=== PATIENT | female | born 1970 | race Caucasian/White ===

== ENCOUNTER 2017-02-18 05:20 | Inpatient (IN) | payer OTHER ==
[~2017-02-18] VITALS: Ht 160 cm; Wt 182.4 kg
[~2017-02-18 05:20] MED LIST: ALPRAZOLAM0.5 MG PO; ANTIDEPRESSANT PO; ARMOUR THYROID60 MG PO; BENZONATATE100 MG PO; CARVEDILOL25 MG PO; CEFTIN250 MG PO; CEPHALEXIN500 MG PO; CIPRO500 MG PO; CLINDAMYCIN HC300 MG PO; CLONIDINE HCL0.1 MG PO; COLACE100 MG PO; CYCLOBENZAPRINE10 MG PO; DOXYCYCLINE HY100 MG PO; ERGOCALCIF50000 UNIT PO; ESTRACE2 MG PO; FLOVENT DISKU250 MCG IH; FLOVENT HFA12 G1 INH; HYDROCODON-ACE1 EA10 PO; HYDROMORPHONE HC2 MG PO; IPRAT-ALBUT 0.5-3 ML INH; KLONOPIN2 MG PO; KLOR-CON M2020 MEQ PO; LAMICTAL200 MG PO; LASIX40 MG PO; LASIX80 MG PO; LEVOTHYROXINE75 MCG PO; MINIPRESS1 MG PO; MIRAPEX0.75 MG PO; MIRAPEX1.5 MG PO; NORCO 10-325 T1 EACH PO; NORCO 5-325 TA1 EACH PO; PAROXETINE HCL30 MG PO; PREDNISONE20 MG PO; PRILOSEC OTC20 MG PO; PROVENTIL HFA6.7 GM INH; QVAR8.7 G1 INH; ROBITUSSIN DAC PO; ROBITUSSIN100 MG/5 M PO; VENTOLIN HFA18 GM INH; VIIBRYD40 MG PO; VITAMIN D PO; VITAMIN D250000 UNIT PO; XANAX0.5 MG PO; ZITHROMAX250 MG PO; ZOFRAN ODT4 MG SL; [UNRECOGNIZED DRUG - OTHER] PO
[2017-02-18] MEDS ORDERED: PIOGLITAZONE HC15 MG PO (05:38)
[2017-02-18] MEDS ORDERED: CYMBALTA60 MG PO (05:39)
[2017-02-18] MEDS ORDERED: GLUCOPHAGE500 MG PO (05:40)
[2017-02-18] MEDS ORDERED: LIPITOR10 MG PO (05:40)
--- NOTE | 2017-02-18 07:37 | NUR ---
46 YR OLD FEMALE ADMITTED TO ROOM 129 FROM ER VIA STRETCHER. PT UP IN ROOM AND AMBULATED TO BATHROOM WITH STANDBY ASSIST AND REMAINS ON 4L PER NC. PT VOIDED 250 MLS CLEAR YELLOW URINE, AMBULATED TO BED WITH STANDBY ASSIST AND HOB ELEVATED. MONITOR ON AND VITAL SIGNS COMPLETED. PT C/O OF HEADACHE PAIN "12/08".
--- NOTE | 2017-02-18 08:35 | NUR ---
PT WITH HOB ELEVATED EATING REG BREAKFAST WITHOUT PROBLEMS. STATES NOT SLEEPING WELL LAST NIGHT AND WANTS TO SLEEP.
--- NOTE | 2017-02-18 08:47 | NUR ---
DR. STARKEY IN TO ASSESS PT AND TALK WITH HER CONCERNING THE PLAN OF CARE.
--- NOTE | 2017-02-18 09:52 | NUR ---
RT HERE AND NEB TX GIVEN, PT WITH AUDIBLE WHEEZES. DILTIAZEM 5MG IV PUSH GIVEN PER DR. ORDER AND DILTIAZEM GTT STARTED AT 5MG/HR. CARDIZEM 45MG PO GIVEN WITH A.M. MEDS ORDERED, PT AC WELL WITH SIPS OF WATER. SCD'S ON BILAT LOWER EXTREMITIES. OXYMASK ON WHILE PT SLEEPING, SATS 93% AND HOB ELEVATED 35 DEGREES.
--- NOTE | 2017-02-18 10:01 | NUR ---
R.T. NOTIFIED OF CONTINUED AUDIBLE WHEEZING WHILE SLEEPING, REQUESTING CPAP AT THIS TIME. HR 113, DILTIAZEM GTT INCREASED TO 10MG/HR.
--- NOTE | 2017-02-18 10:48 | NUR ---
PT UP TO BSC WITH ASSIST - VOIDED 625 MLS CLEAR YELLOW URINE. RETURNED TO BED WITH HOB ELEVATED. PT TALKING ON PHONE AT THIS TIME. HR 97 - 105.
--- NOTE | 2017-02-18 12:55 | NUR ---
RT HERE AND NEB TX STARTED, ASSESSMENT COMPLETED - PT STATES HEADACHE PAIN DECREASED TO "3/10". PT PLACED ON 4L PER NC, SATS 93%. LUNGS REMAIN WITH EXP WHEEZES AND RHONCHI THROUGHOUT. PT HAS BEEN RESTING WELL ON CPAP AND AWAKENS EASILY.
--- NOTE | 2017-02-18 13:00 | NUR ---
WAS CALLED BY STAFF IN CCU STATING THAT THE PT FRIENDS HAD BROUGHT IN HER CPAP AND THAT SHE WOULD BE NEEDING A NEW ONE THIS ONE IS REALLY KENNETH, TAPED TOGETHER AND NO FILTERS HAD BEEN CHANGED. INFORMED THEM THAT I WOULD LOOK INTO GETTING HER A NEW ONE.
[2017-02-18] MEDS ORDERED: METFORMIN HCL500 M1 PO (13:25)
--- NOTE | 2017-02-18 13:26 | NUR ---
PT AWAKE AND UP TO BSC WITH ONE PERSON ASSIST. PT VOIDED 300 MLS CLEAR YELLOW URINE. TRANSFERRED SELF TO MANOLO CHAIR AND IS EATING LUNCH WITHOUT PROBLEMS. 02 ON AT 4L PER NC. SATS 92%
[2017-02-18] MEDS ORDERED: OMEPRAZOLE20 MG PO (13:28)
--- NOTE | 2017-02-18 14:23 | NUR ---
HR 79-83 DILTIZEM GTT DECREASED TO 5MG/HR.
--- NOTE | 2017-02-18 14:53 | NUR ---
CARDIZEM 45MG PO GIVEN, DILTIAZEM GTT OFF AT THIS TIME. HR AFIB 72 BPM. PT REMAINS UP IN MANOLO CHAIR TALKING WITH FRIEND.
[2017-02-18] MEDS ORDERED: VYVANSE60 MG PO (16:14)
--- NOTE | 2017-02-18 16:15 | NUR ---
MED REC COMPLETE
--- NOTE | 2017-02-18 17:53 | NUR ---
1600 ASSESSMENT COMPLETED. PT RESTING IN MANOLO CHAIR WITH 02 92% ON 4L PER NC. LUNGS WITH EXP WHEEZES BILAT, PT WITH LOOSE COUGH AT TIMES. HEART RATE REMAINS IN AFIB, 70'S - 80'S. PT EATING DINNER WITHOUT PROBLEMS. NEW ORDERS RECEIVED AND 2 GM MG STARTED IV.
--- NOTE | 2017-02-18 19:11 | NUR ---
PT AMBULATED TO BATHROOM WITH ONE PERSON ASSIST, VOIDED 325 MLS CLEAR YELLOW URINE AND HAD MED SOFT,FORMED,BROWN STOOL. AMBULATED BACK TO BED WITH MINIMAL ASSIST AND IS RESTING WITH HOB ELEVATED & SCD'S ON BILAT. SATS 97% ON 4L PER NC HR 76 AND REMAINS IN AFIB.
--- NOTE | 2017-02-18 19:30 | NUR ---
PT ASSISTED BACK TO BED BY DAY HSROLF RN. REPORT GIVEN BY DAY SHIFT RN. PT RESTING IN BED NOW AT THIS TIME. ALL QUESTIONS ANSWERED. PT REMAINS ON 4L NC. PER REPORT LUNG SOUNDS REMAINS WHEEZY AND COARSE. WILL CONTINUE TO CLOSELY MONITOR. CALL LIGHT IN REACH.
--- NOTE | 2017-02-18 20:00 | NUR ---
PT SLEEPING RESTING WITH EYES CLOSED. WOKE PT AND SPOKE WITH HER REGUARDING MEDICATIONS SHE WILL RECIVE TONIGHT. PT IS AWARE OF CURRENT PLAN AND ON BOARD WITH CURRENT PLAN. PT WANTS TO WAIT TO TAKE MEDS FOR 30 MORE MINUTES. WILL GIVE MEDICATIONS AND CALL RT BACK TO ADMINISTER NEB TREATMENT AND PLACE PT ON CPAP.
--- NOTE | 2017-02-18 20:12 | EKG ---
[facility] [address] [place], [place] [address] Signed Atrial fibrillation with rapid ventricular response Abnormal ECG No previous ECGs available Confirmed by CAMERON STARKEY MD ([id number]) on 02/18/2017 8:12:19 PM Electronically Signed By: CAMERON STARKEY MD 02/18/172011 PATIENT NAME: DEANN JOSÉ SURAJ Electrocardiogram DATE OF : 66 PHYSICIAN: CAMERON STARKEY MD REPORT #: [id number] REPORT IS CONFIDENTIAL AND NOT TO BE RELEASED WITHOUT AUTHORIZATION
--- NOTE | 2017-02-18 21:00 | NUR ---
GAVE NIGHT TIME MEDICATIONS. PT IS READY FOR BREATHING TREATMENT AND CPAP TURNED ON. RT IN TO SEE PATIENT AND COMPLETE THESE TASKS. NO OTHER ISSUES AT THIS TIME. WILL CONTINUE TO MONITOR.
--- NOTE | 2017-02-18 23:00 | NUR ---
PT CALLED TO GET UP TO BATHROOM. PT REMOVED FROM CPAP AND PLACED ON 4L NC. PT TOLERATED WELL. PT BACK IN BED WITH NASAL CANUAL IN PLACE. PT WANTS TO CALL DAUGHTER BACK. WILL PLACE CPAP BACK ON WHEN PT IS FINISHED AND READY.
--- NOTE | 2017-02-18 23:30 | NUR ---
PT BACK ON [facility]OSPITALS CPAP MACHINE. PT TOELRATING WELL. CALL LIGHT IN REACH. WILL CONTINUE TO CLOSELY MONITOR.
--- NOTE | 2017-02-19 00:22 | NUR ---
RT IN TO ASSESS PT. PT ASKING FOR NEB TREATMENT. NEB TREATMENT GIVEN. PT LUNG SOUNDS REMAIN WHEEZY AND COARSE. WILL CONTINUE TO MONITOR.
--- NOTE | 2017-02-19 01:30 | NUR ---
IN TO PT ROOM FOR SCHEDULED MEDICATIONS. PT ASKED FOR TYLENOL FOR HEADACHE. PT STATES HEADACHE IS IMPROVING WITH TYLENOL. PLACED BACK ON CPAP. NO OTHER ISSUES AT THIS TIME. CALL LIGHT IN REACH.
--- NOTE | 2017-02-19 03:00 | NUR ---
PT RESTING IN BED AT THIS TIME ON CPAP MACHINE. PT TOLERATING WELL. WILL CONTINUE TO CLOSELY MONTIOR. CALL LIGHT IN REACH.
--- NOTE | 2017-02-19 05:08 | NUR ---
PT ASKED TO USE RESTROOM. ASSISTED PT UP TO BATHROOM ON 4L NC. PT TOLERATED WELL WITH SPO2 96%. PT HR WITH ACTIVITY 80- 110. PT ABLE TO WALK SELF TO BATHROOM. ASSISTED BACK TO BED. PT DOES NOT WANT CPAP MACHINE BACK ON AT THIS TIME. PT CURRENTLY ON 4L NC AT 99%. TURNED OXYGEN DOWN TO 3L NC AT THIS TIME. WILL CONTINUE TO MONITOR AND TITRATE NEEDED. CALL LIGHT IN REACH.
--- NOTE | 2017-02-19 06:30 | NUR ---
PT RESTING IN BED USING CELLPHONE. PT SPO2 96% ON 3L NC. TURNED OXYGEN DOWN TO 2.5L VIA NC. WILL CONTINUE TO CLOSELY MONITOR. PT ASKED FOR JELLO AND THE MENU TO ORDER BREAKFAST. CALL LIGHT IN REACH.
--- NOTE | 2017-02-19 08:05 | NUR ---
PT AWAKE AND ALERT X4. PT DENIES PAIN, NAUSEA, AND SOB AT THIS TIME. PT CHEERFUL AND COOPERATIVE.
--- NOTE | 2017-02-19 08:30 | NUR ---
PT UP OUT OF BED AMBULATING TO BATHROOM INDEPENDENTLY.
--- NOTE | 2017-02-19 08:45 | NUR ---
PT WASHED FACE, REFUSED ORAL CARE AT THIS TIME, REQUIRED SOME ASSISTANCE WITH TORITO CARE. PT THEN AMBULATED TO CHAIR. LINENS ON BED CHANGED.
--- NOTE | 2017-02-19 08:54 | NUR ---
TURNED PT O2 DOWN TO 2L FROM 2.5L VIA NASAL CANULA
--- NOTE | 2017-02-19 09:15 | NUR ---
PT GIVEN FLU VACCINE IN LEFT UPPER ARM, CONSENT FORM IN THE CHART.
--- NOTE | 2017-02-19 09:26 | NUR ---
PT SITTING UP IN CHAIR EATING BREAKFAST. PT DENIES NAUSEA AND SOB AT THIS TIME. PT IS ALERT AND ORIENTED X4. PT C/O 6/10 PAIN IN BILAT KNEES, 500 MG PO TYLENOL GIVEN. PT ABLE TO AMBULATE INDEPENDENTLY TO BATHROOM, SOME ASSISTANCE REQUIRED WITH TORITO CARE.
--- NOTE | 2017-02-19 10:05 | NUR ---
PT ASSISTED BACK TO BED. SALES SUPPORT ADMINISTRATOR IN ROOM TO PREFORM ECHO. PT AC WELL.
--- NOTE | 2017-02-19 11:02 | NUR ---
CPAP PLACED ON PT PER PT REQUEST. PT STATES "I REALLY NEED A NAP". CALL LIGHT WITHIN REACH. PT DENIES PAIN AT THIS TIME.
--- NOTE | 2017-02-19 12:50 | NUR ---
IV SITE INTACT, NO REDNESS OR SWELLING NOTED, FLUSHES EASILY, PT DENIES PAIN WITH FLUSH. PT VITALS WNL, PT STILL IN RATE CONTROLED AFIB. PT DENIES NAUSEA AND SOB AT THIS TIME, PT STATES PAIN IS "FINE". PT TALKITIVE AND POLITE. WORE CPAP MASK UNTIL 1245. PT LOOKING AT LUNCH MENUE.
--- NOTE | 2017-02-19 15:49 | NUR ---
PT BACK TO ROOM FROM SHOWER. HAIR SHAMPOOED AND ASSISTED PT WITH SKIN CARE. PT SAT IN SHOWER CHAIR FOR SHOWER. ABLE TO STAND WITH ASSISTANCE, AMBULATES WITH STAND BY ASSIST. GOWN CHANGED, CLEAN SOCKS PLACED ON PT. PT AC ACTIVITY WELL.
--- NOTE | 2017-02-19 17:00 | NUR ---
FULL REPORT GIVEN TO MARVIN ALVAREZ.
--- NOTE | 2017-02-19 17:01 | NUR ---
FAXED CHART NOTES TO [facility] WHERE THE PT GETS HER DURABLE MED SUPPLIES FROM INCLUDING FACESHEET, H AND P, PROG NOTE, AND RX FOR A NEW MACHINE. RECIEVED A CALL FROM IN HOME THAT THEY FOUND SHE DID INDEED GET A NEW MACHINE IN 2013 AND ONE IN 2009. AND WAS THIS THE MACHINE FROM 2009 OR 2013. I WENT TO CCU TO TALK WITH PT AND SHE STATED THAT HER MACHINE WORKED JUST FINE AND SHE STILL USES IT ALL THE TIME BUT SHE JUST HADN'T GOTTEN ANY NEW TUBING, MASKS, OR FILTERS IN OVER A YEAR. TUBING AND MASK ARE TAPED TOGETHER WITH SEVERAL DIFFERENT TYPES OF TAPE AND THE FILTER IN THE MACHINE IS BROWN, THE MACHINE ITSELF IS COVERED IN DUST. INFORMED THE PT OF THE NEED TO KEEP THESE CLEAN AND UP TO DATE. ATTEMPTED EDUCATING PT AND ALL SHE WOULD SAY IS I KNOW THAT, I KNOW. I CALLED [facility] AND REEXPLAINED EXACTLY WHAT I NEED--TUBING, MASK, AND FILTER, AND WRITTEN DIRECTIONS FOR HER FOR CLEANING AND CARING FOR THIS MACHINE. PT STATED YEAH I HAD THAT BUT IT WAS A LONG TIME LIKE ALMOST 10 YEARS IT SEEMS LIKE.
--- NOTE | 2017-02-19 17:10 | NUR ---
PT TRANSFERED TO MED-SURG ROOM 125 WITH ASSISTANCE FROM KORY GLEASON.
--- NOTE | 2017-02-19 17:18 | NUR ---
PT RECEIVED FROM CCU. REPORT RECEIVED FROM CCU RN. PT RESTING IN BED. PT LUNG FEEL TIGHT, DENIES SOB, LUNG SOUNDS WITH EXPIRATORY WHEEZE THROUGHOUT DIMINISHED BASES. HR IRREGULAR. PT DENIES NEEDS AT THIS TIME. PT PLANNING TO ORDER DINNER.
--- NOTE | 2017-02-19 18:42 | NUR ---
PT RECEIVED CLAY CCU. PT ON 2L NC, LUNG SOUNDS WHEEZY THROUGHOUT. PT TOLERATING ADA DIET, BLOOD GLUCOSE 202 AT DIINER, GIVEN 3 UNITS SS INSULIN. PT UP ITH 1 PA TO AMBULATE. PT SALINE LOCKED. PT WITH MARGINAL URINE OUTPUT PER REPORT.
--- NOTE | 2017-02-19 19:15 | NUR ---
REPORT RECV'D FROM CHATO ALVAREZ. IN TO MEET PT, PT AWAKE WATCHING TV. CPAP IN ROOM FOR PT USE. PT ON 02 @ 2L. SL IN PLACE. PT IS STANDBY ASSIST TO BATHROOM. PT STATES SHE BELIEVES SHE WILL BE GOING HOME TOMORROW. NO FURTHER NEEDS AT THIS TIME. CALL LIGHT IN REACH.
--- NOTE | 2017-02-19 21:15 | NUR ---
IN TO SEE PT, PT AWAKE. ASSESSMENT DONE, PM MEDICATIONS GIVEN. PT STATES SHE WILL CALL WHEN SHE IS READY FOR CPAP PLACEMENT. NO FURTHER NEEDS AT THIS TIME. CALL LIGHT IN PLACE.
--- NOTE | 2017-02-20 00:34 | NUR ---
IN TO CHECK ON PT, PT APPEARS TO BE SLEEPING. CPAP IN PLACE. RR EVEN AT 16 AND UNLABORED. NO APPARENT DISTRESS NOTED. CALL LIGHT IN PLACE.
--- NOTE | 2017-02-20 01:15 | NUR ---
PT CALLED, IN TO CHECK ON PT. CPAP REMOVED, PT UP TO BATHROOM WITH STANDBY ASSIST. TOLERATED WELL. ASSISTED BACK TO BED. CPAP AND SCDS PLACED. NO FURTHER NEEDS AT THIS TIME. CALL LIGHT WITH IN REACH.
--- NOTE | 2017-02-20 05:14 | NUR ---
PT HAS HAD UNEVENTFUL SHIFT, SLEPT WELL. CPAP IN PLACE. PT ON O2 @ 2L PER NC WHILE AWAKE. LUNG SOUND UNCHANGED. PT ON ADA DIET. CBG 226. SL. VOIDING QS. PT 1 PERSON STANDBY ASSIST TO BATHROOM, TOLERATES WELL.
--- NOTE | 2017-02-20 07:27 | NUR ---
RECIEVED BEDSIDE REPORT FROM KIM TORRES AND KIM SEAY. PT AWAKE AND ALERT IN CHAIR. PT HAS O2 AT 2L VIA NASAL CANULA. NO COMPLAINTS AT THIS TIME.
[2017-02-20] MEDS ORDERED: IPRAT-ALBUT 0.5-3 ML INH (10:25)
[2017-02-20] MEDS ORDERED: PREDNISONE20 MG PO (10:25)
[2017-02-20] MEDS ORDERED: DILTIAZEM 24HR240 M3 PO (10:26)
[2017-02-20] MEDS ORDERED: WARFARIN SODIUM5 MG PO (10:29)
--- NOTE | 2017-02-20 11:31 | NUR ---
CONSULT RECEIVED TO PROVIDE DIET EDUCATION WHILE ON COUMADIN. PATIENT JUST STARTED ON COUMADIN. I EXPLAINED THE DARK GREEN VEGGIES THAT ARE HIGHEST IN VITAMIN K - SHE DOESN'T EAT ANY OF THEM. I POINTED OUT THE MODERATELY-HIGH VITAMIN K VEGGIES AND SHE DOESN'T EAT ANY OF THOSE EITHER. SHE DOES TAKE A MVI CURRENTLY. SHE DOES NOT TAKE ANY HERBAL SUPPLEMENTS. SINCE SHE DOES NOT NORMALLY EAT THE LEAFY GREEN/DARK GREEN VEGGIES LISTED, SHE WILL DO FINE. HANDOUT PROVIDED. MY OFFICE # PROVIDED WELL IN CASE FUTURE QUESTIONS ARISE.
--- NOTE | 2017-02-20 11:53 | NUR ---
PT OUT OF THE SHOWER, TOLERATED WELL. NYSTATIN POWDER APPLIED TO SKIN FOLDS. PT VERBALIZED UNDERSTANDING OF COUMADIN AND COUMADIN TEACHING BY DIETIAN. PT GETTING DRESSED AND READY TO BE D/C. SHE WILL EAT LUNCH HERE PRIOR TO D/C.
--- NOTE | 2017-02-20 12:23 | NUR ---
PATIENT TOOK A SHOWER BEFORE DISCHARGING.
[2017-06-06] MEDS ORDERED: QVAR8.7 G1 (17:00)
[2017-06-06] MEDS ORDERED: QVAR8.7 G1 INH (17:00)
== END 2017-02-20 13:02 | disposition home or self-care (01) | DRG 202 ==
LOC: ED 05:20 → CCU 07:02 → MS 02-19 17:10
PROVIDERS: ADMIT Internal Medicine
DX: J45.41 Moderate persistent asthma with (acute) exacerbation (principal); J96.01 Acute respiratory failure with hypoxia; E66.2 Morbid (severe) obesity with alveolar hypoventilation; Z68.45 Body mass index [BMI] 70 or greater, adult; I48.91 Unspecified atrial fibrillation; I10 Essential (primary) hypertension; E11.9 Type 2 diabetes mellitus without complications; Z79.4 Long term (current) use of insulin; K21.9 Gastro-esophageal reflux disease without esophagitis; G47.33 Obstructive sleep apnea (adult) (pediatric); F32.9 Major depressive disorder, single episode, unspecified; G89.4 Chronic pain syndrome; Z79.891 Long term (current) use of opiate analgesic; E03.9 Hypothyroidism, unspecified; E78.5 Hyperlipidemia, unspecified; G25.81 Restless legs syndrome; Z72.0 Tobacco use; Z99.81 Dependence on supplemental oxygen
CPT/HCPCS: 36600; 71010; 80053; 82803; 83735; 83880; 85025; 85610; 90674; 93005; 93010; 93306; 94640; 94645; 94660; 94668; 94762; 96374; 99285; G0008; J1650; J2930; J3475

== ENCOUNTER 2017-03-28 20:33 | Emergency (ER) | payer OTHER ==
[~2017-03-28] VITALS: Ht 160 cm; Wt 175.1 kg
[~2017-03-28 20:33] MED LIST changes: +CYMBALTA60 MG PO; +DILTIAZEM 24HR240 M3 PO; +GLUCOPHAGE500 MG PO; +LIPITOR10 MG PO; +METFORMIN HCL500 M1 PO; +OMEPRAZOLE20 MG PO; +PIOGLITAZONE HC15 MG PO; +VYVANSE60 MG PO; +WARFARIN SODIUM5 MG PO
[2017-03-28] MEDS ORDERED: CYCLOBENZAPRINE10 MG PO (21:49)
[2017-03-28] MEDS ORDERED: DICLOFENAC SODI75 MG PO (21:49)
[2017-06-06] MEDS ORDERED: QVAR8.7 G1 INH (17:00)
[2017-06-06] MEDS ORDERED: QVAR8.7 G1 (17:00)
== END 2017-03-28 22:05 | disposition home or self-care (01) ==
LOC: ED 20:33
DX: M54.5 Low back pain (principal); J45.909 Unspecified asthma, uncomplicated; E66.01 Morbid (severe) obesity due to excess calories; F41.9 Anxiety disorder, unspecified; F32.9 Major depressive disorder, single episode, unspecified; E03.9 Hypothyroidism, unspecified; F17.200 Nicotine dependence, unspecified, uncomplicated; Z98.84 Bariatric surgery status; Z90.710 Acquired absence of both cervix and uterus; Z88.0 Allergy status to penicillin; Z88.2 Allergy status to sulfonamides; Z88.5 Allergy status to narcotic agent; Z79.899 Other long term (current) drug therapy; Z79.84 Long term (current) use of oral hypoglycemic drugs
CPT/HCPCS: 81001; 99283

== ENCOUNTER 2017-06-06 15:10 | Observation (INO) | payer OTHER ==
[~2017-06-06] VITALS: Ht 160 cm; Wt 189.2 kg
--- OUTSIDE RECORDS SUMMARY | ~2017-06-06 | XMS | Clinical Summary ---
Demographics + + + | Address | [address] | | | [place] [address] | + + + | Home Phone | | + + + | Preferred Language | Unknown | + + + | Marital Status | Single | + + + | Taoist Affiliation | NON | + + + [...] | Unavailable | + + + Support +------+ +---------+ + | Name | Relationship | Address | Phone | +------+ +---------+ + ECON | Unknown | Unavailable | +------+ +---------+ + Care Team Providers + +------+-------+ | Care Dietary Assistant Name | Role | Phone | + +------+-------+ | Bassam Ross DO | PP | tel | + +------+-------+ Source Comments SHERIE is fully live on both [facility] and [facility].Formerly [facility] Allergies + + + + + + [...] | | | + + +---------+---------+------+------+-------+ | thyroid (ARMOUR | Take 60 mg by mouth | | | | | Activ | | THYROID) 60 mg oral | once daily. | | | | | e | | tablet tablet | | | | | | | + + +---------+---------+------+------+-------+ | cloNIDine | Take 0.3 mg by mouth | | | | | Activ | | (CATAPRES) 0.1 mg | two times daily. | | | | | e | | oral tablet | | | | | | | + + +---------+---------+------+------+-------+ | CARVEDILOL ORAL | Take 50 mg by mouth | | | | | Activ | | | two times daily. | | | | | e | + + +---------+---------+------+------+-------+ | Pramipexole | Take 0.75 mg by | | | | | Activ | | (MIRAPEX) 0.75 mg | mouth two times | | | | | e | | oral tablet | daily. | | | | | | + + +---------+---------+------+------+-------+ | ALPRAZolam 0.5 mg | Take by mouth. | | | | | Activ | | oral tablet | | | | | | e | + + +---------+---------+------+------+-------+ | cyclobenzaprine 10 | Take 10 mg by mouth | | | | | Activ | | mg oral tablet | three times daily as | | | | | e | | | needed. Do not use | | | | | | | | longer than 2-3 | | | | | | | | weeks. | | | | | | + + +---------+---------+------+------+-------+ | albuterol 90 | Inhale every four | | | | | Activ | | mcg/actuation | hours as needed. | | | | | e | | inhalation HFA | | | | | | | | aerosol inhaler | | | | | | | + + +---------+---------+------+------+-------+ | acetaminophen 325 | Take 2 tablets by | 100 | 0 | 08/2 | | Activ | | mg oral tablet | mouth every six | tablet | | 7/20 | | e | | | hours as needed for | | | 15 | | | | | pain. Cut tablet | | | | | | | | into small pieces. | | | | | | | | Do not crush. | | | | | | + + +---------+---------+------+------+-------+ | HYDROmorphone 4 mg | Take 0.5-1 tablets | 75 | 0 | 09/1 | | Activ | | oral tablet | by mouth every four | tablet | | 0/20 | | e | | | hours as needed for | | | 15 | | | | | severe pain. | | | | | | + + +---------+---------+------+------+-------+ | fluconazole | Take 1 tablet by | 1 | 0 | 09/1 | | Activ | | (DIFLUCAN) 200 mg | mouth once daily. | tablet | | 7/20 | | e | | oral tablet | | | | 15 | | | + + +---------+---------+------+------+-------+ | HYDROmorphone | Take 1 tablet by | 50 | 0 | 01/30 | | Activ | | (DILAUDID) 4 mg oral | mouth every four | tablet | | 12/18 | | e | | tablet | hours as needed for | | | 15 | | | | | severe pain. | | | | | | + + +---------+---------+------+------+-------+ | ergocalciferol | Take 1 capsule by | 52 | 0 | / | | Activ | | 50,000 unit oral | mouth every seven | capsule | | 12/18 | | e | | capsuleIndications: | days. Indications: | | | 16 | | | | Vitamin D Deficiency | VITAMIN D DEFICIENCY | | | | | | | (High Dose Therapy) | (HIGH DOSE THERAPY) | | | | | | + + +---------+---------+------+------+-------+ | cyanocobalamin, | Place 500 mcg under | 30 | 11 | 10/30 | | Activ | | vitamin B-12, 500 | tongue once daily. | tablet | | 5/20 | | e | | mcg sublingual | Indications: | | | 16 | | | | tablet, | Prevention of | | | | | | | sublingualIndication | Vitamin B12 | | | | | | | s: Prevention of | Deficiency | | | | | | | Vitamin B12 | | | | | | | | Deficiency | | | | | | | + + +---------+---------+------+------+-------+ | ped multivit | Chew and swallow 2 | 60 | 11 | 10/30 | | Activ | | #43-iron fumarate | tablets once daily. | tablet | | 10/18 | | e | | (FLINTSTONES | | | | 16 | | | | COMPLETE, IRON,) 18 | | | | | | | | mg iron oral | | | | | | | | tablet,chewable | | | | | | | + + +---------+---------+------+------+-------+ | calcium citrate | Take 2 tablets by | 180 | 11 | 10/30 | | Activ | | 200 mg elemental | mouth three times | tablet | | 20 | | e | | (950 mg total salt) | daily. | | | 16 | | | | oral tablet | | | | | | | + + +---------+---------+------+------+-------+ | ergocalciferol | Take 1 capsule by | 12 | 0 | 10/30 | | Activ | | 50,000 unit oral | mouth every seven | capsule | | 520 | | e | | capsule | days. | | | 16 | | | + + +---------+---------+------+------+-------+ | omeprazole 20 mg | Take 1 tablet by | 30 | 11 | 10/30 | | Activ | | oral tablet,delayed | mouth once daily. | tablet | | 10/18 | | e | | release | Indications: | | | 16 | | | | (/EC)Indications: | HEARTBURN | | | | | | | Heartburn | | | | | | | + + +---------+---------+------+------+-------+ Active Problems + + + | Problem | Noted Date | + + + | S/P laparoscopic sleeve gastrectomy | 02/25/2016 | + + + | Vitamin D deficiency disease | 02/25/2016 | + + + | Morbid obesity with BMI of 60.0-69.9, adult (HCC) | 02/25/2016 | + + + | B12 nutritional deficiency | 11/14/2015 | + + + | Abnormal intestinal absorption | 11/14/2015 | + + + | Vitamin D deficiency | 11/14/2015 | + + + | Gastroesophageal reflux disease | 11/14/2015 | + + + | S/P laparoscopic sleeve gastrectomy | 08/08/2015 | + + + | ANNABEL on CPAP | 08/08/2015 | + + + | Essential hypertension | 08/08/2015 | + + + | Type 2 diabetes mellitus without complication (HCC) | 08/08/2015 | + + + | Morbid obesity (HCC) | 08/08/2015 | + + + | Chronic pain | 08/08/2015 | + + + | Vitamin D deficiency disease | 08/08/2015 | + + + | Vitamin B 12 deficiency | 08/08/2015 | + + + | Physical deconditioning | 08/08/2015 | + + + | S/P laparoscopic sleeve gastrectomy | 06/26/2015 | + + + | Physical deconditioning | 06/26/2015 | + + + | ANNABEL (obstructive sleep apnea) | 06/26/2015 | + + + | Chronic pain | 06/26/2015 | + + + | Morbid obesity (HCC) | 06/26/2015 | + + + | Morbid obesity (HCC) | 02/15/2015 | + + + | Diabetes mellitus type 2, diet-controlled (HCC) | 02/15/2015 | + + + | S/P laparoscopic sleeve gastrectomy | 02/15/2015 | + + + | S/P laparoscopic sleeve gastrectomy | 02/15/2015 | + + + | Morbid obesity (HCC) | 02/15/2015 | + + + | ANNABEL on CPAP | 02/15/2015 | + + + | Benign essential HTN | 02/15/2015 | + + + | Type 2 diabetes mellitus without complication (HCC) | 02/15/2015 | + + + | Vaginal yeast infection | 02/15/2015 | + + + | S/P laparoscopic sleeve gastrectomy | 02/15/2015 | + + + | Morbid obesity (HCC) | 02/15/2015 | + + + | ANNABEL on CPAP | 02/15/2015 | + + + | Benign essential HTN | 02/15/2015 | + + + | Type 2 diabetes mellitus without complication (HCC) | 02/15/2015 | + + + | Vaginal yeast infection | 02/15/2015 | + + + | CPAP/BiPAP dependence | 02/07/2015 | + + + | Essential hypertension, benign | 02/07/2015 | + + + | ANNABEL (obstructive sleep apnea) | 02/07/2015 | + + + | Posttraumatic stress disorder | 10/11/2013 | + + + | Major depressive disorder, recurrent episode, moderate ([facility]) | 10/11/2013 | + + + | Morbid obesity with BMI of 70 and over, adult ([facility]) | 09/22/2013 | + + + | Sleep apnea | 09/22/2013 | + + + | Chronic pain | 09/22/2013 | + + + | Asthma | 09/22/2013 | + + + | Nephrotic syndrome | 09/22/2013 | + + + | Hx of laparoscopic gastric banding | 09/22/2013 | + + + Family History + + +------+ + | Medical History | Relation | Name | Comments | + + +------+ + | Diabetes | Father | | | + + +------+ + | Heart Disease | Father | | [place] 78 | + + +------+ + | [...] Pressure | 141/83 | 02/25/2016 3:17 PM PDT | + + + + | Pulse | 119 | 02/25/2016 3:17 PM PDT | + + + + | Temperature | 36.8 C (98.2 F) | 02/25/2016 3:17 PM PDT | + [...] (384 lb 6.4 | 02/25/2016 3:17 PM PDT | | | oz) | | + + + + | Height | 160 cm (5' 3") | 02/25/2016 3:17 PM PDT | + + + + | Body Mass Index | 68.09 | 02/25/2016 3:17 PM PDT | + + + + Plan of Treatment +--------+---------+ + + + | Date | Type | Specialty | Care Team | Description | +--------+---------+ + + + | 06/16/ | Office | | Mihaela Villa, | | | 2017 | Visit | | JAYJAY [address] | | | | | | [address] | | | | | | [place], [place] | | | | | | [address] | | +--------+---------+ + + + | 06/16/ | Office | | Hansa Hawkins, | | | 2017 | Visit | | SUBHA [address] | | | | | | [place], [place] | | | | | | [address] | | | | | | [phone] | | | | | | | | +--------+---------+ + + + + + + + + | Health Maintenance | Due Date | Last Done | Comments | + + + + + | INFLUENZA VACCINE | | 03/10/2016, 03/01/2015, | | | (FLU SHOT) | 7 | 02/21/2013 | | + + + + + [...] | Dianelys De Leon | | | 2017 | C60A / | | Dori Reed MD | | n | | | | | | | | | | | | /[id number] | | | | | | | | 329 | + +------+--------+ +--------+--------+--------+ | Dion Deraslanted: Qty: | | N/A: | | | 08/29/ | [id number] | | 2 on 02/07/2015 by Dianelys Reed | | | 2017 | C60A / | | Dori Ferris MD | | n | | | | | | | | | | | | /[id number] | | | | | | | | 327 | + +------+--------+ +--------+--------+--------+ Results Not on filefrom Last 3 Months
[~2017-06-06 15:10] MED LIST changes: +DICLOFENAC SODI75 MG PO
[2017-06-06] MEDS ORDERED: DESVENLAFAXINE50 M2 PO (16:47)
[2017-06-06] MEDS ORDERED: DILTIAZEM 24HR300 M1 PO (16:48)
[2017-06-06] MEDS ORDERED: MINIPRESS1 MG PO (16:58)
[2017-06-06] MEDS ORDERED: QVAR8.7 G1 INH ×2 (17:00)
--- NOTE | 2017-06-06 20:30 | NUR ---
PT SITTING UP IN RECLINER EATING POPCYCLE. IN GOOD SPIRITS, ENCOURAGED TO ELEVATE LEGS, WATCHING TV. CALL LIGHT IN EASY REACH.
--- NOTE | 2017-06-06 21:00 | NUR ---
PT UP IN ROOM INDEP, HS CARES DONE, SCHEDULED MEDS TAKEN, MAG INFUSING. EATING BAG OF POTATOE CHIPS.DISCUSSED ADA DIET, PT STATES SHE FOLLOWS IT AND HAS ASKED DOCTOR TO CHECK HER HGA1C IN THE MORNING. DENIES FURTHER NEEDS. HRIR 95-105.
--- NOTE | 2017-06-06 23:00 | NUR ---
PT IS RESTING QUIETLY ON BED WEARING BIPAP. HRIR 90'S. CALL LIGHT IN EASY REACH.
--- NOTE | 2017-06-07 01:38 | NUR ---
PT AWAKE, WALKING IN HALLWAY, UNABLE TO SLEEP DUE TO MUSCLE SPASMS IN LEGS, ASKING IF SHE CAN HAVE FLEXERIL. STATES SHE HAS TO TAKE IT AT HOME. CALL PLACED TO DR STARKEY AND HE GAVE ORDER FOR HER TO HAVE FLEXERIL 10MG PO Q8HRS PRN.
--- NOTE | 2017-06-07 04:31 | NUR ---
PATIENT RESTING COMFORTABLY IN BED, BREATHING IS EVEN AND UNLABORED ON CPAP. CALL LIGHT WITHIN REACH.
--- NOTE | 2017-06-07 05:30 | NUR ---
PT IS INDEP IN ROOM, SLEEP INTERMITANT DUE TO LEG SPASMS, RECIEVED ORDER FOR FLEXERIL AND PT SLEPT WELL AFTER. TELE #9 HRIR 70-80 ASLEEP, 90-105 AWAKE, SOME ANXIETY AND TEARFUL EARLY IN SHIFT, ENC TO KEEP LEGS ELEVATED WHEN SITTING IN CHAIR, 2+ EDEMA LES, RED SCALING SKIN, STATES SHE HAS CHRONIC LYPHEDEMA. DOXYCYCLINE FOR CELLULITIS ORDERED.NON COMPLIANT WITH DIET. COOPERTIVE AND PLEASANT.
--- NOTE | 2017-06-07 07:16 | NUR ---
RECIEVED BEDSIDE REPORT FROM RAUL Ferris RN. PT DENIED NEEDS AT THIS TIME.
--- NOTE | 2017-06-07 07:30 | NUR ---
PT WAS IN BED, SHE SAID SHE WOULD ORDER HER OWN BREAKFAST, AND THEN NEEDED TO USE THE RESTROOM.
--- NOTE | 2017-06-07 08:06 | NUR ---
PT SITTING UP IN RECLINER, LEGS ELEVATED, EATING BREAKFAST.
--- NOTE | 2017-06-07 08:53 | NUR ---
PATIENT UP TO AMBULATE IN HALLWAY. HR HIGH 140. CALL TO CCU TO PASS THIS ALONG TO DR. STARKEY. CALL BACK FROM CCU THAT DR. STARKEY WANTS HER MEDICATIONS GIVEN, WAIT 2 HOURS AND THEN WALK AGAIN.
--- NOTE | 2017-06-07 09:23 | NUR ---
PT WAS IN CHAIR, I DID VITALS, SHE NEEDD NO OTHER ASSISTANCE.
--- NOTE | 2017-06-07 10:38 | NUR ---
PT UP TO BATHROOM, NOTED HR UP TO 144, CHECKED ON PT, WHO WAS SITTING ON TOILET, PT DENIED CHEST PAIN OR PRESSURE. PT ASSISTED BACK TO BED WITH STANDBY ASSIST. PT C/O 6/10 PAIN TO KNEES, 7/10 PAIN TO BACK, GAVE PRN ACETAMINOPHEN 500 MG PO AND PRN FLEXARIL 10 MG PO. PT RESTING IN BED.
--- NOTE | 2017-06-07 10:42 | NUR ---
PT'S HR DOWN TO 90-94 PER TELEMETRY NOW THAT PT IS AT REST IN BED.
[2017-06-07] MEDS ORDERED: DOXYCYCLINE HY100 MG PO (11:44)
[2017-06-07] MEDS ORDERED: CARDIZEM LA360 MG PO (11:48)
[2017-06-07] MEDS ORDERED: METFORMIN HCL1000 MG PO (11:49)
[2017-06-07] MEDS ORDERED: WARFARIN SODIUM5 MG PO (11:51)
--- NOTE | 2017-06-07 12:15 | NUR ---
THIS RN AND KAI, PHARMACIST IN ROOM WITH PT. PT IS DISCHARGING TO HOME AFTER SHE TAKES CARDIZEM AT 1300. IV D/C'D WNL. KAI, PHARMACIST GIVING PT EDUCATION REGARDING MEDICATIONS THAT SHE WILL DISCHARGE ON.
--- NOTE | 2017-06-07 13:39 | NUR ---
PT WAS GETTING READY TO DC HOME, WILL DO DC VITALS WHEN HER RIDE GETS HERE.
--- NOTE | 2017-06-08 23:47 | EKG ---
[facility] [address] [facility] [place] [address] Signed Atrial fibrillation with rapid ventricular response Low voltage QRS Abnormal ECG When compared with ECG of 18-FEB-2017 06:03, No significant change was found Confirmed by CAMERON STARKEY MD ([id number]) on 06/08/2017 11:46:54 PM Electronically Signed By: CAMERON STARKEY MD 06/08/17 2347 PATIENT NAME: DEANN JOSÉ SURAJ Electrocardiogram DATE OF : 66 PHYSICIAN: CAMERON STARKEY MD REPORT #: [id number] REPORT IS CONFIDENTIAL AND NOT TO BE RELEASED WITHOUT AUTHORIZATION
[2017-08-16] MEDS ORDERED: EMVERM100 MG PO (22:24)
[2017-08-16] MEDS ORDERED: ONDANSETRON ODT4 MG SL (22:24)
[2017-09-01] MEDS ORDERED: COUMADIN5 MG PO (15:14)
== END 2017-06-07 14:05 | disposition home or self-care (01) ==
LOC: ED 15:10 → MS 15:12
PROVIDERS: ADMIT Internal Medicine
DX: I48.91 Unspecified atrial fibrillation (principal); L03.115 Cellulitis of right lower limb; E66.01 Morbid (severe) obesity due to excess calories; Z68.45 Body mass index [BMI] 70 or greater, adult; K21.9 Gastro-esophageal reflux disease without esophagitis; J45.40 Moderate persistent asthma, uncomplicated; G47.33 Obstructive sleep apnea (adult) (pediatric); E03.9 Hypothyroidism, unspecified; G25.81 Restless legs syndrome; F41.9 Anxiety disorder, unspecified; E11.9 Type 2 diabetes mellitus without complications; Z66 Do not resuscitate; Z88.5 Allergy status to narcotic agent; Z88.0 Allergy status to penicillin; Z88.2 Allergy status to sulfonamides; Z79.51 Long term (current) use of inhaled steroids; Z79.899 Other long term (current) drug therapy; Z79.84 Long term (current) use of oral hypoglycemic drugs; Z79.1 Long term (current) use of non-steroidal anti-inflammatories (NSAID)
CPT/HCPCS: 36415; 71046; 80053; 81001; 83036; 83735; 84484; 85025; 85610; 93005; 93010; 94640; 96365; 96366; 96372; 96374; 96375; 99285; G0378; J1650; J3475

== ENCOUNTER 2017-08-04 12:52 | Inpatient (IN) | payer OTHER ==
[~2017-08-04] VITALS: Ht 160 cm; Wt 204.1 kg
--- OUTSIDE RECORDS SUMMARY | ~2017-08-04 | XMS | Encounter Summary ---
Demographics + + + | Address | [address] | | | [place] [address] | + + + | Home Phone | | + + + | Preferred Language | Unknown | + + + | Marital Status | Single | + + + | Bahai Affiliation | NON | + + + | Race | White | + + + | Ethnic Group | Not or | + + + Author + + + | Author | [facility] | + + + | Organization | [facility] | + + + | Address | Unknown | + + + | Phone | Unavailable | + + + Support + + +---------+ + | Name | Relationship | Address | Phone | + + +---------+ + | Jordan Aguirre | ECON | Unknown | Unavailable | + + +---------+ + Care Team Providers + +------+ + | Care Microsoft Office Instructor Name | Role | Phone | + [...] | | | | | type | [address] | [address] | | | | | Gastroesopha | Phone: | Phone: | | | | | geal reflux | [phone] | [phone] | | | | | disease, | Fax: | Fax: | | | | | esophagitis | [phone] | [phone] | | | | | presence not [...] | | | | Sleep apnea, | [place], | Physicians | | | | | unspecified | [place] | Pavilion | | | | | type | [address] | Physicians | | | | | Gastroesopha | Phone: | Pavilion | | | | | geal reflux | [phone] | [place], [place] | | | | | disease, | Fax: | [address] | | | | | esophagitis | [phone] | Phone: | | | | | presence not | | [phone] | | | | | specified | | Fax: | | | | | Vitamin D | | [phone] | | | | | deficiency | [...] | | | | | | | [address] | | | | | | | for Health | | | | | | | and Healing, | | | | | | | 6th floor | | | | | | | [place], [place] | | | | | | | [address] | | | | | | | Phone: | | | | | | | [phone] | | | | | | | Fax: | | | | | | | [phone] | + +--------+ + + + + Encounter Details +--------+---------+ + + + | Date | Type | Department | Care Team | Description | +--------+---------+ + + + | 06/16/ | Office | Digestive Health | Hansa Hawkins, | S/P laparoscopic | | 2018 | Visit | Center at [facility] 6th | AGACNP [address] | sleeve gastrectomy | | | | Floor [address] | Ave [place], [place] | (Primary Dx); | | | | Ave Mailcode: CH4S | [phone] | Essential | | | | [facility] | | hypertension, | | | | and Healing, 6th | | benign; Sleep apnea, | | | | floor [place], [place] | | unspecified type; | | | | [address] | | Gastroesophageal | | | | [...] | | | | adult ([facility]); | | | | | | Diabetes mellitus | | | | | | type 2, | | | | | | diet-controlled | | | | | | ([facility]) | +--------+---------+ + + + Social [...] PM PST-start journaling food intake again, download FanBridge samuel. -make appt with Mihaela for nutritional [...] a "partial sleeve". Activity: Walking daily, with gnosticism friends. Fluids: getting 64 oz fluid daily. [...] echo and chest xray findings. Followed by community services manager in [place]. Shortness of breath Thyroid disease Past Surgical History Procedure Laterality Date C section 1998 Tonsillectomy 1996 Knee surgery 1996 Gastric banding 2004, 2007, 2011 Skin and subcutaneous tissue surgery 2006 Foot surgery 2009 - 2010 3x Hysterectomies, vaginal 2009 Appendectomy for ruptured appendix with abscess 2012 Gallbladder surgery 2008 Laparotomy 07/2014 Laparoscopic sleeve gastrectomy 02/07/2015 [facility] Brianna Social History Social History Marital [...] sinus rhythm. Normal ECG Records reviewed from [facility] (see media tab): Echocardiogram 11/18/2013: 1. Sinus [...] There is no pericardial effusion.21. No mass [id number]. Po or visualization. Definity was used to opacify the left ventricular chamber and improve deli neation of the endocardial border. Family History Problem Relation Diabetes Father Hypertension Mother Obesity Mother Hypertension Father Heart Disease Father [place] 78 Allergies Allergies Allergen Reactions Advair Diskus [...] is having daily. -I suggested making another valet manager appt for next month to discuss possible [...] to plan and will call and/or send Mobile [employer] message if any issues. Start time 314, end time 349. I spent a total of 35 minutes face to face with this patie nt. Over 50% of visit was in counseling. MILAD Rodriguez-RENETTA Bariatric Surgery Nurse Practitioner [facility] | [id number] [address] | [place] | [address] | in this encounter Plan of Treatment +--------+---------+ + + + | Date | Type | Specialty | Care Team | Description | +--------+---------+ + + + | 01/08/ | Office | Cardiology | Juan Antonio Mclaughlin, | | | 2017 | Visit | | MD Elvin Dee | | | | | | [address] | | | | | | [place], [place] | | | | | | [address] | | | | | | [phone] | | | | | | | [...] | + + + | Blood | [facility], SPECIAL IMM + COAG [address] [facility] | | | [place] [address] | + + + + + | Narrative | + + | Alternate forms of testing such as fructosamine should be considered for | | monitoring seam steamer glycemic control in patients with: Increased red [...] | + + + | Blood | [facility], CORE [address] [facility] | | | [place] [address] | + + + + + | [...] | + + + | Blood | [facility], CORE [address] [place] [address] | | | [place] [address] | + + + BASIC METABOLIC SET [...] | >60 | >60 mL/min | | LIBER[place] | | | + + + + | EGFR NON | >60 | >60 mL/min | | -LIBERIAN | | | + + + + [...] | + + + | Blood | [facility], CORE [address] | | | [place] [address] | + + + + + | [...] | | ------ CBC (HEMOGRAM) | | ONLY[[id number]] Abnormal Final | | result Please view [...] characteristics | | | | determined by FileString. See | | | | Compliance Statement B: | | | | Womply/CSPerformed by [facility] | | | | [address] [address] | | | | [phone].Womply, Iker Angelo, | | | | Katherin BECKHAM. Director | | + + + + + + + | Specimen | Performing Laboratory | + + + | Blood | [facility] UNIV PTH - INTFC [address] [facility] | | | [place] [address] | + + + VITAMIN D, 25-HYDROXY, SERUM (06/16/2017 4:22 PM) + +-------+ + | Component | Value | Ref Range | + +-------+ + | VITAMIN D 25 HYDROXY | 44.8 | 30 - 80 ng/mL | + +-------+ + + + + | Specimen | Performing Laboratory | + + + | Blood | [facility], CORE [address] [facility] | | | [place] [address] | + + + + + | [...] | + + + | Blood | [facility], CORE [address] [facility] | | | [place] [address] | + + + PTH, SERUM (06/16/2017 4:22 PM) + +-------+ + | Component | Value | Ref Range | + +-------+ + | PTH, SERUM | 52 | 18 - 88 pg/mL | + +-------+ + + + + | Specimen | Performing Laboratory | + + + | Blood | [facility], CORE [address] [facility] | | | [place] [address] | + + + + + | [...]
--- OUTSIDE RECORDS SUMMARY | ~2017-08-04 | XMS | Clinical Summary ---
Demographics + + + | Address | [address] | | | [place] [address] | + + + | Home Phone | | + + + | Preferred Language | Unknown | + + + | Marital Status | Single | + + + | Rastafari Affiliation | NON | + + + [...] Team Providers + +------+ + | Care Store Product Demonstrator Name | Role | Phone | + +------+ + | Bassam Ross DO | PP | | + +------+ + Source Comments SHERIE is fully live [facility] both [facility] and [facility] InPatient.[facility] Allergies + + + + + + [...] Morbid obesity with BMI of 60.0-69.9, adult ([facility]) | 02/25/2016 | + + + | [...] | | | | | | adult ([facility]); | | | | | | Diabetes mellitus | | | | | | type 2, | | | | | | diet-controlled | | | | | | ([facility]) | +--------+ + + + + | [...] | | | | | | adult ([facility]); | | | | | | Diabetes [...] | Heart Disease | Father | | [place] 78 | + + +------+ + | [...] | | 2018 | Visit | | [address] [facility] | | | | | | [address] | | | | | | [place], [place] | | | | | | [address] | | | | | | [phone] | | | | | | | [...] | | | | | | | /[address] | | | | | | | | [address] | + +------+--------+ +--------+--------+--------+ | Dion Velamplanted: Qty: | | N/A: | | | 08/29/ | BSGE | | 2 on 02/07/2015 by Dianelys Reed | | | 2018 | [id number] / | | Dori Ferris MD | | n | | | | | | | | | | | | /[address] | | | | | | | | 327 | + +------+--------+ +--------+--------+--------+ Procedures + +--------+ + + + | Procedure Name | Priori | Date/Time | Associated Diagnosis | Comments | | | ty | | | | + +--------+ + + + | [place] MNT RE-ASSESSMNT | Routin | 06/17/2017 | [...] | + + + | Blood | [facility], CORE [address] [place] [address] | | | [place] [address] | + + + VITAMIN B1, WHOLE [...] characteristics | | | | determined by eCircle. See | | | | Compliance Statement B: | | | | SampleBoard/CSPerformed by [employer] | | | | [facility],[address] [place] [address],[place] [address] | | | | [phone].SampleBoard, Iker Angelo, | | | | , Lab. Director | | + + + + + + + | Specimen | Performing Laboratory | + + + | Blood | [facility] - INTFC [address] [facility] | | | [place] [address] | + + + VITAMIN D, 25-HYDROXY, SERUM (06/16/2017 4:22 PM) + +-------+ + | Component | Value | Ref Range | + +-------+ + | VITAMIN D 25 HYDROXY | 44.8 | 30 - 80 ng/mL | + +-------+ + + + + | Specimen | Performing Laboratory | + + + | Blood | [facility], CORE [address] [place] [address] | | | [place] [address] | + + + + + | [...] | >60 | >60 mL/min | | [place] | | | + + + + | EGFR NON | >60 | >60 mL/min | | -[place] | | | + + + + [...] | + + + | Blood | [facility], CORE [address] | | | [place] [address] | + + + + + | [...] | | ------ CBC (HEMOGRAM) | | ONLY[[id number]] Abnormal Final | | result Please view [...] | + + + | Blood | [facility], CORE [address] [facility] | | | [place] [address] | + + + PTH, SERUM (06/16/2017 4:22 PM) + +-------+ + | Component | Value | Ref Range | + +-------+ + | PTH, SERUM | 52 | 18 - 88 pg/mL | + +-------+ + + + + | Specimen | Performing Laboratory | + + + | Blood | [facility], CORE [address] [facility] | | | [place] [address] | + + + + + | [...] | + + + | Blood | [facility], CORE [address] | | | [place] [address] | + + + + + | [...] | + + + | Blood | [facility], CORE [address] | | | [place] [address] | + + + HEMOGLOBIN A1C, BLOOD [...] | + + + | Blood | [facility], SPECIAL IMM + COAG [address] [facility] | | | [place] [address] | + + + + + | Narrative | + + | Alternate forms of testing such as fructosamine should be considered for | | monitoring terminal worker glycemic control in patients with: Increased red cell turnover, | | certain hemoglobinopathies (e.g., HbS, HbE, HbC and thalassemia syndromes), anemias, | | blood loss, chronic liver disease and hemochromatosis (artefactually low HbA1c); iron | | deficiency anemia (artefactually high HbA1c due to enhanced glycation of hemoglobin). | | | + + from Last 3 Months
--- OUTSIDE RECORDS SUMMARY | ~2017-08-04 | XMS | Encounter Summary ---
Demographics + + + | Address | [address] | | | [place] [address] | + + + | Home Phone | | + + + | Preferred Language | Unknown | + + + | Marital Status | Single | + + + | Uatsdin Affiliation | NON | + + + | Race | White | + + + | Ethnic Group | Not or | + + + Author + + + | Author | [facility] | + + + | Organization | [facility] | + + + | Address | Unknown | + + + | Phone | Unavailable | + + + Support + + +---------+ + | Name | Relationship | Address | Phone | + + +---------+ + | Jordan Aguirre | ECON | Unknown | Unavailable | + + +---------+ + Care Team Providers + +------+ + | Care Roll Contour Grinder Name | Role | Phone | + [...] | Non [facility] | Diagnoses | [facility], | Non-[facility] | | | | Department | S/P | Hansa Hawkins, | Epic Dept | | | | | laparoscopic | AGACNP [address] | | | | | | sleeve | [address] | | | | | | gastrectomy | [place], | | | | | | Iron | [place] | | | | | | deficiency | [address] | | | | | | Procedures | Phone: | | | | | | CONSULT TO | [phone] | | | | | | NON - [facility] | Fax: | | | | | | PROVIDER | [phone] | | + +--------+ + + + + Encounter Details +--------+ + + + + | Date | Type | Department | Care Team | Description | +--------+ + + + + | 06/25/ | MyChart | Digestive Health | Hansa Hawkins, | RE:Follow-up | | 2018 | Encounter | Center at [facility] 6th | [employer] [address] | | | | | [facility] [address] | [place], [place] | | | | | mil Mailcode: [facility] | [address] | | | | | [place] for [facility] | [phone] | | | | | and [facility], [facility] | | | | | | [place], [place] | | | | | | [address] | | | | | | [phone] | | | +--------+ + + + [...] Rd | | | | | | [place], [place] | | | | | | [address] | | | | | | [phone] | | | | | | | | +--------+---------+ + + + as of this encounter Visit Diagnoses + + | Diagnosis | + + | S/P laparoscopic sleeve gastrectomy - Primary | + + | Iron deficiency | + + | Other disorders of iron metabolism | + +"
--- OUTSIDE RECORDS SUMMARY | ~2017-08-04 | XMS | Clinical Summary ---
Demographics + + + | Address | [address] | | | [place] [address] | + + + | Home Phone | | + + + | Preferred Language | Unknown | + + + | Marital Status | Single | + + + | Scientologist Affiliation | None | + + + [...] Team Providers + +------+ + | Care Aircraft Sales Representative Name | Role | Phone | + [...] has advance directives. For more information, please contact:[employer] [place] [address]
--- OUTSIDE RECORDS SUMMARY | ~2017-08-04 | XMS | Encounter Summary ---
Demographics + + + | Address | [address] | | | [place] [address] | + + + | Home Phone | | + + + | Preferred Language | Unknown | + + + | Marital Status | Single | + + + | Gnosticism Affiliation | NON | + + + | Race | White | + + + | Ethnic Group | Not or | + + + Author + + + | Author | [facility] | + + + | Organization | [facility] | + + + | Address | Unknown | + + + | Phone | Unavailable | + + + Support + + +---------+ + | Name | Relationship | Address | Phone | + + +---------+ + | Jordan Aguirre | ECON | Unknown | Unavailable | + + +---------+ + Care Team Providers + +------+ + | Care Smt Technician Name | Role | Phone | [...] | | | | | type | [address] | [address] | | | | | Gastroesopha | Phone: | Phone: | | | | | geal reflux | [phone] | [phone] | | | | | disease, | Fax: | Fax: | | | | | esophagitis | [phone] | [phone] | | | | | presence not [...] | | | | Sleep apnea, | [place], | Physicians | | | | | unspecified | [place] | Pavilion | | | | | type | [address] | Physicians | | | | | Gastroesopha | Phone: | Pavilion | | | | | geal reflux | [phone] | [place], [place] | | | | | disease, | Fax: | [address] | | | | | esophagitis | [phone] | Phone: | | | | | presence not | | [phone] | | | | | specified | | Fax: | | | | | Vitamin D | | [phone] | | | | | deficiency | [...] | | | | | | [address] | | | | | | | for Health | | | | | | | and Healing, | | | | | | | 6th floor | | | | | | | [place], [place] | | | | | | | [address] | | | | | | | Phone: | | | | | | | [phone] | | | | | | | Fax: | | | | | | | [phone] | + +--------+ + + + + Encounter Details +--------+---------+ + + + | Date | Type | Department | Care Team | Description | +--------+---------+ + + + | 06/16/ | Office | Digestive Health | Hansa Hawkins, | S/P laparoscopic | | 2018 | Visit | Center at [facility] 6th | AGACNP [address] | sleeve gastrectomy | | | | Floor [address] | Ave [place], [place] | (Primary Dx); | | | | Ave Mailcode: CH4S | [id number] | Essential | | | | [facility] | | hypertension, | | | | and Healing, 6th | | benign; Sleep apnea, | | | | floor [place], [place] | | unspecified type; | | | | [address] | | Gastroesophageal | | | | [...] | | | adult ([facility]); | | | | | | Diabetes mellitus | | | | | | type 2, | | | | | | diet-controlled | | | | | | ([facility]) | +--------+---------+ + + + Social [...] PM PST-start journaling food intake again, download Dropmysite samuel. -make appt with Mihaela for nutritional [...] a "partial sleeve". Activity: Walking daily, with sabianism friends. Fluids: getting 64 oz fluid daily. [...] echo and chest xray findings. Followed by residency coordinator in [place]. Shortness of breath Thyroid disease Past Surgical History Procedure Laterality Date C section 1998 Tonsillectomy 1996 Knee surgery 1996 Gastric banding 2004, 2007, 2011 Skin and subcutaneous tissue surgery 2006 Foot surgery 2009 - 2010 3x Hysterectomies, vaginal 2009 Appendectomy for ruptured appendix with abscess 2012 Gallbladder surgery 2008 Laparotomy 07/2014 Laparoscopic sleeve gastrectomy 02/07/2015 [facility] Brianna Social History Social History [...] sinus rhythm. Normal ECG Records reviewed from [facility] (see media tab): Echocardiogram 11/18/2013: [...] There is no pericardial effusion.21. No mass [id number]. Po or visualization. Definity was used to opacify the left ventricular chamber and improve deli neation of the endocardial border. Family History Problem Relation Diabetes Father Hypertension Mother Obesity Mother Hypertension Father Heart Disease Father [place] 78 Allergies Allergies Allergen Reactions Advair Diskus [...] is having daily. -I suggested making another auditor medical claims appt for next month to discuss possible [...] to plan and will call and/or send [employer] message if any issues. Start time 314, end time 349. I spent a total of 35 minutes face to face with this patie nt. Over 50% of visit was in counseling. MILAD Rodriguez-RENETTA Bariatric Surgery Nurse Practitioner [facility] | [id number] [address] | [place], [place] | [address] | in this encounter Plan of Treatment +--------+---------+ + + + | Date | Type | Specialty | Care Team | Description | +--------+---------+ + + + | 01/08/ | Office | Cardiology | Juan Antonio Mclaughlin, | | | 2017 | Visit | | MD Elvin Dee | | | | | | [address] | | | | | | [place], [place] | | | | | | [address] | | | | | | [phone] | | | | | | | [...] | + + + | Blood | [facility], SPECIAL IMM + COAG [address] [facility] | | | [place] [address] | + + + + + | Narrative | + + | Alternate forms of testing such as fructosamine should be considered for | | monitoring terminal gauger supervisor glycemic control in patients with: Increased red [...] | + + + | Blood | [facility], CORE [address] [facility] | | | [place] [address] | + + + + + | [...] | + + + | Blood | [facility], CORE [address] [place] [address] | | | [place] [address] | + + + BASIC METABOLIC SET [...] | >60 | >60 mL/min | | SRI LANKAN | | | + + + + | EGFR NON | >60 | >60 mL/min | | -SRI LANKAN | | | + + + + [...] | Blood | [facility], CORE [address] | | | [place] [address] | + + + + + | [...] | | ------ CBC (HEMOGRAM) | | ONLY[[id number]] Abnormal Final | | result Please view [...] characteristics | | | | determined by DataSphere. See | | | | Compliance Statement B: | | | | Connectipity/CSPerformed by [facility] | | | | [address] [address] | | | | [phone].Connectipity, Iker Angelo, | | | | Katherin BECKHAM. Director | | + + + + + + + | Specimen | Performing Laboratory | + + + | Blood | [facility] REG UNIV PTH - INTFC [address] [facility] | | | [place] [address] | + + + VITAMIN D, 25-HYDROXY, SERUM (06/16/2017 4:22 PM) + +-------+ + | Component | Value | Ref Range | + +-------+ + | VITAMIN D 25 HYDROXY | 44.8 | 30 - 80 ng/mL | + +-------+ + + + + | Specimen | Performing Laboratory | + + + | Blood | [facility], CORE [address] [facility] | | | [place] [address] | + + + + + | [...] | + + + | Blood | [facility], CORE [address] [facility] | | | [place] [address] | + + + PTH, SERUM (06/16/2017 4:22 PM) + +-------+ + | Component | Value | Ref Range | + +-------+ + | PTH, SERUM | 52 | 18 - 88 pg/mL | + +-------+ + + + + | Specimen | Performing Laboratory | + + + | Blood | [facility], CORE [address] [facility] | | | [place] [address] | + + + + + | [...]
--- OUTSIDE RECORDS SUMMARY | ~2017-08-04 | XMS | Encounter Summary ---
Demographics + + + | Address | [address] | | | [place] [address] | + + + | Home Phone [...] Team Providers + +------+ + | Care Technical Support Representative Name | Role | Phone | [...] | | | | | type | [address] | [address] | | | | | Gastroesopha | Phone: | Phone: | | | | | geal reflux | [phone] | [phone] | | | | | disease, | Fax: | Fax: | | | | | esophagitis | [phone] | [phone] | | | | | presence not [...] | | | | Sleep apnea, | [place], | Physicians | | | | | unspecified | [place] | Pavilion | | | | | type | [address] | Physicians | | | | | Gastroesopha | Phone: | Pavilion | | | | | geal reflux | [phone] | [place], [place] | | | | | disease, | Fax: | [address] | | | | | esophagitis | [phone] | Phone: | | | | | presence not | | [phone] | | | | | specified | | Fax: | | | | | Vitamin D | | [phone] | | | | | deficiency | [...] | | | | | | | [address] | | | | | | | for Health | | | | | | | and Healing, | | | | | | | 6th floor | | | | | | | [place], [place] | | | | | | | [address] | | | | | | | Phone: | | | | | | | [phone] | | | | | | | Fax: | | | | | | | [phone] | + +--------+ + + + + Encounter Details +--------+---------+ + + + | Date | Type | Department | Care Team | Description | +--------+---------+ + + + | 06/16/ | Office | Digestive Health | Hansa Hawkins, | S/P laparoscopic | | 2018 | Visit | Center at [facility] 6th | AGACNP [address] | sleeve gastrectomy | | | | Floor [address] | Ave [place], [place] | (Primary Dx); | | | | Ave Mailcode: CH4S | [address] | Essential | | | | [facility] | | hypertension, | | | | and Healing, 6th | | benign; Sleep apnea, | | | | floor [place], [place] | | unspecified type; | | | | [address] | | Gastroesophageal | | | | [...] | | | | | | adult ([facility]); | | | | | | Diabetes mellitus | | | | | | type 2, | | | | | | diet-controlled | | | | | | ([facility]) | +--------+---------+ + + + Social [...] this encounter Instructions Patient Instructions - Hansa Hawknis AGACNP - 06/16/2017 3:05 PM PST-start journaling food intake again, download Ghostruck samuel. -make appt with Mihaela for nutritional [...] a "partial sleeve". Activity: Walking daily, with bahai friends. Fluids: getting 64 oz fluid daily. [...] echo and chest xray findings. 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 Shortness of breath Thyroid disease Past Surgical History Procedure Laterality Date C section 1998 Tonsillectomy 1996 Knee surgery 1996 Gastric banding 2004, 2007, 2011 Skin and subcutaneous tissue surgery 2006 Foot surgery 2009 - 2010 3x Hysterectomies, vaginal 2009 Appendectomy for ruptured appendix with abscess 2012 Gallbladder surgery 2008 Laparotomy 07/2014 Laparoscopic sleeve gastrectomy 02/07/2015 [facility] Brianna Social History Social History [...] sinus rhythm. Normal ECG Records reviewed from [facility] (see media tab): Echocardiogram 11/18/2013: 1. Sinus [...] There is no pericardial effusion.21. No mass [id number]. Po or visualization. Definity was used to opacify the left ventricular chamber and improve deli neation of the endocardial border. Family History Problem Relation Diabetes Father Hypertension Mother Obesity Mother Hypertension Father Heart Disease Father [place] 78 Allergies Allergies Allergen Reactions Advair Diskus [...] is having daily. 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 Start time 314, end time 349. I spent a total of 35 minutes face to face with this patie nt. Over 50% of visit was in counseling. MILAD Rodriguez-RENETTA Bariatric Surgery Nurse Practitioner [facility] | [id number] [address] | [place], [place] | [address] | in this encounter Plan of Treatment +--------+---------+ + + + | Date | Type | Specialty | Care Team | Description | +--------+---------+ + + + | 01/08/ | Office | Cardiology | Juan Antonio Mclaughlin, | | | 2017 | Visit | | MD Elvin Dee | | | | | | [address] | | | | | | [place], [place] | | | | | | [address] | | | | | | [phone] | | | | | | | [...] | + + + | Blood | [facility] LABORATORY SERVICES, SPECIAL IMM + COAG [address] [facility] | | | [place] [address] | + + + + + | Narrative | + + | Alternate forms of testing such as fructosamine should be considered for | | monitoring terminal makeup operator glycemic control in patients with: Increased red [...] | + + + | Blood | [facility] LABORATORY SERVICES, CORE [address] [facility] | | | [place] [address] | + + + + + | [...] | + + + | Blood | [facility] LABORATORY SERVICES, CORE [address] [place] [address] | | | [place] [address] | + + + BASIC METABOLIC SET [...] | >60 | >60 mL/min | | [place] | | | + + + + | EGFR NON | >60 | >60 mL/min | | -[place] | | | + + + + [...] | + + + | Blood | [facility], CORE [address] [facility] [address] | | | [place] [address] | + + + + + | [...] | | ------ CBC (HEMOGRAM) | | ONLY[[id number]] Abnormal Final | | result Please view [...] characteristics | | | | determined by [employer]. See | | | | Compliance Statement B: | | | | AngelPrime/CSPerformed by [facility] | | | | [address] [address] | | | | [phone].[employer], Iker Angelo, | | | | Katherin BECKHAM. Director | | + + + + + + + | Specimen | Performing Laboratory | + + + | Blood | [facility] UNIV PTH - INTFC [address] [facility] | | | [place] [address] | + + + VITAMIN D, 25-HYDROXY, SERUM (06/16/2017 4:22 PM) + +-------+ + | Component | Value | Ref Range | + +-------+ + | VITAMIN D 25 HYDROXY | 44.8 | 30 - 80 ng/mL | + +-------+ + + + + | Specimen | Performing Laboratory | + + + | Blood | [facility] LABORATORY [facility], CORE [address] [facility] | | | [place] [address] | + + + + + | [...] | + + + | Blood | [facility] LABORATORY SERVICES, CORE [address] [facility] | | | [place] [address] | + + + PTH, SERUM (06/16/2017 4:22 PM) + +-------+ + | Component | Value | Ref Range | + +-------+ + | PTH, SERUM | 52 | 18 - 88 pg/mL | + +-------+ + + + + | Specimen | Performing Laboratory | + + + | Blood | [facility] LABORATORY SERVICES, CORE [address] [facility] | | | [place] [address] | + + + + + | [...]
--- OUTSIDE RECORDS SUMMARY | ~2017-08-04 | XMS | Clinical Summary ---
Demographics + + + | Address | [address] | | | [place] [address] | + + + | Home Phone | | + + + | Preferred Language | Unknown | + + + | Marital Status | Single | + + + | Adventism Affiliation | None | + + + [...] Providers + +------+ + | Care Network Operations Manager Name | Role | Phone [...] has advance directives. For more information, please contact:[employer] [place] [address]
--- OUTSIDE RECORDS SUMMARY | ~2017-08-04 | XMS | Encounter Summary ---
Demographics + + + | Address | [address] | | | [place] [address] | + + + | Home Phone | | + + + | Preferred Language | Unknown | + + + | Marital Status | Single | + + + | Jain Affiliation | NON | + + + [...] + +------+ + | Care Human Resources Office Manager Name | Role | Phone | [...] | | | | | | | [facility] Center | | | | | | | for Health | | | | | | | and Healing | | | | | | | [place], [place] | | | | | | | [address] | | | | | | | Phone: | | | | | | | [phone] | | | | | | | Fax: | | | | | | | [phone] | + +--------+ + + + + Encounter Details +--------+---------+ + + + | Date | Type | Department | Care Team | Description | +--------+---------+ + + + | 06/16/ | Office | Digestive Health | Mihaela Villa, | S/P laparoscopic | | 2018 | Visit | Center at [facility] 6th | [address] | sleeve gastrectomy | | | | Floor [address] | [address] | (Primary Dx) | | | | Ave Mailcode: | [place], [place] | | | | | [facility] Center for | [address] | | | | | Health and Healing | | | | | | [place], [place] | | | | | | [address] | | | | | | [phone] | | | +--------+---------+ + + + [...] Ross DO [address] [place] [address] Documented time of visit: 2:33 to 3:03 (30 minutes [id number] with patient) Surgery: Sleeve Gastrectomy Date of Surgery: 02/07/15 Subjective: Continues to have an infection in leg. Lost her dad last ANTONIO. Went to the [employer] loss conference in [place] last year. Wanting some options in regards [...] Physical Activity: walking at the gym at [employer] with some friends 2x/wk 60 Changes in [...] echo and chest xray findings. Followed by emergency medicine medical director in [place]. Shortness of breath Thyroid disease [...] multivitamin & mineral (with iron) supplement, 2/day -7534-1442 mg calcium citrate with vitamin D/day (take in divided doses, not within 2 hour s of multivitamin or iron supplement) -500 mcg/day sublingual B12 supplement (or monthly injections) Continued to reinforce importance of mindful eating. Continue to increase physical activity. Follow up Mihaela cooper RD,[place] Pager# [phone] Phone: [phone] in this encounter Plan of Treatment +--------+---------+ + + + | Date | Type | Specialty | Care Team | Description | +--------+---------+ + + + | 01/08/ | Office | Cardiology | Juan Antonio Mclaughlin, | | | 2017 | Visit | | [address] | | | | | | [address] | | | | | | [place], [place] | | | | | | [address] | | | | | | [phone] | | | | | | | | +--------+---------+ + + + as of this encounter Procedures + +--------+ + + + | Procedure Name | Priori | Date/Time | Associated Diagnosis | Comments | | | ty | | | | + +--------+ + + + | HI MNT RE-ASSESSMNT | Routin | 06/17/2017 | [...]
--- OUTSIDE RECORDS SUMMARY | ~2017-08-04 | XMS | Encounter Summary ---
Demographics + + + | Address | [address] | | | [place] [address] | + + + | Home Phone | | + + + | Preferred Language | Unknown | + + + | Marital Status | Single | + + + | Alevism Affiliation | NON | + + + [...] Team Providers + +------+ + | Care Telegraph Equipment Maintainer Name | Role | Phone | + +------+ + | Bassam Ross DO | PCP | | + +------+ + Encounter Details +--------+------+ + + + | Date | Type | Department | Care Team | Description | +--------+------+ + + + | 06/16/ | Lab | Laboratory at [facility] | | Essential | | 2017 | | 3rd Floor [address] | | hypertension, | | | | [address] [place], | | benign; Sleep apnea, | | | | [place] [address] | | unspecified type; | | | | [phone] | | Gastroesophageal | | | | [...] Rd | | | | | | [place], [place] | | | | | | [address] | | | | | | [phone] | | | | | | | [...] | + + + | Blood | [facility] [address] [place] [address] | | | [place] [address] | + + + HEMOGLOBIN A1C, BLOOD [...] | + + + | Blood | [facility] SERVICES, SPECIAL IMM + [facility] [address] [facility] | | | [place] [address] | + + + + + | Narrative | + + | Alternate forms of testing such as fructosamine should be considered for | | monitoring group home glycemic control in patients with: Increased red [...] | + + + | Blood | [facility], CORE [address] | | | [place] [address] | + + + + + | [...] | + + + | Blood | [facility], CORE [address] [facility] | | | [place] [address] | + + + BASIC METABOLIC SET [...] | >60 | >60 mL/min | | [place] | | | + + + + | EGFR NON | >60 | >60 mL/min | | -[place]ISTAN[place] | | | + + + + [...] | + + + | Blood | [facility] SERVICES, CORE [address] | | | [place] [address] | + + + + + | [...] | | ------ CBC (HEMOGRAM) | | ONLY[[id number]] Abnormal Final | | result Please view [...] characteristics | | | | determined by [employer]. See | | | | Compliance Statement B: | | | | [email or web address] by [employer] | | | | [facility] Valle[facility]illo[facility]RIN[facility] H[facility]ALS [facility] CH[facility]EN,[place] [address] | | | | [phone].[email or web address], Iker Angelo, | | | | , Lab. Director | | + + + + + + + | Specimen | Performing Laboratory | + + + | Blood | [facility] UNIV PTH - INTFC [address] [facility] | | | [place] [address] | + + + VITAMIN D, 25-HYDROXY, SERUM (06/16/2017 4:22 PM) + +-------+ + | Component | Value | Ref Range | + +-------+ + | VITAMIN D 25 HYDROXY | 44.8 | 30 - 80 ng/mL | + +-------+ + + + + | Specimen | Performing Laboratory | + + + | Blood | [facility], CORE [address] | | | [place] [address] | + + + + + | [...] | + + + | Blood | [facility] SERVICES, CORE [address] [place] [address] | | | [place] [address] | + + + PTH, SERUM (06/16/2017 4:22 PM) + +-------+ + | Component | Value | Ref Range | + +-------+ + | PTH, SERUM | 52 | 18 - 88 pg/mL | + +-------+ + + + + | Specimen | Performing Laboratory | + + + | Blood | [facility], CORE [address] | | | [place] [address] | + + + + + | [...]
--- OUTSIDE RECORDS SUMMARY | ~2017-08-04 | XMS | Clinical Summary ---
Demographics + + + | Address | [address] | | | [place] [address] | + + + | Home Phone | | + + + | Preferred Language | Unknown | + + + | Marital Status | Single | + + + | Nondenominational Affiliation | NON | + + + [...] Team Providers + +------+ + | Care Glue Cook Name | Role | Phone | + +------+ + | Bassam Ross DO | PP | | + +------+ + Source Comments [facility] In[facility] Allergies + + + + + + [...] obesity with BMI of 60.0-69.9, adult ([facility]) | 02/25/2016 | + + + | [...] | | | | | adult ([facility]); | | | | | | Diabetes mellitus | | | | | | type 2, | | | | | | diet-controlled | | | | | | ([facility]) | +--------+ + + + + | [...] | | | | | adult ([facility]); | | | | | | Diabetes [...] | Heart Disease | Father | | [place] 78 | + + +------+ + | [...] | | 2018 | Visit | | [address] [facility] | | | | | | [address] | | | | | | [place], [place] | | | | | | [address] | | | | | | [phone] | | | | | | | [...] | | | | | | | /[address] | | | | | | | | [address] | + +------+--------+ +--------+--------+--------+ | Dion Velamplanted: Qty: | | N/A: | | | 08/29/ | BSGE | | 2 on 02/07/2015 by Dianelys Reed | | | 2018 | [id number] / | | Dori Ferris MD | | n | | | | | | | | | | | | /[address] | | | | | | | | 327 | + +------+--------+ +--------+--------+--------+ Procedures + +--------+ + + + | Procedure Name | Priori | Date/Time | Associated Diagnosis | Comments | | | ty | | | | + +--------+ + + + | [place] MNT RE-ASSESSMNT | Routin | 06/17/2017 | [...] | + + + | Blood | [facility] SERVICES, CORE [address] [place] [address] | | | [place] [address] | + + + VITAMIN B1, WHOLE [...] characteristics | | | | determined by [employer]. See | | | | Compliance Statement B: | | | | Paybook/CSPerformed by [employer] | | | | [facility],[address] [place] [address],[place] [address] | | | | [phone].[employer]book, Iker Angelo, | | | | , Lab. Director | | + + + + + + + | Specimen | Performing Laboratory | + + + | Blood | [facility] - INTFC [address] [facility] | | | [place] [address] | + + + VITAMIN D, 25-HYDROXY, SERUM (06/16/2017 4:22 PM) + +-------+ + | Component | Value | Ref Range | + +-------+ + | VITAMIN D 25 HYDROXY | 44.8 | 30 - 80 ng/mL | + +-------+ + + + + | Specimen | Performing Laboratory | + + + | Blood | [facility], CORE [address] [place] [address] | | | [place] [address] | + + + + + | [...] | >60 | >60 mL/min | | [place] | | | + + + + | EGFR NON | >60 | >60 mL/min | | -[place] | | | + + + + [...] | + + + | Blood | [facility], CORE [address] | | | [place] [address] | + + + + + | [...] | | ------ CBC (HEMOGRAM) | | ONLY[[id number]] Abnormal Final | | result Please view [...] | + + + | Blood | [facility], CORE [address] | | | [place] [address] | + + + PTH, SERUM (06/16/2017 4:22 PM) + +-------+ + | Component | Value | Ref Range | + +-------+ + | PTH, SERUM | 52 | 18 - 88 pg/mL | + +-------+ + + + + | Specimen | Performing Laboratory | + + + | Blood | [facility], CORE [address] [facility] | | | [place] [address] | + + + + + | [...] | + + + | Blood | [facility], CORE [address] | | | [place] [address] | + + + + + | [...] | + + + | Blood | [facility], CORE [address] | | | [place] [address] | + + + HEMOGLOBIN A1C, BLOOD [...] | + + + | Blood | [facility] SERVICES, SPECIAL IMM + COAG [address] [facility] | | | [place] [address] | + + + + + | Narrative | + + | Alternate forms of testing such as fructosamine should be considered for | | monitoring rn long term care glycemic control in patients with: Increased red cell turnover, | | certain hemoglobinopathies (e.g., HbS, HbE, HbC and thalassemia syndromes), anemias, | | blood loss, chronic liver disease and hemochromatosis (artefactually low HbA1c); iron | | deficiency anemia (artefactually high HbA1c due to enhanced glycation of hemoglobin). | | | + + from Last 3 Months
--- OUTSIDE RECORDS SUMMARY | ~2017-08-04 | XMS | Encounter Summary ---
Demographics + + + | Address | [address] | | | [place] [address] | + + + | Home Phone | | + + + | Preferred Language | Unknown | + + + | Marital Status | Single | + + + | Anabaptist Affiliation | NON | + + + [...] Team Providers + +------+ + | Care Associate Property Manager Name | Role | Phone | [...] | Non [facility] | Diagnoses | [facility], | Non-[facility] | | | | Department | S/P | Hansa Hawkins, | Epic Dept | | | | | laparoscopic | AGACNP [address] | | | | | | sleeve | [address] | | | | | | gastrectomy | [place], | | | | | | [place] | [place] | | | | | | deficiency | [address] | | | | | | Procedures | Phone: | | | | | | CONSULT TO | [phone] | | | | | | NON - [facility] | Fax: | | | | | | PROVIDER | [phone] | | + +--------+ + + + + Encounter Details +--------+ + + + + | Date | Type | Department | Care Team | Description | +--------+ + + + + | 06/25/ | MyChart | Digestive Health | Hansa Hawkins, | RE:Follow-up | | 2018 | Encounter | Center at [facility] 6th | [facility] [address] | | | | | [facility] [address] | [place], [place] | | | | | mil Mailcode: [facility] | [address] | | | | | [place] for [facility] | [phone] | | | | | and [facility] | | | | | | [place], [place] | | | | | | [address] | | | | | | [phone] | | | +--------+ + + + [...] Rd | | | | | | [place], [place] | | | | | | [address] | | | | | | [phone] | | | | | | | | +--------+---------+ + + + as of this encounter Visit Diagnoses + + | Diagnosis | + + | S/P laparoscopic sleeve gastrectomy - Primary | + + | Iron deficiency | + + | Other disorders of iron metabolism | + +"
--- OUTSIDE RECORDS SUMMARY | ~2017-08-04 | XMS | Clinical Summary ---
Demographics + + + | Address | [address] | | | [place] [address] | + + + | Home Phone | | + + + | Preferred Language | Unknown | + + + | Marital Status | Single | + + + | Presybeterian Affiliation | None | + + + [...] Team Providers + +------+ + | Care Automotive Mechanic Name | Role | Phone | [...] has advance directives. For more information, please contact:[employer] [place] [address]
--- OUTSIDE RECORDS SUMMARY | ~2017-08-04 | XMS | Clinical Summary ---
Demographics + + + | Address | [address] | | | [place] [address] | + + + | Home Phone [...] Providers + +------+ + | Care Manager Flight Operations Name | Role | Phone | + +------+ + | Bassam Ross DO | PP | | + +------+ + Source Comments SHERIE is fully live on both [facility] and [facility] InPatient.[facility]ly [facility] Allergies + + + + + + [...] 60.0-69.9, adult (FORMERLY [facility]) | 02/25/2016 | + + + | [...] | | | | | adult (FORMERLY [facility]); | | | | | | Diabetes mellitus | | | | | | type 2, | | | | | | diet-controlled | | | | | | (FORMERLY [facility]) | +--------+ + + + + | [...] | | | | | adult (FORMERLY [facility]); | | | | | | Diabetes [...] | | 2018 | Visit | | [address] [facility] | | | | | | [address] | | | | | | [place], [place] | | | | | | [address] | | | | | | [phone] | | | | | | | [...] | | | | | | | /[id number] | | | | | | | | 329 | + +------+--------+ +--------+--------+--------+ | Dion Velamplanted: Qty: | | N/A: | | | 08/29/ | BSGE | | 2 on 02/07/2015 by Dianelys Reed | | | 2018 | [id number] / | | Dori Ferris MD | | n | | | | | | | | | | | | /[id number] | | | | | | | | 327 | + +------+--------+ +--------+--------+--------+ Procedures + +--------+ + + + | Procedure Name | Priori | Date/Time | Associated Diagnosis | Comments | | | ty | | | | + +--------+ + + + | [place] MNT RE-ASSESSMNT | Routin | 06/17/2017 | [...] | + + + | Blood | [facility], CORE [address] [place] [address] | | | [place] [address] | + + + VITAMIN B1, WHOLE [...] characteristics | | | | determined by [employer]. See | | | | Compliance Statement B: | | | | Atlas Powered/CSPerformed by [employer] | | | | [facility],[address] [place] [address],[place] [address] | | | | [phone].[employer], Iker Angelo, | | | | , Lab. Director | | + + + + + + + | Specimen | Performing Laboratory | + + + | Blood | [facility] [address] [facility] | | | [place] [address] | + + + VITAMIN D, 25-HYDROXY, SERUM (06/16/2017 4:22 PM) + +-------+ + | Component | Value | Ref Range | + +-------+ + | VITAMIN D 25 HYDROXY | 44.8 | 30 - 80 ng/mL | + +-------+ + + + + | Specimen | Performing Laboratory | + + + | Blood | [facility], CORE [address] [place] [address] | | | [place] [address] | + + + + + | [...] | >60 | >60 mL/min | | MALAWIAN | | | + + + + | EGFR NON | >60 | >60 mL/min | | -MALAWIAN | | | + + + + [...] | + + + | Blood | [facility], CORE [address] | | | [place] [address] | + + + + + | [...] | | ------ CBC (HEMOGRAM) | | ONLY[[id number]] Abnormal Final | | result Please view [...] | + + + | Blood | [facility], CORE [address] | | | [place] [address] | + + + PTH, SERUM (06/16/2017 4:22 PM) + +-------+ + | Component | Value | Ref Range | + +-------+ + | PTH, SERUM | 52 | 18 - 88 pg/mL | + +-------+ + + + + | Specimen | Performing Laboratory | + + + | Blood | [facility], CORE [address] | | | [place] [address] | + + + + + | [...] | + + + | Blood | [facility], CORE [address] | | | [place] [address] | + + + + + | [...] | + + + | Blood | [facility], CORE [address] | | | [place] [address] | + + + HEMOGLOBIN A1C, BLOOD [...] | + + + | Blood | [facility], SPECIAL IMM + [facility] [address] [facility] | | | [place] [address] | + + + + + | Narrative | + + | Alternate forms of testing such as fructosamine should be considered for | | monitoring laborer marine terminal glycemic control in patients with: Increased red cell turnover, | | certain hemoglobinopathies (e.g., HbS, HbE, HbC and thalassemia syndromes), anemias, | | blood loss, chronic liver disease and hemochromatosis (artefactually low HbA1c); iron | | deficiency anemia (artefactually high HbA1c due to enhanced glycation of hemoglobin). | | | + + from Last 3 Months
--- OUTSIDE RECORDS SUMMARY | ~2017-08-04 | XMS | Encounter Summary ---
Demographics + + + | Address | [address] | | | [place] [address] | + + + | Home Phone [...] Team Providers + +------+ + | Care Painter Helper Sign Name | Role | Phone | + [...] | | | | | | | [facility] Center | | | | | | | for Health | | | | | | | and Healing | | | | | | | [place], [place] | | | | | | | [address] | | | | | | | Phone: | | | | | | | [phone] | | | | | | | Fax: | | | | | | | [phone] | + +--------+ + + + + Encounter Details +--------+---------+ + + + | Date | Type | Department | Care Team | Description | +--------+---------+ + + + | 06/16/ | Office | Digestive Health | Mihaela Villa, | S/P laparoscopic | | 2018 | Visit | Center at [facility] 6th | [address] | sleeve gastrectomy | | | | Floor [address] | [address] | (Primary Dx) | | | | Ave Mailcode: | [place], [place] | | | | | [facility] Center for | [address] | | | | | Health and Healing | | | | | | [place], [place] | | | | | | [address] | | | | | | [phone] | | | +--------+---------+ + + + [...] Ross DO [address] [place] [address] Documented time of visit: 2:33 to 3:03 (30 minutes mwvs-dt-aeag with patient) Surgery: Sleeve Gastrectomy Date of Surgery: 02/07/15 Subjective: Continues to have an infection in leg. Lost her dad last ANTONIO. Went to the big w eight loss conference in [place] last year. Wanting some options in regards [...] Physical Activity: walking at the gym at [employer] with some friends 2x/wk 60 Changes in [...] echo and chest xray findings. 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 Shortness of breath Thyroid disease Food logs: [...] multivitamin & mineral (with iron) supplement, 2/day -7923-1472 mg calcium citrate with vitamin D/day (take in divided doses, not within 2 hour s of multivitamin or iron supplement) -500 mcg/day sublingual B12 supplement (or monthly injections) Continued to reinforce importance of mindful eating. Continue to increase physical activity. Follow up Mihaela cooper RD,[place] Pager# [phone] Phone: [phone] in this encounter Plan of Treatment +--------+---------+ + + + | Date | Type | Specialty | Care Team | Description | +--------+---------+ + + + | 01/08/ | Office | Cardiology | Juan Antonio Mclaughlin, | | | 2017 | Visit | | [address] | | | | | | [address] | | | | | | [place], [place] | | | | | | [address] | | | | | | [phone] | | | | | | | | +--------+---------+ + + + as of this encounter Procedures + +--------+ + + + | Procedure Name | Priori | Date/Time | Associated Diagnosis | Comments | | | ty | | | | + +--------+ + + + | [place] MNT RE-ASSESSMNT | Routin | 06/17/2017 | [...]
--- OUTSIDE RECORDS SUMMARY | ~2017-08-04 | XMS | Encounter Summary ---
Demographics + + + | Address | [address] | | | [place] [address] | + + + | Home Phone [...] Team Providers + +------+ + | Care Shingle Weaver Name | Role | Phone | + +------+ + | Bassam Ross DO | PCP | | + +------+ + Encounter Details +--------+------+ + + + | Date | Type | Department | Care Team | Description | +--------+------+ + + + | 06/16/ | Lab | Laboratory at [facility] | | Essential | | 2017 | | 3rd Floor [address] | | hypertension, | | | | [address] [place], | | benign; Sleep apnea, | | | | [place] [address] | | unspecified type; | | | | [phone] | | Gastroesophageal | | | | [...] Rd | | | | | | [place], [place] | | | | | | [address] | | | | | | [phone] | | | | | | | [...] | + + + | Blood | [facility] [address] [place] [address] | | | [place] [address] | + + + HEMOGLOBIN A1C, BLOOD [...] | + + + | Blood | [facility], SPECIAL IMM + [facility] [address] | | | [place] [address] | + + + + + | Narrative | + + | Alternate forms of testing such as fructosamine should be considered for | | monitoring long-term glycemic control in patients with: Increased red [...] | + + + | Blood | [facility], CORE [address] | | | [place] [address] | + + + + + | [...] | + + + | Blood | [facility], CORE [address] | | | [place] [address] | + + + BASIC METABOLIC SET [...] | >60 | >60 mL/min | | ZAMBIAN | | | + + + + | EGFR NON | >60 | >60 mL/min | | -ZAMBIAN | | | + + + + [...] | + + + | Blood | [facility], CORE [address] | | | [place] [address] | + + + + + | [...] | | ------ CBC (HEMOGRAM) | | ONLY[[id number]] Abnormal Final | | result Please view [...] characteristics | | | | determined by [employer]. See | | | | Compliance Statement B: | | | | Zeppelin/CSPerformed by [employer] | | | | [facility] [place] [address] | | | | [phone].[employer], Iker Angelo, | | | | , Lab. Director | | + + + + + + + | Specimen | Performing Laboratory | + + + | Blood | [facility] [address] [facility] | | | [place] [address] | + + + VITAMIN D, 25-HYDROXY, SERUM (06/16/2017 4:22 PM) + +-------+ + | Component | Value | Ref Range | + +-------+ + | VITAMIN D 25 HYDROXY | 44.8 | 30 - 80 ng/mL | + +-------+ + + + + | Specimen | Performing Laboratory | + + + | Blood | [facility], CORE [address] | | | [place] [address] | + + + + + | [...] | + + + | Blood | [facility], CORE [address] [place] [address] | | | [place] [address] | + + + PTH, SERUM (06/16/2017 4:22 PM) + +-------+ + | Component | Value | Ref Range | + +-------+ + | PTH, SERUM | 52 | 18 - 88 pg/mL | + +-------+ + + + + | Specimen | Performing Laboratory | + + + | Blood | [facility], CORE [address] | | | [place] [address] | + + + + + | [...]
--- OUTSIDE RECORDS SUMMARY | ~2017-08-04 | XMS | Encounter Summary ---
Demographics + + + | Address | [address] | | | [place] [address] | + + + | Home Phone [...] Team Providers + +------+ + | Care Marbleizer Name | Role | Phone | + [...] | Non [facility] | Diagnoses | [facility], | Non-[facility] | | | | Department | S/P | Hansa Hawkins, | Epic Dept | | | | | laparoscopic | AGACNP [address] | | | | | | sleeve | [address] | | | | | | gastrectomy | [place], | | | | | | [place] | [place] | | | | | | deficiency | [address] | | | | | | Procedures | Phone: | | | | | | CONSULT TO | [phone] | | | | | | NON - [facility] | Fax: | | | | | | PROVIDER | [phone] | | + +--------+ + + + + Encounter Details +--------+ + + + + | Date | Type | Department | Care Team | Description | +--------+ + + + + | 06/25/ | MyChart | Digestive Health | Hansa Hawkins, | RE:Follow-up | | 2018 | Encounter | Center at [facility] 6th | [facility] [address] | | | | | [facility] [address] | [place], [place] | | | | | mil Mailcode: [facility] | [address] | | | | | [place] for [facility] | [phone] | | | | | and [facility] | | | | | | [place], [place] | | | | | | [address] | | | | | | [phone] | | | +--------+ + + + [...] Rd | | | | | | [place], [place] | | | | | | [address] | | | | | | [phone] | | | | | | | | +--------+---------+ + + + as of this encounter Visit Diagnoses + + | Diagnosis | + + | S/P laparoscopic sleeve gastrectomy - Primary | + + | Iron deficiency | + + | Other disorders of iron metabolism | + +"
--- OUTSIDE RECORDS SUMMARY | ~2017-08-04 | XMS | Encounter Summary ---
Demographics + + + | Address | [address] | | | [place] [address] | + + + | Home Phone [...] + + + | Author | [facility] | + + + | Organization | [facility] | + + + | Address | Unknown | + + + | Phone | Unavailable | + + + Support + + +---------+ + | Name | Relationship | Address | Phone | + + +---------+ + | Jordan Aguirre | ECON | Unknown | Unavailable | + + +---------+ + Care Team Providers + +------+ + | Care Accountant Manager Name | Role | Phone | [...] | | | | | | | [facility] Center | | | | | | | for Health | | | | | | | and Healing | | | | | | | [place], [place] | | | | | | | [address] | | | | | | | Phone: | | | | | | | [phone] | | | | | | | Fax: | | | | | | | [phone] | + +--------+ + + + + Encounter Details +--------+---------+ + + + | Date | Type | Department | Care Team | Description | +--------+---------+ + + + | 06/16/ | Office | Digestive Health | Mihaela Villa, | S/P laparoscopic | | 2018 | Visit | Center at [facility] 6th | [address] | sleeve gastrectomy | | | | Floor [address] | [address] | (Primary Dx) | | | | Ave Mailcode: | [place], [place] | | | | | [facility] Center for | [address] | | | | | Health and Healing | | | | | | [place], [place] | | | | | | [address] | | | | | | [phone] | | | +--------+---------+ + + + [...] Ross DO [address] [place] [address] Documented time of visit: 2:33 to 3:03 (30 minutes lopy-ja-mcgn with patient) Surgery: Sleeve Gastrectomy Date of Surgery: 02/07/15 Subjective: Continues to have an infection in leg. Lost her dad last ANTONIO. Went to the big w eight loss conference in [place] last year. Wanting some options in regards [...] Physical Activity: walking at the gym at [employer] with some friends 2x/wk 60 Changes in [...] echo and chest xray findings. 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 Shortness of breath Thyroid disease [...] multivitamin & mineral (with iron) supplement, 2/day -0196-9910 mg calcium citrate with vitamin D/day (take in divided doses, not within 2 hour s of multivitamin or iron supplement) -500 mcg/day sublingual B12 supplement (or monthly injections) Continued to reinforce importance of mindful eating. Continue to increase physical activity. Follow up Mihaela cooper RD,[place] Pager# [phone] Phone: [phone] in this encounter Plan of Treatment +--------+---------+ + + + | Date | Type | Specialty | Care Team | Description | +--------+---------+ + + + | 01/08/ | Office | Cardiology | Juan Antonio Mclaughlin, | | | 2017 | Visit | | [address] | | | | | | [address] | | | | | | [place], [place] | | | | | | [address] | | | | | | [phone] | | | | | | | | +--------+---------+ + + + as of this encounter Procedures + +--------+ + + + | Procedure Name | Priori | Date/Time | Associated Diagnosis | Comments | | | ty | | | | + +--------+ + + + | [place] MNT RE-ASSESSMNT | Routin | 06/17/2017 | [...]
--- OUTSIDE RECORDS SUMMARY | ~2017-08-04 | XMS | Encounter Summary ---
Demographics + + + | Address | [address] | | | [place] [address] | + + + | Home Phone | | + + + | Preferred Language | Unknown | + + + | Marital Status | Single | + + + | Lutheran Affiliation | NON | + + + [...] Team Providers + +------+ + | Care Paper Inspector Name | Role | Phone | + +------+ + | Bassam Ross DO | PCP | | + +------+ + Encounter Details +--------+------+ + + + | Date | Type | Department | Care Team | Description | +--------+------+ + + + | 06/16/ | Lab | Laboratory at [facility] | | Essential | | 2017 | | 3rd Floor [address] | | hypertension, | | | | [address] [place], | | benign; Sleep apnea, | | | | [place] [address] | | unspecified type; | | | | [phone] | | Gastroesophageal | | | | [...] Rd | | | | | | [place], [place] | | | | | | [address] | | | | | | [phone] | | | | | | | [...] + + | Blood | [facility] [place] [address] [place] [address] | | | [place] [address] | + + + HEMOGLOBIN A1C, BLOOD [...] + + | Blood | [facility], SPECIAL IMM + [facility] [address] [facility] | | | [place] [address] | + + + + + | Narrative | + + | Alternate forms of testing such as fructosamine should be considered for | | monitoring mcc glycemic control in patients with: Increased red [...] + + | Blood | [facility], CORE [address] | | | [place] [address] | + + + + + | [...] + + | Blood | [facility], CORE [address] [facility] | | | [place] [address] | + + + BASIC METABOLIC SET [...] | >60 | >60 mL/min | | ARGENTINE | | | + + + + | EGFR NON | >60 | >60 mL/min | | -ARGENTINE | | | + + + + [...] + + | Blood | [facility] [place], CORE [address] | | | [place] [address] | + + + + + | [...] | | ------ CBC (HEMOGRAM) | | ONLY[[id number]] Abnormal Final | | result Please view [...] characteristics | | | | determined by [employer]. See | | | | Compliance Statement B: | | | | National Institutes of Health (NIH)/CSPerformed by [employer] | | | | [facility],Rizwana VallecilloLIFEPOINT HOSPITALS,[place] [address] | | | | [phone].National Institutes of Health (NIH), Iker Angelo, | | | | , Lab. Director | | + + + + + + + | Specimen | Performing Laboratory | + + + | Blood | [facility] [address] [facility] | | | [place] [address] | + + + VITAMIN D, 25-HYDROXY, SERUM (06/16/2017 4:22 PM) + +-------+ + | Component | Value | Ref Range | + +-------+ + | VITAMIN D 25 HYDROXY | 44.8 | 30 - 80 ng/mL | + +-------+ + + + + | Specimen | Performing Laboratory | + + + | Blood | [facility], CORE [address] | | | [place] [address] | + + + + + | [...] | + + + | Blood | [facility], CORE [address] [place] [address] | | | [place] [address] | + + + PTH, SERUM (06/16/2017 4:22 PM) + +-------+ + | Component | Value | Ref Range | + +-------+ + | PTH, SERUM | 52 | 18 - 88 pg/mL | + +-------+ + + + + | Specimen | Performing Laboratory | + + + | Blood | [facility], CORE [address] | | | [place] [address] | + + + + + | [...]
[~2017-08-04 12:52] MED LIST changes: +CARDIZEM LA360 MG PO; +DESVENLAFAXINE50 M2 PO; +DILTIAZEM 24HR300 M1 PO; +METFORMIN HCL1000 MG PO
[2017-08-04] MEDS ORDERED: LORAZEPAM1 MG PO (15:45)
[2017-08-04] MEDS ORDERED: NORCO 5-325 TA1 EACH PO (15:46)
[2017-08-04] MEDS ORDERED: COUMADIN5 MG PO (15:57)
[2017-08-04] MEDS ORDERED: HYDROXYZINE PAM25 MG PO (15:59)
[2017-08-04] MEDS ORDERED: BUPROPION XL300 MG PO (16:04)
--- NOTE | 2017-08-04 17:45 | NUR ---
46 YR OLD FEMALE ADMITTED TO ROOM 128 FROM ER. PT ARRIVED VIA STRETCHER AND TRANSFERRED SELF TO BED. VITAL SIGNS TAKEN AND ABX GIVEN IV. RT CALLED AND NEB TX GIVEN, PT WITH EXP WHEEZES. LAB HERE AND BLOOD CULTURES DRAWN, ACCU CHECK 177 AND 3 UNITS NOVALOG INSULIN GIVEN. 22 GAUGE IV INSERTED IN LEFT THUMB AREA BY Katherin NAM RN. PT AC WELL. ASSESSMENT COMPLETED AND PT RESTING WITH HOB ELEVATED. OXYMASK ON AT 5L AND SATS 90%. PT STATES BEING HUNGRY AND ADA DIET ORDERED FOR DINNER.
--- NOTE | 2017-08-04 19:14 | NUR ---
PT COUGHING AND WAS INCONT OF SMALL AMT OF STOOL. PT UP TO BSC WITH ONE PERSON ASSIST AND HAD LG SEMI LIQ BROWN STOOL AND APPROX 300 MLS OF URINE. BED CHANGED AND PT RETURNED TO BED WITH HOB ELEVATED.
--- NOTE | 2017-08-04 20:30 | NUR ---
UPT TO BSC TO VOID AND THEN TO BARIATRIC CHAIR. PT AC TRANSFERS WELL. STATES BREATHING FEELS EASIER. WANTS TO SLEEP IN BARIATRIC CHAIR.
--- NOTE | 2017-08-04 23:02 | NUR ---
BACK TO BED, WAS UNABLE TO WEAR CPAP IN THE CHAIR. UP TO VOID ALSO. SCANT STOOL. AC AMB WELL.
--- NOTE | 2017-08-04 23:59 | NUR ---
ANNE MARIE STARKEY WAS CALLED FOR C/O BACK DISCOMFORT AND ORDER FOR FLEXERIL RECIEVED.
--- NOTE | 2017-08-05 00:01 | NUR ---
PT UNABLE TO AC CPAP IT IS LOUDER THAN ONE SHE USES AT HOME. ON 07 05 LNC. IS READY FOR SLEEP.
--- NOTE | 2017-08-05 01:39 | NUR ---
IS SLEEPING WITH [address] OCC DESATS TO 84% AND THEN RETURNS TO 90'S.
--- NOTE | 2017-08-05 02:56 | NUR ---
CONT TO SLEEP, HAS BEEN MAINTAINING SATS IN MID S.
--- NOTE | 2017-08-05 03:50 | NUR ---
AWAKE UP TO BSC TO VOID LARGE AMT URINE AND SMEAR STOOL. BACK TO BED AND IS SOB, BREATH TONES TIGHT. RT CALLED AND NEB GIVEN. FEELING BETTER. GIVEN JELLO PER REQUEST.
--- NOTE | 2017-08-05 06:32 | NUR ---
AWAKE, UP TO BSC TO VOID. IS MILDLY SOB WITH EXERTION. PT ASKING ABOUT FERRATIN LEVEL THAT WAS DRAWN IN [place]. TOLD HER TO ASK DR STARKEY ABOUT IT. CONT TO HAVE LOOSE COUGH.
--- NOTE | 2017-08-05 09:04 | NUR ---
PT AWAKE, DR. STARKEY IN TO ASSESS PT. VITAL SIGNS TAKEN AND ASSESSMENT COMPLETED. PT C/O OH HEADACHE "11/08" AND MEDICATED WITH TYLENOL 500 MG PO. PT UP TO MANOLO CHAIR AND EATING BREAKFAST WITHOUT PROBLEMS.
--- NOTE | 2017-08-05 12:44 | NUR ---
PT UP TO BSC, VOIDED 200 MLS YELLOW URINE, PT RETURNED TO MANOLO CHAIR AND ASSESS MENT COMPLETED. PT STATES HEADACHE PAIN BETTER "2/10". PT RESTING IN MANOLO CHAIR WATCHING TV.
--- NOTE | 2017-08-05 14:47 | NUR ---
BETH BAKER HERE AND INSERTED A MIDLINE IV FOR BETTER ACCESS FOR ABX THERAPY. PT AC WELL. PT RESTING IN BED WITHOUT C/O
--- NOTE | 2017-08-05 14:55 | NUR ---
MIDLINE INSERTION NOTE. ORDERS RECIEVED TO EVALUATE DEANN FOR POSSIBLE PICC PLACEMENT. WE EVALUATED HER ARMS WITH U/S AND DECIDED THAT WE WOULD ATTEMPT PERIPHERAL ACCESS FIRST. THREE ATTEMPTS WERE MADE AT PERIPHERAL ACCESS WHICH ALL RESULTED IN THE VEIN BEING ACCESSED AND ABLE TO FLUSH AND DRAW BLOOD. HOWEVER, THE CATHETER WOULD NOT ADVANCE UP HER VEIN IN ANY OF THESE SITES. TWO WERE TRIED BY ME AND ANOTHER BY JUAN A MARTIN (ANOTHER PICC RN). WE DECIDED THAT A MIDLINE WOULD INDEED BE BEST IN HER SITUATION. HER CCU RN AGREED. RISKS AND COMPLICATIONS OF MIDLINES WERE DISUSSED PRIOR TO THE START OF THE PROCEDURE AND THE PT GAVE VERBAL CONSENT AND STATED THAT SHE HAS HAD PICC LINES AND OTHER DEVICES BEFORE. THE RIGHT BASILIC VEIN WAS ACCESSED BUT THE GUIDWIRE WOULD NOT PASS UP THE VEIN. ATTENTION WAS TURNED TO THE CEPHALIC VEIN AND IT WAS ACCESSED ON THE FIRST ATTEMPT AND THE CATHETER PASSED EASILY UP THE VEIN. THERE WERE NO PROBLEMS ADVANCING THE GUIDEWIRE, INTRODUCER OR MIDLINE. THE LINE FLUSHED EASILY AND VIANEY BLOOD. REPORT WAS GIVEN TO THE PT'S CCU RN. EDUCATION GIVEN TO THE PT AND QUESTIONS ASNWERED. SHE TOLERATED THIS PROCEDURE WELL.
--- NOTE | 2017-08-05 15:59 | NUR ---
PT UP TO [facility] VOIDED APPROX 250 ML YELLOW URINE AND HAD MED BROWN SOFT NONFORMED BM. SPONGE BATH GIVEN AND HAIR WASHED WITH HEATED SHOWER CAP. PT TRANSFERRED TO MANOLO NIEVES AND CHELSIE FROM PHARMACY HERE TO TALK WITH PT ABOUT HER HOME MEDS.
--- NOTE | 2017-08-05 16:24 | NUR ---
Patient's medications reconciled by pharmacist using patient's pharmacy records and patient interview. Per patient, she no longer takes lorazepam although it was recently filled at her pharmacy
--- NOTE | 2017-08-05 18:20 | NUR ---
UP TO BSC, VOIDED 300 MLS YELLOW URINE. RETURNED TO MANOLO CHAIR, WATCHING TV. STATES HEAD ACHE PAIN DOWN TO "4/10".
--- NOTE | 2017-08-05 19:34 | NUR ---
REPORT RECEIVED FROM ISAC ALVAREZ. PT IS UP IN CHAIR EATING DINNER SLOWLY, WATCHING TV AND VISITING WITH FAMILY. DENIES NEEDS AT THIS TIME, ABX INFUSING THROUGH MIDLINE NO REDNESS SWELLING AT THIS SITE.
--- NOTE | 2017-08-05 19:50 | NUR ---
PT UP TO BSC FOR LOOSE STOOL, HR UP TO 127 WHILE UP THEN BACK TO CHAIR. ALERT AND ORIENTED, ASSESSMENT DONE. MINIMAL SOB WITH ACTIVITY. WILL TRY TO FINISH EATING HER DINNER, CALL LIGHT IN REACH.
--- NOTE | 2017-08-05 21:20 | NUR ---
RT IN TO DO NEB TX AND SET UP PTS HOME CPAP MACHINE.
--- NOTE | 2017-08-05 22:27 | NUR ---
IN TO DO HS MEDS, PT FINISHED EATING AN HOUR AGO BS 141 1 UNIT NOVOLOG GIVEN. PRN FLEXERIL GIVEN PER REQUEST. REMAINS UP IN CHAIR WITH CALL LIGHT IN HAND.
--- NOTE | 2017-08-05 23:00 | NUR ---
PT TO BSC TO VOID, SMALL AMOUNT OF LOOSE STOOL, TORITO AREA CLEANED, THEN PT TO BED TO TRY TO SLEEP WEARING HOME CPAP MACHINE WITH O2 BLEED IN.
--- NOTE | 2017-08-06 01:30 | NUR ---
PT HAS BEEN SLEEPING WEARING CPAP WITHOUT PROBLEMS. HR 80'S, RR 20 SPO2 94%.
--- NOTE | 2017-08-06 03:24 | NUR ---
ASSISTED PT TO BSC. PT ALSO RECEIVED 500MG OF PRN TYLENOL FOR PAIN. PT IS BACK IN BED RESTING. HR RATE WAS UP IN THE 150'S WHILE ON THE BSC, O2 SATS WERE IN THE 80'S WITH BI-PAP ON.
--- NOTE | 2017-08-06 05:10 | NUR ---
PT AWAKENS FOR ASSESSMENT AND LAB DRAW, DENIES NEEDS, CONTINUES TO WEAR CPAP, BACK TO SLEEP.
--- NOTE | 2017-08-06 07:40 | NUR ---
PT ASSISTED UP TO BEDSIDE COMMODE TO VOID, PT NEEDS ONE PERSON ASSIST TO GET BACK TO BED.
--- NOTE | 2017-08-06 08:50 | NUR ---
PT ABLE TO ORDER OWN BREAKFAST ON THE PHONE. PT ALERT AND ORIENTED X4, COOPERATIVE AND PLEASANT. PT AWARE THAT SHE WILL BE MOVING TO THE MED/SURG FLOOR TODAY.
--- NOTE | 2017-08-06 09:04 | NUR ---
PT RECEIVED 0900 MEDICATIONS. PT SITTING UP IN BED FOR BREAKFAST. NO C/O AT THIS TIME. ASSESSMENT DONE AND TOLERATED WELL.
--- NOTE | 2017-08-06 09:19 | NUR ---
PT MIDLINE FLUSHED WITH 10ML NS. SALINE LOCKED AND MIDLINE SITE ASSESSED AND INTACT. CALL LIGHT WITHIN REACH NO C/O AT THIS TIME.
--- NOTE | 2017-08-06 10:13 | NUR ---
PT UP TO BSC. PT SITTING UP IN CHAIR. CALL LIGHT WITHIN REACH NO C/O AT THIS TIME.
--- NOTE | 2017-08-06 10:45 | NUR ---
PT UP TO BSC, ABLE TO VOID AND HAVE A LARGE BM. PT AMBULATED TO BED, TORITO CARES DONE, NYSTOP POWDER APPLIED TO GROIN FOLDS. PT GOWN CHANGED, LINENS ON BED AND CHAIR CHANGED. PT AMBULATED BACK TO CHAIR.
--- NOTE | 2017-08-06 11:00 | NUR ---
PT TRANSFERED TO MED/SURG ROOM 125, ALL PERSONAL BELONGINGS TRANSFERED WITH PT. BARIATRIC BED AND CHAIR TRANSFERED TO ROOM 125 WITH PT. PT ALERT AND ORIENTED X4, DENIES PAIN AT THIS TIME.
--- NOTE | 2017-08-06 11:20 | NUR ---
PATIENT TO MED-SURG FLOOR FROM CCU VIA CHAIR. PATIENT DENIES PAIN AT THIS TIME. PATIENT IS ON 4L O2 VIA NC. PATIENT REPORTS PRODUCTIVE COUGH. PHYSICAL THERPIST WAS ROOM TO EVALUATE PATIENT. PATIENT IS IN THE SHOWER AT THIS TIME. STUDENT NURSE IS WITH PATIENT. WILL CONITNUE TO MONITOR.
--- NOTE | 2017-08-06 12:08 | NUR ---
PT MOVED TO NEW ROOM ON MEDSUR. ASSISTED WITH SHOWER. FOOT CARE DONE. INSULIN WAS NOT GIVEN DUE TO CBG PERAMITERS. FOCUSED ASSESSMENT ON RESPIRATORY FUNCTION.
--- NOTE | 2017-08-06 14:24 | NUR ---
PT VITAL SIGNS DONE AND TOLERATED. PT SITTING IN CHAIR. CALL LIGHT WITHIN REACH. NO DESIRES AT THIS TIME.
--- NOTE | 2017-08-06 15:39 | NUR ---
PATIENT RESTING IN THE CHAIR AT THIS TIME. REQUESTED NOTHING AT THIS TIME.
--- NOTE | 2017-08-06 16:28 | NUR ---
PT WAS ASSISTED TO RESTROOM. REMOVED TRAY AND DOCUMENTED.
--- NOTE | 2017-08-06 17:14 | NUR ---
MIDLINE FLUSHED WITH 1O ML NS. FOOT CARE DONE. PATIENT HAS NO COMPLAINTS AT THIS TIME.
--- NOTE | 2017-08-06 17:57 | NUR ---
PATIENT TRANSFER FROM CCU THIS AM. HAD BEEN SITTING IN THE CHAIR ALL DAY. HAD PT EVALUATION TODAY. MIDLINE ON THE RIGHT AC. IV ABX. PATIENT HAS PRODUCTIVE COUGH. NON-PITTING EDEMA AND REDNESS NOTED IN THE LOWER EXTREMITIES. SCHEDULE NEB TX. SBA. A&O. CALL APPROPRIATELY. ENCOURAGE I/S AND AMBULATION.
--- NOTE | 2017-08-06 18:15 | NUR ---
PT ASSISTED TO BATHROOM. SLIGHTLY OUT OF BREATH WHEN RETURNING TO CHAIR. PATIENT RESTING IN CHAIR. CALLLIGHT WITHIN REACH.
--- NOTE | 2017-08-06 19:10 | NUR ---
SHIFT REPORT RECIEVED AT BEDSIDE. PATIENT RESTING IN RECLINER. SHE REPORTS BEING TRIED FROM A LONG DAY BUT IS NOT READY TO GO TO BED YET. PATIENT ON 4L NC, O2 SAT 96%. NO NEEDS AT THIS TIME. CALL LIGHT IN REACH.
--- NOTE | 2017-08-06 20:05 | NUR ---
ROUNDED CHARGE. PATIENT IS RESTING IN RECLINER. PATIENT DENIES ANY COMMENTS, QUESTIONS, OR CONCERNS. NO NEEDS NOTED. CALL LIGHT IN REACH.
--- NOTE | 2017-08-06 21:25 | NUR ---
MEDS GIVEN PER ORDER. PATIENT UP TO THE BATHROOM, SBA. PATIENT APPEARS SLIGHTLY UNSTEADY ON HER FEET. PATIENT IS AAOX3. TOLERATING 4L NC, O2 SAT 98%. LUNG SOUNDS ARE DIMINISHED THROUGHOUT, EXP. WHEEZES IN BASES BILATERALLY. NYSTATIN APPLIED TO PANNIS, RED AREAS NOTED. IV ABX FINISHED, PATIENT HEPA-LOCKED. PATIENT REPORTS HAING AN EMOTIONAL DAY AFTER FINDING OUT SOMEONE SHE KNOWS IS ALSO A PATIENT HERE. ALLOWED PATIENT TO VERBILIZE THESE EMOTIONS AND DISCUSSED POSITIVE COPING. PATIENT IS NOW RESTING IN BED. DENIES ANY NEEDS. CALL LIGHT IN REACH. RT CONTACTED TO SET UP HOOME CPAP PER PATIENT REQUEST
--- NOTE | 2017-08-06 22:21 | NUR ---
PRN FLEXERIL PROVIDED PER PATIENT REQUEST FOR BACK PAIN. PATIENT UP TO THE BATHROOM. SBA. BACK IN BED. CPAP IN USE. OR SAT INTO 80S WITHOUT O2, UP TO 94% WITHIN 3MINS OF BEING BACK ON CPAP.
--- NOTE | 2017-08-07 00:50 | NUR ---
PATIENT'S PULSE OX WAS ALARMING FOR HR >200 BPM. REPOSITIONED THE PROBE AND TOOK MANUAL PULSE RATE. HR 98 BPM. PATIENT WAS SLEEPING BUT WOKE WHEN RN WAS IN ROOM. DENIES ANY PALPATIONS OR DISCOMFORT. NO NEEDS AT THIS TIME. PULSE OX NOW READIN HR 97 BPM.
--- NOTE | 2017-08-07 04:55 | NUR ---
PATIENT UP TO THE BATHROOM. SBA. IV VANCO STARTED PER ORDER. MIDLINE FLUSHES WELL BUT DOESN'T DRAW BACK BLOOD. PRN TYLENOL GIVEN FOR HEADACHE. PATIENT BACK IN BED. CPAP ON. O2 SAT 98%. PATIENT DENIES OTHER NEEDS. CALL LIGHT IN REACH.
--- NOTE | 2017-08-07 06:10 | NUR ---
PATIENT SLEPT WELL THROUGHOUT THE NIGHT. CPAP IN USE WITH 4L O2 BLEED IN. CONTINUOUS PULSE OX, O2 SAT 88-98% ENCOURAGED IS & DEEP BREATH & COUGH. PATIENT IS 1PA TO BATHROOM. TOLERATES WELL. PRN TYLENOL FOR HEADACHE. MIDLINE FLUSHES WELL, BUT DOES NOT PULL BACK BLOOD. HEPA-LOCKED BETWEEN IV ABX. NYSTATIN POWDER APPLIED UNDER PANIS.
--- NOTE | 2017-08-07 06:28 | NUR ---
VITALS AND I&OS DONE AND CHARTED. FRESH WATER GIVEN. BEDSIDE TABLE AND CALL LIGHT IN REACH.
--- NOTE | 2017-08-07 06:50 | NUR ---
morning med given per order. patient resting in bed with cpap on. patient request apple sauce which was provided to her. no other needs at this time.
--- NOTE | 2017-08-07 07:34 | NUR ---
REPORT RECEIVED AT BEDSIDE FROM CYN. PATIENT IN BED AWAKE. DENIES ANY PAIN AT THIS TIME. PATIENT WAS MEDICATED FOR HEADACHE BY TELEVISION PROGRAM DIRECTOR NURSE. IV ABX INFUSING. NO APPARENT DISTRESS. CALL LIGHT IN REACH.
--- NOTE | 2017-08-07 08:12 | NUR ---
ASSISTED PATIENT TO BATHROOM, THEN BACK TO BED. PATIENT DENIES PAIN AT THIS TIME. SHIFT ASSESSMENT DONE. EXPIRATORY WEEZE THROUGHOUT. PATIENT JUST HAD A NEB TREATMENT. 1+ EDEMA REDNESS NOTED IN THE LOWER EXTREMITIES. PATIENT DENIES PAIN IN THE LLE. ACTIVE BOWEL TONES. PATIENT STILL HAVE PRODUCTIVE COUGH WITH BROWN SPUTUM. PATIENT IS USING I/I AND ACAPPELA. RESTING IN THE CHAIR. BREAKFAST ORDER. MORNING MEDS ADMINISTERED. CALL LIGHT IN REACH.
--- NOTE | 2017-08-07 11:40 | NUR ---
PATIENT RESTING IN THE CHAIR. DENIES PAIN AT THIS TIME. RESPIRATORYH THERAPIST IN ROOM TO ADMINISTERED NEB TREATMENT.
--- NOTE | 2017-08-07 12:35 | NUR ---
PATIENT RESTING IN THE CHAIR. REPORTED 6/10 HEADACHE. PATIENT WAS MEDICATED. SBG CHECKED, NO INSULIN NEEDED. LUNCH ORDERED. FRESH WATER GIVEN. PATIENT STILL ON 4L OF 02 WITH HUMIDIFIER. NO OTHER REQUEST. WILL CONTNUE TO MONITOR PATIENT. CALL LIGHT IN REACH.
--- NOTE | 2017-08-07 12:44 | NUR ---
AT 1130 THIS MORNING GAVE PATIENT A SHOWER. ALSO WASHED HER HAIR. PATIENT ALSO BRUSHED HER TEETH. NOW SHE IS SITTING UP IN HER CHAIR.
--- NOTE | 2017-08-07 16:45 | NUR ---
PATIENT RESTING IN BED. DENIES PAIN AND SOB. STILL ON 4L OF 02. NO DISTRESS. PATIENT STATED THAT SHE WAS ABLE TO COUGH MORE AND HAVE MORE PHLEMG COMING UP. EVENING MED ADMINISTERED. IV SITE PATENT. CALL LIGHT IN REACH
--- NOTE | 2017-08-07 18:38 | NUR ---
PATIENT HAD AN UNEVENTFUL DAY. HAB BEEN UP TO BATHROOM MULTIPLE TIMES. STILL 4L OF 02. MILDLINE PATENT AND ABX INFUSING. PATIENT HAD SHOWERED TODAY. NYSTATIN POWDER APPLIED TO PANNUS. STILL HAVE PRODUCTIVE COUGH WITH MORE PHLEMGS. SCHEDULE NEB TX. CONT PULSE OXYMETER. CBG 130, NO INSULIN COVERAGE.
--- NOTE | 2017-08-07 19:20 | NUR ---
SHIFT REPORT RECIEVED. PATIENT APPEARS TO BE SLEEPING IN RECLINER. O2 SAT 97% ON 4L NC. CALL LIGHT IN REACH. IV ABX INFUSING PER ORDER.
--- NOTE | 2017-08-07 20:10 | NUR ---
IV ABX FINISHED. PATIENT SL. SHE IS ON THE PHONE AT THIS TIME. DENIES ANY NEEDS.
--- NOTE | 2017-08-07 21:00 | NUR ---
EVENING MEDS GIVEN PER ORDER. PATIENT IS UP IN RECLINER EATING ICE CREAM AND HER LEFT OVER SOUP. SHE REQUESTED HER PRN FLEXIRIL, WHICH WAS GIVEN TO HER. NO SS INSULIN COVERAGE REQUIRED. MIDLINE HEPA-LOCKED, DOES NOT RETURN BLOOD BUT FLUSHES WELL. LUNG SOUNDS HAVE IMPROVED. EXPIRTORY WHEEZES THROUGHOUT. ENCOURAGED COUGH AND DEEP BREATH AND IS. PATIENT HAS HAD MULTIPLE LIQUID STOOLS TODAY, STATES THAT IS NORMAL FOR HER. NO ABD DISCOMFORT. GOOD APPETITE. DENIES NEED FOR PRN NYSTATIN POWDER TONIGHT. STATES SHE WILL CALL WHEN SHE IS READY FOR BED. CALL LIGHT IN REACH.
--- NOTE | 2017-08-07 22:49 | NUR ---
HELPED PT TO THE BATHROOM AND BACK TO BED. PT HAD VERY LOOSE BM IN THE CHAIR AND ON THE TOILED. CLEANED UP CHAIR AND FLOOR WITH RED WIPES. CLEANED PT UP WITH BATH WIPES. A NEW GOWN WAS PUT ON. EMPTIED ALL GARBAGE AND WIPED DOWN TOILET AND BATHROOM FLOOR. INFORMED HER RN CYN. PER PT REQUEST SHE WANTED TO PUT ON HER C-PAP. I CALLED RT LATANYA TO HELP HER WITH THAT. PT NEEDED NOTHING MORE AT THIS TIME. BEDSIDE TABLE AND CALL LIGHT WITHIN REACH. ALSO FRESH ICE WATER GIVEN.
--- NOTE | 2017-08-07 23:15 | NUR ---
PATENT APPEARS TO BE SLEEPING. RR18. CPAP IN USE.
--- NOTE | 2017-08-08 01:55 | NUR ---
PATIENT SLEEPING SOUNDLY. CPAP IN USE. RR 18.
--- NOTE | 2017-08-08 04:45 | NUR ---
PATIENT UP TO THE BATHROOM. SBA. IV ABX STARTED. PRN TYLENOL FOR 5/10 HEADACHE. PATIENT PROVIDED FRESH ICE AND APPLE SAUCE PER REQUEST. STILL WEARING THE CPAP WITH 4L BLEED IN. O2 SAT 95%.
--- NOTE | 2017-08-08 06:06 | NUR ---
PATIENT RESTED WELL THROUGHOUT THE SHIFT. CPAP WITH 4L BLEED IN AT NIGHT. 4L NC WHEN AWAKE. SBA. CALLS APPROPRIATELY. LOOSE STOOLS X2. MIDLINE HEPA-LOCKED BETWEEN IV ABX, DOES NOT DRAW BACK BLOOD. PRN TYLENOL FOR HEADACHE.
--- NOTE | 2017-08-08 06:40 | NUR ---
morning meds given per order. patient in bed with cpap on. no needs at this time.
--- NOTE | 2017-08-08 10:43 | NUR ---
PROVIDED PATIENT WITH SHOWER, AND ASSISTED. PATIENT SKIN INTACT. NOTED FEW FADING BRUISES ON ARMS. SOME YEAST IRRITATION UNDER BREASTS, CLEANED, DRIED AND APPLIED NYSTATIN POWDER. PANNUS APPEARS CLEAR WITH NO IRRITATION TO SKIN. PATIENT HAD SMALL BOWEL MOVEMENT WHILE IN SHOWER. BACK TO RECLINER, CHANGED DRSG TO MIDLINE, STERILE PROCEDURE MAINTAINED. CUSTOMER ADVISOR SPECIALIST CHANGED BEDDING. CALL LIGHT WITHIN REACH. NO NOTED SOB WITH ACTIVITY, NC 4L 95%.
--- NOTE | 2017-08-08 13:49 | NUR ---
PATIENT UP AMBULATING IN [place] WITH 5L NC. INCREASED SOB, MANY STOPS, AMBULATED HAVE A LOOP. OXYGEN SATURATION 88% AND PULSE 110. NO COMPLAINTS OF DIZZINESS REPORTED HOWEVER PATIENT HAD TO HOLD ONTO HAND RAIL. DID NOT TOLERATE ACTIVITY WELL.
--- NOTE | 2017-08-08 15:04 | NUR ---
PATIENT SITTING UP IN RECLINER, FRIEND VISITING. NEW ORDER FOR FLONASE, NURSE INITIATED. PATIENT HAVING SOME DRYNESS AND BLOODY NOSES. PROVIDED PATIENT WITH FLONASE AND PATIENT DEMONSTRATED CORRECT USE OF SPRAY.
--- NOTE | 2017-08-08 16:02 | NUR ---
PATIENT AMBULATED IN HALLS TODAY, DID NOT TOLERATE ACTIVITY WELL. SHOWERED WITH STAFF ASSIST. CHANGED DRSG TO MIDLINE, FLUSHES WELL, NO BLOOD RETURN. PATIENT SITTING UP IN RECLINER MOST OF DAY. LOOSE STOOL SECONDARY TO ANTIBIOTICS. PATIENT USING IS, LUNG SOUNDS EXPIRATORY WHEEZING THROUGHOUT, 4L NC, CONTINUIOUS PULSE OX.
--- NOTE | 2017-08-08 17:37 | NUR ---
PATIENT WAS IN HER CHAIR, I DID VS, AND SHE REQUESTED A DIET COKE WITH A CUP OF ICE
--- NOTE | 2017-08-08 17:48 | NUR ---
NEW TELEPHONE ORDERS VIA DR. MOCK. DISCUSSED PATIENT'S BLODD SUGARS NEEDING NO COVERAGE OF INSULIN. ORDER TO DC CBG CHECKS AND SLIDING SCALE INSULIN. DISCUSSED PAIN CONTROL. ADMINISTERED TYLENOL Q4HRS PRN THROUGHOUT DAY, PATIENT REPORTED PAIN CONTROL NOT IMPROVED. NEW ORDER TO DC TYLENOL ORDER, AND START NORCO 5/325 1 TAB Q6 PRN. DISCUSSED POC WITH PATIENT, WHO APPEARED VERY PLEASED WITH NEW ORDERS.
--- NOTE | 2017-08-08 19:10 | NUR ---
SHIFT REPORT RECEIVED AT BEDSIDE. PATIENT MOVED FROM RECLINER TO BED. SHE STATES SHE IS MORE CONFIDENT IN GETTING A NEW IV NOW THAT SHE SPOKE TO MANPREET ALVAREZ. MANPREET WAS ON THE UNIT, DISCUSSED PLAN OF ACTION WITH HIM TO TRY FOR A DEEP 18G IV. HE SPOKE TO ABOUT THIS WELL.
--- NOTE | 2017-08-08 19:59 | NUR ---
iv successful. patient resting in bed now. receiving neb treatment. patient is happy with the iv placement, stated it was much better than last time and not painful. iv draws blood easily and flushes well.
--- NOTE | 2017-08-08 20:07 | NUR ---
CALLED TO ASSESS PT FOR POSSIBLE MIDLINE REPLACEMENT OR ALTERNATIVE VASCULAR ACCESS. AFTER REVIEWING THE CHART AND DISCUSSING CARE WITH THE PRIMARY RN AND DR LEHMAN, WE AGREED THAT A PERIPHERAL LINE SHOULD WORK FOR HER. THE PLAN AT THIS POINT IS THAT SHE WILL NEED TWO MORE DAYS OF IV ABX. U/S WAS USED TO ASSESS BOTH ARMS. THE LEFT ARM UNFORTUNATELY HAS NO GOOD SITES FOR A PERIPHERAL LINE. THE RIGHT ARM RECENTLY HAD A MIDLINE REMOVED FROM THE UPPER ARM. SHE HAS A SUITABLE VESSEL IN HER FOREARM (RADIALCEPHALIC VEIN) WHICH WAS ACCESSED ON THE FIRST ATTEMPT. SHE TOLERATED THIS VERY WELL TODAY. REPORT WAS GIVEN.
--- NOTE | 2017-08-08 20:18 | NUR ---
RT TITRATED PATIENT TO 2L NC. O2 SAT 92% AFTER 5 MINS. PATIENT VS WNL. LUNG SOUNDS ARE INSPIRTORY AND EXPIRTORY WHEEZE THROUGHOUT AFTER NEB TREATMENT. CONTINUES TO HAVE A CONGESTED COUGH. PAIN IS 1/10 GENERALIZED. NO NAUSEA. CONTINUES TO HAVE LOOSE STOOL. 1+ EDEMA IN LOWER EXTREMITIES BILATERALLY. 2+ IN FEET BILATERALLY. PATIENT APPETITE IS GOOD. EATING SNACKS AT THIS TIME. DENIES OTHER NEEDS. EVENING MEDS GIVEN PER ORDER.
--- NOTE | 2017-08-08 21:31 | NUR ---
PATIENT'S IV ABX FINISHED. FLUSHED IV SITE WELL WITH 10ML NS. PULLS BACK BLOOD AND FLUSHES WELL. NO PAIN AT SITE. COVERED WITH COBAN TO PROVECT SITE WHILE NOT IN USE. PATIENT DENIES ANY NEEDS AT THIS TIME.
--- NOTE | 2017-08-08 23:45 | NUR ---
PATIENT'S PULSE OX WAS NOT READING WELL AND ALARM WAS WAKING PATIENT UP. NEW SENSOR REQUIRED TO FIX THE PROBLEM. NO STANDING ORDER FOR CONTINUOUS PULSE OX WAS FOUND AND RT AGREED THE PATIENT DID NOT REQUIRE THIS. PULSE OX DC. PATIENT AGREEABLE TO THIS. SHE IS RESTING QUIETLY IN HER BED NOW. DENIES ANY NEEDS.
--- NOTE | 2017-08-09 01:57 | NUR ---
PATIENT APPEARS TO BE SLEEPING SOUNDLY. RR 20. CPAP IN USE.
--- NOTE | 2017-08-09 05:45 | NUR ---
ASSISTED PATIENT UP TO THE BATHROOM. IV ABX STARTED. IV FLUSHES AND DRAWS BLOOD EASILY. PATIENT REQUEST PRN NORCO FOR 7/10 GENERALIZED PAIN, WHICH WAS PROVIDED TO HER. FRESH ICE WATER AND APPLE SAUCE PROVIDED.
--- NOTE | 2017-08-09 06:26 | NUR ---
VITALS AND I&OS DONE AND CHARTED. BEDSIDE TABLE AND CALL LIGHT WITHIN REACH. PT NEEDS NOTHING MORE AT THIS TIME.
--- NOTE | 2017-08-09 06:45 | NUR ---
IV ABX STOPPED FOR 5MINS. FLUSHED WITH 10MLS. THEN 5MLS OF WASTED BLOOD. LABS DRAWN. IV FLUSHED AND ABX STARTED. MORNING MEDS GIVEN. PATIENT DENIES ANY NEEDS. RESTING IN BED WITH CPAP.
--- NOTE | 2017-08-09 07:40 | NUR ---
PT IN BED AWAKE. TOOK PT COFFEE AND FRESH ICE WATER.
--- NOTE | 2017-08-09 09:00 | NUR ---
UPDATED WB. PICKED UP GARBAGE IN ROOM.
--- NOTE | 2017-08-09 09:26 | NUR ---
PATIENT CONSUMED 100% OF BREAKFAST. ANTIBIOTICS INFUSED WELL, IV SITE INTACT. LUNG SOUNDS CLEAR WITH COUGH, DIMINISHED BASES. DISCUSSED POC FOR DAY, AND PAIN CONTROL. PLAN TO SHOWER LATER THIS MORNING.
--- NOTE | 2017-08-09 11:00 | NUR ---
SHOWERED PATIENT, STBY ASSISTANCE AND SOME ASSISTANCE WITH WASHING BODY. PATIENT HAD LARGE SOFT BM. AFTER SHOWER BACK TO RECLINER, TOLERATED ACTIVITY WELL. APPLIED NYSTATIN POWDER TO BREAST. VS STABLE.
--- NOTE | 2017-08-09 17:53 | NUR ---
PATIENT AMBULATED 1 LOOP IN HALLS, SOME EXPIRATORY WHEEZES AND INCREASED OXYGEN 5L TO MAINTAIN >THEN 90%. PATIENT STATED " I FEEL LIKE IT'S BETTER THEN YESTERDAY WALKING". PATIENT NOW SITTING UP IN RECLINER TALKING TO FAMILY ON PHONE. PROVIDED PATIENT WITH 1 TAB NORCO.
--- NOTE | 2017-08-09 18:07 | NUR ---
PATIET UP AMBUALTED IN HALLS, DID NOT TOLERATE ACTIVITY WELL, INCRASED SOB AND WHEEZING. SHOWERED. OXYGEN SATURATION 92% 2L AND TITRATED 5L NC WITH ACTIVITY. IV ANTIBIOTICS CONTINUE, IV SITE TO LFET WRIST FLUSHES WELL.
--- NOTE | 2017-08-09 19:38 | NUR ---
RECIEVED REPORT FROM DAY SHIFT NURSE. PATIENT SITTING UP IN CHAIR. VANCO INFUSING. NASAL CANNULA IN PLACE. PATIENT DENIES NEEDS AT THIS TIME. CALL LIGHT IN REACH.
--- NOTE | 2017-08-09 20:49 | NUR ---
PATIENT SITTING UP IN CHAIR. KEEPER HELPER IN TO ASSIST HER TO THE BATHROOM. DENIES NEEDS.
--- NOTE | 2017-08-09 21:14 | NUR ---
PATIENT C/O NECK AND LOWER BACK PAIN-PAIN MEDICATION ADMINISTERED PER JUL. PATIENT RESTING IN BED. RT IN TO ADMINISTER NEB TX. PATIENT DENIES FURTHER NEEDS. AT THIS TIME, CALL LIGHT IN REACH.
--- NOTE | 2017-08-09 23:22 | NUR ---
PATIENT RESTING IN BED. CPAP IN PLACE. STATES SHE JUST GOT UP TO THE BATHROOM WITH ASSISTANCE. DENIES NEEDS. CALL LIGHT IN REACH.
--- NOTE | 2017-08-10 01:58 | NUR ---
PATIENT RESTING IN BED. O2 AT 92% ON 3LPM VIA CPAP. DENIES NEEDS.
--- NOTE | 2017-08-10 03:18 | NUR ---
PATIENT SLEEPING. O2 AT 90% ON 3LPM VIA CPAP. CALL LIGHT IN REACH.
--- NOTE | 2017-08-10 04:02 | NUR ---
PATIENT SLEEPING. CPAP IN PLACE ON 3LPM. O2 AT 82%. INCREASED O2 TO 4LPM. O2 NOW 89-90%, WILL CONT. TO MONITOR.
--- NOTE | 2017-08-10 04:35 | NUR ---
ASSISTED PATIENT UP TO BATHROOM WITH NASAL CANNULA IN PLACE. VOIDED. ASSISTED PATIENT BACK TO BED. LUNGS ARE DIMINISHED. PATIENT HAS A DRY COUGH. +1 PITTING PEDAL EDEMA. PATIENT C/O PAIN 6/10 IN HER NECK AND BACK AND REQUESTED FOR PAIN MEDICATION. NORCO ADMINISTERED. CPAP NOW IN PLACE. TALKED WITH RT ABOUT HER DESATTING TENDENCIES, HE ASKED TO KEEP HER ON 3LPM FOR NOW. APPLESAUCE DELIVERED TO TAKE WITH NORCO. PATIENT DENIES FURTHER NEEDS. CALL LIGHT IN REACH.
--- NOTE | 2017-08-10 08:46 | NUR ---
PT AWAKE IN BED. HELPED PT TO BR. CHANGED LINENS. SET UP FOR BRK. SET UP CHAIR. PT IS NOW IN CHAIR WITH CALL LIGHT IN REACH.
--- NOTE | 2017-08-10 08:48 | NUR ---
RECIEVED BEDSIDE REPORT FROM KIM FRAGA. PT AWAKE AND ALERT IN BED WITH CPAP ON. PT REPORTS NO PAIN, ALL BELONGINGS IN REACH.
--- NOTE | 2017-08-10 11:08 | NUR ---
PT IS IN CHAIR, SLEEPING SOUNDLY. APPEARS COMFORTABLE. CALL LIGHT IN REACH.
--- NOTE | 2017-08-10 14:10 | NUR ---
PT SITTING IN CHAIR, ALERT AND ORIENTED. WELCOMED ME IN AND REQUESTED PRAYER. FOLLOWING PRAYER, PT STATED THAT SHE IS FEELING MUCH BETTER, WILL CONTINUE TO FOLLOW NEEDED
--- NOTE | 2017-08-10 15:02 | NUR ---
ASSISTED PT BACK TO BED. PT O2 DROPPED TO LOWER 70'S DURING TRANSFER W/O O2. ONCE IN BED AND CPAP PLACED, O2 INCREASED TO MID-80S. NO NEED FOR BATHROOM AT THIS TIME, DENIES NEED FOR PAIN MEDICATIONS AT THIS TIME, ALL PERSONAL BELONGINGS IN REACH, CALL LIGHT IN REACH.
--- NOTE | 2017-08-10 15:09 | NUR ---
PT IN CHAIR. TOOK TO THE BR. PICKED UP ROOM.
--- NOTE | 2017-08-10 15:41 | NUR ---
SPOKE WITH DR STARKEY RE: PROGRESS NOTE FROM DR LEHMAN STATING THIS PT NEEDS BLOOD SUGAR CHECKS AND SLIDING SCALE INSULIN. DR STARKEY ADVISED THAT HER BLOOD SUGARS HAVE BEEN GOOD AND SHE DOES NOT NEED SS INSULIN OR BLOOD SUGAR CHECKS.
--- NOTE | 2017-08-10 17:34 | NUR ---
RN STARTED VANCO INFUSION, PT IMMEDIATELY C/O OF SEVERE BURNING AND PAIN WHILE GRIMMACING AND MOANING. IV INFUSION STOPPED. PLACED CALL TO KIM VELAZCO TO ASSESS FOR PATENTCY AND POSSIBLE PLACEMENT OF AN ADDITIONAL LINE. KIM VELAZCO DETERMINED LINE WAS INFILTRATED. SHE WILL RETURN WITH SUPPLIES TO REPLACE LINE. DR STARKEY ADVISED OF PT REQUEST FOR ATIVAN. DR STARKEY ORDERED VISTERIL. WILL GIVE PRIOR TO IV PLACEMENT.
--- NOTE | 2017-08-10 18:47 | NUR ---
PT MAINTAINED O2 AT 3L, CHRONIC 2L AT HOME. DESATS WITH ACTIVITY. UP WITH PHYSICAL THERAPY. NEW IV ON RIGHT FOREARM, EXTENDENED LINE. FLUSHED X2 THIS SHIFT. UP TO CHAIR MULTIPLE TIMES. TOLERATING ADA DIET WELL. NORCO X1. CHRONIC CELLULITIS ON LOWER LEGS, NO CHANGES. FINISHED TAMIFLU.
--- NOTE | 2017-08-10 19:42 | NUR ---
RECIEVED REPORT FROM DAY SHIFT NURSE. PATIENT SITTING UP IN CHAIR. NASAL CANNULA IN PLACE AT 3LPM. O2 AT 93%. SHE ATE 100% OF DINNER. MEAL TRAY REMOVED. PATIENT DENIES NEEDS AT THIS TIME. CALL LIGHT IN REACH.
--- NOTE | 2017-08-10 21:30 | NUR ---
assisted patient up to bathroom. assisted with wiping. applied barrier cream to buttocks. reddness noted on buttock. patient did get sob with activity. lungs are diminished. dry cough noted. patient c/o neck and back pain. norco administered. patient denies further needs. call light in reach.
--- NOTE | 2017-08-10 22:19 | NUR ---
PATIENT ASKED 2 SHERBET, GIVEN.
--- NOTE | 2017-08-10 23:46 | NUR ---
PATIENT SLEEPING. CALL LIGHT IN REACH.
--- NOTE | 2017-08-11 00:24 | NUR ---
PATIENT SLEEPING. CPAP IN PLACE. O2 AT 3LPM. CONT PULSE OX IN PLACE, O2 AT 88%. CALL LIGHT IN REACH.
--- NOTE | 2017-08-11 00:48 | NUR ---
ASSISTED PATIENT TO BATHROOM. VOIDED AND HAD A BM. BACK TO BED. PATIENT DENIES FURTHER NEEDS. CALL LIGHT IN REACH.
--- NOTE | 2017-08-11 02:30 | NUR ---
PATIENT RESTING IN BED. O2 AT 90%. CALL LIGHT IN REACH. DENIES NEEDS.
--- NOTE | 2017-08-11 05:48 | NUR ---
ASSISTED PATIENT TO BATHROOM, VOIDED, BACK TO BED. LUNGS DIMINISHED, HACKING PRODUCTIVE COUGH NOTED. PATIENT ABLE TO COUGH UP THICK YELLOW SPUTUM THIS MORNING. C/O PAIN IN HER NECK AND BACK WHICH IS CHRONIC. PAIN MEDICATION ADMINISTERED PER PATIENT'S REQUEST. ABX STARTED. PATIENT DENIES FURTHER NEEDS. CALL LIGHT IN REACH.
--- NOTE | 2017-08-11 07:49 | NUR ---
RECEIVED REPORT FROM CARPET INSPECTOR FINISHED RN. PT APPEARS TO BE SLEEPING WITH BIPAP IN PLACE ON 5L. VANCO INFUSING. ON CONTINUAL PULSE OX @ NIGHT. CALL LIGHT WITHIN REACH.
--- NOTE | 2017-08-11 09:15 | NUR ---
PT UP TO BATHROOM ON 2L NC. PT DESATING TO 80%. INCREASES O2 TO 4L UNTILL SATS INCREASED TO MID 90'S. TITRATED BACK TO 2L WHEN SITTING DOWN. PT UP TO CHAIR. CALL LIGHT WITHIN REACH. PT REPORTED A HEADACHE 5/10. FLEXERIL GIVEN.
--- NOTE | 2017-08-11 10:05 | NUR ---
0942 RECEIVED A PHONE CALL FROM 'S SLEEP DR. CARTER IN [place] WHO RETURNED A CALL TO ME AFTER THE PATIENT PLACED ME ON THE PHONE WITH THE DOCTORS OFFICE I WAS EXITING THE ROOM. I SPOKE TO THE HOTEL LOBBY CONCIERGE, BERNADETTE, AT THE DOCTOR'S OFFICE IN [place] AND EXPLAINED WHAT THE PATIENT WAS INTENDING TO CALL FOR IN REGARDS TO HER POSSIBLY NEEDING MORE PRESSURE VIA BI-PAP RATHER THAN CPAP OF 18 WITH 5 LITER BLEED IN SHE IS STILL EXPERIENCING DESATURATIONS THROUGHOUT THE NIGHT. DR. CARTER CALLED ME BACK AND ASKED ME DIRECTLY "WELL, WHAT DO YOU WANT ME TO DO ABOUT IT? " I EXPLAINED THAT I INFORMED THE PATIENT SHE WOULD NEED TO MAKE AN APPOINTMENT TO SEE HIM FOR HIS RECOMMENDATIONS AND GET THE PRESSURE CHECKED TO ENSURE THERAPY WAS ADEQUATE. HE AGREED AND STATED HE WAS UNAWARE THE PATIENT WAS EVEN IN THE HOSPITAL, THAT THIS HOSPITAL NEEDS TO "SORT OUT WHY SHE WAS IN RESPIRATORY FAILURE," AND CONTINUED TO EXPRESS HIS FRUSTRATIONS IN A CONDESCENDING TONE TO ME. I ATTEMPTED TO EXPLAIN HER OXYGEN REQUIREMNETS HAVE INCREASED AND SHE WILL LIKELY NEED TO HAVE HER OXYGEN PRESCRIPTIOON INCREASED AND BE COMPLIANT WITH IT AT HOME AND THAT COULD BE ONE REASON SHE WAS FAILING UPON ADMISSION. ALSO THE FACT THAT THE PATIENT HAS BEEN TREATED FOR INFLUENZA B. THE PHYSICIAN REMAINED AGITATED THROUGHOUT OUR CONVERSATION AND DID NOT GIVE ME ANY DEFINITIVE ANSWER ABOUT WHAT TO DO TO HELP THE PATIENT BUT REMINDED ME "CPAP DOESN'T CAUSE RESPIRATORY FAILURE AND CPAP DOESN'T GO ANY HIGHER THAN A PRESSURE OF [id number]." I AGREED AND STATED YES, THAT WAS MY CONCERN AND I'M WONDERING IF SHE NEEDS TO BE EVALUATED FOR BIPAP TO HELP HER MAINTAIN HER OXYGEN AT NIGHT." THE DOCTOR RUSHED OFF THE PHONE HE HUNG UP WITHOUT RESOLUTION. PHONE CALL WAS A TOTAL OF 46 SECONDS. 1047 RECEIVED AN ADDITIONAL PHONE CALL FROM THE [facility] 'S OFFICE, THIS TIME WITH BERNADETTE, THE HOTEL LOBBY CONCIERGE WHO WAS PLEASANT AND SAID DR. CARTER WOULD LIKE TO SCHEDULE A ONE-HOUR FOLLOW UP APPOINTMENT WITH THE PATIENT WHICH IS SCHEDULED FOR 08/19/17 AT 1400. I INQUIRED ABOUT THE BIPAP SITUATION AND IF THIS APPOINTMENT WAS A TIME THAT THE BIPAP CAN BE ADDRESSED AT THAT TIME AND BERNADETTE SAID YES. I WILL CONVEY THE MESSAGE TO THE PATIENT THAT SHE NEEDS TO KEEP THIS APPOINTMENT AND WRITE DOWN THE QUESTIONS SHE HAS TODAY THAT SHE NEEDS TO ASK HER DRMahendra ON 08/19/17. UP
--- NOTE | 2017-08-11 10:57 | NUR ---
PATIENT RESTING IN BED WITH EYES CLOSED. LINENS CHANGED. CALL LIGHT WITHIN REACH. NO OTHER NEEDS AT THIS TIME.
--- NOTE | 2017-08-11 14:45 | NUR ---
TRIED SEVERAL TIMES TO VISIT PT-ALWAYS ON PHONE. WILL CONTINUE TO TRY AND CONNECT WITH PT
--- NOTE | 2017-08-11 14:45 | NUR ---
CARE CONFERENCE ATTENDEES: PATIENT STAFF: DR STARKEY, MYSELF CASE MANAGEMENT, [facility], [facility] DR STARKEY DISCUSSED PT CONDITION WITH HER, STATING THAT HER O2 NEEDS HAVE DECREASED, YET STILL NEEDING O2 2L AT REST AND MORE WITH ACTIVITY AND THAT SHE IS NEEDING MORE PT FROM DECONDITIONING FROM HER ILLNESS. WANTING TO MOVE PT TO TRANSITIONAL SWING BED CARE, NEEDS INSURANCE AUTH PRIOR TO THIS. PT IS OK WITH THIS SHE STATES SHE DOESN'T WANT TO GO HOME AND HAVE A REOCCURANCE AND END UP RETURNING TO THE HOSPITAL. PT DENIES FURTHER QUESTIONS, WILL CONT TO FOLLOW HER DURING HER STAY HERE.
--- NOTE | 2017-08-11 15:16 | NUR ---
PATIENT RESTING IN HER CHAIR. THIS DEVELOPMENT TECHNOLOGIST ASSISTED PATIENT TO THE RESTROOM AND BACK TO CHAIR. 1P STAND BY ASSIST. RT IN ROOM. CALL BUTTON WITHIN REACH. NO OTHER NEEDS AT THIS TIME.
--- NOTE | 2017-08-11 17:59 | NUR ---
ON 3L O2. INR 1.7. 2+ PITTING EDEMA IN LE. CPAP WITH 5L AT NIGHT. PLAN TO GET STRONG WITH PT FORDISCHARGE. POSS WING BED. UP TO CHAIR X3. NO ACCU CHECKS. PT DESATS WHEN WALKING. STAYS ABOVE 90% ON 5L WHEN WALKING. CONTINUAL PULSE OX. HACKING COUGH. SBA. LUNGS DIM WITH EXW. DROPLET PRECAUTIONS. IV IN RIGHT ARM
--- NOTE | 2017-08-11 19:28 | NUR ---
IN ROOM FOR REPORT. PT IS AWAKE IN BED AND DENIES NEEDS AT THIS TIME.
--- NOTE | 2017-08-11 22:06 | NUR ---
ADMINISTERED MEDS AND HELPED PT TO RESTROOM. PT DENIES FURTHER NEEDS AT THIS TIME AND CALL LIGHT IS WITHIN REACH.
--- NOTE | 2017-08-12 00:05 | NUR ---
PT IS RESTING WITH EYES CLOSED, RESPIRATIONS EVEN AND NONLABORED ON CPAP WITH 5L O2. CALL LIGHT IS WITHIN REACH.
--- NOTE | 2017-08-12 01:32 | NUR ---
PT IS RESTING WITH EYES CLOSED, RESPIRATIONS EVEN AND NONLABORED ON CPAP WITH 5L O2. CALL LIGHT IS WITHIN REACH.
--- NOTE | 2017-08-12 03:21 | NUR ---
PT IS RESTING WITH EYES CLOSED, RESPIRATIONS EVEN AND NONLABORED. CALL LIGHT IS WITHIN REACH AND CPAP/O2 ON.
--- NOTE | 2017-08-12 04:38 | NUR ---
PT WOKE AND REQUESTED PAIN MEDICINE. BROUGHT PT 1 NOCO. PT DENIES FURTHER NEEDS AT THIS TIME.
--- NOTE | 2017-08-12 05:24 | NUR ---
PT STATES SHE SLEPT WELL THROUGH THE NIGHT AND THAT SHE IS A HEAVY SLEEPER. SHE IS A STANDBY ASSIST. SHE WORE HER CPAP ALL NIGHT WITH 5L 02. PT IS ON 3 L NC DURING THE DAY AND UP TO 5 WHILE UP AND MOVING. PT WEARS CHRONIC O2 AT HOME 2-3 L. SHE IS ON CONTINUOUS PULSEOX. PRN NYSTATIN WAS APPLIED UNDER PANNUS AND UNDER BREASTS.
--- NOTE | 2017-08-12 07:35 | NUR ---
REPORT RECEIVED AT BEDSIDE FROM KOOSHAREM.ASSUMING PATIENT CARE AT THIS TIME. PATIENT AWAKE IN BED CPAP ON . HAD NO COMPLAINTS. WHITE BOARD UPDATE. CALL LIGHT IN REACH.
--- NOTE | 2017-08-12 09:40 | NUR ---
PATIENT WAS ASSISTED BY CNAs TO BATHROOM. PATIENT REPORTS 6/10 PAIN IN THE NECK AND BACK. PATIENT WAS MEDICATED FOR PAIN. SHIFT ASSESSMENT DONE. LUNGS DIM IN THE BASES. MODERATE EDEMA IN THE LOWER EXTREMITIES. REDNESS NOTED IN LLE THAT SHOWED IMPROVEMENT FROM LAST WEEK. NO ACUTE DISTRESS NOTED. PATIENT UP TO BATHROOM TO SHOWER, AND LINENS CHANGED BY LAW ENFORCEMENT INSTRUCTOR.
--- NOTE | 2017-08-12 10:02 | NUR ---
THIS CHEMICAL APPLICATOR ASSISTED PATIENT WITH A SHOWER. PATIENT HAD A NOSE BLEED AND RN WAS IN THE ROOM WHEN IT HAPPENED. PATIENTS NOSE IS NOT BLEEDING ANYMORE. LINEN CHANGED. PATIENT IS NOW IN CHAIR VISITING WITH A FRIEND. PATIENT IS NOW OFF ISOLATION PRECAUTIONS. CALL LIGHT WITHIN REACH. NO OTHER NEEDS AT THIS TIME.
--- NOTE | 2017-08-12 12:25 | NUR ---
ASSISTED PATIENT TO BATHROOM, THEN BACK TO THE CHAIR. PATIENT REQUESTED FLEXERIL. PATIENT WAS MEDICATED. PATIENT RESTING IN THE CHAIR AT THIS TIME EATING LUNCH. CALL LIGHT IN REACH
--- NOTE | 2017-08-12 14:21 | NUR ---
PATIENT RESTING IN THE CHAIR. REPORT NO NEEDS AT THIS TIME. REQUESTED TO GO FOR WALK LATER. CALL LIGHT IN REACH.
--- NOTE | 2017-08-12 14:46 | NUR ---
PATIENT UP AMBULATING WITH PHYSICAL THERAPIST.
[2017-08-16] MEDS ORDERED: ONDANSETRON ODT4 MG SL (22:24)
[2017-08-16] MEDS ORDERED: EMVERM100 MG PO (22:24)
[2017-09-01] MEDS ORDERED: COUMADIN5 MG PO (15:14)
== END 2017-08-12 16:00 | disposition swing bed (61) | DRG 193 ==
LOC: ED 12:52 → CCU 15:22 → MS 08-06 11:00
PROVIDERS: ADMIT Internal Medicine
PROC: 05H533Z Insertion of Infusion Device into Right Subclavian Vein, Percutaneous Approach (ICD-10-PCS; principal; 2017-08-05)
DX: J10.08 Influenza due to other identified influenza virus with other specified pneumonia (principal); J96.01 Acute respiratory failure with hypoxia; J96.02 Acute respiratory failure with hypercapnia; Z68.45 Body mass index [BMI] 70 or greater, adult; I48.91 Unspecified atrial fibrillation; J45.40 Moderate persistent asthma, uncomplicated; G47.33 Obstructive sleep apnea (adult) (pediatric); K21.9 Gastro-esophageal reflux disease without esophagitis; E11.9 Type 2 diabetes mellitus without complications; E78.5 Hyperlipidemia, unspecified; E03.9 Hypothyroidism, unspecified; F41.9 Anxiety disorder, unspecified; F32.9 Major depressive disorder, single episode, unspecified; G25.81 Restless legs syndrome; E66.01 Morbid (severe) obesity due to excess calories; Z87.891 Personal history of nicotine dependence; Z88.0 Allergy status to penicillin
CPT/HCPCS: 36415; 36569; 36600; 71045; 80053; 80069; 80202; 82803; 83880; 85025; 85610; 87040; 87070; 87205; 87502; 94640; 94660; 94667; 94668; 94762; 96374; 97110; 97116; 97161; 97162; 97165; 99285; J0456; J0696; J1650; J2930; J3370; J7040; J7060

== ENCOUNTER 2017-08-12 16:00 | Inpatient (IN) | payer OTHER ==
[~2017-08-12] VITALS: Ht 160 cm; Wt 193.0 kg
--- OUTSIDE RECORDS SUMMARY | ~2017-08-12 | XMS | Clinical Summary ---
Demographics + + + | Address | [address] | | | [place] [address] | + + + | Home Phone | | + + + | Preferred Language | Unknown | + + + | Marital Status | Single | + + + | Jewish Affiliation | NON | + + + [...] Team Providers + +------+ + | Care Field Account Manager Name | Role | Phone | + +------+ + | Bassam Ross DO | PP | | + +------+ + Source Comments SHERIE is fully live on both [facility] and [facility] InPatient.[facility] Allergies + + + + + + [...] Morbid obesity with BMI of 60.0-69.9, adult ([facility]) | 02/25/2016 | + + + | [...] | | | | adult ([facility]); | | | | | | Diabetes mellitus | | | | | | type 2, | | | | | | diet-controlled | | | | | | ([facility]) | +--------+ + + + + | [...] | | | | adult ([facility]); | | | | | | [...] | Heart Disease | Father | | CT 76 | + + +------+ + | [...] | | 2018 | Visit | | [address] [facility] | | | | | | [address] | | | | | | [place], [place] | | | | | | [address] | | | | | | [phone] | | | | | | | [...] | | | | | | | /[phone] | | | | | | | | 329 | + +------+--------+ +--------+--------+--------+ | Dion Velamplanted: Qty: | | N/A: | | | 08/29/ | BSGE | | 2 on 02/07/2015 by Dianelys Reed | | | 2018 | [id number] / | | Dori Ferris MD | | n | | | | | | | | | | | | /[address] | | | | | | | | 327 | + +------+--------+ +--------+--------+--------+ Procedures + +--------+ + + + | Procedure Name | Priori | Date/Time | Associated Diagnosis | Comments | | | ty | | | | + +--------+ + + + | CO MNT RE-ASSESSMNT | Routin | 06/17/2017 | [...] | + + + | Blood | [facility], CORE [address] [place] [address] | | | [place] [address] | + + + VITAMIN B1, WHOLE [...] characteristics | | | | determined by [employer]. See | | | | Compliance Statement B: | | | | [employer]/CSPerformed by [employer] | | | | [facility],[address] [place] [address],[place] [address] | | | | [phone].[employer], Iker Angelo, | | | | , Lab. Director | | + + + + + + + | Specimen | Performing Laboratory | + + + | Blood | [facility] [address] | | | [place] [address] | + + + VITAMIN D, 25-HYDROXY, SERUM (06/16/2017 4:22 PM) + +-------+ + | Component | Value | Ref Range | + +-------+ + | VITAMIN D 25 HYDROXY | 44.8 | 30 - 80 ng/mL | + +-------+ + + + + | Specimen | Performing Laboratory | + + + | Blood | [facility], CORE [address] [place] [address] | | | [place] [address] | + + + + + | [...] | >60 | >60 mL/min | | FINNISH | | | + + + + | EGFR NON | >60 | >60 mL/min | | -FINNISH | | | + + + + [...] | + + + | Blood | [facility], CORE [address] | | | [place] [address] | + + + + + | [...] | | ------ CBC (HEMOGRAM) | | ONLY[[id number]] Abnormal Final | | result Please view [...] | + + + | Blood | [facility], CORE [address] | | | [place] [address] | + + + PTH, SERUM (06/16/2017 4:22 PM) + +-------+ + | Component | Value | Ref Range | + +-------+ + | PTH, SERUM | 52 | 18 - 88 pg/mL | + +-------+ + + + + | Specimen | Performing Laboratory | + + + | Blood | [facility], CORE [address] [facility] | | | [place] [address] | + + + + + | [...] | + + + | Blood | [facility], CORE [address] | | | [place] [address] | + + + + + | [...] | + + + | Blood | [facility], CORE [address] | | | [place] [address] | + + + HEMOGLOBIN A1C, BLOOD [...] | + + + | Blood | [facility], SPECIAL IMM + COAG [address] [facility] | | | [place] [address] | + + + + + | Narrative | + + | Alternate forms of testing such as fructosamine should be considered for | | monitoring intermodal customer service glycemic control in patients with: Increased red cell turnover, | | certain hemoglobinopathies (e.g., HbS, HbE, HbC and thalassemia syndromes), anemias, | | blood loss, chronic liver disease and hemochromatosis (artefactually low HbA1c); iron | | deficiency anemia (artefactually high HbA1c due to enhanced glycation of hemoglobin). | | | + + from Last 3 Months
--- OUTSIDE RECORDS SUMMARY | ~2017-08-12 | XMS | Encounter Summary ---
Demographics + + + | Address | [address] | | | [place] [address] | + + + | Home Phone | | + + + | Preferred Language | Unknown | + + + | Marital Status | Single | + + + | Methodist Affiliation | NON | + + + [...] Team Providers + +------+ + | Care Lehr Stripper Name | Role | Phone | + [...] | Non [facility] | Diagnoses | [facility], | Non-[facility] | | | | Department | S/P | Hansa Hawkins, | Epic Dept | | | | | laparoscopic | AGACNP [address] | | | | | | sleeve | [address] | | | | | | gastrectomy | [place], | | | | | | Iron | [place] | | | | | | deficiency | [address] | | | | | | Procedures | Phone: | | | | | | CONSULT TO | [phone] | | | | | | NON - [facility] | Fax: | | | | | | PROVIDER | [phone] | | + +--------+ + + + + Encounter Details +--------+ + + + + | Date | Type | Department | Care Team | Description | +--------+ + + + + | 06/25/ | MyChart | Digestive Health | Hansa Hawkins, | RE:Follow-up | | 2018 | Encounter | Center at [facility] 6th | [facility] [address] | | | | | [facility] [address] | [place], [place] | | | | | mil Mailcode: [facility] | [address] | | | | | [place] for [facility] | [phone] | | | | | and [facility] | | | | | | [place], [place] | | | | | | [address] | | | | | | [phone] | | | +--------+ + + + [...] Rd | | | | | | [place], [place] | | | | | | [address] | | | | | | [phone] | | | | | | | | +--------+---------+ + + + as of this encounter Visit Diagnoses + + | Diagnosis | + + | S/P laparoscopic sleeve gastrectomy - Primary | + + | Iron deficiency | + + | Other disorders of iron metabolism | + +"
--- OUTSIDE RECORDS SUMMARY | ~2017-08-12 | XMS | Encounter Summary ---
Demographics + + + | Address | [address] | | | [place] [address] | + + + | Home Phone [...] Team Providers + +------+ + | Care Sea Shell Gatherer Name | Role | Phone | + +------+ + | Bassam Ross DO | PCP | | + +------+ + Encounter Details +--------+------+ + + + | Date | Type | Department | Care Team | Description | +--------+------+ + + + | 06/16/ | Lab | Laboratory at [facility] | | Essential | | 2017 | | 3rd Floor [address] | | hypertension, | | | | [address] [place], | | benign; Sleep apnea, | | | | [place] [address] | | unspecified type; | | | | [phone] | | Gastroesophageal | | | | [...] [address] | | | | | | [place], [place] | | | | | | [address] | | | | | | [phone] | | | | | | | [...] | + + + | Blood | [facility] [address] [place] [address] | | | [place] [address] | + + + HEMOGLOBIN A1C, BLOOD [...] | + + + | Blood | [facility] SPECIAL IMM + [facility] [address] [facility] | | | [place] [address] | + + + + + | [...] | + + + | Blood | [facility], CORE [address] | | | [place] [address] | + + + + + | [...] | + + + | Blood | [facility], CORE [address] [facility] | | | [place] [address] | + + + BASIC METABOLIC SET [...] | >60 | >60 mL/min | | PERUVIAN | | | + + + + | EGFR NON | >60 | >60 mL/min | | -PERUVIAN | | | + + + + [...] | + + + | Blood | [facility], CORE [address] | | | [place] [address] | + + + + + | [...] | | ------ CBC (HEMOGRAM) | | ONLY[[id number]] Abnormal Final | | result Please view [...] characteristics | | | | determined by [employer]. See | | | | Compliance Statement B: | | | | [facility]/CSPerformed by [employer] | | | | [facility] [place] [address] | | | | [phone], Iker Angelo, | | | | , Lab. Director | | + + + + + + + | Specimen | Performing Laboratory | + + + | Blood | [facility] [address] [facility] | | | [place] [address] | + + + VITAMIN D, 25-HYDROXY, SERUM (06/16/2017 4:22 PM) + +-------+ + | Component | Value | Ref Range | + +-------+ + | VITAMIN D 25 HYDROXY | 44.8 | 30 - 80 ng/mL | + +-------+ + + + + | Specimen | Performing Laboratory | + + + | Blood | [facility], CORE [address] | | | [place] [address] | + + + + + | [...] + + + | Blood | [facility], CORE [address] [place] [address] | | | [place] [address] | + + + PTH, SERUM (06/16/2017 4:22 PM) + +-------+ + | Component | Value | Ref Range | + +-------+ + | PTH, SERUM | 52 | 18 - 88 pg/mL | + +-------+ + + + + | Specimen | Performing Laboratory | + + + | Blood | [facility], CORE [address] | | | [place] [address] | + + + + + | [...]
--- OUTSIDE RECORDS SUMMARY | ~2017-08-12 | XMS | Encounter Summary ---
Demographics + + + | Address | [address] | | | [place] [address] | + + + | Home Phone | | + + + | Preferred Language | Unknown | + + + | Marital Status | Single | + + + | Cheondoism Affiliation | NON | + + + [...] Providers + +------+ + | Care Floor Worker Name | Role | Phone | [...] | | | | | | | [facility] Center | | | | | | | for Health | | | | | | | and Healing | | | | | | | [place], [place] | | | | | | | [address] | | | | | | | Phone: | | | | | | | [phone] | | | | | | | Fax: | | | | | | | [phone] | + +--------+ + + + + Encounter Details +--------+---------+ + + + | Date | Type | Department | Care Team | Description | +--------+---------+ + + + | 06/16/ | Office | Digestive Health | Mihaela Villa, | S/P laparoscopic | | 2018 | Visit | Center at [facility] 6th | [address] | sleeve gastrectomy | | | | Floor [address] | [address] | (Primary Dx) | | | | Ave Mailcode: | [place], [place] | | | | | [facility] Center for | [address] | | | | | Health and Healing | | | | | | [place], [place] | | | | | | [address] | | | | | | [phone] | | | +--------+---------+ + + + [...] Ross DO [address] [place] [address] Documented time of visit: 2:33 to 3:03 (30 minutes [id number] with patient) Surgery: Sleeve Gastrectomy Date of Surgery: 02/07/15 Subjective: Continues to have an infection in leg. Lost her dad last ANTONIO. Went to the [place] [employer] loss conference [place] last year. Wanting some options in regards [...] echo and chest xray findings. Followed by sterile processing technician in [place]. Shortness of breath Thyroid disease Food logs: [...] multivitamin & mineral (with iron) supplement, 2/day -3210-6136 mg calcium citrate with vitamin D/day (take in divided doses, not within 2 hour s of multivitamin or iron supplement) -500 mcg/day sublingual B12 supplement (or monthly injections) Continued to reinforce importance of mindful eating. Continue to increase physical activity. Follow up Mihaela cooper RD,[place] Pager# [phone] Phone: [phone] in this encounter Plan of Treatment +--------+---------+ + + + | Date | Type | Specialty | Care Team | Description | +--------+---------+ + + + | 01/08/ | Office | Cardiology | Juan Antonio Mclaughlin, | | | 2017 | Visit | | [address] | | | | | | [address] | | | | | | [place], [place] | | | | | | [address] | | | | | | [phone] | | | | | | | [...]
--- OUTSIDE RECORDS SUMMARY | ~2017-08-12 | XMS | Encounter Summary ---
Demographics + + + | Address | [address] | | | [place] [address] | + + + | Home Phone [...] + + + | Author | [facility] | + + + | Organization | [facility] | + + + | [...] + +------+ + | Care Front Desk Lead Name | Role | Phone | + [...] | | | | | type | [address] | [address] | | | | | Gastroesopha | Phone: | Phone: | | | | | geal reflux | [phone] | [phone] | | | | | disease, | Fax: | Fax: | | | | | esophagitis | [phone] | [phone] | | | | | presence not [...] | | | | Sleep apnea, | [place], | Physicians | | | | | unspecified | [place] | Pavilion | | | | | type | [address] | Physicians | | | | | Gastroesopha | Phone: | Pavilion | | | | | geal reflux | [phone] | [place], [place] | | | | | disease, | Fax: | [address] | | | | | esophagitis | [phone] | Phone: | | | | | presence not | | [phone] | | | | | specified | | Fax: | | | | | Vitamin D | | [phone] | | | | | deficiency | [...] | | | | | | | [address] | | | | | | | for Health | | | | | | | and Healing, | | | | | | | 6th floor | | | | | | | [place], [place] | | | | | | | [address] | | | | | | | Phone: | | | | | | | [phone] | | | | | | | Fax: | | | | | | | [phone] | + +--------+ + + + + Encounter Details +--------+---------+ + + + | Date | Type | Department | Care Team | Description | +--------+---------+ + + + | 06/16/ | Office | Digestive Health | Hansa Hawkins, | S/P laparoscopic | | 2018 | Visit | Center at [facility] 6th | AGACNP [address] | sleeve gastrectomy | | | | Floor [address] | [address] [place], [place] | (Primary Dx); | | | | Ave Mailcode: [facility] | [address] | Essential | | | | [facility] | | hypertension, | | | | and Healing, 6th | | benign; Sleep apnea, | | | | floor [place], [place] | | unspecified type; | | | | [address] | | Gastroesophageal | | | | [...] | | | | | | adult ([facility]); | | | | | | Diabetes mellitus | | | | | | type 2, | | | | | | diet-controlled | | | | | | ([facility]) | +--------+---------+ + + + [...] PM PST-start journaling food intake again, download [employer] [place] samuel. -make appt with Mihaela for nutritional [...] a "partial sleeve". Activity: Walking daily, with zoroastrianism friends. Fluids: getting 64 oz fluid daily. [...] echo and chest xray findings. Followed by head control clerk in [place]. Shortness of breath Thyroid disease Past Surgical History Procedure Laterality Date C section 1998 Tonsillectomy 1996 Knee surgery 1996 Gastric banding 2004, 2007, 2011 Skin and subcutaneous tissue surgery 2006 Foot surgery 2009 - 2010 3x Hysterectomies, vaginal 2009 Appendectomy for ruptured appendix with abscess 2012 Gallbladder surgery 2008 Laparotomy 07/2014 Laparoscopic sleeve gastrectomy 02/07/2015 [facility] Brianna Social History Social [...] sinus rhythm. Normal ECG Records reviewed from [facility] (see media tab): Echocardiogram 11/18/2013: 1. [...] There is no pericardial effusion.21. No mass [id number]. Po or visualization. Definity was used to opacify the left ventricular chamber and improve deli neation of the endocardial border. Family History Problem Relation Diabetes Father Hypertension Mother Obesity Mother Hypertension Father Heart Disease Father CA 78 Allergies Allergies Allergen Reactions Advair Diskus [...] is having daily. -I suggested making another mesh man appt for next month to discuss possible [...] to plan and will call and/or send [employer] message if any issues. Start time 314, end time 349. I spent a total of 35 minutes face to face with this patie nt. Over 50% of visit was in counseling. MILAD Rodriguez-RENETTA Bariatric Surgery Nurse Practitioner [facility] | [id number] | [place], [place] | [address] | in this encounter Plan of Treatment +--------+---------+ + + + | Date | Type | Specialty | Care Team | Description | +--------+---------+ + + + | 01/08/ | Office | Cardiology | Juan Antonio Mclaughlin, | | | 2017 | Visit | | MD [address] | | | | | | [address] | | | | | | [place], [place] | | | | | | [address] | | | | | | [phone] | | | | | | | [...] | + + + | Blood | [facility], SPECIAL IMM + [facility] [address] [facility] | | | [place] [address] | + + + + + | Narrative | + + | Alternate forms of testing such as fructosamine should be considered for | | monitoring long term care social worker glycemic control in patients with: Increased [...] | + + + | Blood | [facility], CORE [address] [facility] | | | [place] [address] | + + + + + | [...] | + + + | Blood | [facility], CORE [address] [place] [address] | | | [place] [address] | + + + BASIC METABOLIC SET [...] | >60 | >60 mL/min | | [place] | | | + + + + | EGFR NON | >60 | >60 mL/min | | -[place] | | | + + + + [...] + | Blood | [facility] CORE [address] | | | [place] [address] | + + + + + | [...] | | ------ CBC (HEMOGRAM) | | ONLY[[id number]] Abnormal Final | | result Please view [...] characteristics | | | | determined by [employer]. See | | | | Compliance Statement B: | | | | [email or web address]/CSPerformed by [facility] | | | | [address] [address] | | | | [phone], Iker Angelo, | | | | Katherin BECKHAM. Director | | + + + + + + + | Specimen | Performing Laboratory | + + + | Blood | [facility] [address] [facility] | | | [place] [address] | + + + VITAMIN D, 25-HYDROXY, SERUM (06/16/2017 4:22 PM) + +-------+ + | Component | Value | Ref Range | + +-------+ + | VITAMIN D 25 HYDROXY | 44.8 | 30 - 80 ng/mL | + +-------+ + + + + | Specimen | Performing Laboratory | + + + | Blood | [facility], CORE [address] [facility] | | | [place] [address] | + + + + + | [...] | + + + | Blood | [facility], CORE [address] [facility] [address] | | | [place] [address] | + + + PTH, SERUM (06/16/2017 4:22 PM) + +-------+ + | Component | Value | Ref Range | + +-------+ + | PTH, SERUM | 52 | 18 - 88 pg/mL | + +-------+ + + + + | Specimen | Performing Laboratory | + + + | Blood | [facility], CORE [address] [facility] | | | [place] [address] | + + + + + | [...]
--- OUTSIDE RECORDS SUMMARY | ~2017-08-12 | XMS | Clinical Summary ---
Demographics + + + | Address | [address] | | | [place] [address] | + + + | Home Phone | | + + + | Preferred Language | Unknown | + + + | Marital Status | Single | + + + | Hoahaoism Affiliation | None | + + + [...] Providers + +------+ + | Care Lead Network Engineer Name | Role | Phone [...] has advance directives. For more information, please contact:[id number] [place] [address]
[~2017-08-12 16:00] MED LIST changes: +BUPROPION XL300 MG PO; +COUMADIN5 MG PO; +HYDROXYZINE PAM25 MG PO; +LORAZEPAM1 MG PO
[2017-08-15] MEDS ORDERED: COUMADIN5 MG PO (12:07)
[2017-08-16] MEDS ORDERED: ONDANSETRON ODT4 MG SL (22:24)
[2017-08-16] MEDS ORDERED: EMVERM100 MG PO (22:24)
[2017-09-01] MEDS ORDERED: COUMADIN5 MG PO (15:14)
== END 2017-08-15 13:22 | disposition home or self-care (01) | DRG 193 ==
LOC: MS 16:00
PROVIDERS: ADMIT Internal Medicine
DX: J10.08 Influenza due to other identified influenza virus with other specified pneumonia (principal); J96.21 Acute and chronic respiratory failure with hypoxia; J96.22 Acute and chronic respiratory failure with hypercapnia; Z68.45 Body mass index [BMI] 70 or greater, adult; J15.9 Unspecified bacterial pneumonia; G25.81 Restless legs syndrome; I48.2 Chronic atrial fibrillation; G47.33 Obstructive sleep apnea (adult) (pediatric); E11.9 Type 2 diabetes mellitus without complications; E03.9 Hypothyroidism, unspecified; E78.5 Hyperlipidemia, unspecified; F32.9 Major depressive disorder, single episode, unspecified; F41.9 Anxiety disorder, unspecified; K21.9 Gastro-esophageal reflux disease without esophagitis; E66.01 Morbid (severe) obesity due to excess calories; Z66 Do not resuscitate; J45.40 Moderate persistent asthma, uncomplicated; Z79.84 Long term (current) use of oral hypoglycemic drugs; Z79.01 Long term (current) use of anticoagulants; Z88.0 Allergy status to penicillin
CPT/HCPCS: 36415; 85610; 94640; 94761; 94762; 97110; 97162; 97165

== ENCOUNTER → 2017-08-16 | Emergency (ER) | payer OTHER ==
[~2017-08-16] VITALS: Ht 160 cm; Wt 193.0 kg
[~2017-08-16] MED LIST changes: +EMVERM100 MG PO; +KEFLEX500 MG PO; +ONDANSETRON ODT4 MG SL; +POTASSIUM CHLO10 MEQ PO
--- OUTSIDE RECORDS SUMMARY | 2017-08-16 20:59 | XMS | Encounter Summary ---
Demographics + + + | Address | [address] | | | [place] [address] | + + + | Home Phone | | + + + | Preferred Language | Unknown | + + + | Marital Status | Single | + + + | Hindu Affiliation | NON | + + + | Race | White | + + + | Ethnic Group | Not or | + + + Author + + + | Author | [facility] | + + + | Organization | [facility] | + + + | Address | Unknown | + + + | Phone | Unavailable | + + + Support + + +---------+ + | Name | Relationship | Address | Phone | + + +---------+ + | Jordan Aguirre | ECON | Unknown | Unavailable | + + +---------+ + Care Team Providers + +------+ + | Care Video News Editor Name | Role | Phone | + +------+ + | Bassam Ross DO | PCP | | + +------+ + Reason for Referral Consultation (Routine) + +--------+ + + + + | Status | Reason | Specialty | Diagnoses / | Referred By | Referred To | | | | | Procedures | Contact | Contact | + +--------+ + + + + | Authorized | | Non [facility] | Diagnoses | [facility], | Non-[facility] | | | | Department | S/P | Hansa Hawkins, | Epic Dept | | | | | laparoscopic | [facility] [address] | | | | | | sleeve | [address] | | | | | | gastrectomy | [place], | | | | | | [place] | [place] | | | | | | deficiency | [phone] | | | | | | Procedures | Phone: | | | | | | CONSULT TO | [phone] | | | | | | NON - [facility] | Fax: | | | | | | PROVIDER | [phone] | | + +--------+ + + + + Encounter Details +--------+ + + + + | Date | Type | Department | Care Team | Description | +--------+ + + + + | 06/25/ | MyChart | Digestive [facility] | Hansa Hawkins, | RE:Follow-up | | 2018 | Encounter | Center at [facility] | [facility] [address] | | | | | [facility] [address] | [place], [place] | | | | | mil Mailcode: [facility] | [id number] | | | | | [place] [facility] | [phone] | | | | | and [facility], [facility] | | | | | | [place], [place] | | | | | | [address] | | | | | | [phone] | | | +--------+ + + + + Social History + + + +--------+ + | Tobacco Use | Types | Packs/Day | Years | Date | | | | | Used | | + + + +--------+ + | Former Smoker | Cigarettes | 0.25 | 16 | Quit: 01/03/1999 | + + + +--------+ + + +---+---+---+ | Smokeless Tobacco: | | | | | Never Used | | | | + +---+---+---+ + + | Comments: quit 12 years ago | + + + + +---------+ + | Alcohol Use | Drinks/We | oz/Week | Comments | | | ek | | | + + +---------+ + | Yes | | | social drinks (2-3 times per year) | + + +---------+ + + + + | Sex Assigned at | Date Recorded | | | | + + + | Not on file | | + + + as of this encounter Plan of Treatment +--------+---------+ + + + | Date | Type | Specialty | Care Team | Description | +--------+---------+ + + + | 01/08/ | Office | Cardiology | Juan Antonio Mclaughlin, | | | 2018 | Visit | | [address] | | | | | | [address] | | | | | | [place], [place] | | | | | | [address] | | | | | | [phone] | | | | | | | | +--------+---------+ + + + as of this encounter Visit Diagnoses + + | Diagnosis | + + | S/P laparoscopic sleeve gastrectomy - Primary | + + | Iron deficiency | + + | Other disorders of iron metabolism | + +"
--- OUTSIDE RECORDS SUMMARY | 2017-08-16 20:59 | XMS | Encounter Summary ---
Demographics + + + | Address | [address] | | | [place] [address] | + + + | Home Phone | | + + + | Preferred Language | Unknown | + + + | Marital Status | Single | + + + | Episcopal Affiliation | NON | + + + | Race | White | + + + | Ethnic Group | Not or | + + + Author + + + | Author | [facility] | + + + | Organization | [facility] | + + + | Address | Unknown | + + + | Phone | Unavailable | + + + Support + + +---------+ + | Name | Relationship | Address | Phone | + + +---------+ + | Jordan Aguirre | ECON | Unknown | Unavailable | + + +---------+ + Care Team Providers + +------+ + | Care Chop Saw Operator Name | Role | Phone | + [...] + +--------+ + + + + | New Request | | Cardiology | Diagnoses | Shruthi, | Lissette, | | | | | Essential | Hansa Hawkins, | MD Juan Antonio | | | | | hypertension | AGACNP [address] | [address] | | | | | , benign | [address] | [place] | | | | | Sleep apnea, | [place], | [place], | | | | | unspecified | [place] | [place] | | | | | type | [phone] | [address] | | | | | Gastroesopha | Phone: | Phone: | | | | | geal reflux | [phone] | [phone] | | | | | disease, | Fax: | Fax: | | | | | esophagitis | [phone] | [phone] | | | | | presence not | | | | | | | specified | | | | | | | Vitamin D | | | | | | | deficiency | | | | | | | disease S/P | | | | | | | | | | | | | | laparoscopic | | | | | | | sleeve | | | | | | | gastrectomy | | | | | | | Vitamin B | | | | | | | 12 | | | | | | | deficiency | | | | | | | Hx of | | | | | | | laparoscopic | | | | | | | gastric | | | | | | | banding | | | | | | | Morbid | | | | | | | obesity with | | | | | | | BMI of | | | | | | | 60.0-69.9, | | | | | | | adult (HCC) | | | | | | | Diabetes | | | | | | | mellitus | | | | | | | type 2, | | | | | | | diet-control | | | | | | | led (HCC) | | | | | | | Pt is a | | | | | | | bariatric | | | | | | | patient who | | | | | | | has had 3 | | | | | | | lap bands | | | | | | | and one | | | | | | | sleeve | | | | | | | gastrectomy | | | | | | | and still | | | | | | | has had | | | | | | | weight | | | | | | | regain. She | | | | | | | is not a | | | | | | | surgical | | | | | | | candidate | | | | | | | and needs | | | | | | | medical | | | | | | | management | | | | | | | for weight | | | | | | | loss. | | | | | | | Procedures | | | | | | | CONSULT TO | | | | | | | ENDOCRINOLOG | | | | | | | Y | | | + +--------+ + + + + Consultation (Routine) + +--------+ + + + + | Status | Reason | Specialty | Diagnoses / | Referred By | Referred To | | | | | Procedures | Contact | Contact | + +--------+ + + + + | Canceled | | Endocrinology | Diagnoses | Welshans, | End General | | | | , Diabetes & | Essential | Hansa W, | [address] | | | | Metabolism | hypertension | AGACNP [address] | [address] | | | | | , benign | [address] | [address] | | | | | Sleep apnea, | [place], | Physicians | | | | | unspecified | [place] | Pavilion | | | | | type | [phone] | Physicians | | | | | Gastroesopha | Phone: | Pavilion | | | | | geal reflux | [phone] | [place], [place] | | | | | disease, | Fax: | [phone] | | | | | esophagitis | [phone] | Phone: | | | | | presence not | | [phone] | | | | | specified | | Fax: | | | | | Vitamin D | | [phone] | | | | | deficiency | | | | | | | disease S/P | | | | | | | | | | | | | | laparoscopic | | | | | | | sleeve | | | | | | | gastrectomy | | | | | | | Vitamin B | | | | | | | 12 | | | | | | | deficiency | | | | | | | Hx of | | | | | | | laparoscopic | | | | | | | gastric | | | | | | | banding | | | | | | | Morbid | | | | | | | obesity with | | | | | | | BMI of | | | | | | | 60.0-69.9, | | | | | | | adult (HCC) | | | | | | | Diabetes | | | | | | | mellitus | | | | | | | type 2, | | | | | | | diet-control | | | | | | | led (HCC) | | | | | | | Procedures | | | | | | | CONSULT TO | | | | | | | ENDOCRINOLOG | | | | | | | Y | | | + +--------+ + + + + Reason for Visit + + + | Reason | Comments | + + + | Follow-up visit | | + + + Office Visit - E/M Services (Routine) + +--------+ + + + + | Status | Reason | Specialty | Diagnoses / | Referred By | Referred To | | | | | Procedures | Contact | Contact | + +--------+ + + + + | Authorized | | Surgery | | Non-[facility] | Bar | | | | | | Epic Dept | Bariatric | | | | | | | Surg Chh | | | | | | | [address] | | | | | | [address] | | | | | | | Mailcode: | | | | | | | [address] | | | | | | | for Health | | | | | | | and Healing, | | | | | | | 6th floor | | | | | | | [place], [place] | | | | | | | [address] | | | | | | | Phone: | | | | | | | [phone] | | | | | | | Fax: | | | | | | | [phone] | + +--------+ + + + + Encounter Details +--------+---------+ + + + | Date | Type | Department | Care Team | Description | +--------+---------+ + + + | 06/16/ | Office | Digestive Health | Hansa Hawkins, | S/P laparoscopic | | 2018 | Visit | Center at [facility] 6th | AGACNP [address] | sleeve gastrectomy | | | | Floor [address] | [address] [place], [place] | (Primary Dx); | | | | Ave Mailcode: CH4S | [phone] | Essential | | | | [facility] | | hypertension, | | | | and Healing, 6th | | benign; Sleep apnea, | | | | floor [place], [place] | | unspecified type; | | | | [address] | | Gastroesophageal | | | | | | reflux disease, | | | | | | esophagitis presence | | | | | | not specified; | | | | | | Vitamin D deficiency | | | | | | disease; Vitamin B | | | | | | 12 deficiency; | | | | | | Physical | | | | | | deconditioning; Hx | | | | | | of laparoscopic | | | | | | gastric banding; | | | | | | Morbid obesity with | | | | | | BMI of 60.0-69.9, | | | | | | adult ([facility]); | | | | | | Diabetes mellitus | | | | | | type 2, | | | | | | diet-controlled | | | | | | ([facility]) | +--------+---------+ + + + Social History + + [...] + + + as of this encounter Last Filed Vital Signs + + + + | Vital Sign | Reading | Time Taken | + + + + | Blood Pressure | 124/84 | 06/16/2017 3:22 PM PST | + + + + | Pulse | 84 | 06/16/2017 3:22 PM PST | + + + + | Temperature | 36.9 C (98.5 F) | 06/16/2017 3:22 PM PST | + + + + | Respiratory Rate | - | - | + + + + | Oxygen Saturation | - | - | + + + + | Inhaled Oxygen | - | - | | Concentration | | | + + + + | Weight | 184.5 kg (406 lb | 06/16/2017 3:22 PM PST | | | 12.8 oz) | | + + + + | Height | 160 cm (5' 3") | 06/16/2017 3:22 PM PST | + + + + | Body Mass Index | 72.06 | 06/16/2017 3:22 PM PST | + + + + in this encounter Instructions Patient Instructions - Hansa Hawkins AGACNP - 06/16/2017 3:05 PM PST-start journaling food intake again, download [employer] samuel. -make appt with Mihaela for nutritional support -make appt with Dr. Mclaughlin's office for medical management of weight loss. -I will send you a mychart in the next week, if you dont hear from me please send me a mess age. -return to clinic next month to meet with alysa Chairez.in this encounter Progress Notes Hansa Hawkins AGACNP - 06/16/2017 3:05 PM PSTFormatting of this note may be different from the original. BARIATRIC SURGERY FOLLOW-UP ID: Aspen Darden is a 46 y.o. patient who underwent a sleeve gastrectomy on 02/07/2015 with . The patient is now 2 years post operative. Subjective: Feels she has never felt restriction after surgery. She feels she can eat anyth ing with out restriction. She is curious is she can get a revisional surgery as she feels sh e only had a "partial sleeve". Activity: Walking daily, with adventism friends. Fluids: getting 64 oz fluid daily. Avoiding soda, drinking ice tea, water. Protein: getting adequate protein lean meats, cheese sticks, cottage cheese. tries avoids c arbohydrates. No recent episodes of GERD, controlled with PPI. She has become fully diabetic. On Metformin BID for past year. Recently diagnosed with A-fib. On coumadin and diltiazem Weight at time of surgery : 403--> 358--> 406 (Has regained all pre surgery weight) BP 124/84 | Pulse 84 | Temp 36.9 C (98.5 F) | Ht 1.6 m (5' 3") | Wt 184.5 kg (406 lb 12 .8 oz) | BMI 72.06 kg/(m^2) History: Past Medical History: Diagnosis Date Abnormal ThinPrep Pap test of vagina Anxiety Asthma Bipolar disorder (HCC) Cough CPAP/BiPAP dependence Depression Essential hypertension, benign Hx of laparoscopic gastric banding 09/22/2013 Leaking of urine Liver enlargement 01/2015 intraop Morbid obesity with BMI of 70 and over, adult (HCC) 09/22/2013 Murmur OCD (obsessive compulsive disorder) ANNABEL (obstructive sleep apnea) Poor intravenous access Pulmonary hypertension Mild. By echo and chest xray findings. Followed by department chairperson in [place]. Shortness of breath Thyroid disease Past Surgical History Procedure Laterality Date C section 1998 Tonsillectomy 1996 Knee surgery 1996 Gastric banding 2004, 2007, 2011 Skin and subcutaneous tissue surgery 2006 Foot surgery 2009 - 2010 3x Hysterectomies, vaginal 2009 Appendectomy for ruptured appendix with abscess 2012 Gallbladder surgery 2008 Laparotomy 07/2014 Laparoscopic sleeve gastrectomy 02/07/2015 [facility] Brianna Social History Social History Marital status: Single Spouse name: N/A Number of children: N/A Years of education: N/A Occupational History Not on file. Social History Main Topics Smoking status: Former Smoker Packs/day: 0.25 Years: 16.00 Types: Cigarettes Quit date: 01/03/1999 Smokeless tobacco: Never Used Comment: quit 12 years ago Alcohol use Yes Comment: social drinks (2-3 times per year) Drug use: No Sexual activity: Not on file Other Topics Concern Not on file Social History Narrative ECG 11/18/2013 - Sinus bradycardia, VR 59 bpm. Otherwise normal ECG Chest xray 2 view 01/03/2014 - IMPRESSION: Findings characteristic for pulmonary hypertensio n. Lungs are clear. Dobutamine Echocardiogram 08/07/2014 - Final Impressions: 1. At rest there is normal left ventricular systolic function. 2. EKG negative for ischemia. 3. Echo negative for ischemia. Low risk stress echo in a patient who achieved >85% MAPHR and no inducible ischemia ECG ([facility]) 01/12/2012 - Normal sinus rhythm. Normal ECG Records reviewed from [facility] (see media tab): Echocardiogram 11/18/2013: 1. Sinus rhythm.2. A 2-dimensional transthoracic echocardiogram with m-mode, spectral and color flow Doppler was perfomed.3. This was a technically difficult study with suboptimal vi ews.4. Overall left ventricular systolic function is normal with, an EF between 60 - 65 %.5. Left Ventricle ejection fraction by m-mode measures.6. No regional wall motion abnormalitie s.7. The diastolic filling pattern is normal for the age of the patient.8. The RV was not we ll visualized.9. The left atrial size is normal.10. , and the LA measures 3.9cm.11. The righ t atrium was not well visualized.12. The aortic valve is trileaflet and appears structurally normal.13. There is no evidence of aortic regurgitation.14. The mitral valve is normal.15. The tricuspid valve appears structurally normal.16. Mild tricuspid regurgitation present.17. There is mild pulmonary hypertension.18. The right ventricular systolic pressure (pulmonary artery systolic pressure), as measured by Doppler, is 37 + 10 = 47mmHg.19. The pulmonic kyrie ve was not well visualized.20. There is no pericardial effusion.21. No mass [id number]. Po or visualization. Definity was used to opacify the left ventricular chamber and improve deli neation of the endocardial border. Family History Problem Relation Diabetes Father Hypertension Mother Obesity Mother Hypertension Father Heart Disease Father SC 78 Allergies Allergies Allergen Reactions Advair Diskus [Fluticasone-Salmeterol] Airway Constriction Amoxicillin Hives Clarithromycin Gabapentin Unknown Hydrocodone-Acetaminophen Oxycodone Terephthalate Hives Sulfa (Sulfonamide Antibiotics) Rash Medications Current Outpatient Prescriptions: acetaminophen 325 mg oral tablet, Take 2 tablets by mouth every six hours as needed for pain. Cut tablet into small pieces. Do not crush., Disp: 100 tablet, Rfl: 0 albuterol 90 mcg/actuation inhalation HFA aerosol inhaler, Inhale every four hours as neede d., Disp: , Rfl: ALPRAZolam 0.5 mg oral tablet, Take by mouth., Disp: , Rfl: calcium citrate 200 mg elemental (950 mg total salt) oral tablet, Take 2 tablets by mouth t hree times daily., Disp: 180 tablet, Rfl: 11 CARVEDILOL ORAL, Take 50 mg by mouth two times daily., Disp: , Rfl: cloNIDine (CATAPRES) 0.1 mg oral tablet, Take 0.3 mg by mouth two times daily., Disp: , Rfl : cyanocobalamin, vitamin B-12, 500 mcg sublingual tablet, sublingual, Place 500 mcg under to ngue once daily. Indications: Prevention of Vitamin B12 Deficiency, Disp: 30 tablet, Rfl: 11 cyclobenzaprine 10 mg oral tablet, Take 10 mg by mouth three times daily as needed. Do not use longer than 2-3 weeks., Disp: , Rfl: ergocalciferol 50,000 unit oral capsule, Take 1 capsule by mouth every seven days., Disp: 1 2 capsule, Rfl: 0 ergocalciferol 50,000 unit oral capsule, Take 1 capsule by mouth every seven days. Indicati ons: VITAMIN D DEFICIENCY (HIGH DOSE THERAPY), Disp: 52 capsule, Rfl: 0 fluconazole (DIFLUCAN) 200 mg oral tablet, Take 1 tablet by mouth once daily., Disp: 1 tabl et, Rfl: 0 HYDROmorphone (DILAUDID) 4 mg oral tablet, Take 1 tablet by mouth every four hours as neede d for severe pain. (Patient not taking: Reported on 02/25/2016), Disp: 50 tablet, Rfl: 0 HYDROmorphone 4 mg oral tablet, Take 0.5-1 tablets by mouth every four hours as needed for severe pain. (Patient not taking: Reported on 02/25/2016), Disp: 75 tablet, Rfl: 0 omeprazole 20 mg oral tablet,delayed release (DR/EC), Take 1 tablet by mouth once daily. In dications: HEARTBURN, Disp: 30 tablet, Rfl: 11 ped multivit #43-iron fumarate (FLINTSTONES COMPLETE, IRON,) 18 mg iron oral tablet,chewabl e, Chew and swallow 2 tablets once daily., Disp: 60 tablet, Rfl: 11 Pramipexole (MIRAPEX) 0.75 mg oral tablet, Take 0.75 mg by mouth two times daily., Disp: , Rfl: thyroid (ARMOUR THYROID) 60 mg oral tablet tablet, Take 60 mg by mouth once daily., Disp: , Rfl: Bariatric Medications: MVI with iron twice daily: yes Calcium citrate 1500mg daily: yes Vitamin D 1000 mg daily : yes B12 500mcg SL daily or monthly shot: yes H2RB/PPI daily: yes Actigall/ ursodiol 300 BID: no Narcotics: no Symptoms: Nausea: None Dysphagia: None Vomiting: None Heartburn: None Abd Pain: None Constipation: None Diarrhea: None Physical Exam General- Alert and oriented x4, No acute distress, well appearing Well hydrated: moist mucous membranes Abd - Soft, non-tender, non-distended, incisions scars noted. Assessment/Plan: Aspen Darden is a 46 y.o. female who is 2 years S/P sleeve gastrectomy. 1. S/p sleeve gastrectomy recovering well. -Denies nausea, vomiting, diarrhea or constipation -continue with protein goal of 60-80g/day -continue with fluid intake goal of at least 64oz/day -Discussed diet choices, healthy foods, ways to increase protein and iron -Discussed daily exercise and types of exercises -the pt expressed frustration today that she has never felt restriction after surgery. She is curious if she can have a revision to bypass. We talked at length about the risks of timoteo tional surgery. The patient has had 3 lap bands, 1 sleeve, and a cholecysectomy. According t o op notes, she had a great level of adhesions that made surgery difficult. -I will speak to Dr. Venegas about this case but I wanted to give the patient realistic expe ctations about surgery and if she would be a candidate for this. -In the meantime, I recommended the patient start journaling her food intake, it seems she is not keeping track of how much intake she is having daily. -I suggested making another refrigerator repair technician appt for next month to discuss possible ways of impro vement. -I also suggested an appt with Dr. Bowers to revisit some problems with over eating. She decl ined. -Pt newly on diltiazem and coumadin for recent Atrial fibrillation diagnosis. We discussed weight loss medications, but Phentermine is contraindicated for pts with A-fib. -I also put in a consult to see Dr. Juan Antonio Mclaughlin to help with medical weight loss manag ement if there are no surgical options available for Mrs. Darden. 2. Intertriginous candidiasis -use corn starch to help reduce moisture -place a towel between skin folds to reduce friction and promote drying -contact us if you have further problems 3. Risk for B12 deficiency, calcium malabsorption, protein malabsorption, vitamin d deficie ncy and iron deficiencies -Labs today: CBC, CMP, B12, PTH, vit D, ferritin will notify of results and replace as nee ded -continue with vitamin supplements as directed 4.Gastric Ulcer Prevention -controls GERD symptoms. Continue taking 5. Progress of Chronic Medical Conditions -ANNABEL: on CPAP -GERD: on PPI -Hyperlipidemia: ongoing -HTN: improved -Diabetes: worsened with weight gain, on metformin. Return to bariatric clinic in 1 year or sooner if needed for continued follow up See your primary care provider for adjusting any other medications. Call if any abdominal pain, n/v/d or other issues. Pt agrees to plan and will call and/or send [employer] message if any issues. Start time 314, end time 349. I spent a total of 35 minutes face to face with this patie nt. Over 50% of visit was in counseling. MILAD Rodriguez-RENETTA Bariatric Surgery Nurse Practitioner [facility] | [id number] | [place], [place] | [address] | in this encounter Plan of Treatment +--------+---------+ + + + | Date | Type | Specialty | Care Team | Description | +--------+---------+ + + + | 01/08/ | Office | Cardiology | Juan Antonio Mclaughlin, | | | 2017 | Visit | | MD Elvin Dee | | | | | | [address] | | | | | | [place], [place] | | | | | | [address] | | | | | | [phone] | | | | | | | | +--------+---------+ + + + as of this encounter Results HEMOGLOBIN A1C, BLOOD (06/16/2017 4:22 PM) + + + + | Component | Value | Ref Range | + + + + | HEMOGLOBIN A1C | 6.6 (H)Comment: Hgb A1C Interpretive | <5.7 % | | | Information: <5.7% - Normal | | | | 5.7-6.4% - Consistent with | | | | pre-diabetes >6.4% - Consistent | | | | with diabetes | | | | 5.7-6.4% - Consistent with pre-diabetes | | | | >6.4% - Consistent with diabetes | | | | | | | | | | + + + + + + + | Specimen | Performing Laboratory | + + + | Blood | [facility], SPECIAL IMM + [address] [facility] [facility] | | | [place] [address] | + + + + + | Narrative | + + | Alternate forms of testing such as fructosamine should be considered for | | monitoring 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 | | | + + TSH (06/16/2017 4:22 PM) + +-------+ + | Component | Value | Ref Range | + +-------+ + | TSH | 3.04 | 0.44 - 4.75 mIU/L | + +-------+ + + + + | Specimen | Performing Laboratory | + + + | Blood | [facility], CORE [address] | | | [place] [address] | + + + + + | Narrative | + + | TSH reference ranges are influenced by a variety of environmental influences, age, | | gender and ethnicity. The supplied reference limits are based on published values | | utilizing a similar TSH assay, and should be interpreted with caution. | + + FERRITIN (06/16/2017 4:22 PM) + + + + | Component | Value | Ref Range | + + + + | FERRITIN | 18 (L)Comment: Male and Female >18 years: | 50 - 200 ng/mL | | | <20 ng/mL: Consistant with | | | | iron deficiency 21-50 ng/mL: | | | | Possible iron deficiency 51-99 | | | | ng/mL: Iron deficiency unlikely | | | | unless inflammation present | | | | or p | | | | atient >65 years of age 100-200 | | | | ng/mL: Normal, not consistent with | | | | iron deficiency >200 ng/mL: | | | | If transferrin saturation >45%, consider | | | | hemochromatosis | | + + + + + + + | Specimen | Performing Laboratory | + + + | Blood | [facility], CORE [address] [place] [address] | | | [place] [address] | + + + BASIC METABOLIC SET (NA, K, CL, TCO2, BUN, CR, GLU, CA) (06/16/2017 4:22 PM) + + + + | Component | Value | Ref Range | + + + + | GLUCOSE, PLASMA | 112 (H) | 70 - 99 mg/dL | | (LAB) | | | + + + + | BUN, PLASMA (LAB) | 12 | 6 - 20 mg/dL | + + + + | CREATININE PLASMA | 0.56 (L) | 0.60 - 1.10 mg/dL | | (LAB) | | | + + + + | EGFR - | >60 | >60 mL/min | | KITTITIAN | | | + + + + | EGFR NON | >60 | >60 mL/min | | -KITTITIAN | | | + + + + | SODIUM, PLASMA (LAB) | 135 (L) | 136 - 145 mmol/L | + + + + | POTASSIUM, PLASMA | 4.6 | 3.4 - 5.0 mmol/L | | (LAB) | | | + + + + | CHLORIDE, PLASMA | 99 | 97 - 108 mmol/L | | (LAB) | | | + + + + | TOTAL CO2, PLASMA | 30 | 21 - 32 mmol/L | | (LAB) | | | + + + + | CALCIUM, PLASMA | 10.1 | 8.6 - 10.2 mg/dL | | (LAB) | | | + + + + | ANION GAP | 6 | mmol/L | + + + + | POTASSIUM CMNT | No Hemo | | + + + + + + + | Specimen | Performing Laboratory | + + + | Blood | [facility], CORE [address] | | | [place] [address] | + + + + + | Narrative | + + | Adult glucose reference range change effective 7-12-17. GFR is estimated using the | | MDRD equation recommended by the National Kidney Disease Education Program. | | Estimated GFR Interpretive Information: <60 mL/min/1.73 sq | | m Chronic Kidney Disease <15 mL/min/1.73 sq | | m Kidney Failure Estimated GFR greater that 60 mL/min/1.73 | | sq m is of limited clinical value. The MDRD equation is not valid in the following | | situations: - Patients under 18 years of age - Severe malnutrition or obesity - | | Vegetarian diet - Rapidly changing kidney function | + + CBC ONLY (06/16/2017 4:22 PM) + + + | Specimen | Performing Laboratory | + + + | Blood | | + + + + + | Narrative | + + | The following orders were created for panel order CBC ONLY. | | Procedure | | Abnormality Status | | --------- | | ------ CBC (HEMOGRAM) | | ONLY[[id number]] Abnormal Final | | result Please view results for these tests on the | | individual orders. | + + VITAMIN B1, WHOLE BLOOD (06/16/2017 4:22 PM) + + + + | Component | Value | Ref Range | + + + + | VITAMIN B1, WHOLE | 134Comment: INTERPRETIVE INFORMATION: | 70 - 180 nmol/L | | BLOOD | Vitamin B1, Whole Blood This assay measures | | | | the concentration of thiamine diphosphate | | | | (TDP), the primary active form of vitamin | | | | B1. Approximately 90 percent of vitamin B1 | | | | present in whole blood is TDP. Thiamine and | | | | thiamine monophosphate, which comprise the | | | | remaining 10 percent, are not measured. | | | | Test developed and characteristics | | | | determined by [employer]. See | | | | Compliance Statement B: | | | | [employer] by [facility] | | | | [address] [address] | | | | [phone][employer], Iker Angelo, | | | | Katherin BECKHAM. Director | | + + + + + + + | Specimen | Performing Laboratory | + + + | Blood | [facility] [address] [facility] | | | [place] [address] | + + + VITAMIN D, 25-HYDROXY, SERUM (06/16/2017 4:22 PM) + +-------+ + | Component | Value | Ref Range | + +-------+ + | VITAMIN D 25 HYDROXY | 44.8 | 30 - 80 ng/mL | + +-------+ + + + + | Specimen | Performing Laboratory | + + + | Blood | [facility], CORE [address] [facility] [facility] [facility] | | | [place] [address] | + + + + + | Narrative | + + | Reference Interval: 0-18years: Deficiency: <20 ng/mL | | Optimum level: >or=20 | | ng/mL >18years: | | Deficiency: <20 ng/mL | | Insufficiency: 20-29 ng/mL Optimum Level: 30-80 ng/mL | | High: 81-150 ng/ml | | Toxic: >150 ng/mL | + + VITAMIN B-12 (06/16/2017 4:22 PM) + +-------+ + | Component | Value | Ref Range | + +-------+ + | VITAMIN B12 | 602 | 193 - 986 pg/mL | + +-------+ + | COMMENT (HEMO) | 1 | | + +-------+ + | COMMENT (ICTERUS) | 1 | | + +-------+ + | COMMENT (LIPEMIA) | 1 | | + +-------+ + + + + | Specimen | Performing Laboratory | + + + | Blood | [facility], CORE [address] | | | [place] [address] | + + + PTH, SERUM (06/16/2017 4:22 PM) + +-------+ + | Component | Value | Ref Range | + +-------+ + | PTH, SERUM | 52 | 18 - 88 pg/mL | + +-------+ + + + + | Specimen | Performing Laboratory | + + + | Blood | [facility], CORE [address] | | | [place] [address] | + + + + + | Narrative | + + | New Reference Range effective 12--17. | + + in this encounter Visit Diagnoses + + | Diagnosis | + + | S/P laparoscopic sleeve gastrectomy - Primary | + + | Essential hypertension, benign | + + | Sleep apnea, unspecified type | + + | Gastroesophageal reflux disease, esophagitis presence not specified | + + | Vitamin D deficiency disease | + + | Unspecified vitamin D deficiency | + + | Vitamin B 12 deficiency | + + | Other B-complex deficiencies | + + | Physical deconditioning | + + | Debility, unspecified | + + | Hx of laparoscopic gastric banding | + + | Bariatric surgery status | + + | Morbid obesity with BMI of 60.0-69.9, adult (HCC) | + + | Diabetes mellitus type 2, diet-controlled (HCC) | + + | Type II or unspecified type diabetes mellitus without mention of complication, not | | stated as uncontrolled | + +
--- OUTSIDE RECORDS SUMMARY | 2017-08-16 20:59 | XMS | Encounter Summary ---
Demographics + + + | Address | [address] | | | [place] [address] | + + + | Home Phone | | + + + | Preferred Language | Unknown | + + + | Marital Status | Single | + + + | Confucianism Affiliation | NON | + + + | Race | White | + + + | Ethnic Group | Not or | + + + Author + + + | Author | [facility] | + + + | Organization | [facility] | + + + | Address | Unknown | + + + | Phone | Unavailable | + + + Support + + +---------+ + | Name | Relationship | Address | Phone | + + +---------+ + | Jordan Aguirre | ECON | Unknown | Unavailable | + + +---------+ + Care Team Providers + +------+ + | Care Programming Specialist Name | Role | Phone | + +------+ + | Bassam Ross DO | PCP | | + +------+ + Reason for Visit + + + | Reason | Comments | + + + | Bariatric Nutrition | | + + + Office Visit - E/M Services (Routine) + +--------+ + + + + | Status | Reason | Specialty | Diagnoses / | Referred By | Referred To | | | | | Procedures | Contact | Contact | + +--------+ + + + + | Authorized | | Nutrition | | Non[facility] | Fn | | | | | | Epic Dept | [facility] | | | | | | | [facility] [address] | | | | | | [address] | | | | | | | Mailcode: | | | | | | | [facility] | | | | | | | for Health | | | | | | | and Healing | | | | | | | [place], [place] | | | | | | | [address] | | | | | | | Phone: | | | | | | | [phone] | | | | | | | Fax: | | | | | | | [phone] | + +--------+ + + + + Encounter Details +--------+---------+ + + + | Date | Type | Department | Care Team | Description | +--------+---------+ + + + | 06/16/ | Office | Digestive Health | Mihaela Villa, | S/P laparoscopic | | 2018 | Visit | Center at [facility] [address] | [address] | sleeve gastrectomy | | | | Floor [address] | [address] | (Primary Dx) | | | | Ave Mailcode: | [place], [place] | | | | | [facility] Center for | [address] | | | | | Health and Healing | | | | | | [place], [place] | | | | | | [address] | | | | | | [phone] | | | +--------+---------+ + + + Social History [...] + + + | Blood Pressure | - | - | + + + + | Pulse | - | - | + + + + | Temperature | - | - | + + + + | Respiratory Rate | - | - | + + + + | Oxygen Saturation | - | - | + + + + | Inhaled Oxygen | - | - | | Concentration | | | + + + + | Weight | 184.6 kg (406 lb | 06/16/2017 2:35 PM PST | | | 14.4 oz) | | + + + + | Height | - | - | + + + + | Body Mass Index | 72.08 | 06/16/2017 2:35 PM PST | + + + + in this encounter Progress Notes Mihaela Villa, RD - 06/16/2017 2:30 PM PSTFormatting of this note may be different from the original. Nutrition Counseling: Post-op Bariatric Surgery Follow-Up Patient referred by: Bassam Ross DO [address] [place] [address] Documented time of visit: 2:33 to 3:03 (30 minutes [id number] with patient) Surgery: Sleeve Gastrectomy Date of Surgery: 02/07/15 Subjective: Continues to have an infection in leg. Lost her dad last ANTONIO. Went to the [employer] loss conference in [place] last year. Wanting some options in regards to weight regai n. She is confused about the "partial sleeve" that she has been told she received. Doesn't f eel like she has ever had any restrictions. Diagnosed with diabetes in October. Has been using a walker lately (had some new meds added and changes and has been dizzy). No longer lives w ith her daughter since August so not a lot of junk food in the house. Feels like she is retai radha fluids, was started on diltiazem 2 weeks ago. Any reported changes: None Tolerating Bariatric Diet: Yes Current Physical Activity: walking at the gym at [employer] with some friends 2x/wk 60 Changes in Diabetes Medications since surgery: metformin added in October, 1,000 mg BID Testing blood glucose: FBG ~120-150 Objective: Ht Readings from Last 1 Encounters: 02/25/16 1.6 m (5' 3") Wt Readings from Last 2 Encounters: 06/16/17 184.6 kg (406 lb 14.4 oz) 02/25/16 174.4 kg (384 lb 6.4 oz) 11/14/15 166.289 kg (366 lb 9.6 oz) 08/08/15 162.433 kg (358 lb 1.6 oz) 06/26/15 163.885 kg (361 lb 4.8 oz) 03/08/15 174.091 kg (383 lb 12.8 oz) 01/22/15 188.696 kg (416 lb) Day of surgery ~414# Body mass index is 72.08 kg/m. Weight change since surgery: regained all of there weight lost. PMHx: Past Medical History: Diagnosis Date Abnormal ThinPrep Pap test of vagina Anxiety Asthma Bipolar disorder (HCC) Cough CPAP/BiPAP dependence Depression Essential hypertension, benign Hx of laparoscopic gastric banding 09/22/2013 Leaking of urine Liver enlargement 01/2015 intraop Morbid obesity with BMI of 70 and over, adult (HCC) 09/22/2013 Murmur OCD (obsessive compulsive disorder) ANNABEL (obstructive sleep apnea) Poor intravenous access Pulmonary hypertension (HCC) Mild. By echo and chest xray findings. Followed by [facility] in [place]. Shortness of breath Thyroid disease Food logs: No Food choices: x 3-4 month as below B: egg + string cheese + banana + decaf coffee L: 1 can soup (chicken noodle or potato or minestrone) D: hamburger mely + cauliflower + salad + pears + hot tea Denies intake of sweets (only seldomly). No diet or regular soda x 2 months. Fluid choices: water-32 ounces, decaf coffee + splenda Supplementation: Citracal Petites x 2 per day, B12 Assessment: Following Bariatric Diet Protocol: Yes Meeting protein goals: Yes Meeting fluid goals: Yes Fluids from meals: Yes Plan: Increase exercise Reviewed nutrition goals after bariatric surgery. Aim for 64 ounces of fluid and 60-80 grams of protein per day. Continue to follow post-surgery bariatric diet progression: Continue stage 4 according to b ariatric diet guidelines -Provided written & verbal education/review of stage 4 guidelines -Continue to eat protein foods first; stop eating as soon as you begin to feel full -Choose foods with < 14 g sugar & < 5 g fat per serving -Continue fluids from meals by 30 minutes before & after Continue vitamin & mineral supplementation per post-bariatric surgery guidelines -complete multivitamin & mineral (with iron) supplement, 2/day -8267-5330 mg calcium citrate with vitamin D/day (take in divided doses, not within 2 hour s of multivitamin or iron supplement) -500 mcg/day sublingual B12 supplement (or monthly injections) Continued to reinforce importance of mindful eating. Continue to increase physical activity. Follow up Mihaela cooper RD,LD Pager# [phone] Phone: [phone] in this encounter Plan of Treatment +--------+---------+ + + + | Date | Type | Specialty | Care Team | Description | +--------+---------+ + + + | 01/08/ | Office | Cardiology | Juan Antonio Mclaughlin, | | | 2017 | Visit | | [address] | | | | | | [address] | | | | | | [place], [place] | | | | | | [address] | | | | | | [phone] | | | | | | | | +--------+---------+ + + + as of this encounter Procedures + +--------+ + + + | Procedure Name | Priori | Date/Time | Associated Diagnosis | Comments | | | ty | | | | + +--------+ + + + | [facility] MNT RE-ASSESSMNT | Routin | 06/17/2017 | S/P laparoscopic | | | X15MIN | e | 8:57 AM | sleeve gastrectomy | | | | | PST | | | + +--------+ + + + in this encounter Visit Diagnoses + + | Diagnosis | + + | S/P laparoscopic sleeve gastrectomy - Primary | + +
--- OUTSIDE RECORDS SUMMARY | 2017-08-16 20:59 | XMS | Clinical Summary ---
Demographics + + + | Address | [address] | | | [place] [address] | + + + | Home Phone | | + + + | Preferred Language | Unknown | + + + | Marital Status | Single | + + + | Orthodoxy Affiliation | NON | + + + | Race | White | + + + | Ethnic Group | Not or | + + + Author + + + | Author | [facility] | + + + | Organization | [facility] | + + + | Address | Unknown | + + + | Phone | Unavailable | + + + Support + + +---------+ + | Name | Relationship | Address | Phone | + + +---------+ + | Jordan Aguirre | ECON | Unknown | Unavailable | + + +---------+ + Care Team Providers + +------+ + | Care Risk Control Consultant Name | Role | Phone | + +------+ + | Bassam Ross DO | PP | | + +------+ + Source Comments [facility] and [facility] In[facility] Allergies + + + + + + | Active Allergy | Reactions | Severity | Noted | Comments | | | | | Date | | + + + + + + | Fluticasone-Salmeter | Airway Constriction | High | 01/23/20 | | | ol | | | 15 | | + + + + + + | Amoxicillin | Hives | | 01/04/20 | | | | | | 14 | | + + + + + + | Clarithromycin | | | 08/15/18 | | | | | | 99 | | + + + + + + | Gabapentin | Unknown | | 07/27/19 | | | | | | 15 | | + + + + + + | Hydrocodone-Acetamin | | | 08/15/18 | | | ophen | | | 99 | | + + + + + + | Oxycodone | Hives | | 08/15/19 | | | Terephthalate | | | 15 | | + + + + + + | Sulfa (Sulfonamide | Rash | | 01/04/20 | | | Antibiotics) | | | 14 | | + + + + + + Current Medications + + +--------+---------+------+------+-------+ | Prescription | Sig. | Disp. | Refills | Star | End | Statu | | | | | | t | Date | s | | | | | | Date | | | + + +--------+---------+------+------+-------+ | Pramipexole | Take 1.5 mg by mouth | | | | | Activ | | (MIRAPEX) 0.75 mg | two times daily. | | | | | e | | oral tablet | | | | | | | + + +--------+---------+------+------+-------+ | albuterol 90 | Inhale every four | | | | | Activ | | mcg/actuation | hours as needed. | | | | | e | | inhalation HFA | | | | | | | | aerosol inhaler | | | | | | | + + +--------+---------+------+------+-------+ | calcium citrate | Take 2 tablets by | 180 | 11 | 06/ | | Activ | | 200 mg elemental | mouth three times | tablet | | 5/20 | | e | | (950 mg total salt) | daily. | | | 16 | | | | oral tablet | | | | | | | + + +--------+---------+------+------+-------+ | omeprazole 20 mg | Take 1 tablet by | 30 | 11 | 10/30 | | Activ | | oral tablet,delayed | mouth once daily. | tablet | | 5/20 | | e | | release | Indications: | | | 16 | | | | (/EC)Indications: | HEARTBURN | | | | | | | Heartburn | | | | | | | + + +--------+---------+------+------+-------+ | metFORMIN 1,000 mg | Take 1,000 mg by | | | | | Activ | | oral tablet | mouth two times | | | | | e | | | daily. | | | | | | + + +--------+---------+------+------+-------+ | ergocalciferol | Take by mouth every | | | | | Activ | | 50,000 unit oral | seven days. | | | | | e | | capsule | | | | | | | + + +--------+---------+------+------+-------+ | atorvastatin 10 mg | Take 10 mg by mouth | | | | | Activ | | oral tablet | once daily. | | | | | e | + + +--------+---------+------+------+-------+ | dilTIAZem 90 mg | Take 360 mg by mouth | | | | | Activ | | oral tablet | once daily at | | | | | e | | | bedtime. | | | | | | + + +--------+---------+------+------+-------+ | warfarin 5 mg oral | Take 5 mg by mouth | | | | | Activ | | tablet | once daily. | | | | | e | + + +--------+---------+------+------+-------+ Active Problems + + + | Problem | Noted Date | + + + | Morbid obesity with BMI of 60.0-69.9, adult ([facility]) | 02/25/2016 | + + + | Abnormal intestinal absorption | 11/14/2015 | + + + | Gastroesophageal reflux disease | 11/14/2015 | + + + | Vitamin D deficiency disease | 08/08/2015 | + + + | Vitamin B 12 deficiency | 08/08/2015 | + + + | Physical deconditioning | 08/08/2015 | + + + | Physical deconditioning | 06/26/2015 | + + + | Chronic pain | 06/26/2015 | + + + | Diabetes mellitus type 2, diet-controlled (HCC) | 02/15/2015 | + + + | S/P laparoscopic sleeve gastrectomy | 02/15/2015 | + + + | Vaginal yeast infection | 02/15/2015 | + + + | CPAP/BiPAP dependence | 02/07/2015 | + + + | Essential hypertension, benign | 02/07/2015 | + + + | Posttraumatic stress disorder | 10/11/2013 | + + + | Major depressive disorder, recurrent episode, moderate (HCC) | 10/11/2013 | + + + | Sleep apnea | 09/22/2013 | + + + | Chronic pain | 09/22/2013 | + + + | Asthma | 09/22/2013 | + + + | Nephrotic syndrome | 09/22/2013 | + + + | Hx of laparoscopic gastric banding | 09/22/2013 | + + + Encounters +--------+ + + + + | Date | Type | Specialty | Care Team | Description | +--------+ + + + + | 06/25/ | MyChart | | Hansa Hawkins, | RE:Follow-up | | 2017 | Encounter | | AGACNP | | +--------+ + + + + | 06/16/ | Lab | | | Essential | | 2017 | | | | hypertension, | | | | | | benign; Sleep apnea, | | | | | | unspecified type; | | | | | | Gastroesophageal | | | | | | reflux disease, | | | | | | esophagitis presence | | | | | | not specified; | | | | | | Vitamin D deficiency | | | | | | disease; S/P | | | | | | laparoscopic sleeve | | | | | | gastrectomy; Vitamin | | | | | | B 12 deficiency; Hx | | | | | | of laparoscopic | | | | | | gastric banding; | | | | | | Morbid obesity with | | | | | | BMI of 60.0-69.9, | | | | | | adult ([facility]); | | | | | | Diabetes mellitus | | | | | | type 2, | | | | | | diet-controlled | | | | | | ([facility]) | +--------+ + + + + | 06/16/ | Office | | Hansa Hawkins, | S/P laparoscopic | | 2017 | Visit | | AGACNP | sleeve gastrectomy | | | | | | (Primary Dx); | | | | | | Essential | | | | | | hypertension, | | | | | | benign; Sleep apnea, | | | | | | unspecified type; | | | | | | Gastroesophageal | | | | [...] | | | | | | adult ([facility]); | | | | | | Diabetes mellitus | | | | | | type 2, | | | | | | diet-controlled | | | | | | (HCC) | +--------+ + + + + | 06/16/ | Office | | Mihaela Villa, | S/P laparoscopic | | 2018 | Visit | | RD | sleeve gastrectomy | | | | | | (Primary Dx) | +--------+ + + + + from Last 3 Months Family History + + +------+ + | Medical History | Relation | Name | Comments | + + +------+ + | Diabetes | Father | | | + + +------+ + | Heart Disease | Father | | NC 78 | + + +------+ + | Hypertension | Father | | | + + +------+ + | Hypertension | Mother | | | + + +------+ + | Obesity | Mother | | | + + +------+ + + +------+ + + | Relation | Name | Status | Comments | + +------+ + + | Father | | Alive | | + +------+ + + | Mother | | | hernia rupture | + +------+ + + Social History + + + [...] on file | | + + + Last Filed Vital Signs + + + [...] + + + | Respiratory Rate | 20 | 02/25/2016 3:17 PM PDT | + + + + | Oxygen Saturation | 100% | 06/26/2015 10:30 AM PST | + + + + | Inhaled [...] PM PST | + + + + Plan of Treatment +--------+---------+ + + + | Date | Type | Specialty | Care Team | Description | +--------+---------+ + + + | 01/08/ | Office | | Juan Antonio Mclaughlin, | | | 2018 | Visit | | [address] [facility] | | | | | | [address] | | | | | | [place], [place] | | | | | | [address] | | | | | | [phone] | | | | | | | | +--------+---------+ + + + + + + + + | Health Maintenance | Due Date | Last Done | Comments | + + + + + | INFLUENZA VACCINE | Completed | 03/16/2017, 03/10/2016, | | | (FLU SHOT) | | 02/28/2016, Additional history | | | | | exists | | + + + + + Implants + +------+--------+ +--------+--------+--------+ | Implanted | Type | Area | Manufacture | Device | Expira | Model | | | | | r | | tion | / | | | | | | Identi | Date | Serial | | | | | | fier | | / Lot | + +------+--------+ +--------+--------+--------+ | Dion Gaticaard Implanted: | | N/A: | | | 09/28/ | BSGE | | Qty: 4 on 02/07/2015 by | | Abdome | | | 2017 | [id number] / | | Dori Reed MD | | n | | | | | | | | | | | | /[id number] | | | | | | | | 329 | + +------+--------+ +--------+--------+--------+ | Dion Velamplanted: Qty: | | N/A: | | | 08/29/ | BSGE | | 2 on 02/07/2015 by Dianelys Reed | | | 2018 | [id number] / | | Dori Ferris MD | | n | | | | | | | | | | | | /[id number] | | | | | | | | 327 | + +------+--------+ +--------+--------+--------+ Procedures + +--------+ + + + | Procedure Name | Priori | Date/Time | Associated Diagnosis | Comments | | | ty | | | | + +--------+ + + + | AR MNT RE-ASSESSMNT | Routin | 06/17/2017 | S/P laparoscopic | | | X15MIN | e | 8:57 AM | sleeve gastrectomy | | | | | PST | | | + +--------+ + + + from Last 3 Months Results CBC (HEMOGRAM) ONLY (06/16/2017 4:22 PM) + + + + | Component | Value | Ref Range | + + + + | WHITE CELL COUNT | 12.04 (H) | 3.50 - 10.80 K/cu mm | + + + + | RED CELL COUNT | 5.30 (H) | 4.00 - 5.20 M/cu mm | + + + + | HEMOGLOBIN | 15.2 | 12.0 - 16.0 g/dL | + + + + | HEMATOCRIT | 48.2 (H) | 36.0 - 46.0 % | + + + + | MCV | 90.9 | 80.0 - 96.0 fL | + + + + | MCHC | 31.5 | 33.0 - 35.5 g/dL | + + + + | RDW SD | 49.8 (H) | 35.1 - 46.3 fL | + + + + | PLATELET COUNT | 399 | 150 - 400 K/cu mm | + + + + | MPV | 10.3 | 9.7 - 12.3 fL | + + + + | NRBC% | 0.0 | 0.0 - 0.3 % | + + + + | NRBC# | 0.00 | 0.00 - 0.02 K/cu mm | + + + + + + + | Specimen | Performing Laboratory | + + + | Blood | [facility], CORE [address] [place] [address] | | | [place] [address] | + + + VITAMIN B1, WHOLE BLOOD (06/16/2017 [...] characteristics | | | | determined by [employer]. See | | | | Compliance Statement B: | | | | [employer] | | | | [facility],[address] [place] [address],[place] [address] | | | | [phone].[employer], Iker Angelo, | | | | , Lab. Director | | + + + + + + + | Specimen | Performing Laboratory | + + + | Blood | [facility] [address] | | | [place] [address] | + + + VITAMIN D, 25-HYDROXY, SERUM (06/16/2017 4:22 PM) + +-------+ + | Component | Value | Ref Range | + +-------+ + | VITAMIN D 25 HYDROXY | 44.8 | 30 - 80 ng/mL | + +-------+ + + + + | Specimen | Performing Laboratory | + + + | Blood | [facility], CORE [address] [place] [address] | | | [place] [address] | + + + + + | Narrative | + + | Reference Interval: 0-18years: Deficiency: <20 ng/mL | | Optimum level: >or=20 | | ng/mL >18years: | | Deficiency: <20 ng/mL | | Insufficiency: 20-29 ng/mL Optimum Level: 30-80 ng/mL | | High: 81-150 ng/ml | | Toxic: >150 ng/mL | + + BASIC METABOLIC SET (NA, K, [...] | >60 | >60 mL/min | | MAURITANIAN | | | + + + + | EGFR NON | >60 | >60 mL/min | | -MAURITANIAN | | | + + + + [...] | + + + | Blood | [facility], CORE [address] | | | [place] [address] | + + + + + | Narrative | + + | Adult glucose reference range change effective 712-17. GFR is estimated using the | | [...] | | ------ CBC (HEMOGRAM) | | ONLY[[id number]] Abnormal Final | | result Please view results for these tests on the | | individual orders. | + + FERRITIN (06/16/2017 4:22 PM) [...] | + + + | Blood | [facility], CORE [address] | | | [place] [address] | + + + PTH, SERUM (06/16/2017 4:22 PM) + +-------+ + | Component | Value | Ref Range | + +-------+ + | PTH, SERUM | 52 | 18 - 88 pg/mL | + +-------+ + + + + | Specimen | Performing Laboratory | + + + | Blood | [facility], CORE [address] [facility] | | | [place] [address] | + + + + + | Narrative | + + | New Reference Range effective 17. | + + TSH (06/16/2017 4:22 PM) + +-------+ + | Component | Value | Ref Range | + +-------+ + | TSH | 3.04 | 0.44 - 4.75 mIU/L | + +-------+ + + + + | Specimen | Performing Laboratory | + + + | Blood | [facility], CORE [address] | | | [place] [address] | + + + + + | Narrative | + + | TSH reference ranges are influenced by a variety of environmental influences, age, | | gender and ethnicity. The supplied reference limits are based on published values | | utilizing a similar TSH assay, and should be interpreted with caution. | + + VITAMIN B-12 (06/16/2017 4:22 [...] | + + + | Blood | [facility], CORE [address] | | | [place] [address] | + + + HEMOGLOBIN A1C, BLOOD (06/16/2017 4:22 PM) + [...] | + + + | Blood | [facility], SPECIAL IMM + COAG [address] | | | [place] [address] | + + + + + | Narrative | + + | Alternate forms of testing such as fructosamine should be considered for | | monitoring technician terminal and repeater glycemic control in patients with: Increased red cell turnover, | | certain hemoglobinopathies (e.g., HbS, HbE, HbC and thalassemia syndromes), anemias, | | blood loss, chronic liver disease and hemochromatosis (artefactually low HbA1c); iron | | deficiency anemia (artefactually high HbA1c due to enhanced glycation of hemoglobin). | | | + + from Last 3 Months
--- OUTSIDE RECORDS SUMMARY | 2017-08-16 20:59 | XMS | Encounter Summary ---
Demographics + + + | Address | [address] | | | [place] [address] | + + + | Home Phone | | + + + | Preferred Language | Unknown | + + + | Marital Status | Single | + + + | Latter Day Affiliation | NON | + + + | Race | White | + + + | Ethnic Group | Not or | + + + Author + + + | Author | [facility] | + + + | Organization | [facility] | + + + | Address | Unknown | + + + | Phone | Unavailable | + + + Support + + +---------+ + | Name | Relationship | Address | Phone | + + +---------+ + | Jordan Aguirre | ECON | Unknown | Unavailable | + + +---------+ + Care Team Providers + +------+ + | Care Special Agent Fbi Name | Role | Phone | + [...] | Non [facility] | Diagnoses | [facility], | Non[facility] | | | | Department | S/P | Hansa Hawkins, | Epic Dept | | | | | laparoscopic | AGACNP [address] | | | | | | sleeve | [address] | | | | | | gastrectomy | [place], | | | | | | [place] | [place] | | | | | | deficiency | [address] | | | | | | Procedures | Phone: | | | | | | CONSULT TO | [phone] | | | | | | NON - [facility] | Fax: | | | | | | PROVIDER | [phone] | | + +--------+ + + + + Encounter Details +--------+ + + + + | Date | Type | Department | Care Team | Description | +--------+ + + + + | 06/25/ | MyChart | Digestive Health | Hansa aHwkins, | RE:Follow-up | | 2018 | Encounter | Center at [facility] [address] | [facility] [address] | | | | | [facility] [address] | [place], [place] | | | | | mil Mailcode: [facility] | [address] | | | | | [place] for [facility] | [phone] | | | | | and [facility] | | | | | | [place], [place] | | | | | | [address] | | | | | | [phone] | | | +--------+ + + + [...] [address] | | | | | | [place], [place] | | | | | | [address] | | | | | | [phone] | | | | | | | | +--------+---------+ + + + as of this encounter Visit Diagnoses + + | Diagnosis | + + | S/P laparoscopic sleeve gastrectomy - Primary | + + | Iron deficiency | + + | Other disorders of iron metabolism | + +"
--- OUTSIDE RECORDS SUMMARY | 2017-08-16 20:59 | XMS | Encounter Summary ---
Demographics + + + | Address | [address] | | | [place] [address] | + + + | Home Phone | | + + + | Preferred Language | Unknown | + + + | Marital Status | Single | + + + | Restorationist Affiliation | NON | + + + | Race | White | + + + | Ethnic Group | Not or | + + + Author + + + | Author | [facility] | + + + | Organization | [facility] | + + + | Address | Unknown | + + + | Phone | Unavailable | + + + Support + + +---------+ + | Name | Relationship | Address | Phone | + + +---------+ + | Jordan Aguirre | ECON | Unknown | Unavailable | + + +---------+ + Care Team Providers + +------+ + | Care Lung Puller Name | Role | Phone | + +------+ + | Bassam Ross DO | PCP | | + +------+ + Encounter Details +--------+------+ + + + | Date | Type | Department | Care Team | Description | +--------+------+ + + + | 06/16/ | Lab | Laboratory at [facility] | | Essential | | 2017 | | 3rd Floor [address] | | hypertension, | | | | [address], | | benign; Sleep apnea, | | | | [place] [address] | | unspecified type; | | | | [phone] | | Gastroesophageal | | | | [...] | | | | | | adult (HCC); | | | | | | Diabetes mellitus | | | | | | type 2, | | | | | | diet-controlled | | | | | | (HCC) | +--------+------+ + + + Social History + + [...] | | 2017 | Visit | | [address] | | | | | | [address] | | | | | | [place], [place] | | | | | | [address] | | | | | | [phone] | | | | | | | | +--------+---------+ + + + as of this encounter Results CBC (HEMOGRAM) ONLY (06/16/2017 4:22 PM) [...] | + + + | Blood | [facility] [address] [place] [address] | | | [place] [address] | + + + HEMOGLOBIN A1C, BLOOD [...] | + + + | Blood | [facility] SERVICES, SPECIAL IMM + [facility] [place] [address] [facility] [address] | | | [place] [address] | + + + + + | Narrative | + + | Alternate forms of testing such as fructosamine should be considered for | | monitoring fpc glycemic control in patients with: Increased red [...] | + + + | Blood | [facility] SERVICES, CORE [address] | | | [place] [address] | + + + + + | [...] | + + + | Blood | [facility] SERVICES, CORE [address] [facility] [address] | | | [place] [address] | + + + BASIC METABOLIC SET [...] | >60 | >60 mL/min | | ECUADOREAN | | | + + + + | EGFR NON | >60 | >60 mL/min | | -ECUADOREAN | | | + + + + [...] | + + + | Blood | [facility] SERVICES, CORE [address] | | | [place] [address] | + + + + + | [...] | | ------ CBC (HEMOGRAM) | | ONLY[[id number]] Abnormal Final | | result Please view [...] characteristics | | | | determined by [employer]. See | | | | Compliance Statement B: | | | | Departing/CSPerformed by [email or web address] | | | | [facility] [address] | | | | [phone].Departing, Iker Angelo, | | | | , Lab. Director | | + + + + + + + | Specimen | Performing Laboratory | + + + | Blood | [facility] - [facility] [address] | | | [place] [address] | + + + VITAMIN D, 25-HYDROXY, SERUM (06/16/2017 4:22 PM) + +-------+ + | Component | Value | Ref Range | + +-------+ + | VITAMIN D 25 HYDROXY | 44.8 | 30 - 80 ng/mL | + +-------+ + + + + | Specimen | Performing Laboratory | + + + | Blood | [facility], CORE [address] | | | [place] [address] | + + + + + | [...] | + + + | Blood | [facility] SERVICES, CORE [address] [place] [address] | | | [place] [address] | + + + PTH, SERUM (06/16/2017 4:22 PM) + +-------+ + | Component | Value | Ref Range | + +-------+ + | PTH, SERUM | 52 | 18 - 88 pg/mL | + +-------+ + + + + | Specimen | Performing Laboratory | + + + | Blood | [facility], CORE [address] | | | [place] [address] | + + + + + | Narrative | + + | New Reference Range effective 12--17. | + + in this encounter Visit Diagnoses + + | Diagnosis | + + | Essential hypertension, benign | + + | Sleep apnea, unspecified type | + + | Gastroesophageal reflux disease, esophagitis presence not specified | + + | Vitamin D deficiency disease | + + | Unspecified vitamin D deficiency | + + | S/P laparoscopic sleeve gastrectomy | + + | Vitamin B 12 deficiency | + + | Other B-complex deficiencies | + + | Hx of laparoscopic gastric banding | + + | Bariatric surgery status | + + | Morbid obesity with BMI of 60.0-69.9, adult (HCC) | + + | Diabetes mellitus type 2, diet-controlled (HCC) | + + | Type II or unspecified type diabetes mellitus without mention of complication, not | | stated as uncontrolled | + +"
--- OUTSIDE RECORDS SUMMARY | 2017-08-16 20:59 | XMS | Clinical Summary ---
Demographics + + + | Address | [address] | | | [place] [address] | + + + | Home Phone | | + + + | Preferred Language | Unknown | + + + | Marital Status | Single | + + + | Yarsani Affiliation | None | + + + | Race | White | + + + | Ethnic Group | Not or | + + + Author + + + | Author | [facility] | + + + | Organization | [facility] | + + + | Address | Unknown | + + + | Phone | Unavailable | + + + Support + + + + + | Name | Relationship | Address | Phone | + + + + + | JANAY JOSÉ | ECON | [place] | | + + + + + Care Team Providers + +------+ + | Care Chrome Cleaner Name | Role | Phone | + +------+ + | Bassam Ross DO | PP | | + +------+ + Allergies + + + +--------+ + | Active Allergy | Reactions | Severity | Noted | Comments | | | | | Date | | + + + +--------+ + | Clarithromycin | Rash | Low | | | + + + +--------+ + | Hydrocodone-Acetamin | Rash | Low | | | | ophen | | | | | + + + +--------+ + | Sulfa (Sulfonamide | Rash | Low | | | | Antibiotics) | | | | | + + + +--------+ + Current Medications + + +--------+---------+------+------+-------+ | Prescription | Sig. | Disp. | Refills | Star | End | Statu | | | | | | t | Date | s | | | | | | Date | | | + + +--------+---------+------+------+-------+ | furosemide (LASIX) | Take 80 mg by mouth | | | | | Activ | | 80 mg tablet | 2 Times Daily. | | | | | e | + + +--------+---------+------+------+-------+ | sertraline | Take 100 mg by mouth | | | | | Activ | | (ZOLOFT) 100 mg | Daily. | | | | | e | | tablet | | | | | | | + + +--------+---------+------+------+-------+ | pramipexole | Take 0.75 mg by | | | | | Activ | | (MIRAPEX) 1.5 mg | mouth 2 Times Daily. | | | | | e | | tablet | | | | | | | + + +--------+---------+------+------+-------+ | carvedilol (COREG) | Take 25 mg by mouth | | | | | Activ | | 25 mg tablet | 2 Times Daily (with | | | | | e | | | Meals). | | | | | | + + +--------+---------+------+------+-------+ | buPROPion | Take 300 mg by mouth | | | | | Activ | | (WELLBUTRIN XL) 300 | Every Morning. | | | | | e | | mg XL tablet | | | | | | | + + +--------+---------+------+------+-------+ | estradiol | Take 2 mg by mouth | | | | | Activ | | (ESTRACE) 2 mg | Daily. | | | | | e | | tablet | | | | | | | + + +--------+---------+------+------+-------+ | clonazePAM | Take 2 mg by mouth | | | | | Activ | | (KLONOPIN) 2 mg | At Bedtime As | | | | | e | | tablet | Needed. | | | | | | + + +--------+---------+------+------+-------+ | Lamotrigine | Take 400 mg by mouth | | | | | Activ | | (LAMICTAL ODT) 200 | At Bedtime. | | | | | e | | mg TbDL | | | | | | | + + +--------+---------+------+------+-------+ | | Take 1 tablet by | | | | | Activ | | multivitamin 60 mg | mouth Daily. | | | | | e | | (iron)-1 mg tablet | | | | | | | + + +--------+---------+------+------+-------+ | potassium chloride | Take 20 mEq by mouth | | | | | Activ | | (KLOR-CON M) 20 mEq | 2 Times Daily. | | | | | e | | tablet ER | | | | | | | + + +--------+---------+------+------+-------+ | Cholecalciferol, | Take 50,000 mg by | | | | | Activ | | Vitamin D3, (VITAMIN | mouth Once a Week. | | | | | e | | D3) 50,000 unit | Thursday | | | | | | | capsule | | | | | | | + + +--------+---------+------+------+-------+ | albuterol | Inhale 1 puff into | | | | | Activ | | (PROVENTIL HFA, | the lung Every 6 | | | | | e | | VENTOLIN HFA) 90 | Hours As Needed. | | | | | | | mcg/actuation | | | | | | | | inhaler | | | | | | | + + +--------+---------+------+------+-------+ | oxyCODONE | Take 1-3 tablets by | 80 | 0 | 08/1 | | Activ | | (ROXICODONE) 5 mg | mouth Every 4 Hours | tablet | | 3/20 | | e | | immediate release | As Needed for Pain. | | | 12 | | | | tablet | 5 mg for mild pain, | | | | | | | | 10 mg for moderate | | | | | | | | pain, 15 mg for | | | | | | | | severe painMay take | | | | | | | | acetaminophen | | | | | | | | (Tylenol) with this | | | | | | | | medication | | | | | | + + +--------+---------+------+------+-------+ Active Problems No known active problems Social History + +-------+ +--------+ + | Tobacco Use | Types | Packs/Day | Years | Date | | | | | Used | | + +-------+ +--------+ + | Former Smoker | | | 5 | Quit: 12/30/1998 | + +-------+ +--------+ + + + +---------+ + | Alcohol Use | Drinks/We | oz/Week | Comments | | | ek | | | + + +---------+ + | No | | | | + + +---------+ + + + + | Sex Assigned at | Date Recorded | | | | + + + | Not on file | | + + + Last Filed Vital Signs + + + + | Vital Sign | Reading | Time Taken | + + + + | Blood Pressure | 111/61 | 01/12/2012 6:24 PM PDT | + + + + | Pulse | 72 | 01/12/2012 6:24 PM PDT | + + + + | Temperature | 36.4 C (97.5 F) | 01/12/2012 5:50 PM PDT | + + + + | Respiratory Rate | 16 | 01/12/2012 5:50 PM PDT | + + + + | Oxygen Saturation | 91% | 01/12/2012 6:24 PM PDT | + + + + | Inhaled Oxygen | - | - | | Concentration | | | + + + + | Weight | 172.1 kg (379 lb 6.4 | 01/12/2012 10:29 AM PDT | | | oz) | | + + + + | Height | 160 cm (5' 3") | 01/12/2012 10:29 AM PDT | + + + + | Body Mass Index | 67.21 | 01/12/2012 10:29 AM PDT | + + + + Plan of Treatment + + + + + | Health Maintenance | Due Date | Last Done | Comments | + + + + + | HIV Screening | | | | | | 4 | | | + + + + + | Tetanus | | | | | | 8 | | | + + + + + | Cervical Cancer | | | | | Screening | 0 | | | + + + + + | Breast Cancer | | | | | Screening | 9 | | | + + + + + | IMM Influenza (#1) | | | | | | 7 | | | + + + + + Results Not on filefrom Last 3 Months Advance Directives Patient has advance directives. For more information, please contact:[facility] [place] [address]
--- OUTSIDE RECORDS SUMMARY | 2017-08-16 20:59 | XMS | Clinical Summary ---
Demographics + + + | Address | [address] | | | [place] [address] | + + + | Home Phone | | + + + | Preferred Language | Unknown | + + + | Marital Status | Single | + + + | Hinduism Affiliation | NON | + + + [...] Team Providers + +------+ + | Care Meat Cutter Name | Role | Phone | + +------+ + | Bassam Ross DO | PP | | + +------+ + Source Comments SHERIE is fully live on both [facility] and [facility] InPatient.[facility] Allergies + + + + + + [...] Morbid obesity with BMI of 60.0-69.9, adult ([facility]) | 02/25/2016 | + + + | [...] | | | | | | adult ([facility]); | | | | | | Diabetes mellitus | | | | | | type 2, | | | | | | diet-controlled | | | | | | ([facility]) | +--------+ + + + + | [...] | | | | | | adult ([facility]); | | | | | | Diabetes [...] | Heart Disease | Father | | [place] 76 | + + +------+ + | [...] | | 2018 | Visit | | [address] | | | | | | [address] | | | | | | [place], [place] | | | | | | [address] | | | | | | [phone] | | | | | | | [...] | | | | | | | /[id number] | | | | | | | | [address] | + +------+--------+ +--------+--------+--------+ | Dion Velamplanted: Qty: | | N/A: | | | 08/29/ | BSGE | | 2 on 02/07/2015 by Dianelys Reed | | | 2018 | [id number] / | | Dori Ferris MD | | n | | | | | | | | | | | | /[id number] | | | | | | | | 327 | + +------+--------+ +--------+--------+--------+ Procedures + +--------+ + + + | Procedure Name | Priori | Date/Time | Associated Diagnosis | Comments | | | ty | | | | + +--------+ + + + | [place] MNT RE-ASSESSMNT | Routin | 06/17/2017 | [...] | + + + | Blood | [facility], CORE [address] [place] [address] | | | [place] [address] | + + + VITAMIN B1, WHOLE [...] characteristics | | | | determined by [employer]. See | | | | Compliance Statement B: | | | | [employer]/CSPerformed by Anke | | | | [facility],[address] [place] [address],[place] [address] | | | | [phone].[employer], Iker Angelo, | | | | , Lab. Director | | + + + + + + + | Specimen | Performing Laboratory | + + + | Blood | [facility] - [facility] [address] [facility] | | | [place] [address] | + + + VITAMIN D, 25-HYDROXY, SERUM (06/16/2017 4:22 PM) + +-------+ + | Component | Value | Ref Range | + +-------+ + | VITAMIN D 25 HYDROXY | 44.8 | 30 - 80 ng/mL | + +-------+ + + + + | Specimen | Performing Laboratory | + + + | Blood | [facility], CORE [address] [place] [address] | | | [place] [address] | + + + + + | [...] | >60 | >60 mL/min | | [place] | | | + + + + | EGFR NON | >60 | >60 mL/min | | -[place] | | | + + + + [...] | + + + | Blood | [facility], CORE [address] | | | [place] [address] | + + + + + | [...] | | ------ CBC (HEMOGRAM) | | ONLY[[id number]] Abnormal Final | | result Please view [...] | + + + | Blood | [facility], CORE [address] | | | [place] [address] | + + + PTH, SERUM (06/16/2017 4:22 PM) + +-------+ + | Component | Value | Ref Range | + +-------+ + | PTH, SERUM | 52 | 18 - 88 pg/mL | + +-------+ + + + + | Specimen | Performing Laboratory | + + + | Blood | [facility], CORE [address] [facility] | | | [place] [address] | + + + + + | [...] | + + + | Blood | [facility], CORE [address] | | | [place] [address] | + + + + + | [...] | + + + | Blood | [facility], CORE [address] | | | [place] [address] | + + + HEMOGLOBIN A1C, BLOOD [...] | + + + | Blood | [facility], SPECIAL IMM + [place] [address] [facility] [facility] | | | [place] [address] | + + + + + | Narrative | + + | Alternate forms of testing such as fructosamine should be considered for | | monitoring buttermaker glycemic control in patients with: Increased red cell turnover, | | certain hemoglobinopathies (e.g., HbS, HbE, HbC and thalassemia syndromes), anemias, | | blood loss, chronic liver disease and hemochromatosis (artefactually low HbA1c); iron | | deficiency anemia (artefactually high HbA1c due to enhanced glycation of hemoglobin). | | | + + from Last 3 Months
--- OUTSIDE RECORDS SUMMARY | 2017-08-16 21:00 | XMS | Encounter Summary ---
Demographics + + + | Address | [address] | | | [place] [address] | + + + | Home Phone | | + + + | Preferred Language | Unknown | + + + | Marital Status | Single | + + + | Oriental Orthodox Affiliation | NON | + + + | Race | White | + + + | Ethnic Group | Not or | + + + Author + + + | Author | [facility] | + + + | Organization | [facility] | + + + | Address | Unknown | + + + | Phone | Unavailable | + + + Support + + +---------+ + | Name | Relationship | Address | Phone | + + +---------+ + | Jordan Aguirre | ECON | Unknown | Unavailable | + + +---------+ + Care Team Providers + +------+ + | Care Power Tool Repair Technician Name | Role | Phone | + [...] | | | | | | | [facility] | | | | | | | for Health | | | | | | | and Healing | | | | | | | [place], [place] | | | | | | | [address] | | | | | | | Phone: | | | | | | | [phone] | | | | | | | Fax: | | | | | | | [phone] | + +--------+ + + + + Encounter Details +--------+---------+ + + + | Date | Type | Department | Care Team | Description | +--------+---------+ + + + | 06/16/ | Office | Digestive Health | Mihaela Villa, | S/P laparoscopic | | 2018 | Visit | Center at [facility] [address] | [address] | sleeve gastrectomy | | | | Floor [address] | (Primary Dx) | | | | Ave Mailcode: | [place], [place] | | | | | [facility] | [address] | | | | | Health and Healing | | | | | | [place], [place] | | | | | | [address] | | | | | | [phone] | | | +--------+---------+ + + + [...] Ross DO [address] [place] [address] Documented time of visit: 2:33 to 3:03 (30 minutes coey-cw-eady with patient) Surgery: Sleeve Gastrectomy Date of Surgery: 02/07/15 Subjective: Continues to have an infection in leg. Lost her dad last ANTONIO. Went to the [employer] loss conference in [place] last year. Wanting some options in regards [...] Physical Activity: walking at the gym at [employer] with some friends 2x/wk 60 Changes in [...] echo and chest xray findings. Followed by experience specialist in [place]. Shortness of breath Thyroid disease Food logs: [...] multivitamin & mineral (with iron) supplement, 2/day -7659-3282 mg calcium citrate with vitamin D/day (take in divided doses, not within 2 hour s of multivitamin or iron supplement) -500 mcg/day sublingual B12 supplement (or monthly injections) Continued to reinforce importance of mindful eating. Continue to increase physical activity. Follow up Mihaela cooper RD,[place] Pager# [phone] Phone: [phone] in this encounter Plan of Treatment +--------+---------+ + + + | Date | Type | Specialty | Care Team | Description | +--------+---------+ + + + | 01/08/ | Office | Cardiology | Juan Antonio Mclaughlin, | | | 2017 | Visit | | [address] | | | | | | [address] | | | | | | [place], [place] | | | | | | [address] | | | | | | [phone] | | | | | | | | +--------+---------+ + + + as of this encounter Procedures + +--------+ + + + | Procedure Name | Priori | Date/Time | Associated Diagnosis | Comments | | | ty | | | | + +--------+ + + + | [place] MNT RE-ASSESSMNT | Routin | 06/17/2017 | [...]
--- OUTSIDE RECORDS SUMMARY | 2017-08-16 21:00 | XMS | Encounter Summary ---
Demographics + + + | Address | [address] | | | [place] [address] | + + + | Home Phone [...] Author + + + | Author | [facility] | + + + | Organization | [facility] | + + + | Address | Unknown | + + + | Phone | Unavailable | + + + Support + + +---------+ + | Name | Relationship | Address | Phone | + + +---------+ + | Jordan Aguirre | ECON | Unknown | Unavailable | + + +---------+ + Care Team Providers + +------+ + | Care Chicken Cutter Name | Role | Phone | [...] | | | | | type | [address] | [address] | | | | | Gastroesopha | Phone: | Phone: | | | | | geal reflux | [phone] | [phone] | | | | | disease, | Fax: | Fax: | | | | | esophagitis | [phone] | [phone] | | | | | presence not [...] | | | | Sleep apnea, | [place], | Physicians | | | | | unspecified | [place] | Pavilion | | | | | type | [phone] | Physicians | | | | | Gastroesopha | Phone: | Pavilion | | | | | geal reflux | [phone] | [place], [place] | | | | | disease, | Fax: | [address] | | | | | esophagitis | [phone] | Phone: | | | | | presence not | | [phone] | | | | | specified | | Fax: | | | | | Vitamin D | | [phone] | | | | | deficiency | [...] | | | | | | | [address] | | | | | | | for Health | | | | | | | and Healing, | | | | | | | 6th floor | | | | | | | [place], [place] | | | | | | | [address] | | | | | | | Phone: | | | | | | | [phone] | | | | | | | Fax: | | | | | | | [phone] | + +--------+ + + + + Encounter Details +--------+---------+ + + + | Date | Type | Department | Care Team | Description | +--------+---------+ + + + | 06/16/ | Office | Digestive Health | Hansa Hawkins, | S/P laparoscopic | | 2018 | Visit | Center at [facility] 6th | AGACNP [address] | sleeve gastrectomy | | | | Floor [address] | Ave [place], [place] | (Primary Dx); | | | | Ave Mailcode: CH4S | [address] | Essential | | | | [facility] | | hypertension, | | | | and Healing, 6th | | benign; Sleep apnea, | | | | floor [place], [place] | | unspecified type; | | | | [address] | | Gastroesophageal | | | | [...] | | | | | | adult ([facility]); | | | | | | Diabetes mellitus | | | | | | type 2, | | | | | | diet-controlled | | | | | | ([facility]) | +--------+---------+ + + + Social [...] PM PST-start journaling food intake again, download [employer] samuel. -make appt with Mihaela for nutritional [...] a "partial sleeve". Activity: Walking daily, with presybeterian friends. Fluids: getting 64 oz fluid daily. [...] echo and chest xray findings. Followed by inspector and adjuster golf club head in [place]. Shortness of breath Thyroid disease Past Surgical History Procedure Laterality Date C section 1998 Tonsillectomy 1996 Knee surgery 1996 Gastric banding 2004, 2007, 2011 Skin and subcutaneous tissue surgery 2006 Foot surgery 2009 - 2010 3x Hysterectomies, vaginal 2009 Appendectomy for ruptured appendix with abscess 2012 Gallbladder surgery 2008 Laparotomy 07/2014 Laparoscopic sleeve gastrectomy 02/07/2015 [facility] Brianna Social History Social History Marital status: [...] sinus rhythm. Normal ECG Records reviewed from [facility] (see media tab): Echocardiogram 11/18/2013: [...] There is no pericardial effusion.21. No mass [id number]. Po or visualization. Definity was used to opacify the left ventricular chamber and improve deli neation of the endocardial border. Family History Problem Relation Diabetes Father Hypertension Mother Obesity Mother Hypertension Father Heart Disease Father [place] 76 Allergies Allergies Allergen Reactions Advair Diskus [...] is having daily. -I suggested making another medical supply technician appt for next month to discuss [...] to plan and will call and/or send RIWI message if any issues. Start time 314, end time 349. I spent a total of 35 minutes face to face with this patie nt. Over 50% of visit was in counseling. MILAD Rodriguez-RENETTA Bariatric Surgery Nurse Practitioner [facility] | [address] | [place] | [address] | in this encounter Plan of Treatment +--------+---------+ + + + | Date | Type | Specialty | Care Team | Description | +--------+---------+ + + + | 01/08/ | Office | Cardiology | Juan Antonio Mclaughlin, | | | 2017 | Visit | | MD Elvin Dee | | | | | | [address] | | | | | | [place], [place] | | | | | | [address] | | | | | | [phone] | | | | | | | [...] | + + + | Blood | [facility] LABOR[facility]ORY SERVICES, SPECIAL IMM + COAG [address] | | | [place] [address] | + + + + + | Narrative | + + | Alternate forms of testing such as fructosamine should be considered for | | monitoring termite inspector glycemic control in patients with: Increased red [...] | + + + | Blood | [facility], CORE [address] [facility] | | | [place] [address] | + + + + + | [...] | + + + | Blood | [facility] SERVICES, CORE [address] [place] [address] | | | [place] [address] | + + + BASIC METABOLIC SET [...] | >60 | >60 mL/min | | AZERBAIJANI | | | + + + + | EGFR NON | >60 | >60 mL/min | | -AZERBAIJANI | | | + + + + [...] | + + + | Blood | [facility], CORE [address] [facility] [address] [address] | | | [place] [address] | + + + + + | [...] | | ------ CBC (HEMOGRAM) | | ONLY[[id number]] Abnormal Final | | result Please view [...] characteristics | | | | determined by [employer]. See | | | | Compliance Statement B: | | | | TutorialTab/CSPerformed by [facility] | | | | [address] [address] | | | | [phone].Tutorial[employer], Iker Angelo, | | | | Katherin BECKHAM. Director | | + + + + + + + | Specimen | Performing Laboratory | + + + | Blood | [facility] UNIV PTH - INTFC [address] [facility] | | | [place] [address] | + + + VITAMIN D, 25-HYDROXY, SERUM (06/16/2017 4:22 PM) + +-------+ + | Component | Value | Ref Range | + +-------+ + | VITAMIN D 25 HYDROXY | 44.8 | 30 - 80 ng/mL | + +-------+ + + + + | Specimen | Performing Laboratory | + + + | Blood | [facility] LABOR[facility]ORY [facility], CORE [address] [facility] | | | [place] [address] | + + + + + | [...] | + + + | Blood | [facility] SERVICES, CORE [address] [facility] | | | [place] [address] | + + + PTH, SERUM (06/16/2017 4:22 PM) + +-------+ + | Component | Value | Ref Range | + +-------+ + | PTH, SERUM | 52 | 18 - 88 pg/mL | + +-------+ + + + + | Specimen | Performing Laboratory | + + + | Blood | [facility] SERVICES, CORE [address] [facility] | | | [place] [address] | + + + + + | [...]
--- OUTSIDE RECORDS SUMMARY | 2017-08-16 21:00 | XMS | Encounter Summary ---
Demographics + + + | Address | [address] | | | [place] [address] | + + + | Home Phone [...] Author + + + | Author | [facility] | + + + | Organization | [facility] | + + + | Address | Unknown | + + + | Phone | Unavailable | + + + Support + + +---------+ + | Name | Relationship | Address | Phone | + + +---------+ + | Jordan Aguirre | ECON | Unknown | Unavailable | + + +---------+ + Care Team Providers + +------+ + | Care Gas Pumping Station Helper Name | Role | Phone | + +------+ + | Bassam Ross DO | PCP | | + +------+ + Encounter Details +--------+------+ + + + | Date | Type | Department | Care Team | Description | +--------+------+ + + + | 06/16/ | Lab | Laboratory at [facility] | | Essential | | 2017 | | 3rd Floor [address] | | hypertension, | | | | [address] [place], | | benign; Sleep apnea, | | | | [place] [address] | | unspecified type; | | | | [phone] | | Gastroesophageal | | | | [...] Rd | | | | | | [place], [place] | | | | | | [address] | | | | | | [phone] | | | | | | | [...] + + + | Blood | [facility], [facility] [address] [place] [address] | | | [place] [address] | + + + HEMOGLOBIN A1C, BLOOD [...] + + + | Blood | [facility] SERVICES, SPECIAL IMM + [facility] [address] [facility] | | | [place] [address] | + + + + + | Narrative | + + | Alternate forms of testing such as fructosamine should be considered for | | monitoring detention glycemic control in patients with: Increased red [...] + + + | Blood | [facility] SERVICES, CORE [address] | | | [place] [address] | + + + + + | [...] + + + | Blood | [facility] SERVICES, CORE [address] [facility] | | | [place] [address] | + + + BASIC METABOLIC SET [...] | >60 | >60 mL/min | | UKRAINIAN | | | + + + + | EGFR NON | >60 | >60 mL/min | | -UKRAINIAN | | | + + + + [...] + + + | Blood | [facility] SERVICES, CORE [address] | | | [place] [address] | + + + + + | [...] | | ------ CBC (HEMOGRAM) | | ONLY[[id number]] Abnormal Final | | result Please view [...] characteristics | | | | determined by [employer]. See | | | | Compliance Statement B: | | | | [employer]/CSPerformed by [employer] (Closed) | | | | [facility]wana VallecilloUINTA[facility],[place] [address] | | | | [phone].[employer], Iker Angelo, | | | | , Lab. Director | | + + + + + + + | Specimen | Performing Laboratory | + + + | Blood | [facility] UNIV PTH - INTFC [address] [facility] | | | [place] [address] | + + + VITAMIN D, 25-HYDROXY, SERUM (06/16/2017 4:22 PM) + +-------+ + | Component | Value | Ref Range | + +-------+ + | VITAMIN D 25 HYDROXY | 44.8 | 30 - 80 ng/mL | + +-------+ + + + + | Specimen | Performing Laboratory | + + + | Blood | [facility], CORE [address] | | | [place] [address] | + + + + + | [...] | + + + | Blood | [facility] SERVICES, CORE [address] [place] [address] | | | [place] [address] | + + + PTH, SERUM (06/16/2017 4:22 PM) + +-------+ + | Component | Value | Ref Range | + +-------+ + | PTH, SERUM | 52 | 18 - 88 pg/mL | + +-------+ + + + + | Specimen | Performing Laboratory | + + + | Blood | [facility], CORE [address] | | | [place] [address] | + + + + + | [...]
--- OUTSIDE RECORDS SUMMARY | 2017-08-16 21:00 | XMS | Clinical Summary ---
Demographics + + + | Address | [address] | | | [place] [address] | + + + | Home Phone | | + + + | Preferred Language | Unknown | + + + | Marital Status | Single | + + + | Mu-Ism Affiliation | None | + + + [...] Team Providers + +------+ + | Care Control Panel Operator Crude Unit Name | Role | Phone | + [...] has advance directives. For more information, please contact:[employer] [place] [address]
== END ==
LOC: ED 19:56
DX: B82.0 Intestinal helminthiasis, unspecified (principal); E66.01 Morbid (severe) obesity due to excess calories; J45.909 Unspecified asthma, uncomplicated; E03.9 Hypothyroidism, unspecified; Z87.891 Personal history of nicotine dependence; Z88.0 Allergy status to penicillin; Z88.2 Allergy status to sulfonamides; Z79.01 Long term (current) use of anticoagulants; Z79.899 Other long term (current) drug therapy
CPT/HCPCS: 99282

== ENCOUNTER 2017-09-13 19:43 | Emergency (ER) | payer OTHER ==
[~2017-09-13] VITALS: Ht 160 cm; Wt 192.8 kg
--- OUTSIDE RECORDS SUMMARY | ~2017-09-13 | XMS | Encounter Summary ---
Demographics + + + | Address | [address] | | | [place] [address] | + + + | Home Phone | | + + + | Preferred Language | Unknown | + + + | Marital Status | Single | + + + | Voodoo Affiliation | NON | + + + | Race | White | + + + | Ethnic Group | Not or | + + + Author + + + | Author | [facility] | + + + | Organization | [facility] | + + + | Address | Unknown | + + + | Phone | Unavailable | + + + Support + + +---------+ + | Name | Relationship | Address | Phone | + + +---------+ + | Jordan Aguirre | ECON | Unknown | Unavailable | + + +---------+ + Care Team Providers + +------+ + | Care Laboratory Operations Coordinator Name | Role | Phone | + [...] | | | | | type | [address] | [address] | | | | | Gastroesopha | Phone: | Phone: | | | | | geal reflux | [phone] | [phone] | | | | | disease, | Fax: | Fax: | | | | | esophagitis | [phone] | [phone] | | | | | presence not [...] | | | | Sleep apnea, | [place], | Physicians | | | | | unspecified | [place] | Pavilion | | | | | type | [phone] | Physicians | | | | | Gastroesopha | Phone: | Pavilion | | | | | geal reflux | [phone] | [place], [place] | | | | | disease, | Fax: | [address] | | | | | esophagitis | [phone] | Phone: | | | | | presence not | | [phone] | | | | | specified | | Fax: | | | | | Vitamin D | | [phone] | | | | | deficiency | [...] | | | | | | | [address] | | | | | | | for Health | | | | | | | and Healing, | | | | | | | 6th floor | | | | | | | [place], [place] | | | | | | | [address] | | | | | | | Phone: | | | | | | | [phone] | | | | | | | Fax: | | | | | | | [phone] | + +--------+ + + + + Encounter Details +--------+---------+ + + + | Date | Type | Department | Care Team | Description | +--------+---------+ + + + | 06/16/ | Office | Digestive Health | Hansa Hawkins, | S/P laparoscopic | | 2018 | Visit | Center at [facility] 6th | AGACNP [address] | sleeve gastrectomy | | | | Floor [address] | Ave [place], [place] | (Primary Dx); | | | | Ave Mailcode: CH4S | [address] | Essential | | | | [facility] | | hypertension, | | | | and Healing, 6th | | benign; Sleep apnea, | | | | floor [place], [place] | | unspecified type; | | | | [address] | | Gastroesophageal | | | | [...] | | | | | | adult ([facility]); | | | | | | Diabetes mellitus | | | | | | type 2, | | | | | | diet-controlled | | | | | | ([facility]) | +--------+---------+ + + + Social History [...] PM PST-start journaling food intake again, download natue samuel. -make appt with Mihaela for nutritional [...] a "partial sleeve". Activity: Walking daily, with evangelical friends. Fluids: getting 64 oz fluid daily. [...] echo and chest xray findings. Followed by kitchen and counter worker in [place]. Shortness of breath Thyroid disease Past Surgical History Procedure Laterality Date C section 1998 Tonsillectomy 1996 Knee surgery 1996 Gastric banding 2004, 2007, 2011 Skin and subcutaneous tissue surgery 2006 Foot surgery 2009 - 2010 3x Hysterectomies, vaginal 2009 Appendectomy for ruptured appendix with abscess 2012 Gallbladder surgery 2008 Laparotomy 07/2014 Laparoscopic sleeve gastrectomy 02/07/2015 [facility] Brianna Social History Social History Marital [...] sinus rhythm. Normal ECG Records reviewed from [facility] (see media tab): Echocardiogram 11/18/2013: 1. Sinus [...] There is no pericardial effusion.21. No mass [id number]. Po or visualization. Definity was used to opacify the left ventricular chamber and improve deli neation of the endocardial border. Family History Problem Relation Diabetes Father Hypertension Mother Obesity Mother Hypertension Father Heart Disease Father [place] 78 Allergies Allergies Allergen Reactions Advair Diskus [...] is having daily. -I suggested making another residential sales rep appt for next month to discuss possible [...] to plan and will call and/or send Un[employer]inance message if any issues. Start time 314, end time 349. I spent a total of 35 minutes face to face with this patie nt. Over 50% of visit was in counseling. MILAD Rodriguez-RENETTA Bariatric Surgery Nurse Practitioner [facility] | [address]enn[address] | [place], [place] | [address] | in this encounter Plan of Treatment +--------+---------+ + + + | Date | Type | Specialty | Care Team | Description | +--------+---------+ + + + | 01/08/ | Office | Cardiology | Juan Antonio Mclaughlin, | | | 2017 | Visit | | MD Elvin Dee | | | | | | [address] | | | | | | [place], [place] | | | | | | [address] | | | | | | [phone] | | | | | | | [...] | + + + | Blood | [facility] LABOR[facility]ORY SERVICES, SPECIAL IMM + COAG [address] [facility] | | | [place] [address] | + + + + + | Narrative | + + | Alternate forms of testing such as fructosamine should be considered for | | monitoring intermediate school teacher glycemic control in patients with: Increased red [...] | + + + | Blood | [facility], CORE [address] [facility] | | | [place] [address] | + + + + + | [...] | + + + | Blood | [facility] SERVICES, CORE [address] [place] [address] | | | [place] [address] | + + + BASIC METABOLIC SET [...] | >60 | >60 mL/min | | DANISH | | | + + + + | EGFR NON | >60 | >60 mL/min | | -DANISH | | | + + + + [...] | Blood | [facility], CORE [address] [facility] [address] | | | [place] [address] | + + + + + | [...] | | ------ CBC (HEMOGRAM) | | ONLY[[id number]] Abnormal Final | | result Please view [...] characteristics | | | | determined by [employer]. See | | | | Compliance Statement B: | | | | [employer]/CSPerformed by [facility] | | | | [address] [address] | | | | [phone].[employer], Iker Angelo, | | | | Katherin BECKHAM. Director | | + + + + + + + | Specimen | Performing Laboratory | + + + | Blood | [facility] UNIV PTH - INTFC [address] [facility] | | | [place] [address] | + + + VITAMIN D, 25-HYDROXY, SERUM (06/16/2017 4:22 PM) + +-------+ + | Component | Value | Ref Range | + +-------+ + | VITAMIN D 25 HYDROXY | 44.8 | 30 - 80 ng/mL | + +-------+ + + + + | Specimen | Performing Laboratory | + + + | Blood | [facility], CORE [address] [facility] | | | [place] [address] | + + + + + | [...] | + + + | Blood | [facility], CORE [address] [facility] | | | [place] [address] | + + + PTH, SERUM (06/16/2017 4:22 PM) + +-------+ + | Component | Value | Ref Range | + +-------+ + | PTH, SERUM | 52 | 18 - 88 pg/mL | + +-------+ + + + + | Specimen | Performing Laboratory | + + + | Blood | [facility], CORE [address] [facility] | | | [place] [address] | + + + + + | [...]
--- OUTSIDE RECORDS SUMMARY | ~2017-09-13 | XMS | Encounter Summary ---
Demographics + + + | Address | [address] | | | [place] [address] | + + + | Home Phone | | + + + | Preferred Language | Unknown | + + + | Marital Status | Single | + + + | Yarsani Affiliation | NON | + + + | Race | White | + + + | Ethnic Group | Not or | + + + Author + + + | Author | [facility] | + + + | Organization | [facility] | + + + | Address | Unknown | + + + | Phone | Unavailable | + + + Support + + +---------+ + | Name | Relationship | Address | Phone | + + +---------+ + | Jordan Aguirre | ECON | Unknown | Unavailable | + + +---------+ + Care Team Providers + +------+ + | Care Plumber Pipe Fitting Name | Role | Phone | + [...] | | | | | | | [facility] Center | | | | | | | for Health | | | | | | | and Healing | | | | | | | [place], [place] | | | | | | | [address] | | | | | | | Phone: | | | | | | | [phone] | | | | | | | Fax: | | | | | | | [phone] | + +--------+ + + + + Encounter Details +--------+---------+ + + + | Date | Type | Department | Care Team | Description | +--------+---------+ + + + | 06/16/ | Office | Digestive Health | Mihaela Villa, | S/P laparoscopic | | 2018 | Visit | Center at [facility] 6th | [address] | sleeve gastrectomy | | | | Floor [address] | [address] | (Primary Dx) | | | | Ave Mailcode: | [place], [place] | | | | | [facility] Center for | [address] | | | | | Health and Healing | | | | | | [place], [place] | | | | | | [address] | | | | | | [phone] | | | +--------+---------+ + + + [...] Ross DO [address] [place] [address] Documented time of visit: 2:33 to 3:03 (30 minutes ykig-so-inik with patient) Surgery: Sleeve Gastrectomy Date of Surgery: 02/07/15 Subjective: Continues to have an infection in leg. Lost her dad last ANTONIO. Went to the big w eight loss conference in [place] last year. Wanting some options in regards [...] Physical Activity: walking at the gym at [place] with some friends 2x/wk 60 Changes in [...] echo and chest xray findings. 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 Shortness of breath Thyroid disease Food logs: [...] multivitamin & mineral (with iron) supplement, 2/day -6549-4358 mg calcium citrate with vitamin D/day (take in divided doses, not within 2 hour s of multivitamin or iron supplement) -500 mcg/day sublingual B12 supplement (or monthly injections) Continued to reinforce importance of mindful eating. Continue to increase physical activity. Follow up Mihaela cooper RD,[place] Pager# [phone] Phone: [phone] in this encounter Plan of Treatment +--------+---------+ + + + | Date | Type | Specialty | Care Team | Description | +--------+---------+ + + + | 01/08/ | Office | Cardiology | Juan Antonio Mclaughlin, | | | 2017 | Visit | | [address] | | | | | | [address] | | | | | | [place], [place] | | | | | | [address] | | | | | | [phone] | | | | | | | [...]
--- OUTSIDE RECORDS SUMMARY | ~2017-09-13 | XMS | Encounter Summary ---
Demographics + + + | Address | [address] | | | [place] [address] | + + + | Home Phone | | + + + | Preferred Language | Unknown | + + + | Marital Status | Single | + + + | Holiness Affiliation | NON | + + + [...] Team Providers + +------+ + | Care Certified Appliance Service Technician Name | Role | Phone | [...] | | | | | | | [facility] Center | | | | | | | for Health | | | | | | | and Healing | | | | | | | [place], [place] | | | | | | | [address] | | | | | | | Phone: | | | | | | | [phone] | | | | | | | Fax: | | | | | | | [phone] | + +--------+ + + + + Encounter Details +--------+---------+ + + + | Date | Type | Department | Care Team | Description | +--------+---------+ + + + | 06/16/ | Office | Digestive Health | Mihaela Villa, | S/P laparoscopic | | 2018 | Visit | Center at [facility] 6th | [address] | sleeve gastrectomy | | | | Floor [address] | [address] | (Primary Dx) | | | | Ave Mailcode: | [place], [place] | | | | | [facility] Center for | [address] | | | | | Health and Healing | | | | | | [place], [place] | | | | | | [address] | | | | | | [phone] | | | +--------+---------+ + + + [...] Ross DO [address] [place] [address] Documented time of visit: 2:33 to 3:03 (30 minutes zvgv-xy-zahs with patient) Surgery: Sleeve Gastrectomy Date of Surgery: 02/07/15 Subjective: Continues to have an infection in leg. Lost her dad last [place]. Went to the big w eight loss conference in [place] last year. Wanting some options in regards [...] Physical Activity: walking at the gym at [employer] with some friends 2x/wk 60 Changes in [...] echo and chest xray findings. Followed by associate [employer] in [place]. Shortness of breath Thyroid disease Food logs: [...] multivitamin & mineral (with iron) supplement, 2/day -9650-5633 mg calcium citrate with vitamin D/day (take in divided doses, not within 2 hour s of multivitamin or iron supplement) -500 mcg/day sublingual B12 supplement (or monthly injections) Continued to reinforce importance of mindful eating. Continue to increase physical activity. Follow up Mihaela cooper RD,[place] Pager# [phone] Phone: [phone] in this encounter Plan of Treatment +--------+---------+ + + + | Date | Type | Specialty | Care Team | Description | +--------+---------+ + + + | 01/08/ | Office | Cardiology | Juan Antonio Mclaughlin, | | | 2017 | Visit | | [address] | | | | | | [address] | | | | | | [place], [place] | | | | | | [address] | | | | | | [phone] | | | | | | | | +--------+---------+ + + + as of this encounter Procedures + +--------+ + + + | Procedure Name | Priori | Date/Time | Associated Diagnosis | Comments | | | ty | | | | + +--------+ + + + | [place] MNT RE-ASSESSMNT | Routin | 06/17/2017 | [...]
--- OUTSIDE RECORDS SUMMARY | ~2017-09-13 | XMS | Clinical Summary ---
Demographics + + + | Address | [address] | | | [place] [address] | + + + | Home Phone | | + + + | Preferred Language | Unknown | + + + | Marital Status | Single | + + + | Bahai Affiliation | Unknown | + + + | Race | Unknown | + + + | Ethnic Group | Unknown | + + + Author + + + | Author | [facility] | + + + | Organization | [facility] | + + + | Address | Unknown | + + + | Phone | Unavailable | + + + Support + + + + + | Name | Relationship | Address | Phone | + + + + + | Derrick José | ECON | [address] | | | | | [place] | | | | | [address] | | + + + + + Care Team Providers + +------+ + | Care Foundation Relations Manager Name | Role | Phone | + +------+ + | Bassam Ross DO | PP | | + +------+ + Allergies + + + + + + | Active Allergy | Reactions | Severity | Noted | Comments | | | | | Date | | + + + + + + | Amoxicillin | Hives | High | 11/18/19 | | | | | | 14 [...] + + + +---------+------+------+-------+ | | Take 1-2 tablets by | | | | | Activ | | HYDROcodone-acetamin | mouth every 4 (four) | | | | | e | | ophen (NORCO) 5-325 | hours as needed. | | | | | | | MG per tablet | | | | | | | + + + +---------+------+------+-------+ | carvedilol (COREG) | Take 50 mg by mouth | | | | | Activ | | 25 MG tablet | 2 (two) times daily | | | | | e | | | with meals. | | | | | | + + + +---------+------+------+-------+ | estradiol | Take 2 mg by mouth | | | | | Activ | | (ESTRACE) 2 MG | daily. | | | | | e | | tablet | | | | | | | + + + +---------+------+------+-------+ | thyroid (ARMOUR) | Take 60 mg by mouth | | | | | Activ | | 60 MG tablet | every morning before | | | | | e | | | breakfast. | | | | | | + + + +---------+------+------+-------+ | Pramipexole | Take 0.375 mg by | | | | | Activ | | Dihydrochloride | mouth 2 (two) times | | | | | e | | (MIRAPEX ER) 0.375 | daily. | | | | | | | MG TB24 | | | | | | | + + + +---------+------+------+-------+ | Ergocalciferol | Take 50,000 Units by | | | | | Activ | | (VITAMIN D2 PO) | mouth. Thursday and | | | | | e | | | | | | | | | + + + +---------+------+------+-------+ | vilazodone | Take 40 mg by mouth | | | | | Activ | | (VIIBRYD) 40 MG | nightly. | | | | | e | | tablet | | | | | | | + + + +---------+------+------+-------+ | fluticasone | Inhale 2 puffs into | | | | | Activ | | (FLOVENT HFA) 220 | the lungs 2 (two) | | | | | e | | MCG/ACT inhaler | times daily. Rinse | | | | | | | | mouth after use | | | | | | + + + +---------+------+------+-------+ | furosemide (LASIX) | Take 80 mg by mouth | | | | | Activ | | 80 MG tablet | as needed. | | | | | e | + + + +---------+------+------+-------+ | cloNIDine | Take 0.1 mg by mouth | | | | | Activ | | (CATAPRES) 0.1 MG | nightly. | | | | | e | | tablet | | | | | | | + + + +---------+------+------+-------+ | ALPRAZolam (XANAX) | Take 0.5 mg by mouth | | | | | Activ | | 0.5 MG tablet | 3 (three) times | | | | | e | | | daily as needed. | | | | | | + + + +---------+------+------+-------+ | clonazePAM | Take 2 mg by mouth | | | | | Activ | | (KLONOPIN) 2 MG | nightly. | | | | | e | | tablet | | | | | | | + + + +---------+------+------+-------+ | lamotrigine | Take 300 mg by mouth | | | | | Activ | | (LAMICTAL) 200 MG | nightly. | | | | | e | | tablet | | | | | | | + + + +---------+------+------+-------+ | | Take 1 tablet by | | | | | Activ | | [id number] | mouth daily. | | | | | e | | -b12 (CEREFOLIN) | Indications: | | | | | | | 6-1-50-5 MG | Deficiency Disease | | | | | | | TABSIndications: | | | | | | | | Mineral Deficiency | | | | | | | [...] | | | + + + +---------+------+------+-------+ Active Problems + + + | Problem | Noted Date | + + + | CO2 retention | 11/17/2013 | + + + | Essential hypertension, benign | 11/17/2013 | + + + | [...] Due | + + + + | Pneumococcal | 11/18/2013 | | | Polysaccharide | | | [...] | | | + +-------+ +--------+------+ + +---+---+---+ [...] + + + | Blood Pressure | 161/88 | 11/20/2013 11:01 AM PDT | + + + + | Pulse | 63 | 11/20/2013 11:24 AM PDT | + + + + | Temperature | 36.3 C (97.3 F) | 11/20/2013 7:32 AM PDT | + + + + | Respiratory Rate | 20 | 11/20/2013 11:24 AM PDT | + + + + | Oxygen Saturation | 90% | 11/20/2013 11:05 AM PDT | + + + + | Inhaled Oxygen | - | - | | Concentration | | | + + + + | Weight | 197 kg (434 lb 4.9 | 11/20/2013 3:23 AM PDT | | | oz) | | + + + + | Height | 160 cm (5' 2.99") | 11/17/2013 8:05 AM PDT | + + + + | Body Mass Index | 76.95 | 11/20/2013 3:23 AM PDT | + + + + Plan of Treatment Not on file Results Not on filefrom Last 3 Months Insurance + +--------+ +------+-------+ + | Payer | Benefi | Subscriber | Type | Phone | Address | | | t Plan | ID | | | | | | / | | | | | | | Group | | | | | + +--------+ +------+-------+ + | MEDICAID | [place] | xxxxxxxx | | | [address] | | | [place] | | | | [place] | | | [place] | | | | [phone] | | | COMMERCIAL REAL ESTATE [employer] | | | | | + +--------+ [...] Self [birth year] Home: | [address] | | | al/Fam | | 1971 | [phone] | [place] | | | kevin | | | [phone] | [phone] | + +--------+ +--------+ + +
--- OUTSIDE RECORDS SUMMARY | ~2017-09-13 | XMS | Encounter Summary ---
Demographics + + + | Address | [address] | | | [place] [address] | + + + | Home Phone | | + + + | Preferred Language | Unknown | + + + | Marital Status | Single | + + + | Faith Affiliation | [phone] | + + + | Race | Unknown | + + + | Ethnic Group | Unknown | + + + Author + + + | Author | [facility] | | | and [place] | + + + | Organization | [facility] | | | and [place] | + + + | Address | Unknown | + + + | Phone | Unavailable | + + + Support + + + + + | Name | Relationship | Address | Phone | + + + + + | An Carlin | ECON | Unknown | | + + + + + | Jordan Aguirre | ECON | [address] | | | | | [facility] [place] | | | | | [address] | | + + + + + Care Team Providers + +------+ + | Care Consultant Name | Role | Phone | + +------+ + | Bassam Ross DO | PCP | | + +------+ + Reason for Visit + + + | Reason | Comments | + + + | Asthma | 1 mo follow up | + + + | Atrial Fibrillation | | + + + Evaluate & Treat (Routine) + +--------+ + + + + | Status | Reason | Specialty | Diagnoses / | Referred By | Referred To | | | | | Procedures | Contact | Contact | + +--------+ + + + + | Authorized | | Pulmonary | Diagnoses | Cody, | Marbin, | | | | Disease / | Mild | Bassam Mattson DO | MD Adolfo | | | | Pulmonology | persistent | [address] | | | | | asthma, | [address] | [place], [place] | | | | | uncomplicate | Sharri | [place] | | | | | d | [place] [address] | [place] | | | | | Obstructive | Phone: | [phone] Phone: | | | | | sleep apnea | [phone] | [phone] | | | | | (adult) | Fax: | Fax: | | | | | (pediatric) | [phone] | [phone] | | | | | Procedures | | | | | | | F/U APPT | | | | | | | MARBIN | | | | | | | 06/23/17 | | | + +--------+ + + + + Encounter Details +--------+---------+ + + + | Date | Type | Department | Care Team | Description | +--------+---------+ + + + | 07/10/ | Office | [facility] | Adolfo Zazueta, | Restrictive lung | | 2018 | Visit | PULMONARY [address] | disease secondary to | | | | [place], | [place], [place] II | obesity (Primary | | | | [place] [address] | [place], [place] | Dx); Obstructive | | | | [phone] | [address] | sleep apnea; Mild | | | | | | persistent asthma | | | | | | without complication | +--------+---------+ + + + Social [...] + + + + | Pulse | 108 | 07/10/2017 1450 PST | + + + + | Temperature | - | - | + + + + | Respiratory Rate | - | - | + + + + | Oxygen Saturation | 95% | 07/10/20171449 PST | + + + + | Inhaled Oxygen | - | - | | Concentration | | | + + + + | Weight | 190.6 kg (420 lb 3.2 | 07/10/20171449 PST | | | oz) | | + + + + | Height | 157.5 cm (5' 2") | 07/10/20171449 PST | + + + + | Body Mass Index | 76.86 | 07/10/2017 1450 PST | + + + + in this encounter Instructions Patient Instructions - Adolfo Zazueta MD - 07/10/2017 1500 PST Asthma (Adult) Asthma is a disease where the medium and small air passages within the lung go into spasm and restrict the flow of air. Inflammation and swelling of the airways cause further restri ction. During an acute asthma attack, these factors cause difficulty breathing, wheezing, co ugh and chest tightness. An asthma attack can be triggered by many things. Common triggers include infections such a s the common cold, bronchitis, pneumonia. Irritants such as smoke or pollutants in the air, emotional upset, and exercise can also trigger an attack. Inmany adults with asthma, aller gies todust, mold, pollen and animal dander can [...] more than every 4 hours, contact your [facility] provider or seek immediate medical attention. If prescribed an antibiotic or predniso ne, take all of the medicine as prescribed, even if you are feeling better after a few days. Do not smoke. Avoid being exposed to the smoke [...] Also bring a complete list of med ications eventhose not taken for asthma. If you do not already have one, talk to your [facility] provider about developing a personalized "Asthma Action Plan." A pneumococcal (pneumonia)vaccine and [...] turning arizmendi or blue Date Last Reviewed: 05/02/201519997734-6375 [employer]. [address] [place] [address]. All righ ts reserved. This information is not intended as a substitute for professional medical care. Always follow your healthcare professional's instructions. in this encounter Progress Notes Adolfo Zazueta MD - 07/10/2017 1500 PSTFormatting of this note may be different from keily jaeger original. Pulmonary Follow Up 07/10/2017 BRISEIDA Louise Sunshine Darden is a 46 y.o. female patient of Bassam Ross DO here today for follow up of a [facility]. The patient's last visit was on 06/05/16. Since the last visit she feels like [...] asthma have occurred since the last appointment. Following the patient's last clinic appointment or palpitations apparently worsened necessi tating evaluation at [facility]. She was admitted on 06/06/17 and treated for atria l fibrillation with rapid ventricular response with intervenous diltiazem. The patient was discharged on the seventh diltiazem 360 mg a day. Her palpitations have improved. Their controller medication regimen currently consists of Qvar. They do feel like this med ication regimen is effective at controlling their symptoms. Currently Aspen is using their rescue albuterol, Ventolin, 3 times a week. They have albuterol/ipratropium for use in a ne bulizer and use it 0 times a day. Currently Aspen reports being able to walk 200 feet at their own pace on level ground befor e becoming symptomatic. They are not exercising regularly. She does not cough chronically, and does not produce mucous. Aspen does not report symptoms of heartburn or acid reflux. They have not had recent sympto ms of nasal congestion, runny nose or post nasal drip. New triggers since the last appointment include none. Aspen Darden is not smoking cigarettes. The patient have received this year's influenza vaccination. They are up to date with AdverseEvents Pneumovax. Past Medical History Past Medical History: Diagnosis Date Acid reflux disease Allergic rhinitis due to pollen Anemia patent denies Asthma adult diagnosis Central alveolar hypoventilation syndrome COPD (chronic obstructive pulmonary disease) (HCC) patent denies Cyst of ovary Depression with anxiety GROSSMAN (dyspnea on exertion) Endometriosis s/p GLENN BSO Fracture, humeral 2013 Hypertensive disorder Hypothyroidism Insomnia Lymphedema MRSA (methicillin resistant Staphylococcus aureus) septicemia (HCC) left foot source Nephrotic syndrome Previous. Resloved per pt. resport. Obesity ANNABEL (obstructive sleep apnea) ~2003 Wears CPAP, sees Dr. Fairchild Osteoarthritis Periodic limb movement disorder (PLMD) Vitamin D deficiency Allergies: Allergies Allergen Reactions Amoxicillin Hives Clarithromycin Hives Fluticasone-Salmeterol Hives Gabapentin Hives Phendimetrazine Tartrate Palpitations Sulfa Antibiotics Rash Hydrocodone Itching Oxycodone Itching Medications: Current Outpatient Prescriptions: albuterol-ipratropium (DUONEB) 2.5-0.5 mg/3 mL SOLN, Take 3 mLs by nebulization every 4 hours as needed., Disp: 360 mL, Rfl: 1 atorvaSTATin (LIPITOR) 10 mg tablet, Take 10 mg by mouth Daily., Disp: , Rfl: 1 buPROPion (WELLBUTRIN XL) 300 mg 24 hr tablet, take 1 tablet by mouth once daily, Disp : , Rfl: 0 desvenlafaxine (PRISTIQ) 50 mg ER tablet, Take one tablet daily, Disp: , Rfl: 0 dilTIAZem (TIAZAC) 360 MG 24 hr capsule, take 1 capsule by mouth at bedtime, Disp: , R fl: 0 ergocalciferol (VITAMIN D-2) 50,000 units capsule, Take 50,000 Units by mouth Three ti mes a week., Disp: , Rfl: furosemide (LASIX) 40 mg tablet, Take 40 mg by mouth Twice daily as needed for Edema. , Disp: , Rfl: HYDROcodone-acetaminophen (NORCO) 5-325 mg per tablet, take one - two tablets by mouth every six hours if needed for pain, Disp: , Rfl: hydrOXYzine pamoate (VISTARIL) 25 mg capsule, Take 25 mg by mouth 3 times daily as nee ded for Anxiety., Disp: , Rfl: 0 levothyroxine (SYNTHROID, LEVOTHROID) 75 MCG tablet, Take one tablet daily, Disp: , Rf l: 1 metFORMIN (GLUCOPHAGE) 1000 MG tablet, take 1 tablet by mouth twice a day, Disp: , Rfl : 0 omeprazole (PRILOSEC) 20 mg capsule, Take one capsule daily, Disp: , Rfl: 1 pramipexole (MIRAPEX) 1.5 MG tablet, Take 1.5 mg by mouth 2 times daily., Disp: , Rfl: QVAR 80 MCG/ACT inhaler, inhale 2 puffs by mouth twice a day, Disp: 1 Inhaler, Rfl: 3 Uncoded Medication, Lifelong-99;Obstuctie Sleep Apnea, Disp: 1 [...] , Rfl: warfarin (COUMADIN) 5 mg tablet, Take 7.5mg three days per week and 5mg four days per week or as directed, Disp: , Rfl: Immunizations: Immunization History Administered Date(s) Administered INFLUENZA PF 18 Y OR >,TRIVALENT RECOMBINANT 02/21/2013, 03/01/2015 INFLUENZA PF QUAD(PED/ADOL/ADULT),PSKT or VIAL 03/16/2017 INFLUENZA PF TRIVALENT(PED/ADOL/ADULT), PSKT 03/10/2016 PNEUMOCOCCAL POLYSACCHARIDE 23-VALENT (PPSV23) 11/18/2013 Objective Pulse 108 Comment: Atrial Fibrillation | Ht 1.575 m (5' 2") | Wt (!) 190.6 kg (420 lb 3.2 oz) | SpO2 95% Comment: 2 L/M | ? No | BMI 76.86 kg/m Appearance: Alert, cooperative, no distress, appears [...] normal, atraumatic, no cyanosis, clubbing. Trace edema to the mid calf bilaterally . Skin: Warm and dry. Lymph nodes: Cervical and supraclavicular nodes normal. Neurologic: Gait normal. Data: Discharge summary from [facility] dated 06/07/15 was reviewed. Assessment 1. Asthma mild persistent. Appears well controlled with daily Qvar. No evidence of wor sening of the patient's asthma/asthma exacerbation. 2. Obstructive sleep apnea currently treated with CPAP. Patient followed by Dr. Fairchild. 3. Restrictive lung disease secondary to morbid obesity stable symptoms. Weight loss en couraged. 4. Hypoxemia the patient is no longer wearing supplemental oxygen through CPAP. No appa rent assessment of her nocturnal oximetry has occurred with CPAP alone. Plan 1. Nocturnal oximetry via In-home medical on CPAP plus room air. 2. No change in the patient's asthma medication regimen. 3. The interval between pulmonary clinic follow-up appointments will be lengthened to 6 mo nths. CC: Dorian Benitez this encounter Plan of Treatment +--------+---------+ + + + | Date | Type | Specialty | Care Team | Description | +--------+---------+ + + + | 09/22/ | Office | Sleep Medicine | Jermaine Fairchild | | | 2017 | Visit | | MD Jac Sousa | | | | | | [place] | | | | | | [place] [address] | | | | | | [phone] | | | | | | | | +--------+---------+ + + + | 01/15/ | Office | Pulmonology | Adolfo Zazueta, | | | 2017 | Visit | | MD Jac Tong | | | | | | [place] | | | | | | SON [...] not elsewhere classified | + + | Obstructive sleep apnea | + + | Obstructive sleep apnea (adult) (pediatric) | + + | Mild persistent asthma without complication | + + | Unspecified asthma | + +
--- OUTSIDE RECORDS SUMMARY | ~2017-09-13 | XMS | Encounter Summary ---
Demographics + + + | Address | [address] | | | [place] [address] | + + + | Home Phone | | + + + | Preferred Language | Unknown | + + + | Marital Status | Single | + + + | Catholic Affiliation | NON | + + + [...] Team Providers + +------+ + | Care Band Saw Operator Cake Cutting Name | Role | Phone | + [...] Non [facility] | Diagnoses | [facility], | Non-[facility] | | | | Department | S/P | Hansa Hawkins, | Epic Dept | | | | | laparoscopic | AGACNP [address] | | | | | | sleeve | [address] | | | | | | gastrectomy | [place], | | | | | | [place] | [place] | | | | | | deficiency | [phone] | | | | | | Procedures | Phone: | | | | | | CONSULT TO | [phone] | | | | | | NON - [facility] | Fax: | | | | | | PROVIDER | [phone] | | + +--------+ + + + + Encounter Details +--------+ + + + + | Date | Type | Department | Care Team | Description | +--------+ + + + + | 06/25/ | MyChart | Digestive Health | Hansa Hawkins, | RE:Follow-up | | 2018 | Encounter | Center at [facility] [address] | [facility] [address] | | | | | [facility] [address] | [place], [place] | | | | | mil Mailcode: [facility] | [address] | | | | | [place] for [facility] | [phone] | | | | | and [facility] | | | | | | [place], [place] | | | | | | [address] | | | | | | [phone] | | | +--------+ + + + [...] Rd | | | | | | [place], [place] | | | | | | [address] | | | | | | [phone] | | | | | | | | +--------+---------+ + + + as of this encounter Visit Diagnoses + + | Diagnosis | + + | S/P laparoscopic sleeve gastrectomy - Primary | + + | Iron deficiency | + + | Other disorders of iron metabolism | + +"
--- OUTSIDE RECORDS SUMMARY | ~2017-09-13 | XMS | Clinical Summary ---
Demographics + + + | Address | [address] | | | [place] [address] | + + + | Home Phone | | + + + | Preferred Language | Unknown | + + + | Marital Status | Single | + + + | Confucianist Affiliation | 1013 | + + + | Race | Unknown | + + + | Ethnic Group | Unknown | + + + Author + + + | Author | [facility] [place] | | | and [place] | + + + | Organization | [facility] [place] | | | and [place] [...] [address] | | | | | [address] | | | | | [address] | | + + + + + Care Team Providers + +------+ + | Care Remote Encoding Operations Supervisor Name | Role | Phone | + +------+ + | Bassam Ross DO | PP | | + +------+ + Allergies + + + + + + | Active Allergy | Reactions | Severity | Noted | Comments | | | | | Date | | + + + + + + | Amoxicillin | Hives | High | 08/05/20 | | | | | | 14 | | + + + + + + | Clarithromycin | Hives | High | 04//20 | | | | | | 10 | | + + + + + + | Fluticasone-Salmeter | Hives | High | | | | ol | | | | | + + + + + + | Gabapentin | Hives | High | 07/15/20 | | | | | | 14 | | + + + + + + | Hydrocodone | Itching | Low | | | + + + + + + | Oxycodone | Itching | Low | 12/14/19 | | | | | | 14 | | + + + + + + | Phendimetrazine | Palpitations | High | 12/14/19 | | | Tartrate | | | 14 | | + [...] + + + +---------+------+------+-------+ | | take one - two | | | 09/1 | | Activ | | HYDROcodone-acetamin | tablets by mouth | | | 320 | | e | | ophen (NORCO) 5-325 | every six hours if | | | 12 | | | | mg per tablet | needed for pain | | | | | | + + + +---------+------+------+-------+ | UNCODED | Diagnosis: | 1 | 0 | 06/0 | | Activ | | MEDICATIONIndication | [...] 40 mg by mouth | | | 09/ | | Activ | | 40 mg tablet | Twice daily as | | | 320 | | e | | | needed for Edema. | | | 12 | | | + + + +---------+------+------+-------+ | UNCODED | Wear when sleeping. | 1 | 0 | 12/ | | Activ | | MEDICATIONIndication | | Device | | 07/21 | | e | | s: ANNABEL (obstructive | | | | 13 | | | | sleep apnea) | | | | | | | + + + +---------+------+------+-------+ | UNCODED MEDICATION | Convert CPAP to | 1 | 0 | 02/ | | Activ | | | purchase for ANNABEL | Device | | 01/18 | | e | | | (327.23) | | | 14 | | | + + + +---------+------+------+-------+ | Uncoded | Lifelong-99;Obstucti | 1 | 0 | 04/1 | | Activ | | MedicationIndication | e Sleep Apnea | Device | | 11/18 | | e | | s: Obstructive sleep | | | | 14 | | | | apnea (adult) | | | | | | | | (pediatric) | | | | | | | + + + +---------+------+------+-------+ | | Take 3 mLs by | 360 mL | 1 | 07/2 | | Activ | | albuterol-ipratropiu | nebulization every 4 | | | 9/20 | | e | | m (DUONEB) 2.5-0.5 | hours as needed. | | | 14 | | | | mg/3 mL | | | | | | | | SOLNIndications: | | | | | | | | Dyspnea | | | | | | | + + + +---------+------+------+-------+ | levothyroxine | Take one tablet | | 1 | 04/ | | Activ | | (SYNTHROID, | daily | | | 6 | | e | | LEVOTHROID) 75 MCG | | | | 16 | | | | tablet | | | | | | | + + + +---------+------+------+-------+ | omeprazole | Take one capsule | | 1 | 11/0 | | Activ | | (PRILOSEC) 20 mg | daily | | | 820 | | e | | capsule | | | | 16 | | | + + + +---------+------+------+-------+ | VENTOLIN HFA 108 | Inhale 2 puffs into | | | | | Activ | | (90 [...] 10 mg | Daily. | | | 9/20 | | e | | tablet | | | | 17 | | | + + + +---------+------+------+-------+ | desvenlafaxine | Take one tablet | | 0 | 01/0 | | Activ | | (PRISTIQ) 50 mg ER | daily | | | 2/20 | | e | | tablet | | | | 18 | | | + + + +---------+------+------+-------+ | hydrOXYzine | Take 25 mg by mouth | | 0 | 12/2 | | Activ | | pamoate (VISTARIL) | 3 times daily as | | | 6/20 | | e | | 25 mg capsule | needed for Anxiety. | | | 17 | | | [...] | mouth once daily | | | 7/20 | | e | | mg 24 hr tablet | | | | 18 | | | + + + +---------+------+------+-------+ | dilTIAZem (TIAZAC) | take 1 capsule by | | 0 | 02/0 | | Activ | | 360 MG 24 hr | mouth at bedtime | | | 11/18 | | e | | capsule | | | | 18 | | | + + + +---------+------+------+-------+ | metFORMIN | take 1 tablet by | | 0 | 02/0 | | Activ | | (GLUCOPHAGE) 1000 MG | mouth twice a day | | | 12/18 | | e | | tablet | | | | 18 | | | + + + +---------+------+------+-------+ | warfarin | 10 mg. Take 7.5mg | | | | | Activ | [...] | | | | Activ | | (VENTOLIN HFA) 90 | the lungs every 4 | | | | | e | | mcg/puff inhaler | hours as needed for | | | | | | | | Shortness of Breath. | | | | | | + + + +---------+------+------+-------+ | beclomethasone HFA | Inhale 2 puffs into | 1 | 3 | 07/30 | | Activ | | (FÉLIX SAGE) 80 | the lungs 2 times | Inhaler | | 10/18 | | e | | mcg/puff inhaler | daily. | | | 18 | | | + + + +---------+------+------+-------+ Active Problems + + + | Problem | Noted Date | + + + | Restrictive lung disease secondary to obesity | 06/23/2016 | + + + | Mild persistent asthma without complication | 10/11/2015 | + + + | MORBID OBESITY | 10/02/2011 | + + + | POSTTRAUMATIC STRESS DISORDER | 10/02/2011 | + + + | OBSTRUCTIVE SLEEP [...] | Atrial fibrillation with rapid ventricular response (HCC) | 06/05/19 | | | | 18 | 8 | + + + + | Restrictive lung disease secondary to obesity | 01/27/20 | | | | 14 | 6 | + + + + | Dyspnea | 12/28/19 | | | | 14 | 8 | + + + + | Hypoxemia | 12/28/19 | | | | 14 | 6 | + + + + | COPD (chronic obstructive pulmonary disease) (HCC) | 12/14/19 | | | | 14 | 6 | + + + + | ANNABEL (obstructive sleep apnea) | | | | | | 6 | + + + + Encounters +--------+ + + + + | Date | Type | Specialty | Care Team | Description | +--------+ + + + + | 08/19/ | Office | | Jermaine Fairchild | Obesity | | 2017 | Visit | | MD Lars | hypoventilation | | | | | | syndrome (HCC) | | | | | | (Primary Dx); ANNABEL | | | | | | (obstructive sleep | | | | | | apnea); Morbid | | | | | | obesity (HCC) | +--------+ + + + + | 08/13/ | Orders Only | | Adolfo Zazueta, | | | 2017 | | | MD | | +--------+ + + + + | 07/10/ | Office | | Adolfo Zazueta, | Restrictive lung | | 2018 | Visit | | | disease secondary to | | | | | | obesity (Primary | | | | | | Dx); Obstructive | | | | | | sleep apnea; Mild | | | | | | persistent asthma | | | | | | without complication | +--------+ + + + + | 06/25/ | Telephone | | Lexii Arora | Other | | 2018 | | | K, Medical | | | | | | Orchestra Director | | +--------+ + + + + from Last 3 Months Immunizations + + + + | Name | Dates Previously Given | Next Due | + + + + | INFLUENZA PF 18 Y OR | 03/01/2015, 02/21/2013 | | | >,TRIVALENT | | | | RECOMBINANT | | | + + + + | INFLUENZA PF | 03/16/2017 | | | QUAD(PED/ADOL/ADULT) | | | | ,PSKT or VIAL | | | + + + + | INFLUENZA PF | 03/10/2016 | | | TRIVALENT(PED/ADOL/A | | | | DULT), PSKT | | | + + + + | PNEUMOCOCCAL | 11/18/2013 | | | POLYSACCHARIDE | | | [...] + | Blood Pressure | 140/90 | 08/19/20179 PDT | + + + + | Pulse | 100 | 08/19/20179 PDT | + + + + | Temperature | 36.9 C (98.4 F) | 12/22/20143 PDT | + + + + | Respiratory Rate | 18 | 08/19/20171348 PDT | + + + + | Oxygen Saturation | 99% | 08/19/20171348 PDT | + + + + | Inhaled Oxygen | - | - | | Concentration | | | + + + + | Weight | 186.2 kg (410 lb 7.9 | 08/19/20171348 PDT | | | oz) | | + + + + | Height | 157.5 cm (5' 2") | 07/10/20171449 PST | + + + + | Body Mass Index | 75.08 | 08/19/20171348 PDT | + + + + Plan of Treatment +--------+---------+ + + + | Date | Type | Specialty | Care Team | Description | +--------+---------+ + + + | 09/22/ | Office | | Jermaine Fairchild | | | 2017 | Visit | | MD Jac Sousa | | | | | | [place] | | | | | | [place] [address] | | | | | | [phone] | | | | | | | | +--------+---------+ + + + | 01/15/ | Office | | Adolfo Zazueta, | | | 2017 | Visit | | MD Jac Tong | | | | | | [place], Level II | | | | | | [place] | | | | | | [address] | | | | | | | | +--------+---------+ + + + + + + + + | Health Maintenance | Due Date | Last Done | Comments | + + + + + | Vaccine: | | | | | Dtap/Tdap/Td (1 - | 8 | | | | Tdap) | | | | + + + + + | Vaccine: | Completed | 11/18/2013 | | | Pneumococcal 19-64 | | | | | (PPSV23 only) Medium | | | | | Risk | | | | + + + + + | Vaccine: Influenza | Completed | 03/16/2017, 03/10/2016, | | | | | 03/01/2015, Additional history | | | | | exists | | + + + + + Results Not on filefrom Last 3 Months Insurance + +--------+ +--------+ +---------+ | Payer | Benefi | Subscriber | Type | Phone | Address | | | t Plan | ID | | | | | | / | | | | | | | Group | | | | | + +--------+ +--------+ +---------+ | [employer] | MODA | [id number] | Medica | [phone]- | | | MEDICAID HMO | HEALTH | | id | [id number] | | | | [place] | | | | | | | [place] | | | | | + +--------+ +--------+ +---------+ + +--------+ +--------+ + + | Guarantor Name | Accoun | Relation to | Date | Phone | Billing Address | | | t Type | Patient | of | | | | | | | | | | + +--------+ +--------+ + + | DEANN JOSÉ | Person | Self [birth year] | Home: | [address] | | | al/Layo | | 1971 | [phone] | [place] [address] | | | kevin | | | [phone] | | + +--------+ +--------+ + +
--- OUTSIDE RECORDS SUMMARY | ~2017-09-13 | XMS | Encounter Summary ---
Demographics + + + | Address | [address] | | | [place] [address] | + + + | Home Phone | | + + + | Preferred Language | Unknown | + + + | Marital Status | Single | + + + | Mormonism Affiliation | 1013 | + + + | Race | Unknown | + + + | Ethnic Group | Unknown | + + + Author + + + | Author | [facility] [place] | | | and [place] | + + + | Organization | [facility] [place] | | | and [place] | [...] [place] | | | | | [address] | | + + + + + Care Team Providers + +------+ + | Care Recycling Sorter Name | Role | Phone | + [...] + + | 06/25/ | Telephone | [facility] [place] | Lexii Arora | Other | | 2018 | | PULMONARY [address] | K, Medical | | | | | [place], | [employer] | | | | | [place] [address] | | | | | | [phone] | | | +--------+ + + + [...] | | | | | [place] [address] | | | | | | [phone] | | | | | | | [...]
--- OUTSIDE RECORDS SUMMARY | ~2017-09-13 | XMS | Encounter Summary ---
Demographics + + + | Address | [address] | | | [place] [address] | + + + | Home Phone [...] Team Providers + +------+ + | Care Pickling Solution Maker Name | Role | Phone | + +------+ + | Bassam Ross DO | PCP | | + +------+ + Encounter Details +--------+------+ + + + | Date | Type | Department | Care Team | Description | +--------+------+ + + + | 06/16/ | Lab | Laboratory at [facility] | | Essential | | 2017 | | 3rd Floor [address] | | hypertension, | | | | [address], | | benign; Sleep apnea, | | | | [place] [address] | | unspecified type; | | | | [phone] | | Gastroesophageal | | | | [...] [address] | | | | | | [place], [place] | | | | | | [address] | | | | | | [phone] | | | | | | | [...] | + + + | Blood | [facility] [address] [place] [address] | | | [place] [address] | + + + HEMOGLOBIN A1C, BLOOD [...] | + + + | Blood | [facility] SPECIAL [facility] + [facility] [address] | | | [place] [address] | + + + + + | Narrative | + + | Alternate forms of testing such as fructosamine should be considered for | | monitoring penitentiary glycemic control in patients with: Increased red [...] | + + + | Blood | [facility] CORE [address] | | | [place] [address] | + + + + + | [...] | + + + | Blood | [facility] CORE [address] | | | [place] [address] | + + + BASIC METABOLIC SET [...] | >60 | >60 mL/min | | MAURITIAN | | | + + + + | EGFR NON | >60 | >60 mL/min | | -MAURITIAN | | | + + + + [...] | + + + | Blood | [facility] [address] | | | [place] [address] | + + + + + | [...] | | ------ CBC (HEMOGRAM) | | ONLY[[id number]] Abnormal Final | | result Please view [...] characteristics | | | | determined by [employer]. See | | | | Compliance Statement B: | | | | WorkMeIn/CSPerformed by [employer] | | | | [facility] [address] | | | | [phone].[employer], Iker Angelo, | | | | , Lab. Director | | + + + + + + + | Specimen | Performing Laboratory | + + + | Blood | [facility] [address] | | | [place] [address] | + + + VITAMIN D, 25-HYDROXY, SERUM (06/16/2017 4:22 PM) + +-------+ + | Component | Value | Ref Range | + +-------+ + | VITAMIN D 25 HYDROXY | 44.8 | 30 - 80 ng/mL | + +-------+ + + + + | Specimen | Performing Laboratory | + + + | Blood | [facility] CORE [address] | | | [place] [address] | + + + + + | [...] | + + + | Blood | [facility], CORE [address] [place] [address] | | | [place] [address] | + + + PTH, SERUM (06/16/2017 4:22 PM) + +-------+ + | Component | Value | Ref Range | + +-------+ + | PTH, SERUM | 52 | 18 - 88 pg/mL | + +-------+ + + + + | Specimen | Performing Laboratory | + + + | Blood | [facility], CORE [address] | | | [place] [address] | + + + + + | [...]
--- OUTSIDE RECORDS SUMMARY | ~2017-09-13 | XMS | Encounter Summary ---
Demographics + + + | Address | [address] | | | [place] [address] | + + + | Home Phone [...] Team Providers + +------+ + | Care Waterfront Director Name | Role | Phone | [...] | Non [facility] | Diagnoses | [facility], | Non-[facility] | | | | Department | S/P | Hansa Hawkins, | Epic Dept | | | | | laparoscopic | AGACNP [address] | | | | | | sleeve | [address] | | | | | | gastrectomy | [place], | | | | | | [place] | [place] | | | | | | deficiency | [address] | | | | | | Procedures | Phone: | | | | | | CONSULT TO | [phone] | | | | | | NON - [facility] | Fax: | | | | | | PROVIDER | [phone] | | + +--------+ + + + + Encounter Details +--------+ + + + + | Date | Type | Department | Care Team | Description | +--------+ + + + + | 06/25/ | MyChart | Digestive Health | Hansa Hawkins, | RE:Follow-up | | 2018 | Encounter | Center at [facility] | [facility] [address] | | | | | [facility] [address] | [place], [place] | | | | | mil Mailcode: [facility] | [address] | | | | | [facility] | [phone] | | | | | and [facility] | | | | | | [place], [place] | | | | | | [address] | | | | | | [phone] | | | +--------+ + + + [...] Rd | | | | | | [place], [place] | | | | | | [address] | | | | | | [phone] | | | | | | | | +--------+---------+ + + + as of this encounter Visit Diagnoses + + | Diagnosis | + + | S/P laparoscopic sleeve gastrectomy - Primary | + + | Iron deficiency | + + | Other disorders of iron metabolism | + +"
--- OUTSIDE RECORDS SUMMARY | ~2017-09-13 | XMS | Encounter Summary ---
Demographics + + + | Address | [address] | | | [place] [address] | + + + | Home Phone | | + + + | Preferred Language | Unknown | + + + | Marital Status | Single | + + + | Oriental Orthodox Affiliation | 1013 | + + + | Race | Unknown | + + + | Ethnic Group | Unknown | + + + Author + + + | Author | [facility] [place] | | | and [place] | + + + | Organization | [facility] [place] | | | and [place] [...] [place] | | | | | [address] | | + + + + + Care Team Providers + +------+ + | Care Mysql Database Administrator Name | Role | Phone | + +------+ + | Bassam Ross DO | PCP | | + +------+ + Encounter Details +--------+ + + + + | Date | Type | Department | Care Team | Description | +--------+ + + + + | 08/13/ | Orders Only | [facility] [place] | Adolfo Zazueta, | | | 2017 | | PULMONARY [address] | MD [address] | | | | | [place], | [place], [place] | | | | | [place] [address] | [place], [place] | | | | | [phone] | [address] | | | | | | | [...] | | | | | [place] [address] | | | | | | [phone] | | | | | | | [...]
--- OUTSIDE RECORDS SUMMARY | ~2017-09-13 | XMS | Encounter Summary ---
Demographics + + + | Address | [address] | | | [place] [address] | + + + | Home Phone | | + + + | Preferred Language | Unknown | + + + | Marital Status | Single | + + + | Baptist Affiliation | 1013 | + + + | Race | Unknown | + + + | Ethnic Group | Unknown | + + + Author + + + | Author | [facility] [place] | | | and [place] | + + + | Organization | [facility] [place] | | | and [place] [...] [place] | | | | | [address] | | + + + + + Care Team Providers + +------+ + | Care It Desktop Support Specialist Name | Role | Phone | [...] | | | | [place], | [place] | | | | | [place] [address] | | | | | | [phone] | | | +--------+ + + + [...] | | | | | [place] [address] | | | | | | [phone] | | | | | | | [...]
--- OUTSIDE RECORDS SUMMARY | ~2017-09-13 | XMS | Encounter Summary ---
Demographics + + + | Address | [address] | | | [place] [address] | + + + | Home Phone | | + + + | Preferred Language | Unknown | + + + | Marital Status | Single | + + + | Roman Catholic Affiliation | 1013 | + + + | Race | Unknown | + + + | Ethnic Group | Unknown | + + + Author + + + | Author | and [facility] [place] | | | and [place] | + + + | Organization | and [facility] [place] | | | and [place] [...] [address] | | | | | [address] | | | | | [address] | | + + + + + Care Team Providers + +------+ + | Care Advisory Intern Name | Role | Phone | + +------+ + | Bassam Ross DO | PCP | | + +------+ + Reason for Referral Evaluate & Treat (Routine) + + + + + + + | Status | Reason | Specialty | Diagnoses / | Referred By | Referred To | | | | | Procedures | Contact | Contact | + + + + + + + | Pending | Specialty | Sleep | Diagnoses | Gurinder, | [facility] | | Review | Services | Medicine | Obesity | Jermaine Rodriguez | [place] [address] | | | Required | | hypoventilat | MD Lars [address] | [place] | | | | | ion syndrome | [place] | [place], | | | | | (HCC) ANNABEL | [facility] | [place] [address] | | | | | (obstructive | [place], [place] | Phone: | | | | | sleep | [address] | [phone] | | | | | apnea) | Phone: | Fax: | | | | | Procedures | [phone] | [phone] | | | | | [place] POLYSOM | Fax: | | | | | | 6/>YRS SLEEP | [phone] | | | | | | W/CPAP 4/> | | | | | | | ADDL BECKY | | | | | | | ATTND PAP | | | | | | | (09/21 9pm) | | | | | | | f/u next day | | | | | | | per Gurinder | | | + + + + + + + Reason for Visit + + + | Reason | Comments | + + + | CPAP Follow Up | | + + + Encounter Details +--------+---------+ + + + | Date | Type | Department | Care Team | Description | +--------+---------+ + + + | 08/19/ | Office | [facility] | Jermaine Fairchild | Obesity | | 2018 | Visit | SLEEP DISORDER [address] | MD Lars [address] | hypoventilation | | | | [address] [place] [facility] | [place] [facility] | syndrome (HCC) | | | | [place] [address] | [place] [address] | (Primary Dx); ANNABEL | | | | [phone] | [phone] | (obstructive sleep | | | | [...] | Blood Pressure | 140/90 | 08/19/2017 1349 PDT | + + + + | Pulse | 100 | 08/19/2017 1349 PDT | + + + + | [...] 08/19/20171348 PDT | + + + + in this encounter Progress Notes Jermaine Fairchild Jr., MD - 08/19/2017 1400 PDTFormatting of this note may be different from the original. [facility] [place] [address] Ref: Bassam Ross DO CC: Chief Complaint Patient presents with CPAP Follow Up History of the Present Illness: I first saw this patient in consultation on March 16 because of possible obstructive apnea, restless leg [...] In 2010 which may have damaged th mil gastric banding. Polysomnography performed in September 20, [...] 371 pounds. She was recently seen at [facility] in June where she was told that no further bariatric surgery could be done. She recently has been hospitalized at [facility] for the last 1-2 weeks with [...] recently when she left her CPAP in [place] and she didn't wear it. 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 The score of 16 on the Insomnia Severity Scale suggests that the patient has severe dissatisfaction with the quality of sleep. The score of 20 on t he Ernandez Depression Inventory is consistent with moderate depression (no suicidal thoughts). The score of 11 on the Ernandez Anxiety Inventory suggests minimal to mild recognized anxiety. T he SF36v2 suggests moderately severe self assessed impairment [...] arterial blood gases on oxygen 2 L/min prim arily to see what her pCO2 levels are. [...] Parts of this note were dictated using NextPage voice recognition software. Occasional wrong - word or sound-alike substitutions may have occurred due to the inherent limitations of voi ce recognition software. Please read the chart carefully and recognize, using context, tessa e these substitutions have occurred. Jermaine Fairchild Jr., MD - 08/19/2017 1400 PDTFormatting of this note may be different from the original. 08/19/17 1300 Ernandez Depression Inventory-II Depression Score 20 - Moderate depression Insomnia Severity Index Insomnia Severity Index 16 [place] Sleepiness Scale Sitting and reading 3 Watching [...] 28.31 MH 40.4 PCS 32.62 MCS 32.51 in this encounter Plan of Treatment +--------+---------+ + + + | Date | Type | Specialty | Care Team | Description | +--------+---------+ + + + | 09/22/ | Office | Sleep Medicine | Jermaine Fairchild | | | 2017 | Visit | | MD Jac Sousa | | | | | | [place] | | | | | | [place] [address] | | | | | | [phone] | | | | | | | | +--------+---------+ + + + | 01/15/ | Office | Pulmonology | Adolfo Zazueta, | | | 2017 | Visit | | MD Jac Tong | | | | | | [place], Level II | | | | | | [place] | | | | | | [id number] | | | | | | | | +--------+---------+ + + + + +--------+ + + | Name | Priori | Associated Diagnoses | Order Schedule | | | ty | | | + +--------+ + + | * [facility] - AMB Referral | Routin | Obesity | Ordered: 08/19/2017 | | | e | hypoventilation | | | | | syndrome (HCC) ANNABEL | | | | | (obstructive sleep | | | | | apnea) | | + +--------+ + + as of this encounter Visit Diagnoses + + | Diagnosis | + + | Obesity hypoventilation syndrome (HCC) - Primary | + + | Obesity hypoventilation syndrome | + + | ANNABEL (obstructive sleep apnea) | + + | Obstructive sleep apnea (adult) (pediatric) | + + | Morbid obesity (HCC) | + + | Morbid obesity | + +"
--- OUTSIDE RECORDS SUMMARY | ~2017-09-13 | XMS | Encounter Summary ---
Demographics + + + | Address | [address] | | | [place] [address] | + + + | Home Phone [...] + + + | Author | [facility] [place] | | | and Ozzyana | + + + | Organization | [facility] [place] | | | and [...] [address] | | | | | [facility] | | | | | [address] | | + + + + + Care Team Providers + +------+ + | Care Diffusion Operator Name | Role | Phone | [...] Medicine | Obesity | Jermaine Rodriguez | Dameron [address] | | | Required | | hypoventilat | MD Lars [address] | [place] | | | | | ion syndrome | [place] | [place], | | | | | (HCC) ANNABEL | [facility] | [place] [address] | | | | | (obstructive | [place], [place] | Phone: | | | | | sleep | [address] | [phone] | | | | | apnea) | Phone: | Fax: | | | | | Procedures | [phone] | [phone] | | | | | NE POLYSOM | Fax: | | | | | | 6/>YRS SLEEP | [phone] | | | | | | W/CPAP [...] + + | 08/19/ | Office | [facility] | Jermaine Fairchild | Obesity | | 2018 | Visit | SLEEP DISORDER [address] | MD Lars [address] | hypoventilation | | | | [place] [facility] | [place] [facility] | syndrome (HCC) | | | | [place] [address] | [place] [address] | (Primary Dx); ANNABEL | | | | [phone] | [phone] | (obstructive sleep | | | | [...] may be different from the original. [facility] [place] [address] Ref: Bassam Ross DO CC: Chief Complaint [...] 371 pounds. She was recently seen at [facility] in June where she was told that no further bariatric surgery could be done. She recently has been hospitalized at [facility] for the last 1-2 weeks with pneumonia [...] recently when she left her CPAP in [place] and she didn't wear it. Recently she [...] Review: The score of 16 on the Wales Sleepiness scale suggests severe maryam gnized excessive [...] Parts of this note were dictated using [email or web address] voice recognition software. Occasional wrong - word [...] Insomnia Severity Index Insomnia Severity Index 16 Wales Sleepiness Scale Sitting and reading 3 Watching [...] | | | | | [place] [address] | | | | | | [phone] | | | | | | | | +--------+---------+ + + + | 01/15/ | Office | Pulmonology | Adolfo Zazueta, | | | 2017 | Visit | | MD Jac Tong | | | | | | [place], Level II | | | | | | [place] | | | | | | [id number] | | | | | | | | +--------+---------+ + + + + +--------+ + + | Name | Priori | Associated Diagnoses | Order Schedule | | | ty | | | + +--------+ + + | * [facility] - AMB Referral | Routin [...]
--- OUTSIDE RECORDS SUMMARY | ~2017-09-13 | XMS | Encounter Summary ---
Demographics + + + | Address | [address] | | | [place] [address] | + + + | Home Phone | | + + + | Preferred Language | Unknown | + + + | Marital Status | Single | + + + | Baptism Affiliation | 1013 | + + + | Race | Unknown | + + + | Ethnic Group | Unknown | + + + Author + + + | Author | [facility] [place] | | | and Ozzyana | + + + | Organization | [facility] [place] | | | and [place] | [...] [address] | | | | | [facility] | | | | | [address] | | + + + + + Care Team Providers + +------+ + | Care Director Voice Name | Role | Phone | + [...] | | asthma, | [address] | [place], Level | | | | | uncomplicate | Sharri | [place] | | | | | d | [place] [address] | [place] | | | | | Obstructive | Phone: | [address] Phone: | | | | | sleep apnea | [phone] | [phone] | | | | | (adult) | Fax: | Fax: | | | | | (pediatric) | [phone] | [phone] | | | | | Procedures | [...] + + | 07/10/ | Office | [facility] | Adolfo Zazueta, | Restrictive lung | | 2018 | Visit | PULMONARY [address] | [address] | disease secondary to | | | | [place], | [place], Level II | obesity ([place] | | | | [place] [address] | [place], [place] | Dx); Obstructive | | | | [phone] | [address] | sleep apnea; Mild | | | [...] more than every 4 hours, contact your [facility] provider or seek immediate medical attention. [...] not already have one, talk to your [facility] provider about developing a personalized "Asthma [...] turning arizmendi or blue Date Last Reviewed: 05/02/201519994160-2330 [employer] [place] [address]. All righ ts reserved. This information is [...] for follow up of a [facility]. The patient's last visit was [...] palpitations apparently worsened necessi tating evaluation at [facility]. She was admitted on 06/06/17 and [...] vaccination. They are up to date with Zadego Pneumovax. Past Medical History Past Medical History: [...] Neurologic: Gait normal. Data: Discharge summary from [facility] dated 06/07/15 was reviewed. Assessment 1. [...] | | | | | [place] [address] | | | | | | [phone] | | | | | | | [...]
--- OUTSIDE RECORDS SUMMARY | ~2017-09-13 | XMS | Encounter Summary ---
Demographics + + + | Address | [address] | | | [place] [address] | + + + | Home Phone [...] Author + + + | Author | [facility] | + + + | Organization | [facility] | + + + | Address | Unknown | + + + | Phone | Unavailable | + + + Support + + +---------+ + | Name | Relationship | Address | Phone | + + +---------+ + | Jordan Aguirre | ECON | Unknown | Unavailable | + + +---------+ + Care Team Providers + +------+ + | Care Manufacturing Clerk Name | Role | Phone | + +------+ + | Bassam Ross DO | PCP | | + +------+ + Encounter Details +--------+------+ + + + | Date | Type | Department | Care Team | Description | +--------+------+ + + + | 06/16/ | Lab | Laboratory at [facility] | | Essential | | 2017 | | 3rd Floor [address] | | hypertension, | | | | [address], | | benign; Sleep apnea, | | | | [place] [address] | | unspecified type; | | | | [phone] | | Gastroesophageal | | | | [...] [address] | | | | | | [place], [place] | | | | | | [address] | | | | | | [phone] | | | | | | | [...] | + + + | Blood | [facility] LABORATORY [facility] [address] [place] [address] | | | [place] [address] | + + + HEMOGLOBIN A1C, BLOOD [...] | + + + | Blood | [facility] LABORATORY SERVICES, SPECIAL IMM + [facility] [address] | | | [place] [address] | + + + + + | [...] | + + + | Blood | [facility] LABORATORY SERVICES, CORE [address] | | | [place] [address] | + + + + + | [...] | + + + | Blood | [facility] LABORATORY SERVICES, CORE [address] [facility] | | | [place] [address] | + + + BASIC METABOLIC SET [...] | >60 | >60 mL/min | | BOLIVIAN | | | + + + + | EGFR NON | >60 | >60 mL/min | | -BOLIVIAN | | | + + + + [...] | + + + | Blood | [facility] LABORATORY SERVICES, CORE [address] | | | [place] [address] | + + + + + | [...] | | ------ CBC (HEMOGRAM) | | ONLY[[id number]] Abnormal Final | | result Please view [...] characteristics | | | | determined by [employer]. See | | | | Compliance Statement B: | | | | IMT/CSPerformed by [employer] | | | | [facility],[place] [address] | | | | [phone].IMT, Iker Angelo, | | | | , Lab. Director | | + + + + + + + | Specimen | Performing Laboratory | + + + | Blood | [facility] UN[facility]TH - INTFC [address] | | | [place] [address] | + + + VITAMIN D, 25-HYDROXY, SERUM (06/16/2017 4:22 PM) + +-------+ + | Component | Value | Ref Range | + +-------+ + | VITAMIN D 25 HYDROXY | 44.8 | 30 - 80 ng/mL | + +-------+ + + + + | Specimen | Performing Laboratory | + + + | Blood | [facility], CORE [address] | | | [place] [address] | + + + + + | [...] | + + + | Blood | [facility] SERVICES, CORE [address] [place] [address] | | | [place] [address] | + + + PTH, SERUM (06/16/2017 4:22 PM) + +-------+ + | Component | Value | Ref Range | + +-------+ + | PTH, SERUM | 52 | 18 - 88 pg/mL | + +-------+ + + + + | Specimen | Performing Laboratory | + + + | Blood | [facility], CORE [address] | | | [place] [address] | + + + + + | [...]
--- OUTSIDE RECORDS SUMMARY | ~2017-09-13 | XMS | Clinical Summary ---
Demographics + + + | Address | [address] | | | [place] [address] | + + + | Home Phone | | + + + | Preferred Language | Unknown | + + + | Marital Status | Single | + + + | Adventism Affiliation | Unknown | + + + | Race | Unknown | + + + | Ethnic Group | Unknown | + + + Author + + + | Author | [facility] | + + + | Organization | [facility] | + + + | Address | Unknown | + + + | Phone | Unavailable | + + + Support + + + + + | Name | Relationship | Address | Phone | + + + + + | Derrick José | ECON | [address] | | | | | [place] | | | | | [address] | | + + + + + Care Team Providers + +------+ + | Care Hot End Operator Name | Role | Phone | [...] | | | | Activ | | [id number] | mouth daily. | | | | [...] | | [place] | | | | [address] | | | REIMBURSEMENT LIAISON | | | | | + +--------+ [...] Self | [birth year] | Home: | [address] | | | al/Fam | | 1971 | [phone] | [place] | | | kevin | | | [address] | [address] | + +--------+ +--------+ + +
--- OUTSIDE RECORDS SUMMARY | ~2017-09-13 | XMS | Clinical Summary ---
Demographics + + + | Address | [address] | | | [place] [address] | + + + | Home Phone [...] Team Providers + +------+ + | Care Rag Production Worker Name | Role | Phone | + +------+ + | Bassam Ross DO | PP | | + +------+ + Source Comments SHERIE is fully live on both [facility] Ambulatory and EpicCare InPatient.[facility] Allergies + + + + + + [...] 60.0-69.9, adult ([facility]) | 02/25/2016 | + + + | [...] | | | | | | adult ([facility]); | | | | | | Diabetes mellitus | | | | | | type 2, | | | | | | diet-controlled | | | | | | ([facility]) | +--------+ + + + + | 06/16/ | Office | | Hasna Hawkins, | S/P laparoscopic | | 2017 [...] | | | | | | adult ([facility]); | | | | | | Diabetes [...] | | 2018 | Visit | | [address] | | | | | | [place] | | | | | | [place], [place] | | | | | | [address] | | | | | | [phone] | | | | | | | | +--------+---------+ + + + + + + + + | Health Maintenance | Due Date | Last Done | Comments | + + + + + | INFLUENZA VACCINE | | 03/16/2017, 03/10/2016, | | | (FLU SHOT) | 8 | 02/28/2016, Additional history | [...] | | | | | | | /[address] | | | | | | | | 329 | + +------+--------+ +--------+--------+--------+ | Dion Velamplanted: Qty: | | N/A: | | | 08/29/ | 12BSGE | | 2 on 02/07/2015 by Brianna | | Abdome | | | 2017 | [id number] / | | Dori Ferris MD | | n | | | | | | | | | | | | /[address] | | | | | | | | 327 | + +------+--------+ +--------+--------+--------+ Procedures + +--------+ + + + | Procedure Name | Priori | Date/Time | Associated Diagnosis | Comments | | | ty | | | | + +--------+ + + + | NV MNT RE-ASSESSMNT | Routin | 06/17/2017 | [...] | + + + | Blood | [facility], CORE [address] [place] [address] | | | [place] [address] | + + + VITAMIN B1, WHOLE [...] characteristics | | | | determined by [employer]. See | | | | Compliance Statement B: | | | | [employer]/CSPerformed by [employer] | | | | [facility] [place] [address] | | | | [phone].[employer], Iker Angelo, | | | | , Lab. Director | | + + + + + + + | Specimen | Performing Laboratory | + + + | Blood | [facility] UN[facility] - INTFC [address] [facility] | | | [place] [address] | + + + VITAMIN D, 25-HYDROXY, SERUM (06/16/2017 4:22 PM) + +-------+ + | Component | Value | Ref Range | + +-------+ + | VITAMIN D 25 HYDROXY | 44.8 | 30 - 80 ng/mL | + +-------+ + + + + | Specimen | Performing Laboratory | + + + | Blood | [facility], CORE [address] [place] [address] | | | [place] [address] | + + + + + | [...] | >60 | >60 mL/min | | LAO | | | + + + + | EGFR NON | >60 | >60 mL/min | | -LAO | | | + + + + [...] | + + + | Blood | [facility], CORE [address] | | | [place] [address] | + + + + + | Narrative | + + | Adult glucose reference range change effective 7-17. GFR is estimated using the | | [...] | | ------ CBC (HEMOGRAM) | | ONLY[[id number]] Abnormal Final | | result Please view [...] | + + + | Blood | [facility], CORE [address] | | | [place] [address] | + + + PTH, SERUM (06/16/2017 4:22 PM) + +-------+ + | Component | Value | Ref Range | + +-------+ + | PTH, SERUM | 52 | 18 - 88 pg/mL | + +-------+ + + + + | Specimen | Performing Laboratory | + + + | Blood | [facility], CORE [address] [facility] | | | [place] [address] | + + + + + | [...] | + + + | Blood | [facility], CORE [address] | | | [place] [address] | + + + + + | [...] | + + + | Blood | [facility], CORE [address] [facility] | | | [place] [address] | + + + HEMOGLOBIN A1C, BLOOD [...] | + + + | Blood | [facility], SPECIAL IMM + [facility] [address] [facility] [address] [address] | | | [place] [address] | + + + + + | Narrative | + + | Alternate forms of testing such as fructosamine should be considered for | | monitoring moth exterminator glycemic control in patients with: Increased red cell turnover, | | certain hemoglobinopathies (e.g., HbS, HbE, HbC and thalassemia syndromes), anemias, | | blood loss, chronic liver disease and hemochromatosis (artefactually low HbA1c); iron | | deficiency anemia (artefactually high HbA1c due to enhanced glycation of hemoglobin). | | | + + from Last 3 Months
--- OUTSIDE RECORDS SUMMARY | ~2017-09-13 | XMS | Encounter Summary ---
Demographics + + + | Address | [address] | | | [place] [address] | + + + | Home Phone | | + + + | Preferred Language | Unknown | + + + | Marital Status | Single | + + + | Mormon Affiliation | 1013 | + + + | Race | Unknown | + + + | Ethnic Group | Unknown | + + + Author + + + | Author | [facility] [place] | | | and Ozzyana | + + + | Organization | [facility] [place] | | | and [...] [place] | | | | | [address] | | + + + + + Care Team Providers + +------+ + | Care Director Biomedical Engineering Name | Role | Phone | + [...] | PULMONARY [address] | MD [address] | | | | | [place], | [place], [place] | | | | | [place] [address] | [place], [place] | | | | | [phone] | [address] | | | | | | | [...] | | | | | [place] [address] | | | | | | [phone] | | | | | | | [...]
--- OUTSIDE RECORDS SUMMARY | ~2017-09-13 | XMS | Clinical Summary ---
Demographics + + + | Address | [address] | | | [place] [address] | + + + | Home Phone | | + + + | Preferred Language | Unknown | + + + | Marital Status | Single | + + + | Sikh Affiliation | 1013 | + + + | Race | Unknown | + + + | Ethnic Group | Unknown | + + + Author + + + | Author | [facility] [place] | | | and Ozzyana | + + + | Organization | [facility] [place] | | | and [place] [...] [address] | | | | | [facility] [place] | | | | | [address] | | + + + + + Care Team Providers + +------+ + | Care District Administrative Assistant Name | Role | Phone [...] Medical | | | | | | [employer] H[employer] Developer | | +--------+ + + + + [...] | | | | | [place] [address] | | | | | | [phone] | | | | | | | | +--------+---------+ + + + | 01/15/ | Office | | Adolfo Zazueta, | | | 2017 | Visit | | MD Jac Tong | | | | | | [place], Level II | | | | | | [place] | | | | | | [id number] | | | | | | | [...] Self | [birth year] | Home: | [address] | | | al/[place]o | | 1971 | [phone] | [place] [address] | | | kevin | | | [address] | | + +--------+ +--------+ + +
--- OUTSIDE RECORDS SUMMARY | ~2017-09-13 | XMS | Encounter Summary ---
Demographics + + + | Address | [address] | | | [place] [address] | + + + | Home Phone [...] Author + + + | Author | [facility] | + + + | Organization | [facility] | + + + | Address | Unknown | + + + | Phone | Unavailable | + + + Support + + +---------+ + | Name | Relationship | Address | Phone | + + +---------+ + | Jordan Aguirre | ECON | Unknown | Unavailable | + + +---------+ + Care Team Providers + +------+ + | Care Supervisor Television Chassis Repair Name | Role | Phone | + [...] | | | | | type | [address] | [address] | | | | | Gastroesopha | Phone: | Phone: | | | | | geal reflux | [phone] | [phone] | | | | | disease, | Fax: | Fax: | | | | | esophagitis | [phone] | [phone] | | | | | presence not [...] | | | | Sleep apnea, | [place], | Physicians | | | | | unspecified | [place] | Pavilion | | | | | type | [address] | Physicians | | | | | Gastroesopha | Phone: | Pavilion | | | | | geal reflux | [phone] | [place], [place] | | | | | disease, | Fax: | [address] | | | | | esophagitis | [phone] | Phone: | | | | | presence not | | [phone] | | | | | specified | | Fax: | | | | | Vitamin D | | [phone] | | | | | deficiency | [...] | | | | | | | [address] | | | | | | | for Health | | | | | | | and Healing, | | | | | | | 6th floor | | | | | | | [place], [place] | | | | | | | [address] | | | | | | | Phone: | | | | | | | [phone] | | | | | | | Fax: | | | | | | | [phone] | + +--------+ + + + + Encounter Details +--------+---------+ + + + | Date | Type | Department | Care Team | Description | +--------+---------+ + + + | 06/16/ | Office | Digestive Health | Hansa Hawkins, | S/P laparoscopic | | 2018 | Visit | Center at [facility] 6th | AGACNP [address] | sleeve gastrectomy | | | | Floor [address] | Ave [place], [place] | (Primary Dx); | | | | Ave Mailcode: [id number] | [id number] | Essential | | | | [facility] | | hypertension, | | | | and Healing, 6th | | benign; Sleep apnea, | | | | floor [place], [place] | | unspecified type; | | | | [address] | | Gastroesophageal | | | | [...] | | | | | | adult ([facility]); | | | | | | Diabetes mellitus | | | | | | type 2, | | | | | | diet-controlled | | | | | | ([facility]) | +--------+---------+ + + + [...] PM PST-start journaling food intake again, download [employer] samuel. -make appt with Mihaela for nutritional [...] echo and chest xray findings. Followed by legal aid in [place]. Shortness of breath Thyroid disease Past Surgical History Procedure Laterality Date C section 1998 Tonsillectomy 1996 Knee surgery 1996 Gastric banding 2004, 2007, 2011 Skin and subcutaneous tissue surgery 2006 Foot surgery 2009 - 2010 3x Hysterectomies, vaginal 2009 Appendectomy for ruptured appendix with abscess 2012 Gallbladder surgery 2008 Laparotomy 07/2014 Laparoscopic sleeve gastrectomy [facility] Social History Social History Marital [...] sinus rhythm. Normal ECG Records reviewed from [facility] (see media tab): Echocardiogram 11/18/2013: 1. [...] There is no pericardial effusion.21. No mass [id number]. Po or visualization. Definity was used to opacify the left ventricular chamber and improve deli neation of the endocardial border. Family History Problem Relation Diabetes Father Hypertension Mother Obesity Mother Hypertension Father Heart Disease Father [place] 78 Allergies Allergies Allergen Reactions Advair Diskus [...] is having daily. -I suggested making another gallery director appt for next month to discuss possible [...] to plan and will call and/or send Adduplex message if any issues. Start time 314, end time 349. I spent a total of 35 minutes face to face with this patie nt. Over 50% of visit was in counseling. MILAD Rodriguez-RENETTA Bariatric Surgery Nurse Practitioner [facility] | [id number] [address] | [place], [place] | [address] | in this encounter Plan of Treatment +--------+---------+ + + + | Date | Type | Specialty | Care Team | Description | +--------+---------+ + + + | 01/08/ | Office | Cardiology | Juan Antonio Mclaughlin, | | | 2017 | Visit | | MD Elvin Dee | | | | | [address] | | | | | | [place], [place] | | | | | | [address] | | | | | | [phone] | | | | | | | [...] + + + | Blood | [facility] SPECIAL IMM + CO[facility] [address] [facility] [address] | | | [place] [address] | + + + + + | Narrative | + + | Alternate forms of testing such as fructosamine should be considered for | | monitoring manager long term care glycemic control in patients [...] + + + | Blood | [facility], CORE [address] [facility] | | | [place] [address] | + + + + + | [...] + + + | Blood | [facility], CORE [address] [place] [address] | | | [place] [address] | + + + BASIC METABOLIC SET [...] | >60 | >60 mL/min | | FAROESE | | | + + + + | EGFR NON | >60 | >60 mL/min | | -FAROESE | | | + + + + [...] | + + + | Blood | [facility], CORE [address] | | | [place] [address] | + + + + + | [...] | | ------ CBC (HEMOGRAM) | | ONLY[[id number]] Abnormal Final | | result Please view [...] characteristics | | | | determined by [employer]AT. See | | | | Compliance Statement B: | | | | [employer]/CSPerformed by [facility] | | | | [address] [address] | | | | [phone].[employer], Iker Angelo, | | | | Katherin BECKHAM. Director | | + + + + + + + | Specimen | Performing Laboratory | + + + | Blood | [facility] UN[facility] - INTFC [address] [facility] | | | [place] [address] | + + + VITAMIN D, 25-HYDROXY, SERUM (06/16/2017 4:22 PM) + +-------+ + | Component | Value | Ref Range | + +-------+ + | VITAMIN D 25 HYDROXY | 44.8 | 30 - 80 ng/mL | + +-------+ + + + + | Specimen | Performing Laboratory | + + + | Blood | [facility], CORE [address] [facility] | | | [place] [address] | + + + + + | [...] + + + | Blood | [facility], CORE [address] [facility] | | | [place] [address] | + + + PTH, SERUM (06/16/2017 4:22 PM) + +-------+ + | Component | Value | Ref Range | + +-------+ + | PTH, SERUM | 52 | 18 - 88 pg/mL | + +-------+ + + + + | Specimen | Performing Laboratory | + + + | Blood | [facility], CORE [address] [facility] | | | [place] [address] | + + + + + | [...]
--- OUTSIDE RECORDS SUMMARY | ~2017-09-13 | XMS | Clinical Summary ---
Demographics + + + | Address | [address] | | | [place] [address] | + + + | Home Phone [...] Team Providers + +------+ + | Care Mathematical Sciences Professor Name | Role | Phone | + +------+ + | Bassam Ross DO | PP | | + +------+ + Source Comments SHERIE is fully live [facility] and [facility] InPatient.[facility] Allergies + + + + [...] with BMI of 60.0-69.9, adult ([facility]) | 02/25/2016 | + + [...] | | | | adult ([facility]); | | | | | | Diabetes mellitus | | | | | | type 2, | | | | | | diet-controlled | | | | | | ([facility]) | +--------+ + + + [...] | | | | adult ([facility]); | | | | | [...] | Heart Disease | Father | | DC 78 | + + +------+ + | [...] | | 2018 | Visit | | [address] [facility] | | | | | | [address] | | | | | | [place], [place] | | | | | | [address] | | | | | | [phone] | | | | | | | [...] | | | | | | | /[address] | | | | | | | | 329 | + +------+--------+ +--------+--------+--------+ | Dion Velamplanted: Qty: | | N/A: | | | 08/29/ | 12BSGE | | 2 on 02/07/2015 by Brianna | | Abdome | | | 2017 | C60A / | | Dori Ferris MD | | n | | | | | | | | | | | | /[id number] | | | | | | | | 327 | + +------+--------+ +--------+--------+--------+ Procedures + +--------+ + + + | Procedure Name | Priori | Date/Time | Associated Diagnosis | Comments | | | ty | | | | + +--------+ + + + | [place] MNT RE-ASSESSMNT | Routin | 06/17/2017 | [...] | + + + | Blood | [facility], CORE [address] [place] [address] | | | [place] [address] | + + + VITAMIN B1, WHOLE [...] characteristics | | | | determined by [employer]. See | | | | Compliance Statement B: | | | | [employer]/CSPerformed by [employer] | | | | [facility] [facility] [place] [address] | | | | [phone].[employer], Iker Angelo, | | | | , Lab. Director | | + + + + + + + | Specimen | Performing Laboratory | + + + | Blood | [facility] [address] [facility] | | | [place] [address] | + + + VITAMIN D, 25-HYDROXY, SERUM (06/16/2017 4:22 PM) + +-------+ + | Component | Value | Ref Range | + +-------+ + | VITAMIN D 25 HYDROXY | 44.8 | 30 - 80 ng/mL | + +-------+ + + + + | Specimen | Performing Laboratory | + + + | Blood | [facility], CORE [address] [place] [address] | | | [place] [address] | + + + + + | [...] | + + + | Blood | [facility], CORE [address] | | | [place] [address] | + + + + + | [...] | | ------ CBC (HEMOGRAM) | | ONLY[[id number]] Abnormal Final | | result Please view [...] | + + + | Blood | [facility], CORE [address] [facility] [address] | | | [place] [address] | + + + PTH, SERUM (06/16/2017 4:22 PM) + +-------+ + | Component | Value | Ref Range | + +-------+ + | PTH, SERUM | 52 | 18 - 88 pg/mL | + +-------+ + + + + | Specimen | Performing Laboratory | + + + | Blood | [facility], CORE [address] [facility] | | | [place] [address] | + + + + + | [...] | + + + | Blood | [facility], CORE [address] | | | [place] [address] | + + + + + | [...] | + + + | Blood | [facility], CORE [address] [facility] | | | [place] [address] | + + + HEMOGLOBIN A1C, BLOOD [...] | + + + | Blood | [facility], SPECIAL IMM + COA [address] [facility] | | | [place] [address] | + + + + + | Narrative | + + | Alternate forms of testing such as fructosamine should be considered for | | monitoring terminal gauger glycemic control in patients with: Increased red cell turnover, | | certain hemoglobinopathies (e.g., HbS, HbE, HbC and thalassemia syndromes), anemias, | | blood loss, chronic liver disease and hemochromatosis (artefactually low HbA1c); iron | | deficiency anemia (artefactually high HbA1c due to enhanced glycation of hemoglobin). | | | + + from Last 3 Months
[~2017-09-13 19:43] MED LIST changes: -KEFLEX500 MG PO; -POTASSIUM CHLO10 MEQ PO
[2017-09-13] MEDS ORDERED: KEFLEX500 MG PO (20:06)
[2017-09-13] MEDS ORDERED: POTASSIUM CHLO10 MEQ PO (21:57)
--- NOTE | 2017-09-15 17:12 | EKG ---
[facility] [address] [facility] [place] [address] Signed Atrial fibrillation with rapid ventricular response Low voltage QRS Abnormal ECG When compared with ECG of 06-JUN-2017 15:18, No significant change was found Confirmed by CAMERON STARKEY MD ([id number]) on 09/15/2017 5:12:48 PM Electronically Signed By: CAMERON STARKEY MD 09/15/17 1712 PATIENT NAME: ANDREE JOSÉLUPILLO RUELAS Electrocardiogram DATE OF : 66 PHYSICIAN: CAMERON STARKEY MD REPORT #: [id number] REPORT IS CONFIDENTIAL AND NOT TO BE RELEASED WITHOUT AUTHORIZATION
== END 2017-09-13 22:24 | disposition home or self-care (01) ==
LOC: ED 19:43
DX: J20.9 Acute bronchitis, unspecified (principal); I48.91 Unspecified atrial fibrillation; I11.0 Hypertensive heart disease with heart failure; I50.9 Heart failure, unspecified; F41.0 Panic disorder [episodic paroxysmal anxiety]; E66.9 Obesity, unspecified; E03.9 Hypothyroidism, unspecified; J45.901 Unspecified asthma with (acute) exacerbation; Z87.01 Personal history of pneumonia (recurrent); Z87.891 Personal history of nicotine dependence; Z88.0 Allergy status to penicillin; Z88.2 Allergy status to sulfonamides; Z79.01 Long term (current) use of anticoagulants; Z79.899 Other long term (current) drug therapy; Z79.84 Long term (current) use of oral hypoglycemic drugs
CPT/HCPCS: 71045; 80053; 83735; 83880; 84484; 85025; 85610; 85730; 93005; 93010; 94640; 96374; 96375; 99284; J2930

== ENCOUNTER 2018-01-24 16:35 | Emergency (ER) | payer OTHER ==
[~2018-01-24] VITALS: Ht 160 cm; Wt 180.8 kg
--- OUTSIDE RECORDS SUMMARY | ~2018-01-24 | XMS | Encounter Summary ---
Demographics + + + | Address | [address] | | | [place] [address] | + + + | Home Phone [...] Author + + + | Author | [facility] | + + + | Organization | [facility] | + + + | Address | Unknown | + + + | Phone | Unavailable | + + + Support + + +---------+ + | Name | Relationship | Address | Phone | + + +---------+ + | Jordan Aguirre | ECON | Unknown | Unavailable | + + +---------+ + Care Team Providers + +------+ + | Care Detail Supervisor Name | Role | Phone | + +------+ + | Bassam Ross DO | PCP | | + +------+ + Reason for Visit + + + | Reason | Comments | + + + | Prior Authorization | Jonatan | | Request | | + + + Encounter Details +--------+ + + + + | Date | Type | Department | Care Team | Description | +--------+ + + + + | 01/11/ | Telephone | Cardiology | Sheila Loya | Prior Authorization | | 2018 | | Preventive at [facility] | JULIETA Figuero[address] | Request (Jardiance) | | | | [address] | [place], | | | | | Mailcode: CH9A | [place] [address] | | | | | [facility] | [phone] | | | | | and [facility] | | | | | | [place], [place] | | | | | | [address] | | | | | | [phone] | | | +--------+ + + + [...] + + | 02/26/ | Office | Surgery | Yaritza Venegas, | | | 2017 | Visit | | MD Yvon [address] | | | | | | [place] | | | | | | [address] | | | | | | [phone] | | | | | | | | +--------+---------+ + + + | 07/09/ | Office | Cardiology | Juan Antonio Mclaughlin, | | | 2018 | Visit | | [address] | | | | | | [place], [place] | | | | | | [address] | | | | | | [phone] | | | | | | | | +--------+---------+ + + + as of this encounter Visit Diagnoses Not on filein this encounter"
--- OUTSIDE RECORDS SUMMARY | ~2018-01-24 | XMS | Encounter Summary ---
Demographics + + + | Address | [address] | | | [place] [address] | + + + | Home Phone [...] Author + + + | Author | [facility] [facility] | + + + | Organization | [facility] | + + + | Address | Unknown | + + + | Phone | Unavailable | + + + Support + + +---------+ + | Name | Relationship | Address | Phone | + + +---------+ + | An Carlin | ECON | , [place] | | + + +---------+ + Care Team Providers + +------+ + | Care Draughtsman Name | Role | Phone | + +------+ + | Iqra Peralta MD | PCP | | + +------+ + Encounter Details +--------+ + + + + | Date | Type | Department | Care Team | Description | +--------+ + + + + | 01/19/ | Hospital | [facility] | Yonatan Gonzalez | Arrived | | 2018 | Encounter | [facility] | [address] | | | | | Preadmission | [place], [place] | | | | | Services [address] | [phone] | | | | | [place], [place] | | | | | | [address] | | | +--------+ + + + + Social History + +-------+ +--------+------+ | Tobacco Use | Types | Packs/Day | Years | Date | | | | | Used | | + +-------+ +--------+------+ | Former Smoker | | 0.5 | 20 | | + +-------+ +--------+------+ + +---+---+---+ [...] + + + | Blood Pressure | 158/76 | 01/19/2018 5:48 PM PDT | + + + + | Pulse | 102 | 01/19/2018 5:48 PM PDT | + + + + | Temperature | - | - | + + + + | Respiratory Rate | - | - | + + + + | Oxygen Saturation | 95% | 01/19/2018 5:48 PM PDT | + + + + | Inhaled Oxygen | - | - | | Concentration | | | + + + + | Weight | 188 kg (414 lb 7.4 | 01/19/2018 5:48 PM PDT | | | oz) | | + + + + | Height | 157.5 cm (5' 2") | 01/19/2018 5:48 PM PDT | + + + + | Body Mass Index | 75.81 | 01/19/2018 5:48 PM PDT | + + + + in this encounter Discharge Instructions Deonte Mendez RN - 01/19/2018Formatting of this note may be different from the original. Outpatient Prescriptions Marked as Taking for the 01/19/18 encounter (Hospital Encounter) [facility] ROOM 4 Medication Sig INSTRUCTIONS albuterol (PROVENTIL HFA;VENTOLIN HFA) 108 (90 Base) MCG/ACT inhaler Inhale 2 puffs int o the lungs every 4 (four) hours as needed for Wheezing. TAKE day of procedure, if needed atorvastatin (LIPITOR) 10 MG tablet Take 10 mg by mouth every morning. DO NOT TAKE day of procedure beclomethasone (QVAR) 80 MCG/ACT inhaler Inhale 1 puff into the lungs 2 (two) times bruna ly. TAKE day of procedure buPROPion (WELLBUTRIN XL) 150 MG 24 hr tablet Take 150 mg by mouth every morning. TAKE day of procedure buPROPion (WELLBUTRIN XL) 300 MG 24 hr tablet Take 300 mg by mouth every morning. TAKE day of procedure Desvenlafaxine Succinate ER 25 MG TB24 Take 1 tablet by mouth every morning. TAKE day o f procedure diltiazem (CARDIZEM CD) 360 MG 24 hr capsule Take 360 mg by mouth nightly. TAKE day of procedure Ergocalciferol (VITAMIN D2 PO) Take 50,000 Units by mouth. Thursday, Thursday, Thursday HO LD prior to procedure. Take last dose 01/21/2018 ferrous sulfate, 65 FE, 325 (65 FE) MG EC tablet Take 65 mg of iron by mouth 2 (two) ti mes daily with meals. DO NOT TAKE day of procedure hydrOXYzine (VISTARIL) 25 MG capsule Take 25 mg by mouth 3 (three) times daily as neede d for Itching. TAKE day of procedure, if needed ipratropium-albuterol (DUO-NEB) 0.5-2.5 mg/3mL Take 3 mLs by nebulization every 6 (six) hours as needed. TAKE day of procedure, if needed levothyroxine (SYNTHROID) 75 MCG tablet Take 75 mcg by mouth every morning before break fast. TAKE day of procedure metFORMIN (GLUCOPHAGE) 1000 MG tablet Take 1,000 mg by mouth 2 (two) times daily with m eals. DO NOT TAKE day of procedure omeprazole (PRILOSEC) 20 MG capsule Take 20 mg by mouth every morning before breakfast. TAKE day of procedure pramipexole (MIRAPEX) 1.5 MG tablet Take 1.5 mg by mouth 2 (two) times daily. TAKE day of procedure traZODone (DESYREL) 50 MG tablet Take 50 mg by mouth nightly as needed for Sleep. ONE H KATHY TO FULL TABLET PER DOSE DO NOT TAKE day of procedure warfarin (COUMADIN) 5 MG tablet Take 10 mg by mouth daily. HOLD prior to procedure. Rodrigo e last dose 01/22/2018 PER YOUR SURGEON'S INSTRUCTIONS ALREADY GIVEN TO YOU. PLEASE NOTE THE FOLLOWING ADDITIONAL INFORMATION: TYLENOL/acetaminophen MAY BE TAKEN FOR PAIN UP TO THE SURGERY TIME. BLOOD THINNERS, such as 325mg Aspirin, Ibuprofen, Naproxen, SHOULD NOT BE TAKEN OF 01/22 UNTIL AFTER SURGERY. Then follow Doctor recommendation. DO NOT STOP AT LOBBY REGISTRATION. TAKE THE ELEVATOR BY THE THOMASI TO THE SECOND FLOOR to CH DIAMOND IN FOR SURGERY. Once elevator door opens you step out to check-in desk and are in the [facility] waiting room. in this encounter Medications at Time of Discharge + + + +---------+ + + | Medication | Sig. | Disp. | Refills | Start | End Date | | | | | | Date | | + + + +---------+ + + | albuterol | Inhale 2 puffs into | | | | | | (PROVENTIL | the lungs every 4 | | | | | | HFA;VENTOLIN HFA) | (four) hours as | | | | | | 108 (90 Base) | needed for Wheezing. | | | | | | MCG/ACT inhaler | | | | | | + + + +---------+ + + | atorvastatin | Take 10 mg by mouth | | | | | | (LIPITOR) 10 MG | every morning. | | | | | | tablet | | | | | | + + + +---------+ + + | beclomethasone | Inhale 1 puff into | | | | | | (QVAR) 80 MCG/ACT | the lungs 2 (two) | | | | | | inhaler | times daily. | | | | | + + + +---------+ + + | buPROPion | Take 150 mg by mouth | | | | | | (WELLBUTRIN XL) 150 | every morning. | | | | | | MG 24 hr tablet | | | | | | + + + +---------+ + + | buPROPion | Take 300 mg by mouth | | | | | | (WELLBUTRIN XL) 300 | every morning. | | | | | | MG 24 hr tablet | | | | | | + + + +---------+ + + | Desvenlafaxine | Take 1 tablet by | | | | | | Succinate ER 25 MG | mouth every morning. | | | | | | TB24 | | | | | | + + + +---------+ + + | diltiazem | Take 360 mg by mouth | | | | | | (CARDIZEM CD) 360 MG | nightly. | | | | | | 24 hr capsule | | | | | | + + + +---------+ + + | Ergocalciferol | Take 50,000 Units by | | | | | | (VITAMIN D2 PO) | mouth. Thursday, | | | | | | | Thursday, Thursday | | | | | + + + +---------+ + + | ferrous sulfate, | Take 65 mg of iron | | | | | | 65 FE, 325 (65 FE) | by mouth 2 (two) | | | | | | MG EC tablet | times daily with | | | | | | | meals. | | | | | + + + +---------+ + + | hydrOXYzine | Take 25 mg by mouth | | | | | | (VISTARIL) 25 MG | 3 (three) times | | | | | | capsule | daily as needed for | | | | | | | Itching. | | | | | + + + +---------+ + + | | Take 3 mLs by | 360 mL | 0 | //20 | | | ipratropium-albutero | nebulization every 6 | | | 14 | | | l (DUO-NEB) 0.5-2.5 | (six) hours as | | | | | | mg/3mL | needed. | | | | | + + + +---------+ + + | levothyroxine | Take 75 mcg by mouth | | | | | | (SYNTHROID) 75 MCG | every morning | | | | | | tablet | before breakfast. | | | | | + + + +---------+ + + | metFORMIN | Take 1,000 mg by | | | | | | (GLUCOPHAGE) 1000 MG | mouth 2 (two) times | | | | | | tablet | daily with meals. | | | | | + + + +---------+ + + | omeprazole | Take 20 mg by mouth | | | | | | (PRILOSEC) 20 MG | every morning before | | | | | | capsule | breakfast. | | | | | + + + +---------+ + + | Oxygen (outpatient | Inhale 2 L into the | | | | | | therapy) | lungs continuous. | | | | | + + + +---------+ + + | pramipexole | Take 1.5 mg by mouth | | | | | | (MIRAPEX) 1.5 MG | 2 (two) times | | | | | | tablet | daily. | | | | | + + + +---------+ + + | traZODone | Take 50 mg by mouth | | | | | | (DESYREL) 50 MG | nightly as needed | | | | | | tablet | for Sleep. ONE HALF | | | | | | | TO FULL TABLET PER | | | | | | | DOSE | | | | | + + + +---------+ + + | warfarin | Take 10 mg by mouth | | | | | | (COUMADIN) 5 MG | daily. | | | | | | tablet | | | | | | + + + +---------+ + + as of this encounter Plan of Treatment +--------+ + + + + | Date | Type | Specialty | Care Team | Description | +--------+ + + + + | 01/26/ | Surgery | General Surgery | Yonatan Gonzalez | DENTAL - EXTRACTIONS | | 2017 | | | [place], [place] [address] | - TEETH | | | | | [place], [place] | | | | | | [address] | | | | | | | | +--------+ + + + + | 01/26/ | Procedure | General Surgery | | | | 2017 | Pass | | | | +--------+ + + + + | 01/26/ | Hospital | General Surgery | Yonatan Gonzalez | | | 2018 | Encounter | | [place], [place] [address] | | | | | | [place] | | | | | | [address] | | | | | | | | +--------+ + + + + as of this encounter Procedures + +--------+ + + + | Procedure Name | Priori | Date/Time | Associated Diagnosis | Comments | | | ty | | | | + +--------+ + + + | EKG STANDARD 12 LEAD | Routin | 01/19/2018 | | Results for this | | | e | 5:59 PM | | procedure are in the | | | | PDT | | results section. | + +--------+ + + + | MRSA BY PCR | Timed | 01/19/2018 | | Results for this | | | | 5:50 PM | | procedure are in the | | | | PDT | | results section. | + +--------+ + + + in this encounter Results EKG STANDARD 12 LEAD (01/19/2018 5:59 PM) + + + + + | Component | Value | Ref Range | Performed At | + + + + + | Ventricular Rate | 103 | BPM | [facility] | + + + + + | Atrial Rate | 394 | BPM | [facility] | + + + + + | QRS Duration | 76 | ms | [facility] | + + + + + | Q-T Interval | 344 | ms | [facility] | + + + + + | QTC Calculation | 450 | ms | [facility] | | (Bezet) | | | | + + + + + | Calculated R [place] | -2 | degrees | [facility] | + + + + + | Calculated T [place] | 28 | degrees | [facility] | + + + + + | Diagnosis | Atrial fibrillation with | | [facility] | | | rapid ventricular | | | | | responseAbnormal ECGWhen | | | | | compared with ECG of | | | | | 18-NOV-2013 06:48,Atrial | | | | | fibrillation has | | | | | replaced Sinus | | | | | rhythmVent. rate has | | | | | increased BY 44 BPMQT | | | | | has lengthenedConfirmed | | | | | by Marika BECKHAM, | | | | | Prabhu ([id number]) on | | | | | 01/19/2018 9:32:06 PM | | | + + + + + + + + + + | Performing | Address | City/State/Zipcode | Phone Number | | Organization | | | | + + + + + | [facility] | [address] | [place] [address] | | + + + + + MRSA by PCR (01/19/2018 5:50 PM) + + + + + | Component | Value | Ref Range | Performed At | + + + + + | SOURCE | NARES(NOSE) | | [facility] | + + + + + | MRSA PCR | NEGATIVEComment: Testing | NEGATIVE | [facility] | | | performed at [facility] [place] | | | | | [address];[place], [place] | | | | | [address] | | | + + + + + + + | Specimen | + + | Nasopharyngeal - | | Nares(Nose) | + + + + + + + | Performing | Address | City/State/Zipcode | Phone Number | | Organization | | | | + + + + + | [facility] | [address] | [place] [address] | | + + + + + in this encounter Visit Diagnoses Not on filein this encounter
--- OUTSIDE RECORDS SUMMARY | ~2018-01-24 | XMS | Encounter Summary ---
Demographics + + + | Address | [address] | | | [place] [address] | + + + | Home Phone | | + + + | Preferred Language | Unknown | + + + | Marital Status | Single | + + + | Rastafari Affiliation | 1013 | + + + | Race | Unknown | + + + | Ethnic Group | Unknown | + + + Author + + + | Author | [facility] | | | and [place] | + + + | Organization | [facility] | | | and [place] | [...] [address] | | | | | [place] | | | | | [address] | | + + + + + Care Team Providers + +------+ + | Care Butadiene Converter Utility Operator Name | Role | Phone | + +------+ + | Iqra Peralta MD | PCP | Unavailable | + +------+ + Reason for Visit + + + | Reason | Comments | + + + | Nephrology | | | Appointment | | + + + Encounter Details +--------+ + + + + | Date | Type | Department | Care Team | Description | +--------+ + + + + | 01/04/ | Telephone | [facility] [place] | Anita Lu, | Nephrology | | 2018 | | NEPHROLOGY [address] | MD [address] | Appointment | | | | [address] | [address] [place] | | | | | [place], [place] | [place] [address] | | | | | [address] | [phone] | | | | | [phone] | | | +--------+ + + + [...] Description | +--------+---------+ + + + | 03/15/ | Office | Nephrology | Sangeetha, | | | 2017 | Visit | | KARIME Enriquez [address] | | | | | | [address] [facility] | | | | | | [address] [place] | | | | | | [phone] | | | | | | | | +--------+---------+ + + + | 05/12/ | Office | Pulmonology | Adolfo Zazueta, | | | 2017 | Visit | | MD Jac Tong | | | | | | [place] | | | | | | [place] | | | | | | [address] | | | | | | | | +--------+---------+ + + + | 07/27/ | Office | Sleep Medicine | Jermaine Fairchild | | | 2019 | Visit | | MD Lars [address] | | | | | | [place] | | | | | | [place] [address] | | | | | | [phone] | | | | | | | | +--------+---------+ + + + as of this encounter Visit Diagnoses Not on filein this encounter"
--- OUTSIDE RECORDS SUMMARY | ~2018-01-24 | XMS | Encounter Summary ---
Demographics + + + | Address | [address] | | | [place] [address] | + + + | Home Phone [...] Author + + + | Author | [facility] | + + + | Organization | [facility] | + + + | Address | Unknown | + + + | Phone | Unavailable | + + + Support + + +---------+ + | Name | Relationship | Address | Phone | + + +---------+ + | Jordan Aguirre | ECON | Unknown | Unavailable | + + +---------+ + Care Team Providers + +------+ + | Care Pit Furnace Operator Name | Role | Phone | + +------+ + | Bassam Ross DO | PCP | | + +------+ + Reason for Visit + + + | Reason | Comments | + + + | New patient | | | consultation | | + + + Consultation (Routine) + +--------+ + + + + | Status | Reason | Specialty | Diagnoses / | Referred By | Referred To | | | | | Procedures | Contact | Contact | + +--------+ + + + + | Pending | | Cardiology | Diagnoses | Shruthi, | Lissette, | | Review | | | Essential | Hansa Hawkins, | MD Juan Antonio | | | | | hypertension | AGACNP [address] | | | | | , benign | [address] | Ave | | | | | Sleep apnea, | [place], | [place], [place] | | | | | unspecified | [place] | [address] | | | | | type | [phone] | Phone: | | | | | Gastroesopha | Phone: | [phone] | | | | | geal reflux | [phone] | Fax: | | | | | disease, | Fax: | [phone] | | | | | esophagitis | [phone] | | | | | | presence not [...] | | | | | | Y CONSULT | | | | | | | TO | | | | | | | CARDIOLOGY | | | + +--------+ + + + + Encounter Details +--------+---------+ + + + | Date | Type | Department | Care Team | Description | +--------+---------+ + + + | 01/08/ | Office | Cardiology in | Juan Antonio Mclaughlin, | Nephrotic syndrome | | 2018 | Visit | [facility] | MD [address] | (Primary Dx); Morbid | | | | Center at [facility] [address] [place], [place] | obesity with BMI of | | | | [facility] | [address] | 60.0-69.9, adult | | | | for Health and | [phone] | ([facility]) | | | | [facility] Floor | | | | | | [place], [place] | | | | | | [address] | | | | | | [phone] | | | +--------+---------+ + + + [...] + + + | Blood Pressure | 129/81 | 01/08/2018 4:26 PM PDT | + + + + | Pulse | 104 | 01/08/2018 4:26 PM PDT | + + + + | Temperature | 37.4 C (99.4 F) | 01/08/2018 4:26 PM PDT | + + + + | Respiratory Rate | 18 | 01/08/2018 4:26 PM PDT | + + + + | Oxygen Saturation | - | - | + + + + | Inhaled Oxygen | - | - | | Concentration | | | + + + + | Weight | 181.5 kg (400 lb 3.2 | 01/08/2018 4:26 PM PDT | | | oz) | | + + + + | Height | 160 cm (5' 3") | 01/08/2018 4:26 PM PDT | + + + + | Body Mass Index | 70.89 | 01/08/2018 4:26 PM PDT | + + + + in this encounter Instructions Patient Instructions - Juan Antonio Mclaughlin MD - 01/08/2018 4:00 PM PDTFormatting of this no te may be different from the original. For more information about body weight regulation, visit YouTube for the video "Time to act on obesity" For more information about FDA-approved prescription weight loss medications, please see we bsites for: 1. Phentermine 2. Phentermine + topiramate (Qsymia) 3. Lorcaserin (Belviq) 4. Bupropion + naltrexone (Contrave) 5. Liraglutide 3.0 (Saxenda) Brand (generic) Ibrahim (30 day / 90 [...] once daily Savings car d available at www.[employer] no government funded patients, $95 off 1st month then $65 off per month thereafter. Belviq (Lorcaserin Immediate Release (IR) or extended release (XR) tablets) ~$270-280 / ~$8 00-830 Orally, twice daily* Savings card available at www.belviqOrabrush no government funde d patients (unless Medicare [...] twice daily* Savings card moriah frazier at www.contrave.Enerplant everyone but Medicaid eligible, takes up to $164 off per month or $492 off per 3 months. Saxenda (Liraglutide) ~$1200 / ~$3600 Subcutaneous injection, once daily Savings card avail able at [email or web address].[email or web address] max benefit of $200 off per prescription. in this encounter Plan of Treatment +--------+---------+ + + + | Date | Type | Specialty | Care Team | Description | +--------+---------+ + + + | 02/26/ | Office | Surgery | Yaritza Venegas, | | | 2017 | Visit | | MD [address] | | | | | | [place], [place] | | | | | | [address] | | | | | | [phone] | | | | | | | | +--------+---------+ + + + | 07/09/ | Office | Cardiology | Juan Antonio Mclaughlin, | | | 2018 | Visit | | MD [address] | | | | | | [place], [place] | | | | | | [address] | | | | | | [phone] | | | | | | | | +--------+---------+ + + + + +--------+ + + | Name | Priori | Associated Diagnoses | Order Schedule | | | ty | | | + +--------+ + + | HEMOGLOBIN A1C, BLOOD | Routin | Morbid obesity | Expected: 01/08/2018 | | | e | with BMI of | (Approximate), | | | | 60.0-69.9, adult | Expires: 02/08/2019 | | | | (HCC) Nephrotic | | | | | syndrome | | + +--------+ + + | LIPID LAB - LIPID PROFILE - | Routin | Morbid obesity | Expected: 01/08/2018 | | PLASMA LIPIDS, HDL AND LDL | e | with BMI of | (Approximate), | | | | 60.0-69.9, adult | Expires: 02/08/2019 | | | | (HCC) Nephrotic | | | | | syndrome | | + +--------+ + + | TSH | Routin | Morbid obesity | Expected: 01/08/2018 | | | e | with BMI of | (Approximate), | | | | 60.0-69.9, adult | Expires: 02/08/2019 | | | | (HCC) Nephrotic | | | | | syndrome | | + +--------+ + + | COMPLETE METABOLIC SET | Routin | Morbid obesity | Expected: 01/08/2018 | | (NA,K,CL,CO2,BUN,CREAT,GLUC,CA, | e | with BMI of | (Approximate), | | T,ALT,BILI TOTAL,ALK | | 60.0-69.9, adult | Expires: 02/08/2019 | | PHOS,ALB,PROT TOTAL) | | ([facility]) Nephrotic | | | | | syndrome | | + +--------+ + + as of this encounter Visit Diagnoses + + | Diagnosis | + + | Nephrotic syndrome - Primary | + + | Morbid obesity with BMI of 60.0-69.9, adult (HCC) | + +
--- OUTSIDE RECORDS SUMMARY | ~2018-01-24 | XMS | Encounter Summary ---
Demographics + + + | Address | [address] | | | [place] [address] | + + + | Home Phone | | + + + | Preferred Language | Unknown | + + + | Marital Status | Single | + + + | Zoroastrian Affiliation | Unknown | + + + | Race | Unknown | + + + | Ethnic Group | Unknown | + + + Author + + + | Author | [facility] | + + + | Organization | [facility] | + + + | Address | Unknown | + + + | Phone | Unavailable | + + + Support + + +---------+ + | Name | Relationship | Address | Phone | + + +---------+ + | An Carlin | ECON | , [place] | | + + +---------+ + Care Team Providers + +------+ + | Care Wide Area Network Engineer Name | Role | Phone | + +------+ + | Bassam Ross DO | PCP | | + +------+ + Encounter Details +--------+ + + + + | Date | Type | Department | Care Team | Description | +--------+ + + + + | 11/04/ | Ancillary | [facility] | Iqra Peralta MD | Edema, unspecified | | 2018 | Procedure | ECHO | [address] | type | | | | | [place] | | | | | | [address] | | | | | | | [...] EXTRACTIONS | | 2017 | | | ATUL Hawkins [address] | - TEETH | | | | | St [place], [place] | | | | | | [address] | | | | | | | | +--------+ + + + + | 01/26/ | Procedure | General Surgery | | | | 2017 | Pass | | | | +--------+ + + + + | 01/26/ | Hospital | General Surgery | Yonatan Gonzalez | | | 2017 | Encounter | | ATUL Hawkins [address] | | | | | | [place], [place] | | | | | | [address] | | | | | | | | +--------+ + + + + as of this encounter Procedures + +--------+ + + + | Procedure Name | Priori | Date/Time | Associated Diagnosis | Comments | | | ty | | | | + +--------+ + + + | ECHO OUTSIDE | Routin | 11/04/2017 | Edema, unspecified | Results for this | | INTERPRETATION | e | 1:17 PM | type | procedure are in the | | STANDARD | | PDT | | results section. | + +--------+ + + + in this encounter Results ECHO outside interpretation standard (11/04/2017 1:17 PM) + + + | Impressions | Performed At | + + + | 1. This was a technically difficult study with suboptimal views due | [facility] | | to patient's body habitus. 2. Grossly normal LV size and systolic | RADIOLOGY | | function. Unable to comment on regional wall motion. 3. There is no | | | pericardial effusion. | | + + + + + + | Narrative | Performed At | + + + | Patient Name: DEANN JOSÉ Date of : 1970 | [facility] | | Performing Physician: Bassam Hernandez | RADIOLOGY | | | | | INDICATIONS Edema CONCLUSIONS 1. This | | | was a technically difficult study with suboptimal views due to | | | patient's body habitus. 2. Grossly normal LV size and systolic | | | function. Unable to comment on regional wall motion. 3. There is no | | | pericardial effusion. FINDINGS -------- ECG rhythm: Atrial | | | fibrillation. Study: A 2-dimensional transthoracic echocardiogram | | | with m-mode, spectral and color flow Doppler was perfomed. Study: | | | This was a technically difficult study with suboptimal views. Left | | | Ventricle: Grossly normal LV size and systolic function. Unable to | | | comment on regional wall motion. Right Ventricle: The RV was not well | | | visualized. Left Atrium: The left atrium is mildly dilated. Right | | | Atrium: The right atrium is mildly enlarged. Aortic Valve: The aortic | | | valve was not well visualized. Aortic Valve: There is no evidence | | | of aortic regurgitation. Aortic Valve: There is no evidence of | | | aortic stenosis. Mitral Valve: The mitral valve was not well | | | visualized. Mitral Valve: There is trace mitral regurgitation. | | | Tricuspid Valve: The tricuspid valve was not well visualized. | | | Tricuspid Valve: Trace tricuspid regurgitation present. Tricuspid | | | Valve: There is no evidence of pulmonary hypertension. Pulmonic | | | Valve: The pulmonic valve was not well visualized. Pericardium: There | | | is no pericardial effusion. Pericardium: No pleural effusion seen. | | | IVC/Hepatic Veins: The IVC was not well visualized. Aorta: Aorta not | | | well seen. General comments: Please consider Definity for better | | | evaluation of left ventricular function. MEASUREMENTS | | | Ao asc: 3.33 cm Ao Diam: 3.27 cm LA Diam: | | | 3.85 cm LA Major: 5.21 cm EDV(Teich): 75.96 ml IVSd: | | | 1.39 cm LVIDd: 4.14 cm LVPWd: 1.18 cm LVOT Area: 3.16 | | | cm2 LVOT Diam: 2.00 cm %FS: 26.85 % EF(Teich): 52.85 % | | | ESV(Teich): 35.81 ml LVIDs: 3.02 cm SV(Teich): 40.14 ml | | | RA Major: 5.45 cm RV Major: 7.36 cm RVIDd: 2.99 cm | | | LVEF MOD A2C: 70.15 % SV MOD A2C: 72.22 ml LVEF MOD A4C: | | | 62.38 % SV MOD A4C: 61.69 ml EF Biplane: 66.75 % LVEDV MOD | | | BP: 105.61 ml LVESV MOD BP: 35.10 ml LVEDV MOD A2C: | | | 102.96 ml LVLd A2C: 7.04 cm LVEDV MOD A4C: 98.89 ml LVLd | | | A4C: 7.77 cm LVESV MOD A2C: 30.73 ml LVLs A2C: 5.53 cm | | | LVESV MOD A4C: 37.19 ml LVLs A4C: 5.99 cm LAESV(A-L): | | | 84.95 ml LAESV Index (A-L): 32.42 ml/m2 LAAs A2C: 21.37 cm2 | | | LAESV A-L A2C: 73.73 ml LALs A2C: 5.26 cm LAAs A4C: | | | 24.63 cm2 LAESV A-L A4C: 95.79 ml LALs A4C: 5.37 cm | | | RAAs: 21.57 cm2 RAESV A-L: 68.54 ml RAESV MOD: 63.21 ml | | | RALs: 5.76 cm TAPSE: 1.68 cm AV maxP.68 mmHg AV | | | meanP.98 mmHg AV Vmax: 1.19 m/s AV Vmean: 0.83 m/s | | | AV VTI: 23.45 cm MIKHAIL Vmax: 2.32 cm2 MIKHAIL (VTI): 2.48 cm2 | | | AVAI Vmax: 0.00 cm2/m2 AVAI (VTI): 0.00 cm2/m2 LVOT | | | maxP.06 mmHg LVOT meanP.76 mmHg LVSI Dopp: 22.26 | | | ml/m2 LVSV Dopp: 58.32 ml LVOT Vmax: 0.87 m/s LVOT | | | Vmean: 0.63 m/s LVOT VTI: 18.40 cm MV A Gregg: 0.03 m/s | | | MV DecT: 185.80 ms MV E Gregg: 1.40 m/s MV E/A Ratio: 37.8 | | | MV PHT: 53.88 ms MVA By PHT: 4.08 cm2 MV maxP.71 | | | mmHg MV meanP.22 mmHg MV Vmax: 1.78 m/s MV Vmean: | | | 1.02 m/s MV VTI: 26.10 cm MVA (VTI): 2.23 cm2 Septal | | | e': 0.08 m/s Septal E/e': 17.11 Lateral e': 0.08 m/s | | | Lateral E/e': 17.11 RAP: 5 mmHg RVSP: 22.03 mmHg TR | | | maxP.03 mmHg TR Vmax: 2.06 m/s Director Of Placement: | | | Authenticated by: Bassam Isabelwetmore Report Date/Time: 11-13-2017 | | | 16:25:37 | | + + + + ----+ | Procedure Note | + ----+ | Tommy Gloria Results In - 11/13/2017 4:30 PM PDT Patient Name: Jade JOSÉ of | | : 1970Accession: [id number] Physician: Bassam | | Alsamara INDICATIONS------ | | -----EdemaCONCLUSIONS 1. This was a technically difficult study with | | suboptimal views due to patient's body habitus.2. Grossly normal LV size and systolic | | function. Unable to comment on regional wall motion.3. There is no pericardial | | effusion.FINDINGS--------ECG rhythm: Atrial fibrillation.Study: A 2-dimensional | | transthoracic echocardiogram with m-mode, spectral and color flow Doppler was perfomed. | | Study: This was a technically difficult study with suboptimal views.Left Ventricle: | | Grossly normal LV size and systolic function. Unable to comment on regional wall | | motion.Right Ventricle: The RV was not well visualized.Left Atrium: The left atrium is | | mildly dilated.Right Atrium: The right atrium is mildly enlarged.Aortic Valve: The | | aortic valve was not well visualized. Aortic Valve: There is no evidence of aortic | | regurgitation. Aortic Valve: There is no evidence of aortic stenosis.Mitral Valve: The | | mitral valve was not well visualized. Mitral Valve: There is trace mitral | | regurgitation.Tricuspid Valve: The tricuspid valve was not well visualized. Tricuspid | | Valve: Trace tricuspid regurgitation present. Tricuspid Valve: There is no evidence of | | pulmonary hypertension.Pulmonic Valve: The pulmonic valve was not well | | visualized.Pericardium: There is no pericardial effusion. Pericardium: No pleural | | effusion seen.IVC/Hepatic Veins: The IVC was not well visualized.Aorta: Aorta not well | | seen.General comments: Please consider Definity for better evaluation of left | | ventricular function.MEASUREMENTS Ao asc: 3.33 cmAo Diam: 3.27 cmLA | | Diam: 3.85 cmLA Major: 5.21 cmEDV(Teich): 75.96 mlIVSd: 1.39 cmLVIDd: 4.14 | | cmLVPWd: 1.18 cmLVOT Area: 3.16 [id number] Diam: 2.00 cm%FS: 26.85 %EF(Teich): | | 52.85 %ESV(Teich): 35.81 mlLVIDs: 3.02 cmSV(Teich): 40.14 mlRA Major: 5.45 cmRV | | Major: 7.36 cmRVIDd: 2.99 cmLVEF MOD A2C: 70.15 %SV MOD A2C: 72.22 mlLVEF MOD | | A4C: 62.38 %SV MOD A4C: 61.69 mlEF Biplane: 66.75 %LVEDV MOD BP: 105.61 mlLVESV | | MOD BP: 35.10 mlLVEDV MOD A2C: 102.96 mlLVLd A2C: 7.04 cmLVEDV MOD A4C: 98.89 | | mlLVLd A4C: 7.77 cmLVESV MOD A2C: 30.73 mlLVLs A2C: 5.53 cmLVESV MOD A4C: 37.19 | | mlLVLs A4C: 5.99 cmLAESV(A-L): 84.95 mlLAESV Index (A-L): 32.42 ml/m2LAAs A2C: | | 21.37 [id number] A-L A2C: 73.73 mlLALs A2C: 5.26 cmLAAs A4C: 24.63 [id number] A-L A4C: | | 95.79 mlLALs A4C: 5.37 cmRAAs: 21.57 [id number] A-L: 68.54 mlRAESV MOD: 63.21 | | mlRALs: 5.76 cmTAPSE: 1.68 cmAV maxP.68 mmHgAV meanP.98 mmHgAV Vmax: | | 1.19 m/Edwin Vmean: 0.83 m/Edwin VTI: 23.45 cmAVA Vmax: 2.32 cm2AVA (VTI): 2.48 | | [id number] Vmax: 0.00 cm2/m2AVAI (VTI): 0.00 cm2/m2LVOT maxP.06 mmHgLVOT meanPG: | | 1.76 mmHgLVSI Dopp: 22.26 ml/m2LVSV Dopp: 58.32 mlLVOT Vmax: 0.87 m/sLVOT Vmean: | | 0.63 m/sLVOT VTI: 18.40 cmMV A Gregg: 0.03 m/sMV DecT: 185.80 msMV E Gregg: 1.40 | | m/sMV E/A Ratio: 37.8 MV PHT: 53.88 msMVA By PHT: 4.08 cm2MV maxP.71 mmHgMV | | meanP.22 mmHgMV Vmax: 1.78 m/sMV Vmean: 1.02 m/sMV VTI: 26.10 cmMVA (VTI): | | 2.23 [id number] e': 0.08 m/sSeptal E/e': 17.11 Lateral e': 0.08 m/sLateral E/e': | | 17.11 RAP: 5 mmHgRVSP: 22.03 mmHgTR maxP.03 mmHgTR Vmax: 2.06 | | m/sSonographer: Authenticated by: Bassam Dickson Date/Time: 11-13-2017 | | 16:25:37IMPRESSION:1. This was a technically difficult study with suboptimal views due | | to patient's body habitus.2. Grossly normal LV size and systolic function. Unable to | | comment on regional wall motion.3. There is no pericardial effusion. | |Ao Diam: 3.27 cm | |LA Diam: 3.85 cm | |LA Major: 5.21 cm | |EDV(Teich): 75.96 ml | |IVSd: 1.39 cm | |LVIDd: 4.14 cm | |LVPWd: 1.18 cm | |LVOT Area: 3.16 cm2 | |LVOT Diam: 2.00 cm | |%FS: 26.85 % | |EF(Teich): 52.85 % | |ESV(Teich): 35.81 ml | |LVIDs: 3.02 cm | |SV(Teich): 40.14 ml | |RA Major: 5.45 cm | |RV Major: 7.36 cm | |RVIDd: 2.99 cm | |LVEF MOD A2C: 70.15 % | |SV MOD A2C: 72.22 ml | |LVEF MOD A4C: 62.38 % | |SV MOD A4C: 61.69 ml | |EF Biplane: 66.75 % | |LVEDV MOD BP: 105.61 ml | |LVESV MOD BP: 35.10 ml | |LVEDV MOD A2C: 102.96 ml | |LVLd A2C: 7.04 cm | |LVEDV MOD A4C: 98.89 ml | |LVLd A4C: 7.77 cm | |LVESV MOD A2C: 30.73 ml | |LVLs A2C: 5.53 cm | |LVESV MOD A4C: 37.19 ml | |LVLs A4C: 5.99 cm | |LAESV(A-L): 84.95 ml | |LAESV Index (A-L): 32.42 ml/m2 | |LAAs A2C: 21.37 cm2 | |LAESV A-L A2C: 73.73 ml | |LALs A2C: 5.26 cm | |LAAs A4C: 24.63 cm2 | |LAESV A-L A4C: 95.79 ml | |LALs A4C: 5.37 cm | |RAAs: 21.57 cm2 | |RAESV A-L: 68.54 ml | |RAESV MOD: 63.21 ml | |RALs: 5.76 cm | |TAPSE: 1.68 cm | |AV maxP.68 mmHg | |AV meanP.98 mmHg | |AV Vmax: 1.19 m/s | |AV Vmean: 0.83 m/s | |AV VTI: 23.45 cm | |MIKHAIL Vmax: 2.32 cm2 | |MIKHAIL (VTI): 2.48 cm2 | |AVAI Vmax: 0.00 cm2/m2 | |AVAI (VTI): 0.00 cm2/m2 | |LVOT maxP.06 mmHg | |LVOT meanP.76 mmHg | |LVSI Dopp: 22.26 ml/m2 | |LVSV Dopp: 58.32 ml | |LVOT Vmax: 0.87 m/s | |LVOT Vmean: 0.63 m/s | |LVOT VTI: 18.40 cm | |MV A Gregg: 0.03 m/s | |MV DecT: 185.80 ms | |MV E Gregg: 1.40 m/s | |MV E/A Ratio: 37.8 | |MV PHT: 53.88 ms | |MVA By PHT: 4.08 cm2 | |MV maxP.71 mmHg | |MV meanP.22 mmHg | |MV Vmax: 1.78 m/s | |MV Vmean: 1.02 m/s | |MV VTI: 26.10 cm | |MVA (VTI): 2.23 cm2 | |Septal e': 0.08 m/s | |Septal E/e': 17.11 | |Lateral e': 0.08 m/s | |Lateral E/e': 17.11 | |RAP: 5 mmHg | |RVSP: 22.03 mmHg | |TR maxP.03 mmHg | |TR Vmax: 2.06 m/s | | | |Director Of Placement: | |Authenticated by: Bassam Hernandez | |Report Date/Time: 11-13-2017 16:25:37 | | | |IMPRESSION: | |1. This was a technically difficult study with suboptimal views due to patient's body habit us. | |2. Grossly normal LV size and systolic function. Unable to comment on regional wall motion. | |3. There is no pericardial effusion. | + ----+ + + + + + | Performing | Address | City/State/[facility] | Phone Number | | Organization | | | | + + + + + | [facility] | [address] | [place] [address] | | + + + + + in this encounter Visit Diagnoses + + | Diagnosis | + + | Edema, unspecified type | + +"
--- OUTSIDE RECORDS SUMMARY | ~2018-01-24 | XMS | Clinical Summary ---
Demographics + + + | Address | [address] | | | [place] [address] | + + + | Home Phone | | + + + | Preferred Language | Unknown | + + + | Marital Status | Single | + + + | Temple Affiliation | Unknown | + + + | Race | Unknown | + + + | Ethnic Group | Unknown | + + + Author + + + | Author | [facility] | + + + | Organization | [facility] | + + + | Address | Unknown | + + + | Phone | Unavailable | + + + Support + + +---------+ + | Name | Relationship | Address | Phone | + + +---------+ + | An Carlin | ECON | , [place] | | + + +---------+ + Care Team Providers + +------+ + | Care Enologist Name | Role | Phone | + [...] | | + + + +---------+------+------+-------+ | Desvenlafaxine | Take 1 tablet by | | | | | Activ | | Succinate ER 25 MG | mouth every morning. | | | | | e | | TB24 | | | | [...] | | + + + +---------+------+------+-------+ | traZODone | Take 50 mg by mouth | | | | | Activ | | (DESYREL) 50 MG | nightly as needed | | | | | e | | tablet | for Sleep. ONE HALF | | | | | | | | TO FULL TABLET PER | | | | | | | | DOSE | | | | | | + + + +---------+------+------+-------+ | levothyroxine | Take 75 mcg by mouth | | | | | Activ | | (SYNTHROID) 75 MCG | every [...] + + +---------+------+------+-------+ | atorvastatin | Take 10 mg by [...] e | + + + +---------+------+------+-------+ | | Take 1-2 tablets by | | | | 08/2 | Disco | | HYDROcodone-acetamin | mouth every 4 (four) | | | | 1/20 | ntinu | | ophen (NORCO) 5-325 | hours as needed. | | | | 18 | ed | | MG per tablet | | | | | | | + + + +---------+------+------+-------+ | carvedilol (COREG) | Take 50 mg by mouth | | | | 08/2 | Disco | | 25 MG tablet | 2 (two) times daily | | | | 1/20 | ntinu | | | with meals. | | | | 18 | ed | + + + +---------+------+------+-------+ | estradiol | Take 2 mg by mouth | | | | 08/2 | Disco | | (ESTRACE) 2 MG | daily. | | | | 1/20 | ntinu | | tablet | | | | | 18 | ed | + + + +---------+------+------+-------+ | thyroid (ARMOUR) | Take 60 mg by mouth | | | | 08/2 | Disco | | 60 MG tablet | every morning before | | | | 1/20 | ntinu | | | breakfast. | | | | 18 | ed | + + + +---------+------+------+-------+ | Pramipexole | Take 0.375 mg by | | | | 08/2 | Disco | | Dihydrochloride | mouth 2 (two) times | | | | 1/20 | ntinu | | (MIRAPEX ER) 0.375 | daily. | | | | 18 | ed | | MG TB24 | | | | | | | + + + +---------+------+------+-------+ | vilazodone | Take 40 mg by mouth | | | | 08/2 | Disco | | (VIIBRYD) 40 MG | nightly. | | | | 1/20 | ntinu | | tablet | | | | | 18 | ed | + + + +---------+------+------+-------+ | fluticasone | Inhale 2 puffs into | | | | 08/2 | Disco | | (FLOVENT HFA) 220 | the lungs 2 (two) | | | | 1/20 | ntinu | | MCG/ACT inhaler | times daily. Rinse | | | | 18 | ed | | | mouth after use | | | | | | + + + +---------+------+------+-------+ | furosemide (LASIX) | Take 80 mg by mouth | | | | 08/2 | Disco | | 80 MG tablet | as needed. | | | | 1/20 | ntinu | | | | | | | 18 | ed | + + + +---------+------+------+-------+ | cloNIDine | Take 0.1 mg by mouth | | | | 08/2 | Disco | | (CATAPRES) 0.1 MG | nightly. | | | | 1/20 | ntinu | | tablet | | | | | 18 | ed | + + + +---------+------+------+-------+ | ALPRAZolam (XANAX) | Take 0.5 mg by mouth | | | | 08/2 | Disco | | 0.5 MG tablet | 3 (three) times | | | | 1/20 | ntinu | | | daily as needed. | | | | 18 | ed | + + + +---------+------+------+-------+ | clonazePAM | Take 2 mg by mouth | | | | 08/2 | Disco | | (KLONOPIN) 2 MG | nightly. | | | | 1/20 | ntinu | | tablet | | | | | 18 | ed | + + + +---------+------+------+-------+ | lamotrigine | Take 300 mg by mouth | | | | 08/2 | Disco | | (LAMICTAL) 200 MG | nightly. | | | | 1/20 | ntinu | | tablet | | | | | 18 | ed | + + + +---------+------+------+-------+ | | Take 1 tablet by | | | | 08/2 | Disco | | a-mgslcvhwlugz-o3-b6 | mouth daily. 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 | Deficiency Disease [...] + + | 01/19/ | Hospital | | Yonatan Gonzalez | Arrived | | 2017 | Encounter | | [facility] [place] | | +--------+ + + + + | 11/04/ | Ancillary | | Iqra Peralta MD | Edema, unspecified | | 2017 | Procedure | | | type | +--------+ + + + + | 11/04/ | Ancillary | | Iqra Peralta MD | Edema, unspecified | | 2018 | Orders | | | type | +--------+ + + + + from [...] PM PDT | + + + + Plan of Treatment +--------+ + + + + | Date | Type | Specialty | Care Team | Description | +--------+ + + + + | 01/26/ | Surgery | | Yonatan Gonzalez | DENTAL - EXTRACTIONS | | 2018 | | | W, DDS [address] | - TEETH | | | | | [place] | | | | | | [address] | | | | | | | | +--------+ + + + + | 01/26/ | Procedure | | | | | 2017 | Pass | | | | +--------+ + + + + | 01/26/ | Hospital | | Yonatan Gonzalez | | | 2018 | Encounter | | W, DDS [address] | | | | | | [place] | | | | | | [address] | | | | | | | | +--------+ + + + + Procedures + +--------+ [...] + + from Last 3 Months Results EKG STANDARD 12 LEAD (01/19/2018 5:59 [...] QTC Calculation | 450 | ms | [facility] EKG | | (Bezet) | | | | + + + + + | Calculated R [place] | -2 | degrees | [facility] E[facility] | + + + + + | Calculated T [place] | 28 | degrees | [facility] EKG | + + + + + | Diagnosis | Atrial fibrillation with | | [facility] EKG | | | rapid ventricular | [...] | + + + + + | [facility] | [address] | [place] [address] | | + + + + + MRSA by PCR (01/19/2018 5:50 PM) + + + + + | Component | Value | Ref Range | Performed At | + + + + + | SOURCE | NARES(NOSE) | | [facility] | + + + + + | MRSA PCR | NEGATIVEComment: Testing | NEGATIVE | [facility] | | | performed at [facility];[address] | | | | | [address];[place] | | | | | [address] | | | + + + + + + + | Specimen | + + | Nasopharyngeal - | | Nares(Nose) | + + + + + + + | Performing | Address | City/State/Zipcode | Phone Number | | Organization | | | | + + + + + | [facility] | [address] | [place] [address] | | + + + + + ECHO outside interpretation standard (11/04/2017 1:17 PM) [...] DEANN JOSÉ Date of : 1970 | [facility] | | Performing Physician: Bassam Hernandez | [...] | maxP.03 mmHg TR Vmax: 2.06 m/s Feed In Worker: | | | Authenticated by: Bassam Hernandez Report Date/Time: 11-13-2017 | | | 16:25:37 | | + + + + ----+ | Procedure Note | + ----+ | Faizan, Rad Results In - 11/13/2017 4:30 PM PDT Patient Name: Jade JOSÉ of | | : 1970Accession: [id number] Physician: Bassam | | Mary INDICATIONS------ | | -----EdemaCONCLUSIONS 1. This was [...] | | cmLVPWd: 1.18 cmLVOT Area: 3.16 ms8FDQE Diam: 2.00 cm%FS: 26.85 %EF(Teich): | | [...] (A-L): 32.42 ml/m2LAAs A2C: | | 21.37 ax2UZWSL A-L A2C: 73.73 mlLALs A2C: 5.26 cmLAAs A4C: 24.63 px2WGSCN A-L A4C: | | 95.79 mlLALs A4C: 5.37 cmRAAs: 21.57 py5CSRPK A-L: 68.54 mlRAESV MOD: 63.21 | | mlRALs: 5.76 cmTAPSE: 1.68 cmAV maxP.68 mmHgAV meanP.98 mmHgAV Vmax: | | 1.19 m/Edwin Vmean: 0.83 m/Edwin VTI: 23.45 cmAVA Vmax: 2.32 cm2AVA (VTI): 2.48 | | kg3VPGK Vmax: 0.00 cm2/m2AVAI (VTI): 0.00 cm2/m2LVOT maxP.06 [...] VTI: 26.10 cmMVA (VTI): | | 2.23 bh1Ugsvaf e': 0.08 m/sSeptal E/e': 17.11 Lateral e': [...] |TR Vmax: 2.06 m/s | | | |Feed In Worker: | |Authenticated by: Bassam Maamemary | |Report Date/Time: 11-13-2017 16:25:37 | | [...] | + + + + + | [facility] | [address] | [place] [address] | | + + + + + from Last 3 Months Insurance + +--------+ +------+-------+ + | Payer | Benefi | Subscriber | Type | Phone | Address | | | t Plan | ID | | | | | | / | | | | | | | Group | | | | | + +--------+ +------+-------+ + | MEDICAID | [place] | [id number] | | | [address] | | | N | | | | [place] | | | [place] | | | | [address] | | | CELERY WRAPPER | | | | | + +--------+ +------+-------+ + + +--------+ +--------+ + + | Guarantor Name | Accoun | Relation to | Date | Phone | Billing Address | | | t Type | Patient | of | | | | | | | | | | + +--------+ +--------+ + + | DEANN JOSÉ | Person | Self | [birth year] Home: | [address] | | | al/Fam | | 1971 | [phone] [place] | | | kevin | | | [phone] | [phone] | + +--------+ +--------+ + +
--- OUTSIDE RECORDS SUMMARY | ~2018-01-24 | XMS | Encounter Summary ---
Demographics + + + | Address | [address] | | | [place] [address] | + + + | Home Phone | | + + + | Preferred Language | Unknown | + + + | Marital Status | Single | + + + | Mandaeism Affiliation | NON | + + + [...] Team Providers + +------+ + | Care Financial Planning Consultant Name | Role | Phone | + +------+ + | Bassam Ross DO | PCP | | + +------+ + Encounter Details +--------+ + + + + | Date | Type | Department | Care Team | Description | +--------+ + + + + | 01/18/ | Abstract | Digestive Health | Clinic, Surgery | | | 2018 | | Center at [facility] 6th | | | | | | Floor [address] | | | | | | Arleen Mailcode: CH4[facility] | | | | | | [facility] | | | | | | and Healing, 6th | | | | | | floor [place], [place] | | | | | | [address] | | | | | | [phone] | | | +--------+ + + + [...] | | 2017 | Visit | | [address] | | | | | | [place], [place] | | | | | | [address] | | | | | | [phone] | | | | | | | | +--------+---------+ + + + | 07/09/ | Office | Cardiology | Juan Antonio Mclaughlin, | | | 2019 | Visit | | [address] | | | | | | [place], [place] | | | | | | [address] | | | | | | [phone] | | | | | | | | +--------+---------+ + + + as of this encounter Visit Diagnoses Not on filein this encounter"
--- OUTSIDE RECORDS SUMMARY | ~2018-01-24 | XMS | Encounter Summary ---
Demographics + + + | Address | [address] | | | [place] [address] | + + + | Home Phone | | + + + | Preferred Language | Unknown | + + + | Marital Status | Single | + + + | Advent Affiliation | 1013 | + + + | Race | Unknown | + + + | Ethnic Group | Unknown | + + + Author + + + | Author | [facility] | | | and [place] | + + + | Organization | [facility] | | | and [place] | [...] [place] | | | | | [address] | | + + + + + Care Team Providers + +------+ + | Care Can Closing Machine Operator Name | Role | Phone | + +------+ + | Iqra Peralta MD | PCP | Unavailable | + +------+ + Encounter Details +--------+ + + + + | Date | Type | Department | Care Team | Description | +--------+ + + + + | 01/08/ | Orders Only | [facility] | Provider, | Proteinuria, | | 2018 | | NEPHROLOGY [address] | [address] | unspecified type | | | | [address] | [address] | (Primary Dx) | | | | [place], [place] | [place] [address] | | | | | [address] | | | | | | [phone] | | | +--------+ + + + [...] + as of this encounter Progress Notes Mackenzie Saldana RN - 01/08/2018 1423 PDTLabs for nephrology appt on 03/15/18 sent to David garvin. Renal Ultrasound to be ordered by Dr. Peralta. in this encounter Plan of Treatment +--------+---------+ + + + | Date | Type | Specialty | Care Team | Description | +--------+---------+ + + + | 03/15/ | Office | Nephrology | Sangeetha, | | | 2017 | Visit | | [address]IME [address] | | | | | | [address] | | | | | | [address] [place] | | | | | | [id number] | | | | | | | | +--------+---------+ + + + | 05/12/ | Office | Pulmonology | Adolfo Zazueta, | | | 2017 | Visit | | MD [address] | | | | | | [place] | | | | | | [place] | | | | | | [address] | | | | | | | | +--------+---------+ + + + | 07/27/ | Office | Sleep Medicine | Jermaine Fairchild | | | 2018 | Visit | | MD [address] | | | | | | [place] | | | | | | [place] [address] | | | | | | [phone] | | | | | | | | +--------+---------+ + + + + +--------+ + + | Name | Priori | Associated Diagnoses | Order Schedule | | | ty | | | + +--------+ + + | CBC with Differential | Routin | Proteinuria, | Expected: 03/08/2018 | | | e | unspecified type | (Approximate), | | | | | Expires: 01/09/2019 | + +--------+ + + | Renal Function Panel | Routin | Proteinuria, | Expected: 03/08/2018 | | | e | unspecified type | (Approximate), | | | | | Expires: 01/09/2019 | + +--------+ + + | Protein/Creatinine Ratio, Urine | Routin | Proteinuria, | Expected: 03/08/2018 | | | e | unspecified type | (Approximate), | | | | | Expires: 01/09/2019 | + +--------+ + + | Urinalysis With Microscopic | Routin | Proteinuria, | Expected: | | | e | unspecified type | 03/08/2018, Expires: | | | | | 01/08/2019 | + +--------+ + + | Vitamin D, Deficiency Screen | Routin | Proteinuria, | Expected: 03/08/2018 | | (25-Hydroxy) | e | unspecified type | (Approximate), | | | | | Expires: 01/09/2019 | + +--------+ + + as of this encounter Visit Diagnoses + + | Diagnosis | + + | Proteinuria, unspecified type - Primary | + +"
--- OUTSIDE RECORDS SUMMARY | ~2018-01-24 | XMS | Encounter Summary ---
Demographics + + + | Address | [address] | | | [place] [address] | + + + | Home Phone | | + + + | Preferred Language | Unknown | + + + | Marital Status | Single | + + + | Jain Affiliation | 1013 | + + + | Race | Unknown | + + + | Ethnic Group | Unknown | + + + Author + + + | Author | [facility] | | | and [place] | + + + | Organization | [facility] | | | and [place] | [...] [place] | | | | | [address] | | + + + + + Care Team Providers + +------+ + | Care J2Ee Software Engineer Name | Role | Phone | + +------+ + | Iqra Peralta MD | PCP | Unavailable | + +------+ + Encounter Details +--------+ + + + + | Date | Type | Department | Care Team | Description | +--------+ + + + + | 10/27/ | Imaging | [facility] | Herbie, | | | 2018 | Exam | [facility] | [address] | | | | | IMAGING | [address] | | | | | [phone] | [place] [address] | | +--------+ + + + + [...] | | | | | [address] [place] | | | | | | [address] [place] | | | | | | [address] | | | | | | | | +--------+---------+ + + + | 05/12/ | Office | Pulmonology | Adolfo Zazueta, | | | 2017 | Visit | | MD Jac Tong | | | | | | [place] | | | | | | [place] | | | | | | [address] | | | | | | | | +--------+---------+ + + + | 07/27/ | Office | Sleep Medicine | Jermaine Fairchild | | | 2018 | Visit | | MD Jac [address]ous[address] | | | | | | [place] | | | | | | [place] [address] | | | | | | [phone] | | | | | | | [...] | | 3 VW | e | 1350 PDT | | procedure are in the | | | | | | results section. | + +--------+ + + + in this encounter Results XR Lumbar Spine 2 or 3 Vw (10/27/2017 1350) + + + | Narrative | Performed [...] | | | + +---------+ + + in this encounter Visit Diagnoses Not on filein this encounter"
--- OUTSIDE RECORDS SUMMARY | ~2018-01-24 | XMS | Encounter Summary ---
Demographics + + + | Address | [address] | | | [place] [address] | + + + | Home Phone | | + + + | Preferred Language | Unknown | + + + | Marital Status | Single | + + + | Adventism Affiliation | Unknown | + + + | Race | Unknown | + + + | Ethnic Group | Unknown | + + + Author + + + | Author | [facility] | + + + | Organization | [facility] | + + + | Address | Unknown | + + + | Phone | Unavailable | + + + Support + + +---------+ + | Name | Relationship | Address | Phone | + + +---------+ + | An Carlin | ECON | , [place] | | + + +---------+ + Care Team Providers + +------+ + | Care Inspector Glass Or Mirror Name | Role | Phone | + +------+ + | Iqra Peralta MD | PCP | | + +------+ + Encounter Details +--------+ + + + + | Date | Type | Department | Care Team | Description | +--------+ + + + + | 11/04/ | Ancillary | [facility] | Iqra Peralta MD | Edema, unspecified | | 2018 | Orders | ECHO | [address] | type | | | | | [place] | | | | | | [address] | | | | | | | [...] 01/26/ | Surgery | General Surgery | Yonatna Gonzalez | DENTAL - EXTRACTIONS | | 2017 | | | ATUL [place] [address] | - TEETH | | | | | [place], [place] | | | | | | [address] | | | | | | | | +--------+ + + + + | 01/26/ | Procedure | General Surgery | | | | 2017 | Pass | | | | +--------+ + + + + | 01/26/ | Hospital | General Surgery | Yonatan Gonzalez | | | 2017 | Encounter | | Ross, ATUL [address] | | | | | | [place], [place] | | | | | | [address] | | | | | | | | +--------+ + + + + as of this encounter Results ECHO outside interpretation standard [...] DEANN JOSÉ Date of : 1970 | [facility] | | Performing Physician: Bassam Hernandez | [...] | maxP.03 mmHg TR Vmax: 2.06 m/s Technical Solution Architect: | | | Authenticated by: Bassam Hernandez Report Date/Time: 11-13-2017 | | | 16:25:37 | | + + + + ----+ | Procedure Note | + ----+ | Tommy Gloria Results In 11/13/2017 4:30 PM PDT Patient Name: Jade JOSÉ of | | : 1970Accession: [id number] Physician: Bassam | | Mary INDICATIONS------ | [...] | | cmLVPWd: 1.18 cmLVOT Area: 3.16 pm3VIMI Diam: 2.00 cm%FS: 26.85 %EF(Teich): | | [...] (A-L): 32.42 ml/m2LAAs A2C: | | 21.37 gn3XZPTD A-L A2C: 73.73 mlLALs A2C: 5.26 cmLAAs A4C: 24.63 gh3DCLVW A-L A4C: | | 95.79 mlLALs A4C: 5.37 cmRAAs: 21.57 sv5FKXER A-L: 68.54 mlRAESV MOD: 63.21 | | mlRALs: 5.76 cmTAPSE: 1.68 cmAV maxP.68 mmHgAV meanP.98 mmHgAV Vmax: | | 1.19 m/Edwin Vmean: 0.83 m/Edwin VTI: 23.45 cmAVA Vmax: 2.32 cm2AVA (VTI): 2.48 | | xv2TKBF Vmax: 0.00 cm2/m2AVAI (VTI): 0.00 cm2/m2LVOT maxP.06 [...] VTI: 26.10 cmMVA (VTI): | | 2.23 ke4Qeddxn e': 0.08 m/sSeptal E/e': 17.11 Lateral e': [...] |TR Vmax: 2.06 m/s | | | |Technical Solution Architect: | |Authenticated by: Bassam Hernandez | |Report [...] | + + + + + | [facility] | [address] | [place] [address] | | + + + + + in this encounter Visit Diagnoses + + | Diagnosis | + + | Edema, unspecified type | + +"
--- OUTSIDE RECORDS SUMMARY | ~2018-01-24 | XMS | Encounter Summary ---
Demographics + + + | Address | [address] | | | [place] [address] | + + + | Home Phone | | + + + | Preferred Language | Unknown | + + + | Marital Status | Single | + + + | Nondenominational Affiliation | 1013 | + + + | Race | Unknown | + + + | Ethnic Group | Unknown | + + + Author + + + | Author | [facility] | | | and [place] | + + + | Organization | [facility] | | | and [place] [...] [place] | | | | | [address] | | + + + + + Care Team Providers + +------+ + | Care Flavor Maker Name | Role | Phone | [...] [address] | | | | | [phone] | [place] [address] | | +--------+ + + + + [...] [place] | | | | | | [address] | | | | | | | | +--------+---------+ + + + | 05/12/ | Office | Pulmonology | Adolfo Zazueta, | | | 2017 | Visit | | MD Jac Tong | | | | | | [place], [address] | | | | | | [place] | | | | | | [address] | | | | | | | | +--------+---------+ + + + | 07/27/ | Office | Sleep Medicine | Jermaine Fairchild | | | 2018 | Visit | | MD Jac Sousa | | | | | | [place] | | | | | | [place] [address] | | | | | | [phone] | | | | | | | [...]
--- OUTSIDE RECORDS SUMMARY | ~2018-01-24 | XMS | Encounter Summary ---
Demographics + + + | Address | [address] | | | [place] [address] | + + + | Home Phone [...] Team Providers + +------+ + | Care Milk Condenser Name | Role | Phone | + +------+ + | Bassam Ross DO | PCP | | + +------+ + Reason for Visit + + + | Reason | Comments | + + + | Manage medication | Medication list | | treatment | | + + + Encounter Details +--------+ + + + + | Date | Type | Department | Care Team | Description | +--------+ + + + + | 01/08/ | Abstract | Cardiology in | Juan Antonio Mclaughlin, | Manage medication | | 2018 | | Digestive Health | [address] | treatment | | | | Center at [facility] [address] [place], [place] | (Medication list) | | | | [address] | [address] | | | | | for Health and | [phone] | | | | | Healing [facility] Floor | | | | | | [place], [place] | | | | | | [address] | | | | | | [phone] | | | +--------+ + + + [...] [address] | | | | | | [place] | | | | | | [address] | | | | | | [phone] | | | | | | | | +--------+---------+ + + + | 07/09/ | Office | Cardiology | Juan Antonio Mclaughlin, | | | 2018 | Visit | | [address] | | | | | | [place], [place] | | | | | | [address] | | | | | | [phone] | | | | | | | | +--------+---------+ + + + as of this encounter Visit Diagnoses Not on filein this encounter"
--- OUTSIDE RECORDS SUMMARY | ~2018-01-24 | XMS | Encounter Summary ---
Demographics + + + | Address | [address] | | | [place] [address] | + + + | Home Phone | | + + + | Preferred Language | Unknown | + + + | Marital Status | Single | + + + | Judaism Affiliation | NON | + + + | Race | White | + + + | Ethnic Group | Not or | + + + Author + + + | Author | [facility] | + + + | Organization | [facility] | + + + | Address | Unknown | + + + | Phone | Unavailable | + + + Support + + +---------+ + | Name | Relationship | Address | Phone | + + +---------+ + | Jordan Aguirre | ECON | Unknown | Unavailable | + + +---------+ + Care Team Providers + +------+ + | Care Human Resources Analyst Name | Role | Phone | [...] | 2018 | | Digestive Health | [address] | treatment | | | | Center at [facility] [address] [place], [place] | (Medication list) | | | | [address] | [address] | | | | | for Health and | [phone] | | | | | Healing [facility] Floor | | | | | | [place], [place] | | | | | | [address] | | | | | | [phone] | | | +--------+ + + + [...] [address] | | | | | | [place] | | | | | | [address] | | | | | | [phone] | | | | | | | | +--------+---------+ + + + | 07/09/ | Office | Cardiology | Juan Antonio Mclaughlin, | | | 2018 | Visit | | [address] | | | | | | [place], [place] | | | | | | [address] | | | | | | [phone] | | | | | | | | +--------+---------+ + + + as of this encounter Visit Diagnoses Not on filein this encounter"
--- OUTSIDE RECORDS SUMMARY | ~2018-01-24 | XMS | Encounter Summary ---
Demographics + + + | Address | [address] | | | [place] [address] | + + + | Home Phone | | + + + | Preferred Language | Unknown | + + + | Marital Status | Single | + + + | Religion Affiliation | 1013 | + + + | Race | Unknown | + + + | Ethnic Group | Unknown | + + + Author + + + | Author | [facility] | | | and [place] | + + + | Organization | [facility] | | | and [...] [place] | | | | | [address] | | + + + + + Care Team Providers + +------+ + | Care Excavator Operator Name | Role | Phone | + +------+ + | Iqra Peralta MD | PCP | Unavailable | + +------+ + Encounter Details +--------+ + + + + | Date | Type | Department | Care Team | Description | +--------+ + + + + | 01/04/ | Abstract | [facility] [place] | Anita Lu W, | | | 2017 | | NEPHROLOGY [address] | [address] | | | | | [address] | [address] [place] | | | | | [place], [place] | [place] [address] | | | | | [id number] | [phone] | | | | | [phone] | | | +--------+ + + + [...] [place] | | | | | | [address] | | | | | | | | +--------+---------+ + + + | 05/12/ | Office | Pulmonology | Adolfo Zazueta, | | | 2017 | Visit | | MD Jac Tong | | | | | | [place], [address] | | | | | | [place] | | | | | | [address] | | | | | | | | +--------+---------+ + + + | 07/27/ | Office | Sleep Medicine | Jermaine Fairchild | | | 2018 | Visit | | MD Jac Sousa | | | | | | [place] | | | | | | [place] [address] | | | | | | [phone] | | | | | | | [...] | | VITAMIN D, | e | 0000 PDT | | procedure are in the | | 25-HYDROXY | | | | results section. | + +--------+ + + + | EXTERNAL LAB: IRON | Routin | 10/21/2017 | | Results for this | | TOTAL | e | 0000 PDT | | procedure are in the | | | | | | results section. | + +--------+ + + + | EXTERNAL LAB: IRON | Routin | 10/21/2017 | | Results for this | | SATURATION | e | 0000 PDT | | procedure are in the | | | | | | results section. | + +--------+ + + + | EXTERNAL LAB: IRON | Routin | 10/21/2017 | | Results for this | | BINDING CAPACITY | e | 0000 PDT | | procedure are in the | | | | | | results section. | + +--------+ + + + | EXTERNAL LAB: | Routin | 10/21/2017 | | Results for this | | FERRITIN | e | 0000 PDT | | procedure are in the | | | | | | results section. | + +--------+ + + + | EXTERNAL LAB: CBC | Routin | 10/21/2017 | | Results for this | | | e | 0000 PDT | | procedure are in the | | | | | | results section. | + +--------+ + + + | EXTERNAL LAB: | Routin | 10/21/2017 | | Results for this | | TRIGLYCERIDES | e | 0000 PDT | | procedure are in the | | | | | | results section. | + +--------+ + + + | EXTERNAL LAB: | Routin | 10/21/2017 | | Results for this | | CHOLESTEROL, HDL | e | 0000 PDT | | procedure are in the | | | | | | results section. | + +--------+ + + + | EXTERNAL LAB: | Routin | 10/21/2017 | | Results for this | | CHOLESTEROL, TOTAL | e | 0000 PDT | | procedure are in the | | | | | | results section. | + +--------+ + + + | EXTERNAL LAB: | Routin | 10/21/2017 | | Results for this | | CHOLESTEROL, LDL | e | 0000 PDT | | procedure are in the | | | | | | results section. | + +--------+ + + + | EXTERNAL LAB: | Routin | 10/21/2017 | | Results for this | | MICROALBUMIN/CREATIN | e | 0000 PDT | | procedure are in the | | INE RATIO, URINE | | | | results section. | + +--------+ + + + | EXTERNAL LAB: BUN | Routin | 06/06/2017 | | Results for this | | | e | 0000 PST | | procedure are in the | | | | | | results section. | + +--------+ + + + | EXTERNAL LAB: | Routin | 06/06/2017 | | Results for this | | GLUCOSE | e | 0000 PST | | procedure are in the | | | | | | results section. | + +--------+ + + + | EXTERNAL LAB: ALT | Routin | 06/06/2017 | | Results for this | | | e | 0000 PST | | procedure are in the | | | | | | results section. | + +--------+ + + + | EXTERNAL LAB: AST | Routin | 06/06/2017 | | Results for this | | | e | 0000 PST | | procedure are in the | | | | | | results section. | + +--------+ + + + | EXTERNAL LAB: | Routin | 06/06/2017 | | Results for this | | ALKALINE PHOSPHATASE | e | 0000 PST | | procedure are in the | | | | | | results section. | + +--------+ + + + | EXTERNAL LAB: | Routin | 06/06/2017 | | Results for this | | BILIRUBIN, TOTAL | e | 0000 PST | | procedure are in the | | | | | | results section. | + +--------+ + + + | EXTERNAL LAB: | Routin | 06/06/2017 | | Results for this | | ALBUMIN | e | 0000 PST | | procedure are in the | | | | | | results section. | + +--------+ + + + | EXTERNAL LAB: | Routin | 06/06/2017 | | Results for this | | PROTEIN, TOTAL | e | 0000 PST | | procedure are in the | | | | | | results section. | + +--------+ + + + | EXTERNAL LAB: | Routin | 06/06/2017 | | Results for this | | CALCIUM | e | 0000 PST | | procedure are in the | | | | | | results section. | + +--------+ + + + | EXTERNAL LAB: CARBON | Routin | 06/06/2017 | | Results for this | | DIOXIDE | e | 0000 PST | | procedure are in the | | | | | | results section. | + +--------+ + + + | EXTERNAL LAB: | Routin | 06/06/2017 | | Results for this | | CHLORIDE | e | 0000 PST | | procedure are in the | | | | | | results section. | + +--------+ + + + | EXTERNAL LAB: | Routin | 06/06/2017 | | Results for this | | POTASSIUM | e | 0000 PST | | procedure are in the | | | | | | results section. | + +--------+ + + + | EXTERNAL LAB: SODIUM | Routin | 06/06/2017 | | Results for this | | | e | 0000 PST | | procedure are in the | | | | | | results section. | + +--------+ + + + | EXTERNAL LAB: CBC | Routin | 06/06/2017 | | Results for this | | | e | 0000 PST | | procedure are in the | | | | | | results section. | + +--------+ + + + | EXTERNAL LAB: EGFR | Routin | 06/06/2017 | | Results for this | | | e | 0000 PST | | procedure are in the | | | | | | results section. | + +--------+ + + + | EXTERNAL LAB: | Routin | 06/06/2017 | | Results for this | | CREATININE | e | 0000 PST | | procedure are in the | | | | | | results section. | + +--------+ + + + | EXTERNAL LAB: BUN | Routin | 10/01/2016 | | Results for this | | | e | 0000 PDT | | procedure are in the | | | | | | results section. | + +--------+ + + + | EXTERNAL LAB: | Routin | 10/01/2016 | | Results for this | | GLUCOSE | e | 0000 PDT | | procedure are in the | | | | | | results section. | + +--------+ + + + | EXTERNAL LAB: ALT | Routin | 10/01/2016 | | Results for this | | | e | 0000 PDT | | procedure are in the | | | | | | results section. | + +--------+ + + + | EXTERNAL LAB: AST | Routin | 10/01/2016 | | Results for this | | | e | 0000 PDT | | procedure are in the | | | | | | results section. | + +--------+ + + + | EXTERNAL LAB: | Routin | 10/01/2016 | | Results for this | | ALKALINE PHOSPHATASE | e | 0000 PDT | | procedure are in the | | | | | | results section. | + +--------+ + + + | EXTERNAL LAB: | Routin | 10/01/2016 | | Results for this | | BILIRUBIN, TOTAL | e | 0000 PDT | | procedure are in the | | | | | | results section. | + +--------+ + + + | EXTERNAL LAB: | Routin | 10/01/2016 | | Results for this | | ALBUMIN | e | 0000 PDT | | procedure are in the | | | | | | results section. | + +--------+ + + + | EXTERNAL LAB: | Routin | 10/01/2016 | | Results for this | | PROTEIN, TOTAL | e | 0000 PDT | | procedure are in the | | | | | | results section. | + +--------+ + + + | EXTERNAL LAB: | Routin | 10/01/2016 | | Results for this | | CALCIUM | e | 0000 PDT | | procedure are in the | | | | | | results section. | + +--------+ + + + | EXTERNAL LAB: CARBON | Routin | 10/01/2016 | | Results for this | | DIOXIDE | e | 0000 PDT | | procedure are in the | | | | | | results section. | + +--------+ + + + | EXTERNAL LAB: | Routin | 10/01/2016 | | Results for this | | CHLORIDE | e | 0000 PDT | | procedure are in the | | | | | | results section. | + +--------+ + + + | EXTERNAL LAB: | Routin | 10/01/2016 | | Results for this | | POTASSIUM | e | 0000 PDT | | procedure are in the | | | | | | results section. | + +--------+ + + + | EXTERNAL LAB: SODIUM | Routin | 10/01/2016 | | Results for this | | | e | 0000 PDT | | procedure are in the | | | | | | results section. | + +--------+ + + + | EXTERNAL LAB: EGFR | Routin | 10/01/2016 | | Results for this | | | e | 0000 PDT | | procedure are in the | | | | | | results section. | + +--------+ + + + | EXTERNAL LAB: | Routin | 10/01/2016 | | Results for this | | CREATININE | e | 0000 PDT | | procedure are in the | | | | | | results section. | + +--------+ + + + | HEMOGLOBIN A1C | Routin | 10/01/2016 | | Results for this | | | e | 0000 PDT | | procedure are in the | | | | | | results section. | + +--------+ + + + | EXTERNAL LAB: BUN | Routin | 08/07/2016 | | Results for this | | | e | 0000 PST | | procedure are in the | | | | | | results section. | + +--------+ + + + | EXTERNAL LAB: | Routin | 08/07/2016 | | Results for this | | GLUCOSE | e | 0000 PST | | procedure are in the | | | | | | results section. | + +--------+ + + + | EXTERNAL LAB: ALT | Routin | 08/07/2016 | | Results for this | | | e | 0000 PST | | procedure are in the | | | | | | results section. | + +--------+ + + + | EXTERNAL LAB: AST | Routin | 08/07/2016 | | Results for this | | | e | 0000 PST | | procedure are in the | | | | | | results section. | + +--------+ + + + | EXTERNAL LAB: | Routin | 08/07/2016 | | Results for this | | ALKALINE PHOSPHATASE | e | 0000 PST | | procedure are in the | | | | | | results section. | + +--------+ + + + | EXTERNAL LAB: | Routin | 08/07/2016 | | Results for this | | BILIRUBIN, TOTAL | e | 0000 PST | | procedure are in the | | | | | | results section. | + +--------+ + + + | EXTERNAL LAB: | Routin | 08/07/2016 | | Results for this | | ALBUMIN | e | 0000 PST | | procedure are in the | | | | | | results section. | + +--------+ + + + | EXTERNAL LAB: | Routin | 08/07/2016 | | Results for this | | PROTEIN, TOTAL | e | 0000 PST | | procedure are in the | | | | | | results section. | + +--------+ + + + | EXTERNAL LAB: | Routin | 08/07/2016 | | Results for this | | CALCIUM | e | 0000 PST | | procedure are in the | | | | | | results section. | + +--------+ + + + | EXTERNAL LAB: CARBON | Routin | 08/07/2016 | | Results for this | | DIOXIDE | e | 0000 PST | | procedure are in the | | | | | | results section. | + +--------+ + + + | EXTERNAL LAB: | Routin | 08/07/2016 | | Results for this | | CHLORIDE | e | 0000 PST | | procedure are in the | | | | | | results section. | + +--------+ + + + | EXTERNAL LAB: | Routin | 08/07/2016 | | Results for this | | POTASSIUM | e | 0000 PST | | procedure are in the | | | | | | results section. | + +--------+ + + + | EXTERNAL LAB: SODIUM | Routin | 08/07/2016 | | Results for this | | | e | 0000 PST | | procedure are in the | | | | | | results section. | + +--------+ + + + | EXTERNAL LAB: CBC | Routin | 08/07/2016 | | Results for this | | | e | 0000 PST | | procedure are in the | | | | | | results section. | + +--------+ + + + | EXTERNAL LAB: EGFR | Routin | 08/07/2016 | | Results for this | | | e | 0000 PST | | procedure are in the | | | | | | results section. | + +--------+ + + + | EXTERNAL LAB: | Routin | 08/07/2016 | | Results for this | | CREATININE | e | 0000 PST | | procedure are in the | | | | | | results section. | + +--------+ + + + | EXTERNAL LAB: BUN | Routin | 12/04/2015 | | Results for this | | | e | 0000 PDT | | procedure are in the | | | | | | results section. | + +--------+ + + + | EXTERNAL LAB: | Routin | 12/04/2015 | | Results for this | | GLUCOSE | e | 0000 PDT | | procedure are in the | | | | | | results section. | + +--------+ + + + | EXTERNAL LAB: | Routin | 12/04/2015 | | Results for this | | CALCIUM | e | 0000 PDT | | procedure are in the | | | | | | results section. | + +--------+ + + + | EXTERNAL LAB: CARBON | Routin | 12/04/2015 | | Results for this | | DIOXIDE | e | 0000 PDT | | procedure are in the | | | | | | results section. | + +--------+ + + + | EXTERNAL LAB: | Routin | 12/04/2015 | | Results for this | | CHLORIDE | e | 0000 PDT | | procedure are in the | | | | | | results section. | + +--------+ + + + | EXTERNAL LAB: | Routin | 12/04/2015 | | Results for this | | POTASSIUM | e | 0000 PDT | | procedure are in the | | | | | | results section. | + +--------+ + + + | EXTERNAL LAB: SODIUM | Routin | 12/04/2015 | | Results for this | | | e | 0000 PDT | | procedure are in the | | | | | | results section. | + +--------+ + + + | EXTERNAL LAB: CBC | Routin | 12/04/2015 | | Results for this | | | e | 0000 PDT | | procedure are in the | | | | | | results section. | + +--------+ + + + | EXTERNAL LAB: EGFR | Routin | 12/04/2015 | | Results for this | | | e | 0000 PDT | | procedure are in the | | | | | | results section. | + +--------+ + + + | EXTERNAL LAB: | Routin | 12/04/2015 | | Results for this | | CREATININE | e | 0000 PDT | | procedure are in the | | | | | | results section. | + +--------+ + + + in this encounter Results External Lab: Vitamin D, 25-Hydroxy (10/21/2017) + +-------+ + + | Component | Value | Ref Range | Performed At | + +-------+ + + | Vitamin D, | 37 | | | | 25-Hydroxy, External | | | | + +-------+ + + + + | Specimen | + + | Blood | + + External Lab: Iron Total (10/21/2017) + +-------+ + + | Component | Value | Ref Range | Performed At | + +-------+ + + | Iron, External | 36.52 | | | + +-------+ + + External Lab: Iron Saturation (10/21/2017) + +-------+ + + | Component | Value | Ref Range | Performed At | + +-------+ + + | Iron Saturation, | 8 | | | | External | | | | + +-------+ + + External Lab: Iron Binding Capacity (10/21/2017) + +-------+ + + | Component | Value | Ref Range | Performed At | + +-------+ + + | Iron Binding | 455 | | | | Capacity, External | | | | + +-------+ + + External Lab: Ferritin (10/21/2017) + +-------+ + + | Component | Value | Ref Range | Performed At | + +-------+ + + | Ferritin, External | 54.59 | | | + +-------+ + + External Lab: CBC (10/21/2017) + +-------+ + + | Component | Value | Ref Range | Performed At | + +-------+ + + | WBC, External | 9.6 | | | + +-------+ + + | HGB, External | 13.1 | | | + +-------+ + + | HCT, External | 39.1 | | | + +-------+ + + | PLT, External | 394 | | | + +-------+ + + | RBC, External | 4.33 | | | + +-------+ + + | MCV, External | 90 | | | + +-------+ + + | RDW, External | 15.8 | | | + +-------+ + + External Lab: Triglycerides (10/21/2017) + +-------+ + + | Component | Value | Ref Range | Performed At | + +-------+ + + | Triglycerides, | 127 | | | | External | | | | + +-------+ + + + + | Specimen | + + | Blood | + + External Lab: Cholesterol, HDL (10/21/2017) + +-------+ + + | Component | Value | Ref Range | Performed At | + +-------+ + + | HDL Cholesterol, | 55 | mg/dl | | | External | | | | + +-------+ + + + + | Specimen | + + | Blood | + + External Lab: Cholesterol, Total (10/21/2017) + +-------+ + + | Component | Value | Ref Range | Performed At | + +-------+ + + | Cholesterol, Total, | 157 | mg/dl | | | External | | | | + +-------+ + + + + | Specimen | + + | Blood | + + External Lab: Cholesterol, LDL (10/21/2017) + +-------+ + + | Component | Value | Ref Range | Performed At | + +-------+ + + | LDL Cholesterol, | 77 | | | | External | | | | + +-------+ + + + + | Specimen | + + | Blood | + + External Lab: Microalbumin/Creatinine Ratio, Urine (10/21/2017) + +-------+ + + | Component | Value | Ref Range | Performed At | + +-------+ + + | Microalbumin/Creatin | 1,696 | | | | ine Ratio, External | | | | + +-------+ + + + + | Specimen | + + | Blood | + + External Lab: BUN (06/06/2017) + +-------+ + + | Component | Value | Ref Range | Performed At | + +-------+ + + | BUN, External | 11 | | | + +-------+ + + External Lab: Glucose (06/06/2017) + +-------+ + + | Component | Value | Ref Range | Performed At | + +-------+ + + | Glucose, External | 143 | | | + +-------+ + + External Lab: ALT (06/06/2017) + +-------+ + + | Component | Value | Ref Range | Performed At | + +-------+ + + | ALT, External | 13 | | | + +-------+ + + External Lab: AST (06/06/2017) + +-------+ + + | Component | Value | Ref Range | Performed At | + +-------+ + + | AST, External | 14 | | | + +-------+ + + External Lab: Alkaline Phosphatase (06/06/2017) + +-------+ + + | Component | Value | Ref Range | Performed At | + +-------+ + + | ALP, External | 83 | | | + +-------+ + + External Lab: Bilirubin, Total (06/06/2017) + +-------+ + + | Component | Value | Ref Range | Performed At | + +-------+ + + | Bilirubin, Total, | 0.5 | | | | External | | | | + +-------+ + + External Lab: Albumin (06/06/2017) + +-------+ + + | Component | Value | Ref Range | Performed At | + +-------+ + + | Albumin, External | 3.6 | | | + +-------+ + + External Lab: Protein, Total (06/06/2017) + +-------+ + + | Component | Value | Ref Range | Performed At | + +-------+ + + | Protein, Total, | 6.7 | | | | External | | | | + +-------+ + + External Lab: Calcium (06/06/2017) + +-------+ + + | Component | Value | Ref Range | Performed At | + +-------+ + + | Calcium, External | 9.4 | | | + +-------+ + + External Lab: Carbon Dioxide (06/06/2017) + +-------+ + + | Component | Value | Ref Range | Performed At | + +-------+ + + | Carbon Dioxide, | 30 | | | | External | | | | + +-------+ + + External Lab: Chloride (06/06/2017) + +-------+ + + | Component | Value | Ref Range | Performed At | + +-------+ + + | Chloride, External | 97 | | | + +-------+ + + External Lab: Potassium (06/06/2017) + +-------+ + + | Component | Value | Ref Range | Performed At | + +-------+ + + | Potassium, External | 4.2 | | | + +-------+ + + External Lab: Sodium (06/06/2017) + +-------+ + + | Component | Value | Ref Range | Performed At | + +-------+ + + | Sodium, External | 136 | | | + +-------+ + + External Lab: CBC (06/06/2017) + +-------+ + + | Component | Value | Ref Range | Performed At | + +-------+ + + | WBC, External | 8.7 | | | + +-------+ + + | HGB, External | 14.3 | | | + +-------+ + + | HCT, External | 43 | | | + +-------+ + + | PLT, External | 362 | | | + +-------+ + + | RBC, External | 4.81 | | | + +-------+ + + | MCV, External | 89 | | | + +-------+ + + | RDW, External | 15 | | | + +-------+ + + External Lab: eGFR (06/06/2017) + +-------+ + + | Component | Value | Ref Range | Performed At | + +-------+ + + | eGFR, External | 105 | | | + +-------+ + + + + | Specimen | + + | Blood | + + External Lab: Creatinine (06/06/2017) + +-------+ + + | Component | Value | Ref Range | Performed At | + +-------+ + + | Creatinine, External | 0.61 | | | + +-------+ + + + + | Specimen | + + | Blood | + + Hemoglobin A1C (10/01/2016) + +-------+ + + | Component | Value | Ref Range | Performed At | + +-------+ + + | Hemoglobin A1c | 7.0 | % | | + +-------+ + + + + | Specimen | + + | Blood | + + External Lab: BUN (10/01/2016) + +-------+ + + | Component | Value | Ref Range | Performed At | + +-------+ + + | BUN, External | 13 | | | + +-------+ + + External Lab: Glucose (10/01/2016) + +-------+ + + | Component | Value | Ref Range | Performed At | + +-------+ + + | Glucose, External | 135 | | | + +-------+ + + External Lab: ALT (10/01/2016) + +-------+ + + | Component | Value | Ref Range | Performed At | + +-------+ + + | ALT, External | 17 | | | + +-------+ + + External Lab: AST (10/01/2016) + +-------+ + + | Component | Value | Ref Range | Performed At | + +-------+ + + | AST, External | 12 | | | + +-------+ + + External Lab: Alkaline Phosphatase (10/01/2016) + +-------+ + + | Component | Value | Ref Range | Performed At | + +-------+ + + | ALP, External | 86 | | | + +-------+ + + External Lab: Bilirubin, Total (10/01/2016) + +-------+ + + | Component | Value | Ref Range | Performed At | + +-------+ + + | Bilirubin, Total, | 0.5 | | | | External | | | | + +-------+ + + External Lab: Albumin (10/01/2016) + +-------+ + + | Component | Value | Ref Range | Performed At | + +-------+ + + | Albumin, External | 3.2 | | | + +-------+ + + External Lab: Protein, Total (10/01/2016) + +-------+ + + | Component | Value | Ref Range | Performed At | + +-------+ + + | Protein, Total, | 5.9 | | | | External | | | | + +-------+ + + External Lab: Calcium (10/01/2016) + +-------+ + + | Component | Value | Ref Range | Performed At | + +-------+ + + | Calcium, External | 9.1 | | | + +-------+ + + External Lab: Carbon Dioxide (10/01/2016) + +-------+ + + | Component | Value | Ref Range | Performed At | + +-------+ + + | Carbon Dioxide, | 30 | | | | External | | | | + +-------+ + + External Lab: Chloride (10/01/2016) + +-------+ + + | Component | Value | Ref Range | Performed At | + +-------+ + + | Chloride, External | 97 | | | + +-------+ + + External Lab: Potassium (10/01/2016) + +-------+ + + | Component | Value | Ref Range | Performed At | + +-------+ + + | Potassium, External | 4.4 | | | + +-------+ + + External Lab: Sodium (10/01/2016) + +-------+ + + | Component | Value | Ref Range | Performed At | + +-------+ + + | Sodium, External | 138 | | | + +-------+ + + External Lab: eGFR (10/01/2016) + +-------+ + + | Component | Value | Ref Range | Performed At | + +-------+ + + | eGFR, External | >120 | | | + +-------+ + + + + | Specimen | + + | Blood | + + External Lab: Creatinine (10/01/2016) + +-------+ + + | Component | Value | Ref Range | Performed At | + +-------+ + + | Creatinine, External | 0.47 | | | + +-------+ + + + + | Specimen | + + | Blood | + + External Lab: BUN (08/07/2016) + +-------+ + + | Component | Value | Ref Range | Performed At | + +-------+ + + | BUN, External | 13 | | | + +-------+ + + External Lab: Glucose (08/07/2016) + +-------+ + + | Component | Value | Ref Range | Performed At | + +-------+ + + | Glucose, External | 135 | | | + +-------+ + + External Lab: ALT (08/07/2016) + +-------+ + + | Component | Value | Ref Range | Performed At | + +-------+ + + | ALT, External | 17 | | | + +-------+ + + External Lab: AST (08/07/2016) + +-------+ + + | Component | Value | Ref Range | Performed At | + +-------+ + + | AST, External | 13 | | | + +-------+ + + External Lab: Alkaline Phosphatase (08/07/2016) + +-------+ + + | Component | Value | Ref Range | Performed At | + +-------+ + + | ALP, External | 94 | | | + +-------+ + + External Lab: Bilirubin, Total (08/07/2016) + +-------+ + + | Component | Value | Ref Range | Performed At | + +-------+ + + | Bilirubin, Total, | 0.3 | | | | External | | | | + +-------+ + + External Lab: Albumin (08/07/2016) + +-------+ + + | Component | Value | Ref Range | Performed At | + +-------+ + + | Albumin, External | 3.4 | | | + +-------+ + + External Lab: Protein, Total (08/07/2016) + +-------+ + + | Component | Value | Ref Range | Performed At | + +-------+ + + | Protein, Total, | 6.7 | | | | External | | | | + +-------+ + + External Lab: Calcium (08/07/2016) + +-------+ + + | Component | Value | Ref Range | Performed At | + +-------+ + + | Calcium, External | 9.1 | | | + +-------+ + + External Lab: Carbon Dioxide (08/07/2016) + +-------+ + + | Component | Value | Ref Range | Performed At | + +-------+ + + | Carbon Dioxide, | 35 | | | | External | | | | + +-------+ + + External Lab: Chloride (08/07/2016) + +-------+ + + | Component | Value | Ref Range | Performed At | + +-------+ + + | Chloride, External | 97 | | | + +-------+ + + External Lab: Potassium (08/07/2016) + +-------+ + + | Component | Value | Ref Range | Performed At | + +-------+ + + | Potassium, External | 4.2 | | | + +-------+ + + External Lab: Sodium (08/07/2016) + +-------+ + + | Component | Value | Ref Range | Performed At | + +-------+ + + | Sodium, External | 136 | | | + +-------+ + + External Lab: CBC (08/07/2016) + +-------+ + + | Component | Value | Ref Range | Performed At | + +-------+ + + | WBC, External | 10.9 | | | + +-------+ + + | HGB, External | 14.7 | | | + +-------+ + + | HCT, External | 45.6 | | | + +-------+ + + | PLT, External | 291 | | | + +-------+ + + | RBC, External | 4.9 | | | + +-------+ + + | MCV, External | 93 | | | + +-------+ + + | RDW, External | 15 | | | + +-------+ + + External Lab: eGFR (08/07/2016) + +-------+ + + | Component | Value | Ref Range | Performed At | + +-------+ + + | eGFR, External | 118 | | | + +-------+ + + + + | Specimen | + + | Blood | + + External Lab: Creatinine (08/07/2016) + +-------+ + + | Component | Value | Ref Range | Performed At | + +-------+ + + | Creatinine, External | 0.55 | | | + +-------+ + + + + | Specimen | + + | Blood | + + External Lab: BUN (12/04/2015) + +-------+ + + | Component | Value | Ref Range | Performed At | + +-------+ + + | BUN, External | 13 | | | + +-------+ + + External Lab: Glucose (12/04/2015) + +-------+ + + | Component | Value | Ref Range | Performed At | + +-------+ + + | Glucose, External | 143 | | | + +-------+ + + External Lab: Calcium (12/04/2015) + +-------+ + + | Component | Value | Ref Range | Performed At | + +-------+ + + | Calcium, External | 9.5 | | | + +-------+ + + External Lab: Carbon Dioxide (12/04/2015) + +-------+ + + | Component | Value | Ref Range | Performed At | + +-------+ + + | Carbon Dioxide, | 28 | | | | External | | | | + +-------+ + + External Lab: Chloride (12/04/2015) + +-------+ + + | Component | Value | Ref Range | Performed At | + +-------+ + + | Chloride, External | 101 | | | + +-------+ + + External Lab: Potassium (12/04/2015) + +-------+ + + | Component | Value | Ref Range | Performed At | + +-------+ + + | Potassium, External | 4.0 | | | + +-------+ + + External Lab: Sodium (12/04/2015) + +-------+ + + | Component | Value | Ref Range | Performed At | + +-------+ + + | Sodium, External | 136 | | | + +-------+ + + External Lab: CBC (12/04/2015) + +-------+ + + | Component | Value | Ref Range | Performed At | + +-------+ + + | WBC, External | 13.2 | | | + +-------+ + + | HGB, External | 15.5 | | | + +-------+ + + | HCT, External | 46.1 | | | + +-------+ + + | PLT, External | 378 | | | + +-------+ + + | RBC, External | 4.94 | | | + +-------+ + + | MCV, External | 93 | | | + +-------+ + + | RDW, External | 13.4 | | | + +-------+ + + External Lab: eGFR (12/04/2015) + +-------+ + + | Component | Value | Ref Range | Performed At | + +-------+ + + | eGFR, External | >120 | | | + +-------+ + + + + | Specimen | + + | Blood | + + External Lab: Creatinine (12/04/2015) + +-------+ + + | Component | Value | Ref Range | Performed At | + +-------+ + + | Creatinine, External | 0.54 | | | + +-------+ + + + + | Specimen | + + | Blood | + + in this encounter Visit Diagnoses Not on filein this encounter"
--- OUTSIDE RECORDS SUMMARY | ~2018-01-24 | XMS | Clinical Summary ---
Demographics + + + | Address | [address] | | | [place] [address] | + + + | Home Phone | | + + + | Preferred Language | Unknown | + + + | Marital Status | Single | + + + | Anglican Affiliation | Unknown | + + + | Race | Unknown | + + + | Ethnic Group | Unknown | + + + Author + + + | Author | [facility] | + + + | Organization | [facility] | + + + | Address | Unknown | + + + | Phone | Unavailable | + + + Support + + +---------+ + | Name | Relationship | Address | Phone | + + +---------+ + | An Carlin | [place] | , [place] | | + + +---------+ + Care Team Providers + +------+ + | Care Visual Developer Name | Role | Phone | [...] | | 08/2 | Disco | | [id number] | mouth daily. | | | | [...] [place] | | | | | | [address] | | | | | | | [...] [place] | | | | | | [address] | | | | | | | [...] + + + + | Calculated R [place] | -2 | degrees | [facility] | + + + + + | Calculated T [place] | 28 | degrees | [facility] [...] | + + + + + | [facility] | [address] | [place] [address] | | + + + + + MRSA by PCR (01/19/2018 5:50 PM) + + + + + | Component | Value | Ref Range | Performed At | + + + + + | SOURCE | NARES(NOSE) | | [facility] | + + + + + | MRSA PCR | NEGATIVEComment: Testing | NEGATIVE | [facility] | | | performed at [facility];[address] | | | | | [address];[place] | | | | | [address] | | | + + + + + + + | Specimen | + + | Nasopharyngeal - | | Nares(Nose) | + + + + + + + | Performing | Address | City/State/Zipcode | Phone Number | | Organization | | | | + + + + + | [facility] | [address] | [place] [address] | | + + + + + [...] DEANN JOSÉ Date of : 1970 | [facility] | | Performing Physician: Bassam [...] | MV DecT: 185.80 ms MV E Grgeg: 1.40 m/s MV E/A Ratio: 37.8 | [...] | maxP.03 mmHg TR Vmax: 2.06 m/s Wafer Mounter: | | | Authenticated by: Bassam Hernandez Report Date/Time: 11-13-2017 | | | 16:25:37 | | + + + + ----+ | Procedure Note | + ----+ | Faizan, Rad Results In - 11/13/2017 4:30 PM PDT Patient Name: Jade JOSÉ of | | : 1970Accession: [id number] Physician: Bassam | | Mary INDICATIONS------ | [...] | | cmLVPWd: 1.18 cmLVOT Area: 3.16 oj7RBHL Diam: 2.00 cm%FS: 26.85 %EF(Teich): | | [...] (A-L): 32.42 ml/m2LAAs A2C: | | 21.37 am2XWBDA A-L A2C: 73.73 mlLALs A2C: 5.26 cmLAAs A4C: 24.63 qu0OLZQW A-L A4C: | | 95.79 mlLALs A4C: 5.37 cmRAAs: 21.57 zd8UYNFR A-L: 68.54 mlRAESV MOD: 63.21 | | mlRALs: 5.76 cmTAPSE: 1.68 cmAV maxP.68 mmHgAV meanP.98 mmHgAV Vmax: | | 1.19 m/Edwin Vmean: 0.83 m/Edwin VTI: 23.45 cmAVA Vmax: 2.32 cm2AVA (VTI): 2.48 | | ga7ASCA Vmax: 0.00 cm2/m2AVAI (VTI): 0.00 cm2/m2LVOT maxP.06 [...] VTI: 26.10 cmMVA (VTI): | | 2.23 fz8Wgbetv e': 0.08 m/sSeptal E/e': 17.11 Lateral e': [...] |TR Vmax: 2.06 m/s | | | |Wafer Mounter: | |Authenticated by: Bassam Maamemary | |Report [...] | + + + + + | [facility] | [address] | [place] [address] | | + + + + + [...] +------+-------+ + | MEDICAID | [place] | [id number] | | | [address] | | | N | | | | [place] | | | [place] | | | | [address] | | | [employer] | | | | | + +--------+ [...] Self | [birth year] | Home: | [address] | | | al/Fam | | 1971 | [phone] | [place] | | | kevin | | | [phone] | [address] | + +--------+ +--------+ + +
--- OUTSIDE RECORDS SUMMARY | ~2018-01-24 | XMS | Encounter Summary ---
Demographics + + + | Address | [address] | | | [place] [address] | + + + | Home Phone [...] Team Providers + +------+ + | Care Devulcanizer Loader Name | Role | Phone | + [...] | | 2018 | | Preventive at [facility] | JULIETA Figueroa [address] | Request (Jardiance) | | | | [address] | [place], | | | | | Mailcode: CH9A | [place] [address] | | | | | [facility] | [phone] | | | | | and [facility] | | | | | | [place], [place] | | | | | | [address] | | | | | | [phone] | | | +--------+ + + + [...] [address] | | | | | | [place] | | | | | | [address] | | | | | | [phone] | | | | | | | | +--------+---------+ + + + | 07/09/ | Office | Cardiology | Juan Antonio Mclaughlin, | | | 2018 | Visit | | [address] | | | | | | [place], [place] | | | | | | [address] | | | | | | [phone] | | | | | | | | +--------+---------+ + + + as of this encounter Visit Diagnoses Not on filein this encounter"
--- OUTSIDE RECORDS SUMMARY | ~2018-01-24 | XMS | Encounter Summary ---
Demographics + + + | Address | [address] | | | [place] [address] | + + + | Home Phone | | + + + | Preferred Language | Unknown | + + + | Marital Status | Single | + + + | Religion Affiliation | NON | + + + [...] Team Providers + +------+ + | Care Pullman Conductor Name | Role | Phone | + +------+ + | Bassam Ross DO | PCP | | + +------+ + Encounter Details +--------+ + + + + | Date | Type | Department | Care Team | Description | +--------+ + + + + | 01/18/ | MyChart | Cardiology in | Juan Antonio Mclaughlin, | RE: Lab work | | 2018 | Encounter | Digestive Health | MD [address] | | | | | Center at [facility] [address] [facility] [place] | | | | | [address] [place] [facility] | [address] | | | | | for Health and | [phone] | | | | | Healing [address] [place] [address] | | | | | | [place], [place] | | | | | | [address] | | | | | | [phone] | | | +--------+ + + + [...] | 02/26/ | Office | Surgery | Rubi, Vigil A, | | | 2017 | Visit | | [address] | | | | | | [place], [place] | | | | | | [address] | | | | | | [phone] | | | | | | | | +--------+---------+ + + + | 07/09/ | Office | Cardiology | Juan Antonio Mclaughlin, | | | 2018 | Visit | | [address] | | | | | | [place] | | | | | | [address] | | | | | | [phone] | | | | | | | | +--------+---------+ + + + as of this encounter Visit Diagnoses Not on filein this encounter"
--- OUTSIDE RECORDS SUMMARY | ~2018-01-24 | XMS | Encounter Summary ---
Demographics + + + | Address | [address] | | | [place] [address] | + + + | Home Phone | | + + + | Preferred Language | Unknown | + + + | Marital Status | Single | + + + | Tenriism Affiliation | Unknown | + + + | Race | Unknown | + + + | Ethnic Group | Unknown | + + + Author + + + | Author | [facility] [facility] | + + + | Organization | [facility] | + + + | Address | Unknown | + + + | Phone | Unavailable | + + + Support + + +---------+ + | Name | Relationship | Address | Phone | + + +---------+ + | An Carlin | ECON | , [place] | | + + +---------+ + Care Team Providers + +------+ + | Care Assistant Program Manager Name | Role | Phone | [...] [place] | | | | | | [address] | | | | | | | [...] TEETH | | | | | [address] [place], [place] | | | | | | [address] | | | | | | | [...] [place] | | | | | | [place], [place] | | | | | | [address] | | | | | | | [...] DEANN JOSÉ Date of : 1970 | [facility] | | Performing Physician: Bassam [...] | maxP.03 mmHg TR Vmax: 2.06 m/s Band Booker: | | | Authenticated by: Bassam Isabeldaggett Report Date/Time: 11-13-2017 | | | 16:25:37 | | + + + + ----+ | Procedure Note | + ----+ | Tommy Gloria Results In - 11/13/2017 4:30 PM PDT Patient Name: Jade JOSÉ of | | : 1970Accession: [id number] Physician: Bassam | | Alsamara INDICATIONS------ | [...] | | cmLVPWd: 1.18 cmLVOT Area: 3.16 wx8AUKP Diam: 2.00 cm%FS: 26.85 %EF(Teich): | | [...] (A-L): 32.42 ml/m2LAAs A2C: | | 21.37 wv4KIWAN A-L A2C: 73.73 mlLALs A2C: 5.26 cmLAAs A4C: 24.63 sw5AYLKI A-L A4C: | | 95.79 mlLALs A4C: 5.37 cmRAAs: 21.57 wy2YJPDG A-L: 68.54 mlRAESV MOD: 63.21 | | mlRALs: 5.76 cmTAPSE: 1.68 cmAV maxP.68 mmHgAV meanP.98 mmHgAV Vmax: | | 1.19 m/Edwin Vmean: 0.83 m/Edwin VTI: 23.45 cmAVA Vmax: 2.32 cm2AVA (VTI): 2.48 | | qm0VERE Vmax: 0.00 cm2/m2AVAI (VTI): 0.00 cm2/m2LVOT maxP.06 [...] VTI: 26.10 cmMVA (VTI): | | 2.23 qc4Jyrxvc e': 0.08 m/sSeptal E/e': 17.11 Lateral e': [...] |TR Vmax: 2.06 m/s | | | |Band Booker: | |Authenticated by: Bassam Hernandez | |Report [...] + + | Performing | Address | City/State[facility] | Phone Number | | Organization | | | | + + + + + | [facility] | [address] | [place] [address] | | + + + + + in this encounter Visit Diagnoses + + | Diagnosis | + + | Edema, unspecified type | + +"
--- OUTSIDE RECORDS SUMMARY | ~2018-01-24 | XMS | Encounter Summary ---
Demographics + + + | Address | [address] | | | [place] [address] | + + + | Home Phone [...] Team Providers + +------+ + | Care Greaser Helper Name | Role | Phone | + +------+ + | Bassam Ross DO | PCP | | + +------+ + Encounter Details +--------+ + + + + | Date | Type | Department | Care Team | Description | +--------+ + + + + | 01/18/ | Abstract | Digestive Health | Clinic, Surgery | | | 2018 | | Center at [facility] 6th | | | | | | Floor [address] | | | | | | [place] Mailcode: CH4S | | | | | | [facility] | | | | | | and Healing, 6th | | | | | | floor [place], [place] | | | | | | [address] | | | | | | [phone] | | | +--------+ + + + [...] | | 2017 | Visit | | [address] | | | | | | [place], [place] | | | | | | [address] | | | | | | [phone] | | | | | | | | +--------+---------+ + + + | 07/09/ | Office | Cardiology | Juan Antonio Mclaughlin, | | | 2019 | Visit | | [address] | | | | | | [place], [place] | | | | | | [address] | | | | | | [phone] | | | | | | | | +--------+---------+ + + + as of this encounter Visit Diagnoses Not on filein this encounter"
--- OUTSIDE RECORDS SUMMARY | ~2018-01-24 | XMS | Encounter Summary ---
Demographics + + + | Address | [address] | | | [place] [address] | + + + | Home Phone [...] + + + | Author | [facility] | | | and Ozzyana | + + + | Organization | [facility] | | | and [place] [...] [place] | | | | | [address] | | + + + + + Care Team Providers + +------+ + | Care Voip Engineer Name | Role | Phone | [...] + + | 01/21/ | [facility] | [facility] | Jermaine Fairchild | ANNABEL (obstructive | | 2018 | Visit | SLEEP DISORDER [address] | MD [address] | sleep apnea) | | | | [address] | [address] | (Primary Dx); | | | | [place] [address] | [place] [address] | Obesity | | | | [phone] | [phone] | hypoventilation | | | | | [...] + | Pulse | 99 | 01/21/2018 1500 PDT | + + + + | Temperature | - | - | + + + + | Respiratory Rate | 18 | 01/21/2018 1500 PDT | + + + + | Oxygen Saturation | 98% | 01/21/2018 1500 PDT | + + + + | Inhaled Oxygen | - | - | | Concentration | | | + + + + | Weight | 181.4 kg (399 lb | 01/21/2018 1500 PDT | | | 14.6 oz) | | + + + + | Height | - | - | + + + + | Body Mass Index | 73.15 | 01/21/2018 1500 PDT | + + + + in this encounter Progress Notes Jermaine Fairchild Jr., MD - 01/21/2018 1500 PDT I first saw this patient in consultation on March 16, 2003 because of possible obstructive apnea, restless leg syndrome, probable Cent ral alveolar hypoventilation of obesity. At that time she weighed in excess of 500 pounds. Diagnostic nocturnal polysomnography performed in February 20, 2003 demonstrated a latency to sleep onset was prolonged at 33 minutes. The patient slept for 5.7 hours out of 7.3 dread rs of study time. The sleep efficiency was low at 71.3%. All stages of sleep were noted. The latency to rapid eye movement sleep was prolonged at 266.5 minutes. Sleep was very frag mented. The arousal index was 47.1. The heart rate was rapid between 92 and 113 (sinus tac hycardia). The Apnea Hypopnea Index was elevated at 22.8. Oxygen desaturation was noted wi th a stephanie saturation of 70.2%. The periodic limb movement arousal index was also elevated at 22. The patient was suspected of having obstructive sleep apnea, alveolar hypoventilatio n of obesity, and periodic limb movements of sleep. On March 21, 2003 bilevel positive ve ry pressure titration study was performed. The patient was titrated to bilevel positive air way pressure of 16/11 which resulted in an Apnea Hypopnea Index index of less than 5. Mild oxygen desaturation (80-90%) was noted. The periodic limb movement arousal index was normal at 1.3. The patient was treated with CPAP 16 cm and it was suggested that she consider bar iatric surgery for her morbid obesity. The patient was very adherent with CPAP therapy. Ga stric banding surgery was done which resulted in a weight loss in excess of 200 pounds. She felt that CPAP was too strong and discontinued it. I reevaluated her in 2007. Diagnostic nocturnal polysomnography performed in September 19, 2007 after 220 weight loss demonstrated a l atency to sleep onset was normal at 11 minutes. The sleep efficiency was normal at 92%. Al l stages of sleep were noted and the latency to rapid eye movement sleep was normal at 129 m inutes. Sleep was quite fragmented with an arousal index of 51.6. The Apnea Hypopnea Index was elevated at 29.1. Oxygen desaturation to 77% was noted and the patient spent 30.5 nat william with an oxygen saturation of less than 90%. Periodic limb movement arousal index was al so elevated at 17.9. On September 20, 2007 polysomnographically guided CPAP titration was perfo rmed. This indicated that CPAP in the 7-9 cm range would likely control obstructive breathi ng. Periodic limb movements of sleep were noted and they do fragmented sleep. CPAP was pre scribed at 8 cm. Pramipexole was also prescribed [...] 371 pounds. She was recently seen at [facility] [place] where she was told that no further bariatric surgery could be done. Repeat PSG guided PAP titration was performed on 09/21/2017. This revealed that she required iVAPS: Target Va 4.5, Tgt DC 20; EPAP 11; Max PS 16cm; Min PS 6cm; TiMin 0.8; Rise Time 40 0; Trigger M, Cycle M with oxygen 5 l/min is advised to control ANNABEL and Obesity Hypoventilat ion which was prescribed. It was also suggested that she re-explore the possibility of [facility] bariatric surgery. She states she now has a new primary care physician Dr. Peralta has arr anged for bariatric consultation to [facility] in [place]. She has worn her Resmed VPAPST-A(iVAPS) for 81 out of the last 82 days. This is set at EPA P of 11 cm, pressure support minimum 6 cm, pressure support maximum 16 cm, and alveolar vent ilation 4.5 L/minute. She is averaging 6 hours and 25 minutes of use per day. The calculat ed Apnea Hypopnea Index index is 0.8. She wore her other CPAP unit on the 11 days that she d idn't wear the iVAPS. She has been to see a surgeon in [place] recently who is referring her back to the weight loss surgeon [facility] and she has an appointment 01/26/2018 at [facility] to reconsider bariatric surge ry. BP 140/80 [...] spent neto magdaleno regarding sleep and PAP. in this encounter Plan of Treatment +--------+---------+ [...] [place] | | | | | | [address] | | | | | | | | +--------+---------+ + + + | 05/12/ | Office | Pulmonology | Adolfo Zazueta, | | | 2017 | Visit | | MD Jac Tong | | | | | | [place], [place] | | | | | | [place] | | | | | | [address] | | | | | | | | +--------+---------+ + + + | 07/27/ | Office | Sleep Medicine | Jermaine Fairchild | | | 2018 | Visit | | MD Jac Sousa | | | | | | [place] | | | | | | [place] [address] | | | | | | [phone] | | | | | | | | +--------+---------+ + + + as of this encounter Visit Diagnoses + + | Diagnosis | + + | ANNABEL (obstructive sleep apnea) - Primary | + + | Obstructive sleep apnea (adult) (pediatric) | + + | Obesity hypoventilation syndrome (HCC) | + + | Obesity hypoventilation syndrome | + +"
--- OUTSIDE RECORDS SUMMARY | ~2018-01-24 | XMS | Encounter Summary ---
Demographics + + + | Address | [address] | | | [place] [address] | + + + | Home Phone | | + + + | Preferred Language | Unknown | + + + | Marital Status | Single | + + + | Muslim Affiliation | 1013 | + + + | Race | Unknown | + + + | Ethnic Group | Unknown | + + + Author + + + | Author | [facility] | | | and Ozzy[place] | + + + | Organization | [facility] | | | and [place] [...] [place] | | | | | [address] | | + + + + + Care Team Providers + +------+ + | Care Braille Teacher Name | Role | Phone | + +------+ + | Iqra Peralta MD | PCP | Unavailable | + +------+ + Encounter Details +--------+ + + + + | Date | Type | Department | Care Team | Description | +--------+ + + + + | 01/08/ | Orders Only | [facility] | Provider, | Proteinuria, | | 2018 | | NEPHROLOGY [address] | [address] | unspecified type | | | | [address] | [address] [place] | (Primary Dx) | | | | [place], [place] | [place] [address] | | | | | [address] | | | | | | [phone] | | | +--------+ + + + [...] [place] | | | | | | [id number] | | | | | | | | +--------+---------+ + + + | 05/12/ | Office | Pulmonology | Adolfo Zazueta, | | | 2017 | Visit | | MD Jac Tong | | | | | | [place], [place] | | | | | | [place] | | | | | | [address] | | | | | | | | +--------+---------+ + + + | 07/27/ | Office | Sleep Medicine | Jermaine Fairchild | | | 2018 | Visit | | MD Jac Sousa | | | | | | [place] | | | | | | [place] [address] | | | | | | [phone] | | | | | | | [...]
--- OUTSIDE RECORDS SUMMARY | ~2018-01-24 | XMS | Encounter Summary ---
Demographics + + + | Address | [address] | | | [place] [address] | + + + | Home Phone | | + + + | Preferred Language | Unknown | + + + | Marital Status | Single | + + + | Taoism Affiliation | 1013 | + + + | Race | Unknown | + + + | Ethnic Group | Unknown | + + + Author + + + | Author | [facility] | | | and [place]zy[place] | + + + | Organization | [facility] | | | and [place] [...] [place] | | | | | [address] | | + + + + + [...] + + + + | 01/01/ | Ancillary | J[facility]AN AC[facility] | Provider, | | | 2018 | Orders | [facility] | MD [address] | | | | | IMAGING | [place] | | | | | [phone] | [place] [address] | | +--------+ + + + + [...] | | | | | | [address], [place] | | | | | | [address] [place] | | | | | | [address] | | | | | | | | +--------+---------+ + + + | 05/12/ | Office | Pulmonology | Adolfo Zazueta, | | | 2017 | Visit | | MD Jac Tong | | | | | | [place], [place] | | | | | | [place] | | | | | | [address] | | | | | | | | +--------+---------+ + + + | 07/27/ | Office | Sleep Medicine | Jermaine Fairchild | | | 2018 | Visit | | MD Jac Sousa | | | | | | [address] [place] | | | | | | [place] [address] | | | | | | [phone] | | | | | | | | +--------+---------+ + + + as of this encounter Results XR Lumbar Spine 2 [...]
--- OUTSIDE RECORDS SUMMARY | ~2018-01-24 | XMS | Clinical Summary ---
Demographics + + + | Address | [address] | | | [place] [address] | + + + | Home Phone [...] + + + | Author | [facility] [place] | | | and [place] | + + + | Organization | [facility] [place] | | | and [place] [...] [address] | | | | | [place] | | | | | [address] | | + + + + + Care Team Providers + +------+ + | Care Instructional Assistant Name | Role | Phone | + +------+ + | Iqra Peralta MD | PP | Unavailable | + +------+ + Allergies + + + + + + | Active Allergy | Reactions | Severity | Noted | Comments | | | | | Date | | + + + + + + | Amoxicillin | Hives | High | 08//20 | | | | | | 14 | | + + + + + + | Clarithromycin | Hives | High | /20 | | | | | | 10 | | + + + + + + | Fluticasone-Salmeter | Hives | High | | | | ol | | | | | + + + + + + | Gabapentin | Hives | High | //20 | | | | | | 14 | | + + + + + + | Hydrocodone | Itching | Low | | | + + + + + + | Oxycodone | Itching | Low | 07/15/20 | | | | | [...] 40 mg by mouth | | | 01/30 | | Activ | | 40 mg tablet | Twice daily as | | | 08/18 | | e | | | needed [...] CPAP to | 1 | 0 | 07/02 | | Activ | | | purchase for ANNABEL | Device | | 01/18 | | e | | | (327.23) | | | 14 | | | + + + +---------+------+------+-------+ | Uncoded | Lifelong-99;Obstucti | 1 | 0 | 08/30 | | Activ | | MedicationIndication | [...] mcg by mouth | | 1 | 04/1 | | Activ | | (SYNTHROID, | every morning | | | 11/18 | | e | | LEVOTHROID) 75 MCG | (before breakfast). | | | 16 | | | | tablet | Take [...] 10 mg | Daily. | | | /20 | | e | | tablet | [...] | tablet Take 2 | | | 120 | | e | | tabletIndications: | [...] | mouth once daily | | | 120 | | e | | mg 24 [...] | | + + + +---------+------+------+-------+ | naproxen | naproxen 500 mg | | | | | Activ | | (NAPROSYN) 500 mg | tablet take 1 tablet | | | | | e | | tabletIndications: | by mouth twice a | | | | | | | Proteinuria, | day BEFORE MEALS | | | | | | | unspecified type | | | | | | | + + + +---------+------+------+-------+ | | take one - two | | | 09/1 | 08/ | Disco | | HYDROcodone-acetamin | tablets by mouth | | | 20 | 0/20 | ntinu | | ophen (NORCO) 5-325 | every six hours if | | | 12 | 18 | ed | | mg per tablet | needed for pain | | | | | | + + + +---------+------+------+-------+ | | Take 3 mLs by | 360 mL | 1 | 07/2 | 08/ | Disco | | albuterol-ipratropiu | nebulization every 4 | | | 9/20 | 0/20 | ntinu | | m (DUONEB) 2.5-0.5 | hours as needed. | | | 14 | 18 | ed | | mg/3 mL | | | | | | | | SOLNIndications: | | | | | | | | Dyspnea | | | | | | | + + + +---------+------+------+-------+ | desvenlafaxine | Take one tablet | | 0 | 01/0 | 08/1 | Disco | | (PRISTIQ) 50 mg ER | daily | | | 2/20 | 0/20 | ntinu | | tablet | | | | 18 | 18 | ed | + + + +---------+------+------+-------+ | beclomethasone HFA | Inhale 2 puffs into | 1 | 3 | 03/1 | 08/1 | Disco | | (QVAR REDIHALER) 80 | the lungs 2 times | Inhaler | | 5/20 | 0/20 | ntinu | | mcg/puff inhaler | daily. | | | 18 | 18 | ed | + + + +---------+------+------+-------+ | albendazole | Albenza 200 mg | | | | 08/1 | Disco | | (ALBENZA) 200 mg | tablet | | | | 0/20 | ntinu | | tablet | | | | | 18 | ed | + + + +---------+------+------+-------+ | aspirin 81 mg | aspirin 81 mg | | | | 08/1 | Disco | | chewable tablet | chewable tablet chew | | | | 0/20 | ntinu | | | 2 tablets by mouth | | | | 18 | ed | | | once daily | | | | | | + + + +---------+------+------+-------+ | ferrous sulfate | | | 0 | 06/0 | 08/1 | Disco | | 325 mg tablet | | | | 7/20 | 0/20 | ntinu | | | | | | 18 | 18 | ed | + + + +---------+------+------+-------+ | omeprazole | omeprazole 20 mg | | | | 08/1 | Disco | | (PRILOSEC) 20 mg | capsule,delayed | | | | 0/20 | ntinu | | capsule | release | | | | 18 | ed | + + + +---------+------+------+-------+ Active Problems [...] | 02/07/2015 | + + + | Hx of [...] | +--------+ + + + + | 01/21/ | Office | | Jermaine Fairchild | ANNABEL (obstructive | | 2017 | Visit | | MD Lars | sleep apnea) | | | | | | (Primary Dx); | | | | | | Obesity | | | | | | hypoventilation | | | | | | syndrome (HCC) | +--------+ + + + + | 01/08/ | Orders Only | | Provider, | Proteinuria, | | 2018 | | | Historical, | unspecified type | | | | | | (Primary Dx) | +--------+ + + + + | 01/04/ | Telephone | | Anita Lu, | Nephrology | | 2017 | | | | Appointment | +--------+ + + + + | 01/04/ | Abstract | | Anita Lu, | | | 2017 | | | | | +--------+ + + + + | 01/01/ | Ancillary | | Provider, | | | 2017 | Orders | | Historical, | | +--------+ + + + + | 10/27/ | Imaging | | Provider, | | | 2018 | Exam | | Historical, MD | | +--------+ + + + + from Last 3 Months Immunizations + + + + | Name | Dates Previously Given | Next Due | + + + + | INFLUENZA PF 18 Y OR | 03/01/2015, 02/21/2013 | | | >,TRIVALENT | | | | RECOMBINANT | | | + + + + | INFLUENZA PF | 03/16/2017, 02/28/2016 | | | QUAD(PED/ADOL/ADULT) | | [...] + + + + | PNEUMOCOCCAL | 11/18/2013, 07/02/2013 | | | POLYSACCHARIDE | | | | 23-VALENT (PPSV23) | | | + + + + | TD W/PRESERVATIVE, | 11/25/1996 | | | (ADOL/ADULT) | [...] Height | 157.5 cm (5' 2") | 07/10/2017 1450 PST | + + + + | Body Mass Index | 73.15 | 01/21/2018 1500 PDT | + + + + Plan of Treatment +--------+---------+ + + + | Date | Type | Specialty | Care Team | Description | +--------+---------+ + + + | 03/15/ | Office | | Sangeetha, | | | 2017 | Visit | | KARIME Enriquez [address] | | | | | | [address], [place] | | | | | | [address] [place] | | | | | | [address] | | | | | | | | +--------+---------+ + + + | 05/12/ | Office | | Adolfo Zazueta, | | | 2017 | Visit | | MD Jac Tong | | | | | | [place] [place] | | | | | | [place] | | | | | | [address] | | | | | | | | +--------+---------+ + + + | 07/27/ | Office | | Jermaine Fairchild | | | 2018 | Visit | | MD Jac Sousa [place] | | | | | | [address] | | | | | | [place] [address] | | | | | | [phone] | | | | | | | | +--------+---------+ + + + + + + + + | Health Maintenance | Due Date | Last Done | Comments | + + + + + | Diabetic Eye Exam | | | | | (Bi-Annually) | 7 | | | + + [...] + | Vaccine: Influenza | | 03/16/2017, 03/10/2016, | | | (#1) | 8 | 02/28/2016, Additional history | | | | | exists | | + + + + + | Vaccine: | Completed | 11/18/2013, 07/02/2013, | | | Pneumococcal 19-64 | | 01/30/2013 | | | Highest Risk | | | | + + + + + Procedures + +--------+ + + + | Procedure Name | Priori | Date/Time | Associated Diagnosis | Comments | | | ty | | | | + +--------+ + + + | ECHO-EXTERNAL SCAN | | 01/01/2018 | | Results for this | | | | 0000 PDT | | procedure are in the | | | | | | results section. | + +--------+ + + + | IMAGING REPORT - | | 11/12/2017 | | Results for this | | EXTERNAL SCAN | | 0000 PDT | | procedure are [...] | + +--------+ + + + | IMAGING REPORT - | | 10/27/2017 | | Results for this | | EXTERNAL SCAN | | 0000 PDT | | procedure are in the | | | | | | results section. | + +--------+ + + + from Last 3 Months Results ECHO-EXTERNAL SCAN (01/01/2018) + + + | Narrative | Performed At | + + + | Ordered by an | | | unspecified provider. | | + + + IMAGING REPORT - EXTERNAL SCAN (11/12/2017)Only the most recent of 2 results within the period is included. + + + | Narrative | Performed At | + + + | Ordered by an | | | unspecified provider. | | + + + XR Lumbar Spine 2 or 3 Vw (10/27/2017 3010) + + + | Narrative | Performed [...] | | | + +---------+ + + from Last 3 Months Insurance + +--------+ +--------+ +---------+ | Payer | Benefi | Subscriber | Type | Phone | Address | | | t Plan | ID | | | | | | / | | | | | | | Group | | | | | + +--------+ +--------+ +---------+ | [employer] | MODA | [id number] | Medica | +- | | | MEDICAID HMO | HEALTH [...] Self | [birth year] | Home: | [address] | | | al/[place]o | | 1971 | [phone] | [place] [address] | | | kevin | | | [phone] | | + +--------+ +--------+ + +
--- OUTSIDE RECORDS SUMMARY | ~2018-01-24 | XMS | Clinical Summary ---
Demographics + + + | Address | [address] | | | [place] [address] | + + + | Home Phone [...] Team Providers + +------+ + | Care Sugar Cane Grower Name | Role | Phone | + +------+ + | Bassam Ross DO | PP | | + +------+ + Source Comments [facility] In[facility] Allergies + + + + + [...] mouth once daily. | tablet | | /20 | | e | | release | Indications: | | | 16 | | | | (DR/EC)Indications: | HEARTBURN [...] | e | + + +--------+---------+------+------+-------+ | warfarin 5 [...] | 1/20 | | e | | extended release [...] + + +--------+---------+------+------+-------+ | desvenlafaxine | Take 25 mg by mouth | | | | | Activ | | succinate 25 mg oral | once daily. | | | | | e | | tablet extended | | | | | | | | release 24 hr | | | | | | | + + +--------+---------+------+------+-------+ | hydrOXYzine | hydroxyzine pamoate | | | | | Activ | | pamoate 25 mg oral | 25 mg capsule | | | | | e | [...] | | | + + +--------+---------+------+------+-------+ | traZODone 50 mg | Take 25 mg by mouth | | | | | Activ | | oral tablet | once daily at | | | | | e | | | bedtime as needed. | | | | | | + + +--------+---------+------+------+-------+ | levothyroxine 75 | Take 75 mcg by mouth | | | | | Activ | | mcg oral tablet | once daily. | | | | | e | + + +--------+---------+------+------+-------+ | empagliflozin | Take 1 tablet by | 90 | 3 | 08/ | | Activ | | (JARDIANCE) 25 mg | mouth once daily. | tablet | | 0/20 | | e | | oral tablet | | | | 18 | | | + + +--------+---------+------+------+-------+ Active Problems + + + | Problem | Noted Date | + + + | Morbid obesity with BMI of 60.0-69.9, adult ([facility]) | 02/25/2016 | + + + + + | Overview: Lifetime max: 568 lbs in 2002 | | S/P LAGB (2005), post op stephanie 170 lbs | | [...] 8 | + + + + | S/P laparoscopic sleeve gastrectomy | 02/16/20 | | | | 15 [...] | +--------+ + + + + | 01/20/ | Abstract | | Juan Antonio Mclaughlin, | | | 2017 | | | MD | | +--------+ + + + + | 01/18/ | MyChart | | Juan Antonio Mclaughlin, | RE: Lab work | | 2017 | Encounter | | MD | | +--------+ + + + + | 01/18/ | Abstract | | Clinic, Surgery | | 2017 | | | | | +--------+ + + + + | 01/11/ | Telephone | | Sheila Loya | Prior Authorization | 2017 | | | JULIETA Figueroa | Request (Jonatan) | +--------+ + + + + | 01/11/ | Telephone | | Juan Antonio Mclaughlin, | Other | | 2017 | | | MD | | +--------+ + + + + | 01/08/ | Office | | Juan Antonio Mclaughlin, | Nephrotic syndrome | | 2017 | Visit | | MD | (Primary Dx); Morbid | | | | | | obesity with BMI of | | | | | | 60.0-69.9, adult | | | | | | (HCC) | +--------+ + + + + | 01/08/ | Abstract | | Juan Antonio Mclaughlin, | Manage medication | | 2017 | | | MD | treatment | | | | | | (Medication list) | +--------+ + + + + from [...] + + | 02/26/ | Office | | Yaritza Venegas, | | | 2017 | Visit | | [address] | | | | | | [place], [place] | | | | | | [address] | | | | | | [phone] | | | | | | | | +--------+---------+ + + + | 07/09/ | Office | | Juan Antonio Mclaughlin, | | | 2019 | Visit | | [address] | | | | | | [place], [place] | | | | | | [address] | | | | | | [phone] | | | | | | | [...] | + + + + + | URINE MICROALBUMIN | | | | | | 9 | | | + + + + + | HEMOGLOBIN A1C | | 06/16/2017, 06/26/2015, | | | | 8 | 01/22/2015, Additional history | | | | | exists | | + + + + + | INFLUENZA VACCINE | | 03/16/2017, 02/19/2017, | | | (FLU SHOT) | 8 | 03/10/2016, Additional history | | | | | exists | | + + + + + | CREATININE | | 06/16/2017, 11/14/2015, | | | | 9 | 06/26/2015, Additional history | | | | | exists | | + + + + + | DIABETES | | 06/17/2017, 02/25/2016, | | | SELF-MANAGEMENT | 9 | 11/14/2015, Additional history | | | EDUCATION | | exists | | + + + + + | CHOLESTEROL | | 11/03/2013 | | | SCREENING | 9 | | | + + + + + | Pneumococcal (Adult) | Completed | 11/18/2013, 07/02/2013, | | | | | 01/30/2013 | | + + + + + [...] Lot | + +------+--------+ +--------+--------+--------+ | Dion Piña Implanted: | | N/A: | | | 09/28/ | 12BSGE | | Qty: 4 on 02/07/2015 by | | Abdome | | | 2018 | [id number] / | | Dori Reed MD | | n | | | | | | | | | | | | /[id number] | | | | | | | | 329 | + +------+--------+ +--------+--------+--------+ | Dion Deraslanted: Qty: | | N/A: | | | 08/29/ | 12BSGE | | 2 on 02/07/2015 by Dianelys Reed | | | 2017 | [id number] / | | Dori Ferris MD | | n | | | | | | | | | | | | /[id number] | | | | | | | | 327 | + +------+--------+ +--------+--------+--------+ Results Not on filefrom Last 3 Months Insurance + +--------+ +--------+-------+---------+ | Payer | Benefi | Subscriber | Type | Phone | Address | | | t Plan | ID | | | | | | / | | | | | | | Group | | | | | + +--------+ +--------+-------+---------+ | SUPERVISOR LAUNDRY MEDICAID | SUPERVISOR LAUNDRY | xxxxxxxx | Medica | | | [...] | Self | [birth year] | Home: | | | | al/Fam | | 1970 | +- | [place] [address] | | | kevin | | | [address] | | + +--------+ +--------+ + + | DEANN JOSÉ | Behavi | Self | [birth year] | Home: | | | | oral | | 1970 | +- | [place] [address] | | | Health | | | [address] | | + +--------+ +--------+ + +
--- OUTSIDE RECORDS SUMMARY | ~2018-01-24 | XMS | Clinical Summary ---
Demographics + + + | Address | [address] | | | [place] [address] | + + + | Home Phone | | + + + | Preferred Language | Unknown | + + + | Marital Status | Single | + + + | Restorationism Affiliation | 1013 | + + + | Race | Unknown | + + + | Ethnic Group | Unknown | + + + Author + + + | Author | [facility] [place] | | | and [place] | + + + | Organization | [facility] [place] | | | and [...] [place] | | | | | [address] | | + + + + + Care Team Providers + +------+ + | Care Button Reclaimer Name | Role | Phone | + [...] [place] | | | | | | [address] | | | | | | | | +--------+---------+ + + + | 05/12/ | Office | | Adolfo Zazueta, | | | 2017 | Visit | | MD Jac Tong | | | | | | [place], [address] [place] | | | | | | [place] | | | | | | [address] | | | | | | | | +--------+---------+ + + + | 07/27/ | Office | | Jermaine Fairchild | | | 2018 | Visit | | MD Jac Sousa [place] | | | | | | [address] | | | | | | [place] [address] | | | | | | [phone] | | | | | | | [...] Lumbar Spine 2 or 3 Vw (10/27/2017 2240) + + + | Narrative | Performed [...] | [employer] | MODA | [id number] | Medica | +- | | | [...] Self | [birth year] | Home: | [address] | | | al/[place]o | | 1971 | [phone] | [place] [address] | | | kevin | | | [address] | | + +--------+ +--------+ + +
--- OUTSIDE RECORDS SUMMARY | ~2018-01-24 | XMS | Encounter Summary ---
Demographics + + + | Address | [address] | | | [place] [address] | + + + | Home Phone | | + + + | Preferred Language | Unknown | + + + | Marital Status | Single | + + + | Gnosticist Affiliation | NON | + + + [...] Team Providers + +------+ + | Care Crop Insurance Claims Adjuster Name | Role | Phone | + +------+ + | Bassam Ross DO | PCP | | + +------+ + Encounter Details +--------+ + + + + | Date | Type | Department | Care Team | Description | +--------+ + + + + | 01/20/ | Abstract | Cardiology | Juan Antonio Mclaughlin, | | | 2018 | | Preventive at [facility] | [address] | | | | | [address] | [place], [place] | | | | | Mailcode: CH9A | [address] | | | | | [facility] | [phone] | | | | | and Healing | | | | | | [place], [place] | | | | | | [address] | | | | | | [phone] | | | +--------+ + + + [...] [address] | | | | | | [facility] [place] | | | | | | [address] | | | | | | [phone] | | | | | | | | +--------+---------+ + + + | 07/09/ | Office | Cardiology | Juan Antonio Mclaughlin, | | | 2018 | Visit | | MD [address] | | | | | | [place] | | | | | | [address] | | | | | | [phone] | | | | | | | | +--------+---------+ + + + as of this encounter Visit Diagnoses Not on filein this encounter"
--- OUTSIDE RECORDS SUMMARY | ~2018-01-24 | XMS | Encounter Summary ---
Demographics + + + | Address | [address] | | | [place] [address] | + + + | Home Phone | | + + + | Preferred Language | Unknown | + + + | Marital Status | Single | + + + | Buddhist Affiliation | 1013 | + + + | Race | Unknown | + + + | Ethnic Group | Unknown | + + + Author + + + | Author | [facility] [place] | | | and [place] | + + + | Organization | [facility] [place] | | | and [place] [...] [place] | | | | | [address] | | + + + + + Care Team Providers + +------+ + | Care Manager Flight Name | Role | Phone | + [...] NEPHROLOGY [address] | MD [address] | Appointment | | | | [address] [place] [address] | [place] [address] [place] | | | | | [place], [place] | [place] [address] | | | | | [address] | [phone] | | | | | [phone] | | | +--------+ + + + [...] | | | | [address] [facility] | | | | | | [address] [place] | | | | | | [id number] | | | | | | | [...] | Visit | | MD Lars [address] | | | | | | [address] | | | | | | [place] [address] | | | | | | [phone] | | | | | | | | +--------+---------+ + + + as of this encounter Visit Diagnoses Not on filein this encounter"
--- OUTSIDE RECORDS SUMMARY | ~2018-01-24 | XMS | Encounter Summary ---
Demographics + + + | Address | [address] | | | [place] [address] | + + + | Home Phone [...] | Author | [facility] [place] | | | and [place] | + + + | Organization | [facility] [place] | | | and [place] | [...] [place] | | | | | [address] | | + + + + + Care Team Providers + +------+ + | Care Public Safety Dispatcher Name | Role | Phone | + [...] Eddie Condon | | | | | [phone] | [place] [address] | | +--------+ + + + + [...] | | | | | | [address], [place] | | | | | | [address] [place] | | | | | | [address] | | | | | | | | +--------+---------+ + + + | 05/12/ | Office | Pulmonology | Adolfo Zazueta, | | | 2017 | Visit | | MD Jac Tong | | | | | | [place], [place] | | | | | | [place] | | | | | | [address] | | | | | | | | +--------+---------+ + + + | 07/27/ | Office | Sleep Medicine | Jermaine Fairchild | | | 2018 | Visit | | MD Jac Sousa | | | | | | [address] [place] | | | | | | [place] [address] | | | | | | [phone] | | | | | | | [...]
--- OUTSIDE RECORDS SUMMARY | ~2018-01-24 | XMS | Clinical Summary ---
Demographics + + + | Address | [address] | | | [place] [address] | + + + | Home Phone [...] Team Providers + +------+ + | Care Ferryboat Operator Name | Role | Phone | + +------+ + | Bassam Ross DO | PP | | + +------+ + Source Comments [facility] and [facility] InPatient.[facility] Allergies + + + + + + [...] Morbid obesity with BMI of 60.0-69.9, adult ([facility]) | 02/25/2016 | + + [...] | Heart Disease | Father | | [place] 76 | + + +------+ + | [...] | | 2017 | Visit | | [address] | | | | | | [place], [place] | | | | | | [address] | | | | | | [phone] | | | | | | | | +--------+---------+ + + + | 07/09/ | Office | | Juan Antonio Mclaughlin, | | | 2019 | Visit | | [address] | | | | | | [place], [place] | | | | | | [address] | | | | | | [phone] | | | | | | | [...] | | | | | | | /[address] | | | | | | | | [address] | + +------+--------+ +--------+--------+--------+ | Dion Deraslanted: Qty: | | N/A: | | | 08/29/ | 12BSGE | | 2 on 02/07/2015 by Dianelys Reed | | | 2017 | C60A / | | Dori Ferris MD | | n | | | | | | | | | | | | /[address] | | | | | | | [...] | | | + +--------+ +--------+-------+---------+ | SCIENTIFIC RECRUITER MEDICAID | SCIENTIFIC RECRUITER | xxxxxxxx | Medica | | | [...] | 1970 | +- | [place] [address] | | | kevin | | | [address] | | + +--------+ +--------+ + + | DEANN JOSÉ | Behavi | Self | [birth year] | Home: | | | | oral | | 1970 | +- | [place] [address] | | | Health | | | [address] | | + +--------+ +--------+ + +
--- OUTSIDE RECORDS SUMMARY | ~2018-01-24 | XMS | Encounter Summary ---
Demographics + + + | Address | [address] | | | [place] [address] | + + + | Home Phone [...] Team Providers + +------+ + | Care Sausage Cooker Name | Role | Phone | + [...] | Other | | 2017 | | Digestive Health | MD [address] | | | | | Center at [facility] [address] [facility] [place] | | | | | [place] [facility] | [address] | | | | | for Health and | [phone] | | | | | Healing [address] [place] [address] | | | | | | [place], [place] | | | | | | [address] | | | | | | [phone] | | | +--------+ + + + [...] 02/26/ | Office | Surgery | Yaritza Venegas [place], | | | 2017 | Visit | | MD [address] | | | | | | [place], [place] | | | | | | [address] | | | | | | [phone] | | | | | | | | +--------+---------+ + + + | 07/09/ | Office | Cardiology | Juan Antonio Mclaughlin, | | | 2018 | Visit | | MD [address] | | | | | | [place], [place] | | | | | | [address] | | | | | | [phone] | | | | | | | | +--------+---------+ + + + + +--------+ + + | Name | Priori | Associated Diagnoses | Order Schedule | | | ty | | | + +--------+ + + | COMPLETE METABOLIC SET | Routin | Diabetes mellitus | Expected: 01/12/2018 | | (NA,K,CL,CO2,BUN,CREAT,GLUC,CA, | e | type 2, | (Approximate), | | T,ALT,BILI TOTAL,ALK | | diet-controlled | Expires: 02/12/2019 | | PHOS,ALB,PROT TOTAL) | | (HCC) Morbid | | | | | obesity with BMI of | | | | | 60.0-69.9, adult | | | | | (HCC) Nephrotic | | | | | syndrome | | + +--------+ + + | TSH | Routin | Diabetes mellitus | Expected: 01/12/2018 | | | e | type 2, | (Approximate), | | | | diet-controlled | Expires: 02/12/2019 | | | | (HCC) Morbid | | | | | obesity with BMI of | | | | | 60.0-69.9, adult | | | | | (HCC) Nephrotic | | | | | syndrome | | + +--------+ + + | LIPID SET (TRIG, T CHOL, HDL, | Routin | Diabetes mellitus | Expected: 01/12/2018 | | CALC LDL) | e | type 2, | (Approximate), | | | | diet-controlled | Expires: 02/12/2019 | | | | (HCC) Morbid | | | | | obesity with BMI of | | | | | 60.0-69.9, adult | | | | | (HCC) Nephrotic | | | | | syndrome | | + +--------+ + + | HEMOGLOBIN A1C, BLOOD | Routin | Diabetes mellitus | Expected: 01/12/2018 | | | e | type 2, | (Approximate), | | | | diet-controlled | Expires: 02/12/2019 | | | | (HCC) Morbid | | | | | obesity with BMI of | | | | | 60.0-69.9, adult | | | | | (HCC) Nephrotic | [...] + + | Nephrotic syndrome | + +"
--- OUTSIDE RECORDS SUMMARY | ~2018-01-24 | XMS | Encounter Summary ---
Demographics + + + | Address | [address] | | | [place] [address] | + + + | Home Phone [...] Team Providers + +------+ + | Care Cotton Ball Machine Tender Name | Role | Phone [...] | | | | | Center at [facility] [address] [facility] [place] | | | | | [place] [facility] | [address] | | | | | for Health and | [phone] | | | | | Healing [address] [place] [address] | | | | | | [place], [place] | | | | | | [address] | | | | | | [phone] | | | +--------+ + + + [...] [place] | | | | | | [place], [place] | | | | | | [address] | | | | | | [phone] | | | | | | | | +--------+---------+ + + + | 07/09/ | Office | Cardiology | Juan Antonio Mclaughlin, | | | 2018 | Visit | | [address] | | | | | | [place] | | | | | | [address] | | | | | | [phone] | | | | | | | | +--------+---------+ + + + as of this encounter Visit Diagnoses Not on filein this encounter"
--- OUTSIDE RECORDS SUMMARY | ~2018-01-24 | XMS | Encounter Summary ---
Demographics + + + | Address | [address] | | | [place] [address] | + + + | Home Phone [...] Team Providers + +------+ + | Care Competitive Shopper Name | Role | Phone | + [...] | | | | | Center at [facility] [address] [facility] [place] | | | | | [place] [facility] | [address] | | | | | for Health and | [phone] | | | | | Healing [address] [place] [address] | | | | | | [place], [place] | | | | | | [address] | | | | | | [phone] | | | +--------+ + + + [...] [address] | | | | | | [place], [place] | | | | | | [address] | | | | | | [phone] | | | | | | | | +--------+---------+ + + + | 07/09/ | Office | Cardiology | Juan Antonio Mclaughlin, | | | 2018 | Visit | | MD [address] | | | | | | [place], [place] | | | | | | [address] | | | | | | [phone] | | | | | | | [...]
--- OUTSIDE RECORDS SUMMARY | ~2018-01-24 | XMS | Encounter Summary ---
Demographics + + + | Address | [address] | | | [place] [address] | + + + | Home Phone | | + + + | Preferred Language | Unknown | + + + | Marital Status | Single | + + + | Hinduism Affiliation | Unknown | + + + | Race | Unknown | + + + | Ethnic Group | Unknown | + + + Author + + + | Author | [facility] [employer] [facility] | + + + | Organization | [facility] | + + + | Address | Unknown | + + + | Phone | Unavailable | + + + Support + + +---------+ + | Name | Relationship | Address | Phone | + + +---------+ + | An Carlin | ECON | , [place] | | + + +---------+ + Care Team Providers + +------+ + | Care Cutter Inspector Name | Role | Phone | + +------+ + | Iqra Peralta MD | PCP | | + +------+ + Encounter Details +--------+ + + + + | Date | Type | Department | Care Team | Description | +--------+ + + + + | 01/19/ | Hospital | [facility] | Yonatan Gonzalez | Arrived | | 2018 | Encounter | [facility] | ATUL Hawkins | | | | | Preadmission | [place], [place] | | | | | Services [address] | [phone] | | | | | [place], [place] | | | | | | [...] Taking for the 01/19/18 encounter (Hospital Encounter) [facility] ROOM 4 Medication Sig INSTRUCTIONS albuterol (PROVENTIL [...] to check-in desk and are in the [facility] waiting room. in this encounter Medications at [...] TEETH | | | | | St [place], [place] | | | | | | [address] | | | | | | | | +--------+ + + + + | 01/26/ | Procedure | General Surgery | | | | 2017 | Pass | | | | +--------+ + + + + | 01/26/ | Hospital | General Surgery | Yonatan Gonzalez | | | 2018 | Encounter | | [place], ATUL [address] | | | | | | [place] | | | | | | [address] | | | | | | | [...] + + + + | Calculated R Weldon | -2 | degrees | [facility] | + + + + + | Calculated T Weldon | 28 | degrees | [facility] E[facility] [...] | + + + + + | [facility] | [address] | [place] [address] | | + + + + + MRSA by PCR (01/19/2018 5:50 PM) + + + + + | Component | Value | Ref Range | Performed At | + + + + + | SOURCE | NARES(NOSE) | | [facility] | + + + + + | MRSA PCR | NEGATIVEComment: Testing | NEGATIVE | [facility] | | | performed at [facility];[address] | | | | | [address];[place], [place] | | | | | [address] | | | + + + + + + + | Specimen | + + | Nasopharyngeal - | | Nares(Nose) | + + + + + + + | Performing | Address | City/State/Zipcode | Phone Number | | Organization | | | | + + + + + | [facility] | [address] | [place] [address] | | + + + + + in this encounter Visit Diagnoses Not on filein this encounter
--- OUTSIDE RECORDS SUMMARY | ~2018-01-24 | XMS | Encounter Summary ---
Demographics + + + | Address | [address] | | | [place] [address] | + + + | Home Phone | | + + + | Preferred Language | Unknown | + + + | Marital Status | Single | + + + | Church Affiliation | NON | + + + [...] Providers + +------+ + | Care Service Porter Name | Role | Phone | + [...] | | | | Sleep apnea, | [place], | [place], [place] | | | | | unspecified | [place] | [address] | | | | | type | [address] | Phone: | | | | | Gastroesopha | Phone: | [phone] | | | | | geal reflux | [phone] | Fax: | | | | | disease, | Fax: | [phone] | | | | | esophagitis | [phone] | | | | | | presence [...] Morbid | | | | Center at [facility] [address] | [address] [place], [place] | obesity with BMI of | | | | [address] [place] [address] | [address] | 60.0-69.9, adult | | | | for Health and | [phone] | ([facility]) | | | | Healing [facility] | | | | | | [place], [place] | | | | | | [address] | | | | | | [phone] | | | +--------+---------+ + + + [...] once daily Savings car d available at www.[employer] no government funded patients, $95 off 1st month then $65 off per month thereafter. Belviq (Lorcaserin Immediate Release (IR) or extended release (XR) tablets) ~$270-280 / ~$8 00-830 Orally, twice daily* Savings card available at www.belviq[employer]Learning no government funde d patients (unless Medicare [...] twice daily* Savings card moriah frazier at www.contrave.ClickHome everyone but Medicaid eligible, takes up to $164 off per month or $492 off per 3 months. Saxenda (Liraglutide) ~$1200 / ~$3600 Subcutaneous injection, once daily Savings card avail able at www.saxeda.ClickHome max benefit of $200 off per prescription. in this encounter Plan of Treatment +--------+---------+ + + + | Date | Type | Specialty | Care Team | Description | +--------+---------+ + + + | 02/26/ | Office | Surgery | Yaritza Venegas, | | | 2017 | Visit | | MD [address] | | | | | | [place], [place] | | | | | | [address] | | | | | | [phone] | | | | | | | | +--------+---------+ + + + | 07/09/ | Office | Cardiology | Juan Antonio Mclaughlin, | | | 2018 | Visit | | MD [address] | | | | | | [place], [place] | | | | | | [address] | | | | | | [phone] | | | | | | | [...] 02/08/2019 | | PHOS,ALB,PROT TOTAL) | | ([facility]) Nephrotic | | | | | syndrome | | + +--------+ + + as of this encounter Visit Diagnoses + + | Diagnosis | + + | Nephrotic syndrome - Primary | + + | Morbid obesity with BMI of 60.0-69.9, adult (HCC) | + +
--- OUTSIDE RECORDS SUMMARY | ~2018-01-24 | XMS | Encounter Summary ---
Demographics + + + | Address | [address] | | | [place] [address] | + + + | Home Phone | | + + + | Preferred Language | Unknown | + + + | Marital Status | Single | + + + | Buddhist Affiliation | 1013 | + + + | Race | Unknown | + + + | Ethnic Group | Unknown | + + + Author + + + | Author | [facility] | | | and Ozzyana | + + + | Organization | [facility] | | | and [...] [place] | | | | | [address] | | + + + + + Care Team Providers + +------+ + | Care Pumper Hand Name | Role | Phone | + +------+ + | Iqra Peralta MD | PCP | Unavailable | + +------+ + Encounter Details +--------+ + + + + | Date | Type | Department | Care Team | Description | +--------+ + + + + | 01/04/ | Abstract | [facility] [place] | Anita uL W, | | | 2017 | | NEPHROLOGY [address] | | | | | [address] | [address] [place] | | | | | [place], [place] | [place] [address] | | | | | [address] | [phone] | | | | | [phone] | | | +--------+ + + + [...] [place] | | | | | | [address] | | | | | | | | +--------+---------+ + + + | 05/12/ | Office | Pulmonology | Adolfo Zazueta, | | | 2017 | Visit | | MD Jac Tong | | | | | | [place], [place] [address] | | | | | | [place] | | | | | | [address] | | | | | | | | +--------+---------+ + + + | 07/27/ | Office | Sleep Medicine | Jermaine Fairchild | | | 2018 | Visit | | MD Jac Sousa | | | | | | [place] | | | | | | [place] [address] | | | | | | [phone] | | | | | | | [...]
--- OUTSIDE RECORDS SUMMARY | ~2018-01-24 | XMS | Encounter Summary ---
Demographics + + + | Address | [address] | | | [place] [address] | + + + | Home Phone | | + + + | Preferred Language | Unknown | + + + | Marital Status | Single | + + + | Pentecostal Affiliation | 1013 | + + + | Race | Unknown | + + + | Ethnic Group | Unknown | + + + Author + + + | Author | [facility] | | | and Ozzyana | + + + | Organization | [facility] | | | [...] [place] | | | | | [address] | | + + + + + Care Team Providers + +------+ + | Care Group Marketing Vp Name | Role | Phone | + [...] + + | 01/21/ | [facility] | [facility] | Jermaine Fairchild | ANNABEL (obstructive | | 2018 | Visit | SLEEP DISORDER [address] | MD [address] | sleep apnea) | | | | [address] [place] | [address] [place] | (Primary Dx); | | | | [place] [address] | [place] [address] | Obesity | | | | [phone] | [phone] | hypoventilation | | | | | [...] 371 pounds. She was recently seen at [facility] [place] where she was told that no further bariatric surgery could be done. Repeat PSG guided PAP titration was performed on 09/21/2017. This revealed that she required iVAPS: Target Va 4.5, Tgt SD 20; EPAP 11; Max PS 16cm; Min PS 6cm; TiMin 0.8; Rise Time 40 0; Trigger M, Cycle M with oxygen 5 l/min is advised to control ANNABEL and Obesity Hypoventilat ion which was prescribed. It was also suggested that she re-explore the possibility of [facility] bariatric surgery. She states she now has a new primary care physician Dr. Peralta has arr anged for bariatric consultation to [facility] in [place]. She has worn her Resmed VPAPST-A(iVAPS) for [...] has been to see a surgeon in [place] recently who is referring her back to the weight loss surgeon [facility] and she has an appointment 01/26/2018 at [facility] to reconsider bariatric surge ry. BP 140/80 [...] [place] | | | | | | [address] | | | | | | | | +--------+---------+ + + + | 05/12/ | Office | Pulmonology | Adolfo Zazueta, | | | 2017 | Visit | | MD Jac Tong | | | | | | [place], [place] | | | | | | [place] | | | | | | [address] | | | | | | | | +--------+---------+ + + + | 07/27/ | Office | Sleep Medicine | Jermaine Fairchild | | | 2018 | Visit | | MD Jac Sousa | | | | | | [place] | | | | | | [place] [address] | | | | | | [phone] | | | | | | | [...]
--- OUTSIDE RECORDS SUMMARY | ~2018-01-24 | XMS | Encounter Summary ---
Demographics + + + | Address | [address] | | | [place] [address] | + + + | Home Phone [...] Team Providers + +------+ + | Care Grader Marker Name | Role | Phone | + +------+ + | Bassam Ross DO | PCP | | + +------+ + Encounter Details +--------+ + + + + | Date | Type | Department | Care Team | Description | +--------+ + + + + | 01/20/ | Abstract | Cardiology | Juan Antonio Mclaughlin, | | | 2018 | | Preventive at [facility] | [address] | | | | | [address] | [place], [place] | | | | | Mailcode: CH9A | [address] | | | | | [facility] | [phone] | | | | | and Healing | | | | | | [place], [place] | | | | | | [address] | | | | | | [phone] | | | +--------+ + + + [...] [address] | | | | | | [facility] [place] | | | | | | [address] | | | | | | [phone] | | | | | | | | +--------+---------+ + + + | 07/09/ | Office | Cardiology | Juan Antonio Mclaughlin, | | | 2018 | Visit | | MD [address] | | | | | | [place] | | | | | | [address] | | | | | | [phone] | | | | | | | | +--------+---------+ + + + as of this encounter Visit Diagnoses Not on filein this encounter"
--- OUTSIDE RECORDS SUMMARY | ~2018-01-24 | XMS | Encounter Summary ---
Demographics + + + | Address | [address] | | | [place] [address] | + + + | Home Phone | | + + + | Preferred Language | Unknown | + + + | Marital Status | Single | + + + | Orthodox Affiliation | Unknown | + + + | Race | Unknown | + + + | Ethnic Group | Unknown | + + + Author + + + | Author | [facility] | + + + | Organization | [facility] | + + + | Address | Unknown | + + + | Phone | Unavailable | + + + Support + + +---------+ + | Name | Relationship | Address | Phone | + + +---------+ + | An Carlin | E[place] | , [place] | | + + +---------+ + Care Team Providers + +------+ + | Care Metal Off Bearer Name | Role | Phone | + [...] [place] | | | | | | [address] | | | | | | | [...] TEETH | | | | | St [place], [place] | | | | | | [address] | | | | | | | [...] [address] | | | | | | [place], [place] | | | | | | [address] | | | | | | | [...] DEANN JOSÉ Date of : 1970 | [facility] | | Performing Physician: Bassam [...] | maxP.03 mmHg TR Vmax: 2.06 m/s Timber Estimator: | | | Authenticated by: Bassam Hernandez Report Date/Time: 11-13-2017 | | | 16:25:37 | | + + + + ----+ | Procedure Note | + ----+ | Tommy Gloria Results In 11/13/2017 4:30 PM PDT Patient Name: Jade JOSÉ of | | : 1970Accession: [id number] Physician: Bassam | | Mary INDICATIONS------ | [...] | | cmLVPWd: 1.18 cmLVOT Area: 3.16 [id number] Diam: 2.00 cm%FS: 26.85 %EF(Teich): | | [...] (A-L): 32.42 ml/m2LAAs A2C: | | 21.37 bp4BNCRJ A-L A2C: 73.73 mlLALs A2C: 5.26 cmLAAs A4C: 24.63 ph8WFFBT A-L A4C: | | 95.79 mlLALs A4C: 5.37 cmRAAs: 21.57 ds2UOHND A-L: 68.54 mlRAESV MOD: 63.21 | | mlRALs: 5.76 cmTAPSE: 1.68 cmAV maxP.68 mmHgAV meanP.98 mmHgAV Vmax: | | 1.19 m/Edwin Vmean: 0.83 m/Edwin VTI: 23.45 cmAVA Vmax: 2.32 cm2AVA (VTI): 2.48 | | [id number] Vmax: 0.00 cm2/m2AVAI (VTI): 0.00 cm2/m2LVOT maxP.06 [...] VTI: 26.10 cmMVA (VTI): | | 2.23 [id number] e': 0.08 m/sSeptal E/e': 17.11 Lateral e': [...] |TR Vmax: 2.06 m/s | | | |Timber Estimator: | |Authenticated by: Bassam Hernandez | |Report [...] | [address] | [place] [address] | | + + + + + in this encounter Visit Diagnoses + + | Diagnosis | + + | Edema, unspecified type | + +"
[~2018-01-24 16:35] MED LIST changes: +KEFLEX500 MG PO; +POTASSIUM CHLO10 MEQ PO
== END 2018-01-24 16:57 | disposition home or self-care (01) ==
LOC: ED 16:35
DX: R21 Rash and other nonspecific skin eruption (principal)

== ENCOUNTER 2018-08-12 11:57 | Observation (INO) | payer OTHER ==
[~2018-08-12] VITALS: Ht 160 cm; Wt 180.8 kg
--- OUTSIDE RECORDS SUMMARY | ~2018-08-12 | XMS | Encounter Summary ---
Demographics + + + | Address | [address] | | | [place] [address] | + + + | Home Phone | | + + + | Preferred Language | Unknown | + + + | Marital Status | Single | + + + | Yazdanism Affiliation | Unknown | + + + | Race | Unknown | + + + | Ethnic Group | Unknown | + + + Author + + + | Author | [facility] | | | and [place] | + + + | Organization | [facility] | | | and [place] | + + + | Address | Unknown | + + + | Phone | Unavailable | + + + Support + + +---------+ + | Name | Relationship | Address | Phone | + + +---------+ + | An Carlin | E[place] | , [place] | | + + +---------+ + Care Team Providers + +------+ + | Care Merchandise Adjustment Clerk Name | Role | Phone | + +------+ + | Iqra Peralta MD | PCP | | + +------+ + Reason for Visit + + + | Reason | Comments | + + + | Pulmonary Disease | 10 mo follow up | | Appointment | | + + + Evaluate & Treat (Routine) +--------+--------+ + + + + | Status | Reason | Specialty | Diagnoses / | Referred By | Referred To | | | | | Procedures | Contact | Contact | +--------+--------+ + + + + | Closed | | Pulmonary | Diagnoses | Fabian, | [place], | | | | Disease / | Mild | Iqra Malcolm MD | MD Adolfo | | | | Pulmonology | persistent | [address] | [address] | | | | | asthma, | [address] | [place], Level | | | | | uncomplicate | [place], | [place] | | | | | d | [place] [address] | [place] | | | | | Congenital | Phone: | [phone] Phone: | | | | | central | [phone] | [phone] | | | | | alveolar | Fax: | Fax: | | | | | hypoventilat | [phone] | [phone] | | | | | ion syndrome | | | | | | | Procedures | | | | | | | F/U | | | +--------+--------+ + + + + Encounter Details +--------+---------+ + + + | Date | Type | Department | Care Team | Description | +--------+---------+ + + + | 05/31/ | Office | [facility] | Adolfo Zazueta, | Restrictive lung | | 2018 | Visit | PULMONARY [address] | disease secondary to | | | | [place], | [place], [place] | [place] ([place] | | | | [place] [address] | [place], [place] | Dx); Mild persistent | | | | [phone] | [address] | asthma without | | | | | | complication | +--------+---------+ + + + Social History + + + +--------+ + | Tobacco Use | Types | Packs/Day | Years | Date | | | | | Used | | + + + +--------+ + | Former Smoker | Cigarettes | 0.5 | 16 | 09/21/1984 - | | | | | | 06/01/1997 | + + + +--------+ + + +---+---+---+ | Smokeless Tobacco: | | | | | Never Used | | | | + +---+---+---+ + + +---------+ + | Alcohol Use | Drinks/We | oz/Week | Comments | | | ek | | | + + +---------+ + | No | 0 | 0.0 | | | | Standard | | | | | drinks or | | | | | | | | | | equivalen | | | | | t | | | + + +---------+ + [...] + + + + | Pulse | 94 | 05/31/20187 PST | + + + + | Temperature | - | - | + + + + | Respiratory Rate | - | - | + + + + | Oxygen Saturation | 97% | 05/31/20181326 PST | + + + + | Inhaled Oxygen | - | - | | Concentration | | | + + + + | Weight | 181.8 kg (400 lb | 05/31/2018 1327 PST | | | 12.7 oz) | | + + + + | Height | 160 cm (5' 3") | 05/31/2018 1327 PST | + + + + | Body Mass Index | 71 | 05/31/2018 1327 PST | + + + + in this encounter Instructions Patient Instructions - Adolfo Zazueta MD - 05/31/2018 1330 PST Asthma (Adult) Asthma is a disease where the medium and small air passages within the lung go into spasm and restrict the flow of air. Inflammation and swelling of the airways cause further blocka ge. During an acute asthma attack, these factors cause trouble breathing, wheezing, cough an d chest tightness. An asthma attack can be triggered by many things. Common triggers include infections such a s the common cold, bronchitis, and pneumonia. Irritants such as smoke or pollutants in the a ir, very cold air, emotional upset, and exercise can also trigger an attack. Inmany adults with asthma, allergies todust, mold, pollen and animal dander can cause an asthma attack. Skipping doses of daily asthma medicine can also bring on an asthma attack. Asthma can be controlled using theproper medicines prescribed by your healthcare provider and avoiding exposure to known triggers including allergens and irritants. Home care Take prescribed medicine exactly at the times advised. If you need medicine such as from a hand held inhaler or aerosol breathing machine more than every 4 hours, contact your [facility] provider or seek immediate medical attention. If prescribed an antibiotic or predniso ne, take all of the medicine as prescribed, even if you are feeling better after a few days. Don't smoke. Avoid being exposed to the smoke of others. Some people with asthma have worsening of their symptoms when they take aspirin and non- steroidal or fever-reducing medicines like ibuprofen and naproxen. Talk to your healthcare p cristopher if you think this may apply to you. Follow-up care Follow up with your healthcare provider, or as advised. Always bring all of your current me dicines to any appointments with your healthcare provider. Also bring a complete list of med icines eventhose not taken for asthma. If you don't already have one, talk to your health are provider about developing your own "Asthma Action Plan." A pneumococcal (pneumonia)vaccine and yearly flu shot (every fall) are recommended. Ask y our doctor about this. When to seek medical advice Call your healthcare provider right away if any of these occur: Increased wheezing or shortness of breath Need to use your inhalers more often than usual without relief Fever of 100.4F (38C) or higher, or as directed by your healthcare provider Coughing up lots of dark-colored or bloody sputum (mucus) Chest pain with each breath If you use a peak flow meter as part of an Asthma Action Plan, and you are still in the yellow zone (50% to 80%) 15 minutes after using inhaler medicine. Call 911 Call 911 if any of the following occur Trouble walking or talking because of shortness of breath If you use a peak flow meter as part of an Asthma Action Plan andyou are still in the red zone (less than 50%) 15 minutes after using inhaler medicine Lips or fingernails turning arizmendi or blue Date Last Reviewed: 09/29/201619992684-2752 [employer]. [address] [place] [address], [place] [address]. All righ ts reserved. This information is not intended as a substitute for professional medical care. Always follow your healthcare professional's instructions. in this encounter Progress Notes Adolfo Zazueta MD - 05/31/2018 9560 PSTFormatting of this note may be different from keily jaeger original. Pulmonary Follow Up 05/31/2018 HPI Aspen Darden is a 47 y.o. female patient of Iqra Peralta MD here today for follow up of asthma and an restrictive lung disease secondary to morbid obesity. The patient's last visit was on 07/10/17. Since the last visit she feels like their asthma h as been stable. They have not had any acute illnesses resulting in worsening asthma symptom s. They have not required a burst of prednisone since our last appointment. Specifically 0 tapers of prednisone have occurred over the interval. Lastly Aspen notes 0 ED visits and 0 hospitalizations for asthma have occurred since the last appointment. Their controller medication regimen currently consists of Qvar. They do feel like this med ication regimen is effective at controlling their symptoms. Currently Aspen is using their rescue albuterol, Ventolin, 1 times a week. Triggers of their asthma include upper respiratory tract infections and pollen. She does n ot have nocturnal symptoms of wheezing, chest tightness or cough. She does not measure thei r peak flow. Currently Aspen reports being able to walk 100 feet at their own pace on level ground befor e becoming symptomatic. They are not exercising regularly. Current exercise consists of mi nimal walking. She does not cough chronically, and does not produce mucous. Aspen does not report symptoms of heartburn or acid reflux. They have not had recent symptoms of nasal congestion, runny n ose or post nasal drip. New triggers since the last appointment include none. Aspen Darden is not smoking cigarettes. The patient have received this year's influenza vaccination. They are up to date with thei r Pneumovax and Prevnar 13. The patient's weight is down 19 pounds and 6 ounces since our last clinic appointment. Past Medical History Past Medical History: Diagnosis Date Acid reflux disease Allergic rhinitis due to pollen Anemia patent denies Asthma adult diagnosis Central alveolar hypoventilation syndrome COPD (chronic obstructive pulmonary disease) ([facility]) patent denies Cyst of ovary Depression with anxiety Diabetes mellitus type 2, diet-controlled ([facility]) 02/15/2015 GROSSMAN (dyspnea on exertion) Endometriosis s/p GLENN BSO Fracture, humeral 2012 Hypertensive disorder Hypothyroidism Insomnia Lymphedema MRSA (methicillin resistant Staphylococcus aureus) septicemia ([facility]) left foot source Nephrotic syndrome Previous. Resloved per pt. resport. Obesity ANNABEL (obstructive sleep apnea) ~2003 Wears CPAP, sees Dr. Fairchild Osteoarthritis Periodic limb movement disorder (PLMD) Vitamin D deficiency Allergies: Allergies Allergen Reactions Amoxicillin Hives Clarithromycin Hives Fluticasone-Salmeterol Hives Gabapentin Hives Phendimetrazine Tartrate Palpitations Sulfa Antibiotics Rash Phendimetrazine Other (See Comments) Hydrocodone Itching Oxycodone Itching Medications: Current Outpatient Prescriptions: albuterol (VENTOLIN HFA) 90 mcg/puff inhaler, Inhale 2 puffs into the lungs every 4 ho urs as needed for Shortness of Breath., Disp: , Rfl: amitriptyline (ELAVIL) 25 mg tablet, amitriptyline 25 mg tablet Take 2 tablets every day by oral route at bedtime., Disp: , Rfl: atorvaSTATin (LIPITOR) 10 mg tablet, Take 10 mg by mouth Daily., Disp: , Rfl: 1 buPROPion (WELLBUTRIN XL) 150 mg 24 hr tablet, take 1 tablet by mouth once daily WITH 300 MG TABLET, Disp: , Rfl: 0 buPROPion (WELLBUTRIN XL) 300 mg 24 hr tablet, take 1 tablet by mouth once daily, Disp : , Rfl: 0 cefadroxil (DURICEF) 500 mg capsule, Take 500 mg by mouth Daily., Disp: , Rfl: diclofenac (VOLTAREN) 1% GEL, apply 2 to 4 grams to affected area OF KNEE FOR PAIN fou r times a day if needed, Disp: , Rfl: 0 dilTIAZem (TIAZAC) 360 MG 24 hr capsule, take 1 capsule by mouth at bedtime, Disp: , R fl: 0 empagliflozin (JARDIANCE) 25 mg tablet, Take 25 mg by mouth Daily., Disp: , Rfl: ergocalciferol (VITAMIN D-2) 50,000 units capsule, Take 50,000 Units by mouth Three ti mes a week., Disp: , Rfl: FEROSUL 325 (65 Fe) MG tablet, Take 325 mg by mouth Twice Daily., Disp: , Rfl: furosemide (LASIX) 40 mg tablet, Take 40 mg by mouth Twice daily as needed for Edema. , Disp: , Rfl: gabapentin (NEURONTIN) 100 mg capsule, Take 100 mg by mouth 3 times daily., Disp: , Rf l: HYDROcodone-acetaminophen (NORCO) 5-325 mg per tablet, Take 1 tablet by mouth Twice Da kevin., Disp: , Rfl: 0 levothyroxine (SYNTHROID) 88 mcg tablet, Take 88 mcg by mouth Daily., Disp: , Rfl: LORazepam (ATIVAN) 0.5 mg tablet, Take 0.5 mg by mouth Daily as needed., Disp: , Rfl: losartan (COZAAR) 25 mg tablet, Take 25 mg by mouth Daily., Disp: , Rfl: 1 metFORMIN (GLUCOPHAGE) 1000 MG tablet, take 1 tablet by mouth twice a day, Disp: , Rfl : 0 omeprazole (PRILOSEC) 20 mg capsule, Take 20 mg by mouth every morning (before ). Take one capsule daily , Disp: , Rfl: 1 pramipexole (MIRAPEX) 1.5 MG tablet, Take 1.5 mg by mouth 2 times daily., Disp: , Rfl: Uncoded Medication, Lifelong-99;Obstuctie Sleep Apnea, Disp: 1 Device, Rfl: 0 UNCODED MEDICATION, Convert CPAP to purchase for ANNABEL (327.23), Disp: 1 Device, Rfl: 0 UNCODED MEDICATION, Wear when sleeping., Disp: 1 Device, Rfl: 0 UNCODED MEDICATION, Diagnosis: Obstructive Sleep Apnea ICD-9: 327.23 Length of Need: 9 9 Months, Disp: 1 Device, Rfl: 0 valACYclovir (VALTREX) 1 g tablet, Take 1 g by mouth Daily., Disp: , Rfl: VENTOLIN HFA 108 (90 BASE) MCG/ACT inhaler, Inhale 2 puffs into the lungs every 4 hour s as needed for Wheezing., Disp: , Rfl: warfarin (COUMADIN) 5 mg tablet, 10 mg. Take 7.5mg three days per week and 5mg four da ys per week or as directed, Disp: , Rfl: Immunizations: Immunization History Administered Date(s) Administered INFLUENZA PF 18 Y OR >,TRIVALENT RECOMBINANT 02/21/2013, 03/01/2015 INFLUENZA PF QUAD(PED/ADOL/ADULT),PSKT or VIAL 02/28/2016, 02/19/2017, 03/16/2017 INFLUENZA PF TRIVALENT(PED/ADOL/ADULT), PSKT 03/10/2016, 02/16/2018 INFLUENZA QUADR W/PRES (PED/ADOL/ADULT) MULTIDOSE 02/28/2016 INFLUENZA, UNSPECIFIED FORMULATION 03/20/2008, 02/19/2009, 02/20/2011, 02/21/2013, 03/01, 03/06/2015 Influenza, Whole 03/08/2001, 03/30/2002 MMR, 2 DOSE (PED/ADULT) 11/25/1996 PNEUMOCOCCAL CONJUGATE 13-VALENT (PCV13) 01/30/2013 PNEUMOCOCCAL POLYSACCHARIDE 23-VALENT (PPSV23) 07/02/2013, 11/18/2013, 02/16/2018 TD PF (2 LF TETANUS) (ADOL/ADULT) 11/25/1996 Objective Pulse 94 | Ht 1.6 m (5' 3") | Wt (!) 181.8 kg (400 lb 12.7 oz) | SpO2 97% Comment: RA | BMI 71.00 kg/m Appearance: Alert, cooperative, no distress, appears stated age. Head: Normocephalic, without obvious abnormality, atraumatic. Eyes: PERRL, conjunctiva/corneas clear. Nose: Nares normal, septum midline, mucosa normal, no drainage or sinus tenderness. Throat: Lips, mucosa, and tongue normal. Teeth/dentures normal. No thrush. Neck: Supple, symmetrical, no JVD. Lungs: No accessory muscle use, breath sounds are clear to auscultation bilaterally, no w heezes, crackles or rhonchi. No dullness to percussion. Chest Wall: No tenderness or deformity. Heart: Regular rate and rhythm, S1, S2 normal, no murmur, rub or gallop. Extremities: Extremities normal, atraumatic, no cyanosis, clubbing. 2+ edema to the knees b ilaterally. Edema left greater than right Skin: Warm and dry. Lymph nodes: Cervical and supraclavicular nodes normal. Neurologic: Gait normal. Data: None Assessment 1. Asthma mild persistent. Currently treated with Qvar 80 g per puff, 2 puffs inhale d twice a day. Over the last 11 months Ms. Darden has not experienced symptoms concerning for an exacerbation of her asthma. The patient is hoping to undergo bariatric surgery within the next 6 months. Her current a sthma control is adequate to likely tolerate such a surgery. 2. Restrictive lung disease secondary to morbid obesity. Ms. Darden's weight has decrease d nearly 20 pounds over the last 11 months. She continues to wear supplemental oxygen at [facility] through CPAP. No daytime hypoxemia. The patient is up-to-date with respect to her Prevnar, seasonal influenza vaccination and P neumovax. Plan 1. Continue controller medications with Qvar and as needed Ventolin. 2. Seasonal influenza vaccination is recommended for March 2019. 3. Pulmonary clinic follow-up appointment in 12 months time. CC: Iqra Peralta MDin this encounter Plan of Treatment +--------+---------+ + + + | Date | Type | Specialty | Care Team | Description | +--------+---------+ + + + | 09/14/ | Office | Sleep Medicine | Jermaine Fairchild | | | 2018 | Visit | | MD Lars [address] [place] [address] | | | | | | [facility] | | | | | | [place] [address] | | | | | | [phone] | | | | | | | | +--------+---------+ + + + as of this encounter Visit Diagnoses + + | Diagnosis | + + | Restrictive lung disease secondary to obesity - Primary | + + | Other diseases of lung, not elsewhere classified | + + | Mild persistent asthma without complication | + + | Unspecified asthma | + +
--- OUTSIDE RECORDS SUMMARY | ~2018-08-12 | XMS | Encounter Summary ---
Demographics + + + | Address | [address] | | | [place] [address] | + + + | Home Phone | | + + + | Preferred Language | Unknown | + + + | Marital Status | Single | + + + | Judaism Affiliation | Unknown | + + + | Race | Unknown | + + + | Ethnic Group | Unknown | + + + Author + + + | Author | [facility] | | | and [place] | + + + | Organization | [facility] | | | and [...] Team Providers + +------+ + | Care Amusement Ride Inspector Name | Role | Phone | + [...] | | asthma, | [address] | [place], Level | | | | | uncomplicate | [place], | [place] | | | | | d | [place] [address] | [place] | | | | | Congenital | Phone: | [phone] Phone: | | | | | central | [phone] | [phone] | | | | | alveolar | Fax: | Fax: | | | | | hypoventilat | [phone] | [phone] | | | | | ion syndrome | | | | | | | Procedures | | | | | | | F/U | | | +--------+--------+ + + + + Encounter Details +--------+---------+ + + + | Date | Type | Department | Care Team | Description | +--------+---------+ + + + | 05/31/ | Office | [facility] | Adolfo Zazueta, | Restrictive lung | | 2018 | Visit | PULMONARY [address] | disease secondary to | | | | [place], | [place], Level II | obesity ([place] | | | | [place] [address] | [place], [place] | Dx); Mild persistent | | | | [phone] | [address] | asthma without | | | | [...] more than every 4 hours, contact your [facility] provider or seek immediate medical attention. If [...] turning arizmendi or blue Date Last Reviewed: 09/29/201619994756-8975 [employer]10E[employer]. [address] [place] [address], [place] [address]. All righ ts reserved. This information is not intended as a substitute for professional medical care. Always follow your healthcare professional's instructions. in this encounter Progress Notes Adolfo Zazueta MD - 05/31/2018 4160 PSTFormatting of this note may be different [...] hypoventilation syndrome COPD (chronic obstructive pulmonary disease) ([facility]) patent denies Cyst of ovary Depression with anxiety Diabetes mellitus type 2, diet-controlled ([facility]) 02/15/2015 GROSSMAN (dyspnea on exertion) Endometriosis s/p GLENN BSO Fracture, humeral 2012 Hypertensive disorder Hypothyroidism Insomnia Lymphedema MRSA (methicillin resistant Staphylococcus aureus) septicemia ([facility]) left foot source Nephrotic syndrome [...] She continues to wear supplemental oxygen at [facility] through CPAP. No daytime hypoxemia. The patient [...] 2018 | Visit | | MD Lars [address] [place] [address] | | | | | | [facility] | | | | | | [place] [address] | | | | | | [phone] | | | | | | | [...]
--- OUTSIDE RECORDS SUMMARY | ~2018-08-12 | XMS | Encounter Summary ---
Demographics + + + | Address | [address] | | | [place] [address] | + + + | Home Phone | | + + + | Preferred Language | Unknown | + + + | Marital Status | Single | + + + | Tenriism Affiliation | NON | + + + | Race | White | + + + | Ethnic Group | Not or | + + + Author + + + | Author | [facility] | + + + | Organization | [facility] | + + + | Address | Unknown | + + + | Phone | Unavailable | + + + Support + + +---------+ + | Name | Relationship | Address | Phone | + + +---------+ + | Jordan Aguirre | ECON | Unknown | Unavailable | + + +---------+ + Care Team Providers + +------+ + | Care Slip Caster Name | Role | Phone | + +------+ + | Iqra Peralta MD | PCP | | + +------+ + Encounter Details +--------+------+ + + + | Date | Type | Department | Care Team | Description | +--------+------+ + + + | 07/09/ | Lab | Laboratory at [facility] | | Impaired intestinal | | 2019 | | 3rd Floor [address] | | absorption; H/O | | | | [address] [place], | | bariatric surgery; | | | | [place] [address] | | Diabetes mellitus | | | | [phone] | | type 2, | | | [...] Description | +--------+---------+ + + + | 09/06/ | Office | Pain Management | Ramona Sunshine | | | 2019 | Visit | | Ross PhD [address] | | | | | | [place], [place] | | | | | | [address] | | | | | | [phone] | | | | | | | | +--------+---------+ + + + as of this encounter Procedures + +--------+ + + + | Procedure Name | Priori | Date/Time | Associated Diagnosis | Comments | | | ty | | | | + +--------+ + + + | CBC (HEMOGRAM) ONLY | Routin | 07/09/2018 | Impaired | Results for this | | | e | 4:20 PM | intestinal | procedure are in the | | | | PST | absorption H/O | results section. | | | | | bariatric surgery | | + +--------+ + + + | VITAMIN B1, WHOLE | Routin | 07/09/2018 | Impaired | Results for this | | BLOOD | e | 4:20 PM | intestinal | procedure are in the | | | | PST | absorption H/O | results section. | | | | | bariatric surgery | | + +--------+ + + + | VITAMIN D, | Routin | 07/09/2018 | Impaired | Results for this | | 25-HYDROXY, SERUM | e | 4:20 PM | intestinal | procedure are in the | | | | PST | absorption H/O | results section. | | | | | bariatric surgery | | + +--------+ + + + | HOMOCYSTEINE TOTAL, | Routin | 07/09/2018 | Impaired | Results for this | | PLASMA | e | 4:20 PM | intestinal | procedure are in the | | | | PST | absorption H/O | results section. | | | | | bariatric surgery | | + +--------+ + + + | COMPLETE METABOLIC | Routin | 07/09/2018 | Impaired | Results for this | | SET | e | 4:20 PM | intestinal | procedure are in the | | (NA,K,CL,CO2,BUN,CRE | | PST | absorption H/O | results section. | | AT,GLUC,CA,AST,ALT,B | | | bariatric surgery | | | JAYCEE TOTAL,ALK | | | | | | PHOS,ALB,PROT TOTAL) | | | | | + +--------+ + + + | METHYLMALONIC ACID, | Routin | 07/09/2018 | Impaired | Results for this | | SERUM | e | 4:20 PM | intestinal | procedure are in the | | | | PST | absorption H/O | results section. | | | | | bariatric surgery | | + +--------+ + + + | CBC ONLY | Routin | 07/09/2018 | Impaired | Results for this | | | e | 4:20 PM | intestinal | procedure are in the | | | | PST | absorption H/O | results section. | | | | | bariatric surgery | | + +--------+ + + + | FERRITIN | Routin | 07/09/2018 | Impaired | Results for this | | | e | 4:20 PM | intestinal | procedure are in the | | | | PST | absorption H/O | results section. | | | | | bariatric surgery | | + +--------+ + + + | PTH, SERUM | Routin | 07/09/2018 | Impaired | Results for this | | | e | 4:20 PM | intestinal | procedure are in the | | | | PST | absorption H/O | results section. | | | | | bariatric surgery | | + +--------+ + + + | VITAMIN B-12 | Routin | 07/09/2018 | Impaired | Results for this | | | e | 4:20 PM | intestinal | procedure are in the | | | | PST | absorption H/O | results section. | | | | | bariatric surgery | | + +--------+ + + + | HEMOGLOBIN A1C, | Routin | 07/09/2018 | Diabetes mellitus | Results for this | | BLOOD | e | 4:20 PM | type 2, | procedure are in the | | | | PST | diet-controlled | results section. | | | | | (HCC) | | + +--------+ + + + | IRON AND TIBC, SERUM | Routin | 07/09/2018 | Impaired | Results for this | | | e | 4:20 PM | intestinal | procedure are in the | | | | PST | absorption H/O | results section. | | | | | bariatric surgery | | + +--------+ + + + in this encounter Results CBC (HEMOGRAM) ONLY (07/09/2018 4:20 PM) + + + + + | Component | Value | Ref Range | Performed At | + + + + + | WHITE CELL COUNT | 10.53 | 3.50 - 10.80 K/cu mm | [facility] | | | | | SERVICES, CORE | + + + + + | RED CELL COUNT | 4.85 | 4.00 - 5.20 M/cu mm | [facility] | | | | | SERVICES, CORE | + + + + + | HEMOGLOBIN | 15.1 | 12.0 - 16.0 g/dL | [facility] | | | | | SERVICES, CORE | + + + + + | HEMATOCRIT | 47.8 (H) | 36.0 - 46.0 % | [facility] | | | | | SERVICES, CORE | + + + + + | MCV | 98.6 | 80.0 - 100.0 fL | [facility] | | | | | SERVICES, CORE | + + + + + | MCHC | 31.6 (L) | 32.0 - 36.0 g/dL | [facility] | | | | | SERVICES, CORE | + + + + + | RDW SD | 53.1 (H) | 35.1 - 46.3 fL | [facility] | | | | | SERVICES, CORE | + + + + + | PLATELET COUNT | 407 (H) | 150 - 400 K/cu mm | [facility] | | | | | SERVICES, CORE | + + + + + | MPV | 10.2 | 9.7 - 12.3 fL | [facility] | | | | | SERVICES, CORE | + + + + + | NRBC% | 0.0 | 0.0 - 0.3 % | [facility] | | | | | SERVICES, CORE | + + + + + | NRBC# | 0.00 | 0.00 - 0.02 K/cu mm | [facility] | | | | | SERVICES, CORE | + + + + + + + | Specimen | + + | Blood - Blood | + + + + + + + | Performing | Address | City/State/Zipcode | Phone Number | | Organization | | | | + + + + + | [facility] | [address] | [place] [address] | | | SERVICES, CORE | [address] | | | + + + + + HEMOGLOBIN A1C, BLOOD (07/09/2018 4:20 PM) + + + + + | Component | Value | Ref Range | Performed At | + + + + + | HEMOGLOBIN A1C | 6.2 (H)Comment: Hgb A1C | <5.7 % | [facility] | | | Interpretive | | SERVICES, | | | Information: | | SPECIAL IMM + | | | <5.7% - | | [facility] | | | Normal 5.7-6.4% - | | | | | Consistent with | | | | | pre-diabetes | | | | | >6.4% - Consistent with | | | | | diabetes | | | + + + + + + + | Specimen | + + | Blood - Blood | + + + + + | Narrative | Performed At | + + + | Alternate forms of testing such as fructosamine should be | [facility] | | considered for monitoring truck terminal 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 | | + + + + + + + + | Performing | Address | City/State/Zipcode | Phone Number | | Organization | | | | + + + + + | [facility] | [address] | [place] [address] | | | SERVICES, SPECIAL | [address] | | | | IMM + [place] | | | | + + + + + VITAMIN D, 25-HYDROXY, SERUM (07/09/2018 4:20 PM) + +-------+ + + | Component | Value | Ref Range | Performed At | + +-------+ + + | VITAMIN D 25 HYDROXY | 71.4 | 30 - 80 ng/mL | [facility] | | | | | SERVICES, CORE | + +-------+ + + + + | Specimen | + + | Blood - Blood | + + + + + | Narrative | Performed At | + + + | Reference Interval: 0-18years: Deficiency: <20 ng/mL | [facility] | | Optimum level: >or=20 | LABORATORY | | ng/mL | SERVICES, CORE | | >18years: Deficiency: <20 ng/mL | | | Insufficiency: 20-29 ng/mL | | | Optimum Level: 30-80 ng/mL | | | High: 81-150 ng/ml | | | Toxic: >150 ng/mL | | + + + + + + + + | Performing | Address | City/State/Zipcode | Phone Number | | Organization | | | | + + + + + | [facility] | [address] | [place] [address] | | | SERVICES, CORE | [address] | | | + + + + + VITAMIN B-12 (07/09/2018 4:20 PM) + +-------+ + + | Component | Value | Ref Range | Performed At | + +-------+ + + | VITAMIN B12 | 583 | 193 - 986 pg/mL | [facility] | | | | | SERVICES, CORE | + +-------+ + + + + | Specimen | + + | Blood - Blood | + + + + + + + | Performing | Address | City/State/Zipcode | Phone Number | | Organization | | | | + + + + + | [facility] | [address] | [place] [address] | | | SERVICES, CORE | [address] | | | + + + + + VITAMIN B1, WHOLE BLOOD (07/09/2018 4:20 PM) + + + + + | Component | Value | Ref Range | Performed At | + + + + + | VITAMIN B1, WHOLE | 142Comment: INTERPRETIVE | 70 - 180 nmol/L | [facility] | | BLOOD | INFORMATION: Vitamin | | [facility] - | | | B1, Whole Blood This | | [facility] | | | assay measures the | | | | | concentration of | | | | | thiamine diphosphate | | | | | (TDP), the primary | | | | | active form of vitamin | | | | | B1. Approximately 90 | | | | | percent of vitamin B1 | | | | | present in whole blood | | | | | is TDP. Thiamine and | | | | | thiamine monophosphate, | | | | | which comprise the | | | | | remaining 10 percent, | | | | | are not measured. Test | | | | | developed and | | | | | characteristics | | | | | determined by [facility] | | | | | Laboratories. See | | | | | Compliance Statement B: | | | | | [employer]/CSPerformed | | | | | by [address] | | | | | [address] [facility] [place] | | | | | [id number] | | | | | [phone].[employer]vi[employer]. | | | | | Iker mcclain MD, | | | | | Lab. Director | | | + + + + + + + | Specimen | + + | Blood - Blood | + + + + + + + | Performing | Address | City/State/Zipcode | Phone Number | | Organization | | | | + + + + + | [facility] | [address] | [place], [place] | | | [facility] | | [address] | | + + + + + PTH, SERUM (07/09/2018 4:20 PM) + +-------+ + + | Component | Value | Ref Range | Performed At | + +-------+ + + | PTH, SERUM | 74 | 18 - 88 pg/mL | [facility] | | | | | SERVICES, CORE | + +-------+ + + + + | Specimen | + + | Blood - Blood | + + + + + + + | Performing | Address | City/State/Zipcode | Phone Number | | Organization | | | | + + + + + | [facility] | [address] | [place] [address] | | | SERVICES, CORE | [address] | | | + + + + + METHYLMALONIC ACID, SERUM (07/09/2018 4:20 PM) + + + + + | Component | Value | Ref Range | Performed At | + + + + + | METHYLMALONIC ACID | 0.18Comment: | 0.00 - 0.40 umol/L | [facility] | | | INTERPRETIVE | | [facility] - | | | INFORMATION: MMA | | [facility] | | | Serum/Plasma, | | | | | | | | | | | | | | | Vitamin B12 Status | | | | | Test developed and | | | | | characteristics | | | | | determined by [facility] | | | | | Laboratories. See | | | | | Compliance Statement B: | | | | | [employer]/CSPerformed | | | | | by [address] | | | | | [address] [facility] [place] | | | | | [id number] | | | | | [phone].Aviary. | | | | | comIker MD, | | | | | Lab. Director | | | + + + + + + + | Specimen | + + | Blood - Blood | + + + + + + + | Performing | Address | City/State/Zipcode | Phone Number | | Organization | | | | + + + + + | [facility] | [address] | [place], [place] | | | [facility] | | [address] | | + + + + + IRON AND TIBC (07/09/2018 4:20 PM) + +--------+ + + | Component | Value | Ref Range | Performed At | + +--------+ + + | IRON | 49 | 30 - 160 ug/dL | [facility] | | | | | SERVICES, CORE | + +--------+ + + | IRON BIND CAP | 413 | 240 - 450 ug/dL | [facility] | | | | | SERVICES, CORE | + +--------+ + + | % SATURATION | 12 (L) | 20 - 50 % | [facility] | | TRANSFERRIN, | | | SERVICES, CORE | + +--------+ + + + + | Specimen | + + | Blood - Blood | + + + + + + + | Performing | Address | City/State/Zipcode | Phone Number | | Organization | | | | + + + + + | [facility] | [address] | [place] [address] | | | SERVICES, CORE | [address] | | | + + + + + HOMOCYSTEINE TOTAL, PLASMA (07/09/2018 4:20 PM) + + + + + | Component | Value | Ref Range | Performed At | + + + + + | HOMOCYSTEINE,PLASMA, | 16.5 (H) | 3.5 - 10.4 umol/L | [facility] | | TOTAL | | | SERVICES, | | | | | SPECIAL IMM + | | | | | COAG | + + + + + + + | Specimen | + + | Blood - Blood | + + + + + + + | Performing | Address | City/State/Zipcode | Phone Number | | Organization | | | | + + + + + | [facility] | [address] | [place] [address] | | | SERVICES, SPECIAL | [address] | | | | IMM + COAG | | | | + + + + + FERRITIN (07/09/2018 4:20 PM) + + + + + | Component | Value | Ref Range | Performed At | + + + + + | FERRITIN | 53Comment: Male and | 50 - 200 ng/mL | [facility] | | | Female >18 years: | | SERVICES, CORE | | | <20 | | | | | ng/mL: | | | | | Consistant with iron | | | | | deficiency 21-50 | | | | | ng/mL: Possible | | | | | iron deficiency | | | | | 51-99 ng/mL: | | | | | Iron deficiency unlikely | | | | | unless inflammation | | | | | present | | | | | or | | | | | patien | | | | | t >65 years of age | | | | | 100-200 ng/mL: | | | | | Normal, not consistent | | | | | with iron | | | | | deficiency >200 | | | | | ng/mL: If | | | | | transferrin saturation | | | | | >45%, consider | | | | | hemochromatosis | | | + + + + + + + | Specimen | + + | Blood - Blood | + + + + + + + | Performing | Address | City/State/Zipcode | Phone Number | | Organization | | | | + + + + + | [facility] | [address] | [place] [address] | | | SERVICES, CORE | [address] | | | + + + + + COMPLETE METABOLIC SET (NA,K,CL,CO2,BUN,CREAT,GLUC,CA,AST,ALT,BILI TOTAL,ALK PHOS,ALB,PROT TOTAL) (07/09/2018 4:20 PM) + +---------+ + + | Component | Value | Ref Range | Performed At | + +---------+ + + | GLUCOSE, PLASMA | 121 (H) | 70 - 99 mg/dL | [facility] | | (LAB) | | | SERVICES, CORE | + +---------+ + + | BUN, PLASMA (LAB) | 12 | 6 - 20 mg/dL | [facility] | | | | | SERVICES, CORE | + +---------+ + + | CREATININE PLASMA | 0.64 | 0.60 - 1.10 mg/dL | [facility] | | (LAB) | | | SERVICES, CORE | + +---------+ + + | EGFR - | >60 | >60 mL/min | [facility] | | SUDANESE | | | SERVICES, CORE | + +---------+ + + | EGFR NON | >60 | >60 mL/min | [facility] | | -SUDANESE | | | SERVICES, CORE | + +---------+ + + | SODIUM, PLASMA (LAB) | 138 | 136 - 145 mmol/L | [facility] | | | | | SERVICES, CORE | + +---------+ + + | POTASSIUM, PLASMA | 3.9 | 3.4 - 5.0 mmol/L | [facility] | | (LAB) | | | SERVICES, CORE | + +---------+ + + | CHLORIDE, PLASMA | 102 | 97 - 108 mmol/L | [facility] | | (LAB) | | | [place], [facility] [place] | + +---------+ + + | TOTAL CO2, PLASMA | 27 | 21 - 32 mmol/L | [facility] | | (LAB) | | | [facility] [place] | + +---------+ + + | CALCIUM, PLASMA | 9.6 | 8.6 - 10.2 mg/dL | [facility] | | (LAB) | | | [facility] [place] | + +---------+ + + | CALCIUM(ALB | 9.9 | 8.6 - 10.2 mg/dL | [facility] | | CORRECTED) | | | [facility] [place] | + +---------+ + + | BILIRUBIN TOTAL | 0.4 | 0.3 - 1.2 mg/dL | [facility] | | | | | SERVICES, CORE | + +---------+ + + | TOTAL PROTEIN, | 7.7 | 6.4 - 8.2 g/dL | [facility] | | PLASMA (LAB) | | | SERVICES, CORE | + +---------+ + + | ALBUMIN, PLASMA | 3.6 | 3.5 - 4.7 g/dL | [facility] | | (LAB) | | | SERVICES, CORE | + +---------+ + + | ALK PHOS | 110 (H) | 42 - 98 U/L | [facility] | | | | | SERVICES, CORE | + +---------+ + + | AST(SGOT) | 14 | <=41 U/L | [facility] | | | | | SERVICES, CORE | + +---------+ + + | ALT (SGPT) | 20 | <=60 U/L | [facility] | | | | | SERVICES, CORE | + +---------+ + + | ANION GAP | 9 | 4 - 11 mmol/L | [facility] | | | | | SERVICES, CORE | + +---------+ + + | ANION GAP(ALB | 10 | 4 - 11 mmol/L | [facility] | | CORRECTED) | | | SERVICES, CORE | + +---------+ + + | POTASSIUM CMNT | No Hemo | | [facility] | | | | | SERVICES, CORE | + +---------+ + + | BILI T CMNT | No Hemo | | [facility] | | | | | SERVICES, CORE | + +---------+ + + | AST CMNT | No Hemo | | [facility] | | | | | SERVICES, CORE | + +---------+ + + + + | Specimen | + + | Blood - Blood | + + + + + | Narrative | Performed At | + + + | GFR is estimated using the MDRD equation recommended by the | [facility] | | National Kidney Disease Education Program. Estimated GFR | LABORATORY | | Interpretive Information: <60 mL/min/1.73 sq | SERVICES, CORE | | m Chronic Kidney Disease <15 mL/min/1.73 | | | sq m Kidney Failure Estimated GFR greater | | | than 60 mL/min/1.73 sq m is of limited clinical value. The MDRD | | | equation is not valid in the following situations: - Patients under | | | 18 years of age - Severe malnutrition or obesity - Vegetarian diet | | | - Rapidly changing kidney function - Amputees, paraplegics, or other | | | muscle-wasting diseses | | + + + + + + + + | Performing | Address | City/State/Zipcode | Phone Number | | Organization | | | | + + + + + | [facility] | [address] | [place] [address] | | | SERVICES, CORE | [address] | | | + + + + + in this encounter Visit Diagnoses + + | Diagnosis | + + | Impaired intestinal absorption | + + | Unspecified intestinal malabsorption | + + | H/O bariatric surgery | + + | Bariatric surgery status | + + | Diabetes mellitus type 2, diet-controlled (HCC) | + + | Type II or unspecified type diabetes mellitus without mention of complication, not | | stated as uncontrolled | + +"
--- OUTSIDE RECORDS SUMMARY | ~2018-08-12 | XMS | Encounter Summary ---
Demographics + + + | Address | [address] | | | [place] [address] | + + + | Home Phone | | + + + | Preferred Language | Unknown | + + + | Marital Status | Single | + + + | Episcopalian Affiliation | NON | + + + | Race | White | + + + | Ethnic Group | Not or | + + + Author + + + | Author | [facility] | + + + | Organization | [facility] | + + + | Address | Unknown | + + + | Phone | Unavailable | + + + Support + + +---------+ + | Name | Relationship | Address | Phone | + + +---------+ + | Jordan Aguirre | ECON | Unknown | Unavailable | + + +---------+ + Care Team Providers + +------+ + | Care Oracle Developer Name | Role | Phone | + +------+ + | Iqra Peralta MD | PCP | | + +------+ + Encounter Details +--------+ + + + + | Date | Type | Department | Care Team | Description | +--------+ + + + + | 07/22/ | Abstract | Cardiology | Juan Antonio Mclaughlin, | | | 2019 | | Preventive at [facility] | [address] | | | | | [address] | [place] [facility] [place] | | | | | Mailcode: [id number] | [id number] | | | | | [facility] | [phone] | | | | | and Healing | | | | | | [place], [place] | | | | | | [address] | | | | | | [phone] | | | +--------+ + + + [...] Description | +--------+---------+ + + + | 04/08/ | Office | Pain Management | Ramona Sunshine | | | 2019 | Visit | | Ross, PhD [address] | | | | | | [place] | | | | | | [address] | | | | | | [phone] | | | | | | | | +--------+---------+ + + + as of this encounter Visit Diagnoses Not on filein this encounter"
--- OUTSIDE RECORDS SUMMARY | ~2018-08-12 | XMS | Encounter Summary ---
Demographics + + + | Address | [address] | | | [place] [address] | + + + | Home Phone | | + + + | Preferred Language | Unknown | + + + | Marital Status | Single | + + + | Orthodox Affiliation | Unknown | + + + | Race | Unknown | + + + | Ethnic Group | Unknown | + + + Author + + + | Author | [facility] | + + + | Organization | [facility] | + + + | Address | Unknown | + + + | Phone | Unavailable | + + + Support + + +---------+ + | Name | Relationship | Address | Phone | + + +---------+ + | An Carlin | ECON | , [place] | | + + +---------+ + Care Team Providers + +------+ + | Care Circle Edger Name | Role | Phone | + +------+ + | Iqra Peralta MD | PCP | | + +------+ + Encounter Details +--------+ + + + + | Date | Type | Department | Care Team | Description | +--------+ + + + + | 07/23/ | Orders Only | [facility] | Héctor | Phuc | | 2019 | | [address] | proteinuria; | | | | [address] | | Essential (primary) | | | | [place] [address] | | hypertension; | | | | [phone] | | Urinary incontinence | | | | | | with continuous | | | | | | leakage | +--------+ + + + + Social History + +-------+ +--------+------+ | Tobacco Use | Types | Packs/Day | Years | Date | | | | | Used | | + +-------+ +--------+------+ | Former Smoker | | 0.5 | 25 | | + +-------+ +--------+------+ + +---+---+---+ | Smokeless Tobacco: | | | | | Never Used | | | | + +---+---+---+ + + | Comments: 2016 | + + + + +---------+ + [...] Description | +--------+---------+ + + + | 11/08/ | Office | Nephrology | Ricardo Mijares MD | | | 2019 | Visit | | [address] | | | | | | [address] [place] | | | | | | [address] | | | | | | | | +--------+---------+ + + + as of this encounter Visit Diagnoses + + | Diagnosis | + + | Persistent proteinuria | + + | Proteinuria | + + | Essential (primary) hypertension | + + | Unspecified essential hypertension | + + | Urinary incontinence with continuous leakage | + + | Continuous leakage | + +"
--- OUTSIDE RECORDS SUMMARY | ~2018-08-12 | XMS | Encounter Summary ---
Demographics + + + | Address | [address] | | | [place] [address] | + + + | Home Phone | | + + + | Preferred Language | Unknown | + + + | Marital Status | Single | + + + | Moravian Affiliation | NON | + + + | Race | White | + + + | Ethnic Group | Not or | + + + Author + + + | Author | [facility] | + + + | Organization | [facility] | + + + | Address | Unknown | + + + | Phone | Unavailable | + + + Support + + +---------+ + | Name | Relationship | Address | Phone | + + +---------+ + | Jordan Aguirre | ECON | Unknown | Unavailable | + + +---------+ + Care Team Providers + +------+ + | Care Dovetail Machine Operator Name | Role | Phone | + +------+ + | Iqra Peralta MD | PCP | | + +------+ + Encounter Details +--------+ + + + + | Date | Type | Department | Care Team | Description | +--------+ + + + + | 07/09/ | Telephone | Digestive Health | Yaritza Venegas, | | | 2019 | | Center at [facility] 6th | MD Yvon Bacon | | | | | Floor [address] | [place], [place] | | | | | Arleen Mailcode: CH4 | [address] | | | | | [facility] | [phone] | | | | | and Leandro, 6th | | | | | | floor [place], [place] | | | | | | [address] | | | | | | | [...] Management | Ramona Sunshine | | | 2018 | Visit | | Ross, PhD [address] | | | | | | [place], [place] | | | | | | [address] | | | | | | [phone] | | | | | | | | +--------+---------+ + + + as of this encounter Results VITAMIN D, 25-HYDROXY, SERUM (07/09/2018 4:20 PM) + +-------+ + + | Component | Value | Ref Range | Performed At | + +-------+ + + | VITAMIN D 25 HYDROXY | 71.4 | 30 - 80 ng/mL | [facility] | | | | | SERVICES, [...] LABORATORY | [address] | [place] [address] | | | SERVICES, CORE | [address] | | | + + + + + VITAMIN B-12 (07/09/2018 4:20 PM) + +-------+ + + | Component | Value | Ref Range | Performed At | + +-------+ + + | VITAMIN B12 | 583 | 193 - 986 pg/mL | [facility] | | | | | TAVARES, CORE | + +-------+ + + + + | Specimen | + + | Blood - Blood | + + + + + + + | Performing | Address | City/State/Zipcode | Phone Number | | Organization | | | | + + + + + | [facility] | [address] | [place] [address] | | | SERVICES, MIR | [address] | | | + + + + + VITAMIN B1, WHOLE BLOOD (07/09/2018 4:20 PM) + + + + + | Component | Value | Ref Range | Performed At | + + + + + | VITAMIN B1, WHOLE | 142Comment: INTERPRETIVE | 70 - 180 nmol/L | [facility] | | BLOOD | INFORMATION: Vitamin [...] | | | | | determined by [employer] | | | | | CHARMS PPEC. See | | | | | Compliance Statement B: | | | | | Isis [employer]mer/CSPerformed | | | | | by Pllop.it,500 | | | | | [facility] | | | | | [address] | | | | | [phone]. | | | | | com, Iker Angelo MD, | | | | | Lab. [...] [facility] | [address] | [place], [place] | | | UNIV PTH - INTFC | | [address] | | + + + + + PTH, SERUM (07/09/2018 4:20 PM) + +-------+ + + | Component | Value | Ref Range | Performed At | + +-------+ + + | PTH, SERUM | 74 | 18 - 88 pg/mL | [facility] | | | | | SERVICES, CORE | + +-------+ + + + + | Specimen | + + | Blood - Blood | + + + + + + + | Performing | Address | City/State/Zipcode | Phone Number | | Organization | | | | + + + + + | [facility] | [address] | [place] [address] | | | SERVICES, CORE | [address] | | | + + + + + METHYLMALONIC ACID, SERUM (07/09/2018 4:20 PM) + + + + + | Component | Value | Ref Range | Performed At | + + + + + | METHYLMALONIC ACID | 0.18Comment: | 0.00 - 0.40 umol/L | [facility] | | | INTERPRETIVE | | UNIV PTH - | | | INFORMATION: MMA | | INTFC | | | Serum/Plasma, | | | | | | | | | | | | | | | Vitamin B12 Status | | | | | Test developed and | | | | | characteristics | | | | | determined by [facility] | | | | | Laboratories. See | | | | | Compliance Statement B: | | | | | [email or web address].com/CSPerformed | | | | | by [employer] CHARMS PPEC,500 | | | | | Trey Vallecillo [facility] [place] | | | | | [address] | | | | | [phone]. | | | | | com, Iker Angelo MD, | | | | | Lab. [...] [facility] | [address] | [place], [place] | | | UNIV PTH - INTFC | | [address] | | + + + + + [...] | + + + + + | [facility] | [address] | [place] [address] | | | SERVICES, CORE | [address] | | | + + + + + HOMOCYSTEINE TOTAL, PLASMA (07/09/2018 4:20 PM) + + + + + | Component | Value | Ref Range | Performed At | + + + + + | HOMOCYSTEINE,PLASMA, | 16.5 (H) | 3.5 - 10.4 umol/L | [facility] | | TOTAL | | | [...] LABORATORY | [address] | [place] [address] | | | SERVICES, SPECIAL | [address] | | | | IMM + COAG | | | | + + + + + FERRITIN (07/09/2018 4:20 PM) + + + + + | Component | Value | Ref Range | Performed At | + + + + + | FERRITIN | 53Comment: Male and | 50 - 200 ng/mL | [facility] | | | Female >18 years: [...] | + + + + + | [facility] | [address] | [place] [address] | | | SERVICES, CORE | [address] [...] >60 mL/min | [facility] | | FIJIAN | | | SERVICES, CORE | + +---------+ + + | EGFR NON | >60 | >60 mL/min | [facility] | | -FIJIAN | | | SERVICES, CORE | + [...] 27 | 21 - 32 mmol/L | [facility] | | (LAB) | | | SERVICES, CORE | + +---------+ + + | CALCIUM, PLASMA | 9.6 | 8.6 - 10.2 mg/dL | [facility] | | (LAB) | | | SERVICES, CORE | + +---------+ + + | CALCIUM(ALB | 9.9 | 8.6 - 10.2 mg/dL | [facility] | | CORRECTED) | | | SERVICES, CORE | + +---------+ + + | BILIRUBIN TOTAL | 0.4 | 0.3 - 1.2 mg/dL | [facility] | | | | | SERVICES, CORE | + +---------+ + + | TOTAL PROTEIN, | 7.7 | 6.4 - 8.2 g/dL | [facility] | | PLASMA (LAB) | | | [facility], CORE | + +---------+ + + | [...] the MDRD equation recommended by the | [facility] | | National Kidney Disease Education Program. [...] | + + + + + | [facility] | [address] | [place] [address] | | | SERVICES, CORE | [address] | | | + + + + + in this encounter Visit Diagnoses + + | Diagnosis | + + | Impaired intestinal absorption - Primary | + + | Unspecified intestinal malabsorption | + + | H/O bariatric surgery | + + | Bariatric surgery status | + +"
--- OUTSIDE RECORDS SUMMARY | ~2018-08-12 | XMS | Encounter Summary ---
Demographics + + + | Address | [address] | | | [place] [address] | + + + | Home Phone | | + + + | Preferred Language | Unknown | + + + | Marital Status | Single | + + + | Islam Affiliation | NON | + + + | Race | White | + + + | Ethnic Group | Not or | + + + Author + + + | Author | [facility] | + + + | Organization | [facility] | + + + | Address | Unknown | + + + | Phone | Unavailable | + + + Support + + +---------+ + | Name | Relationship | Address | Phone | + + +---------+ + | Jordan Aguirre | ECON | Unknown | Unavailable | + + +---------+ + Care Team Providers + +------+ + | Care Armor Reconnaissance Specialist Name | Role | Phone | + +------+ + | Iqra Peralta MD | PCP | | + +------+ + Encounter Details +--------+------+ + + + | Date | Type | Department | Care Team | Description | +--------+------+ + + + | 07/09/ | Lab | Laboratory at [facility] | | Impaired intestinal | | 2019 | | 3rd Floor [address] | | absorption; H/O | | | | [address] [place], | | bariatric surgery; | | | | [place] [address] | | Diabetes mellitus | | | | [phone] | | type 2, | | | [...] 2019 | Visit | | Ross PhD [address] | | | | | | [place], [place] | | | | | | [address] | | | | | | [phone] | | | | | | | [...] | 3.50 - 10.80 K/cu mm | [facility] | | | | | SERVICES, CORE | + + + + + | RED CELL COUNT | 4.85 | 4.00 - 5.20 M/cu mm | [facility] | | | | | SERVICES, CORE | + + + + + | HEMOGLOBIN | 15.1 | 12.0 - 16.0 g/dL | [facility] | | | | | SERVICES, CORE | + + + + + | HEMATOCRIT | 47.8 (H) | 36.0 - 46.0 % | [facility] | | | | | SERVICES, CORE | + + + + + | MCV | 98.6 | 80.0 - 100.0 fL | [facility] | | | | | [...] + | [facility] | [address] | [place] [address] | | | SERVICES, CORE | [address] [...] | [facility] | | considered for monitoring terminal operations supervisor glycemic control in patients with: | LABORATORY [...] HOSPITAL | [address] | [place] [address] | | | SERVICES, SPECIAL | [address] [...] | + + + + + | [facility] | [address] | [place] [address] | | | SERVICES, CORE | [address] | | | + + + + + VITAMIN B-12 (07/09/2018 4:20 PM) + +-------+ + + | Component | Value | Ref Range | Performed At | + +-------+ + + | VITAMIN B12 | 583 | 193 - 986 pg/mL | [facility] | | | | | SERVICES, CORE | + +-------+ + + + + | Specimen | + + | Blood - Blood | + + + + + + + | Performing | Address | City/State/Zipcode | Phone Number | | Organization | | | | + + + + + | [facility] | [address] | [place] [address] | | | SERVICES, CORE | [address] | | | + + + + + VITAMIN B1, WHOLE BLOOD (07/09/2018 4:20 PM) + + + + + | Component | Value | Ref Range | Performed At | + + + + + | VITAMIN B1, WHOLE | 142Comment: INTERPRETIVE | 70 - 180 nmol/L | [facility] | | BLOOD | INFORMATION: Vitamin [...] | | | | determined by [facility] | | | | | Laboratories. See | | | | | Compliance Statement B: | | | | | Head Held High/CSPerformed | | | | | by [employer],500 | | | | | Trey Vallecillo [facility] [place] | | | | | [address] | | | | | [phone].[employer]. | | | | | Iker mcclain [...] [facility] | [address] | [place], [place] | | | UNIV PTH - INTFC | | [address] | | + + + + + [...] LABORATORY | [address] | [place] [address] | | | SERVICES, CORE | [address] | | | + + + + + METHYLMALONIC ACID, SERUM (07/09/2018 4:20 PM) + + + + + | Component | Value | Ref Range | Performed At | + + + + + | METHYLMALONIC ACID | 0.18Comment: | 0.00 - 0.40 umol/L | [facility] | | | INTERPRETIVE | | UNIV PTH - | | | INFORMATION: MMA | | INTFC | | | Serum/Plasma, | | | | | | | | | | | | | | | Vitamin B12 Status | | | | | Test developed and | | | | | characteristics | | | | | determined by [facility] | | | | | Laboratories. See | | | | | Compliance Statement B: | | | | | [employer] Software.FusionStorm/CSPerformed | | | | | by [employer],500 | | | | | Trey Vallecillo [facility] [place] | | | | | [address] | | | | | [phone].[employer]. | | | | | comIker MD, [...] [facility] | [address] | [place], [place] | | | UNIV PTH - INTFC | | [address] | | + + + + + [...] | + + + + + | [facility] | [address] | [place] [address] | | | SERVICES, CORE | [address] | | | + + + + + HOMOCYSTEINE TOTAL, PLASMA (07/09/2018 4:20 PM) + + + + + | Component | Value | Ref Range | Performed At | + + + + + | HOMOCYSTEINE,PLASMA, | 16.5 (H) | 3.5 - 10.4 umol/L | [facility] | | TOTAL | | | [...] + | [facility] | [address] | [place] [address] | | | SERVICES, SPECIAL | [address] | | | | IMM + COAG | | | | + + + + + FERRITIN (07/09/2018 4:20 PM) + + + + + | Component | Value | Ref Range | Performed At | + + + + + | FERRITIN | 53Comment: Male and | 50 - 200 ng/mL | [facility] | | | Female >18 years: [...] LABORATORY | [address] | [place] [address] | | | SERVICES, CORE | [address] [...] >60 mL/min | [facility] | | [place]ICAN | | | SERVICES, CORE | + +---------+ + + | EGFR NON | >60 | >60 mL/min | [facility] | | -[place]ICAN | | | SERVICES, CORE | + [...] | | (LAB) | | | SERVICES, [facility] | + +---------+ + + | TOTAL CO2, PLASMA | 27 | 21 - 32 mmol/L | [facility] | | (LAB) | | | [facility] | + +---------+ + + | CALCIUM, PLASMA | 9.6 | 8.6 - 10.2 mg/dL | [facility] | | (LAB) | | | [facility] | + +---------+ + + | CALCIUM(ALB | 9.9 | 8.6 - 10.2 mg/dL | [facility] | | CORRECTED) | | | [facility] | + +---------+ + + | BILIRUBIN [...] AST CMNT | No Hemo | | [facility] | | | | | SERVICES, CORE | + +---------+ + + + + | Specimen | + + | Blood - Blood | + + + + + | Narrative | Performed At | + + + | GFR is estimated using the MDRD equation recommended by the | [facility] | | National Kidney Disease Education Program. [...] LAWS | [address] | [place] [address] | | | SERVICES, CORE | [address] [...]
--- OUTSIDE RECORDS SUMMARY | ~2018-08-12 | XMS | Encounter Summary ---
Demographics + + + | Address | [address] | | | [place] [address] | + + + | Home Phone | | + + + | Preferred Language | Unknown | + + + | Marital Status | Single | + + + | Adventist Affiliation | NON | + + + | Race | White | + + + | Ethnic Group | Not or | + + + Author + + + | Author | [facility] | + + + | Organization | [facility] | + + + | Address | Unknown | + + + | Phone | Unavailable | + + + Support + + +---------+ + | Name | Relationship | Address | Phone | + + +---------+ + | Jordan Aguirre | ECON | Unknown | Unavailable | + + +---------+ + Care Team Providers + +------+ + | Care C Iron Worker Name | Role | Phone | + +------+ + | Iqra Peralta MD | PCP | | + +------+ + Encounter Details +--------+ + + + + | Date | Type | Department | Care Team | Description | +--------+ + + + + | 07/09/ | Pharmacy | Outpatient Retail | | | | 2019 | Visit | [facility] | | | | | | [address] | | | | | | [facility] | | | | | | [place], [place] | | | | | | [address] | | | +--------+ + + + [...] | | | | | | [place], [place] | | | | | | [address] | | | | | | [phone] | | | | | | | | +--------+---------+ + + + as of this encounter Visit Diagnoses Not on filein this encounter"
--- OUTSIDE RECORDS SUMMARY | ~2018-08-12 | XMS | Encounter Summary ---
Demographics + + + | Address | [address] | | | [place] [address] | + + + | Home Phone | | + + + | Preferred Language | Unknown | + + + | Marital Status | Single | + + + | Zoroastrian Affiliation | Unknown | + + + | Race | Unknown | + + + | Ethnic Group | Unknown | + + + Author + + + | Author | [facility] | | | and [place] | + + + | Organization | [facility] | | | and [...] Team Providers + +------+ + | Care Gang Ripsaw Operator Name | Role | Phone | [...] | | asthma, | [address] | [place], Level | | | | | uncomplicate | [place], | [place] | | | | | d | [place] [address] | [place] | | | | | Congenital | Phone: | [phone] Phone: | | | | | central | [phone] | [phone] | | | | | alveolar | Fax: | Fax: | | | | | hypoventilat | [phone] | [phone] | | | | | ion syndrome | | | | | | | Procedures | | | | | | | F/U | | | +--------+--------+ + + + + Encounter Details +--------+---------+ + + + | Date | Type | Department | Care Team | Description | +--------+---------+ + + + | 05/31/ | Office | [facility] | Adolfo Zazueta, | Restrictive lung | | 2018 | Visit | PULMONARY [address] | disease secondary to | | | | [place], | [place], Level II | obesity ([place] | | | | [place] [address] | [place], [place] | Dx); Mild persistent | | | | [phone] | [address] | asthma without | | | | [...] in this encounter Instructions Patient Instructions - Adolof Zazueta MD - 05/31/2018 1330 PST Asthma [...] more than every 4 hours, contact your [facility] provider or seek immediate medical attention. If [...] turning arizmendi or blue Date Last Reviewed: 09/29/201619991417-9428 [employer]. [address] [place] [address], [place] [address]. All righ ts reserved. This information is not intended as a substitute for professional medical care. Always follow your healthcare professional's instructions. in this encounter Progress Notes Adolfo Zazueta MD - 05/31/2018 4543 PSTFormatting of this note may be different [...] hypoventilation syndrome COPD (chronic obstructive pulmonary disease) ([facility]) patent denies Cyst of ovary Depression with anxiety Diabetes mellitus type 2, diet-controlled ([facility]) 02/15/2015 GROSSMAN (dyspnea on exertion) Endometriosis s/p GLENN BSO Fracture, humeral 2012 Hypertensive disorder Hypothyroidism Insomnia Lymphedema MRSA (methicillin resistant Staphylococcus aureus) septicemia ([facility]) left foot source Nephrotic syndrome [...] She continues to wear supplemental oxygen at [facility] through CPAP. No daytime hypoxemia. [...] 2018 | Visit | | MD Lars [address] [place] [address] | | | | | | Dagoberto [facility] | | | | | | [place] [address] | | | | | | [phone] | | | | | | | [...]
--- OUTSIDE RECORDS SUMMARY | ~2018-08-12 | XMS | Encounter Summary ---
Demographics + + + | Address | [address] | | | [place] [address] | + + + | Home Phone | | + + + | Preferred Language | Unknown | + + + | Marital Status | Single | + + + | Mormonism Affiliation | Unknown | + + + | Race | Unknown | + + + | Ethnic Group | Unknown | + + + Author + + + | Author | [facility] | + + + | Organization | [facility] | + + + | Address | Unknown | + + + | Phone | Unavailable | + + + Support + + +---------+ + | Name | Relationship | Address | Phone | + + +---------+ + | An Carlin | ECON | , [place] | | + + +---------+ + Care Team Providers + +------+ + | Care Mail Processing Clerk Name | Role | Phone | [...] (primary) | | | | [place] [address] | | hypertension; | | | | [phone] | | Urinary incontinence | | | [...] | | | | | | [address] | | | | | | [address] | | | | | | | [...]
--- OUTSIDE RECORDS SUMMARY | ~2018-08-12 | XMS | Encounter Summary ---
Demographics + + + | Address | [address] | | | [place] [address] | + + + | Home Phone | | + + + | Preferred Language | Unknown | + + + | Marital Status | Single | + + + | Zoroastrianism Affiliation | NON | + + + [...] Team Providers + +------+ + | Care Tray Packer Name | Role | Phone | + +------+ + | Iqra Peralta MD | PCP | | + +------+ + Encounter Details +--------+ + + + + | Date | Type | Department | Care Team | Description | +--------+ + + + + | 08/05/ | MyChart | [facility] at [facility] | Mily Love, | RE: Appt aproval | | 2019 | Encounter | 15th Floor [address] | Kofi Moya, PhD [address] | | | | | Aryan [address] Mail | [address] | | | | | Code: [facility] | [place], [place] | | | | | for Health and | [address] | | | | | Healing, 15th Floor | [phone] | | | | | [place], [place] | | | | | | [address] | | | | | | [phone] | | | +--------+ + + + [...] | | | | | | [place] | | | | | | [address] | | | | | | [phone] | | | | | | | | +--------+---------+ + + + as of this encounter Visit Diagnoses Not on filein this encounter"
--- OUTSIDE RECORDS SUMMARY | ~2018-08-12 | XMS | Encounter Summary ---
Demographics + + + | Address | [address] | | | [place] [address] | + + + | Home Phone [...] Author + + + | Author | [facility] | + + + | Organization | [facility] | + + + | Address | Unknown | + + + | Phone | Unavailable | + + + Support + + +---------+ + | Name | Relationship | Address | Phone | + + +---------+ + | Jordan Aguirre | ECON | Unknown | Unavailable | + + +---------+ + Care Team Providers + +------+ + | Care Dispatcher Chief Coal Slurry Name | Role | Phone | + +------+ + | Iqra Peralta MD | PCP | | + +------+ + Encounter Details +--------+ + + + + | Date | Type | Department | Care Team | Description | +--------+ + + + + | 07/09/ | Telephone | Digestive Health | Yaritza Venegas, | | | 2019 | | Center at [facility] 6th | MD Yvon Bacon | | | | | Floor [address] | [place], [place] | | | | | Arleen Mailcode: CH4 | [address] | | | | | [facility] | [phone] | | | | | and Leandro, 6th | | | | | | floor [place], [place] | | | | | | [address] | | | | | | | [...] | | | | | | [place], [place] | | | | | | [address] | | | | | | [phone] | | | | | | | | +--------+---------+ + + + as of this encounter Results VITAMIN D, 25-HYDROXY, SERUM (07/09/2018 4:20 PM) + +-------+ + + | Component | Value | Ref Range | Performed At | + +-------+ + + | VITAMIN D 25 HYDROXY | 71.4 | 30 - 80 ng/mL | [facility] | | | [...] LABORATORY | [address] | [place] [address] | | | SERVICES, CORE | [address]ARK [...] | + + + + + | [facility] | [address] | [place] [address] | | | SERVICES, MIR | [address]ANCY [...] | | | | | determined by [employer] | | | | | [facility]. See | | | | | Compliance Statement B: | | | | | [employer]/CSPerformed | | | | | by [employer],500 | | | | | [facility] | | | | | [address] | | | | | [phone].Cam[employer]. | | | | | com, Iker [...] [facility] | [address] | [place], [place] | | | UNIV PTH - INTFC | | [address] | | + + + + + PTH, SERUM (07/09/2018 4:20 PM) + +-------+ + + | Component | Value | Ref Range | Performed At | + +-------+ + + | PTH, SERUM | 74 | 18 - 88 pg/mL | [facility] | | | | | SERVICES, CORE | + +-------+ + + + + | Specimen | + + | Blood - Blood | + + + + + + + | Performing | Address | City/State/Zipcode | Phone Number | | Organization | | | | + + + + + | [facility] | [address] | [place] [address] | | | SERVICES, CORE | NANCY [...] | | | | | determined by [facility] | | | | | Laboratories. See | | | | | Compliance Statement B: | | | | | SolarEdgelab.com/CSPerformed | | | | | by [employer] [facility],500 | | | | | Trey Vallecillo [facility] [place] [facility] [place] | | | | | [address] | | | | | [phone].[email or web address]. | | | | | com, Iker [...] [facility] | [address] | [place], [place] | | | UNIV PTH - INTFC | | [address] | | + + + + + [...] | + + + + + | [facility] | [address] | [place] [address] | | | SERVICES, CORE | NANCY [...] LABORATORY | [address] | [place] [address] | | | SERVICES, SPECIAL | [address] | | | | IMM + COAG | | | | + + + + + FERRITIN (07/09/2018 4:20 PM) + + + + + | Component | Value | Ref Range | Performed At | + + + + + | FERRITIN | 53Comment: Male and | 50 - 200 ng/mL | [facility] | | | [...] | + + + + + | [facility] | [address] | [place] [address] | | | SERVICES, CORE | NANCY [...] >60 mL/min | [facility] | | [place]ESE | | | SERVICES, CORE | + +---------+ + + | EGFR NON | >60 | >60 mL/min | [facility] | | -[place]ESE | | | SERVICES, CORE | + [...] | | PLASMA (LAB) | | | [facility], CORE | + +---------+ + + [...] the MDRD equation recommended by the | DESU | | National Kidney Disease Education Program. [...] | + + + + + | [facility] | [address] | [place] [address] | | | SERVICES, CORE | [address] [...]
--- OUTSIDE RECORDS SUMMARY | ~2018-08-12 | XMS | Encounter Summary ---
Demographics + + + | Address | [address] | | | [place] [address] | + + + | Home Phone | | + + + | Preferred Language | Unknown | + + + | Marital Status | Single | + + + | Taoism Affiliation | Unknown | + + + | Race | Unknown | + + + | Ethnic Group | Unknown | + + + Author + + + | Author | [facility] | + + + | Organization | [facility] | + + + | Address | Unknown | + + + | Phone | Unavailable | + + + Support + + +---------+ + | Name | Relationship | Address | Phone | + + +---------+ + | An Carlin | ECON | , [place] | | + + +---------+ + Care Team Providers + +------+ + | Care Resident Care Associate Name | Role | Phone | + +------+ + | Iqra Peralta MD | PCP | | + +------+ + Encounter Details +--------+ + + + + | Date | Type | Department | Care Team | Description | +--------+ + + + + | 07/20/ | Telephone | [facility] | [place], | | | 2018 | | [place] [address] | [address] | | | | | [address] | | | | | | [place] [address] | | | | | | [phone] | | | +--------+ + + + [...] | | | | | | [address] | | | | | | [id number] | | | | | | | | +--------+---------+ + + + as of this encounter Visit Diagnoses Not on filein this encounter"
--- OUTSIDE RECORDS SUMMARY | ~2018-08-12 | XMS | Encounter Summary ---
Demographics + + + | Address | [address] | | | [place] [address] | + + + | Home Phone | | + + + | Preferred Language | Unknown | + + + | Marital Status | Single | + + + | Anabaptism Affiliation | NON | + + + | Race | White | + + + | Ethnic Group | Not or | + + + Author + + + | Author | [facility] | + + + | Organization | [facility] | + + + | Address | Unknown | + + + | Phone | Unavailable | + + + Support + + +---------+ + | Name | Relationship | Address | Phone | + + +---------+ + | Jordan Aguirre | ECON | Unknown | Unavailable | + + +---------+ + Care Team Providers + +------+ + | Care Retail Office Associate Name | Role | Phone | + +------+ + | Iqra Peralta MD | PCP | | + +------+ + Reason for Visit + + + | Reason | Comments | + + + | Follow-up encounter | | + + + Encounter Details +--------+ + + + + | Date | Type | Department | Care Team | Description | +--------+ + + + + | 07/20/ | Telephone | Cardiology in | Kath Boyle | Follow-up encounter | | 2019 | | [facility] | [facility] [address] | | | | | [place] at | [address] [place], | | | | | [place] [address] | [place] [address] | | | | | [address] | [phone] | | | | | [place], [place] | | | | | | [address] | | | | | | [phone] | | | +--------+ + + + [...] | | | | | | [place], [place] | | | | | | [address] | | | | | | [phone] | | | | | | | | +--------+---------+ + + + as of this encounter Visit Diagnoses Not on filein this encounter"
--- OUTSIDE RECORDS SUMMARY | ~2018-08-12 | XMS | Encounter Summary ---
Demographics + + + | Address | [address] | | | [place] [address] | + + + | Home Phone | | + + + | Preferred Language | Unknown | + + + | Marital Status | Single | + + + | Yazidi Affiliation | Unknown | + + + | Race | Unknown | + + + | Ethnic Group | Unknown | + + + Author + + + | Author | [facility] | + + + | Organization | [facility] | + + + | Address | Unknown | + + + | Phone | Unavailable | + + + Support + + +---------+ + | Name | Relationship | Address | Phone | + + +---------+ + | An Carlin | ECON | , [place] | | + + +---------+ + Care Team Providers + +------+ + | Care Regulatory Process Manager Name | Role | Phone | + +------+ + | Iqra Peralta MD | PCP | | + +------+ + Reason for Visit +--------+ + | Reason | Comments | +--------+ + | Other | US Retroperitoneal 04/27/2018 | +--------+ + Encounter Details +--------+ + + + + | Date | Type | Department | Care Team | Description | +--------+ + + + + | 07/20/ | Documentati | [facility] | [place] | Mallory (US | | 2019 | on Only | [place] [address] | [address] | Retroperitoneal | | | | [address] | | 04/27/2018) | | | | [place] [address] | | | | | | [phone] | | | +--------+ + + + [...] | | | | | | [address] | | | | | | [address] | | | | | | | | +--------+---------+ + + + as of this encounter Visit Diagnoses Not on filein this encounter"
--- OUTSIDE RECORDS SUMMARY | ~2018-08-12 | XMS | Encounter Summary ---
Demographics + + + | Address | [address] | | | [place] [address] | + + + | Home Phone [...] Team Providers + +------+ + | Care Maternal Child Nurse Name | Role | Phone | + +------+ + | Iqra Peralta MD | PCP | | + +------+ + Encounter Details +--------+------+ + + + | Date | Type | Department | Care Team | Description | +--------+------+ + + + | 07/09/ | Lab | Laboratory at [facility] | | Impaired intestinal | | 2019 | | 3rd Floor [address] | | absorption; H/O | | | | [address] [place], | | bariatric surgery; | | | | [place] [address] | | Diabetes mellitus | | | | [phone] | | type 2, | | | [...] 2019 | Visit | | Ross PhD [address] | | | | | | [place], [place] | | | | | | [address] | | | | | | [phone] | | | | | | | [...] | 3.50 - 10.80 K/cu mm | [facility] | | | | | SERVICES, CORE | + + + + + | RED CELL COUNT | 4.85 | 4.00 - 5.20 M/cu mm | [facility] | | | | | SERVICES, CORE | + + + + + | HEMOGLOBIN | 15.1 | 12.0 - 16.0 g/dL | [facility] | | | | | SERVICES, CORE | + + + + + | HEMATOCRIT | 47.8 (H) | 36.0 - 46.0 % | [facility] | | | | | SERVICES, CORE | + + + + + | MCV | 98.6 | 80.0 - 100.0 fL | [facility] | | | [...] | + + + + + | [facility] | [address] | [place] [address] | | | SERVICES, CORE | [address] [...] | [facility] | | considered for monitoring rodent exterminator glycemic control in patients with: | LABORATORY [...] | + + + + + | [facility] | [address] | [place] [address] | | | SERVICES, SPECIAL | [address]ANCY [...] | + + + + + | [facility] | [address] | [place] [address] | | | SERVICES, CORE | [address] | | | + + + + + VITAMIN B-12 (07/09/2018 4:20 PM) + +-------+ + + | Component | Value | Ref Range | Performed At | + +-------+ + + | VITAMIN B12 | 583 | 193 - 986 pg/mL | [facility] | | | | | SERVICES, CORE | + +-------+ + + + + | Specimen | + + | Blood - Blood | + + + + + + + | Performing | Address | City/State/Zipcode | Phone Number | | Organization | | | | + + + + + | [facility] | [address] | [place] [address] | | | SERVICES, CORE | [address] | | | + + + + + VITAMIN B1, WHOLE BLOOD (07/09/2018 4:20 PM) + + + + + | Component | Value | Ref Range | Performed At | + + + + + | VITAMIN B1, WHOLE | 142Comment: INTERPRETIVE | 70 - 180 nmol/L | [facility] | | BLOOD | INFORMATION: Vitamin [...] | | | | | determined by [facility] | | | | | Laboratories. See | | | | | Compliance Statement B: | | | | | [employer]/CSPerformed | | | | | by Next Caller,500 | | | | | Trey Vallecillo [facility],[place] | | | | | [address] | | | | | [phone].[employer]. | | | | | Iker mcclain [...] [facility] | [address] | [place], [place] | | | [facility] | | [address] | | + + + + + [...] LABORATORY | [address] | [place] [address] | | | SERVICES, CORE | [address] | | | + + + + + METHYLMALONIC ACID, SERUM (07/09/2018 4:20 PM) + + + + + | Component | Value | Ref Range | Performed At | + + + + + | METHYLMALONIC ACID | 0.18Comment: | 0.00 - 0.40 umol/L | [facility] | | | INTERPRETIVE | | UNIV PTH - | | | INFORMATION: MMA | | [facility] | | | Serum/Plasma, | | | | | | | | | | | | | | | Vitamin B12 Status | | | | | Test developed and | | | | | characteristics | | | | | determined by [facility] | | | | | Laboratories. See | | | | | Compliance Statement B: | | | | | [employer]/CSPerformed | | | | | by Next Caller,500 | | | | | Trey Vallecillo [facility],[place] | | | | | [address] | | | | | [phone].[employer]. | | | | | comIker MD, [...] [facility] | [address] | [place], [place] | | | [facility] | | [address] | | + + + + + [...] | + + + + + | [facility] | [address] | [place] [address] | | | SERVICES, CORE | [address] | | | + + + + + HOMOCYSTEINE TOTAL, PLASMA (07/09/2018 4:20 PM) + + + + + | Component | Value | Ref Range | Performed At | + + + + + | HOMOCYSTEINE,PLASMA, | 16.5 (H) | 3.5 - 10.4 umol/L | [facility] | | TOTAL | | [...] | + + + + + | [facility] | [address] | [place] [address] | | | SERVICES, SPECIAL | [address] | | | | IMM + COAG | | | | + + + + + FERRITIN (07/09/2018 4:20 PM) + + + + + | Component | Value | Ref Range | Performed At | + + + + + | FERRITIN | 53Comment: Male and | 50 - 200 ng/mL | [facility] | | | Female >18 years: [...] LABORATORY | [address] | [place] [address] | | | SERVICES, CORE | [address] [...] >60 mL/min | [facility] | | ICELANDIC | | | SERVICES, CORE | + +---------+ + + | EGFR NON | >60 | >60 mL/min | [facility] | | -ICELANDIC | | | SERVICES, CORE | + [...] | | (LAB) | | | SERVICES, [facility] | + +---------+ + + | TOTAL CO2, PLASMA | 27 | 21 - 32 mmol/L | [facility] | | (LAB) | | | [facility] | + +---------+ + + | CALCIUM, PLASMA | 9.6 | 8.6 - 10.2 mg/dL | [facility] | | (LAB) | | | [facility] | + +---------+ + + | CALCIUM(ALB | 9.9 | 8.6 - 10.2 mg/dL | [facility] | | CORRECTED) | | | [facility] | + +---------+ + + | BILIRUBIN [...] AST CMNT | No Hemo | | [facility] | | | | | SERVICES, CORE | + +---------+ + + + + | Specimen | + + | Blood - Blood | + + + + + | Narrative | Performed At | + + + | GFR is estimated using the MDRD equation recommended by the | [facility] | | National Kidney Disease Education [...] [facility] | [address] | [place] [address] | | | SERVICES, CORE | [address] [...]
--- OUTSIDE RECORDS SUMMARY | ~2018-08-12 | XMS | Encounter Summary ---
Demographics + + + | Address | [address] | | | [place] [address] | + + + | Home Phone [...] Author + + + | Author | [facility] | + + + | Organization | [facility] | + + + | Address | Unknown | + + + | Phone | Unavailable | + + + Support + + +---------+ + | Name | Relationship | Address | Phone | + + +---------+ + | Jordan Aguirre | ECON | Unknown | Unavailable | + + +---------+ + Care Team Providers + +------+ + | Care Floor Director Name | Role | Phone | + +------+ + | Iqra Peralta MD | PCP | | + +------+ + Encounter Details +--------+ + + + + | Date | Type | Department | Care Team | Description | +--------+ + + + + | 07/20/ | Shovel Log Loader Operator | Cardiology in | Kath Boyle | | | 2019 | | [facility] | [address] | | | | | [place] at | [address] [place], | | | | | [place] [address] | [place] [address] | | | | | [address] | [phone] | | | | | [place], [place] | | | | | | [address] | | | | | | [phone] | | | +--------+ + + + [...] 09/06/ | Office | Pain Management | [facility] | | | 2019 | Visit | | Ross, PhD [address] | | | | | | [place] | | | | | | [address] | | | | | | [phone] | | | | | | | | +--------+---------+ + + + as of this encounter Visit Diagnoses Not on filein this encounter"
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
--- OUTSIDE RECORDS SUMMARY | ~2018-08-12 | XMS | Encounter Summary ---
Demographics + + + | Address | [address] | | | [place] [address] | + + + | Home Phone | | + + + | Preferred Language | Unknown | + + + | Marital Status | Single | + + + | Buddhist Affiliation | NON | + + + [...] Team Providers + +------+ + | Care Tube Drawer Name | Role | Phone | + +------+ + | Iqra Peralta MD | PCP | | + +------+ + Reason for Visit + + + | Reason | Comments | + + + | Prior Authorization | Ajith | | Request | | + + + Encounter Details +--------+ + + + + | Date | Type | Department | Care Team | Description | +--------+ + + + + | 07/12/ | Telephone | Cardiology | Juan Antonio Mclaughlin, | Prior Authorization | | 2019 | | Preventive at [facility] | MD [address] | Request (Chriswendyadrián ) | | | | [address] | [place], [place] | | | | | Mailcode: [facility] | [address] | | | | | [facility] | [phone] | | | | | and Healing | | | | | | [place], [place] | | | | | | [address] | | | | | | [phone] | | | +--------+ + + + [...] 2019 | Visit | | Ross PhD [address] | | | | | | [place], [place] | | | | | | [address] | | | | | | [phone] | | | | | | | | +--------+---------+ + + + as of this encounter Visit Diagnoses Not on filein this encounter"
--- OUTSIDE RECORDS SUMMARY | ~2018-08-12 | XMS | Encounter Summary ---
Demographics + + + | Address | [address] | | | [place] [address] | + + + | Home Phone | | + + + | Preferred Language | Unknown | + + + | Marital Status | Single | + + + | Restorationism Affiliation | NON | + + + | Race | White | + + + | Ethnic Group | Not or | + + + Author + + + | Author | [facility] | + + + | Organization | [facility] | + + + | Address | Unknown | + + + | Phone | Unavailable | + + + Support + + +---------+ + | Name | Relationship | Address | Phone | + + +---------+ + | Jordan Aguirre | ECON | Unknown | Unavailable | + + +---------+ + Care Team Providers + +------+ + | Care Upstream Biomanufacturing Technician Name | Role | Phone | + +------+ + | Iqra Peralta MD | PCP | | + +------+ + Encounter Details +--------+ + + + + | Date | Type | Department | Care Team | Description | +--------+ + + + + | 07/20/ | 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
--- OUTSIDE RECORDS SUMMARY | ~2018-08-12 | XMS | Encounter Summary ---
Demographics + + + | Address | [address] | | | [place] [address] | + + + | Home Phone | | + + + | Preferred Language | Unknown | + + + | Marital Status | Single | + + + | Advent Affiliation | Unknown | + + + | Race | Unknown | + + + | Ethnic Group | Unknown | + + + Author + + + | Author | [facility] | + + + | Organization | [facility] | + + + | Address | Unknown | + + + | Phone | Unavailable | + + + Support + + +---------+ + | Name | Relationship | Address | Phone | + + +---------+ + | An Carlin | ECON | , [place] | | + + +---------+ + Care Team Providers + +------+ + | Care Data Scientist Name | Role | Phone | + +------+ + | Iqra Peralta MD | PCP | | + +------+ + Encounter Details +--------+ + + + + | Date | Type | Department | Care Team | Description | +--------+ + + + + | 07/16/ | Telephone | [facility] | [place], | | | 2018 | | [place] [address] | [address] | | | | | [address] | | | | | | [place] [address] | | | | | | [phone] | | | +--------+ + + + [...] [place] | | | | | | [address] | | | | | | | | +--------+---------+ + + + as of this encounter Visit Diagnoses Not on filein this encounter"
--- OUTSIDE RECORDS SUMMARY | ~2018-08-12 | XMS | Encounter Summary ---
Demographics + + + | Address | [address] | | | [place] [address] | + + + | Home Phone | | + + + | Preferred Language | Unknown | + + + | Marital Status | Single | + + + | Lutheran Affiliation | Unknown | + + + | Race | Unknown | + + + | Ethnic Group | Unknown | + + + Author + + + | Author | [facility] | + + + | Organization | [facility] | + + + | Address | Unknown | + + + | Phone | Unavailable | + + + Support + + +---------+ + | Name | Relationship | Address | Phone | + + +---------+ + | An Carlin | ECON | , [place] | | + + +---------+ + Care Team Providers + +------+ + | Care Cushion Assembler Name | Role | Phone | + +------+ + | Iqra Peralta MD | PCP | | + +------+ + Reason for Visit + + + | Reason | Comments | + + + | Labs Only | 07/22/18 | + + + Encounter Details +--------+ + + + + | Date | Type | Department | Care Team | Description | +--------+ + + + + | 07/23/ | Documentati | [facility] | [place] | Tong Only (07/22/18) | | 2019 | on Only | [place] [address] | [address] | | | | | [address] | | | | | | [place] [address] | | | | | | [phone] | | | +--------+ + + + [...] [place] | | | | | | [id number] | | | | | | | [...] + + + in this encounter Results Uric acid (07/22/2018 10:09 AM) + +-------+ + + | Component | Value | Ref Range | Performed At | + +-------+ + + | URIC ACID | 4.8 | 2.3 - 6.6 | | + +-------+ + + + + | Specimen | + + | Blood | + + Protein / creatinine ratio, urine (07/22/2018 10:09 [...] | | Unspecified Source | + + Basic metabolic panel (07/22/2018 [...] + + | Blood | + + CBC W/Auto Diff (Reflex [...] + + | Blood | + + Urine microscopic only (07/22/2018 10:09 AM) + + + + + | Component | Value | Ref Range | Performed At | + + + + + | COLOR UA | Yellow | | | + + + + + | CLARITY | Slightly Cloudy | | | + + + + + | Specific [place], UA | 1.035 (A) | 1.005 - [...] + + | Urine | + + in this encounter Visit Diagnoses Not on filein this encounter"
--- OUTSIDE RECORDS SUMMARY | ~2018-08-12 | XMS | Encounter Summary ---
Demographics + + + | Address | [address] | | | [place] [address] | + + + | Home Phone | | + + + | Preferred Language | Unknown | + + + | Marital Status | Single | + + + | Scientologist Affiliation | Unknown | + + + | Race | Unknown | + + + | Ethnic Group | Unknown | + + + Author + + + | Author | [email or web address] | + + + | Organization | [email or web address] | + + + | Address | Unknown | + + + | Phone | Unavailable | + + + Support + + +---------+ + | Name | Relationship | Address | Phone | + + +---------+ + | An Carlin | ECON | , [place] | | + + +---------+ + Care Team Providers + +------+ + | Care Institutional Custodian Name | Role | Phone | + [...] | | | | | [place] [address] | | | | | | [phone] | | | +--------+ + + + [...] [place] | | | | | | [address] | | | | | | | | +--------+---------+ + + + as of this encounter Visit Diagnoses Not on filein this encounter"
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
--- OUTSIDE RECORDS SUMMARY | ~2018-08-12 | XMS | Clinical Summary ---
Demographics + + + | Address | [address] | | | [place] [address] | + + + | Home Phone | | + + + | Preferred Language | Unknown | + + + | Marital Status | Single | + + + | Restoration Affiliation | Unknown | + + + | Race | Unknown | + + + | Ethnic Group | Unknown | + + + Author + + + | Author | [facility] | | | and [place] | + + + | Organization | [facility] | | [...] Team Providers + +------+ + | Care Thermometer Maker Name | Role | Phone | + [...] + + + Current Medications + + +---------+---------+------+------+-------+ | Prescription | Sig. | Disp. | Refills | Star | End | Statu | | | | | | t | Date | s | | | | | | Date | | | + + +---------+---------+------+------+-------+ | UNCODED | Diagnosis: | 1 | [...] | | | | | + + +---------+---------+------+------+-------+ | ergocalciferol | Take 50,000 Units by | | | | | Activ | | (VITAMIN D-2) 50,000 | mouth Three times a | | | | | e | | units capsule | week. | | | | | | + + +---------+---------+------+------+-------+ | furosemide (LASIX) | Take 40 mg by mouth | | | 09 | | Activ | | 40 mg tablet | Twice daily as | | | 320 | | e | | | needed for Edema. | | | 12 | | | + + +---------+---------+------+------+-------+ | UNCODED | Wear when sleeping. | 1 | 0 | 12/1 | | Activ | | MEDICATIONIndication | | Device | | 2/20 | | e | | s: ANNABEL (obstructive | | | | 13 | | | | sleep apnea) | | | | | | | + + +---------+---------+------+------+-------+ | UNCODED MEDICATION | Convert CPAP to | 1 | 0 | 02/1 | | Activ | | | purchase for ANNABEL | Device | | 8/20 | | e | | | (327.23) | | | 14 | | | + + +---------+---------+------+------+-------+ | Uncoded | Lifelong-99;Obstucti | 1 | 0 | 04/1 | | Activ | | MedicationIndication | e Sleep Apnea | Device | | 6/20 | | e | | s: Obstructive sleep | | | | 14 | | | | apnea (adult) | | | | | | | | (pediatric) | | | | | | | + + +---------+---------+------+------+-------+ | omeprazole | Take 20 mg by [...] | | | | | + + +---------+---------+------+------+-------+ | VENTOLIN HFA 108 | Inhale 2 puffs into | | | | | Activ | | (90 BASE) MCG/ACT | the lungs every 4 | | | | | e | | inhaler | hours as needed for | | | | | | | | Wheezing. | | | | | | + + +---------+---------+------+------+-------+ | atorvaSTATin | Take 10 mg by mouth | | 1 | 12/0 | | Activ | | (LIPITOR) 10 mg | Daily. | | | 9/20 | | e | | tablet | | | | 17 | | | + + +---------+---------+------+------+-------+ | pramipexole | Take 1.5 mg by mouth | | | | | Activ | | (MIRAPEX) 1.5 MG | 2 times daily. | | | | | e | | tablet | | | | | | | + + +---------+---------+------+------+-------+ | buPROPion | take 1 tablet by | | 0 | 02/0 | | Activ | | (WELLBUTRIN XL) 300 | mouth once daily | | | 7/20 | | e | | mg 24 hr tablet | | | | 18 | | | + + +---------+---------+------+------+-------+ | dilTIAZem (TIAZAC) | take 1 capsule by | | 0 | 02/0 | | Activ | | 360 MG 24 hr | mouth at bedtime | | | 620 | | e | | capsule | | | | 18 | | | + + +---------+---------+------+------+-------+ | metFORMIN | take 1 tablet by | | 0 | 02/0 | | Activ | | (GLUCOPHAGE) 1000 MG | mouth twice a day | | | 7/20 | | e | | tablet | | | | 18 | | | + + +---------+---------+------+------+-------+ | warfarin | 10 mg. Take 7.5mg [...] | | | | | + + +---------+---------+------+------+-------+ | albuterol | Inhale 2 puffs into | | | | | Activ | | (VENTOLIN HFA) 90 | the lungs every 4 | | | | | e | | mcg/puff inhaler | hours as needed for | | | | | | | | Shortness of Breath. | | | | | | + + +---------+---------+------+------+-------+ | amitriptyline | amitriptyline 25 mg | | | 12/2 | | Activ | | (ELAVIL) 25 mg | tablet Take 2 | | | 1/20 | | e | | tabletIndications: | tablets every day by | | | 11 | | | | Proteinuria, | oral route at | | | | | | | unspecified type | bedtime. | | | | | | + + +---------+---------+------+------+-------+ | buPROPion | take 1 tablet by [...] | | | | | + + +---------+---------+------+------+-------+ | diclofenac | apply 2 to 4 [...] | | | | | + + +---------+---------+------+------+-------+ | cefadroxil | Take 500 mg by mouth | | | | | Activ | | (DURICEF) 500 mg | Daily. | | | | | e | | capsule | | | | | | | + + +---------+---------+------+------+-------+ | empagliflozin | Take 25 mg by mouth | | | | | Activ | | (JARDIANCE) 25 mg | Daily. | | | | | e | | tablet | | | | | | | + + +---------+---------+------+------+-------+ | FEROSUL 325 (65 | Take 325 mg by mouth | | | 12/1 | | Activ | | Fe) MG tablet | Twice Daily. | | | 12/18 | | e | | | | | | 18 | | | + + +---------+---------+------+------+-------+ | gabapentin | Take 100 mg by mouth | | | 12/1 | | Activ | | (NEURONTIN) 100 mg | 3 times daily. | | | 12/18 | | e | | capsule | | | | 18 | | | + + +---------+---------+------+------+-------+ | | Take 1 tablet by | | 0 | 12/0 | | Activ | | HYDROcodone-acetamin | mouth Twice Daily. | | | 01/18 | | e | | ophen (NORCO) 5-325 | | | | 18 | | | | mg per tablet | | | | | | | + + +---------+---------+------+------+-------+ | levothyroxine | Take 88 mcg by mouth | | | 12/1 | | Activ | | (SYNTHROID) 88 mcg | Daily. | | | 12/18 | | e | | tablet | | | | 18 | | | + + +---------+---------+------+------+-------+ | LORazepam (ATIVAN) | Take 0.5 mg by mouth | | | | | Activ | | 0.5 mg tablet | Daily as needed. | | | | | e | + + +---------+---------+------+------+-------+ | losartan (COZAAR) | Take 25 mg by mouth | | 1 | 12/0 | | Activ | | 25 mg tablet | Daily. | | | 20 | | e | | | | | | 18 | | | + + +---------+---------+------+------+-------+ | valACYclovir | Take 1 g by mouth | | | | | Activ | | (VALTREX) 1 g tablet | Daily. | | | | | e | + + +---------+---------+------+------+-------+ | beclomethasone HFA | Inhale 2 puffs into | 1 | 11 | 12/ | | Activ | | (QVAR REDIHALER) 80 | the lungs 2 times | Inhaler | | 06/20 | | e | | mcg/puff | daily. | | | 18 | | | | inhalerIndications: | | | | | | | | Mild persistent | | | | | | | | asthma without | | | | | | | | complication | | | | | | | + + +---------+---------+------+------+-------+ Active Problems + + + | Problem [...] 12/23/2011 | + + + | Hyperparathyroidism (HCC) | 11/05/2011 | + + + | Hypertensive disorder | 10/13/2011 | + + + | MORBID OBESITY | 10/02/2011 | + + + | Posttraumatic stress disorder | 10/02/2011 | + + + | Narcolepsy | 11/20/2010 | + + + | Panic disorder | 01/11/2009 | + + + | Recurrent major depressive episodes, moderate (HCC) | 01/11/2009 | + + + | [...] 6 | + + + + Encounters +--------+---------+ + + + | Date | Type | Specialty | Care Team | Description | +--------+---------+ + + + | 05/31/ | Office | | Adolfo Zazueta, | Restrictive lung | | 2018 | Visit | | MD | disease secondary to | | | | | | obesity (Primary | | | | | | Dx); Mild persistent | | | | | | asthma without | | | | | | complication | +--------+---------+ + + + from Last 3 Months [...] Weight | 181.8 kg (400 lb | 05/31/20187 PST | | | 12.7 oz) | | + + + + | Height | 160 cm (5' 3") | 05/31/20187 PST | + + + + | Body Mass Index | 71 | 05/31/20181326 PST | + + + + Plan of Treatment +--------+---------+ + + + | Date | Type | Specialty | Care Team | Description | +--------+---------+ + + + | 09/14/ | Office | | Jermaine Fairchild | | | 2019 | Visit | | MD Lars [address] | | | | | | [place] | | | | | | [place] [address] | | | | | | [phone] | | | | | | | [...] + + + + | Hemoglobin A1c Q3 | | 10/01/2016 | | | Months | 7 | | | + + [...] | [employer] | MODA | [id number] | Medica | [phone] | | | MEDICAID HMO | HEALTH [...] Self | [birth year] | Home: | [address] | | | al/Fam | | 1971 | [phone] | [place] | | | kevin | | | [phone] | [address] | + +--------+ +--------+ + +
--- OUTSIDE RECORDS SUMMARY | ~2018-08-12 | XMS | Encounter Summary ---
Demographics + + + | Address | [address] | | | [place] [address] | + + + | Home Phone | | + + + | Preferred Language | Unknown | + + + | Marital Status | Single | + + + | Quaker Affiliation | Unknown | + + + | Race | Unknown | + + + | Ethnic Group | Unknown | + + + Author + + + | Author | [facility] | + + + | Organization | [facility] | + + + | Address | Unknown | + + + | Phone | Unavailable | + + + Support + + +---------+ + | Name | Relationship | Address | Phone | + + +---------+ + | An Carlin | ECON | , [place] | | + + +---------+ + Care Team Providers + +------+ + | Care Saddle Maker Name | Role | Phone | [...] | | | | | [place] [address] | | | | | | [phone] | | | +--------+ + + + [...] [place] | | | | | | [address] | | | | | | | | +--------+---------+ + + + as of this encounter Visit Diagnoses Not on filein this encounter"
--- OUTSIDE RECORDS SUMMARY | ~2018-08-12 | XMS | Encounter Summary ---
Demographics + + + | Address | [address] | | | [place] [address] | + + + | Home Phone | | + + + | Preferred Language | Unknown | + + + | Marital Status | Single | + + + | Temple Affiliation | Unknown | + + + | Race | Unknown | + + + | Ethnic Group | Unknown | + + + Author + + + | Author | [facility] | + + + | Organization | [facility] | + + + | Address | Unknown | + + + | Phone | Unavailable | + + + Support + + +---------+ + | Name | Relationship | Address | Phone | + + +---------+ + | An Carlin | ECON | , [place] | | + + +---------+ + Care Team Providers + +------+ + | Care Bottom Cager Name | Role | Phone | + +------+ + | Iqra Peralta MD | PCP | | + +------+ + Encounter Details +--------+ + + + + | Date | Type | Department | Care Team | Description | +--------+ + + + + | 08/02/ | Telephone | [facility] | Héctor, | | | 2018 | | [place] [address] | [place] [address] | | | | | [address] | | | | | | [place] [address] | | | | | | [phone] | | | +--------+ + + + [...] [place] | | | | | | [address] | | | | | | | | +--------+---------+ + + + + +--------+ + + | Name | Priori | Associated Diagnoses | Order Schedule | | | ty | | | + +--------+ + + | Basic metabolic panel | Routin | Essential | Expected: | | | e | (primary) | 11/02/2018, Expires: | | | | hypertension | 08/03/2019 | | | | Persistent | | | | | proteinuria | | | | | Nephrotic range | | | | | proteinuria | | + +--------+ + + | CBC W/Auto Diff (Reflex to | Routin | Essential | Expected: | | Manual) | e | (primary) | 11/02/2018, Expires: | | | | hypertension | 08/03/2019 | | | | Persistent | | | | | proteinuria | | | | | Nephrotic range | | | | | proteinuria | | + +--------+ + + | Urinalysis (reflex to micro) | Routin | Essential | Expected: | | | e | (primary) | 11/02/2018, Expires: | | | | hypertension | 08/03/2019 | | | | Persistent | | | | | proteinuria | | | | | Nephrotic range | | | | | proteinuria | | + +--------+ + + | Protein / creatinine ratio, urine | Routin | Essential | Expected: | | | e | (primary) | 11/02/2018, Expires: | | | | hypertension | 08/03/2019 | | | | Persistent | | | | | proteinuria | | | | | Nephrotic range | | | | | proteinuria | | + +--------+ + + | Basic metabolic panel | Routin | Essential | Expected: | | | e | (primary) | 08/09/2018, Expires: | | | | hypertension | 08/03/2019 | | | | Persistent | | | | | proteinuria | | | | | Nephrotic range | | | | | proteinuria | | + +--------+ + + as of this encounter Visit Diagnoses + + | Diagnosis | + + | Essential (primary) hypertension - Primary | + + | Unspecified essential hypertension | + + | Persistent proteinuria | + + | Proteinuria | + + | Nephrotic range proteinuria | + + | Proteinuria | + +"
--- OUTSIDE RECORDS SUMMARY | ~2018-08-12 | XMS | Encounter Summary ---
Demographics + + + | Address | [address] | | | [place] [address] | + + + | Home Phone | | + + + | Preferred Language | Unknown | + + + | Marital Status | Single | + + + | Shinto Affiliation | NON | + + + [...] Team Providers + +------+ + | Care Outpatient Clerk Name | Role | Phone | [...] | | | | | | | [address] | | | | | | [address] | | | | | | | Mailcode: | | | | | | | [facility] | | | | | | | for Health | | | | | | | and Healing | | | | | | | [place], [place] | | | | | | | [address] | | | | | | | Phone: | | | | | | | [phone] | | | | | | | Fax: | | | | | | | [phone] | + +--------+ + + + + Encounter Details +--------+---------+ + + + | Date | Type | Department | Care Team | Description | +--------+---------+ + + + | 07/09/ | Office | Digestive Health | [address] | Morbid obesity with | | 2019 | Visit | Center at [facility] | [address] | BMI of 60.0-69.9, | | | | Floor [address] | [place], | adult (HCC) (Primary | | | | Ave Mailcode: | [place] [address] | Dx); S/P | | | | [id number] | | laparoscopic sleeve | | | | [facility] and Healing | | gastrectomy; | | | | [place], [place] | | Diabetes mellitus | | | | [address] | | type 2, | | | | [phone] | | diet-controlled | | | | [...] referred by: DO Jamie Tay S Jessy [facility] [address] Documented time of visit: 1:04 to 1:29 (25 minutes [id number] with patient) Surgery: Sleeve Gastrectomy Date of [...] echo and chest xray findings. 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 Shortness of breath Thyroid disease Food logs: no Food choices: B: Belizean yogurt ([employer]) and a cup of coffee with Splenda L: Goes to [employer] ([employer]) & has lunch at the [employer] - "whatever they have to off er" [...] - will need to follow up via [facility] with dates and instructions Continue to increase physical activity. Follow up as needed. Margot Contreras RD, [facility], LD [facility] [phone] in this encounter Plan of Treatment +--------+---------+ + + + | Date | Type | Specialty | Care Team | Description | +--------+---------+ + + + | 09/06/ | Office | Pain Management | Ramona Sunshine | | | 2019 | Visit | | Ross, PhD [address] | | | | | | [place], [place] | | | | | | [address] | | | | | | [phone] | | | | | | | | +--------+---------+ + + + as of this encounter Procedures + +--------+ + + + | Procedure Name | Priori | Date/Time | Associated Diagnosis | Comments | | | ty | | | | + +--------+ + + + | NE MNT RE-ASSESSMNT | Routin | 07/09/2018 | Morbid obesity | | | X15MIN | e | 3:26 PM | with BMI of | | | | | PST | 60.0-69.9, adult | | | | | | ([facility]) S/P | | | | | | laparoscopic sleeve | | | | | | gastrectomy | | | | | | Diabetes mellitus | | | | | | type 2, | | | | | | diet-controlled | | | | | | ([facility]) | | + +--------+ + + + in this encounter Visit Diagnoses + + | Diagnosis | + + | Morbid obesity with BMI of 60.0-69.9, adult (HCC) - Primary | + + | S/P laparoscopic sleeve gastrectomy | + + | Diabetes mellitus type 2, diet-controlled ([facility]) | + + | Type II or unspecified type diabetes mellitus without mention of complication, not | | stated as uncontrolled | + +
--- OUTSIDE RECORDS SUMMARY | ~2018-08-12 | XMS | Encounter Summary ---
Demographics + + + | Address | [address] | | | [place] [address] | + + + | Home Phone | | + + + | Preferred Language | Unknown | + + + | Marital Status | Single | + + + | Presybeterian Affiliation | Unknown | + + + | Race | Unknown | + + + | Ethnic Group | Unknown | + + + Author + + + | Author | [facility] | + + + | Organization | [facility] | + + + | Address | Unknown | + + + | Phone | Unavailable | + + + Support + + +---------+ + | Name | Relationship | Address | Phone | + + +---------+ + | An Carlin | ECON | , [place] | | + + +---------+ + Care Team Providers + +------+ + | Care Legal Billing Analyst Name | Role | Phone | [...] | | 2019 | on Only | [place] [address] | Retroperitoneal | | | | [address] | | 04/27/2018) | | | | [place] [address] | | | | | | [phone] | | | +--------+ + + + [...] | | | | | | [address] | | | | | | [address] | | | | | | | | +--------+---------+ + + + as of this encounter Visit Diagnoses Not on filein this encounter"
--- OUTSIDE RECORDS SUMMARY | ~2018-08-12 | XMS | Encounter Summary ---
Demographics + + + | Address | [address] | | | [place] [address] | + + + | Home Phone | | + + + | Preferred Language | Unknown | + + + | Marital Status | Single | + + + | Rastafari Affiliation | Unknown | + + + | Race | Unknown | + + + | Ethnic Group | Unknown | + + + Author + + + | Author | [facility] | + + + | Organization | [facility] | + + + | Address | Unknown | + + + | Phone | Unavailable | + + + Support + + +---------+ + | Name | Relationship | Address | Phone | + + +---------+ + | An Carlin | ECON | , [place] | | + + +---------+ + Care Team Providers + +------+ + | Care Immigration Services Officer Name | Role | Phone | [...] | | | | | [place] [address] | | | | | | [phone] | | | +--------+ + + + [...] [place] | | | | | | [address] | | | | | | | | +--------+---------+ + + + as of this encounter Visit Diagnoses Not on filein this encounter"
--- OUTSIDE RECORDS SUMMARY | ~2018-08-12 | XMS | Encounter Summary ---
Demographics + + + | Address | [address] | | | [place] [address] | + + + | Home Phone | | + + + | Preferred Language | Unknown | + + + | Marital Status | Single | + + + | Anabaptism Affiliation | Unknown | + + + | Race | Unknown | + + + | Ethnic Group | Unknown | + + + Author + + + | Author | [facility] | + + + | Organization | [facility] | + + + | Address | Unknown | + + + | Phone | Unavailable | + + + Support + + +---------+ + | Name | Relationship | Address | Phone | + + +---------+ + | An Carlin | ECON | , [place] | | + + +---------+ + Care Team Providers + +------+ + | Care Die Tripper Name | Role | Phone | + +------+ + | Irqa Peralta MD | PCP | | + +------+ + Encounter Details +--------+---------+ + + + | Date | Type | Department | Care Team | Description | +--------+---------+ + + + | 08/02/ | Office | [facility] | Ricardo Mijares MD | Essential (primary) | | 2019 | Visit | [place] [address] | [address] | hypertension | | | | [address] | [address] [place], [place] | (Primary Dx); | | | | [place] [address] | [phone] | Nephrotic range | | | | [phone] | | proteinuria; Morbid | | | [...] have a BMP, CBC, urinalysis, Urine total ktrgjlv-sy-pnufwqpdst ratio before she comes back in 3 [...] 80 (A) 10/21/2017 LABPROT 3,723.4 (A) 07/22/2018 [id number] 45 01/20/2018 Assessment: Ms. Darden is a [...] have a BMP, CBC, urinalysis, Urine total lrbsztd-fh-kinntvfivc ratio before she comes back in 3 months. 15 minutes of this 25-minute visit was spent in education and counseling. Thank you Dr Peralta for the opportunity to see this patient in F/U today. Please do not hesi renee to call me at any time with questions or concerns. Truly yours, Ricardo Mijares MD [facility] in this encounter Plan of Treatment +--------+---------+ + + + | Date | Type | Specialty | Care Team | Description | +--------+---------+ + + + | 11/08/ | Office | Nephrology | Ricardo Mijares MD | | | 2019 | Visit | | [address] | | | | | | [address] [facility] | | | | | | [address] | | | | | | | [...]
--- OUTSIDE RECORDS SUMMARY | ~2018-08-12 | XMS | Clinical Summary ---
Demographics + + + | Address | [address] | | | [place] [address] | + + + | Home Phone [...] Team Providers + +------+ + | Care Controls Designer Name | Role | Phone | + +------+ + | Iqra Peralta MD | PP | | + +------+ + Source Comments SHERIE is fully live on both [facility] Ambulatory and [facility] InPatient.[facility] Allergies + + + + [...] Morbid obesity with BMI of 60.0-69.9, adult ([facility]) | 02/25/2016 | + + + + [...] aproval | | 2019 | Encounter | | Kofi Moya PhD | | +--------+ + + + + | 07/22/ | Abstract | | Juan Antonio Mclaughlin, | | | 2018 | | | MD | | +--------+ + + + + | 07/20/ | Admissions Manager Rn | | Kath Boyle | | | 2018 | | | JULIETA Jiménez | | +--------+ + + + + | 07/20/ | Telephone | | Kath Boyle | Follow-up encounter | | 2018 | | | JW Jiménez-Sabine | | +--------+ + + + + | 07/16/ | Abstract | | Kath Boyle | | | 2018 | | | JW Jiménez-Sabine | | +--------+ + + + + | 07/16/ | MyChart | | Ben, Margot, RD | RE:Multivitamin | | 2019 | Encounter | | | | +--------+ + + + + | 07/12/ | Telephone | | Juan Antonio Mclaughlin, | Prior Authorization | | 2018 | | | MD | Request ([facility] ) | +--------+ + + + + | 07/09/ | Lab | | | 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; H/O | | | | | | bariatric surgery; | | | | | | Diabetes mellitus | | | | | | type 2, | | | | | | diet-controlled | | | | | | ([facility]) | +--------+ + + + + | 07/09/ | Office | | Juan Antonio Mclaughlin, | S/P laparoscopic | | 2018 | Visit | | MD | sleeve gastrectomy | | | | | | (Primary Dx); Morbid | | | | | | obesity with BMI of | | | | | | 60.0-69.9, adult | | | | | | ([facility]); Diabetes | | | | | | mellitus type 2, | | | | | | diet-controlled | | | | | | ([facility]) | +--------+ + + + + | 07/09/ | Office | | AlexandraKath bailey | Chest pain at rest | | 2018 | Visit | | E, PA-C | (Primary Dx); | | | | | | Persistent atrial | | | | | | fibrillation (HCC); | | | | | | Essential | | | | | | hypertension; | | | | | | Diabetes mellitus | | | | | | type 2 in obese | | | | | | (HCC); Pre-operative | | | | | | [...] | 07/09/ | Telephone | | Yaritza Venegas, | | | 2018 | | | MD | | +--------+ + + + + from Last 3 Months Family History + + +------+ + | Medical History | Relation | Name | Comments | + + +------+ + | Diabetes | Father | | | + + +------+ + | Heart Disease | Father | | [place] 78 | + + +------+ + | [...] + + | 09/06/ | Office | | Ramona Sunshine | | | 2019 | Visit | | Ross PhD [address] | | | | | | [place], [place] | | | | | | [address] | | | | | | [phone] | | | | | | | [...] Lot | + +------+--------+ +--------+--------+--------+ | Dion Seamguard Implanted: | | N/A: | | | 09/28/ | [id number] | | Qty: 4 on 02/07/2015 by | Dianelys De Leon | | | 2018 | [id number] / | | Dori Reed MD | | n | | | | | | | | | | | | /[id number] | | | | | | | | 329 | + +------+--------+ +--------+--------+--------+ | Dion GaticaardImplanted: Qty: | | N/A: | | | 08/29/ | 12BSGE | | 2 on 02/07/2015 by Dianelys Reed | | | 2017 | [id number] / | | Dori Ferris MD | | n | | | | | | | | | | | | /[id number] | | | | | | | [...] | + +--------+ + + + | TN MNT RE-ASSESSMNT | Routin | 07/09/2018 | Morbid obesity | | | X15MIN | e | 3:26 PM | with BMI of | | | | | PST | 60.0-69.9, adult | | | | | | ([facility]) S/P | | | | | | laparoscopic sleeve | | | | | | gastrectomy | | | | | | Diabetes mellitus | | | | | | type 2, | | | | | | diet-controlled | | | | | | ([facility]) | | + +--------+ + + + [...] | 3.50 - 10.80 K/cu mm | [facility] | | | | | SERVICES, CORE | + + + + + | RED CELL COUNT | 4.85 | 4.00 - 5.20 M/cu mm | [facility] | | | | | SERVICES, CORE | + + + + + | HEMOGLOBIN | 15.1 | 12.0 - 16.0 g/dL | [facility] | | | | | SERVICES, CORE | + + + + + | HEMATOCRIT | 47.8 (H) | 36.0 - 46.0 % | [facility] | | | | | SERVICES, CORE | + + + + + | MCV | 98.6 | 80.0 - 100.0 fL | [facility] | | | | | SERVICES, CORE | + + + + + | MCHC | 31.6 (L) | 32.0 - 36.0 g/dL | [facility] | | | | | SERVICES, CORE | + + + + + | RDW SD | 53.1 (H) | 35.1 - 46.3 fL | [facility] | | | | | SERVICES, CORE | + + + + + | PLATELET COUNT | 407 (H) | 150 - 400 K/cu mm | [facility] | | | | | SERVICES, CORE | + + + + + | MPV | 10.2 | 9.7 - 12.3 fL | [facility] | | | | | SERVICES, CORE | + + + + + | NRBC% | 0.0 | 0.0 - 0.3 % | [facility] | | | | | SERVICES, CORE | + + + + + | NRBC# | 0.00 | 0.00 - 0.02 K/cu mm | [facility] | | | | | [place] | + + + + + + + | Specimen | + + | Blood - Blood | + + + + + + + | Performing | Address | City/State/Zipcode | Phone Number | | Organization | | | | + + + + + | [facility] | [address] | [place] [address] | | | [place] | [address] | | | + + + + + VITAMIN B1, WHOLE BLOOD (07/09/2018 4:20 PM) + + + + + | Component | Value | Ref Range | Performed At | + + + + + | VITAMIN B1, WHOLE | 142Comment: INTERPRETIVE | 70 - 180 nmol/L | [facility] | | BLOOD | INFORMATION: Vitamin [...] | | | | | determined by [facility] | | | | | Laboratories. See | | | | | Compliance Statement B: | | | | | UCampus/CSPerformed | | | | | by [employer],[address] | | | | | [address], [facility],[place] | | | | | [address] | | | | | [phone]. | | | | | Anapsis, Iker Angelo MD, | | | | [...] [facility] | [address] | [place], [place] | | | UNIV P[facility] - INT[facility] | | [address] | | + + + + + [...] | + + + + + | [facility] | [address] | [place] [address] | | | SERVICES, CORE | [address] [...] LABORATORY | [address] | [place] [address] | | | SERVICES, SPECIAL | PARK [...] LABORATORY | | (LAB) | | | TAVARES CORE | + [...] >60 mL/min | [facility] | | GU[place]AN | | | SERVICES, CORE | + +---------+ + + | EGFR NON | >60 | >60 mL/min | [facility] | | -[place]AN | | | SERVICES, CORE | + [...] LABORATORY | | CORRECTED) | | | TAVARES, CORE | + [...] POTASSIUM CMNT | No Hemo | | [facility] | | | | | SERVICES, CORE | + +---------+ + + | ABDI Shannon CMNT | No Hemo | | [facility] | | | | | SERVICES, CORE | + +---------+ + + | AST CMNT | No Hemo | | [facility] | | | | | SERVICES, [...] | + + + + + | [facility] | [address] | [place] [address] | | | SERVICES, CORE | PARK [...] Statement B: | | | | | [email or web address]/CSPerformed | | | | | by [employer],[address] | | | | | [address], [facility],[place] | | | | | [address] | | | | | [phone]. | | | | | Anapsis, Iker Angelo MD, | | | | [...] [facility] | [address] | [place], [place] | | | UN[facility] P[facility] - INTFC | | [address] | | + + + + + FERRITIN (07/09/2018 4:20 PM) + + + + + | Component | Value | Ref Range | Performed At | + + + + + | FERRITIN | 53Comment: Male and | 50 - 200 ng/mL | [facility] | | | Female [...] | + + + + + | [facility] | [address] | [place] [address] | | | SERVICES, CORE | [address] | | | + + + + + PTH, SERUM (07/09/2018 4:20 PM) + +-------+ + + | Component | Value | Ref Range | Performed At | + +-------+ + + | PTH, SERUM | 74 | 18 - 88 pg/mL | [facility] | | | | | [address] | + +-------+ + + + + | Specimen | + + | Blood - Blood | + + + + + + + | Performing | Address | City/State/Zipcode | Phone Number | | Organization | | | | + + + + + | [facility] | [address] | [place] [address] | | | TAVARES, MIR | [address] [...] LABORATORY | [address] | [place] [address] | | | SERVICES, [facility] | [address] | | | + + + + + HEMOGLOBIN A1C, BLOOD (07/09/2018 4:20 PM) + + + + + | Component | Value | Ref Range | Performed At | + + + + + | HEMOGLOBIN A1C | 6.2 (H)Comment: Hgb A1C | <5.7 % | [facility] | | | Interpretive [...] | [facility] | | considered for monitoring intermodal truck driver glycemic control in patients with: | LABORATORY [...] + | [facility] | [address] | [place] [address] | | | SERVICES, SPECIAL | [address]ANCY [...] LABORATORY | [address] | [place] [address] | | | SERVICES, MIR | [address] | | | + [...] OF | [address] | [place], [place] | | | CARDIOLOGY | [address] | [address] | | + + + + + from Last 3 Months Insurance + +--------+ +--------+-------+---------+ | Payer | Benefi | Subscriber | Type | Phone | Address | | | t Plan | ID | | | | | | / | | | | | | | Group | | | | | + +--------+ +--------+-------+---------+ | DIGITAL PHOTOGRAPHER MEDICAID | DIGITAL PHOTOGRAPHER | xxxxxxxx | Medica | | | [...] 8th | | | al/Fam | | 1970 | +- | [place] [address] | | | kevin | | | 5364 | | + +--------+ +--------+ + + | DEANN JOSÉ SURAJ | Behavi | Self | 09/16/ | Home: | 8th | | | oral | | 1970 | +- | [place] [address] | | | Health | | | 5364 | | + +--------+ +--------+ + +
--- OUTSIDE RECORDS SUMMARY | ~2018-08-12 | XMS | Encounter Summary ---
Demographics + + + | Address | [address] | | | [place] [address] | + + + | Home Phone | | + + + | Preferred Language | Unknown | + + + | Marital Status | Single | + + + | Judaism Affiliation | Unknown | + + + | Race | Unknown | + + + | Ethnic Group | Unknown | + + + Author + + + | Author | [email or web address] | + + + | Organization | [facility] | + + + | Address | Unknown | + + + | Phone | Unavailable | + + + Support + + +---------+ + | Name | Relationship | Address | Phone | + + +---------+ + | An Carlin | ECON | , [place] | | + + +---------+ + Care Team Providers + +------+ + | Care Junior Designer Name | Role | Phone | + +------+ + | Iqra Peralta MD | PCP | | + +------+ + Encounter Details +--------+---------+ + + + | Date | Type | Department | Care Team | Description | +--------+---------+ + + + | 08/02/ | Office | [facility] | Ricardo Mijares MD | Essential (primary) | | 2019 | Visit | [place] [address] | [address] | hypertension | | | | [address] | [address] [place], [place] | (Primary Dx); | | | | [place] [address] | [phone] | Nephrotic range | | | | [phone] | | proteinuria; Morbid | | | [...] have a BMP, CBC, urinalysis, Urine total dnlxkjv-cw-dyhyahyamb ratio before she comes back in 3 [...] 80 (A) 10/21/2017 LABPROT 3,723.4 (A) 07/22/2018 [id number] 45 01/20/2018 Assessment: Ms. Darden is a [...] have a BMP, CBC, urinalysis, Urine total bswirzq-pt-lcyqtquzdc ratio before she comes back in 3 months. 15 minutes of this 25-minute visit was spent in education and counseling. Thank you Dr Peralta for the opportunity to see this patient in F/U today. Please do not hesi renee to call me at any time with questions or concerns. Truly yours, Ricardo Mijares MD [facility] in this encounter Plan of Treatment +--------+---------+ + + + | Date | Type | Specialty | Care Team | Description | +--------+---------+ + + + | 11/08/ | Office | Nephrology | Ricardo Mijares MD | | | 2019 | Visit | | [address] | | | | | | [facility] | | | | | | [address] | | | | | | | [...]
--- OUTSIDE RECORDS SUMMARY | ~2018-08-12 | XMS | Encounter Summary ---
Demographics + + + | Address | [address] | | | [place] [address] | + + + | Home Phone [...] Team Providers + +------+ + | Care Engineer Rf Deployment Name | Role | Phone | + [...] [address] | | | | | | [facility] | | | | | | [place], [place] | | | | | | [address] | | | +--------+ + + + [...] | | | | | | [place], [place] | | | | | | [address] | | | | | | [phone] | | | | | | | | +--------+---------+ + + + as of this encounter Visit Diagnoses Not on filein this encounter"
--- OUTSIDE RECORDS SUMMARY | ~2018-08-12 | XMS | Encounter Summary ---
Demographics + + + | Address | [address] | | | [place] [address] | + + + | Home Phone [...] Author + + + | Author | [facility] | + + + | Organization | [facility] | + + + | Address | Unknown | + + + | Phone | Unavailable | + + + Support + + +---------+ + | Name | Relationship | Address | Phone | + + +---------+ + | Jordan Aguirre | ECON | Unknown | Unavailable | + + +---------+ + Care Team Providers + +------+ + | Care Client Service Manager Name | Role | Phone | [...] | 2019 | Encounter | Center at [facility] | [address] | | | | | Floor [address] | [place], | | | | | [place] Mailcode: | [place] [address] | | | | | [facility] | | | | | | Health and Healing | | | | | | [place], [place] | | | | | | [address] | | | | | | [phone] | | | +--------+ + + + [...] [place] | | | | | | [address] | | | | | | [phone] | | | | | | | | +--------+---------+ + + + as of this encounter Visit Diagnoses Not on filein this encounter"
--- OUTSIDE RECORDS SUMMARY | ~2018-08-12 | XMS | Encounter Summary ---
Demographics + + + | Address | [address] | | | [place] [address] | + + + | Home Phone | | + + + | Preferred Language | Unknown | + + + | Marital Status | Single | + + + | Temple Affiliation | NON | + + + | Race | White | + + + | Ethnic Group | Not or | + + + Author + + + | Author | [facility] | + + + | Organization | [facility] | + + + | Address | Unknown | + + + | Phone | Unavailable | + + + Support + + +---------+ + | Name | Relationship | Address | Phone | + + +---------+ + | Jordan Aguirre | ECON | Unknown | Unavailable | + + +---------+ + Care Team Providers + +------+ + | Care Professor Of Graphic Design Name | Role | Phone | + [...] 2019 | | [facility] | [facility] [address] | | | | | [place] at | [address] [place], | | | | | [place] [address] | [place] [address] | | | | | [address] | [phone] | | | | | [place], [place] | | | | | | [address] | | | | | | [phone] | | | +--------+ + + + [...] | | | | | | [place], [place] | | | | | | [address] | | | | | | [phone] | | | | | | | | +--------+---------+ + + + as of this encounter Visit Diagnoses Not on filein this encounter"
--- OUTSIDE RECORDS SUMMARY | ~2018-08-12 | XMS | Encounter Summary ---
Demographics + + + | Address | [address] | | | [place] [address] | + + + | Home Phone | | + + + | Preferred Language | Unknown | + + + | Marital Status | Single | + + + | Hinduism Affiliation | Unknown | + + + | Race | Unknown | + + + | Ethnic Group | Unknown | + + + Author + + + | Author | [facility] | + + + | Organization | [facility] | + + + | Address | Unknown | + + + | Phone | Unavailable | + + + Support + + +---------+ + | Name | Relationship | Address | Phone | + + +---------+ + | An Carlin | ECON | , [place] | | + + +---------+ + Care Team Providers + +------+ + | Care Volunteer Specialist Name | Role | Phone | [...] | | | | | [place] [address] | | | | | | [phone] | | | +--------+ + + + [...] [place] | | | | | | [id number] | | | | | | | [...] + + + + + | Specific [place], UA | 1.035 (A) | 1.005 - [...]
--- OUTSIDE RECORDS SUMMARY | ~2018-08-12 | XMS | Encounter Summary ---
Demographics + + + | Address | [address] | | | [place] [address] | + + + | Home Phone [...] Team Providers + +------+ + | Care Scientific Process Operator Name | Role | Phone | [...] | | | | | Atrial | [place] | | | | | fibrillation | [address] | [address] | | | | | , | Phone: | Phone: | | | | | unspecified | [phone] | [phone] | | | | | type (HCC) | Fax: | Fax: | | | | | Abnormal ECG | [phone] | [phone] | | | | | | | [...] | | | | | | | ([facility]) | | | | | | | [...] | | 2019 | Visit | at [facility] [address] | [address], [address] | (Primary Dx); | | | | [address] Mailcode: | [address] [place], | Persistent atrial | | | | [facility] | [place] [address] | fibrillation ([facility]); | | | | Health and Healing, | [phone] | Essential | | | | 9th Floor [place], | | hypertension; | | | | [place] [address] | | Diabetes mellitus | | | | [phone] | | type 2 in obese | | | | | | ([facility]); Pre-operative | | | | | | [...] 11%. KATH MALIK PA-C CARDIOLOGY GENERAL AT [address] [place] Mailcode: [address] [id number] Kath Malik PA-C - 07/09/2018 1:40 PM [...] DVT/PE Aspen reports a cardiac evaluation at [facility] in [place] for dental extrac tions. She had a [...] echo and chest xray findings. Followed by chain mender in [place]. Shortness of breath Thyroid disease Current Outpatient [...] Diabetes Father Hypertension Father Heart Disease Father [place] 78 Hypertension Mother Obesity Mother Social History [...] and no inducible ischemia Records reviewed from [facility] (see media tab and CareEverywhere): Echo 11/04/17: [...] There is no pericardial effusion.21. No mass glxdztrmoi18. Poo r visualization. Definity was used to [...] calculator (one point for each "yes" answer) [email or web address]/[email or web address]-[email or web address]/ A. Elevated risk surgery?: yes B. Ischemic [...] provider/surgeon Yaritza Venegas MD CARDIOLOGY - PREVENTIVE [address] Mailcode: [id number] [place] [address] in this encounter Plan of Treatment +--------+---------+ + + + | Date | Type | Specialty | Care Team | Description | +--------+---------+ + + + | 09/06/ Office | Pain Management | Ramona Sunshine | | | 2018 | Visit | | W, PhD [address] | | | | | | [place], [place] | | | | | | [address] | | | | | | [phone] | | | | | | | [...] + + | [facility] | [address] | [place], [place] | | | CARDIOLOGY | [address] | [address] | | + + + + + [...]
--- OUTSIDE RECORDS SUMMARY | ~2018-08-12 | XMS | Encounter Summary ---
Demographics + + + | Address | [address] | | | [place] [address] | + + + | Home Phone [...] Team Providers + +------+ + | Care Butter Grader Name | Role | Phone | + [...] | | 2019 | | Preventive at [facility] | MD [address] | Request (Chriswendyadrián ) | | | | [address] | [place], [place] | | | | | Mailcode: [facility] | [address] | | | | | [facility] | [phone] | | | | | and Healing | | | | | | [place], [place] | | | | | | [address] | | | | | | [phone] | | | +--------+ + + + [...] | | | | | | [place], [place] | | | | | | [address] | | | | | | [phone] | | | | | | | | +--------+---------+ + + + as of this encounter Visit Diagnoses Not on filein this encounter"
--- OUTSIDE RECORDS SUMMARY | ~2018-08-12 | XMS | Encounter Summary ---
Demographics + + + | Address | [address] | | | [place] [address] | + + + | Home Phone | | + + + | Preferred Language | Unknown | + + + | Marital Status | Single | + + + | Mu-Ism Affiliation | NON | + + + | Race | White | + + + | Ethnic Group | Not or | + + + Author + + + | Author | [facility] | + + + | Organization | [facility] | + + + | Address | Unknown | + + + | Phone | Unavailable | + + + Support + + +---------+ + | Name | Relationship | Address | Phone | + + +---------+ + | Jordan Aguirre | ECON | Unknown | Unavailable | + + +---------+ + Care Team Providers + +------+ + | Care Metal Model Builder Name | Role | Phone | [...] | | 2019 | | Preventive at [facility] | MD [address] | Request (Chriswendyadrián ) | | | | [address] | [place], [place] | | | | | Mailcode: [facility] | [address] | | | | | [facility] | [phone] | | | | | and Healing | | | | | | [place], [place] | | | | | | [address] | | | | | | [phone] | | | +--------+ + + + [...] | | | | | | [place], [place] | | | | | | [address] | | | | | | [phone] | | | | | | | | +--------+---------+ + + + as of this encounter Visit Diagnoses Not on filein this encounter"
--- OUTSIDE RECORDS SUMMARY | ~2018-08-12 | XMS | Encounter Summary ---
Demographics + + + | Address | [address] | | | [place] [address] | + + + | Home Phone [...] Team Providers + +------+ + | Care Automat Car Attendant Name | Role | Phone | + [...] | | | | | Atrial | [place], [place] | [place] | | | | | fibrillation | [address] | [address] | | | | | , | Phone: | Phone: | | | | | unspecified | [phone] | [phone] | | | | | type (HCC) | Fax: | Fax: | | | | | Abnormal ECG | [phone] | [phone] | | | | | | | [...] | | | | | | | ([facility]) | | | | | | [...] | | 2019 | Visit | at [facility] [address] | [address], [address] | (Primary Dx); | | | | [address] Mailcode: | [address] [place], | Persistent atrial | | | | [facility] | [place] [address] | fibrillation ([facility]); | | | | Health and Healing, | [phone] | Essential | | | | 9th Floor [place], | | hypertension; | | | | [place] [address] | | Diabetes mellitus | | | | [phone] | | type 2 in obese | | | | | | ([facility]); Pre-operative | | | | | [...] 11%. KATH MALIK PA-C CARDIOLOGY GENERAL AT [address] Mailcode: [address] [phone] Kath Malik PA-C - 07/09/2018 1:40 PM [...] DVT/PE [place] reports a cardiac evaluation at [facility] in [place] for dental extrac tions. She had a [...] echo and chest xray findings. 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 Shortness of breath Thyroid disease Current Outpatient [...] Diabetes Father Hypertension Father Heart Disease Father [place] 78 Hypertension Mother Obesity Mother Social History [...] and no inducible ischemia Records reviewed from [facility] (see media tab and CareEverywhere): Echo 11/04/17: [...] There is no pericardial effusion.21. No mass wpifwvvgoa91. Poo r visualization. Definity was used to [...] calculator (one point for each "yes" answer) http://www.mdcalc.com/nvwltxu-tqjyxhy-wdbq-srkra-xoh-xbcapsiaw-risk/ A. Elevated risk surgery?: yes B. Ischemic [...] provider/surgeon Yaritza Venegas MD CARDIOLOGY - PREVENTIVE [address] Mailcode: [id number] [place] [address] in this encounter Plan of Treatment +--------+---------+ + + + | Date | Type | Specialty | Care Team | Description | +--------+---------+ + + + | 09/06/ Office | Pain Management | Ramona Sunshine | | | 2018 | Visit | | W, PhD [address] | | | | | | [place], [place] | | | | | | [address] | | | | | | [phone] | | | | | | | [...] OF | [address] | [place], [place] | | | CARDIOLOGY | [address] | [address] | | + + + + + [...]
--- OUTSIDE RECORDS SUMMARY | ~2018-08-12 | XMS | Clinical Summary ---
Demographics + + + | Address | [address] | | | [place] [address] | + + + | Home Phone | | + + + | Preferred Language | Unknown | + + + | Marital Status | Single | + + + | Restoration Affiliation | Unknown | + + + | Race | Unknown | + + + | Ethnic Group | Unknown | + + + Author + + + | Author | [facility] | | | and [place] | + + + | Organization | [facility] | | [...] Team Providers + +------+ + | Care Editorial Specialist Name | Role | Phone | [...] | Visit | | MD Lars [address] | | | | | | Dagoberto [place] | | | | | | [place] [address] | | | | | | [phone] | | | | | | | [...] | [employer] | MODA | [id number] | Medica | [phone] | | | MEDICAID HMO | HEALTH [...] Self | [birth year] | Home: | [address] | | | al/Fam | | 1971 | [phone] | [place] | | | kevin | | | [phone] | [address] | + +--------+ +--------+ + +
--- OUTSIDE RECORDS SUMMARY | ~2018-08-12 | XMS | Encounter Summary ---
Demographics + + + | Address | [address] | | | [place] [address] | + + + | Home Phone [...] Author + + + | Author | [facility] | + + + | Organization | [facility] | + + + | Address | Unknown | + + + | Phone | Unavailable | + + + Support + + +---------+ + | Name | Relationship | Address | Phone | + + +---------+ + | Jordan Aguirre | ECON | Unknown | Unavailable | + + +---------+ + Care Team Providers + +------+ + | Care Scaffold Builder Name | Role | Phone | + +------+ + | Iqra Peralta MD | PCP | | + +------+ + Encounter Details +--------+ + + + + | Date | Type | Department | Care Team | Description | +--------+ + + + + | 07/22/ | Abstract | Cardiology | Juan Antonio Mclaughlin, | | | 2019 | | Preventive at [facility] | [address] | | | | | [address] | [place] [facility] [place] | | | | | Mailcode: [id number] | [address] | | | | | [facility] | [phone] | | | | | and Healing | | | | | | [place], [place] | | | | | | [address] | | | | | | [phone] | | | +--------+ + + + [...] | | | | | | [place] | | | | | | [address] | | | | | | [phone] | | | | | | | | +--------+---------+ + + + as of this encounter Visit Diagnoses Not on filein this encounter"
--- OUTSIDE RECORDS SUMMARY | ~2018-08-12 | XMS | Encounter Summary ---
Demographics + + + | Address | [address] | | | [place] [address] | + + + | Home Phone | | + + + | Preferred Language | Unknown | + + + | Marital Status | Single | + + + | Gnosticism Affiliation | Unknown | + + + | Race | Unknown | + + + | Ethnic Group | Unknown | + + + Author + + + | Author | [facility] | + + + | Organization | [facility] | + + + | Address | Unknown | + + + | Phone | Unavailable | + + + Support + + +---------+ + | Name | Relationship | Address | Phone | + + +---------+ + | An Carlin | ECON | , [place] | | + + +---------+ + Care Team Providers + +------+ + | Care Boarder Steam Name | Role | Phone | + [...] | | | | | [place] [address] | | | | | | [phone] | | | +--------+ + + + [...] [place] | | | | | | [id number] | | | | | | | | +--------+---------+ + + + as of this encounter Visit Diagnoses Not on filein this encounter"
--- OUTSIDE RECORDS SUMMARY | ~2018-08-12 | XMS | Encounter Summary ---
Demographics + + + | Address | [address] | | | [place] [address] | + + + | Home Phone | | + + + | Preferred Language | Unknown | + + + | Marital Status | Single | + + + | Episcopal Affiliation | Unknown | + + + | Race | Unknown | + + + | Ethnic Group | Unknown | + + + Author + + + | Author | [facility] | + + + | Organization | [facility] | + + + | Address | Unknown | + + + | Phone | Unavailable | + + + Support + + +---------+ + | Name | Relationship | Address | Phone | + + +---------+ + | An Carlin | ECON | , [place] | | + + +---------+ + Care Team Providers + +------+ + | Care Twisting Frame Operator Name | Role | Phone | [...] | | | | | [place] [address] | | | | | | [phone] | | | +--------+ + + + [...] [place] | | | | | | [id number] | | | | | | | [...]
--- OUTSIDE RECORDS SUMMARY | ~2018-08-12 | XMS | Encounter Summary ---
Demographics + + + | Address | [address] | | | [place] [address] | + + + | Home Phone [...] + + + | Author | [facility] | + + + | Organization | [facility] | + + + | Address | Unknown | + + + | Phone | Unavailable | + + + Support + + +---------+ + | Name | Relationship | Address | Phone | + + +---------+ + | Jordan Aguirre | ECON | Unknown | Unavailable | + + +---------+ + Care Team Providers + +------+ + | Care Pneumatic Tube Operator Name | Role | Phone | + +------+ + | Iqra Peralta MD | PCP | | + +------+ + Encounter Details +--------+ + + + + | Date | Type | Department | Care Team | Description | +--------+ + + + + | 08/05/ | MyChart | Pain [facility] at [facility] | Mily Love, | RE: Appt aproval | | 2019 | Encounter | 15th Floor [address] | Kofi Moya, PhD [address] | | | | | [address] | [place] | | | | | Code: [facility] | [place], [place] | | | | | for Health and | [address] | | | | | Healing, 15th Floor | [phone] | | | | | [place], [place] | | | | | | [address] | | | | | | [phone] | | | +--------+ + + + [...] | | | | | | [place] [address] | | | | | | [address] | | | | | | [phone] | | | | | | | | +--------+---------+ + + + as of this encounter Visit Diagnoses Not on filein this encounter"
--- OUTSIDE RECORDS SUMMARY | ~2018-08-12 | XMS | Clinical Summary ---
Demographics + + + | Address | [address] | | | [place] [address] | + + + | Home Phone | | + + + | Preferred Language | Unknown | + + + | Marital Status | Single | + + + | Yazidism Affiliation | Unknown | + + + | Race | Unknown | + + + | Ethnic Group | Unknown | + + + Author + + + | Author | [facility] | + + + | Organization | [facility] | + + + | Address | Unknown | + + + | Phone | Unavailable | + + + Support + + +---------+ + | Name | Relationship | Address | Phone | + + +---------+ + | An Carlin | ECON | , [place] | | + + +---------+ + Care Team Providers + +------+ + | Care High School Physical Education Teacher Name | Role | Phone | [...] (COZAAR) | Take 1 tablet by | 30 | 11 | 11/1 | 03/0 | Disco | | 25 MG tablet | mouth daily. | tablet | | 2/20 | 4/20 | ntinu | | | | | | 18 | 19 | ed | + + + +---------+------+------+-------+ [...] + + | 08/02/ | Telephone | | Héctor, | | | 2019 | | | YULY Howard | | +--------+ + + + + | 07/23/ | Documentati | Dianelys Taveras Only (07/22/18) | | 2018 | on Only | | YULY Howard | | +--------+ + + + + | 07/23/ | Orders Only | | Dianelys Anaya | | 2018 | | | YULY Howard | proteinuria; | | | | | | Essential (primary) | | | | | | hypertension; | | | | | | Urinary incontinence | | | | | | with continuous | | | | | | leakage | +--------+ + + + + | 07/20/ | Documentati | | Héctor | Mallory (US | | 2018 | on Only | | YULY Howard | Retroperitoneal | | | | | | 04/27/2018) | +--------+ + + + + | 07/20/ | Telephone | | Héctor, | | | 2018 | | | YULY Howard | | +--------+ + + + + | 07/16/ | Telephone | | Héctor, | | | 2018 | | | [...] | | | | | | [address] [place], [place] | | | | | | [address] | | | | | | | [...] 03/16/2017, 02/19/2017, | | | (#1) | 8 | [...] + + + + + | Specific [place], UA | 1.035 (A) | 1.005 - [...] +------+-------+ + | MEDICAID | EASTER | [id number] | | | [address] | | | N | | | | [place] | | | [place] | | | | [address] | | | FEEDER LOADER | | | | | + +--------+ [...] | Self | [birth year] | Home: | [address] [place] [address] | | | al/Fam | | 1971 | [phone] | [place] | | | kevin | | | [phone] | [address] | + +--------+ +--------+ + +
--- OUTSIDE RECORDS SUMMARY | ~2018-08-12 | XMS | Encounter Summary ---
Demographics + + + | Address | [address] | | | [place] [address] | + + + | Home Phone [...] + + + | Author | [facility] | + + + | Organization | [facility] | + + + | Address | Unknown | + + + | Phone | Unavailable | + + + Support + + +---------+ + | Name | Relationship | Address | Phone | + + +---------+ + | Jordan Aguirre | ECON | Unknown | Unavailable | + + +---------+ + Care Team Providers + +------+ + | Care Radiological Defense Officer Name | Role | Phone | + +------+ + | Iqra Peralta MD | PCP | | + +------+ + Encounter Details +--------+ + + + + | Date | Type | Department | Care Team | Description | +--------+ + + + + | 07/09/ | Telephone | Digestive Health | Yaritza Venegas, | | | 2019 | | Center at [facility] 6th | MD [address] | | | | | Floor [address] | [place], [place] | | | | | [place] Mailcode: CH4 | [address] | | | | | [facility] | [phone] | | | | | and Leandro, 6th | | | | | | floor [place], [place] | | | | | | [address] | | | | | | | [...] | | | | | | [place], [place] | | | | | | [address] | | | | | | [phone] | | | | | | | | +--------+---------+ + + + as of this encounter Results VITAMIN D, 25-HYDROXY, SERUM (07/09/2018 4:20 PM) + +-------+ + + | Component | Value | Ref Range | Performed At | + +-------+ + + | VITAMIN D 25 HYDROXY | 71.4 | 30 - 80 ng/mL | [facility] | | | | | SERVICES, [...] LABORATORY | [address] | [place] [address] | | | SERVICES, CORE | [address]ARK [...] | + + + + + | [facility] | [address] | [place] [address] | | | SERVICES, MIR | NANCY [...] | | | | | determined by [employer] | | | | | Cashback Chintai. See | | | | | Compliance Statement B: | | | | | Gydget/CSPerformed | | | | | by Anytime DD,500 | | | | | [facility] | | | | | [address] | | | | | [phone].[facility]. | | | | | com, Iker [...] [facility] | [address] | [place], [place] | | | UNIV PTH - INTFC | | [address] | | + + + + + PTH, SERUM (07/09/2018 4:20 PM) + +-------+ + + | Component | Value | Ref Range | Performed At | + +-------+ + + | PTH, SERUM | 74 | 18 - 88 pg/mL | [facility] | | | | | SERVICES, CORE | + +-------+ + + + + | Specimen | + + | Blood - Blood | + + + + + + + | Performing | Address | City/State/Zipcode | Phone Number | | Organization | | | | + + + + + | [facility] | [address] | [place] [address] | | | SERVICES, CORE | NANCY [...] | | | | | determined by [facility] | | | | | Laboratories. See | | | | | Compliance Statement B: | | | | | Gudoglab.com/CSPerformed | | | | | by [employer] Cashback Chintai,500 | | | | | Trey Vallecillo [facility] [place] | | | | | [address] | | | | | [phone].[employer]. | | | | | com, Iker [...] [facility] | [address] | [place], [place] | | | UNIV PTH - INTFC | | [address] | | + + + + + [...] | + + + + + | [facility] | [address] | [place] [address] | | | SERVICES, CORE | NANCY [...] LABORATORY | [address] | [place] [address] | | | SERVICES, SPECIAL | [address] | | | | IMM + COAG | | | | + + + + + FERRITIN (07/09/2018 4:20 PM) + + + + + | Component | Value | Ref Range | Performed At | + + + + + | FERRITIN | 51Comment: Male and | 50 - 200 ng/mL | [facility] | | | Female >18 years: [...] | + + + + + | [facility] | [address] | [place] [address] | | | SERVICES, CORE | NANCY [...] >60 mL/min | [facility] | | LIBERIAN | | | SERVICES, CORE | + +---------+ + + | EGFR NON | >60 | >60 mL/min | [facility] | | -LIBERIAN | | | SERVICES, CORE | + [...] | | PLASMA (LAB) | | | [facility], CORE | + +---------+ + + [...] the MDRD equation recommended by the | RISU | | National Kidney Disease Education Program. [...] | + + + + + | [facility] | [address] | [place] [address] | | | SERVICES, CORE | [address] [...]
--- OUTSIDE RECORDS SUMMARY | ~2018-08-12 | XMS | Clinical Summary ---
Demographics + + + | Address | [address] | | | [place] [address] | + + + | Home Phone | | + + + | Preferred Language | Unknown | + + + | Marital Status | Single | + + + | Restorationist Affiliation | Unknown | + + + | Race | Unknown | + + + | Ethnic Group | Unknown | + + + Author + + + | Author | [email or web address] | + + + | Organization | [facility] | + + + | Address | Unknown | + + + | Phone | Unavailable | + + + Support + + +---------+ + | Name | Relationship | Address | Phone | + + +---------+ + | An Carlin | ECON | , [place] | | + + +---------+ + Care Team Providers + +------+ + | Care Parachute Line Tier Name | Role | Phone | [...] | | | | | | [address] [place], [place] | | | | | | [address] | | | | | | | [...] + + + + + | Specific [place], UA | 1.035 (A) | 1.005 - [...] +------+-------+ + | MEDICAID | EASTER | [id number] | | | [address] | | | N | | | | [place] | | | [place] | | | | [address] | | | PASTORAL WORKER | | | | | + +--------+ [...] | Self | [birth year] | Home: | [address] [place] [address] | | | al/Fam | | 1971 | [phone] | [place] | | | kevin | | | [phone] | [address] | + +--------+ +--------+ + +
--- OUTSIDE RECORDS SUMMARY | ~2018-08-12 | XMS | Encounter Summary ---
Demographics + + + | Address | [address] | | | [place] [address] | + + + | Home Phone [...] Author + + + | Author | [facility] | + + + | Organization | [facility] | + + + | Address | Unknown | + + + | Phone | Unavailable | + + + Support + + +---------+ + | Name | Relationship | Address | Phone | + + +---------+ + | Jordan Aguirre | ECON | Unknown | Unavailable | + + +---------+ + Care Team Providers + +------+ + | Care Nursing Assoc Name | Role | Phone | + [...] | 2019 | Encounter | Center at [facility] 6th | [address] | | | | | Floor [address] | [place], | | | | | [place] Mailcode: | [place] [address] | | | | | [facility] | | | | | | Health and Healing | | | | | | [place], [place] | | | | | | [address] | | | | | | [phone] | | | +--------+ + + + [...] [place] | | | | | | [address] | | | | | | [phone] | | | | | | | | +--------+---------+ + + + as of this encounter Visit Diagnoses Not on filein this encounter"
--- OUTSIDE RECORDS SUMMARY | ~2018-08-12 | XMS | Encounter Summary ---
Demographics + + + | Address | [address] | | | [place] [address] | + + + | Home Phone [...] Author + + + | Author | [facility] | + + + | Organization | [facility] | + + + | Address | Unknown | + + + | Phone | Unavailable | + + + Support + + +---------+ + | Name | Relationship | Address | Phone | + + +---------+ + | Jordan Aguirre | ECON | Unknown | Unavailable | + + +---------+ + Care Team Providers + +------+ + | Care Cork Insulation Installer Name | Role | Phone | + +------+ + | Iqra Peralta MD | PCP | | + +------+ + Encounter Details +--------+ + + + + | Date | Type | Department | Care Team | Description | +--------+ + + + + | 07/20/ | Sheet Metal Worker | Cardiology in | Kath Boyle | | | 2019 | | [facility] | JULIETA [address] | | | | | [place] at | [address] [place], | | | | | [place] [address] | [place] [address] | | | | | [address] | [phone] | | | | | [place], [place] | | | | | | [address] | | | | | | [phone] | | | +--------+ + + + [...] [place] | | | | | | [address] | | | | | | [phone] | | | | | | | | +--------+---------+ + + + as of this encounter Visit Diagnoses Not on filein this encounter"
--- OUTSIDE RECORDS SUMMARY | ~2018-08-12 | XMS | Encounter Summary ---
Demographics + + + | Address | [address] | | | [place] [address] | + + + | Home Phone | | + + + | Preferred Language | Unknown | + + + | Marital Status | Single | + + + | Protestant Affiliation | NON | + + + | Race | White | + + + | Ethnic Group | Not or | + + + Author + + + | Author | [facility] | + + + | Organization | [facility] | + + + | Address | Unknown | + + + | Phone | Unavailable | + + + Support + + +---------+ + | Name | Relationship | Address | Phone | + + +---------+ + | Jordan Aguirre | ECON | Unknown | Unavailable | + + +---------+ + Care Team Providers + +------+ + | Care Senior Media Buyer Name | Role | Phone | [...] | | | | | | | [facility] | | | | | | | for Health | | | | | | | and Healing | | | | | | | [place], [place] | | | | | | | [address] | | | | | | | Phone: | | | | | | | [phone] | | | | | | | Fax: | | | | | | | [phone] | + +--------+ + + + + Encounter Details +--------+---------+ + + + | Date | Type | Department | Care Team | Description | +--------+---------+ + + + | 07/09/ | Office | Digestive Health | [address] | Morbid obesity with | | 2019 | Visit | Center at [facility] 6th | [address] | BMI of 60.0-69.9, | | | | Floor [address] | [place], | adult (HCC) (Primary | | | | Ave Mailcode: | [place] [address] | Dx); S/P | | | | [facility] | | laparoscopic sleeve | | | | Health and Healing | | gastrectomy; | | | | [place], [place] | | Diabetes mellitus | | | | [address] | | type 2, | | | | [phone] | | diet-controlled | | | | [...] referred by: DO Jamie Tay S Jessy [place] [address] Documented time of visit: 1:04 to 1:29 (25 minutes [id number]-[id number] with patient) Surgery: Sleeve Gastrectomy Date of [...] echo and chest xray findings. Followed by dental chair assembler in [place]. Shortness of breath Thyroid disease Food logs: no Food choices: B: Bahraini yogurt (Oikos) and a cup of coffee with Splenda L: Goes to [employer] ([employer]) & has lunch at the [employer] - "whatever they have to off er" [...] - will need to follow up via Iper[facility]art with dates and instructions Continue to increase physical activity. Follow up as needed. Margot Contreras RD, [facility], LD [facility] Bariatrics [phone] in this encounter Plan of Treatment +--------+---------+ + + + | Date | Type | Specialty | Care Team | Description | +--------+---------+ + + + | 09/06/ | Office | Pain Management | Ramona Sunshine | | | 2019 | Visit | | Ross, PhD [address] | | | | | | [place], [place] | | | | | | [address] | | | | | | [phone] | | | | | | | | +--------+---------+ + + + as of this encounter Procedures + +--------+ + + + | Procedure Name | Priori | Date/Time | Associated Diagnosis | Comments | | | ty | | | | + +--------+ + + + | [place] MNT RE-ASSESSMNT | Routin | 07/09/2018 | Morbid obesity | | | X15MIN | e | 3:26 PM | with BMI of | | | | | PST | 60.0-69.9, adult | | | | | | ([facility]) S/P | | | | | | laparoscopic sleeve | | | | | | gastrectomy | | | | | | Diabetes mellitus | | | | | | type 2, | | | | | | diet-controlled | | | | | | ([facility]) | | + +--------+ + + + in this encounter Visit Diagnoses + + | Diagnosis | + + | Morbid obesity with BMI of 60.0-69.9, adult (HCC) - Primary | + + | S/P laparoscopic sleeve gastrectomy | + + | Diabetes mellitus type 2, diet-controlled ([facility]) | + + | Type II or unspecified type diabetes mellitus without mention of complication, not | | stated as uncontrolled | + +
--- OUTSIDE RECORDS SUMMARY | ~2018-08-12 | XMS | Clinical Summary ---
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 | | Kath Boyle | | [...] diet-controlled | | | | | | ([facility]) | +--------+ + + + [...] adult | | | | | | ([facility]); Diabetes | | | | | | mellitus type 2, | | | | | | diet-controlled | | | | | | ([facility]) | +--------+ + + + [...] | Heart Disease | Father | | [place] 76 | + + +------+ + | [...] | | | | | | [place], [place] | | | | | | [address] | | | | | | [phone] | | | | | | | [...] | | | | | | | /[id number] | | | | | | | | 329 | + +------+--------+ +--------+--------+--------+ | Dion GaticaardImplanted: Qty: | | N/A: | | | 08/29/ | [id number] | | 2 on 02/07/2015 by Dianelys Reed | | | 2017 | [id number] / | | Dori Ferris MD | | n | | | | | | | | | | | | /[id number] | | | | | | | [...] adult | | | | | | ([facility]) S/P | | | | | | laparoscopic sleeve | | | | | | gastrectomy | | | | | | Diabetes mellitus | | | | | | type 2, | | | | | | diet-controlled | | | | | | ([facility]) | | + +--------+ + [...] | 3.50 - 10.80 K/cu mm | [facility] | | | | | SERVICES, CORE | + + + + + | RED CELL COUNT | 4.85 | 4.00 - 5.20 M/cu mm | [facility] | | | | | SERVICES, CORE | + + + + + | HEMOGLOBIN | 15.1 | 12.0 - 16.0 g/dL | [facility] | | | | | SERVICES, CORE | + + + + + | HEMATOCRIT | 47.8 (H) | 36.0 - 46.0 % | [facility] | | | | | SERVICES, CORE | + + + + + | MCV | 98.6 | 80.0 - 100.0 fL | [facility] | | | | | SERVICES, CORE | + + + + + | MCHC | 31.6 (L) | 32.0 - 36.0 g/dL | [facility] | | | | | SERVICES, CORE | + + + + + | RDW SD | 53.1 (H) | 35.1 - 46.3 fL | [facility] | | | | | SERVICES, CORE | + + + + + | PLATELET COUNT | 407 (H) | 150 - 400 K/cu mm | [facility] | | | | | SERVICES, CORE | + + + + + | MPV | 10.2 | 9.7 - 12.3 fL | [facility] | | | | | SERVICES, CORE | + + + + + | NRBC% | 0.0 | 0.0 - 0.3 % | [facility] | | | | | SERVICES, CORE | + + + + + | NRBC# | 0.00 | 0.00 - 0.02 K/cu mm | [facility] | | | | | MIR [place]APIN | + + + + + + + | Specimen | + + | Blood - Blood | + + + + + + + | Performing | Address | City/State/Zipcode | Phone Number | | Organization | | | | + + + + + | [facility] | [address] | [place] [address] | | | M[place] | [address] | | | + + + + + VITAMIN B1, WHOLE BLOOD (07/09/2018 4:20 PM) + + + + + | Component | Value | Ref Range | Performed At | + + + + + | VITAMIN B1, WHOLE | 142Comment: INTERPRETIVE | 70 - 180 nmol/L | [facility] | | BLOOD | INFORMATION: Vitamin [...] | | | | | determined by [facility] | | | | | Laboratories. See | | | | | Compliance Statement B: | | | | | Quality Practice/CSPerformed | | | | | by Hublished,[address] | | | | | Trey Vallecillo, [facility] [place] | | | | | [address] | | | | | [phone].Waddle. | | | | | CasaRoma, Iker Angelo MD, | | | | [...] [facility] | [address] | [place], [place] | | | UN[place] [facility] [place] | | [address] | | + + + + + [...] | + + + + + | [facility] | [address] | [place] [address] | | | SERVICES, CORE | [address]Y [...] LABORATORY | [address] | [place] [address] | | | SERVICES, SPECIAL | PARK [...] >60 mL/min | [facility] | | [place]AN | | | SERVICES, CORE | + +---------+ + + | EGFR NON | >60 | >60 mL/min | [facility] | | -[place] | | | SERVICES, CORE | + [...] POTASSIUM CMNT | No Hemo | | [facility] | | | | | SERVICES, CORE | + +---------+ + + | ABDI Shannon CMNT | No Hemo | | [facility] | | | | | SERVICES, CORE | + +---------+ + + | AST CMNT | No Hemo | | [facility] | | | | | SERVICES, [...] | + + + + + | [facility] | [address] | [place] [address] | | | SERVICES, CORE | PARK [...] Statement B: | | | | | Waddle.CasaRoma/CSPerformed | | | | | by [address]ublished,[address] | | | | | Trey Vallecillo, [facility] [place] | | | | | [address] | | | | | [phone].Waddle. | | | | | CasaRoma, Iker Angelo MD, | | | | [...] [facility] | [address] | [place], [place] | | | [place] [facility] [place] | | [address] | | + + + + + FERRITIN (07/09/2018 4:20 PM) + + + + + | Component | Value | Ref Range | Performed At | + + + + + | FERRITIN | 53Comment: Male and | 50 - 200 ng/mL | [facility] | | | Female >18 [...] | + + + + + | [facility] | [address] | [place] [address] | | | SERVICES, CORE | NANCY [...] LABORATORY | [address] | [place] [address] | | | TAVARES, MIR | [address]ANCY [...] LABORATORY | [address] | [place] [address] | | | SERVICES, [facility] | [address] | | | + + + + + HEMOGLOBIN A1C, BLOOD (07/09/2018 4:20 PM) + + + + + | Component | Value | Ref Range | Performed At | + + + + + | HEMOGLOBIN A1C | 6.2 (H)Comment: Hgb A1C | <5.7 % | [facility] | | | Interpretive | [...] | [facility] | | considered for monitoring long line teamster glycemic control in patients with: | LABORATORY [...] | [address] | [place] [address] | | | SERVICES, SPECIAL | NANCY [...] LABORATORY | [address] | [place] [address] | | | SERVICES, MIR | PARK [...] OF | [address] | [place], [place] | | | CARDIOLOGY | [address] | [address] | | + + + + + from Last 3 Months Insurance + +--------+ +--------+-------+---------+ | Payer | Benefi | Subscriber | Type | Phone | Address | | | t Plan | ID | | | | | | / | | | | | | | Group | | | | | + +--------+ +--------+-------+---------+ | PARTS ROOM ASSISTANT MEDICAID | PARTS ROOM ASSISTANT | xxxxxxxx | Medica | | | [...] | 1970 | +- | [place] [address] | | | kevin | | | [address] | | + +--------+ +--------+ + + | DEANN JOSÉ SURAJ | Behavi | Self | [birth year] | Home: | 8th | | | oral | | 1970 | +- | [place] [address] | | | Health | | | 5364 | | + +--------+ +--------+ + +
--- OUTSIDE RECORDS SUMMARY | ~2018-08-12 | XMS | Encounter Summary ---
Demographics + + + | Address | [address] | | | [place] [address] | + + + | Home Phone [...] + + + | Author | [facility] | + + + | Organization | [facility] | + + + | Address | Unknown | + + + | Phone | Unavailable | + + + Support + + +---------+ + | Name | Relationship | Address | Phone | + + +---------+ + | Jordan Aguirre | ECON | Unknown | Unavailable | + + +---------+ + Care Team Providers + +------+ + | Care Sales Support Rep Name | Role | Phone | + [...] | | [facility] | JULIETA Jimé[address] | | | | | [place] at | Aryan Bacon [place], | | | | | [place] [address] | [place] [address] | | | | | [address] | [phone] | | | | | [place], [place] | | | | | | [address] | | | | | | [phone] | | | +--------+ + + + [...] [place] | | | | | | [address] | | | | | | [phone] | | | | | | | | +--------+---------+ + + + as of this encounter Visit Diagnoses Not on filein this encounter"
--- OUTSIDE RECORDS SUMMARY | ~2018-08-12 | XMS | Encounter Summary ---
Demographics + + + | Address | [address] | | | [place] [address] | + + + | Home Phone | | + + + | Preferred Language | Unknown | + + + | Marital Status | Single | + + + | Adventist Affiliation | Unknown | + + + | Race | Unknown | + + + | Ethnic Group | Unknown | + + + Author + + + | Author | [facility] | + + + | Organization | [facility] | + + + | Address | Unknown | + + + | Phone | Unavailable | + + + Support + + +---------+ + | Name | Relationship | Address | Phone | + + +---------+ + | An Carlin | ECON | , [place] | | + + +---------+ + Care Team Providers + +------+ + | Care Fiberglass Fabricator Name | Role | Phone | + [...] | | | | | [place] [address] | | | | | | [phone] | | | +--------+ + + + [...] [place] | | | | | | [id number] | | | | | | | [...]
--- OUTSIDE RECORDS SUMMARY | ~2018-08-12 | XMS | Encounter Summary ---
Demographics + + + | Address | [address] | | | [place] [address] | + + + | Home Phone | | + + + | Preferred Language | Unknown | + + + | Marital Status | Single | + + + | Evangelical Affiliation | Unknown | + + + | Race | Unknown | + + + | Ethnic Group | Unknown | + + + Author + + + | Author | [facility] | + + + | Organization | [facility] | + + + | Address | Unknown | + + + | Phone | Unavailable | + + + Support + + +---------+ + | Name | Relationship | Address | Phone | + + +---------+ + | An Carlin | ECON | , [place] | | + + +---------+ + Care Team Providers + +------+ + | Care Spray I Painter Name | Role | Phone | + [...] | | | | | [place] [address] | | | | | | [phone] | | | +--------+ + + + [...] [place] | | | | | | [id number] | | | | | | | [...] + + + + + | Specific [place], UA | 1.035 (A) | 1.005 - [...]
--- OUTSIDE RECORDS SUMMARY | ~2018-08-12 | XMS | Encounter Summary ---
Demographics + + + | Address | [address] | | | [place] [address] | + + + | Home Phone | | + + + | Preferred Language | Unknown | + + + | Marital Status | Single | + + + | Pentecostal Affiliation | NON | + + + [...] Providers + +------+ + | Care It Corporate Recruiter Name | Role | Phone | + [...] Leon | | | | | | [facility] | | | | | | [place], [place] | | | | | | [address] | | | +--------+ + + + [...] | | | | | | [place], [place] | | | | | | [address] | | | | | | [phone] | | | | | | | | +--------+---------+ + + + as of this encounter Visit Diagnoses Not on filein this encounter"
--- OUTSIDE RECORDS SUMMARY | ~2018-08-12 | XMS | Encounter Summary ---
Demographics + + + | Address | [address] | | | [place] [address] | + + + | Home Phone | | + + + | Preferred Language | Unknown | + + + | Marital Status | Single | + + + | Gnosticism Affiliation | Unknown | + + + | Race | Unknown | + + + | Ethnic Group | Unknown | + + + Author + + + | Author | [facility] | + + + | Organization | [facility] | + + + | Address | Unknown | + + + | Phone | Unavailable | + + + Support + + +---------+ + | Name | Relationship | Address | Phone | + + +---------+ + | An Carlin | ECON | , [place] | | + + +---------+ + Care Team Providers + +------+ + | Care Reach Truck Operator Name | Role | Phone | + +------+ + | Iqra Peralta MD | PCP | | + +------+ + Encounter Details +--------+---------+ + + + | Date | Type | Department | Care Team | Description | +--------+---------+ + + + | 08/02/ | Office | [facility] | Ricardo Mijares MD | Essential (primary) | | 2019 | Visit | [place] [address] | [address] | hypertension | | | | [address] | [address] [place], [place] | (Primary Dx); | | | | [place] [address] | [id number] | Nephrotic range | | | | [phone] | | proteinuria; Morbid | | | [...] have a BMP, CBC, urinalysis, Urine total hokfpjg-ds-xngfvlntmf ratio before she comes back in 3 [...] 80 (A) 10/21/2017 LABPROT 3,723.4 (A) 07/22/2018 [id number] 01/20/2018 Assessment: Ms. Darden is a [...] have a BMP, CBC, urinalysis, Urine total wunbchv-da-ozqaiwdoit ratio before she comes back in 3 months. 15 minutes of this 25-minute visit was spent in education and counseling. Thank you Dr Peralta for the opportunity to see this patient in F/U today. Please do not hesi renee to call me at any time with questions or concerns. Truly yours, Ricardo Mijares MD [facility] in this encounter Plan of Treatment +--------+---------+ + + + | Date | Type | Specialty | Care Team | Description | +--------+---------+ + + + | 11/08/ | Office | Nephrology | Ricardo Mijares MD | | | 2019 | Visit | | [address] | | | | | | [address] [facility] [address] | | | | | | [address] | | | | | | | [...]
--- OUTSIDE RECORDS SUMMARY | ~2018-08-12 | XMS | Encounter Summary ---
Demographics + + + | Address | [address] | | | [place] [address] | + + + | Home Phone | | + + + | Preferred Language | Unknown | + + + | Marital Status | Single | + + + | Yazidi Affiliation | Unknown | + + + | Race | Unknown | + + + | Ethnic Group | Unknown | + + + Author + + + | Author | [facility] | + + + | Organization | [facility] | + + + | Address | Unknown | + + + | Phone | Unavailable | + + + Support + + +---------+ + | Name | Relationship | Address | Phone | + + +---------+ + | An Carlin | ECON | , [place] | | + + +---------+ + Care Team Providers + +------+ + | Care Mold Setter Name | Role | Phone | + [...] | | 2019 | on Only | [place] [address] | [address] | Retroperitoneal | | | | [address] | | 04/27/2018) | | | | [place] [address] | | | | | | [phone] | | | +--------+ + + + [...] | | | | | | [address] | | | | | | [address] | | | | | | | | +--------+---------+ + + + as of this encounter Visit Diagnoses Not on filein this encounter"
--- OUTSIDE RECORDS SUMMARY | ~2018-08-12 | XMS | Clinical Summary ---
Demographics + + + | Address | [address] | | | [place] [address] | + + + | Home Phone [...] Team Providers + +------+ + | Care Oven Tender Name | Role | Phone | [...] | Visit | | MD Lars [address] | | | | | | [place] | | | | | | [place] [address] | | | | | | [phone] | | | | | | | [...] | [employer] | MODA | [id number] | Medica | [phone] | | | MEDICAID HMO | HEALTH [...] Self | [birth year] | Home: | [address] | | | al/Fam | | 1971 | [phone] | [place] | | | kevin | | | [phone] | [address] | + +--------+ +--------+ + +
--- OUTSIDE RECORDS SUMMARY | ~2018-08-12 | XMS | Encounter Summary ---
Demographics + + + | Address | [address] | | | [place] [address] | + + + | Home Phone | | + + + | Preferred Language | Unknown | + + + | Marital Status | Single | + + + | Confucianist Affiliation | NON | + + + | Race | White | + + + | Ethnic Group | Not or | + + + Author + + + | Author | [facility] | + + + | Organization | [facility] | + + + | Address | Unknown | + + + | Phone | Unavailable | + + + Support + + +---------+ + | Name | Relationship | Address | Phone | + + +---------+ + | Jordan Aguirre | ECON | Unknown | Unavailable | + + +---------+ + Care Team Providers + +------+ + | Care Clinical Rehab Specialist Name | Role | Phone | + +------+ + | Iqra Peralta MD | PCP | | + +------+ + Encounter Details +--------+ + + + + | Date | Type | Department | Care Team | Description | +--------+ + + + + | 08/05/ | MyChart | [facility] | Mily Love, | RE: Appt aproval | | 2019 | Encounter | 15[address] | Kofi Moya, PhD [address] | | | | | [address] | [address] | | | | | Code: [facility] | [place], [place] | | | | | for Health and | [address] | | | | | Healing, 15th Floor | [phone] | | | | | [place], [place] | | | | | | [address] | | | | | | [phone] | | | +--------+ + + + [...] | | | | | | [place] | | | | | | [address] | | | | | | [phone] | | | | | | | | +--------+---------+ + + + as of this encounter Visit Diagnoses Not on filein this encounter"
--- OUTSIDE RECORDS SUMMARY | ~2018-08-12 | XMS | Encounter Summary ---
Demographics + + + | Address | [address] | | | [place] [address] | + + + | Home Phone | | + + + | Preferred Language | Unknown | + + + | Marital Status | Single | + + + | Yazidi Affiliation | NON | + + + | Race | White | + + + | Ethnic Group | Not or | + + + Author + + + | Author | [facility] | + + + | Organization | [facility] | + + + | Address | Unknown | + + + | Phone | Unavailable | + + + Support + + +---------+ + | Name | Relationship | Address | Phone | + + +---------+ + | Jordan Aguirre | ECON | Unknown | Unavailable | + + +---------+ + Care Team Providers + +------+ + | Care Music Cataloguer Name | Role | Phone | + [...] | | | | | | | [facility] | | | | | | | for Health | | | | | | | and Healing | | | | | | | [place], [place] | | | | | | | [address] | | | | | | | Phone: | | | | | | | [phone] | | | | | | | Fax: | | | | | | | [phone] | + +--------+ + + + + Encounter Details +--------+---------+ + + + | Date | Type | Department | Care Team | Description | +--------+---------+ + + + | 07/09/ | Office | Digestive Health | [address] | Morbid obesity with | | 2019 | Visit | Center at [facility] 6th | [address] | BMI of 60.0-69.9, | | | | Floor [address] | Jana LEA, | adult (HCC) (Primary | | | | Ave Mailcode: | [place] [address] | Dx); S/P | | | | [id number] | | laparoscopic sleeve | | | | Health and Healing | | gastrectomy; | | | | [place], [place] | | Diabetes mellitus | | | | [address] | | type 2, | | | | [phone] | | diet-controlled | | | | [...] by: DO Jamie Tay S Jessy [place] [address] Documented time of visit: 1:04 to 1:29 (25 minutes cpwv-xy-hmsh with patient) Surgery: Sleeve Gastrectomy Date of [...] echo and chest xray findings. Followed by home care rn in [place]. Shortness of breath Thyroid disease Food logs: no Food choices: B: Paraguayan yogurt (Oikos) and a cup of coffee with Splenda L: Goes to [employer] ([employer]) & has lunch at the [facility] - "whatever they have to off er" [...] - will need to follow up via [email or web address] with dates and instructions Continue to increase physical activity. Follow up as needed. Margot Cont[address] RD, [facility], [facility] Bariatrics [phone] in this encounter Plan of Treatment +--------+---------+ + + + | Date | Type | Specialty | Care Team | Description | +--------+---------+ + + + | 09/06/ | Office | Pain Management | Ramona Sunshine | | | 2019 | Visit | | Ross, PhD [address] | | | | | | [place], [place] | | | | | | [address] | | | | | | [phone] | | | | | | | [...] | | ([facility]) S/P | | | | | | laparoscopic sleeve | | | | | | gastrectomy | | | | | | Diabetes mellitus | | | | | | type 2, | | | | | | diet-controlled | | | | | | ([facility]) | | + +--------+ + + + in this encounter Visit Diagnoses + + | Diagnosis | + + | Morbid obesity with BMI of 60.0-69.9, adult (HCC) - Primary | + + | S/P laparoscopic sleeve gastrectomy | + + | Diabetes mellitus type 2, diet-controlled ([facility]) | + + | Type II or unspecified type diabetes mellitus without mention of complication, not | | stated as uncontrolled | + +
--- OUTSIDE RECORDS SUMMARY | ~2018-08-12 | XMS | Encounter Summary ---
Demographics + + + | Address | [address] | | | [place] [address] | + + + | Home Phone | | + + + | Preferred Language | Unknown | + + + | Marital Status | Single | + + + | Yazidism Affiliation | NON | + + + [...] Providers + +------+ + | Care Parking Manager Name | Role | Phone | [...] 2019 | | [facility] | [facility] [address] | | | | | [place] at | [address] [place], | | | | | [place] [address] | [place] [address] | | | | | [address] | [phone] | | | | | [place], [place] | | | | | | [address] | | | | | | [phone] | | | +--------+ + + + [...] | | | | | | [place], [place] | | | | | | [address] | | | | | | [phone] | | | | | | | | +--------+---------+ + + + as of this encounter Visit Diagnoses Not on filein this encounter"
--- OUTSIDE RECORDS SUMMARY | ~2018-08-12 | XMS | Clinical Summary ---
Demographics + + + | Address | [address] | | | [place] [address] | + + + | Home Phone [...] Team Providers + +------+ + | Care Moving Picture Producer Name | Role | Phone | + +------+ + | Iqra Peralta MD | PP | | + +------+ + Source Comments SHERIE is fully live on both [facility] and [facility] Allergies + + + + [...] obesity with BMI of 60.0-69.9, adult ([facility]) | 02/25/2016 | + + + + [...] + + + + | 07/20/ | [employer] | | Kath Boyle | | | [...] | | | | | | ([facility]) | +--------+ + + + + [...] | | | | | | ([facility]); Diabetes | | | | | | mellitus type 2, | | | | | | diet-controlled | | | | | | ([facility]) | +--------+ + + + + [...] | | | | | | [place], [place] | | | | | | [address] | | | | | | [phone] | | | | | | | [...] | | | | | | | /[address] | | | | | | | | 329 | + +------+--------+ +--------+--------+--------+ | Dion GaticaardImplanted: Qty: | | N/A: | | | 08/29/ | [id number] | | 2 on 02/07/2015 by Dianelys Reed | | | 2017 | [id number] / | | Dori Ferris MD | | n | | | | | | | | | | | | /[id number] | | | | | | | [...] | + +--------+ + + + | [place] MNT RE-ASSESSMNT | Routin | 07/09/2018 | Morbid obesity | | | X15MIN | e | 3:26 PM | with BMI of | | | | | PST | 60.0-69.9, adult | | | | | | ([facility]) S/P | | | | | | laparoscopic sleeve | | | | | | gastrectomy | | | | | | Diabetes mellitus | | | | | | type 2, | | | | | | diet-controlled | | | | | | ([facility]) | | + +--------+ + + [...] | 3.50 - 10.80 K/cu mm | [facility] | | | | | SERVICES, CORE | + + + + + | RED CELL COUNT | 4.85 | 4.00 - 5.20 M/cu mm | [facility] | | | | | SERVICES, CORE | + + + + + | HEMOGLOBIN | 15.1 | 12.0 - 16.0 g/dL | [facility] | | | | | SERVICES, CORE | + + + + + | HEMATOCRIT | 47.8 (H) | 36.0 - 46.0 % | [facility] | | | | | SERVICES, CORE | + + + + + | MCV | 98.6 | 80.0 - 100.0 fL | [facility] | | | | | SERVICES, CORE | + + + + + | MCHC | 31.6 (L) | 32.0 - 36.0 g/dL | [facility] | | | | | SERVICES, CORE | + + + + + | RDW SD | 53.1 (H) | 35.1 - 46.3 fL | [facility] | | | | | SERVICES, CORE | + + + + + | PLATELET COUNT | 407 (H) | 150 - 400 K/cu mm | [facility] | | | | | SERVICES, CORE | + + + + + | MPV | 10.2 | 9.7 - 12.3 fL | [facility] | | | | | SERVICES, CORE | + + + + + | NRBC% | 0.0 | 0.0 - 0.3 % | [facility] | | | | | SERVICES, CORE | + + + + + | NRBC# | 0.00 | 0.00 - 0.02 K/cu mm | [facility] | | | | | MIR [place]APIN | + + + + + + + | Specimen | + + | Blood - Blood | + + + + + + + | Performing | Address | City/State/Zipcode | Phone Number | | Organization | | | | + + + + + | [facility] | [address] | [place] [address] | | | M[place]AP[place] | [address] | | | + + + + + VITAMIN B1, WHOLE BLOOD (07/09/2018 4:20 PM) + + + + + | Component | Value | Ref Range | Performed At | + + + + + | VITAMIN B1, WHOLE | 142Comment: INTERPRETIVE | 70 - 180 nmol/L | [facility] | | BLOOD | INFORMATION: [...] | | | | | determined by [facility] | | | | | Laboratories. See | | | | | Compliance Statement B: | | | | | RUSBASE/CSPerformed | | | | | by PollVault[employer],[address] | | | | | Trey Vallecillo, [facility],[place] | | | | | [address] | | | | | [phone].[employer]. | | | | | Kuldat, Iker Angelo MD, | | | | [...] [facility] | [address] | [place], [place] | | | UN[facility] | | [address] | | + + + + + [...] HOSPITAL | [address] | [place] [address] | | | SERVICES, CORE | NANCY [...] LABORATORY | [address] | [place] [address] | | | SERVICES, SPECIAL | PARK [...] >60 mL/min | [facility] | | ANGUILLAN | | | SERVICES, CORE | + +---------+ + + | EGFR NON | >60 | >60 mL/min | [facility] | | -ANGUILLAN | | | SERVICES, CORE | + [...] POTASSIUM CMNT | No Hemo | | [facility] | | | | | SERVICES, CORE | + +---------+ + + | ABDI Shannon CMNT | No Hemo | | [facility] | | | | | SERVICES, CORE | + +---------+ + + | AST CMNT | No Hemo | | [facility] | | | | | SERVICES, [...] HOSPITAL | [address] | [place] [address] | | | SERVICES, CORE | PARK [...] Statement B: | | | | | Clever Sense.Kuldat/CSPerformed | | | | | by PollVaultr,[address] | | | | | Trey Vallecillo, [facility],[place] | | | | | [address] | | | | | [phone].[employer]. | | | | | Kuldat, Iker Angelo MD, | | | | [...] [facility] | [address] | [place], [place] | | | UN[facility] | | [address] | | + + + + + FERRITIN (07/09/2018 4:20 PM) + + + + + | Component | Value | Ref Range | Performed At | + + + + + | FERRITIN | 53Comment: Male and | 50 - 200 ng/mL | [facility] | | | [...] HOSPITAL | [address] | [place] [address] | | | SERVICES, CORE | NANCY [...] LABORATORY | [address] | [place] [address] | | | TAVARES, MIR | NANCY [...] LABORATORY | [address] | [place] [address] | | | SERVICES, [facility] | [address] | | | + + + + + HEMOGLOBIN A1C, BLOOD (07/09/2018 4:20 PM) + + + + + | Component | Value | Ref Range | Performed At | + + + + + | HEMOGLOBIN A1C | 6.2 (H)Comment: Hgb A1C | <5.7 % | [facility] | | | [...] [facility] | | considered for monitoring termite exterminator glycemic control in patients with: | [...] | [address] | [place] [address] | | | SERVICES, SPECIAL | NANCY [...] LABORATORY | [address] | [place] [address] | | | SERVICES, MIR | PARK [...] OF | [address] | [place], [place] | | | CARDIOLOGY | [address] | [address] | | + + + + + from Last 3 Months Insurance + +--------+ +--------+-------+---------+ | Payer | Benefi | Subscriber | Type | Phone | Address | | | t Plan | ID | | | | | | / | | | | | | | Group | | | | | + +--------+ +--------+-------+---------+ | ELECTRICAL TECHNOLOGY INSTRUCTOR MEDICAID | ELECTRICAL TECHNOLOGY INSTRUCTOR | xxxxxxxx | Medica | | | [...] | 1970 | +- | [place] [address] | | | kevin | | | [address]64 | | + +--------+ +--------+ + + | DEANN JOSÉ SURAJ | Behavi | Self | [birth year] | Home: | 8th | | | oral | | 1970 | +- | [place] [address] | | | Health | | | 5364 | | + +--------+ +--------+ + +
--- OUTSIDE RECORDS SUMMARY | ~2018-08-12 | XMS | Encounter Summary ---
Demographics + + + | Address | [address] | | | [place] [address] | + + + | Home Phone | | + + + | Preferred Language | Unknown | + + + | Marital Status | Single | + + + | Hinduism Affiliation | Unknown | + + + | Race | Unknown | + + + | Ethnic Group | Unknown | + + + Author + + + | Author | [email or web address] | + + + | Organization | [facility] | + + + | Address | Unknown | + + + | Phone | Unavailable | + + + Support + + +---------+ + | Name | Relationship | Address | Phone | + + +---------+ + | An Carlin | ECON | , [place] | | + + +---------+ + Care Team Providers + +------+ + | Care Patient Care Representative Name | Role | Phone | [...] (primary) | | | | [place] [address] | | hypertension; | | | | [phone] | | Urinary incontinence | | | [...] | | | | | | [address] | | | | | | [address] | | | | | | | [...]
--- OUTSIDE RECORDS SUMMARY | ~2018-08-12 | XMS | Clinical Summary ---
Demographics + + + | Address | [address] | | | [place] [address] | + + + | Home Phone | | + + + | Preferred Language | Unknown | + + + | Marital Status | Single | + + + | Adventist Affiliation | Unknown | + + + | Race | Unknown | + + + | Ethnic Group | Unknown | + + + Author + + + | Author | [email or web address] | + + + | Organization | [facility] | + + + | Address | Unknown | + + + | Phone | Unavailable | + + + Support + + +---------+ + | Name | Relationship | Address | Phone | + + +---------+ + | An Carlin | ECON | , [place] | | + + +---------+ + Care Team Providers + +------+ + | Care Secondary English Teacher Name | Role | Phone | [...] | | | | | | [address] [place], [place] | | | | | | [address] | | | | | | | [...] + + + + + | Specific [place], [place] | 1.035 (A) | 1.005 - [...] +------+-------+ + | MEDICAID | EASTER | [id number] | | | [address] | | | N | | | | [place] | | | [place] | | | | [address] | | | [place] | | | | | + +--------+ [...] | Self | [birth year] | Home: | [address] [place] [address] | | | al/Fam | | [phone] | [phone] | [place] | | | kevin | | | [phone] | [address] | + +--------+ +--------+ + +
--- OUTSIDE RECORDS SUMMARY | ~2018-08-12 | XMS | Encounter Summary ---
Demographics + + + | Address | [address] | | | [place] [address] | + + + | Home Phone [...] Team Providers + +------+ + | Care Collateral Analyst Name | Role | Phone | [...] | | | | | Atrial | [place], [place] | [place] | | | | | fibrillation | [address] | [address] | | | | | , | Phone: | Phone: | | | | | unspecified | [phone] | [phone] | | | | | type (HCC) | Fax: | Fax: | | | | | Abnormal ECG | [phone] | [phone] | | | | | | | [...] | | | | | | | ([facility]) | | | | | | [...] | | 2019 | Visit | at [facility] [address] | [address], [address] | (Primary Dx); | | | | [address] Mailcode: | [address] [place], | Persistent atrial | | | | [facility] | [place] [address] | fibrillation ([facility]); | | | | Health and Healing, | [phone] | Essential | | | | 9th Floor [place], | | hypertension; | | | | [place] [address] | | Diabetes mellitus | | | | [phone] | | type 2 in obese | | | | | | ([facility]); Pre-operative | | | | | [...] 11%. KATH MALIK PA-C CARDIOLOGY GENERAL AT [address] [place] Mailcode: [address] [phone] Kath Malik PA-C - 07/09/2018 1:40 PM [...] Aspen reports a cardiac evaluation at [facility] in [place] for dental extrac tions. She had a [...] echo and chest xray findings. 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 Shortness of breath Thyroid disease Current Outpatient [...] Diabetes Father Hypertension Father Heart Disease Father [place] 78 Hypertension Mother Obesity Mother Social History [...] and no inducible ischemia Records reviewed from [facility] (see media tab and CareEverywhere): Echo [...] There is no pericardial effusion.21. No mass [id number]. Poo r visualization. Definity was used to [...] calculator (one point for each "yes" answer) http://www.mdcalc.com/tjmuuvo-mczqbqc-[email or web address]-qbq-lvsubaqeu-[email or web address]/ A. Elevated risk surgery?: yes B. Ischemic [...] provider/surgeon Yaritza Venegas MD CARDIOLOGY - PREVENTIVE [address] Mailcode: [facility] [place] [place] [address] in this encounter Plan of Treatment +--------+---------+ + + + | Date | Type | Specialty | Care Team | Description | +--------+---------+ + + + | 09/06/ Office | Pain Management | Ramona Sunshine | | | 2018 | Visit | | W, PhD [address] | | | | | | [place], [place] | | | | | | [address] | | | | | | [phone] | | | | | | | [...] OF | [address] | [place], [place] | | | CARDIOLOGY | [address] | [address] | | + + + + + [...]
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
--- OUTSIDE RECORDS SUMMARY | ~2018-08-12 | XMS | Encounter Summary ---
Demographics + + + | Address | [address] | | | [place] [address] | + + + | Home Phone [...] Team Providers + +------+ + | Care Pan Shover Name | Role | Phone | + [...] | 2019 | Encounter | Center at [facility] 6th | [address] | | | | | Floor [address] | [place], | | | | | [place] Mailcode: | [place] [address] | | | | | [facility] | | | | | | Health and Healing | | | | | | [place], [place] | | | | | | [address] | | | | | | [phone] | | | +--------+ + + + [...] [place] | | | | | | [address] | | | | | | [phone] | | | | | | | | +--------+---------+ + + + as of this encounter Visit Diagnoses Not on filein this encounter"
--- OUTSIDE RECORDS SUMMARY | ~2018-08-12 | XMS | Encounter Summary ---
Demographics + + + | Address | [address] | | | [place] [address] | + + + | Home Phone [...] Providers + +------+ + | Care Supervisor Hardboard Name | Role | Phone | + [...] | | [facility] | JULIETA Jim[address] | | | | | [place] at | [address] [place], | | | | | [place] [address] | [place] [address] | | | | | [address] | [phone] | | | | | [place], [place] | | | | | | [address] | | | | | | [phone] | | | +--------+ + + + [...] [place] | | | | | | [address] | | | | | | [phone] | | | | | | | | +--------+---------+ + + + as of this encounter Visit Diagnoses Not on filein this encounter"
--- OUTSIDE RECORDS SUMMARY | ~2018-08-12 | XMS | Encounter Summary ---
Demographics + + + | Address | [address] | | | [place] [address] | + + + | Home Phone [...] Team Providers + +------+ + | Care Rifle Case Repairer Name | Role | Phone | + +------+ + | Iqra Peralta MD | PCP | | + +------+ + Encounter Details +--------+ + + + + | Date | Type | Department | Care Team | Description | +--------+ + + + + | 07/22/ | Abstract | Cardiology | Juan Antonio Mclaughlin, | | | 2019 | | Preventive at [facility] | [address] | | | | | [address] | [place] [facility] [place] | | | | | Mailcode: [id number] | [address] | | | | | [facility] | [phone] | | | | | and Healing | | | | | | [place], [place] | | | | | | [address] | | | | | | [phone] | | | +--------+ + + + [...] | | | | | | [place] | | | | | | [address] | | | | | | [phone] | | | | | | | | +--------+---------+ + + + as of this encounter Visit Diagnoses Not on filein this encounter"
--- OUTSIDE RECORDS SUMMARY | ~2018-08-12 | XMS | Encounter Summary ---
Demographics + + + | Address | [address] | | | [place] [address] | + + + | Home Phone [...] Team Providers + +------+ + | Care Procurement Internship Name | Role | Phone | [...] | | [facility] | JULIETA Jiménez [address] | | | | | [place] at | [address] [place], | | | | | [place] [address] | [place] [address] | | | | | [address] | [phone] | | | | | [place], [place] | | | | | | [address] | | | | | | [phone] | | | +--------+ + + + [...] [place] | | | | | | [address] | | | | | | [phone] | | | | | | | | +--------+---------+ + + + as of this encounter Visit Diagnoses Not on filein this encounter"
[~2018-08-12 11:57] MED LIST changes: +JARDIANCE25 MG PO; -LEVOTHYROXINE75 MCG PO; +LEVOTHYROXINE88 MCG PO; -LIPITOR10 MG PO; +LIPITOR40 MG PO; +LOSARTAN POTASS25 MG PO; +NEURONTIN100 MG PO
--- OUTSIDE RECORDS SUMMARY | 2018-08-12 12:00 | XMS ---
PreManage Notification: DEANN JOSÉ Security Pipe Jeeper Events No recent Security Events currently on file CRITERIA MET - Group Notification - [facility] Guidelines - [facility] CARE PROVIDERS Suad Woods Director Of Elementary Education/Cloth Seconds Sorter 01/30/2018-Current PHONE: [phone] CAMERON STARKEY Internal Medicine 01/25/2018-Current BARBARA PHONE: [phone] Suad Woods Primary Care 01/30/2018-Current PHONE: [phone] DR NATALIA DOMINGUEZ Primary Care 07/30/2016-Current PHONE: [phone] Shamir has no Care Guidelines for this patient. Care History Medical/Surgical 04/16/2018 [facility] - Patient is currently established with [facility]. If patient is seen in the ED during business hours. Please contact CHWs at [facility]. Care Recommendation: This patient has had 5 or more Emergency Department visits in the last 12 months.\T\nbsp; Patient requires education on the scope and purpose of the ED as an acute care provider not a Primary Care Provider and should not be utilized for chronic conditions.\T\nbsp; These are guidelines and the provider should exercise clinical judgment when providing care. E.D. VISIT COUNT (12 MO.) 5 [facility]. TOTAL 5 NOTE: Visits indicate total known visits. ED/UCC VISIT TRACKING (12 MO.) 08/12/2018 11:57 [place] [place] TYPE: Emergency COMPLAINT: - L LEG PAIN 04/15/2018 21:03 [place] [place] TYPE: Emergency COMPLAINT: - L/R LEG SWELLING DIAGNOSES: - Other oil heaterman (current) drug therapy - Other specified disorders of veins - Allergy status to penicillin - Obesity, unspecified - Cellulitis of right lower limb - Cellulitis of left lower limb - Allergy status to sulfonamides status - termite treater (current) use of anticoagulants 01/24/2018 16:36 [place] [place] TYPE: Emergency COMPLAINT: - SKIN PROBLEM DIAGNOSES: - Rash and other nonspecific skin eruption 09/13/2017 19:43 [place] [place] TYPE: Emergency COMPLAINT: - LEG PAIN DIAGNOSES: - Heart failure, unspecified - termite treater (current) use of anticoagulants - Personal history of pneumonia (recurrent) - Personal history of nicotine dependence - Unspecified asthma with (acute) exacerbation - USP (CURRENT) USE OF ORAL HYPOGLYCEMIC DRUGS - Hypothyroidism, unspecified - Shortness of breath - Hypertensive heart disease with heart failure - Unspecified atrial fibrillation - termite treater (current) use of oral hypoglycemic drugs - Other long-term (current) drug therapy - Allergy status to sulfonamides status - Allergy status to penicillin - Panic disorder [episodic paroxysmal anxiety] - Acute bronchitis, unspecified - Obesity, unspecified 08/16/2017 19:56 [place] [place] TYPE: Emergency COMPLAINT: - POSS WORMS DIAGNOSES: - Allergy status to penicillin - Hypothyroidism, unspecified - Unspecified asthma, uncomplicated - Morbid (severe) obesity due to excess calories - Intestinal helminthiasis, unspecified - Allergy status to sulfonamides status - shelter (current) use of anticoagulants - Nausea with vomiting, unspecified - Other long-term (current) drug therapy - Personal history of nicotine dependence INPATIENT VISIT TRACKING (12 MO.) 08/12/2017 16:00 [facility] Teresa [place]ashaad[place]hendra [place] TYPE: Medical Surgical COMPLAINT: - SWINGBED DIAGNOSES: - Morbid (severe) obesity due to excess calories - Hypothyroidism, unspecified - Influenza due to other identified influenza virus with other specified pneumonia - Major depressive disorder, single episode, unspecified - Type 2 diabetes mellitus without complications - Hyperlipidemia, unspecified - Unspecified bacterial pneumonia - Do not resuscitate - Acute and chronic respiratory failure with hypoxia - Allergy status to penicillin - Chronic atrial fibrillation - Gastro-esophageal reflux disease without esophagitis - termite treater (current) use of oral hypoglycemic drugs - Obstructive sleep apnea (adult) (pediatric) - Anxiety disorder, unspecified - Body mass index (BMI) 70 or greater, adult - Restless legs syndrome - Moderate persistent asthma, uncomplicated - termite treater (current) use of anticoagulants - Acute and chronic respiratory failure with hypercapnia [email or web address]
[2018-08-12] MEDS ORDERED: DOXYCYCLINE MO100 M1 PO (12:12)
--- NOTE | 2018-08-12 19:02 | NUR ---
PT RECEIVED FROM ER. KIERRA S/S OF ACUTE DISTRESS. PT ASSISTED TO ORDER DINNER. VSS. IV NS AT 75 STARTED PER ORDER. HISTORY COMPLETED. PT AMBULATING IN ROOM, STEADY GAIT.
--- NOTE | 2018-08-12 19:30 | NUR ---
REPORT RECEIVED, PT RESTING IN BEDSIDE CHAIR EATING DINNER, ON RA, IV FLUIDS INFUSING PER EMAR WNL, NO REQUESTS AT THIS TIME, CALL LIGHT WITHIN REACH. FAMILY AT BEDSIDE. FALL PRECAUTIONS IN PLACE.
--- NOTE | 2018-08-12 20:30 | NUR ---
PT RESTING IN BEDSIDE CHAIR, ASSISTED FROM BSC TO BATHROOM, 1 PERSON SBA, NO DIFFICULTY WITH AMBULATION. PT BACK TO BED, ASSESSMENT COMPLETE, CELLULITIS/ REDNESS NOTED ON PT'S LEFT LEG FROM FOOT TO LEFT LATERAL HIP, PRIMARY AREA IS LOCATED ON PT'S LEFT CASTILLO, SOME WARMTH NOTED BUT NOT OVERLY HOT, PT C/O /10 PAIN ASSOCIATED TO HER LEGS, VSS, LS CLEAR, NO REQUESTS AT THIS TIME, CALL LIGHT WITHIN REACH. FALL PRECAUTIONS IN PLACE.
--- NOTE | 2018-08-12 21:29 | NUR ---
CHARGE NURSE ROUNDING NOTE: UP TO BRP W/O HELP, TOLERATED WELL. NO DISTRESS. HOME CPAP IN ROOM. FLUIDS AND CALL LIHGT AT BEDSIDE
--- NOTE | 2018-08-12 21:30 | NUR ---
SCHEDULED MEDS ADMINISTERED PER EMAR, PT RESTING IN BED VISITING WITH FAMILY, NO FURTHER NEEDS AT THIS TIME, CALL LIGHT WITHIN REACH, IV FLUIDS INFUSING PER EMAR WNL.
--- NOTE | 2018-08-12 22:30 | NUR ---
PT RESTING IN BED VISITING WITH FAMILY AT BEDSIDE, NO NEEDS AT THIS TIME, ON RA, IV FLUIDS INFUSING PER EMAR WNL, CALL LIGHT WITHIN REACH. FALL PRECAUTIONS IN PLACE.
--- NOTE | 2018-08-12 22:47 | NUR ---
HELPED PT TO THE BATHROOM AND BACK TO BED. BEDSIDE TABLE AND CALL LIGHT IN REACH.
--- NOTE | 2018-08-13 00:29 | NUR ---
PT RESTING IN BED, EYES CLOSED, HOME CPAP ON, IV FLUIDS INFUSING PER EMAR WNL, NO REQUESTS AT THIS TIME, CALL LIGHT WITHIN REACH, FALL PRECAUTIONS IN PLACE.
--- NOTE | 2018-08-13 01:35 | NUR ---
PT ASSISTED FROM BED TO BATHROOM, PT TOLERATED WELL, VOIDED 600 MLS, BACK TO BED NOW, IV FLUIDS INFUSING PER EMAR WNL, VSS, NO REQUESTS AT THIS TIME, CALL LIGHT WITHIN REACH. FALL PRECAUTIONS IN PLACE.
--- NOTE | 2018-08-13 02:38 | NUR ---
PT RESTING IN BED, EYES CLOSED, BREATHS EVEN, UNLABORED, NO REQUESTS AT THIS TIME, HOME CPAP ON, CALL LIGHT WITHIN REACH, IV FLUIDS INFUSING PER EMAR WNL. FALL PRECAUTIONS IN PLACE.
--- NOTE | 2018-08-13 04:42 | NUR ---
PT AOX4 THIS SHIFT, APPROPRIATE, PT GIVEN SCHEDULED PAIN MEDS, NO FURTHER C/O PAIN THIS SHIFT, REDNESS IN LEFT LEG HAS NOT INCREASED FROM OUTLINE OR IN WARMTH, PT STATES SHE BELIEVES IT HAS IMPROVED, SOME REDNESS NOTED UNDER PT'S LEFT PANNUS WEL, CHUX IN BED FOR OCCASIONAL INCONTINENCE, IV FLUIDS INFUSING PER EMAR WNL, ON HOME CPAP AT NIGHT, PT'S VSS, URINE OUTPUT QS.
--- NOTE | 2018-08-13 06:34 | NUR ---
PT RESTING IN BED, CPAP ON, NO NEEDS AT THIS TIME, IV FLUIDS INFUSING PER EMAR WNL, CALL LIGHT WITHIN REACH.
--- NOTE | 2018-08-13 07:35 | NUR ---
RECIEVED BEDSIDE REPORT FROM KIM [place]ELAEZ. PT AWAKE AND ALERT. REQUESTED ASSISTANCE TO BATHROOM. VOIDED 700ML. PT SLEEPING WITH CPAP IN PLACE.
--- NOTE | 2018-08-13 09:50 | NUR ---
PT IS UP TO CHAIR. BREAKFAST WAS LATE, BUT SHE IS EATING. VOIDING WELL.
--- NOTE | 2018-08-13 09:56 | NUR ---
PATIENT SITTING UP IN CHAIR TAKING SOME FOOD. VITAL SIGNS AND I&O DONE. ICE WATER AND SUGAR GIVEN. CALL LIGHT WITHIN REACH. NO OTHER NEEDS AT THIS TIME
--- NOTE | 2018-08-13 10:00 | NUR ---
SPOKE WITH PATIENT IN ROOM. PATIENT UP IN CHAIR. PATIENT STATES SHE LIVES ALONE STILL BUT NOW HAS CAREGIVER 36HOURS BIWEEKLY. SHE STATES SHE FEELS SAFE TO RETURN HOME AT DISCHARGE AND THIS IS HER PREFERENCE. SHE STATES UNDERSTANDING THAT THE PLAN IS IV ACCESS AND OUTPATIENT ANTIBIOTICS. WE DISCUSSED THIS IN DETAIL. 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 SHE STATES SHE DRIVES AND CAN BRING HERSELF. WE DISCUSSED UNDERSTANDING DIAGNOSIS, TESTS, MEDICATIONS (AND SIDE EFFECTS), FOLLOW UP PLAN BY DISCHARGE. SHE STATES UNDERSTANDING. 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 ENCOURAGED THE IMPORTANCE OF THIS. SHE STATES SHE STILL IS IN CONTACT WITH SERGO FITZPATRICK FROM HOSPITAL AND SHE WILL CONTINUE TO WORK WITH HER, ALSO. QUESTIONS ANSWERED, NO FURTHER CONCERNS AT THIS TIME.
--- NOTE | 2018-08-13 11:32 | NUR ---
PT SITTING IN CHAIR, LEGS ELEVATED. SHE IS ALERT, ORIENTED AND REMEMBERS ME FROM PREVIOUS STAY. PT ADMITTED THAT SHE IS NOT DOING ALL THAT SHE COULD BE TO HELP PREVENT HER INFECTIONS.HAD PLEASANT VISIT,VISITORS CAME WHILE I WAS PRESENT. EXTENDED A BLESSING, WILL CONTINUE TO FOLLOW NEEDED
--- NOTE | 2018-08-13 11:55 | NUR ---
PT IS UP TO SHOWER WITH ADMINISTRATIVE SUPPORT ASSISTANT. IV S/L.
--- NOTE | 2018-08-13 12:52 | NUR ---
PATIENT SITTING UP IN CHAIR. IV COVERED. PATIENT IS GOING TO TAKE A SHOWER BY HERSELF. NO OTHER NEEDS AT THIS TIME
--- NOTE | 2018-08-13 14:31 | NUR ---
PATIENT RESTING IN BED. VITAL SIGNS AND I&O DONE. ICE WATER GIVEN. CALL LIGHT WITHIN REACH. NO OTHER NEEDS AT THIS TIME
--- NOTE | 2018-08-13 14:58 | NUR ---
PT RESTING IN BED WITH PHONE. PT ASKED ABOUT HER INR, WHICH CAME DOWN A TENTH, VALUE MUST BE 1.5 FOR PICC LINE. MD AWARE OF VALUE.
[2018-08-13] MEDS ORDERED: NORCO 5-325 TA1 EACH PO (15:44)
[2018-08-13] MEDS ORDERED: WELLBUTRIN XL150 MG PO (17:29)
[2018-08-13] MEDS ORDERED: VICTOZA 2-0.6 MG/0.1 SUB-Q (17:33)
[2018-08-13] MEDS ORDERED: TOPROL XL25 MG PO (17:33)
[2018-08-13] MEDS ORDERED: MIRAPEX1.5 MG PO (17:34)
[2018-08-13] MEDS ORDERED: IRON325 M1 PO (17:34)
--- NOTE | 2018-08-13 17:55 | NUR ---
MED REC COMPLETE
--- NOTE | 2018-08-13 18:13 | NUR ---
PATIENT SITTING UP IN CHAIR. FAMILY IN ROOM. VITAL SIGNS AND I&O DONE. CALL LIGHT WITHIN REACH. ICE WATER GIVEN. CALL LIGHT WITHIN REACH. NO OTHER NEEDS AT THIS TIME
--- NOTE | 2018-08-13 19:42 | NUR ---
REPORT RECEIVED, PT RESTING IN BEDSIDE CHAIR, PT UP TO WALK IN THE HALLS INDPENDENTLY, DENIES ANY DIFFICULTY, NO LIGHT HEADEDNESS OR DIZZINESS, PT DENIES ANY NEEDS AT THIS TIME, IV FLUIDS INFUSING PER EMAR WNL. CALL LIGHT WITHIN REACH. FALL PRECAUTIONS IN PLACE.
--- NOTE | 2018-08-13 20:00 | NUR ---
PT ASSISTED TO GET INTO BED. LOTION AND SOCKS APPLIED TO FEET BILATERALLY PER PT REQUEST. PT REQUESTS HOT WATER, PROVIDED. DENIES FURTHER NEEDS. TALKING TO FAMILY ON CELL PHONE. CALL LIGHT IN REACH.
--- NOTE | 2018-08-13 21:30 | NUR ---
IN ROOM TO ADMIN EVENING MEDS, PT AOX4, APPROPRIATE, PT'S CBG 139, NO SS INSULIN COVERAGE INDICATED, PT C/O 12/08 PAIN RELATED TO BILATERAL LEGS, SCHEDULED PAIN MEDICATION GIVEN PER EMAR, PT TOLERATED WELL, PT UP TO BATHROOM WITH 1 PERSON ASSIST, VOIDING WELL, TOLERATING AMBULATION WELL. ASSESSMENT COMPLETE, PT STATES SHE FEELS HER LEGS HAVE IMPROVED, PT'S LEFT LEG REMAINS TO HAVE REDNESS WELL WARMTH BUT HAS REDUCED IN REDNESS, HAS ALSO RECEEDED FROM OUTLINE A SMALL AMOUNT. PT'S RIGH LEG APPEARS SLIGHTLY RED BUT PT STATES IS WNL. PULSES REMAIN PALPABLE, CAP REFILL WNL, NO FURTHER REQUESTS AT THIS TIME, CALL LIGHT WITHIN REACH. FALL PRECAUTIONS IN PLACE. IV FLUIDS INFUSING PER EMAR WNL.
--- NOTE | 2018-08-13 23:30 | NUR ---
PT RESTING IN BED, EYES CLOSED, BREATHS EVEN, HOME CPAP ON, NO REQUESTS AT THIS TIME, CALL LIGHT WITHIN REACH. IV FLUIDS INFUSING PER EMAR WNL.
--- NOTE | 2018-08-14 01:03 | NUR ---
PT RESTING IN BED, HOME CPAP ON, EYES CLOSED, BREATHS EVEN, UNLABORED, NO REQUESTS AT THIS TIME, CALL LIGHT WITHIN REACH, IV FLUIDS INFUSING PER EMAR WNL.
--- NOTE | 2018-08-14 02:41 | NUR ---
PT RESTING IN BED, ON HOME CPAP, EYES CLOSED, BREATHS EVEN, UNLABORED, NO REQUESTS AT THIS TIME, CALL LIGHT WITHIN REACH, FALL PRECAUTIONS IN PLACE. IV FLUIDS INFUSING PER EMAR WNL.
--- NOTE | 2018-08-14 04:09 | NUR ---
pt assisted from bed to bathroom, no further requests, iv fluids infusing per emar wnl, call light within reach. fall precautions in place.
--- NOTE | 2018-08-14 06:24 | NUR ---
PT AOX4 THIS SHIFT APPROPRIATE, IV FLUIDS/ABX INFUSED PER EMAR WNL THIS SHIFT, PT'S VSS, URINE OUTPUT QS, NO C/O NAUSEA, LEGS REMAIN RED, REDNESS HAS RECEEDED WELL WARMTH HAS DECREASED, PT'S VSS, AFEBRILE, PT WALKED IN HALLS INDEPENDENTLY THIS SHIFT, TOLERATED WELL. CALLS APPROPRIATELY.
--- NOTE | 2018-08-14 07:31 | NUR ---
RECIEVED BEDSIDE REPORT FROM LATANYA ALVAREZ. PT IS SLEEPING WITH HOME CPAP IN PLACE. PT SLEPT MOST OF NIGHT AFTER HOME DOSE OF MIRAPEX WAS ORDERED. PT WAS UP WALKING IN BYRNE. IV IS STILL RUNNING.
--- NOTE | 2018-08-14 10:03 | NUR ---
PT S/F FOR SHOWER.
--- NOTE | 2018-08-14 17:44 | NUR ---
PT IV CONTINUES TO BE PATENT, NO REDNESS, WARMTH, SWELLING, OR INDURATION. PT TOLERATING IV ABX WELL. REDNESS CONTINUES TO RECEED FROM OUTLINE, BUT LOWER LEG APEARS DEEPER RED. PT C/O PAIN IN LOWER LEFT LEG, THINKS IT MAY BE A BLOOD CLOT. ELEVATED LEG ON MD CORI AWARE. PICC LINE WILL BE PLACED 08/15.
--- NOTE | 2018-08-14 19:05 | NUR ---
SHIFT REPORT RECEIVED. PATIENT RESTING IN BED. IV SITE ASSESSED, WNL. PATIENT DENIES NEEDS AT THIS TIME. CALL LIGHT IN REACH.
--- NOTE | 2018-08-14 20:45 | NUR ---
EVENING MEDS PROVIDED. BLOOD GLUCOSE DOES NOT REQUIRE INSULIN COVERAGE. PATIENT DENIES ANY CONCERNS AT THIS TIME. IV SITE WNL, FLUSHED EASILY. INDEXER IN ROOM FOR VS.
--- NOTE | 2018-08-14 21:14 | NUR ---
DIGITAL PUBLISHING SPECIALIST ROUNDING NOTE. EDI PROGRAMMER ANALYST AND PRIMARY RN IN ROOM. PT DENIES NEEDS AT THIS TIME. CALL LIGHT IN REACH.
--- NOTE | 2018-08-14 22:00 | NUR ---
SCHEDULED ABX AND NORCO PROVIDED. PATIENT UP TO THE BATHROOM. 1PA, STEADY ON HER FEET. PATIENT'S LUNGS ARE CLEAR, DIM IN THE BASES. ENCOURAGE COUGH AND DEEP BREATH. ABD IS SOFT AND NONTENDER. OTTO LOWER EXTREMITIES SHOW SIGNS OF POOR CIRCULATION BUT CMS INTACT. LEFT LOWER EXTREMITIY IS WARM TO THE TOUCH, MORE SO ON THE CALF. NO WEEPING NOTED. 3+ EDEMA. PATIENT'S CPAP FILLED WITH STERILE WATER PER REQUEST AND TURNED ON. NO FURTHER NEEDS AT THIS TIME. CALL LIGHT IN REACH.
--- NOTE | 2018-08-14 23:59 | NUR ---
PATIENT CALLED TO USE THE BATHROOM. 1PA SBA. PATIENT IS BACK IN BED. CALL LIGHT AND SIDE TABLE WITHIN REACH.
--- NOTE | 2018-08-15 01:15 | NUR ---
PATIENT UP WALKING MULTIPLE LAPS IN HALLWAY. APPEARS STEADY ON HER FEET. WHEN SHE RETURNED TO BED, ASSISTED TO POSITION COMFORTABLY. IV INFUSING PER ORDER. CPAP IN PLACE. LEGS ELEVATED. ICE PACK ON LEFT CALF.
--- NOTE | 2018-08-15 04:45 | NUR ---
PATIENT UP TO BATHROOM. 1PA, STEADY ON HER FEET. PATIENT REPORTS PAIN IN LEFT LEG IS CONSTANT BUT REDUCED SLIGHTLY 4/10. PATIENT DENIES ANY INTERVENTIONS. RETURNED TO BED. ELEVATED LEGS. CPAP IN USE. CALL LIGHT IN REACH.
--- NOTE | 2018-08-15 06:35 | NUR ---
PATIENT SLEPT ON AND OFF THROUGHOUT SHIFT. PAIN IN LEFT LEG CONTROLLED WITH SCHEDULED NORCO. LEFT LOWER LEG REDNESS HAS IMPROVED. PATIENT CONTINUES TO HAVE PAIN FOCUSED ON HER CALF ON THE LEFT LEG. ICE APPLIED PRN. CPAP WHILE SLEEPING. PRN NEBS. SBA FOR AMBULATION. IV FLUIDS WITH IV ABX. PICC LINE CONSULT ORDERED FOR TODAY. ADA DIET WITH SSI, NO COVERAGE REQUIRED THIS SHIFT.
--- NOTE | 2018-08-15 07:22 | NUR ---
RECIEVED BEDSIDE REPORT FROM KIM ADDISON. PT SLEEPING WITH HOME CPAP IN PLACE. WOKE TO VOICE. IVF RUNNING PER EMAR. PT REQUESTED VISTERIL PRIOR TO PICC PLACEMENT.
--- NOTE | 2018-08-15 07:57 | NUR ---
PT UP TO BATHROOM AND RETURNED TO BED. RN TRIED TO GET PT TO GO TO CHAIR FOR BREAKFAST, BUT PT REFUSED STATING "I WANT TO SLEEP SOME MORE". PT PUT CPAP BACK IN PLACE. WILL REAPPROCH WHEN BREAKFAST TRAYS ROUND.
--- NOTE | 2018-08-15 09:48 | NUR ---
PT BP WAS UNDER PARAMETERS FOR MEDICATIONS. DISCUSSED FINDINGS WITH DR WESTBROOK WHO LOOKED AT HISTORY AND ADVISED TO HOLD LOSARTAN BUT GIVE METOPORLOL AND DILTALIZAM. GIVEN ORDERED.
--- NOTE | 2018-08-15 14:02 | NUR ---
HAMILTON Soria RN IS IN ROOM TO PLACE PICC LINE. PT IS ANXIOUS, PRN ANXIETY MEDS GIVEN EARLIER THIS AM. RNS MIQUEL AND HAMILTON WERE ABLE TO RELIEVE PT'S ANXIETY RE: PROCEDURE BY SHOWING PT THE ULTRASOUND RESULTS, DIFFERENCES IN VIENS AND ARTERIES ON ULTRASOUND.
--- NOTE | 2018-08-15 15:38 | NUR ---
FLOOR COVERING LAYER CALLED ME AT HOME TO COME IN AND PLACE A PICC LINE FOR THIS PATIENT. EMR IS REVIEWED, PATIENT IS INTERVIEWED AND INFORMED CONSENT IS OBTAINED. PATIENT ASKS FOR LINE TO BE PLACED IN RIGHT ARM. PATIENT CURRENTLY HAS A PIV IN LEFT UPPER ARM. RIGHT ARM VENOUS ANATOMY IS VISUALIZED USING SITE RITE ULTRASOUND. BASILIC VEIN IS IDENTIFIED AND IS NOTED TO BE LARGER THAN 8 GAMBIAN. 4 GAMBIAN PICC LINE INSERTED USING STERILE TECHNIQUE PER PROTOCOL. PATIENT IS MONITORED W/3 LEAD CARDIAC MONITORING THROUGH THE ENTIRE PROCEDURE. PATIENT IS NOTED TO BE IN ATRIAL FIBRILLATION. VENOUS ACCESS IS GAINED ON THE 1ST ATTEMPT AND PICC LINE IS INSERTED WITHOUT DIFFICULTY. AFTER 1ST CXR, PICC IS NOTED TO BE IN THE INTERNAL JUGULAR VEIN. PATIENT REPORTS "I CAN FEEL IT IN MY EAR". LINE IS PULLED BACK, PATIENT IS INSTRUCTED TO PUT HER HEAD TO HER RIGHT SHOULDER AND LINE IS RE-INSERTED. 2ND CXR IS TAKEN AND PICC IS NOTED TO BE DEEP IN THE CARDIAC SILHOUETTE, LINE IS PULLED BACK 8 CM AND A 3RD CXR IS TAKEN AND APPEARS TO BE IN GOOD POSITION. RADIOLOGY REPORT IS REVIEWED AND LINE IS NOTED TO BE IN THE UPPER SVC. VERBAL REPORT IS GIVEN TO KIM LAFLEUR AND HER QUESTIONS ARE ANSWERED. PATIENT TOLERATES THE PICC LINE INSERTION IN ITS ENTIRETY.
--- NOTE | 2018-08-15 15:48 | NUR ---
PT TOLERATED THE PICC PLACEMENT WELL. PLACEMENT VERIFIED BY X-RAY. VANCYO DOSE IS LATE DUE TO PICC PLACEMENT, BUT IS NOW INFUSING.
[2018-08-15] MEDS ORDERED: KEFLEX500 MG PO (16:00)
[2018-08-15] MEDS ORDERED: VANCOMYCIN2 GM/5001 IV (16:13)
== END 2018-08-15 17:00 | disposition home or self-care (01) ==
LOC: ED 11:57 → MS 11:58
PROVIDERS: ADMIT Internal Medicine
PROC: 02HV33Z Insertion of Infusion Device into Superior Vena Cava, Percutaneous Approach (ICD-10-PCS; principal; 2018-08-15 14:45)
DX: L03.116 Cellulitis of left lower limb (principal); I48.2 Chronic atrial fibrillation; I10 Essential (primary) hypertension; N39.0 Urinary tract infection, site not specified; B96.20 Unspecified Escherichia coli [E. coli] as the cause of diseases classified elsewhere; E11.9 Type 2 diabetes mellitus without complications; I87.2 Venous insufficiency (chronic) (peripheral); G47.30 Sleep apnea, unspecified; M17.0 Bilateral primary osteoarthritis of knee; J45.909 Unspecified asthma, uncomplicated; F32.9 Major depressive disorder, single episode, unspecified; F41.0 Panic disorder [episodic paroxysmal anxiety]; E66.01 Morbid (severe) obesity due to excess calories; E03.9 Hypothyroidism, unspecified; R79.1 Abnormal coagulation profile; T45.515A Adverse effect of anticoagulants, initial encounter; Z68.45 Body mass index [BMI] 70 or greater, adult; Z87.01 Personal history of pneumonia (recurrent); Z98.84 Bariatric surgery status; Z88.0 Allergy status to penicillin; Z88.2 Allergy status to sulfonamides; Z79.01 Long term (current) use of anticoagulants; Z79.84 Long term (current) use of oral hypoglycemic drugs; Z79.51 Long term (current) use of inhaled steroids; Z79.899 Other long term (current) drug therapy
CPT/HCPCS: 36415; 36569; 71045; 80048; 80053; 80202; 85025; 85610; 85651; 94640; 96361; 96365; 96366; 99284-25; C1751; G0378; J1815; J3370; J7030; J7060; Q0177

== ENCOUNTER 2018-09-14 12:43 | Emergency (ER) | payer OTHER ==
[~2018-09-14] VITALS: Ht 160 cm; Wt 180.5 kg
--- OUTSIDE RECORDS SUMMARY | ~2018-09-14 | XMS | Clinical Summary ---
Demographics + + + | Address | [address] | | | [place] [address] | + + + | Home Phone | | + + + | Preferred Language | Unknown | + + + | Marital Status | Single | + + + | Roman Catholic Affiliation | Unknown | + + + | Race | Unknown | + + + | Ethnic Group | Unknown | + + + Author + + + | Author | [facility] | + + + | Organization | [facility] | + + + | Address | Unknown | + + + | Phone | Unavailable | + + + Support + + +---------+ + | Name | Relationship | Address | Phone | + + +---------+ + | An Carlin | ECON | , [place] | | + + +---------+ + Care Team Providers + +------+ + | Care Wanigan Clerk Name | Role | Phone | + +------+ + | Iqra Peralta MD | PP | | + +------+ + Allergies + + + + + + | Active Allergy | Reactions | Severity | Noted | Comments | | | | | Date | | + + + + + + | Phendimetrazine | Palpitations | Medium | | | | Tartrate | | | | | + + + + + + | Clarithromycin | Hives | High | 09/12/19 | | | | | | 10 | | + + + + + + | Sulfamethoxazole-Tri | Hives | High | 11/18/19 | | | methoprim | | | 14 | | + + + + + + Current Medications + + + +---------+------+------+-------+ | Prescription | Sig. | Disp. | Refills | Star | End | Statu | | | | | | t | Date | s | | | | | | Date | | | + + + +---------+------+------+-------+ | Ergocalciferol | Take 50,000 Units by | | | | | Activ | | (VITAMIN D2 PO) | mouth. Thursday, | | | | | e | | | Thursday, Thursday | | | | | | + + + +---------+------+------+-------+ | | Take 3 mLs by | 360 mL | 0 | 10/31 | | Activ | | ipratropium-albutero | nebulization every 6 | | | 2/20 | | e | | l (DUO-NEB) 0.5-2.5 | (six) hours as | | | 14 | | | | mg/3mL | needed. | | | | | | + + + +---------+------+------+-------+ | buPROPion | Take 300 mg by mouth | | | | | Activ | | (WELLBUTRIN XL) 300 | every morning. | | | | | e | | MG 24 hr tablet | | | | | | | + + + +---------+------+------+-------+ | buPROPion | Take 150 mg by mouth | | | | | Activ | | (WELLBUTRIN XL) 150 | every morning. | | | | | e | | MG 24 hr tablet | | | | | | | + + + +---------+------+------+-------+ | omeprazole | Take 20 mg by mouth | | | | | Activ | | (PRILOSEC) 20 MG | every morning before | | | | | e | | capsule | breakfast. | | | | | | + + + +---------+------+------+-------+ | pramipexole | Take 1.5 mg by mouth | | | | | Activ | | (MIRAPEX) 1.5 MG | 2 (two) times | | | | | e | | tablet | daily. | | | | | | + + + +---------+------+------+-------+ | ferrous sulfate, | Take 65 mg of iron | | | | | Activ | | 65 FE, 325 (65 FE) | by mouth 2 (two) | | | | | e | | MG EC tablet | times daily with | | | | | | | | meals. | | | | | | + + + +---------+------+------+-------+ | hydrOXYzine | Take 25 mg by mouth | | | | | Activ | | (VISTARIL) 25 MG | 3 (three) times | | | | | e | | capsule | daily as needed for | | | | | | | | Itching. | | | | | | + + + +---------+------+------+-------+ | diltiazem | Take 360 mg by mouth | | | | | Activ | | (CARDIZEM CD) 360 MG | nightly. | | | | | e | | 24 hr capsule | | | | | | | + + + +---------+------+------+-------+ | metFORMIN | Take 1,000 mg by | | | | | Activ | | (GLUCOPHAGE) 1000 MG | mouth 2 (two) times | | | | | e | | tablet | daily with meals. | | | | | | + + + +---------+------+------+-------+ | warfarin | Take 10 mg by mouth | | | | | Activ | | (COUMADIN) 5 MG | daily. | | | | | e | | tablet | | | | | | | + + + +---------+------+------+-------+ | atorvastatin | Take 40 mg by mouth | | | | | Activ | | (LIPITOR) 10 MG | every morning. | | | | | e | | tablet | | | | | | | + + + +---------+------+------+-------+ | beclomethasone | Inhale 1 puff into | | | | | Activ | | (QVAR) 80 MCG/ACT | the lungs 2 (two) | | | | | e | | inhaler | times daily. | | | | | | + + + +---------+------+------+-------+ | albuterol | Inhale 2 puffs into | | | | | Activ | | (PROVENTIL | the lungs every 4 | | | | | e | | HFA;VENTOLIN HFA) | (four) hours as | | | | | | | 108 (90 Base) | needed for Wheezing. | | | | | | | MCG/ACT inhaler | | | | | | | + + + +---------+------+------+-------+ | Oxygen (outpatient | Inhale 2 L into the | | | | | Activ | | therapy) | lungs continuous. | | | | | e | + + + +---------+------+------+-------+ | gabapentin | Take 100 mg by mouth | | | | | Activ | | (NEURONTIN) 100 MG | 3 (three) times | | | | | e | | capsule | daily. | | | | | | + + + +---------+------+------+-------+ | LORazepam (ATIVAN) | Take 0.5 mg by mouth | | | | | Activ | | 0.5 MG tablet | every 6 (six) hours | | | | | e | | | as needed for | | | | | | | | Anxiety. | | | | | | + + + +---------+------+------+-------+ | levothyroxine | Take 88 mcg by mouth | | | | | Activ | | (SYNTHROID) 88 MCG | every morning | | | | | e | | tablet | before breakfast. | | | | | | + + + +---------+------+------+-------+ | Empagliflozin | Take 25 mg by mouth | | | | | Activ | | (JARDIANCE) 25 MG | daily. | | | | | e | | TABS | | | | | | | + + + +---------+------+------+-------+ | metoprolol | Take 25 mg by mouth | | | | | Activ | | (TOPROL-XL) 25 MG 24 | daily. | | | | | e | | hr tablet | | | | | | | + + + +---------+------+------+-------+ | losartan (COZAAR) | Take 1 tablet by | 180 | 3 | 03/0 | 03/0 | Activ | | 25 MG tablet | mouth 2 (two) times | tablet | | 4/20 | 3/20 | e | | | daily. | | | 19 | 20 | | + + + +---------+------+------+-------+ Active Problems + + + | Problem | Noted Date | + + + | Nephrotic range proteinuria | 08/02/2018 | + + + | Bilateral leg edema | 08/02/2018 | + + + | Persistent proteinuria | 04/12/2018 | + + + | Type 2 diabetes mellitus with diabetic nephropathy, without | 04/12/2018 | | long-term current use of insulin (HCC) | | + + + | Urinary incontinence with continuous leakage | 04/12/2018 | + + + | Teeth decayed | 03/10/2018 | + + + | CO2 retention | 11/17/2013 | + + + | Essential (primary) hypertension | 11/17/2013 | + + + | Morbid obesity (HCC) | 11/17/2013 | + + + | ANNABEL on CPAP | 11/17/2013 | + + + Resolved Problems + + + + | Problem | Noted | Resolved | | | Date | Date | + + + + | Leukocytosis, unspecified | 11/20/19 | | | | 14 | 4 | + + + + | Acute exacerbation of COPD with asthma | 11/18/19 | | | | 14 | 4 | + + + + | Bacterial pneumonia | 11/18/19 | | | | 14 | 4 | + + + + | Hypoxia | 11/18/19 | | | | 14 | 4 | + + + + Encounters +--------+ + + + + | Date | Type | Specialty | Care Team | Description | +--------+ + + + + | 08/02/ | Office | | Ricardo Mijares MD | Essential (primary) | | 2019 | Visit | | | hypertension | | | | | | (Primary Dx); | | | | | | Nephrotic range | | | | | | proteinuria; Morbid | | | | | | obesity (HCC); Type | | | | | | 2 diabetes mellitus | | | | | | with diabetic | | | | | | nephropathy, without | | | | | | long-term current | | | | | | use of insulin | | | | | | ([facility]); Bilateral leg | | | | | | edema | +--------+ + + + + | 08/02/ | Telephone | Dianelys Anaya | | | 2019 | | | YULY Howard | | +--------+ + + + + | 07/23/ | Documentati | | Héctor | Tong Only (07/22/18) | | 2019 | on Only | | YULY Howard | | +--------+ + + + + | 07/23/ | Orders Only | | Héctor, | Persistent | | 2018 | | | YULY Howard | proteinuria; | | | | | | Essential (primary) | | | | | | hypertension; | | | | | | Urinary incontinence | | | | | | with continuous | | | | | | leakage | +--------+ + + + + | 07/20/ | Documentati | | Héctor, | Other ( | | 2019 | on Only | | YULY Howard | Retroperitoneal | | | | | | 04/27/2018) | +--------+ + + + + | 07/20/ | Telephone | Dianelys Anaya, | | | 2018 | | | YULY Howard | | +--------+ + + + + | 07/16/ | Telephone | Dianelys Anaya, | | | 2018 | | | YULY Howard | | +--------+ + + + + from Last 3 Months Immunizations + + + + | Name | Dates Previously Given | Next Due | + + + + | INFLUENZA PF, | 03/16/2017, 02/28/2016 | | | QUADRIVALENT | | | | (PED/ADOL/ADULT) | | | + + + + | INFLUENZA W/PRESERV | 02/28/2016 | | | QUADRIVALENT | | | | (MULTIDOSE) | | | + + + + | Influenza, PF | 03/01/2015, 02/21/2013 | | | Recombinant, | | | | Trivalent (Flublok) | | | + + + + | Influenza, Trivalent | 03/06/2015, 03/16/2014, 02/21/2013, | | | W/Preservative | 02/20/2011, 02/19/2009, 03/20/2008 | | + + + + | MMR | 11/25/1996 | | + + + + | Pneumococcal | 01/30/2013 | | | Conjugate 13-valent | | | + + + + | Pneumococcal | 11/18/2013, 07/02/2013 | | | Polysaccharide | | | | 23-valent | | | + + + + | Td W/o Preservative | 11/25/1996 | | | (Adol/adult) | | | + + + + Family History + + +------+ + | Medical History | Relation | Name | Comments | + + +------+ + | Diabetes | Father | | | + + +------+ + | Hypertension | Father | | | + + +------+ + | Kidney disease | Father | | | + + +------+ + | Hypertension | Mother | | | + + +------+ + | Malig hypertherm | Neg Hx | | | + + +------+ + + +------+ + + | Relation | Name | Status | Comments | + +------+ + + | Father | | Alive | | + +------+ + + | Mother | | | | + +------+ + + Social History + +-------+ +--------+------+ [...] + + + | Blood Pressure | 110/72 | 08/02/2018 11:49 AM PST | + + + + | Pulse | 68 | 08/02/2018 11:49 AM PST | + + + + | Temperature | 36.3 C (97.4 F) | 03/10/2018 5:23 PM PDT | + + + + | Respiratory Rate | 24 | 03/10/2018 6:00 PM PDT | + + + + | Oxygen Saturation | 97% | 04/12/2018 2:45 PM PST | + + + + | Inhaled Oxygen | - | - | | Concentration | | | + + + + | Weight | 177.6 kg (391 lb 9.6 | 08/02/2018 11:49 AM PST | | | oz) | | + + + + | Height | 160 cm (5' 3") | 08/02/2018 11:49 AM PST | + + + + | Body Mass Index | 69.37 | 08/02/2018 11:49 AM PST | + + + + Plan of Treatment +--------+---------+ + + + | Date | Type | Specialty | Care Team | Description | +--------+---------+ + + + | 11/08/ | Office | | Ricardo Mijares MD | | | 2019 | Visit | | [address] | | | | | | [address] [facility] | | | | | | [id number] | | | | | | | | +--------+---------+ + + + + + + + + | Health Maintenance | Due Date | Last Done | Comments | + + + + + | Diabetic Eye Exam | | | | | | 9 | | | + + + + + | Diabetic Foot Exam | | | | | | 9 | | | + + + + + | Vaccine: | | 11/25/1996 | | | Dtap/Tdap/Td (1 - | 7 | | | | Tdap) | | | | + + + + + | Cervical Cancer | | | | | Screening (Pap) | 9 | | | + + + + + | Hemoglobin A1c | | 11/17/2013, 01/12/2010 | | | | 4 | | | + + + + + | Vaccine: Influenza | | 03/16/2017, 02/19/2017, | | | (Season Ended) | 9 | 02/28/2016, Additional history | | | | | exists | | + + + + + | Vaccine: | Completed | 02/16/2018, 11/18/2013, | | | Pneumococcal 19-64 | | 07/02/2013 | | | (PPSV23 only) Medium | | | | | Risk | | | | + + + + + Procedures + +--------+ + + + | Procedure Name | Priori | Date/Time | Associated Diagnosis | Comments | | | ty | | | | + +--------+ + + + | URIC ACID | Routin | 07/22/2018 | | Results for this | | | e | 10:09 AM | | procedure are in the | | | | PST | | results section. | + +--------+ + + + | PROTEIN / CREATININE | Routin | 07/22/2018 | | Results for this | | RATIO, URINE | e | 10:09 AM | | procedure are in the | | | | PST | | results section. | + +--------+ + + + | BASIC METABOLIC | Routin | 07/22/2018 | | Results for this | | PANEL | e | 10:09 AM | | procedure are in the | | | | PST | | results section. | + +--------+ + + + | CBC W/AUTO DIFF | Routin | 07/22/2018 | | Results for this | | (REFLEX TO MANUAL) | e | 10:09 AM | | procedure are in the | | | | PST | | results section. | + +--------+ + + + | URINE MICROSCOPIC | Routin | 07/22/2018 | | Results for this | | ONLY | e | 10:09 AM | | procedure are in the | | | | PST | | results section. | + +--------+ + + + from Last 3 Months Results Protein / creatinine ratio, urine (07/22/2018 10:09 AM) + + + + + | Component | Value | Ref Range | Performed At | + + + + + | UR | 3,723.4 (A) | 0 - 150 | | | PROTEIN/CREATININE | | | | + + + + + + + | Specimen | + + | Urine - Urine, | | Unspecified Source | + + Urine microscopic only (07/22/2018 10:09 AM) + + + + + | Component | Value | Ref Range | Performed At | + + + + + | COLOR UA | Yellow | | | + + + + + | CLARITY | Slightly Cloudy | | | + + + + + | Specific Felicity, UA | 1.035 (A) | 1.005 - 1.030 | | + + + + + | LEUKOCYTE ESTERASE | Trace | | | + + + + + | NITRITE | Negative | | | + + + + + | UROBILINOGEN | Normal | | | + + + + + | PROTEIN | TraceComment: 300 | | | + + + + + | PH,URINE | 5 | 5 - 9 | | + + + + + | BLOOD | Negative | | | + + + + + | KETONES | Negative | | | + + + + + | BILIRUBIN | Negative | | | + + + + + | GLUCOSE | Trace | | | + + + + + + + | Specimen | + + | Urine | + + CBC W/Auto Diff (Reflex to Manual) (07/22/2018 10:09 AM) + + + + + | Component | Value | Ref Range | Performed At | + + + + + | WBC | 9.0 | 4.5 - 11.0 10^3/mL | | + + + + + | RBC | 4.70 | 3.8 - 5.1 10^6/ L | | + + + + + | HGB | 14.8 | 12.0 - 16.0 g/dL | | + + + + + | HCT | 45.7 (A) | 35 - 45 % | | + + + + + | MCV | 97.2 | 81 - 99 fL | | + + + + + | MCH | 31 | 27 - 33 pg | | + + + + + | MCHC | 32 | 30 - 36 g/dL | | + + + + + | PLT | 313 | 140 - 440 K/ L | | + + + + + | RDW SD | 16.6 (A) | 10.5 - 15.0 % | | + + + + + | MPV | | fL | | + + + + + | DIFF TYPE | | | | + + + + + | NEUTROPHILS | 71.3 | 39 - 80 % | | + + + + + | LYMPHOCYTES | 16.4 (A) | 24 - 44 % | | + + + + + | MONOCYTES | 7.5 | 0 - 12 % | | + + + + + | EOSINOPHILS | 4.2 | 0 - 6 % | | + + + + + | BASOPHILS | 0.6 | 0 - 2 % | | + + + + + | NEUTROPHILS ABS | | / L | | + + + + + | LYMPHOCYTES ABS | | / L | | + + + + + | MONOCYTES ABS | | / L | | + + + + + | EOSINOPHILS ABS | | / L | | + + + + + | BASOPHILS ABS | | / L | | + + + + + + + | Specimen | + + | Blood | + + Uric acid (07/22/2018 10:09 AM) + +-------+ + + | Component | Value | Ref Range | Performed At | + +-------+ + + | URIC ACID | 4.8 | 2.3 - 6.6 | | + +-------+ + + + + | Specimen | + + | Blood | + + Basic metabolic panel (07/22/2018 10:09 AM) + +---------+ + + | Component | Value | Ref Range | Performed At | + +---------+ + + | GLUCOSE | 172 (A) | 70 - 100 mg/dL | | + +---------+ + + | BUN | 14 | 6 - 23 mg/dL | | + +---------+ + + | CREATININE | 0.68 | 0.60 - 1.35 mg/dL | | + +---------+ + + | BUN/CREAT | 20.6 | 6.0 - 28.6 | | + +---------+ + + | CALCIUM | 10.1 | 8.5 - 10.3 mg/dL | | + +---------+ + + | SODIUM | 142 | 132 - 143 mmol/L | | + +---------+ + + | POTASSIUM | 4.0 | 3.6 - 5.1 mmol/L | | + +---------+ + + | CHLORIDE | 97 | 95 - 112 mmol/L | | + +---------+ + + | CO2 | 28 | 19 - 31 mmol/L | | + +---------+ + + | ANION GAP AGAP | 21.0 | 7 - 21 mmol/L | | + +---------+ + + | EGFR | 92 | 60 - 140 mg/dL | | + +---------+ + + + + | Specimen | + + | Blood | + + from Last 3 Months Insurance + +--------+ +------+-------+ + | Payer | Benefi | Subscriber | Type | Phone | Address | | | t Plan | ID | | | | | | / | | | | | | | Group | | | | | + +--------+ +------+-------+ + | MEDICAID | [employer] | [id number] | | | [address] | | | [place] | | | | [place] | | | [place] | | | | [phone] | | | [employer] | | | | | + +--------+ +------+-------+ + + +--------+ +--------+ + + | Guarantor Name | Accoun | Relation to | Date | Phone | Billing Address | | | t Type | Patient | of | | | | | | | | | | + +--------+ +--------+ + + | ASPEN JOSÉ | Person | Self [birth year] | Home: | [address] | | | al/Fam | | [phone] | [phone] [place] | | | [place] | | | [phone] | + +--------+ +--------+ + +
--- OUTSIDE RECORDS SUMMARY | ~2018-09-14 | XMS | Encounter Summary ---
Demographics + + + | Address | [address] | | | [place] [address] | + + + | Home Phone | | + + + | Preferred Language | Unknown | + + + | Marital Status | Single | + + + | Faith Affiliation | NON | + + + | Race | White | + + + | Ethnic Group | Not or | + + + Author + + + | Author | [facility] | + + + | Organization | [facility] | + + + | Address | Unknown | + + + | Phone | Unavailable | + + + Support + + +---------+ + | Name | Relationship | Address | Phone | + + +---------+ + | Jordan Aguirre | ECON | Unknown | Unavailable | + + +---------+ + Care Team Providers + +------+ + | Care Air Pollution Engineer Name | Role | Phone | + +------+ + | Iqra Peralta MD | PCP | | + +------+ + Reason for Visit Consultation (Routine) + +--------+ + + + + | Status | Reason | Specialty | Diagnoses / | Referred By | Referred To | | | | | Procedures | Contact | Contact | + +--------+ + + + + | Pending | | Cardiology | Diagnoses | [place], | [place], | | Review | | | Morbid | Yaritza Soria MD | Kath Jiménez, | | | | | obesity | [address] | PA-C [address] | | | | | (HCC) | [address] | [address] | | | | | Atrial | [place], [place] | [place] | | | | | fibrillation | [address] | [phone] | | | | | , | Phone: | Phone: | | | | | unspecified | [phone] | [phone] | | | | | type (HCC) | Fax: | Fax: | | | | | Abnormal ECG | [phone] | [phone] | | | | | | | | | | | | Hypertension | | | | | | | , | | | | | | | unspecified | | | | | | | type Type 2 | | | | | | | diabetes | | | | | | | mellitus | | | | | | | with | | | | | | | complication | | | | | | | , | | | | | | | unspecified | | | | | | | whether long | | | | | | | term | | | | | | | insulin use | | | | | | | ([facility]) | | | | | | | Procedures | | | | | | | CONSULT TO | | | | | | | CARDIOLOGY | | | + +--------+ + + + + Encounter Details +--------+---------+ + + + | Date | Type | Department | Care Team | Description | +--------+---------+ + + + | 07/09/ | Office | Cardiology General | Kath Malik | Chest pain at rest | | 2019 | Visit | at [facility] [address] | E, J[address] | (Primary Dx); | | | | [address] Mailcode: | [address] [place], | Persistent atrial | | | | [facility] | [place] [address] | fibrillation ([facility]); | | | | [facility], | [phone] | Essential | | | | [address] Floor [place], | | hypertension; | | | | [place] [address] | | Diabetes mellitus | | | | [phone] | | type 2 in obese | | | | | | ([facility]); Pre-operative | | | | | | cardiovascular | | | | | | examination | +--------+---------+ + + + Social History [...] + + + | Blood Pressure | 135/77 | 07/09/2018 1:47 PM PST | + + + + | Pulse | 91 | 07/09/2018 1:47 PM PST | + + + + | Temperature | 36.6 C (97.9 F) | 07/09/2018 1:47 PM PST | + + + + | Respiratory Rate | - | - | + + + + | Oxygen Saturation | 91% | 07/09/2018 1:47 PM PST | + + + + | Inhaled Oxygen | - | - | | Concentration | | | + + + + | Weight | 180 kg (396 lb 14.4 | 07/09/2018 1:47 PM PST | | | oz) | | + + + + | Height | 160 cm (5' 3") | 07/09/2018 1:47 PM PST | + + + + | Body Mass Index | 70.31 | 07/09/2018 1:47 PM PST | + + + + in this encounter Instructions Patient Instructions - Kath Malik PA-C - 07/09/2018 1:40 PM PST1. Your Cardiova scular risk is low. You are at risk for heart failure and your heart rate is under good cont rol with diltiazemin this encounter Progress Notes Kath Malik PA-C - 07/09/2018 1:40 PM PSTADDENDUM 07/20/18: Ms. Darden had a myoca rdial perfusion test at an outside facility that was read as low risk. I reviewed the images with Dr. Grande who also reads nuclear perfusion test and he felt that is was not low risk but suggested a antrolateral reversible defect though the data quality was low. Discussed this with Aspen and advised that we maximize her medication therapy by increasing atorvastat in to 40 mg and starting metoprolol succinate 25 mg daily. She is agrees to this plan. Fur ther intervention is not indicated since she is not symptomatic. Per Revised Cardiac Risk I ndex, her predicated risk of pre-operative cardiac mortality/morbidity is 11%. KATH MALIK PA-C CARDIOLOGY GENERAL AT [address] [place] Mailcode: [address] [phone] Kath Malik PA-C - 07/09/2018 1:40 PM PSTFormatting of this note may be differen t from the original. CARDIOLOGY ENCOUNTER NOTE Reason for Visit: This is a scheduled visit for cardiac evaluation and risk assessment. She is here with her friend. History: Per chart review: Aspen Darden is a 47 y.o. White woman with history of new onset of atri al fibrillation, HTN, DIABETES MELLITUS, ANNABEL using CPAP, morbid obesity who is referred by Jonah Venegas MD for cardiac evaluation and risk assessment for bariatric surgery. Per refer ral notes "Has hx of morbid obesity, bariatric surgery, new afib, diabetes, htn, morbid obes ity" Today, Aspen denies history of coronary artery disease; denies history of myocardial infarc tion. she denies history of congestive heart failure; she denies history of DVT/PE Aspen reports a cardiac evaluation at [facility] in [place] for dental extrac tions. She had a two day myocardial perfusion test was fine. She denies palpitations, tachy cardia, irregular heart beat, chest pain, exertional chest pain or pressure, paroxysmal noct urnal dyspnea. Her myocardial perfusion test report and images have been requested. History of Endocarditis or need for Endocarditis Prophylaxis? no History of Phen-Fen exposure? no Exercise History: She walks slowly with walker MET ASSESSMENT: < 4 METS Past Medical, Family & Social Histories: Medical, Family & Social histories were reviewed and updated in EMR based on conversation w teddy Louise, and noteable for the following: (Please see that section of the EMR for full deta ils) - all reviewed with Aspen today. Past Medical History: Diagnosis Date Abnormal ThinPrep [...] echo and chest xray findings. Followed by [facility] in [place]. Shortness of breath Thyroid disease Current Outpatient Prescriptions Medication Sig albuterol 90 mcg/actuation inhalation HFA aerosol inhaler Inhale every four hours as ne eded. atorvastatin 10 mg oral tablet Take 20 mg by mouth once daily. buPROPion XL 150 mg oral tablet extended release 24 hr take 1 tablet by mouth once frandy y WITH 300 MG TABLET buPROPion XL 300 mg oral tablet extended release 24 hr Take 300 mg by mouth once daily. Taken w/ 150mg tablet calcium citrate 200 mg elemental (950 mg total salt) oral tablet Take 2 tablets by mout h three times daily. desvenlafaxine succinate 25 mg oral tablet extended release 24 hr Take 50 mg by mouth o nce daily. dilTIAZem SR 24 hour release 360 mg oral capsule,extended release 24 hr Take 1 capsule by mouth once daily at bedtime. empagliflozin (JARDIANCE) 25 mg oral tablet Take 1 tablet by mouth once daily. ergocalciferol 50,000 unit oral capsule Take 50,000 Units by mouth three times weekly. ferrous sulfate 325 mg (65 mg iron) oral tablet Take 1 tablet by mouth two times daily. levothyroxine 75 mcg oral tablet Take 88 mcg by mouth once daily. metFORMIN 1,000 mg oral tablet Take 1,000 mg by mouth two times daily. omeprazole 20 mg oral tablet,delayed release (DR/EC) Take 1 tablet by mouth once daily. Indications: HEARTBURN pramipexole 1.5 mg oral tablet Take 1.5 mg by mouth two times daily. warfarin 5 mg oral tablet Take 5 mg by mouth once daily. No current facility-administered medications for this visit. Family History Problem Relation Diabetes Father Hypertension Father Heart Disease Father [place] 78 Hypertension Mother Obesity Mother Social History Substance Use Topics Smoking status: Former Smoker Packs/day: 0.25 Years: 16.00 Types: Cigarettes Quit date: 01/03/1999 Smokeless tobacco: Never Used Comment: quit 12 years ago Alcohol use Yes Comment: social drinks (2-3 times per year) Review of Systems: Pertinent items are noted in HPI. Physical Exam: Vitals reviewed and noted as: BP 135/77 | Pulse 91 | Temp (Src) 36.6 C (97.9 F) (Oral) | Ht 1.6 m (5' 3") | Wt 180 kg (396 lb 14.4 oz) | SpO2 91% | BMI 70.31 kg/(m^2) Body mass index is 70.31 kg/m. Vital signs reviewed. Examined in chair, unable to get on exam table General: comfortable, alert, cooperative and obese HEENT: normal conjunctivae and anicteric sclerae Neck: no jugular venous distention , trachea midline sitting upright. Heart and Lung: chest is clear without rales or wheezing and respiratory effort is unlabore d, S1, S2 normal, no S3 or S4, regular rate and rhythm , irregularly irregular rhythm and 1 + pedal edema present with brawny changes to LE bilateral warm to touch Abdomen/rectal: abdomen is soft; unable to appreciate masses, organomegaly or bruits due to body habitus Extremities: utilizing walker Neuro: no tremor Psych: bright affect, not apparently anxious or depressed, judgment and insight appropriat e in context of visit and apparently normal recent and remote memory Laboratory/Diagnostics: Per chart review, reviewed today and summarized below: Lab Results Component Value Date CHOL 209 01/20/2018 LDL 102 01/20/2018 HDL 89.2 01/20/2018 TRI 87 01/20/2018 Lab Results Component Value Date A1C 6.0 01/20/2018 Lab Results Component Value Date NA 141 01/20/2018 K 4.4 01/20/2018 CL 99 01/20/2018 BICARB 28 01/20/2018 BUN 15 01/20/2018 CR 0.65 01/20/2018 GLU 122 01/20/2018 CA 9.5 01/20/2018 ANIONGAP 18.4 01/20/2018 ANIONALBCOR 7 11/14/2015 Lab Results Component Value Date TSH 3.04 06/16/2017 Lab Results Component Value Date HB 15.2 06/16/2017 HCT 48.2 06/16/2017 PLT 399 06/16/2017 ECG 07/09/2018 (My preliminary read based on review of tracing in clinic) - Atrial fibrillati on with ventricular rate of 99 bpm Dobutamine Stress echo 08/07/14: Final Impressions: 1. At rest there is normal left ventricular systolic function. 2. EKG negative for ischemia. 3. Echo negative for ischemia. Low risk stress echo in a patient who achieved >85% MAPHR and no inducible ischemia Records reviewed from [facility] (see media tab and CareEverywhere): Echo 11/04/17: 1. This was a technically difficult study with suboptimal views due to patient's body habit us. 2. Grossly normal LV size and systolic function. Unable to comment on regional wall motion. 3. There is no pericardial effusion. Echocardiogram 11/18/2013: 1. Sinus rhythm.2. A 2-dimensional transthoracic echocardiogram with m-mode, spectral and c olor flow Doppler was perfomed.3. This was a technically difficult study with suboptimal vie ws.4. Overall left ventricular systolic function is normal with, an EF between 60 - 65 %.5. Left Ventricle ejection fraction by m-mode measures.6. No regional wall motion abnormalities .7. The diastolic filling pattern is normal for the age of the patient.8. The RV was not wel l visualized.9. The left atrial size is normal.10. , and the LA measures 3.9cm.11. The right atrium was not well visualized.12. The aortic valve is trileaflet and appears structurally normal.13. There is no evidence of aortic regurgitation.14. The mitral valve is normal.15. T he tricuspid valve appears structurally normal.16. Mild tricuspid regurgitation present.17. There is mild pulmonary hypertension.18. The right ventricular systolic pressure (pulmonary artery systolic pressure), as measured by Doppler, is 37 + 10 = 47mmHg.19. The pulmonic valv e was not well visualized.20. There is no pericardial effusion.21. No mass [id number]. Poo r visualization. Definity was used to opacify the left ventricular chamber and improve delin eation of the endocardial border. Cardiac Risk Stratification (based on 2014 ACC/AHA Guideline on Perioperative Cardiovascula r Evaluation and Management of Patients Undergoing Noncardiac Surgery): MEDICAL DECISION MAKING: Are active cardiac conditions present? No Calculate the combined surgical and patient-specific risk: RCRI risk calculator (one point for each "yes" answer) http://www.mdcalc.com/raigjsb-xpwmioi-lgku-dfbwx-ico-hxcruxdlr-risk/ A. Elevated risk surgery?: yes B. Ischemic heart disease: no C. Compensated / prior heart failure: ? Likely diastolic dysfunction D. Diabetes mellitus (treated with insulin): no E. Renal insufficiency (Cr>2): no F. Cerebrovascular disease: no Risk of MACE 0 risk factors - 0.4% 1 risk factor - 0.9% 2 risk factors - 6.6% 3 risk factors - 11% The risk of major adverse cardiac event (MACE) is: 6-7% (greater than 1%). Determine functional capacity: Functional capacity is <4 METs. However, further CAD risk s tratification would not change the decision to proceed with surgery because recent myocardia l perfusion test. Surgery Specific Risk RCRI - (intraperitoneal; intrathoracic; suprainguinal vascular) <4 MET level of Activities Assessment/Plan:: Preoperative Evaluation: Aspen Darden is a 47 y.o. White woman with history of new onset of atrial fibrillation, HTN, DIABETES MELLITUS, ANNABEL using CPAP, morbid obesity who is referred by Yaritza Venegas MD for cardiac evaluation and risk assessment for bariatric surgery. She is undergoing intermed iate risk surgery, with an exercise tolerance of <4 METs with no symptoms of chest pain or s hortness of breath which may be suggestive of ischemia. LVSF is normal. Nonspecific ST-T wav e abnormalities shown on ECG are considered minor predictors, and that while recognized as m arkers for cardiovascular disease, they have not been proven to increase perioperative risk independently. Per AHA Science Advisory on Cardiovascular Evaluation and Management of Sever john Obese Patients Undergoing Surgery (Circulation. 2009;120:86-95): Obesity cardiomyopathy, diabetic cardiomyopathy, or chronic long-standing significant myocardial ischemia (hibernat ing myocardium) may lead to heart failure in severely obese patients and should be identifie d before surgery. Physical examination often underestimates cardiac dysfunction in severely obese patients. Most patients with obesity cardiomyopathy have diastolic dysfunction, but so me patients exhibit both left ventricular diastolic and systolic dysfunction. There are nume nida respiratory abnormalities associated with obesity. The obtainment of a 12-lead ECG and a chest radiograph is reasonable in all severely obese patients under consideration for surg stevie. Per ACC/AHA guidelines, further risk stratification is not indicated prior to surgery, as results would not change perioperative management.Per Revised Cardiac Risk Index, predict ed risk of perioperative cardiac morbidity/mortality is approximately 6-7% (considered moder ate risk). Further cardiac intervention would not reduce her risk. That said, the weight los s resulting from bariatric surgery will likely give her the most benefit in reduction of fut ure risk. She has persistent atrial fibrillation with adequate rate control and is appropriately anti coagulated. She can hold warfarin for surgery and would be at a slighter higher risk for thr omboembolic events during this time. She is at risk for heart failure and her volume statu s should be closely monitored during her ambrocio-operative and post-operative time period. - Recommend she continue all blood pressure medications perioperatively, as preventing sig nificant increases in double product or cardiac workload is rutledge in preventing perioperative cardiac complications. Continue statin medication perioperatively. I discussed the implications of the preoperative evaluation with Aspen including risk strat ification. Aspen verbalized understanding of plan of care and instructions as outlined. A report of this preoperative evaluation will be sent to PCP Iqra Peralta MD and referri dana provider/surgeon Yaritza Venegas MD CARDIOLOGY - PREVENTIVE [address] Mailcode: [id number] [place] [address] in this encounter Plan of Treatment Not on fileas of this encounter Procedures + +--------+ + + + | Procedure Name | Priori | Date/Time | Associated Diagnosis | Comments | | | ty | | | | + +--------+ + + + | 12 LEAD ECG | Routin | 07/09/2018 | Chest pain at rest | Results for this | | | e | 1:57 PM | | procedure are in the | | | | PST | | results section. | + +--------+ + + + in this encounter Results 12 LEAD ECG (07/09/2018 1:57 PM) + + + + + | Component | Value | Ref Range | Performed At | + + + + + | VENTRICULAR RATE | 99 | bpm | [facility] | | | | | [facility]OLOG[facility] | + + + + + | ATRIAL RATE | 224 | ms | [facility] | | | | | [facility] | + + + + + | P-R INTERVAL | | ms | [facility] | | | | | [facility]OLOG[facility] | + + + + + | P AXIS | | deg | [facility] | | | | | [facility]OLOG[facility] | + + + + + | QRS DURATION | 95 | ms | [facility] | | | | | [facility]OLOG[facility] | + + + + + | QT | 362 | ms | [facility] | | | | | [facility]ARDIOLOG[facility] | + + + + + | QTCB | 465 | ms | [facility] | | | | | [facility]ARDIOLOG[facility] | + + + + + | R AXIS | -54 | deg | [facility] | | | | | [facility]ARDIOLOG[facility] | + + + + + | T AXIS | 50 | deg | [facility] | | | | | CARDIOLOGY | + + + + + | ECG IMPRESSION | Atrial fibrillation | | [facility] | | | | | CARDIOLOGY | + + + + + | ECG IMPRESSION | Paired ventricular | | [facility] | | | premature complexes- | | CARDIOLOGY | | | ABNORMAL ECG - | | | + + + + + | ECG IMPRESSION | Electronically signed | | [facility] | | | by: VANESSA RODRIGUEZ | | CARDIOLOGY | | | 07-09-2018 17:15:47 | | | + + + + + + + + | Narrative | Performed At | + + + | | | + + + + + + + + | Performing | Address | City/State/Zipcode | Phone Number | | Organization | | | | + + + + + | [facility] | [address] | [place], [place] | | | CARDIOLOGY | [address] | [phone] | | + + + + + in this encounter Visit Diagnoses + + | Diagnosis | + + | Chest pain at rest - Primary | + + | Chest pain, unspecified | + + | Persistent atrial fibrillation (HCC) | + + | Atrial fibrillation | + + | Essential hypertension | + + | Diabetes mellitus type 2 in obese (HCC) | + + | Type II or unspecified type diabetes mellitus without mention of complication, not | | stated as uncontrolled | + + | Pre-operative cardiovascular examination | + +
--- OUTSIDE RECORDS SUMMARY | ~2018-09-14 | XMS | Encounter Summary ---
Demographics + + + | Address | [address] | | | [place] [address] | + + + | Home Phone [...] + + + | Author | [facility] | + + + | Organization | 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 | | [address] | | absorption; H/O | | | | [place], [place] | | bariatric surgery; | | | | [address] | | Diabetes mellitus | | | | [phone] | | type 2, | | | [...] | 3.50 - 10.80 K/cu mm | [facility] | | | | | SERVICES, CORE | + + + + + | RED CELL COUNT | 4.85 | 4.00 - 5.20 M/cu mm | [facility] | | | | | SERVICES, CORE | + + + + + | HEMOGLOBIN | 15.1 | 12.0 - 16.0 g/dL | [facility] | | | | | SERVICES, CORE | + + + + + | HEMATOCRIT | 47.8 (H) | 36.0 - 46.0 % | [facility] | | | | | SERVICES, CORE | + + + + + | MCV | 98.6 | 80.0 - 100.0 fL | [facility] | | | [...] | 0.00 - 0.02 K/cu mm | [facility] | | | | | SERVICES, MIR | + + + + + + + | Specimen | + + | Blood - Blood | + + + + + + + | Performing | Address | City/State/Zipcode | Phone Number | | Organization | | | | + + + + + | [facility] | [address] | [place] [address] | | | SERVICES, MIR | [address] | | | + + + + + HEMOGLOBIN A1C, BLOOD (07/09/2018 4:20 PM) + + + + + | Component | Value | Ref Range | Performed At | + + + + + | HEMOGLOBIN A1C | 6.2 (H)Comment: Hgb A1C | <5.7 % | [facility] | | | Interpretive | | [...] | [facility] | | considered for monitoring pneumatic tube repairer glycemic control in patients with: | LABORATORY [...] LABORATORY | [address] | [place] [address] | | | SERVICES, SPECIAL | [address] [...] | + + + + + | [facility] | [address] | [place] [address] | | | SERVICES, CORE | [address] | | | + + + + + VITAMIN B-12 (07/09/2018 4:20 PM) + +-------+ + + | Component | Value | Ref Range | Performed At | + +-------+ + + | VITAMIN B12 | 583 | 193 - 986 pg/mL | [facility] | | | | | SERVICES, CORE | + +-------+ + + + + | Specimen | + + | Blood - Blood | + + + + + + + | Performing | Address | City/State/Zipcode | Phone Number | | Organization | | | | + + + + + | [facility] [employer] | [address] | [place] [address] | | | SERVICES, CORE | [address] [...] | | | | | determined by [employer] | | | | | Laboratories. See | | | | | Compliance Statement B: | | | | | ividence.American Board of Addiction Medicine (ABAM)/CSPerformed | | | | | by [employer],[address] | | | | | [address] [facility] | | | | | [address] | | | | | [phone].ividence. | | | | | [facility] MD, | | | | | Lab. Director | | | + + + + + + + | Specimen | + + | Blood - Blood | + + + + + + + | Performing | Address | City/State/Unm Psychiatric Centercode | Phone Number | | Organization | | | | + + + + + | [facility] | [address] | [place], [place] | | | UNIV PTH - INTFC | | [address] | | + + + + + PTH, SERUM (07/09/2018 4:20 PM) + +-------+ + + | Component | Value | Ref Range | Performed At | + +-------+ + + | PTH, SERUM | 74 | 18 - 88 pg/mL | [facility] | | | | | SERVICES, CORE | + +-------+ + + + + | Specimen | + + | Blood - Blood | + + + + + + + | Performing | Address | City/State/Zipcode | Phone Number | | Organization | | | | + + + + + | [facility] | [address] | [place] [address] | | | SERVICES, CORE | [address] [...] | | | | | determined by [place] | | | | | Laboratories. See | | | | | Compliance Statement B: | | | | | ividence.American Board of Addiction Medicine (ABAM)/CSPerformed | | | | | by [facility],[address] | | | | | [address] [facility],[place] | | | | | [address] | | | | | [email or web address]. | | | | | [facility] hospital[facility]ker MD, | | | | | Lab. Director | | | + + + + + + + | Specimen | + + | Blood - Blood | + + + + + + + | Performing | Address | City/State/Unm Psychiatric Centercode | Phone Number | | Organization | | | | + + + + + | [facility] | [address] | [place], [place] | | | UNIV PTH - INTFC | | [address] | | + + + + + [...] | + + + + + | [facility] | [address] | [place] [address] | | | SERVICES, CORE | NANCY [...] LABORATORY | [address] | [place] [address] | | | SERVICES, SPECIAL | [address] | | | | IMM + COAG | | | | + + + + + FERRITIN (07/09/2018 4:20 PM) + + + + + | Component | Value | Ref Range | Performed At | + + + + + | FERRITIN | 53Comment: Male and | 50 - 200 ng/mL | [facility] | | | Female >18 years: [...] | + + + + + | [facility] | [address] | [place] [address] | | | SERVICES, CORE | [address] [...] LABORATORY | | (LAB) | | | TAVARES, CORE | + +---------+ + + | EGFR - | >60 | >60 mL/min | [facility] | | LIBYAN | | | TAVARES, CORE | + +---------+ + + | EGFR NON | >60 | >60 mL/min | [facility] | | -LIBYAN | | | [facility], CORE | + +---------+ + + | [...] LABORATORY | | CORRECTED) | | | [facility] | + +---------+ + + | BILIRUBIN TOTAL | 0.4 | 0.3 - 1.2 mg/dL | [facility] | | | | | SERVICES, [facility] | + +---------+ + + | TOTAL PROTEIN, | 7.7 | 6.4 - 8.2 g/dL | [facility] | | PLASMA (LAB) | | | [facility] | + +---------+ + + | ALBUMIN, PLASMA | 3.6 | 3.5 - 4.7 g/dL | [facility] | | (LAB) | | | [facility] | + +---------+ + + | ALK [...] LABORATORY | | CORRECTED) | | | [facility], CORE | + +---------+ + + | [...] [facility] | [address] | [place] [address] | | | MIR CHAPIN | [address] [...]
--- OUTSIDE RECORDS SUMMARY | ~2018-09-14 | XMS | Encounter Summary ---
Demographics + + + | Address | [address] | | | [place] [address] | + + + | Home Phone | | + + + | Preferred Language | Unknown | + + + | Marital Status | Single | + + + | Baptist Affiliation | NON | + + + [...] Team Providers + +------+ + | Care Security Associate Name | Role | Phone | + +------+ + | Iqra Peralta MD | PCP | | + +------+ + Encounter Details +--------+ + + + + | Date | Type | Department | Care Team | Description | +--------+ + + + + | 09/03/ | MyClolat | [facility] Comprehensive | Ramona Sunshine | RE:Recommendations | | 2019 | Encounter | Pain Center at | W, PhD [address] | | | | | [facility] | Ave [place], [place] | | | | | [address] | [address] | | | | | Mail Code: CH15P | [phone] | | | | | [facility] | | | | | | and , | | | | | | Floor [place], [place] | | | | | | [address] | | | | | | [phone] | | | +--------+ + + + [...] Treatment Not on fileas of this encounter Visit Diagnoses Not on filein this encounter"
--- OUTSIDE RECORDS SUMMARY | ~2018-09-14 | XMS | Encounter Summary ---
Demographics + + + | Address | [address] | | | [place] [address] | + + + | Home Phone [...] Author + + + | Author | [facility] | + + + | Organization | [facility] | + + + | Address | Unknown | + + + | Phone | Unavailable | + + + Support + + +---------+ + | Name | Relationship | Address | Phone | + + +---------+ + | Jordan Aguirre | ECON | Unknown | Unavailable | + + +---------+ + Care Team Providers + +------+ + | Care Trouble Clerk Name | Role | Phone | [...] [address] | | | | | | [facility] | | | | | | [place], [place] | | | | | | [address] | | | +--------+ + + + [...]
--- OUTSIDE RECORDS SUMMARY | ~2018-09-14 | XMS | Encounter Summary ---
Demographics + + + | Address | [address] | | | [place] [address] | + + + | Home Phone [...] Author + + + | Author | [facility] | + + + | Organization | [facility] | + + + | Address | Unknown | + + + | Phone | Unavailable | + + + Support + + +---------+ + | Name | Relationship | Address | Phone | + + +---------+ + | Jordan Aguirre | ECON | Unknown | Unavailable | + + +---------+ + Care Team Providers + +------+ + | Care Wood Panel Inspector Name | Role | Phone | + +------+ + | Iqra Peralta MD | PCP | | + +------+ + Encounter Details +--------+ + + + + | Date | Type | Department | Care Team | Description | +--------+ + + + + | 09/02/ | MyChart | [facility] Comprehensive | Ramona Sunshine | RE:Question | | 2019 | Encounter | Pain Center at | W, PhD [address] | | | | | [facility] | Ave [place], [place] | | | | | [address] | [address] | | | | | Mail Code: CH15 | [phone] | | | | | [facility] | | | | | | and Healing, | | | | | | [place], [place] | | | | | | [address] | | | | | | [phone] | | | +--------+ + + + [...]
--- OUTSIDE RECORDS SUMMARY | ~2018-09-14 | XMS | Encounter Summary ---
Demographics + + + | Address | [address] | | | [place] [address] | + + + | Home Phone | | + + + | Preferred Language | Unknown | + + + | Marital Status | Single | + + + | Amish Affiliation | NON | + + + | Race | White | + + + | Ethnic Group | Not or | + + + Author + + + | Author | [facility] | + + + | Organization | [facility] | + + + | Address | Unknown | + + + | Phone | Unavailable | + + + Support + + +---------+ + | Name | Relationship | Address | Phone | + + +---------+ + | Jordan Aguirre | ECON | Unknown | Unavailable | + + +---------+ + Care Team Providers + +------+ + | Care Loss Prevention Associate Name | Role | Phone | + +------+ + | Iqra Peralta MD | PCP | | + +------+ + Encounter Details +--------+ + + + + | Date | Type | Department | Care Team | Description | +--------+ + + + + | 07/22/ | Abstract | Cardiology | Juan Antonio Mclaughlin, | | | 2019 | | Preventive at [facility] | [address] | | | | | [address] | [facility] [place] | | | | | Mailcode: [id number] | [address] | | | | | [facility] | [phone] | | | | | and Healing | | | | | | [place], [place] | | | | | | [address] | | | | | | [phone] | | | +--------+ + + + [...]
--- OUTSIDE RECORDS SUMMARY | ~2018-09-14 | XMS | Encounter Summary ---
Demographics + + + | Address | [address] | | | [place] [address] | + + + | Home Phone [...] + + + | Author | [facility] | + + + | Organization | [facility] | + + + | Address | Unknown | + + + | Phone | Unavailable | + + + Support + + +---------+ + | Name | Relationship | Address | Phone | + + +---------+ + | Jordan Aguirre | ECON | Unknown | Unavailable | + + +---------+ + Care Team Providers + +------+ + | Care Distributor Of Directories Name | Role | Phone | + [...] [address] | | | | | | [facility] | | | | | | [place], [place] | | | | | | [address] | | | +--------+ + + + [...]
--- OUTSIDE RECORDS SUMMARY | ~2018-09-14 | XMS | Encounter Summary ---
Demographics + + + | Address | [address] | | | [place] [address] | + + + | Home Phone [...] Author + + + | Author | [facility] | + + + | Organization | [facility] | + + + | Address | Unknown | + + + | Phone | Unavailable | + + + Support + + +---------+ + | Name | Relationship | Address | Phone | + + +---------+ + | Jordan Aguirre | ECON | Unknown | Unavailable | + + +---------+ + Care Team Providers + +------+ + | Care Computer Networker Name | Role | Phone | + [...] | | | | | | | [facility] Center | | | | | | | for Health | | | | | | | and Healing | | | | | | | [place], [place] | | | | | | | [address] | | | | | | | Phone: | | | | | | | [phone] | | | | | | | Fax: | | | | | | | [phone] | +--------+--------+ + + + + Encounter Details +--------+---------+ + + + | Date | Type | Department | Care Team | Description | +--------+---------+ + + + | 07/09/ | Office | Digestive Health | [address] | Morbid obesity with | | 2019 | Visit | Center at [facility] | [address] | BMI of 60.0-69.9, | | | | Floor [address] | [place], | adult (HCC) (Primary | | | | Ave Mailcode: | [place] [address] | Dx); S/P | | | | [facility] Center for | | laparoscopic sleeve | | | | Health and Healing | | gastrectomy; | | | | [facility] [place] | | Diabetes mellitus | | | | [address] | | type 2, | | | | [phone] | | diet-controlled | | | | | | (HCC) | +--------+---------+ + + [...] + + + + | Weight | 179.4 kg (395 lb 8 | 07/09/2018 1:05 PM PST | | | oz) | | + + + + | Height | - | - | + + + + | Body Mass Index | 70.06 | 07/09/2018 1:05 PM PST | + + + + in this encounter Progress Notes Margot Contreras, JAYJAY - 07/09/2018 1:00 PM PSTFormatting of this note may be different from [place]. Nutrition Counseling: Post-op Bariatric Surgery Follow-Up [place]: [place] [address] Documented time of visit: 1:04 to 1:29 (25 minutes ehkq-kh-aayk with patient) Surgery: Sleeve Gastrectomy Date of Surgery: 02/07/15 Subjective: Following up from visit with Dr. Venegas - possible revision from Sleeve to Bypa ss. Needs to lose weight (hepatomegaly resulted in previous surgery being aborted followed b y an incomplete procedure) Any reported changes: no n/v/c/d Tolerating Bariatric Diet: Yes Current Physical Activity: walking Changes in Diabetes Medications since surgery: Metformin Testing blood glucose: Once in a while Objective: Ht Readings from Last 1 Encounters: 02/26/18 1.6 m (5' 3") Wt Readings from Last 2 Encounters: 07/09/18 179.4 kg (395 lb 8 oz) 02/26/18 178.9 kg (394 lb 4.8 oz) Ht Readings from Last 1 Encounters: 02/25/16 [...] of surgery ~414# Body mass index is 70.06 kg/m. Weight change since surgery: lost ~20lbs PMHx: Past Medical History: Diagnosis Date Abnormal [...] echo and chest xray findings. Followed by rubber calender helper in [place]. Shortness of breath Thyroid disease Food logs: no Food choices: B: Swedish yogurt ([employer]ik[employer]) and a cup of coffee with Splenda L: Goes to [employer] ([employer]) & has lunch at the [employer] - "whatever they have to off er" or a can of soup D: Chicken or fish or beef + green beans and potato Snacks - crackers at center she spends time at Fluid choices: tea Supplementation: MVI - Women's one a Day, Citracal Petites, Iron 2x/day, Vit D 3x/week. Lab s today Assessment: Receptive to suggestions made today. Following Bariatric Diet Protocol: Yes Meeting protein goals: Appears to be Meeting fluid goals: Yes Fluids from meals: Yes Plan: Reviewed nutrition goals after bariatric surgery. Aim for 64 ounces of fluid and 60-80 grams of protein per day. 1. Liver Shrinking Diet (Alternative Plate Method) 2. Will plan on partial meal replacement diet if plan if for revision - [facility] and instructions Continue to increase physical activity. Follow up as needed. Margot Contreras RD, [facility], LD [facility] Bariatrics [phone] in this encounter Plan of Treatment Not on fileas of this encounter Procedures + +--------+ + + + | Procedure Name | Priori | Date/Time | Associated Diagnosis | Comments | | | ty | | | | + +--------+ + + + | [place] MNT RE-ASSESSMNT | Routin | 07/09/2018 | Morbid obesity | | | X15MIN | e | 3:26 PM | with BMI of | | | | | PST | 60.0-69.9, adult | | | | | | ([facility]) S/P | | | | | | laparoscopic sleeve | | | | | | gastrectomy | | | | | | Diabetes mellitus | | | | | | type 2, | | | | | | diet-controlled | | | | | | ([facility]) | | + +--------+ + + + in this encounter Visit Diagnoses + + | Diagnosis | + + | Morbid obesity with BMI of 60.0-69.9, adult (HCC) - Primary | + + | S/P laparoscopic sleeve gastrectomy | + + | Diabetes mellitus type 2, diet-controlled (HCC) | + + | Type II or unspecified type diabetes mellitus without mention of complication, not | | stated as uncontrolled | + +
--- OUTSIDE RECORDS SUMMARY | ~2018-09-14 | XMS | Encounter Summary ---
Demographics + + + | Address | [address] | | | [place] [address] | + + + | Home Phone | | + + + | Preferred Language | Unknown | + + + | Marital Status | Single | + + + | Anglican Affiliation | NON | + + + | Race | White | + + + | Ethnic Group | Not or | + + + Author + + + | Author | [facility] | + + + | Organization | [facility] | + + + | Address | Unknown | + + + | Phone | Unavailable | + + + Support + + +---------+ + | Name | Relationship | Address | Phone | + + +---------+ + | Jordan Aguirre | ECON | Unknown | Unavailable | + + +---------+ + Care Team Providers + +------+ + | Care Structural Rigger Name | Role | Phone | + [...] | | | | | | | [facility] Center | | | | | | | for Health | | | | | | | and Healing | | | | | | | [place], [place] | | | | | | | [address] | | | | | | | Phone: | | | | | | | [phone] | | | | | | | Fax: | | | | | | | [phone] | +--------+--------+ + + + + Encounter Details +--------+---------+ + + + | Date | Type | Department | Care Team | Description | +--------+---------+ + + + | 07/09/ | Office | Digestive Health | [address] | Morbid obesity with | | 2019 | Visit | Center at [facility] 6th | [address] | BMI of 60.0-69.9, | | | | Floor [address] | [place], | adult (HCC) (Primary | | | | Ave Mailcode: | [place] [address] | Dx); S/P | | | | [facility] Center for | | laparoscopic sleeve | | | | Health and Healing | | gastrectomy; | | | | [facility] [place] | | Diabetes mellitus | | | | [address] | | type 2, | | | | [phone] | | diet-controlled | | | | [...] Patient referred by: [place] [id number] Documented time of visit: 1:04 to 1:29 (25 minutes tyiv-nj-foaf with patient) Surgery: Sleeve Gastrectomy Date of [...] echo and chest xray findings. 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 Shortness of breath Thyroid disease Food logs: no Food choices: B: Romanian yogurt (Oikos) and a cup of coffee with Splenda L: Goes to [facility] ([employer]) & has lunch at the [employer] - "whatever they have to off er" [...] - will need to follow up via [facility] with dates and instructions Continue to increase physical activity. Follow up as needed. Margot Contreras RD, [facility], [facility] Bariatrics [phone] in this encounter Plan of Treatment Not on fileas of this encounter Procedures + +--------+ + + + | Procedure Name | Priori | Date/Time | Associated Diagnosis | Comments | | | ty | | | | + +--------+ + + + | [place] MNT RE-ASSESSMNT | Routin | 07/09/2018 | Morbid obesity | | | X15MIN | e | 3:26 PM | with BMI of | | | | | PST | 60.0-69.9, adult | | | | | | ([facility]) S/P | | | | | | laparoscopic sleeve | | | | | | gastrectomy | | | | | | Diabetes mellitus | | | | | | type 2, | | | | | | diet-controlled | | | | | | ([facility]) | | + +--------+ + + [...]
--- OUTSIDE RECORDS SUMMARY | ~2018-09-14 | XMS | Encounter Summary ---
Demographics + + + | Address | [address] | | | [place] [address] | + + + | Home Phone | | + + + | Preferred Language | Unknown | + + + | Marital Status | Single | + + + | Rastafarian Affiliation | Unknown | + + + | Race | Unknown | + + + | Ethnic Group | Unknown | + + + Author + + + | Author | [facility] | + + + | Organization | [facility] | + + + | Address | Unknown | + + + | Phone | Unavailable | + + + Support + + +---------+ + | Name | Relationship | Address | Phone | + + +---------+ + | An Carlin | ECON | , [place] | | + + +---------+ + Care Team Providers + +------+ + | Care Plastic Cablemaking Machine Operator Name | Role | Phone [...] (primary) | | | | [place] [address] | | hypertension; | | | | [phone] | | Urinary incontinence | | | [...] | | | | | | [address] | | | | | | [address] | | | | | | | [...]
--- OUTSIDE RECORDS SUMMARY | ~2018-09-14 | XMS | Encounter Summary ---
Demographics + + + | Address | [address] | | | [place] [address] | + + + | Home Phone | | + + + | Preferred Language | Unknown | + + + | Marital Status | Single | + + + | Confucianist Affiliation | Unknown | + + + | Race | Unknown | + + + | Ethnic Group | Unknown | + + + Author + + + | Author | [facility] | + + + | Organization | [facility] | + + + | Address | Unknown | + + + | Phone | Unavailable | + + + Support + + +---------+ + | Name | Relationship | Address | Phone | + + +---------+ + | An Carlin | ECON | , [place] | | + + +---------+ + Care Team Providers + +------+ + | Care Photo Lab Specialist Name | Role | Phone | [...] (primary) | | | | [place] [address] | | hypertension; | | | | [phone] | | Urinary incontinence | | | [...] | | | | | | [address] | | | | | | [address] | | | | | | | [...]
--- OUTSIDE RECORDS SUMMARY | ~2018-09-14 | XMS | Clinical Summary ---
Demographics + + + | Address | [address] | | | [place] [address] | + + + | Home Phone | | + + + | Preferred Language | Unknown | + + + | Marital Status | Single | + + + | Evangelical Affiliation | Unknown | + + + | Race | Unknown | + + + | Ethnic Group | Unknown | + + + Author + + + | Author | [facility] | | | and [place] | + + + | Organization | [facility] | | | [...] Providers + +------+ + | Care Certified Medical Asst Name | Role | Phone | + [...] | Obstructive Sleep | Device | | 20 | | [...] mg by mouth | | 0 | 09/1 | | Activ | | 40 mg [...] e Sleep Apnea | Device | | 6/20 | | e | | s: Obstructive [...] | mouth at bedtime | | | 620 | | e | | capsule | [...] tablet | Twice Daily. | | | 7/20 | | e | | | | | | 18 | | | + + + +---------+------+------+-------+ | gabapentin | Take 100 mg by mouth | | 0 | 12/1 | | Activ | | (NEURONTIN) 100 mg | 3 times daily. | | | 7/20 | | e | | capsule | | | | 18 | | | + + + +---------+------+------+-------+ | | Take 1 tablet by | | 0 | 12/0 | | Activ | | HYDROcodone-acetamin | mouth Twice Daily. | | | 01/18 | | e | | ophen (NORCO) 5-325 | | | | 18 | | | | mg per tablet | | | | | | | + + + +---------+------+------+-------+ | levothyroxine | Take 88 mcg by mouth | | 0 | 12 | | Activ | | (SYNTHROID) 88 [...] mg tablet | Daily. | | | 01/18 | | e | | | | [...] Noted Date | + + + | Gastroesophageal reflux [...] | | TRIVALENT(PED/ADOL/A | | | | DULShiva), PSKT | | | + + + [...] | Blood Pressure | 140/80 | 01/21/2018 1500 PDT | + + + + | Pulse | 94 | 05/31/2018 1327 PST | + + + + | Temperature | 36.9 C (98.4 F) | 12/22/2014 2353 PDT | + + + + | Respiratory Rate | 18 | 01/21/2018 1500 PDT | + + + + | Oxygen Saturation | 97% | 05/31/2018 1327 PST | + + + + | Inhaled Oxygen | - | - | | Concentration | | | + + + + | Weight | 181.8 kg (400 lb | 05/31/20181326 PST | | | 12.7 oz) | | + + + + | Height | 160 cm (5' 3") | 05/31/20181326 PST | + + + + | Body Mass Index | 71 | 05/31/20181326 PST | + + + + Plan of Treatment +--------+---------+ + + + | Date | Type | Specialty | Care Team | Description | +--------+---------+ + + + | 10/19/ | Office | | Jermaine Fairchild | | | 2018 | Visit | | MD [facility] | | | | | | [address] | | | | | | [place] [address] | | | | | | [phone] | | | | | | | [...] + + | Hemoglobin A1c | | 10/01/2016 | | | Screening | 7 | | | + + + + + | Vaccine: Influenza | Completed | 02/16/2018, 03/16/2017, | | | | | 02/19/2017, Additional history | | | | | exists | | + + + + + | Vaccine: | Completed | 02/16/2018, 11/18/2013, | | | Pneumococcal 19-64 | | 07/02/2013, Additional history | | | Highest Risk | | exists | | + + [...] | [employer] | MODA | [id number] | 11/30/19 | [phone] | | Medica | | MEDICAID HMO [...] + +--------+ +--------+ + + | Aspen Darden | Person | Self | [birth year] | [address] | | | al/Fam | | 1971 | [phone] | [place] | | | kevin | | | 4 (Home) | [address] | + +--------+ +--------+ + + Advance Directives Patient has advance care planning documents on file. For more information, please contact:[facility] [place] [address]
--- OUTSIDE RECORDS SUMMARY | ~2018-09-14 | XMS | Encounter Summary ---
Demographics + + + | Address | [address] | | | [place] [address] | + + + | Home Phone | | + + + | Preferred Language | Unknown | + + + | Marital Status | Single | + + + | Mosque Affiliation | NON | + + + | Race | White | + + + | Ethnic Group | Not or | + + + Author + + + | Author | [facility] | + + + | Organization | [facility] | + + + | Address | Unknown | + + + | Phone | Unavailable | + + + Support + + +---------+ + | Name | Relationship | Address | Phone | + + +---------+ + | Jordan Aguirre | ECON | Unknown | Unavailable | + + +---------+ + Care Team Providers + +------+ + | Care Billet Heater Name | Role | Phone | + [...] 2019 | | [facility] | [facility] [address] | | | | | [place] at | [facility], | | | | | [place] [address] | [place] [address] | | | | | [address] | [phone] | | | | | [place], [place] | | | | | | [address] | | | | | | [phone] | | | +--------+ + + + [...]
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
--- OUTSIDE RECORDS SUMMARY | ~2018-09-14 | XMS | Encounter Summary ---
Demographics + + + | Address | [address] | | | [place] [address] | + + + | Home Phone | | + + + | Preferred Language | Unknown | + + + | Marital Status | Single | + + + | Mandaen Affiliation | Unknown | + + + | Race | Unknown | + + + | Ethnic Group | Unknown | + + + Author + + + | Author | [email or web address] | + + + | Organization | [email or web address] | + + + | Address | Unknown | + + + | Phone | Unavailable | + + + Support + + +---------+ + | Name | Relationship | Address | Phone | + + +---------+ + | An Carlin | ECON | , [place] | | + + +---------+ + Care Team Providers + +------+ + | Care Wire Coating Machine Operator Name | Role | Phone [...] | | 2019 | on Only | [place] [address] | [address] | Retroperitoneal | | | | [address] | | 04/27/2018) | | | | [place] [address] | | | | | | [phone] | | | +--------+ + + + [...] | | | | | | [address] | | | | | | [address] | | | | | | | | +--------+---------+ + + + as of this encounter Visit Diagnoses Not on filein this encounter"
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
--- OUTSIDE RECORDS SUMMARY | ~2018-09-14 | XMS | Encounter Summary ---
Demographics + + + | Address | [address] | | | [place] [address] | + + + | Home Phone [...] Author + + + | Author | [facility] | + + + | Organization | [facility] | + + + | Address | Unknown | + + + | Phone | Unavailable | + + + Support + + +---------+ + | Name | Relationship | Address | Phone | + + +---------+ + | Jordan Aguirre | ECON | Unknown | Unavailable | + + +---------+ + Care Team Providers + +------+ + | Care Network Cable Installer Name | Role | Phone | + +------+ + | Iqra Peralta MD | PCP | | + +------+ + Encounter Details +--------+ + + + + | Date | Type | Department | Care Team | Description | +--------+ + + + + | 07/20/ | Metal Dresser | Cardiology in | Kath Boyle | | | 2019 | | [facility] | JULIETA Jim[place]nez [address] | | | | | [place] at | [place], | | | | | [place] [address] | [place] [address] | | | | | [address] | [phone] | | | | | [place], [place] | | | | | | [address] | | | | | | [phone] | | | +--------+ + + + [...]
--- OUTSIDE RECORDS SUMMARY | ~2018-09-14 | XMS | Clinical Summary ---
Demographics + + + | Address | [address] | | | [place] [address] | + + + | Home Phone | | + + + | Preferred Language | Unknown | + + + | Marital Status | Single | + + + | Evangelical Affiliation | Unknown | + + + | Race | Unknown | + + + | Ethnic Group | Unknown | + + + Author + + + | Author | [facility] | + + + | Organization | [facility] | + + + | Address | Unknown | + + + | Phone | Unavailable | + + + Support + + +---------+ + | Name | Relationship | Address | Phone | + + +---------+ + | An Carlin | ECON | , [place] | | + + +---------+ + Care Team Providers + +------+ + | Care Slot Machine Floor Person Name | Role | Phone | + [...] | | (FORM[facility]LY [facility]); Bilateral leg | | | | | [...] | | | | | | [address] | | | | | | [address] | | | | | | | [...] + + + + + | Specific [place], UA | 1.035 (A) | 1.005 - [...] +------+-------+ + | MEDICAID | [place] | [id number] | | | [address] | | | N | | | | [place] | | | [place] | | | | [address] | | | WINDING INSPECTOR AND TESTER | | | | | + +--------+ [...] Self | [birth year] | Home: | [address] | | | al/Fam | | 1971 | [phone] | [place] | | | [place] | | | [address] | [phone] | + +--------+ +--------+ + +
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
--- OUTSIDE RECORDS SUMMARY | ~2018-09-14 | XMS | Encounter Summary ---
Demographics + + + | Address | [address] | | | [place] [address] | + + + | Home Phone [...] Author + + + | Author | [facility] | + + + | Organization | [facility] | + + + | Address | Unknown | + + + | Phone | Unavailable | + + + Support + + +---------+ + | Name | Relationship | Address | Phone | + + +---------+ + | Jordan Aguirre | ECON | Unknown | Unavailable | + + +---------+ + Care Team Providers + +------+ + | Care Construction Project Administrator Name | Role | Phone | + +------+ + | Iqra Peralta MD | PCP | | + +------+ + Encounter Details +--------+ + + + + | Date | Type | Department | Care Team | Description | +--------+ + + + + | 08/05/ | MyChart | [facility] | Mily Love, | RE: Appt aproval | | 2019 | Encounter | 15th Floor [address] | Kofi Moya, PhD [address] | | | | | [address] | [address] | | | | | Code: [facility] | [place], [place] | | | | | for Health and | [address] | | | | | Healing, 15th Floor | [phone] | | | | | [place], [place] | | | | | | [address] | | | | | | [phone] | | | +--------+ + + + [...]
--- OUTSIDE RECORDS SUMMARY | ~2018-09-14 | XMS | Encounter Summary ---
Demographics + + + | Address | [address] | | | [place] [address] | + + + | Home Phone | | + + + | Preferred Language | Unknown | + + + | Marital Status | Single | + + + | Latter-Day Affiliation | Unknown | + + + | Race | Unknown | + + + | Ethnic Group | Unknown | + + + Author + + + | Author | [facility] | + + + | Organization | [email or web address] | + + + | Address | Unknown | + + + | Phone | Unavailable | + + + Support + + +---------+ + | Name | Relationship | Address | Phone | + + +---------+ + | An Carlin | ECON | , [place] | | + + +---------+ + Care Team Providers + +------+ + | Care Education Administrative Assistant Name | Role | Phone | + +------+ + | Iqra Peralta MD | PCP | | + +------+ + Encounter Details +--------+---------+ + + + | Date | Type | Department | Care Team | Description | +--------+---------+ + + + | 08/02/ | Office | [facility] | Ricardo Mijares MD | Essential (primary) | | 2019 | Visit | [address] | [address] | hypertension | | | | [address] | [address] [place], [place] | (Primary Dx); | | | | [place] [address] | [phone] | Nephrotic range | | | | [phone] | | proteinuria; Morbid | | | | | | obesity (HCC); Type | | | | | | 2 diabetes mellitus | | | | | | with diabetic | | | | | | nephropathy, without | | | | | | long-term current | | | | | | use of insulin | | | | | | (HCC); Bilateral leg | | | | | | edema | +--------+---------+ + + + Social History [...] AM PST | + + + + in this encounter Instructions Patient Instructions - Ricardo Mijares MD - 08/02/2018 11:40 AM PSTDiscussions/Recommendatio ns: I discussed today with Ms. Darden the meaning of her severe proteinuria and the interactio n of that with her diabetes, hypertension & morbid obesity. I stressed the importance of keeping her BP & BG controlled and avoiding getting dehydra laurel if we are to have a chance at helping preserve her renal function. She showed good unde rstanding. I gave her instructions on how to chart her blood pressure in the appropriate manner at home. she is to call us if they fall outside of the optimal provided range. She will bring her sphygmomanometer for validation once a year. She will strictly abide by a low salt diet and will avoid all kinds of NSAIDs for analge luis. Also: I increased her Losartan to 25 mg twice a day for now. I sent her for a BMP in 1 week. she will bring me back her home BP charts in 1 week. At that time, I will decide whether any changes to her vasoactive regimen are warranted. I asked her to elevate her legs for 1 hour twice a day. She knows that she still needs t o be active and ambulatory carefully as possible. She will F/U with your office regularly. She will have a BMP, CBC, urinalysis, Urine total shkmfjv-fp-hdhiooewsd ratio before she comes back in 3 months.in this encounter Progress Notes Ricardo Mijares MD - 08/02/2018 11:40 AM PSTFormatting of this note may be different from th e original. Patient Active Problem List Diagnosis CO2 retention Essential (primary) hypertension Morbid obesity (HCC) ANNABEL on CPAP Teeth decayed Persistent proteinuria Type 2 diabetes mellitus with diabetic nephropathy, without long-term current use of in sulin (HCC) Urinary incontinence with continuous leakage Dear Dr Peralta: I saw your patient Ms. Darden in the office today. As you are familiar with her case, I will not state her past history in detail. Briefly, she is a 47 y.o. female patient with past h istory as delineated above; she is here to be evaluated for her severe proteinuria. She re calls she had proteinuria back in 1995. On 01/20/18, her proteinuria was at 3228 mg/g. She tells me she had her gastric lap band in 2003; she gained her wt back since 2011. In 2014 michael jaeger had a gastric sleeve. No wt loss after that. The patient has history of hypertension since 1995, Diabetes Mellitus since 2014; her BG a nd BP control has been reportedly adequate; she took Naproxen #3 tablets a day for 1 month i n early 2017; otherwise, she denies any history of prolonged exposure to NSAIDs or recent ex posure to known nephrotoxins; she denies any recurrent nephrolithiasis or pyelonephritis; mil tells me that she's had no history of urinary retention, gross hematuria or dysuria. she h as continuous incontinence symptoms. No symptoms of UTI; she has 2 nightly nocturia. No hi story of passing kidney stones. she has no foamy urine either. her baseline Creatinine is 0. 6. There is no family history of renal genetic diseases such as PKD. she says that she feels 'good ' today; she denies any blurred vision tinnitus, headache, f ever, chills, or cough. No nausea, vomiting, abdominal pain, diarrhea, melena, or hematoche becky. No chest pain, palpitation, dizziness, loss of consciousness, orthopnea, paroxysmal no cturnal dyspnea; she has had chronic GROSSMAN & leg edema. The following portions of the patient's history were reviewed and updated as appropriate: a llergies, current medications, past medical history, past social history, past surgical hist ory, family history and problem list. I also reviewed with her the report of her U/S from 04/2018, showing no evidence of any sig nificant renal anatomic abnormalities. As in History of Present Illness & in Assessment. All the pertinent systems were reviewed a nd were otherwise negative. Current Outpatient Prescriptions Medication Sig Dispense Refill albuterol (PROVENTIL HFA;VENTOLIN HFA) 108 (90 Base) MCG/ACT inhaler Inhale 2 puffs int o the lungs every 4 (four) hours as needed for Wheezing. atorvastatin (LIPITOR) 10 MG tablet Take 40 mg by mouth every morning. beclomethasone (QVAR) 80 MCG/ACT inhaler Inhale 1 puff into the lungs 2 (two) times bruna ly. buPROPion (WELLBUTRIN XL) 150 MG 24 hr tablet Take 150 mg by mouth every morning. buPROPion (WELLBUTRIN XL) 300 MG 24 hr tablet Take 300 mg by mouth every morning. diltiazem (CARDIZEM CD) 360 MG 24 hr capsule Take 360 mg by mouth nightly. Empagliflozin (JARDIANCE) 25 MG TABS Take 25 mg by mouth daily. Ergocalciferol (VITAMIN D2 PO) Take 50,000 Units by mouth. Thursday, Thursday, Thursday ferrous sulfate, 65 FE, 325 (65 FE) MG EC tablet Take 65 mg of iron by mouth 2 (two) ti mes daily with meals. hydrOXYzine (VISTARIL) 25 MG capsule Take 25 mg by mouth 3 (three) times daily as neede d for Itching. ipratropium-albuterol (DUO-NEB) 0.5-2.5 mg/3mL Take 3 mLs by nebulization every 6 (six) hours as needed. 360 mL 0 levothyroxine (SYNTHROID) 88 MCG tablet Take 88 mcg by mouth every morning before break fast. LORazepam (ATIVAN) 0.5 MG tablet Take 0.5 mg by mouth every 6 (six) hours as needed for Anxiety. losartan (COZAAR) 25 MG tablet Take 1 tablet by mouth daily. 30 tablet 11 metFORMIN (GLUCOPHAGE) 1000 MG tablet Take 1,000 mg by mouth 2 (two) times daily with m eals. metoprolol (TOPROL-XL) 25 MG 24 hr tablet Take 25 mg by mouth daily. omeprazole (PRILOSEC) 20 MG capsule Take 20 mg by mouth every morning before breakfast. pramipexole (MIRAPEX) 1.5 MG tablet Take 1.5 mg by mouth 2 (two) times daily. warfarin (COUMADIN) 5 MG tablet Take 10 mg by mouth daily. gabapentin (NEURONTIN) 100 MG capsule Take 100 mg by mouth 3 (three) times daily. Oxygen (outpatient therapy) Inhale 2 L into the lungs continuous. No current facility-administered medications for this visit. Physical Exam: BP 110/72 (BP Location: Right upper arm, Patient Position: Sitting) | Pulse 68 | Ht 1.6 m (5' 3") | Wt 177.6 kg (391 lb 9.6 oz) | BMI 69.37 kg/m General appearance: Pleasant, not in acute distress. Neck: Supple without tracheal deviation or jugular venous distension. Head and ENT: Head is atraumatic. The oropharynx is without erythema or thrush. Eyes: Anicteric. The extraocular muscle movements are normal. Lungs: Clear to auscultation bilaterally. There are no wheezes. Heart: Regular rate and rhythm without any rub, gallop. No murmur. Abdominal exam: Severely obese. Soft and nontender with normal bowel sounds. Musculoskeletal: No costovertebral angle tenderness bilaterally. Extremities: Warm to touch with 1+ leg edema. There is no cyanosis. Skin: There are no rashes, petechiae, or ecchymosis. Neurological: Awake, alert, and oriented to time, place, and person. Normal gross motor po wer. There is no asterixis. Psychiatric: The patient s behavior is normal. Judgment and thought content are normal. Lab Results Component Value Date BUN 14 07/22/2018 CREATININE 0.68 07/22/2018 EGFR 92 07/22/2018 NA 142 07/22/2018 K 4.0 07/22/2018 CL 97 07/22/2018 CO2 28 07/22/2018 CA 10.1 07/22/2018 PHOS 3.6 04/12/2018 MG 2.0 11/18/2013 ALB 3.6 04/12/2018 HGB 14.8 07/22/2018 URICACID 4.8 07/22/2018 WBC 9.0 07/22/2018 HCT 45.7 (A) 07/22/2018 FERRITIN 54.59 10/21/2017 LABIRON 80 (A) 10/21/2017 LABPROT 3,723.4 (A) 07/22/2018 [id number] 45 01/20/2018 Assessment: Ms. Darden is a 47 y.o. female patient with stage I CKD on a background of morbid obesity + a more recent diagnosis of diabetes; her hypertension could be playing a role too. RENAL FUNCTION: Normal GFR BLOOD PRESSURE: Reports it controlled BLOOD SUGAR: Reports it controlled ELECTROLYTES: normal ANEMIA: none VITAMIN D: Deficiency is treated PARATHYROID HORMONE: To be checked later when indicated URIC ACID: ok PROTEINURIA: Severe; nephrotic range URINALYSIS: No UTI or hematuria VOLUME STATUS: Euvolumic. Discussions/Recommendations: I discussed today with Ms. Darden the meaning of her severe proteinuria and the interactio n of that with her diabetes, hypertension & morbid obesity. I stressed the importance of keeping her BP & BG controlled and avoiding getting dehydra laurel if we are to have a chance at helping preserve her renal function. She showed good unde rstanding. I gave her instructions on how to chart her blood pressure in the appropriate manner at home. she is to call us if they fall outside of the optimal provided range. She will bring her sphygmomanometer for validation once a year. She will strictly abide by a low salt diet and will avoid all kinds of NSAIDs for analge luis. Also: I increased her Losartan to 25 mg twice a day for now. I sent her for a BMP in 1 week. she will bring me back her home BP charts in 1 week. At that time, I will decide whether any changes to her vasoactive regimen are warranted. I asked her to elevate her legs for 1 hour twice a day. She knows that she still needs t o be active and ambulatory carefully as possible. She will F/U with your office regularly. She will have a BMP, CBC, urinalysis, Urine total lppfznt-zj-dhqwmmqdrv ratio before she comes back in 3 months. 15 minutes of this 25-minute visit was spent in education and counseling. Thank you Dr Peralta for the opportunity to see this patient in F/U today. Please do not hesi renee to call me at any time with questions or concerns. Truly yours, Ricardo Mijares MD [facility] in this encounter Plan of Treatment +--------+---------+ + + + | Date | Type | Specialty | Care Team | Description | +--------+---------+ + + + | 11/08/ | Office | Nephrology | Ricardo Mijares MD | | | 2019 | Visit | | [address] | | | | | | [address] | | | | | | [address] | | | | | | | | +--------+---------+ + + + as of this encounter Visit Diagnoses + + | Diagnosis | + + | Essential (primary) hypertension - Primary | + + | Unspecified essential hypertension | + + | Nephrotic range proteinuria | + + | Proteinuria | + + | Morbid obesity (HCC) | + + | Morbid obesity | + + | Type 2 diabetes mellitus with diabetic nephropathy, without long-term current use of | | insulin (HCC) | + + | Bilateral leg edema | + + | Edema | + +
--- OUTSIDE RECORDS SUMMARY | ~2018-09-14 | XMS | Encounter Summary ---
Demographics + + + | Address | [address] | | | [place] [address] | + + + | Home Phone | | + + + | Preferred Language | Unknown | + + + | Marital Status | Single | + + + | Mandaen Affiliation | NON | + + + | Race | White | + + + | Ethnic Group | Not or | + + + Author + + + | Author | [facility] | + + + | Organization | [facility] | + + + | Address | Unknown | + + + | Phone | Unavailable | + + + Support + + +---------+ + | Name | Relationship | Address | Phone | + + +---------+ + | Jordan Aguirre | ECON | Unknown | Unavailable | + + +---------+ + Care Team Providers + +------+ + | Care Registered Nurse Practitioner Name | Role | Phone | [...] | | [facility] | [address] | | | | | [place] [facility] | [address] [place], | | | | | [place] [address] | [place] [address] | | | | | [address] | [phone] | | | | | [place], [place] | | | | | | [address] | | | | | | [phone] | | | +--------+ + + + [...]
--- OUTSIDE RECORDS SUMMARY | ~2018-09-14 | XMS | Encounter Summary ---
Demographics + + + | Address | [address] | | | [place] [address] | + + + | Home Phone | | + + + | Preferred Language | Unknown | + + + | Marital Status | Single | + + + | Faith Affiliation | Unknown | + + + | Race | Unknown | + + + | Ethnic Group | Unknown | + + + Author + + + | Author | [facility] | + + + | Organization | [facility] | + + + | Address | Unknown | + + + | Phone | Unavailable | + + + Support + + +---------+ + | Name | Relationship | Address | Phone | + + +---------+ + | An Carlin | ECON | , [place] | | + + +---------+ + Care Team Providers + +------+ + | Care Commercial Electrician Name | Role | Phone | + [...] | | | | | [place] [address] | | | | | | [phone] | | | +--------+ + + + [...] [place] | | | | | | [id number] | | | | | | | [...] + + + + + | Specific [place], UA | 1.035 (A) | 1.005 - [...]
--- OUTSIDE RECORDS SUMMARY | ~2018-09-14 | XMS | Encounter Summary ---
Demographics + + + | Address | [address] | | | [place] [address] | + + + | Home Phone [...] Author + + + | Author | [facility] | + + + | Organization | [facility] | + + + | Address | Unknown | + + + | Phone | Unavailable | + + + Support + + +---------+ + | Name | Relationship | Address | Phone | + + +---------+ + | Jordan Aguirre | ECON | Unknown | Unavailable | + + +---------+ + Care Team Providers + +------+ + | Care Family Medicine Physician Assistant Name | Role | Phone | + +------+ + | Iqra Peralta MD | PCP | | + +------+ + Encounter Details +--------+ + + + + | Date | Type | Department | Care Team | Description | +--------+ + + + + | 07/16/ | MyChart | Digestive Health | [address] | RE:Multivitamin | | 2019 | Encounter | Center at [facility] [address] | [address] | | | | | Floor [address] | [address], | | | | | [place] Mailcode: | [place] [address] | | | | | [facility] | | | | | | [facility] and Healing | | | | | | [place], [place] | | | | | | [address] | | | | | | [phone] | | | +--------+ + + + [...]
--- OUTSIDE RECORDS SUMMARY | ~2018-09-14 | XMS | Encounter Summary ---
Demographics + + + | Address | [address] | | | [place] [address] | + + + | Home Phone | | + + + | Preferred Language | Unknown | + + + | Marital Status | Single | + + + | Jew Affiliation | Unknown | + + + | Race | Unknown | + + + | Ethnic Group | Unknown | + + + Author + + + | Author | [facility] | + + + | Organization | [facility] | + + + | Address | Unknown | + + + | Phone | Unavailable | + + + Support + + +---------+ + | Name | Relationship | Address | Phone | + + +---------+ + | An Carlin | ECON | , [place] | | + + +---------+ + Care Team Providers + +------+ + | Care Front Desk Assistant Name | Role | Phone | + +------+ + | qIra Peralta MD | PCP | | + +------+ + Encounter Details +--------+ + + + + | Date | Type | Department | Care Team | Description | +--------+ + + + + | 08/02/ | Telephone | [facility] | [place], | | | 2018 | | [address] | [address] | | | | | [address] | | | | | | [place] [address] | | | | | | [phone] | | | +--------+ + + + [...] [place] | | | | | | [id number] | | | | | | | [...]
--- OUTSIDE RECORDS SUMMARY | ~2018-09-14 | XMS | Encounter Summary ---
Demographics + + + | Address | [address] | | | [place] [address] | + + + | Home Phone | | + + + | Preferred Language | Unknown | + + + | Marital Status | Single | + + + | Amish Affiliation | Unknown | + + + | Race | Unknown | + + + | Ethnic Group | Unknown | + + + Author + + + | Author | [facility] | + + + | Organization | [facility] | + + + | Address | Unknown | + + + | Phone | Unavailable | + + + Support + + +---------+ + | Name | Relationship | Address | Phone | + + +---------+ + | An Carlin | ECON | , [place] | | + + +---------+ + Care Team Providers + +------+ + | Care Radar Operator Name | Role | Phone | [...] | | | | | [place] [address] | | | | | | [phone] | | | +--------+ + + + [...] [place] | | | | | | [id number] | | | | | | | | +--------+---------+ + + + as of this encounter Visit Diagnoses Not on filein this encounter"
--- OUTSIDE RECORDS SUMMARY | ~2018-09-14 | XMS | Encounter Summary ---
Demographics + + + | Address | [address] | | | [place] [address] | + + + | Home Phone | | + + + | Preferred Language | Unknown | + + + | Marital Status | Single | + + + | Zoroastrian Affiliation | NON | + + + | Race | White | + + + | Ethnic Group | Not or | + + + Author + + + | Author | [facility] | + + + | Organization | [facility] | + + + | Address | Unknown | + + + | Phone | Unavailable | + + + Support + + +---------+ + | Name | Relationship | Address | Phone | + + +---------+ + | Jordan Aguirre | ECON | Unknown | Unavailable | + + +---------+ + Care Team Providers + +------+ + | Care Photofinishing Laboratory Worker Name | Role | Phone | + +------+ + | Iqra Peralta MD | PCP | | + +------+ + Encounter Details +--------+ + + + + | Date | Type | Department | Care Team | Description | +--------+ + + + + | 07/09/ | Telephone | [facility] | Yaritza Venegas, | | | 2019 | | Center at [facility] 6th | MD Yvon Bacon | | | | | Floor [address] | [place], [place] | | | | | Arleen Mailcode: CH4 | [address] | | | | | [facility] | [phone] | | | | | and Leandro, 6th | | | | | | floor [place], [place] | | | | | | [address] | | | | | | | [...] Not on fileas of this encounter Results VITAMIN D, 25-HYDROXY, [...] | + + + + + | [facility] | [address] | [place] [address] | | | SERVICES, CORE | [address] | | | + + + + + VITAMIN B-12 (07/09/2018 4:20 PM) + +-------+ + + | Component | Value | Ref Range | Performed At | + +-------+ + + | VITAMIN B12 | 583 | 193 - 986 pg/mL | [facility] | | | | | SERVICES, MIR | + +-------+ + + + + | Specimen | + + | Blood - Blood | + + + + + + + | Performing | Address | City/State/Zipcode | Phone Number | | Organization | | | | + + + + + | [facility] | [address] | [place] [address] | | | SERVICES, MIR | [address] | | | + + + + + VITAMIN B1, WHOLE BLOOD (07/09/2018 4:20 PM) + + + + + | Component | Value | Ref Range | Performed At | + + + + + | VITAMIN B1, WHOLE | 142Comment: INTERPRETIVE | 70 - 180 nmol/L | [facility] | | BLOOD | [...] | | | | | determined by [facility] | | | | | Laboratories. See | | | | | Compliance Statement B: | | | | | eBureau/CSPerformed | | | | | by ePropertyData,[address] | | | | | [place], [place] | | | | | [address] | | | | | [phone]. | | | | | PeopleAdmin, Iker Angelo MD, | | | | [...] [facility] | [address] | [place], [place] | | | UNIV PTH - INTFC | | [address] | | + + + + + [...] LABORATORY | [address] | [place] [address] | | | SERVICES, MIR | [address] | | | + + + + + METHYLMALONIC ACID, SERUM (07/09/2018 4:20 PM) + + + + + | Component | Value | Ref Range | Performed At | + + + + + | METHYLMALONIC ACID | 0.18Comment: | 0.00 - 0.40 umol/L | [facility] | | | INTERPRETIVE | | UNIV PTH - | | | INFORMATION: MMA | | INTFC | | | Serum/Plasma, | | | | | | | | | | | | | | | Vitamin B12 Status | | | | | Test developed and | | | | | characteristics | | | | | determined by [facility] | | | | | Laboratories. See | | | | | Compliance Statement B: | | | | | Atlante[employer]rek.PeopleAdmin/CSPerformed | | | | | by ePropertyData,[address] | | | | | [facility],[place] | | | | | [address] | | | | | [phone]. | | | | | [facility] hospital[facility] MD, | | | | | [...] [facility] | [address] | [place], [place] | | | UN[facility] PTH - INTFC | | [address] | | + + + + + IRON AND TIBC (07/09/2018 4:20 PM) + +--------+ + + | Component | Value | Ref Range | Performed At | + +--------+ + + | IRON | 49 | 30 - 160 ug/dL | [facility] | | | | | SERVICES, CORE | + +--------+ + + | IRON BIND CAP | 413 | 240 - 450 ug/dL | [facility] | | | | | SERVICES, CORE | + +--------+ + + | % SATURATION | 12 (L) | 20 - 50 % | [facility] | | TRANSFERRIN, | | | SERVICES, CORE | + +--------+ + + + + | Specimen | + + | Blood - Blood | + + + + + + + | Performing | Address | City/State/Zipcode | Phone Number | | Organization | | | | + + + + + | [facility] | [address] | [place] [address] | | | SERVICES, CORE | [address] | | | + + + + + HOMOCYSTEINE TOTAL, PLASMA (07/09/2018 4:20 PM) + + + + + | Component | Value | Ref Range | Performed At | + + + + + | HOMOCYSTEINE,PLASMA, | 16.5 (H) | 3.5 - 10.4 umol/L | [facility] | | TOTAL | [...] | + + + + + | [facility] | [address] | [place] [address] | | | SERVICES, SPECIAL | [address] | | | | IMM + COAG | | | | + + + + + FERRITIN (07/09/2018 4:20 PM) + + + + + | Component | Value | Ref Range | Performed At | + + + + + | FERRITIN | 53Comment: Male and | 50 - 200 ng/mL | [facility] | | | Female >18 years: [...] LAWS | [address] | [place] [address] | | | MIR CHAPIN | [address] | | | + + + + + COMPLETE METABOLIC SET (NA,K,CL,CO2,BUN,CREAT,GLUC,CA,AST,ALT,BILI TOTAL,ALK PHOS,ALB,PROT TOTAL) (07/09/2018 4:20 PM) + +---------+ + + | Component | Value | Ref Range | Performed At | + +---------+ + + | GLUCOSE, PLASMA | 121 (H) | 70 - 99 mg/dL | [facility] | | (LAB) | | | TAVARES CORE | + +---------+ + + | BUN, PLASMA (LAB) | 12 | 6 - 20 mg/dL | [facility] | | | | | SERVICES, CORE | + +---------+ + + | CREATININE PLASMA | 0.64 | 0.60 - 1.10 mg/dL | [facility] | | (LAB) | | | SERVICES, CORE | + +---------+ + + | EGFR - | >60 | >60 mL/min | [facility] | | KYRGYZ | | | SERVICES, CORE | + +---------+ + + | EGFR NON | >60 | >60 mL/min | [facility] | | -KYRGYZ | | | SERVICES, CORE | + [...] Shannon CMNT | No Hemo | | [facility] | | | | | SERVICES, [...] + + + | [facility] | [address] | [place] [address] | | | SERVICES, CORE | [address] [...]
--- OUTSIDE RECORDS SUMMARY | ~2018-09-14 | XMS | Encounter Summary ---
Demographics + + + | Address | [address] | | | [place] [address] | + + + | Home Phone | | + + + | Preferred Language | Unknown | + + + | Marital Status | Single | + + + | Pentecostalism Affiliation | NON | + + + [...] Team Providers + +------+ + | Care Change Consultant Name | Role | Phone | [...] Moya, PhD | | | | | ([facility]) | [address] | [address] | | | | | Procedures | [place], [place] | [address] | | | | | CONSULT TO | [address] | [place], [place] | | | | | PAIN | Phone: | [phone] | | | | | MANAGEMENT | | Phone: | | | | | | Fax: | [phone] | | | | | | [phone] | Fax: | | | | | | | [phone] | +--------+---------+ + + + + Encounter Details +--------+---------+ + + + | Date | Type | Department | Care Team | Description | +--------+---------+ + + + | 08/30/ | Office | [facility] | Ramona Landry | Morbid obesity with | | 2018 | Visit | 15th Floor [address] | Ross, PhD [address] | BMI of 60.0-69.9, | | | | [address] | Ave [place], [place] | adult ([facility]) (Primary | | | | Code: [facility] | [address] | Dx); S/P | | | | for Health and | [phone] | laparoscopic sleeve | | | | Healing, 15th Floor | | gastrectomy; | | | | [place], [place] | | Depression, | | | | [address] | | controlled; History | | | | [phone] | | of posttraumatic | | | [...] Date of : 1970 Consulting Psychologist: RAMONA LANDRY, PHD Referring Provider: Yaritza Venegas Chief Complaint: morbid obesity Date of service: 08/30/2018 BMI: . 67.4 kg/m (08/30/2018) (380.7 lbs), Ht: 5'3 Weighed today at [facility] clinic 70.06 kg/m 07/09/18 (395 lb 8 oz) Weighed at [facility] visit Proposed Surgery: possible revision from Sleeve to Bypass History of two prior surgeries, gastric banding- revised x1, removed 2011; and, sleeve marcus rectomy-02/07/2015 (See Dr. Venegas's note for more details 02/26/2018) Identifying Information: Aspen Darden is a 47 y.o. female who lives alone in [facility]. She was referred for psychological evaluation prior [...] a typical day involves going to the [employer], and she reports getting out of the house (even in snow) to go and this has improved her mood and well-being. 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 She [...] and adequate social supp ort. The Aide [employer] [place] appears to be very instrumental to her [...] after daniella fall. Education and Profession: receives [employer]. 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 She stopped working in this setting when her daughter was born very premature and she did not feel she could leave her. 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 3. She should continue to follow the geospatial extractor analysis's recommendations. 4. She is urged to establish a clear routine for physical activity that she can begin now and continue after surgery. 5. She is urged to participate in a Bariatric Surgery Support Group. 6. She needs to increase her water intake. 7. She needs to follow-up with me via [employer] in 4 weeks to update progress on the above re commendations. Total time I spent with the patient was approximately 60 minutes [id number]-rw-avfn with the uday ent, and approximately 15 minutes of administering testing and 1 hour and 40 minutes of non- qyay-sw-isez interpreting and synthesizing results. Ramona Landry, PhD [facility] [address]TH FLOOR [address] Mail Code: [address] [place] [address] in this encounter Plan of Treatment Not on fileas of this encounter Procedures + +--------+ + + + | Procedure Name | Priori | Date/Time | Associated Diagnosis | Comments | | | ty | | | | + +--------+ + + + | MD | Routin | 09/03/2018 | Morbid obesity [...] | + +--------+ + + + | MD PSYCHOLOGICAL | Routin | 09/03/2018 | Morbid [...] | + +--------+ + + + | MD PSYCHOLOGICAL | Routin | 09/03/2018 | Morbid [...]
--- OUTSIDE RECORDS SUMMARY | ~2018-09-14 | XMS | Encounter Summary ---
Demographics + + + | Address | [address] | | | [place] [address] | + + + | Home Phone [...] Author + + + | Author | [facility] | + + + | Organization | [facility] | + + + | Address | Unknown | + + + | Phone | Unavailable | + + + Support + + +---------+ + | Name | Relationship | Address | Phone | + + +---------+ + | Jordan Aguirre | ECON | Unknown | Unavailable | + + +---------+ + Care Team Providers + +------+ + | Care Screen Printing Supervisor Name | Role | Phone | + +------+ + | Iqra Peralta MD | PCP | | + +------+ + Encounter Details +--------+ + + + + | Date | Type | Department | Care Team | Description | +--------+ + + + + | 07/22/ | Abstract | Cardiology | Juan Antonio Mclaughlin, | | | 2019 | | Preventive at [facility] | [address] | | | | | [address] | [facility] [place] | | | | | Mailcode: [id number] | [address] | | | | | [facility] | [phone] | | | | | and Healing | | | | | | [place], [place] | | | | | | [address] | | | | | | [phone] | | | +--------+ + + + [...]
--- OUTSIDE RECORDS SUMMARY | ~2018-09-14 | XMS | Encounter Summary ---
Demographics + + + | Address | [address] | | | [place] [address] | + + + | Home Phone [...] Team Providers + +------+ + | Care Leave Coordinator Name | Role | Phone | [...] | absorption; H/O | | | | [place], [place] | | bariatric surgery; | | | | [address] | | Diabetes mellitus | | | | [phone] | | type 2, | | | [...] | 0.00 - 0.02 K/cu mm | [facility] | | | | | SERVICES, MIR | + + + + + + + | Specimen | + + | Blood - Blood | + + + + + + + | Performing | Address | City/State/Zipcode | Phone Number | | Organization | | | | + + + + + | [facility] | [address] | [place] [address] | | | SERVICES, MIR | [address] | | | + + + + + HEMOGLOBIN A1C, BLOOD (07/09/2018 4:20 PM) + + + + + | Component | Value | Ref Range | Performed At | + + + + + | HEMOGLOBIN A1C | 6.2 (H)Comment: Hgb A1C | <5.7 % | [facility] | | | Interpretive [...] | [facility] | | considered for monitoring equipment operator intermodal yard glycemic control in patients with: | LABORATORY [...] LABORATORY | [address] | [place] [address] | | | SERVICES, SPECIAL | [address] [...] | + + + + + | [facility] | [address] | [place] [address] | | | SERVICES, CORE | [address] | | | + + + + + VITAMIN B-12 (07/09/2018 4:20 PM) + +-------+ + + | Component | Value | Ref Range | Performed At | + +-------+ + + | VITAMIN B12 | 583 | 193 - 986 pg/mL | [facility] | | | | | SERVICES, CORE | + +-------+ + + + + | Specimen | + + | Blood - Blood | + + + + + + + | Performing | Address | City/State/Zipcode | Phone Number | | Organization | | | | + + + + + | [facility] [employer] | [address] | [place] [address] | | | SERVICES, CORE | [address] [...] | | | | | determined by [employer] | | | | | Laboratories. See | | | | | Compliance Statement B: | | | | | judo.Fixed - Parking Tickets/CSPerformed | | | | | by [employer],[address] | | | | | [facility],[place] | | | | | [address] | | | | | [phone]. | | | | | [facility] center[facility]ker MD, | | | | | Lab. Director | | | + + + + + + + | Specimen | + + | Blood - Blood | + + + + + + + | Performing | Address | City/State/[facility] Cent[facility]ode | Phone Number | | Organization | | | | + + + + + | [facility] | [address] | [place], [place] | | | UNIV PTH - INTFC | | [address] | | + + + + + PTH, SERUM (07/09/2018 4:20 PM) + +-------+ + + | Component | Value | Ref Range | Performed At | + +-------+ + + | PTH, SERUM | 74 | 18 - 88 pg/mL | [facility] | | | | | SERVICES, CORE | + +-------+ + + + + | Specimen | + + | Blood - Blood | + + + + + + + | Performing | Address | City/State/Zipcode | Phone Number | | Organization | | | | + + + + + | [facility] | [address] | [place] [address] | | | SERVICES, CORE | [address] [...] Statement B: | | | | | judo.Fixed - Parking Tickets/CSPerformed | | | | | by [facility],[address] | | | | | [facility],[place] | | | | | [address] | | | | | [phone]. | | | | | [facility] center[facility]ker MD, | | | | | Lab. Director | | | + + + + + + + | Specimen | + + | Blood - Blood | + + + + + + + | Performing | Address | City/State/[facility] Centercode | Phone Number | | Organization | | | | + + + + + | [facility] | [address] | [place], [place] | | | UN[facility] P[facility] - INTFC | | [address] | | + + + + + [...] | + + + + + | [facility] | [address] | [place] [address] | | | SERVICES, CORE | [address] [...] LABORATORY | [address] | [place] [address] | | | SERVICES, SPECIAL | [address] | | | | IMM + COAG | | | | + + + + + FERRITIN (07/09/2018 4:20 PM) + + + + + | Component | Value | Ref Range | Performed At | + + + + + | FERRITIN | 53Comment: Male and | 50 - 200 ng/mL | [facility] | | | Female [...] | + + + + + | [facility] | [address] | [place] [address] | | | SERVICES, CORE | [address] [...] >60 mL/min | [facility] | | [place] | | | TAV[place]ES, CORE | + +---------+ + + | EGFR NON | >60 | >60 mL/min | [facility] | | -[place] | | | [facility], CORE | + +---------+ + + [...] LABORATORY | | CORRECTED) | | | [facility] | + +---------+ + + | BILIRUBIN TOTAL | 0.4 | 0.3 - 1.2 mg/dL | [facility] | | | | | SERVICES, [facility] | + +---------+ + + | TOTAL PROTEIN, | 7.7 | 6.4 - 8.2 g/dL | [facility] | | PLASMA (LAB) | | | [facility] | + +---------+ + + | ALBUMIN, PLASMA | 3.6 | 3.5 - 4.7 g/dL | [facility] | | (LAB) | | | [facility] | + +---------+ + + | ALK [...] LABORATORY | | CORRECTED) | | | [facility], CORE | + +---------+ + + [...] | + + + + + | [facility] | [address] | [place] [address] | | | MIR [address] | [address] [...]
--- OUTSIDE RECORDS SUMMARY | ~2018-09-14 | XMS | Encounter Summary ---
Demographics + + + | Address | [address] | | | [place] [address] | + + + | Home Phone | | + + + | Preferred Language | Unknown | + + + | Marital Status | Single | + + + | Zoroastrianism Affiliation | Unknown | + + + | Race | Unknown | + + + | Ethnic Group | Unknown | + + + Author + + + | Author | [facility] | + + + | Organization | [facility] | + + + | Address | Unknown | + + + | Phone | Unavailable | + + + Support + + +---------+ + | Name | Relationship | Address | Phone | + + +---------+ + | An Carlin | ECON | , [place] | | + + +---------+ + Care Team Providers + +------+ + | Care Network Internship Name | Role | Phone | + [...] | | | | | [place] [address] | | | | | | [phone] | | | +--------+ + + + [...] [place] | | | | | | [id number] | | | | | | | | +--------+---------+ + + + as of this encounter Visit Diagnoses Not on filein this encounter"
--- OUTSIDE RECORDS SUMMARY | ~2018-09-14 | XMS | Encounter Summary ---
Demographics + + + | Address | [address] | | | [place] [address] | + + + | Home Phone | | + + + | Preferred Language | Unknown | + + + | Marital Status | Single | + + + | Jehovah'S Witness Affiliation | NON | + + + [...] Providers + +------+ + | Care Wellness Specialist Name | Role | Phone | [...] 2019 | | [facility] | [facility] [address] | | | | | [place] at | [address] [place], | | | | | [place] [address] | [place] [address] | | | | | [address] | [phone] | | | | | [place], [place] | | | | | | [address] | | | | | | [phone] | | | +--------+ + + + [...]
--- OUTSIDE RECORDS SUMMARY | ~2018-09-14 | XMS | Encounter Summary ---
Demographics + + + | Address | [address] | | | [place] [address] | + + + | Home Phone | | + + + | Preferred Language | Unknown | + + + | Marital Status | Single | + + + | Muslim Affiliation | Unknown | + + + | Race | Unknown | + + + | Ethnic Group | Unknown | + + + Author + + + | Author | [facility] | + + + | Organization | [facility] | + + + | Address | Unknown | + + + | Phone | Unavailable | + + + Support + + +---------+ + | Name | Relationship | Address | Phone | + + +---------+ + | An Carlin | ECON | , [place] | | + + +---------+ + Care Team Providers + +------+ + | Care Mingle Operator Name | Role | Phone | [...] | | | | | [place] [address] | | | | | | [phone] | | | +--------+ + + + [...] [place] | | | | | | [address] | | | | | | | [...] + + + + + | Specific [place], [place] | 1.035 (A) | 1.005 - [...]
--- OUTSIDE RECORDS SUMMARY | ~2018-09-14 | XMS | Clinical Summary ---
Demographics + + + | Address | [address] | | | [place] [address] | + + + | Home Phone [...] Providers + +------+ + | Care [employer] Senior Officer Name | Role | Phone | + +------+ + | Iqra Peralta MD | PP | | + +------+ + Source Comments SHERIE is fully live on both [facility] Ambulatory and [facility] InPatient.[facility] Allergies + + + + + + [...] BMI of 60.0-69.9, adult ([facility]) | 02/25/2016 | + + + + [...] | 2018 | Visit | | PhD Rsos | BMI of 60.0-69.9, | | | [...] + + + + | 07/20/ | Relay Record Clerk | | Kath Boyle | | | [...] | | ([facility]) | +--------+ + + + + | 07/09/ | Office | | Juan Antonio Mclaughlin, | S/P laparoscopic | 2018 | Visit | | MD | sleeve gastrectomy | | | | | | (Primary Dx); Morbid | | | | | | obesity with BMI of | | | | | | 60.0-69.9, adult | | | | | | ([facility]); Diabetes | | | | | | [...] | | | | | | fibrillation ([facility]); | | | | | | Essential [...] | | | adult ([facility]) (Primary | | | | | | [...] | Heart Disease | Father | | [place] 76 | + + +------+ + | [...] / Lot | + +------+--------+ +--------+--------+--------+ | Henryetta Seamguard Implanted: | | N/A: | | | 09/28/ | 12BSGE | | Qty: 4 on 02/07/2015 by | | Moises | | | 2017 | [id number] / | | Dori Reed MD | | n | | | | | | | | | | | | /[id number] | | | | | | | | 329 | + +------+--------+ +--------+--------+--------+ | Henryetta SeamguardImplanted: Qty: | | N/A: | | | 08/29/ | 12BSGE | | 2 on 02/07/2015 by Dianelys Reed Abdommil | | | 2017 | [id number] / | | Dori Ferris MD | | n | | | | | | | | | | | | /[id number] | | | | | | | | 327 | + +------+--------+ +--------+--------+--------+ Procedures + +--------+ + + + | Procedure Name | Priori | Date/Time | Associated Diagnosis | Comments | | | ty | | | | + +--------+ + + + | RI | Routin | 09/03/2018 | Morbid obesity | | | PSYCHOLOGICAL/NEUROP | e | 3:35 PM | with BMI of | | | SYCHOLOGICAL TEST | | PDT | 60.0-69.9, adult | | | QHP; FIRST 30 MIN | | | ([facility]) S/P | | | | | | laparoscopic sleeve | | | | | | gastrectomy | | | | | | Depression, | | | | | | controlled History | | | | | | of posttraumatic | | | | | | stress disorder | | | | | | (PTSD) | | + +--------+ + + + | RI PSYCHOLOGICAL | Routin | 09/03/2018 | Morbid obesity | | | TESTING EVAL QHP; EA | e | 3:35 PM | with BMI of | | | ADDL HOUR | | PDT | 60.0-69.9, adult | | | | | | ([facility]) S/P | | | | | | laparoscopic sleeve | | | | | | gastrectomy | | | | | | Depression, | | | | | | controlled History | | | | | | of posttraumatic | | | | | | stress disorder | | | | | | (PTSD) | | + +--------+ + + + | RI PSYCHOLOGICAL | Routin | 09/03/2018 | Morbid obesity | | | TESTING EVAL QHP; | e | 3:35 PM | with BMI of | | | FIRST HOUR | | PDT | 60.0-69.9, adult | | | | | | ([facility]) S/P | | | | | | [...] | + +--------+ + + + | RI MNT RE-ASSESSMNT | Routin | 07/09/2018 | Morbid obesity | | | X15MIN | e | 3:26 PM | with BMI of | | | | | PST | 60.0-69.9, adult | | | | | | ([facility]) S/P | | | | | | laparoscopic sleeve | | | | | | gastrectomy | | | | | | Diabetes mellitus | | | | | | type 2, | | | | | | diet-controlled | | | | | | ([facility]) | | + +--------+ + + + [...] | 3.50 - 10.80 K/cu mm | [facility] | | | | | SERVICES, CORE | + + + + + | RED CELL COUNT | 4.85 | 4.00 - 5.20 M/cu mm | [facility] | | | | | SERVICES, CORE | + + + + + | HEMOGLOBIN | 15.1 | 12.0 - 16.0 g/dL | [facility] | | | | | SERVICES, CORE | + + + + + | HEMATOCRIT | 47.8 (H) | 36.0 - 46.0 % | [facility] | | | | | SERVICES, CORE | + + + + + | MCV | 98.6 | 80.0 - 100.0 fL | [facility] | | | | | SERVICES, CORE | + + + + + | MCHC | 31.6 (L) | 32.0 - 36.0 g/dL | [facility] | | | | | SERVICES, [...] | + + + + + | [facility] | [address] | [place] [address] | | | TAVARES, MIR | [address] | | | + + + + + VITAMIN B1, WHOLE BLOOD (07/09/2018 4:20 PM) + + + + + | Component | Value | Ref Range | Performed At | + + + + + | VITAMIN B1, WHOLE | 142Comment: INTERPRETIVE | 70 - 180 nmol/L | [facility] | | BLOOD | [...] | | | | | determined by [facility] | | | | | Laboratories. See | | | | | Compliance Statement B: | | | | | Waygo.Everfi/CSPerformed | | | | | by Nextivity,[address] | | | | | El[address], [facility],[place] | | | | | [address] | | | | | [phone].[email or web address]. | | | | | [facility] centerIker MD, | | | | [...] [facility] | [address] | [place], [place] | | | UN[facility] P[facility] - INTFC | | [address] | | + + + + + [...] | + + + + + | [facility] | [address] | [place] [address] | | | SERVICES, CORE | PARK [...] | + + + + + | [facility] | [address] | [place] [address] | | | SERVICES, SPECIAL | NANCY [...] >60 mL/min | [facility] | | NIUEAN | | | TAVARES, CORE | + +---------+ + + | EGFR NON | >60 | >60 mL/min | [facility] | | -NIUEAN | | | SERVICES, CORE | + [...] | | PLASMA (LAB) | | | [facility], CORE | + +---------+ + + | ALBUMIN, PLASMA | 3.6 | 3.5 - 4.7 g/dL | [facility] | | (LAB) | | | [...] | + + + + + | [facility] | [address] | [place] [address] | | | SERVICES, CORE | NANCY [...] Statement B: | | | | | Qian Xiao'er/CSPerformed | | | | | by Nextivity,[address] | | | | | Eliel Colon, [facility],[place] | | | | | [address] | | | | | [phone].Waygo. | | | | | Iker mcclain [...] | + + + + + | [facility] | [address] | [place], [place] | | | UN[facility] [place] INTFC | | [address] | | + + + + + FERRITIN (07/09/2018 4:20 PM) + + + + + | Component | Value | Ref Range | Performed At | + + + + + | FERRITIN | 53Comment: Male and | 50 - 200 ng/mL | [facility] | | | [...] | + + + + + | [facility] | [address] | [place] [address] | | | SERVICES, CORE | NANCY [...] | + + + + + | [facility] | [address] | [place] [address] | | | SERVICES, CORE | [address] | | | + + + + + VITAMIN B-12 (07/09/2018 4:20 PM) + +-------+ + + | Component | Value | Ref Range | Performed At | + +-------+ + + | VITAMIN B12 | 583 | 193 - 986 pg/mL | [facility] | | | | | [address] | + +-------+ + + + + | Specimen | + + | Blood - Blood | + + + + + + + | Performing | Address | City/State/Zipcode | Phone Number | | Organization | | | | + + + + + | [facility] | [address] | [place] [address] | | | MIR CHAPIN | [address] | | | + + + + + HEMOGLOBIN A1C, BLOOD (07/09/2018 4:20 PM) + + + + + | Component | Value | Ref Range | Performed At | + + + + + | HEMOGLOBIN A1C | 6.2 (H)Comment: Hgb A1C | <5.7 % | [facility] | | | Interpretive | [...] [facility] | | considered for monitoring buttermaker continuous churn glycemic control in patients with: | LABORATORY [...] + + | [facility] | [address] | [place] [address] | | | SERVICES, SPECIAL | NANCY [...] | + + + + + | [facility] | [address] | [place] [address] | | | SERVICES, CORE | NANCY [...] OF | [address] | [place], [place] | | | CARDIOLOGY | [address] | [address] | | + + + + + from Last 3 Months Insurance + +--------+ +--------+-------+---------+ | Payer | Benefi | Subscriber | Type | Phone | Address | | | t Plan | ID | | | | | | / | | | | | | | Group | | | | | + +--------+ +--------+-------+---------+ | MANAGER R D MEDICAID | MANAGER R D | [id number] | Medica | | | [...] | 1971 | [phone] | [place] [address] | | | kevin | | | [phone] | | + +--------+ +--------+ + + | DEANN JOSÉ | Behavi | Self | [birth year] | Home: | [address] | | | oral | | 1971 | [phone] | [place] [address] | | | Health | | | [phone] | | + +--------+ +--------+ + +
--- OUTSIDE RECORDS SUMMARY | ~2018-09-14 | XMS | Encounter Summary ---
Demographics + + + | Address | [address] | | | [place] [address] | + + + | Home Phone | | + + + | Preferred Language | Unknown | + + + | Marital Status | Single | + + + | Druze Affiliation | NON | + + + | Race | White | + + + | Ethnic Group | Not or | + + + Author + + + | Author | [facility] | + + + | Organization | [facility] | + + + | Address | Unknown | + + + | Phone | Unavailable | + + + Support + + +---------+ + | Name | Relationship | Address | Phone | + + +---------+ + | Jordan Aguirre | ECON | Unknown | Unavailable | + + +---------+ + Care Team Providers + +------+ + | Care Plating Department Helper Name | Role | Phone | [...] | 2019 | Encounter | Center at [facility] | [address] | | | | | Floor [address] | [place], | | | | | [place]leen Mailcode: | [place] [address] | | | | | [facility] | | | | | | Health and Healing | | | | | | [place], [place] | | | | | | [address] | | | | | | [phone] | | | +--------+ + + + [...]
--- OUTSIDE RECORDS SUMMARY | ~2018-09-14 | XMS | Encounter Summary ---
Demographics + + + | Address | [address] | | | [place] [address] | + + + | Home Phone | | + + + | Preferred Language | Unknown | + + + | Marital Status | Single | + + + | Caodaism Affiliation | NON | + + + | Race | White | + + + | Ethnic Group | Not or | + + + Author + + + | Author | [facility] | + + + | Organization | [facility] | + + + | Address | Unknown | + + + | Phone | Unavailable | + + + Support + + +---------+ + | Name | Relationship | Address | Phone | + + +---------+ + | Jordan Aguirre | ECON | Unknown | Unavailable | + + +---------+ + Care Team Providers + +------+ + | Care Claims Account Manager Name | Role | Phone [...] Center at [facility] 6th | MD [address] | | | | | Floor [address] | [place], [place] | | | | | Arleen Mailcode: CH4 | [address] | | | | | [facility] | [phone] | | | | | and Leandro, 6th | | | | | | floor [place], [place] | | | | | | [address] | | | | | | | [...] + | [facility] | [address] [facility] | [place] [address] | | | SERVICES, CORE | NANCY [...] LABORATORY | [address] | [place] [address] | | | SERVICES, MIR | [address] | | | + + + + + VITAMIN B1, WHOLE BLOOD (07/09/2018 4:20 PM) + + + + + | Component | Value | Ref Range | Performed At | + + + + + | VITAMIN B1, WHOLE | 142Comment: INTERPRETIVE | 70 - 180 nmol/L | [facility] | | BLOOD | INFORMATION: [...] | | | | | determined by [facility] | | | | | Laboratories. See | | | | | Compliance Statement B: | | | | | [employer]/CSPerformed | | | | | by Neuroware.io,[address] | | | | | [place], [place] | | | | | [address] | | | | | [phone].[employer]. | | | | | OnetoOnetext, Iker Angelo MD, | | | | [...] [facility] | [address] | [place], [place] | | | UN[facility] P[facility] - INTFC | | [address] | | + + + + + [...] LABORATORY | [address] | [place] [address] | | | SERVICES, MIR | [address] | | | + + + + + METHYLMALONIC ACID, SERUM (07/09/2018 4:20 PM) + + + + + | Component | Value | Ref Range | Performed At | + + + + + | METHYLMALONIC ACID | 0.18Comment: | 0.00 - 0.40 umol/L | [facility] | | | INTERPRETIVE | | UNIV PTH - | | | INFORMATION: MMA | | INTFC | | | Serum/Plasma, | | | | | | | | | | | | | | | Vitamin B12 Status | | | | | Test developed and | | | | | characteristics | | | | | determined by [facility] | | | | | Laboratories. See | | | | | Compliance Statement B: | | | | | [employer]eto[employer]etext/CSPerformed | | | | | by Neuroware.io,[address] | | | | | [facility],[place] | | | | | [address] | | | | | [phone].[employer]. | | | | | [facility] hospitalIker MD, | | | | [...] [facility] | [address] | [place], [place] | | | UN[facility] PTH - INTFC | | [address] | | + + + + + IRON AND TIBC (07/09/2018 4:20 PM) + +--------+ + + | Component | Value | Ref Range | Performed At | + +--------+ + + | IRON | 49 | 30 - 160 ug/dL | [facility] | | | | | SERVICES, CORE | + +--------+ + + | IRON BIND CAP | 413 | 240 - 450 ug/dL | [facility] | | | | | SERVICES, CORE | + +--------+ + + | % SATURATION | 12 (L) | 20 - 50 % | [facility] | | TRANSFERRIN, | | | SERVICES, CORE | + +--------+ + + + + | Specimen | + + | Blood - Blood | + + + + + + + | Performing | Address | City/State/Zipcode | Phone Number | | Organization | | | | + + + + + | [facility] | [address] | [place] [address] | | | SERVICES, CORE | [address] | | | + + + + + HOMOCYSTEINE TOTAL, PLASMA (07/09/2018 4:20 PM) + + + + + | Component | Value | Ref Range | Performed At | + + + + + | HOMOCYSTEINE,PLASMA, | 16.5 (H) | 3.5 - 10.4 umol/L | [facility] | | TOTAL | | [...] | + + + + + | [facility] | [address] | [place] [address] | | | SERVICES, SPECIAL | [address] [...] LAWS | [address] | [place] [address] | | | MIR [address] | [address] | | | + + + + + COMPLETE METABOLIC SET (NA,K,CL,CO2,BUN,CREAT,GLUC,CA,AST,ALT,BILI TOTAL,ALK PHOS,ALB,PROT TOTAL) (07/09/2018 4:20 PM) + +---------+ + + | Component | Value | Ref Range | Performed At | + +---------+ + + | GLUCOSE, PLASMA | 121 (H) | 70 - 99 mg/dL | [facility] | | (LAB) | | | TAVARES CORE | + +---------+ + + | BUN, PLASMA (LAB) | 12 | 6 - 20 mg/dL | [facility] | | | | | SERVICES, CORE | + +---------+ + + | CREATININE PLASMA | 0.64 | 0.60 - 1.10 mg/dL | [facility] | | (LAB) | | | SERVICES, CORE | + +---------+ + + | EGFR - | >60 | >60 mL/min | [facility] | | CHILEAN | | | SERVICES, CORE | + +---------+ + + | EGFR NON | >60 | >60 mL/min | [facility] | | -CHILEAN | | | SERVICES, CORE | + [...] Shannon CMNT | No Hemo | | [facility] | | | | | SERVICES, [...] + + + | [facility] | [address] | [place] [address] | | | SERVICES, CORE | [address] [...]
--- OUTSIDE RECORDS SUMMARY | ~2018-09-14 | XMS | Encounter Summary ---
Demographics + + + | Address | [address] | | | [place] [address] | + + + | Home Phone | | + + + | Preferred Language | Unknown | + + + | Marital Status | Single | + + + | Worship Affiliation | NON | + + + | Race | White | + + + | Ethnic Group | Not or | + + + Author + + + | Author | [facility] | + + + | Organization | [facility] | + + + | Address | Unknown | + + + | Phone | Unavailable | + + + Support + + +---------+ + | Name | Relationship | Address | Phone | + + +---------+ + | Jordan Aguirre | ECON | Unknown | Unavailable | + + +---------+ + Care Team Providers + +------+ + | Care Apartment House Manager Name | Role | Phone | [...] | | | | | Atrial | [place], [place] | [place] | | | | | fibrillation | [address] | [address] | | | | | , | Phone: | Phone: | | | | | unspecified | [phone] | [phone] | | | | | type (HCC) | Fax: | Fax: | | | | | Abnormal ECG | [phone] | [phone] | | | | | | | [...] | | | | | | | ([facility]) | | | | | | | [...] | | 2019 | Visit | at [facility] [address] | E, [address] | (Primary Dx); | | | | [address] Mailcode: | [address] [place], | Persistent atrial | | | | [facility] | [place] [address] | fibrillation ([facility]); | | | | Health and Healing, | [phone] | Essential | | | | 9th Floor [place], | | hypertension; | | | | [place] [address] | | Diabetes mellitus | | | | [phone] | | type 2 in obese | | | | | | ([facility]); Pre-operative | | | | [...] 11%. KATH MALIK PA-C CARDIOLOGY GENERAL AT [address] [place] Mailcode: [address] [id number] Kath Malik PA-C - 07/09/2018 1:40 PM [...] DVT/PE Aspen reports a cardiac evaluation at [facility] in [place] for dental extrac tions. She had a [...] and chest xray findings. 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 Shortness of breath Thyroid disease Current Outpatient [...] Diabetes Father Hypertension Father Heart Disease Father [place] 78 Hypertension Mother Obesity Mother Social History [...] and no inducible ischemia Records reviewed from [facility] (see media tab and CareEverywhere): Echo [...] is no pericardial effusion.21. No mass . Poo r visualization. Definity was used to [...] calculator (one point for each "yes" answer) http://www.mdcalc.com/mquujzg-ywxvzug-mezd-ajosk-bgd-sxubfhhwk-risk/ A. Elevated risk surgery?: yes B. Ischemic [...] provider/surgeon Yaritza Venegas MD CARDIOLOGY - PREVENTIVE [address] Mailcode: [facility] [facility] [place] [address] in this encounter Plan [...] OF | [address] | [place], [place] | | | CARDIOLOGY | [address] | [address] | | + + + + + [...]
--- OUTSIDE RECORDS SUMMARY | ~2018-09-14 | XMS | Encounter Summary ---
Demographics + + + | Address | [address] | | | [place] [address] | + + + | Home Phone | | + + + | Preferred Language | Unknown | + + + | Marital Status | Single | + + + | Sabianism Affiliation | NON | + + + [...] Team Providers + +------+ + | Care Infrastructure Technician Name | Role | Phone | [...] | | 2019 | | Preventive at [facility] | MD [address] | Request (Chriswendyadrián ) | | | | [address] | [place], [place] | | | | | Mailcode: [facility] | [address] | | | | | [facility] | [phone] | | | | | and Healing | | | | | | [place], [place] | | | | | | [address] | | | | | | [phone] | | | +--------+ + + + [...]
--- OUTSIDE RECORDS SUMMARY | ~2018-09-14 | XMS | Encounter Summary ---
Demographics + + + | Address | [address] | | | [place] [address] | + + + | Home Phone [...] + + + | Author | [facility] | + + + | Organization | [facility] | + + + | Address | Unknown | + + + | Phone | Unavailable | + + + Support + + +---------+ + | Name | Relationship | Address | Phone | + + +---------+ + | Jordan Aguirre | ECON | Unknown | Unavailable | + + +---------+ + Care Team Providers + +------+ + | Care Backend Java Developer Name | Role | Phone | + +------+ + | Iqra Peralta MD | PCP | | + +------+ + Encounter Details +--------+ + + + + | Date | Type | Department | Care Team | Description | +--------+ + + + + | 07/20/ | Loss Mitigation Specialist | Cardiology in | Kath Boyle | | | 2019 | | [facility] | JUL[address]A [address] | | | | | [place] at | [address] [place], | | | | | [place] [address] | [place] [address] | | | | | [address] | [phone] | | | | | [place], [place] | | | | | | [address] | | | | | | [phone] | | | +--------+ + + + [...]
--- OUTSIDE RECORDS SUMMARY | ~2018-09-14 | XMS | Encounter Summary ---
Demographics + + + | Address | [address] | | | [place] [address] | + + + | Home Phone | | + + + | Preferred Language | Unknown | + + + | Marital Status | Single | + + + | Mormon Affiliation | NON | + + + | Race | White | + + + | Ethnic Group | Not or | + + + Author + + + | Author | [facility] | + + + | Organization | [facility] | + + + | Address | Unknown | + + + | Phone | Unavailable | + + + Support + + +---------+ + | Name | Relationship | Address | Phone | + + +---------+ + | Jordan Aguirre | ECON | Unknown | Unavailable | + + +---------+ + Care Team Providers + +------+ + | Care Crystallographer Name | Role | Phone | + [...] | Encounter | Center at [facility] 6th | [address] | | | | | Floor [address] | [place], [place] | | | | | Avmil Mailcode: [facility] | [address] | | | | | [facility] | [phone] | | | | | and [address]andro, 6th | | | | | | floor [place], [place] | | | | | | [address] | | | | | | | [...]
--- OUTSIDE RECORDS SUMMARY | ~2018-09-14 | XMS | Clinical Summary ---
Demographics + + + | Address | [address] | | | [place] [address] | + + + | Home Phone [...] Team Providers + +------+ + | Care Membership Secretary Name | Role | Phone | [...] 2018 | Visit | | MD Lars [address] | | | | | | [address] | | | | | | [place] [address] | | | | | | [phone] | | | | | | | [...] | [employer] | [employer] | [id number] | 11/30/19 | [phone] | | [employer] | | MEDICAID HMO [...] | Self | [birth year] | [address] | | | al/Fam | | 1971 | [phone] | [place] | | | kevin | | | 4 (Home) | [address] | + +--------+ +--------+ + + Advance Directives Patient has advance care planning documents on file. For more information, please contact:[facility] and [facility] [place] [address]
--- OUTSIDE RECORDS SUMMARY | ~2018-09-14 | XMS | Encounter Summary ---
Demographics + + + | Address | [address] | | | [place] [address] | + + + | Home Phone | | + + + | Preferred Language | Unknown | + + + | Marital Status | Single | + + + | Spiritism Affiliation | Unknown | + + + | Race | Unknown | + + + | Ethnic Group | Unknown | + + + Author + + + | Author | [facility] | + + + | Organization | [facility] | + + + | Address | Unknown | + + + | Phone | Unavailable | + + + Support + + +---------+ + | Name | Relationship | Address | Phone | + + +---------+ + | An Carlin | ECON | , [place] | | + + +---------+ + Care Team Providers + +------+ + | Care Archivist Political History Name | Role | Phone | + [...] | | | | | [place] [address] | | | | | | [phone] | | | +--------+ + + + [...] 2019 | Visit | | [address] | | | | | | [address] | | | | | | [address] | | | | | | | [...]
--- OUTSIDE RECORDS SUMMARY | ~2018-09-14 | XMS | Encounter Summary ---
Demographics + + + | Address | [address] | | | [place] [address] | + + + | Home Phone | | + + + | Preferred Language | Unknown | + + + | Marital Status | Single | + + + | Taoism Affiliation | NON | + + + | Race | White | + + + | Ethnic Group | Not or | + + + Author + + + | Author | [facility] | + + + | Organization | [facility] | + + + | Address | Unknown | + + + | Phone | Unavailable | + + + Support + + +---------+ + | Name | Relationship | Address | Phone | + + +---------+ + | Jordan Aguirre | ECON | Unknown | Unavailable | + + +---------+ + Care Team Providers + +------+ + | Care Director Skills Name | Role | Phone | + [...] | | 2019 | | [facility] | MD [address] | Request (Chriswendyadrián ) | | | | [address] | [place], [place] | | | | | Mailcode: [facility] | [address] | | | | | [facility] | [phone] | | | | | and Healing | | | | | | [place], [place] | | | | | | [address] | | | | | | [phone] | | | +--------+ + + + [...]
--- OUTSIDE RECORDS SUMMARY | ~2018-09-14 | XMS | Encounter Summary ---
Demographics + + + | Address | [address] | | | [place] [address] | + + + | Home Phone [...] Author + + + | Author | [facility] | + + + | Organization | [facility] | + + + | Address | Unknown | + + + | Phone | Unavailable | + + + Support + + +---------+ + | Name | Relationship | Address | Phone | + + +---------+ + | Jordan Aguirre | ECON | Unknown | Unavailable | + + +---------+ + Care Team Providers + +------+ + | Care Field Instructor Name | Role | Phone | [...] | 2019 | Encounter | Center at [facility]th | [address] | | | | | Floor [address] | [place], [place] | | | | | Avmil Mailcode: [facility] | [address] | | | | | [facility] | [phone] | | | | | and [place], [address]th | | | | | | floor [place], [place] | | | | | | [address] | | | | | | | [...]
--- OUTSIDE RECORDS SUMMARY | ~2018-09-14 | XMS | Encounter Summary ---
Demographics + + + | Address | [address] | | | [place] [address] | + + + | Home Phone | | + + + | Preferred Language | Unknown | + + + | Marital Status | Single | + + + | Samaritan Affiliation | Unknown | + + + | Race | Unknown | + + + | Ethnic Group | Unknown | + + + Author + + + | Author | [facility] | + + + | Organization | [facility] | + + + | Address | Unknown | + + + | Phone | Unavailable | + + + Support + + +---------+ + | Name | Relationship | Address | Phone | + + +---------+ + | An Carlin | ECON | , [place] | | + + +---------+ + Care Team Providers + +------+ + | Care Cannery Worker Name | Role | Phone | [...] | | | | | [place] [address] | | | | | | [phone] | | | +--------+ + + + [...] [place] | | | | | | [id number] | | | | | | | | +--------+---------+ + + + as of this encounter Visit Diagnoses Not on filein this encounter"
--- OUTSIDE RECORDS SUMMARY | ~2018-09-14 | XMS | Encounter Summary ---
Demographics + + + | Address | [address] | | | [place] [address] | + + + | Home Phone | | + + + | Preferred Language | Unknown | + + + | Marital Status | Single | + + + | Mormonism Affiliation | NON | + + + | Race | White | + + + | Ethnic Group | Not or | + + + Author + + + | Author | [facility] | + + + | Organization | [facility] | + + + | Address | Unknown | + + + | Phone | Unavailable | + + + Support + + +---------+ + | Name | Relationship | Address | Phone | + + +---------+ + | Jordan Aguirre | ECON | Unknown | Unavailable | + + +---------+ + Care Team Providers + +------+ + | Care Lead Embedded Software Engineer Name | Role | Phone | + +------+ + | Iqra Peralta MD | PCP | | + +------+ + Encounter Details +--------+ + + + + | Date | Type | Department | Care Team | Description | +--------+ + + + + | 09/02/ | MyChart | [facility] Comprehensive | Ramona Sunshine | RE:Question | | 2019 | Encounter | Pain Center at | W, PhD [address] | | | | | [facility] | Ave [place], [place] | | | | | [address] | [address] | | | | | Mail Code: CH15 | [phone] | | | | | [facility] | | | | | | and Healing, | | | | | | [place], [place] | | | | | | [address] | | | | | | [phone] | | | +--------+ + + + [...]
--- OUTSIDE RECORDS SUMMARY | ~2018-09-14 | XMS | Encounter Summary ---
Demographics + + + | Address | [address] | | | [place] [address] | + + + | Home Phone | | + + + | Preferred Language | Unknown | + + + | Marital Status | Single | + + + | Quaker Affiliation | Unknown | + + + | Race | Unknown | + + + | Ethnic Group | Unknown | + + + Author + + + | Author | [facility] [facility] | + + + | Organization | [facility] | + + + | Address | Unknown | + + + | Phone | Unavailable | + + + Support + + +---------+ + | Name | Relationship | Address | Phone | + + +---------+ + | An Carlin | ECON | , [place] | | + + +---------+ + Care Team Providers + +------+ + | Care Fundraising Officer Name | Role | Phone | [...] | | 2019 | on Only | [place] [address] | [address] | Retroperitoneal | | | | [address] | | 04/27/2018) | | | | [place] [address] | | | | | | [phone] | | | +--------+ + + + [...] | | | | | | [address] | | | | | | [address] | | | | | | | | +--------+---------+ + + + as of this encounter Visit Diagnoses Not on filein this encounter"
--- OUTSIDE RECORDS SUMMARY | ~2018-09-14 | XMS | Encounter Summary ---
Demographics + + + | Address | [address] | | | [place] [address] | + + + | Home Phone | | + + + | Preferred Language | Unknown | + + + | Marital Status | Single | + + + | Jainism Affiliation | NON | + + + [...] Providers + +------+ + | Care Electrical Hardware Engineer Name | Role | Phone | [...] | | [facility] | JULIETA Jiménez [address] | | | | | [place] at | [address] [place], | | | | | [place] [address] [address] | [place] [address] | | | | | [address] | [phone] | | | | | [place], [place] | | | | | | [address] | | | | | | [phone] | | | +--------+ + + + [...]
--- OUTSIDE RECORDS SUMMARY | ~2018-09-14 | XMS | Encounter Summary ---
Demographics + + + | Address | [address] | | | [place] [address] | + + + | Home Phone | | + + + | Preferred Language | Unknown | + + + | Marital Status | Single | + + + | Orthodox Affiliation | NON | + + [...] Providers + +------+ + | Care Proof Inspector Name | Role | Phone | + +------+ + | Iqra Peralta MD | PCP | | + +------+ + Encounter Details +--------+ + + + + | Date | Type | Department | Care Team | Description | +--------+ + + + + | 09/03/ | MyClolat | [facility] Comprehensive | Ramona Sunshine | RE:Recommendations | | 2019 | Encounter | Pain Center at | W, PhD [address] | | | | | [facility] | Ave [place], [place] | | | | | [address] | [address] | | | | | Mail Code: CH15P | [phone] | | | | | [facility] | | | | | | and , | | | | | | Floor [place], [place] | | | | | | [address] | | | | | | [phone] | | | +--------+ + + + [...]
--- OUTSIDE RECORDS SUMMARY | ~2018-09-14 | XMS | Encounter Summary ---
Demographics + + + | Address | [address] | | | [place] [address] | + + + | Home Phone | | + + + | Preferred Language | Unknown | + + + | Marital Status | Single | + + + | Restoration Affiliation | Unknown | + + + | Race | Unknown | + + + | Ethnic Group | Unknown | + + + Author + + + | Author | [facility] [employer] [facility] [employer] | + + + | Organization | [facility] | + + + | Address | Unknown | + + + | Phone | Unavailable | + + + Support + + +---------+ + | Name | Relationship | Address | Phone | + + +---------+ + | An Carlin | ECON | , [place] | | + + +---------+ + Care Team Providers + +------+ + | Care Bi Technical Lead Name | Role | Phone | + +------+ + | Iqra Peralta MD | PCP | | + +------+ + Encounter Details +--------+---------+ + + + | Date | Type | Department | Care Team | Description | +--------+---------+ + + + | 08/02/ | Office | [facility] | Ricardo Mijares MD | Essential (primary) | | 2019 | Visit | [place] [address] | [address] | hypertension | | | | [address] | [address] [place], [place] | (Primary Dx); | | | | [place] [address] | [phone] | 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 The following portions of [...] 80 (A) 10/21/2017 LABPROT 3,723.4 (A) 07/22/2018 [id number] 01/20/2018 Assessment: Ms. Darden is a [...] have a BMP, CBC, urinalysis, Urine total whipiet-dz-osayhsghxi ratio before she comes back in 3 months. 15 minutes of this 25-minute visit was spent in education and counseling. Thank you Dr Peralta for the opportunity to see this patient in F/U today. Please do not hesi renee to call me at any time with questions or concerns. Truly yours, Ricardo Mijares MD [facility] in this encounter Plan of Treatment +--------+---------+ + + + | Date | Type | Specialty | Care Team | Description | +--------+---------+ + + + | 11/08/ | Office | Nephrology | Ricardo Mijares MD | | | 2019 | Visit | | [address] | | | | | | [address] | | | | | | [address] | | | | | | | [...]
--- OUTSIDE RECORDS SUMMARY | ~2018-09-14 | XMS | Encounter Summary ---
Demographics + + + | Address | [address] | | | [place] [address] | + + + | Home Phone [...] Team Providers + +------+ + | Care Robotic Machine Tender Production Name | Role | Phone | + +------+ + | Iqra Peralta MD | PCP | | + +------+ + Encounter Details +--------+ + + + + | Date | Type | Department | Care Team | Description | +--------+ + + + + | 08/05/ | MyChart | [facility] at [facility] | Mily Love, | RE: Appt aproval | | 2019 | Encounter | 15th Floor [address] | Kofi Moya, PhD [address] | | | | | [address] | [address] | | | | | Code: [facility] | [place], [place] | | | | | for Health and | [address] | | | | | Healing, 15th Floor | [phone] | | | | | [place], [place] | | | | | | [address] | | | | | | [phone] | | | +--------+ + + + [...]
--- OUTSIDE RECORDS SUMMARY | ~2018-09-14 | XMS | Encounter Summary ---
Demographics + + + | Address | [address] | | | [place] [address] | + + + | Home Phone | | + + + | Preferred Language | Unknown | + + + | Marital Status | Single | + + + | Pentecostal Affiliation | Unknown | + + + | Race | Unknown | + + + | Ethnic Group | Unknown | + + + Author + + + | Author | [facility] [employer] | + + + | Organization | [facility] | + + + | Address | Unknown | + + + | Phone | Unavailable | + + + Support + + +---------+ + | Name | Relationship | Address | Phone | + + +---------+ + | An Carlin | ECON | , [place] | | + + +---------+ + Care Team Providers + +------+ + | Care Nutrition Professor Name | Role | Phone | [...] | | | | | [place] [address] | | | | | | [phone] | | | +--------+ + + + [...] [place] | | | | | | [address] | | | | | | | | +--------+---------+ + + + as of this encounter Visit Diagnoses Not on filein this encounter"
[~2018-09-14 12:43] MED LIST changes: +DOXYCYCLINE MO100 M1 PO; +IRON325 M1 PO; +TOPROL XL25 MG PO; +VANCOMYCIN2 GM/5001 IV; +VICTOZA 2-0.6 MG/0.1 SUB-Q; +WELLBUTRIN XL150 MG PO
--- OUTSIDE RECORDS SUMMARY | 2018-09-14 13:30 | XMS ---
PreManage Notification: DEANN JOSÉ Security Rail Setter Events No recent Security Events currently on file CRITERIA MET - Group Notification - [facility] - Has [facility] Guidelines - [facility] Suad Woods Avionics Repair Technician/Senior Medical Billing Specialist 01/30/2018-Current PHONE: [phone] Suad Woods Avionics Repair Technician/Senior Medical Billing Specialist 01/30/2018-Current PHONE: [phone] CAMERON STARKEY Internal Medicine 01/25/2018-Current BARBARA PHONE: [phone] Suad Woods Primary Care 01/30/2018-Current PHONE: [phone] DR NATALIA DOMIGNUEZ Primary Care 07/30/2016-Current PHONE: [phone] Shamir has no Care Guidelines for this patient. Care History Medical/Surgical 04/16/2018 [facility] - Patient is currently established with [facility]. If patient is seen in the ED during business hours. Please contact CHWs at [facility]. Care Recommendation: This patient has had [...] providing care. E.D. VISIT COUNT (12 MO.) 4 [facility] TOTAL 4 NOTE: Visits indicate total known visits. ED/UCC VISIT TRACKING (12 MO.) 09/14/2018 12:44 [facility] TYPE: Emergency COMPLAINT: - R LEG PAIN 08/12/2018 11:57 [facility] TYPE: Emergency COMPLAINT: - L LEG PAIN 04/15/2018 21:03 [facility] TYPE: Emergency COMPLAINT: - L/R LEG SWELLING DIAGNOSES: - Other cook dessert (current) drug therapy - Other specified disorders of veins - Allergy status to penicillin - Obesity, unspecified - Cellulitis of right lower limb - Cellulitis of left lower limb - Allergy status to sulfonamides status - [facility] (current) use of anticoagulants 01/24/2018 16:36 [facility] TYPE: Emergency COMPLAINT: - SKIN PROBLEM DIAGNOSES: - Rash and other nonspecific skin eruption INPATIENT VISIT TRACKING (12 MO.) 08/12/2018 11:58 [facility] TYPE: Observation COMPLAINT: - CELLULITIS DIAGNOSES: - Bilateral primary osteoarthritis of knee - Adverse effect of anticoagulants, initial encounter - Panic disorder [episodic paroxysmal anxiety] - Urinary tract infection, site not specified - Body mass index (BMI) 70 or greater, adult - commercial development manager (current) use of anticoagulants - commercial development manager (current) use of inhaled steroids - Unspecified asthma, uncomplicated - Cellulitis of left lower limb - commercial development manager (current) use of oral hypoglycemic drugs - Bariatric surgery status - Abnormal coagulation profile - Sleep apnea, unspecified - Chronic atrial fibrillation - Major depressive disorder, single episode, unspecified - Morbid (severe) obesity due to excess calories - Type 2 diabetes mellitus without complications - Venous insufficiency (chronic) (peripheral) - Personal history of pneumonia (recurrent) - Essential (primary) hypertension - Hypothyroidism, unspecified - Allergy status to penicillin - Unspecified Escherichia coli [E. coli] as the cause of diseases classified elsewhere - Other cook dessert (current) drug therapy - Allergy status to sulfonamides status [email or web address]
== END 2018-09-14 19:50 | disposition short-term general hospital (02) ==
LOC: ED 12:43
DX: S72.401A Unspecified fracture of lower end of right femur, initial encounter for closed fracture (principal); E66.01 Morbid (severe) obesity due to excess calories; W18.42XA Slipping, tripping and stumbling without falling due to stepping into hole or opening, initial encounter; J45.909 Unspecified asthma, uncomplicated; F41.9 Anxiety disorder, unspecified; E03.9 Hypothyroidism, unspecified; Z87.891 Personal history of nicotine dependence; Z88.0 Allergy status to penicillin; Z88.2 Allergy status to sulfonamides; Z79.01 Long term (current) use of anticoagulants; Z79.899 Other long term (current) drug therapy; Z79.891 Long term (current) use of opiate analgesic
CPT/HCPCS: 29505; 51702; 73560; 99284-25; J1170; J1885; J7030

== ENCOUNTER 2019-06-14 02:00 | Emergency (ER) | payer OTHER ==
[~2019-06-14] VITALS: Ht 160 cm; Wt 180.5 kg
--- OUTSIDE RECORDS SUMMARY | ~2019-06-14 | XMS | Encounter Summary ---
Demographics + + + | Address | [address] | | | [place] [address] | + + + | Home Phone | | + + + | Preferred Language | Unknown | + + + | Marital Status | Single | + + + | Episcopalian Affiliation | NRP | + + + | Race | White | + + + | Ethnic Group | Not or | + + + Author + + + | Author | [facility] | + + + | Organization | [facility] | + + + | Address | Unknown | + + + | Phone | Unavailable | + + + Support + + +---------+ + | Name | Relationship | Address | Phone | + + +---------+ + | An Carlin | ECON | Unknown | | + + +---------+ + | Miley Aguirre | ECON | Unknown | | + + +---------+ + | Lana Nisha | ECON | Unknown | | + + +---------+ + Care Team Providers + +------+ + | Care Unix Analyst Name | Role | Phone | + +------+ + | Bassam Ross DO | PCP | | + +------+ + Reason for Visit + + + | Reason | Comments | + + + | Pre-op evaluation | | + + + Encounter Details +--------+---------+ + + + | Date | Type | Department | Care Team | Description | +--------+---------+ + + + | 01/22/ | Office | Preoperative | Dulce Romero | Preoperative | | 2015 | Visit | Medicine Clinic at | J, ORGAN PIPE VOICER | examination, | | | | [facility] 4th Floor [address] | | unspecified (Primary | | | | [address] | | Dx); Morbid obesity | | | | Mailcode: CH4S | | with BMI of 70 and | | | | [facility] | | over, adult (HCC); | | | | and Healing, | | Sleep apnea; | | | | Building [address] Floor | | Posttraumatic stress | | | | [place], [place] | | disorder; Essential | | | | [address] | | hypertension; Preop | | | | [phone] | | examination; Other | | | | | | specified | | | | | | pre-operative | | | | | | examination | +--------+---------+ + + + Anesthesia Record + + + + + | Procedure Name | Responsible | Anesthesia Start | Anesthesia Stop Time | | | Anesthesiologist | Time | | + + + + + | preop evaluation | | | | + + + + + + + | No events on file. | + + +------+ | Meds | +------+ + + + No medications | on file. | + + + + + | No agents on file. | + + + + | No blood administrations on file. | + + + + | No LDAs on file. | + + documented in this encounter Social History + + + +--------+ + [...] + +---------+ + | Alcohol Use | Drinks/Week | oz/Week | Comments | + + +---------+ + | Yes | | | social drinks (2-3 | | | | | times per year) | + + +---------+ + + + + | Sex Assigned at | Date Recorded | | | | + + + | Not on file | | + + + + + + + | Job Start Date | Occupation | Industry | + + + + | Not on file | Not on file | Not on file | + + + + + + + + | Travel History | Travel Start | Travel End | + + + + + + | No recent travel history available. | + + documented as of this encounter Last Filed Vital Signs + + + + + | Vital Sign | Reading | Time Taken | Comments | + + + + + | Blood Pressure | 137/77 | 01/22/2015 3:06 PM | | | | | PDT | | + + + + + | Pulse | 100 | 01/22/2015 3:06 PM | | | | | PDT | | + + + + + | Temperature | 36.7 C (98 F) | 01/22/2015 3:06 PM | | | | | PDT | | + + + + + | Respiratory Rate | 16 | 01/22/2015 3:06 PM | | | | | PDT | | + + + + + | Oxygen Saturation | 96% | 01/22/2015 3:06 PM | | | | | PDT | | + + + + + | Inhaled Oxygen | - | - | | | Concentration | | | | + + + + + | Weight | 188.7 kg (416 lb) | 01/22/2015 3:06 PM | | | | | PDT | | + + + + + | Height | 162.6 cm (5' 4") | 01/22/2015 3:06 PM | neck 47cm | | | | PDT | | + + + + + | Body Mass Index | 71.41 | 01/22/2015 3:06 PM | | | | | PDT | | + + + + + documented in this encounter Patient Instructions Patient Instructions Dulce Romero, ORGAN PIPE VOICER - 01/22/2015 3:48 PM PDT PREOPERATIVE INSTRUCTIONS Empty stomach before surgery On the day BEFORE your surgery, drink plenty of fluids and stay well hydrated NOTHING to eat or drink after midnight the night before surgery. This includes water, coffee, candy, mints, gum. Medications Instructions On the evening before your surgery, take ALL your usual evening medications TAKE the following medications with a sip of water on the morning of surgery: Clonidine Carvedilol Armstrong thyroid mirapex Bring CPAP and albuterol inhaler to hospital. Unless otherwise directed by your surgeon, do not take any Aspirin, vitamin E or non-shayla roidal anti-inflammatory (NSAIDs i.e. Advil, Aleve, Ibuprofen) or herbal supplements 7-14 da ys prior to your surgery. These drugs may interfere with normal blood clotting and may cause excessive bleeding and bruising during or after the surgery. If you need a pain medication for general purposes, use Tylenol as directed. OK to take it even on the morning of surgery, if needed. If you are in doubt about any medications that you are taking, please contact our office . Skin preparation to help avoid surgical site infections MARY GUIDE TO GENERAL SKIN CLEANSING AT HOME BEFORE SURGERY Before you bathe or shower: ? Read the instructions given to you by your healthcare practitioner, and begin your genera l skin cleansing protocol as directed. ? Carefully read all directions on the product label. ? Hibiclens is not to be used on the head or face, keep out of the eyes, ears and mouth. ? Hibiclens is not to be used in the genital area. ? Hibiclens should not be used if you are allergic to chlorhexidine gluconate or any other ingredients in this preparation. *See Hibiclens label for full product information and precautions. When you bathe or shower the night before your surgery: ? If you plan to wash your hair, do so with your regular shampoo. Then rinse hair and body thoroughly to remove any shampoo residue. ? Wash your face with your regular soap or water only. ? Thoroughly rinse your body with warm water from neck down. ? Use Hibiclens as you would any other liquid soap. Please do not put the Hibiclens on a wa sh cloth, apply directly to the skin and wash gently. Apply the minimum amount of Hibiclens necessary to cover the skin. Leave the Hibiclens on your skin for 1 minute, then rinse off. ? Rinse thoroughly with warm water. ? Do not use your regular soap after applying and rinsing Hibiclens. When using Hibiclens for a second day in a row (morning of surgery, as soon as you wake up) : ? Shower/bathe again using Hibiclens in the same method as described above. ? Do not apply any lotions, deodorants, powders or perfumes to the body areas that have been cleaned with Hibiclens. Other Important Guidelines ? Do not shave the surgical area Do not smoke, drink alcohol or use recreational drugs for 24 hours before your surgery Watch for any change in your health condition. Let your surgeon know right away if you do not feel well. ? Do not wear makeup, perfume, lotions, deodorant, powder or hairspray. Do not wear any jewelry to the hospital. Wear loose, comfortable clothing. Leave all your valuables at home. Allow enough travel time so you re not late for your check in for surgery. ? Take a bath or shower and remember to shampoo your hair using your usual hair product bef ore your arrival at the hospital. Please remember to brush your teeth the night before and the morning of your procedure. Preventing post op complications while you are in the hospital Use an incentive spirometer or peep breathe to keep your lungs working properly an d to help prevent respiratory complications. It helps you take long, deep breaths. Use it at least once every hour while you are awake. Leg and feet exercises will maintain good circulation and help prevent blood clots in yo ur legs. Sometimes your doctor will order air compression stockings. Compressed air helps the circulation in your legs. Walking and moving will help stimulate normal circulation and deep breathing. After you r surgery, your nurse may ask you to sit, stand or walk. Surgery check-in location: Admitting - [facility], ninth floor lobby Surgery Check in Time: The Preoperative Medicine Clinic is not in the position to give you accurate information regarding surgical check in time. We refer you back to your surgical office regarding this important information. Going Home Your surgical team will decide when you are medically ready to go home. If you stayed in the hospital after surgery, please arrange for your ride to come for yo u around 9AM on the day your doctor says you can go home. If you have questions or concerns after you go home, call your doctor s office. If it is after office hours, call the [facility] buckle attaching machine operator at [phone] and ask them to page him or h er. Preparing For Your Surgery Video - 7 minutes of instructions! Access this [facility] video site : [email or web address] -->Healthcare --> Patient and Visitor Guide --> Preparing for your Visit or Surgery --> Click on the "Preparing for Your Surgery" video yoanna k documented in this encounter Progress Notes Jarod Emmanuel MA - 01/22/2015 3:37 PM PDT Venipuncture performed in clinic, blood sample obtained from Right antecubital site Hemoglo bin A1C POCT performed during clinic visit. Blood sample obtained from venipuncture performe d to obtain other lab tests. Dulce Newman FNP - 01/22/2015 2:57 PM PDT . PREOPERATIVE CONSULT NOTE Author: JULIET TARANGO Referring Physician: Dr Reed Primary Care Provider: Bassam Ross DO Reason for Consult: Preoperative evaluation and risk assessment Proposed Procedure/Date: LAPAROSCOPIC SLEEVE GASTRECTOMY, 02/07/15 HISTORY OF PRESENT ILLNESS: Aspen Darden is a 44 y.o. female here for preoperative evalua tion for above procedure. Pt has dx of morbid obesity with BMI 71. Bariatric surgery was at [facility] in July 2014, aborted due to enlarged fatty liver. She has since lost weight (>20#) and surgery has been rescheduled for early January Pertinent medical history: HTN on 3 agents; ANNABEL on CPAP; pulmonary HTN, mild per ECHO,(11/18 14), RVSP 47 mmHg; hypothyroidism on hormone replacement; asthma, mild intermittent; PTSD. Perioperative cardiac risks: None Functional Capacity: Low (1-4 mets) Prior complications of anesthesia: none ROS: Pulmonary: Within Defined Limits except as noted below no cough no shortness of breath no w heezing Pt. Has asthma (mild intermittent, albuterol prn, last use several months ago.) Clas sification:allergic asthma Frequency: ER Visits: none Hospital Visits: none Dx of sleep apnea (CPAP with 2 liters O2.) Uses BiPap/CPAP Cardiovascular: Walks with walker. 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 S/P lap band with 200 # wt loss, has regained. Within Defined Limits except as noted below Diabetes: type 2, diet Thyroid:+ hypothyroid Neurological: Within Defined limits except as noted below Treatments: Treated w/medications no seizures no HX CORTICOSTEROID psychiatric problem bipolar disorder and anxiety no julita ia Current Pain Level: Current pain level: 6 MS: Within Defined Limits except as noted below arthritis Type: osteoarthritis arthralgias Heme/Onc: Within Defined Limits except as noted below Pt. has: no active bleeding no Bleedi ng diathesis / thrombotic bleeding Previous Transfusions: no transfusion hx Hx: no other hem e, Malignancy: no cancer, Location: Metastasis: Skin: Within Defined Limits except as noted below No open wounds or sores Hx of MRSA/VRE/Ac tive skin infection (groin, 2011. resolved with out recurrence Current medications reviewed / updated Current Medication List Name Sig ACETAMINOPHEN 325 MG TABLET Take 2 tablets by mouth every six hours as needed for pain. Cu t tablet into small pieces. Do not crush. ALPRAZOLAM 0.5 MG TABLET Take by mouth. CARVEDILOL ORAL Take 50 mg by mouth two times daily. CHOLECALCIFEROL (VITAMIN D3) 50,000 UNIT CAPSULE Take by mouth three times weekly (on Thu, Thu, and Thu). CLONIDINE HCL 0.1 MG TABLET Take 0.3 mg by mouth two times daily. DOCUSATE SODIUM 100 MG CAPSULE Take 1 capsule by mouth two times daily. Take while using Di laudid or other narcotic medications. Hold for loose stools FUROSEMIDE 40 MG TABLET 80 mg as needed. GLYCERIN (ADULT) RECTAL SUPPOSITORY Insert 1 suppository rectally once daily as needed (for constipation). Remove bread wrapper, insert 1 suppository into rectum and retain for about 1 5 minutes. HYDROMORPHONE 2 MG TABLET Take 1 to 2 tablets by mouth every six hours as needed for severe pain. OMEPRAZOLE 20 MG CAPSULE,DELAYED RELEASE Take 1 capsule by mouth once daily in the morning for 90 days. Open the capsule and mix into sugar-free liquid or yogurt. ONDANSETRON 4 MG DISINTEGRATING TABLET Take 1 tablet by mouth every six hours. As needed fo r nausea/vomiting. Place 1 tablet on tongue and let it dissolve. POLYETHYLENE GLYCOL 3350 17 GRAM/DOSE ORAL POWDER Take 17 g by mouth once daily. Dissolve 1 7g (1 capful) into 4 ounces of liquid and drink as needed for constipation. PRAMIPEXOLE 0.75 MG TABLET Take 0.75 mg by mouth two times daily. SIMETHICONE 80 MG CHEWABLE TABLET Take 1 tablet by mouth four times daily as needed for blo ating (gas/bloating). THYROID (PORK) 60 MG TABLET Take 60 mg by mouth once daily. Allergies reviewed / updated Allergies Allergen Reactions Amoxicillin Hives Clarification Needed PRENIVIL Clarithromycin Gabapentin Unknown Hydrocodone-Acetaminophen Oxycodone Terephthalate Hives Sulfa (Sulfonamide Antibiotics) Rash Past medical history reviewed / updated Past Medical History Diagnosis Date Essential hypertension, benign Shortness of breath Asthma Cough ANNABEL (obstructive sleep apnea) CPAP/BiPAP dependence Murmur Leaking of urine Abnormal ThinPrep Pap test of vagina Anxiety Depression Bipolar disorder OCD (obsessive compulsive disorder) Thyroid disease Hx of laparoscopic gastric banding 09/22/2013 Morbid obesity with BMI of 70 and over, adult 09/22/2013 Pulmonary hypertension Mild. By echo and chest xray findings. Followed by steel rule die maker apprentice in [place]. Poor intravenous access Past surgery reviewed and updated Past Surgical History Procedure Date C section 1998 Tonsillectomy 1996 Knee surgery 1996 Gastric banding 2004, 2007, 2011 Skin and subcutaneous tissue surgery 2006 Foot surgery 2009 - 2010 3x Hysterectomies, vaginal 2009 Appendectomy for ruptured appendix with abscess 2012 Gallbladder surgery 2007 Family history reviewed / updated Family History Problem Relation Diabetes Father Hypertension Mother Obesity Mother Hypertension Father Heart Disease Father [place] 78 Social history reviewed / updated History Substance Use Topics Smoking status: Former Smoker Quit date: 01/03/1999 Smokeless tobacco: Never Used Comment: quit 12 years ago Alcohol Use: Yes Comment: social drinks (2-3 times per year) PHYSICAL EXAM: Last Vitals: BP 137/77 | Pulse 100 | Temp (Src) 36.7 C (98 F) (Oral) | RR 16 | Ht 1.626 m (5' 4") | Wt 188.696 kg (416 lb) | SpO2 96% | BMI 71.37 kg/(m^2) Body mass index is 71.37 kg/(m^2). General: Patients general appearance: Healthy, Alert, No distress, Cooperative and Age appr opriate Head & Neck/Airway: NC/AT; EOMI; nl appearing ears and nose. Neck ROM: full Neck Circumfere nce: 47 cm. TM Distance:Normal Dentition: dentition is normal Fermin: No Mouth Opening: > = 3 cm C-Spine : normal Neck Anatomy: Normal Jaw Protrusion: Normal, lower incisors can protrude past upper incisors Lung Exam: No respiratory distress. Normal breathing pattern. breath sounds normal Cardiac: No murmurs, gallops or rubs. 2+ pitting edema calves and feet. Rhythm: regular Rat e: normal Abdominal: General Findings: no abdominal tenderness and Nondistended obesity Bowel Sounds: bowel sounds are normal Musculoskeletal: Ambulates with walker Findings: tone normal and normal strength Neuro/Psych: No focal neuro deficits; Alert and appropriate; nl affect. alert Findings: Mot or 5/5 strength globally with normal tone, Soft & sharp sensation normal, No tremor, Alert, oriented to person, place, time and Normal affect Integument: No open rashes or lesions noted. - lesion, rash and open wounds Color: pink Texture: coarse Turgor: turgor normal LABS & DATA REVIEWED/ORDERED Lab Results Component Value Date WBC 8.97 01/22/2015 HB 14.4 01/22/2015 HCT 43.8 01/22/2015 PLT 272 01/22/2015 MCV 98.0 01/22/2015 RDW 47.9 01/22/2015 Lab Results Component Value Date NA 140 01/22/2015 K 3.6 01/22/2015 CL 102 01/22/2015 BICARB 24 01/22/2015 BUN 10 01/22/2015 CR 0.69 01/22/2015 GLU 190 01/22/2015 CA 9.0 01/22/2015 AST 71 01/22/2015 ALT 51 01/22/2015 AP 100 01/22/2015 TBILI 0.7 01/22/2015 TP 7.3 01/22/2015 ALB 3.0 01/22/2015 Lab Results Component Value Date ABO B 01/22/2015 RH Positive 01/22/2015 Lab Results Component Value Date A1C 7.5* 01/22/2015 EKG: Personally reviewed. NSR, normal EKG Stress ECHO, 08/07/14: Final Impressions: 1. At rest there is normal left ventricular systolic function. 2. EKG negative for ischemia. 3. Echo negative for ischemia. Low risk stress echo in a patient who achieved >85% MAPHR and no inducible ischemia MEDICAL DECISION MAKING: Preop cardiac risk assessment completed by Sheila Loya 07/27/14. Stress test negative for i schemia. No further cardiac workup indicated ASSESSMENT and RECOMMENDATIONS: Surgical/anesthesia risk assessment: Aspen Darden is a 44 y.o. female with diagnosis of morbid obesity, scheduled for LAPAROSCOPIC SLEEVE GASTRECTOMY, . According to ACC/AHA gu idelines, the patient does not meet criteria for additional testing. Medication management recommendations: The patient was advised to continue all usual med ications except as noted in Patient Instructions (After Visit Summary given to pt) Pre-procedure antibiotic consideration: allergy to amoxicillin, clarythromycin and sulfa HTN, well controlled ANNABEL on CPAP, bring to hospital Hypothyroidism, stabilized on hormone replacement. Take on am of surgery Asthma, mild intermittent, well controlled with prn albuterol. Clinically stable Type 2 diabetes, not well controlled with A1c 7.5 today. < 8.0, okay for surgery. Antici hsieh improvement with weight loss. PTSD, on prn alprazolam, does not take daily. LFT's, elevated, Essentially unchanged from July lab work. Results forwarded to [facility] on for review. The patient is stable / optimized for surgery. Additional testing/optimization is not nee ded. Thank you for the opportunity to contribute to this patient's care. JULIET TARANGO [facility] PREOPERATIVE MEDICINE CLINIC AT [facility] 4TH FLOOR [address] [facility] [place] [address] I advised the patient regarding NPO requirements, hydration before surgery, showering, ge neral body hygiene. All pre-procedure instructions given to the patient (after-visit summar y). All of patient's questions were addressed. The patient verbalized understanding of the instructions given. documented in th is encounter Plan of Treatment + + +--------+ + + | Name | Type | Priori | Associated Diagnoses | Order Schedule | | | | ty | | | + + +--------+ + + | COMMUNICATION TO [facility] | Procedures | Routin | Preoperative | Ordered: 01/22/2015 | | LAB DRAW | | e | examination, | | | | | | unspecified Morbid | | | | | | obesity with BMI of | | | | | | 70 and over, adult | | | | | | (HCC) | | + + +--------+ + + documented as of this encounter Procedures + +--------+ + + + | Procedure Name | Priori | Date/Time | Associated Diagnosis | Comments | | | ty | | | | + +--------+ + + + | ND COLLECTION VENOUS | Routin | 01/22/2015 | Other specified | | | BLOOD,VENIPUNCTURE | e | 3:37 PM | pre-operative | | | | | PDT | examination | | + +--------+ + + + | CBC (HEMOGRAM) ONLY | Routin | 01/22/2015 | Preoperative | Results for this | | | e | 3:26 PM | examination, | procedure are in the | | | | PDT | unspecified Morbid | results section. | | | | | obesity with BMI of | | | | | | 70 and over, adult | | | | | | (HCC) Essential | | | | | | hypertension | | + +--------+ + + + | COMPLETE METABOLIC | Routin | 01/22/2015 | Preoperative | Results for this | | SET | e | 3:26 PM | examination, | procedure are in the | | (NA,K,CL,CO2,BUN,CRE | | PDT | unspecified Morbid | results section. | | AT,GLUC,CA,AST,ALT,B | | | obesity with BMI of | | | JAYCEE TOTAL,ALK | | | 70 and over, adult | | | PHOS,ALB,PROT TOTAL) | | | (HCC) Essential | | | | | | hypertension | | + +--------+ + + + | CBC ONLY | Routin | 01/22/2015 | Preoperative | Results for this | | | e | 3:26 PM | examination, | procedure are in the | | | | PDT | unspecified Morbid | results section. | | | | | obesity with BMI of | | | | | | 70 and over, adult | | | | | | (HCC) Essential | | | | | | hypertension | | + +--------+ + + + | ANTIBODY SCREEN | Routin | 01/22/2015 | Preoperative | Results for this | | | e | 3:26 PM | examination, | procedure are in the | | | | PDT | unspecified Morbid | results section. | | | | | obesity with BMI of | | | | | | 70 and over, adult | | | | | | (HCC) | | + +--------+ + + + | TYPE AND SCREEN | Routin | 01/22/2015 | Preoperative | Results for this | | | e | 3:26 PM | examination, | procedure are in the | | | | PDT | unspecified Morbid | results section. | | | | | obesity with BMI of | | | | | | 70 and over, adult | | | | | | (HCC) | | + +--------+ + + + | ABO & RH TYPE | Routin | 01/22/2015 | Preoperative | Results for this | | | e | 3:26 PM | examination, | procedure are in the | | | | PDT | unspecified Morbid | results section. | | | | | obesity with BMI of | | | | | | 70 and over, adult | | | | | | (HCC) | | + +--------+ + + + | HEMOGLOBIN A1C, POC | Routin | 01/22/2015 | Preop examination | Results for this | | | e | 3:19 PM | | procedure are in the | | | | PDT | | results section. | + +--------+ + + + | 12 LEAD ECG | Routin | 01/22/2015 | Preop examination | Results for this | | | e | 2:16 PM | | procedure are in the | | | | PDT | | results section. | + +--------+ + + + documented in this encounter Results CBC (HEMOGRAM) ONLY (01/22/2015 3:26 PM PDT) + + + + + + | Component | Value | Ref Range | Performed | Pathologist | | | | | At | Signature | + + + + + + | WHITE CELL | 8.97 | 4.40 - 11.00 | [facility] | | | COUNT | | K/cu mm | LABORATORY | | | | | | SERVICES, | | | | | | CORE | | + + + + + + | RED CELL | 4.47 | 4.00 - 5.20 | [facility] | | | COUNT | | M/cu mm | LABORATORY | | | | | | SERVICES, | | | | | | CORE | | + + + + + + | HEMOGLOBIN | 14.4 | 12.0 - 16.0 | [facility] | | | | | g/dL | LABORATORY | | | | | | SERVICES, | | | | | | CORE | | + + + + + + | HEMATOCRIT | 43.8 | 36.0 - 46.0 % | [facility] | | | | | | LABORATORY | | | | | | SERVICES, | | | | | | CORE | | + + + + + + | MCV | 98.0 (H) | 80.0 - 96.0 fL | [facility] | | | | | | LABORATORY | | | | | | SERVICES, | | | | | | CORE | | + + + + + + | MCHC | 32.9 | 33.0 - 35.5 | [facility] | | | | | g/dL | LABORATORY | | | | | | SERVICES, | | | | | | CORE | | + + + + + + | RDW SD | 47.9 (H) | 35.1 - 46.3 fL | [facility] | | | | | | LABORATORY | | | | | | SERVICES, | | | | | | CORE | | + + + + + + | PLATELET | 272 | 150 - 400 K/cu | [facility] | | | COUNT | | mm | LABORATORY | | | | | | SERVICES, | | | | | | CORE | | + + + + + + | MPV | 11.1 | 9.7 - 12.3 fL | [facility] | | | | | | LABORATORY | | | | | | SERVICES, | | | | | | CORE | | + + + + + + | NRBC% | 0.0 | 0.0 - 0.3 % | [facility] | | | | | | LABORATORY | | | | | | SERVICES, | | | | | | CORE | | + + + + + + | NRBC# | 0.00 | 0.00 - 0.02 | [facility] | | | | | K/cu mm | LABORATORY | | | | | | SERVICES, | | | | | | CORE | | + + + + + + + + | Specimen | + + | Blood - Blood | + + + + + + + | Performing | Address | City/State/Zipcode | Phone Number | | Organization | | | | + + + + + | [facility] | [address] | [place] [address] | | | SERVICES, CORE | [address] | | | + + + + + ANTIBODY SCREEN (01/22/2015 3:26 PM PDT) + + + + + + | Component | Value | Ref Range | Performed | Pathologist | | | | | At | Signature | + + + + + + | Antibody | Negative | | [facility] | | | Screen | | | LABORATORY | | | | | | SERVICES, | | | | | | TRANSFUSION | | | | | | MEDICINE | | + + + + + + + + | Specimen | + + | Blood - Blood | + + + + + + + | Performing | Address | City/State/Zipcode | Phone Number | | Organization | | | | + + + + + | [facility] | [address] | [place] [address] | | | SERVICES, | [address] | | | | TRANSFUSION MEDICINE | | | | + + + + + ABO & RH TYPE (01/22/2015 3:26 PM PDT) + + + + + + | Component | Value | Ref Range | Performed | Pathologist | | | | | At | Signature | + + + + + + | ABO Group | B | | [facility] | | | | | | LABORATORY | | | | | | SERVICES, | | | | | | TRANSFUSION | | | | | | MEDICINE | | + + + + + + | Rh Type | Positive | | [facility] | | | | | | LABORATORY | | | | | | SERVICES, | | | | | | TRANSFUSION | | | | | | MEDICINE | | + + + + + + + + | Specimen | + + | Blood - Blood | + + + + + + + | Performing | Address | City/State/Zipcode | Phone Number | | Organization | | | | + + + + + | [facility] | [address] | [place] [address] | | | SERVICES, | [address] | | | | TRANSFUSION MEDICINE | | | | + + + + + COMPLETE METABOLIC SET (NA,K,CL,CO2,BUN,CREAT,GLUC,CA,AST,ALT,BILI TOTAL,ALK PHOS,ALB,PROT TOTAL) (01/22/2015 3:26 PM PDT) + +---------+ + + + | Component | Value | Ref Range | Performed | Pathologist | | | | | At | Signature | + +---------+ + + + | GLUCOSE, | 190 (H) | 60 - 99 mg/dL | [facility] | | | PLASMA | | | LABORATORY | | | (LAB) | | | SERVICES, | | | | | | CORE | | + +---------+ + + + | BUN, PLASMA | 10 | 6 - 20 mg/dL | [facility] | | | (LAB) | | | LABORATORY | | | | | | SERVICES, | | | | | | CORE | | + +---------+ + + + | CREATININE | 0.69 | 0.60 - 1.10 | [facility] | | | PLASMA | | mg/dL | LABORATORY | | | (LAB) | | | SERVICES, | | | | | | CORE | | + +---------+ + + + | EGFR | >60 | >60 mL/min | [facility] | | | - | | | LABORATORY | | | PRYDEINIG | | | SERVICES, | | | | | | CORE | | + +---------+ + + + | EGFR NON | >60 | >60 mL/min | [facility] | | | -ALIZA | | | LABORATORY | | | RICAN | | | SERVICES, | | | | | | CORE | | + +---------+ + + + | SODIUM, | 140 | 136 - 145 | [facility] | | | PLASMA | | mmol/L | LABORATORY | | | (LAB) | | | SERVICES, | | | | | | CORE | | + +---------+ + + + | POTASSIUM, | 3.6 | 3.4 - 5.0 | [facility] | | | PLASMA | | mmol/L | LABORATORY | | | (LAB) | | | SERVICES, | | | | | | CORE | | + +---------+ + + + | CHLORIDE, | 102 | 97 - 108 mmol/L | [facility] | | | PLASMA | | | LABORATORY | | | (LAB) | | | SERVICES, | | | | | | CORE | | + +---------+ + + + | TOTAL CO2, | 24 | 21 - 32 mmol/L | [facility] | | | PLASMA | | | LABORATORY | | | (LAB) | | | SERVICES, | | | | | | CORE | | + +---------+ + + + | CALCIUM, | 9.0 | 8.6 - 10.2 | [facility] | | | PLASMA | | mg/dL | LABORATORY | | | (LAB) | | | SERVICES, | | | | | | CORE | | + +---------+ + + + | BILIRUBIN | 0.7 | 0.3 - 1.2 mg/dL | [facility] | | | TOTAL | | | LABORATORY | | | | | | SERVICES, | | | | | | CORE | | + +---------+ + + + | TOTAL | 7.3 | 6.4 - 8.2 g/dL | [facility] | | | PROTEIN, | | | LABORATORY | | | PLASMA | | | SERVICES, | | | (LAB) | | | CORE | | + +---------+ + + + | ALBUMIN, | 3.0 (L) | 3.5 - 4.7 g/dL | [facility] | | | PLASMA | | | LABORATORY | | | (LAB) | | | SERVICES, | | | | | | CORE | | + +---------+ + + + | ALK PHOS | 100 (H) | 42 - 98 U/L | [facility] | | | | | | LABORATORY | | | | | | SERVICES, | | | | | | CORE | | + +---------+ + + + | AST(SGOT) | 71 (H) | <=41 U/L | [facility] | | | | | | LABORATORY | | | | | | SERVICES, | | | | | | CORE | | + +---------+ + + + | ALT (SGPT) | 51 | <=60 U/L | [facility] | | | | | | LABORATORY | | | | | | SERVICES, | | | | | | CORE | | + +---------+ + + + | ANION | 16 (H) | 4 - 11 mmol/L | [facility] | | | GAP(ALB | | | LABORATORY | | | CORRECTED) | | | SERVICES, | | | | | | CORE | | + +---------+ + + + | POTASSIUM | No Hemo | | [facility] | | | CMNT | | | LABORATORY | | | | | | SERVICES, | | | | | | CORE | | + +---------+ + + + | BILI T CMNT | No Hemo | | [facility] | | | | | | LABORATORY | | | | | | SERVICES, | | | | | | CORE | | + +---------+ + + + | AST CMNT | No Hemo | | [facility] | | | | | | LABORATORY | | | | | | SERVICES, | | | | | | CORE | | + +---------+ + + + | ANION GAP | 14 | mmol/L | [facility] | | | | | | LABORATORY | | | | | | SERVICES, | | | | | | CORE | | + +---------+ + + + + + | Specimen | + + | Blood - Blood | + + + + + | Narrative | Performed At | + + + | GFR is estimated using the MDRD equation recommended by the | [facility] | | National Kidney Disease Education Program. Estimated GFR | LABORATORY | | Interpretive Information: <60 mL/min/1.73 sq m | SERVICES, CORE | | Chronic Kidney Disease <15 mL/min/1.73 sq m | | | Kidney Failure Estimated GFR greater that 60 mL/min/1.73 sq m is of | | | limited clinical value. The MDRD equation is not valid in the | | | following situations: - Patients under 18 years of age - Severe | | | malnutrition or obesity - Vegetarian diet - Rapidly changing kidney | | | function | | + + + + + + + + | Performing | Address | City/State/Zipcode | Phone Number | | Organization | | | | + + + + + | [facility] | [address] | [place] [address] | | | MIR [place]IN | [address] | | | + + + + + HEMOGLOBIN A1C,POC (01/22/2015 3:19 PM PDT) + +---------+ + + + | Component | Value | Ref Range | Performed | Pathologist | | | | | At | Signature | + +---------+ + + + | HEMOGLOBIN | 7.5 (A) | 4.0 - 5.7 % | [facility], | | | A1C,POC | | | POINT OF | | | | | | CARE TESTS | | + +---------+ + + + + + | Specimen | + + | Blood | + + + + + + + | Performing | Address | City/State/Zipcode | Phone Number | | Organization | | | | + + + + + | [facility] | [address] | [place] [address] | | | OF CARE TESTS | | | | + + + + + 12 LEAD ECG (01/22/2015 2:16 PM PDT) + + + + + + | Component | Value | Ref Range | Performed | Pathologist | | | | | At | Signature | + + + + + + | VENTRICULAR | 90 | bpm | [facility] | | | RATE | | | OF | | | | | | CARDIOLOGY | | + + + + + + | ATRIAL RATE | 90 | bpm | [facility] | | | | | | OF | | | | | | CARDIOLOGY | | + + + + + + | P-R | 184 | ms | [facility] | | | INTERVAL | | | OF | | | | | | CARDIOLOGY | | + + + + + + | P AXIS | 65 | deg | [facility] | | | | | | OF | | | | | | CARDIOLOGY | | + + + + + + | QRS | 76 | ms | [facility] | | | DURATION | | | OF | | | | | | CARDIOLOGY | | + + + + + + | QT | 372 | ms | [facility] | | | | | | OF | | | | | | CARDIOLOGY | | + + + + + + | AJAY-AAMIR | 455 | ms | [facility] | | | | | | OF | | | | | | CARDIOLOGY | | + + + + + + | R AXIS | -49 | deg | [facility] | | | | | | OF | | | | | | CARDIOLOGY | | + + + + + + | T AXIS | 46 | deg | [facility] | | | | | | OF | | | | | | CARDIOLOGY | | + + + + + + | ECG | SINUS RHYTHM- NORMAL ECG | | [facility] | | | IMPRESSION | -Electronically signed | | OF | | | | by: JANAY CAPONE | | CARDIOLOGY | | | | 01-23-2015 07:32:35 | | | | + + + + + + + + | Specimen | + + | | + + + + + | Narrative | Performed At | + + + | | | + + + + + + + + | Performing | Address | City/State/Zipcode | Phone Number | | Organization | | | | + + + + + | [facility] | [address] | [place], [place] | | | CARDIOLOGY | [address] | [address] | | + + + + + documented in this encounter Visit Diagnoses + + | Diagnosis | + + | Preoperative examination, unspecified - Primary | + + | Morbid obesity with BMI of 70 and over, adult (HCC) | + + | Sleep apnea Unspecified sleep apnea | + + | Posttraumatic stress disorder | + + | Essential hypertension | + + | Preop examination Preoperative examination, unspecified | + + | Other specified pre-operative examination | + + documented in this encounter
--- OUTSIDE RECORDS SUMMARY | ~2019-06-14 | XMS | Encounter Summary ---
Demographics + + + | Address | [address] | | | [place] [address] | + + + | Home Phone | | + + + | Preferred Language | Unknown | + + + | Marital Status | Single | + + + | Episcopal Affiliation | NRP | + + + | Race | White | + + + | Ethnic Group | Not or | + + + Author + + + | Author | [facility] | + + + | Organization | [facility] | + + + | [...] | + + +---------+ + | Lana Dayton | ECON | Unknown | | + + +---------+ + Care Team Providers + +------+ + | Care Music Specialist Name | Role | Phone | + +------+ + | Bassam Ross DO | PCP | | + +------+ + Reason for Visit + + + | Reason | Comments | + + + | Committee Review | High Risk | | Decision | | + + + Encounter Details +--------+ + + + + | Date | Type | Department | Care Team | Description | +--------+ + + + + | 10/14/ | Telephone | Dig[facility]ive [facility] | Thania Cardenas, | Committee Review | | 2013 | | Center at [facility] [address] | [facility] [address] | Decision (High Risk) | | | | [address] | [place], [place] | | | | | Mailcode: [place] | [address] | | | | | [facility] and | [phone] | | | | | [place] [address] | | | | | | [place], [place] | | | | | | [address] | | | | | | [phone] | | | +--------+ + + + + Social History + +-------+ +--------+------+ | Tobacco Use | Types | Packs/Day | Years | Date | | | | | Used | | + +-------+ +--------+------+ | Former Smoker | | | | | + +-------+ +--------+------+ + + | Comments: quit 12 years ago | + + + + +---------+ + | Alcohol Use | Drinks/Week | oz/Week | Comments | + + +---------+ + | Yes | | | social drinks | + + +---------+ + + + [...] + + documented as of this encounter Plan of Treatment Not on filedocumented as of this encounter Results PTH, SERUM (11/03/2013 12:50 PM PDT) + +--------+ + + + | Component | Value | Ref Range | Performed | Pathologist | | | | | At | Signature | + +--------+ + + + | PTH, SERUM | 13 (L) | 15 - 75 pg/mL | [facility] | | | | | | [place] | | + +--------+ + + + + + | Specimen | + + | Blood - Blood | + + + + + + + | Performing | Address | City/State/Zipcode | Phone Number | | Organization | | | | + + + + + | [facility] | [address] | [place] [address] | | | [place] | | | | + + + + + VITAMIN D, 25-HYDROXY, SERUM (11/03/2013 12:50 PM PDT) + + + + + + | Component | Value | Ref Range | Performed | Pathologist | | | | | At | Signature | + + + + + + | VITAMIN D | 26.9 (L) | 30 - 80 ng/mL | [facility] | | | 25 HYDROXY | | | LABORATORY | | | | | | SERVICES, | | | | | | SPECIAL IMM | | | | | | + COAG | | + + + + + + + + | Specimen | + + | Blood - Blood | + + + + + | Narrative | Performed At | + + + | REFERENCE INTERVAL: Vitamin D, 25-Hydroxy 0-17years: | [facility] | | Deficiency: less than 20 ng/mL Optimum level: | LABORATORY | | greater than or equal to 20 ng/mL* | SERVICES, | | *(Gomez CL et al. Pediatrics 2008; 122:1128-38.) 18 | SPECIAL IMM + | | years and older: Deficiency: less than 20 | COAG | | ng/mL Insufficiency: 20-29 ng/mL | | | Optimum Level: 30-80 ng/mL High: | | | 81-150 ng/ml Toxic: Greater than | | | 150 ng/mL This assay accurately quantifies the sum of Vitamin D3 | | | 25-hydroxy and Vitamin D2, 25-hydroxy. Reference range | | | change effective 12/23/2012. | | + + + + + + + + | Performing | Address | City/State/Zipcode | Phone Number | | Organization | | | | + + + + + | [facility] | [address] [facility] | [place] [address] | | | SERVICES, SPECIAL | [address] | | | | IMM + COAG | | | | + + + + + LIPID SET (TRIG, T CHOL, HDL, CALC LDL) (11/03/2013 12:50 PM PDT) + +---------+ + + + | Component | Value | Ref Range | Performed | Pathologist | | | | | At | Signature | + +---------+ + + + | CHOLESTEROL | 217 (H) | <200 mg/dL | [facility] | | | (LAB) | | | LABORATORY | | | | | | SERVICES, | | | | | | CORE | | + +---------+ + + + | TRIGLYCERID | 152 (H) | <150 mg/dL | [facility] | | | ES | | | LABORATORY | | | | | | SERVICES, | | | | | | CORE | | + +---------+ + + + | HDL | 66 | >40 mg/dL | [facility] | | | CHOLESTEROL | | | LABORATORY | | | | | | SERVICES, | | | | | | CORE | | + +---------+ + + + | HDL CMNT | No Hemo | | [facility] | | | | | | LABORATORY | | | | | | SERVICES, | | | | | | CORE | | + +---------+ + + + | LDL | 121 (H) | <100 mg/dL | [facility] | | | CHOLESTEROL | | | LABORATORY | | | , | | | SERVICES, | | | CALCULATED | | | CORE | | + +---------+ + + + | VLDL | 30 | <31 mg/dL | [facility] | | | CHOLESTEROL | | | LABORATORY | | | , | | | SERVICES, | | | CALCULATED | | | CORE | | + +---------+ + + + | NON-HDL | 151 (H) | <130 mg/dL | [facility] | | | CHOLESTEROL | | | LABORATORY | | | | | | SERVICES, | | | | | | CORE | | + +---------+ + + + + + | Specimen | + + | Blood - Blood | + + + + + | Narrative | Performed At | + + + | Cholesterol Reference Range: Desirable: <200 | [facility] | | mg/dL Borderline High: 200 - 239 mg/dL | LABORATORY | | High: >=240 mg/dL LDL Cholesterol | SERVICES, CORE | | Reference Range: Optimal: <100 mg/dL | | | Near Optimal: 100-129 mg/dL Borderline High: 130-159 | | | mg/dL High: 160-189 mg/dL | | | Very High: >=190 mg/dL non-HDL Cholesterol Reference Range: | | | Optimal: <130 mg/dL Near Optimal: | | | 130-159 mg/dL Borderline High: 160-189 mg/dL | | | High: 190-209 mg/dL Very High: | | | >=210 mg/dL Triglyceride Reference Range: | | | Normal: <150 mg/dL Borderline High: 150-199 mg/dL | | | High: 200-499 mg/dL Very High: >=500 mg/dL | | | HDL Reference Range: High Risk: <40 mg/dL | | | Desirable: >=60 mg/dL | | + + + + + + + + | Performing | Address | City/State/Zipcode | Phone Number | | Organization | | | | + + + + + | [facility] | [address] | [place] [address] | | | SERVICES, CORE | [address] | | | + + + + + HEMOGLOBIN A1C, BLOOD (11/03/2013 12:50 PM PDT) + + + + + + | Component | Value | Ref Range | Performed | Pathologist | | | | | At | Signature | + + + + + + | HEMOGLOBIN | 5.2Comment: Hbg A1c | <5.7 % | [facility] | | | A1C | Interpretive | | LABORATORY | | | | Information: | | SERVICES, | | | | <5.7% - Normal | | SPECIAL IMM | | | | 5.7-6.4% - Consistent | | + COAG | | | | with pre-diabetes | | | | | | >6.4% - Consistent with | | | | | | diabetes | | | | + + + + + + + + | Specimen | + + | Blood - Blood | + + + + + + + | Performing | Address | City/State/Zipcode | Phone Number | | Organization | | | | + + + + + | [facility] | [address] | [place] [address] | | | SERVICES, SPECIAL | [address] | | | | IMM + COAG | | | | + + + + + TSH (11/03/2013 12:50 PM PDT) + +-------+ + + + | Component | Value | Ref Range | Performed | Pathologist | | | | | At | Signature | + +-------+ + + + | TSH | 4.38 | 0.44 - 4.75 | [facility] | | | | | mIU/L | LABORATORY | | | | | | SERVICES, | | | | | | CORE | | + +-------+ + + + + + | Specimen | + + | Blood - Blood | + + + + + | Narrative | Performed At | + + + | TSH reference ranges are influenced by a variety of environmental | [facility] | | influences, age, gender and ethnicity. The supplied reference limits | LABORATORY | | are based on published values utilizing a similar TSH assay, and | SERVICES, CORE | | should be interpreted with caution. | | + + + + + + + + | Performing | Address | City/State/Zipcode | Phone Number | | Organization | | | | + + + + + | [facility] | [address] [facility] [facility] | [place] [address] | | | SERVICES, CORE | [address] | | | + + + + + COMPLETE METABOLIC SET (NA,K,CL,CO2,BUN,CREAT,GLUC,CA,AST,ALT,BILI TOTAL,ALK PHOS,ALB,PROT TOTAL) (11/03/2013 12:50 PM PDT) + + + + + + | Component | Value | Ref Range | Performed | Pathologist | | | | | At | Signature | + + + + + + | GLUCOSE, | 103 (H) | 60 - 99 mg/dL | [facility] | | | PLASMA | | | LABORATORY | | | (LAB) | | | SERVICES, | | | | | | CORE | | + + + + + + | BUN, PLASMA | 15 | 6 - 20 mg/dL | [facility] | | | (LAB) | | | LABORATORY | | | | | | SERVICES, | | | | | | CORE | | + + + + + + | CREATININE | 0.59 (L) | 0.60 - 1.10 | [facility] | | | PLASMA | | mg/dL | LABORATORY | | | (LAB) | | | SERVICES, | | | | | | CORE | | + + + + + + | EGFR | >60 | >60 mL/min | [facility] | | | - | | | LABORATORY | | | ARGENTINE | | | SERVICES, | | | | | | CORE | | + + + + + + | EGFR NON | >60 | >60 mL/min | [facility] | | | -ALIZA | | | LABORATORY | | | RICAN | | | SERVICES, | | | | | | CORE | | + + + + + + | SODIUM, | 140 | 136 - 145 | [facility] | | | PLASMA | | mmol/L | LABORATORY | | | (LAB) | | | SERVICES, | | | | | | CORE | | + + + + + + | POTASSIUM, | 4.3 | 3.4 - 5.0 | [facility] | | | PLASMA | | mmol/L | LABORATORY | | | (LAB) | | | SERVICES, | | | | | | CORE | | + + + + + + | CHLORIDE, | 100 | 97 - 108 mmol/L | [facility] | | | PLASMA | | | LABORATORY | | | (LAB) | | | SERVICES, | | | | | | CORE | | + + + + + + | TOTAL CO2, | 31 | 21 - 32 mmol/L | [facility] | | | PLASMA | | | LABORATORY | | | (LAB) | | | SERVICES, | | | | | | CORE | | + + + + + + | CALCIUM, | 10.4 (H) | 8.6 - 10.2 | [facility] | | | PLASMA | | mg/dL | LABORATORY | | | (LAB) | | | SERVICES, | | | | | | CORE | | + + + + + + | BILIRUBIN | 0.5 | 0.3 - 1.2 mg/dL | [facility] | | | TOTAL | | | LABORATORY | | | | | | SERVICES, | | | | | | CORE | | + + + + + + | TOTAL | 7.4 | 6.4 - 8.2 g/dL | [facility] | | | PROTEIN, | | | LABORATORY | | | PLASMA | | | SERVICES, | | | (LAB) | | | CORE | | + + + + + + | ALBUMIN, | 3.6 | 3.5 - 4.7 g/dL | [facility] | | | PLASMA | | | LABORATORY | | | (LAB) | | | SERVICES, | | | | | | CORE | | + + + + + + | ALK PHOS | 89 | 42 - 98 U/L | [facility] | | | | | | LABORATORY | | | | | | SERVICES, | | | | | | CORE | | + + + + + + | AST(SGOT) | 20 | 15 - 41 U/L | [facility] | | | | | | LABORATORY | | | | | | SERVICES, | | | | | | CORE | | + + + + + + | ALT (SGPT) | 27 | 12 - 60 U/L | [facility] | | | | | | LABORATORY | | | | | | SERVICES, | | | | | | CORE | | + + + + + + | ANION | 10 | 4 - 11 mmol/L | [facility] | | | GAP(ALB | | | LABORATORY | | | CORRECTED) | | | SERVICES, | | | | | | CORE | | + + + + + + | POTASSIUM | No Hemo | | [facility] | | | CMNT | | | LABORATORY | | | | | | SERVICES, | | | | | | CORE | | + + + + + + | BILI T CMNT | No Hemo | | [facility] | | | | | | LABORATORY | | | | | | SERVICES, | | | | | | CORE | | + + + + + + | AST CMNT | No Hemo | | [facility] | | | | | | LABORATORY | | | | | | SERVICES, | | | | | | CORE | | + + + + + + | ANION GAP | 9 | mmol/L | [facility] | | | [...] the MDRD equation recommended by the | [facility] | | National Kidney Disease Education Program. [...] | + + + + + | [facility] | [address] | [place] [address] | | | [place], [place] | [address] | | | + + + + + documented in this encounter Visit Diagnoses + + | Diagnosis | + + | Morbid obesity with BMI of 70 and over, adult (HCC) - Primary | + + documented in this encounter"
--- OUTSIDE RECORDS SUMMARY | ~2019-06-14 | XMS | Encounter Summary ---
Demographics + + + | Address | [address] | | | [place] [address] | + + + | Home Phone | | + + + | Preferred Language | Unknown | + + + | Marital Status | Single | + + + | Evangelical Affiliation | NRP | + + + | Race | White | + + + | Ethnic Group | Not or | + + + Author + + + | Author | [facility] | + + + | Organization | [facility] | + + + | Address [...] | + + +---------+ + | Lana Cameron | ECON | Unknown | | + + +---------+ + Care Team Providers + +------+ + | Care Tufting Machine Operator Name | Role | Phone | + +------+ + | Bassam Ross DO | PCP | | + +------+ + Reason for Visit + + + | Reason | Comments | + + + | Postoperative visit | | + + + Office Visit - E/M Services (Routine) +--------+--------+ + + + + | Status | Reason | Specialty | Diagnoses / | Referred By | Referred To | | | | | Procedures | Contact | Contact | +--------+--------+ + + + + | Closed | | Surgery | | [facility] | Bar | | | | | | Epic Dept | [facility] | | | | | | | [facility] | | | | | | | [address] | | | | | | | Mailcode: | | | | | | | [place] [facility] | | | | | | | [facility] and | | | | | | | Healing, | | | | | | | [address] | | | | | | | [place], [place] | | | | | | | [address] | | | | | | | Phone: | | | | | | | [phone] | | | | | | | Fax: | | | | | | | [phone] | +--------+--------+ + + + + Encounter Details +--------+---------+ + + + | Date | Type | Department | Care Team | Description | +--------+---------+ + + + | 02/26/ | Office | Digestive Health | Bianca Venegas, | History of bariatric | | 2017 | Visit | Center at [facility] [address] | MD [address] | surgery (Primary | | | | [address] | [place], [place] | Dx); S/P | | | | Mailcode: Center | [address] | laparoscopic sleeve | | | | for Health and | [phone] | gastrectomy; Morbid | | | | Healing, [address] | | obesity with BMI of | | | | [place], [place] | | 60.0-69.9, adult | | | | [address] | | ([facility]) | | | | [phone] | | | +--------+---------+ + + + [...] + + + | Blood Pressure | 148/71 | 02/26/2018 1:01 PM | | | | | PDT | | + + + + + | Pulse | 89 | 02/26/2018 1:01 PM | | | | | PDT | | + + + + + | Temperature | 36.8 C (98.3 F) | 02/26/2018 1:01 PM | | | | | PDT | | + + + + + | Respiratory Rate | 20 | 02/26/2018 1:01 PM | | | | | PDT | | + + + + + | Oxygen Saturation | - | - | | + + + + + | Inhaled Oxygen | - | - | | | Concentration | | | | + + + + + | Weight | 178.9 kg (394 lb 4.8 | 02/26/2018 1:01 PM | | | | oz) | PDT | | + + + + + | Height | 160 cm (5' 3") | 02/26/2018 1:01 PM | | | | | PDT | | + + + + + | Body Mass Index | 69.85 | 02/26/2018 1:01 PM | | | | | PDT | | + + + + + documented in this encounter Patient Instructions Patient Instructions Bianca Venegas MD - 02/26/2018 11:40 AM PDTFormatting of this note m ight be different from the original. Weight loss pharmacotherapy cost chart Brand (generic) Ibrahim (30 day / 90 day) How Taken Comment Adipex-P (Phentermine tablet or capsule) Lomaira (Phentermine tablet) ~$10-15 / ~$12-24 ~$13-20 / ~$25-50 Orally, once daily. Orally, up to 3 times daily. Phentermine 37.5 mg tablet, 30 mg capsule. Lomaira = 8 mg tablet. Topamax (Topiramate IR tablet) Topamax (Topiramate ER tablet) ~$15 / ~$30 ~$300 / ~$900 Orally, twice daily.* Orally, once daily. Topiramate 200 mg per day. IR: immediate release. ER: extended releas e Qsymia (Phentermine+Topiramate tablet) ~$190-220 / ~$560-620 Orally, once daily Savings car d available at www.[employer] no government funded patients, $95 off 1st month then $65 off per month thereafter. Belviq (Lorcaserin Immediate Release (IR) or extended release (XR) tablets) ~$270-280 / ~$8 00-830 Orally, twice daily* Savings card available at www.[employer] no government funde d patients (unless Medicare part D or does not cover prescription), $165-195 off per month. Wellbutrin (Bupropion Sustained Release (SR) tablet or extended length (XL) tablet) ~$17-25 / ~$37-60 Orally, once or daily Bupropion 300 mg per day. SR tablets slightly less expensiv e but twice daily dosing. Revia (Naltrexone tablet) ~$17-34 / $40-90 Orally, once daily Naltrexone 25-50 mg daily. Contrave (Bupropion+Naltrexone tablet) ~$235 / ~$700 Orally, twice daily* Savings card moriah frazier at www.contrave.Treedom everyone but Medicaid eligible, takes up to $164 off per month or $492 off per 3 months. Saxenda (Liraglutide) ~$1200 / ~$3600 Subcutaneous injection, once daily Savings card avail able at www.[employer] max benefit of $200 off per prescription. *Bold = brand name only. *Take second dose at dinnertime. Of note, except where otherwise noted, all prices are from www.[employer] as of 08/06/2017, a re retail prices (no insurance coverage) and assume maximal therapeutic dosing It is safe to use NSAIDs (anti-inflammatory medications) after sleeve gastrectomy- this inc ludes motrin/ibuprofen/naproxen/naprosyn (advil/aleve). No activity restrictions IF you are still taking your omeprazole (or other antacid), you can try to wean off it: Ta ke it every other day for 2 wks, and then take it twice a week for one week. If you have no acid reflux/GERD/heartburn, stop taking your omeprazole. You DO NOT need to cut pills or open capsules. Only do this if it is difficult to swallow or hurts your stomach. Otherwise, take all medications normally. You can swim/soak your incisions. It is safe to use lotions/creams on incisions. If your vitamins or other meds upset your stomach, try taking them spaced out during your d ay or talk to our PCP as well, about if any medications can be adjusted. Please visit with our Spindle Sander (RD) for instructions about your Bariatric diet, assistance with calorie counts, tips and tricks for working with your diet restrictions, an d recipes after bariatric surgery. Daily yogurt; even just 1 tablespoon twice a day will provide enough probiotics to optimize digestion. Try to use a high-quality, probiotic-dense yogurt (eg Maria A's, [place], Lif eway Kefir, Manufacturing Operator [employer] [place] Yogurt). Remember to chew your food well, eat small bites, and work on eating slowly. Avoid drinkin g fluid within 20 min before or after meals. Try to exercise at least 30 min four times each week. Try to add some strength training a nd resistance work, in addition to cardio exercise. Water exercises can be very useful if y ou have joint pain/back pain or other limitations. Check with your local gyms and [employer] /community centers for classes. Our psychologist is available to see you after surgery, if you are feeling stressors or nee d emotional support. Please let us know if you'd like to see them. We have monthly support groups and an online facebook support group. We encourage particip ation in a support group as this does encourage healthy habits and reinforces all of the thi ngs your learned in your classes and during appointments with our RD. Control (FOR FEMALES OF REPRODUCTIVE AGE): Bariatric surgery can markedly improve in fertility, or make you more fertile. For the first 18 months after bariatric surgery, we re commend good control as rapid weight loss puts you at very high risk for miscarriage. We DO NOT recommend until you are at least 18month after surgery. Be proactive in your healthcare. Followup with your PCP. Get your regular screening exams such as mammograms, colonoscopies etc. Know your insurance and your insurance benefits, an d if they are ever unclear, call your insurance company for clarification (look on the back of your insurance card for the contact phone number). documented in this encounter Progress Notes Bianca Venegas MD - 02/26/2018 11:40 AM PDTI have reviewed her outside UGI images. She has a retained fundus with normal appearing sleeve beyond that point. This is consiste nt with the inability to expose the fundus during surgery due to hepatomegaly. Will need to place on very strict liver shrinking diet when time for revisional surgery in order to truly minimize the size of her gastric pouch. Bianca Venegas MD, FACS, [facility] Division of Bariatric Surgery [facility] | [address] | [place], [place] | [address] | Bianca Gonzalez MD - 02/26/2018 11:40 AM PDT BARIATRIC SURGERY [facility] FOLLOW UP REASON FOR VISIT: Long-term bariatric followup 02/07/2015 HISTORY: Aspen Darden is a(n) 47 y.o. female with history of Past Medical History: Diagnosis Date Abnormal ThinPrep Pap test of vagina Anxiety Asthma Bipolar disorder (HCC) Cough CPAP/BiPAP dependence Depression Essential hypertension, benign Hx of laparoscopic gastric banding 09/22/2013 Leaking of urine Liver enlargement 01/2015 Morbid obesity with BMI of 70 and over, adult (HCC) 09/22/2013 Murmur OCD (obsessive compulsive disorder) ANNABEL (obstructive sleep apnea) Poor intravenous access Pulmonary hypertension (HCC) Shortness of breath Thyroid disease Here for 3 yr appt INTERVAL HISTORY: Pt has lost 35lbs since preop visit. Lifetime max 568lbs 427lb prior to surgery on 08/14/2014 Had LAGB first. Was in place for 6yrs, had tubing break so removed. Lost about 268lbs. H ad a panniculectomy at that time Then underwent aborted sleeve due to hepatomegaly. Did a VLCD and then went back to [facility]. Per op note- unable to expose hiatus fully, so could not complete fundus resection. Has lost weight since surgery but does not feel any restriction. She is working with Dr. Mclaughlin and doing medical management. She tried phentermine but ga ve her more palpitations. She had a negative stress test (per patient report). Started jardience and noticed a few lbs weight loss. Positive HTN positive HLP yes DM2- on metformin Symptoms: Nausea: None Dysphagia: None Vomiting: None Heartburn: None Abd Pain: None Constipation: None Diarrhea: None SUPPLEMENTS: MVI: yes Calcium supplement: yes Vit D: yes B12: Yes FeSo4:yes VITAL SIGNS: BP 148/71 | Pulse 89 | Temp (Src) 36.8 C (98.3 F) (Oral) | RR 20 | Ht 1.6 m (5' 3") | W t 178.9 kg (394 lb 4.8 oz) | BMI 69.85 kg/(m^2) Exam WNWD, NAD, AAOx3, pleasant SURGICAL SITE: Well healed incisions IMPRESSION: A(n) 47 y.o. female s/p LSG (with residual fundus?), not having restriction PLAN: - UGI to assess sleeve size- will order for [place] - continue taking vitamins, nutrition labs up to date. Taking iron for low ferritin levels . - given chart of medications to see if she would like to try a medication for weight loss w shyla going back through the surgery pathway. She would likely do best with revision to marcus kenna bypass but if her hepatomegaly is not improved, she may not be able to have the procedur e in it's ideal fashion. Stressed the importance of continued weight loss and that if she g ains weight, surgery will be unlikely to be approved. - walk/exercise regularly. If unable to walk, consider PT referral and water exercises - Meet with RD to review diet stages and recommendations - consider attendance at support groups - see PCP for ongoing management of chronic medications and medical problems. I have rev'd medications and problem list as pertains to bariatric surgery today. I spent 20 minutes with the patient and >50% of this time was spent counseling the patient about the topics and plan mentioned above. I spent 31 minutes doing chart review in preparation for this patient's visit. Electronically signed on 02/26/2018 at 1:09 PM BIANCA VENEGAS MD. Division of Bariatric Surgery [facility] | [address] | [place], [place] | [address] | documented in this en counter Plan of Treatment Not on filedocumented as of this encounter Visit Diagnoses + + | Diagnosis | + + | History of bariatric surgery - Primary Bariatric surgery status | + + | S/P laparoscopic sleeve gastrectomy | + + | Morbid obesity with BMI of 60.0-69.9, adult (HCC) | + + documented in this encounter
--- OUTSIDE RECORDS SUMMARY | ~2019-06-14 | XMS | Encounter Summary ---
Demographics + + + | Address | [address] | | | [place] [address] | + + + | Home Phone | | + + + | Preferred Language | Unknown | + + + | Marital Status | Single | + + + | Taoism Affiliation | NRP | + + + | Race | White | + + + | Ethnic Group | Not or | + + + Author + + + | Author | [facility] | + + + | Organization | [facility] | + + + | Address | [...] Team Providers + +------+ + | Care Grocery Manager Name | Role | Phone | + +------+ + | Bassam Ross DO | PCP | | + +------+ + Reason for Visit + + + | Reason | Comments | + + + | Bariatric Nutrition | | + + + Benefits Check (Routine) +--------+--------+ + + + + | Status | Reason | Specialty | Diagnoses / | Referred By | Referred To | | | | | Procedures | Contact | Contact | +--------+--------+ + + + + | Closed | | Nutrition | | [facility] | Fn | | | | | | Epic Dept | [facility] | | | | | | | [facility] [address] | | | | | | [address] | | | | | | | Mailcode: | | | | | | | [place] for | | | | | | | Health and | | | | | | | Healing, | | | | | | | [address] | | | | | | | [place], [place] | | | | | | | [address] | | | | | | | Phone: | | | | | | | [phone] | | | | | | | Fax: | | | | | | | [phone] | +--------+--------+ + + + + Encounter Details +--------+---------+ + + + | Date | Type | Department | Care Team | Description | +--------+---------+ + + + | 11/13/ | Office | Digestive Health | Margot Contreras RD | S/P laparoscopic | | 2016 | Visit | Center at [address] | [address] | sleeve gastrectomy | | | | [address] | [address] [place], | (Primary Dx); Morbid | | | | Mailcode: [place] | [place] [address] | obesity, | | | | for Health and | | unspecified obesity | | | | Healing, [address] | | type ([facility]); Diabetes | | | | [place], [place] | | mellitus type 2, | | | | [address] | | diet-controlled | | | | [phone] | | (HCC) | +--------+---------+ + + + Social History [...] Blood Pressure | - | - | | + + + + + | Pulse | - | - | | + + + + + | Temperature | - | - | | + + + + + | Respiratory Rate | - | - | | + + + + + | Oxygen Saturation | - | - | | + + + + + | Inhaled Oxygen | - | - | | | Concentration | | | | + + + + + | Weight | 166.7 kg (367 lb 9.6 | 11/14/2015 12:47 PM | | | | oz) | PDT | | + + + + + | Height | - | - | | + + + + + | Body Mass Index | 65.12 | 08/08/2015 3:01 PM | | | | | PST | | + + + + + documented in this encounter Progress Notes Margot Contreras, JAYJAY - 11/14/2015 12:47 PM PDT Nutrition Counseling: Post-op Bariatric Surgery Follow-Up Patient referred by: [place] [address] Documented time of visit: 12:45 to 1:05 (20 minutes ldhl-cm-cjpr with patient) Surgery: Sleeve Gastrectomy Date of Surgery: 02/07/15 Subjective: Under stress related to her fathers health issues & her daughter is smoking molina maciel + she got arrested because her daughter put some make-up in her purse at [facility]. Off track x at least 3 weeks (stress eating). Has a supportive boyfriend but he likes to eat. Tolerating Bariatric Diet: Yes Current Physical Activity: walking, no gym because she cannot afford it. Wants a referral t o PT. Changes in Diabetes Medications since surgery: no Testing blood glucose: no Objective: Ht Readings from Last 1 Encounters: 08/08/15 1.6 m (5' 3") Wt Readings from Last 2 Encounters: 11/14/15 166.742 kg (367 lb 9.6 oz) 08/08/15 162.433 kg (358 lb 1.6 oz) 06/26/15 163.885 kg (361 lb 4.8 oz) 03/08/15 174.091 kg (383 lb 12.8 oz) 01/22/15 188.696 kg (416 lb) No weight in Epic on day of surgery pt reports weight ~414lbs Body mass index is 65.13 kg/(m^2). Weight change since surgery: lost ~56lbs, regained 9 PMHx: Past Medical History Diagnosis Date Essential hypertension, benign Shortness of breath Asthma Cough ANNABEL (obstructive sleep apnea) CPAP/BiPAP dependence Murmur Leaking of urine Abnormal ThinPrep Pap test of vagina Anxiety Depression Bipolar disorder (HCC) OCD (obsessive compulsive disorder) Thyroid disease Hx of laparoscopic gastric banding 09/22/2013 Morbid obesity with BMI of 70 and over, adult (HCC) 09/22/2013 Pulmonary hypertension (HCC) Mild. By echo and chest xray findings. Followed by petrography teacher in [place]. Poor intravenous access Liver enlargement 01/2015 intraop Food logs: Yes Food choices: Protein shakes in the morning (Premier, Isopure, New Whey), salads but eating more fried food while in the hospital. Planning on eating more fish, chicken, veggies Fluid choices: water, decaf iced tea, water. Supplementation: multivitamin, calcium with vitamin D and vitamin B12 Assessment: Wanting to get back on track - plans on taking her water pills, continuing with support group + working with her counselor. Following Bariatric Diet Protocol: Not consistently Meeting protein goals: appears to be with protein shake Meeting fluid goals: Yes Fluids from meals: Yes Plan: Reviewed nutrition goals after bariatric surgery. Aim [...] multivitamin & mineral (with iron) supplement, 2/day -500 mg calcium citrate with vitamin D TID (not within 2 hours of multivitamin or iron sup plement) -500 mcg/day sublingual B12 supplement (or monthly injections) Continued to reinforce importance of mindful eating. Continue to increase physical activity. Follow up in [address], [facility], LD [facility] Bariatrics [phone] documented in this enco unter Plan of Treatment Not on filedocumented as of this encounter Procedures + +--------+ + + + | Procedure Name | Priori | Date/Time | Associated Diagnosis | Comments | | | ty | | | | + +--------+ + + + | [place] MNT RE-ASSESSMNT | Routin | 11/14/2015 | S/P laparoscopic | | | X15MIN | e | 1:49 PM | sleeve gastrectomy | | | | | PDT | Morbid obesity, | | | | | | unspecified obesity | | | | | | type (HCC) Diabetes | | | | | | mellitus type 2, | | | | | | diet-controlled | | | | | | (HCC) | | + +--------+ + + + documented in this encounter Visit Diagnoses + + | Diagnosis | + + | S/P laparoscopic sleeve gastrectomy - Primary | + + | Morbid obesity, unspecified obesity type (HCC) | + + | Diabetes mellitus type 2, diet-controlled (HCC) Type II or unspecified type diabetes | | mellitus without mention of complication, not stated as uncontrolled | + + documented in this encounter
--- OUTSIDE RECORDS SUMMARY | ~2019-06-14 | XMS | Encounter Summary ---
Demographics + + + | Address | [address] | | | [place] [address] | + + + | Home Phone | | + + + | Preferred Language | Unknown | + + + | Marital Status | Single | + + + | Caodaism Affiliation | NRP | + + + [...] | + + +---------+ + | Lana Readfield | ECON | Unknown | | + + +---------+ + Care Team Providers + +------+ + | Care Customer Service Operator Name | Role | Phone | + +------+ + | Iqra Starkey MD | PCP | | + +------+ + Reason for Referral Occupational Therapy (Routine) + +--------+ + + + + | Status | Reason | Specialty | Diagnoses / | Referred By | Referred To | | | | | Procedures | Contact | Contact | + +--------+ + + + + | New Request | | Occupational | Diagnoses | Ja Isi, | | | | | Therapy | Closed | MD [address] | | | | | | fracture of | [address] | | | | | | distal end | [address] | | | | | | of right | [place], [place] | | | | | | femur, | [address] | | | | | | unspecified | Phone: | | | | | | fracture | [phone] | | | | | | morphology, | Fax: | | | | | | initial | [phone] | | | | | | encounter | | | | | | | ([facility]) | | | | | | | Procedures | | | | | | | OCCUPATIONAL | | | | | | | THERAPY | | | | | | | REFERRAL | | | + +--------+ + + + + Physical Therapy (Routine) + +--------+ + + + + | Status | Reason | Specialty | Diagnoses / | Referred By | Referred To | | | | | Procedures | Contact | Contact | + +--------+ + + + + | New Request | | Physical | Diagnoses | Isi Peres, | | | | | Therapy | Closed | MD [address] | | | | | | fracture of | [address] | | | | | | distal end | [address] | | | | | | of right | [place], [place] | | | | | | femur, | [address] | | | | | | unspecified | Phone: | | | | | | fracture | [phone] | | | | | | morphology, | Fax: | | | | | | initial | [phone] | | | | | | encounter | | | | | | | ([facility]) | | | | | | | Procedures | | | | | | | PHYSICAL | | | | | | | THERAPY | | | | | | | REFERRAL | | | + +--------+ + + + + Reason for Visit AUTH/CERT +--------+--------+ + + + + | Status | Reason | Specialty | Diagnoses / | Referred By | Referred To | | | | | Procedures | Contact | Contact | +--------+--------+ + + + + | | | | | | | +--------+--------+ + + + + Encounter Details +--------+ + + + + | Date | Type | Department | Care Team | Description | +--------+ + + + + | 09/14/ | Hospital | [facility] [address] | Ang Betancourt, | | | 2019 - | Encounter | [address] | [address] | | | | | [place], | [address] | | | 09/21/ | | [place] [address] | [place], [place] | | | 2018 | | [phone] | [address] | | | | | | [phone] | | | | | | | | | | | | Ron Villela MD | | | | | | [address] | | | | | | [address] [place], | | | | | | [place] [address] | | | | | | [phone] | | | | | | | | | | | | Isi Peres MD [address] | | | | | [address] | | | | | | [address] [place], [place] | | | | | | [address] | | | | | | [phone] | | | | | | | | | | | | Robby Hyman MD | | | | | | [address] | | | | | | [address] [place], | | | | | | [place] [address] | | | | | | [phone] | | | | | | | | +--------+ + + + [...] Comments | + + +---------+ + | No | | | social drinks (2-3 | [...] + + + | Blood Pressure | 103/55 | 09/21/2018 8:24 AM | | | | | PDT | | + + + + + | Pulse | 88 | 09/21/2018 8:24 AM | | | | | PDT | | + + + + + | Temperature | 37.3 C (99.1 F) | 09/21/2018 8:24 AM | | | | | PDT | | + + + + + | Respiratory Rate | 20 | 09/21/2018 8:24 AM | | | | | PDT | | + + + + + | Oxygen Saturation | 86% | 09/21/2018 8:24 AM | | | | | PDT | | + + + + + | Inhaled Oxygen | - | - | | | Concentration | | | | + + + + + | Weight | 172.7 kg (380 lb | 09/17/2018 3:40 PM | | | | 11.2 oz) | PDT | | + + + + + | Height | 160 cm (5' 3") | 09/17/2018 4:44 PM | | | | | PDT | | + + + + + | Body Mass Index | 67.44 | 09/17/2018 3:40 PM | | | | | PDT | | + + + + + documented in this encounter Functional Status + + + + | Functional Status | Response | Date of Assessment | + + + + | Because of a physical, mental, or emotional | No | 09/15/2018 | | condition, do you have serious difficulty | | | | doing errands alone such as visiting the | | | | doctor? | | | + + + + + + + + | Cognitive Status | Response | Date of Assessment | + + + + | Because of a physical, mental, or emotional | No | 09/15/2018 | | condition, do you have serious difficulty | | | | concentrating, remembering, or making | | | | decisions? (5 years old or older) | | | + + + + documented as of this encounter Discharge Summaries Robby Hyman MD - 09/21/2018 7:58 AM PDT [facility] Discharge Summary Discharging Provider: ROBBY HYMAN MD Discharging Attending Physician: Robby Hyman MD PCP: Iqra Starkey MD Admission Date: 09/14/2018 Discharge Date: 09/21/2018 Hospital Stay: 7 day(s) Diagnosis: Principal Diagnosis: 1. R distal femur fracture Additional Diagnoses: 2. Opiate induced hypoventilation with acute respiratory acidosis 3. Transaminitis 4. UTI 5. Diabetes 6. Atrial fibrillation 7. Morbid obesity 8. Depression 9. Hypothyroidism Procedures: Retrograde Femoral Nail on 2018 Reason for Admission: R distal femur fracture Hospital Course by Problem (with follow-up plan/instructions): Ms. Aspen Darden is a 47 y/o lady with morbid obesity, obesity hypoventilation syndrome on CP AP, asthma, DM II, hypothyroidism, PTSD, and Afib on coumadin who was transferred from an [facility] with R distal femur fracture. R distal femur fracture: She was evaluated by Orthopedic Surgery and underwent Retrograde F emoral nail on 2018. She was given pain control with oxycodone and acetaminophen prn. She was seen by physical therapy with below recommendations: 1. Weight bearing: touch-down or toe touch weight bearing, right lower extremity 2. ROM: as tolerated, motion encouraged. - she has a follow-up appointment with Orthopedic Surgery on 10/01/18 at 10:15 am Opiate induced hypoventilation with acute respiratory acidosis: This recovered and mental s tatus is now at baseline. Obesity Hypoventilation syndrome: She was continued on CPAP and titrated O2 to 90-95 %. C XR was obtained and clear. Transaminitis: New since 07/20 and was asymptomatic. Differential includes hepatic steatos is vs. medication reaction vs. less likely autoimmune/viral hepatitis. Hepatitis serologie s were negative. Potential medications on her list include atorvastatin and bupropion. Michele rvastatin was held. Bupropion was continued given patient is on a high dose and did not want her to go through withdrawal. Neither of these medications are new for her. Repeat labs s how marked improvement in LFTs and liver ultrasound was deferred given marked improvement da kevin in her LFTs. - check CMP at PCP follow up on 10/01/18 UTI: She was noted to have very malodorous urine and U/A was sent suggesting infection. She was started on nitrofurantoin and probiotics for a 5 day course. Type 2 DM : She takes Metformin, Empaglifozin, Liraglutide at home and all oral anti-hyperg lycemics were held in house as she was on insulin in house. Her oral anti-hyperglycemics can be restarted upon discharge. A-fib: She was continued on her Diltiazem and Metoprolol. She was given Vitamin K 7.5 mg and 2 units of FFP on 09/15/18. Resumed warfarin on the evening of 09/18/18 as recommended by Orthopedic Surgery. She usually takes warfarin 10 mg daily // and 7.5 mg Sun/Tues/Th/S at at home but was placed on 10 mg daily until INR therapeutic. She will remain on on enoxap rin 60 mg BID until INR is therapeutic. Her [facility] is her PCP office. - check INR on 09/23/18 and adjust warfarin and discontinue enoxaparin as needed Morbid obesity s/p laparoscopic sleeve gastrectomy : She was being evaluated as an outpatie nt for bariatric surgery and saw Dr. Ramona Sunshine on 08/30/18. Depression: She was continued on her Bupropion 450mg daily. Hypothyroidism: She was continued on her home levothyroxine. Asthma: She was continued on her home inhalers. MRSA colonization:Received 2 doses Vancomycin perioperatively for prophylaxis. Discusse d with Dr. Berrios and no indication for further antibiotics. She was normotensive without losartan and this was discontinued, but can be restarted as ne eded. She was medically stable for discharge to [facility] on 09/21/18. Pertinent Findings: Labs: AST 20, ALT 42, INR 1.25 on day of discharge Imagin XR femur 2V Right Unchanged comminuted, impacted distal femoral diametaphyseal fracture. Severe degenerative joint disease of the knee. 09/15 CT RLE Markedly comminuted mild to moderately displaced distal femoral metadiaphyseal fracture wit h intra-articular extension. No additional acute fracture is identified. Severe tricompartme ntal osteoarthrosis at the knee. Other Studies: none Outstanding or Pending Labs/Studies: none Consultants (service/attending name): Orthopedic Surgery / Dr. Mortensen Discharge Medications: Medication List START taking these medications enoxaparin 60 mg/0.6 mL Syrg Commonly known as: LOVENOX Inject 0.6 mL under the skin (SUBC) every twelve hours. Indications: Deep Vein Thrombosis P revention lactobacillus rhamnosus (GG) 15 billion cell Cpsp Commonly known as: CULTURELLE Take 1 capsule by mouth once daily for 5 days. naloxone 4 mg/actuation [place] Instill 1 spray in nose as needed for suspected opioid overdose. Repeat with second device into other nostril after 2-3 minutes if no or minimal response. nitrofurantoin monohydrate/macrocrystal 100 mg Cap Commonly known as: MACROBID Take 1 capsule by mouth two times daily for 5 days. Indications: UTI nystatin 100,000 unit/gram Powd Commonly known as: MYCOSTATIN Apply to affected area two times daily. Apply to candidal lesions until lesions have healed . Indications: skin infection oxyCODONE (immediate release) 5 mg Tab Commonly known as: ROXICODONE Take 2-3 tablets by mouth every four hours as needed for severe pain (unresponsive to non-o pioid medication) for up to 7 days. polyethylene glycol 17 gram Pwpk Commonly known as: MIRALAX Mix 1 packet and take orally once daily. senna-docusate 8.6-50 mg Tab Commonly known as: SENOKOT S Take 1 tablet by mouth two times daily. CHANGE how you take these medications warfarin 5 mg Tab Commonly known as: COUMADIN Take 2 tablets by mouth once daily. Take 10 mg by mouth on Thursday, Thursday, and Thursday. T hayes 7.5 mg Thursday, Thursday, , Thursday. INR Goal 2-3. [facility]: PCP Office What changed: how much to take how to take this when to take this CONTINUE taking these medications albuterol 90 mcg/actuation Hfaa Commonly known as: PROVENTIL, VENTOLIN Inhale every four hours as needed. beclomethasone 80 mcg/actuation Hfab Commonly known as: QVAR Inhale 2 puffs by mouth two times daily. * buPROPion XL 300 mg Tb24 Commonly known as: WELLBUTRIN-XL Take 300 mg by mouth once daily. Take with 150 mg tablet to equal 450 mg daily * buPROPion XL 150 mg Tb24 Commonly known as: WELLBUTRIN-XL take 1 tablet by mouth once daily WITH 300 MG TABLET to equal 450 mg daily calcium citrate 200 mg elemental (950 mg total salt) Tab Commonly known as: CITRACAL Take 2 tablets by mouth three times daily. dilTIAZem SR 24 hour release 360 mg Cs24 Commonly known as: TIAZAC Take 1 capsule by mouth once daily at bedtime. empagliflozin 25 mg Tab Commonly known as: JARDIANCE Take 1 tablet by mouth once daily. ergocalciferol 50,000 unit Cap Commonly known as: VITAMIN D2, DRISDOL Take 50,000 Units by mouth three times weekly. ferrous sulfate 325 mg (65 mg iron) Tab Take 1 tablet by mouth two times daily. levothyroxine 88 mcg Tab Take 88 mcg by mouth before breakfast. liraglutide 0.6 mg/0.1 mL (18 mg/3 mL) Pnij Commonly known as: VICTOZA Inject 0.6 mg under the skin (SUBC) once daily. metFORMIN 1,000 mg Tab Commonly known as: GLUCOPHAGE Take 1,000 mg by mouth two times daily. metoprolol succinate 25 mg Tb24 Commonly known as: TOPROL-XL Take 1 tablet by mouth once daily at bedtime. Indications: hypertension, Ventricular Rate C ontrol in Atrial Fibrillation omeprazole 20 mg Tbec Take 1 tablet by mouth once daily. Indications: HEARTBURN pramipexole 1.5 mg Tab Commonly known as: MIRAPEX Take 1.5 mg by mouth two times daily. * This list has 2 medication(s) that are the same as other medications prescribed for you. Read the directions carefully, and ask your doctor or other care provider to review them wit h you. STOP taking these medications atorvastatin 40 mg Tab Commonly known as: LIPITOR HYDROcodone-acetaminophen 5-325 mg Tab Commonly known as: NORCO losartan 25 mg Tab Commonly known as: COZAAR Rationale for Medication Changes: Losartan held given has been normotensive without it. Statin was held as above. Allergies: Allergies Allergen Reactions Advair Diskus [Fluticasone Propion-Salmeterol] Airway Constriction Amoxicillin Hives Clarithromycin Gabapentin Unknown Hydrocodone-Acetaminophen Oxycodone Terephthalate Hives Sulfa (Sulfonamide Antibiotics) Rash Code Status: Full POLST completed: no Additional Instructions: Code Status for Facility Status: Full Code Condition on Discharge Good Discharge Follow Up - Facility MD to follow Facility MD to follow patient. Vital Signs Per policy PPD for Facility Administer PPD upon arrival Wound Care DRESSING CARELeave dressing in place until your follow up appointment, or at a minimum, 7-1 0 days after leaving the hospital. After that time, you may change your dressing daily and check the incision for any signs of infection, such as: redness, swelling, unusual pain, or increasing drainage. Your incision should be kept clean and dry. If you have sutures or st aples, do not get your wound wet for 5-7 days after your operation: either sponge bath or co ella the incision with a waterproof bandage. You may shower, but please do not scrub at the dressing/surgical site. Please do not soak the dressing in pool, tub, or jacuzzi. Keep you r incision covered with a dressing until there is no discharge on bandage. Capillary Blood Glucose With meals and at bedtime Diet Instructions Diet Diabetic (Consistent Carbohydrate) Diabetic diet (Consistent Carbohydrate)- You should be careful to control your daily int hayes of carbohydrates and ensure that you are consuming the same amount of carbohydrates each day. Your health care provider will work with you to determine the appropriate amount of c arbohydrates your body needs. - Activity Instructions Activity 1. Weight bearing: touch-down or toe touch weight bearing, right lower extremity 2. ROM: a s tolerated, motion encouraged. Additional Instructions Other Discharge Orders and Instructions Check INR in 2 days Check CMP in 1 week for LFTs and Calcium level. Other Orders & Follow-up Plan Code Status for Facility Discharge Follow Up - Facility MD to follow Other Discharge Orders and Instructions Durable Medical Equipment No service has been selected for the patient. Dialysis/Infusion No service has been selected for the patient. Discharge Destination - Selection Complete Service Request Status Selected Specialties Address Phone Number Fax Number [facility] Selected Detention Facility [address], [place] [address] Home Care Medical No service has been selected for the patient. Social Care Services No service has been selected for the patient. Follow Up: Future Appointments Provider Department Dept Phone Center 10/01/2018 10:15 AM Adrienne Johnson [facility] Orthopaedics & Rehabilitation [phone] Orthopedi mychal Contact information for other follow-up providers IQRA STARKEY MD. Specialty: Internal Medicine Contact information [facility] [address] [facility] [place] [address] JULIET Miller On 10/01/2018. Specialties: Nurse Practitioner Family, Orthopedic Surgery Why: 9:55AM. Contact information [address], [place] [address] [facility] [address] Contact information for after-discharge care Discharge Destination [facility] . Specialty: Detention Facility Contact information [address] [place] [address] Discharge Physical Exam: Last 24 hour min/max Temp: 37 C (98.6 F) Temp Min: 36.9 C (98.4 F) Max: 37.2 C (99 F) Pulse: 84 Pulse Min: 84 Max: 104 Resp: 18 Resp Min: 17 Max: 18 BP: 107/65 BP Min: 99/59 Max: 130/68 SpO2: 100 % SpO2 Min: 92 % Max: 100 % Body mass index is 67.44 kg/m. General: obese, comfortable in bed, NAD HEENT/Neck: supple Cardiovascular: irregularly irregular Pulmonary: CTA B anteriorly Abdominal: soft, non-tender Ext: no c/c/e ROBBY HYMAN MD Pager - [phone] administrative director Division of Hospital Medicine I spent more than 60 minutes [id number] with the patient of which greater than 50% was sp ent counseling the patient regarding femur fracture. documented in this enco unter Medications at Time of Discharge + + + +---------+ + + | Medication | Sig | Dispensed | Refills | Start | End Date | | | | | | Date | | + + + +---------+ + + | albuterol 90 | Inhale 1-2 puffs by | 18 g | 0 | 09/22/19 | | | mcg/actuation | mouth every four | | | 19 | | | inhalation HFA | hours as needed | | | | | | aerosol inhaler | (wheezing/SOB). | | | | | + + + +---------+ + + | beclomethasone 80 | Inhale 2 puffs by | | 0 | | | | mcg/actuation | mouth two times | | | | | | inhalation HFA | daily. | | | | | | aerosol breath | | | | | | | activated | | | | | | + + + +---------+ + + | buPROPion XL 150 | take 1 tablet by | | 0 | 10/20/19 | | | mg oral tablet | mouth once daily | | | 18 | | | extended release 24 | WITH 300 MG TABLET | | | | | | hr | to equal 450 mg | | | | | | | daily | | | | | + + + +---------+ + + | buPROPion XL 300 | Take 300 mg by mouth | | 0 | | | | mg oral tablet | once daily. Take | | | | | | extended release 24 | with 150 mg tablet | | | | | | hr | to equal 450 mg | | | | | | | daily | | | | | + + + +---------+ + + | dilTIAZem SR 24 | Take 1 capsule by | | 0 | | | | hour release 360 mg | mouth once daily at | | | | | | oral | bedtime. | | | | | | capsule,extended | | | | | | | release 24 hr | | | | | | + + + +---------+ + + | enoxaparin 60 | Inject 0.6 mL under | 30 | 1 | //20 | | | mg/0.6 mL | the skin (SUBC) | Syringe | | 19 | | | subcutaneous | every twelve hours. | | | | | | syringeIndications: | Indications: Deep | | | | | | Deep Vein Thrombosis | Vein Thrombosis | | | | | | Prevention | Prevention | | | | | + + + +---------+ + + | ergocalciferol | Take 50,000 Units by | | 0 | | | | 50,000 unit oral | mouth three times | | | | | | capsule | weekly. | | | | | + + + +---------+ + + | ferrous sulfate | Take 1 tablet by | | 0 | | | | 325 mg (65 mg iron) | mouth two times | | | | | | oral tablet | daily. | | | | | + + + +---------+ + + | levothyroxine 88 | Take 88 mcg by mouth | | 0 | | | | mcg oral tablet | before breakfast. | | | | | + + + +---------+ + + | liraglutide 0.6 | Inject 0.6 mg under | 9 mL | 3 | 07/09/19 | | | mg/0.1 mL (18 mg/3 | the skin (SUBC) once | | | 19 | | | mL) subcutaneous pen | daily. | | | | | | injector | | | | | | + + + +---------+ + + | metFORMIN 1,000 mg | Take 1,000 mg by | | 0 | | | | oral tablet | mouth two times | | | | | | | daily. | | | | | + + + +---------+ + + | metoprolol | Take 1 tablet by | 90 | 0 | 07/20/19 | | | succinate 25 mg oral | mouth once daily at | tablet | | 19 | | | tablet extended | bedtime. | | | | | | release 24 | Indications: | | | | | | hrIndications: | hypertension, | | | | | | hypertension, | Ventricular Rate | | | | | | ventricular rate | Control in Atrial | | | | | | control in atrial | Fibrillation | | | | | | fibrillation | | | | | | + + + +---------+ + + | naloxone 4 | Instill 1 spray in | 2 each | 0 | 09/21/19 | | | mg/actuation nasal | nose as needed for | | | 19 | | | spray,non-aerosolInd | suspected opioid | | | | | | ications: Closed | overdose. Repeat | | | | | | bicondylar fracture | with second device | | | | | | of right femur, | into other nostril | | | | | | initial encounter | after 2-3 minutes if | | | | | | ([facility]) | no or minimal | | | | | | | response. | | | | | + + + +---------+ + + | nystatin 100,000 | Apply to affected | 15 g | 0 | 09/21/19 | | | unit/gram topical | area two times | | | 19 | | | powderIndications: | daily. Apply to | | | | | | soft tissue | candidal lesions | | | | | | infection | until lesions have | | | | | | | healed. Indications: | | | | | | | skin infection | | | | | + + + +---------+ + + | omeprazole 20 mg | Take 1 tablet by | 30 | 11 | 11/14/19 | | | oral tablet,delayed | mouth once daily. | tablet | | 16 | | | release | Indications: | | | | | | (DR/EC)Indications: | HEARTBURN | | | | | | heartburn | | | | | | + + + +---------+ + + | polyethylene | Mix 1 packet and | 30 | 0 | 04/22/20 | | | glycol 17 gram oral | take orally once | packet | | 19 | | | powder in | daily. | | | | | | packetIndications: | | | | | | | Closed bicondylar | | | | | | | fracture of right | | | | | | | femur, initial | | | | | | | encounter ([facility]) | | | | | | + + + +---------+ + + | pramipexole 1.5 mg | Take 1.5 mg by mouth | | 0 | | | | oral tablet | two times daily. | | | | | + + + +---------+ + + | senna-docusate | Take 1 tablet by | 60 | 0 | 09/21/19 | | | 8.6-50 mg oral | mouth two times | tablet | | 19 | | | tabletIndications: | daily. | | | | | | Closed bicondylar | | | | | | | fracture of right | | | | | | | femur, initial | | | | | | | encounter ([facility]) | | | | | | + + + +---------+ + + | warfarin 5 mg oral | Take 10 mg by mouth | 30 | 1 | 09/22/19 | | | tablet | daily until INR | tablet | | 19 | | | | therapeutic. Then, | | | | | | | take 10 mg by mouth | | | | | | | on Thursday, | | | | | | | Thursday, and | | | | | | | Thursday; and take 7.5 | | | | | | | mg Thursday, Thursday, | | | | | | | , Thursday. | | | | | | | INR Goal 2-3. [facility] | | | | | | | Clinic: PCP Office | | | | | + + + +---------+ + + | calcium citrate | Take 2 tablets by | 180 | 0 | 09/21/19 | | | 200 mg elemental | mouth three times | tablet | | 19 | 9 | | (950 mg total salt) | daily. | | | | | | oral | | | | | | | tabletIndications: | | | | | | | Closed bicondylar | | | | | | | fracture of right | | | | | | | femur, initial | | | | | | | encounter ([facility]) | | | | | | + + + +---------+ + + | lactobacillus | Take 1 capsule by | 5 | 0 | 09/22/19 | | | rhamnosus (GG) 15 | mouth once daily for | capsule | | 19 | 9 | | billion cell oral | 5 days. | | | | | | capsule, sprinkle | | | | | | + + + +---------+ + + | nitrofurantoin | Take 1 capsule by | 10 | 0 | 09/22/19 | | | monohydrate/macrocry | mouth two times | capsule | | 19 | 9 | | stal 100 mg oral | daily for 5 days. | | | | | | capsuleIndications: | Indications: UTI | | | | | | urinary tract | | | | | | | infection | | | | | | + + + +---------+ + + | oxyCODONE | Take 2-3 tablets by | 126 | 0 | 09/22/19 | | | (immediate release) | mouth every four | tablet | | 19 | 9 | | 5 mg oral | hours as needed for | | | | | | tabletIndications: | severe pain | | | | | | Closed bicondylar | (unresponsive to | | | | | | fracture of right | non-opioid | | | | | | femur, initial | medication) for up | | | | | | encounter ([facility]) | to 7 days. | | | | | + + + +---------+ + + documented as of this encounter Progress Notes Isi Peres MD - 09/20/2018 1:33 PM PDT HOSPITALIST INPATIENT PROGRESS NOTE Author: Isi Peres MD PCP: Iqra Starkey MD Hospital Day:6 24h Events: - had 2 large bowel movements yesterday after magnesium citrate. - receiving oxycodone every 4 hours. Subj: Patient reports continued improvement in her pain. Vitals: Last Vitals: BP 113/63 (BP Location: Right lower arm, Patient Position: Lying on back) | P ulse 79 | Temp 36.5 C (97.7 F) | Resp 16 | Ht 1.6 m (5' 3") | Wt 172.7 kg (380 lb 11 .2 oz) | SpO2 100% | BMI 67.44 kg/m | BSA 2.77 m 24 Hour Vital Min/Max: Systolic (24hrs), Av , Min:112 , Max:132 Diastolic (24hrs), Av, Min:63, Max:79 Pulse Min: 79 Max: 106 Temp Min: 36.5 C (97.7 F) Max: 37.2 C (99 F) Resp Min: 16 Max: 16 SpO2 Min: 82 % Max: 100 % Intake/Output Summary (Last 24 hours) at 09/20/18 1333 Last data filed at 09/20/18 0819 Gross per 24 hour Intake 1145 ml Output 825 ml Net 320 ml Exam: General: NAD, obese Cardiovascular: irregularly irregular, no M/R/G Respiratory: CTAB, no W/R/R Abdomen: NABS, S/NT/ND, no R/G Ext: R leg immobilized. Skin: No rashes or lesions Neuro: Alert/oriented x3, CNII-XII grossly intact Basic Labs: Lab Results Component Value Date NA 136 09/20/2018 K 4.5 09/20/2018 CL 99 09/20/2018 BICARB 35 09/20/2018 BUN 17 09/20/2018 CR 0.61 09/20/2018 GLU 161 09/20/2018 CA 9.4 09/20/2018 ANIONGAP 2 09/20/2018 ANIONALBCOR 5 09/20/2018 Lab Results Component Value Date WBC 10.60 09/20/2018 HB 10.8 09/20/2018 HCT 34.2 09/20/2018 PLT 271 09/20/2018 MCV 98.3 09/20/2018 RDW 59.3 09/20/2018 Current Medications: acetaminophen (TYLENOL) tablet 650 mg, 650 mg, oral, Q6H PRN albuterol (PROVENTIL, VENTOLIN) 90 mcg/actuation inhaler 1 puff, 1 puff, inhalation, Q4H AZ N beclomethasone (QVAR) 80 mcg/actuation inhaler 2 puff, 2 puff, inhalation, BID bisacodyl (DULCOLAX) suppository 10 mg, 10 mg, rectal, DAILY buPROPion XL (WELLBUTRIN-XL) tablet 450 mg, 450 mg, oral, DAILY calcium citrate (CITRACAL) tablet 400 mg elemental, 400 mg elemental, oral, TID dextrose 50 % in water IV 25 mL, 25 mL, intravenous, PRN dilTIAZem CD 24 hour release (CARDIZEM CD) capsule 360 mg, 360 mg, oral, HS enoxaparin (LOVENOX) injection 60 mg, 60 mg, subcutaneous, Q12H (Scheduled) ergocalciferol (VITAMIN D2, DRISDOL) capsule 50,000 Units, 50,000 Units, oral, Once per day on Thu ferrous sulfate tablet 65 mg elemental, 325 mg total salt, oral, BID glucagon (GLUCAGEN) injection 1 mg, 1 mg, intramuscular, PRN glucose chewable tablet 16 g, 16 g, oral, PRN insulin lispro (HUMALOG) injection 1-16 Units, 1-16 Units, subcutaneous, QID levothyroxine tablet 88 mcg, 88 mcg, oral, DAILY menthol-zinc oxide (CALAZIME) topical paste 0.2%-16.5%, , topical, TID PRN metoprolol succinate (TOPROL-XL) tablet 25 mg, 25 mg, oral, HS naloxone (NARCAN) injection, , intravenous, PRN nystatin (MYCOSTATIN) powder, , topical, BID omeprazole (PRILOSEC) capsule 20 mg, 20 mg, oral, DAILY oxyCODONE (immediate release) (ROXICODONE) tablet 10-15 mg, 10-15 mg, oral, Q4H PRN polyethylene glycol (MIRALAX) packet 34 g, 34 g, oral, TID PRN senna-docusate (SENOKOT S) 8.6-50 mg 1 tablet, 1 tablet, oral, BID warfarin (COUMADIN) tablet 10 mg, 10 mg, oral, QPM Assessment and plan: Patient is a 47 y.o. F with PMHx of morbid obesity, obesity hypoventilation syndrome on CPA P, DM, PTSD, asthma, Afib on coumadin, who presents from OSH with R distal femur fracture. #R distal femur fracture S/p Retrograde Femoral nail on 2018. - change tylenol to 650mg PRN. - continue oxycodone 15mg q4hr PRN for now. Avoid IV narcotics given opiate induced hypove ntilation. - will remain on lovenox 60mg BID until coumadin is therapeutic. #Opiate induced hypoventilation with acute respiratory acidosis Has recovered and mental status is now at baseline. #Obesity Hypoventilation syndrome CPAP ordered. Titrate O2 90-95. Has been on too much oxygen given chronic hypercarbia. C XR clear. #Type 2 DM Takes Metformin, Empaglifozin, Liraglutide at home. - Holding all oral anti-hyperglycemics. #Morbid obesity s/p laparoscopic sleeve gastrectomy Was being evaluated outpatient for bariatric surgery. Saw Ramona Sunshine on 08/30/18. #Transaminitis New since 07/20. Asymptomatic. Differential includes hepatic steatosis vs. Medication reac tion vs. Less likely autoimmune/viral hepatitis. Repeat labs show marked improvement in LFT s. Potential medications on her list include atorvastatin and bupropion. Will hold atorvast atin for now, and resume bupropion given patient is on a high dose and would not want her to go through withdrawal. Neither of these medications are new for her. LFTs continue to levy ntrend this morning, and etiology is still unclear. I suppose LFTs could be improving due t o holding statin. Hepatitis serologies negative. - continue holding atorvastatin. - trend LFTs daily - will defer liver ultrasound given marked improvement daily in her LFTs. #MRSA colonization - Received 2 doses Vancomycin perioperatively for prophylaxis. Discusse d with Dr. Berrios. No indication for further antibiotics. #Depression - Continue bupropion 450mg daily. #A-fib - Continue Dilt, Metoprolol. Resumed warfarin on the evening of 09/18 as recommended by orthopedics. Diet: Diabetic diet Prophy: Lovenox 60 BID (given weight), will continue until coumadin therapeutic. FEN/GI: replete lytes Code status: FULL code Dispo: SNF likely Thursday. sIi Peres MD [employer] associate Clinical Hospitalist Division of Hospital Medicine [facility] Pager [phone] I spent 30 minutes in the care of this patient. Greater than 50% of the time was spent cou nseling and coordination of care with orthopedics. ihl, MD Tadeo - 09/21/19 8:16 AM PDT Orthopaedic Surgery Progress Note Patient: /Age: MRN: CSN: Date: Admission Date: Hospital Day: Orthopaedic Attending: Aspen Darden 1970 48 y.o. [id number] 09/20/2018 09/14/2018 6 Shyam Mortensen MD Diagnosis(es): 1. Right distal femur fracture Orthopaedic Procedure(s) & Date(s): 1. 09/16/18: Retrograde femoral intramedullary nail Assessment & Plan: Aspen Darden is a 48 y.o.F with the diagnoses/procedures listed above. Today's specific concerns include: Patient progressing appropriately from orthopaedic stand point. Will follow peripherally at this time. Secondary Survey: Done on 09/17/18 Care Protocol Items: 1. Immobility due to illness 1. Weight bearing: touch-down or toe touch weight bearing, ri ght lower extremity 2. ROM: as tolerated, motion encouraged 2. VTE prophylaxis: high risk, lovenox SC 40mg daily or by weight, sequential compression d evices, or per primary. May need BID dosing due to weight. 3. Antibiotics: Perioperative Ancef complete 4. Special Concerns: Case managment for discharge planning 5. Drains: none 6. Dressings: DRESSING CARE Leave dressing in place until your follow up appointment, or at a minimum, 7-10 days after leaving the hospital. After that time, you may change your dressing daily and check the inc ision for any signs of infection, such as: redness, swelling, unusual pain, or increasing d rainage. Your incision should be kept clean and dry. If you have sutures or kayleen, do not get your wound wet for 5-7 days after your operation: either sponge bath or cover the incis ion with a waterproof bandage. You may shower, but please do not scrub at the dressing/surg ical site. Please do not soak the dressing in pool, tub, or jacuzzi. Keep your incision co violeta with a dressing until there is no discharge on bandage. 7. Orthopaedic Follow-up: Please call the clinic to make a follow up appointment in [facility] [address] [address] Mortensen, Subjective: NAEON. AF, VSS. RLE pain improving. Working w/ PT, complaint with restrictions. No new RLE complaints. Objective: Last Vitals: Pulse: 79 BP: 113/63 Temp: 36.5 C (97.7 F) SpO2: 100 % Resp: 16 General: Well appearing, NAD CV/Resp: Breathing comfortably on RA Neurologic: A+O x3, face grossly symmetric MSK: - RLE: Dressings in place, lateral dressings removed and changed with incisions healing samuel ropriately, no surrounding e/e/f/d, fires HF/quads/AT/GSC/EHL/FHL, SILT in SP/DP/Tib/Eusebio/Sap h nerve distributions, toes WWP Tadeo Aguila MD Orthopaedic Surgery, PGY-1 Pager: [phone] signed by Tadeo Aguila MD at 09/20/2018 1:07 PM PDTWHannah crook MD - 09/19/2018 12:01 PM PDT Orthopaedic Surgery Progress Note Patient: /Age: MRN: CSN: Date: Admission Date: Hospital Day: Orthopaedic Attending: Aspen Darden 1970 48 y.o. [id number] 09/19/2018 09/14/2018 5 Shyam Mortensen MD Diagnosis(es): 1. Right distal femur fracture Orthopaedic Procedure(s) & Date(s): 1. 09/16/18: Retrograde femoral intramedullary nail Assessment & Plan: Aspen Darden is a 48 y.o.F with the diagnoses/procedures listed above. Today's specific concerns include: Patient is doing well. Ortho will remove the el wrap tomorrow then likely follow peripherally if pt still doing w ell. Secondary Survey: Done on 09/17/18 Care Protocol Items: 1. Immobility due to illness 1. Weight bearing: touch-down or toe touch weight bearing, ri ght lower extremity 2. ROM: as tolerated, motion encouraged 2. VTE prophylaxis: high risk, lovenox SC 40mg daily or by weight, sequential compression d evices, or per primary. May need BID dosing due to weight. 3. Antibiotics: ceFAZolin, for 24 hours perioperatively 4. Special Concerns: post-op imaging ordered, case managment for discharge planning, quintanilla out POD#1 5. Drains: none 6. Dressings: DRESSING CARE Leave dressing in place until your follow up appointment, or at a minimum, 7-10 days after leaving the hospital. After that time, you may change your dressing daily and check the inc ision for any signs of infection, such as: redness, swelling, unusual pain, or increasing d rainage. Your incision should be kept clean and dry. If you have sutures or kayleen, do not get your wound wet for 5-7 days after your operation: either sponge bath or cover the incis ion with a waterproof bandage. You may shower, but please do not scrub at the dressing/surg ical site. Please do not soak the dressing in pool, tub, or jacuzzi. Keep your incision co violeta with a dressing until there is no discharge on bandage. 5. Orthopaedic Follow-up: Please call the clinic to make a follow up appointment in [facility] [address] [address] Mortensen, Subjective: Overnight Events: None. Working with PT. Sat up in chair. Delighted. Objective: Last Vitals: Pulse: 79 BP: 169/62 Temp: 36.5 C (97.7 F) SpO2: 96 % Resp: 16 24 Hour Vital Min/Max: Pulse Av.8 Min: 79 Max: 109 BP Min: 93/77 Max: 169/62 Temp Av.8 C (98.3 F) Min: 36.5 C (97.7 F) Max: 37.1 C (98.8 F) SpO2 Av % Min: 93 % Max: 100 % Resp Av Min: 16 Max: 16 Recent Laboratory Data: Lab Results Component Value Date WBC 11.83 09/19/2018 HCT 35.9 09/19/2018 Exam: General: appropriate, oriented Respiratory: regular, appropriate effort, not auscultated, cpap on RUE - . 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 Sensation intact to li ght touch over axillary, median, ulnar, and radial nerve distributions, palpable radial puls e, fingers pink and warm LUE - . 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 Sensation intact to li ght touch over axillary, median, ulnar, and radial nerve distributions, palpable radial puls e, fingers pink and warm RLE - dressings in place. No new strikethrough. Motor intact to ankle dorsiflexion & planta rflexion, extensor hallucis longus, flexor hallucis longus. Sensation intact to light touch over deep peroneal, superficial peroneal, saphenous, sural, and tibial nerve distributions. Palpable DP/PT pulses, toes pink and warm. LLE - . Motor intact to ankle dorsiflexion & plantarflexion, extensor hallucis longus, flex or hallucis longus. Sensation intact to light touch over deep peroneal, superficial peroneal , saphenous, sural, and tibial nerve distributions. Palpable DP/PT pulses, toes pink and war m. Clif Bain MD [employer] [facility] [address] [place] [address] Mail Code: OP31 [facility] [id number] Vivi, MD Isi - 019 9:00 AM PDT HOSPITALIST INPATIENT PROGRESS NOTE Author: Isi Peres MD PCP: Iqra Starkey MD Hospital Day:5 24h Events: - patient refused miralax and dulcolax suppository yesterday. She took prune juice and has not had a bowel movement yet. - patient finally worked with PT yesterday and sat up at the side of the bed for 30 minutes . Subj: Patient reports that her pain is better today. Vitals: Last Vitals: BP 169/62 (BP Location: Right lower arm, Patient Position: Lying on back) | P ulse 79 | Temp 36.5 C (97.7 F) | Resp 16 | Ht 1.6 m (5' 3") | Wt 172.7 kg (380 lb 11 .2 oz) | SpO2 96% | BMI 67.44 kg/m | BSA 2.77 m 24 Hour Vital Min/Max: Systolic (24hrs), Av , Min:114 , Max:169 Diastolic (24hrs), Av, Min:54, Max:80 Pulse Min: 79 Max: 109 Temp Min: 36.5 C (97.7 F) Max: 37.2 C (99 F) Resp Min: 16 Max: 18 SpO2 Min: 93 % Max: 100 % Intake/Output Summary (Last 24 hours) at 09/19/18 0900 Last data filed at 09/19/18 0600 Gross per 24 hour Intake 1518 ml Output 3875 ml Net -2357 ml Exam: General: NAD, obese Cardiovascular: irregularly irregular, no M/R/G Respiratory: CTAB, no W/R/R Abdomen: NABS, S/NT/ND, no R/G Ext: R leg immobilized. Skin: No rashes or lesions Neuro: Alert/oriented x3, CNII-XII grossly intact Basic Labs: Lab Results Component Value Date NA 136 09/19/2018 K 4.3 09/19/2018 CL 99 09/19/2018 BICARB 33 09/19/2018 BUN 17 09/19/2018 CR 0.55 09/19/2018 GLU 150 09/19/2018 CA 9.4 09/19/2018 ANIONGAP 4 09/19/2018 ANIONALBCOR 7 09/19/2018 Lab Results Component Value Date WBC 11.83 09/19/2018 HB 11.5 09/19/2018 HCT 35.9 09/19/2018 PLT 275 09/19/2018 MCV 97.6 09/19/2018 RDW 58.4 09/19/2018 Current Medications: acetaminophen (TYLENOL) tablet 650 mg, 650 mg, oral, Q6H PRN albuterol (PROVENTIL, VENTOLIN) 90 mcg/actuation inhaler 1 puff, 1 puff, inhalation, Q4H AZ N beclomethasone (QVAR) 80 mcg/actuation inhaler 2 puff, 2 puff, inhalation, BID bisacodyl (DULCOLAX) suppository 10 mg, 10 mg, rectal, DAILY buPROPion XL (WELLBUTRIN-XL) tablet 450 mg, 450 mg, oral, DAILY calcium citrate (CITRACAL) tablet 400 mg elemental, 400 mg elemental, oral, TID dextrose 50 % in water IV 25 mL, 25 mL, intravenous, PRN dilTIAZem CD 24 hour release (CARDIZEM CD) capsule 360 mg, 360 mg, oral, HS enoxaparin (LOVENOX) injection 60 mg, 60 mg, subcutaneous, Q12H (Scheduled) ergocalciferol (VITAMIN D2, DRISDOL) capsule 50,000 Units, 50,000 Units, oral, Once per day on Thu ferrous sulfate tablet 65 mg elemental, 325 mg total salt, oral, BID glucagon (GLUCAGEN) injection 1 mg, 1 mg, intramuscular, PRN glucose chewable tablet 16 g, 16 g, oral, PRN insulin lispro (HUMALOG) injection 1-16 Units, 1-16 Units, subcutaneous, QID levothyroxine tablet 88 mcg, 88 mcg, oral, DAILY magnesium citrate liquid 296 mL, 296 mL, oral, ONCE metoprolol succinate (TOPROL-XL) tablet 25 mg, 25 mg, oral, HS naloxone (NARCAN) injection, , intravenous, PRN nystatin (MYCOSTATIN) powder, , topical, BID omeprazole (PRILOSEC) capsule 20 mg, 20 mg, oral, DAILY oxyCODONE (immediate release) (ROXICODONE) tablet 10-15 mg, 10-15 mg, oral, Q4H PRN polyethylene glycol (MIRALAX) packet 34 g, 34 g, oral, TID PRN senna-docusate (SENOKOT S) 8.6-50 mg 1 tablet, 1 tablet, oral, BID warfarin (COUMADIN) tablet 10 mg, 10 mg, oral, QPM Assessment and plan: Patient is a 47 y.o. F with PMHx of morbid obesity, obesity hypoventilation syndrome on CPA P, DM, PTSD, asthma, Afib on coumadin, who presents from OSH with R distal femur fracture. #R distal femur fracture S/p Retrograde Femoral nail on 2018. - Per Ortho, OK to start full anticoagulation tonight. Will order coumadin to start tonigh t with pharmacy to manage. - change tylenol to 650mg PRN. - continue oxycodone 15mg q4hr PRN for now. Avoid IV narcotics given opiate induced hypove ntilation. #Opiate induced hypoventilation with acute respiratory acidosis Has recovered and mental status is now at baseline. #Obesity Hypoventilation syndrome CPAP ordered. Titrate O2 90-95. Has been on too much oxygen given chronic hypercarbia. C XR clear. #Type 2 DM Takes Metformin, Empaglifozin, Liraglutide at home. - Holding all oral anti-hyperglycemics. #Morbid obesity s/p laparoscopic sleeve gastrectomy Was being evaluated outpatient for bariatric surgery. Saw Ramona Hovland on 08/30/18. #Transaminitis New since 07/20. Asymptomatic. Differential includes hepatic steatosis vs. Medication reac tion vs. Less likely autoimmune/viral hepatitis. Repeat labs show marked improvement in LFT s. Potential medications on her list include atorvastatin and bupropion. Will hold atorvast atin for now, and resume bupropion given patient is on a high dose and would not want her to go through withdrawal. Neither of these medications are new for her. LFTs continue to levy ntrend this morning, and etiology is still unclear. I suppose LFTs could be improving due t o holding statin. Hepatitis serologies negative. - continue holding atorvastatin. - trend LFTs daily - will defer liver ultrasound given marked improvement daily in her LFTs. #MRSA colonization - Received 2 doses Vancomycin perioperatively for prophylaxis. Discusse d with Dr. Berrios. No indication for further antibiotics. #Depression - Continue bupropion 450mg daily. #A-fib - Continue Dilt, Metoprolol. Resumed warfarin on the evening of 09/18 as recommended by orthopedics. Diet: Diabetic diet Prophy: Lovenox 60 BID (given weight), will continue until coumadin therapeutic. FEN/GI: replete lytes Code status: FULL code Dispo: SNF likely Thursday. Isi Peres MD [employer] associate Clinical Hospitalist Division of Hospital Medicine [facility] Pager [phone] I spent 30 minutes in the care of this patient. Greater than 50% of the time was spent cou nseling and coordination of care with orthopedics. Clif crook MD - 019 1:07 PM PDT Orthopaedic Surgery Progress Note Patient: /Age: MRN: CSN: Date: Admission Date: Hospital Day: Orthopaedic Attending: Aspen Darden 1970 48 y.o. [id number] 09/18/2018 09/14/2018 4 Shyam Mortensen MD Diagnosis(es): 1. Right distal femur fracture Orthopaedic Procedure(s) & Date(s): 1. 09/16/18: Retrograde femoral intramedullary nail Assessment & Plan: Aspen Darden is a 48 y.o.F with the diagnoses/procedures listed above. Today's specific concerns include: PT (ordered by ortho) Pain control Secondary Survey: Done on 09/17/18 Care Protocol Items: 1. Immobility due to illness 1. Weight bearing: touch-down or toe touch weight bearing, ri ght lower extremity 2. ROM: as tolerated, motion encouraged 2. VTE prophylaxis: high risk, lovenox SC 40mg daily or by weight, sequential compression d evices, or per primary. May need BID dosing due to weight. 3. Antibiotics: ceFAZolin, for 24 hours perioperatively 4. Special Concerns: post-op imaging ordered, case managment for discharge planning, quintanilla out POD#1 5. Drains: none 6. Dressings: DRESSING CARE Leave dressing in place until your follow up appointment, or at a minimum, 7-10 days after leaving the hospital. After that time, you may change your dressing daily and check the inc ision for any signs of infection, such as: redness, swelling, unusual pain, or increasing d rainage. Your incision should be kept clean and dry. If you have sutures or kayleen, do not get your wound wet for 5-7 days after your operation: either sponge bath or cover the incis ion with a waterproof bandage. You may shower, but please do not scrub at the dressing/surg ical site. Please do not soak the dressing in pool, tub, or jacuzzi. Keep your incision co violeta with a dressing until there is no discharge on bandage. 5. Orthopaedic Follow-up: Please call the clinic to make a follow up appointment in [facility] [address] [address] [address] Mortensen, Subjective: Overnight Events: None. Hasn't worked with PT yet. Objective: Last Vitals: Pulse: 83 BP: 114/54 Temp: 37.2 C (99 F) SpO2: 97 % Resp: 18 24 Hour Vital Min/Max: Pulse Av Min: 82 Max: 117 BP Min: 93/77 Max: 147/67 Temp Av.2 C (98.9 F) Min: 36.5 C (97.7 F) Max: 37.7 C (99.9 F) SpO2 Av.5 % Min: 94 % Max: 97 % Resp Av.7 Min: 16 Max: 18 Recent Laboratory Data: Lab Results Component Value Date WBC 13.05 09/18/2018 HCT 34.7 09/18/2018 Exam: General: appropriate, oriented Respiratory: regular, appropriate effort, not auscultated, cpap on RUE - . 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 Sensation intact to li ght touch over axillary, median, ulnar, and radial nerve distributions, palpable radial puls e, fingers pink and warm LUE - . 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 Sensation intact to li ght touch over axillary, median, ulnar, and radial nerve distributions, palpable radial puls e, fingers pink and warm RLE - dressings in place. Minimal strikethrough. Motor intact to ankle dorsiflexion & plant arflexion, extensor hallucis longus, flexor hallucis longus. Sensation intact to light touch over deep peroneal, superficial peroneal, saphenous, sural, and tibial nerve distributions. Palpable DP/PT pulses, toes pink and warm. LLE - . Motor intact to ankle dorsiflexion & plantarflexion, extensor hallucis longus, flex or hallucis longus. Sensation intact to light touch over deep peroneal, superficial peroneal , saphenous, sural, and tibial nerve distributions. Palpable DP/PT pulses, toes pink and war m. Clif Bain MD [employer] [facility] of Orthopaedics & [facility] [address] [place] [address] Mail Code: OP31 [facility] [id number] Vivi, MD Isi - 019 8:48 AM PDT HOSPITALIST INPATIENT PROGRESS NOTE Author: Isi Peres MD PCP: Iqra Starkey MD Hospital Day:4 24h Events: - s/p retrograde femoral nail POD2. - LAWRENCE o/n. - Has not yet worked with PT. - LFTs quickly normalizing - no bowel movement yet. Patient reports passing a lot of gas. Subj: No complaints other than continued pain. Says the pain medications work for her. Vitals: Last Vitals: BP 105/60 (BP Location: Right lower arm, Patient Position: Lying on back) | P ulse 82 | Temp 36.5 C (97.7 F) | Resp 18 | Ht 1.6 m (5' 3") | Wt 172.7 kg (380 lb 11 .2 oz) | SpO2 94% | BMI 67.44 kg/m | BSA 2.77 m 24 Hour Vital Min/Max: Systolic (24hrs), Av , Min:103 , Max:147 Diastolic (24hrs), Av, Min:49, Max:70 Pulse Min: 75 Max: 117 Temp Min: 36.5 C (97.7 F) Max: 37.7 C (99.9 F) Resp Min: 16 Max: 18 SpO2 Min: 92 % Max: 97 % Intake/Output Summary (Last 24 hours) at 09/18/18 0848 Last data filed at 09/18/18 0500 Gross per 24 hour Intake 1340 ml Output 3050 ml Net -1710 ml Exam: General: NAD, obese Cardiovascular: irregularly irregular, no M/R/G Respiratory: CTAB, no W/R/R Abdomen: NABS, S/NT/ND, no R/G Ext: R leg immobilized. Skin: No rashes or lesions Neuro: Alert/oriented x3, CNII-XII grossly intact Basic Labs: Lab Results Component Value Date NA 135 09/18/2018 K 4.3 09/18/2018 CL 99 09/18/2018 BICARB 34 09/18/2018 BUN 14 09/18/2018 CR 0.65 09/18/2018 GLU 154 09/18/2018 CA 8.9 09/18/2018 ANIONGAP 2 09/18/2018 ANIONALBCOR 5 09/18/2018 Lab Results Component Value Date WBC 13.05 09/18/2018 HB 11.1 09/18/2018 HCT 34.7 09/18/2018 PLT 240 09/18/2018 MCV 99.4 09/18/2018 RDW 58.2 09/18/2018 Current Medications: acetaminophen (TYLENOL) tablet 1,000 mg, 1,000 mg, oral, Q8H albuterol (PROVENTIL, VENTOLIN) 90 mcg/actuation inhaler 1 puff, 1 puff, inhalation, Q4H AZ N beclomethasone (QVAR) 80 mcg/actuation inhaler 2 puff, 2 puff, inhalation, BID bisacodyl (DULCOLAX) suppository 10 mg, 10 mg, rectal, DAILY buPROPion XL (WELLBUTRIN-XL) tablet 450 mg, 450 mg, oral, DAILY calcium citrate (CITRACAL) tablet 400 mg elemental, 400 mg elemental, oral, TID dextrose 50 % in water IV 25 mL, 25 mL, intravenous, PRN dilTIAZem CD 24 hour release (CARDIZEM CD) capsule 360 mg, 360 mg, oral, HS enoxaparin (LOVENOX) injection 60 mg, 60 mg, subcutaneous, Q12H (Scheduled) ergocalciferol (VITAMIN D2, DRISDOL) capsule 50,000 Units, 50,000 Units, oral, Once per day on Thu ferrous sulfate tablet 65 mg elemental, 325 mg total salt, oral, BID glucagon (GLUCAGEN) injection 1 mg, 1 mg, intramuscular, PRN glucose chewable tablet 16 g, 16 g, oral, PRN insulin lispro (HUMALOG) injection 1-16 Units, 1-16 Units, subcutaneous, QID levothyroxine tablet 88 mcg, 88 mcg, oral, DAILY metoprolol succinate (TOPROL-XL) tablet 25 mg, 25 mg, oral, HS naloxone (NARCAN) injection, , intravenous, PRN nystatin (MYCOSTATIN) powder, , topical, BID omeprazole (PRILOSEC) capsule 20 mg, 20 mg, oral, DAILY oxyCODONE (immediate release) (ROXICODONE) tablet 10-15 mg, 10-15 mg, oral, Q4H PRN polyethylene glycol (MIRALAX) packet 34 g, 34 g, oral, TID PRN senna-docusate (SENOKOT S) 8.6-50 mg 1 tablet, 1 tablet, oral, BID warfarin (COUMADIN) tablet 5 mg, 5 mg, oral, QPM Assessment and plan: Patient is a 47 y.o. F with PMHx of morbid obesity, obesity hypoventilation syndrome on CPA P, DM, PTSD, asthma, Afib on coumadin, who presents from OSH with R distal femur fracture. #R distal femur fracture S/p Retrograde Femoral nail on 2018. - Per Ortho, OK to start full anticoagulation tonight. Will order coumadin to start tonigh t with pharmacy to manage. - Starting tylenol 1g TID given improvement in LFTs. - continue oxycodone 15mg q4hr PRN for now. Avoid IV narcotics given opiate induced hypove ntilation. #Opiate induced hypoventilation with acute respiratory acidosis Has recovered and mental status is now at baseline. #Obesity Hypoventilation syndrome CPAP ordered. Titrate O2 90-95. Has been on too much oxygen given chronic hypercarbia. C XR clear. #Type 2 DM Takes Metformin, Empaglifozin, Liraglutide at home. - Holding all oral anti-hyperglycemics. #Morbid obesity s/p laparoscopic sleeve gastrectomy Was being evaluated outpatient for bariatric surgery. Saw Ramona Sunshine on 08/30/18. #Transaminitis New since 07/20. Asymptomatic. Differential includes hepatic steatosis vs. Medication reac tion vs. Less likely autoimmune/viral hepatitis. Repeat labs show marked improvement in LFT s. Potential medications on her list include atorvastatin and bupropion. Will hold atorvast atin for now, and resume bupropion given patient is on a high dose and would not want her to go through withdrawal. Neither of these medications are new for her. LFTs continue to levy ntrend this morning, and etiology is still unclear. I suppose LFTs could be improving due t o holding statin. Hepatitis serologies negative. - continue holding atorvastatin. - trend LFTs daily - will defer liver ultrasound given marked improvement daily in her LFTs. #MRSA colonization - Received 2 doses of Vancomycin perioperatively. Discussed with Dr. Lashaun wiggins. No further abx indicated. #Depression - Continue bupropion 450mg daily. #A-fib - Resume warfarin tonight per Ortho recs. Pharmacy to dose. Continue Dilt, Metopro lol. Diet: Diabetic diet Prophy: Lovenox 60 BID (given weight). Coumadin starting tonight. Will continue lovenox u ntil coumadin is therapeutic. FEN/GI: replete lytes Code status: FULL code Dispo: [facility] Isi Peres MD [employer] Pastermerchandising stock associate Clinical Hospitalist Division of Hospital Medicine [facility] Pager [phone] I spent 30 minutes in the care of this patient. Greater than 50% of the time was spent cou nseling and coordination of care with orthopedics. Clif Rizvi MD - 019 11:35 AM PDT Orthopaedic Surgery Progress Note Patient: /Age: MRN: CSN: Date: Admission Date: Hospital Day: Orthopaedic Attending: Aspen Darden 1970 48 y.o. [id number] 09/17/2018 09/14/2018 3 Shyam Mortensen MD Diagnosis(es): 1. Right distal femur fracture Orthopaedic Procedure(s) & Date(s): 1. 09/16/18: Retrograde femoral intramedullary nail Assessment & Plan: Aspen Darden is a 48 y.o.F with the diagnoses/procedures listed above. Today's specific concerns include: PT Pain control Secondary Survey: Done on 09/17/18 Care Protocol Items: 1. Immobility due to illness 1. Weight bearing: touch-down or toe touch weight bearing, ri ght lower extremity 2. ROM: as tolerated, motion encouraged 2. VTE prophylaxis: high risk, lovenox SC 40mg daily or by weight, sequential compression d evices, or per primary. May need BID dosing due to weight. 3. Antibiotics: ceFAZolin, for 24 hours perioperatively 4. Special Concerns: post-op imaging ordered, case managment for discharge planning, [place] out POD#1 5. Drains: none 6. Dressings: DRESSING CARE Leave dressing in place until your follow up appointment, or at a minimum, 7-10 days after leaving the hospital. After that time, you may change your dressing daily and check the inc ision for any signs of infection, such as: redness, swelling, unusual pain, or increasing d rainage. Your incision should be kept clean and dry. If you have sutures or kayleen, do not get your wound wet for 5-7 days after your operation: either sponge bath or cover the incis ion with a waterproof bandage. You may shower, but please do not scrub at the dressing/surg ical site. Please do not soak the dressing in pool, tub, or jacuzzi. Keep your incision co violeta with a dressing until there is no discharge on bandage. 5. Orthopaedic Follow-up: Please call the clinic to make a follow up appointment in [facility] [address] Mortensen, Subjective: Overnight Events: None Objective: Last Vitals: Pulse: 78 BP: 103/58 Temp: 37.1 C (98.8 F) SpO2: 92 % Resp: 16 24 Hour Vital Min/Max: Pulse Av.4 Min: 75 Max: 110 BP Min: 93/77 Max: 140/97 Temp Av.9 C (98.5 F) Min: 36.5 C (97.7 F) Max: 37.6 C (99.7 F) SpO2 Av.1 % Min: 92 % Max: 100 % Resp Av.3 Min: 10 Max: 25 Recent Laboratory Data: Lab Results Component Value Date WBC 11.66 09/17/2018 HCT 36.4 09/17/2018 Exam: General: appropriate, oriented Respiratory: regular, appropriate effort, not auscultated, cpap on RUE - . 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 Sensation intact to li ght touch over axillary, median, ulnar, and radial nerve distributions, palpable radial puls e, fingers pink and warm LUE - . 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 Sensation intact to li ght touch over axillary, median, ulnar, and radial nerve distributions, palpable radial puls e, fingers pink and warm RLE - dressings in place. Minimal strikethrough. Motor intact to ankle dorsiflexion & plant arflexion, extensor hallucis longus, flexor hallucis longus. Sensation intact to light touch over deep peroneal, superficial peroneal, saphenous, sural, and tibial nerve distributions. Palpable DP/PT pulses, toes pink and warm. LLE - . Motor intact to ankle dorsiflexion & plantarflexion, extensor hallucis longus, flex or hallucis longus. Sensation intact to light touch over deep peroneal, superficial peroneal , saphenous, sural, and tibial nerve distributions. Palpable DP/PT pulses, toes pink and war m. Clif Bain MD [facility]opa[facility] [address] [place] [address] Mail Code: OP31 [facility] [phone] Isi Trinidad MD - 019 8:31 AM PDT HOSPITALIST INPATIENT PROGRESS NOTE Author: Isi Peres MD PCP: Iqra Starkey MD Hospital Day:3 24h Events: - s/p retrograde femoral nail yesterday. - LAWRENCE o/n. - Received 45mg oxycodone overnight. Pain rated at 9/10. - LFTs quickly normalizing Subj: Says she had a pretty good night last night. Asking for oxycodone. Vitals: Last Vitals: BP 122/76 (BP Location: Left lower arm, Patient Position: Lying on back) | Pu lse 98 | Temp 36.5 C (97.7 F) | Resp 20 | SpO2 97% 24 Hour Vital Min/Max: Systolic (24hrs), Av , Min:93 , Max:140 Diastolic (24hrs), Av, Min:32, Max:97 Pulse Min: 86 Max: 110 Temp Min: 36.5 C (97.7 F) Max: 37.7 C (99.9 F) Resp Min: 10 Max: 25 SpO2 Min: 92 % Max: 100 % Intake/Output Summary (Last 24 hours) at 09/17/18 0831 Last data filed at 09/17/18 0828 Gross per 24 hour Intake 2410 ml Output 3575 ml Net -1165 ml Exam: General: NAD, obese Cardiovascular: irregularly irregular, no M/R/G Respiratory: CTAB, no W/R/R Abdomen: NABS, S/NT/ND, no R/G Ext: R leg immobilized. Skin: No rashes or lesions Neuro: Alert/oriented x3, CNII-XII grossly intact Basic Labs: Lab Results Component Value Date NA 136 09/17/2018 K 5.3 09/17/2018 CL 100 09/17/2018 BICARB 32 09/17/2018 BUN 11 09/17/2018 CR 0.55 09/17/2018 GLU 151 09/17/2018 CA 8.9 09/17/2018 ANIONGAP 4 09/17/2018 ANIONALBCOR 7 09/17/2018 Lab Results Component Value Date WBC 11.66 09/17/2018 HB 11.6 09/17/2018 HCT 36.4 09/17/2018 PLT 225 09/17/2018 MCV 98.1 09/17/2018 RDW 56.0 09/17/2018 Current Medications: acetaminophen (TYLENOL) tablet 1,000 mg, 1,000 mg, oral, Q8H albuterol (PROVENTIL, VENTOLIN) 90 mcg/actuation inhaler 1 puff, 1 puff, inhalation, Q4H AZ N beclomethasone (QVAR) 80 mcg/actuation inhaler 2 puff, 2 puff, inhalation, BID bisacodyl (DULCOLAX) suppository 10 mg, 10 mg, rectal, DAILY PRN buPROPion XL (WELLBUTRIN-XL) tablet 450 mg, 450 mg, oral, DAILY calcium citrate (CITRACAL) tablet 400 mg elemental, 400 mg elemental, oral, TID dextrose 50 % in water IV 25 mL, 25 mL, intravenous, PRN dilTIAZem CD 24 hour release (CARDIZEM CD) capsule 360 mg, 360 mg, oral, HS enoxaparin (LOVENOX) injection 40 mg, 40 mg, subcutaneous, QPM ergocalciferol (VITAMIN D2, DRISDOL) capsule 50,000 Units, 50,000 Units, oral, Once per day on Thu ferrous sulfate tablet 65 mg elemental, 325 mg total salt, oral, BID glucagon (GLUCAGEN) injection 1 mg, 1 mg, intramuscular, PRN glucose chewable tablet 16 g, 16 g, oral, PRN insulin lispro (HUMALOG) injection 1-16 Units, 1-16 Units, subcutaneous, QID levothyroxine tablet 88 mcg, 88 mcg, oral, DAILY metoprolol succinate (TOPROL-XL) tablet 25 mg, 25 mg, oral, HS naloxone (NARCAN) injection, , intravenous, PRN omeprazole (PRILOSEC) capsule 20 mg, 20 mg, oral, DAILY oxyCODONE (immediate release) (ROXICODONE) tablet 10-15 mg, 10-15 mg, oral, Q4H PRN polyethylene glycol (MIRALAX) packet 34 g, 34 g, oral, TID PRN senna-docusate (SENOKOT S) 8.6-50 mg 1 tablet, 1 tablet, oral, BID vancomycin (VANCOCIN) IV 1,000 mg, 1,000 mg, intravenous, Q12H Assessment and plan: Patient is a 47 y.o. F with PMHx of morbid obesity, obesity hypoventilation syndrome on CPA P, DM, PTSD, asthma, Afib on coumadin, who presents from OSH with R distal femur fracture. #R distal femur fracture S/p Retrograde Femoral nail on 2018. - will start lovenox ppx tonight. Will discuss with Ortho when safe to resume full anticoa gulation with Warfarin. - Starting tylenol 1g TID given improvement in LFTs. - continue oxycodone 15mg q4hr PRN for now. Avoid IV narcotics given opiate induced hypove ntilation. #Opiate induced hypoventilation with acute respiratory acidosis Has recovered and mental status is now at baseline. #Obesity Hypoventilation syndrome CPAP ordered. Titrate O2 90-95. Has been on too much oxygen given chronic hypercarbia. C XR clear. #Type 2 DM Takes Metformin, Empaglifozin, Liraglutide at home. - Holding all oral anti-hyperglycemics. #Morbid obesity s/p laparoscopic sleeve gastrectomy Was being evaluated outpatient for bariatric surgery. Saw Ramona Jong on 08/30/18. #Transaminitis New since 07/20. Asymptomatic. Differential includes hepatic steatosis vs. Medication reac tion vs. Less likely autoimmune/viral hepatitis. Repeat labs show marked improvement in LFT s. Potential medications on her list include atorvastatin and bupropion. Will hold atorvast atin for now, and resume bupropion given patient is on a high dose and would not want her to go through withdrawal. Neither of these medications are new for her. LFTs continue to levy ntrend this morning, and etiology is still unclear. I suppose LFTs could be improving due t o holding statin. Hepatitis serologies negative. - continue holding atorvastatin. - trend LFTs daily - will defer liver ultrasound given marked improvement daily in her LFTs. #MRSA colonization - consider Vanco for surgical prophylaxis. Discussed with Dr. Berrios. #Depression - Continue bupropion 450mg daily. #A-fib - Stop Warfarin. Continue Dilt, Metoprolol. Per Ortho, OK to resume full anticoagul ation with warfarin tomorrow evening. Diet: Diabetic diet after surgery. NPO for now. Prophy: Lovenox 40 BID (given weight). FEN/GI: replete lytes Code status: FULL code Dispo: [facility] Isi Peres MD Core Pastermerchandising stock associate Clinical Hospitalist Division of Hospital Medicine [facility] Pager [phone] I spent 30 minutes in the care of this patient. Greater than 50% of the time was spent cou nseling and coordination of care with orthopedics. Clif Rizvi MD - 019 7:05 PM PDTPOST-OP CHECK Author: Clif Bain MD Attending Physician: Isi Peres MD Hospital Day: 2 Date: 2018 Interval Hx: No new complaints. Denies nausea. Pain controlled. Vital Signs: Last Vitals: BP 125/51 (BP Location: Right upper arm, Patient Position: Lying on back) | P ulse 101 | Temp 36.7 C (98.1 F) | Resp 18 | SpO2 94% Physical Examination: General Appearance: no acute distress Breathing comfortably HEENT: Incision c/d/i Assessment and Plan: Aspen Darden is a 48 y.o. female, POD#0 s/p retrograde femoral nail. -doing well -pain controlled with current regimen -continue current care -TTWB RLE Clif Bain MD Isi Trinidad MD - 019 8:30 AM PDT HOSPITALIST INPATIENT PROGRESS NOTE Author: Isi Peres MD PCP: Iqra Starkey MD Hospital Day:2 24h Events: - Plan for OR today. - Received an additional 0.7mg IV dilaudid overnight for pain. Subj: Seen prior to being taken to OR. Reporting more pain in her leg this morning. Vitals: Last Vitals: BP 113/67 (BP Location: Left lower arm, Patient Position: Lying on back) | Pu lse 99 | Temp 37.1 C (98.8 F) | Resp 18 | SpO2 97% 24 Hour Vital Min/Max: Systolic (24hrs), Av , Min:98 , Max:135 Diastolic (24hrs), Av, Min:53, Max:98 Pulse Min: 91 Max: 110 Temp Min: 36.4 C (97.5 F) Max: 37.2 C (99 F) Resp Min: 14 Max: 20 SpO2 Min: 93 % Max: 99 % Intake/Output Summary (Last 24 hours) at 09/16/18 0830 Last data filed at 09/16/18 0644 Gross per 24 hour Intake 1158 ml Output 4900 ml Net -3742 ml Exam: General: NAD, obese Cardiovascular: irregularly irregular, no M/R/G Respiratory: CTAB, no W/R/R Abdomen: NABS, S/NT/ND, no R/G Ext: R leg immobilized. Skin: No rashes or lesions Neuro: Alert/oriented x3, CNII-XII grossly intact Basic Labs: Lab Results Component Value Date NA 139 2018 K 4.3 2018 CL 103 2018 BICARB 33 2018 BUN 8 2018 CR 0.57 2018 GLU 143 2018 CA 8.8 2018 ANIONGAP 3 2018 ANIONALBCOR 5 2018 Lab Results Component Value Date WBC 8.98 2018 HB 12.0 2018 HCT 38.0 2018 PLT 199 2018 MCV 98.4 2018 RDW 56.0 2018 Current Medications: acetaminophen (TYLENOL) tablet 650 mg, 650 mg, oral, Q4H PRN albuterol (PROVENTIL, VENTOLIN) 90 mcg/actuation inhaler 1 puff, 1 puff, inhalation, Q4H AZ N beclomethasone (QVAR) 80 mcg/actuation inhaler 2 puff, 2 puff, inhalation, BID bisacodyl (DULCOLAX) suppository 10 mg, 10 mg, rectal, DAILY PRN buPROPion XL (WELLBUTRIN-XL) tablet 450 mg, 450 mg, oral, DAILY calcium citrate (CITRACAL) tablet 400 mg elemental, 400 mg elemental, oral, TID dextrose 50 % in water IV 25 mL, 25 mL, intravenous, PRN dilTIAZem CD 24 hour release (CARDIZEM CD) capsule 360 mg, 360 mg, oral, HS [START ON 09/17/2018] ergocalciferol (VITAMIN D2, DRISDOL) capsule 50,000 Units, 50,000 Unit s, oral, Once per day on Thu ferrous sulfate tablet 65 mg elemental, 325 mg total salt, oral, BID glucagon (GLUCAGEN) injection 1 mg, 1 mg, intramuscular, PRN glucose chewable tablet 16 g, 16 g, oral, PRN insulin lispro (HUMALOG) injection 1-16 Units, 1-16 Units, subcutaneous, QID levothyroxine tablet 88 mcg, 88 mcg, oral, DAILY metoprolol succinate (TOPROL-XL) tablet 25 mg, 25 mg, oral, HS naloxone (NARCAN) injection, , intravenous, PRN omeprazole (PRILOSEC) capsule 20 mg, 20 mg, oral, DAILY oxyCODONE (immediate release) (ROXICODONE) tablet 10-15 mg, 10-15 mg, oral, Q4H PRN polyethylene glycol (MIRALAX) packet 34 g, 34 g, oral, TID PRN senna-docusate (SENOKOT S) 8.6-50 mg 1 tablet, 1 tablet, oral, BID Assessment and plan: Patient is a 47 y.o. F with PMHx of morbid obesity, obesity hypoventilation syndrome on CPA P, DM, PTSD, asthma, Afib on coumadin, who presents from OSH with R distal femur fracture. #R distal femur fracture Orthopedics planning for repair tomorrow due to scheduling. - INR 1.25 today. - Plan for OR, management per Ortho. #Opiate induced hypoventilation with acute respiratory acidosis Has recovered and mental status is now at baseline. #Obesity Hypoventilation syndrome CPAP ordered. Titrate O2 90-95. Has been on too much oxygen given chronic hypercarbia. C XR clear. #Type 2 DM Takes Metformin, Empaglifozin, Liraglutide at home. - Holding all oral anti-hyperglycemics. #Morbid obesity s/p laparoscopic sleeve gastrectomy Was being evaluated outpatient for bariatric surgery. Saw Ramona Sunshine on 08/30/18. #Transaminitis New since 07/20. Asymptomatic. Differential includes hepatic steatosis vs. Medication reac tion vs. Less likely autoimmune/viral hepatitis. Repeat labs show marked improvement in LFT s. Potential medications on her list include atorvastatin and bupropion. Will hold atorvast atin for now, and resume bupropion given patient is on a high dose and would not want her to go through withdrawal. Neither of these medications are new for her. LFTs continue to levy ntrend this morning, and etiology is still unclear. I suppose it could be due to holding st atin. Hepatitis serologies negative. - continue holding atorvastatin. - trend LFTs daily - will defer liver ultrasound given marked improvement daily in her LFTs. #MRSA colonization - consider Vanco for surgical prophylaxis. Discussed with Dr. Berrios. #Depression Would not want patient to go through withdrawal. Will resume bupropion 450mg daily. #A-fib - Stop Warfarin. Continue Dilt, Metoprolol. Diet: Diabetic diet after surgery. NPO for now. Prophy: holding for surgery. DVT ppx per ortho team, will also need to resume warfarin. FEN/GI: replete lytes Code status: FULL code Dispo: [facility] Isi Peres MD Core Pastermerchandising stock associate Clinical Hospitalist Division of Hospital Medicine [facility] Pager [phone] I spent 30 minutes in the care of this patient. Greater than 50% of the time was spent cou nseling and coordination of care with orthopedics. TERChoIsi MD - 09/15/2018 1:46 PM PDT HOSPITALIST INPATIENT PROGRESS NOTE Author: Isi Peres MD PCP: Iqra Starkey MD Hospital Day:1 24h Events: - Surgery canceled today for scheduling reasons and INR needs to be <1.5. Subj: No complaints this morning, just asking for more pain medications. Vitals: Last Vitals: BP 135/86 | Pulse 93 | Temp 36.9 C (98.4 F) | Resp 18 | SpO2 95% 24 Hour Vital Min/Max: Systolic (24hrs), Av , Min:98 , Max:135 Diastolic (24hrs), Av, Min:45, Max:90 Pulse Min: 82 Max: 103 Temp Min: 36.4 C (97.5 F) Max: 37.2 C (99 F) Resp Min: 16 Max: 18 SpO2 Min: 48 % Max: 99 % Intake/Output Summary (Last 24 hours) at 09/15/18 1356 Last data filed at 09/15/18 0951 Gross per 24 hour Intake 1363 ml Output 300 ml Net 1063 ml Exam: General: NAD, obese Cardiovascular: irregularly irregular, no M/R/G Respiratory: CTAB, no W/R/R Abdomen: NABS, S/NT/ND, no R/G Ext: W/WPx4, no MIKE b/l Skin: No rashes or lesions Neuro: Alert/oriented x3, CNII-XII grossly intact Basic Labs: Lab Results Component Value Date NA 139 09/15/2018 K 4.8 09/15/2018 CL 103 09/15/2018 BICARB 33 09/15/2018 BUN 14 09/15/2018 CR 0.54 09/15/2018 GLU 98 09/15/2018 CA 8.6 09/15/2018 ANIONGAP 3 09/15/2018 ANIONALBCOR 5 09/15/2018 Lab Results Component Value Date WBC 7.39 09/15/2018 HB 12.8 09/15/2018 HCT 40.3 09/15/2018 PLT 234 09/15/2018 MCV 98.1 09/15/2018 RDW 57.0 09/15/2018 Current Medications: acetaminophen (TYLENOL) tablet 650 mg, 650 mg, oral, Q4H PRN albuterol (PROVENTIL, VENTOLIN) 90 mcg/actuation inhaler 1 puff, 1 puff, inhalation, Q4H AZ N beclomethasone (QVAR) 80 mcg/actuation inhaler 2 puff, 2 puff, inhalation, BID bisacodyl (DULCOLAX) suppository 10 mg, 10 mg, rectal, DAILY PRN calcium citrate (CITRACAL) tablet 400 mg elemental, 400 mg elemental, oral, TID dilTIAZem CD 24 hour release (CARDIZEM CD) capsule 360 mg, 360 mg, oral, HS [START ON 09/17/2018] ergocalciferol (VITAMIN D2, DRISDOL) capsule 50,000 Units, 50,000 Unit s, oral, Once per day on Thu ferrous sulfate tablet 65 mg elemental, 325 mg total salt, oral, BID levothyroxine tablet 88 mcg, 88 mcg, oral, DAILY metoprolol succinate (TOPROL-XL) tablet 25 mg, 25 mg, oral, HS naloxone (NARCAN) injection, , intravenous, PRN omeprazole (PRILOSEC) capsule 20 mg, 20 mg, oral, DAILY oxyCODONE (immediate release) (ROXICODONE) tablet 5-10 mg, 5-10 mg, oral, Q4H PRN polyethylene glycol (MIRALAX) packet 34 g, 34 g, oral, TID PRN senna-docusate (SENOKOT S) 8.6-50 mg 1 tablet, 1 tablet, oral, BID #Preoperative Risk Stratification Revised Cardiac Risk Index (RCRI) (1 point for each risk) Known ischemic heart disease: 0 Congestive Heart Failure: 0 Cerebrovascular disease: 0 Renal insufficiency (creatinine level > 2): 0 DM (requiring insulin): 0 Surgery Specific Risk (intraperitoneal; intrathoracic; suprainguinal vascular): 0 Rate of cardiac , non fatal KS, non fatal cardiac arrest 0 risk factors - 0.4% (very low) 1 risk factors - 0.9% (low) 2 risk factors - 6.6%, (moderate) 3 or >risk factors - 11% (high) ACC/AHA Perioperative Guidelines: 1. Need for emergency noncardiac surgery? b. No -> Proceed to next step 2. Active Cardiac Conditions? These conditions mandate further investigation and manageme nt. A. Acute KS within 7 days: no B. Unstable angina/Recent KS (7- 30 days): no C. Decompensated CHF: no D. Significant arrhythmia: None E. Severe valvular disease: NONE 3. Low risk surgery? b. No -> proceed with next step Surgery Specific Risk 4. Good functional capacity? (>4 METS)b. No -> proceed with next step Functional METs 5. Assess Clinical Risk Factors? A. Ischemic heart disease: no B. Compensated / prior heart failure: no C. Diabetes mellitus (requiring Insulin): no D. Renal insufficiency (Cr > 2): no E. Cerebrovascular disease: no ACC/AHA Risk Factor Recommendations: 0 risk factors- proceed with planned surgery Surgery Risk: Intermediate Risk Factor Recommendations: 0 risk factors- proceed with planned surgery Surgery Risk: Intermediate Patient-related risk: Estimated ASA class -- 2 Assessment/Plan:: Preoperative Evaluation: Ms. Darden has 0 risk factor(s) undergoing Intermediate risk surgery, with an exercise laith ance of <4 METs (limited by knee pain) with no symptoms of angina or dyspnea which may be suggestive of ischemia. LVSF is normal. Per ACC/AHA guidelines, further risk stratification with non-invasive testing is not indicated prior to surgery, as results may not change ambrocio operative management. Per Revised Cardiac Risk Index, predicted risk of perioperative cardia c morbidity/mortality is approximately 0.4%. Patient is considered high risk of pulmonary c omplications but this is not modifiable. Cardiac Medications: Continue all cardiac medications perioperatively. Please pay meticulou s attention to maintaining appropriate heart rate, blood pressure, intravascular volume and hematocrit perioperatively, as preventing significant increases in double product or cardiac workload is rutledge in preventing perioperative cardiac complications. Keep rate pressure produ ct < 10,000-12,000, Pulse < 70, if needed, consider intraoperative IV beta stacey to achiev e blood pressure or heart rate control. Continue statin medication perioperatively. Anticoagulation: Hold Warfarin for now, restart when patient surgically stable. Patient hi l not need to bridge with heparin or low molecular weight heparin. CHADS2 Score = 1 Continue for now. Assessment and plan: Patient is a 47 y.o. F with PMHx of morbid obesity, obesity hypoventilation syndrome on CPA P, DM, PTSD, asthma, Afib on coumadin, who presents from OSH with R distal femur fracture. #R distal femur fracture Orthopedics planning for repair tomorrow due to scheduling. - Goal INR for surgery is <1.5. Will give an additional 2.5mg of PO vitamin K. - see above for preop risk stratification. #Opiate induced hypoventilation with acute respiratory acidosis Has recovered and mental status is now at baseline. Last pH still below 7.3, though. Follo w course closely. #Obesity Hypoventilation syndrome CPAP ordered. Titrate O2 90-95. Has been on too much oxygen given chronic hypercarbia. C XR clear. #Type 2 DM Takes Metformin, Empaglifozin, Liraglutide at home. - Holding all oral anti-hyperglycemics. #Morbid obesity s/p laparoscopic sleeve gastrectomy Was being evaluated outpatient for bariatric surgery. Saw Ramona Jong on 08/30/18. #Transaminitis New since 07/20. Asymptomatic. Differential includes hepatic steatosis vs. Medication reac tion vs. Less likely autoimmune/viral hepatitis. Repeat labs show marked improvement in LFT s. Potential medications on her list include atorvastatin and bupropion. Will hold atorvast atin for now, and resume bupropion given patient is on a high dose and would not want her to go through withdrawal. Neither of these medications are new for her. - trend LFTs daily. - check hepatitis serologies - consider liver US after surgery. #MRSA colonization - consider Vanco for surgical prophylaxis. Discussed with Dr. Berrios. #Depression Would not want patient to go through withdrawal. Will resume bupropion 450mg daily. #A-fib - Stop Warfarin. Continue Dilt, Metoprolol. Medication Reconciliation completed by Pharmacist Diet: Diabetic diet, NPO at midnight. Prophy: holding for surgery. FEN/GI: replete lytes Code status: FULL code Dispo: [facility] Isi Peres MD Core Pastermerchandising stock associate Clinical Hospitalist Division of Hospital Medicine [facility] Pager [phone] I spent 60 minutes in the care of this patient. Greater than 50% of the time was spent cou nseling and coordination of care with orthopedics, completing preoperative risk stratificati on. hanaeAnita villasenor, AGACNP - 09/15/2018 7:04 AM PDT Orthopaedic Surgery Progress Note Date: 09/15/2018 Hospital Day: 1 Orthopaedic Attending: Ang Betancourt MD Diagnosis(es): 1. Right distal femur fracture Orthopaedic Procedure(s) & Date(s): NTD Assessment & Plan: Aspen Darden is a 47 y.o.F with the orthopaedic diagnoses and procedur es listed above. Today's specific concerns include: Appreciate [facility] assistance in medical optimization and managment Currently INR >2.0, Tentatively planning OR Th09/16 w/INR goal<1.5 ideally NPO after midnoc for surgery tomorrow Care Protocol Items: 1. Activity: 1. Weight bearing: non-weight bearing, right lower extremity 2. ROM: as tolerated, motion encouraged 2. VTE prophylaxis: high risk, sequential compression devices, hold until perioperative ble eding risk decreased 3. Pain management: oral analgesia and IV analgesia, wean as possible 4. Antibiotics: ceFAZolin, for 24 hours perioperatively 5. Special Concerns: Case managment for discharge planning Social Work:Would like her best friend who is like a sister to her Yeny Carlin to be her primary nursing department chairperson Interested in obtaining paperwork to establish her as HCPOA 6. Dressings/Drains: Maintain acewraping until OR 7. Dispo/Discharge: Continue acute inpatient care 8. Follow-up: To be determined, based on clinical course Subjective: Pain 10:10 "worst pain ever". Was speaking on the phone when I walked in. She is understan ding about surgery moving to 09/16 which gives us the day to obtain further imaging and reverse her AC appropriate for surgery. Objective: 24 hour Vitals: Temp Av.5 C (97.7 F) Min: 36.4 C (97.5 F) Max: 36.6 C (97.9 F) Systolic (24hrs), Av , Min:99 , Max:133 Diastolic (24hrs), Av, Min:45, Max:90 Pulse Av.8 Min: 82 Max: 103 SpO2 Av.4 % Min: 48 % Max: 99 % Lab Results Component Value Date HCT 40.3 09/15/2018 HCT 47.8 07/09/2018 HCT 48.2 06/16/2017 Lab Results Component Value Date WBC 7.39 09/15/2018 HB 12.8 09/15/2018 HCT 40.3 09/15/2018 PLT 234 09/15/2018 MCV 98.1 09/15/2018 RDW 57.0 09/15/2018 Lab Results Component Value Date NA 139 09/15/2018 K 4.2 09/15/2018 CL 105 09/15/2018 BICARB 32 09/15/2018 BUN 15 09/15/2018 EGFRAFRICAN >60 09/15/2018 EGFRNONAFR >60 09/15/2018 CR 0.58 09/15/2018 GLU 130 09/15/2018 CA 8.6 09/15/2018 ANIONGAP 2 09/15/2018 ANIONALBCOR 4 09/15/2018 Intake/Output Summary (Last 24 hours) at 09/15/18 0705 Last data filed at 09/15/18 0500 Gross per 24 hour Intake 1030 ml Output 300 ml Net 730 ml Exam: General: appropriate, oriented RIGHT LOWER EXTREMITY: Inspection: Large swollen thigh with acewrap midthigh to ankle Palpation: TTP mid anteror thigh ROM: full A/ROM ankle, foot, toes (knee & hip deferred 2/2 pain) Motor: fires tibialis anterior, fires gastrocsoleus complex, fires EHL, fires FHL, Sensory: grossly intact to light touch, medial, lateral, dorsal, 1st dorsal web space, plantar Vascular: palpable dorsalis pedis, palpable posterior tibial, digits warm & well perfused, capillary refill < 2 seconds Anita Buck [facility] Orthopaedic Trauma Surgery Pager [phone] documented in t his encounter Plan of Treatment Not on filedocumented as of this encounter Procedures + +--------+ + + + | Procedure Name | Priori | Date/Time | Associated Diagnosis | Comments | | | ty | | | | + +--------+ + + + | CAPILLARY BLOOD | Routin | 09/21/2018 | Closed bicondylar | Results for this | | GLUCOSE (NO CHG), | e | 10:45 AM | fracture of right | procedure are in the | | POC | | PDT | femur, initial | results section. | | | | | encounter (HCC) | | + +--------+ + + + | CBC (HEMOGRAM) ONLY | Routin | 09/21/2018 | | Results for this | | | e | 6:54 AM | | procedure are in the | | | | PDT | | results section. | + +--------+ + + + | INR | Routin | 09/21/2018 | | Results for this | | | e | 6:54 AM | | procedure are in the | | | | PDT | | results section. | + +--------+ + + + | COMPLETE METABOLIC | Routin | 09/21/2018 | | Results for this | | SET | e | 6:54 AM | | procedure are in the | | (NA,K,CL,CO2,BUN,CRE | | PDT | | results section. | | AT,GLUC,CA,AST,ALT,B | | | | | | JAYCEE TOTAL,ALK | | | | | | PHOS,ALB,PROT TOTAL) | | | | | + +--------+ + + + | CBC ONLY | Routin | 09/21/2018 | | Results for this | | | e | 6:54 AM | | procedure are in the | | | | PDT | | results section. | + +--------+ + + + | CAPILLARY BLOOD | Routin | 09/21/2018 | Closed bicondylar | Results for this | | GLUCOSE (NO CHG), | e | 12:21 AM | fracture of right | procedure are in the | | POC | | PDT | femur, initial | results section. | | | | | encounter (HCC) | | + +--------+ + + + | CAPILLARY BLOOD | Routin | 09/20/2018 | Closed bicondylar | Results for this | | GLUCOSE (NO CHG), | e | 8:58 PM | fracture of right | procedure are in the | | POC | | PDT | femur, initial | results section. | | | | | encounter (HCC) | | + +--------+ + + + | URINE, MICROSCOPIC | Routin | 09/20/2018 | | Results for this | | EXAM | e | 4:39 PM | | procedure are in the | | | | PDT | | results section. | + +--------+ + + + | CAPILLARY BLOOD | Routin | 09/20/2018 | Closed bicondylar | Results for this | | GLUCOSE (NO CHG), | e | 2:27 PM | fracture of right | procedure are in the | | POC | | PDT | femur, initial | results section. | | | | | encounter (HCC) | | + +--------+ + + + | CAPILLARY BLOOD | Routin | 09/20/2018 | Closed bicondylar | Results for this | | GLUCOSE (NO CHG), | e | 10:13 AM | fracture of right | procedure are in the | | POC | | PDT | femur, initial | results section. | | | | | encounter (HCC) | | + +--------+ + + + | CBC (HEMOGRAM) ONLY | Routin | 09/20/2018 | | Results for this | | | e | 6:09 AM | | procedure are in the | | | | PDT | | results section. | + +--------+ + + + | INR | Routin | 09/20/2018 | | Results for this | | | e | 6:09 AM | | procedure are in the | | | | PDT | | results section. | + +--------+ + + + | COMPLETE METABOLIC | Routin | 09/20/2018 | | Results for this | | SET | e | 6:09 AM | | procedure are in the | | (NA,K,CL,CO2,BUN,CRE | | PDT | | results section. | | AT,GLUC,CA,AST,ALT,B | | | | | | JAYCEE TOTAL,ALK | | | | | | PHOS,ALB,PROT TOTAL) | | | | | + +--------+ + + + | CBC ONLY | Routin | 09/20/2018 | | Results for this | | | e | 6:09 AM | | procedure are in the | | | | PDT | | results section. | + +--------+ + + + | CAPILLARY BLOOD | Routin | 09/20/2018 | Closed bicondylar | Results for this | | GLUCOSE (NO CHG), | e | 12:02 AM | fracture of right | procedure are in the | | POC | | PDT | femur, initial | results section. | | | | | encounter (HCC) | | + +--------+ + + + | CAPILLARY BLOOD | Routin | 09/19/2018 | Closed bicondylar | Results for this | | GLUCOSE (NO CHG), | e | 8:37 PM | fracture of right | procedure are in the | | POC | | PDT | femur, initial | results section. | | | | | encounter (HCC) | | + +--------+ + + + | CAPILLARY BLOOD | Routin | 09/19/2018 | Closed bicondylar | Results for this | | GLUCOSE (NO CHG), | e | 2:41 PM | fracture of right | procedure are in the | | POC | | PDT | femur, initial | results section. | | | | | encounter (HCC) | | + +--------+ + + + | CAPILLARY BLOOD | Routin | 09/19/2018 | Closed bicondylar | Results for this | | GLUCOSE (NO CHG), | e | 10:08 AM | fracture of right | procedure are in the | | POC | | PDT | femur, initial | results section. | | | | | encounter (HCC) | | + +--------+ + + + | CBC (HEMOGRAM) ONLY | Routin | 09/19/2018 | | Results for this | | | e | 6:51 AM | | procedure are in the | | | | PDT | | results section. | + +--------+ + + + | INR | Routin | 09/19/2018 | | Results for this | | | e | 6:51 AM | | procedure are in the | | | | PDT | | results section. | + +--------+ + + + | COMPLETE METABOLIC | Routin | 09/19/2018 | | Results for this | | SET | e | 6:51 AM | | procedure are in the | | (NA,K,CL,CO2,BUN,CRE | | PDT | | results section. | | AT,GLUC,CA,AST,ALT,B | | | | | | JAYCEE TOTAL,ALK | | | | | | PHOS,ALB,PROT TOTAL) | | | | | + +--------+ + + + | CBC ONLY | Routin | 09/19/2018 | | Results for this | | | e | 6:51 AM | | procedure are in the | | | | PDT | | results section. | + +--------+ + + + | CAPILLARY BLOOD | Routin | 09/18/2018 | Closed bicondylar | Results for this | | GLUCOSE (NO CHG), | e | 11:09 PM | fracture of right | procedure are in the | | POC | | PDT | femur, initial | results section. | | | | | encounter (HCC) | | + +--------+ + + + | CAPILLARY BLOOD | Routin | 09/18/2018 | Closed bicondylar | Results for this | | GLUCOSE (NO CHG), | e | 7:56 PM | fracture of right | procedure are in the | | POC | | PDT | femur, initial | results section. | | | | | encounter (HCC) | | + +--------+ + + + | CAPILLARY BLOOD | Routin | 09/18/2018 | Closed bicondylar | Results for this | | GLUCOSE (NO CHG), | e | 2:51 PM | fracture of right | procedure are in the | | POC | | PDT | femur, initial | results section. | | | | | encounter (HCC) | | + +--------+ + + + | CAPILLARY BLOOD | Routin | 09/18/2018 | Closed bicondylar | Results for this | | GLUCOSE (NO CHG), | e | 9:59 AM | fracture of right | procedure are in the | | POC | | PDT | femur, initial | results section. | | | | | encounter (HCC) | | + +--------+ + + + | CBC (HEMOGRAM) ONLY | Routin | 09/18/2018 | | Results for this | | | e | 6:11 AM | | procedure are in the | | | | PDT | | results section. | + +--------+ + + + | INR | Routin | 09/18/2018 | | Results for this | | | e | 6:11 AM | | procedure are in the | | | | PDT | | results section. | + +--------+ + + + | COMPLETE METABOLIC | Routin | 09/18/2018 | | Results for this | | SET | e | 6:11 AM | | procedure are in the | | (NA,K,CL,CO2,BUN,CRE | | PDT | | results section. | | AT,GLUC,CA,AST,ALT,B | | | | | | JAYCEE TOTAL,ALK | | | | | | PHOS,ALB,PROT TOTAL) | | | | | + +--------+ + + + | CBC ONLY | Routin | 09/18/2018 | | Results for this | | | e | 6:11 AM | | procedure are in the | | | | PDT | | results section. | + +--------+ + + + | CAPILLARY BLOOD | Routin | 09/17/2018 | Closed bicondylar | Results for this | | GLUCOSE (NO CHG), | e | 10:32 PM | fracture of right | procedure are in the | | POC | | PDT | femur, initial | results section. | | | | | encounter (HCC) | | + +--------+ + + + | CAPILLARY BLOOD | Routin | 09/17/2018 | Closed bicondylar | Results for this | | GLUCOSE (NO CHG), | e | 8:18 PM | fracture of right | procedure are in the | | POC | | PDT | femur, initial | results section. | | | | | encounter (HCC) | | + +--------+ + + + | CAPILLARY BLOOD | Routin | 09/17/2018 | Closed bicondylar | Results for this | | GLUCOSE (NO CHG), | e | 3:32 PM | fracture of right | procedure are in the | | POC | | PDT | femur, initial | results section. | | | | | encounter (HCC) | | + +--------+ + + + | CAPILLARY BLOOD | Routin | 09/17/2018 | Closed bicondylar | Results for this | | GLUCOSE (NO CHG), | e | 9:56 AM | fracture of right | procedure are in the | | POC | | PDT | femur, initial | results section. | | | | | encounter (HCC) | | + +--------+ + + + | CBC (HEMOGRAM) ONLY | Routin | 09/17/2018 | | Results for this | | | e | 6:37 AM | | procedure are in the | | | | PDT | | results section. | + +--------+ + + + | INR | Routin | 09/17/2018 | | Results for this | | | e | 6:37 AM | | procedure are in the | | | | PDT | | results section. | + +--------+ + + + | COMPLETE METABOLIC | Routin | 09/17/2018 | | Results for this | | SET | e | 6:37 AM | | procedure are in the | | (NA,K,CL,CO2,BUN,CRE | | PDT | | results section. | | AT,GLUC,CA,AST,ALT,B | | | | | | JAYCEE TOTAL,ALK | | | | | | PHOS,ALB,PROT TOTAL) | | | | | + +--------+ + + + | CBC ONLY | Routin | 09/17/2018 | | Results for this | | | e | 6:37 AM | | procedure are in the | | | | PDT | | results section. | + +--------+ + + + | CAPILLARY BLOOD | Routin | 2018 | Closed bicondylar | Results for this | | GLUCOSE (NO CHG), | e | 10:18 PM | fracture of right | procedure are in the | | POC | | PDT | femur, initial | results section. | | | | | encounter (HCC) | | + +--------+ + + + | PROCEDURE NOTE | Routin | 2018 | | Results for this | | | e | 10:07 PM | | procedure are in the | | | | PDT | | results section. | + +--------+ + + + | CAPILLARY BLOOD | Routin | 2018 | Closed bicondylar | Results for this | | GLUCOSE (NO CHG), | e | 6:56 PM | fracture of right | procedure are in the | | POC | | PDT | femur, initial | results section. | | | | | encounter (HCC) | | + +--------+ + + + | CAPILLARY BLOOD | Routin | 2018 | Closed bicondylar | Results for this | | GLUCOSE (NO CHG), | e | 2:29 PM | fracture of right | procedure are in the | | POC | | PDT | femur, initial | results section. | | | | | encounter (HCC) | | + +--------+ + + + | PROCEDURE NOTE | Routin | 2018 | | Results for this | | | e | 1:15 PM | | procedure are in the | | | | PDT | | results section. | + +--------+ + + + | X-RAY FLUOROSCOPY IN | Urgent | 2018 | | Results for this | | OR > 1 HOUR | | 1:14 PM | | procedure are in the | | | | PDT | | results section. | + +--------+ + + + | X-RAY FEMUR 2 VIEWS | Urgent | 2018 | | Results for this | | RIGHT | | 1:13 PM | | procedure are in the | | | | PDT | | results section. | + +--------+ + + + | CAPILLARY BLOOD | Routin | 2018 | Closed bicondylar | Results for this | | GLUCOSE (NO CHG), | e | 12:22 PM | fracture of right | procedure are in the | | POC | | PDT | femur, initial | results section. | | | | | encounter (HCC) | | + +--------+ + + + | DISTAL FEMUR OPEN | Electi | 2018 | Right Distal Femur | | | REDUCTION INTERNAL | ve | 10:55 AM | Fracture | | | FIXATION | Surgic | PDT | | | | | al | | | | + +--------+ + + + | CAPILLARY BLOOD | Routin | 2018 | Closed bicondylar | Results for this | | GLUCOSE (NO CHG), | e | 8:08 AM | fracture of right | procedure are in the | | POC | | PDT | femur, initial | results section. | | | | | encounter (HCC) | | + +--------+ + + + | CBC (HEMOGRAM) ONLY | Routin | 2018 | | Results for this | | | e | 6:14 AM | | procedure are in the | | | | PDT | | results section. | + +--------+ + + + | INR | Routin | 2018 | | Results for this | | | e | 6:14 AM | | procedure are in the | | | | PDT | | results section. | + +--------+ + + + | COMPLETE METABOLIC | Routin | 2018 | | Results for this | | SET | e | 6:14 AM | | procedure are in the | | (NA,K,CL,CO2,BUN,CRE | | PDT | | results section. | | AT,GLUC,CA,AST,ALT,B | | | | | | JAYCEE TOTAL,ALK | | | | | | PHOS,ALB,PROT TOTAL) | | | | | + +--------+ + + + | CBC ONLY | Routin | 2018 | | Results for this | | | e | 6:14 AM | | procedure are in the | | | | PDT | | results section. | + +--------+ + + + | CARDIOLOGY | | 2018 | | Results for this | | | | 12:00 AM | | procedure are in the | | | | PDT | | results section. | + +--------+ + + + | CAPILLARY BLOOD | Routin | 09/15/2018 | Closed bicondylar | Results for this | | GLUCOSE (NO CHG), | e | 11:13 PM | fracture of right | procedure are in the | | POC | | PDT | femur, initial | results section. | | | | | encounter (HCC) | | + +--------+ + + + | CAPILLARY BLOOD | Routin | 09/15/2018 | Closed bicondylar | Results for this | | GLUCOSE (NO CHG), | e | 8:45 PM | fracture of right | procedure are in the | | POC | | PDT | femur, initial | results section. | | | | | encounter (HCC) | | + +--------+ + + + | HEPATITIS A AB, IGG | Routin | 09/15/2018 | Closed bicondylar | Results for this | | | e | 4:16 PM | fracture of right | procedure are in the | | | | PDT | femur, initial | results section. | | | | | encounter (HCC) | | + +--------+ + + + | HEPATITIS B SURFACE | Routin | 09/15/2018 | | Results for this | | AG W/REFLEX IF | e | 4:16 PM | | procedure are in the | | INDICATED | | PDT | | results section. | + +--------+ + + + | HEPATITIS A AB IGM, | Routin | 09/15/2018 | | Results for this | | SERUM | e | 4:16 PM | | procedure are in the | | | | PDT | | results section. | + +--------+ + + + | HEPATITIS B CORE AB, | Routin | 09/15/2018 | | Results for this | | SERUM | e | 4:16 PM | | procedure are in the | | | | PDT | | results section. | + +--------+ + + + | HEPATITIS C VIRUS | Routin | 09/15/2018 | | Results for this | | W/CONFIRMATION | e | 4:16 PM | | procedure are in the | | | | PDT | | results section. | + +--------+ + + + | CT LOWER EXTREMITY | Routin | 09/15/2018 | | Results for this | | RIGHT WO CONTRAST | e | 3:28 PM | | procedure are in the | | | | PDT | | results section. | + +--------+ + + + | CAPILLARY BLOOD | Routin | 09/15/2018 | Closed bicondylar | Results for this | | GLUCOSE (NO CHG), | e | 2:43 PM | fracture of right | procedure are in the | | POC | | PDT | femur, initial | results section. | | | | | encounter (HCC) | | + +--------+ + + + | TRANSFUSE FRESH | Routin | 09/15/2018 | | | | FROZEN PLASMA | e | 2:26 PM | | | | | | PDT | | | + +--------+ + + + | X-RAY FEMUR 2 VIEWS | Routin | 09/15/2018 | | Results for this | | RIGHT | e | 11:33 AM | | procedure are in the | | | | PDT | | results section. | + +--------+ + + + | X-RAY CHEST 1 VIEW | Routin | 09/15/2018 | | Results for this | | | e | 11:32 AM | | procedure are in the | | | | PDT | | results section. | + +--------+ + + + | TRANSFUSE FRESH | Routin | 09/15/2018 | | | | FROZEN PLASMA | e | 10:21 AM | | | | | | PDT | | | + +--------+ + + + | INR | Routin | 09/15/2018 | | Results for this | | | e | 9:49 AM | | procedure are in the | | | | PDT | | results section. | + +--------+ + + + | COMPLETE METABOLIC | Routin | 09/15/2018 | | Results for this | | SET | e | 9:49 AM | | procedure are in the | | (NA,K,CL,CO2,BUN,CRE | | PDT | | results section. | | AT,GLUC,CA,AST,ALT,B | | | | | | JAYCEE TOTAL,ALK | | | | | | PHOS,ALB,PROT TOTAL) | | | | | + +--------+ + + + | CAPILLARY BLOOD | Routin | 09/15/2018 | Closed bicondylar | Results for this | | GLUCOSE (NO CHG), | e | 6:26 AM | fracture of right | procedure are in the | | POC | | PDT | femur, initial | results section. | | | | | encounter (HCC) | | + +--------+ + + + | PRODUCT - FRESH | Routin | 09/15/2018 | | Results for this | | FROZEN PLASMA | e | 3:08 AM | | procedure are in the | | | | PDT | | results section. | + +--------+ + + + | PRODUCT - FRESH | Routin | 09/15/2018 | | Results for this | | FROZEN PLASMA | e | 3:08 AM | | procedure are in the | | | | PDT | | results section. | + +--------+ + + + | BLOOD GASES, | Routin | 09/15/2018 | | Results for this | | ARTERIAL - LAB | e | 2:22 AM | | procedure are in the | | | | PDT | | results section. | + +--------+ + + + | CBC (HEMOGRAM) ONLY | Routin | 09/15/2018 | | Results for this | | | e | 1:27 AM | | procedure are in the | | | | PDT | | results section. | + +--------+ + + + | COMPLETE METABOLIC | Routin | 09/15/2018 | | Results for this | | SET | e | 1:27 AM | | procedure are in the | | (NA,K,CL,CO2,BUN,CRE | | PDT | | results section. | | AT,GLUC,CA,AST,ALT,B | | | | | | JAYCEE TOTAL,ALK | | | | | | PHOS,ALB,PROT TOTAL) | | | | | + +--------+ + + + | CBC ONLY | Routin | 09/15/2018 | | Results for this | | | e | 1:27 AM | | procedure are in the | | | | PDT | | results section. | + +--------+ + + + | COAGULOPATHY PANEL | Routin | 09/15/2018 | | Results for this | | (INR,APTT,FIBRINOGEN | e | 1:27 AM | | procedure are in the | | ) | | PDT | | results section. | + +--------+ + + + | ANTIBODY SCREEN | Routin | 09/15/2018 | | Results for this | | | e | 1:27 AM | | procedure are in the | | | | PDT | | results section. | + +--------+ + + + | TYPE AND SCREEN | Routin | 09/15/2018 | | Results for this | | | e | 1:27 AM | | procedure are in the | | | | PDT | | results section. | + +--------+ + + + | ABO & RH TYPE | Routin | 09/15/2018 | | Results for this | | | e | 1:27 AM | | procedure are in the | | | | PDT | | results section. | + +--------+ + + + | BLOOD GASES, | Routin | 09/15/2018 | | Results for this | | ARTERIAL - LAB | e | 12:54 AM | | procedure are in the | | | | PDT | | results section. | + +--------+ + + + | CAPILLARY BLOOD | Routin | 09/14/2018 | | Results for this | | GLUCOSE (NO CHG), | e | 11:54 PM | | procedure are in the | | POC | | PDT | | results section. | + +--------+ + + + documented in this encounter Results CAPILLARY BLOOD GLUCOSE (NO CHG), POC (09/21/2018 10:45 AM PDT) + +---------+ + + + | Component | Value | Ref Range | Performed | Pathologist | | | | | At | Signature | + +---------+ + + + | BLOOD | 179 (H) | 60 - 99 mg/dL | [facility] | | | GLUCOSE, | | | [facility] | | | POC | | | [facility] | | | | | | OF CARE | | | | | | TESTS | | + +---------+ + + + + + | Specimen | + + | | + + + + + + + | Performing | Address | City/State/Zipcode | Phone Number | | Organization | | | | + + + + + | [facility] | [address] | [place], [place] | | | [facility] | [address] | [address] | | | TESTS | | | | + + + + + CBC (HEMOGRAM) ONLY (09/21/2018 6:54 AM PDT) + + + + + + | Component | Value | Ref Range | Performed | Pathologist | | | | | At | Signature | + + + + + + | WHITE CELL | 9.38 | 3.50 - 10.80 | [facility] | | | COUNT | | K/cu mm | LABORATORY | | | | | | SERVICES, | | | | | | CORE | | + + + + + + | RED CELL | 3.49 (L) | 4.00 - 5.20 | [facility] | | | COUNT | | M/cu mm | LABORATORY | | | | | | SERVICES, | | | | | | CORE | | + + + + + + | HEMOGLOBIN | 10.8 (L) | 12.0 - 16.0 | [facility] | | | | | g/dL | LABORATORY | | | | | | SERVICES, | | | | | | CORE | | + + + + + + | HEMATOCRIT | 34.4 (L) | 36.0 - 46.0 % | [facility] | | | | | | LABORATORY | | | | | | SERVICES, | | | | | | CORE | | + + + + + + | MCV | 98.6 | 80.0 - 100.0 fL | [facility] | | | | | | LABORATORY | | | | | | SERVICES, | | | | | | CORE | | + + + + + + | MCHC | 31.4 (L) | 32.0 - 36.0 | [facility] | | | | | g/dL | LABORATORY | | | | | | SERVICES, | | | | | | CORE | | + + + + + + | RDW SD | 59.0 (H) | 35.1 - 46.3 fL | [facility] | | | | | | LABORATORY | | | | | | SERVICES, | | | | | | CORE | | + + + + + + | PLATELET | 305 | 150 - 400 K/cu | [facility] [...] + + | Blood - Blood | | (substance) | + + + + + + + | Performing | Address | City/State/Zipcode | Phone Number | | Organization | | | | + + + + + | [facility] | [address] | [place] [address] | | | SERVICES, CORE | [address] | | | + + + + + INR (09/21/2018 6:54 AM PDT) + + + + + + | Component | Value | Ref Range | Performed | Pathologist | | | | | At | Signature | + + + + + + | INR | 1.25 (H) | 0.90 - 1.20 INR | [facility] | | | | | | [facility] | | | | | | SERVICES, | | | | | | CORE | | + + + + + + + + | Specimen | + + | Blood - Blood | | (substance) | + + + + + | Narrative | Performed At | + + + | INR Therapeutic ranges for full anticoagulation: INR for | [facility] | | Venous Thromboembolism (2.0 - 3.0) INR INR for | LABORATORY | | most patients with mech. valves (2.5 - 3.5) INR | [facility], [facility] | + + + + + + + + | Performing | Address | City/State/Zipcode | Phone Number | | Organization | | | | + + + + + | [facility] | [address] | [place] [address] | | | SERVICES, MIR | [address] | | | + + + + + COMPLETE METABOLIC SET (NA,K,CL,CO2,BUN,CREAT,GLUC,CA,AST,ALT,BILI TOTAL,ALK PHOS,ALB,PROT TOTAL) (09/21/2018 6:54 AM PDT) + + + + + + | Component | Value | Ref Range | Performed | Pathologist | | | | | At | Signature | + + + + + + | GLUCOSE, | 138 (H) | 70 - 99 mg/dL | [facility] | | | PLASMA | | | LABORATORY | | | (LAB) | | | SERVICES, | | | | | | CORE | | + + + + + + | BUN, PLASMA | 19 | 6 - 20 mg/dL | [facility] | | | (LAB) | | | LABORATORY | | | | | | SERVICES, | | | | | | CORE | | + + + + + + | CREATININE | 0.66 | 0.60 - 1.10 | [facility] | | | PLASMA | | mg/dL | LABORATORY | | | (LAB) | | | SERVICES, | | | | | | CORE | | + + + + + + | EGFR | >60 | >60 mL/min | [facility] | | | - | | | LABORATORY | | | MALTESE | | | SERVICES, | | | | | | CORE | | + + + + + + | EGFR NON | >60 | >60 mL/min | [facility] | | | -ALIZA | | | LABORATORY | | | RICAN | | | SERVICES, | | | | | | CORE | | + + + + + + | SODIUM, | 136 | 136 - 145 | [facility] | | | PLASMA | | mmol/L | LABORATORY | | | (LAB) | | | SERVICES, | | | | | | CORE | | + + + + + + | POTASSIUM, | 4.2 | 3.4 - 5.0 | [facility] | [...] + + + | TOTAL CO2, | 33 (H) | 21 - 32 mmol/L | [facility] | | | PLASMA | | | LABORATORY | | | (LAB) | | | SERVICES, | | | | | | CORE | | + + + + + + | CALCIUM, | 9.6 | 8.6 - 10.2 | [facility] | | | PLASMA | | mg/dL | LABORATORY | | | (LAB) | | | SERVICES, | | | | | | CORE | | + + + + + + | CALCIUM(ALB | 10.7 (H) | 8.6 - 10.2 | [facility] | | | CORRECTED) | | mg/dL | LABORATORY | | | | | | SERVICES, | | | | | | CORE | | + + + + + + | BILIRUBIN | 0.6 | 0.3 - 1.2 mg/dL | [facility] | | | TOTAL | | | LABORATORY | | | | | | SERVICES, | | | | | | CORE | | + + + + + + | TOTAL | 6.2 (L) | 6.4 - 8.2 g/dL | [facility] | | | PROTEIN, | | | LABORATORY | | | PLASMA | | | SERVICES, | | | (LAB) | | | CORE | | + + + + + + | ALBUMIN, | 2.6 (L) | 3.5 - 4.7 g/dL | [facility] | | | PLASMA | | | LABORATORY | | | (LAB) | | | SERVICES, | | | | | | CORE | | + + + + + + | ALK PHOS | 171 (H) | 42 - 98 U/L | [facility] | | | | | | LABORATORY | | | | | | SERVICES, | | | | | | CORE | | + + + + + + | AST(SGOT) | 20 | <=41 U/L | [facility] | | | | | | LABORATORY | | | | | | SERVICES, | | | | | | CORE | | + + + + + + | ALT (SGPT) | 42 | <=60 U/L | [facility] | | | | | | LABORATORY | | | | | | SERVICES, | | | | | | CORE | | + + + + + + | ANION GAP | 3 (L) | 4 - 11 mmol/L | [facility] | | | | | | LABORATORY | | | | | | SERVICES, | | | | | | CORE | | + + + + + + | ANION | 6 | 4 - 11 mmol/L | [facility] [...] + + | Blood - Blood | | (substance) | + + + + + | Narrative | Performed At | + + + | GFR is estimated using the MDRD equation recommended by the | [facility] | | National Kidney Disease Education Program. Estimated GFR | LABORATORY | | Interpretive Information: <60 mL/min/1.73 sq m | SERVICES, CORE | | Chronic Kidney Disease <15 mL/min/1.73 sq m | | | Kidney Failure Estimated GFR greater than 60 mL/min/1.73 sq m is of | | | limited clinical value. The MDRD equation is not valid in the | | | following situations: - Patients under 18 years of age - Severe | | | malnutrition or obesity - Vegetarian diet - Rapidly changing kidney | | | function - Amputees, paraplegics, or other muscle-wasting diseses | | + + + + + + + + | Performing | Address | City/State/Zipcode | Phone Number | | Organization | | | | + + + + + | [facility] | [address] | [place] [address] | | | MIR CHAPIN | [address] | | | + + + + + CAPILLARY BLOOD GLUCOSE (NO CHG), POC (09/21/2018 12:21 AM PDT) + +---------+ + + + | Component | Value | Ref Range | Performed | Pathologist | | | | | At | Signature | + +---------+ + + + | BLOOD | 129 (H) | 60 - 99 mg/dL | [facility] - | | | GLUCOSE, | | | [facility] | | | POC | | | [facility] | | | | | | OF CARE | | | | | | TESTS | | + +---------+ + + + + + | Specimen | + + | | + + + + + + + | Performing | Address | City/State/Zipcode | Phone Number | | Organization | | | | + + + + + | [facility] | [address] | [place], [place] | | | [facility] | [address] | [address] | | | TESTS | | | | + + + + + CAPILLARY BLOOD GLUCOSE (NO CHG), POC (09/20/2018 8:58 PM PDT) + +---------+ + + + | Component | Value | Ref Range | Performed | Pathologist | | | | | At | Signature | + +---------+ + + + | BLOOD | 119 (H) | 60 - 99 mg/dL | [facility] - | | | GLUCOSE, | | | [facility] | | | POC | | | [facility] | | | | | | OF CARE | | | | | | TESTS | | + +---------+ + + + + + | Specimen | + + | | + + + + + + + | Performing | Address | City/State/Zipcode | Phone Number | | Organization | | | | + + + + + | [facility] | [address] | [place], [place] | | | [facility] | [facility] | [address] | | | TESTS | | | | + + + + + URINE, MICROSCOPIC EXAM (09/20/2018 4:39 PM PDT) + + + + + + | Component | Value | Ref Range | Performed | Pathologist | | | | | At | Signature | + + + + + + | RED CELLS | 3 | 0 - 3 /hpf | [facility] | | | | | | LABORATORY | | | | | | SERVICES, | | | | | | CORE | | + + + + + + | WHITE CELLS | 116 (H) | 0 - 5 /hpf | [facility] | | | | | | LABORATORY | | | | | | SERVICES, | | | | | | CORE | | + + + + + + | WBC CLUMPS | Present | | [facility] | | | | | | LABORATORY | | | | | | SERVICES, | | | | | | CORE | | + + + + + + | BACTERIA | Moderate (A) | None /hpf | [facility] | | | | | | LABORATORY | | | | | | SERVICES, | | | | | | CORE | | + + + + + + | YEAST (LAB) | None | None /hpf | [facility] | | | | | | LABORATORY | | | | | | SERVICES, | | | | | | CORE | | + + + + + + | SQUAMOUS | Few | None, Few /hpf | [facility] | | | EPITHELIAL | | | LABORATORY | | | | | | SERVICES, | | | | | | CORE | | + + + + + + | MUCOUS | None | None, Few /hpf | [facility] | | | | | | LABORATORY | | | | | | SERVICES, | | | | | | CORE | | + + + + + + | NON-SQUAMOU | Few (A) | None /hpf | [facility] | | | S EPITH | | | LABORATORY | | | | | | SERVICES, | | | | | | CORE | | + + + + + + | HYALINE | 0 | 0 - 2 /lpf | [facility] | | | CASTS | | | LABORATORY | | | | | | SERVICES, | | | | | | CORE | | + + + + + + | GRANULAR | 0 | 0 - 2 /lpf | [facility] | | | CASTS | | | LABORATORY | | | | | | SERVICES, | | | | | | CORE | | + + + + + + | CELLULAR | 0 | <=0 /lpf | [facility] | | | CASTS | | | LABORATORY | | | | | | SERVICES, | | | | | | CORE | | + + + + + + | TRIPLE P04 | None | None, Few /hpf | [facility] | | | CRYSTALS | | | LABORATORY | | | | | | SERVICES, | | | | | | CORE | | + + + + + + | CALCIUM | None | None, Few /hpf | [facility] | | | OXALATE | | | LABORATORY | | | [place] | | | SERVICES, | | | | | | CORE | | + + + + + + | URIC ACID | None | None, Few /hpf | [facility] | | | CRYSTALS | | | LABORATORY | | | | | | SERVICES, | | | | | | CORE | | + + + + + + | AMORPHOUS | None | None, Few /hpf | [facility] | | | CRYSTALS | | | LABORATORY | | | | | | SERVICES, | | | | | | CORE | | + + + + + + + + | Specimen | + + | Urine - Urine | | (substance) | + + + + + + + | Performing | Address | City/State/Zipcode | Phone Number | | Organization | | | | + + + + + | [facility] | [address] | [place] [address] | | | SERVICES, CORE | [address] | | | + + + + + CAPILLARY BLOOD GLUCOSE (NO CHG), POC (09/20/2018 2:27 PM PDT) + +---------+ + + + | Component | Value | Ref Range | Performed | Pathologist | | | | | At | Signature | + +---------+ + + + | BLOOD | 177 (H) | 60 - 99 mg/dL | [facility] - | | | GLUCOSE, | | | [facility] | | | POC | | | [facility] | | | | | | OF CARE | | | | | | TESTS | | + +---------+ + + + + + | Specimen | + + | | + + + + + + + | Performing | Address | City/State/Zipcode | Phone Number | | Organization | | | | + + + + + | [facility] | [address] | [place], [place] | | | [facility] | [address] | [address] | | | TESTS | | | | + + + + + CAPILLARY BLOOD GLUCOSE (NO CHG), POC (09/20/2018 10:13 AM PDT) + +---------+ + + + | Component | Value | Ref Range | Performed | Pathologist | | | | | At | Signature | + +---------+ + + + | BLOOD | 161 (H) | 60 - 99 mg/dL | [facility] - | | | GLUCOSE, | | | [facility] | | | POC | | | [facility] | | | | | | OF CARE | | | | | | TESTS | | + +---------+ + + + + + | Specimen | + + | | + + + + + + + | Performing | Address | City/State/Zipcode | Phone Number | | Organization | | | | + + + + + | [facility] | [address] | [place], [place] | | | [facility] | [address] | [address] | | | TESTS | | | | + + + + + CBC (HEMOGRAM) ONLY (09/20/2018 6:09 AM PDT) + + + + + + | Component | Value | Ref Range | Performed | Pathologist | | | | | At | Signature | + + + + + + | WHITE CELL | 10.60 | 3.50 - 10.80 | [facility] | | | COUNT | | K/cu mm | LABORATORY | | | | | | SERVICES, | | | | | | CORE | | + + + + + + | RED CELL | 3.48 (L) | 4.00 - 5.20 | [facility] | | | COUNT | | M/cu mm | LABORATORY | | | | | | SERVICES, | | | | | | CORE | | + + + + + + | HEMOGLOBIN | 10.8 (L) | 12.0 - 16.0 | [facility] | | | | | g/dL | LABORATORY | | | | | | SERVICES, | | | | | | CORE | | + + + + + + | HEMATOCRIT | 34.2 (L) | 36.0 - 46.0 % | [facility] | | | | | | LABORATORY | | | | | | SERVICES, | | | | | | CORE | | + + + + + + | MCV | 98.3 | 80.0 - 100.0 fL | [facility] | | | | | | LABORATORY | | | | | | SERVICES, | | | | | | CORE | | + + + + + + | MCHC | 31.6 (L) | 32.0 - 36.0 | [facility] | | | | | g/dL | LABORATORY | | | | | | SERVICES, | | | | | | CORE | | + + + + + + | RDW SD | 59.3 (H) | 35.1 - 46.3 fL | [facility] | | | | | | LABORATORY | | | | | | SERVICES, | | | | | | CORE | | + + + + + + | PLATELET | 271 | 150 - 400 K/cu | [facility] | | | COUNT | | mm | LABORATORY | | | | | | SERVICES, | | | | | | CORE | | + + + + + + | MPV | 10.3 | 9.7 - 12.3 fL | [facility] | | | | | | LABORATORY | | | | | | SERVICES, | | | | | | CORE | | + + + + + + | NRBC% | 0.3 | 0.0 - 0.3 % | [facility] | | | | | | LABORATORY | | | | | | SERVICES, | | | | | | CORE | | + + + + + + | NRBC# | 0.03 (H) | 0.00 - 0.02 | [facility] | | | | | K/cu mm | LABORATORY | | | | | | SERVICES, | | | | | | CORE | | + + + + + + + + | Specimen | + + | Blood - Blood | | (substance) | + + + + + + + | Performing | Address | City/State/Zipcode | Phone Number | | Organization | | | | + + + + + | [facility] | [address] | [place] [address] | | | SERVICES, MIR | [address] | | | + + + + + INR (09/20/2018 6:09 AM PDT) + +-------+ + + + | Component | Value | Ref Range | Performed | Pathologist | | | | | At | Signature | + +-------+ + + + | INR | 1.16 | 0.90 - 1.20 INR | [facility] | | | | | | LABORATORY | | | | | | SERVICES, | | | | | | CORE | | + +-------+ + + + + + | Specimen | + + | Blood - Blood | | (substance) | + + + + + | Narrative | Performed At | + + + | INR Therapeutic ranges for full anticoagulation: INR for | [facility] | | Venous Thromboembolism (2.0 - 3.0) INR INR for | LABORATORY | | most patients with mech. valves (2.5 - 3.5) INR | SERVICES, CORE | + + + + + + + + | Performing | Address | City/State/Zipcode | Phone Number | | Organization | | | | + + + + + | [facility] | [address] | [place] [address] | | | SERVICES, CORE | [address] | | | + + + + + COMPLETE METABOLIC SET (NA,K,CL,CO2,BUN,CREAT,GLUC,CA,AST,ALT,BILI TOTAL,ALK PHOS,ALB,PROT TOTAL) (09/20/2018 6:09 AM PDT) + + + + + + | Component | Value | Ref Range | Performed | Pathologist | | | | | At | Signature | + + + + + + | GLUCOSE, | 141 (H) | 70 - 99 mg/dL | [facility] | | | PLASMA | | | LABORATORY | | | (LAB) | | | SERVICES, | | | | | | CORE | | + + + + + + | BUN, PLASMA | 17 | 6 - 20 mg/dL | [facility] | | | (LAB) | | | LABORATORY | | | | | | SERVICES, | | | | | | CORE | | + + + + + + | CREATININE | 0.61 | 0.60 - 1.10 | [facility] | | | PLASMA | | mg/dL | LABORATORY | | | (LAB) | | | SERVICES, | | | | | | CORE | | + + + + + + | EGFR | >60 | >60 mL/min | [facility] | | | - | | | LABORATORY | | | MALTESE | | | SERVICES, | | | | | | CORE | | + + + + + + | EGFR NON | >60 | >60 mL/min | [facility] | | | -ALIZA | | | LABORATORY | | | RICAN | | | SERVICES, | | | | | | CORE | | + + + + + + | SODIUM, | 136 | 136 - 145 | [facility] | | | PLASMA | | mmol/L | LABORATORY | | | (LAB) | | | SERVICES, | | | | | | CORE | | + + + + + + | POTASSIUM, | 4.5 | 3.4 - 5.0 | [facility] | | | PLASMA | | mmol/L | LABORATORY | | | (LAB) | | | SERVICES, | | | | | | CORE | | + + + + + + | CHLORIDE, | 99 | 97 - 108 mmol/L | [facility] | | | PLASMA | | | LABORATORY | | | (LAB) | | | SERVICES, | | | | | | CORE | | + + + + + + | TOTAL CO2, | 35 (H) | 21 - 32 mmol/L | [facility] | | | PLASMA | | | LABORATORY | | | (LAB) | | | SERVICES, | | | | | | CORE | | + + + + + + | CALCIUM, | 9.4 | 8.6 - 10.2 | [facility] | | | PLASMA | | mg/dL | LABORATORY | | | (LAB) | | | SERVICES, | | | | | | CORE | | + + + + + + | CALCIUM(ALB | 10.6 (H) | 8.6 - 10.2 | [facility] | | | CORRECTED) | | mg/dL | LABORATORY | | | | | | SERVICES, | | | | | | CORE | | + + + + + + | BILIRUBIN | 0.6 | 0.3 - 1.2 mg/dL | [facility] | | | TOTAL | | | LABORATORY | | | | | | SERVICES, | | | | | | CORE | | + + + + + + | TOTAL | 6.3 (L) | 6.4 - 8.2 g/dL | [facility] | | | PROTEIN, | | | LABORATORY | | | PLASMA | | | SERVICES, | | | (LAB) | | | CORE | | + + + + + + | ALBUMIN, | 2.5 (L) | 3.5 - 4.7 g/dL | [facility] | | | PLASMA | | | LABORATORY | | | (LAB) | | | SERVICES, | | | | | | CORE | | + + + + + + | ALK PHOS | 187 (H) | 42 - 98 U/L | [facility] | | | | | | LABORATORY | | | | | | SERVICES, | | | | | | CORE | | + + + + + + | AST(SGOT) | 29 | <=41 U/L | [facility] | | | | | | LABORATORY | | | | | | SERVICES, | | | | | | CORE | | + + + + + + | ALT (SGPT) | 53 | <=60 U/L | [facility] | | | | | | LABORATORY | | | | | | SERVICES, | | | | | | CORE | | + + + + + + | ANION GAP | 2 (L) | 4 - 11 mmol/L | [facility] | | | | | | LABORATORY | | | | | | SERVICES, | | | | | | CORE | | + + + + + + | ANION | 5 | 4 - 11 mmol/L | [facility] [...] + + | Blood - Blood | | (substance) | + + + + + | Narrative | Performed At | + + + | GFR is estimated using the MDRD equation recommended by the | [facility] | | National Kidney Disease Education Program. Estimated GFR | LABORATORY | | Interpretive Information: <60 mL/min/1.73 sq m | [facility] C[facility] | | Chronic Kidney Disease <15 mL/min/1.73 sq m | | | Kidney Failure Estimated GFR greater than 60 mL/min/1.73 sq m is of | | | limited clinical value. The MDRD equation is not valid in the | | | following situations: - Patients under 18 years of age - Severe | | | malnutrition or obesity - Vegetarian diet - Rapidly changing kidney | | | function - Amputees, paraplegics, or other muscle-wasting diseses | | + + + + + + + + | Performing | Address | City/State/Zipcode | Phone Number | | Organization | | | | + + + + + | [facility] | [address] [address] | [place] [address] | | | MIR CHAPIN | [address] | | | + + + + + CAPILLARY BLOOD GLUCOSE (NO CHG), POC (09/20/2018 12:02 AM PDT) + +---------+ + + + | Component | Value | Ref Range | Performed | Pathologist | | | | | At | Signature | + +---------+ + + + | BLOOD | 150 (H) | 60 - 99 mg/dL | [facility] - | | | GLUCOSE, | | | [facility] | | | POC | | | [facility] | | | | | | OF CARE | | | | | | TESTS | | + +---------+ + + + + + | Specimen | + + | | + + + + + + + | Performing | Address | City/State/Zipcode | Phone Number | | Organization | | | | + + + + + | [facility] | [address] | [place], [place] | | | [facility] | [address] | [address] | | | TESTS | | | | + + + + + CAPILLARY BLOOD GLUCOSE (NO CHG), POC (09/19/2018 8:37 PM PDT) + +---------+ + + + | Component | Value | Ref Range | Performed | Pathologist | | | | | At | Signature | + +---------+ + + + | BLOOD | 147 (H) | 60 - 99 mg/dL | [facility] - | | | GLUCOSE, | | | [facility] | | | POC | | | [facility] | | | | | | OF CARE | | | | | | TESTS | | + +---------+ + + + + + | Specimen | + + | | + + + + + + + | Performing | Address | City/State/Zipcode | Phone Number | | Organization | | | | + + + + + | [facility] | [address] | [place], [place] | | | [facility] | [address] | [address] | | | TESTS | | | | + + + + + CAPILLARY BLOOD GLUCOSE (NO CHG), POC (09/19/2018 2:41 PM PDT) + +---------+ + + + | Component | Value | Ref Range | Performed | Pathologist | | | | | At | Signature | + +---------+ + + + | BLOOD | 174 (H) | 60 - 99 mg/dL | [facility] - | | | GLUCOSE, | | | [facility] | | | POC | | | [facility] | | | | | | OF CARE | | | | | | TESTS | | + +---------+ + + + + + | Specimen | + + | | + + + + + + + | Performing | Address | City/State/Zipcode | Phone Number | | Organization | | | | + + + + + | [facility] | [address] | [place], [place] | | | [facility] | [address] | [address] | | | TESTS | | | | + + + + + CAPILLARY BLOOD GLUCOSE (NO CHG), POC (09/19/2018 10:08 AM PDT) + +---------+ + + + | Component | Value | Ref Range | Performed | Pathologist | | | | | At | Signature | + +---------+ + + + | BLOOD | 159 (H) | 60 - 99 mg/dL | [facility] - | | | GLUCOSE, | | | [facility] | | | POC | | | [facility] | | | | | | OF CARE | | | | | | TESTS | | + +---------+ + + + + + | Specimen | + + | | + + + + + + + | Performing | Address | City/State/Zipcode | Phone Number | | Organization | | | | + + + + + | [facility] | [address] | [place], [place] | | | [facility] | [address] | [address] | | | TESTS | | | | + + + + + CBC (HEMOGRAM) ONLY (09/19/2018 6:51 AM PDT) + + + + + + | Component | Value | Ref Range | Performed | Pathologist | | | | | At | Signature | + + + + + + | WHITE CELL | 11.83 (H) | 3.50 - 10.80 | [facility] | | | COUNT | | K/cu mm | LABORATORY | | | | | | SERVICES, | | | | | | CORE | | + + + + + + | RED CELL | 3.68 (L) | 4.00 - 5.20 | [facility] | | | COUNT | | M/cu mm | LABORATORY | | | | | | SERVICES, | | | | | | CORE | | + + + + + + | HEMOGLOBIN | 11.5 (L) | 12.0 - 16.0 | [facility] | | | | | g/dL | LABORATORY | | | | | | SERVICES, | | | | | | CORE | | + + + + + + | HEMATOCRIT | 35.9 (L) | 36.0 - 46.0 % | [facility] | | | | | | LABORATORY | | | | | | SERVICES, | | | | | | CORE | | + + + + + + | MCV | 97.6 | 80.0 - 100.0 fL | [facility] | | | | | | LABORATORY | | | | | | SERVICES, | | | | | | CORE | | + + + + + + | MCHC | 32.0 | 32.0 - 36.0 | [facility] | | | | | g/dL | LABORATORY | | | | | | SERVICES, | | | | | | CORE | | + + + + + + | RDW SD | 58.4 (H) | 35.1 - 46.3 fL | [facility] | | | | | | LABORATORY | | | | | | SERVICES, | | | | | | CORE | | + + + + + + | PLATELET | 275 | 150 - 400 K/cu | [facility] | | | COUNT | | mm | LABORATORY | | | | | | SERVICES, | | | | | | CORE | | + + + + + + | MPV | 10.5 | 9.7 - 12.3 fL | [facility] | | | | | | LABORATORY | | | | | | SERVICES, | | | | | | CORE | | + + + + + + | NRBC% | 0.2 | 0.0 - 0.3 % | [facility] | | | | | | LABORATORY | | | | | | SERVICES, | | | | | | CORE | | + + + + + + | NRBC# | 0.02 | 0.00 - 0.02 | [facility] | | | | | K/cu mm | LABORATORY | | | | | | SERVICES, | | | | | | CORE | | + + + + + + + + | Specimen | + + | Blood - Blood | | (substance) | + + + + + + + | Performing | Address | City/State/Zipcode | Phone Number | | Organization | | | | + + + + + | [facility] | [address] | [place] [address] | | | SERVICES, CORE | [address] | | | + + + + + INR (09/19/2018 6:51 AM PDT) + +-------+ + + + | Component | Value | Ref Range | Performed | Pathologist | | | | | At | Signature | + +-------+ + + + | INR | 1.08 | 0.90 - 1.20 INR | [facility] | | | | | | LABORATORY | | | | | | SERVICES, | | | | | | CORE | | + +-------+ + + + + + | Specimen | + + | Blood - Blood | | (substance) | + + + + + | Narrative | Performed At | + + + | INR Therapeutic ranges for full anticoagulation: INR for | [facility] | | Venous Thromboembolism (2.0 - 3.0) INR INR for | LABORATORY | | most patients with mech. valves (2.5 - 3.5) INR | [facility], MIR | + + + + + + + + | Performing | Address | City/State/Zipcode | Phone Number | | Organization | | | | + + + + + | [facility] | [address] | [place] [address] | | | MIR CHAPIN | [address] | | | + + + + + COMPLETE METABOLIC SET (NA,K,CL,CO2,BUN,CREAT,GLUC,CA,AST,ALT,BILI TOTAL,ALK PHOS,ALB,PROT TOTAL) (09/19/2018 6:51 AM PDT) + + + + + + | Component | Value | Ref Range | Performed | Pathologist | | | | | At | Signature | + + + + + + | GLUCOSE, | 150 (H) | 70 - 99 mg/dL | [facility] | | | PLASMA | | | LABORATORY | | | (LAB) | | | SERVICES, | | | | | | CORE | | + + + + + + | BUN, PLASMA | 17 | 6 - 20 mg/dL | [facility] | | | (LAB) | | | LABORATORY | | | | | | SERVICES, | | | | | | CORE | | + + + + + + | CREATININE | 0.55 (L) | 0.60 - 1.10 | [facility] | | | PLASMA | | mg/dL | LABORATORY | | | (LAB) | | | SERVICES, | | | | | | CORE | | + + + + + + | EGFR | >60 | >60 mL/min | [facility] | | | - | | | LABORATORY | | | MALTESE | | | SERVICES, | | | | | | CORE | | + + + + + + | EGFR NON | >60 | >60 mL/min | [facility] | | | -ALIZA | | | LABORATORY | | | RICAN | | | SERVICES, | | | | | | CORE | | + + + + + + | SODIUM, | 136 | 136 - 145 | [facility] | [...] + + + + | CHLORIDE, | 99 | 97 - 108 mmol/L | [facility] | | | PLASMA | | | LABORATORY | | | (LAB) | | | SERVICES, | | | | | | CORE | | + + + + + + | TOTAL CO2, | 33 (H) | 21 - 32 mmol/L | [facility] | | | PLASMA | | | LABORATORY | | | (LAB) | | | SERVICES, | | | | | | CORE | | + + + + + + | CALCIUM, | 9.4 | 8.6 - 10.2 | [facility] | | | PLASMA | | mg/dL | LABORATORY | | | (LAB) | | | SERVICES, | | | | | | CORE | | + + + + + + | CALCIUM(ALB | 10.4 (H) | 8.6 - 10.2 | [facility] | | | CORRECTED) | | mg/dL | LABORATORY | | | | | | SERVICES, | | | | | | CORE | | + + + + + + | BILIRUBIN | 0.7 | 0.3 - 1.2 mg/dL | [facility] | | | TOTAL | | | LABORATORY | | | | | | SERVICES, | | | | | | CORE | | + + + + + + | TOTAL | 6.7 | 6.4 - 8.2 g/dL | [facility] | | | PROTEIN, | | | LABORATORY | | | PLASMA | | | SERVICES, | | | (LAB) | | | CORE | | + + + + + + | ALBUMIN, | 2.7 (L) | 3.5 - 4.7 g/dL | [facility] | | | PLASMA | | | LABORATORY | | | (LAB) | | | SERVICES, | | | | | | CORE | | + + + + + + | ALK PHOS | 174 (H) | 42 - 98 U/L | [facility] | | | | | | LABORATORY | | | | | | SERVICES, | | | | | | CORE | | + + + + + + | AST(SGOT) | 21 | <=41 U/L | [facility] | | | | | | LABORATORY | | | | | | SERVICES, | | | | | | CORE | | + + + + + + | ALT (SGPT) | 64 (H) | <=60 U/L | [facility] | | | | | | LABORATORY | | | | | | SERVICES, | | | | | | CORE | | + + + + + + | ANION GAP | 4 | 4 - 11 mmol/L | [facility] | | | | | | LABORATORY | | | | | | SERVICES, | | | | | | CORE | | + + + + + + | ANION | 7 | 4 - 11 mmol/L | [facility] [...] + + | Blood - Blood | | (substance) | + + + + + | [...] | | Kidney Failure Estimated GFR greater than 60 mL/min/1.73 sq m is of | | | limited clinical value. The MDRD equation is not valid in the | | | following situations: - Patients under 18 years of age - Severe | | | malnutrition or obesity - Vegetarian diet - Rapidly changing kidney | | | function - Amputees, paraplegics, or other muscle-wasting diseses | | + + + + + + + + | Performing | Address | City/State/Zipcode | Phone Number | | Organization | | | | + + + + + | [facility] | [address] | [place] [address] | | | SERVICES, MIR | [address] | | | + + + + + CAPILLARY BLOOD GLUCOSE (NO CHG), POC (09/18/2018 11:09 PM PDT) + +---------+ + + + | Component | Value | Ref Range | Performed | Pathologist | | | | | At | Signature | + +---------+ + + + | BLOOD | 202 (H) | 60 - 99 mg/dL | [facility] - | | | GLUCOSE, | | | [place] | | | POC | | | [facility] | | | | | | OF CARE | | | | | | TESTS | | + +---------+ + + + + + | Specimen | + + | | + + + + + + + | Performing | Address | City/State/Zipcode | Phone Number | | Organization | | | | + + + + + | [facility] | [address] | [place], [place] | | | [facility] | [facility] | [id number] | | | TESTS | | | | + + + + + CAPILLARY BLOOD GLUCOSE (NO CHG), POC (09/18/2018 7:56 PM PDT) + +---------+ + + + | Component | Value | Ref Range | Performed | Pathologist | | | | | At | Signature | + +---------+ + + + | BLOOD | 157 (H) | 60 - 99 mg/dL | [facility] - | | | GLUCOSE, | | | [place] | | | POC | | | [place] | | | | | | OF CARE | | | | | | TESTS | | + +---------+ + + + + + | Specimen | + + | | + + + + + + + | Performing | Address | City/State/Zipcode | Phone Number | | Organization | | | | + + + + + | [facility] | [address] | [place], [place] | | | [facility] | [address] | [address] | | | TESTS | | | | + + + + + CAPILLARY BLOOD GLUCOSE (NO CHG), POC (09/18/2018 2:51 PM PDT) + +---------+ + + + | Component | Value | Ref Range | Performed | Pathologist | | | | | At | Signature | + +---------+ + + + | BLOOD | 159 (H) | 60 - 99 mg/dL | [facility] | | | GLUCOSE, | | | [facility] | | | POC | | | [facility] | | | | | | OF CARE | | | | | | TESTS | | + +---------+ + + + + + | Specimen | + + | | + + + + + + + | Performing | Address | City/State/Zipcode | Phone Number | | Organization | | | | + + + + + | [facility] | [address] | [place], [place] | | | [facility] | [facility] | [address] | | | TESTS | | | | + + + + + CAPILLARY BLOOD GLUCOSE (NO CHG), POC (09/18/2018 9:59 AM PDT) + +---------+ + + + | Component | Value | Ref Range | Performed | Pathologist | | | | | At | Signature | + +---------+ + + + | BLOOD | 128 (H) | 60 - 99 mg/dL | [facility] - | | | GLUCOSE, | | | [place] | | | POC | | | [facility] | | | | | | OF CARE | | | | | | TESTS | | + +---------+ + + + + + | Specimen | + + | | + + + + + + + | Performing | Address | City/State/Zipcode | Phone Number | | Organization | | | | + + + + + | [facility] | [address] | [place], [place] | | | [facility] | [facility] | [address] | | | TESTS | | | | + + + + + CBC (HEMOGRAM) ONLY (09/18/2018 6:11 AM PDT) + + + + + + | Component | Value | Ref Range | Performed | Pathologist | | | | | At | Signature | + + + + + + | WHITE CELL | 13.05 (H) | 3.50 - 10.80 | [facility] | | | COUNT | | K/cu mm | LABORATORY | | | | | | SERVICES, | | | | | | CORE | | + + + + + + | RED CELL | 3.49 (L) | 4.00 - 5.20 | [facility] | | | COUNT | | M/cu mm | LABORATORY | | | | | | SERVICES, | | | | | | CORE | | + + + + + + | HEMOGLOBIN | 11.1 (L) | 12.0 - 16.0 | [facility] | | | | | g/dL | LABORATORY | | | | | | SERVICES, | | | | | | CORE | | + + + + + + | HEMATOCRIT | 34.7 (L) | 36.0 - 46.0 % | [facility] | | | | | | LABORATORY | | | | | | SERVICES, | | | | | | CORE | | + + + + + + | MCV | 99.4 | 80.0 - 100.0 fL | [facility] | | | | | | LABORATORY | | | | | | SERVICES, | | | | | | CORE | | + + + + + + | MCHC | 32.0 | 32.0 - 36.0 | [facility] | | | | | g/dL | LABORATORY | | | | | | SERVICES, | | | | | | CORE | | + + + + + + | RDW SD | 58.2 (H) | 35.1 - 46.3 fL | [facility] | | | | | | LABORATORY | | | | | | SERVICES, | | | | | | CORE | | + + + + + + | PLATELET | 240 | 150 - 400 K/cu | [facility] | | | COUNT | | mm | LABORATORY | | | | | | SERVICES, | | | | | | CORE | | + + + + + + | MPV | 9.8 | 9.7 - 12.3 fL | [facility] | | | | | | LABORATORY | | | | | | SERVICES, | | | | | | CORE | | + + + + + + | NRBC% | 0.2 | 0.0 - 0.3 % | [facility] | | | | | | LABORATORY | | | | | | SERVICES, | | | | | | CORE | | + + + + + + | NRBC# | 0.02 | 0.00 - 0.02 | [facility] | | | | | K/cu mm | LABORATORY | | | | | | SERVICES, | | | | | | CORE | | + + + + + + + + | Specimen | + + | Blood - Blood | | (substance) | + + + + + + + | Performing | Address | City/State/Zipcode | Phone Number | | Organization | | | | + + + + + | [facility] | [address] | [place] [address] | | | SERVICES, CORE | [address] | | | + + + + + INR (09/18/2018 6:11 AM PDT) + +-------+ + + + | Component | Value | Ref Range | Performed | Pathologist | | | | | At | Signature | + +-------+ + + + | INR | 1.16 | 0.90 - 1.20 INR | [facility] | | | | | | LABORATORY | | | | | | SERVICES, | | | | | | CORE | | + +-------+ + + + + + | Specimen | + + | Blood - Blood | | (substance) | + + + + + | Narrative | Performed At | + + + | INR Therapeutic ranges for full anticoagulation: INR for | [facility] | | Venous Thromboembolism (2.0 - 3.0) INR INR for | LABORATORY | | most patients with mech. valves (2.5 - 3.5) INR | SERVICES, CORE | + + + + + + + + | Performing | Address | City/State/Zipcode | Phone Number | | Organization | | | | + + + + + | [facility] | [address] | [place] [address] | | | SERVICES, CORE | [address] | | | + + + + + COMPLETE METABOLIC SET (NA,K,CL,CO2,BUN,CREAT,GLUC,CA,AST,ALT,BILI TOTAL,ALK PHOS,ALB,PROT TOTAL) (09/18/2018 6:11 AM PDT) + +---------+ + + + | Component | Value | Ref Range | Performed | Pathologist | | | | | At | Signature | + +---------+ + + + | GLUCOSE, | 154 (H) | 70 - 99 mg/dL | [facility] | | | PLASMA | | | LABORATORY | | | (LAB) | | | SERVICES, | | | | | | CORE | | + +---------+ + + + | BUN, PLASMA | 14 | 6 - 20 mg/dL | [facility] | | | (LAB) | | | LABORATORY | | | | | | SERVICES, | | | | | | CORE | | + +---------+ + + + | CREATININE | 0.65 | 0.60 - 1.10 | [facility] | | | PLASMA | | mg/dL | LABORATORY | | | (LAB) | | | SERVICES, | | | | | | CORE | | + +---------+ + + + | EGFR | >60 | >60 mL/min | [facility] | | | - | | | LABORATORY | | | MALTESE | | | SERVICES, | | | | | | CORE | | + +---------+ + + + | EGFR NON | >60 | >60 mL/min | [facility] | | | -ALIZA | | | LABORATORY | | | RICAN | | | SERVICES, | | | | | | CORE | | + +---------+ + + + | SODIUM, | 135 (L) | 136 - 145 | [facility] | | | PLASMA | | mmol/L | LABORATORY | | | (LAB) | | | SERVICES, | | | | | | CORE | | + +---------+ + + + | POTASSIUM, | 4.3 | 3.4 - 5.0 | [facility] | | | PLASMA | | mmol/L | LABORATORY | | | (LAB) | | | SERVICES, | | | | | | CORE | | + +---------+ + + + | CHLORIDE, | 99 | 97 - 108 mmol/L | [facility] | | | PLASMA | | | LABORATORY | | | (LAB) | | | SERVICES, | | | | | | CORE | | + +---------+ + + + | TOTAL CO2, | 34 (H) | 21 - 32 mmol/L | [facility] | | | PLASMA | | | LABORATORY | | | (LAB) | | | SERVICES, | | | | | | CORE | | + +---------+ + + + | CALCIUM, | 8.9 | 8.6 - 10.2 | [facility] | | | PLASMA | | mg/dL | LABORATORY | | | (LAB) | | | SERVICES, | | | | | | CORE | | + +---------+ + + + | CALCIUM(ALB | 10.1 | 8.6 - 10.2 | [facility] | | | CORRECTED) | | mg/dL | LABORATORY | | | | | | SERVICES, | | | | | | CORE | | + +---------+ + + + | BILIRUBIN | 0.8 | 0.3 - 1.2 mg/dL | [facility] | | | TOTAL | | | LABORATORY | | | | | | SERVICES, | | | | | | CORE | | + +---------+ + + + | TOTAL | 6.3 (L) | 6.4 - 8.2 g/dL | [facility] | | | PROTEIN, | | | LABORATORY | | | PLASMA | | | SERVICES, | | | (LAB) | | | CORE | | + +---------+ + + + | ALBUMIN, | 2.5 (L) | 3.5 - 4.7 g/dL | [facility] | | | PLASMA | | | LABORATORY | | | (LAB) | | | SERVICES, | | | | | | CORE | | + +---------+ + + + | ALK PHOS | 206 (H) | 42 - 98 U/L | [facility] | | | | | | LABORATORY | | | | | | SERVICES, | | | | | | CORE | | + +---------+ + + + | AST(SGOT) | 27 | <=41 U/L | [facility] | | | | | | LABORATORY | | | | | | SERVICES, | | | | | | CORE | | + +---------+ + + + | ALT (SGPT) | 85 (H) | <=60 U/L | [facility] | | | | | | LABORATORY | | | | | | SERVICES, | | | | | | CORE | | + +---------+ + + + | ANION GAP | 2 (L) | 4 - 11 mmol/L | [facility] | | | | | | LABORATORY | | | | | | SERVICES, | | | | | | CORE | | + +---------+ + + + | ANION | 5 | 4 - 11 mmol/L | [facility] [...] + + | Blood - Blood | | (substance) | + + + + + | [...] | | Kidney Failure Estimated GFR greater than 60 mL/min/1.73 sq m is of | | | limited clinical value. The MDRD equation is not valid in the | | | following situations: - Patients under 18 years of age - Severe | | | malnutrition or obesity - Vegetarian diet - Rapidly changing kidney | | | function - Amputees, paraplegics, or other muscle-wasting diseses | | + + + + + + + + | Performing | Address | City/State/Zipcode | Phone Number | | Organization | | | | + + + + + | [facility] | [address] | [place] [address] | | | SERVICES, CORE | [address] | | | + + + + + CAPILLARY BLOOD GLUCOSE (NO CHG), POC (09/17/2018 10:32 PM PDT) + +---------+ + + + | Component | Value | Ref Range | Performed | Pathologist | | | | | At | Signature | + +---------+ + + + | BLOOD | 174 (H) | 60 - 99 mg/dL | [facility] - | | | GLUCOSE, | | | [facility] | | | POC | | | [facility] | | | | | | OF CARE | | | | | | TESTS | | + +---------+ + + + + + | Specimen | + + | | + + + + + + + | Performing | Address | City/State/Zipcode | Phone Number | | Organization | | | | + + + + + | [facility] | [address] | [place], [place] | | | [facility] | [address] | [address] | | | TESTS | | | | + + + + + CAPILLARY BLOOD GLUCOSE (NO CHG), POC (09/17/2018 8:18 PM PDT) + +---------+ + + + | Component | Value | Ref Range | Performed | Pathologist | | | | | At | Signature | + +---------+ + + + | BLOOD | 161 (H) | 60 - 99 mg/dL | [facility] | | | GLUCOSE, | | | [facility] | | | POC | | | [facility] | | | | | | OF CARE | | | | | | TESTS | | + +---------+ + + + + + | Specimen | + + | | + + + + + + + | Performing | Address | City/State/Zipcode | Phone Number | | Organization | | | | + + + + + | [facility] | [address] | [place], [place] | | | [facility] | [address] | [address] | | | TESTS | | | | + + + + + CAPILLARY BLOOD GLUCOSE (NO CHG), POC (09/17/2018 3:32 PM PDT) + +---------+ + + + | Component | Value | Ref Range | Performed | Pathologist | | | | | At | Signature | + +---------+ + + + | BLOOD | 153 (H) | 60 - 99 mg/dL | [facility] - | | | GLUCOSE, | | | [facility] | | | POC | | | [place] | | | | | | OF CARE | | | | | | TESTS | | + +---------+ + + + + + | Specimen | + + | | + + + + + + + | Performing | Address | City/State/Zipcode | Phone Number | | Organization | | | | + + + + + | [facility] | [address] | [place], [place] | | | [facility] | [address] | [phone] | | | TESTS | | | | + + + + + CAPILLARY BLOOD GLUCOSE (NO CHG), POC (09/17/2018 9:56 AM PDT) + +---------+ + + + | Component | Value | Ref Range | Performed | Pathologist | | | | | At | Signature | + +---------+ + + + | BLOOD | 154 (H) | 60 - 99 mg/dL | [facility] - | | | GLUCOSE, | | | [facility] | | | POC | | | [facility] | | | | | | OF CARE | | | | | | TESTS | | + +---------+ + + + + + | Specimen | + + | | + + + + + + + | Performing | Address | City/State/Zipcode | Phone Number | | Organization | | | | + + + + + | [facility] | [address] | [place], [place] | | | [facility] | [address] | [phone] | | | TESTS | | | | + + + + + CBC (HEMOGRAM) ONLY (09/17/2018 6:37 AM PDT) + + + + + + | Component | Value | Ref Range | Performed | Pathologist | | | | | At | Signature | + + + + + + | WHITE CELL | 11.66 (H) | 3.50 - 10.80 | [facility] | | | COUNT | | K/cu mm | LABORATORY | | | | | | SERVICES, | | | | | | CORE | | + + + + + + | RED CELL | 3.71 (L) | 4.00 - 5.20 | [facility] | | | COUNT | | M/cu mm | LABORATORY | | | | | | SERVICES, | | | | | | CORE | | + + + + + + | HEMOGLOBIN | 11.6 (L) | 12.0 - 16.0 | [facility] | | | | | g/dL | LABORATORY | | | | | | SERVICES, | | | | | | CORE | | + + + + + + | HEMATOCRIT | 36.4 | 36.0 - 46.0 % | [facility] | | | | | | LABORATORY | | | | | | SERVICES, | | | | | | CORE | | + + + + + + | MCV | 98.1 | 80.0 - 100.0 fL | [facility] | | | | | | LABORATORY | | | | | | SERVICES, | | | | | | CORE | | + + + + + + | MCHC | 31.9 (L) | 32.0 - 36.0 | [facility] | | | | | g/dL | LABORATORY | | | | | | SERVICES, | | | | | | CORE | | + + + + + + | RDW SD | 56.0 (H) | 35.1 - 46.3 fL | [facility] | | | | | | LABORATORY | | | | | | SERVICES, | | | | | | CORE | | + + + + + + | PLATELET | 225 | 150 - 400 K/cu | [facility] | | | COUNT | | mm | LABORATORY | | | | | | SERVICES, | | | | | | CORE | | + + + + + + | MPV | 10.3 | 9.7 - 12.3 fL | [facility] [...] + + | Blood - Blood | | (substance) | + + + + + + + | Performing | Address | City/State/Zipcode | Phone Number | | Organization | | | | + + + + + | [facility] | [address] | [place] [address] | | | SERVICES, CORE | [address] | | | + + + + + INR (09/17/2018 6:37 AM PDT) + +-------+ + + + | Component | Value | Ref Range | Performed | Pathologist | | | | | At | Signature | + +-------+ + + + | INR | 1.19 | 0.90 - 1.20 INR | [facility] | | | | | | LABORATORY | | | | | | SERVICES, | | | | | | CORE | | + +-------+ + + + + + | Specimen | + + | Blood - Blood | | (substance) | + + + + + | Narrative | Performed At | + + + | INR Therapeutic ranges for full anticoagulation: INR for | [facility] | | Venous Thromboembolism (2.0 - 3.0) INR INR for | LABORATORY | | most patients with mech. valves (2.5 - 3.5) INR | SERVICES, CORE | + + + + + + + + | Performing | Address | City/State/Zipcode | Phone Number | | Organization | | | | + + + + + | [facility] | [address] | [place] [address] | | | SERVICES, CORE | [address] | | | + + + + + COMPLETE METABOLIC SET (NA,K,CL,CO2,BUN,CREAT,GLUC,CA,AST,ALT,BILI TOTAL,ALK PHOS,ALB,PROT TOTAL) (09/17/2018 6:37 AM PDT) + + + + + + | Component | Value | Ref Range | Performed | Pathologist | | | | | At | Signature | + + + + + + | GLUCOSE, | 151 (H) | 70 - 99 mg/dL | [facility] | | | PLASMA | | | LABORATORY | | | (LAB) | | | SERVICES, | | | | | | CORE | | + + + + + + | BUN, PLASMA | 11 | 6 - 20 mg/dL | [facility] | | | (LAB) | | | LABORATORY | | | | | | SERVICES, | | | | | | CORE | | + + + + + + | CREATININE | 0.55 (L) | 0.60 - 1.10 | [facility] | | | PLASMA | | mg/dL | LABORATORY | | | (LAB) | | | SERVICES, | | | | | | CORE | | + + + + + + | EGFR | >60 | >60 mL/min | [facility] | | | - | | | LABORATORY | | | MALTESE | | | SERVICES, | | | | | | CORE | | + + + + + + | EGFR NON | >60 | >60 mL/min | [facility] | | | -ALIZA | | | LABORATORY | | | RICAN | | | SERVICES, | | | | | | CORE | | + + + + + + | SODIUM, | 136 | 136 - 145 | [facility] | | | PLASMA | | mmol/L | LABORATORY | | | (LAB) | | | SERVICES, | | | | | | CORE | | + + + + + + | POTASSIUM, | 5.3 (H) | 3.4 - 5.0 | [facility] | [...] + + + | TOTAL CO2, | 32 | 21 - 32 mmol/L | [facility] | | | PLASMA | | | LABORATORY | | | (LAB) | | | SERVICES, | | | | | | CORE | | + + + + + + | CALCIUM, | 8.9 | 8.6 - 10.2 | [facility] | | | PLASMA | | mg/dL | LABORATORY | | | (LAB) | | | SERVICES, | | | | | | CORE | | + + + + + + | CALCIUM(ALB | 10.0 | 8.6 - 10.2 | [facility] | | | CORRECTED) | | mg/dL | LABORATORY | | | | | | SERVICES, | | | | | | CORE | | + + + + + + | BILIRUBIN | 0.9 | 0.3 - 1.2 mg/dL | [facility] | | | TOTAL | | | LABORATORY | | | | | | SERVICES, | | | | | | CORE | | + + + + + + | TOTAL | 6.4 | 6.4 - 8.2 g/dL | [facility] | | | PROTEIN, | | | LABORATORY | | | PLASMA | | | SERVICES, | | | (LAB) | | | CORE | | + + + + + + | ALBUMIN, | 2.6 (L) | 3.5 - 4.7 g/dL | [facility] | | | PLASMA | | | LABORATORY | | | (LAB) | | | SERVICES, | | | | | | CORE | | + + + + + + | ALK PHOS | 218 (H) | 42 - 98 U/L | [facility] | | | | | | LABORATORY | | | | | | SERVICES, | | | | | | CORE | | + + + + + + | AST(SGOT) | 82 (H) | <=41 U/L | [facility] | | | | | | LABORATORY | | | | | | SERVICES, | | | | | | CORE | | + + + + + + | ALT (SGPT) | 145 (H) | <=60 U/L | [facility] | | | | | | LABORATORY | | | | | | SERVICES, | | | | | | CORE | | + + + + + + | ANION GAP | 4 | 4 - 11 mmol/L | [facility] | | | | | | LABORATORY | | | | | | SERVICES, | | | | | | CORE | | + + + + + + | ANION | 7 | 4 - 11 mmol/L | [facility] | | | GAP(ALB | | | LABORATORY | | | CORRECTED) | | | SERVICES, | | | | | | CORE | | + + + + + + | POTASSIUM | Sl Hemo | | [facility] | | | CMNT | | | LABORATORY | | | | | | SERVICES, | | | | | | CORE | | + + + + + + | AST CMNT | Sl Hemo | | [facility] | | | | | | LABORATORY | | | | | | SERVICES, | | | | | | CORE | | + + + + + + + + | Specimen | + + | Blood - Blood | | (substance) | + + + + + | Narrative | Performed At | + + + | Sample hemolyzed. Results for LD, K, and AST may be inaccurate. | [facility] | | Refer to comment under test. GFR is estimated using the MDRD | LABORATORY | | equation recommended by the National Kidney Disease Education Program. | SERVICES, CORE | | Estimated GFR Interpretive Information: <60 mL/min/1.73 sq m | | | Chronic Kidney Disease <15 mL/min/1.73 sq m | | | Kidney Failure Estimated GFR greater than 60 | | | mL/min/1.73 sq m is of limited clinical value. The MDRD equation | | | is not valid in the following situations: - Patients under 18 years | | | of age - Severe malnutrition or obesity - Vegetarian diet - Rapidly | | | changing kidney function - Amputees, paraplegics, or other | | | muscle-wasting diseses | | + + + + + + + + | Performing | Address | City/State/Zipcode | Phone Number | | Organization | | | | + + + + + | [facility] | [address] | [place] [address] | | | SERVICES, CORE | [address] | | | + + + + + CAPILLARY BLOOD GLUCOSE (NO CHG), POC (2018 10:18 PM PDT) + +---------+ + + + | Component | Value | Ref Range | Performed | Pathologist | | | | | At | Signature | + +---------+ + + + | BLOOD | 188 (H) | 60 - 99 mg/dL | [facility] - | | | GLUCOSE, | | | [facility] | | | POC | | | [facility] | | | | | | OF CARE | | | | | | TESTS | | + +---------+ + + + + + | Specimen | + + | | + + + + + + + | Performing | Address | City/State/Zipcode | Phone Number | | Organization | | | | + + + + + | [facility] | [address] | [place], [place] | | | [facility] | [address] | [phone] | | | TESTS | | | | + + + + + PROCEDURE NOTE (2018 10:07 PM PDT)CAPILLARY BLOOD GLUCOSE (NO CHG), POC (2018 6:56 PM PDT) + +---------+ + + + | Component | Value | Ref Range | Performed | Pathologist | | | | | At | Signature | + +---------+ + + + | BLOOD | 160 (H) | 60 - 99 mg/dL | [facility] - | | | GLUCOSE, | | | [facility] | | | POC | | | [facility] | | | | | | OF CARE | | | | | | TESTS | | + +---------+ + + + + + | Specimen | + + | | + + + + + + + | Performing | Address | City/State/Zipcode | Phone Number | | Organization | | | | + + + + + | [facility] | [address] | [place], [place] | | | [facility] | [address] | [address] | | | TESTS | | | | + + + + + CAPILLARY BLOOD GLUCOSE (NO CHG), POC (2018 2:29 PM PDT) + +---------+ + + + | Component | Value | Ref Range | Performed | Pathologist | | | | | At | Signature | + +---------+ + + + | BLOOD | 164 (H) | 60 - 99 mg/dL | [facility] - | | | GLUCOSE, | | | [facility] | | | POC | | | [facility] | | | | | | OF CARE | | | | | | TESTS | | + +---------+ + + + + + | Specimen | + + | | + + + + + + + | Performing | Address | City/State/Zipcode | Phone Number | | Organization | | | | + + + + + | [facility] | [address] | [place], [place] | | | [facility] | [address] | [phone] | | | TESTS | | | | + + + + + PROCEDURE NOTE (2018 1:15 PM PDT) + + + | Narrative | Performed At | + + + | Shyam Mortensen MD 2018 1:17 PM Date: 2018 | | | Attending Surgeon: Shyam Mortensen M.D. Nursing Care Attendant(s): Luis Enrique | | | Nic Gross, Clif Woelber M.D. Preoperative Diagnosis(es): | | | Right distal femur fracture. Postoperative Diagnosis(es): Same | | | Procedures Performed: Intramedullary nailing of right distal femur | | | fracture Anesthesia: General endotracheal anesthesia | | | Complications: None. Components Used: Tsai and Nephew retrograde | | | femoral nail, size 34cm x 11.5 mm. Disposition: To the PACU | | | stable. Brief Clinical Note and Indications: The patient was | | | seen and evaluated by the orthopedic team, and surgery was | | | recommended for the above diagnosis . We discussed the risks, | | | benefits, and alternatives to the procedure listed above. The | | | patient understood the risks to include infection, bleeding, damage | | | to nerves, vessels, tendons, bones, cartilage, muscle, and need for | | | additional surgery, postoperative pain, and stiffness. An | | | opportunity to get all questions answered was given, and she | | | consented to the procedure. Procedure: The patient was brought | | | to the operating room, transferred to the OR table and given | | | general endotracheal anesthesia without complications. An SCD was | | | placed and activated on the nonoperative leg. A time out was held, | | | the patient properly identified and the surgical sites noted to be | | | marked with a pen. All bony prominences were padded. The | | | affected lower extremity was then prepped and draped in a normal | | | sterile fashion. Starting at the knee an incision was made through | | | the patellar tendon. Once this was performed, A starting | | | guidewire was passed into the femur under fluoroscopic guidance. | | | A starting reamer was then used and the guidehole opened. A | | | guidewire was placed up the shaft of the femur and the fracture then | | | reduced. Reaming was then performed up to a size 13 mm reamer | | | with good chatter noted. A size 34 cm x 11.5 mm Tsai and | | | Nephew retrograde femoral nail was then impacted into place down the | | | length of the femur crossing over the fracture site. Three | | | interlock screws were placed using the targeting guide. Proximally | | | then, two screws were placed through the nail using perfect muckleshoot | | | technique. Final fluoroscopic films were taken in both the AP and | | | lateral planes and found to be acceptable. All nail targeting | | | equipment was removed. Thorough irrigation of the wound was then | | | completed. Deep closure was performed with a 2-0 Polysorb suture | | | followed by skin kayleen. Bacitracin, Adaptic, and soft sterile | | | dressing was applied to the incisions. The patient tolerated the | | | procedure well, emerged from anesthesia without difficulty, and | | | arrived in the PACU in stable condition. In accordance with | | | medicare guidelines I attest that I was present and participated in | | | the entire case. Due to the difficulty of this case because of the | | | patients extreme morbid obesity, technical skill required, and | | | additional time involved in this surgery, it should be considered | | | highly complex compared to a typical femoral nailing. | | | Postoperative Plan: The patient will be toe-touch weight bearing the | | | affected lower extremity. In 2 weeks, she will follow up in clinic | | | at that time for wound inspection. Further followup will be with | | | me at the 6-week lm. X-rays will be taken at that time. | | + + + X-RAY FLUOROSCOPY IN OR > 1 HOUR (2018 1:14 PM PDT) + + | Specimen | + + | | + + + + + | Narrative | Performed At | + + + | - At the time of the study, no professional interpretation was | [facility] | | requested. - | [facility] | + + + + +---------+ + + | Performing | Address | City/State/Zipcode | Phone Number | | Organization | | | | + +---------+ + + | [facility] | | | | + +---------+ + + X-RAY FEMUR 2 VIEWS RIGHT (2018 1:13 PM PDT) + + | Specimen | + + | | + + + + + | Narrative | Performed At | + + + | - At the time of the study, no professional interpretation was | [facility] | | requested. - | RADIOLOGY | + + + + +---------+ + + | Performing | Address | City/State/Zipcode | Phone Number | | Organization | | | | + +---------+ + + | [facility] | | | | + +---------+ + + CAPILLARY BLOOD GLUCOSE (NO CHG), POC (2018 12:22 PM PDT) + +---------+ + + + | Component | Value | Ref Range | Performed | Pathologist | | | | | At | Signature | + +---------+ + + + | BLOOD | 135 (H) | 60 - 99 mg/dL | [facility] - | | | GLUCOSE, | | | [place] | | | POC | | | [place] | | | | | | [facility] CARE | | | | | | TESTS | | + +---------+ + + + + + | Specimen | + + | | + + + + + + + | Performing | Address | City/State/Zipcode | Phone Number | | Organization | | | | + + + + + | [facility] | [address] | [place], [place] | | | [facility] | [facility] | [phone] | | | TESTS | | | | + + + + + CAPILLARY BLOOD GLUCOSE (NO CHG), POC (2018 8:08 AM PDT) + +---------+ + + + | Component | Value | Ref Range | Performed | Pathologist | | | | | At | Signature | + +---------+ + + + | BLOOD | 143 (H) | 60 - 99 mg/dL | [facility] - | | | GLUCOSE, | | | [place] | | | POC | | | [facility] | | | | | | OF CARE | | | | | | TESTS | | + +---------+ + + + + + | Specimen | + + | | + + + + + + + | Performing | Address | City/State/Zipcode | Phone Number | | Organization | | | | + + + + + | [facility] | [address] | [place], [place] | | | [facility] | [address] | [phone] | | | TESTS | | | | + + + + + CBC (HEMOGRAM) ONLY (2018 6:14 AM PDT) + + + + + + | Component | Value | Ref Range | Performed | Pathologist | | | | | At | Signature | + + + + + + | WHITE CELL | 8.98 | 3.50 - 10.80 | [facility] | | | COUNT | | K/cu mm | LABORATORY | | | | | | SERVICES, | | | | | | CORE | | + + + + + + | RED CELL | 3.86 (L) | 4.00 - 5.20 | [facility] | | | COUNT | | M/cu mm | LABORATORY | | | | | | SERVICES, | | | | | | CORE | | + + + + + + | HEMOGLOBIN | 12.0 | 12.0 - 16.0 | [facility] | | | | | g/dL | LABORATORY | | | | | | SERVICES, | | | | | | CORE | | + + + + + + | HEMATOCRIT | 38.0 | 36.0 - 46.0 % | [facility] | | | | | | LABORATORY | | | | | | SERVICES, | | | | | | CORE | | + + + + + + | MCV | 98.4 | 80.0 - 100.0 fL | [facility] | | | | | | LABORATORY | | | | | | SERVICES, | | | | | | CORE | | + + + + + + | MCHC | 31.6 (L) | 32.0 - 36.0 | [facility] | | | | | g/dL | LABORATORY | | | | | | SERVICES, | | | | | | CORE | | + + + + + + | RDW SD | 56.0 (H) | 35.1 - 46.3 fL | [facility] | | | | | | LABORATORY | | | | | | SERVICES, | | | | | | CORE | | + + + + + + | PLATELET | 199 | 150 - 400 K/cu | [facility] | | | COUNT | | mm | LABORATORY | | | | | | SERVICES, | | | | | | CORE | | + + + + + + | MPV | 10.1 | 9.7 - 12.3 fL | [facility] [...] + + | Blood - Blood | | (substance) | + + + + + + + | Performing | Address | City/State/Zipcode | Phone Number | | Organization | | | | + + + + + | [facility] | [address] | [place] [address] | | | SERVICES, CORE | [address] | | | + + + + + INR (2018 6:14 AM PDT) + + + + + + | Component | Value | Ref Range | Performed | Pathologist | | | | | At | Signature | + + + + + + | INR | 1.25 (H) | 0.90 - 1.20 INR | [facility] | | | | | | LABORATORY | | | | | | SERVICES, | | | | | | CORE | | + + + + + + + + | Specimen | + + | Blood - Blood | | (substance) | + + + + + | Narrative | Performed At | + + + | INR Therapeutic ranges for full anticoagulation: INR for | [facility] | | Venous Thromboembolism (2.0 - 3.0) INR INR for | LABORATORY | | most patients with mech. valves (2.5 - 3.5) INR | SERVICES, CORE | + + + + + + + + | Performing | Address | City/State/Zipcode | Phone Number | | Organization | | | | + + + + + | [facility] | [address] | [place] [address] | | | SERVICES, CORE | [address] | | | + + + + + COMPLETE METABOLIC SET (NA,K,CL,CO2,BUN,CREAT,GLUC,CA,AST,ALT,BILI TOTAL,ALK PHOS,ALB,PROT TOTAL) (2018 6:14 AM PDT) + + + + + + | Component | Value | Ref Range | Performed | Pathologist | | | | | At | Signature | + + + + + + | GLUCOSE, | 132 (H) | 70 - 99 mg/dL | [facility] | | | PLASMA | | | LABORATORY | | | (LAB) | | | SERVICES, | | | | | | CORE | | + + + + + + | BUN, PLASMA | 8 | 6 - 20 mg/dL | [facility] | | | (LAB) | | | LABORATORY | | | | | | SERVICES, | | | | | | CORE | | + + + + + + | CREATININE | 0.57 (L) | 0.60 - 1.10 | [facility] | | | PLASMA | | mg/dL | LABORATORY | | | (LAB) | | | SERVICES, | | | | | | CORE | | + + + + + + | EGFR | >60 | >60 mL/min | [facility] | | | - | | | LABORATORY | | | MALTESE | | | SERVICES, | | | | | | CORE | | + + + + + + | EGFR NON | >60 | >60 mL/min | [facility] | | | -[facility]IZ[facility] | | | LABORATORY | | | RICAN | | | SERVICES, | | | | | | CORE | | + + + + + + | SODIUM, | 139 | 136 - 145 | [facility] | [...] + + + + | CHLORIDE, | 103 | 97 - 108 mmol/L | [facility] | | | PLASMA | | | LABORATORY | | | (LAB) | | | SERVICES, | | | | | | CORE | | + + + + + + | TOTAL CO2, | 33 (H) | 21 - 32 mmol/L | [facility] | | | PLASMA | | | LABORATORY | | | (LAB) | | | SERVICES, | | | | | | CORE | | + + + + + + | CALCIUM, | 8.8 | 8.6 - 10.2 | [facility] | | | PLASMA | | mg/dL | LABORATORY | | | (LAB) | | | SERVICES, | | | | | | CORE | | + + + + + + | CALCIUM(ALB | 9.6 | 8.6 - 10.2 | [facility] | | | CORRECTED) | | mg/dL | LABORATORY | | | | | | SERVICES, | | | | | | CORE | | + + + + + + | BILIRUBIN | 0.8 | 0.3 - 1.2 mg/dL | [facility] | | | TOTAL | | | LABORATORY | | | | | | SERVICES, | | | | | | CORE | | + + + + + + | TOTAL | 6.4 | 6.4 - 8.2 g/dL | [facility] | | | PROTEIN, | | | LABORATORY | | | PLASMA | | | SERVICES, | | | (LAB) | | | CORE | | + + + + + + | ALBUMIN, | 3.0 (L) | 3.5 - 4.7 g/dL | [facility] | | | PLASMA | | | LABORATORY | | | (LAB) | | | SERVICES, | | | | | | CORE | | + + + + + + | ALK PHOS | 289 (H) | 42 - 98 U/L | [facility] | | | | | | LABORATORY | | | | | | SERVICES, | | | | | | CORE | | + + + + + + | AST(SGOT) | 162 (H) | <=41 U/L | [facility] | | | | | | LABORATORY | | | | | | SERVICES, | | | | | | CORE | | + + + + + + | ALT (SGPT) | 256 (H) | <=60 U/L | [facility] | | | | | | LABORATORY | | | | | | SERVICES, | | | | | | CORE | | + + + + + + | ANION GAP | 3 (L) | 4 - 11 mmol/L | [facility] | | | | | | LABORATORY | | | | | | SERVICES, | | | | | | CORE | | + + + + + + | ANION | 5 | 4 - 11 mmol/L | [facility] [...] + + | Blood - Blood | | (substance) | + + + + + | [...] | | Kidney Failure Estimated GFR greater than 60 mL/min/1.73 sq m is of | | | limited clinical value. The MDRD equation is not valid in the | | | following situations: - Patients under 18 years of age - Severe | | | malnutrition or obesity - Vegetarian diet - Rapidly changing kidney | | | function - Amputees, paraplegics, or other muscle-wasting diseses | | + + + + + + + + | Performing | Address | City/State/Zipcode | Phone Number | | Organization | | | | + + + + + | [facility] | [address] | [place] [address] | | | SERVICES, CORE | [address] | | | + + + + + CARDIOLOGY (2018 12:00 AM PDT) + + + | Narrative | Performed At | + + + | | | + + + CAPILLARY BLOOD GLUCOSE (NO CHG), POC (09/15/2018 11:13 PM PDT) + +---------+ + + + | Component | Value | Ref Range | Performed | Pathologist | | | | | At | Signature | + +---------+ + + + | BLOOD | 136 (H) | 60 - 99 mg/dL | [facility] - | | | GLUCOSE, | | | [facility] | | | POC | | | [facility] | | | | | | OF CARE | | | | | | TESTS | | + +---------+ + + + + + | Specimen | + + | | + + + + + + + | Performing | Address | City/State/Zipcode | Phone Number | | Organization | | | | + + + + + | [facility] | [address] | [place], [place] | | | [facility] | [facility] | [address] | | | TESTS | | | | + + + + + CAPILLARY BLOOD GLUCOSE (NO CHG), POC (09/15/2018 8:45 PM PDT) + +---------+ + + + | Component | Value | Ref Range | Performed | Pathologist | | | | | At | Signature | + +---------+ + + + | BLOOD | 123 (H) | 60 - 99 mg/dL | [facility] - | | | GLUCOSE, | | | [facility] | | | POC | | | [facility] | | | | | | OF CARE | | | | | | TESTS | | + +---------+ + + + + + | Specimen | + + | | + + + + + + + | Performing | Address | City/State/Zipcode | Phone Number | | Organization | | | | + + + + + | [facility] | [address] | [place], [place] | | | [facility] | [facility] | [address] | | | TESTS | | | | + + + + + HEPATITIS C VIRUS W/CONFIRMATION (09/15/2018 4:16 PM PDT) + + + + + + | Component | Value | Ref Range | Performed | Pathologist | | | | | At | Signature | + + + + + + | HEP C AB | Not Detected | Not Detected | [facility] | | | | | | LABORATORY | | | | | | SERVICES, | | | | | | CORE | | + + + + + + + + | Specimen | + + | Blood - Blood | | (substance) | + + + + + + + | Performing | Address | City/State/Zipcode | Phone Number | | Organization | | | | + + + + + | [facility] | [address] | [place] [address] | | | SERVICES, CORE | [address] | | | + + + + + HEPATITIS B CORE AB, SERUM (09/15/2018 4:16 PM PDT) + + + + + + | Component | Value | Ref Range | Performed | Pathologist | | | | | At | Signature | + + + + + + | HEP B CORE | Not Detected | Not Detected | [facility] | | | AB | | | LABORATORY | | | | | | SERVICES, | | | | | | CORE | | + + + + + + + + | Specimen | + + | Blood - Blood | | (substance) | + + + + + + + | Performing | Address | City/State/Zipcode | Phone Number | | Organization | | | | + + + + + | [facility] | [address] | [place] [address] | | | SERVICES, CORE | [address] | | | + + + + + HEPATITIS B SURFACE AG W/REFLEX CONFIRMATION IF INDETERMINATE RESULTS (09/15/2018 4:16 PM PDT) + + + + + + | Component | Value | Ref Range | Performed | Pathologist | | | | | At | Signature | + + + + + + | HEPATITIS B | | | [facility] | | | SURFACE | | | LABORATORY | | | AG, SERUM | | | SERVICES, | | | | | | CORE | | + + + + + + | HEP B | Not Detected | Not Detected | [facility] | | | SURFACE AG | | | LABORATORY | | | | | | SERVICES, | | | | | | CORE | | + + + + + + + + | Specimen | + + | Blood - Blood | | (substance) | + + + + + + + | Performing | Address | City/State/Zipcode | Phone Number | | Organization | | | | + + + + + | [facility] | [address] | [place] [address] | | | SERVICES, CORE | [address] | | | + + + + + HEPATITIS A AB IGM, SERUM (09/15/2018 4:16 PM PDT) + + + + + + | Component | Value | Ref Range | Performed | Pathologist | | | | | At | Signature | + + + + + + | HEPATITIS A | Negative | Negative | [facility] | | | AB, IGM | | | [facility] - | | | | | | [place] | | + + + + + + + + | Specimen | + + | Blood - Blood | | (substance) | + + + + + + + | Performing | Address | City/State/Zipcode | Phone Number | | Organization | | | | + + + + + | [facility] | [address] | [place] [address] | | | [place] | | | | + + + + + HEPATITIS A AB, IGG (09/15/2018 4:16 PM PDT) + + + + + + | Component | Value | Ref Range | Performed | Pathologist | | | | | At | Signature | + + + + + + | HEPATITIS A | Negative | Negative | [facility] | | | IGG | | | [facility] - | | | | | | [place] | | + + + + + + + + | Specimen | + + | Blood - Blood | | (substance) | + + + + + + + | Performing | Address | City/State/Zipcode | Phone Number | | Organization | | | | + + + + + | [facility] | [address] | [place] [address] | | | [place] | | | | + + + + + CT LOWER EXTREMITY RIGHT WO CONTRAST (09/15/2018 3:28 PM PDT) + + | Specimen | + + | | + + + + + | Narrative | Performed At | + + + | EXAM: CT EXT LWR RIGHT WO CONTRAST HISTORY: distal femur | [facility] | | fracture COMPARISON: 09/15/2018 TECHNIQUE: Non-contrast axial | RADIOLOGY VOICE | | CT images of the right lower extremity were acquired. Sagittal and | RECOGNITION 2 | | coronal reformations were completed. No IV contrast was | | | administered. FINDINGS: There is markedly comminuted mild to | | | moderately displaced distal femoral metadiaphyseal fracturing with | | | both transverse and craniocaudal components. The fracture planes | | | extend intra-articularly at the medial femoral condyle into the | | | tibiotalar joint. There are multiple displaced cortical fracture | | | fragments some of which are rotated approximately 90 degrees and | | | measuring up to 5.2 cm (series 5 image 71). There is impaction of the | | | femoral fracture fragments with overall shortening of the femur. There | | | is up to 3 cm of overlapping of the dominant fracture fragments. | | | There is diffuse soft tissue swelling about the fracture planes. | | | There is diffuse subcutaneous soft tissue swelling about the knee with | | | a small lipohemarthrosis. No additional acute fracture is | | | identified. There is severe tricompartmental osteoarthrosis at the | | | knee. There is mild right hip osteoarthrosis. Limited intrapelvic | | | views demonstrate no significant abnormality. There is no large | | | hematoma formation about the lower extremity. IMPRESSION: | | | Markedly comminuted mild to moderately displaced distal femoral | | | metadiaphyseal fracture with intra-articular extension. No | | | additional acute fracture is identified. Severe tricompartmental | | | osteoarthrosis at the knee. I have personally reviewed the images | | | and, if necessary, edited the report. I agree with the report as now | | | presented. Final signature: Mravin Ashley MD 2018 | | | 9:56 AM Preliminary: Marvin Ashley MD Dictation | | | initiated: Marvin Ashley MD 2018 8:48 AM | | + + + + + | Procedure Note | + + | Service Account, [facility] Res In Interface - 2018 9:57 AM PDT EXAM: CT EXT LWR | | RIGHT WO CONTRAST HISTORY: distal femur fracture COMPARISON: 09/15/2018 TECHNIQUE: | | Non-contrast axial CT images of the right lower extremity were acquired. Sagittal and | | coronal reformations were completed. No IV contrast was administered. FINDINGS: There | | is markedly comminuted mild to moderately displaced distal femoral metadiaphyseal | | fracturing with both transverse and craniocaudal components. The fracture planes extend | | intra-articularly at the medial femoral condyle into the tibiotalar joint. There are | | multiple displaced cortical fracture fragments some of which are rotated approximately | | 90 degrees and measuring up to 5.2 cm (series 5 image 71). There is impaction of the | | femoral fracture fragments with overall shortening of the femur. There is up to 3 cm of | | overlapping of the dominant fracture fragments. There is diffuse soft tissue swelling | | about the fracture planes. There is diffuse subcutaneous soft tissue swelling about the | | knee with a small lipohemarthrosis. No additional acute fracture is identified. There is | | severe tricompartmental osteoarthrosis at the knee. There is mild right hip | | osteoarthrosis. Limited intrapelvic views demonstrate no significant abnormality. There | | is no large hematoma formation about the lower extremity. IMPRESSION: Markedly | | comminuted mild to moderately displaced distal femoral metadiaphyseal fracture with | | intra-articular extension. No additional acute fracture is identified. Severe | | tricompartmental osteoarthrosis at the knee. I have personally reviewed the images and, | | if necessary, edited the report. I agree with the report as now presented. Final | | signature: Marvin Ashley MD 2018 9:56 AM Preliminary: Marvin Ashley MD | | Dictation initiated: Marvin Ashley MD 2018 8:48 AM | | | |IMPRESSION: | | | |Markedly comminuted mild to moderately displaced distal femoral metadiaphyseal fracture wit h intra-articular extension. | | | |No additional acute fracture is identified. Severe tricompartmental osteoarthrosis at the k nee. | | | |I have personally reviewed the images and, if necessary, edited the report. I agree with th e report as now presented. | | | |Final signature: Marvin Ashley MD 2018 9:56 AM | |Preliminary: Marvin Ashley MD | |Dictation initiated: Marvin Ashley MD 2018 8:48 AM | + + + +---------+ + + | Performing | Address | City/State/Zipcode | Phone Number | | Organization | | | | + +---------+ + + | [facility] | | | | | VOICE RECOGNITION 2 | | | | + +---------+ + + CAPILLARY BLOOD GLUCOSE (NO CHG), POC (09/15/2018 2:43 PM PDT) + +---------+ + + + | Component | Value | Ref Range | Performed | Pathologist | | | | | At | Signature | + +---------+ + + + | BLOOD | 125 (H) | 60 - 99 mg/dL | [facility] - | | | GLUCOSE, | | | [facility] | | | POC | | | [facility] | | | | | | OF CARE | | | | | | TESTS | | + +---------+ + + + + + | Specimen | + + | | + + + + + + + | Performing | Address | City/State/Zipcode | Phone Number | | Organization | | | | + + + + + | [facility] | [address] | [place], [place] | | | [facility] | [address] | [address] | | | TESTS | | | | + + + + + X-RAY FEMUR 2 VIEWS RIGHT (09/15/2018 11:33 AM PDT) + + | Specimen | + + | | + + + + + | Narrative | Performed At | + + + | EXAM: FEMUR 2 VIEWS RIGHT HISTORY: Fracture COMPARISON: | [facility] | | Outside radiographs yesterday FINDINGS: The comminuted, | RADIOLOGY VOICE | | impacted distal femoral diametaphyseal fracture is unchanged. No | RECOGNITION 2 | | additional fracture identified. Severe medial and lateral joint space | | | narrowing of the knee, as before. There is diffuse soft tissue | | | swelling. IMPRESSION: Unchanged comminuted, impacted distal | | | femoral diametaphyseal fracture. Severe degenerative joint disease | | | of the knee. I have personally reviewed the images and, if | | | necessary, edited the report. I agree with the report as now | | | presented. Final signature: Dahiana Flowers MD 09/15/2018 | | | 11:52 AM Preliminary: Mami Palmer MD Dictation initiated: | | | Mami Palmer MD 09/15/2018 11:33 AM | | + + + + + | Procedure Note | + + | Service Account, [facility] Res In Interface - 09/15/2018 11:53 AM PDT EXAM: FEMUR 2 | | VIEWS RIGHT HISTORY: Fracture COMPARISON: Outside radiographs yesterday FINDINGS: The | | comminuted, impacted distal femoral diametaphyseal fracture is unchanged. No additional | | fracture identified. Severe medial and lateral joint space narrowing of the knee, as | | before. There is diffuse soft tissue swelling. IMPRESSION: Unchanged comminuted, | | impacted distal femoral diametaphyseal fracture. Severe degenerative joint disease of | | the knee. I have personally reviewed the images and, if necessary, edited the report. I | | agree with the report as now presented. Final signature: Dahiana Flowers MD | | 09/15/2018 11:52 AM Preliminary: Mami Palmer MD Dictation initiated: Mami Greenwood | | MD Estela 09/15/2018 11:33 AM | |IMPRESSION: | | | |Unchanged comminuted, impacted distal femoral diametaphyseal fracture. | | | |Severe degenerative joint disease of the knee. | | | |I have personally reviewed the images and, if necessary, edited the report. I agree with th e report as now presented. | | | |Final signature: Dahiana Flowers MD 09/15/2018 11:52 AM | |Preliminary: Mami Palmer MD | |Dictation initiated: Mami Palmer MD 09/15/2018 11:33 AM | + + + +---------+ + + | Performing | Address | City/State/Zipcode | Phone Number | | Organization | | | | + +---------+ + + | [facility] | | | | | VOICE RECOGNITION 2 | | | | + +---------+ + + X-RAY CHEST 1 VIEW (09/15/2018 11:32 AM PDT) + + | Specimen | + + | | + + + + + | Narrative | Performed At | + + + | EXAM: CHEST 1 VIEW HISTORY: hypoxia, probable pulmonary | [facility] | | hypertension COMPARISON: 01/03/2014 FINDINGS: AP chest | RADIOLOGY VOICE | | radiograph obtained. Heart size upper limits of normal, unchanged. | RECOGNITION 2 | | Central pulmonary arteries appear enlarged as before. There is no | | | pulmonary edema. No consolidation. There is no evidence for pleural | | | effusion. There is no pneumothorax. IMPRESSION: Clear lungs. | | | Findings suggestive of pulmonary hypertension as before. I have | | | personally reviewed the images and, if necessary, edited the report. | | | I agree with the report as now presented. Final signature: Jordan Ivory | | MD Obdulio 09/15/2018 11:35 AM Preliminary: Jordan Mak MD | | | Dictation initiated: Jordan Mak MD 09/15/2018 11:35 AM | | + + + + + | Procedure Note | + + | Service Account, [facility] Res In Interface - 09/15/2018 11:36 AM PDT EXAM: CHEST 1 | | VIEW HISTORY: hypoxia, probable pulmonary hypertension COMPARISON: 01/03/2014 FINDINGS: | | AP chest radiograph obtained. Heart size upper limits of normal, unchanged. Central | | pulmonary arteries appear enlarged as before. There is no pulmonary edema. No | | consolidation. There is no evidence for pleural effusion. There is no pneumothorax. | | IMPRESSION: Clear lungs. Findings suggestive of pulmonary hypertension as before. I have | | personally reviewed the images and, if necessary, edited the report. I agree with the | | report as now presented. Final signature: Jordan Mak MD 09/15/2018 11:35 AM | | Preliminary: Jordan Mak MD Dictation initiated: Jordan Mak MD 09/15/2018 | | 11:35 AM | |IMPRESSION: | | | |Clear lungs. | | | |Findings suggestive of pulmonary hypertension as before. | | | |I have personally reviewed the images and, if necessary, edited the report. I agree with th e report as now presented. | | | |Final signature: Jordan Mak MD 09/15/2018 11:35 AM | |Preliminary: Jordan Mak MD | |Dictation initiated: Jordan Mak MD 09/15/2018 11:35 AM | + + + +---------+ + + | Performing | Address | City/State/Zipcode | Phone Number | | Organization | | | | + +---------+ + + | [facility] | | | | | VOICE RECOGNITION 2 | | | | + +---------+ + + COMPLETE METABOLIC SET (NA,K,CL,CO2,BUN,CREAT,GLUC,CA,AST,ALT,BILI TOTAL,ALK PHOS,ALB,PROT TOTAL) (09/15/2018 9:49 AM PDT) + + + + + + | Component | Value | Ref Range | Performed | Pathologist | | | | | At | Signature | + + + + + + | GLUCOSE, | 98 | 70 - 99 mg/dL | [facility] | | | PLASMA | | | LABORATORY | | | (LAB) | | | SERVICES, | | | | | | CORE | | + + + + + + | BUN, PLASMA | 14 | 6 - 20 mg/dL | [facility] | | | (LAB) | | | LABORATORY | | | | | | SERVICES, | | | | | | CORE | | + + + + + + | CREATININE | 0.54 (L) | 0.60 - 1.10 | [facility] | | | PLASMA | | mg/dL | LABORATORY | | | (LAB) | | | SERVICES, | | | | | | CORE | | + + + + + + | EGFR | >60 | >60 mL/min | [facility] | | | - | | | LABORATORY | | | MALTESE | | | SERVICES, | | | | | | CORE | | + + + + + + | EGFR NON | >60 | >60 mL/min | [facility] | | | -ALIZA | | | LABORATORY | | | RICAN | | | SERVICES, | | | | | | CORE | | + + + + + + | SODIUM, | 139 | 136 - 145 | [facility] | | | PLASMA | | mmol/L | LABORATORY | | | (LAB) | | | SERVICES, | | | | | | CORE | | + + + + + + | POTASSIUM, | 4.8 | 3.4 - 5.0 | [facility] | | | PLASMA | | mmol/L | LABORATORY | | | (LAB) | | | SERVICES, | | | | | | CORE | | + + + + + + | CHLORIDE, | 103 | 97 - 108 mmol/L | [facility] | | | PLASMA | | | LABORATORY | | | (LAB) | | | SERVICES, | | | | | | CORE | | + + + + + + | TOTAL CO2, | 33 (H) | 21 - 32 mmol/L | [facility] | | | PLASMA | | | LABORATORY | | | (LAB) | | | SERVICES, | | | | | | CORE | | + + + + + + | CALCIUM, | 8.6 | 8.6 - 10.2 | [facility] | | | PLASMA | | mg/dL | LABORATORY | | | (LAB) | | | SERVICES, | | | | | | CORE | | + + + + + + | CALCIUM(ALB | 9.5 | 8.6 - 10.2 | [facility] | | | CORRECTED) | | mg/dL | LABORATORY | | | | | | SERVICES, | | | | | | CORE | | + + + + + + | BILIRUBIN | 0.9 | 0.3 - 1.2 mg/dL | [facility] | | | TOTAL | | | LABORATORY | | | | | | SERVICES, | | | | | | CORE | | + + + + + + | TOTAL | 6.3 (L) | 6.4 - 8.2 g/dL | [facility] | | | PROTEIN, | | | LABORATORY | | | PLASMA | | | SERVICES, | | | (LAB) | | | CORE | | + + + + + + | ALBUMIN, | 2.9 (L) | 3.5 - 4.7 g/dL | [facility] | | | PLASMA | | | LABORATORY | | | (LAB) | | | SERVICES, | | | | | | CORE | | + + + + + + | ALK PHOS | 365 (H) | 42 - 98 U/L | [facility] | | | | | | LABORATORY | | | | | | SERVICES, | | | | | | CORE | | + + + + + + | AST(SGOT) | 543 (H) | <=41 U/L | [facility] | | | | | | LABORATORY | | | | | | SERVICES, | | | | | | CORE | | + + + + + + | ALT (SGPT) | 426 (H) | <=60 U/L | [facility] | | | | | | LABORATORY | | | | | | SERVICES, | | | | | | CORE | | + + + + + + | ANION GAP | 3 (L) | 4 - 11 mmol/L | [facility] | | | | | | LABORATORY | | | | | | SERVICES, | | | | | | CORE | | + + + + + + | ANION | 5 | 4 - 11 mmol/L | [facility] | | | GAP(ALB | | | LABORATORY | | | CORRECTED) | | | SERVICES, | | | | | | CORE | | + + + + + + | POTASSIUM | Sl Hemo | | [facility] | | | CMNT | | | LABORATORY | | | | | | SERVICES, | | | | | | CORE | | + + + + + + | AST CMNT | Sl Hemo | | [facility] | | | | | | LABORATORY | | | | | | SERVICES, | | | | | | CORE | | + + + + + + + + | Specimen | + + | Blood - Blood | | (substance) | + + + + + | Narrative | Performed At | + + + | Sample hemolyzed. Results for LD, K, and AST may be inaccurate. | [facility] | | Refer to comment under test. GFR is estimated using the MDRD | LABORATORY | | equation recommended by the National Kidney Disease Education Program. | SERVICES, CORE | | Estimated GFR Interpretive Information: <60 mL/min/1.73 sq m | | | Chronic Kidney Disease <15 mL/min/1.73 sq m | | | Kidney Failure Estimated GFR greater than 60 | | | mL/min/1.73 sq m is of limited clinical value. The MDRD equation | | | is not valid in the following situations: - Patients under 18 years | | | of age - Severe malnutrition or obesity - Vegetarian diet - Rapidly | | | changing kidney function - Amputees, paraplegics, or other | | | muscle-wasting diseses | | + + + + + + + + | Performing | Address | City/State/Zipcode | Phone Number | | Organization | | | | + + + + + | [facility] | [address] [facility] | [place] [address] | | | SERVICES, CORE | [address] | | | + + + + + INR (09/15/2018 9:49 AM PDT) + + + + + + | Component | Value | Ref Range | Performed | Pathologist | | | | | At | Signature | + + + + + + | INR | 1.97 (H) | 0.90 - 1.20 INR | [facility] | | | | | | [facility] | | | | | | SERVICES, | | | | | | CORE | | + + + + + + + + | Specimen | + + | Blood - Blood | | (substance) | + + + + + | Narrative | Performed At | + + + | INR Therapeutic ranges for full anticoagulation: INR for | [facility] | | Venous Thromboembolism (2.0 - 3.0) INR INR for | LABORATORY | | most patients with mech. valves (2.5 - 3.5) INR | SERVICES, CORE | + + + + + + + + | Performing | Address | City/State/Zipcode | Phone Number | | Organization | | | | + + + + + | [facility] | [address] | [place] [address] | | | SERVICES, CORE | [address] | | | + + + + + CAPILLARY BLOOD GLUCOSE (NO CHG), POC (09/15/2018 6:26 AM PDT) + +---------+ + + + | Component | Value | Ref Range | Performed | Pathologist | | | | | At | Signature | + +---------+ + + + | BLOOD | 130 (H) | 60 - 99 mg/dL | [facility] - | | | GLUCOSE, | | | [facility] | | | POC | | | [facility] | | | | | | OF CARE | | | | | | TESTS | | + +---------+ + + + + + | Specimen | + + | | + + + + + + + | Performing | Address | City/State/Zipcode | Phone Number | | Organization | | | | + + + + + | [facility] | [address] | [place], [place] | | | [facility] | [address] | [address] | | | TESTS | | | | + + + + + PRODUCT - FRESH FROZEN PLASMA (09/15/2018 3:08 AM PDT) + + + + + + | Component | Value | Ref Range | Performed | Pathologist | | | | | At | Signature | + + + + + + | PRODUCT | PLASMA THAWED | | [facility] | | | DESCRIPTION | | | LABORATORY | | | | | | SERVICES, | | | | | | TRANSFUSION | | | | | | MEDICINE | | + + + + + + | PRODUCT | [id number] | | [facility] | | | UNIT # | | | LABORATORY | | | | | | SERVICES, | | | | | | TRANSFUSION | | | | | | MEDICINE | | + + + + + + | UNIT ABO | B | | [facility] | | | | | | LABORATORY | | | | | | SERVICES, | | | | | | TRANSFUSION | | | | | | MEDICINE | | + + + + + + | UNIT RH | POS | | [facility] | | | | | | LABORATORY | | | | | | SERVICES, | | | | | | TRANSFUSION | | | | | | MEDICINE | | + + + + + + | STATUS OF | Presumed Transfused | | [facility] | | | UNIT | | | LABORATORY | | | | | | SERVICES, | | | | | | TRANSFUSION | | | | | | MEDICINE | | + + + + + + | EXPIRATION | [id number] | | [facility] | | | DATE | | | LABORATORY | | | | | | SERVICES, | | | | | | TRANSFUSION | | | | | | MEDICINE | | + + + + + + | BLOOD TYPE | [id number] | | [facility] | | | BARCODE | | | LABORATORY | | | | | | SERVICES, | | | | | | TRANSFUSION | | | | | | MEDICINE | | + + + + + + | BLOOD | [id number] | | [facility] | | | PRODUCT | | | LABORATORY | | | CODE | | | SERVICES, | | | [...] | + + + + + | [facility] | [address] | [place] [address] | | | SERVICES, | [address] | | | | TRANSFUSION MEDICINE | | | | + + + + + PRODUCT - FRESH FROZEN PLASMA (09/15/2018 3:08 AM PDT) + + + + + + | Component | Value | Ref Range | Performed | Pathologist | | | | | At | Signature | + + + + + + | PRODUCT | PLASMA THAWED | | [facility] | | | DESCRIPTION | | | LABORATORY | | | | | | SERVICES, | | | | | | TRANSFUSION | | | | | | MEDICINE | | + + + + + + | PRODUCT | [id number] | | [facility] | | | UNIT # | | | LABORATORY | | | | | | SERVICES, | | | | | | TRANSFUSION | | | | | | MEDICINE | | + + + + + + | UNIT ABO | B | | [facility] | | | | | | LABORATORY | | | | | | SERVICES, | | | | | | TRANSFUSION | | | | | | MEDICINE | | + + + + + + | UNIT RH | POS | | [facility] | | | | | | LABORATORY | | | | | | SERVICES, | | | | | | TRANSFUSION | | | | | | MEDICINE | | + + + + + + | STATUS OF | Presumed Transfused | | [facility] | | | UNIT | | | LABORATORY | | | | | | SERVICES, | | | | | | TRANSFUSION | | | | | | MEDICINE | | + + + + + + | EXPIRATION | [id number] | | [facility] | | | DATE | | | LABORATORY | | | | | | SERVICES, | | | | | | TRANSFUSION | | | | | | MEDICINE | | + + + + + + | BLOOD TYPE | [phone] | | [facility] | | | BARCODE | | | LABORATORY | | | | | | SERVICES, | | | | | | TRANSFUSION | | | | | | MEDICINE | | + + + + + + | BLOOD | [id number] | | [facility] | | | PRODUCT | | | LABORATORY | | | CODE | | | SERVICES, | | | [...] | + + + + + | [facility] | [address] | [place] [address] | | | SERVICES, | [address] | | | | TRANSFUSION MEDICINE | | | | + + + + + BLOOD GASES, ARTERIAL - LAB (09/15/2018 2:22 AM PDT) + + + + + + | Component | Value | Ref Range | Performed | Pathologist | | | | | At | Signature | + + + + + + | FIO2 | 0.27 | | [facility] | | | ARTERIAL | | | LABORATORY | | | | | | SERVICES, | | | | | | CORE | | + + + + + + | PH ARTERIAL | 7.29 (L) | 7.37 - 7.44 | [facility] | | | | | | LABORATORY | | | | | | SERVICES, | | | | | | CORE | | + + + + + + | PCO2 | 63 (H) | 32 - 43 mmHg | [facility] | | | ARTERIAL | | | LABORATORY | | | | | | SERVICES, | | | | | | CORE | | + + + + + + | PO2 | 103 | 72 - 104 mmHg | [facility] | | | ARTERIAL | | | LABORATORY | | | | | | SERVICES, | | | | | | CORE | | + + + + + + | HCO3 | 30 (H) | 21 - 28 mmol/L | [facility] | | | ARTERIAL | | | LABORATORY | | | | | | SERVICES, | | | | | | CORE | | + + + + + + | TOTAL CO2 | 32 (H) | 22 - 28 mmol/L | [facility] | | | ARTERIAL | | | LABORATORY | | | | | | SERVICES, | | | | | | CORE | | + + + + + + | BASE EXCESS | 1.9 | -2.0 - 2.0 | [facility] | | | ARTERIAL | | mmol/L | LABORATORY | | | | | | SERVICES, | | | | | | CORE | | + + + + + + | O2 SAT, | 97.3 | 92.0 - 98.0 % | [facility] | | | ARTERIAL | | | LABORATORY | | | | | | SERVICES, | | | | | | CORE | | + + + + + + | PAO2/FIO2 | 381 | >300 mmHg | [facility] | | | RATIO | | | LABORATORY | | | | | | SERVICES, | | | | | | CORE | | + + + + + + + + | Specimen | + + | Blood - Blood | | (substance) | + + + + + + + | Performing | Address | City/State/Zipcode | Phone Number | | Organization | | | | + + + + + | [facility] | [address] | [place] [address] | | | SERVICES, CORE | [address] | | | + + + + + ANTIBODY SCREEN (09/15/2018 1:27 AM PDT) + + + + + + [...] + + | Blood - Blood | | (substance) | + + + + + + + | Performing | Address | City/State/Zipcode | Phone Number | | Organization | | | | + + + + + | [facility] | [address] | [place] [address] | | | SERVICES, | [address] | | | | TRANSFUSION MEDICINE | | | | + + + + + ABO & RH TYPE (09/15/2018 1:27 AM PDT) + + + + + + [...] + + | Blood - Blood | | (substance) | + + + + + + + | Performing | Address | City/State/Zipcode | Phone Number | | Organization | | | | + + + + + | [facility] [employer] | [address] | [place] [address] | | | SERVICES, | [address] | | | | TRANSFUSION MEDICINE | | | | + + + + + CBC (HEMOGRAM) ONLY (09/15/2018 1:27 AM PDT) + + + + + + | Component | Value | Ref Range | Performed | Pathologist | | | | | At | Signature | + + + + + + | WHITE CELL | 7.39 | 3.50 - 10.80 | [facility] | | | COUNT | | K/cu mm | LABORATORY | | | | | | SERVICES, | | | | | | CORE | | + + + + + + | RED CELL | 4.11 | 4.00 - 5.20 | [facility] | | | COUNT | | M/cu mm | LABORATORY | | | | | | SERVICES, | | | | | | CORE | | + + + + + + | HEMOGLOBIN | 12.8 | 12.0 - 16.0 | [facility] | | | | | g/dL | LABORATORY | | | | | | SERVICES, | | | | | | CORE | | + + + + + + | HEMATOCRIT | 40.3 | 36.0 - 46.0 % | [facility] | | | | | | LABORATORY | | | | | | SERVICES, | | | | | | CORE | | + + + + + + | MCV | 98.1 | 80.0 - 100.0 fL | [facility] | | | | | | LABORATORY | | | | | | SERVICES, | | | | | | CORE | | + + + + + + | MCHC | 31.8 (L) | 32.0 - 36.0 | [facility] | | | | | g/dL | LABORATORY | | | | | | SERVICES, | | | | | | CORE | | + + + + + + | RDW SD | 57.0 (H) | 35.1 - 46.3 fL | [facility] | | | | | | LABORATORY | | | | | | SERVICES, | | | | | | CORE | | + + + + + + | PLATELET | 234 | 150 - 400 K/cu | [facility] | | | COUNT | | mm | LABORATORY | | | | | | SERVICES, | | | | | | CORE | | + + + + + + | MPV | 9.7 | 9.7 - 12.3 fL | [facility] [...] + + | Blood - Blood | | (substance) | + + + + + + + | Performing | Address | City/State/Zipcode | Phone Number | | Organization | | | | + + + + + | [facility] | [address] | [place] [address] | | | SERVICES, CORE | [address] | | | + + + + + COAGULOPATHY PANEL (INR,APTT,FIBRINOGEN) (09/15/2018 1:27 AM PDT) + + + + + + | Component | Value | Ref Range | Performed | Pathologist | | | | | At | Signature | + + + + + + | INR | 2.33 (H) | 0.90 - 1.20 INR | [facility] | | | | | | LABORATORY | | | | | | SERVICES, | | | | | | CORE | | + + + + + + | APTT | 34.1 | 26.0 - 36.0 | [facility] | | | | | seconds | LABORATORY | | | | | | SERVICES, | | | | | | CORE | | + + + + + + | FIBRINOGEN | 444 | 150 - 450 mg/dL | [facility] | | | LEVEL | | | LABORATORY | | | | | | SERVICES, | | | | | | CORE | | + + + + + + + + | Specimen | + + | Blood - Blood | | (substance) | + + + + + | Narrative | Performed At | + + + | INR Therapeutic ranges for full anticoagulation: INR for | [facility] | | Venous Thromboembolism (2.0 - 3.0) INR INR for | LABORATORY | | most patients with mech. valves (2.5 - 3.5) INR APTT values for | SERVICES, CORE | | monitoring heparin therapy may be affected by specimens processed >1 | | | hour after collection. APTT Therapeutic Range: | | | (75 - 120) sec Heparin levels of 0.35 - 0.7 U/mL | | + + + + + + + + | Performing | Address | City/State/Zipcode | Phone Number | | Organization | | | | + + + + + | [facility] | [address] | [place] [address] | | | SERVICES, CORE | [address] | | | + + + + + COMPLETE METABOLIC SET (NA,K,CL,CO2,BUN,CREAT,GLUC,CA,AST,ALT,BILI TOTAL,ALK PHOS,ALB,PROT TOTAL) (09/15/2018 1:27 AM PDT) + + + + + + | Component | Value | Ref Range | Performed | Pathologist | | | | | At | Signature | + + + + + + | GLUCOSE, | 134 (H) | 70 - 99 mg/dL | [facility] | | [...] + + + + | CREATININE | 0.58 (L) | 0.60 - 1.10 | [facility] | | | PLASMA | | mg/dL | LABORATORY | | | (LAB) | | | SERVICES, | | | | | | CORE | | + + + + + + | EGFR | >60 | >60 mL/min | [facility] | | | - | | | LABORATORY | | | MALTESE | | | SERVICES, | | | | | | CORE | | + + + + + + | EGFR NON | >60 | >60 mL/min | [facility] | | | -ALIZA | | | LABORATORY | | | RICAN | | | SERVICES, | | | | | | CORE | | + + + + + + | SODIUM, | 139 | 136 - 145 | [facility] | | | PLASMA | | mmol/L | LABORATORY | | | (LAB) | | | SERVICES, | | | | | | CORE | | + + + + + + | POTASSIUM, | 4.2 | 3.4 - 5.0 | [facility] | | | PLASMA | | mmol/L | LABORATORY | | | (LAB) | | | SERVICES, | | | | | | CORE | | + + + + + + | CHLORIDE, | 105 | 97 - 108 mmol/L | [facility] | | | PLASMA | | | LABORATORY | | | (LAB) | | | SERVICES, | | | | | | CORE | | + + + + + + | TOTAL CO2, | 32 | 21 - 32 mmol/L | [facility] | | | PLASMA | | | LABORATORY | | | (LAB) | | | SERVICES, | | | | | | CORE | | + + + + + + | CALCIUM, | 8.6 | 8.6 - 10.2 | [facility] | | | PLASMA | | mg/dL | LABORATORY | | | (LAB) | | | SERVICES, | | | | | | CORE | | + + + + + + | CALCIUM(ALB | 9.4 | 8.6 - 10.2 | [facility] | | | CORRECTED) | | mg/dL | LABORATORY | | | | | | SERVICES, | | | | | | CORE | | + + + + + + | BILIRUBIN | 1.6 (H) | 0.3 - 1.2 mg/dL | [facility] | | | TOTAL | | | LABORATORY | | | | | | SERVICES, | | | | | | CORE | | + + + + + + | TOTAL | 6.2 (L) | 6.4 - 8.2 g/dL | [facility] | | | PROTEIN, | | | LABORATORY | | | PLASMA | | | SERVICES, | | | (LAB) | | | CORE | | + + + + + + | ALBUMIN, | 3.0 (L) | 3.5 - 4.7 g/dL | [facility] | | | PLASMA | | | LABORATORY | | | (LAB) | | | SERVICES, | | | | | | CORE | | + + + + + + | ALK PHOS | 407 (H) | 42 - 98 U/L | [facility] | | | | | | LABORATORY | | | | | | SERVICES, | | | | | | CORE | | + + + + + + | AST(SGOT) | 1,053 (H) | <=41 U/L | [facility] | | | | | | LABORATORY | | | | | | SERVICES, | | | | | | CORE | | + + + + + + | ALT (SGPT) | 525 (H) | <=60 U/L | [facility] | | | | | | LABORATORY | | | | | | SERVICES, | | | | | | CORE | | + + + + + + | ANION GAP | 2 (L) | 4 - 11 mmol/L | [facility] | | | | | | LABORATORY | | | | | | SERVICES, | | | | | | CORE | | + + + + + + | ANION | 4 | 4 - 11 mmol/L | [facility] [...] + + | Blood - Blood | | (substance) | + + + + + | [...] | | Kidney Failure Estimated GFR greater than 60 mL/min/1.73 sq m is of | | | limited clinical value. The MDRD equation is not valid in the | | | following situations: - Patients under 18 years of age - Severe | | | malnutrition or obesity - Vegetarian diet - Rapidly changing kidney | | | function - Amputees, paraplegics, or other muscle-wasting diseses | | + + + + + + + + | Performing | Address | City/State/Zipcode | Phone Number | | Organization | | | | + + + + + | [facility] | [address] | [place] [address] | | | SERVICES, CORE | [address] | | | + + + + + BLOOD GASES, ARTERIAL - LAB (09/15/2018 12:54 AM PDT) + + + + + + | Component | Value | Ref Range | Performed | Pathologist | | | | | At | Signature | + + + + + + | FIO2 | 0.27 | | [facility] | | | ARTERIAL | | | LABORATORY | | | | | | SERVICES, | | | | | | CORE | | + + + + + + | PH ARTERIAL | 7.28 (L) | 7.37 - 7.44 | [facility] | | | | | | LABORATORY | | | | | | SERVICES, | | | | | | CORE | | + + + + + + | PCO2 | 65 (H) | 32 - 43 mmHg | [facility] | | | ARTERIAL | | | LABORATORY | | | | | | SERVICES, | | | | | | CORE | | + + + + + + | PO2 | 98 | 72 - 104 mmHg | [facility] | | | ARTERIAL | | | LABORATORY | | | | | | SERVICES, | | | | | | CORE | | + + + + + + | HCO3 | 30 (H) | 21 - 28 mmol/L | [facility] | | | ARTERIAL | | | LABORATORY | | | | | | SERVICES, | | | | | | CORE | | + + + + + + | TOTAL CO2 | 32 (H) | 22 - 28 mmol/L | [facility] | | | ARTERIAL | | | LABORATORY | | | | | | SERVICES, | | | | | | CORE | | + + + + + + | BASE EXCESS | 2.2 (H) | -2.0 - 2.0 | [facility] | | | ARTERIAL | | mmol/L | LABORATORY | | | | | | SERVICES, | | | | | | CORE | | + + + + + + | O2 SAT, | 96.9 | 92.0 - 98.0 % | [facility] | | | ARTERIAL | | | LABORATORY | | | | | | SERVICES, | | | | | | CORE | | + + + + + + | PAO2/FIO2 | 363 | >300 mmHg | [facility] | | | RATIO | | | LABORATORY | | | | | | SERVICES, | | | | | | CORE | | + + + + + + + + | Specimen | + + | Blood - Blood | | (substance) | + + + + + + + | Performing | Address | City/State/Zipcode | Phone Number | | Organization | | | | + + + + + | [facility] | [address] | [place] [address] | | | SERVICES, CORE | [address] | | | + + + + + CAPILLARY BLOOD GLUCOSE (NO CHG), POC (09/14/2018 11:54 PM PDT) + +---------+ + + + | Component | Value | Ref Range | Performed | Pathologist | | | | | At | Signature | + +---------+ + + + | BLOOD | 141 (H) | 60 - 99 mg/dL | [facility] - | | | GLUCOSE, | | | [facility] | | | POC | | | [facility] | | | | | | OF CARE | | | | | | TESTS | | + +---------+ + + + + + | Specimen | + + | | + + + + + + + | Performing | Address | City/State/Zipcode | Phone Number | | Organization | | | | + + + + + | [facility] | [address] | [place], [place] | | | [facility] | [address] | [address] | | | TESTS | | | | + + + + + documented in this encounter Visit Diagnoses + + | Diagnosis | + + | Fracture of distal end of right femur (HCC) - Primary | + + | Closed bicondylar fracture of right femur, initial encounter (HCC) | + + | Closed fracture of distal end of right femur, unspecified fracture morphology, initial | | encounter (HCC) | + + | Obesity with alveolar hypoventilation (HCC) | + + | Atrial fibrillation (HCC) Atrial fibrillation | + + | Diabetic nephropathy associated with type 2 diabetes mellitus (HCC) | + + | MRSA cellulitis Cellulitis and abscess of unspecified site | + + | Hypothyroid Unspecified hypothyroidism | + + documented in this encounter Administered Medications + +--------+ + +------+------+ | Medication Order | MAR | Action | Dose | Rate | Site | | | Action | Date | | | | + +--------+ + +------+------+ | acetaminophen (TYLENOL) tablet | Given | 09/20/19 | 1,000 mg | | | | 1,000 mg 1,000 mg, oral, EVERY 8 | | 19 5:55 | | | | | HOURS, First dose on Thu09/17/18 | | AM PDT | | | | | at 1400, Until Discontinued | | | | | | + +--------+ + +------+------+ +-------+ + +---+---+ | Given | 09/19/19 | 1,000 mg | | | | | 19 8:07 | | | | | | PM PDT | | | | +-------+ + +---+---+ | Given | 09/19/19 | 1,000 mg | | | | | 19 2:02 | | | | | | PM PDT | | | | +-------+ + +---+---+ +---+---+ | | | +---+---+ + +-------+ +--------+---+---+ | acetaminophen (TYLENOL) tablet | Given | 09/18/19 | 650 mg | | | | 650 mg 650 mg, oral, EVERY 4 | | 19 4:02 | | | | | HOURS NEEDED, Starting Wed | | AM PDT | | | | | 09/15/18 at 0102, Until Fri | | | | | | | 09/17/18 at 0823, mild pain, first | | | | | | | line, multimodal pain control | | | | | | + +-------+ +--------+---+---+ +-------+ +--------+---+---+ | Given | 09/18/19 | 650 mg | | | | | 19 12:04 | | | | | | AM PDT | | | | +-------+ +--------+---+---+ | Given | 09/17/19 | 650 mg | | | | | 19 8:03 | | | | | | PM PDT | | | | +-------+ +--------+---+---+ +---+---+ | | | +---+---+ + +-------+ +--------+---+---+ | acetaminophen (TYLENOL) tablet | Given | 09/22/19 | 650 mg | | | | 650 mg 650 mg, oral, EVERY 6 | | 19 12:07 | | | | | HOURS NEEDED, Starting Sun | | PM PDT | | | | | 09/19/18 at 0845, Until Tue | | | | | | | 09/21/18 at 1850, multimodal pain | | | | | | | control, mild pain | | | | | | + +-------+ +--------+---+---+ +-------+ +--------+---+---+ | Given | 09/22/19 | 650 mg | | | | | 19 5:12 | | | | | | AM PDT | | | | +-------+ +--------+---+---+ | Given | 09/21/19 | 650 mg | | | | | 19 10:09 | | | | | | PM PDT | | | | +-------+ +--------+---+---+ +---+---+ | | | +---+---+ + +-------+ +---------+---+---+ | beclomethasone (QVAR) 80 | Given | 09/22/19 | 2 puffs | | | | mcg/actuation inhaler 2 puff 2 | | 19 10:13 | | | | | puff, inhalation, TWICE DAILY, | | AM PDT | | | | | First dose on Thu09/15/18 at | | | | | | | 1015, Until Discontinued | | | | | | + +-------+ +---------+---+---+ +-------+ +---------+---+---+ | Given | 09/21/19 | 2 puffs | | | | | 19 8:29 | | | | | | AM PDT | | | | +-------+ +---------+---+---+ | Given | 09/20/19 | 2 puffs | | | | | 19 9:25 | | | | | | PM PDT | | | | +-------+ +---------+---+---+ +---+---+ | | | +---+---+ + +-------+ +-------+---+---+ | bisacodyl (DULCOLAX) | Given | 09/20/19 | 10 mg | | | | suppository 10 mg 10 mg, rectal, | | 19 11:12 | | | | | DAILY, First dose (after last | | AM PDT | | | | | modification) on Thu09/18/18 at | | | | | | | 1045, Until Discontinued | | | | | | + +-------+ +-------+---+---+ +---+---+ | | | +---+---+ + +-------+ +--------+---+---+ | buPROPion XL (WELLBUTRIN-XL) | Given | 09/22/19 | 450 mg | | | | tablet 450 mg 450 mg, oral, | | 19 10:08 | | | | | DAILY, First dose on Thu09/15/18 | | AM PDT | | | | | at 1645, Until Discontinued | | | | | | + +-------+ +--------+---+---+ +-------+ +--------+---+---+ | Given | 09/21/19 | 450 mg | | | | | 19 8:29 | | | | | | AM PDT | | | | +-------+ +--------+---+---+ | Given | 09/20/19 | 450 mg | | | | | 19 10:22 | | | | | | AM PDT | | | | +-------+ +--------+---+---+ +---+---+ | | | +---+---+ + +-------+ + +---+---+ | calcium citrate (CITRACAL) | Given | 09/22/19 | 400 mg | | | | tablet 400 mg elemental 400 mg | | 19 10:09 | elementa | | | | elemental, oral, THREE TIMES | | AM PDT | l | | | | DAILY, First dose on Thu09/15/18 | | | | | | | at 0900, Until Discontinued | | | | | | + +-------+ + +---+---+ +-------+ + +---+---+ | Given | 09/21/19 | 400 mg | | | | | 19 10:08 | elementa | | | | | PM PDT | l | | | +-------+ + +---+---+ | Given | 09/21/19 | 400 mg | | | | | 19 4:42 | elementa | | | | | PM PDT | l | | | +-------+ + +---+---+ + +---+ | | | + +---+ | dextrose 50 % in water IV 25 mL | | | 25 mL, intravenous, NEEDED, | | | Starting Thu09/15/18 at 1417, | | | Until Thu09/21/18 at 1850, CBG | | | less than 70 mg/dL if patient | | | unable to take PO, per Adult | | | Hypoglycemia Protocol | | + +---+ | | | + +---+ + +-------+ +--------+---+---+ | dilTIAZem CD 24 hour release | Given | 09/21/19 | 360 mg | | | | (CARDIZEM CD) capsule 360 mg 360 | | 19 10:08 | | | | | mg, oral, AT BEDTIME, First dose | | PM PDT | | | | | on Thu09/15/18 at 2200, Until | | | | | | | Discontinued | | | | | | + +-------+ +--------+---+---+ +-------+ +--------+---+---+ | Given | 09/20/19 | 360 mg | | | | | 19 9:27 | | | | | | PM PDT | | | | +-------+ +--------+---+---+ | Given | 09/19/19 | 360 mg | | | | | 19 10:38 | | | | | | PM PDT | | | | +-------+ +--------+---+---+ +---+---+ | | | +---+---+ + +-------+ +-------+---+---------+ | enoxaparin (LOVENOX) injection | Given | 09/22/19 | 60 mg | | Abdomen | | 60 mg 60 mg, subcutaneous, EVERY | | 19 10:07 | | | | | 12 HOURS, First dose (after last | | AM PDT | | | | | modification) on Thu09/17/18 at | | | | | | | 2100, Until Discontinued | | | | | | + +-------+ +-------+---+---------+ +-------+ +-------+---+---------+ | Given | 09/21/19 | 60 mg | | Abdomen | | | 19 10:08 | | | | | | PM PDT | | | | +-------+ +-------+---+---------+ | Given | 09/21/19 | 60 mg | | Abdomen | | | 19 8:29 | | | | | | AM PDT | | | | +-------+ +-------+---+---------+ +---+---+ | | | +---+---+ + +-------+ +---------+---+---+ | ergocalciferol (VITAMIN D2, | Given | 09/21/19 | 50,000 | | | | DRISDOL) capsule 50,000 Units | | 19 8:29 | Units | | | | 50,000 Units, oral, EVERY | | AM PDT | | | | | MO-WE-FR (Once per day on Thu | | | | | | | Thu), First dose on Thu09/17/18 | | | | | | | at 0900, Until Discontinued | | | | | | + +-------+ +---------+---+---+ +-------+ +---------+---+---+ | Given | 09/18/19 | 50,000 | | | | | 19 8:31 | Units | | | | | AM PDT | | | | +-------+ +---------+---+---+ +---+---+ | | | +---+---+ + +-------+ +--------+---+---+ | fentaNYL (SUBLIMAZE) injection | Given | 09/17/19 | 25 mcg | | | | 25-50 mcg 25-50 mcg, | | 19 3:56 | | | | | intravenous, POSTPROCEDURE PRN, 8 | | PM PDT | | | | | doses, Starting [place] 09/16/18 at | | | | | | | 1242, Until [place] 09/16/18 at 1656, | | | | | | | severe pain while in Phase I | | | | | | | Recovery | | | | | | + +-------+ +--------+---+---+ +-------+ +--------+---+---+ | Given | 09/17/19 | 50 mcg | | | | | 19 3:09 | | | | | | PM PDT | | | | +-------+ +--------+---+---+ | Given | 09/17/19 | 25 mcg | | | | | 19 2:56 | | | | | | PM PDT | | | | +-------+ +--------+---+---+ +---+---+ | | | +---+---+ + +-------+ + +---+---+ | ferrous sulfate tablet 65 mg | Given | 09/22/19 | 65 mg | | | | elemental 65 mg elemental (325 | | 19 10:12 | elementa | | | | mg total salt), oral, TWICE | | AM PDT | l | | | | DAILY, First dose on Thu09/15/18 | | | | | | | at 1030, Until Discontinued | | | | | | + +-------+ + +---+---+ +-------+ + +---+---+ | Given | 09/21/19 | 65 mg | | | | | 19 10:09 | elementa | | | | | PM PDT | l | | | +-------+ + +---+---+ | Given | 09/21/19 | 65 mg | | | | | 19 8:29 | elementa | | | | | AM PDT | l | | | +-------+ + +---+---+ + +---+ | | | + +---+ | glucagon (GLUCAGEN) injection 1 | | | mg 1 mg, intramuscular, | | | NEEDED, Starting Thu09/15/18 at | | | 1417, Until Thu09/21/18 at 1850, | | | CBG less than 70 mg/dL per Adult | | | Hypoglycemia Protocol | | + +---+ | | | + +---+ | glucose chewable tablet 16 g | | | 16 g, oral, NEEDED, Starting | | | Thu09/15/18 at 1417, Until Thu | | | 09/21/18 at 1850, CBG less than 70 | | | mg/dL per Adult Hypoglycemia | | | Protocol | | + +---+ | | | + +---+ + +-------+ +--------+---+---+ | HYDROmorphone (DILAUDID) | Given | 09/17/19 | 0.3 mg | | | | injection 0.2-0.5 mg 0.2-0.5 mg, | | 19 3:40 | | | | | intravenous, POSTPROCEDURE PRN, | | PM PDT | | | | | Starting [facility] 09/16/18 at 1242, | | | | | | | Until [place] 09/16/18 at 1656, | | | | | | | moderate pain while in Phase I | | | | | | | Recovery | | | | | | + +-------+ +--------+---+---+ +-------+ +--------+---+---+ | Given | 09/17/19 | 0.5 mg | | | | | 19 3:27 | | | | | | PM PDT | | | | +-------+ +--------+---+---+ | Given | 09/17/19 | 0.2 mg | | | | | 19 3:14 | | | | | | PM PDT | | | | +-------+ +--------+---+---+ +---+---+ | | | +---+---+ + +-------+ +--------+---+---+ | HYDROmorphone (DILAUDID) | Given | 09/17/19 | 0.7 mg | | | | injection 0.7 mg 0.7 mg, | | 19 3:29 | | | | | intravenous, ONCE, 1 dose, [place] | | AM PDT | | | | | 09/16/18 at 0330 | | | | | | + +-------+ +--------+---+---+ +---+---+ | | | +---+---+ + +-------+ +---------+---+ + | insulin lispro (HUMALOG) | Given | 09/22/19 | 1 Units | | Left Arm | | injection 1-16 Units 1-16 Units, | | 19 10:58 | | | | | subcutaneous, FOUR TIMES DAILY, | | AM PDT | | | | | First dose on Thu09/15/18 at | | | | | | | 1430, Until Discontinued | | | | | | + +-------+ +---------+---+ + +-------+ +---------+---+--------+ | Given | 09/21/19 | 1 Units | | Right | | | 19 2:31 | | | Arm | | | PM PDT | | | | +-------+ +---------+---+--------+ | Given | 09/21/19 | 1 Units | | Right | | | 19 10:24 | | | Arm | | | AM PDT | | | | +-------+ +---------+---+--------+ +---+---+ | | | +---+---+ + +-------+ +---------+---+---+ | lactobacillus rhamnosus (GG) | Given | 09/22/19 | 1 | | | | (CULTURELLE) 15 billion cell | | 19 10:11 | capsule | | | | capsule 1 capsule 1 capsule, | | AM PDT | | | | | oral, DAILY, 5 doses, First dose | | | | | | | on 09/21/18 at 0815, Last dose | | | | | | | on 09/25/18 at 0900 | | | | | | + +-------+ +---------+---+---+ +---+---+ | | | +---+---+ + +-------+ +--------+---+---+ | levothyroxine tablet 88 mcg 88 | Given | 09/22/19 | 88 mcg | | | | mcg, oral, DAILY, First dose on | | 19 5:19 | | | | | 09/15/18 at 0630, Until | | AM PDT | | | | | Discontinued | | | | | | + +-------+ +--------+---+---+ +-------+ +--------+---+---+ | Given | 09/21/19 | 88 mcg | | | | | 19 7:05 | | | | | | AM PDT | | | | +-------+ +--------+---+---+ | Given | 09/20/19 | 88 mcg | | | | | 19 6:40 | | | | | | AM PDT | | | | +-------+ +--------+---+---+ +---+---+ | | | +---+---+ + +-------+ +--------+---+---+ | magnesium citrate liquid 296 mL | Given | 09/20/19 | 296 mL | | | | 296 mL, oral, ONCE, 1 dose, Sun | | 19 1:17 | | | | | 09/19/18 at 0930 | | PM PDT | | | | + +-------+ +--------+---+---+ +---+---+ | | | +---+---+ + +-------+ +---+---+---+ | menthol-zinc oxide (CALAZIME) | Given | 09/21/19 | | | | | topical paste 0.2%-16.5% | | 19 3:09 | | | | | topical, THREE TIMES DAILY | | AM PDT | | | | | NEEDED, Starting 09/19/18 at | | | | | | | 1437, Until 09/21/18 at 1850, | | | | | | | skin irritation/breakdown | | | | | | + +-------+ +---+---+---+ +-------+ +---+---+---+ | Given | 09/20/19 | | | | | | 19 9:15 | | | | | | PM PDT | | | | +-------+ +---+---+---+ | Given | 09/20/19 | | | | | | 19 6:05 | | | | | | PM PDT | | | | +-------+ +---+---+---+ +---+---+ | | | +---+---+ + +-------+ +-------+---+---+ | metoprolol succinate | Given | 09/21/19 | 25 mg | | | | (TOPROL-XL) tablet 25 mg 25 mg, | | 19 10:09 | | | | | oral, AT BEDTIME, First dose on | | PM PDT | | | | | 09/15/18 at 2200, Until | | | | | | | Discontinued | | | | | | + +-------+ +-------+---+---+ +-------+ +-------+---+---+ | Given | 09/20/19 | 25 mg | | | | | 19 9:26 | | | | | | PM PDT | | | | +-------+ +-------+---+---+ | Given | 09/19/19 | 25 mg | | | | | 19 8:07 | | | | | | PM PDT | | | | +-------+ +-------+---+---+ + +---+ | | | + +---+ | naloxone (NARCAN) injection 1 | | | dose, Starting Thu09/15/18 at | | | 0002, Until Thu09/15/18 at 0025 | | + +---+ | | | + +---+ + +-------+ +---------+---+---+ | naloxone (NARCAN) injection | Given | 09/16/19 | 0.04 mg | | | | intravenous, NEEDED, Starting | | 19 12:30 | | | | | 09/15/18 at 0103, Until Thu | | AM PDT | | | | | 09/21/18 at 1850, over sedation | | | | | | + +-------+ +---------+---+---+ +-------+ +---------+---+---+ | Given | 09/16/19 | 0.04 mg | | | | | 19 12:25 | | | | | | AM PDT | | | | +-------+ +---------+---+---+ +---+---+ | | | +---+---+ + +-------+ +--------+---+---+ | nitrofurantoin | Given | 09/22/19 | 100 mg | | | | monohydrate/macrocrystal | | 19 10:08 | | | | | (MACROBID) capsule 100 mg 100 | | AM PDT | | | | | mg, oral, TWICE DAILY, 10 doses, | | | | | | | First dose on Thu09/21/18 at | | | | | | | 0815, Last dose on Thu09/25/18 at | | | | | | | 2100 | | | | | | + +-------+ +--------+---+---+ +---+---+ | | | +---+---+ + +-------+ +---+---+---+ | nystatin (MYCOSTATIN) powder | Given | 09/22/19 | | | | | topical, TWICE DAILY, First dose | | 19 10:12 | | | | | on Thu09/17/18 at 2100, Until | | AM PDT | | | | | Discontinued | | | | | | + +-------+ +---+---+---+ +-------+ +---+---+---+ | Given | 09/21/19 | | | | | | 19 10:14 | | | | | | PM PDT | | | | +-------+ +---+---+---+ | Given | 09/21/19 | | | | | | 19 8:29 | | | | | | AM PDT | | | | +-------+ +---+---+---+ +---+---+ | | | +---+---+ + +-------+ +-------+---+---+ | omeprazole (PRILOSEC) capsule | Given | 09/22/19 | 20 mg | | | | 20 mg 20 mg, oral, DAILY, First | | 19 10:09 | | | | | dose on Thu09/15/18 at 0900, | | AM PDT | | | | | Until Discontinued | | | | | | + +-------+ +-------+---+---+ +-------+ +-------+---+---+ | Given | 09/21/19 | 20 mg | | | | | 19 8:29 | | | | | | AM PDT | | | | +-------+ +-------+---+---+ | Given | 09/20/19 | 20 mg | | | | | 19 10:22 | | | | | | AM PDT | | | | +-------+ +-------+---+---+ +---+---+ | | | +---+---+ + +-------+ +-------+---+---+ | oxyCODONE (immediate release) | Given | 09/22/19 | 15 mg | | | | (ROXICODONE) tablet 10-15 mg | | 19 11:31 | | | | | 10-15 mg, oral, EVERY 4 HOURS | | AM PDT | | | | | NEEDED, Starting Thu09/15/18 at | | | | | | | 1507, Until Thu09/21/18 at 1850, | | | | | | | severe pain, unresponsive to | | | | | | | non-opioid medication | | | | | | + +-------+ +-------+---+---+ +-------+ +-------+---+---+ | Given | 09/22/19 | 15 mg | | | | | 19 5:13 | | | | | | AM PDT | | | | +-------+ +-------+---+---+ | Given | 09/22/19 | 15 mg | | | | | 19 1:54 | | | | | | AM PDT | | | | +-------+ +-------+---+---+ +---+---+ | | | +---+---+ + +-------+ +------+---+---+ | oxyCODONE (immediate release) | Given | 09/16/19 | 5 mg | | | | (ROXICODONE) tablet 5-10 mg 5-10 | | 19 12:26 | | | | | mg, oral, EVERY 4 HOURS | | PM PDT | | | | | NEEDED, Starting Thu09/15/18 at | | | | | | | 0103, Until Thu09/15/18 at 1453, | | | | | | | severe pain, unresponsive to | | | | | | | non-opioid medication | | | | | | + +-------+ +------+---+---+ +-------+ +------+---+---+ | Given | 09/16/19 | 5 mg | | | | | 19 10:10 | | | | | | AM PDT | | | | +-------+ +------+---+---+ | Given | 09/16/19 | 5 mg | | | | | 19 5:36 | | | | | | AM PDT | | | | +-------+ +------+---+---+ +---+---+ | | | +---+---+ + +-------+ +------+---+---+ | oxyCODONE (immediate release) | Given | 09/16/19 | 5 mg | | | | (ROXICODONE) tablet 5-10 mg 5-10 | | 19 3:02 | | | | | mg, oral, EVERY 4 HOURS | | PM PDT | | | | | NEEDED, Starting Thu09/15/18 at | | | | | | | 1457, Until Thu09/15/18 at 1508, | | | | | | | severe pain, unresponsive to | | | | | | | non-opioid medication | | | | | | + +-------+ +------+---+---+ +---+---+ | | | +---+---+ + +-------+ +--------+---+---+ | phytonadione (MEPHYTON) tablet | Given | 09/16/19 | 2.5 mg | | | | 2.5 mg 2.5 mg, oral, ONCE, 1 | | 19 2:45 | | | | | dose, 09/15/18 at 1500 | | PM PDT | | | | + +-------+ +--------+---+---+ +---+---+ | | | +---+---+ + +-------+ +------+---+---+ | phytonadione (vitamin K1) | Given | 09/16/19 | 5 mg | | | | (VITAMIN K, MEPHYTON) tablet 5 mg | | 19 4:37 | | | | | 5 mg, oral, ONCE, 1 dose, Wed | | AM PDT | | | | | 09/15/18 at 0345 | | | | | | + +-------+ +------+---+---+ +---+---+ | | | +---+---+ + +-------+ +--------+---+---+ | pramipexole (MIRAPEX) tablet | Given | 09/22/19 | 1.5 mg | | | | 1.5 mg 1.5 mg, oral, TWICE | | 19 10:11 | | | | | DAILY, First dose on Thu09/20/18 | | AM PDT | | | | | at 2100, Until Discontinued | | | | | | + +-------+ +--------+---+---+ +-------+ +--------+---+---+ | Given | 09/21/19 | 1.5 mg | | | | | 19 10:09 | | | | | | PM PDT | | | | +-------+ +--------+---+---+ +---+---+ | | | +---+---+ + +-------+ + +---+---+ | senna-docusate (SENOKOT S) | Given | 09/22/19 | 1 tablet | | | | 8.6-50 mg 1 tablet 1 tablet, | | 19 10:12 | | | | | oral, TWICE DAILY, First dose on | | AM PDT | | | | | 09/15/18 at 0900, Until | | | | | | | Discontinued | | | | | | + +-------+ + +---+---+ +-------+ + +---+---+ | Given | 09/21/19 | 1 tablet | | | | | 19 10:09 | | | | | | PM PDT | | | | +-------+ + +---+---+ | Given | 09/21/19 | 1 tablet | | | | | 19 8:29 | | | | | | AM PDT | | | | +-------+ + +---+---+ +---+---+ | | | +---+---+ + +---------+ + +---+---+ | vancomycin (VANCOCIN) IV 1,000 | New Bag | 09/18/19 | 1,000 mg | | | | mg 1,000 mg, intravenous, EVERY | | 19 8:28 | | | | | 12 HOURS, 2 doses, First dose on | | AM PDT | | | | | [place] 09/16/18 at 1800, Last dose on | | | | | | | 09/17/18 at 0800 | | | | | | + +---------+ + +---+---+ +---------+ + +---+---+ | New Bag | 09/17/19 | 1,000 mg | | | | | 19 8:08 | | | | | | PM PDT | | | | +---------+ + +---+---+ +---+---+ | | | +---+---+ + +-------+ +-------+---+---+ | warfarin (COUMADIN) tablet 10 | Given | 09/21/19 | 10 mg | | | | mg 10 mg, oral, EVERY EVENING, | | 19 10:08 | | | | | First dose (after last | | PM PDT | | | | | modification) on 09/18/18 at | | | | | | | 2100, Until Discontinued | | | | | | + +-------+ +-------+---+---+ +-------+ +-------+---+---+ | Given | 09/20/19 | 10 mg | | | | | 19 9:27 | | | | | | PM PDT | | | | +-------+ +-------+---+---+ | Given | 09/19/19 | 10 mg | | | | | 19 8:07 | | | | | | PM PDT | | | | +-------+ +-------+---+---+ +---+---+ | | | +---+---+ documented in this encounter
--- OUTSIDE RECORDS SUMMARY | ~2019-06-14 | XMS | Encounter Summary ---
Demographics + + + | Address | [address] | | | [place] [address] | + + + | Home Phone | | + + + | Preferred Language | Unknown | + + + | Marital Status | Single | + + + | Protestant Affiliation | Unknown | + + + [...] Team Providers + +------+ + | Care [place] Name | Role | Phone | + +------+ + | Iqra Peralta MD | PCP | | + +------+ + Encounter Details +--------+ + + + + | Date | Type | Department | Care Team | Description | +--------+ + + + + | 03/04/ | Hospital | [facility] | Conversion | | | 2018 | Encounter | [facility] | Transaction, | | | | | CLINIC [address] | Provider Unknown | | | | | [place], [place] | [phone] | | | | | [address] | | | | | | [phone] | | | +--------+ + + + [...] + +---------+ + | No | 0 Standard drinks | 0.0 | | | | or equivalent | | | + + +---------+ + [...] + + + + | Weight | 177 kg (390 lb 3.4 | 03/04/2018 4:46 PM | | | | oz) | PDT | | + + + + + | Height | 160 cm (5' 3") | 03/04/2018 4:46 PM | | | | | PDT | | + + + + + | Body Mass Index | 69.12 | 03/04/2018 4:46 PM | | | | | PDT | | + + + + + documented in this encounter Medications at Time of Discharge + + + +---------+ + + | Medication | Sig | Dispensed | Refills | Start | End Date | | | | | | Date | | + + + +---------+ + + | albuterol | Inhale 2 puffs into | | 0 | | | | (VENTOLIN HFA) 90 | the lungs every 4 | | | | | | mcg/puff inhaler | hours as needed for | | | | | | | Shortness of Breath. | | | | | + + + +---------+ + + | amitriptyline | amitriptyline 25 mg | | 0 | 05/21/20 | | | (ELAVIL) 25 mg | tablet Take 2 | | | 11 | | | tabletIndications: | tablets every day by | | | | | | Proteinuria, | oral route at | | | | | | unspecified type | bedtime. | | | | | + + + +---------+ + + | atorvaSTATin | Take 10 mg by mouth | | 1 | 05/09/20 | | | (LIPITOR) 10 mg | Daily. | | | 17 | | | tablet | | | | | | + + + +---------+ + + | buPROPion | take 1 tablet by | | 0 | 10/20/19 | | | (WELLBUTRIN XL) 150 | mouth once daily | | | 18 | | | mg 24 hr | WITH 300 MG TABLET | | | | | | tabletIndications: | | | | | | | Proteinuria, | | | | | | | unspecified type | | | | | | + + + +---------+ + + | buPROPion | take 1 tablet by | | 0 | 07/08/19 | | | (WELLBUTRIN XL) 300 | mouth once daily | | | 18 | | | mg 24 hr tablet | | | | | | + + + +---------+ + + | diclofenac | apply 2 to 4 grams | | 0 | 11/06/19 | | | (VOLTAREN) 1% | to affected area OF | | | 18 | | | GELIndications: | KNEE FOR PAIN four | | | | | | Proteinuria, | times a day if | | | | | | unspecified type | needed | | | | | + + + +---------+ + + | dilTIAZem (TIAZAC) | take 1 capsule by | | 0 | 07/07/19 | | | 360 MG 24 hr | mouth at bedtime | | | 18 | | | capsule | | | | | | + + + +---------+ + + | ergocalciferol | Take 50,000 Units by | | 0 | | | | (VITAMIN D-2) 50,000 | mouth Three times a | | | | | | units capsule | week. | | | | | + + + +---------+ + + | fluconazole | take 1 tablet by | | 0 | 02/01/20 | | | (DIFLUCAN) 100 mg | mouth once daily | | | 18 | | | tablet | | | | | | + + + +---------+ + + | fluconazole | take 1 tablet by | | 0 | 01/25/20 | | | (DIFLUCAN) 150 mg | mouth daily | | | 18 | | | tablet | | | | | | + + + +---------+ + + | furosemide (LASIX) | Take 40 mg by mouth | | 0 | 02/12/20 | | | 40 mg tablet | Twice daily as | | | 12 | | | | needed for Edema. | | | | | + + + +---------+ + + | metFORMIN | take 1 tablet by | | 0 | 07/08/19 | | | (GLUCOPHAGE) 1000 MG | mouth twice a day | | | 18 | | | tablet | | | | | | + + + +---------+ + + | NYSTATIN [id number] | apply topically to | | 0 | 01/25/20 | | | UNIT/GM powder | affected area twice | | | 18 | | | | a day | | | | | + + + +---------+ + + | omeprazole | Take 20 mg by mouth | | 1 | 04/08/20 | | | (PRILOSEC) 20 mg | every morning | | | 16 | | | capsule | (before breakfast). | | | | | | | Take one capsule | | | | | | | daily | | | | | + + + +---------+ + + | pramipexole | Take 1.5 mg by mouth | | 0 | | | | (MIRAPEX) 1.5 MG | 2 times daily. | | | | | | tablet | | | | | | + + + +---------+ + + | Uncoded | Lifelong-99;Obstucti | 1 | 0 | 09/15/19 | | | MedicationIndication | e Sleep Apnea | Device | | 14 | | | s: Obstructive sleep | | | | | | | apnea (adult) | | | | | | | (pediatric) | | | | | | + + + +---------+ + + | UNCODED MEDICATION | Convert CPAP to | 1 | 0 | 07/19/19 | | | | purchase for ANNABEL | Device | | 14 | | | | (327.23) | | | | | + + + +---------+ + + | UNCODED | Wear when sleeping. | 1 | 0 | 05/12/20 | | | MEDICATIONIndication | | Device | | 13 | | | s: ANNABEL (obstructive | | | | | | | sleep apnea) | | | | | | + + + +---------+ + + | UNCODED | Diagnosis: | 1 | 0 | 11/04/19 | | | MEDICATIONIndication | Obstructive Sleep | Device | | 13 | | | s: Obstructive sleep | ApneaICD-9: | | | | | | apnea (adult) | 327.23Length of | | | | | | (pediatric) | Need: 99 Months | | | | | + + + +---------+ + + | VENTOLIN HFA 108 | Inhale 2 puffs into | | 0 | | | | (90 BASE) MCG/ACT | the lungs every 4 | | | | | | inhaler | hours as needed for | | | | | | | Wheezing. | | | | | + + + +---------+ + + | warfarin | 10 mg. Take 7.5mg | | 0 | | | | (COUMADIN) 5 mg | three days per week | | | | | | tablet | and 5mg four days | | | | | | | per week or as | | | | | | | directed | | | | | + + + +---------+ + + | hydrOXYzine | Take 25 mg by mouth | | 0 | 05/26/20 | | | pamoate (VISTARIL) | 3 times daily as | | | 17 | 8 | | 25 mg capsule | needed for Anxiety. | | | | | + + + +---------+ + + | levothyroxine | Take 75 mcg by mouth | | 1 | 09/15/19 | | | (SYNTHROID, | every morning | | | 16 | 8 | | LEVOTHROID) 75 MCG | (before breakfast). | | | | | | tablet | Take one tablet | | | | | | | daily | | | | | + + + +---------+ + + | naproxen | naproxen 500 mg | | 0 | | | | (NAPROSYN) 500 mg | tablet take 1 tablet | | | | 8 | | tabletIndications: | by mouth twice a | | | | | | Proteinuria, | day BEFORE MEALS | | | | | | unspecified type | | | | | | + + + +---------+ + + documented as of this encounter Plan of Treatment +--------+---------+ + + + | Date | Type | Specialty | Care Team | Description | +--------+---------+ + + + | 06/14/ | Office | Pulmonology | Adolfo Zazueta, | | | 2019 | Visit | | MD Jac JOHNSON | | | | | | [place] | | | | | | [id number] | | | | | | | | +--------+---------+ + + + | 01/18/ | Office | Sleep Medicine | Jermaine Fairchild | | | 2019 | Visit | | MD Jac Sousa Crossett | | | | | | [place] | | | | | | [place] [address] | | | | | | [phone] | | | | | | | | +--------+---------+ + + + documented as of this encounter Procedures + +--------+ + + + | Procedure Name | Priori | Date/Time | Associated Diagnosis | Comments | | | ty | | | | + +--------+ + + + | MRSA NAAT | Timed | 03/04/2018 | | Results for this | | | | 4:47 PM | | procedure are in the | | | | PDT | | results section. | + +--------+ + + + | EXTERNAL LAB: CBC | Routin | 03/04/2018 | | Results for this | | | e | 4:44 PM | | procedure are in the | | | | PDT | | results section. | + +--------+ + + + | PROTIME INR | Routin | 03/04/2018 | | Results for this | | | e | 4:44 PM | | procedure are in the | | | | PDT | | results section. | + +--------+ + + + | BASIC METABOLIC | Routin | 03/04/2018 | | Results for this | | PANEL | e | 4:44 PM | | procedure are in the | | | | PDT | | results section. | + +--------+ + + + documented in this encounter Results MRSA NAAT (03/04/2018 4:47 PM PDT) + + | Specimen | + + | | + + + + + | Narrative | Performed At | + + + | SOURCE NARES(NOSE) MRSA | EXTERNAL LAB | | PCR NEGATIVE Testing | | | performed at [facility];[address] [place] [address];[place] [address] | | + + + + +---------+ + + | Performing | Address | City/State/Zipcode | Phone Number | | Organization | | | | + +---------+ + + | EXTERNAL LAB | | | | + +---------+ + + Protime XIMENA (03/04/2018 4:44 PM PDT) + + + + + + | Component | Value | Ref Range | Performed | Pathologist | | | | | At | Signature | + + + + + + | INR | 1.9Comment: REFERENCE | | EXTERNAL | | | | RANGE:0.9 - 1.2 | | LAB | | | | NON-ANTICOAGULATED2.0 | | | | | | - 3.0 ALL OTHER | | | | | | THERAPEUTIC | | | | | | INDICATIONS2.5 - 3.5 | | | | | | MECHANICAL HEART VALVES, | | | | | | RECURRENT OR SYSTEMIC | | | | | | EMBOLISMTesting | | | | | | performed at [facility];[address] | | | | | [facility];[place], [place] | | | | | | [address] | | | | + + + + + + + + | Specimen | + + | Blood specimen | | (specimen) | + + + +---------+ + + | Performing | Address | City/State/Zipcode | Phone Number | | Organization | | | | + +---------+ + + | EXTERNAL LAB | | | | + +---------+ + + External Lab: CBC (03/04/2018 4:44 PM PDT) + + + + + + | Component | Value | Ref Range | Performed | Pathologist | | | | | At | Signature | + + + + + + | WBC | 12.41 (H) | 3.80 - 11.00 | EXTERNAL | | | | | K/uL | LAB | | + + + + + + | RED CELL | 4.86 | 3.70 - 5.10 | EXTERNAL | | | COUNT | | M/uL | LAB | | + + + + + + | Hgb | 15.3 | 11.3 - 15.5 | EXTERNAL | | | | | g/dL | LAB | | + + + + + + | Hematocrit, | 45.3 | 34.0 - 46.0 % | EXTERNAL | | | POC | | | LAB | | + + + + + + | MCV | 93.2 | 80.0 - 100.0 fl | EXTERNAL | | | | | | LAB | | + + + + + + | MCH | 31.6 | 27.0 - 34.0 pg | EXTERNAL | | | | | | LAB | | + + + + + + | MCHC | 33.9 | 32.0 - 35.5 | EXTERNAL | | | | | g/dL | LAB | | + + + + + + | RDW-CV | 59.5 (H) | 37 - 53 fl | EXTERNAL | | | | | | LAB | | + + + + + + | Platelet | 386 | 150 - 400 K/uL | EXTERNAL | | | Count | | | LAB | | | Plasma | | | | | + + + + + + | MPV | 8.6 | fl | EXTERNAL | | | | | | LAB | | + + + + + + | Differentia | AUTOMATED | | EXTERNAL | | | l Type | | | LAB | | + + + + + + | % Segmented | 75.56 | % | EXTERNAL | | | | | | LAB | | | Neutrophils | | | | | + + + + + + | % | 18.42 | % | EXTERNAL | | | Lymphocytes | | | LAB | | + + + + + + | % Monocytes | 4.17 | % | EXTERNAL | | | | | | LAB | | + + + + + + | % | 1.41 | % | EXTERNAL | | | Eosinophils | | | LAB | | + + + + + + | % Basophils | 0.44 | % | EXTERNAL | | | | | | LAB | | + + + + + + | Absolute | 9.37 (H) | 1.90 - 7.40 | EXTERNAL | | | Segmented | | K/uL | LAB | | | Neutrophils | | | | | + + + + + + | Absolute | 2.29 | 1.00 - 3.90 | EXTERNAL | | | Lymphocytes | | K/uL | LAB | | + + + + + + | Absolute | 0.52 | 0.00 - 0.80 | EXTERNAL | | | Monocytes | | K/uL | LAB | | + + + + + + | Absolute | 0.18 | 0.00 - 0.50 | EXTERNAL | | | Eosinophils | | K/uL | LAB | | + + + + + + | Absolute | 0.06Comment: Testing | 0.00 - 0.10 | EXTERNAL | | | Basophils | performed at [facility], [address] | K/uL | LAB | | | | [address], | | | | | | [place] [address] | | | | + + + + + + + + | Specimen | + + | Blood specimen | | (specimen) | + + + +---------+ + + | Performing | Address | City/State/Zipcode | Phone Number | | Organization | | | | + +---------+ + + | EXTERNAL LAB | | | | + +---------+ + + Basic Metabolic Panel (03/04/2018 4:44 PM PDT) + + + + + + | Component | Value | Ref Range | Performed | Pathologist | | | | | At | Signature | + + + + + + | Na | 141 | 135 - 145 | EXTERNAL | | | | | mmol/L | LAB | | + + + + + + | K | 4.5 | 3.5 - 4.9 | EXTERNAL | | | | | mmol/L | LAB | | + + + + + + | Cl | 101 | 99 - 109 mmol/L | EXTERNAL | | | | | | LAB | | + + + + + + | CO2 | 32 | 23 - 32 mmol/L | EXTERNAL | | | | | | LAB | | + + + + + + | Anion Gap | 13 | 5 - 20 mmol/L | EXTERNAL | | | | | | LAB | | + + + + + + | Glucose, | 132 (H) | 65 - 99 mg/dL | EXTERNAL | | | Fasting | | | LAB | | + + + + + + | BUN | 11 | 8 - 25 mg/dL | EXTERNAL | | | | | | LAB | | + + + + + + | Creatinine | 0.9 | 0.50 - 1.00 | EXTERNAL | | | | | mg/dL | LAB | | + + + + + + | BUN/Creatin | 12 | | EXTERNAL | | | ine Ratio | | | LAB | | + + + + + + | Calcium | 9.6 | 8.5 - 10.5 | EXTERNAL | | | | | mg/dL | LAB | | + + + + + + | Estimated | >60Comment: GFR <60: | mL/min/1.73m2 | EXTERNAL | | | GFR | CHRONIC KIDNEY DISEASE, | | LAB | | | | IF FOUND OVER A 3 MONTH | | | | | | PERIOD.GFR <15: KIDNEY | | | | | | FAILURE.FOR | | | | | | AMERICANS, MULTIPLY THE | | | | | | CALCULATED GFR BY | | | | | | 1.210.This eGFR is | | | | | | calculated using the | | | | | | MDRD IDMS traceable | | | | | | equation.Testing | | | | | | performed at [facility], [address] | | | | | [address], | | | | | | [place] [address] | | | | + + + + + + + + | Specimen | + + | Blood specimen | | (specimen) | + + + +---------+ + + | Performing | Address | City/State/Zipcode | Phone Number | | Organization | | | | + +---------+ + + | EXTERNAL LAB | | | | + +---------+ + + documented in this encounter Visit Diagnoses Not on filedocumented in this encounter
--- OUTSIDE RECORDS SUMMARY | ~2019-06-14 | XMS | Encounter Summary ---
Demographics + + + | Address | [address] | | | [place] [address] | + + + | Home Phone | | + + + | Preferred Language | Unknown | + + + | Marital Status | Single | + + + | Roman Catholic Affiliation | NRP | + + + [...] | + + +---------+ + | [place] | ECON | Unknown | | + + +---------+ + Care Team Providers + +------+ + | Care Wellness Manager Name | Role | Phone | + +------+ + | Bassam Ross DO | PCP | | + +------+ + Encounter Details +--------+---------+ + + + | Date | Type | Department | Care Team | Description | +--------+---------+ + + + | 01/22/ | Office | Digestive Health | | Health | | 2015 | Visit | Center at [facility] [address] | | education/counseling | | | | [place] | | (Primary Dx) | | | | Mailcode: [place] | | | | | | for [facility] and | | | | | | Healing, [facility] | | | | | | [place], [place] | | | | | | [phone] | | | | | | [phone] | | | +--------+---------+ + + + [...] + documented as of this encounter Progress Radha Quezada RN - 01/22/2015 11:41 AM PDTPre-op teaching completed. Discussed pre-op pre paration including diet and Hibiclens wash. Given instructions on time/date of procedure. Also discussed post operative expectations, diet progression, activity, and pain management. Readiness to learn - Yes. Barriers to learning - patient utilized her mobile phone for se veral periods of time throughout the class, unclear if she was able to listen and process in structions during these periods. 7 :22 AM PDTdocumented in this encounter Plan of Treatment Not on filedocumented as of this encounter Visit Diagnoses + + | Diagnosis | + + | Health education/counseling - Primary Counseling NOS | + + documented in this encounter"
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
--- OUTSIDE RECORDS SUMMARY | ~2019-06-14 | XMS | Encounter Summary ---
Demographics + + + | Address | [address] | | | [place] [address] | + + + | Home Phone | | + + + | Preferred Language | Unknown | + + + | Marital Status | Single | + + + | Jainism Affiliation | NRP | + + + | Race | White | + + + | Ethnic Group | Not or | + + + Author + + + | Author | [facility] | + + + | Organization | [facility] | + + + | Address [...] | + + +---------+ + | Lana Valier | ECON | Unknown | | + + +---------+ + Care Team Providers + +------+ + | Care Senior Tax Accountant Name | Role | Phone | + +------+ + | Bassam Ross DO | PCP | | + +------+ + Reason for Visit + + + | Reason | Comments | + + + | Follow-up visit | | + + + Consultation (Routine) +--------+--------+ + + + + | Status | Reason | Specialty | Diagnoses / | Referred By | Referred To | | | | | Procedures | Contact | Contact | +--------+--------+ + + + + | Closed | | Pain | Diagnoses | Tilgner, | Hydraulic Corrugating Machine Operator Psych | | | | Management | Morbid | RENETTA Kebede | [address] | | | | | obesity with | [address] | | | | | BMI of [address] | [address] | Mailcode: | | | | | and over, | [place], [place] | 15 Center | | | | | adult (HCC) | [address] | for Health | | | | | Procedures | Phone: | and Healing, | | | | | CONSULT TO | [phone] | Building 1, | | | | | PAIN CENTER | Fax: | 15th Floor | | | | | | [phone] | [facility] [place] | | | | | | | [address] | | | | | | | Phone: | | | | | | | [phone] | | | | | | | Fax: | | | | | | | [phone] | +--------+--------+ + + + + Encounter Details +--------+---------+ + + + | Date | Type | Department | Care Team | Description | +--------+---------+ + + + | 05/01/ | Office | Pain Center at [facility] | Gera Moreira, | Posttraumatic stress | | 2013 | Visit | 15 [address] | PhD [address] | disorder (Primary | | | | [address] Mailcode: | Arleen [place], [place] | Dx); Morbid obesity | | | | [facility] Center for | [address] | with BMI of 70 and | | | | Health and Healing, | [phone] | over, adult (HCC) | | | | Building | | | | | | Floor [place], [place] | | | | | | [address] | | | | | | [phone] | | | +--------+---------+ + + + Social History + +-------+ +--------+ + | Tobacco Use | Types | Packs/Day | Years | Date | | | | | Used | | + +-------+ +--------+ + | Former Smoker | | | | Quit: 01/03/1999 | + +-------+ +--------+ + + + | Comments: quit 12 years [...] documented as of this encounter Progress Notes Gera Moreira, PhD - 05/01/2014 12:35 PM PSTPROGRESS NOTE: BARIATRIC RE-EVALUATION Name: Aspen Darden : 1970 Medical Record: [id number] Age:43 y.o. Aspen Darden is a 43 y.o. female who lives in [place], [place] with her child. She was initi ally seen on 10/06/2013 for psychological evaluation prior to bariatric surgery. At that time she appeared from a psychological perspective to be a poor candidate for bariatric surgery at this time. She had significant psychological distress with symptoms of post traumatic st ress disorder and depression. She had gained more than 200 lbs in the previous 2 years [facility] the traumatic of her boyfriend. She was in psychological counseling but based upon her rapid weight gain during that time, I felt that the treatment was not effective. Since that initial evaluation Ms. Darden has made significant changes. She has changed couns elors and now works with [employer]gow[employer] counselor who challenges her thinking and her habits and pushes her to be a stronger person. She has been following the corporate buyer's recommendations and has made significant changes in her eating habits. She has addressed the issues that caused me concern at our initial visit and at this time I think that she is an appropriate candidate for surgery. She has shown that she has the ability and the willingness to follow recommend ations and she has achieved the goals she needed to achieve. An important element in her ch bob has been the need for her to take on a caregiver role for her father who has heart dise ase. She is managing his diet and meal schedule and that has helped her be more conscientio us about her own diet and eating habits. As she continues to follow the recommendations she has been given I anticipate that she will have successful weight loss. Diagnosis: 1. (309.81) post traumatic stress disorder 2. (296.31) major depressive disorder, recurrent, mild 3. Morbid obesity RECOMMENDATIONS: 1. Aspen Darden appears from a psychological perspective to be an appropriate candidate for bariatric surgery at this time. She has dealt with her psychological distress and her s ymptoms are well controlled. 2. She should continue her psychological treatment with her current counselor. 3. She should continue to adhere to the corporate buyer's recommendations. Total time I spent with the patient was approximately 25 minutes. GERA MOREIRA, PHD [facility] [address] Mail Code: [place] [address] documented in this en counter Plan of Treatment Not on filedocumented as of this encounter Visit Diagnoses + + | Diagnosis | + + | Posttraumatic stress disorder - Primary | + + | Morbid obesity with BMI of 70 and over, adult (HCC) | + + documented in this encounter"
--- OUTSIDE RECORDS SUMMARY | ~2019-06-14 | XMS | Encounter Summary ---
Demographics + + + | Address | [address] | | | [place] [address] | + + + | Home Phone | | + + + | Preferred Language | Unknown | + + + | Marital Status | Single | + + + | Evangelical Affiliation | NRP | + + + | Race | White | + + + | Ethnic Group | Not or | + + + Author + + + | Organization | Unknown | + + + | Address | [...] Team Providers + +------+ + | Care Replenishment Buyer Name | Role | Phone | + +------+ + PCP | Unavailable | + +------+ + Encounter Details +--------+ + + + + | Date | Type | Department | Care Team | Description | +--------+ + + + + | 08/15/ | Procedure - | | Record, Operation | Operative Report | | 1998 | | | | | | | Transcribed | | | | +--------+ + + + + Social History + +-------+ +--------+------+ | Tobacco Use | Types | Packs/Day | Years | Date | | | | | Used | | + +-------+ +--------+------+ | Never Assessed | | | | | + +-------+ +--------+------+ + + + | Sex Assigned at [...] | + +--------+ + + + | OPERATION RECORD | | 08/15/1998 | | Results for this | | | | | | procedure are in the | | | | | | results section. | + +--------+ + + + documented in this encounter Results OPERATION RECORD (08/15/1998) + + | Transcriptions | + + | Interface, Nutrition Internship In - 05/27/2006 1:04 AM PST | | [address] | | [place], [place] [address] [place] | | [facility] SystemOPERATION RECORDMed Rec No.: [id number] Date: | | 08/15/1998Name: Geoffrey Darden SURGEON: Tan Rocha, | | Josefina.ASSISTANTS: Fallon Jackson M.D. | | Anita Romero M.D. Evy Blair, | | RenatoPREOPERATIVE DIAGNOSIS: Intrauterine at 33 weeks;chronic | | hypertension; nephrotic syndrome; probable pre-eclampsia;intrauterine growth | | retardation; obesity and nonreassuring hearttracing.POSTOPERATIVE | | DIAGNOSIS(ES): Same.OPERATIONS PERFORMED: Primary classical | | section withvertical skin incision and bilateral tubal ligation.SPECIMEN(S) | | REMOVED: See below.ANESTHESIA: General.FINDINGS: | | Normal uterus, ovaries and tubes,viable baby girl in the | | cephalic position, anterior placenta. Apgars are 4at one minute and 7 at five minutes. | | Weight is 2 pounds, 12 ounces. Therewere no complications.PROCEDURE: | | The patient was taken to the operatingroom where a general anesthesia was | | initiated. She was prepped and drapedprior to the initiation of general anesthesia. | | A vertical skin incisionwas made above the umbilicus and carried down to the | | underlying layer ofthe fascia with the scalpel. It was then decided that a larger | | incisionwas needed; therefore, the incision was extended around the umbilicus. | | Thefascia was then incised with the scalpel, being careful of the underlyingabdominal | | contents. The uterus was then exposed well with this verticalincision and also with | | traction by the assistants. It was decided as alower uterine incision could not be | | visualized clearly, that a verticalincision in the uterus should be made. | | Therefore, this was made easily.Upon entry into the uterus, the placenta was found | | to be anterior. Theprimary treating plant operator went around the placenta and delivered the | | fetus, whichwas in the cephalic lie. The baby was delivered easily. The cord | | wasclamped and cut. The baby was handed off to the pediatricians who took thebaby to | | the resuscitation room. The placenta delivered primary with thebaby, and the | | remainder of the placenta was delivered after the delivery ofthe baby. The placenta was | | found to be intact. The uterus was cleared ofall clots and debris. The vertical | | incision was repaired in a double layerwith an underlying layer of #0 Vicryl running | | suture and a top layer of #0Vicryl running suture through the serosa. Several small | | tilyke-xy-lfurzgfhqhdi were placed with #2-0 Vicryl to obtain excellent | | hemostasis.Attention was then turned to the patient's fallopian tubes which were | | eachbrought into a loop, doubly ligated, and the intersecting loops wereexcised | | and sent to Pathology. These were noted to be hemostatic as well.The abdominal | | incision was cleared of all clots. The sponge and lap andneedle counts were correct | | before closure of the fascia. The fascia wasreapproximated in a Smead-Russ | | technique with #0 PDS in a running fashion.Several layers of subcutaneous were placed. | | A flat Edward-Contreras drain wasalso placed at the base of the incision, and the skin | | was closed withstaples.The patient tolerated the procedure well. The sponge and | | needle and lapcounts were correct x 2. Two grams of Ancef were given at cord clamp. | | Thepatient was taken to the Recovery Room in stable condition.Estimated blood loss was | | 1000 cc.Fallon Jackson M.D. Tan Rocha M.D.АННА/alsD: 08/15/1998T: | | 08/16/1998 11:12 Acc: | |basket bottom machine operator went around the placenta and delivered the fetus, which | |was in the cephalic lie. The baby was delivered easily. The cord was | |clamped and cut. The baby was handed off to the pediatricians who took the | |baby to the resuscitation room. The placenta delivered primary with the | |baby, and the remainder of the placenta was delivered after the delivery of | |the baby. The placenta was found to be intact. The uterus was cleared of | |all clots and debris. The vertical incision was repaired in a double layer | |with an underlying layer of #0 Vicryl running suture and a top layer of #0 | |Vicryl running suture through the serosa. Several small ufdnnm-uw-fgcvo | |sutures were placed with #2-0 Vicryl to obtain excellent hemostasis. | | | |Attention was then turned to the patient's fallopian tubes which were each | |brought into a loop, doubly ligated, and the intersecting loops were | |excised and sent to Pathology. These were noted to be hemostatic as well. | |The abdominal incision was cleared of all clots. The sponge and lap and | |needle counts were correct before closure of the fascia. The fascia was | |reapproximated in a Smead-Russ technique with #0 PDS in a running fashion. | |Several layers of subcutaneous were placed. A flat Edward-Contreras drain was | |also placed at the base of the incision, and the skin was closed with | |kayleen. | | | |The patient tolerated the procedure well. The sponge and needle and lap | |counts were correct x 2. Two grams of Ancef were given at cord clamp. The | |patient was taken to the Recovery Room in stable condition. | | | |Estimated blood loss was 1000 cc. | | | | | | | |Fallon Jackson M.D. Tan Rocha M.D. | | | |АННА/als | | | | A | | | |cc: | + + documented in this encounter Visit Diagnoses Not on filedocumented in this encounter"
--- OUTSIDE RECORDS SUMMARY | ~2019-06-14 | XMS | Encounter Summary ---
Demographics + + + | Address | [address] | | | [place] [address] | + + + | Home Phone | | + + + | Preferred Language | Unknown | + + + | Marital Status | Single | + + + | Pentecostalism Affiliation | NRP | + + + [...] Team Providers + +------+ + | Care Almond Blancher Hand Name | Role | Phone | + +------+ + | Iqra Peralta MD | PCP | | + +------+ + Reason for Visit + + + | Reason | Comments | + + + | Bariatric Nutrition | | + + + Encounter Details +--------+ + + + + | Date | Type | Department | Care Team | Description | +--------+ + + + + | 12/26/ | Telephone | Digestive Health | [address] | Bariatric Nutrition | | 2015 | | Center at [facility] [address] | [address] | | | | | [address] | [place], | | | | | Mailcode: [place] | [place] [address] | | | | | for Health and | | | | | | [facility], [place] [address] | | | | | | [place], [place] | | | | | | [address] | | | | | | [phone] | | | +--------+ + + + + Social History + +-------+ +--------+ + | Tobacco Use | Types | Packs/Day | Years | Date | | | | | Used | | + +-------+ +--------+ + | Former Smoker | | | | Quit: 01/03/1999 | + +-------+ +--------+ + + +---+---+---+ | Smokeless Tobacco: [...] filedocumented as of this encounter Visit Diagnoses Not on filedocumented in this encounter"
--- OUTSIDE RECORDS SUMMARY | ~2019-06-14 | XMS | Encounter Summary ---
Demographics + + + | Address | [address] | | | [place] [address] | + + + | Home Phone [...] Team Providers + +------+ + | Care Pneumatic Deicer Inspector Name | Role | Phone | + +------+ + | Iqra Peralta MD | PCP | | + +------+ + Encounter Details +--------+ + + + + | Date | Type | Department | Care Team | Description | +--------+ + + + + | 08/05/ | MyChart | Pain Center at [facility] | Mily Love, | RE: Appt aproval | | 2019 | Encounter | 15 [address] | Kofi Moya, PhD [address] | | | | [address] Mailcode: | [address] | | | | | [address] Center for | [place], [place] | | | | | Health and Healing, | [address] | | | | | Building | [phone] | | | | | Floor [place], [place] | | | | | | [address] | | | | | | [phone] | | | +--------+ + + + [...]
--- OUTSIDE RECORDS SUMMARY | ~2019-06-14 | XMS | Encounter Summary ---
Demographics + + + | Address | [address] | | | [place] [address] | + + + | Home Phone | | + + + | Preferred Language | Unknown | + + + | Marital Status | Single | + + + | Buddhist Affiliation | NRP | + + + | Race | White | + + + | Ethnic Group | Not or | + + + Author + + + | Author | [facility] | + + + | Organization | [facility] | + + + | Address | [...] Team Providers + +------+ + | Care Boom Storage Name | Role | Phone | + +------+ + | Bassam Ross DO | PCP | | + +------+ + Reason for Visit + + + | Reason | Comments | + + + | Postoperative visit | | + + + Encounter Details +--------+---------+ + + + | Date | Type | Department | Care Team | Description | +--------+---------+ + + + | 09/04/ | Office | Digestive Health | Dori Fajardo, | Morbid obesity with | | 2014 | Visit | Center at [facility] [address] | MD | BMI of 70 and over, | | | | [address] | | adult (HCC) (Primary | | | | Mailcode: Center | | Dx) | | | | for Health and | | | | | | [facility], [facility] [address] | | | | | | [place], [place] | | | | | | [address] | | | | | | [phone] | | | +--------+---------+ + + + [...] + + + | Blood Pressure | 142/82 | 09/04/2014 2:42 PM | | | | | PDT | | + + + + + | Pulse | 115 | 09/04/2014 2:42 PM | | | | | PDT | | + + + + + | Temperature | 37.1 C (98.7 F) | 09/04/2014 2:42 PM | | | | | PDT | | + + + + + | Respiratory Rate | 20 | 09/04/2014 2:42 PM | | | | | PDT | | + + + + + | Oxygen Saturation | 99% | 09/04/2014 2:42 PM | | | | | PDT | | + + + + + | Inhaled Oxygen | - | - | | | Concentration | | | | + + + + + | Weight | 192.3 kg (424 lb) | 09/04/2014 2:42 PM | | | | | PDT | | + + + + + | Height | 160 cm (5' 3") | 09/04/2014 2:42 PM | | | | | PDT | | + + + + + | Body Mass Index | 75.11 | 09/04/2014 2:42 PM | | | | | PDT | | + + + + + documented in this encounter Progress Notes Dori Fajardo MD - 09/04/2014 3:34 PM PDT I saw and evaluated the patient and agree wit h the findings and plan as documented in the resident s note. I spent 20 minutes with the patient of which >50% of this time was in counseling and coordination of care. We discusse d the reasons for my aborting her recent attempt at sleeve gastrectomy due to massive hepato megaly. I have asked her to lose 25 pounds. DORI FAJARDO MD CHIEF, BARIATRIC SERVICES [facility] C[facility] AT [facility] 6TH FLOOR [address] Mailcode: [place] [phone] unshinesStan MD - 09/04/2014 2:51 PM PDT BARIATRIC SURGERY CLINIC FOLLOW-UP NOTE Patient: Aspen Darden ([id number]) Author: Stan Spencer MD Attending: Dori Fajardo MD Date: 09/04/2014 (hospital day 23941) ID: Aspen Darden is a 43 y.o. female with morbid obesity, HTN, and ANNABEL who underwent abor laurel laparoscopic sleeve gastrectomy on 08/24/14. She has undergone two prior gastric bands re sulting in significant omental scarring to the stomach. Additionally she was noted to have f atty liver disease obscuring safe dissection planes. Subjective: - 4 pound weight loss over the past 2 weeks since surgery - Incisions healing well, no post-op pain or N/V - Encouraged that she may be a candidate for surgery in the future - A bit dismayed that she was recently diagnosed with Type 2 DM (HbA1c on 08/22/14). She is not using any antihyperglycemics or insulin at present. - Met with Bariatric [employer] today, provided dietary advice Physical Exam: Gen: Alert and oriented, NAD Resp: Unlabored on RA CV: RRR, no m/r/g Abd: Soft, nontender, nondistended. Incisions without erythema, swelling, or drainage. Skin glue intact, all dressings removed. Lab Results Component Value Date A1C 6.5* 08/22/2014 ASSESSMENT AND PLAN: Aspen Darden is a 43 yo woman with MO, ANNABEL, and HTN s/p aborted laparoscopic sleeve gastr ectomy on 08/24/14. She is felt to be a good candidate for this surgery however should lose a pproximately 30 pounds before surgery, which should acutely reduce her hepatomegaly and allo w surgery to proceed safely. - Goal 25 lbs weight loss before attempting surgery again - Will be in touch via [employer] - RTC 1 month Stan Spencer MD Red Surgery Pager: [phone] documented in th is encounter Plan of Treatment Not on filedocumented as of this encounter Visit Diagnoses + + | Diagnosis | + + | Morbid obesity with BMI of 70 and over, adult (HCC) - Primary | + + documented in this encounter
--- OUTSIDE RECORDS SUMMARY | ~2019-06-14 | XMS | Encounter Summary ---
Demographics + + + | Address | [address] | | | [place] [address] | + + + | Home Phone | | + + + | Preferred Language | Unknown | + + + | Marital Status | Single | + + + | Jehovah'S Witness Affiliation | Unknown | + + + | Race | Unknown | + + + | Ethnic Group | Unknown | + + + Author + + + | Author | [facility] | | | and [place] | + + + | Organization | [facility] | | | and [...] Providers + +------+ + | Care Special Education Professor Name | Role | Phone | + +------+ + | Bassam Ross DO | PCP | | + +------+ + Encounter Details +--------+ + + + + | Date | Type | Department | Care Team | Description | +--------+ + + + + | 08/13/ | Orders Only | [facility] [place] | Adolfo Zazueta, | | | 2018 | | PULMONARY [address] | MD [address] | | | | | [place], | [place] | | | | | [place] [address] | [address] | | | | | [phone] | | | +--------+ + + + [...] [place] | | | | | | [address] | | | | | | | | +--------+---------+ + + + | 01/18/ | Office | Sleep Medicine | Gurinder, Jermaine D | | | 2020 | Visit | | MD [address] | | | | | | [place] | | | | | | [place] [address] | | | | | | [phone] | | | | | | | | +--------+---------+ + + + documented as of this encounter Visit Diagnoses Not on filedocumented in this encounter"
--- OUTSIDE RECORDS SUMMARY | ~2019-06-14 | XMS | Encounter Summary ---
Demographics + + + | Address | [address] | | | [place] [address] | + + + | Home Phone | | + + + | Preferred Language | Unknown | + + + | Marital Status | Single | + + + | Lutheran Affiliation | Unknown | + + + | Race | Unknown | + + + | Ethnic Group | Unknown | + + + Author + + + | Author | [facility] | | | and [place] | + + + | Organization | [facility] | | | [...] Team Providers + +------+ + | Care Ice Plant Operator Name | Role | Phone | + +------+ + | Iqra Peralta MD | PCP | | + +------+ + Reason for Visit +--------+ + | Reason | Comments | +--------+ + | Other | letter | +--------+ + Encounter Details +--------+ + + + + | Date | Type | Department | Care Team | Description | +--------+ + + + + | 03/25/ | Telephone | [facility] [place] | Adolfo Zazueta, | Other (letter ) | | 2017 | | PULMONARY [address] | MD [address] | | | | | [place], | [place], [place] | | | | | [place] [address] | [address] | | | | | [phone] | | | +--------+ + + + [...] | | 2019 | Visit | | [address] | | | | | | [place] | | | | | | [address] | | | | | | | | +--------+---------+ + + + | 01/18/ | Office | Sleep Medicine | Jermaine Fairchild | | | 2019 | Visit | | MD Lars [address] | | | | | | [place] | | | | | | [place] [address] | | | | | | [phone] | | | | | | | | +--------+---------+ + + + documented as of this encounter Visit Diagnoses Not on filedocumented in this encounter"
--- OUTSIDE RECORDS SUMMARY | ~2019-06-14 | XMS | Encounter Summary ---
Demographics + + + | Address | [address] | | | [place] [address] | + + + | Home Phone | | + + + | Preferred Language | Unknown | + + + | Marital Status | Single | + + + | Amish Affiliation | Unknown | + + + | Race | Unknown | + + + | Ethnic Group | Unknown | + + + Author + + + | Author | [facility] | | | and [place] | + + + | Organization | [facility] | | | and [...] Team Providers + +------+ + | Care City Council Member Name | Role | Phone | + +------+ + | Bassam Ross DO | PCP | | + +------+ + Reason for Visit + + + | Reason | Comments | + + + | Medication Refill | | + + + Encounter Details +--------+--------+ + + + | Date | Type | Department | Care Team | Description | +--------+--------+ + + + | 09/14/ | Refill | [facility] [place] [facility] | Jermaine Fairchild | Medication Refill | | 2013 | | SLEEP DISORDER [address] | MD [address] | | | | | [address] [place] | [address] [place] | | | | | [place] [address] | [place] [address] | | | | | [phone] | [phone] | | | | | | | | +--------+--------+ + + + Social History + +-------+ [...] | Visit | | MD [address] | | | | | | [place] | | | | | | [place] [address] | | | | | | [phone] | | | | | | | | +--------+---------+ + + + documented as of this encounter Visit Diagnoses + + | Diagnosis | + + | Obstructive sleep apnea (adult) (pediatric) - Primary | + + documented in this encounter"
--- OUTSIDE RECORDS SUMMARY | ~2019-06-14 | XMS | Encounter Summary ---
Demographics + + + | Address | [address] | | | [place] [address] | + + + | Home Phone | | + + + | Preferred Language | Unknown | + + + | Marital Status | Single | + + + | Judaism Affiliation | Unknown | + + + | Race | Unknown | + + + | Ethnic Group | Unknown | + + + Author + + + | Author | [facility] | | | and [place] | + + + | Organization | [facility] | | | [...] Team Providers + +------+ + | Care Mailroom Supervisor Name | Role | Phone | + +------+ + PCP | Unavailable | + +------+ + Encounter Details +--------+ + + + + | Date | Type | Department | Care Team | Description | +--------+ + + + + | 03/20/ | [facility] | [facility] | Jermaine Fairchild | | | 2002 | Encounter | MED CTR GENERIC OP | MD Lars [address] | | | | | CONV DEPT [address] [place] | | | | | [place], | [place] [address] | | | | | [place] [address] | [phone] | | | | | [phone] | | | +--------+ + + + [...] Pulmonology | Adolfo Zazueta, | | | 2020 | Visit | | MD Nathan [address] | | | | | | [place] | | | | | | [id number] | | | | | | | | +--------+---------+ + + + | 01/18/ | Office | Sleep Medicine | Jermaine Fairchild | | | 2019 | Visit | | MD Lars [address] | | | | | | [place] | | | | | | [place] [address] | | | | | | [phone] | | | | | | | | +--------+---------+ + + + documented as of this encounter Visit Diagnoses Not on filedocumented in this encounter"
--- OUTSIDE RECORDS SUMMARY | ~2019-06-14 | XMS | Encounter Summary ---
Demographics + + + | Address | [address] | | | [place] [address] | + + + | Home Phone | | + + + | Preferred Language | Unknown | + + + | Marital Status | Single | + + + | Baptism Affiliation | NRP | + + + | Race | White | + + + | Ethnic Group | Not or | + + + Author + + + | Author | [facility] | + + + | Organization | [facility] | + + + | Address | [...] | + + +---------+ + | Lana [place] | ECON | Unknown | | + + +---------+ + Care Team Providers + +------+ + | Care Cream Separator Operator Name | Role | Phone | + +------+ + | Bassam Ross DO | PCP | | + +------+ + Reason for Visit +---------+ + | Reason | Comments | +---------+ + | Post Op | | +---------+ + Encounter Details +--------+---------+ + + + | Date | Type | Department | Care Team | Description | +--------+---------+ + + + | 02/15/ | Office | Digestive Health | Thania Cardenas, | S/P laparoscopic | | 2015 | Visit | [facility] [address] | ACNP [address] | sleeve gastrectomy | | | | [address] | Ave [place], [place] | (Primary Dx); Morbid | | | | Mailcode: Center | [address] | obesity ([facility]); ANNABEL | | | | for Health and | [phone] | on CPAP; Benign | | | | Healing, [address] | | essential HTN; Type | | | | [place], [place] | | 2 diabetes mellitus | | | | [address] | | without complication | | | | [phone] | | ([facility]); Vaginal | | | | | | yeast infection | +--------+---------+ + + + Social History [...] + + + | Blood Pressure | 124/71 | 02/15/2015 2:50 PM | | | | | PDT | | + + + + + | Pulse | 99 | 02/15/2015 2:50 PM | | | | | PDT | | + + + + + | Temperature | 36.4 C (97.6 F) | 02/15/2015 2:50 PM | | | | | PDT | | + + + + + | Respiratory Rate | - | - | | + + + + + | Oxygen Saturation | 97% | 02/15/2015 2:50 PM | | | | | PDT | | + + + + + | Inhaled Oxygen | - | - | | | Concentration | | | | + + + + + | Weight | 185 kg (407 lb 12.8 | 02/15/2015 2:50 PM | | | | oz) | PDT | | + + + + + | Height | 162.6 cm (5' 4") | 02/15/2015 2:50 PM | | | | | PDT | | + + + + + | Body Mass Index | 70 | 02/15/2015 2:50 PM | | | | | PDT | | + + + + + documented in this encounter Patient Instructions Patient Instructions Thania Lamas ACNP - 02/15/2015 2:52 PM PDT3.Take acid collective bargaining specialist (omep razole) for first 3 mos, then wean off over 2 wks. This is to prevent ulcers. Take this med ication even if you have NO symptoms. Do open and sprinkle It's ok to use immodium Calcium citrate 9879-0999 mg per day (take calcium 2 hours away from any iron containing ortiz pplements) Vitamin D 1000 IU per day, minimum in addition to the above. B12 500 mcg either sublingual/ tablet or 1000mcg once monthly as a shot Chewable multivitamin with iron, take twice the adult dose (flintstones number 2 daily) sep arate from the calcium by at least 2 hours I have given you a refill on your pain medication, if that isn't sufficient, we would need to see you as you shouldn't continue to have That pain Off narcotics then you can drive documented in this encounter Progress Notes Thania Lamas ACNP - 02/15/2015 1:03 PM PDTFormatting of this note might be different fro m the original. BARIATRIC FOLLOW-UP Aspen Darden is a 44 y.o. patient who underwent a sleeve gastrectomy 02/07/2015. She has a history Of lap band x 2, with removal of both. She was admitted for the second attempt to perform surgery, as the first was aborted becaus e of Her large liver. She was placed on a liquid diet for weight loss. Review of the operative n ote with A still markedly enlarged liver. Post op her blood sugars were markedly elevated. She was found to have kathy rancher wrappers at bedside. Then sugars improved. She arrives today, stating she has a vaginal yeast infection, continued pain, And wants a refill of narcotics, loose stools. She had a appointment with the plumbing and heating contractor prior to our visit. She is here with her friend who is a pre op patient in our program. . Last office visit reviewed. Op-report reviewed. Labs reviewed. Weight 416 weight at op time --> 407 (total 9 lb weight loss) She started our program at 4 50 pounds ALLERGIES: Allergies Allergen Reactions Advair Diskus [Fluticasone-Salmeterol] Airway Constriction Amoxicillin Hives Clarithromycin Gabapentin Unknown Hydrocodone-Acetaminophen Oxycodone Terephthalate Hives Sulfa (Sulfonamide Antibiotics) Rash Current outpatient prescriptions: acetaminophen 325 mg oral tablet, Take 2 tablets by mouth every six hours as needed for pain. Cut tablet into small pieces. Do not crush., Disp: 100 tablet, Rfl: 0 albuterol 90 mcg/actuation inhalation HFA aerosol inhaler, Inhale every four hours as neede d., Disp: , Rfl: ALPRAZolam 0.5 mg oral tablet, Take by mouth., Disp: , Rfl: CARVEDILOL ORAL, Take 50 mg by mouth two times daily., Disp: , Rfl: cloNIDine (CATAPRES) 0.1 mg oral tablet, Take 0.3 mg by mouth two times daily., Disp: , Rfl : cyclobenzaprine 10 mg oral tablet, Take 10 mg by mouth three times daily as needed. Do not use longer than 2-3 weeks., Disp: , Rfl: glycerin, ADULT, rectal suppository, Insert 1 suppository rectally once daily as needed (fo r constipation)., Disp: 5 suppository, Rfl: 2 HYDROmorphone 4 mg oral tablet, Take 0.5-1 tablets by mouth every four hours as needed for severe pain., Disp: 75 tablet, Rfl: 0 omeprazole 20 mg oral capsule,delayed release(DR/EC), Take 1 capsule by mouth once daily in the morning for 90 days. Open the capsule and mix into sugar-free liquid or yogurt., Disp: 90 capsule, Rfl: 0 ondansetron ODT 4 mg oral tablet,disintegrating, Place 1 tablet on tongue and let it dissol ve every 6 hours as needed for nausea/vomiting., Disp: 30 tablet, Rfl: 1 polyethylene glycol 17 gram/dose oral powder, Dissolve 17g (1 capful) into 4 ounces of liqu id and drink once daily as needed for constipation., Disp: 255 g, Rfl: 0 Pramipexole (MIRAPEX) 0.75 mg oral tablet, Take 0.75 mg by mouth two times daily., Disp: , Rfl: simethicone chew 80 mg oral tablet,chewable, Take 1 tablet by mouth four times daily as nee ded for gas/ bloating., Disp: 30 tablet, Rfl: 0 thyroid (ARMOUR THYROID) 60 mg oral tablet tablet, Take 60 mg by mouth once daily., Disp: , Rfl: History: Past Medical History Diagnosis Date Essential hypertension, [...] echo and chest xray findings. 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 Poor intravenous access Liver enlargement 01/2015 intraop Past Surgical History Procedure Laterality Date C section 1998 Tonsillectomy 1996 Knee surgery 1996 Gastric banding 2004, 2006, 2011 Skin and subcutaneous tissue surgery 2006 Foot surgery 2009 - 2010 3x Hysterectomies, vaginal 2009 Appendectomy for ruptured appendix with abscess 2012 Gallbladder surgery 2008 Laparotomy 07/2014 History Social History Marital Status: Single Spouse Name: N/A Number of Children: N/A Years of Education: N/A Occupational History Not on file. Social History Main Topics Smoking status: Former Smoker -- 0.25 packs/day for 16 years Types: Cigarettes Quit date: 01/03/1999 Smokeless tobacco: Never Used Comment: quit 12 years ago Alcohol Use: Yes Comment: social drinks (2-3 times per year) Drug Use: No Sexual Activity: Not on file Other Topics Concern Not [...] sinus rhythm. Normal ECG Records reviewed from [facility] (see media tab): Echocardiogram 11/18/2013: 1. [...] There is no pericardial effusion.21. No mass [id number]. Po or visualization. Definity was used to opacify the left ventricular chamber and improve deli neation of the endocardial border. Family History Problem Relation Diabetes Father Hypertension Mother Obesity Mother Hypertension Father Heart Disease Father [place] 78 Bariatric Medications: to start at 2 weeks MVI with iron twice daily: no Calcium citrate 1500mg daily: no Vitamin D 1000 mg daily : no B12 500mcg SL daily or monthly shot: no H2RB/PPI daily: yes Actigall/ ursodiol 300 BID: no Narcotics: yes Symptoms: Nausea: None Dysphagia: None Vomiting: None Heartburn: None Abd Pain: 6-8 times per week Constipation: None Diarrhea: 2-5 times per week Exam General- Alert and oriented x4, WD, WN, NAD, Obese, well appearing Well hydrated: moist mucous membranes Lungs: regular and even excursion, no audible wheezes Card/Circ: no LE edema Abd - Soft, NT, NR, NG Abd Wounds healing pain over right right lower abdomen No signs of infection Ext: walking with a walker Assessment/Plan: 1. S/P sleeve gastrectomy, Doing well. Alluded to tasting a hamburger. Reinforced to her that she had a big surgery that was difficult because of the size of her liver and the required Manipulation. Plan: refill of 50 tabs dilaudid 4 mg no refills. I discussed with her if she is still havi ng pain we would want to see her. 2. Labs today: none 3.Take acid collective bargaining specialist (omeprazole) for first 3 mos, then wean off over 2 wks. This is to pre vent ulcers. Take this medication even if you have NO symptoms. 5Continue with supps as directed, watch protein levels, be sure to get 60 gms daily, be daniella e to take in 64 oz of water daily. 6 Discussed specific supplements Discussed diet choices, healthy foods, ways to increase protein and iron,Discussed exercise , types of exercise 2. s/p gastric surgery, potential for B12 deficiency, Calcium malabsorption, protein malab sorption and iron deficiencies. 3. B12 nutritional deficiency- pt has limited portion sizes, area of stomach where b12 abso rbed is now partially removed or bypassed. 4. Vitamin D deficiency, pt has history of deficiency, taking supplements, will need to be monitored regularly. Potential for elevated PTH if Vit D and calcium absorption are not opti mized. See PCM for adjusting any other medications. Call if any abd pain, n/v/d or other issues. ER for severe pain. Encouraged pt to F/u at 1 month post op. Pt agrees to POC and will call or send Naymit message if any issues. Start time 1500, end time 1530. I spent a total of 30 minutes face to face with this patie nt. Over 50% of visit was in counseling. Thania Lamas DNP, ACNP, PROJECT SYSTEMS ENGINEER Nurse Practitioner for Bariatric Surgery [facility] | [address] | [place], [place] | [address] | documented in this en counter Plan of Treatment Not on filedocumented as of this encounter Visit Diagnoses + + | Diagnosis | + + | S/P laparoscopic sleeve gastrectomy - Primary | + + | Morbid obesity (HCC) Morbid obesity | + + | ANNABEL on CPAP Obstructive sleep apnea (adult) (pediatric) | + + | Benign essential HTN Essential hypertension, benign | + + | Type 2 diabetes mellitus without complication (HCC) | + + | Vaginal yeast infection Candidiasis of vulva and vagina | + + documented in this encounter
--- OUTSIDE RECORDS SUMMARY | ~2019-06-14 | XMS | Encounter Summary ---
Demographics + + + | Address | [address] | | | [place] [address] | + + + | Home Phone | | + + + | Preferred Language | Unknown | + + + | Marital Status | Single | + + + | Gnosticist Affiliation | Unknown | + + + | Race | Unknown | + + + | Ethnic Group | Unknown | + + + Author + + + | Author | [facility] | | | and [place] | + + + | Organization | [facility] | | | and [...] Team Providers + +------+ + | Care Loss Prevention Investigator Name | Role | Phone | + [...] Description | +--------+--------+ + + + | 02/17/ | Refill | [facility] | Adolfo Zazueta, | Medication Refill | | 2016 | | PULMONARY [address] | MD [address] | | | | | [place], | [place], [place] | | | | | [place] [address] | [address] | | | | | [phone] | | | +--------+--------+ + + + Social History + + [...] [place] | | | | | | [address] | | | | | | | | +--------+---------+ + + + | 01/18/ | Office | Sleep Medicine | Jermaine Fairchild | | | 2019 | Visit | | MD Lars [address] | | | | | | [place] | | | | | | [place] [address] | | | | | | [phone] | | | | | | | | +--------+---------+ + + + documented as of this encounter Visit Diagnoses Not on filedocumented in this encounter"
--- OUTSIDE RECORDS SUMMARY | ~2019-06-14 | XMS | Encounter Summary ---
Demographics + + + | Address | [address] | | | [place] [address] | + + + | Home Phone | | + + + | Preferred Language | Unknown | + + + | Marital Status | Single | + + + | Cheondoism Affiliation | NRP | + + + | Race | White | + + + | Ethnic Group | Not or | + + + Author + + + | Author | [facility] | + + + | Organization | [facility] | + + + | [...] | + + +---------+ + | Lana [place] | ECON | Unknown | | + + +---------+ + Care Team Providers + +------+ + | Care Stitcher Tape Controlled Machine Name | Role | Phone | + +------+ + | Bassam Ross DO | PCP | | + +------+ + Encounter Details +--------+------+ + + + | Date | Type | Department | Care Team | Description | +--------+------+ + + + | 11/03/ | Lab | Laboratory at [facility] | | Morbid obesity with | | 2013 | | [address] | | BMI of 70 and over, | | | | [place], [place] | | adult (HCC) | | | | [address] | | | | | | [phone] | | | +--------+------+ + + + Social History + +-------+ [...] | CBC (HEMOGRAM) ONLY | Routin | 11/03/2013 | Morbid obesity | Results for this | | | e | 12:50 PM | with BMI of 70 and | procedure are in the | | | | PDT | over, adult ([facility]) | results section. | + +--------+ + + + | VITAMIN D, | Routin | 11/03/2013 | Morbid obesity | Results for this | | 25-HYDROXY, SERUM | e | 12:50 PM | with BMI of 70 and | procedure are in the | | | | PDT | over, adult (HCC) | results section. | + +--------+ + + + | COMPLETE METABOLIC | Routin | 11/03/2013 | Morbid obesity | Results for this | | SET | e | 12:50 PM | with BMI of 70 and | procedure are in the | | (NA,K,CL,CO2,BUN,CRE | | PDT | over, adult ([facility]) | results section. | | AT,GLUC,CA,AST,ALT,B | | | | | | JAYCEE TOTAL,ALK | | | | | | PHOS,ALB,PROT TOTAL) | | | | | + +--------+ + + + | CBC ONLY | Routin | 11/03/2013 | Morbid obesity | Results for this | | | e | 12:50 PM | with BMI of 70 and | procedure are in the | | | | PDT | over, adult ([facility]) | results section. | + +--------+ + + + | PTH, SERUM | Routin | 11/03/2013 | Morbid obesity | Results for this | | | e | 12:50 PM | with BMI of 70 and | procedure are in the | | | | PDT | over, adult ([facility]) | results section. | + +--------+ + + + | TSH | Routin | 11/03/2013 | Morbid obesity | Results for this | | | e | 12:50 PM | with BMI of 70 and | procedure are in the | | | | PDT | over, adult ([facility]) | results section. | + +--------+ + + + | LIPID SET (TRIG, T | Routin | 11/03/2013 | Morbid obesity | Results for this | | CHOL, HDL, CALC LDL) | e | 12:50 PM | with BMI of 70 and | procedure are in the | | | | PDT | over, adult ([facility]) | results section. | + +--------+ + + + | HEMOGLOBIN A1C, | Routin | 11/03/2013 | Morbid obesity | Results for this | | BLOOD | e | 12:50 PM | with BMI of 70 and | procedure are in the | | | | PDT | over, adult ([facility]) | results section. | + +--------+ + + + documented in this encounter Results CBC (HEMOGRAM) ONLY (11/03/2013 12:50 PM PDT) + + + + + + | Component | Value | Ref Range | Performed | Pathologist | | | | | At | Signature | + + + + + + | WHITE CELL | 11.88 (H) | 4.40 - 11.00 | [facility] | | | COUNT | | K/cu mm | LABORATORY | | | | | | SERVICES, | | | | | | [facility] | | | | | | [facility] | | + + + + + + | RED CELL | 4.93 | 4.00 - 5.20 | [facility] | | | COUNT | | M/cu mm | LABORATORY | | | | | | SERVICES, | | | | | | [facility] + | | | | | | [facility]AL[facility] | | + + + + + + | HEMOGLOBIN | 15.7 | 12.0 - 16.0 | [facility] | | | | | g/dL | LABORATORY | | | | | | SERVICES, | | | | | | [facility] + | | | | | | [facility]ALING | | + + + + + + | HEMATOCRIT | 48.1 (H) | 36.0 - 46.0 % | [facility] | | | | | | LABORATORY | | | | | | SERVICES, | | | | | | [facility] + | | | | | | [facility]ALING | | + + + + + + | MCV | 97.6 (H) | 80.0 - 96.0 fL | [facility] | | | | | | LABORATORY | | | | | | SERVICES, | | | | | | [facility] + | | | | | | [facility]ALING | | + + + + + + | MCHC | 32.6 | 33.0 - 35.5 | [facility] | | | | | g/dL | LABORATORY | | | | | | SERVICES, | | | | | | [facility] + | | | | | | [facility]ALING | | + + + + + + | RDW SD | 53.7 (H) | 35.1 - 46.3 fL | [facility] | | | | | | LABORATORY | | | | | | SERVICES, | | | | | | [facility] | [facility] + | | | | | | [facility]ALING | | + + + + + + | PLATELET | 317 | 150 - 400 K/cu | [facility] | | | COUNT | | mm | LABORATORY | | | | | | SERVICES, | | | | | | [facility] | [facility] + | | | | | | [facility]ALING | | + + + + + + | MPV | 9.7 | 9.7 - 12.3 fL | [facility] | | | | | | LABORATORY | | | | | | SERVICES, | | | | | | [facility] | | | | [facility] + | | | | | | [facility]ALING | | + + + + + + + + | Specimen | + + | Blood - Blood | + + + + + + + | Performing | Address | City/State/Zipcode | Phone Number | | Organization | | | | + + + + + | [facility] | [address] | [place] [address] | | | [facility] | | | | | [facility] + HEALING | | | | + + + + + PTH, SERUM (11/03/2013 12:50 PM PDT) + [...] - | | | | | | [place] | | + +--------+ + + + + + | Specimen | + + | Blood - Blood | + + + + + + + | Performing | Address | City/State/Zipcode | Phone Number | | Organization | | | | + + + + + | [facility] | [address] | [place] [address] | | | [place] | | | | + + + [...] + + | [facility] | [address] | [place] [address] | | | SERVICES, SPECIAL | PARK [...] | + + + + + | [facility] | [address] | [place] [address] | | | SERVICES, CORE | NANCY [...] LABORATORY | [address] | [place] [address] | | | SERVICES, SPECIAL | PARK [...] + + | [facility] | [address] | [place] [address] | | | SERVICES, CORE | NANCY [...] | | | LABORATORY | | | [place] | | | SERVICES, | | | [...] the MDRD equation recommended by the | [facility] | | National Kidney Disease Education Program. Estimated GFR | LABORATORY | | Interpretive Information: <60 mL/min/1.73 sq m | [place], CORE | | Chronic Kidney Disease <15 [...] | + + + + + | [facility] | [address] | [place] [address] | | | [address] [place] | [address] | | | + + + + + documented in this encounter Visit Diagnoses + + | Diagnosis | + + | Morbid obesity with BMI of 70 and over, adult (HCC) | + + documented in this encounter"
--- OUTSIDE RECORDS SUMMARY | ~2019-06-14 | XMS | Encounter Summary ---
Demographics + + + | Address | [address] | | | [place] [address] | + + + | Home Phone | | + + + | Preferred Language | Unknown | + + + | Marital Status | Single | + + + | Worship Affiliation | NRP | + + + | Race | White | + + + | Ethnic Group | Not or | + + + Author + + + | Author | [facility] | + + + | Organization | [facility] | + + + | Address [...] | + + +---------+ + | Lana [place] | ECON | Unknown | | + + +---------+ + Care Team Providers + +------+ + | Care Station Superintendent Name | Role | Phone | + +------+ + | Bassam Ross DO | PCP | | + +------+ + Encounter Details +--------+ + + + + | Date | Type | Department | Care Team | Description | +--------+ + + + + | 09/23/ | Abstract | Digestive Health | Traci Do, | | | 2013 | | [place] [facility] [address] | OVER SHORT AND DAMAGE CLERK [address] | | | | | [address] | [place] [address] | | | | | Mailcode: [place] | [place], [place] | | | | | [facility] and | [address] | | | | | [place] [address] | [phone] | | | | | [place], [place] | | | | | | [address] | | | | | | [phone] | | | +--------+ + + + [...]
--- OUTSIDE RECORDS SUMMARY | ~2019-06-14 | XMS | Encounter Summary ---
Demographics + + + | Address | [address] | | | [place] [address] | + + + | Home Phone | | + + + | Preferred Language | Unknown | + + + | Marital Status | Single | + + + | Pentecostal Affiliation | NRP | + + + | Race | White | + + + | Ethnic Group | Not or | + + + Author + + + | Author | [facility] | + + + | Organization | [facility] | + + + | Address [...] | + + +---------+ + | Lana [place] | ECON | Unknown | | + + +---------+ + Care Team Providers + +------+ + | Care Division Leader Name | Role | Phone | + +------+ + | Iqra Peralta MD | PCP | | + +------+ + Reason for Referral Consultation (Routine) +--------+--------+ + + + + | Status | Reason | Specialty | Diagnoses / | Referred By | Referred To | | | | | Procedures | Contact | Contact | +--------+--------+ + + + + | Closed | | | Diagnoses | [place], | | | | | | Closed | Shyam Greenwood MD | | | | | | fracture of | [address] | | | | | | distal end | [place] | | | | | | of right | Rd | | | | | | femur, | [place], [place] | | | | | | unspecified | [address] | | | | | | fracture | Phone: | | | | | | morphology, | [phone] | | | | | | initial | Fax: | | | | | | encounter | [phone] | | | | | | (FORMERLY [facility]) | | | | | | | Procedures | | | | | | | CONSULT TO | | | | | | | ORTHOPEDICS | | | | | | | AND | | | | | | | REHABILITATI | | | | | | | ON | | | +--------+--------+ + + + + Reason for Visit + + + | Reason | Comments | + + + | Referral | | + + + Encounter Details +--------+ + + + + | Date | Type | Department | Care Team | Description | +--------+ + + + + | 11/04/ | Telephone | Orthopaedics at | Shyam Mortensen, | Referral | | 2019 | | [facility] [address] | [address] | | | | | [place] Mailcode: [facility] | [place] | | | | | [facility] | [place], [place] | | | | | and Healing, | [address] | | | | | [facility] | [phone] | | | | | Floor [place], [place] | | | | | | [address] | | | | | | [phone] | | | +--------+ + + + [...] + + documented as of this encounter Functional Status + + + [...] + | Diagnosis | + + | Closed fracture of distal end of right femur, unspecified fracture morphology, initial | | encounter (HCC) - Primary | + + documented in this encounter"
--- OUTSIDE RECORDS SUMMARY | ~2019-06-14 | XMS | Encounter Summary ---
Demographics + + + | Address | [address] | | | [place] [address] | + + + | Home Phone [...] Author + + + | Author | [facility] | + + + | Organization | [facility] | + + + | [...] | + + +---------+ + | Lana Saint Anthony | ECON | Unknown | | + + +---------+ + Care Team Providers + +------+ + | Care District Court Bailiff Name | Role | Phone | + +------+ + | Bassam Ross DO | PCP | | + +------+ + Encounter Details +--------+ + + + + | Date | Type | Department | Care Team | Description | +--------+ + + + + | 11/23/ | Abstract | Cardiology | Sheila Loya | | | 2013 | | Preventive at [facility] | JULIETA Figueroa [address] | | | | | [address] | [place], | | | | | Mailcode: CH9A | [place] [address] | | | | | [facility] | [phone] | | | | | and Healing, | | | | | | [address] | | | | | | [place], [place] | | | | | | [address] | | | | | | [phone] | | | +--------+ + + + [...]
--- OUTSIDE RECORDS SUMMARY | ~2019-06-14 | XMS | Encounter Summary ---
Demographics + + + | Address | [address] | | | [place] [address] | + + + | Home Phone | | + + + | Preferred Language | Unknown | + + + | Marital Status | Single | + + + | Confucianist Affiliation | Unknown | + + + | Race | Unknown | + + + | Ethnic Group | Unknown | + + + Author + + + | Author | [facility] | | | and [place] | + + + | Organization | [facility] | | | [...] Team Providers + +------+ + | Care Rn Angiography Name | Role | Phone | + +------+ + | Iqra Peralta MD | PCP | | + +------+ + Encounter Details +--------+ + + + + | Date | Type | Department | Care Team | Description | +--------+ + + + + | 12/22/ | Orders Only | [facility] | Provider, | Hyperlipidemia; | | 2018 | | [facility] OP | MD [address] | Isolated | | | | CONVERSION [address] | [address] | proteinuria; | | | | [address] [place], [place] | [place] [address] | Persistent | | | | [address] | | proteinuria; | | | | [phone] | | Essential (primary) | | | | | | hypertension; | | | | | | Continuous leakage | | | | | | of urine; | | | | | | Proteinuria | +--------+ + + + + Social History + + + +--------+ + | Tobacco Use | Types | Packs/Day | Years | Date | | | | | Used | | + + + +--------+ + | Former Smoker | Cigarettes | 2016 | 16 | 09/21/1984 - | | [...] [place] | | | | | | [id number] | | | | | | | | +--------+---------+ + + + | 01/18/ | Office | Sleep Medicine | Jermaine Fairchild | | | 2020 | Visit | | MD Lars [address] | | | | | | [address] [place] | | | | | | [place] [address] | | | | | | [phone] | | | | | | | | +--------+---------+ + + + + +------+--------+ + + | Name | Type | Priori | Associated Diagnoses | Order Schedule | | | | ty | | | + +------+--------+ + + | Basic Metabolic | Lab | Routin | Hyperlipidemia | Expected: | | Panel | | e | Isolated proteinuria | 04/05/2018, Expires: | | | | | | 03/25/2019 | + +------+--------+ + + | CBC with | Lab | Routin | Hyperlipidemia | Expected: | | Differential | | e | Isolated proteinuria | 04/05/2018, Expires: | | | | | | 03/25/2019 | + +------+--------+ + + | Protein/Creatinine | Lab | Routin | Hyperlipidemia | Expected: | | Ratio, Urine | | e | Isolated proteinuria | 04/05/2018, Expires: | | | | | | 03/25/2019 | + +------+--------+ + + | Uric Acid | Lab | Routin | Hyperlipidemia | Expected: | | | | e | Isolated proteinuria | 04/05/2018, Expires: | | | | | | 03/25/2019 | + +------+--------+ + + | Urinalysis with | Lab | Routin | Hyperlipidemia | Expected: | | Microscopic if | | e | Isolated proteinuria | 04/05/2018, Expires: | | Indicated | | | | 03/25/2019 | + +------+--------+ + + | Basic Metabolic | Lab | Routin | Persistent | Expected: | | Panel | | e | proteinuria | 07/13/2018, Expires: | | | | | Essential (primary) | 04/12/2019 | | | | | hypertension | | | | | | Continuous leakage | | | | | | of urine | | + +------+--------+ + + | CBC with | Lab | Routin | Persistent | Expected: | | Differential | | e | proteinuria | 07/13/2018, Expires: | | | | | Essential (primary) | 04/12/2019 | | | | | hypertension | | | | | | Continuous leakage | | | | | | of urine | | + +------+--------+ + + | Uric Acid | Lab | Routin | Persistent | Expected: | | | | e | proteinuria | 07/13/2018, Expires: | | | | | Essential (primary) | 04/12/2019 | | | | | hypertension | | | | | | Continuous leakage | | | | | | of urine | | + +------+--------+ + + | Urinalysis with | Lab | Routin | Persistent | Expected: | | Microscopic if | | e | proteinuria | 07/13/2018, Expires: | | Indicated | | | Essential (primary) | 04/12/2019 | | | | | hypertension | | | | | | Continuous leakage | | | | | | of urine | | + +------+--------+ + + | Protein/Creatinine | Lab | Routin | Persistent | Expected: | | Ratio, Urine | | e | proteinuria | 07/13/2018, Expires: | | | | | Essential (primary) | 04/12/2019 | | | | | hypertension | | | | | | Continuous leakage | | | | | | of urine | | + +------+--------+ + + | Basic Metabolic | Lab | Routin | Essential | Expected: | | Panel | | e | (primary) | 11/02/2018, Expires: | | | | | hypertension | 08/03/2019 | | | | | Persistent | | | | | | proteinuria | | | | | | Proteinuria | | + +------+--------+ + + | CBC with | Lab | Routin | Essential | Expected: | | Differential | | e | (primary) | 11/02/2018, Expires: | | | | | hypertension | 08/03/2019 | | | | | Persistent | | | | | | proteinuria | | | | | | Proteinuria | | + +------+--------+ + + | Urinalysis with | Lab | Routin | Essential | Expected: | | Microscopic if | | e | (primary) | 11/02/2018, Expires: | | Indicated | | | hypertension | 08/03/2019 | | | | | Persistent | | | | | | proteinuria | | | | | | Proteinuria | | + +------+--------+ + + | Protein/Creatinine | Lab | Routin | Essential | Expected: | | Ratio, Urine | | e | (primary) | 11/02/2018, Expires: | | | | | hypertension | 08/03/2019 | | | | | Persistent | | | | | | proteinuria | | | | | | Proteinuria | | + +------+--------+ + + | Basic Metabolic | Lab | Routin | Essential | Expected: | | Panel | | e | (primary) | 08/09/2018, Expires: | | | | | hypertension | 08/03/2019 | | | | | Persistent | | | | | | proteinuria | | | | | | Proteinuria | | + +------+--------+ + + documented as of this encounter Visit Diagnoses + + | Diagnosis | + + | Hyperlipidemia Other and unspecified hyperlipidemia | + + | Isolated proteinuria Proteinuria | + + | Persistent proteinuria Proteinuria | + + | Essential (primary) hypertension Unspecified essential hypertension | + + | Continuous leakage of urine Continuous leakage | + + | Proteinuria | + + documented in this encounter"
--- OUTSIDE RECORDS SUMMARY | ~2019-06-14 | XMS | Encounter Summary ---
Demographics + + + | Address | [address] | | | [place] [address] | + + + | Home Phone | | + + + | Preferred Language | Unknown | + + + | Marital Status | Single | + + + | Yazdanism Affiliation | Unknown | + + + | Race | Unknown | + + + | Ethnic Group | Unknown | + + + Author + + + | Author | [facility] | | | and [place] | + + + | Organization | [facility] | | | and [...] Team Providers + +------+ + | Care Appellate Conferee Name | Role | Phone | + +------+ + | Bassam Ross DO | PCP | | + +------+ + Reason for Visit + + + | Reason | Comments | + + + | Pulmonary Disease | follow up - bariatric surgery | | Appointment | | + + + Evaluate & Treat (Routine) +--------+--------+ + + + + | Status | Reason | Specialty | Diagnoses / | Referred By | Referred To | | | | | Procedures | Contact | Contact | +--------+--------+ + + + + | Closed | | Pulmonary | Diagnoses | Cody, | Marbin | | | | Disease / | Chronic | Bassam Mattson DO | MD Adolfo | | | | Pulmonology | obstructive | [address] | [address] | | | | | pulmonary | [address] | [place], | | | | | disease, | [address] | [place] [address] | | | | | unspecified | [address] | Phone: | | | | | (HCC) | [place] | [phone] | | | | | Obstructive | [address] | Fax: | | | | | sleep apnea | Phone: | [phone] | | | | | (adult) | [phone] | | | | | | (pediatric) | | | | | | | Procedures | | | | | | | F/U | | | +--------+--------+ + + + + Encounter Details +--------+---------+ + + + | Date | Type | Department | Care Team | Description | +--------+---------+ + + + | 08/29/ | Office | [facility] | Marbin Adolfo, | Restrictive lung | | 2015 | Visit | PULMONARY [address] | MD [address] | disease secondary to | | | | [place], | [place], [place] | obesity (Primary | | | | [place] [address] | [address] | Dx); Obstructive | | | | [phone] | | sleep apnea; | | | | | | Hypoxemia | +--------+---------+ + + + Social History + + + +--------+ + | Tobacco Use | Types | Packs/Day | Years | Date | | | | | Used | | + + + +--------+ + | Former Smoker | Cigarettes | 0.5 | 16 | Quit: 06/01/1997 | + + + +--------+ + + +---+---+---+ | Smokeless Tobacco: | | | | | Never Used | | | | + +---+---+---+ + + | Tobacco Cessation: Counseling Given: No | + + + + +---------+ + [...] + + + | Blood Pressure | 134/80 | 08/30/2015 1:49 PM | | | | | PDT | | + + + + + | Pulse | 92 | 08/30/2015 1:49 PM | | | | | PDT | | + + + + + | Temperature | - | - | | + + + + + | Respiratory Rate | - | - | | + + + + + | Oxygen Saturation | 97% | 08/30/2015 1:49 PM | | | | | PDT | | + + + + + | Inhaled Oxygen | - | - | | | Concentration | | | | + + + + + | Weight | 162.3 kg (357 lb | 08/30/2015 1:49 PM | | | | 11.2 oz) | PDT | | + + + + + | Height | 157.5 cm (5' 2") | 08/30/2015 1:49 PM | | | | | PDT | | + + + + + | Body Mass Index | 65.42 | 08/30/2015 1:49 PM | | | | | PDT | | + + + + + documented in this encounter Progress Notes Adolfo Zazueta MD - 08/30/2015 2:07 PM PDTFormatting of this note might be different f rom the original. Pulmonary Clinic Follow Up 08/30/2015 HPI Aspen Darden is a 44 y.o. female patient of Bassam Ross DO here today for follow up of d yspnea, possible reactive airway disease and restrictive lung disease secondary to morbid ob esity. The patient was last seen in our office on January 26, 2014. She underwent bariatric surger y in January 2015. The patient lost over 40 pounds of weight prior to her bariatric surge ry. Her weight is down 92.3 pounds since our last clinic appointment. Since the last visit she feels like their symptoms are decreasing steadily. They have hav e not had any recent episodes of "bronchitis-like" symptoms. To treat their possible reactive airway disease they are currently on a regimen of as neede d Ventolin. The patient is using Ventolin 0 2 times a week. Currently Aspen Darden is able to walk one block at their own pace on level ground before developing symptoms. They are exercising regularly. Their typical exercise consists of walk ing one hour per day. They are not enrolled in cardiac/pulmonary rehabilitation. She does cough chronically, and does not produce mucous. They have not had hemoptysis since our last appointment. She has been evaluated for nocturnal oxygen and does qualify for use. They are currently on CPAP plus supplemental oxygen at 2 LPM at night. She does not had symptoms of heartburn or reflux. They have not had symptoms of nasal conge stion or post nasal drip. Past Medical History Past Medical History Diagnosis Date Obesity Central alveolar hypoventilation syndrome ANNABEL (obstructive sleep apnea) ~2003 Wears CPAP, sees Dr. Fairchild Periodic limb movement disorder (PLMD) Depression with anxiety Nephrotic syndrome Previous. Resloved per pt. resport. COPD (chronic obstructive pulmonary disease) (HCC) patent denies Osteoarthritis Hypothyroidism Vitamin D deficiency Anemia patent denies Insomnia Hypertensive disorder Lymphedema Allergic rhinitis due to pollen Cyst of ovary Endometriosis s/p GLENN BSO Asthma adult diagnosis MRSA (methicillin resistant Staphylococcus aureus) septicemia ([facility]) left foot source Fracture, humeral 2012 Allergies: Allergies Allergen Reactions Clarithromycin Fluticasone-Salmeterol Gabapentin Hydrocodone Oxycodone Phendimetrazine Tartrate Sulfa Antibiotics Sulfamethoxazole W/Trimethoprim (Co-Trimoxazole) Medications: Current outpatient prescriptions: acetaminophen (TYLENOL) 325 mg tablet, Take 325 mg by mouth every 6 hours as needed fo r Pain (TAKE 2 TABLETS EVERY 6 HOURS NEEDED)., Disp: , Rfl: albuterol-ipratropium (DUONEB) 2.5-0.5 mg/3 mL SOLN, Take 3 mLs by nebulization every 4 hours as needed., Disp: 360 mL, Rfl: 1 ALPRAZolam (XANAX) 0.5 mg tablet, Take 0.5 mg by mouth Twice daily as needed., Disp: , Rfl: benzonatate (TESSALON) 100 mg capsule, Take 100 mg by mouth 3 times daily as needed fo r Cough., Disp: , Rfl: carvedilol (COREG) 25 mg tablet, Take 50 mg by mouth 2 times daily (with breakfast & d inner)., Disp: , Rfl: clonazepam (KLONOPIN) 2 MG tablet, Take 2 mg by mouth nightly as needed., Disp: , Rfl: cloNIDine (CATAPRES) 0.1 mg tablet, Take 0.3 mg by mouth 2 times daily., Disp: , Rfl: cyclobenzaprine (FLEXERIL) 10 mg tablet, Take 10 mg by mouth 3 times daily as needed., Disp: , Rfl: ergocalciferol (VITAMIN D-2) 50,000 units capsule, Take 50,000 Units by mouth. Three t imes a week., Disp: , Rfl: estradiol (ESTRACE) 2 MG tablet, Take 2 mg by mouth Daily., Disp: , Rfl: furosemide (LASIX) 40 mg tablet, 40 mg as needed., Disp: , Rfl: HYDROcodone-acetaminophen (NORCO) 5-325 mg per tablet, take one - two tablets by mouth every six hours if needed for pain, Disp: , Rfl: V-Enxkdehrpdbd-[id number]-B2 (CEREFOLIN) 6-1-50-5 MG TABS, Take by mouth., Disp: , Rfl: pramipexole (MIRAPEX) 1.5 MG tablet, Take 75 mg by mouth 2 times daily., Disp: , Rfl: thyroid (ARMOUR) 60 MG tablet, Take 60 mg by mouth Daily., Disp: , Rfl: Uncoded Medication, Lifelong-99;Obstuctie Sleep Apnea, Disp: 1 Device, Rfl: 0 UNCODED MEDICATION, Convert CPAP to purchase for ANNABEL (327.23), Disp: 1 Device, Rfl: 0 UNCODED MEDICATION, Wear when sleeping., Disp: 1 Device, Rfl: 0 UNCODED MEDICATION, Diagnosis: Obstructive Sleep Apnea ICD-9: 327.23 Length of Need: 9 9 Months, Disp: 1 Device, Rfl: 0 VENTOLIN HFA 108 (90 BASE) MCG/ACT inhaler, inhale 2 puffs by mouth every 4 hours if n eeded, Disp: 18 g, Rfl: 1 Immunizations: Immunization History Administered Date(s) Administered INFLUENZA, TRIVALENT PRESERVATIVE FREE (PED/ADOL/ADULT) 02/21/2013 PNEUMOCOCCAL POLYSACCHARIDE 23-VALENT (PPSV23) 07/02/2013 Review of Systems Constitutional: Denies fever, chills, sweats, fatigue or weakness. Sleep: Denies trouble sleeping, excessive snoring, and daytime sleepiness. Eyes: Denies vision change, and eye irritation. ENT: Denies earache, tinnitus, decreased hearing, nosebleeds, sore throat, and hoarseness. Resp: See HPI. CV: Denies neck/chest/jaw pain with exertion, palpitations, lightheadedness, syncope, orth opnea, PND, peripheral edema, and claudication. GI: Denies trouble swallowing, nausea, vomiting, abdominal pain, diarrhea, melena, and he matochezia. Neurologic: Denies frequent headaches, seizures, tremors, numbness or tingling in hands or feet or vertigo. Allergy Denies urticaria or allergic rashes. Objective BP 134/80 mmHg | Pulse 92 | Ht 1.575 m (5' 2") | Wt 162.252 kg (357 lb 11.2 oz) | BMI 65.41 kg/m2 | SpO2 97% | ? No Appearance: Alert, cooperative, no distress, appears stated age Head: Normocephalic, without obvious abnormality, atraumatic Eyes: PERRL, conjunctiva/corneas clear Nose: Nares normal, septum midline, mucosa normal, no drainage or sinus tenderness Throat: Lips, mucosa, and tongue normal; teeth/dentures normal Neck: Supple, symmetrical, no JVD Lungs: No accessory muscle use, breath sounds are clear to auscultation bilaterally, no w heezes, No crackles or rhonchi. No dullness to percussion. Chest Wall: No tenderness or deformity Heart: Regular rate and rhythm, S1, S2 normal, no murmur, rub or gallop Extremities: Extremities normal, atraumatic, no cyanosis, clubbing. Trace edema Skin: Warm and dry Lymph nodes: Cervical and supraclavicular nodes normal Neurologic: Gait normal Data: Nocturnal oximetry performed on 01/17/14 with CPAP plus supplemental oxygen at 2 L/m. The p atleonardo spent 28.9 minutes of over 9 hours and 19 minutes with an O2 saturation below 90%. Assessment 1. Restrictive lung disease secondary to morbid obesity. Symptomatic improvement status post bariatric surgery and weight loss. The patient's weight is down over 92 pounds since our last clinic appointment. It remains to be seen as to whether significant oxygen desaturation occurs with exertion or at night while sleeping with CPAP. 2. Obstructive sleep apnea currently treated with CPAP. No issues with compliance appre ciated. 3. Query reactive airway disease the patient uses albuterol intermittently with some imp rovement of symptoms. Plan 1. Nocturnal oximetry assessment on CPAP plus room air. 2. Exertional oximetry assessment on room air. 3. Pulmonary clinic follow-up appointment to review the above noted studies within the nex t several weeks. CC: Bassam Ross DO documented in this encounter Plan of Treatment +--------+---------+ + + + | Date | Type | Specialty | Care Team | Description | +--------+---------+ + + + | 06/14/ | Office | Pulmonology | Adolfo Zazueta, | | | 2020 | Visit | | MD Jac [address] | | | | | | [place] | | | | | | [address] | | | | | | | | +--------+---------+ + + + | 01/18/ | Office | Sleep Medicine | Jermaine Fairchild | | | 2019 | Visit | | MD Jac [address] | | | | | | [place] | | | | | | [place] [address] | | | | | | [phone] | | | | | | | | +--------+---------+ + + + + + +--------+ + + | Name | Type | Priori | Associated Diagnoses | Order Schedule | | | | ty | | | + + +--------+ + + | Overnight oximetry, | Respiratory | Routin | Restrictive lung | Expected: | | CPAP | Care | e | disease secondary to | 08/30/2015, Expires: | | | | | obesity | 08/29/2016 | + + +--------+ + + documented as of this encounter Procedures + +--------+ + + + | Procedure Name | Priori | Date/Time | Associated Diagnosis | Comments | | | ty | | | | + +--------+ + + + | DIAGNOSTIC REPORT - | | 01/17/2014 | | | | EXTERNAL SCAN | | 12:00 AM | | | | | | PDT | | | + +--------+ + + + documented in this encounter Visit Diagnoses + + | Diagnosis | + + | Restrictive lung disease secondary to obesity - Primary Other diseases of lung, not | | elsewhere classified | + + | Obstructive sleep apnea Obstructive sleep apnea (adult) (pediatric) | + + | Hypoxemia | + + documented in this encounter
--- OUTSIDE RECORDS SUMMARY | ~2019-06-14 | XMS | Encounter Summary ---
Demographics + + + | Address | [address] | | | [place] [address] | + + + | Home Phone | | + + + | Preferred Language | Unknown | + + + | Marital Status | Single | + + + | Zoroastrian Affiliation | NRP | + + + | Race | White | + + + | Ethnic Group | Not or | + + + Author + + + | Author | [facility] | + + + | Organization | [facility] | + + + | Address | [...] Team Providers + +------+ + | Care Hotel Operations Manager Name | Role | Phone | + +------+ + | Iqra Peralta MD | PCP | | + +------+ + Encounter Details +--------+ + + + + | Date | Type | Department | Care Team | Description | +--------+ + + + + | 09/03/ | MyChart | [facility] | Yaritza Venegas, | Next step | | 2019 | Encounter | [facility] [address] | MD [address] | | | | | [address] | [place], [place] | | | | | Mailcode: Center | [address] | | | | | for Health and | [phone] | | | | | [facility] [address] | | | | | | [place], [place] | | | | | | [address] | | | | | | [phone] | | | +--------+ + + + [...]
--- OUTSIDE RECORDS SUMMARY | ~2019-06-14 | XMS | Encounter Summary ---
Demographics + + + | Address | [address] | | | [place] [address] | + + + | Home Phone | | + + + | Preferred Language | Unknown | + + + | Marital Status | Single | + + + | Mosque Affiliation | NRP | + + + | Race | White | + + + | Ethnic Group | Not or | + + + Author + + + | Author | [facility] | + + + | Organization | [facility] | + + + | Address [...] | + + +---------+ + | [place] | ECON | Unknown | | + + +---------+ + Care Team Providers + +------+ + | Care Machining And Assembly Supervisor Name | Role | Phone | + +------+ + | Bassam Ross DO | PCP | | + +------+ + Encounter Details +--------+ + + + + | Date | Type | Department | Care Team | Description | +--------+ + + + + | 01/25/ | Customer Associate | [facility] | Dori Reed, | | | 2014 | | [place] [facility] [address] | [place] | | | | | [address] | | | | | | Mailcode: [place] | | | | | | for Health and | | | | | | [facility] [place] [address] | | | | | | [place], [place] | | | | | | [address] | | | | | | [phone] | | | +--------+ + + + [...]
--- OUTSIDE RECORDS SUMMARY | ~2019-06-14 | XMS | Encounter Summary ---
Demographics + + + | Address | [address] | | | [place] [address] | + + + | Home Phone | | + + + | Preferred Language | Unknown | + + + | Marital Status | Single | + + + | Oriental Orthodox Affiliation | Unknown | + + + | Race | Unknown | + + + | Ethnic Group | Unknown | + + + Author + + + | Author | [facility] | | | and [place] | + + + | Organization | [facility] | | [...] Team Providers + +------+ + | Care Mobile Sales Expert Name | Role | Phone | + [...] | persistent | [address] | [address] | | | | | asthma, | [address] | [place], | | | | | uncomplicate | [place], | [place] [address] | | | | | d | [place] [address] | Phone: | | | | | Congenital | Phone: | [phone] | | | | | central | [phone] | Fax: | | | | | alveolar | Fax: | [phone] | | | | | hypoventilat | [phone] | | | | | | ion syndrome | | | | | | | Procedures | | | | | | | F/U | | | +--------+--------+ + + + + Encounter Details +--------+---------+ + + + | Date | Type | Department | Care Team | Description | +--------+---------+ + + + | 05/31/ | Office | [facility] | Zazueta Adolfo, | Restrictive lung | | 2018 | Visit | PULMONARY [address] | MD [address] | disease secondary to | | | | [facility], | [place], [place] | obesity (Primary | | | | [place] [address] | [address] | Dx); Mild persistent | | | | [phone] | | asthma without | | | | [...] + + | Pulse | 94 | 05/31/2018 1:27 PM | | | | | PST | | + + + + + | Temperature | - | - | | + + + + + | Respiratory Rate | - | - | | + + + + + | Oxygen Saturation | 97% | 05/31/2018 1:27 PM | RA | | | | PST | | + + + + + | Inhaled Oxygen | - | - | | | Concentration | | | | + + + + + | Weight | 181.8 kg (400 lb | 05/31/2018 1:27 PM | | | | 12.7 oz) | PST | | + + + + + | Height | 160 cm (5' 3") | 05/31/2018 1:27 PM | | | | | PST | | + + + + + | Body Mass Index | 71 | 05/31/2018 1:27 PM | | | | | PST | | + + + + + documented in this encounter Patient Instructions Patient Instructions Adolfo Zazueta MD - 05/31/2018 1:30 PM PST Asthma (Adult) Asthma is a disease [...] contact your [facility] provider or seek immediate medical attention. If [...] don't already have one, talk to your [facility] provider about developing your own "Asthma [...] turning arizmendi or blue Date Last Reviewed: 09/29/[id number] [employer]. [address] [place] [address], [place] [address]. All righ ts reserved. This information is not intended as a substitute for professional medical care. Always follow your healthcare professional's instructions. documented in this encounter Progress Notes Adolfo Zazueta MD - 05/31/2018 1:30 PM PSTFormatting of this note might be different f rom the original. Pulmonary Follow Up 05/31/2018 HPI Apsen Darden is a 47 y.o. female patient [...] hypoventilation syndrome COPD (chronic obstructive pulmonary disease) (HCC) patent denies Cyst of ovary Depression with anxiety Diabetes mellitus type 2, diet-controlled (HCC) 02/15/2015 GROSSMAN (dyspnea on exertion) Endometriosis s/p GLENN BSO Fracture, humeral 2013 Hypertensive disorder Hypothyroidism Insomnia Lymphedema MRSA (methicillin resistant Staphylococcus aureus) septicemia ([facility]) left foot source Nephrotic syndrome [...] She continues to wear supplemental oxygen at [facility] through CPAP. No daytime hypoxemia. The patient is up-to-date with respect to her Prevnar, seasonal influenza vaccination and P neumovax. Plan 1. Continue controller medications with Qvar and as needed Ventolin. 2. Seasonal influenza vaccination is recommended for March 2019. 3. Pulmonary clinic follow-up appointment in 12 months time. CC: Iqra Peralta MD documented in this encounter Plan of Treatment [...] 01/18/ | Office | Sleep Medicine | eJrmaine Fairchild | | | 2019 | Visit | | MD Lars [address] | | | | | | [facility] | | | | | | [place] [address] | | | | | | [phone] | | | | | | | | +--------+---------+ + + + documented as of this encounter Visit Diagnoses + + | Diagnosis | + + | Restrictive lung disease secondary to obesity - Primary Other diseases of lung, not | | elsewhere classified | + + | Mild persistent asthma without complication Unspecified asthma | + + documented in this encounter
--- OUTSIDE RECORDS SUMMARY | ~2019-06-14 | XMS | Encounter Summary ---
Demographics + + + | Address | [address] | | | [place] [address] | + + + | Home Phone [...] Author + + + | Author | [facility] | + + + | Organization | [facility] | + + + | Address [...] Team Providers + +------+ + | Care Water Mangle Tender Name | Role | Phone | + +------+ + | Bassam oRss DO | PCP | | + +------+ + Encounter Details +--------+ + + + + | Date | Type | Department | Care Team | Description | +--------+ + + + + | 01/04/ | MyChart | Digestive Health | Thania Cardenas, | RE:Your results from | | 2014 | Encounter | [facility] [address] | ACNP [address] | [facility] | | | | [address] | Ave [place], [place] | | | | | Mailcode: [place] | [address] | | | | | for Health and | [phone] | | | | | [facility], [place] [address] | | | | | | [place], [place] | | | | | | [address] | | | | | | [phone] | | | +--------+ + + + [...]
--- OUTSIDE RECORDS SUMMARY | ~2019-06-14 | XMS | Encounter Summary ---
Demographics + + + | Address | [address] | | | [place] [address] | + + + | Home Phone | | + + + | Preferred Language | Unknown | + + + | Marital Status | Single | + + + | Jew Affiliation | NRP | + + + [...] Team Providers + +------+ + | Care Dobie Worker Name | Role | Phone | + +------+ + PCP | Unavailable | + +------+ + Encounter Details +--------+ + + + + | Date | Type | Department | Care Team | Description | +--------+ + + + + | 08/20/ | Discharge | | Summary, Discharge | D/C Summary ODDS | | 1999 | Summary-Tra | | | | | | nscribed | | | | +--------+ + + [...] documented as of this encounter Discharge Summaries Interface, Electrical Cad Designer In - 05/27/2006 1:[address] [address] [facility] MEDICAL SUMMARY OF HOSPITALIZATION Med Rec No: [id number] Admission Date: 08/14/1998 Name: Aspen Darden Discharge Date: 08/20/1998 STAFF PHYSICIAN: Jermaine Goldstein M.D. PRINCIPAL FINAL DIAGNOSIS: Intrauterine at 33-1/7 weeks, delivered. ADDITIONAL DIAGNOSIS: Obesity. Nephrotic syndrome. Chronic hypertension. Superimposed pre-eclampsia. Intrauterine growth retardation. compromise. Classical section with vertical skin incision for non-reassuring heart tracing. Celestone therapy. General anesthesia. Tubal ligation. PRINCIPAL PROCEDURE: Central line placement by Anesthesia. REASON FOR ADMISSION: The patient is a 27-year-old 1 para 0 at 33 weeks who was transported from [place] on 08/14/98 for superimposed pre-eclampsia on chronic hypertension with intrauterine growth retardation and oligohydramnios. The patient was admitted for observation. HOSPITAL COURSE: The patient was admitted on 08/14/98 after medical transport from [place]. Again, she is a 27-year-old 1 para 0 at 33 weeks by last menstrual period and an 11-week ultrasound who has chronic hypertension and nephrotic syndrome, both diagnosed before , and now with concerns regarding superimposed pre-eclampsia. The patient has no symptoms at this time but has had increasing blood pressures on her normal blood pressure medication. She was also found to be hemoconcentrated with a hematocrit of 39 and also her platelets began dropping from 162 to 105. The patient was admitted for conservative management, was given Celestone, and was placed on bed rest. An ultrasound was performed at [facility] which showed intrauterine growth retardation and oligohydramnios. The intrauterine growth retardation showed the baby to be approximately 29-4/7 weeks by size and an estimated gestational weight of 1350 grams. On day of admission, monitoring was difficult due to the patient's body habitus, however the baby did have good variability, a baseline of 140 and small accelerations but not reactive to criteria. On August 15, 1998, the patient still was doing well without problems. A section was discussed with the patient as her baby was remote from delivery and may have trouble with delivery. The patient did express at that time that she would desire a tubal ligation and thought about having a tubal ligation for her entire . The patient had great concerns regarding her own health and the stresses that that puts on her health. Dr. Goldstein did discuss this with her and she did sign a federal from for the tubal ligation and was consented on her section consent form. At 4 o'clock in the afternoon on 08/15/98 the patient was noted to have decreased variability and several decelerations on her heart tracing. It was decided at that time because of compromise that we would move towards delivery. The patient was taken to the operating room in an urgent fashion where a primary classical section with a vertical skin incision was performed and a bilateral tubal ligation. The patient had no complications from the section. She had a viable baby girl with Apgars of 4 at one minute and 7 at five minutes and a weight of 2 lbs., 12 oz. The cord pH clotted and we were unable to sent a cord pH. Please see the operative dictation for specifics regarding the surgery. After the patient's surgery she was continued on her normal blood pressure medications, including Aldomet. She was started on magnesium for pre-eclampsia prophylaxis and she was started on Lovenox b.i.d. for deep venous thrombosis prophylaxis. The patient did quite well postoperatively and on postoperative day #1 had already advanced her diet to a general diet. Her magnesium was turned off and patient was switched entirely to p.o. medications. On postoperative day #5 the patient was ready for discharge. Her Lovenox had been stopped the day before. The patient was ambulating with some assistance, as she had been prior to her delivery. The patient normally uses a cane and occasionally a wheelchair for ambulation at home due to her body habitus. The patient was voiding on her own, had several bowel movements, was tolerating a general diet and had good pain control on p.o. pain medications. CONDITION ON DISCHARGE: Stable. DISPOSITION: Home. DISCHARGE MEDICATION(S): 1. Oxycodone for pain control. 2. Aldomet, which is her normal blood pressure control medication, 250 mg p.o. t.i.d. DISCHARGE INSTRUCTION(S): The patient was given discharge instructions regarding wound care, and warning signs. FOLLOW UP: The patient will be followed up by Dr. Nye in [place] and by [facility] when she comes to see the baby as needed. Her baby continues to be in the Intensive Care Unit at [facility] and is doing well. The patient is to follow up with Dr. Nye in the next week for a wound check and staple removal. And in the interim, if she comes to [place], she is to make a follow up appointment with us at [facility]. Fallon Jackosn M.D. Renato Arita P FAX: Jin Nye M.D. (tel: [phone]) cc: [place] [id number] signed by Interface, Electrical Cad Designer In at 05/27/2006 1:04 AM PSTdocumented in this encounter Plan of Treatment Not on filedocumented as of this encounter Visit Diagnoses Not on filedocumented in this encounter"
--- OUTSIDE RECORDS SUMMARY | ~2019-06-14 | XMS | Encounter Summary ---
Demographics + + + | Address | [address] | | | [place] [address] | + + + | Home Phone | | + + + | Preferred Language | Unknown | + + + | Marital Status | Single | + + + | Muslim Affiliation | NRP | + + + | Race | White | + + + | Ethnic Group | Not or | + + + Author + + + | Author | [facility] | + + + | Organization | [facility] | + + + | Address | [...] Team Providers + +------+ + | Care Consulting Utility Forester Name | Role | Phone | + +------+ + | Bassam Ross DO | PCP | | + +------+ + Reason for Visit + + + | Reason | Comments | + + + | Medical Records | | | Review | | + + + Encounter Details +--------+ + + + + | Date | Type | Department | Care Team | Description | +--------+ + + + + | 10/07/ | Abstract | [facility] | Clinic, Surgery | Medical Records | | 2017 | | Center [address] | | Review | | | | [address] Mailcode: CH4S | | | | | | [facility] | | | | | | and Healing, | | | | | | [facility] [address] | | | | | | Floor [place], [place] | | | | | | [address] | | | | | | [phone] | | | +--------+ + + + [...]
--- OUTSIDE RECORDS SUMMARY | ~2019-06-14 | XMS | Encounter Summary ---
Demographics + + + | Address | [address] | | | [place] [address] | + + + | Home Phone | | + + + | Preferred Language | Unknown | + + + | Marital Status | Single | + + + | Faith Affiliation | NRP | + + + | Race | White | + + + | Ethnic Group | Not or | + + + Author + + + | Author | [facility] | + + + | Organization | [facility] | + + + | Address [...] Team Providers + +------+ + | Care General Accounting Clerk Name | Role | Phone | + +------+ + | Bassam Ross DO | PCP | | + +------+ + Encounter Details +--------+ + + + + | Date | Type | Department | Care Team | Description | +--------+ + + + + | 01/18/ | MyChart | Cardiology | Loya Sheila | RE: chest Xrays | | 2014 | Encounter | Preventive at [facility] | JULIETA Figueroa [address] | results | | | | [address] | [address] [place], | | | | | Mailcode: CH9A | [place] [address] | | | | | [facility] | [phone] | | | | | and Healing, | | | | | | [address] | | | | | | [place], [place] | | | | | | [address] | | | | | | [phone] | | | +--------+ + + + [...]
--- OUTSIDE RECORDS SUMMARY | ~2019-06-14 | XMS | Encounter Summary ---
Demographics + + + | Address | [address] | | | [place] [address] | + + + | Home Phone | | + + + | Preferred Language | Unknown | + + + | Marital Status | Single | + + + | Lutheran Affiliation | Unknown | + + + | Race | Unknown | + + + | Ethnic Group | Unknown | + + + Author + + + | Author | [facility] | | | and [place] | + + + | Organization | [facility] | | [...] Team Providers + +------+ + | Care Dirt Bike Mechanic Name | Role | Phone | + +------+ + | Bassam Ross DO | PCP | | + +------+ + Encounter Details +--------+ + + + + | Date | Type | Department | Care Team | Description | +--------+ + + + + | 01/26/ | [facility] | [facility] | Adolfo Zazueta, | Dyspnea | | 2013 | Encounter | MED CTR PULMONARY | [address] | | | | | FUNCTION [address] | [place] | | | | | [place], | [address] | | | | | [place] [address] | | | | | | [phone] | | | +--------+ + + + + Social History + + + +--------+ + | Tobacco Use | Types | Packs/Day | Years | Date | | | | | Used | | + + + +--------+ + | Former Smoker | Cigarettes | 0.5 | 16 | Quit: 06/01/1997 | + + + +--------+ + + + +---------+ + | [...] + + documented as of this encounter Medications at Time of Discharge [...] albuterol | Inhale 2 puffs into | 1 | 1 | 12/28/19 | | | (VENTOLIN HFA) 90 | the lungs every 4 | Inhaler | | 14 | 5 | | mcg/puff | hours as needed. | | | | | | inhalerIndications: | | | | | | | Dyspnea | | | | | | + + + +---------+ + + | | Take 3 mLs by | 360 mL | 1 | 12/28/19 | | | albuterol-ipratropiu | nebulization every 4 | | | 14 | 8 | | m (DUONEB) 2.5-0.5 | hours as needed. | | | | | | mg/3 mL | | | | | | | SOLNIndications: | | | | | | | Dyspnea | | | | | | + + + +---------+ + + | ALPRAZolam (XANAX) | Take 0.5 mg by mouth | | 0 | | | | 0.5 mg tablet | Twice daily as | | | | 8 | | | needed. | | | | | + + + +---------+ + + | carvedilol (COREG) | Take 50 mg by mouth | | 0 | | | | 25 mg tablet | 2 times daily (with | | | | 6 | | | breakfast & dinner). | | | | | + + + +---------+ + + | clonazepam | Take 2 mg by mouth | | 0 | | | | (KLONOPIN) 2 MG | nightly as needed. | | | | 8 | | tablet | | | | | | + + + +---------+ + + | cloNIDine | Take 0.3 mg by mouth | | 0 | | | | (CATAPRES) 0.1 mg | 2 times daily. | | | | 8 | | tablet | | | | | | + + + +---------+ + + | cyclobenzaprine | Take 10 mg by mouth | | 0 | | | | (FLEXERIL) 10 mg | 3 times daily as | | | | 8 | | tablet | needed. | | | | | + + + +---------+ + + | estradiol | Take 2 mg by mouth | | 0 | | | | (ESTRACE) 2 MG | Daily. | | | | 6 | | tablet | | | | | | + + + +---------+ + + | fluconazole | Take 200 mg by mouth | | 0 | | | | (DIFLUCAN) 200 MG | Daily. | | | | 6 | | tablet | | | | | | + + + +---------+ + + | | take one - two | | 0 | 02/12/20 | | | HYDROcodone-acetamin | tablets by mouth | | | 12 | 8 | | ophen (NORCO) 5-325 | every six hours if | | | | | | mg per tablet | needed for pain | | | | | + + + +---------+ + + | lamotrigine | Take 200 mg by mouth | | 0 | 02/12/20 | | | (LAMICTAL) 150 MG | Daily. | | | 12 | 6 | | tablet | | | | | | + + + +---------+ + + | levothyroxine | Take 75 mcg by mouth | | 0 | | | | (SYNTHROID, | every morning | | | | 6 | | LEVOTHROID) 75 MCG | (before breakfast). | | | | | | tablet | | | | | | + + + +---------+ + + | potassium chloride | Take 20 mEq by mouth | | 0 | | | | (K-DUR) 20 mEq | Daily. | | | | 6 | | tablet | | | | | | + + + +---------+ + + | pramipexole | Take 75 mg by mouth | | 0 | 02/12/20 | | | (MIRAPEX) 1.5 MG | 2 times daily. | | | 12 | 8 | | tablet | | | | | | + + + +---------+ + + | vilazodone | Take 40 mg by mouth | | 0 | | | | (VIIBRYD) 40 mg | daily (with | | | | 6 | | tablet | breakfast). | | | | | + + [...] [place] | | | | | | [id number] | | | | | | | | +--------+---------+ + + + | 01/18/ | Office | Sleep Medicine | Jermaine Fairchild | | | 2019 | Visit | | MD Jac Sousa | | | | | | [address] | | | | | | [place] [address] | | | | | | [phone] | | | | | | | | +--------+---------+ + + + documented as of this encounter Procedures + +--------+ + + + | Procedure Name | Priori | Date/Time | Associated Diagnosis | Comments | | | ty | | | | + +--------+ + + + | PFT PULMONARY | LUIS ENRIQUE | 01/27/2014 | Dyspnea | Results for this | | FUNCTION TESTING | | 10:22 AM | | procedure are in the | | ORDERS | | PDT | | results section. | + +--------+ + + + | PFT PULMONARY | LUIS ENRIQUE | 01/27/2014 | Dyspnea | Results for this | | FUNCTION TESTING | | 10:22 AM | | procedure are in the | | ORDERS | | PDT | | results section. | + +--------+ + + + | PFT PULMONARY | LUIS ENRIQUE | 01/27/2014 | Dyspnea | Results for this | | FUNCTION TESTING | | 10:22 AM | | procedure are in the | | ORDERS | | PDT | | results section. | + +--------+ + + + | PFT PULMONARY | LUIS ENRIQUE | 01/27/2014 | Dyspnea | Results for this | | FUNCTION TESTING | | 10:22 AM | | procedure are in the | | ORDERS | | PDT | | results section. | + +--------+ + + + | DIAGNOSTIC REPORT - | | 01/26/2014 | | | | EXTERNAL SCAN | | 12:00 AM | | | | | | PDT | | | + +--------+ + + + | DIAGNOSTIC REPORT - | | 01/26/2014 | | | | EXTERNAL SCAN | | 12:00 AM | | | | | | PDT | | | + +--------+ + + + documented in this encounter Results PFT PULMONARY FUNCTION TESTING ORDERS Full PFT ([place] w/BD, lung volumes, diffusion)?: Yes; Rest and walk Oximetry/home O2 eval?: Yes (01/27/2014 10:22 AM PDT) + + + | Narrative | Performed At | + + + | Adolfo Zazueta MD 01/27/2014 10:22 PULMONARY FUNCTION | | | TESTING SPIROMETRY: The prebronchodilator FVC was 1.85 L or 59 % | | | of predicted. The prebronchodilator FEV1 was 1.19 L or 45 % of | | | predicted. FEV1/FVC ratio was 64 %. Following inhalation of | | | albuterol patient's FEV1 walker to 1.38, 52% of predicted. This | | | represents 190 mL improvement or 16%. LUNG VOLUMES: The total lung | | | capacity was 3.60 L or 76 % of predicted. The residual volume was | | | 1.63 L or 104 % of predicted. RV/TLC ratio was 137 % of predicted. | | | DIFFUSION CAPACITY: The diffusion capacity was 18.9 mL/mmHg per | | | minute or 74 % of predicted. IMPRESSION: Spirometry is | | | consistent with primarily moderate restrictive physiology. The | | | shape of the patient's flow volume loop and her response to | | | albuterol as raised question regarding the presence of airflow | | | obstruction. Lung volume testing is consistent with mild restrictive | | | physiology. Diffusion capacity is borderline abnormal and is not | | | corrected for measured hemoglobin. Given these pulmonary | | | function values and physical characteristics the use findings seem | | | primarily consistent with those noted with morbid obesity. Test | | | performed: 01/26/14 Electronically signed by: Adolfo Zazueta | | Dianelys BECKHAM 01/27/2014 10:19 [facility] | | + + + + + | Procedure Note | + + | Adolfo Zazueta MD - 01/27/2014 10:19 AM PDT PULMONARY FUNCTION TESTING | | SPIROMETRY: The prebronchodilator FVC was 1.85 L or 59 % of predicted. The | | prebronchodilator FEV1 was 1.19 L or 45 % of predicted. FEV1/FVC ratio was 64 %. | | Following inhalation of albuterol patient's FEV1 walker to 1.38, 52% of predicted. This | | represents 190 mL improvement or 16%.LUNG VOLUMES: The total lung capacity was 3.60 L or | | 76 % of predicted. The residual volume was 1.63 L or 104 % of predicted. RV/TLC ratio | | was 137 % of predicted. DIFFUSION CAPACITY: The diffusion capacity was 18.9 mL/mmHg per | | minute or 74 % of predicted. IMPRESSION: Spirometry is consistent with primarily | | moderate restrictive physiology. The shape of the patient's flow volume loop and her | | response to albuterol as raised question regarding the presence of airflow obstruction. | | Lung volume testing is consistent with mild restrictive physiology. Diffusion capacity | | is borderline abnormal and is not corrected for measured hemoglobin.Given these | | pulmonary function values and physical characteristics the use findings seem primarily | | consistent with those noted with morbid obesity.Test performed: 01/26/14Electronically | | signed by: Adolfo Zazueta MD 01/27/2014 10:19[facility] | | CENTER | |Test performed: 01/26/14 | |Electronically signed by: Adolfo Zazueta MD 01/27/2014 10:19 | |[facility] | + + documented in this encounter Visit Diagnoses + + | Diagnosis | + + | Dyspnea Other dyspnea and respiratory abnormality | + + documented in this encounter Administered Medications + +--------+ +--------+------+------+ | Medication Order | MAR | Action | Dose | Rate | Site | | | Action | Date | | | | + +--------+ +--------+------+------+ | albuterol 2.5 mg/3 mL nebulizer | Given | 01/27/20 | 2.5 mg | | | | solution 2.5 mg 2.5 mg, | | 14 1:35 | | | | | Nebulization, RT Once, Park | | PM PDT | | | | | 01/26/14 at 1345, For 1 dose, RT | | | | | | | will administer., | | | | | | + +--------+ +--------+------+------+ +---+---+ | | | +---+---+ documented in this encounter"
--- OUTSIDE RECORDS SUMMARY | ~2019-06-14 | XMS | Encounter Summary ---
Demographics + + + | Address | [address] | | | [place] [address] | + + + | Home Phone [...] Team Providers + +------+ + | Care Tool Rental Technician Name | Role | Phone | + +------+ + | Iqra Peralta MD | PCP | | + +------+ + Encounter Details +--------+ + + + + | Date | Type | Department | Care Team | Description | +--------+ + + + + | 07/09/ | Telephone | Digestive Health | Yaritza Venegas, | | | 2019 | | Center at [facility] [address] | MD [address] | | | | | [address] | [place], [place] | | | | | Mailcode: Flasher | [address] | | | | | for Health and | [phone] | | | | | [facility] [address] | | | | | | [place], [place] | | | | | | [address] | | | | | | [phone] | | | +--------+ + + + [...] on filedocumented as of this encounter Results VITAMIN D, 25-HYDROXY, SERUM (07/09/2018 4:20 PM PST) + +-------+ + + + | Component | Value | Ref Range | Performed | Pathologist | | | | | At | Signature | + +-------+ + + + | VITAMIN D | 71.4 | 30 - 80 ng/mL [...] | [facility] | | Optimum level: >or=20 ng/mL | LABORATORY | | >18years: Deficiency: <20 | SERVICES, CORE | | ng/mL Insufficiency: 20-29 ng/mL | | | Optimum Level: 30-80 ng/mL High: | | | 81-150 ng/ml Toxic: >150 ng/mL | | + + + + + + + + | Performing | Address | City/State/Zipcode | Phone Number | | Organization | | | | + + + + + | [facility] | [address] | [place] [address] | | | SERVICES, CORE | [address] | | | + + + + + VITAMIN B-12 (07/09/2018 4:20 PM PST) + +-------+ + + + | Component | Value | Ref Range | Performed | Pathologist | | | | | At | Signature | + +-------+ + + + | VITAMIN B12 | 583 | 193 - 986 pg/mL | [facility] | | | | | [...] LABORATORY | [address] | [place] [address] | | | SERVICES, CORE | [address] | | | + + + + + VITAMIN B1, WHOLE BLOOD (07/09/2018 4:20 PM PST) + + + + + + | Component | Value | Ref Range | Performed | Pathologist | | | | | At | Signature | + + + + + + | VITAMIN B1, | 142Comment: INTERPRETIVE | 70 - 180 nmol/L | [facility] | | | WHOLE | INFORMATION: Vitamin | | REG UNIV | | | BLOOD | B1, Whole Blood This | | PTH - [facility] | | | | assay measures the | | | | | | concentration of | | | | | | thiamine diphosphate | | | | | | (TDP), the primary | | | | | | active form of vitamin | | | | | | B1. Approximately 90 | | | | | | percent of vitamin B1 | | | | | | present in whole blood | | | | | | is TDP. Thiamine and | | | | | | thiamine monophosphate, | | | | | | which comprise the | | | | | | remaining 10 percent, | | | | | | are not measured. Test | | | | | | developed and | | | | | | characteristics | | | | | | determined by [facility] | | | | | | Laboratories. See | | | | | | Compliance Statement B: | | | | | | [facility]/CSPerformed | | | | | | by [employer],[address] | | | | | | [address], [facility],[place] | | | | | | [address] | | | | | | [phone].[facility]. | | | | | | Iker mcclain MD, | | | | | | Lab. Director | | | | + + + + + + + + | Specimen | + + | Blood - Blood | | (substance) | + + + + + + + | Performing | Address | City/State/Zipcode | Phone Number | | Organization | | | | + + + + + | [facility] | [address] | [place], [place] | | | UNIV PTH - [facility] | | [address] | | + + + + + PTH, SERUM (07/09/2018 4:20 PM PST) + +-------+ + + + | Component | Value | Ref Range | Performed | Pathologist | | | | | At | Signature | + +-------+ + + + | PTH, SERUM | 74 | 18 - 88 pg/mL | [facility] | | | | | [...] | + + + + + | [facility] | [address] | [place] [address] | | | SERVICES, [facility] | [address] | | | + + + + + METHYLMALONIC ACID, SERUM (07/09/2018 4:20 PM PST) + + + + + + | Component | Value | Ref Range | Performed | Pathologist | | | | | At | Signature | + + + + + + | METHYLMALON | 0.18Comment: | 0.00 - 0.40 | [facility] | | | IC ACID | INTERPRETIVE | umol/L | REG UNIV | | | | INFORMATION: MMA | | PTH - [facility] | | | | Serum/Plasma, | | | | | | | | | | | | Vitamin B12 Status | | | | | | Test developed and | | | | | | characteristics | | | | | | determined by [facility] | | | | | | Laboratories. See | | | | | | Compliance Statement B: | | | | | | [facility]/CSPerformed | | | | | | by [employer],[address] | | | | | | [address], [facility],[place] | | | | | | [address] | | | | | | [phone].[facility]. | | | | | | Iker mcclain MD, | | | | | | Lab. Director | | | | + + + + + + + + | Specimen | + + | Blood - Blood | | (substance) | + + + + + + + | Performing | Address | City/State/Zipcode | Phone Number | | Organization | | | | + + + + + | [facility] | [address] | [place], [place] | | | UNIV PTH - [facility] | | [address] | | + + + + + IRON AND TIBC (07/09/2018 4:20 PM PST) + +--------+ + + + | Component | Value | Ref Range | Performed | Pathologist | | | | | At | Signature | + +--------+ + + + | IRON | 49 | 30 - 160 ug/dL | [facility] | | | | | | LABORATORY | | | | | | SERVICES, | | | | | | CORE | | + +--------+ + + + | IRON BIND | 413 | 240 - 450 ug/dL | [facility] | | | CAP | | | LABORATORY | | | | | | SERVICES, | | | | | | CORE | | + +--------+ + + + | % | 12 (L) | 20 - 50 % | [facility] | | | SATURATION | | | LABORATORY | | | TRANSFERRIN | | | SERVICES, | | | , | | | CORE | | + +--------+ + + + + + | Specimen | + + | Blood - Blood | | (substance) | + + + + + + + | Performing | Address | City/State/Zipcode | Phone Number | | Organization | | | | + + + + + | [facility] | [address] | [place] [address] | | | SERVICES, CORE | [address] | | | + + + + + HOMOCYSTEINE TOTAL, PLASMA (07/09/2018 4:20 PM PST) + + + + + + | Component | Value | Ref Range | Performed | Pathologist | | | | | At | Signature | + + + + + + | HOMOCYSTEIN | 16.5 (H) | 3.5 - 10.4 | [facility] | | | E,PLASMA,TO | | umol/L | LABORATORY | | | ROLAND | | | SERVICES, | | | [...] LABORATORY | [address] | [place] [address] | | | SERVICES, SPECIAL | [address] | | | | IMM + COAG | | | | + + + + + FERRITIN (07/09/2018 4:20 PM PST) + + + + + + | Component | Value | Ref Range | Performed | Pathologist | | | | | At | Signature | + + + + + + | FERRITIN | 53Comment: Male and | 50 - 200 ng/mL | [facility] | | | | Female >18 years: | | LABORATORY | | | | <20 ng/mL: | | SERVICES, | | | | Consistant with iron | | CORE | | | | deficiency 21-50 | | | | | | ng/mL: Possible | | | | | | iron deficiency 51-99 | | | | | | ng/mL: Iron | | | | | | deficiency unlikely | | | | | | unless inflammation | | | | | | present or | | | | | | patient | | | | | | >65 years of age | | | | | | 100-200 ng/mL: | | | | | | Normal, not consistent | | | | | | with iron deficiency | | | | | | >200 ng/mL: If | | | | | | transferrin saturation | | | | | | >45%, consider | | | | | | hemochromatosis | | | | + + + + + + + + | Specimen | + + | Blood - Blood | | (substance) | + + + + + + + | Performing | Address | City/State/Zipcode | Phone Number | | Organization | | | | + + + + + | [facility] | [address] | [place] [address] | | | SERVICES, CORE | [address] | | | + + + + + COMPLETE METABOLIC SET (NA,K,CL,CO2,BUN,CREAT,GLUC,CA,AST,ALT,BILI TOTAL,ALK PHOS,ALB,PROT TOTAL) (07/09/2018 4:20 PM PST) + +---------+ + + + | Component | Value | Ref Range | Performed | Pathologist | | | | | At | Signature | + +---------+ + + + | GLUCOSE, | 121 (H) | 70 - 99 mg/dL | [facility] | | | PLASMA | | | LABORATORY | | | (LAB) | | | SERVICES, | | | | | | CORE | | + +---------+ + + + | BUN, PLASMA | 12 | 6 - 20 mg/dL | [facility] | | | (LAB) | | | LABORATORY | | | | | | SERVICES, | | | | | | CORE | | + +---------+ + + + | CREATININE | 0.64 | 0.60 - 1.10 | [facility] | | | PLASMA | | mg/dL | LABORATORY | | | (LAB) | | | SERVICES, | | | | | | CORE | | + +---------+ + + + | EGFR | >60 | >60 mL/min | [facility] | | | - | | | LABORATORY | | | AUSTRIAN | | | SERVICES, | | | | | | CORE | | + +---------+ + + + | EGFR NON | >60 | >60 mL/min | [facility] | | | -ALIZA | | | LABORATORY | | | RICAN | | | SERVICES, | | | | | | CORE | | + +---------+ + + + | SODIUM, | 138 | 136 - 145 | [facility] | | | PLASMA | | mmol/L | LABORATORY | | | (LAB) | | | SERVICES, | | | | | | CORE | | + +---------+ + + + | POTASSIUM, | 3.9 | 3.4 - 5.0 | [facility] | [...] + + + | TOTAL CO2, | 27 | 21 - 32 mmol/L | [facility] | | | PLASMA | | | LABORATORY | | | (LAB) | | | SERVICES, | | | | | | CORE | | + +---------+ + + + | CALCIUM, | 9.6 | 8.6 - 10.2 | [facility] | | | PLASMA | | mg/dL | LABORATORY | | | (LAB) | | | SERVICES, | | | | | | CORE | | + +---------+ + + + | CALCIUM(ALB | 9.9 | 8.6 - 10.2 | [facility] | | | CORRECTED) | | mg/dL | LABORATORY | | | | | | SERVICES, | | | | | | CORE | | + +---------+ + + + | BILIRUBIN | 0.4 | 0.3 - 1.2 mg/dL | [facility] | | | TOTAL | | | LABORATORY | | | | | | SERVICES, | | | | | | CORE | | + +---------+ + + + | TOTAL | 7.7 | 6.4 - 8.2 g/dL | [facility] | | | PROTEIN, | | | LABORATORY | | | PLASMA | | | SERVICES, | | | (LAB) | | | CORE | | + +---------+ + + + | ALBUMIN, | 3.6 | 3.5 - 4.7 g/dL | [facility] | | | PLASMA | | | LABORATORY | | | (LAB) | | | SERVICES, | | | | | | CORE | | + +---------+ + + + | ALK PHOS | 110 (H) | 42 - 98 U/L | [facility] | | | | | | LABORATORY | | | | | | SERVICES, | | | | | | CORE | | + +---------+ + + + | AST(SGOT) | 14 | <=41 U/L | [facility] | | | | | | LABORATORY | | | | | | SERVICES, | | | | | | CORE | | + +---------+ + + + | ALT (SGPT) | 20 | <=60 U/L | [facility] | | [...] +---------+ + + + | ANION | 10 [...] | + + + + + | [facility] | [address] | [place] [address] | | | MIR [place]APIN | [address] | | | + + + + + documented in this encounter Visit Diagnoses + + | Diagnosis | + + | Impaired intestinal absorption - Primary Unspecified intestinal malabsorption | + + | H/O bariatric surgery Bariatric surgery status | + + documented in this encounter"
--- OUTSIDE RECORDS SUMMARY | ~2019-06-14 | XMS | Encounter Summary ---
Demographics + + + | Address | [address] | | | [place] [address] | + + + | Home Phone | | + + + | Preferred Language | Unknown | + + + | Marital Status | Single | + + + | Judaism Affiliation | Unknown | + + + | Race | Unknown | + + + | Ethnic Group | Unknown | + + + Author + + + | Author | [facility] | | | and [place] | + + + | Organization | [facility] | | | and [...] Team Providers + +------+ + | Care Ed Physicians Name | Role | Phone | + +------+ + PCP | Unavailable | + +------+ + Reason for Visit + + + | Reason | Comments | + + + | Medication Refill | | + + + Encounter Details +--------+--------+ + + + | Date | Type | Department | Care Team | Description | +--------+--------+ + + + | 11/03/ | Refill | [facility] | Magdiel Stern PA | Medication Refill | | 2012 | | SLEEP DISORDER [address] | [address] | | | | | [address] [place] | [place], [place] | | | | | [place] [address] | [address] | | | | | [phone] | | | +--------+--------+ + + + [...] [place] | | | | | | [id number] | | | | | | | | +--------+---------+ + + + | 01/18/ | Office | Sleep Medicine | Jermaine Fairchild | | | 2019 | Visit | | MD [address] | | | | | | [address] | | | | | | [place] [address] | | | | | | [phone] | | | | | | | | +--------+---------+ + + + documented as of this encounter Visit Diagnoses + + | Diagnosis | + + | Obstructive sleep apnea (adult) (pediatric) - Primary | + + documented in this encounter"
--- OUTSIDE RECORDS SUMMARY | ~2019-06-14 | XMS | Clinical Summary ---
Demographics + + + | Address | [address] | | | [place] [address] | + + + | Home Phone | | + + + | Preferred Language | Unknown | + + + | Marital Status | Single | + + + | Faith Affiliation | Unknown | + + + | Race | Unknown | + + + | Ethnic Group | Unknown | + + + Author + + + | Author | [facility] (Historical as of | | | 01-15-19) | + + + | Organization | [facility] (Historical as of | | | 01-15-19) | + + + | Address | Unknown | + + + | Phone | Unavailable | + + + Support + + +---------+ + | Name | Relationship | Address | Phone | + + +---------+ + | An Carlin | ECON | , [place] | | + + +---------+ + Care Team Providers + +------+ + | Care Receiving Associate Name | Role | Phone | [...] by | 360 mL | 0 | 06/2 | | Activ | | ipratropium-albutero | [...] | 4 | + + + + Immunizations + + + + | Name [...] | Screening | 9 | | | | (Mammogram) | | | | + + + + + | Colon Cancer | | | | | Screening | 9 | | | | (Colonoscopy) | | | | + + + + + | Vaccine: Zoster (1 | | | | | of 2) | 9 | | | + + + + + | Vaccine: Influenza | | 03/16/2017, 02/19/2017, | | | (#1) | 9 | 02/28/2016, Additional history | | | | | exists | | + + + + + | Vaccine: | Completed | 02/16/2018, 11/18/2013, | | | Pneumococcal 19-64 | | 07/02/2013 | | | (PPSV23 only) Medium | | | | | Risk | | | | + + + + + Results Not on filefrom Last 3 Months Insurance + +--------+ +------+-------+ + | Payer | Benefi | Subscriber | Type | Phone | Address | | | t Plan | ID | | | | | | / | | | | | | | Group | | | | | + +--------+ +------+-------+ + | MEDICAID | [place] | [id number] | | | [address] | | | [place] | | | | [place] | | | [place] | | | | [address] | | | [employer] | | | | | + +--------+ [...] Self | [birth year] Home: | [address] | | | al/Fam | | 1971 | [phone] | [place] | | | kevin | | | [phone] | [address] | + +--------+ +--------+ + +
--- OUTSIDE RECORDS SUMMARY | ~2019-06-14 | XMS | Encounter Summary ---
Demographics + + + | Address | [address] | | | [place] [address] | + + + | Home Phone | | + + + | Preferred Language | Unknown | + + + | Marital Status | Single | + + + | Restoration Affiliation | NRP | + + + | Race | White | + + + | Ethnic Group | Not or | + + + Author + + + | Author | [facility] | + + + | Organization | [facility] | + + + | [...] | + + +---------+ + | Lana Crownpoint | ECON | Unknown | | + + +---------+ + Care Team Providers + +------+ + | Care Stroke Program Coordinator Name | Role | Phone | + +------+ + | Iqra Peralta MD | PCP | | + +------+ + Reason for Visit + + + | Reason | Comments | + + + | Erroneous Encounter | | | - Disregard | | + + + Encounter Details +--------+ + + + + | Date | Type | Department | Care Team | Description | +--------+ + + + + | 03/18/ | Telephone | Digestive Health | Traci Do, | Erroneous Encounter | | 2015 | | Center at [facility] [address] | [place] [address] | - Disregard | | | | [address] | [facility] [address] | | | | | Mailcode: Center | [place], [place] | | | | | [facility] [employer] and | [address] | | | | | [facility] [address] | [phone] | | | | | [place], [place] | | | | | | [address] | | | | | | [phone] | | | +--------+ + + + [...]
--- OUTSIDE RECORDS SUMMARY | ~2019-06-14 | XMS | Encounter Summary ---
Demographics + + + | Address | [address] | | | [place] [address] | + + + | Home Phone [...] Author + + + | Author | [facility] | | | and [place] | + + + | Organization | [facility] | | | and [...] Team Providers + +------+ + | Care Finding Fastener Name | Role | Phone | + +------+ + | Iqra Peralta MD | PCP | | + +------+ + Encounter Details +--------+ + + + + | Date | Type | Department | Care Team | Description | +--------+ + + + + | 01/01/ | Imaging | [facility] | Provider, | | | 2018 | Exam | [facility] | MD [address] | | | | | IMAGING | [address] | | | | | [phone] | [place] [address] | | +--------+ + + + + [...] [place] | | | | | | [id number] | | | | | | | | +--------+---------+ + + + | 01/18/ | Office | Sleep Medicine | Jermaine Fairchild | | 2019 | Visit | | MD Jac Sousa | | | | | | [address] | | | | | | [place] [address] | | | | | | [phone] | | | | | | | | +--------+---------+ + + + documented as of this encounter Procedures + +--------+ + + + | Procedure Name | Priori | Date/Time | Associated Diagnosis | Comments | | | ty | | | | + +--------+ + + + | XR LUMBAR SPINE 2 OR | Routin | 10/27/2017 | | Results for this | | 3 VW | e | 1:50 PM | | procedure are in the | | | | PDT | | results section. | + +--------+ + + + documented in this encounter Results XR Lumbar Spine 2 or 3 Vw (10/27/2017 1:50 PM PDT) + + | Specimen | + + | | + + + + + | Narrative | Performed At | + + + | External films for comparison only | [facility] | | | | | No results will be in the chart. | | + + + + +---------+ + + | Performing | Address | City/State/Zipcode | Phone Number | | Organization | | | | + +---------+ + + | [facility] | | | | + +---------+ + + documented in this encounter Visit Diagnoses Not on filedocumented in this encounter"
--- OUTSIDE RECORDS SUMMARY | ~2019-06-14 | XMS | Encounter Summary ---
Demographics + + + | Address | [address] | | | [place] [address] | + + + | Home Phone | | + + + | Preferred Language | Unknown | + + + | Marital Status | Single | + + + | Sabianist Affiliation | NRP | + + + | Race | White | + + + | Ethnic Group | Not or | + + + Author + + + | Author | [facility] | + + + | Organization | [facility] | + + + | [...] | + + +---------+ + | Lana Benicia | ECON | Unknown | | + + +---------+ + Care Team Providers + +------+ + | Care Business Taxes Specialist Name | Role | Phone | + +------+ + | Bassam Ross DO | PCP | | + +------+ + Encounter Details +--------+------+ + + + | Date | Type | Department | Care Team | Description | +--------+------+ + + + | 11/13/ | Lab | Laboratory at [facility] | | B12 nutritional | | 2016 | | [address] | | deficiency; S/P | | | | [place], [place] | | laparoscopic sleeve | | | | [address] | | gastrectomy | | | | [phone] | | | +--------+------+ + + + [...] | CBC (HEMOGRAM) ONLY | Routin | 11/14/2015 | B12 nutritional | Results for this | | | e | 2:45 PM | deficiency S/P | procedure are in the | | | | PDT | laparoscopic sleeve | results section. | | | | | gastrectomy | | + +--------+ + + + | VITAMIN B1, WHOLE | Routin | 11/14/2015 | B12 nutritional | Results for this | | BLOOD | e | 2:45 PM | deficiency S/P | procedure are in the | | | | PDT | laparoscopic sleeve | results section. | | | | | gastrectomy | | + +--------+ + + + | VITAMIN D, | Routin | 11/14/2015 | B12 nutritional | Results for this | | 25-HYDROXY, SERUM | e | 2:45 PM | deficiency S/P | procedure are in the | | | | PDT | laparoscopic sleeve | results section. | | | | | gastrectomy | | + +--------+ + + + | COMPLETE METABOLIC | Routin | 11/14/2015 | B12 nutritional | Results for this | | SET | e | 2:45 PM | deficiency S/P | procedure are in the | | (NA,K,CL,CO2,BUN,CRE | | PDT | laparoscopic sleeve | results section. | | AT,GLUC,CA,AST,ALT,B | | | gastrectomy | | | JAYCEE TOTAL,ALK | | | | | | PHOS,ALB,PROT TOTAL) | | | | | + +--------+ + + + | CBC ONLY | Routin | 11/14/2015 | B12 nutritional | Results for this | | | e | 2:45 PM | deficiency S/P | procedure are in the | | | | PDT | laparoscopic sleeve | results section. | | | | | gastrectomy | | + +--------+ + + + | FERRITIN | Routin | 11/14/2015 | B12 nutritional | Results for this | | | e | 2:45 PM | deficiency S/P | procedure are in the | | | | PDT | laparoscopic sleeve | results section. | | | | | gastrectomy | | + +--------+ + + + | PTH, SERUM | Routin | 11/14/2015 | B12 nutritional | Results for this | | | e | 2:45 PM | deficiency S/P | procedure are in the | | | | PDT | laparoscopic sleeve | results section. | | | | | gastrectomy | | + +--------+ + + + | VITAMIN B-12 | Routin | 11/14/2015 | B12 nutritional | Results for this | | | e | 2:45 PM | deficiency S/P | procedure are in the | | | | PDT | laparoscopic sleeve | results section. | | | | | gastrectomy | | + +--------+ + + + | IRON AND TIBC, SERUM | Routin | 11/14/2015 | B12 nutritional | Results for this | | | e | 2:45 PM | deficiency S/P | procedure are in the | | | | PDT | laparoscopic sleeve | results section. | | | | | gastrectomy | | + +--------+ + + + documented in this encounter Results CBC (HEMOGRAM) ONLY (11/14/2015 2:45 PM PDT) + + + + + + | Component | Value | Ref Range | Performed | Pathologist | | | | | At | Signature | + + + + + + | WHITE CELL | 12.35 (H) | 4.40 - 11.00 | [facility] | | | COUNT | | K/cu mm | LABORATORY | | | | | | SERVICES, | | | | | | [facility] | | [facility] | | + + + + + + | RED CELL | 4.95 | 4.00 - 5.20 | [facility] | | | COUNT | | M/cu mm | LABORATORY | | | | | | SERVICES, | | | | | | [facility] + | | | | | | [facility] | | + + + + + + | HEMOGLOBIN | 16.1 (H) | 12.0 - 16.0 | [facility] | | | | | g/dL | LABORATORY | | | | | | SERVICES, | | | | | | [facility] + | | | | | | [facility] | | + + + + + + | HEMATOCRIT | 47.5 (H) | 36.0 - 46.0 % | [facility] | | | | | | LABORATORY | | | | | | SERVICES, | | | | | | [facility] + | | | | | | [facility] | | + + + + + + | MCV | 96.0 | 80.0 - 96.0 fL | [facility] | | | | | | LABORATORY | | | | | | SERVICES, | | | | | | [facility] + | | | | | | [facility] | | + + + + + + | MCHC | 33.9 | 33.0 - 35.5 | [facility] | | | | | g/dL | LABORATORY | | | | | | SERVICES, | | | | | | [facility] + | | | | | | [facility] | | + + + + + + | RDW SD | 50.5 (H) | 35.1 - 46.3 fL | [facility] | | | | | | LABORATORY | | | | | | SERVICES, | | | | | | [facility] + | | | | | | [facility] | | + + + + + + | PLATELET | 351 | 150 - 400 K/cu | [facility] | | | COUNT | | mm | LABORATORY | | | | | | SERVICES, | | | | | | [facility] + | | | | | | [facility] | | + + + + + + | MPV | 9.3 (L) | 9.7 - 12.3 fL | [facility] [...] | + + + + + | [facility] | [address] | [place] [address] | | | [facility] | | | | | HEALTH + HEALING | | | | + + + + + VITAMIN B1, WHOLE BLOOD (11/14/2015 2:45 PM PDT) + + + + + + | Component | Value | Ref Range | Performed | Pathologist | | | | | At | Signature | + + + + + + | VITAMIN B1, | 114Comment: INTERPRETIVE | 70 - 180 nmol/L | [...] | | | | | determined by [facility] | | | | | | Laboratories. See | | | | | | Compliance Statement B: | | | | | | [employer]/CSPerformed | | | | | | by [employer],[address] | | | | | [address], [facility] | | | | | | [address] | | | | | | [phone][employer]. | | | | | | [employer], Tirso Montelongo, | | | | | | , Lab. Director | | | | + + + + + + + + | Specimen | + + | Blood - Blood | + + + + + + + | Performing | Address | City/State/Zipcode | Phone Number | | Organization | | | | + + + + + | [facility] | [address] | [place], [place] | | | [facility] | | [address] | | + + + + + VITAMIN B-12 (11/14/2015 2:45 PM PDT) + +-------+ + + + | Component | Value | Ref Range | Performed | Pathologist | | | | | At | Signature | + +-------+ + + + | VITAMIN B12 | 579 | 193 - 986 pg/mL | [facility] | | | | | | LABORATORY | | | | | | SERVICES, | | | | | | CORE | | + +-------+ + + + | COMMENT | 1 | | [facility] | | | (HEMO) | | | LABORATORY | | | | | | SERVICES, | | | | | | CORE | | + +-------+ + + + | COMMENT | 1 | | [facility] | | | (ICTERUS) | | | LABORATORY | | | | | | SERVICES, | | | | | | CORE | | + +-------+ + + + | COMMENT | 1 | | [facility] | | | (LIPEMIA) | | | LABORATORY | | | | | | SERVICES, | | | | | | CORE | | + +-------+ + + + + + | Specimen | + + | Blood - Blood | | (substance) | + + + + + | Narrative | Performed At | + + + | New method and performing lab effective 11/13/15. | [facility] | | | LABORATORY | | | SERVICES, CORE | + + + + + + + + | Performing | Address | City/State/Zipcode | Phone Number | | Organization | | | | + + + + + | [facility] | [address] | [place] [address] | | | SERVICES, CORE | [address] | | | + + + + + FERRITIN (11/14/2015 2:45 PM PDT) + + + + + + | Component | Value | Ref Range | Performed | Pathologist | | | | | At | Signature | + + + + + + | FERRITIN | 91Comment: Male and | 50 - 200 ng/mL [...] LABORATORY | [address] | [place] [address] | | | SERVICES, CORE | [address] | | | + + + + + IRON AND TIBC (11/14/2015 2:45 PM PDT) + +--------+ + + + | Component | Value | Ref Range | Performed | Pathologist | | | | | At | Signature | + +--------+ + + + | IRON | 51 | 30 - 160 ug/dL | [facility] | | | | | | LABORATORY | | | | | | SERVICES, | | | | | | CORE | | + +--------+ + + + | IRON BIND | 394 | 240 - 450 ug/dL | [facility] | | | CAP | | | LABORATORY | | | | | | SERVICES, | | | | | | CORE | | + +--------+ + + + | % | 13 (L) | 20 - 50 % | [...] + | [facility] | [address] | [place] [address] | | | SERVICES, CORE | [address] | | | + + + + + PTH, SERUM (11/14/2015 2:45 PM PDT) + +-------+ + + + | Component | Value | Ref Range | Performed | Pathologist | | | | | At | Signature | + +-------+ + + + | PTH, SERUM | 50 | 12 - 77 pg/mL | [facility] | | | | | | LABORATORY | | | | | | SERVICES, | | | | | | CORE | | + +-------+ + + + + + | Specimen | + + | Blood - Blood | | (substance) | + + + + + | Narrative | Performed At | + + + | New performing lab, method and reference range effective | [facility] | | 12/20/14. | LABORATORY | | | [address] | + + + + + + + + | Performing | Address | City/State/Zipcode | Phone Number | | Organization | | | | + + + + + | [facility] | [address] | [place] [address] | | | [address] | [address] | | | + + + + + VITAMIN D, 25-HYDROXY, SERUM (11/14/2015 2:45 PM PDT) + + + + + + | Component | Value | Ref Range | Performed | Pathologist | | | | | At | Signature | + + + + + + | VITAMIN D | 22.7 (L) | 30 - 80 ng/mL | [...] LABORATORY | [address] | [place] [address] | | | SERVICES, CORE | [address] | | | + + + + + COMPLETE METABOLIC SET (NA,K,CL,CO2,BUN,CREAT,GLUC,CA,AST,ALT,BILI TOTAL,ALK PHOS,ALB,PROT TOTAL) (11/14/2015 2:45 PM PDT) + + + + + + | Component | Value | Ref Range | Performed | Pathologist | | | | | At | Signature | + + + + + + | GLUCOSE, | 102 (H) | 60 - 99 mg/dL | [...] | | | LABORATORY | | | VENE[place]AN | | | SERVICES, | | | | | | CORE | | + + + + + + | EGFR NON | >60 | >60 mL/min | [facility] | | | -ALIZA | | | LABORATORY | | | RICAN | | | SERVICES, | | | | | | CORE | | + + + + + + | SODIUM, | 138 [...] + + + + | CALCIUM, | 9.7 | 8.6 - 10.2 | [facility] | | | PLASMA | | mg/dL | LABORATORY | | | (LAB) | | | SERVICES, | | | | | | CORE | | + + + + + + | BILIRUBIN | 0.4 | 0.3 - 1.2 mg/dL | [facility] | | | TOTAL | | | LABORATORY | | | | | | SERVICES, | | | | | | CORE | | + + + + + + | TOTAL | 8.6 (H) | 6.4 - 8.2 g/dL | [facility] | | | PROTEIN, | | | LABORATORY | | | PLASMA | | | SERVICES, | | | (LAB) | | | CORE | | + + + + + + | ALBUMIN, | 3.5 | 3.5 - 4.7 g/dL | [facility] | | | PLASMA | | | LABORATORY | | | (LAB) | | | SERVICES, | | | | | | CORE | | + + + + + + | ALK PHOS | 113 (H) | 42 - 98 U/L | [...] ANION GAP | 6 | mmol/L | [facility] | | | [...] | + + + + + | [facility] | [address] | [place] [address] | | | [address] | [address] | | | + + + + + documented in this encounter Visit Diagnoses + + | Diagnosis | + + | B12 nutritional deficiency Other B-complex deficiencies | + + | S/P laparoscopic sleeve gastrectomy | + + documented in this encounter"
--- OUTSIDE RECORDS SUMMARY | ~2019-06-14 | XMS | Encounter Summary ---
Demographics + + + | Address | [address] | | | [place] [address] | + + + | Home Phone [...] | + + +---------+ + | Lana Richmond | ECON | Unknown | | + + +---------+ + Care Team Providers + +------+ + | Care Drug Abuse Resistance Education Officer Name | Role | Phone | + +------+ + | Bassam Ross DO | PCP | | + +------+ + Encounter Details +--------+ + + + + | Date | Type | Department | Care Team | Description | +--------+ + + + + | 06/08/ | Abstract | Digestive Health | Tilgner, Thania F, | | | 2013 | | Center at [facility] [address] | [facility] [address] | | | | | [address] | [place], [place] | | | | | Mailcode: [place] | [address] | | | | | for Health and | | | | | | [facility] [address] | | | | | | [place], [place] | | | | | | [address] | | | | | | | [...]
--- OUTSIDE RECORDS SUMMARY | ~2019-06-14 | XMS | Encounter Summary ---
Demographics + + + | Address | [address] | | | [place] [address] | + + + | Home Phone | | + + + | Preferred Language | Unknown | + + + | Marital Status | Single | + + + | Mandaen Affiliation | Unknown | + + + | Race | Unknown | + + + | Ethnic Group | Unknown | + + + Author + + + | Author | [facility] | | | and [place] | + + + | Organization | [facility] | | | [...] Team Providers + +------+ + | Care Electrical Maintenance Supervisor Name | Role | Phone | + +------+ + | Bassam Ross DO | PCP | | + +------+ + Encounter Details +--------+ + + + + | Date | Type | Department | Care Team | Description | +--------+ + + + + | 12/27/ | Orders Only | [facility] | Shellie Enriquez, | Dyspnea | | 2013 | | PULMONARY [address] | RN | | | | | [place], | | | | | | [place] [address] | | | | | | [phone] | | | +--------+ + + + [...] | | | | | [place] [address] | | | | | | [phone] | | | | | | | | +--------+---------+ + + + documented as of this encounter Visit Diagnoses + + | Diagnosis | + + | Dyspnea Other dyspnea and respiratory abnormality | + + documented in this encounter"
--- OUTSIDE RECORDS SUMMARY | ~2019-06-14 | XMS | Encounter Summary ---
Demographics + + + | Address | [address] | | | [place] [address] | + + + | Home Phone | | + + + | Preferred Language | Unknown | + + + | Marital Status | Single | + + + | Adventist Affiliation | NRP | + + + [...] | + + +---------+ + | Lana [place] | ECON | Unknown | | + + +---------+ + Care Team Providers + +------+ + | Care Dredging Inspector Name | Role | Phone | + +------+ + | Bassam Ross DO | PCP | | + +------+ + Encounter Details +--------+ + + + + | Date | Type | Department | Care Team | Description | +--------+ + + + + | 08/22/ | Documentati | Digestive Health | Clinic, Surgery | | | 2016 | on | Center at [facility] [address] | | | | | | [address] | | | | | | Mailcode: [facility] [place] | | | | | | for Health and | | | | | | Healing, [address] | | | | | | [place], [place] | | | | | | [address] | | | | | | [phone] | | | +--------+ + + + [...]
--- OUTSIDE RECORDS SUMMARY | ~2019-06-14 | XMS | Encounter Summary ---
Demographics + + + | Address | [address] | | | [place] [address] | + + + | Home Phone [...] + + + | Author | [facility] | + + + | Organization | [facility] | + + + | Address [...] | + + +---------+ + | Lana Alexander | ECON | Unknown | | + + +---------+ + Care Team Providers + +------+ + | Care Reconciliation Accountant Name | Role | Phone | + +------+ + | Bassam Ross DO | PCP | | + +------+ + Encounter Details +--------+ + + + + | Date | Type | Department | Care Team | Description | +--------+ + + + + | 02/26/ | Telephone | Digestive Health | Yaritza Venegas, | | | 2017 | | Center at [facility] [address] | MD [address] | | | | | [address] | [place], [place] | | | | | Mailcode: [place] | [address] | | | | | for Health and | | | | | | [facility] [address] | | | | | | [place], [place] | | | | | | [address] | | | | | | | [...] Diagnosis | + + | History of sleeve gastrectomy - Primary | + + | Morbid obesity (HCC) Morbid obesity | + + documented in this encounter"
--- OUTSIDE RECORDS SUMMARY | ~2019-06-14 | XMS | Clinical Summary ---
Demographics + + + | Address | [address] | | | [place] [address] | + + + | Home Phone | | + + + | Preferred Language | Unknown | + + + | Marital Status | Single | + + + | Yazidism Affiliation | Unknown | + + + | Race | Unknown | + + + | Ethnic Group | Unknown | + + + Author + + + | Author | [facility] | | | and [place] | + + + | Organization | [facility] | | | and [...] Team Providers + +------+ + | Care Glass Furnace Tender Name | Role | Phone | + +------+ + | Iqra Peralta MD | PCP | | + +------+ + Allergies + + + + + + | Active Allergy | Reactions | Severity | Noted | Comments | | | | | Date | | + + + + + + | Amoxicillin | Hives | High | 01/04/20 | | | | | | 14 | | + + + + + + | Clarithromycin | Hives, Rash | High | 09/12/19 | | | | | | 10 | | + + + + + + | Fluticasone-Salmeter | Hives | High | | | | ol | | | | | + + + + + + | Gabapentin | Hives | High | 12/14/19 | | | | | | 14 | | + + + + + + | Hydrocodone | Itching | Low | | | + + + + + + | Oxycodone | Itching | Low | 12/14/19 | | | | | | 14 | | + + + + + + | Phendimetrazine | Other (See Comments) | | | | + + + + + + | Phendimetrazine | Palpitations | High | 12/14/19 | Other reaction(s): | | Tartrate | | | 14 | Irregular heart | | | | | | rate | + + + + + + | Sulfa Antibiotics | Rash | High | 01/04/20 | | | | | | 14 | | + + + + + + | Sulfamethoxazole-Tri | Hives | High | 11/18/19 | Other reaction(s): | | methoprim | | | 14 | Respiratory | | | | | | distress | + + + + + + Medications + + + +---------+------+------+-------+ | Medication | Sig | Dispensed | Refills | Star | End | Statu | | | | | | t | Date | s | | | | | | Date | | | + + + +---------+------+------+-------+ | UNCODED | Diagnosis: | 1 | 0 | 0 | | Activ | | MEDICATIONIndication | Obstructive Sleep | Device | | 10/18 | | e | | s: Obstructive sleep | ApneaICD-9: | | | 13 | | | | apnea (adult) | 327.23Length of | | | | | | | (pediatric) | Need: 99 Months | | | | | | + + + +---------+------+------+-------+ | ergocalciferol | Take 50,000 Units by | | 0 | | | Activ | | (VITAMIN D-2) 50,000 | mouth Three times a | | | | | e | | units capsule | week. | | | | | | + + + +---------+------+------+-------+ | furosemide (LASIX) | Take 40 mg by mouth | | 0 | 09 | | Activ | | 40 mg tablet | Twice daily as | | | 3/20 | | e | | | needed for Edema. | | | 12 | | | + + + +---------+------+------+-------+ | UNCODED | Wear when sleeping. | 1 | 0 | 12/1 | | Activ | | MEDICATIONIndication | | Device | | 2/20 | | e | | s: ANNABEL (obstructive | | | | 13 | | | | sleep apnea) | | | | | | | + + + +---------+------+------+-------+ | UNCODED MEDICATION | Convert CPAP to | 1 | 0 | 02/1 | | Activ | | | purchase for ANNABEL | Device | | 8/20 | | e | | | (327.23) | | | 14 | | | + + + +---------+------+------+-------+ | Uncoded | Lifelong-99;Obstucti | 1 | 0 | 04/1 | | Activ | | MedicationIndication | e Sleep Apnea | Device | | 20 | | e | | s: Obstructive sleep | | | | 14 | | | | apnea (adult) | | | | | | | | (pediatric) | | | | | | | + + + +---------+------+------+-------+ | omeprazole | Take 20 mg by mouth | | 1 | 11/0 | | Activ | | (PRILOSEC) 20 mg | every morning | | | 8/20 | | e | | capsule | (before breakfast). | | | 16 | | | | | Take one capsule | | | | | | | | daily | | | | | | + + + +---------+------+------+-------+ | VENTOLIN HFA 108 | Inhale 2 puffs into | | 0 | | | Activ | | (90 BASE) MCG/ACT | the lungs every 4 | | | | | e | | inhaler | hours as needed for | | | | | | | | Wheezing. | | | | | | + + + +---------+------+------+-------+ | atorvaSTATin | Take 10 mg by mouth | | 1 | 12/0 | | Activ | | (LIPITOR) 10 mg | Daily. | | | 02/18 | | e | | tablet | | | | 17 | | | + + + +---------+------+------+-------+ | pramipexole | Take 1.5 mg by mouth | | 0 | | | Activ | | (MIRAPEX) 1.5 MG | 2 times daily. | | | | | e | | tablet | | | | | | | + + + +---------+------+------+-------+ | buPROPion | take 1 tablet by | | 0 | 02/0 | | Activ | | (WELLBUTRIN XL) 300 | mouth once daily | | | 12/18 | | e | | mg 24 hr tablet | | | | 18 | | | + + + +---------+------+------+-------+ | dilTIAZem (TIAZAC) | take 1 capsule by | | 0 | 02/0 | | Activ | | 360 MG 24 hr | mouth at bedtime | | | 6/20 | | e | | capsule | | | | 18 | | | + + + +---------+------+------+-------+ | metFORMIN | take 1 tablet by | | 0 | 02/0 | | Activ | | (GLUCOPHAGE) 1000 MG | mouth twice a day | | | 7/20 | | e | | tablet | | | | 18 | | | + + + +---------+------+------+-------+ | warfarin | 10 mg. Take 7.5mg | | 0 | | | Activ | | (COUMADIN) 5 mg | three days per week | | | | | e | | tablet | and 5mg four days | | | | | | | | per week or as | | | | | | | | directed | | | | | | + + + +---------+------+------+-------+ | albuterol | Inhale 2 puffs into | | 0 | | | Activ | | (VENTOLIN HFA) 90 | the lungs every 4 | | | | | e | | mcg/puff inhaler | hours as needed for | | | | | | | | Shortness of Breath. | | | | | | + + + +---------+------+------+-------+ | amitriptyline | amitriptyline 25 mg | | 0 | 12/2 | | Activ | | (ELAVIL) 25 mg | tablet Take 2 | | | 20 | | e | | tabletIndications: | tablets every day by | | | 11 | | | | Proteinuria, | oral route at | | | | | | | unspecified type | bedtime. | | | | | | + + + +---------+------+------+-------+ | buPROPion | take 1 tablet by | | 0 | 05/2 | | Activ | | (WELLBUTRIN XL) 150 | mouth once daily | | | 1/20 | | e | | mg 24 hr | WITH 300 MG TABLET | | | 18 | | | | tabletIndications: | | | | | | | | Proteinuria, | | | | | | | | unspecified type | | | | | | | + + + +---------+------+------+-------+ | diclofenac | apply 2 to 4 grams | | 0 | 06/0 | | Activ | | (VOLTAREN) 1% | to affected area OF | | | 7/20 | | e | | GELIndications: | KNEE FOR PAIN four | | | 18 | | | | Proteinuria, | times a day if | | | | | | | unspecified type | needed | | | | | | + + + +---------+------+------+-------+ | cefadroxil | Take 500 mg by mouth | | 0 | | | Activ | | (DURICEF) 500 mg | Daily. | | | | | e | | capsule | | | | | | | + + + +---------+------+------+-------+ | empagliflozin | Take 25 mg by mouth | | 0 | | | Activ | | (JARDIANCE) 25 mg | Daily. | | | | | e | | tablet | | | | | | | + + + +---------+------+------+-------+ | FEROSUL 325 (65 | Take 325 mg by mouth | | 0 | 12/1 | | Activ | | Fe) MG tablet | Twice Daily. | | | 12/18 | | e | | | | | | 18 | | | + + + +---------+------+------+-------+ | gabapentin | Take 100 mg by mouth | | 0 | 05/01 | | Activ | | (NEURONTIN) 100 mg | 3 times daily. | | | 12/18 | | e | | capsule | | | | 18 | | | + + + +---------+------+------+-------+ | | Take 1 tablet by | | 0 | 0 | | Activ | | HYDROcodone-acetamin | mouth Twice Daily. | | | 01/18 | | e | | ophen (NORCO) 5-325 | | | | 18 | | | | mg per tablet | | | | | | | + + + +---------+------+------+-------+ | levothyroxine | Take 88 mcg by mouth | | 0 | 05/01 | | Activ | | (SYNTHROID) 88 mcg | Daily. | | | 12/18 | | e | | tablet | | | | 18 | | | + + + +---------+------+------+-------+ | LORazepam (ATIVAN) | Take 0.5 mg by mouth | | 0 | | | Activ | | 0.5 mg tablet | Daily as needed. | | | | | e | + + + +---------+------+------+-------+ | losartan (COZAAR) | Take 25 mg by mouth | | 1 | 12/0 | | Activ | | 25 mg tablet | Daily. | | | 8/20 | | e | | | | | | 18 | | | + + + +---------+------+------+-------+ | valACYclovir | Take 1 g by mouth | | 0 | | | Activ | | (VALTREX) 1 g tablet | Daily. | | | | | e | + + + +---------+------+------+-------+ | beclomethasone HFA | Inhale 2 puffs into | 1 | 11 | 12/3 | | Activ | | (QVAR REDIHALER) 80 | the lungs 2 times | Inhaler | | 1/20 | | e | | mcg/puff | daily. | | | 18 | | | | inhalerIndications: | | | | | | | | Mild persistent | | | | | | | | asthma without | | | | | | | | complication | | | | | | | + + + +---------+------+------+-------+ | fluconazole | take 1 tablet by | | 0 | 09/0 | | Activ | | (DIFLUCAN) 100 mg | mouth once daily | | | 2/20 | | e | | tablet | | | | 18 | | | + + + +---------+------+------+-------+ | fluconazole | take 1 tablet by | | 0 | 08/2 | | Activ | | (DIFLUCAN) 150 mg | mouth daily | | | 6/20 | | e | | tablet | | | | 18 | | | + + + +---------+------+------+-------+ | metoprolol | Take 25 mg by mouth | | 0 | | | Activ | | succinate | daily. | | | | | e | | (TOPROL-XL) 25 mg 24 | | | | | | | | hr tablet | | | | | | | + + + +---------+------+------+-------+ | NYSTATIN [id number] | apply topically to | | 0 | 08/2 | | Activ | | UNIT/GM powder | affected area twice | | | /20 | | e | | | a day | | | 18 | | | + + + +---------+------+------+-------+ | atorvaSTATin | Take 40 mg by mouth | | 0 | | | Activ | | (LIPITOR) 10 mg | every morning. | | | | | e | | tablet | | | | | | | + + + +---------+------+------+-------+ | buPROPion | bupropion HCl XL 150 | | 0 | | | Activ | | (WELLBUTRIN XL) 150 | mg 24 hr tablet, | | | | | e | | mg 24 hr tablet | extended release | | | | | | | | take 1 tablet by | | | | | | | | mouth once daily | | | | | | | | WITH THE WELLBUTRIN | | | | | | | | XL 300 MG TABLET | | | | | | + + + +---------+------+------+-------+ | losartan (COZAAR) | Take 1 tablet by | | 0 | 03/0 | 03/0 | Activ | | 25 mg tablet | mouth 2 (two) times | | | 4/20 | 3/20 | e | | | daily. | | | 19 | 20 | | + + + +---------+------+------+-------+ | warfarin | warfarin 5 mg tablet | | 0 | | | Activ | | (COUMADIN) 5 mg | take 2 tablets by | | | | | e | | tablet | mouth once daily | | | | | | + + + +---------+------+------+-------+ | | take 1 tablet by | | 0 | 07/1 | | Activ | | amoxicillin-clavulan | mouth twice a day | | | 2/20 | | e | | ate (AUGMENTIN) | for 10 days | | | 19 | | | | 875-125 mg per | | | | | | | | tablet | | | | | | | + + + +---------+------+------+-------+ | atorvaSTATin | | | 0 | 02/1 | | Activ | | (LIPITOR) 20 mg | | | | 3/20 | | e | | tablet | | | | 19 | | | + + + +---------+------+------+-------+ | atorvaSTATin | | | 0 | 07/2 | | Activ | | (LIPITOR) 40 mg | | | | 2/20 | | e | | tablet | | | | 19 | | | + + + +---------+------+------+-------+ | Blood Glucose | | | 0 | 03/1 | | Activ | | Monitoring Suppl | | | | 0/20 | | e | | (FREESTYLE LITE) | | | | 19 | | | | KATERIN | | | | | | | + + + +---------+------+------+-------+ | cephalexin | take 1 capsule by | | 0 | 07/0 | | Activ | | (KEFLEX) 250 mg | mouth every 6 hours | | | 6/20 | | e | | capsule | | | | 19 | | | + + + +---------+------+------+-------+ | cephalexin | take 1 capsule by | | 0 | 03/1 | | Activ | | (KEFLEX) 500 mg | mouth three times a | | | 20 | | e | | capsule | day START ON 08/16 | | | 19 | | | + + + +---------+------+------+-------+ | doxycycline | take 1 capsule by | | 0 | 07/1 | | Activ | | (MONODOX) 100 mg | mouth twice a day | | | 2/20 | | e | | capsule | for 10 days | | | 19 | | | + + + +---------+------+------+-------+ | doxycycline | take 1 tablet by | | 0 | 03/1 | | Activ | | (ADOXA) 100 MG | mouth twice a day | | | 2/20 | | e | | tablet | | | | 19 | | | + + + +---------+------+------+-------+ | enoxaparin | | | 0 | 04/2 | | Activ | | (LOVENOX) 60 mg/0.6 | | | | 3/20 | | e | | mL injection | | | | 19 | | | + + + +---------+------+------+-------+ | FREESTYLE TEST | | | 0 | 03/1 | | Activ | | STRIPS strip | | | | 0/20 | | e | | | | | | 19 | | | + + + +---------+------+------+-------+ | ULTICARE MICRO PEN | | | 0 | 07/2 | | Activ | | NEEDLES 32G X 4 MM | | | | 3/20 | | e | | MISC | | | | 19 | | | + + + +---------+------+------+-------+ | FREESTYLE LANCETS | | | 0 | 03/1 | | Activ | | MISC | | | | 0/20 | | e | | | | | | 19 | | | + + + +---------+------+------+-------+ | levoFLOXacin | | | 0 | 05/1 | | Activ | | (LEVAQUIN) 750 MG | | | | 1/20 | | e | | tablet | | | | 19 | | | + + + +---------+------+------+-------+ | VICTOZA 18 MG/3ML | | | 0 | 06/1 | | Activ | | injection | | | | 2/20 | | e | | | | | | 19 | | | + + + +---------+------+------+-------+ | NARCAN 4 MG/0.1ML | | | 0 | 04/2 | | Activ | | | | | | 3/20 | | e | | | | | | 19 | | | + + + +---------+------+------+-------+ | nitrofurantoin | | | 0 | 04/2 | | Activ | | (MACROBID) 100 mg | | | | 3/20 | | e | | capsule | | | | 19 | | | + + + +---------+------+------+-------+ | ondansetron | | | 0 | 05/1 | | Activ | | (ZOFRAN) 4 mg tablet | | | | 8/20 | | e | | | | | | 19 | | | + + + +---------+------+------+-------+ | oxyCODONE | take 1 tablet by | | 0 | 06/2 | | Activ | | (ROXICODONE) 5 mg | mouth every 6 hours | | | 8/20 | | e | | tablet | if needed | | | 19 | | | + + + +---------+------+------+-------+ | warfarin | | | 0 | 05/1 | | Activ | | (COUMADIN) 10 mg | | | | 6/20 | | e | | tablet | | | | 19 | | | + + + +---------+------+------+-------+ Active Problems + + + | Problem | Noted Date | + + + | Fracture of distal end of right femur | 09/15/2018 | + + + | MRSA cellulitis | 09/15/2018 | + + + + + | Overview: Hx leg cellulitis | + + + + + | Obesity with alveolar hypoventilation | 09/15/2018 | + + + | Bilateral leg edema | 08/02/2018 | + + + | Nephrotic range proteinuria | 08/02/2018 | + + + | Gastroesophageal reflux disease without esophagitis | 01/08/2018 | + + + | Restrictive lung disease secondary to obesity | 06/23/2016 | + + + | Mild persistent asthma without complication | 10/11/2015 | + + + | Diabetes mellitus type 2, diet-controlled | 02/15/2015 | + + + | CPAP/BiPAP dependence | 02/07/2015 | + + + | Hypoxemia | 12/27/2013 | + + + | Hx of laparoscopic gastric banding | 09/22/2013 | + + + | Hypothyroidism | 04/19/2012 | + + + | Anemia | 12/23/2011 | + + + | Hyperparathyroidism | 11/05/2011 | + + + | Hypertensive disorder | 10/13/2011 | + + + | MORBID OBESITY | 10/02/2011 | + + + | Posttraumatic stress disorder | 10/02/2011 | + + + | Narcolepsy | 11/20/2010 | + + + | Panic disorder | 01/11/2009 | + + + | Recurrent major depressive episodes, moderate | 01/11/2009 | + + + | OBSTRUCTIVE SLEEP APNEA | | + + + | Obesity | | + + + | Central alveolar hypoventilation syndrome | | + + + | Periodic limb movement disorder (PLMD) | | + + + | Depression with anxiety | | + + + | Nephrotic syndrome | | + + + Resolved Problems + + + + | Problem | Noted | Resolved | | | Date | Date | + + + + | Atrial fibrillation with rapid ventricular response | 06/05/19 | | | | 18 | 8 | + + + + | Restrictive lung disease secondary to obesity | 01/27/20 | | | | 14 | 6 | + + + + | Dyspnea | 12/28/19 | | | | 14 | 8 | + + + + | COPD (chronic obstructive pulmonary disease) | 12/14/19 | | | | 14 | 6 | + + + + | ANNABEL (obstructive sleep apnea) | | | | | | 6 | + + + + Immunizations + + + + | Name | Administration Dates | Next Due | + + + + | INFLUENZA PF 18 Y OR | 03/01/2015, 02/21/2013 | | | >,TRIVALENT | | | | RECOMBINANT | | | + + + + | INFLUENZA PF | 03/16/2017, 02/19/2017, 02/28/2016 | | | QUAD(PED/ADOL/ADULT) | | | | ,PSKT or VIAL | | | + + + + | INFLUENZA PF | 02/16/2018, 03/10/2016 | | | TRIVALENT(PED/ADOL/A | | | | DULT), PSKT | | | + + + + | INFLUENZA QUADR | 02/28/2016 | | | W/PRES | | | | (PED/ADOL/ADULT) | | | | MULTIDOSE | | | + + + + | INFLUENZA TRIV | 03/06/2015, 03/16/2014, 02/21/2013, | | | W/PRES(PED/ADOL/ADUL | 02/20/2011, 02/19/2009, 03/20/2008 | | | T),MULTIDOSE | | | + + + + | INFLUENZA, | 03/06/2015, 03/16/2014, 02/21/2013, | | | UNSPECIFIED | 02/20/2011, 02/19/2009, 03/20/2008 | | | FORMULATION | | | + + + + | Influenza, Whole | 03/30/2002, 03/08/2001 | | + + + + | MMR, 2 DOSE | 11/25/1996 | | | (PED/ADULT) | | | + + + + | PNEUMOCOCCAL | 01/30/2013 | | | CONJUGATE 13-VALENT | | | | (PCV13) | | | + + + + | PNEUMOCOCCAL | 02/16/2018, 11/18/2013, 07/02/2013 | | | POLYSACCHARIDE | | | | 23-VALENT (PPSV23) | | | + + + + | TD PF (2 LF TETANUS) | 11/25/1996 | | | (ADOL/ADULT) | | | + + + + Family History + + +------+ + | Medical History | Relation | Name | Comments | + + +------+ + | Coronary artery | Father | | | | disease | | | | + + +------+ + | Diabetes | Father | | | + + +------+ + | Hypertension | Father | | | + + +------+ + | Kidney disease | Father | | | + + +------+ + | Diabetes | Father | | | + + +------+ + | Hypertension | Father | | | + + +------+ + | Kidney disease | Father | | | + + +------+ + | * | Mother | | "hernia rupture" | + + +------+ + | Hypertension | Mother | | | + + +------+ + | Hypertension | Mother | | | + + +------+ + | Malig hypertherm | Neg Hx | | | + + +------+ + + +------+ + + | Relation | Name | Status | Comments | + +------+ + + | Father | | | | + +------+ + + | Father | | Alive | | + +------+ + + | Father | | | | + +------+ + + | Mother | | | | + +------+ + + | Mother | | | | + +------+ + + | Mother | | | | + +------+ + + Social History + + + +--------+ + | Tobacco Use | Types | Packs/Day | Years | Date | | | | | Used | | + + + +--------+ + | Former Smoker | Cigarettes | 2016 | | 09/21/1984 - | | | | [...] recent travel history available. | + + Last Filed Vital Signs + + + + + | Vital Sign | Reading | Time Taken | Comments | + + + + + | Blood Pressure | 114/80 | 01/18/2019 10:49 AM | | | | | PDT | | + + + + + | Pulse | 82 | 01/18/2019 10:49 AM | | | | | PDT | | + + + + + | Temperature | 36.3 C (97.4 F) | 03/10/2018 6:58 PM | | | | | PDT | | + + + + + | Respiratory Rate | 16 | 01/18/2019 10:49 AM | | | | | PDT | | + + + + + | Oxygen Saturation | 93% | 01/18/2019 10:49 AM | | | | | PDT | | + + + + + | Inhaled Oxygen | - | - | | | Concentration | | | | + + + + + | Weight | 177.6 kg (391 lb 9.6 | 08/02/2018 11:52 AM | | | | oz) | PST | | + + + + + | Height | 160 cm (5' 3") | 08/02/2018 11:52 AM | | | | | PST | | + + + + + | Body Mass Index | 69.37 | 08/02/2018 11:52 AM | | | | | PST | | + + + + + Plan of Treatment +--------+---------+ + + + | Date | Type | Specialty | Care Team | Description | +--------+---------+ + + + | 06/14/ | Office | Pulmonology | Adolfo Zazueta, | | | 2019 | Visit | | MD Jac JOHNSON | | | | | | [place] | | | | | | [phone] | | | | | | | | +--------+---------+ + + + | 01/18/ | Office | Sleep Medicine | Jermaine Fairchild | | | 2019 | Visit | | MD Jac Sousa Crenshaw | | | | | | [place] | | | | | | [place] [address] | | | | | | [phone] | | | | | | | | +--------+---------+ + + + + + + + + | Health Maintenance | Due Date | Last Done | Comments | + + + + + | Vaccine: | | 11/25/1996 | | | Dtap/Tdap/Td (1 - | 0 | | | | Tdap) | | | | + + + + + | Diabetic Eye Exam | | | | | | 7 | | | + + + + + | Diabetic Foot Exam | | | | | | 7 | | | + + + + + | Breast Cancer | | | | | Screening | 4 | | | + + + + + | Colorectal Cancer | | | | | Screening | 9 | | | | (Colonoscopy) | | | | + + + + + | Vaccine: Zoster (1 | | | | | of 2) | 9 | | | + + + + + | Vaccine: Influenza | | 02/16/2018, 03/16/2017, | | | (#1) | 9 | 02/19/2017, Additional history | | | | | exists | | + + + + + | Hemoglobin A1c | | 02/04/2019, 10/01/2016, | | | Screening | 9 | 11/17/2013 | | + + + + + | Vaccine: | Completed | 02/16/2018, 11/18/2013, | | | Pneumococcal 19-64 | | 07/02/2013, Additional history | | | | | exists | | + + + + + Results Not on filefrom Last 3 Months Insurance + +--------+ +--------+ +---------+--------+ | Payer | Benefi | Subscriber | Effect | Phone | Address | Type | | | t Plan | ID | phuong | | | | | | / | | Dates | | | | | | Group | | | | | | + +--------+ +--------+ +---------+--------+ | [employer] | [employer] | [id number] | 11/30/19 | [phone] | | Medica | | MEDICAID HMO | HEALTH | | 14-Pre | 1 | | id | | | MDCD | | sent | | | | | | [place]MO [place] | | | | | | + +--------+ +--------+ +---------+--------+ + +--------+ +--------+ + + | Guarantor Name | Accoun | Relation to | Date | Phone | Billing Address | | | t Type | Patient | of | | | | | | | | | | + +--------+ +--------+ + + | Aspen José | Person | Self | [birth year] | [address] | | | al/Fam | | 1971 | [phone] | [place] | | | [place] | | | [address] ([place]) | [address] | + +--------+ +--------+ + + | ASPEN JOSÉ | Person | Self | | | | | | al/Fam | | | | | | | [place] | | | | | + +--------+ +--------+ + + Advance Directives + + + + + | Type | Date Recorded | Patient | Explanation | | | | Grab Jack Worker | | + + + + + | Power of | | | | | Carpet Journeyman | | | | + + + + + | Advance | 09/21/2015 12:08 | | | | Directive | PM | | | + + + + + | Advance | 01/15/2010 4:23 | | | | Directive | AM | | | + + + + +
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
--- OUTSIDE RECORDS SUMMARY | ~2019-06-14 | XMS | Encounter Summary ---
Demographics + + + | Address | [address] | | | [place] [address] | + + + | Home Phone | | + + + | Preferred Language | Unknown | + + + | Marital Status | Single | + + + | Hindu Affiliation | Unknown | + + + | Race | Unknown | + + + | Ethnic Group | Unknown | + + + Author + + + | Author | [facility] | | | and [place] | + + + | Organization | [facility] | | | and [...] Team Providers + +------+ + | Care Machine Leather Trimmer Name | Role | Phone | + +------+ + PCP | Unavailable | + +------+ + Encounter Details +--------+ + + + + | Date | Type | Department | Care Team | Description | +--------+ + + + + | 03/16/ | [facility] | [facility] | Jermaine Fairchild | | | 2002 | Encounter | MED CTR GENERIC OP | MD Lars [address] | | | | | CONV DEPT [address] [place] | | | | | [place], | [place] [address] | | | | | [place] [address] | [phone] | | | | | [phone] | | | +--------+ + + + [...] [place] | | | | | | [id number] | | | | | | | | +--------+---------+ + + + | 01/18/ | Office | Sleep Medicine | Jermaine Fairchild | | | 2019 | Visit | | MD Lars [address] | | | | | | [place] | | | | | | [place] [address] | | | | | | [phone] | | | | | | | | +--------+---------+ + + + documented as of this encounter Visit Diagnoses Not on filedocumented in this encounter"
--- OUTSIDE RECORDS SUMMARY | ~2019-06-14 | XMS | Encounter Summary ---
Demographics + + + | Address | [address] | | | [place] [address] | + + + | Home Phone | | + + + | Preferred Language | Unknown | + + + | Marital Status | Single | + + + | Nondenominational Affiliation | NRP | + + + | Race | White | + + + | Ethnic Group | Not or | + + + Author + + + | Author | [facility] | + + + | Organization | [facility] | + + + | Address [...] Team Providers + +------+ + | Care Corrective Therapist Name | Role | Phone | + +------+ + | Bassam Ross DO | PCP | | + +------+ + Reason for Visit + + + | Reason | Comments | + + + | Bariatric Nutrition | | + + + Consultation (Routine) [...] | | | | | | [facility] [address] | | | | | | | [address] | | | | | | | Mailcode: | | | | | | | [facility] | | | | | | | [facility] and | | | | | | | Healing, | | | | | | | [address] | | | | | | | [place], [place] | | | | | | | [address] | | | | | | | Phone: | | | | | | | [phone] | | | | | | | Fax: | | | | | | | [phone] | +--------+--------+ + + + + Encounter Details +--------+---------+ + + + | Date | Type | Department | Care Team | Description | +--------+---------+ + + + | 01/04/ | Office | Digestive Health | [address] | Morbid obesity with | | 2013 | Visit | Center at [facility] [address] | [address] | BMI of 70 and over, | | | | [address] | [place], | adult (HCC) (Primary | | | | Mailcode: [place] | [place] [address] | Dx) | | | | for Health and | | | | | | Healing, [address] | | | | | | [place], [place] | | | | | | [address] | | | | | | [phone] | | | +--------+---------+ + + + [...] + + + + | Weight | 197.9 kg (436 lb 3.2 | 01/04/2014 1:32 PM | | | | oz) | PDT | | + + + + + | Height | - | - | | + + + + + | Body Mass Index | 82.42 | 01/03/2014 2:22 PM | | | | | PDT | | + + + + + documented in this encounter Progress Notes Margot Contreras, JAYJAY - 01/04/2014 1:32 PM PDT Referring Provider: Bassam Ross DO [facility], Pre-Bariatric Surgery Visit Follow-up diet consult prior to having gastric sleeve (revision from lap-band - 05/13/2004; removed in 2011). Documented Time of Visit: 1:30 to 1:59 (29 minutes [id number] with patient) SUBJECTIVE: Concerned about recent weight gain. Her Dad has been in the hospital for the past month & she has not been following the diet. Food Allergies: No Current Physical Activity: Had started chair aerobics w/ bible study group - 3x/week - not participated in 1 month, planning to return to this. OBJECTIVE: Height: Ht Readings from Last 1 Encounters: 01/03/14 1.549 m (5' 1") Weight: Wt Readings from Last 2 Encounters: 01/04/14 197.859 kg (436 lb 3.2 oz) 01/03/14 198.675 kg (438 lb) 11/03/13 195.5 kg (431 lb) 09/21/13 203.257 kg (448 lb 1.6 oz) BMI: Body mass index is 82.46 kg/(m^2). Weight change since last nutrition appointment: Gained 5lbs Weight loss goal = 22lbs. Needs to lose 10lbs to reach this goal. Past Medical History: Past Medical History Diagnosis Date Essential [...] echo and chest xray findings. Followed by dining manager in [place]. Medications: See list in Epic snap shot Medications for Diabetes: n/a Dietary Supplements: Calcium plus Vitamin D (Citracal Petites), B-12, Flinstones. Labs: see Results Review for current labs (if available). Nutrition Diagnosis: Obesity as evidenced by BMI of 82.5. Pre-Surgery Diet: Diet Recall (01/03) Fuentes Sosa for breakfast (ham and egg SW) Had Kimberly Bates for dinner Plans to get back on track: Likes the [employer] frozen meals, yogurt, string cheese, cottage cheese Provided written diet suggestions to help patient lose weight before surgery. -Eat within one hour of waking, then every 3-4 waking hours -Include protein with all meals & snacks -Use healthy plate model or frozen entree (~300 calories, < 600 mg sodium) at lunch & dinn er -Begin keeping daily food logs -Choose foods & beverages with < 14 g sugar & < 5 g fat per serving -Eliminate liquid calories Discussed behavior changes to practice before surgery to prepare for surgery. -Begin fluids from meals by 30 minutes before and after -Sip fluids throughout the day, aim for 64 oz/day (non-caloric, non-caffeinated, non-carbo nated) -Begin practicing mindful eating -Also discussed it being ok to take care of herself (including eating healthy), even if sh e is having to care for other people. Wanted her to know that her health and well being is i mportant too. Written Education Provided/Reviewed: - Reviewed pre-surgery diet plan. No changes to diet needing to be made at this time. Pt aw are she veered off track & motivated to get back on track. Patient's Comprehension: The patient is: Receptive Stage of change: Action Barrier(s) to education: No Learning style: Patient is a Visual learner, Verbal learner Expected Outcome: I think the patient will do moderately if following all lifestyle and be havioral changes discussed today. GOAL: The patient's goal is to have weight loss surgery to maintain weight loss and improve other health conditions. 1. Continue to practice behavioral changes to prepare for surgery. 2. Increase physical activity. 3. Review all information provided for post-surgery diet progression. 4. Call dietitian with any questions. 5. Follow up with dietitian in 4 weeks - pt would like appt week of February 20 - hi l call once schedule opens. 6. Contact information was provided. Margot Contreras RD, [facility], [place] Pager# [phone] documented in this enco unter Plan of Treatment Not on filedocumented as of this encounter Procedures + +--------+ + + + | Procedure Name | Priori | Date/Time | Associated Diagnosis | Comments | | | ty | | | | + +--------+ + + + | [place] [facility] RE-ASSESSMNT | Routin | 01/04/2014 | Morbid obesity | | | X15MIN | e | 3:47 PM | with BMI of 70 and | | | | | PDT | over, adult (HCC) | | + +--------+ + + + documented in this encounter Visit Diagnoses + + | Diagnosis | + + | Morbid obesity with BMI of 70 and over, adult (HCC) - Primary | + + documented in this encounter
--- OUTSIDE RECORDS SUMMARY | ~2019-06-14 | XMS | Encounter Summary ---
Demographics + + + | Address | [address] | | | [place] [address] | + + + | Home Phone [...] + + + | Author | [facility] | + + + | Organization | [facility] | + + + | [...] Team Providers + +------+ + | Care Lining Presser Name | Role | Phone | + +------+ + | Bassam Ross DO | PCP | | + +------+ + Reason for Visit + + + | Reason | Comments | + + + | Return Patient | | + + + Benefits Check [...] | | | | | [facility] [address] | | | | | | | [address] | | | | | | | Mailcode: | | | | | | | [facility] | | | | | | | Health and | | | | | | | Healing, | | | | | | | [address] | | | | | | | [place], [place] | | | | | | | [address] | | | | | | | Phone: | | | | | | | [phone] | | | | | | | Fax: | | | | | | | [phone] | +--------+--------+ + + + + Encounter Details +--------+---------+ + + + | Date | Type | Department | Care Team | Description | +--------+---------+ + + + | 11/13/ | Office | Digestive Health | Traci Do, | B12 nutritional | | 2016 | Visit | Center at [facility] [address] | [employer] [address] | deficiency (Primary | | | | [address] | [address] | Dx); S/P | | | | Mailcode: Center | [place], [place] | laparoscopic sleeve | | | | for Health and | [address] | gastrectomy; | | | | Healing, [address] | [phone] | Abnormal intestinal | | | | [facility] [place] | | absorption; Vitamin | | | | [phone] | | D deficiency; | | | | [phone] | | Gastroesophageal | | | | | | reflux disease, | | | | | | esophagitis presence | | | | | | not specified | +--------+---------+ + + + Social History [...] + + + | Blood Pressure | 145/98 | 11/14/2015 1:24 PM | | | | | PDT | | + + + + + | Pulse | 98 | 11/14/2015 1:24 PM | | | | | PDT | | + + + + + | Temperature | 36.9 C (98.4 F) | 11/14/2015 1:24 PM | | | | | PDT | | + + + + + | Respiratory Rate | 20 | 11/14/2015 1:24 PM | | | | | PDT | | + + + + + | Oxygen Saturation | - | - | | + + + + + | Inhaled Oxygen | - | - | | | Concentration | | | | + + + + + | Weight | 166.3 kg (366 lb 9.6 | 11/14/2015 1:24 PM | | | | oz) | PDT | | + + + + + | Height | 160 cm (5' 3") | 11/14/2015 1:24 PM | | | | | PDT | | + + + + + | Body Mass Index | 64.94 | 11/14/2015 1:24 PM | | | | | PDT | | + + + + + documented in this encounter Patient Instructions Patient Instructions Traci Do NP - 11/14/2015 1:53 PM PDT Stay hydrated, stay active, get enough protein. Calcium citrate 1500 mg per day (take calcium 2 hours away from any iron containing supplem ents) Vitamin D 1000 IU per day, minimum (this will be in your calcium and multivitamins) b12 500 mcg SL (dissolves in your mouth) per day or 1000mcg once monthly as a shot chewable multivitamin with iron, take twice the adult dose (flintstones: two daily) Additional supplements may be recommended based on lab results Reminder: avoid NSAIDS (motrin, alleve, ibuprofen, advil, naproxen), nicotine and alcohol ( these can cause ulcers) If you must take an NSAID, please take a daily omeprazole or prilosec. Tylenol is safe. Exercise, walking, elliptical, swimming If you have vomiting or food sticking, please chew more, and eat slowly. Avoid drinking within 30 min of a meal. If you have vomiting more than 1-2 times per month, please make an appt with me Calories approx. 2879-8146 per day when 3 mos or more out from surgery to maintain weight l oss. Calories may need to be adjusted up for individual needs. I recommend eating 5-6 times per day. Lightbox.Garpun Protein 60-100+ gms per day Water: 64 oz per day, your urine should be light yellow. Please let up know if you would like a referral to see the Curriculum Designer. I would be happy to put in referrals to [facility], medical membership is $198 for 3 mos. If you are 12 mos or more out from surgery and would like referral for excess skin removal please let us know. Call us if you have any questions or concerns, or send [employer] message for non-urgent issue anthony Do RN, [facility]- Nurse Practitioner for Bariatric Surgery [facility] | [address] | [place], [place] | [address] | documented in this encounter Progress Notes Traci Do NP - 11/14/2015 1:37 PM PDTFormatting of this note might be different fr om the original. Display Progress Note in MyChart: Yes BARIATRIC FOLLOW-UP Aspen Darden is a 45 y.o. patient who underwent a sleeve gastrectomy in Jan 2015. Making good food choices, being more active. Pt has been taking all supps, 60 gms protein daily, 6 4 oz water daily. Happy with weight loss. Able to eat solid foods, denies vomiting other alberto n on rare occasion. States regular BM. Denies abd pain. Last office visit reviewed. Op-report reviewed. Labs reviewed. requesting written prescriptions for her vitamins and omeprazole Requesting PT referral to [facility]. Agreeable to getting labs done today. Would like letter clarifying diet requirements incase she needs to go to intermediate. Weight 414--> 366 (total 48 lb weight loss) BP 145/98 | Pulse 98 | Temp (Src) 36.9 C (98.4 F) (Oral) | RR 20 | Ht 1.6 m (5' 3") | W t 166.289 kg (366 lb 9.6 oz) | BMI 64.96 kg/(m^2) ALLERGIES: Allergies Allergen Reactions Advair Diskus [Fluticasone-Salmeterol] [...] four hours as neede d for severe pain., Disp: 50 tablet, Rfl: 0 HYDROmorphone 4 mg oral tablet, Take 0.5-1 tablets by mouth every four hours as needed for severe pain., Disp: 75 tablet, Rfl: 0 Pramipexole (MIRAPEX) 0.75 mg oral [...] echo and chest xray findings. 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 Poor intravenous access Liver enlargement 01/2015 intraop Past Surgical History Procedure Laterality Date C section 1998 Tonsillectomy 1996 Knee surgery 1996 Gastric banding 2004, 2007, 2011 Skin and subcutaneous tissue surgery 2006 Foot surgery 2009 - 2010 3x Hysterectomies, vaginal 2009 Appendectomy for ruptured appendix with abscess 2012 Gallbladder surgery 2008 Laparotomy 07/2014 Laparoscopic sleeve gastrectomy 02/07/2015 [facility] [place] History Social History Marital Status: Single Spouse [...] >85% MAPHR and no inducible ischemia [facility] 01/12/2012 - Normal sinus rhythm. Normal ECG Records reviewed from [facility] [employer] [facility] (see media tab): Echocardiogram 11/18/2013: 1. Sinus [...] There is no pericardial effusion.21. No mass . Po or visualization. Definity was used to opacify the left ventricular chamber and improve deli neation of the endocardial border. Family History Problem Relation Diabetes Father Hypertension Mother Obesity Mother Hypertension Father Heart Disease Father [place] 78 Bariatric Medications: MVI with iron twice daily: yes Calcium citrate 1500mg daily: yes B12 500mcg SL daily or monthly shot: yes H2RB/PPI daily: yes Actigall 300 BID: no Narcotics: no Symptoms: Nausea: None Dysphagia: None Vomiting: None Heartburn: 2-5 times per week Abd Pain: None Constipation: None Diarrhea: None Exam General- Alert and oriented x4, WD, WN, NAD, Obese, well appearing Well hydrated: moist mucous membranes Lungs: regular and even excursion, no audible wheezes Card/Circ: no LE edema Abd - Soft, NT, NR, NG Wounds - well healed Assessment/Plan: 1. S/P sleeve gastrectomy, Doing well at 9 months CBC, CMP, B12, B1, PTH, vit D, TIBC, ferritin will notify of results Ok to continue on PPI if still having symptoms. Wrote out and printed all vitamins and PPI. Sent message to Radha to see if she has any ideas on how to place referral to PT in [facility]. I am happy to sign letter for pt to take vitamins and have high protein, low sugar diet whi le she is intermediate, Margot is witting. Other med prescriptions need to come from PCP. Continue with supps as directed, watch protein levels, be sure to get 60 gms daily, be sure to take in 64 oz of water daily. Discussed specific supplements and gave list on AVS. Discussed calorie counting and protein counting. Discussed diet choices, healthy foods, ways to increase protein and iron, offered RD visit. Discussed exercise, types of exercise, offered referral to [facility]. 2. Altered Intestinal absorption, s/p gastric surgery, potential for B12 deficiency, Calciu m malabsorption, protein malabsorption and iron deficiencies. Offered lab at 3 mos, 6 mos an d yearly visits. 3. B12 nutritional deficiency- pt has limited portion sizes, area of stomach where b12 abso rbed is now partially removed or bypassed. Offered lab at 3 mos, 6 mos and yearly visits. 4. Vitamin D deficiency, pt has history of deficiency, taking supplements, will need to be monitored regularly. Potential for elevated PTH if Vit D and calcium absorption are not opti mized. Offered lab at 3 mos, 6 mos and yearly visits. See PCM for adjusting any other medications. Call if any abd pain, n/v/d or other issues. ER for severe pain. Encouraged pt to F/u at 12 months post op. Pt agrees to POC and will call or send [employer] message if any issues. Start time 1330, end time 1400. I spent a total of 30 minutes face to face with this patie nt. Over 50% of visit was in counseling. ~ 10 Minutes of additional time spent reviewing chart prior to visit and documenting after this visit. Traci Do RN, [facility]- Nurse Practitioner for Bariatric Surgery [facility] | [address] | [place] | [address] | documented in this e ncounter Plan of Treatment Not on filedocumented as of this encounter Results VITAMIN B1, WHOLE BLOOD (11/14/2015 2:45 PM [...] | | | | | determined by [facility] | | | | | | Laboratories. See | | | | | | Compliance Statement B: | | | | | | iRx Reminder.Garpun/CSPerformed | | | | | | by [facility] [employer],[address] | | | | | | [facility] | | | | | | [address] | | | | | | [phone].iRx Reminder. | | | | | | com, Tirso Montelongo, | | | | | [...] [facility] | [address] | [place], [place] | | | [facility] | | [address] | | + + + + + [...] | + + + + + | [facility] | [address] | [place] [address] | | | SERVICES, CORE | PARK [...] LABORATORY | [address] | [place] [address] | | | SERVICES, CORE | PARK [...] + + | [facility] | [address] | [place] [address] | | | SERVICES, CORE | PARK [...] LABORATORY | [address] | [place] [address] | | | MIR CHAPIN | NANCY [...] LABORATORY | | >18years: Deficiency: <20 | TAVARES, CORE | | ng/mL Insufficiency: 20-29 ng/mL | | | Optimum Level: 30-80 ng/mL High: | | | 81-150 ng/ml Toxic: >150 ng/mL | | + + + + + + + + | Performing | Address | City/State/Zipcode | Phone Number | | Organization | | | | + + + + + | [facility] | [address] | [place] [address] | | | SERVICES, CORE | NANCY [...] | | | LABORATORY | | | NEPALESE | | | SERVICES, | | | [...] the MDRD equation recommended by the | INSU | | National Kidney Disease Education Program. Estimated GFR | LABORATORY | | Interpretive Information: <60 mL/min/1.73 sq m | TAVARES, MIR | | Chronic Kidney Disease <15 mL/min/1.73 [...] | + + + + + | [facility] | [address] | [place] [address] | | | MIR CHAPIN | [address] | | | + + + + + documented in this encounter Visit Diagnoses + + | Diagnosis | + + | B12 nutritional deficiency - Primary Other B-complex deficiencies | + + | S/P laparoscopic sleeve gastrectomy | + + | Abnormal intestinal absorption Unspecified intestinal malabsorption | + + | Vitamin D deficiency | + + | Gastroesophageal reflux disease, esophagitis presence not specified | + + documented in this encounter
--- OUTSIDE RECORDS SUMMARY | ~2019-06-14 | XMS | Encounter Summary ---
Demographics + + + | Address | [address] | | | [place] [address] | + + + | Home Phone | | + + + | Preferred Language | Unknown | + + + | Marital Status | Single | + + + | Confucianist Affiliation | NRP | + + + [...] | + + +---------+ + | [place] | ECON | Unknown | | + + +---------+ + Care Team Providers + +------+ + | Care Manager Dairy Name | Role | Phone | + +------+ + | Bassam Ross DO | PCP | | + +------+ + Encounter Details +--------+ + + + + | Date | Type | Department | Care Team | Description | +--------+ + + + + | 03/06/ | MyChart | [facility] Comprehensive | Gera Bowers, | apptment | | 2013 | Encounter | Pain Center at | PhD [address] | | | | | [facility] | [facility] [place] | | | | | [address] | [address] | | | | | Mailcode: [facility]15[facility] | [phone] | | | | | [facility] | | | | | | and Healing, | | | | | | Building | | | | | | Floor [place], [place] | | | | | | [address] | | | | | | [phone] | | | +--------+ + + + [...]
--- OUTSIDE RECORDS SUMMARY | ~2019-06-14 | XMS | Encounter Summary ---
Demographics + + + | Address | [address] | | | [place] [address] | + + + | Home Phone | | + + + | Preferred Language | Unknown | + + + | Marital Status | Single | + + + | Restorationism Affiliation | NRP | + + + [...] Team Providers + +------+ + | Care Polysomnographic Technician Name | Role | Phone | [...] Follow-up encounter | | 2019 | | [facility] | JULIETA Jiménez [address] | | | | | [place] at | [address] [place], | | | | | [place] [address] [address] | [place] [address] | | | | | [address] | [phone] | | | | | [place], [place] | | | | | | [address] | | | | | | [phone] | | | +--------+ + + + [...]
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
--- OUTSIDE RECORDS SUMMARY | ~2019-06-14 | XMS | Encounter Summary ---
Demographics + + + | Address | [address] | | | [place] [address] | + + + | Home Phone | | + + + | Preferred Language | Unknown | + + + | Marital Status | Single | + + + | Bahai Affiliation | NRP | + + + | Race | White | + + + | Ethnic Group | Not or | + + + Author + + + | Author | [facility] | + + + | Organization | [facility] | + + + | [...] Providers + +------+ + | Care Senior Data Modeler Name | Role | Phone | + [...] | | | | | | | [facility] | | | | | | | Health and | | | | | | | Healing, | | | | | | | Building [address] | | | | | | | [place], [place] | | | | | | | [address] | | | | | | | Phone: | | | | | | | [phone] | | | | | | | Fax: | | | | | | | [phone] | +--------+--------+ + + + + Encounter Details +--------+---------+ + + + | Date | Type | Department | Care Team | Description | +--------+---------+ + + + | 12/04/ | Office | Digestive Health | Margot Contreras RD | Morbid obesity with | | 2014 | Visit | Center at [facility] [address] | [address] | BMI of 70 and over, | | | | [address] | Jana Winston [place], | adult (HCC) (Primary | | | | Mailcode: [place] | [place] [address] | Dx) | | | | for Health and | | | | | | Healing, Building [address] | | | | | | [place], [place] | | | | | | [address] | | | | | | [phone] | | | +--------+---------+ + + + [...] documented as of this encounter Progress Notes Margot Contreras, RD - 12/04/2014 3:54 PM PDT Referring Provider: Bassam Ross DO [facility], Pre-Bariatric Surgery Visit Follow-up diet consult prior to havinggastric sleeve (revision from lap-band - 05/13/2004; removed in 2011). Documented Time of Visit: 3:48 to 4:04 (16 minutes [id number] with patient) - reschedule d appointment to be seen today per pt request SUBJECTIVE: Tearful, wondering if she will ever be able to have another chance at surgery. Food Allergies: No Current Physical Activity: Reports 30 minutes of exercise per day (walking, seated exercis es) OBJECTIVE: Height: Ht Readings from Last 1 Encounters: 12/04/14 1.626 m (5' 4") Weight: Wt Readings from Last 2 Encounters: 12/04/14 190.738 kg (420 lb 8 oz) 11/10/14 190.511 kg (420 lb) 09/04/14 192.37 kg (424 lb 1.6 oz) 08/23/14 194 kg (427 lb 11.1 oz) BMI: 72.14 Weight change since last nutrition appointment: lost 4lbs Past Medical History: Past Medical History Diagnosis [...] echo and chest xray findings. Followed by education finance processor in [place]. Poor intravenous access Medications: See list in Epic snap shot Medications for Diabetes: none Dietary Supplements: Multivitamin Labs: see Results Review for current labs (if available). Nutrition Diagnosis: Morbid Obesity as evidenced by BMI of 72.14. Pre-Surgery Diet: - Very Low Calorie Diet (800 kcal/day maximum) 2 shakes (Pure Protein per pt preference) + 1 meal from Liver Reduction Diet list. - Follow up with PCP in the next 2 weeks for a weight check. Patient's Comprehension: The patient is: Receptive Stage of change: Action Barrier(s) to education: No Learning style: Patient is a Visual learner, Verbal learner Expected Outcome: I think the patient will do moderately if following all lifestyle and be havioral changes discussed today. Struggling with losing weight recommended before another a ttempt at [facility]. Per diet recall she is following LRD guidelines. GOAL: The patient's goal is to have weight loss surgery to maintain weight loss and improve other health conditions. PLAN: Follow up with dietitian in 2 weeks via PC to report progress. Contact me with any questions or concerns Margot Contreras RD, CNSC, LD Pager# [phone] documented in this enco unter Plan of Treatment Not on filedocumented as of this encounter Procedures + +--------+ + + + | Procedure Name | Priori | Date/Time | Associated Diagnosis | Comments | | | ty | | | | + +--------+ + + + | IN MNT RE-ASSESSMNT | Routin | 12/05/2014 | Morbid obesity | | | X15MIN | e | 12:46 PM | with BMI of 70 and [...]
--- OUTSIDE RECORDS SUMMARY | ~2019-06-14 | XMS | Encounter Summary ---
Demographics + + + | Address | [address] | | | [place] [address] | + + + | Home Phone [...] Author + + + | Author | [facility] | + + + | Organization | [facility] | + + + | [...] | + + +---------+ + | Lana [place] | ECON | Unknown | | + + +---------+ + Care Team Providers + +------+ + | Care Finished Goods Stock Clerk Name | Role | Phone | [...] + + + | Closed | | Non [facility] | Diagnoses | [place], | Non-[facility] | | | | Department | S/P | Hansa Hawkins, | Epic Dept | | | | | laparoscopic | AGACNP [address] | | | | | | sleeve | [address] | | | | | | gastrectomy | [place], | | | | | | [place] | [place] | | | | | | deficiency | [address] | | | | | | Procedures | Phone: | | | | | | CONSULT TO | [phone] | | | | | | NON - [facility] | Fax: | | | | | | PROVIDER | [phone] | | +--------+--------+ + + + + Encounter Details +--------+ + + + + | Date | Type | Department | Care Team | Description | +--------+ + + + + | 06/25/ | MyChart | Digestive Health | Hansa Hawkins, | RE:Follow-up | | 2018 | Encounter | Center at [facility] [address] | AGACNP [address] | | | | | [address] | Ave [place], [place] | | | | | Mailcode: Center | [address] | | | | | for Health and | | | | | | [facility] 2 | | | | | | [place], [place] | | | | | | [address] | | | | | | | [...] Primary | + + | Iron deficiency Other disorders of iron metabolism | + + documented in this encounter"
--- OUTSIDE RECORDS SUMMARY | ~2019-06-14 | XMS | Encounter Summary ---
Demographics + + + | Address | [address] | | | [place] [address] | + + + | Home Phone [...] Author + + + | Author | [facility] | + + + | Organization | [facility] | + + + | [...] | + + +---------+ + | Lana [place] | ECON | Unknown | | + + +---------+ + Care Team Providers + +------+ + | Care Fitting Supervisor Name | Role | Phone | [...] + + + | Closed | | Cardiology | Diagnoses | Rubi, | Bischof, | | | | | Morbid | Yaritza Soria MD | Kath Jiménez, | | | | | obesity | [address] | PA-C [address] | | | | | (HCC) | [address] | [address] | | | | | Atrial | [place], [place] | [place] | | | | | fibrillation | [address] | [address] | | | | | , | Phone: | Phone: | | | | | unspecified | [phone] | [phone] | | | | | type (HCC) | Fax: | Fax: | | | | | Abnormal ECG | [phone] | [phone] | | | | | | | [...] | | | CARDIOLOGY | | | +--------+--------+ + + + + Physical Therapy (Routine) +--------+--------+ + + + + | Status | Reason | Specialty | Diagnoses / | Referred By | Referred To | | | | | Procedures | Contact | Contact | +--------+--------+ + + + + | Closed | | Physical | Diagnoses | Rubi, | Walter Pt Chh1 | | | | Therapy | Morbid | Yaritza Soria MD | [address] | | | | | obesity | [address] | | | | | (HCC) | [address] | Mailcode: | | | | | Procedures | [place], [place] | [address] | | | | | PHYSICAL | [address] | for Health | | | | | THERAPY | Phone: | and Healing, | | | | | REFERRAL | | Building [address], | | | | | | Fax: | [address] | | | | | | [phone] | [place], [place] | | | | | | | [address] | | | | | | | Phone: | | | | | | | [phone] | | | | | | | Fax: | | | | | | | [phone] | +--------+--------+ + + + + Consultation (Routine) +--------+---------+ + + + + | Status | Reason | Specialty | Diagnoses / | Referred By | Referred To | | | | | Procedures | Contact | Contact | +--------+---------+ + + + + | Closed | Other | Pain | Diagnoses | Rubi, | Mily | | | | Management | Morbid | Yaritza Soria MD | Kate, | | | | | obesity | [address] | Kofi Moya, PhD | | | | | ([facility]) | [address] | [address] | | | | | Procedures | [place], [place] | [address] | | | | | CONSULT TO | [address] | [place], [place] | | | | | PAIN | Phone: | [phone] | | | | | MANAGEMENT | [phone] | Phone: | | | | | | Fax: | [phone] | | | | | | [phone] | Fax: | | | | | | | [phone] | +--------+---------+ + + + + Encounter Details +--------+ + + + + | Date | Type | Department | Care Team | Description | +--------+ + + + + | 04/13/ | Telephone | Digestive Health | Yaritza Venegas, | | | 2018 | | Center at [facility] [address] | MD [address] | | | | | [address] | [place], [place] | | | | | Mailcode: [place] | [address] | | | | | for Health and | | | | | | [facility] 2 | | | | | | [place], [place] | | | | | | [address] | | | | | | | [...] Diagnosis | + + | Morbid obesity (HCC) - Primary Morbid obesity | + + | Atrial fibrillation, unspecified type (HCC) | + + | Abnormal ECG Nonspecific abnormal electrocardiogram (ECG) (EKG) | + + | Hypertension, unspecified type | + + | Type 2 diabetes mellitus with complication, unspecified whether termite treater helper insulin use | + + documented in this encounter"
--- OUTSIDE RECORDS SUMMARY | ~2019-06-14 | XMS | Encounter Summary ---
Demographics + + + | Address | [address] | | | [place] [address] | + + + | Home Phone | | + + + | Preferred Language | Unknown | + + + | Marital Status | Single | + + + | Jehovah'S Witness Affiliation | NRP | + + + | Race | White | + + + | Ethnic Group | Not or | + + + Author + + + | Author | [facility] | + + + | Organization | [facility] | + + + | [...] | + + +---------+ + | Lana [place] | ECON | Unknown | | + + +---------+ + Care Team Providers + +------+ + | Care Petroleum Engineering Teacher Name | Role | Phone | + +------+ + | Bassam Ross DO | PCP | | + +------+ + Encounter Details +--------+ + + + + | Date | Type | Department | Care Team | Description | +--------+ + + + + | 05/16/ | Documentati | Digestive Health | Thania Cardenas, | | | 2013 | on | Center at [facility] [address] | ACN [address] | | | | | [address] | Arleen [place], [place] | | | | | Mailcode: [place] | [address] | | | | | for Health and | | | | | | [facility] 2 | | | | | | [place], [place] | | | | | | [address] | | | | | | | [...]
--- OUTSIDE RECORDS SUMMARY | ~2019-06-14 | XMS | Encounter Summary ---
Demographics + + + | Address | [address] | | | [place] [address] | + + + | Home Phone [...] | + + +---------+ + | Lana [place] | ECON | Unknown | | + + +---------+ + Care Team Providers + +------+ + | Care Core Cutter Name | Role | Phone | + +------+ + | Bassam Ross DO | PCP | | + +------+ + Reason for Visit +--------+ + | Reason | Comments | +--------+ + | Other | | +--------+ + Encounter Details +--------+ + + + + | Date | Type | Department | Care Team | Description | +--------+ + + + + | 01/11/ | Telephone | Cardiology in | Juan Antonio Mclaughlin, | Other | | 2018 | | Digestive Health | [address] | | | | | Center at [facility] [address] | Ave [place], [place] | | | | | [facility] | [address] | | | | | Mailcode: Center | [phone] | | | | | for Health and | | | | | | [facility] [address] [address] | | | | | | [place], [place] | | | | | | [address] | | | | | | [phone] | | | +--------+ + + + [...] | + + | Essential hypertension, benign - Primary | + + | Diabetes mellitus type 2, diet-controlled (HCC) Type II or unspecified type diabetes | | mellitus without mention of complication, not stated as uncontrolled | + + | Morbid obesity with BMI of 60.0-69.9, adult (HCC) | + + | Nephrotic syndrome | + + documented in this encounter"
--- OUTSIDE RECORDS SUMMARY | ~2019-06-14 | XMS | Encounter Summary ---
Demographics + + + | Address | [address] | | | [place] [address] | + + + | Home Phone [...] Team Providers + +------+ + | Care Investments Manager Name | Role | Phone | + +------+ + | Bassam Ross DO | PCP | | + +------+ + Encounter Details +--------+ + + + + | Date | Type | Department | Care Team | Description | +--------+ + + + + | 09/20/ | Orders Only | [facility] [place] | Adolfo Zazueta, | Restrictive lung | | 2016 | | PULMONARY [address] | MD [address] | disease secondary to | | | | [place], | [place], [place] | obesity; Hypoxemia | | | | [place] [address] | [address] | | | | | [phone] | | | +--------+ + + + [...] [place] | | | | | | [address] | | | | | | | | +--------+---------+ + + + | 01/18/ | Office | Sleep Medicine | Jermaine Fairchild | | | 2019 | Visit | | MD Lars [address] | | | | | | [place] [facility] | | | | | | [place] [address] | | | | | | [phone] | | | | | | | | +--------+---------+ + + + documented as of this encounter Visit Diagnoses + + | Diagnosis | + + | Restrictive lung disease secondary to obesity Other diseases of lung, not elsewhere | | classified | + + | Hypoxemia | + + documented in this encounter"
--- OUTSIDE RECORDS SUMMARY | ~2019-06-14 | XMS | Encounter Summary ---
Demographics + + + | Address | [address] | | | [place] [address] | + + + | Home Phone | | + + + | Preferred Language | Unknown | + + + | Marital Status | Single | + + + | Spiritism Affiliation | NRP | + + + [...] | + + +---------+ + | Lana [place] | ECON | Unknown | | + + +---------+ + Care Team Providers + +------+ + | Care Fire Technology Instructor Name | Role | Phone | + +------+ + | Bassam Ross DO | PCP | | + +------+ + Reason for Visit Consultation (Routine) +--------+--------+ + + + + [...] | | | | | | | Center for | | | | | | | Health and | | | | | | | Healing, | | | | | | | Building 2 | | | | | | | [place], [place] | | | | | | | [address] | | | | | | | Phone: | | | | | | | [phone] | | | | | | | Fax: | | | | | | | [phone] | +--------+--------+ + + + + Encounter Details +--------+---------+ + + + | Date | Type | Department | Care Team | Description | +--------+---------+ + + + | 12/04/ | Office | Digestive Health | Dori Fajardo, | Morbid obesity with | | 2014 | Visit | Center at [facility] [address] | MD | BMI of 70 and over, | | | | [address] | | adult (HCC) (Primary | | | | Mailcode: [place] | | Dx) | | | | for Health and | | | | | | [facility] 2 | | | | | | [place], [place] | | | | | | [address] | | | | | | [phone] | | | +--------+---------+ + + + [...] + + + | Blood Pressure | 151/90 | 12/04/2014 3:04 PM | | | | | PDT | | + + + + + | Pulse | 109 | 12/04/2014 3:04 PM | | | | | PDT | | + + + + + | Temperature | 37.1 C (98.8 F) | 12/04/2014 3:04 PM | | | | | PDT | | + + + + + | Respiratory Rate | 20 | 12/04/2014 3:04 PM | | | | | PDT | | + + + + + | Oxygen Saturation | 95% | 12/04/2014 3:04 PM | | | | | PDT | | + + + + + | Inhaled Oxygen | - | - | | | Concentration | | | | + + + + + | Weight | 190.7 kg (420 lb 8 | 12/04/2014 3:04 PM | | | | oz) | PDT | | + + + + + | Height | 162.6 cm (5' 4") | 12/04/2014 3:04 PM | | | | | PDT | | + + + + + | Body Mass Index | 72.18 | 12/04/2014 3:04 PM | | | | | PDT | | + + + + + documented in this encounter Progress Notes Dori Fajardo MD - 12/04/2014 4:08 PM PDTI saw and evaluated the patient and agree with the findings and plan as documented in the resident s note. I spent 15 minutes with the patient of which >50% of this time was in counseling and coordination of care. We discusse d her very modest weight loss on the LRD. I have spoken with Ben Flower, our dietitian, who has agreed to start the patient on a VLCD for 2 weeks. DORI FAJARDO MD CHIEF, BARIATRIC SERVICES DIGESTIVE [facility] CENTER AT [facility] 6TH FLOOR [address] Mailcode: [place] [address] Gabe Walls MD - 12/04/2014 3:30 PM PDT BARIATRIC SURGERY OFFICE VISIT DATE OF VISIT: 12/04/2014 REASON FOR VISIT: Obesity w/ fatty liver ID: Aspen Darden is a 43 y.o. female with morbid obesity, HTN, and ANNABEL who underwent abo rted laparoscopic sleeve gastrectomy on 08/24/14. She has undergone two prior gastric bands r esulting in significant omental scarring to the stomach. Additionally she was noted to have fatty liver disease obscuring safe dissection planes. It was determined that she needs to lo ose 25lbs to shrink her liver small enough to operate safely. Subjective: - Seeing bung remover and following the liver reduction diet since july 2014. - 7lb weight loss since that time despite her attempts and compliance. - States she is retaining fluid despite 80mg of lasix daily - Upset that she has been working hard and following diet but has not lost the weight. Feel ing discouraged. Past Medical History Diagnosis Date Essential hypertension, [...] echo and chest xray findings. Followed by doctor of chiropractic in [place]. Poor intravenous access Past Surgical History Procedure Laterality Date C section 1998 Tonsillectomy 1996 Knee surgery 1996 Gastric banding 2004, 2007, 2011 Skin and subcutaneous tissue surgery 2006 Foot surgery 2009 - 2011 3x Hysterectomies, vaginal 2009 Appendectomy for ruptured appendix with abscess 2012 Gallbladder surgery 2007 PHYSICAL EXAMINATION: BP 151/90 | Pulse 109 | Temp (Src) 37.1 C (98.8 F) (Oral) | RR 20 | Ht 1.626 m (5' 4") | Wt 190.738 kg (420 lb 8 oz) | SpO2 95% | BMI 72.14 kg/(m^2) GENERAL: Upset, In no apparent distress, alert. HEENT: Grossly within normal limits. NECK: Supple, full range of motion. SKIN: No visible rashes. CHEST: Respirations even and unlabored. CARDIOVASCULAR: Extremities warm and well perfused. ABDOMEN: Obese, soft, non tender, well healed. GROINS/: Deferred. EXTREMITIES: No edema, normal range of motion. NEUROLOGIC: Moves all extremities spontaneously. No apparent neurologic deficits. Cranial nerves 2-12 grossly intact. Gait symmetric and age appropriate. IMPRESSION: Aspen Darden is a 43 yo woman with MO, ANNABEL, and HTN s/p aborted laparoscopic sleeve gastrectomy on 08/24/14. She is felt to be a good candidate for this surgery however should lose approximately 30 pounds before surgery, which should acutely reduce her hepatome adela and allow surgery to proceed safely. PLAN: Fu 1 month Seeing bung remover tomorrow: VLCD lq diet for 2 weeks documented in this en counter Plan of Treatment Not on filedocumented as of this encounter Visit Diagnoses + + | Diagnosis | + + | Morbid obesity with BMI of 70 and over, adult (HCC) - Primary | + + documented in this encounter
--- OUTSIDE RECORDS SUMMARY | ~2019-06-14 | XMS | Encounter Summary ---
Demographics + + + | Address | [address] | | | [place] [address] | + + + | Home Phone | | + + + | Preferred Language | Unknown | + + + | Marital Status | Single | + + + | Spiritism Affiliation | Unknown | + + + | Race | Unknown | + + + | Ethnic Group | Unknown | + + + Author + + + | Author | [facility] | | | and [place] | + + + | Organization | [facility] | | | [...] Team Providers + +------+ + | Care Marketing Programs Manager Name | Role | Phone | + +------+ + | Bassam Ross DO | PCP | | + +------+ + Encounter Details +--------+ + + + + | Date | Type | Department | Care Team | Description | +--------+ + + + + | 11/17/ | Hospital | [facility] | Moisés Ballard, | Acute asthma | | 2013 - | Encounter | [facility] | MD [address] | exacerbation; [place]BEL on | | | | CARE [address]LO[phone] | [place] [address] | CPAP; Hypoxia; BMI | | 11/20/ | | [address] | [phone] | greater than 40; | | 2013 | | [place], [place] | | Atypical pneumonia; | | | | [address] | | Acute exacerbation | | | | [phone] | | of COPD with asthma | | | | | | ([facility]); Bacterial | | | | | | pneumonia; CO2 | | | | | | retention; Essential | | | | | | hypertension, | | | | | | benign; Morbid | | | | | | obesity ([facility]) | +--------+ + + + + Social [...] documented as of this encounter Discharge Summaries Az Stuart DO - 11/20/2013 9:57 AM PDT Discharge Summaries by Az Stuart DO at 11/20/13 0957 Author: Az Stuart DO Service: (none) Author Type: Physician Filed: 11/25/13 1537 Date of Service: 11/20/13 0957 Status: Signed Strategic Development Manager: Az Stuart DO (Physician) [facility] Service: Hospitalist Discharge Summary Date of Admission: 11/17/2013 Date of Discharge: 11/20/2013 Discharge Provider: Az Stuart DO Treatment Team: Admitting Provider: Moisés Ballard MD Discharge Diagnoses: Principal Problem (Resolved): *Acute exacerbation of COPD with asthma Active Problems: CO2 retention Essential hypertension, benign Morbid obesity Resolved Problems: Bacterial pneumonia Hypoxia Leukocytosis, unspecified Presented with difficulty breathing, admitted to hospitalists with dx COPD exacerbation. Sh mil was treated with steroid burst/taper (Solumedrol, now changed to prednisone, taper rx'd as below) and bronchodilators. She improved with this regimen. Procalcitonin level was negativ e, no concern for bacterial pneumonia. She was rx'd Duonebs for home nebulizer use - she has nebulizer but hasn't been utilizing it at home, had no medicine. She had COPD retention - m ild, and she takes benzodiazepines which likely contribute to that problem. She is recommend ed to follow up closely with her outpatent providers and probably cut back on her benzodiaze pine use, as well as intensify her COPD maintenance regimen by utilizing her nebulizer. DISCHARGE EXAM Vital Signs: BP 142/70 | Pulse 68 | Temp 97.3 F (36.3 C) (Oral) | Resp 20 | Ht 1.6 m (5' 2.99") | Wt 197 kg (434 lb 4.9 oz) | BMI 76.95 kg/m2 | SpO2 95% | ? No Physical Exam NAD AOx3 Morbidly obese HENT - MMM, conjunctivae normal Heart - RRR no murmur, normal radial / DP pulses B/L Lungs - Increased amplitude of breathing, decreased breath sounds globally with few quiet e nd-expiratory wheezes, no rales Abd - SNTND +BSx4 Ext - Good ROM no tenderness or edema Skin - normal no lesion Disposition: Home Condition: Stable Code Status: Full Code Follow up: Bassam Ross DO Medication List As of 11/20/2013 9:57 AM START taking these medications ipratropium-albuterol 0.5-2.5 mg/3mL QTY: 360 mL Refills: 0 Commonly known as: DUO-NEB Take 3 mLs by nebulization every 6 (six) hours as needed. predniSONE 10 MG tablet QTY: 12 tablet Refills: 0 Commonly known as: DELTASONE Take 3 tablets per day for 2 days, then 2 tablets per day for 2 days, then 1 tablet per da y for 2 days, then stop. CONTINUE taking these medications ALPRAZolam 0.5 MG tablet Refills: 0 Commonly known as: XANAX carvedilol 25 MG tablet Refills: 0 Commonly known as: COREG clonazePAM 2 MG tablet Refills: 0 Commonly known as: KlonoPIN cloNIDine 0.1 MG tablet Refills: 0 Commonly known as: CATAPRES estradiol 2 MG tablet Refills: 0 Commonly known as: ESTRACE fluticasone 220 MCG/ACT inhaler Refills: 0 Commonly known as: FLOVENT HFA furosemide 80 MG tablet Refills: 0 Commonly known as: LASIX HYDROcodone-acetaminophen 5-325 MG per tablet Refills: 0 Commonly known as: NORCO [id number] 6-1-50-5 MG Tabs Refills: 0 Commonly known as: CEREFOLIN lamotrigine 200 MG tablet Refills: 0 Commonly known as: LAMICTAL MIRAPEX ER 0.375 MG Tb24 Refills: 0 Generic drug: Pramipexole Dihydrochloride thyroid 60 MG tablet Refills: 0 Commonly known as: ARMOUR VIIBRYD 40 MG tablet Refills: 0 Generic drug: vilazodone VITAMIN D2 PO Refills: 0 STOP taking these medications ALBUTEROL IN Where to get your medications These are the prescriptions that you need to group product manager. You may get these medications from any pharmacy. ipratropium-albuterol 0.5-2.5 mg/3mL predniSONE 10 MG tablet Discharge took ~35 minutes, to include final examination, discussion of admission, and prep aration of prescriptions, instructions for on-going care, follow-up and documentation of dis charge summary. Az Stuart DO 11/20/2013 9:59 AM documented in this enc ounter Medications at Time of Discharge + + [...] +---------+ + + | albuterol | Inhale 1 puff into | | 0 | 02/12/20 | | | (VENTOLIN HFA) 90 | the lungs every 4 | | | 12 | 4 | | mcg/puff inhaler | hours as needed. | | | | | + + + +---------+ + + | albuterol | inhale two puffs by | | 0 | 02/12/20 | | | (VENTOLIN HFA) 90 | mouth four times a | | | 12 | 4 | | mcg/puff inhaler | day | | | | | + [...] + + + +---------+ + + | fluticasone | Inhale 1 puff into | | 0 | | | | (FLOVENT HFA) 110 | the lungs 2 times | | | | 4 | | mcg/puff inhaler | daily. | | | | | [...] + + + +---------+ + + | lisdexamfetamine | Take 60 mg by mouth | | 0 | | | | (VYVANSE) 60 MG | every morning. | | | | 4 | | capsule | | | | | | + + + +---------+ + + | lorazepam (ATIVAN) | Take 2 mg by mouth | | 0 | 02/12/20 | | | 2 MG tablet | Daily. | | | 12 | 4 | + + + +---------+ + + | pramipexole | Take 75 mg by mouth | | 0 | 02/12/20 | | | (MIRAPEX) 1.5 MG | 2 times daily. | | | 12 | 8 | | tablet | | | | | | + + + +---------+ + + | thyroid (ARMOUR) | Take 60 mg by mouth | | 0 | | | | 60 MG tablet | Daily. | | | | 4 | + + + +---------+ + + | vilazodone | Take 40 mg by mouth | | 0 | | | | (VIIBRYD) 40 mg | daily (with | | | | 6 | | tablet | breakfast). | | | | | + + + +---------+ + + documented as of this encounter Progress Notes Conversion Transaction, Provider Unknown - 11/20/2013 4:20 PM PDTFormatting of this note m ight be different from the original. Case Management by Ashleigh Persaud RN at 11/20/13 1620 Author: Ashleigh Persaud RN Service: (none) Author Type: Registered Nurse Filed: 11/20/13 1621 Date of Service: 11/20/13 1620 Status: Signed Strategic Development Manager: Ashleigh Persaud RN (Registered Nurse) Faxed pt's prescriptions (non narcotic) to her pharmacy-[facility] in [place], [place]-per her r equest. Carlota ALVAREZ is providing her with hard copies to take with her. ASHLEIGH PERSAUD 11/20/2013 4:21 PM onver any Transaction, Provider Unknown - 11/20/2013 3:41 PM PDT Nurse Progress Note by Carlota Whittington RN at 11/20/13 1541 Author: Carlota Whittington RN Service: (none) Author Type: Registered Nurse Filed: 11/20/13 1544 Date of Service: 11/20/13 154 Status: Signed Strategic Development Manager: Carlota Whittington RN (Registered Nurse) Went back into room after patient was discharged and found her discharged papers. Called viraj saucedo who stated that she did not need them. Patient asked if her prescriptions had been fax ed to RX and I told her yes. Then she again stated that she did not need them. Told her that I would put them in the chart. Offered to fax them somewhere and she said she did not have fax number. She did not want them sent to her. Put papers in chart. confirmed with CM that p rescriptions were faxed to RX. She stated yes, she called and faxed the presciptions. Papers put in patients chart. Carlota Whittington RN onver any Transaction, Provider Unknown - 11/20/2013 3:15 PM PDT Nurse Progress Note by Carlota Whittington RN at 11/20/13 1515 Author: Carlota Whittington RN Service: (none) Author Type: Registered Nurse Filed: 11/20/13 1515 Date of Service: 11/20/13 1515 Status: Signed Strategic Development Manager: Carlota Whittington RN (Registered Nurse) In Home health delivered portable oxygen tank. Patient being discharged. Carlota Whittington RN onver any Transaction, Provider Unknown - 11/20/2013 11:03 AM PDT Nurse Progress Note by Carlota Whittington RN at 11/20/13 1103 Author: Carlota Whittington RN Service: (none) Author Type: Registered Nurse Filed: 11/20/13 1111 Date of Service: 11/20/13 1103 Status: Addendum Strategic Development Manager: Carlota Whittington RN (Registered Nurse) Related Notes: Original Note by Carlota Whittington RN (Registered Nurse) filed at 11/20/13 1 109 Patient was found on the floor facing downward by another RN. Patient was able to get herse lf up to sitting position on bed. Patient states that she was sitting in chair and tried to get up to go to bathroom, she leaked, and slipped on her urine. Patient is not wearing non-s kid socks because patient refused them. Patient was assessed no apparent injuries. Patient d enies any new pain, or any other post fall issues. Patient skin is intact, no bruising or te ars present. Patient does state that right knee has pain, but that it is unchanged from befo re the fall. Patient VSS, HR 65, BP 161/88, RR 20. Patient is sating at 80% on 2L NC. Instru cted patient to take deep breathes. Patients sats up to 85. RT present for breathing treatme nt. Durning treatment patients sats up to 96%. Patient asking for her food so she can eat br eakfast. Will continue to monitor. Notified MD of fall. Carlota Whittington RN Az Cameron DO - 11/19/2013 10:19 AM PDTFormatting of this note might be different from the gini ginal. Progress Notes by Az Stuart DO at 11/19/13 1019 Author: Az Stuart DO Service: (none) Author Type: Physician Filed: 11/19/13 1023 Date of Service: 11/19/13 1019 Status: Addendum Strategic Development Manager: Az Stuart DO (Physician) Related Notes: Original Note by Az Stuart DO (Physician) filed at 11/19/13 1022 PROGRESS NOTE 11/19/2013 for Deann Soria José on the hospitalist service. ASSESSMENT & PLAN (the first item on this list is the principle problem) Acute COPD exacerbation Improving on bronchodilators, steroid burst/taper, and empiric abx. Continue same, titrate down Solumedrol 40 mg IV bid to oral prednisone. Change abx to oral Levaquin (amox allergy). Possible DC tomorrow with ongoing improvement. CO2 retention Due to above, plan as above and monitor. Bacterial pneumonia Now unlikely with a negative procalcitonin level. Patient's symptoms explainable by acute C OPD exacerbation. Will continue abx as part of an efficacious regimen for tx of COPD. New leukocytosis Due to steroid therapy. HTN, morbid obesity She will need ongoing tight outpatient care for lifestyle modifications. Length of stay: 2 days DVT prophylaxis: HSQ Code status: full code Disposition: inpatient possible DC tomorrow SUBJECTIVE Patient seen/examined sitting in chair again, feeling better today, increased coughing and sputum production but overall breathing feels like it's improving, denies fever/chill, n/v/c /d, cp/dyspnea. OBJECTIVE Patient Vitals for the past 24 hrs: BP Temp Temp src Pulse Resp SpO2 Weight 11/19/13 0702 154/84 mmHg - - 78 20 93 % - 11/19/13 0542 - - - 63 20 91 % - 11/19/13 0541 - - - 64 20 90 % - 11/19/13 0536 - - - 78 20 90 % - 11/19/13 0312 - - - - - 90 % - 11/19/13 0257 138/75 mmHg 97.8 F (36.6 C) Temporal 66 20 87 % 198.6 kg (437 lb 13.3 o z) 11/18/13 2353 - - - 86 20 97 % - 11/18/13 2304 167/93 mmHg 97.6 F (36.4 C) Temporal 71 20 93 % - 11/18/13 1907 150/83 mmHg 96.6 F (35.9 C) Temporal 66 20 94 % - 11/18/13 1740 153/93 mmHg 98.4 F (36.9 C) Oral 98 22 96 % - 11/18/13 1717 - - - 81 20 94 % - 11/18/13 1706 - - - 72 22 93 % - 11/18/13 1130 - - - 79 20 - - 11/18/13 1126 168/65 mmHg 98.3 F (36.8 C) Oral 96 19 96 % - 11/18/13 1120 - - - 70 20 93 % - Physical exam: NAD AOx3 Morbidly obese HENT - MMM, conjunctivae normal Heart - RRR no murmur, normal radial / DP pulses B/L Lungs - More air movement more exp wheezes, no rales Abd - SNTND +BSx4 Ext - Good ROM no tenderness or edema Skin - normal no lesion CBC: Lab Results Component Value Date WBC 12.9* 11/19/2013 RBC 4.37 11/19/2013 HGB 14.1 11/19/2013 HCT 43.7 11/19/2013 MCV 100.0 11/19/2013 MCH 32.1 11/19/2013 MCHC 32.1 11/19/2013 RDW 56.4* 11/19/2013 PLT 295 11/19/2013 MPV 8.4 11/19/2013 DIFFTYPE MANUAL 11/19/2013 CMP: Lab Results Component Value Date NA 137 11/19/2013 K 4.6 11/19/2013 CL 96* 11/19/2013 CO2 36* 11/19/2013 ANIONGAP 10 11/19/2013 GLUF 121* 11/19/2013 BUN 16 11/19/2013 CREATININE 0.65 11/19/2013 BCR 25 11/19/2013 CA 9.4 11/19/2013 PROT 7.0 11/17/2013 ALB 3.3* 11/17/2013 GLOB 3.7 11/17/2013 BILITOT 0.3 11/17/2013 ALP 87 11/17/2013 AST 15 11/17/2013 ALT 27 11/17/2013 EGFR >60 11/19/2013 MEDICATIONS aspirin 81 mg Oral Daily with breakfast azithromycin 500 mg Intravenous Q24H carvedilol 50 mg Oral BID WC cefTRIAXone 1 g Intravenous Q24H clonazePAM 2 mg Oral Nightly cloNIDine 0.1 mg Oral nightly estradiol 2 mg Oral Daily fluticasone 2 puff Inhalation BID heparin (porcine) 5,000 Units Subcutaneous Q8H ipratropium-albuterol 3 mL Nebulization Q6H i-oqrkrapaflwy-o9-b6-b12 1 tablet Oral Daily lamotrigine 300 mg Oral Nightly [COMPLETED] lip moisturizer methylPREDNISolone 37.5 mg Intravenous Q12H nystatin Topical BID [COMPLETED] pneumococcal 23-valent vaccine 0.5 mL Intramuscular Once Immunization Pramipexole Dihydrochloride 0.375 mg Oral BID sodium chloride 10 mL Intravenous Q8H sodium chloride 0.9 % 10 mL Intravenous Q12H ANJALI thyroid 60 mg Oral QAM AC [DISCONTINUED] methylPREDNISolone 125 mg Intravenous Q6H PRN: acetaminophen, acetaminophen, ALPRAZolam, hydrALAZINE, HYDROcodone-acetaminophen, levalbute rol, nitroGLYCERIN, ondansetron, ondansetron, polyethylene glycol, sodium chloride 0.9 %, so dium chloride 0.9 % Signature: Az Stuart DO 11/19/2013 10:19 AM rownAz DO - 4:04 PM PDT Progress Notes by Az Stuart DO at 11/18/13 1607 Author: Az Stuart DO Service: (none) Author Type: Physician Filed: 11/18/13 8724 Date of Service: 11/18/13 1601 Status: Signed Strategic Development Manager: Az Stuart DO (Physician) PROGRESS NOTE 11/18/2013 for Deann José on the hospitalist service. ASSESSMENT & PLAN (the first item on this list is the principle problem) Acute COPD exacerbation Improving on bronchodilators, steroid burst/taper, and empiric abx. Continue same, titrate down Solumedrol to 40 mg IV bid. Possible change to oral steroid and abx regimen tomorrow wi th ongoing improvement. CO2 retention Due to above, plan as above and monitor. Bacterial pneumonia Possible, unclear with above picture, as all her symptoms could possibly be explained by ab ove. Check procalcitonin level. HTN, morbid obesity She will need ongoing tight outpatient care for lifestyle modifications. Length of stay: 1 days DVT prophylaxis: HSQ Code status: full code Disposition: inpatient SUBJECTIVE Patient seen/examined sitting in chair, feeling like she's improving slowly, no complaints today, denies fever/chill, n/v/c/d, cp/dyspnea/cough. OBJECTIVE Patient Vitals for the past 24 hrs: BP Temp Temp src Pulse Resp SpO2 11/18/13 1130 - - - 79 20 - 11/18/13 1120 - - - 70 20 93 % 11/18/13 0814 212/109 mmHg 98.3 F (36.8 C) Oral 98 20 96 % 11/18/13 0604 - - - 78 20 94 % 11/18/13 0548 - - - 79 20 90 % 11/18/13 0252 153/76 mmHg 96.4 F (35.8 C) Oral 71 19 93 % 11/17/13 2255 168/82 mmHg 97 F (36.1 C) Oral 87 19 97 % 11/17/13 2244 - - - 77 18 96 % 11/17/13 2231 - - - 94 18 91 % 11/17/13 1901 142/85 mmHg 96.2 F (35.7 C) Oral 60 18 95 % Physical exam: NAD AOx3 Morbidly obese HENT - MMM, conjunctivae normal Heart - RRR no murmur, normal radial / DP pulses B/L Lungs - Increased amplitude of breathing today, decreased breath sounds globally with few q uiet end-expiratory wheezes, no rales Abd - SNTND +BSx4 Ext - Good ROM no tenderness or edema Skin - normal no lesion CBC: Lab Results Component Value Date WBC 9.0 11/18/2013 RBC 4.28 11/18/2013 HGB 13.8 11/18/2013 HCT 41.7 11/18/2013 MCV 97.4 11/18/2013 MCH 32.2 11/18/2013 MCHC 33.1 11/18/2013 RDW 55.1* 11/18/2013 PLT 275 11/18/2013 MPV 8.4 11/18/2013 DIFFTYPE MANUAL 11/18/2013 CMP: Lab Results Component Value Date NA 136 11/18/2013 K 4.5 11/18/2013 CL 97* 11/18/2013 CO2 33* 11/18/2013 ANIONGAP 11 11/18/2013 GLUF 157* 11/18/2013 BUN 14 11/18/2013 CREATININE 0.73 11/18/2013 BCR 19 11/18/2013 CA 9.4 11/18/2013 PROT 7.0 11/17/2013 ALB 3.3* 11/17/2013 GLOB 3.7 11/17/2013 BILITOT 0.3 11/17/2013 ALP 87 11/17/2013 AST 15 11/17/2013 ALT 27 11/17/2013 EGFR >60 11/18/2013 MEDICATIONS aspirin 81 mg Oral Daily with breakfast azithromycin 500 mg Intravenous Q24H carvedilol 50 mg Oral BID WC cefTRIAXone 1 g Intravenous Q24H clonazePAM 2 mg Oral Nightly cloNIDine 0.1 mg Oral nightly estradiol 2 mg Oral Daily fluticasone 2 puff Inhalation BID heparin (porcine) 5,000 Units Subcutaneous Q8H ipratropium-albuterol 3 mL Nebulization Q6H g-sxzjuqzinhyx-u7-b6-b12 1 tablet Oral Daily lamotrigine 300 mg Oral Nightly [COMPLETED] lip moisturizer [START ON 11/19/2013] methylPREDNISolone 37.5 mg Intravenous Q12H nystatin Topical BID [COMPLETED] pneumococcal 23-valent vaccine 0.5 mL Intramuscular Once Immunization Pramipexole Dihydrochloride 0.375 mg Oral BID sodium chloride 10 mL Intravenous Q8H sodium chloride 0.9 % 10 mL Intravenous Q12H ANJALI thyroid 60 mg Oral QAM AC [DISCONTINUED] lamotrigine 300 mg Oral Daily [DISCONTINUED] methylPREDNISolone 125 mg Intravenous Q6H PRN: acetaminophen, acetaminophen, ALPRAZolam, hydrALAZINE, HYDROcodone-acetaminophen, levalbute rol, nitroGLYCERIN, ondansetron, ondansetron, [COMPLETED] perflutren lipid microspheres, jania yethylene glycol, sodium chloride 0.9 %, sodium chloride 0.9 %, [DISCONTINUED] ALPRAZolam Signature: Az Stuart DO 11/18/2013 4:04 PM onversion Transaction , Provider Unknown - 11/17/2013 11:03 AM PDT Case Management by Marlon Thomas MS, VISUAL COORDINATOR at 11/17/13 1103 Author: Marlon Thomas MS, VISUAL COORDINATOR Service: (none) Author Type: Dock Worker Filed: 11/17/137 Date of Service: 11/17/131102 Status: Signed Strategic Development Manager: Marlon Thomas MS, MSW (Dock Worker) 11/17/13 1057 Discharge Planning Evaluation Admitting Diagnosis Acute exacerbation of COPD with Asthma Readmission No Living Arrangements Children Support Systems Children Type of Residence Private residence House type House-1 story Independent with ADL's Yes Independent with Mobility Yes Home Care Services No Caregiver after Discharge No Mental Status Oriented Prior functional status Cm met with pt re: plan of care post discharge. Pt resides in [facility] and was a transfer from [facility]. Pt reports she is independent, use s no DME, in on home O2 through [facility]. Pt drives. Pt is obese however pt reports s he can manage her adl's. Power of Injection Molding Machine Offbearer No Anticipated Discharge Plan Post Acute Care Needs None at this time Plan communicated to patient/family Yes Resources Financial concerns No Transportation issues No (Pt will have family transport her home. ) Patient/Family concerns No Anticipated Disposition Facility Type (Return to home) CM met with pt to discuss plan of care post discharge. Pt is a 43 y.o. female [facility] with her 15 year old child. Patient's PCP is: BASSAM ROSS Patient's insurance:Medicaid [place] Coverage concerns:none reported Medication coverage/concerns: none reported Community resources utilized / needed: pt reports she is independent Assistance in transportation: private Identification of any specific education / training: none Barriers to Discharge / Alternative housing needed:none Anticipated DCP: Return to home in [facility] Marlon Thomas onver any Transaction, Provider Unknown - 11/17/2013 8:42 AM PDT Progress Notes by Jose Corrae RPH at 11/17/13 0842 Author: Jose Correa RPH Service: (none) Author Type: Pharmacist Filed: 11/17/1342 Date of Service: 11/17/13841 Status: Signed Strategic Development Manager: Jose Correa RPH (Pharmacist) Clinical Pharmacy Note: Renal Monitoring Deann José 43 y.o. female Ht Readings from Last 1 Encounters: 11/17/13 1.6 m (5' 2.99") Wt Readings from Last 1 Encounters: 11/17/13 195.047 kg (430 lb) CREATININE Date Value Range Status 11/17/2013 0.55 0.50 - 1.00 mg/dL Final Testing [place] [facility] [place] [address];[place] [address] CREATININE: 0.55 (11/17/13641) Estimated creatinine clearance - Cockcroft-Gault CrCl: 223.1 mL/min Pharmacy dosing for renal function per Dr. Ballard. Currently, there are no medications needing to be adjusted. Pharmacy will continue to monit or for changes in medication orders and in renal function and adjust accordingly. Jose Correa RPh 11/17/2013 8:42 AM onver any Marquitaaction, Provider Unknown - 11/17/2013 8:04 AM PDT Progress Notes by Jose Correa RPH at 11/17/13803 Author: Jose Correa RPH Service: (none) Author Type: Pharmacist Filed: 11/17/13803 Date of Service: 11/17/13803 Status: Signed Strategic Development Manager: Jose Correa RPH (Pharmacist) Pharmacy does not stock pramipexole tb24 0.375mg. Sticky not sent requesting pts own med to be brought in. docume nted in this encounter Plan of Treatment +--------+---------+ + + + | Date | Type | Specialty | Care Team | Description | +--------+---------+ + + + | 06/14/ | Office | Pulmonology | Adolfo Zazueta, | | | 2019 | Visit | | MD Jac JOHNSON | | | | | | [place] | | | | | | [phone] | | | | | | | | +--------+---------+ + + + | 01/18/ | Office | Sleep Medicine | Jermaine Fairchild | | 2019 | Visit | | MD Jac Sousa [facility] | | | | | | [place] | | | | | | [place] [address] | | | | | | [phone] | | | | | | | | +--------+---------+ + + + documented as of this encounter Procedures + +--------+ + + + | Procedure Name | Priori | Date/Time | Associated Diagnosis | Comments | | | ty | | | | + +--------+ + + + | EXTERNAL LAB: SHERIDAN | Routin | 11/20/2013 | | Results for this | | | e | 4:22 AM | | procedure are in the | | | | PDT | | results section. | + +--------+ + + + | EXTERNAL LAB: SHERIDAN | Routin | 11/19/2013 | | Results for this | | | e | 5:00 AM | | procedure are in the | | | | PDT | | results section. | + +--------+ + + + | PROCALCITONIN, SERUM | Routin | 11/19/2013 | | Results for this | | | e | 5:00 AM | | procedure are in the | | | | PDT | | results section. | + +--------+ + + + | BASIC METABOLIC | Routin | 11/19/2013 | | Results for this | | PANEL | e | 5:00 AM | | procedure are in the | | | | PDT | | results section. | + +--------+ + + + | ECG 12 LEAD | Routin | 11/18/2013 | | Results for this | | | e | 6:48 AM | | procedure are in the | | | | PDT | | results section. | + +--------+ + + + | EXTERNAL LAB: CBC | Routin | 11/18/2013 | | Results for this | | | e | 4:33 AM | | procedure are in the | | | | PDT | | results section. | + +--------+ + + + | MAGNESIUM | Routin | 11/18/2013 | | Results for this | | | e | 4:33 AM | | procedure are in the | | | | PDT | | results section. | + +--------+ + + + | BASIC METABOLIC | Routin | 11/18/2013 | | Results for this | | PANEL | e | 4:33 AM | | procedure are in the | | | | PDT | | results section. | + +--------+ + + + | TROPONIN I | Routin | 11/17/2013 | | Results for this | | | e | 6:20 PM | | procedure are in the | | | | PDT | | results section. | + +--------+ + + + | CK-MB | Routin | 11/17/2013 | | Results for this | | | e | 6:20 PM | | procedure are in the | | | | PDT | | results section. | + +--------+ + + + | CK TOTAL | Routin | 11/17/2013 | | Results for this | | | e | 6:20 PM | | procedure are in the | | | | PDT | | results section. | + +--------+ + + + | TROPONIN I | Routin | 11/17/2013 | | Results for this | | | e | 12:21 PM | | procedure are in the | | | | PDT | | results section. | + +--------+ + + + | CK-MB | Routin | 11/17/2013 | | Results for this | | | e | 12:21 PM | | procedure are in the | | | | PDT | | results section. | + +--------+ + + + | D-DIMER | Routin | 11/17/2013 | | Results for this | | | e | 12:21 PM | | procedure are in the | | | | PDT | | results section. | + +--------+ + + + | CK TOTAL | Routin | 11/17/2013 | | Results for this | | | e | 12:21 PM | | procedure are in the | | | | PDT | | results section. | + +--------+ + + + | ECHO COMPLETE W | Routin | 11/17/2013 | | Results for this | | CONTRAST | e | 10:11 AM | | procedure are in the | | | | PDT | | results section. | + +--------+ + + + | URINALYSIS, REFLEX | Routin | 11/17/2013 | | Results for this | | MICROSCOPIC AND/OR | e | 8:17 AM | | procedure are in the | | CULTURE | | PDT | | results section. | + +--------+ + + + | EXTERNAL LAB: CBC | Routin | 11/17/2013 | | Results for this | | | e | 6:42 AM | | procedure are in the | | | | PDT | | results section. | + +--------+ + + + | TROPONIN I | Routin | 11/17/2013 | | Results for this | | | e | 6:42 AM | | procedure are in the | | | | PDT | | results section. | + +--------+ + + + | CK-MB | Routin | 11/17/2013 | | Results for this | | | e | 6:42 AM | | procedure are in the | | | | PDT | | results section. | + +--------+ + + + | C-REACTIVE PROTEIN | Routin | 11/17/2013 | | Results for this | | | e | 6:42 AM | | procedure are in the | | | | PDT | | results section. | + +--------+ + + + | PHOSPHORUS | Routin | 11/17/2013 | | Results for this | | | e | 6:42 AM | | procedure are in the | | | | PDT | | results section. | + +--------+ + + + | MAGNESIUM | Routin | 11/17/2013 | | Results for this | | | e | 6:42 AM | | procedure are in the | | | | PDT | | results section. | + +--------+ + + + | HEMOGLOBIN A1C | Routin | 11/17/2013 | | Results for this | | | e | 6:42 AM | | procedure are in the | | | | PDT | | results section. | + +--------+ + + + | CK TOTAL | Routin | 11/17/2013 | | Results for this | | | e | 6:42 AM | | procedure are in the | | | | PDT | | results section. | + +--------+ + + + | COMPREHENSIVE | Routin | 11/17/2013 | | Results for this | | METABOLIC PANEL | e | 6:42 AM | | procedure are in the | | | | PDT | | results section. | + +--------+ + + + | XR CHEST 2 VIEWS | Routin | 11/16/2013 | | Results for this | | | e | 5:12 AM | | procedure are in the | | | | PDT | | results section. | + +--------+ + + + | XR CHEST 1 VIEW | Routin | 01/24/2013 | | Results for this | | | e | 5:12 AM | | procedure are in the | | | | PDT | | results section. | + +--------+ + + + documented in this encounter Results External Lab: [facility] (11/20/2013 4:22 AM PDT) + + + + + + | Component | Value | Ref Range | Performed | Pathologist | | | | | At | Signature | + + + + + + | WBC | 12.8 (H)Comment: Testing | 3.8 - 11.0 K/uL | EXTERNAL | | | | performed at [facility], [address] | | LAB | | | | [address], | | | | | | [place] [address] | | | | + + + + + + | RED CELL | 4.39Comment: Testing | 3.70 - 5.10 | EXTERNAL | | | COUNT | performed at [facility], [address] | M/uL | LAB | | | | [address], | | | | | | [place] [address] | | | | + + + + + + | Hgb | 14.1Comment: Testing | 11.3 - 15.5 | EXTERNAL | | | | performed at [facility], [address] | g/dL | LAB | | | | [address], | | | | | | [place] [address] | | | | + + + + + + | Hematocrit, | 43.8Comment: Testing | 34.0 - 46.0 % | EXTERNAL | | | POC | performed at [facility], [address] | | LAB | | | | [address], | | | | | | [place] [address] | | | | + + + + + + | MCV | 99.7Comment: Testing | 80.0 - 100.0 fl | EXTERNAL | | | | performed at [facility], [address] | | LAB | | | | [address], | | | | | | [place] [address] | | | | + + + + + + | MCH | 32.1Comment: Testing | 27.0 - 34.0 pg | EXTERNAL | | | | performed at [facility], [address] | | LAB | | | | [address], | | | | | | [place] [address] | | | | + + + + + + | MCHC | 32.2Comment: Testing | 32.0 - 35.5 | EXTERNAL | | | | performed at [facility], [address] | g/dL | LAB | | | | [address], | | | | | | [place] [address] | | | | + + + + + + | RDW-CV | 54.7 (H)Comment: Testing | 37 - 53 fl | EXTERNAL | | | | performed at [facility], [address] | | LAB | | | | [address] [address], | | | | | | [place] [address] | | | | + + + + + + | Platelet | 251Comment: Testing | 150 - 400 K/uL | EXTERNAL | | | Count | performed at [facility], [address] | | LAB | | | Plasma | [address], | | | | | | [place] [address] | | | | + + + + + + | MPV | 8.2Comment: Testing | fl | EXTERNAL | | | | performed at [facility], [address] | | LAB | | | | [address], | | | | | | [place] [address] | | | | + + + + + + | Differentia | AUTOMATEDComment: | | EXTERNAL | | | l Type | Testing performed at | | LAB | | | | [facility], [address] | | | | | | [place] | | | | | | [address] | | | | + + + + + + | % Segmented | 74.6Comment: Testing | % | EXTERNAL | | | | performed at [facility], [address] | | LAB | | | Neutrophils | [address], | | | | | | [place] [address] | | | | + + + + + + | % | 13.4Comment: Testing | % | EXTERNAL | | | Lymphocytes | performed at [facility], [address] | | LAB | | | | [address], | | | | | | [place] [address] | | | | + + + + + + | % Monocytes | 11.7Comment: Testing | % | EXTERNAL | | | | performed at [facility], [address] | | LAB | | | | [address], | | | | | | [place] [address] | | | | + + + + + + | % | 0.1Comment: Testing | % | EXTERNAL | | | Eosinophils | performed at [facility], [address] | | LAB | | | | [address], | | | | | | [place] [address] | | | | + + + + + + | % Basophils | 0.2Comment: Testing | % | EXTERNAL | | | | performed at [facility], [address] | | LAB | | | | [address], | | | | | | [place] [address] | | | | + + + + + + | Absolute | 9.5 (H)Comment: Testing | 1.9 - 7.4 K/uL | EXTERNAL | | | Segmented | performed at [facility], [address] | | LAB | | | Neutrophils | [address], | | | | | | [place] [address] | | | | + + + + + + | Absolute | 1.7Comment: Testing | 1.0 - 3.9 K/uL | EXTERNAL | | | Lymphocytes | performed at [facility], [address] | | LAB | | | | [address], | | | | | | [place] [address] | | | | + + + + + + | Absolute | 1.5 (H)Comment: Testing | 0 - 0.8 K/uL | EXTERNAL | | | Monocytes | performed at [facility], [address] | | LAB | | | | [address], | | | | | | [place] [address] | | | | + + + + + + | Absolute | 0.0Comment: Testing | 0 - 0.5 K/uL | EXTERNAL | | | Eosinophils | performed at [facility], [address] | | LAB | | | | [address], | | | | | | [place] [address] | | | | + + + + + + | Absolute | 0.0Comment: Testing | 0 - 0.1 K/uL | EXTERNAL | | | Basophils | performed at [facility], [address] | | LAB | | | | [address], | | | | | | [place] [address] | | | | + + + + + + + + | Specimen | + + | Blood specimen | | (specimen) | + + + +---------+ + + | Performing | Address | City/State/Zipcode | Phone Number | | Organization | | | | + +---------+ + + | EXTERNAL LAB | | | | + +---------+ + + Procalcitonin (11/19/2013 5:00 AM PDT) + + + + + + | Component | Value | Ref Range | Performed | Pathologist | | | | | At | Signature | + + + + + + | Source | PLASMAComment: Testing | | EXTERNAL | | | | performed at [facility] | | LAB | | | | [address];[place] | | | | | | [address] | | | | + + + + + + | PROCALCITON | <0.05Comment: | ng/mL | EXTERNAL | | | IN | INTERPRETIVE | | LAB | | | | INFORMATION: | | | | | | PROCALCITONIN PCT <= | | | | | | 0.5 ng/mL: Low risk | | | | | | for progression to | | | | | | severe systemic | | | | | | bacterial infection | | | | | | (severe sepsis/septic | | | | | | shock). Does not | | | | | | exclude an infection, | | | | | | because localized | | | | | | infections may be | | | | | | associated with such low | | | | | | levels. If PCT is | | | | | | measured very early | | | | | | after bacterial | | | | | | challenge (usually <6 | | | | | | hours), results may | | | | | | still be low and | | | | | | should re-assess PCT | | | | | | 6-24 hours later. PCT | | | | | | >0.5 and <= 2 ng/mL: | | | | | | Moderate risk for | | | | | | progression to severe | | | | | | systemic infection | | | | | | (severe sepsis/septic | | | | | | shock). Other | | | | | | conditions are known | | | | | | to elevate PCT, patient | | | | | | should be closely | | | | | | monitored both | | | | | | clinically and by | | | | | | re-assessing PCT | | | | | | within 6-24 hours. PCT > | | | | | | 2 ng/mL: High | | | | | | likelihood for | | | | | | progression to severe | | | | | | systemic bacterial | | | | | | infection (severe | | | | | | sepsis/septic shock). | | | | | | PCT >= 10 ng/mL: | | | | | | High likelihood of | | | | | | severe sepsis or septic | | | | | | shock.Testing performed | | | | | | at [facility] [place] [address] | | | | | | [facility];[place] [address] | | | | + + + + + + + + | Specimen | + + | | + + + +---------+ + + | Performing | Address | City/State/Zipcode | Phone Number | | Organization | | | | + +---------+ + + | EXTERNAL LAB | | | | + +---------+ + + External Lab: [facility] (11/19/2013 5:00 AM PDT) + + + + + + | Component | Value | Ref Range | Performed | Pathologist | | | | | At | Signature | + + + + + + | WBC | 12.9 (H)Comment: Testing | 3.8 - 11.0 K/uL | EXTERNAL | | | | performed at [facility], [address] | | LAB | | | | [address], | | | | | | [place] [address] | | | | + + + + + + | RED CELL | 4.37Comment: Testing | 3.70 - 5.10 | EXTERNAL | | | COUNT | performed at [facility], [address] | M/uL | LAB | | | | [address], | | | | | | [place] [address] | | | | + + + + + + | Hgb | 14.1Comment: Testing | 11.3 - 15.5 | EXTERNAL | | | | performed at [facility], [address] | g/dL | LAB | | | | [address], | | | | | | [place] [address] | | | | + + + + + + | Hematocrit, | 43.7Comment: Testing | 34.0 - 46.0 % | EXTERNAL | | | POC | performed at [facility], [address] | | LAB | | | | [address], | | | | | | [place] [address] | | | | + + + + + + | MCV | 100.0Comment: Testing | 80.0 - 100.0 fl | EXTERNAL | | | | performed at [facility], [address] | | LAB | | | | [address], | | | | | | [place] [address] | | | | + + + + + + | MCH | 32.1Comment: Testing | 27.0 - 34.0 pg | EXTERNAL | | | | performed at [facility], [address] | | LAB | | | | [address], | | | | | | [place] [address] | | | | + + + + + + | MCHC | 32.1Comment: Testing | 32.0 - 35.5 | EXTERNAL | | | | performed at [facility], [address] | g/dL | LAB | | | | [address], | | | | | | [place] [address] | | | | + + + + + + | RDW-CV | 56.4 (H)Comment: Testing | 37 - 53 fl | EXTERNAL | | | | performed at [facility], [address] | | LAB | | | | [address], | | | | | | [place] [address] | | | | + + + + + + | Platelet | 295Comment: Testing | 150 - 400 K/uL | EXTERNAL | | | Count | performed at [facility], [address] | | LAB | | | Plasma | [address], | | | | | | [place] [address] | | | | + + + + + + | MPV | 8.4Comment: Testing | fl | EXTERNAL | | | | performed at [facility], [address] | | LAB | | | | [address], | | | | | | [place] [address] | | | | + + + + + + | Differentia | MANUALComment: Testing | | EXTERNAL | | | l Type | performed at [facility], [address] | | LAB | | | | [address], | | | | | | [place] [address] | | | | + + + + + + | Segmented | 72Comment: Testing | % | EXTERNAL | | | Neutrophils | performed at [facility], [address] | | LAB | | | Manual | [address], | | | | | | [place] [address] | | | | + + + + + + | % Bands | 13Comment: Testing | % | EXTERNAL | | | | performed at [facility], [address] | | LAB | | | | [address], | | | | | | [place] [address] | | | | + + + + + + | % | 1Comment: Testing | % | EXTERNAL | | | Metamyelocy | performed at [facility], [address] | | LAB | | | [address] | [address], | | | | | | [place] [address] | | | | + + + + + + | Lymphocytes | 8Comment: Testing | % | EXTERNAL | | | Manual | performed at [facility], [address] | | LAB | | | | [address], | | | | | | [place] [address] | | | | + + + + + + | Monocytes | 6Comment: Testing | % | EXTERNAL | | | Manual | performed at [facility], [address] | | LAB | | | | [address], | | | | | | [place] [address] | | | | + + + + + + | Absolute | 9.3 (H)Comment: Testing | 1.9 - 7.4 K/uL | EXTERNAL | | | Neutrophils | performed at [facility], [address] | | LAB | | | | [address], | | | | | | [place] [address] | | | | + + + + + + | Bands | 1.7 (H)Comment: Testing | 0 - 0.2 K/uL | EXTERNAL | | | Manual | performed at [facility], [address] | | LAB | | | | [address], | | | | | | [place] [address] | | | | + + + + + + | Absolute | 0.1 (H)Comment: Testing | K/uL | EXTERNAL | | | Metamyelocy | performed at [facility], [address] | | LAB | | | [address] | [address], | | | | | | [place] [address] | | | | + + + + + + | Absolute | 1.0Comment: Testing | 1.0 - 3.9 K/uL | EXTERNAL | | | Lymphocytes | performed at [facility], [address] | | LAB | | | | [address], | | | | | | [place] [address] | | | | + + + + + + | Absolute | 0.8Comment: Testing | 0 - 0.8 K/uL | EXTERNAL | | | Monocytes | performed at [facility], [address] | | LAB | | | | [address], | | | | | | [place] [address] | | | | + + + + + + | RBC | 1+Comment: ANISONORMAL | | EXTERNAL | | | Morphology | PLT MORPHTesting | | LAB | | | | performed at [facility], [address] | | | | | | [employer] [address] [address], | | | | | | [place] [address] | | | | | | | [...] + +---------+ + + Basic Metabolic Panel (11/19/2013 5:00 AM PDT) + + + + + + | Component | Value | Ref Range | Performed | Pathologist | | | | | At | Signature | + + + + + + | Na | 137Comment: Testing | 135 - 143 | EXTERNAL | | | | performed at [facility], [address] | mmol/L | LAB | | | | [address], | | | | | | [place] [address] | | | | + + + + + + | K | 4.6Comment: Testing | 3.5 - 4.9 | EXTERNAL | | | | performed at [facility], [address] | mmol/L | LAB | | | | [address], | | | | | | [place] [address] | | | | + + + + + + | Cl | 96 (L)Comment: Testing | 99 - 109 mmol/L | EXTERNAL | | | | performed at [facility], [address] | | LAB | | | | [address], | | | | | | [place] [address] | | | | + + + + + + | CO2 | 36 (H)Comment: Testing | 23 - 32 mmol/L | EXTERNAL | | | | performed at [facility], [address] | | LAB | | | | [address], | | | | | | [place] [address] | | | | + + + + + + | Anion Gap | 10Comment: Testing | 5 - 20 mmol/L | EXTERNAL | | | | performed at [facility], [address] | | LAB | | | | [address], | | | | | | [place], [place] [address] | | | | + + + + + + | Glucose, | 121 (H)Comment: Testing | 65 - 99 mg/dL | EXTERNAL | | | Fasting | performed at [facility], [address] | | LAB | | | | [address], | | | | | | [place] [address] | | | | + + + + + + | BUN | 16Comment: Testing | 8 - 25 mg/dL | EXTERNAL | | | | performed at [facility], [address] | | LAB | | | | [address], | | | | | | [place] [address] | | | | + + + + + + | Creatinine | 0.65Comment: Testing | 0.50 - 1.00 | EXTERNAL | | | | performed at [facility], [address] | mg/dL | LAB | | | | [address], | | | | | | [place] [address] | | | | + + + + + + | BUN/Creatin | 25Comment: Testing | | EXTERNAL | | | ine Ratio | performed at [facility], [address] | | LAB | | | | [address], | | | | | | [place] [address] | | | | + + + + + + | Calcium | 9.4Comment: Testing | 8.5 - 10.2 | EXTERNAL | | | | performed at [facility], [address] | mg/dL | LAB | | | | [address], | | | | | | [place] [address] | | | | + + + [...] BY | | | | | | 1.210.Testing performed | | | | | | at [facility], [address] | | | | | | [address], | | | | | | [place] [address] | | | | + + + + + + + + | Specimen | + + | Blood specimen | | (specimen) | + + + +---------+ + + | Performing | Address | City/State/Zipcode | Phone Number | | Organization | | | | + +---------+ + + | EXTERNAL LAB | | | | + +---------+ + + ECG 12 lead (11/18/2013 6:48 AM PDT) + + + + + + | Component | Value | Ref Range | Performed | Pathologist | | | | | At | Signature | + + + + + + | DIAGNOSIS: | Sinus | | EXTERNAL | | | | bradycardiaOtherwise | | LAB | | | | normal ECGWhen compared | | | | | | with ECG of 07-JAN-2010 | | | | | | 15:37,Nonspecific T wave | | | | | | abnormality no longer | | | | | | evident in Anterior | | | | | | leadsConfirmed by | | | | | | ALTAF DAO ([id number]) on | | | | | | 11/18/2013 6:41:11 PM | | | | + + + + + + + + | Specimen | + + | | + + + + + | Narrative | Performed At | + + + | [facility] | EXTERNAL LAB | + + + + +---------+ + + | Performing | Address | City/State/Zipcode | Phone Number | | Organization | | | | + +---------+ + + | EXTERNAL LAB | | | | + +---------+ + + External Lab: CBC (11/18/2013 4:33 AM PDT) + + + + + + | Component | Value | Ref Range | Performed | Pathologist | | | | | At | Signature | + + + + + + | WBC | 9.0Comment: Testing | 3.8 - 11.0 K/uL | EXTERNAL | | | | performed at [facility], [address] | | LAB | | | | [address], | | | | | | [place] [address] | | | | + + + + + + | RED CELL | 4.28Comment: Testing | 3.70 - 5.10 | EXTERNAL | | | COUNT | performed at [facility], [address] | M/uL | LAB | | | | [address], | | | | | | [place] [address] | | | | + + + + + + | Hgb | 13.8Comment: Testing | 11.3 - 15.5 | EXTERNAL | | | | performed at [facility], [address] | g/dL | LAB | | | | [address], | | | | | | [place] [address] | | | | + + + + + + | Hematocrit, | 41.7Comment: Testing | 34.0 - 46.0 % | EXTERNAL | | | POC | performed at [facility], [address] | | LAB | | | | [address], | | | | | | [place] [address] | | | | + + + + + + | MCV | 97.4Comment: Testing | 80.0 - 100.0 fl | EXTERNAL | | | | performed at [facility], [address] | | LAB | | | | [address], | | | | | | [place] [address] | | | | + + + + + + | MCH | 32.2Comment: Testing | 27.0 - 34.0 pg | EXTERNAL | | | | performed at [facility], [address] | | LAB | | | | [address], | | | | | | [place] [address] | | | | + + + + + + | MCHC | 33.1Comment: Testing | 32.0 - 35.5 | EXTERNAL | | | | performed at [facility], [address] | g/dL | LAB | | | | [address], | | | | | | [place] [address] | | | | + + + + + + | RDW-CV | 55.1 (H)Comment: Testing | 37 - 53 fl | EXTERNAL | | | | performed at [facility], [address] | | LAB | | | | [address], | | | | | | [place] [address] | | | | + + + + + + | Platelet | 275Comment: Testing | 150 - 400 K/uL | EXTERNAL | | | Count | performed at [facility], [address] | | LAB | | | Plasma | [address], | | | | | | [place] [address] | | | | + + + + + + | MPV | 8.4Comment: Testing | fl | EXTERNAL | | | | performed at [facility], [address] | | LAB | | | | [address], | | | | | | [place] [address] | | | | + + + + + + | Differentia | MANUALComment: Testing | | EXTERNAL | | | l Type | performed at [facility], [address] | | LAB | | | | [address], | | | | | | [place] [address] | | | | + + + + + + | Nucleated | 1 (H)Comment: Testing | /100WBC | EXTERNAL | | | Red Blood | performed at [facility], [address] | | LAB | | | Cells | [address], | | | | | | [place] [address] | | | | + + + + + + | Segmented | 74Comment: Testing | % | EXTERNAL | | | Neutrophils | performed at [facility], [address] | | LAB | | | Manual | [address], | | | | | | [place] [address] | | | | + + + + + + | % Bands | 12Comment: Testing | % | EXTERNAL | | | | performed at [facility], [address] | | LAB | | | | [address], | | | | | | [place] [address] | | | | + + + + + + | % | 1Comment: Testing | % | EXTERNAL | | | Metamyelocy | performed at [facility], [address] | | LAB | | | [address] | [address], | | | | | | [place] [address] | | | | + + + + + + | Lymphocytes | 8Comment: Testing | % | EXTERNAL | | | Manual | performed at [facility], [address] | | LAB | | | | [address], | | | | | | [place] [address] | | | | + + + + + + | Monocytes | 5Comment: Testing | % | EXTERNAL | | | Manual | performed at [facility], [address] | | LAB | | | | [address], | | | | | | [place] [address] | | | | + + + + + + | Absolute | 6.6Comment: Testing | 1.9 - 7.4 K/uL | EXTERNAL | | | Neutrophils | performed at [facility], [address] | | LAB | | | | [address], | | | | | | [place] [address] | | | | + + + + + + | Bands | 1.1 (H)Comment: Testing | 0 - 0.2 K/uL | EXTERNAL | | | Manual | performed at [facility], [address] | | LAB | | | | [address], | | | | | | [place] [address] | | | | + + + + + + | Absolute | 0.1 (H)Comment: Testing | K/uL | EXTERNAL | | | Metamyelocy | performed at [facility], [address] | | LAB | | | [address] | [address], | | | | | | [place] [address] | | | | + + + + + + | Absolute | 0.7 (L)Comment: Testing | 1.0 - 3.9 K/uL | EXTERNAL | | | Lymphocytes | performed at [facility], [address] | | LAB | | | | [address], | | | | | | [place] [address] | | | | + + + + + + | Absolute | 0.5Comment: Testing | 0 - 0.8 K/uL | EXTERNAL | | | Monocytes | performed at [facility], [address] | | LAB | | | | [address], | | | | | | [place] [address] | | | | + + + + + + | RBC | 1+Comment: ANISONORMAL | | EXTERNAL | | | Morphology | PLT MORPHTesting | | LAB | | | | performed at [facility], [address] | | | | | | [address], | | | | | | [place] [address] | | | | | | | [...] | | | + +---------+ + + Magnesium (11/18/2013 4:33 AM PDT) + + + + + + | Component | Value | Ref Range | Performed | Pathologist | | | | | At | Signature | + + + + + + | Magnesium | 2.0Comment: Testing | 1.7 - 2.4 mg/dL | EXTERNAL | | | | performed at [facility], [address] | | LAB | | | | [address], | | | | | | [place] [address] | | | | + + + [...] + +---------+ + + Basic Metabolic Panel (11/18/2013 4:33 AM PDT) + + + + + + | Component | Value | Ref Range | Performed | Pathologist | | | | | At | Signature | + + + + + + | Na | 136Comment: Testing | 135 - 143 | EXTERNAL | | | | performed at [facility], [address] | mmol/L | LAB | | | | [address], | | | | | | [place] [address] | | | | + + + + + + | K | 4.5Comment: Testing | 3.5 - 4.9 | EXTERNAL | | | | performed at [facility], [address] | mmol/L | LAB | | | | [address], | | | | | | [place] [address] | | | | + + + + + + | Cl | 97 (L)Comment: Testing | 99 - 109 mmol/L | EXTERNAL | | | | performed at [facility], [address] | | LAB | | | | [address], | | | | | | [place] [address] | | | | + + + + + + | CO2 | 33 (H)Comment: Testing | 23 - 32 mmol/L | EXTERNAL | | | | performed at [facility], [address] | | LAB | | | | [address], | | | | | | [place] [address] | | | | + + + + + + | Anion Gap | 11Comment: Testing | 5 - 20 mmol/L | EXTERNAL | | | | performed at [facility], [address] | | LAB | | | | [address], | | | | | | [place] [address] | | | | + + + + + + | Glucose, | 157 (H)Comment: Testing | 65 - 99 mg/dL | EXTERNAL | | | Fasting | performed at [facility], [address] | | LAB | | | | [address], | | | | | | [place] [address] | | | | + + + + + + | BUN | 14Comment: Testing | 8 - 25 mg/dL | EXTERNAL | | | | performed at [facility], [address] | | LAB | | | | [address], | | | | | | [place] [address] | | | | + + + + + + | Creatinine | 0.73Comment: Testing | 0.50 - 1.00 | EXTERNAL | | | | performed at [facility], [address] | mg/dL | LAB | | | | [address], | | | | | | [place] [address] | | | | + + + + + + | BUN/Creatin | 19Comment: Testing | | EXTERNAL | | | ine Ratio | performed at [facility], [address] | | LAB | | | | [address], | | | | | | [place] [address] | | | | + + + + + + | Calcium | 9.4Comment: Testing | 8.5 - 10.2 | EXTERNAL | | | | performed at [facility], [address] | mg/dL | LAB | | | | [facility], | | | | | | [place] [address] | | | | + + + [...] BY | | | | | | 1.210.Testing performed | | | | | | at [facility], [address] | | | | | | [address], | | | | | | [place] [address] | | | | + + + + + + + + | Specimen | + + | Blood specimen | | (specimen) | + + + +---------+ + + | Performing | Address | City/State/Zipcode | Phone Number | | Organization | | | | + +---------+ + + | EXTERNAL LAB | | | | + +---------+ + + [facility] (11/17/2013 6:20 PM PDT) + + + + + -+ | Component | Value | Ref Range | Performed | Pathologist | | | | | At | Signature | + + + + + -+ | [facility] | 2.3Comment: Testing | 0.5 - 3.6 ng/mL | EXTERNAL | | | | performed at [facility] | LAB | | | | [address];[place], [place] | | | | | | [address] | | | | + + + + + -+ | [facility] Index | 2.7Comment: CK INDEX | | EXTERNAL | | | | INTERPRETATION: | | LAB | | | | [facility] ng/mL | | | | | | | | | | | |[facility] INDEX INTERPRETATION: | | | | | | MMB ng/mL | | | | | | | | | | + + + + + -+ + + | Specimen | + + | | + + + +---------+ + + | Performing | Address | City/State/Zipcode | Phone Number | | Organization | | | | + +---------+ + + | EXTERNAL LAB | | | | + +---------+ + + Troponin I (11/17/2013 6:20 PM PDT) + + + + + + | Component | Value | Ref Range | Performed | Pathologist | | | | | At | Signature | + + + + + + | Troponin I, | <0.020Comment: 0.00 to | 0.00 - 0.10 | EXTERNAL | | | Qual | 0.10 CONSISTENT WITH | ng/mL | LAB | | | | NORMAL POPULATION0.11 | | | | | | to 0.60 CONSISTENT | | | | | | WITH INCREASED RISK FOR | | | | | | ADVERSE OUTCOMES> 0.60 | | | | | | CONSISTENT | | | | | | WITH WHO CRITERIA FOR | | | | | | ACUTE [place] Testing | | | | | | performed at [facility] | | | | | [address];[place], [place] | | | | | | [address] | | | | + + + + + + + + | Specimen | + + | Blood specimen | | (specimen) | + + + +---------+ + + | Performing | Address | City/State/Zipcode | Phone Number | | Organization | | | | + +---------+ + + | EXTERNAL LAB | | | | + +---------+ + + CK Total (11/17/2013 6:20 PM PDT) + + + + + + | Component | Value | Ref Range | Performed | Pathologist | | | | | At | Signature | + + + + + + | CK, Total | 85Comment: Testing | 30 - 240 U/L | EXTERNAL | | | | performed at [facility];[address] | | LAB | | | | [address];[place], [place] | | | | | | [address] | | | | + + + + + + + + | Specimen | + + | Blood specimen | | (specimen) | + + + +---------+ + + | Performing | Address | City/State/Zipcode | Phone Number | | Organization | | | | + +---------+ + + | EXTERNAL LAB | | | | + +---------+ + + CK-MB (11/17/2013 12:21 PM PDT) + + + + + -+ | Component | Value | Ref Range | Performed | Pathologist | | | | | At | Signature | + + + + + -+ | CK-MB | 2.1Comment: Testing | 0.5 - 3.6 ng/mL | EXTERNAL | | | | performed at [facility];[address] | | LAB | | | | [address];[place], [place] | | | | | | [address] | | | | + + + + + -+ | CK-MB Index | 2.5Comment: CK INDEX | | EXTERNAL | | | | INTERPRETATION: | | LAB | | | | MMB ng/mL | | | | | | | | | | | |CK INDEX INTERPRETATION: | | | | | | MMB ng/mL | | | | | | | | | | + + + + + -+ + + | Specimen | + + | | + + + +---------+ + + | Performing | Address | City/State/Zipcode | Phone Number | | Organization | | | | + +---------+ + + | EXTERNAL LAB | | | | + +---------+ + + Troponin I (11/17/2013 12:21 PM PDT) + + + + + + | Component | Value | Ref Range | Performed | Pathologist | | | | | At | Signature | + + + + + + | Troponin I, | <0.020Comment: 0.00 to | 0.00 - 0.10 | EXTERNAL | | | Qual | 0.10 CONSISTENT WITH | ng/mL | LAB | | | | NORMAL POPULATION0.11 | | | | | | to 0.60 CONSISTENT | | | | | | WITH INCREASED RISK FOR | | | | | | ADVERSE OUTCOMES> 0.60 | | | | | | CONSISTENT | | | | | | WITH WHO CRITERIA FOR | | | | | | ACUTE [place] Testing | | | | | | performed at [facility];[address] | | [address];[place], [place] | | | | | | [address] | | | | + + + + + + + + | Specimen | + + | Blood specimen | | (specimen) | + + + +---------+ + + | Performing | Address | City/State/Zipcode | Phone Number | | Organization | | | | + +---------+ + + | EXTERNAL LAB | | | | + +---------+ + + D-Dimer (11/17/2013 12:21 PM PDT) + + + + + + | Component | Value | Ref Range | Performed | Pathologist | | | | | At | Signature | + + + + + + | D-DIMER, | 0.45Comment: D Dimer | 0.19 - 0.50 | EXTERNAL | | | MANUAL | results less than 0.50 | mg/L FEU | LAB | | | | mg/L FEU may rule out | | | | | | DVT and PE. However, | | | | | | all laboratory results | | | | | | should be interpreted in | | | | | | the context of all | | | | | | available clinical, | | | | | | radiologic and | | | | | | laboratory | | | | | | information.Testing | | | | | | performed at [facility] | | | | | | [facility];[place], [place] | | | | | | [address] | | | | + + + + + + + + | Specimen | + + | Blood specimen | | (specimen) | + + + +---------+ + + | Performing | Address | City/State/Zipcode | Phone Number | | Organization | | | | + +---------+ + + | EXTERNAL LAB | | | | + +---------+ + + CK Total (11/17/2013 12:21 PM PDT) + + + + + + | Component | Value | Ref Range | Performed | Pathologist | | | | | At | Signature | + + + + + + | CK, Total | 85Comment: Testing | 30 - 240 U/L | EXTERNAL | | | | performed at [facility] | | LAB | | | | [address];[place] | | | | | | [address] | | | | + + + + + + + + | Specimen | + + | Blood specimen | | (specimen) | + + + +---------+ + + | Performing | Address | City/State/Zipcode | Phone Number | | Organization | | | | + +---------+ + + | EXTERNAL LAB | | | | + +---------+ + + ECHO Complete w Contrast (11/17/2013 10:11 AM PDT) + + | Specimen | + + | | + + + + + | Impressions | Performed At | + + + | 1. Sinus rhythm. 2. A 2-dimensional transthoracic echocardiogram | | | with m-mode, spectral and color flow Doppler was perfomed. 3. This | | | was a technically difficult study with suboptimal views. 4. Overall | | | left ventricular systolic function is normal with, an EF between 60 - | | | 65 %. 5. Left Ventricle ejection fraction by m-mode measures | | | {EF(Teich)}. 6. No regional wall motion abnormalities. 7. The | | | diastolic filling pattern is normal for the age of the patient. 8. | | | The RV was not well visualized. 9. The left atrial size is normal. | | | 10. , and the LA measures 3.9cm. 11. The right atrium was not well | | | visualized. 12. The aortic valve is trileaflet and appears | | | structurally normal. 13. There is no evidence of aortic | | | regurgitation. 14. The mitral valve is normal. 15. The tricuspid | | | valve appears structurally normal. 16. Mild tricuspid regurgitation | | | present. 17. There is mild pulmonary hypertension. 18. The right | | | ventricular systolic pressure (pulmonary artery systolic pressure), as | | | measured by Doppler, is 37 + 10 = 47mmHg. 19. The pulmonic valve was | | | not well visualized. 20. There is no pericardial effusion. 21. No | | | mass visualized 22. Poor visualization. Definity was used to opacify | | | the left ventricular chamber and improve delineation of the | | | endocardial border. | | + + + + + + | Narrative | Performed At | + + + | Patient Name: DEANN JOSÉ Date of : 1970 | | | Performing Physician: Ian Dao MD | | | | | | INDICATIONS sob CONCLUSIONS 1. Sinus | | | rhythm. 2. A 2-dimensional transthoracic echocardiogram with m-mode, | | | spectral and color flow Doppler was perfomed. 3. This was a | | | technically difficult study with suboptimal views. 4. Overall left | | | ventricular systolic function is normal with, an EF between 60 - 65 %. | | | 5. Left Ventricle ejection fraction by m-mode measures {EF(Teich)}. | | | 6. No regional wall motion abnormalities. 7. The diastolic filling | | | pattern is normal for the age of the patient. 8. The RV was not well | | | visualized. 9. The left atrial size is normal. 10. , and the LA | | | measures 3.9cm. 11. The right atrium was not well visualized. 12. | | | The aortic valve is trileaflet and appears structurally normal. 13. | | | There is no evidence of aortic regurgitation. 14. The mitral valve is | | | normal. 15. The tricuspid valve appears structurally normal. 16. | | | Mild tricuspid regurgitation present. 17. There is mild pulmonary | | | hypertension. 18. The right ventricular systolic pressure (pulmonary | | | artery systolic pressure), as measured by Doppler, is 37 + 10 = | | | 47mmHg. 19. The pulmonic valve was not well visualized. 20. There is | | | no pericardial effusion. 21. No mass visualized 22. Poor | | | visualization. Definity was used to opacify the left ventricular | | | chamber and improve delineation of the endocardial border. | | | FINDINGS -------- ECG rhythm: Sinus rhythm. Study: A 2-dimensional | | | transthoracic echocardiogram with m-mode, spectral and color flow | | | Doppler was perfomed. Study: This was a technically difficult study | | | with suboptimal views. Left Ventricle: Overall left ventricular | | | systolic function is normal with, an EF between 60 - 65 %. Left | | | Ventricle: Left Ventricle ejection fraction by m-mode measures | | | {EF(Teich)}. Left Ventricle: No regional wall motion abnormalities. | | | Left Ventricle: The diastolic filling pattern is normal for the age of | | | the patient. Right Ventricle: The RV was not well visualized. Left | | | Atrium: The left atrial size is normal Left Atrium: , and the LA | | | measures 3.9cm. Right Atrium: The right atrium was not well | | | visualized. Aortic Valve: The aortic valve is trileaflet and appears | | | structurally normal. Aortic Valve: There is no evidence of aortic | | | regurgitation. Mitral Valve: The mitral valve is normal. Tricuspid | | | Valve: The tricuspid valve appears structurally normal. Tricuspid | | | Valve: Mild tricuspid regurgitation present. Tricuspid Valve: There | | | is mild pulmonary hypertension. Tricuspid Valve: The right | | | ventricular systolic pressure (pulmonary artery systolic pressure), as | | | measured by Doppler, is 37 + 10 = 47mmHg. Pulmonic Valve: The | | | pulmonic valve was not well visualized. Pericardium: There is no | | | pericardial effusion. Mass: No mass visualized Contrast: Poor | | | visualization. Definity was used to opacify the left ventricular | | | chamber and improve delineation of the endocardial border. | | | MEASUREMENTS LVOT Diam: 1.95 cm Ao Diam: 3.31 | | | cm AV Cusp: 2.10 cm LA Diam: 3.89 cm LA/Ao: 1.17 D-E | | | Excursion: 2.10 cm E-F [place]: 0.02 m/s HR: 87.25 BPM AV | | | maxP.83 mmHg AV meanP.28 mmHg AV Vmax: 1.72 m/s | | | AV Vmean: 1.17 m/s AV VTI: 35.57 cm MIKHAIL Vmax: 2.60 cm2 MIKHAIL | | | (VTI): 2.36 cm2 LVCI Dopp: 2.39 l/minm2 LVCO Dopp: 6.42 | | | l/min HR: 76.55 BPM LVOT maxP.90 mmHg LVOT meanPG: | | | 4.59 mmHg LVSI Dopp: 31.33 ml/m2 LVSV Dopp: 83.97 ml LVOT | | | Vmax: 1.49 m/s LVOT Vmean: 0.99 m/s LVOT VTI: 28.00 cm MV | | | A Gregg: 1.23 m/s MV DecT: 301.45 ms MV E Gregg: 1.36 m/s MV | | | E/A Ratio: 1.10 MV PHT: 89.09 ms MVA By PHT: 2.46 cm2 MV A | | | Dur: 170.05 ms Septal e': 0.06 m/s Septal E/e': 22.61 | | | Lateral e': 0.07 m/s Lateral E/e': 18.96 HR: 87.25 BPM PV | | | maxP.99 mmHg PV meanP.60 mmHg PV Vmax: 1.65 m/s | | | PV Vmean: 1.10 m/s PV VTI: 32.33 cm TR maxP.47 mmHg | | | TR Vmax: 3.06 m/s TV A Gregg: 0.73 m/s TV Dec [place]uma: 4.62 | | | m/s2 TV Dec Time: 217.99 ms TV E Gregg: 1.00 m/s TV E/A Ratio: | | | 1.36 Bending Frame Operator: EVERETT Authenticated by: Ian Dao MD | | | Report Date/Time: 11-18-2013 17:21:28 | | + + + + + | Procedure Note | + + | Tommy Gloria - 01/15/2019 1:36 AM PDT Patient Name: Jade JOSÉ of | | : 1970 Performing Physician: Ian Dao | | INDICATIONS s | | ob CONCLUSIONS 1. Sinus rhythm.2. A 2-dimensional transthoracic echocardiogram | | with m-mode, spectral and color flow Doppler was perfomed.3. This was a technically | | difficult study with suboptimal views.4. Overall left ventricular systolic function is | | normal with, an EF between 60 - 65 %.5. Left Ventricle ejection fraction by m-mode | | measures {EF(Teich)}.6. No regional wall motion abnormalities.7. The diastolic filling | | pattern is normal for the age of the patient.8. The RV was not well visualized.9. The | | left atrial size is normal.10. , and the LA measures 3.9cm.11. The right atrium was not | | well visualized.12. The aortic valve is trileaflet and appears structurally normal.13. | | There is no evidence of aortic regurgitation.14. The mitral valve is normal.15. The | | tricuspid valve appears structurally normal.16. Mild tricuspid regurgitation present.17. | | There is mild pulmonary hypertension.18. The right ventricular systolic pressure | | (pulmonary artery systolic pressure), as measured by Doppler, is 37 + 10 = 47mmHg.19. | | The pulmonic valve was not well visualized.20. There is no pericardial effusion.21. No | | mass [id number]. Poor visualization. Definity was used to opacify the left ventricular | | chamber and improve delineation of the endocardial border. FINDINGS--------ECG rhythm: | | Sinus rhythm.Study: A 2-dimensional transthoracic echocardiogram with m-mode, spectral | | and color flow Doppler was perfomed.Study: This was a technically difficult study with | | suboptimal views.Left Ventricle: Overall left ventricular systolic function is normal | | with, an EF between 60 - 65 %.Left Ventricle: Left Ventricle ejection fraction by m-mode | | measures {EF(Teich)}.Left Ventricle: No regional wall motion abnormalities.Left | | Ventricle: The diastolic filling pattern is normal for the age of the patient.Right | | Ventricle: The RV was not well visualized.Left Atrium: The left atrial size is | | normalLeft Atrium: , and the LA measures 3.9cm.Right Atrium: The right atrium was not | | well visualized.Aortic Valve: The aortic valve is trileaflet and appears structurally | | normal.Aortic Valve: There is no evidence of aortic regurgitation.Mitral Valve: The | | mitral valve is normal.Tricuspid Valve: The tricuspid valve appears structurally | | normal.Tricuspid Valve: Mild tricuspid regurgitation present.Tricuspid Valve: There is | | mild pulmonary hypertension.Tricuspid Valve: The right ventricular systolic pressure | | (pulmonary artery systolic pressure), as measured by Doppler, is 37 + 10 = | | 47mmHg.Pulmonic Valve: The pulmonic valve was not well visualized.Pericardium: There is | | no pericardial effusion.Mass: No mass visualizedContrast: Poor visualization. Definity | | was used to opacify the left ventricular chamber and improve delineation of the | | endocardial border. MEASUREMENTS LVOT Diam: 1.95 cmAo Diam: 3.31 cmAV | | Cusp: 2.10 cmLA Diam: 3.89 cmLA/Ao: 1.17D-E Excursion: 2.10 cmE-F [place]: 0.02 | | m/sHR: 87.25 BPMAV maxP.83 mmHgAV meanP.28 mmHgAV Vmax: 1.72 m/Edwin | | Vmean: 1.17 m/Edwin VTI: 35.57 cmAVA Vmax: 2.60 cm2AVA (VTI): 2.36 oz1YCDE Dopp: | | 2.39 [id number] Dopp: 6.42 l/minHR: 76.55 BPMLVOT maxP.90 mmHgLVOT meanPG: | | 4.59 mmHgLVSI Dopp: 31.33 ml/m2LVSV Dopp: 83.97 mlLVOT Vmax: 1.49 m/sLVOT Vmean: | | 0.99 m/sLVOT VTI: 28.00 cmMV A Gregg: 1.23 m/sMV DecT: 301.45 msMV E Gregg: 1.36 | | m/sMV E/A Ratio: 1.10MV PHT: 89.09 msMVA By PHT: 2.46 cm2MV A Dur: 170.05 | | msSeptal e': 0.06 m/sSeptal E/e': 22.61Lateral e': 0.07 m/sLateral E/e': | | 18.96HR: 87.25 BPMPV maxP.99 mmHgPV meanP.60 mmHgPV Vmax: 1.65 m/sPV | | Vmean: 1.10 m/sPV VTI: 32.33 cmTR maxP.47 mmHgTR Vmax: 3.06 m/sTV A Gregg: | | 0.73 m/sTV Dec [place]: 4.62 m/s2TV Dec Time: 217.99 msTV E Gregg: 1.00 m/sTV E/A | | Ratio: 1.36 Bending Frame Operator: CMAuthenticated by: Ian Dao MDReport Date/Time: | | 11-18-2013 17:21:28 IMPRESSION: 1. Sinus rhythm.2. A 2-dimensional transthoracic | | echocardiogram with m-mode, spectral and color flow Doppler was perfomed.3. This was a | | technically difficult study with suboptimal views.4. Overall left ventricular systolic | | function is normal with, an EF between 60 - 65 %.5. Left Ventricle ejection fraction by | | m-mode measures {EF(Teich)}.6. No regional wall motion abnormalities.7. The diastolic | | filling pattern is normal for the age of the patient.8. The RV was not well | | visualized.9. The left atrial size is normal.10. , and the LA measures 3.9cm.11. The | | right atrium was not well visualized.12. The aortic valve is trileaflet and appears | | structurally normal.13. There is no evidence of aortic regurgitation.14. The mitral | | valve is normal.15. The tricuspid valve appears structurally normal.16. Mild tricuspid | | regurgitation present.17. There is mild pulmonary hypertension.18. The right ventricular | | systolic pressure (pulmonary artery systolic pressure), as measured by Doppler, is 37 + | | 10 = 47mmHg.19. The pulmonic valve was not well visualized.20. There is no pericardial | | effusion.21. No mass [id number]. Poor visualization. Definity was used to opacify the | | left ventricular chamber and improve delineation of the endocardial border. | | | |LVOT Diam: 1.95 cm | |Ao Diam: 3.31 cm | |AV Cusp: 2.10 cm | |LA Diam: 3.89 cm | |LA/Ao: 1.17 | |D-E Excursion: 2.10 cm | |E-F [place]uma: 0.02 m/s | |HR: 87.25 BPM | |AV maxP.83 mmHg | |AV meanP.28 mmHg | |AV Vmax: 1.72 m/s | |AV Vmean: 1.17 m/s | |AV VTI: 35.57 cm | |MIKHAIL Vmax: 2.60 cm2 | |MIKHAIL (VTI): 2.36 cm2 | |LVCI Dopp: 2.39 l/minm2 | |LVCO Dopp: 6.42 l/min | |HR: 76.55 BPM | |LVOT maxP.90 mmHg | |LVOT meanP.59 mmHg | |LVSI Dopp: 31.33 ml/m2 | |LVSV Dopp: 83.97 ml | |LVOT Vmax: 1.49 m/s | |LVOT Vmean: 0.99 m/s | |LVOT VTI: 28.00 cm | |MV A Gregg: 1.23 m/s | |MV DecT: 301.45 ms | |MV E Gregg: 1.36 m/s | |MV E/A Ratio: 1.10 | |MV PHT: 89.09 ms | |MVA By PHT: 2.46 cm2 | |MV A Dur: 170.05 ms | |Septal e': 0.06 m/s | |Septal E/e': 22.61 | |Lateral e': 0.07 m/s | |Lateral E/e': 18.96 | |HR: 87.25 BPM | |PV maxP.99 mmHg | |PV meanP.60 mmHg | |PV Vmax: 1.65 m/s | |PV Vmean: 1.10 m/s | |PV VTI: 32.33 cm | |TR maxP.47 mmHg | |TR Vmax: 3.06 m/s | |TV A Gregg: 0.73 m/s | |TV Dec [place]: 4.62 m/s2 | |TV Dec Time: 217.99 ms | |TV E Gregg: 1.00 m/s | |TV E/A Ratio: 1.36 | | | |Bending Frame Operator: CM | |Authenticated by: Ian Dao MD | |Report Date/Time: 11-18-2013 17:21:28 | | | |IMPRESSION: | |1. Sinus rhythm. | |2. A 2-dimensional transthoracic echocardiogram with m-mode, spectral and color flow Dopple r was perfomed. | |3. This was a technically difficult study with suboptimal views. | |4. Overall left ventricular systolic function is normal with, an EF between 60 - 65 %. | |5. Left Ventricle ejection fraction by m-mode measures {EF(Teich)}. | |6. No regional wall motion abnormalities. | |7. The diastolic filling pattern is normal for the age of the patient. | |8. The RV was not well visualized. | |9. The left atrial size is normal. | |10. , and the LA measures 3.9cm. | |11. The right atrium was not well visualized. | |12. The aortic valve is trileaflet and appears structurally normal. | |13. There is no evidence of aortic regurgitation. | |14. The mitral valve is normal. | |15. The tricuspid valve appears structurally normal. | |16. Mild tricuspid regurgitation present. | |17. There is mild pulmonary hypertension. | |18. The right ventricular systolic pressure (pulmonary artery systolic pressure), as measur ed by Doppler, is 37 + 10 = 47mmHg. | |19. The pulmonic valve was not well visualized. | |20. There is no pericardial effusion. | |21. No mass visualized | |22. Poor visualization. Definity was used to opacify the left ventricular chamber and impro ve delineation of the endocardial border. | + + Urinalysis, Reflex Microscopic and/or Culture (11/17/2013 8:17 AM PDT) + + + + + + | Component | Value | Ref Range | Performed | Pathologist | | | | | At | Signature | + + + + + + | Color | YELLOWComment: Testing | | EXTERNAL | | | | performed at [facility], [address] | | LAB | | | | [address] | | | | | | [place] [address] | | | | + + + + + + | Clarity | CLEARComment: Testing | | EXTERNAL | | | | performed at [facility], [address] | | LAB | | | | [address], | | | | | | [place] [address] | | | | + + + + + + | Specific | 1.017Comment: Testing | 1.002 - 1.030 | EXTERNAL | | | [place] | performed at [facility], [address] | | LAB | | | | [address], | | | | | | [place] [address] | | | | + + + + + + | Leukocyte | NEGATIVEComment: Testing | | EXTERNAL | | | [place], | performed at [facility], [address] | | LAB | | | [address] | [address], | | | | | | [place] [address] | | | | + + + + + + | Nitrite, | NEGATIVEComment: Testing | | EXTERNAL | | | Urine | performed at [facility], [address] | | LAB | | | | [address], | | | | | | [place] [address] | | | | + + + + + + | Urobilinoge | 0.2Comment: Testing | mg/dL | EXTERNAL | | | n, Urine | performed at [facility], [address] | | LAB | | | [address], | | | | | | [place] [address] | | | | + + + + + + | Protein, | >300 (A)Comment: Testing | mg/dL | EXTERNAL | | | Urine | performed at [facility], [address] | | LAB | | | | [address], | | | | | | [place] [address] | | | | + + + + + + | pH, Urine | 6.5Comment: Testing | 5.0 - 8.0 | EXTERNAL | | | | performed at [facility], [address] | | LAB | | | [address], | | | | | | [place] [address] | | | | + + + + + + | Blood, | TRACE (A)Comment: | | EXTERNAL | | | Urine | Testing performed at | | LAB | | | | [facility], [address] | | | | | | [place], [place] | | | | | | [address] | | | | + + + + + + | Ketones | NEGATIVEComment: Testing | mg/dL | EXTERNAL | | | | performed at [facility], [address] | | LAB | | | | [address], | | | | | | [place] [address] | | | | + + + + + + | Bilirubin, | NEGATIVEComment: Testing | | EXTERNAL | | | Urine | performed at [facility], [address] | | LAB | | | | [address], | | | | | | [place] [address] | | | | + + + + + + | Glucose, | NEGATIVEComment: Testing | mg/dL | EXTERNAL | | | Urine | performed at [facility], [address] | | LAB | | | | [address], | | | | | | [place] [address] | | | | + + + + + + + + | Specimen | + + | Urine specimen | | (specimen) | + + + +---------+ + + | Performing | Address | City/State/Zipcode | Phone Number | | Organization | | | | + +---------+ + + | EXTERNAL LAB | | | | + +---------+ + + CK-MB (11/17/2013 6:42 AM PDT) + + + + + -+ | Component | Value | Ref Range | Performed | Pathologist | | | | | At | Signature | + + + + + -+ | CK-MB | 1.4Comment: Testing | 0.5 - 3.6 ng/mL | EXTERNAL | | | | performed at [facility] | | LAB | | | | [facility];[place], [place] | | | | | | [address] | | | | + + + + + -+ | CK-MB Index | 1.5Comment: CK INDEX | | EXTERNAL | | | | INTERPRETATION: | | LAB | | | | MMB ng/mL | | | | | | | | | | | |CK INDEX INTERPRETATION: | | | | | | MMB ng/mL | | | | | | | | | | + + + + + -+ + + | Specimen | + + | | + + + +---------+ + + | Performing | Address | City/State/Zipcode | Phone Number | | Organization | | | | + +---------+ + + | EXTERNAL LAB | | | | + +---------+ + + Troponin I (11/17/2013 6:42 AM PDT) + + + + + + | Component | Value | Ref Range | Performed | Pathologist | | | | | At | Signature | + + + + + + | Troponin I, | <0.020Comment: 0.00 to | 0.00 - 0.10 | EXTERNAL | | | Qual | 0.10 CONSISTENT WITH | ng/mL | LAB | | | | NORMAL POPULATION0.11 | | | | | | to 0.60 CONSISTENT | | | | | | WITH INCREASED RISK FOR | | | | | | ADVERSE OUTCOMES> 0.60 | | | | | | CONSISTENT | | | | | | WITH WHO CRITERIA FOR | | | | | | ACUTE [place] Testing | | | | | | performed at [facility] | | | | | | [facility];[place], [place] | | | | | | [address] | | | | + + + [...] + +---------+ + + External Lab: CBC (11/17/2013 6:42 AM PDT) + + + + + + | Component | Value | Ref Range | Performed | Pathologist | | | | | At | Signature | + + + + + + | WBC | 8.1Comment: Testing | 3.8 - 11.0 K/uL | EXTERNAL | | | | performed at [facility];[address] | | LAB | | | | [address];[place] | | | | | | [address] | | | | + + + + + + | RED CELL | 4.43Comment: Testing | 3.70 - 5.10 | EXTERNAL | | | COUNT | performed at [facility];[address] | M/uL | LAB | | | | [address];[place] | | | | | | [address] | | | | + + + + + + | Hgb | 14.0Comment: Testing | 11.3 - 15.5 | EXTERNAL | | | | performed at [facility];[address] | g/dL | LAB | | | | [address];[place] | | | | | | [address] | | | | + + + + + + | Hematocrit, | 42.6Comment: Testing | 34.0 - 46.0 % | EXTERNAL | | | POC | performed at [facility];[address] | | LAB | | | | [address];[place] | | | | | | [address] | | | | + + + + + + | MCV | 96.3Comment: Testing | 80.0 - 100.0 fl | EXTERNAL | | | | performed at [facility];[address] | | LAB | | | | [address];[place] | | | | | | [address] | | | | + + + + + + | MCH | 31.7Comment: Testing | 27.0 - 34.0 pg | EXTERNAL | | | | performed at [facility];[address] | | LAB | | | | [address];[place] | | | | | | [address] | | | | + + + + + + | MCHC | 32.9Comment: Testing | 32.0 - 35.5 | EXTERNAL | | | | performed at [facility];[address] | g/dL | LAB | | | | [address];[place] | | | | | | [address] | | | | + + + + + + | RDW-CV | 54.3 (H)Comment: Testing | 37 - 53 fl | EXTERNAL | | | | performed at [facility] | | LAB | | | | [address];[place] | | | | | | [address] | | | | + + + + + + | Platelet | 261Comment: Testing | 150 - 400 K/uL | EXTERNAL | | | Count | performed at [facility] | | LAB | | | Plasma | [address];[place] | | | | | | [address] | | | | + + + + + + | MPV | 7.7Comment: Testing | fl | EXTERNAL | | | | performed at [facility];[address] | | LAB | | | | [address];[place] | | | | | | [address] | | | | + + + + + + | Differentia | AUTOMATEDComment: | | EXTERNAL | | | l Type | Testing performed at | | LAB | | | | [facility];[place] [address] | | | | + + + + + + | % Segmented | 88.7Comment: Testing | % | EXTERNAL | | | | performed at [facility] | | LAB | | | Neutrophils | [address];[place] | | | | | | [address] | | | | + + + + + + | % | 11.0Comment: Testing | % | EXTERNAL | | | Lymphocytes | performed at [facility];[address] | | LAB | | | | [address];[place] | | | | | | [address] | | | | + + + + + + | % Monocytes | 0.2Comment: Testing | % | EXTERNAL | | | | performed at [facility];[address] | | LAB | | | | [address];[place] | | | | | | [address] | | | | + + + + + + | % | 0.0Comment: Testing | % | EXTERNAL | | | Eosinophils | performed at [facility];[address] | | LAB | | | | [address];[place] | | | | | | [address] | | | | + + + + + + | % Basophils | 0.1Comment: Testing | % | EXTERNAL | | | | performed at [facility];[address] | | LAB | | | | [address];[place] | | | | | | [address] | | | | + + + + + + | Absolute | 7.2Comment: Testing | 1.9 - 7.4 K/uL | EXTERNAL | | | Segmented | performed at [facility];[address] | | LAB | | | Neutrophils | [address];[place] | | | | | | [address] | | | | + + + + + + | Absolute | 0.9 (L)Comment: Testing | 1.0 - 3.9 K/uL | EXTERNAL | | | Lymphocytes | performed at [facility];[address] | | LAB | | | | [address];[place] | | | | | | [address] | | | | + + + + + + | Absolute | 0.0Comment: Testing | 0 - 0.8 K/uL | EXTERNAL | | | Monocytes | performed at [facility];[address] | | LAB | | | | [address];[place] | | | | | | [address] | | | | + + + + + + | Absolute | 0.0Comment: Testing | 0 - 0.5 K/uL | EXTERNAL | | | Eosinophils | performed at [facility];[address] | | LAB | | | | [address];[place] | | | | | | [address] | | | | + + + + + + | Absolute | 0.0Comment: Testing | 0 - 0.1 K/uL | EXTERNAL | | | Basophils | performed at [facility];[address] | | LAB | | | | [address];[place] | | | | | | [address] | | | | + + + + + + | Platelet | ADEQUATEComment: Testing | | EXTERNAL | | | Estimate | performed at [facility];[address] | | LAB | | | | [address];[place] | | | | | | [address] | | | | + + + + + + | Differentia | SLIDE SCANNED, AGREES | | EXTERNAL | | | l Comments | WITH AUTOMATED | | LAB | | | | RESULTS.Comment: Testing | | | | | | performed at [facility];[address] | | | | | | [address];[place] | | | | | | [address] | | | | + + + + + + | RBC | RBC AND PLT MORPHOLOGY | | EXTERNAL | | | Morphology | APPEAR NORMALComment: | | LAB | | | | Testing performed at | | | | | | [facility];[address] [place] [address] | | | | | | [facility];[place] [address] | | | | + + + + + + + + | Specimen | + + | Blood specimen | | (specimen) | + + + +---------+ + + | Performing | Address | City/State/Zipcode | Phone Number | | Organization | | | | + +---------+ + + | EXTERNAL LAB | | | | + +---------+ + + C-Reactive Protein (11/17/2013 6:42 AM PDT) + + + + + + | Component | Value | Ref Range | Performed | Pathologist | | | | | At | Signature | + + + + + + | CRP | 4.2 (H)Comment: Testing | mg/dL | EXTERNAL | | | | performed at [facility], [address] | | LAB | | | | [address], | | | | | | [place] [address] | | | | + + + + + + + + | Specimen | + + | Blood specimen | | (specimen) | + + + +---------+ + + | Performing | Address | City/State/Zipcode | Phone Number | | Organization | | | | + +---------+ + + | EXTERNAL LAB | | | | + +---------+ + + Phosphorus (11/17/2013 6:42 AM PDT) + + + + + + | Component | Value | Ref Range | Performed | Pathologist | | | | | At | Signature | + + + + + + | PHOSPHORUS | 3.6Comment: Testing | 2.3 - 4.8 mg/dL | EXTERNAL | | | | performed at [facility], [address] | | LAB | | | | [address], | | | | | | [place] [address] | | | | + + + + + + + + | Specimen | + + | Blood specimen | | (specimen) | + + + +---------+ + + | Performing | Address | City/State/Zipcode | Phone Number | | Organization | | | | + +---------+ + + | EXTERNAL LAB | | | | + +---------+ + + Magnesium (11/17/2013 6:42 AM PDT) + + + + + + | Component | Value | Ref Range | Performed | Pathologist | | | | | At | Signature | + + + + + + | Magnesium | 1.8Comment: Testing | 1.7 - 2.4 mg/dL | EXTERNAL | | | | performed at [facility], [address] | | LAB | | | | [address], | | | | | | [place] [address] | | | | + + + + + + + + | Specimen | + + | Blood specimen | | (specimen) | + + + +---------+ + + | Performing | Address | City/State/Zipcode | Phone Number | | Organization | | | | + +---------+ + + | EXTERNAL LAB | | | | + +---------+ + + Hemoglobin A1C (11/17/2013 6:42 AM PDT) + + + + + + | Component | Value | Ref Range | Performed | Pathologist | | | | | At | Signature | + + + + + + | Hemoglobin | 5.5Comment: The [place] | 4.0 - 6.0 % | EXTERNAL | | | A1c | Diabetes Association | | LAB | | | | considers a hemoglobin | | | | | | A1c result of <7.0% to | | | | | | be the goal of diabetic | | | | | | therapy. When results | | | | | | are consistently >8.0%, | | | | | | the ADA suggests | | | | | | reevaluation of the | | | | | | treatment regimen. The | | | | | | testing method used is | | | | | | certified traceable to | | | | | | the Diabetes Control and | | | | | | Complications Trial | | | | | | reference method.Testing | | | | | | performed at [facility], [address] | [address], | | | | | | [place] [address] | | | | + + + + + + | Glycohemogl | 111Comment: The ADA | mg/dL | EXTERNAL | | | obin | considers an eAG result | | LAB | | | (GHb),Total | of LT 154 mg/dL to be | | | | | | the goal of diabetic | | | | | | therapy. Estimated | | | | | | Average Glucose | | | | | | calculated from | | | | | | hemoglobin A1c by use of | | | | | | the ADA recommended | | | | | | formula.Testing | | | | | | performed at [facility], [address] | | | | | | [address], | | | | | | [place] [address] | | | | + + + + + + + + | Specimen | + + | Blood specimen | | (specimen) | + + + +---------+ + + | Performing | Address | City/State/Zipcode | Phone Number | | Organization | | | | + +---------+ + + | EXTERNAL LAB | | | | + +---------+ + + CK Total (11/17/2013 6:42 AM PDT) + + + + + + | Component | Value | Ref Range | Performed | Pathologist | | | | | At | Signature | + + + + + + | CK, Total | 94Comment: Testing | 30 - 240 U/L | EXTERNAL | | | | performed at [facility];[address] | | LAB | | | | [address];[place], [place] | | | | | | [address] | | | | + + + + + + + + | Specimen | + + | Blood specimen | | (specimen) | + + + +---------+ + + | Performing | Address | City/State/Zipcode | Phone Number | | Organization | | | | + +---------+ + + | EXTERNAL LAB | | | | + +---------+ + + Comprehensive Metabolic Panel (11/17/2013 6:42 AM PDT) + + + + + + | Component | Value | Ref Range | Performed | Pathologist | | | | | At | Signature | + + + + + + | Na | 139Comment: Testing | 135 - 143 | EXTERNAL | | | | performed at [facility];[address] | mmol/L | LAB | | | | [address];[place] | | | | | | [address] | | | | + + + + + + | K | 4.0Comment: Testing | 3.5 - 4.9 | EXTERNAL | | | | performed at [facility];[address] | mmol/L | LAB | | | | [address];[place] | | | | | | [address] | | | | + + + + + + | Cl | 99Comment: Testing | 99 - 109 mmol/L | EXTERNAL | | | | performed at [facility];[address] | | LAB | | | | [address];[place] | | | | | | [address] | | | | + + + + + + | CO2 | 33 (H)Comment: Testing | 23 - 32 mmol/L | EXTERNAL | | | | performed at [facility];[address] | | LAB | | | | [address];[place] | | | | | | [address] | | | | + + + + + + | Anion Gap | 11Comment: Testing | 5 - 20 mmol/L | EXTERNAL | | | | performed at [facility];[address] | | LAB | | | | [address];[place] | | | | | | [address] | | | | + + + + + + | Glucose, | 177 (H)Comment: Testing | 65 - 99 mg/dL | EXTERNAL | | | Fasting | performed at [facility];[address] | | LAB | | | | [address];[place] | | | | | | [address] | | | | + + + + + + | BUN | 10Comment: Testing | 8 - 25 mg/dL | EXTERNAL | | | | performed at [facility];[address] | | LAB | | | | [address];[place] | | | | | | [address] | | | | + + + + + + | Creatinine | 0.55Comment: Testing | 0.50 - 1.00 | EXTERNAL | | | | performed at [facility];[address] | mg/dL | LAB | | | | [address];[place] | | | | | | [address] | | | | + + + + + + | BUN/Creatin | 19Comment: Testing | | EXTERNAL | | | ine Ratio | performed at [facility];[address] | | LAB | | | | [address];[place] | | | | | | [address] | | | | + + + + + + | Calcium | 8.9Comment: Testing | 8.5 - 10.2 | EXTERNAL | | | | performed at [facility];[address] | mg/dL | LAB | | | | [address];[place] | | | | | | [address] | | | | + + + + + + | Protein, | 7.0Comment: Testing | 6.3 - 8.2 g/dL | EXTERNAL | | | Total | performed at [facility];[address] | | LAB | | | | [address];[place] | | | | | | [address] | | | | + + + + + + | Albumin | 3.3 (L)Comment: Testing | 3.6 - 5.0 g/dL | EXTERNAL | | | | performed at [facility];[address] | | LAB | | | | [address];[place] | | | | | | [address] | | | | + + + + + + | Globulin | 3.7Comment: Testing | 1.3 - 4.9 g/dL | EXTERNAL | | | | performed at [facility];[address] | | LAB | | | | [address];[place] | | | | | | [address] | | | | + + + + + + | A/G Ratio | 0.9 (L)Comment: Testing | 1.0 - 2.4 | EXTERNAL | | | | performed at [facility];[address] | | LAB | | | | [address];[place] | | | | | | [address] | | | | + + + + + + | Bilirubin | 0.3Comment: Testing | 0.1 - 1.5 mg/dL | EXTERNAL | | | Total | performed at [facility];[address] | | LAB | | | | [address];[place] | | | | | | [address] | | | | + + + + + + | ALP, | 87Comment: Testing | 35 - 115 U/L | EXTERNAL | | | External | performed at [facility];[address] | | LAB | | | | [address];[place] | | | | | | [address] | | | | + + + + + + | AST | 15Comment: Testing | 10 - 45 U/L | EXTERNAL | | | | performed at [facility];[address] | | LAB | | | | [address];[place] | | | | | | [address] | | | | + + + + + + | ALT | 27Comment: Testing | 10 - 65 U/L | EXTERNAL | | | | performed at [facility];[address] | | LAB | | | | [address];[place] | | | | | | [address] | | | | + + + [...] BY | | | | | | 1.210.Testing performed | | | | | | at [facility];[address];[place] [address] | | | | + + + + + + + + | Specimen | + + | Blood specimen | | (specimen) | + + + +---------+ + + | Performing | Address | City/State/Zipcode | Phone Number | | Organization | | | | + +---------+ + + | EXTERNAL LAB | | | | + +---------+ + + XR Chest 2 Vws (11/16/2013 5:12 AM PDT) + + | Specimen | + + | | + + + + + | Narrative | Performed At | + + + | This is a non-reportable procedure without a radiologist report and | | | is used for image storage only | | + + + + + | Procedure Note | + + | Tommy Gloria - 01/15/2019 1:36 AM PDT This is a non-reportable procedure | | without a radiologist report and isused for image storage only | + + XR Chest 1 Vw (01/24/2013 5:12 AM PDT) + + | Specimen | + + | | + + + + + | Narrative | Performed At | + + + | This is a non-reportable procedure without a radiologist report and | | | is used for image storage only | | + + + + + | Procedure Note | + + | Tommy Gloria Conversion - 01/15/2019 1:36 AM PDT This is a non-reportable procedure | | without a radiologist report and isused for image storage only | + + documented in this encounter Visit Diagnoses + + | Diagnosis | + + | Acute asthma exacerbation Unspecified asthma, with exacerbation | + + | ANNABEL on CPAP Obstructive sleep apnea (adult) (pediatric) | + + | Hypoxia Hypoxemia | + + | BMI greater than 40 Reserved for inherently not codable concepts WITHOUT codable | | children | + + | Atypical pneumonia Pneumonia, organism unspecified | + + | Acute exacerbation of COPD with asthma (HCC) Chronic obstructive asthma with | | exacerbation | + + | Bacterial pneumonia Bacterial pneumonia, unspecified | + + | CO2 retention Acidosis | + + | Essential hypertension, benign | + + | Morbid obesity (HCC) Morbid obesity | + + documented in this encounter
--- OUTSIDE RECORDS SUMMARY | ~2019-06-14 | XMS | Encounter Summary ---
Demographics + + + | Address | [address] | | | [place] [address] | + + + | Home Phone [...] | + + +---------+ + | L[place] | ECON | Unknown | | + + +---------+ + Care Team Providers + +------+ + | Care Kettle Operator Name | Role | Phone | + +------+ + | Iqra Peralta MD | PCP | | + +------+ + Reason for Visit + + + | Reason | Comments | + + + | Update from Patient | | + + + Encounter Details +--------+ + + + + | Date | Type | Department | Care Team | Description | +--------+ + + + + | 10/05/ | Telephone | [facility] | [facility] | Update from Patient | | 2019 | | [facility] | [place], [address] | | | | | [facility] | [place], [place] | | | | | [address] [place] | [address] | | | | | Mailcode: [id number] | [phone] | | | | | [facility] | | | | | | [facility] Healing, | | | | | | | | | | | | [place], [place] | | | | | | [address] | | | | | | [phone] | | | +--------+ + + + [...]
--- OUTSIDE RECORDS SUMMARY | ~2019-06-14 | XMS | Encounter Summary ---
Demographics + + + | Address | [address] | | | [place] [address] | + + + | Home Phone | | + + + | Preferred Language | Unknown | + + + | Marital Status | Single | + + + | Rastafari Affiliation | Unknown | + + + | Race | Unknown | + + + | Ethnic Group | Unknown | + + + Author + + + | Author | [facility] | | | and [place] | + + + | Organization | [facility] | | | [...] Team Providers + +------+ + | Care Part Time Receptionist Name | Role | Phone | + +------+ + | Iqra Peralta MD | PCP | | + +------+ + Encounter Details +--------+ + + + + | Date | Type | Department | Care Team | Description | +--------+ + + + + | 01/04/ | Abstract | [facility] | Anita Lu, | | | 2017 | | NEPHROLOGY [address] | | | | | [address] | [address] [place] | | | | | [place] | [place] [address] | | | | | [address] | [phone] | | | | | [phone] | | | +--------+ + + + [...] | Pulmonology | Adolfo Zazueta, | | 2019 | Visit | | MD Jac JOHNSON | | | | | | [place] | | | | | | [id number] | | | | | | | | +--------+---------+ + + + | 01/18/ | Office | Sleep Medicine | Jermaine Fairchild | | 2019 | Visit | | MD Jac Sousa [place] | | | | | | [place] | | | | | | [place] [address] | | | | | | [phone] | | | | | | | | +--------+---------+ + + + documented as of this encounter Procedures + +--------+ + + + | Procedure Name | Priori | Date/Time | Associated Diagnosis | Comments | | | ty | | | | + +--------+ + + + | EXTERNAL LAB: | Routin | 10/21/2017 | | Results for this | | VITAMIN D, | e | | | procedure are in the | | 25-HYDROXY | | | | results section. | + +--------+ + + + | EXTERNAL LAB: IRON | Routin | 10/21/2017 | | Results for this | | TOTAL | e | | | procedure are in the | | | | | | results section. | + +--------+ + + + | EXTERNAL LAB: IRON | Routin | 10/21/2017 | | Results for this | | SATURATION | e | | | procedure are in the | | | | | | results section. | + +--------+ + + + | EXTERNAL LAB: IRON | Routin | 10/21/2017 | | Results for this | | BINDING CAPACITY | e | | | procedure are in the | | | | | | results section. | + +--------+ + + + | EXTERNAL LAB: | Routin | 10/21/2017 | | Results for this | | FERRITIN | e | | | procedure are in the | | | | | | results section. | + +--------+ + + + | EXTERNAL LAB: CBC | Routin | 10/21/2017 | | Results for this | | | e | | | procedure are in the | | | | | | results section. | + +--------+ + + + | EXTERNAL LAB: | Routin | 10/21/2017 | | Results for this | | TRIGLYCERIDES | e | | | procedure are in the | | | | | | results section. | + +--------+ + + + | EXTERNAL LAB: | Routin | 10/21/2017 | | Results for this | | CHOLESTEROL, HDL | e | | | procedure are in the | | | | | | results section. | + +--------+ + + + | EXTERNAL LAB: | Routin | 10/21/2017 | | Results for this | | CHOLESTEROL, TOTAL | e | | | procedure are in the | | | | | | results section. | + +--------+ + + + | EXTERNAL LAB: | Routin | 10/21/2017 | | Results for this | | CHOLESTEROL, LDL | e | | | procedure are in the | | | | | | results section. | + +--------+ + + + | EXTERNAL LAB: | Routin | 10/21/2017 | | Results for this | | MICROALBUMIN/CREATIN | e | | | procedure are in the | | INE RATIO, URINE | | | | results section. | + +--------+ + + + | EXTERNAL LAB: BUN | Routin | 06/06/2017 | | Results for this | | | e | | | procedure are in the | | | | | | results section. | + +--------+ + + + | EXTERNAL LAB: | Routin | 06/06/2017 | | Results for this | | GLUCOSE | e | | | procedure are in the | | | | | | results section. | + +--------+ + + + | EXTERNAL LAB: ALT | Routin | 06/06/2017 | | Results for this | | | e | | | procedure are in the | | | | | | results section. | + +--------+ + + + | EXTERNAL LAB: AST | Routin | 06/06/2017 | | Results for this | | | e | | | procedure are in the | | | | | | results section. | + +--------+ + + + | EXTERNAL LAB: | Routin | 06/06/2017 | | Results for this | | ALKALINE PHOSPHATASE | e | | | procedure are in the | | | | | | results section. | + +--------+ + + + | EXTERNAL LAB: | Routin | 06/06/2017 | | Results for this | | BILIRUBIN, TOTAL | e | | | procedure are in the | | | | | | results section. | + +--------+ + + + | EXTERNAL LAB: | Routin | 06/06/2017 | | Results for this | | ALBUMIN | e | | | procedure are in the | | | | | | results section. | + +--------+ + + + | EXTERNAL LAB: | Routin | 06/06/2017 | | Results for this | | PROTEIN, TOTAL | e | | | procedure are in the | | | | | | results section. | + +--------+ + + + | EXTERNAL LAB: | Routin | 06/06/2017 | | Results for this | | CALCIUM | e | | | procedure are in the | | | | | | results section. | + +--------+ + + + | EXTERNAL LAB: CARBON | Routin | 06/06/2017 | | Results for this | | DIOXIDE | e | | | procedure are in the | | | | | | results section. | + +--------+ + + + | EXTERNAL LAB: | Routin | 06/06/2017 | | Results for this | | CHLORIDE | e | | | procedure are in the | | | | | | results section. | + +--------+ + + + | EXTERNAL LAB: | Routin | 06/06/2017 | | Results for this | | POTASSIUM | e | | | procedure are in the | | | | | | results section. | + +--------+ + + + | EXTERNAL LAB: SODIUM | Routin | 06/06/2017 | | Results for this | | | e | | | procedure are in the | | | | | | results section. | + +--------+ + + + | EXTERNAL LAB: CBC | Routin | 06/06/2017 | | Results for this | | | e | | | procedure are in the | | | | | | results section. | + +--------+ + + + | EXTERNAL LAB: EGFR | Routin | 06/06/2017 | | Results for this | | | e | | | procedure are in the | | | | | | results section. | + +--------+ + + + | EXTERNAL LAB: | Routin | 06/06/2017 | | Results for this | | CREATININE | e | | | procedure are in the | | | | | | results section. | + +--------+ + + + | EXTERNAL LAB: HORTENCIA | Routin | 10/01/2016 | | Results for this | | | e | | | procedure are in the | | | | | | results section. | + +--------+ + + + | EXTERNAL LAB: | Routin | 10/01/2016 | | Results for this | | GLUCOSE | e | | | procedure are in the | | | | | | results section. | + +--------+ + + + | EXTERNAL LAB: ALT | Routin | 10/01/2016 | | Results for this | | | e | | | procedure are in the | | | | | | results section. | + +--------+ + + + | EXTERNAL LAB: AST | Routin | 10/01/2016 | | Results for this | | | e | | | procedure are in the | | | | | | results section. | + +--------+ + + + | EXTERNAL LAB: | Routin | 10/01/2016 | | Results for this | | ALKALINE PHOSPHATASE | e | | | procedure are in the | | | | | | results section. | + +--------+ + + + | EXTERNAL LAB: | Routin | 10/01/2016 | | Results for this | | BILIRUBIN, TOTAL | e | | | procedure are in the | | | | | | results section. | + +--------+ + + + | EXTERNAL LAB: | Routin | 10/01/2016 | | Results for this | | ALBUMIN | e | | | procedure are in the | | | | | | results section. | + +--------+ + + + | EXTERNAL LAB: | Routin | 10/01/2016 | | Results for this | | PROTEIN, TOTAL | e | | | procedure are in the | | | | | | results section. | + +--------+ + + + | EXTERNAL LAB: | Routin | 10/01/2016 | | Results for this | | CALCIUM | e | | | procedure are in the | | | | | | results section. | + +--------+ + + + | EXTERNAL LAB: CARBON | Routin | 10/01/2016 | | Results for this | | DIOXIDE | e | | | procedure are in the | | | | | | results section. | + +--------+ + + + | EXTERNAL LAB: | Routin | 10/01/2016 | | Results for this | | CHLORIDE | e | | | procedure are in the | | | | | | results section. | + +--------+ + + + | EXTERNAL LAB: | Routin | 10/01/2016 | | Results for this | | POTASSIUM | e | | | procedure are in the | | | | | | results section. | + +--------+ + + + | EXTERNAL LAB: SODIUM | Routin | 10/01/2016 | | Results for this | | | e | | | procedure are in the | | | | | | results section. | + +--------+ + + + | EXTERNAL LAB: EGFR | Routin | 10/01/2016 | | Results for this | | | e | | | procedure are in the | | | | | | results section. | + +--------+ + + + | EXTERNAL LAB: | Routin | 10/01/2016 | | Results for this | | CREATININE | e | | | procedure are in the | | | | | | results section. | + +--------+ + + + | HEMOGLOBIN A1C | Routin | 10/01/2016 | | Results for this | | | e | | | procedure are in the | | | | | | results section. | + +--------+ + + + | EXTERNAL LAB: HORTENCIA | Routin | 08/07/2016 | | Results for this | | | e | | | procedure are in the | | | | | | results section. | + +--------+ + + + | EXTERNAL LAB: | Routin | 08/07/2016 | | Results for this | | GLUCOSE | e | | | procedure are in the | | | | | | results section. | + +--------+ + + + | EXTERNAL LAB: KHANG | Routin | 08/07/2016 | | Results for this | | | e | | | procedure are in the | | | | | | results section. | + +--------+ + + + | EXTERNAL LAB: RICHARD | Routin | 08/07/2016 | | Results for this | | | e | | | procedure are in the | | | | | | results section. | + +--------+ + + + | EXTERNAL LAB: | Routin | 08/07/2016 | | Results for this | | ALKALINE PHOSPHATASE | e | | | procedure are in the | | | | | | results section. | + +--------+ + + + | EXTERNAL LAB: | Routin | 08/07/2016 | | Results for this | | BILIRUBIN, TOTAL | e | | | procedure are in the | | | | | | results section. | + +--------+ + + + | EXTERNAL LAB: | Routin | 08/07/2016 | | Results for this | | ALBUMIN | e | | | procedure are in the | | | | | | results section. | + +--------+ + + + | EXTERNAL LAB: | Routin | 08/07/2016 | | Results for this | | PROTEIN, TOTAL | e | | | procedure are in the | | | | | | results section. | + +--------+ + + + | EXTERNAL LAB: | Routin | 08/07/2016 | | Results for this | | CALCIUM | e | | | procedure are in the | | | | | | results section. | + +--------+ + + + | EXTERNAL LAB: CARBON | Routin | 08/07/2016 | | Results for this | | DIOXIDE | e | | | procedure are in the | | | | | | results section. | + +--------+ + + + | EXTERNAL LAB: | Routin | 08/07/2016 | | Results for this | | CHLORIDE | e | | | procedure are in the | | | | | | results section. | + +--------+ + + + | EXTERNAL LAB: | Routin | 08/07/2016 | | Results for this | | POTASSIUM | e | | | procedure are in the | | | | | | results section. | + +--------+ + + + | EXTERNAL LAB: SODIUM | Routin | 08/07/2016 | | Results for this | | | e | | | procedure are in the | | | | | | results section. | + +--------+ + + + | EXTERNAL LAB: SHERIDAN | Routin | 08/07/2016 | | Results for this | | | e | | | procedure are in the | | | | | | results section. | + +--------+ + + + | EXTERNAL LAB: EGFR | Routin | 08/07/2016 | | Results for this | | | e | | | procedure are in the | | | | | | results section. | + +--------+ + + + | EXTERNAL LAB: | Routin | 08/07/2016 | | Results for this | | CREATININE | e | | | procedure are in the | | | | | | results section. | + +--------+ + + + | EXTERNAL LAB: BUN | Routin | 12/04/2015 | | Results for this | | | e | | | procedure are in the | | | | | | results section. | + +--------+ + + + | EXTERNAL LAB: | Routin | 12/04/2015 | | Results for this | | GLUCOSE | e | | | procedure are in the | | | | | | results section. | + +--------+ + + + | EXTERNAL LAB: | Routin | 12/04/2015 | | Results for this | | CALCIUM | e | | | procedure are in the | | | | | | results section. | + +--------+ + + + | EXTERNAL LAB: CARBON | Routin | 12/04/2015 | | Results for this | | DIOXIDE | e | | | procedure are in the | | | | | | results section. | + +--------+ + + + | EXTERNAL LAB: | Routin | 12/04/2015 | | Results for this | | CHLORIDE | e | | | procedure are in the | | | | | | results section. | + +--------+ + + + | EXTERNAL LAB: | Routin | 12/04/2015 | | Results for this | | POTASSIUM | e | | | procedure are in the | | | | | | results section. | + +--------+ + + + | EXTERNAL LAB: SODIUM | Routin | 12/04/2015 | | Results for this | | | e | | | procedure are in the | | | | | | results section. | + +--------+ + + + | EXTERNAL LAB: CBC | Routin | 12/04/2015 | | Results for this | | | e | | | procedure are in the | | | | | | results section. | + +--------+ + + + | EXTERNAL LAB: NADEGE | Routin | 12/04/2015 | | Results for this | | | e | | | procedure are in the | | | | | | results section. | + +--------+ + + + | EXTERNAL LAB: | Routin | 12/04/2015 | | Results for this | | CREATININE | e | | | procedure are in the | | | | | | results section. | + +--------+ + + + documented in this encounter Results External Lab: Vitamin D, 25-Hydroxy (10/21/2017) + +-------+ + + + | Component | Value | Ref Range | Performed | Pathologist | | | | | At | Signature | + +-------+ + + + | Vitamin D, | 37 | | | | | 25-Hydroxy, | | | | | | External | | | | | + +-------+ + + + + + | Specimen | + + | Blood | + + External Lab: Iron Total (10/21/2017) + +-------+ + + + | Component | Value | Ref Range | Performed | Pathologist | | | | | At | Signature | + +-------+ + + + | Iron, | 36.52 | | | | | External | | | | | + +-------+ + + + External Lab: Iron Saturation (10/21/2017) + +-------+ + + + | Component | Value | Ref Range | Performed | Pathologist | | | | | At | Signature | + +-------+ + + + | Iron | 8 | | | | | Saturation, | | | | | | External | | | | | + +-------+ + + + External Lab: Iron Binding Capacity (10/21/2017) + +-------+ + + + | Component | Value | Ref Range | Performed | Pathologist | | | | | At | Signature | + +-------+ + + + | Iron | 455 | | | | | Binding | | | | | | Capacity, | | | | | | External | | | | | + +-------+ + + + External Lab: Ferritin (10/21/2017) + +-------+ + + + | Component | Value | Ref Range | Performed | Pathologist | | | | | At | Signature | + +-------+ + + + | Ferritin, | 54.59 | | | | | External | | | | | + +-------+ + + + External Lab: CBC (10/21/2017) + +-------+ + + + | Component | Value | Ref Range | Performed | Pathologist | | | | | At | Signature | + +-------+ + + + | WBC, | 9.6 | | | | | External | | | | | + +-------+ + + + | HGB, | 13.1 | | | | | External | | | | | + +-------+ + + + | HCT, | 39.1 | | | | | External | | | | | + +-------+ + + + | PLT, | 394 | | | | | External | | | | | + +-------+ + + + | RBC, | 4.33 | | | | | External | | | | | + +-------+ + + + | MCV, | 90 | | | | | External | | | | | + +-------+ + + + | RDW, | 15.8 | | | | | External | | | | | + +-------+ + + + External Lab: Triglycerides (10/21/2017) + +-------+ + + + | Component | Value | Ref Range | Performed | Pathologist | | | | | At | Signature | + +-------+ + + + | Triglycerid | 127 | | | | | es, | | | | | | External | | | | | + +-------+ + + + + + | Specimen | + + | Blood | + + External Lab: Cholesterol, HDL (10/21/2017) + +-------+ + + + | Component | Value | Ref Range | Performed | Pathologist | | | | | At | Signature | + +-------+ + + + | HDL | 55 | mg/dl | | | | Cholesterol | | | | | | , External | | | | | + +-------+ + + + + + | Specimen | + + | Blood | + + External Lab: Cholesterol, Total (10/21/2017) + +-------+ + + + | Component | Value | Ref Range | Performed | Pathologist | | | | | At | Signature | + +-------+ + + + | Cholesterol | 157 | mg/dl | | | | , Total, | | | | | | External | | | | | + +-------+ + + + + + | Specimen | + + | Blood | + + External Lab: Cholesterol, LDL (10/21/2017) + +-------+ + + + | Component | Value | Ref Range | Performed | Pathologist | | | | | At | Signature | + +-------+ + + + | LDL | 77 | | | | | Cholesterol | | | | | | , Direct, | | | | | | External | | | | | + +-------+ + + + + + | Specimen | + + | Blood | + + External Lab: Microalbumin/Creatinine Ratio, Urine (10/21/2017) + +-------+ + + + | Component | Value | Ref Range | Performed | Pathologist | | | | | At | Signature | + +-------+ + + + | Microalbumi | 1,696 | | | | | n/Creatinin | | | | | | e Ratio, | | | | | | External | | | | | + +-------+ + + + + + | Specimen | + + | Blood | + + External Lab: BUN (06/06/2017) + +-------+ + + + | Component | Value | Ref Range | Performed | Pathologist | | | | | At | Signature | + +-------+ + + + | BUN, | 11 | | | | | External | | | | | + +-------+ + + + External Lab: Glucose (06/06/2017) + +-------+ + + + | Component | Value | Ref Range | Performed | Pathologist | | | | | At | Signature | + +-------+ + + + | Glucose, | 143 | | | | | External | | | | | + +-------+ + + + External Lab: ALT (06/06/2017) + +-------+ + + + | Component | Value | Ref Range | Performed | Pathologist | | | | | At | Signature | + +-------+ + + + | ALT, | 13 | | | | | External | | | | | + +-------+ + + + External Lab: AST (06/06/2017) + +-------+ + + + | Component | Value | Ref Range | Performed | Pathologist | | | | | At | Signature | + +-------+ + + + | AST, | 14 | | | | | External | | | | | + +-------+ + + + External Lab: Alkaline Phosphatase (06/06/2017) + +-------+ + + + | Component | Value | Ref Range | Performed | Pathologist | | | | | At | Signature | + +-------+ + + + | ALP, | 83 | | | | | External | | | | | + +-------+ + + + External Lab: Bilirubin, Total (06/06/2017) + +-------+ + + + | Component | Value | Ref Range | Performed | Pathologist | | | | | At | Signature | + +-------+ + + + | Bilirubin, | 0.5 | | | | | Total, | | | | | | External | | | | | + +-------+ + + + External Lab: Albumin (06/06/2017) + +-------+ + + + | Component | Value | Ref Range | Performed | Pathologist | | | | | At | Signature | + +-------+ + + + | Albumin, | 3.6 | | | | | External | | | | | + +-------+ + + + External Lab: Protein, Total (06/06/2017) + +-------+ + + + | Component | Value | Ref Range | Performed | Pathologist | | | | | At | Signature | + +-------+ + + + | Protein, | 6.7 | | | | | Total, | | | | | | External | | | | | + +-------+ + + + External Lab: Calcium (06/06/2017) + +-------+ + + + | Component | Value | Ref Range | Performed | Pathologist | | | | | At | Signature | + +-------+ + + + | Calcium, | 9.4 | | | | | External | | | | | + +-------+ + + + External Lab: Carbon Dioxide (06/06/2017) + +-------+ + + + | Component | Value | Ref Range | Performed | Pathologist | | | | | At | Signature | + +-------+ + + + | Carbon | 30 | | | | | Dioxide, | | | | | | External | | | | | + +-------+ + + + External Lab: Chloride (06/06/2017) + +-------+ + + + | Component | Value | Ref Range | Performed | Pathologist | | | | | At | Signature | + +-------+ + + + | Chloride, | 97 | | | | | External | | | | | + +-------+ + + + External Lab: Potassium (06/06/2017) + +-------+ + + + | Component | Value | Ref Range | Performed | Pathologist | | | | | At | Signature | + +-------+ + + + | Potassium, | 4.2 | | | | | External | | | | | + +-------+ + + + External Lab: Sodium (06/06/2017) + +-------+ + + + | Component | Value | Ref Range | Performed | Pathologist | | | | | At | Signature | + +-------+ + + + | Sodium, | 136 | | | | | External | | | | | + +-------+ + + + External Lab: CBC (06/06/2017) + +-------+ + + + | Component | Value | Ref Range | Performed | Pathologist | | | | | At | Signature | + +-------+ + + + | WBC, | 8.7 | | | | | External | | | | | + +-------+ + + + | HGB, | 14.3 | | | | | External | | | | | + +-------+ + + + | HCT, | 43 | | | | | External | | | | | + +-------+ + + + | PLT, | 362 | | | | | External | | | | | + +-------+ + + + | RBC, | 4.81 | | | | | External | | | | | + +-------+ + + + | MCV, | 89 | | | | | External | | | | | + +-------+ + + + | RDW, | 15 | | | | | External | | | | | + +-------+ + + + External Lab: eGFR (06/06/2017) + +-------+ + + + | Component | Value | Ref Range | Performed | Pathologist | | | | | At | Signature | + +-------+ + + + | eGFR, | 105 | | | | | External | | | | | + +-------+ + + + + + | Specimen | + + | Blood | + + External Lab: Creatinine (06/06/2017) + +-------+ + + + | Component | Value | Ref Range | Performed | Pathologist | | | | | At | Signature | + +-------+ + + + | Creatinine, | 0.61 | | | | | External | | | | | + +-------+ + + + + + | Specimen | + + | Blood | + + Hemoglobin A1C (10/01/2016) + +-------+ + + + | Component | Value | Ref Range | Performed | Pathologist | | | | | At | Signature | + +-------+ + + + | Hemoglobin | 7.0 | % | | | | A1c | | | | | + +-------+ + + + + + | Specimen | + + | Blood | + + External Lab: BUN (10/01/2016) + +-------+ + + + | Component | Value | Ref Range | Performed | Pathologist | | | | | At | Signature | + +-------+ + + + | BUN, | 13 | | | | | External | | | | | + +-------+ + + + External Lab: Glucose (10/01/2016) + +-------+ + + + | Component | Value | Ref Range | Performed | Pathologist | | | | | At | Signature | + +-------+ + + + | Glucose, | 135 | | | | | External | | | | | + +-------+ + + + External Lab: ALT (10/01/2016) + +-------+ + + + | Component | Value | Ref Range | Performed | Pathologist | | | | | At | Signature | + +-------+ + + + | ALT, | 17 | | | | | External | | | | | + +-------+ + + + External Lab: AST (10/01/2016) + +-------+ + + + | Component | Value | Ref Range | Performed | Pathologist | | | | | At | Signature | + +-------+ + + + | AST, | 12 | | | | | External | | | | | + +-------+ + + + External Lab: Alkaline Phosphatase (10/01/2016) + +-------+ + + + | Component | Value | Ref Range | Performed | Pathologist | | | | | At | Signature | + +-------+ + + + | ALP, | 86 | | | | | External | | | | | + +-------+ + + + External Lab: Bilirubin, Total (10/01/2016) + +-------+ + + + | Component | Value | Ref Range | Performed | Pathologist | | | | | At | Signature | + +-------+ + + + | Bilirubin, | 0.5 | | | | | Total, | | | | | | External | | | | | + +-------+ + + + External Lab: Albumin (10/01/2016) + +-------+ + + + | Component | Value | Ref Range | Performed | Pathologist | | | | | At | Signature | + +-------+ + + + | Albumin, | 3.2 | | | | | External | | | | | + +-------+ + + + External Lab: Protein, Total (10/01/2016) + +-------+ + + + | Component | Value | Ref Range | Performed | Pathologist | | | | | At | Signature | + +-------+ + + + | Protein, | 5.9 | | | | | Total, | | | | | | External | | | | | + +-------+ + + + External Lab: Calcium (10/01/2016) + +-------+ + + + | Component | Value | Ref Range | Performed | Pathologist | | | | | At | Signature | + +-------+ + + + | Calcium, | 9.1 | | | | | External | | | | | + +-------+ + + + External Lab: Carbon Dioxide (10/01/2016) + +-------+ + + + | Component | Value | Ref Range | Performed | Pathologist | | | | | At | Signature | + +-------+ + + + | Carbon | 30 | | | | | Dioxide, | | | | | | External | | | | | + +-------+ + + + External Lab: Chloride (10/01/2016) + +-------+ + + + | Component | Value | Ref Range | Performed | Pathologist | | | | | At | Signature | + +-------+ + + + | Chloride, | 97 | | | | | External | | | | | + +-------+ + + + External Lab: Potassium (10/01/2016) + +-------+ + + + | Component | Value | Ref Range | Performed | Pathologist | | | | | At | Signature | + +-------+ + + + | Potassium, | 4.4 | | | | | External | | | | | + +-------+ + + + External Lab: Sodium (10/01/2016) + +-------+ + + + | Component | Value | Ref Range | Performed | Pathologist | | | | | At | Signature | + +-------+ + + + | Sodium, | 138 | | | | | External | | | | | + +-------+ + + + External Lab: eGFR (10/01/2016) + +-------+ + + + | Component | Value | Ref Range | Performed | Pathologist | | | | | At | Signature | + +-------+ + + + | eGFR, | >120 | | | | | External | | | | | + +-------+ + + + + + | Specimen | + + | Blood | + + External Lab: Creatinine (10/01/2016) + +-------+ + + + | Component | Value | Ref Range | Performed | Pathologist | | | | | At | Signature | + +-------+ + + + | Creatinine, | 0.47 | | | | | External | | | | | + +-------+ + + + + + | Specimen | + + | Blood | + + External Lab: BUN (08/07/2016) + +-------+ + + + | Component | Value | Ref Range | Performed | Pathologist | | | | | At | Signature | + +-------+ + + + | BUN, | 13 | | | | | External | | | | | + +-------+ + + + External Lab: Glucose (08/07/2016) + +-------+ + + + | Component | Value | Ref Range | Performed | Pathologist | | | | | At | Signature | + +-------+ + + + | Glucose, | 135 | | | | | External | | | | | + +-------+ + + + External Lab: ALT (08/07/2016) + +-------+ + + + | Component | Value | Ref Range | Performed | Pathologist | | | | | At | Signature | + +-------+ + + + | ALT, | 17 | | | | | External | | | | | + +-------+ + + + External Lab: AST (08/07/2016) + +-------+ + + + | Component | Value | Ref Range | Performed | Pathologist | | | | | At | Signature | + +-------+ + + + | AST, | 13 | | | | | External | | | | | + +-------+ + + + External Lab: Alkaline Phosphatase (08/07/2016) + +-------+ + + + | Component | Value | Ref Range | Performed | Pathologist | | | | | At | Signature | + +-------+ + + + | ALP, | 94 | | | | | External | | | | | + +-------+ + + + External Lab: Bilirubin, Total (08/07/2016) + +-------+ + + + | Component | Value | Ref Range | Performed | Pathologist | | | | | At | Signature | + +-------+ + + + | Bilirubin, | 0.3 | | | | | Total, | | | | | | External | | | | | + +-------+ + + + External Lab: Albumin (08/07/2016) + +-------+ + + + | Component | Value | Ref Range | Performed | Pathologist | | | | | At | Signature | + +-------+ + + + | Albumin, | 3.4 | | | | | External | | | | | + +-------+ + + + External Lab: Protein, Total (08/07/2016) + +-------+ + + + | Component | Value | Ref Range | Performed | Pathologist | | | | | At | Signature | + +-------+ + + + | Protein, | 6.7 | | | | | Total, | | | | | | External | | | | | + +-------+ + + + External Lab: Calcium (08/07/2016) + +-------+ + + + | Component | Value | Ref Range | Performed | Pathologist | | | | | At | Signature | + +-------+ + + + | Calcium, | 9.1 | | | | | External | | | | | + +-------+ + + + External Lab: Carbon Dioxide (08/07/2016) + +-------+ + + + | Component | Value | Ref Range | Performed | Pathologist | | | | | At | Signature | + +-------+ + + + | Carbon | 35 | | | | | Dioxide, | | | | | | External | | | | | + +-------+ + + + External Lab: Chloride (08/07/2016) + +-------+ + + + | Component | Value | Ref Range | Performed | Pathologist | | | | | At | Signature | + +-------+ + + + | Chloride, | 97 | | | | | External | | | | | + +-------+ + + + External Lab: Potassium (08/07/2016) + +-------+ + + + | Component | Value | Ref Range | Performed | Pathologist | | | | | At | Signature | + +-------+ + + + | Potassium, | 4.2 | | | | | External | | | | | + +-------+ + + + External Lab: Sodium (08/07/2016) + +-------+ + + + | Component | Value | Ref Range | Performed | Pathologist | | | | | At | Signature | + +-------+ + + + | Sodium, | 136 | | | | | External | | | | | + +-------+ + + + External Lab: CBC (08/07/2016) + +-------+ + + + | Component | Value | Ref Range | Performed | Pathologist | | | | | At | Signature | + +-------+ + + + | WBC, | 10.9 | | | | | External | | | | | + +-------+ + + + | HGB, | 14.7 | | | | | External | | | | | + +-------+ + + + | HCT, | 45.6 | | | | | External | | | | | + +-------+ + + + | PLT, | 291 | | | | | External | | | | | + +-------+ + + + | RBC, | 4.9 | | | | | External | | | | | + +-------+ + + + | MCV, | 93 | | | | | External | | | | | + +-------+ + + + | RDW, | 15 | | | | | External | | | | | + +-------+ + + + External Lab: eGFR (08/07/2016) + +-------+ + + + | Component | Value | Ref Range | Performed | Pathologist | | | | | At | Signature | + +-------+ + + + | eGFR, | 118 | | | | | External | | | | | + +-------+ + + + + + | Specimen | + + | Blood | + + External Lab: Creatinine (08/07/2016) + +-------+ + + + | Component | Value | Ref Range | Performed | Pathologist | | | | | At | Signature | + +-------+ + + + | Creatinine, | 0.55 | | | | | External | | | | | + +-------+ + + + + + | Specimen | + + | Blood | + + External Lab: BUN (12/04/2015) + +-------+ + + + | Component | Value | Ref Range | Performed | Pathologist | | | | | At | Signature | + +-------+ + + + | BUN, | 13 | | | | | External | | | | | + +-------+ + + + External Lab: Glucose (12/04/2015) + +-------+ + + + | Component | Value | Ref Range | Performed | Pathologist | | | | | At | Signature | + +-------+ + + + | Glucose, | 143 | | | | | External | | | | | + +-------+ + + + External Lab: Calcium (12/04/2015) + +-------+ + + + | Component | Value | Ref Range | Performed | Pathologist | | | | | At | Signature | + +-------+ + + + | Calcium, | 9.5 | | | | | External | | | | | + +-------+ + + + External Lab: Carbon Dioxide (12/04/2015) + +-------+ + + + | Component | Value | Ref Range | Performed | Pathologist | | | | | At | Signature | + +-------+ + + + | Carbon | 28 | | | | | Dioxide, | | | | | | External | | | | | + +-------+ + + + External Lab: Chloride (12/04/2015) + +-------+ + + + | Component | Value | Ref Range | Performed | Pathologist | | | | | At | Signature | + +-------+ + + + | Chloride, | 101 | | | | | External | | | | | + +-------+ + + + External Lab: Potassium (12/04/2015) + +-------+ + + + | Component | Value | Ref Range | Performed | Pathologist | | | | | At | Signature | + +-------+ + + + | Potassium, | 4.0 | | | | | External | | | | | + +-------+ + + + External Lab: Sodium (12/04/2015) + +-------+ + + + | Component | Value | Ref Range | Performed | Pathologist | | | | | At | Signature | + +-------+ + + + | Sodium, | 136 | | | | | External | | | | | + +-------+ + + + External Lab: CBC (12/04/2015) + +-------+ + + + | Component | Value | Ref Range | Performed | Pathologist | | | | | At | Signature | + +-------+ + + + | WBC, | 13.2 | | | | | External | | | | | + +-------+ + + + | HGB, | 15.5 | | | | | External | | | | | + +-------+ + + + | HCT, | 46.1 | | | | | External | | | | | + +-------+ + + + | PLT, | 378 | | | | | External | | | | | + +-------+ + + + | RBC, | 4.94 | | | | | External | | | | | + +-------+ + + + | MCV, | 93 | | | | | External | | | | | + +-------+ + + + | RDW, | 13.4 | | | | | External | | | | | + +-------+ + + + External Lab: eGFR (12/04/2015) + +-------+ + + + | Component | Value | Ref Range | Performed | Pathologist | | | | | At | Signature | + +-------+ + + + | eGFR, | >120 | | | | | External | | | | | + +-------+ + + + + + | Specimen | + + | Blood | + + External Lab: Creatinine (12/04/2015) + +-------+ + + + | Component | Value | Ref Range | Performed | Pathologist | | | | | At | Signature | + +-------+ + + + | Creatinine, | 0.54 | | | | | External | | | | | + +-------+ + + + + + | Specimen | + + | Blood | + + documented in this encounter Visit Diagnoses Not on filedocumented in this encounter"
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
--- OUTSIDE RECORDS SUMMARY | ~2019-06-14 | XMS | Encounter Summary ---
Demographics + + + | Address | [address] | | | [place] [address] | + + + | Home Phone | | + + + | Preferred Language | Unknown | + + + | Marital Status | Single | + + + | Mormon Affiliation | Unknown | + + + | Race | Unknown | + + + | Ethnic Group | Unknown | + + + Author + + + | Author | [facility] | | | and [place] | + + + | Organization | [facility] | | | [...] Team Providers + +------+ + | Care Auto Machinist Name | Role | Phone | + +------+ + PCP | Unavailable | + +------+ + Encounter Details +--------+ + + + + | Date | Type | Department | Care Team | Description | +--------+ + + + + | 02/11/ | Abstract | [facility] | [facility] | | | 2011 | | Conversion Location | SR | | | | | [phone] | | | +--------+ + + + [...] + + + | Blood Pressure | 118/72 | 02/09/2012 12:00 AM | | | | | PDT [...] + + + + | Weight | 175.9 kg (387 lb | 02/09/2012 12:00 AM | | | | 11.2 oz) | PDT | | + + + + + | Height | 157.5 cm (5' 2") | 10/02/2011 12:00 AM | | | | | PDT | | + + + + + | Body Mass Index | 70.91 | 10/02/2011 12:00 AM | | | | | PDT | | + + + + + documented in this encounter Plan of Treatment +--------+---------+ + + + | Date | Type | Specialty | Care Team | Description | +--------+---------+ + + + | 06/14/ | Office | Pulmonology | Adolfo Zazueta, | | | 2019 | Visit | | MD Jac JOHNSON | | | | | | [place] | | | | | | [id number] | | | | | | | | +--------+---------+ + + + | 01/18/ | Office | Sleep Medicine | Jermaine Fairchild | | | 2019 | Visit | | MD Lars [address] [place] [address] | | | | | | [address]oberto Seals | | | | | | [place] [address] | | | | | | [phone] | | | | | | | | +--------+---------+ + + + documented as of this encounter Visit Diagnoses Not on filedocumented in this encounter
--- OUTSIDE RECORDS SUMMARY | ~2019-06-14 | XMS | Encounter Summary ---
Demographics + + + | Address | [address] | | | [place] [address] | + + + | Home Phone | | + + + | Preferred Language | Unknown | + + + | Marital Status | Single | + + + | Oriental Orthodox Affiliation | NRP | + + + | Race | White | + + + | Ethnic Group | Not or | + + + Author + + + | Author | [facility] | + + + | Organization | [facility] | + + + | Address [...] | + + +---------+ + | Lana Ellington | ECON | Unknown | | + + +---------+ + Care Team Providers + +------+ + | Care Crude Oil Treater Name | Role | Phone | + +------+ + | Bassam Ross DO | PCP | | + +------+ + Encounter Details +--------+ + + + + | Date | Type | Department | Care Team | Description | +--------+ + + + + | 03/07/ | MyChart | Cardiology | Sheila Loya | RE: lungs | | 2014 | Encounter | Preventive at [facility] | JULIETA Figueroa [address] | | | | | [address] | [address] [place], | | | | | Mailcode: CH9A | [place] [address] | | | | | [facility] | [phone] | | | | | and Healing, | | | | | | [address] | | | | | | [place], [place] | | | | | | [address] | | | | | | [phone] | | | +--------+ + + + [...]
--- OUTSIDE RECORDS SUMMARY | ~2019-06-14 | XMS | Encounter Summary ---
Demographics + + + | Address | [address] | | | [place] [address] | + + + | Home Phone | | + + + | Preferred Language | Unknown | + + + | Marital Status | Single | + + + | Orthodoxy Affiliation | Unknown | + + + | Race | Unknown | + + + | Ethnic Group | Unknown | + + + Author + + + | Author | Located Within [facility] | | | and [place] | + + + | Organization | Located Within [facility] | | [...] Team Providers + +------+ + | Care Blood Bank Laboratory Technologist Name | Role | Phone | + +------+ + | Iqra Peralta MD | PCP | | + +------+ + Reason for Visit +---------+ + | Reason | Comments | +---------+ + | Results | 02/04/19 | +---------+ + Encounter Details +--------+ + + + + | Date | Type | Department | Care Team | Description | +--------+ + + + + | 02/07/ | Documentati | [facility] | Anaya, | Results (02/04/19) | | 2019 | on | NEPHROLOGY JAMES | Anita [facility] | | | | | [address] | Assurance Engineer | | | | | [address] [facility], [place] | | | | | | [address] | | | | | | [phone] | | | +--------+ + + + [...] | 2019 | Visit | | MD Nathan [address] | | | | | | [place] | | | | | | [address] | | | | | | | | +--------+---------+ + + + | 01/18/ | Office | Sleep Medicine | Jermaine Fairchild D | | | 2019 | Visit | | MD Lars [address] | | | | | | [place] | | | | | | [place] [address] | | | | | | [phone] | | | | | | | | +--------+---------+ + + + documented as of this encounter Procedures + +--------+ + + + | Procedure Name | Priori | Date/Time | Associated Diagnosis | Comments | | | ty | | | | + +--------+ + + + | EXTERNAL LAB: | Routin | 02/04/2019 | | Results for this | | HEMOGLOBIN A1C | e | | | procedure are in the | | | | | | results section. | + +--------+ + + + | VITAMIN D, | Routin | 02/04/2019 | | Results for this | | 25-HYDROXY, LC/MS/MS | e | | | procedure are in the | | | | | | results section. | + +--------+ + + + | IRON AND IRON | Routin | 02/04/2019 | | Results for this | | BINDING CAPACITY | e | | | procedure are in the | | | | | | results section. | + +--------+ + + + | LIPID PANEL | Routin | 02/04/2019 | | Results for this | | | e | | | procedure are in the | | | | | | results section. | + +--------+ + + + | CHG URINE ALBUMIN | Routin | 02/04/2019 | | Results for this | | QUANTITATIVE | e | | | procedure are in the | | | | | | results section. | + +--------+ + + + | TSH | Routin | 02/04/2019 | | Results for this | | | e | | | procedure are in the | | | | | | results section. | + +--------+ + + + | COMPREHENSIVE | Routin | 02/04/2019 | | Results for this | | METABOLIC PANEL | e | | | procedure are in the | | | | | | results section. | + +--------+ + + + documented in this encounter Results G URINE ALBUMIN QUANTITATIVE (02/04/2019) + + + + + + | Component | Value | Ref Range | Performed | Pathologist | | | | | At | Signature | + + + + + + | Microalb | 758.0 (A) | 0 - 30 | | | | Creat Ratio | | | | | + + + + + + + + | Specimen | + + | | + + Iron and Iron Binding Capacity (02/04/2019) + +-------+ + + + | Component | Value | Ref Range | Performed | Pathologist | | | | | At | Signature | + +-------+ + + + | Iron, | | | | | | External | | | | | + +-------+ + + + | TIBC | 64 | 37 - 160 ug/dL | | | + +-------+ + + + | Iron | 351 | 245 - 400 % | | | | Saturation | | | | | + +-------+ + + + | Ferritin | 107.7 | 13 - 150 | | | + +-------+ + + + | UIBC | 297 | | | | + +-------+ + + + | TRANSFERRIN | 258.1 | 192.0 - 382.0 | | | | | | mg/dL | | | + +-------+ + + + + + | Specimen | + + | Blood | + + Lipid Panel (02/04/2019) + +---------+ + + + | Component | Value | Ref Range | Performed | Pathologist | | | | | At | Signature | + +---------+ + + + | CHOLESTEROL | 150 | 200 mg/dL | | | | FLUID | | | | | + +---------+ + + + | Triglycerid | 182 (A) | 30 - 150 | | | | es, Fluid | | | | | + +---------+ + + + | HDL | 42 (A) | 40 mg/dl | | | | Cholesterol | | | | | | , External | | | | | + +---------+ + + + | LDL | 72 | 100 | | | | Cholesterol | | | | | | , Direct, | | | | | | External | | | | | + +---------+ + + + | VLDL | 36 | 4 - 40 | | | | (REMNANT | | | | | | LIPO) | | | | | + +---------+ + + + | Chol/HDL | 3.6 | 4.4 | | | | Ratio | | | | | + +---------+ + + + | Non HDL | 108 | 130 | | | | Chol. | | | | | | (LDL+VLDL) | | | | | + +---------+ + + + + + | Specimen | + + | Blood | + + Comprehensive Metabolic Panel (02/04/2019) + +---------+ + + + | Component | Value | Ref Range | Performed | Pathologist | | | | | At | Signature | + +---------+ + + + | Na | 139 | 132 - 143 | | | | | | mmol/L | | | + +---------+ + + + | K | 3.8 | 3.6 - 5.1 | | | | | | mmol/L | | | + +---------+ + + + | Cl | 95 | 95 - 112 mmol/L | | | + +---------+ + + + | CO2 | 30 | 19 - 31 mmol/L | | | + +---------+ + + + | Anion Gap | 18 | 7 - 21 mmol/L | | | + +---------+ + + + | Glucose | 134 (A) | 70 - 100 mg/dL | | | + +---------+ + + + | BUN | 8 | 6 - 23 mg/dL | | | + +---------+ + + + | Creatine, | 0.70 | 0.70 - 1.33 | | | | Serum | | | | | + +---------+ + + + | eGFR if not | 87 | 60 - 140 | | | | | | mL/min/1.73m2 | | | | IRANIAN | | | | | + +---------+ + + + | BUN/Creatin | 11.3 | 6.0 - 28.6 | | | | ine Ratio | | | | | + +---------+ + + + | Calcium | 9.8 | 8.5 - 10.3 | | | + +---------+ + + + | AST | 12 (A) | 13 - 39 U/L | | | + +---------+ + + + | ALT | 12 | 7 - 52 U/L | | | + +---------+ + + + | Alkaline | 119 | 31 - 130 U/L | | | | Phosphatase | | | | | + +---------+ + + + | Bilirubin | 0.4 | 0.0 - 1.2 mg/dL | | | | Total | | | | | + +---------+ + + + | PROTEIN | 6.6 | 6.0 - 8.3 | | | | (CALC) | | mg/24hrs | | | + +---------+ + + + | Albumin | 3.8 | 3.5 - 5.0 g/dL | | | + +---------+ + + + | Globulin | 2.8 | 1.8 - 3.5 | | | + +---------+ + + + | Albumin/Jazmyn | 1.4 | 1.1 - 2.4 | | | | bulin Ratio | | | | | + +---------+ + + + + + | Specimen | + + | Blood | + + External Lab: Hemoglobin A1c (02/04/2019) + +-------+ + + + | Component | Value | Ref Range | Performed | Pathologist | | | | | At | Signature | + +-------+ + + + | Hemoglobin | 6.1 | % | | | | A1c, | | | | | | external | | | | | + +-------+ + + + + + | Specimen | + + | Blood | + + TSH (02/04/2019) + +-------+ + + + | Component | Value | Ref Range | Performed | Pathologist | | | | | At | Signature | + +-------+ + + + | TSH, | 3.25 | 0.270 - 4.20 | | | | External | | | | | + +-------+ + + + + + | Specimen | + + | Blood | + + Vitamin D, 25-Hydroxy, LC/MS/MS (02/04/2019) + +-------+ + + + | Component | Value | Ref Range | Performed | Pathologist | | | | | At | Signature | + +-------+ + + + | Vit D, | 37 | 30 - 100 | | | | 25-Hydroxy | | | | | + +-------+ + + + + + | Specimen | + + | Blood | + + documented in this encounter Visit Diagnoses Not on filedocumented in this encounter"
--- OUTSIDE RECORDS SUMMARY | ~2019-06-14 | XMS | Encounter Summary ---
Demographics + + + | Address | [address] | | | [place] [address] | + + + | Home Phone | | + + + | Preferred Language | Unknown | + + + | Marital Status | Single | + + + | Hindu Affiliation | NRP | + + + | Race | White | + + + | Ethnic Group | Not or | + + + Author + + + | Author | [facility] | + + + | Organization | [facility] | + + + | [...] | + + +---------+ + | Lana Jay | ECON | Unknown | | + + +---------+ + Care Team Providers + +------+ + | Care Bricklayer Helper Name | Role | Phone | + +------+ + | Bassam Ross DO | PCP | | + +------+ + Encounter Details +--------+ + + + + | Date | Type | Department | Care Team | Description | +--------+ + + + + | 09/19/ | Abstract | Digestive Health | Tilgner, Thania F, | | | 2013 | | Center at [facility] [address] | ACNP [address] | | | | | [address] | [place], [place] | | | | | Mailcode: [place] | [address] | | | | | for Health and | | | | | | [facility] [address] | | | | | | [place], [place] | | | | | | [address] | | | | | | | [...]
--- OUTSIDE RECORDS SUMMARY | ~2019-06-14 | XMS | Encounter Summary ---
Demographics + + + | Address | [address] | | | [place] [address] | + + + | Home Phone | | + + + | Preferred Language | Unknown | + + + | Marital Status | Single | + + + | Latter-Day Affiliation | NRP | + + + | Race | White | + + + | Ethnic Group | Not or | + + + Author + + + | Author | [facility] | + + + | Organization | [facility] | + + + | Address [...] Team Providers + +------+ + | Care Jinriksha Driver Name | Role | Phone | + +------+ + | Iqra Peralta MD | PCP | | + +------+ + Encounter Details +--------+ + + + + | Date | Type | Department | Care Team | Description | +--------+ + + + + | 07/16/ | MyChart | Digestive Health | Margot Contreras, JAYJAY | RE:Multivitamin | | 2019 | Encounter | Center at [facility] [address] | [address] | | | | | [address] | [address] [place], | | | | | Mailcode: [place] | [place] [address] | | | | | for Health and | | | | | | Healing, [address] | | | | | | [place], [place] | | | | | | [address] | | | | | | [phone] | | | +--------+ + + + [...]
--- OUTSIDE RECORDS SUMMARY | ~2019-06-14 | XMS | Encounter Summary ---
Demographics + + + | Address | [address] | | | [place] [address] | + + + | Home Phone | | + + + | Preferred Language | Unknown | + + + | Marital Status | Single | + + + | Quaker Affiliation | NRP | + + + [...] Providers + +------+ + | Care Wellness Program Administrator Name | Role | Phone | + +------+ + PCP | Unavailable | + +------+ + Encounter Details +--------+ + + + + | Date | Type | Department | Care Team | Description | +--------+ + + + + | 08/15/ | Results | [facility] | Feliciano Kang, | | | 1998 | Only | [facility] Generalists | [address] | | | | | [address] | [address] | | | | | Loop Mailcode: | [place], [place] | | | | | [address] | [address] | | | | | [address] | | | | | | [place], [place] | | | | | | [address] | | | | | | [phone] | | | +--------+ + + + [...] | + +--------+ + + + | CHEST, 1 VIEW, | Urgent | 08/15/1998 | | Results for this | | PORTABLE | | 6:50 PM | | procedure are in the | | | | PST | | results section. | + +--------+ + + + | SURGICAL PATHOLOGY | Routin | 08/15/1998 | | Results for this | | | e | | | procedure are in the | | | | | | results section. | + +--------+ + + + documented in this encounter Results CHEST, 1 VIEW, PORTABLE (08/15/1998 6:50 PM PST) + + + + + + | Component | Value | Ref Range | Performed | Pathologist | | | | | At | Signature | + + + + + + | CHEST, 1 | Radiologist 1: JOYA, | | | | | BRIA, | Renato ROOT-Radiologist | | | | | PORTABLE | 2: MIKE KRUSE | | | | | | Renato OlivasSINGLE VIEW OF | | | | | | THE CHEST: 08/15/98 at | | | | | | 1850 hours. | | | | | | Dictated: 08/16/98 | | | | | | COMPARISON: There are no | | | | | | prior studies available | | | | | | for comparison. | | | | | | FINDINGS: A right | | | | | | internal jugular central | | | | | | venous catheter | | | | | | terminatesin the | | | | | | superior vena cava. The | | | | | | visualization of chest | | | | | | parenchymalcharacteristi | | | | | | cs is limited secondary | | | | | | to technical factors. | | | | | | Lungvolumes are low. The | | | | | | cardiac silhouette | | | | | | appears mildly | | | | | | enlarged.Motion artifact | | | | | | obscures vascular | | | | | | markings. IMPRESSION: | | | | | | 1. Limited study of | | | | | | the chest secondary to | | | | | | technical factors. 2. | | | | | | Right internal jugular | | | | | | central venous catheter | | | | | | terminating in | | | | | | thesuperior vena cava. | | | | | | END OF IMPRESSION: | | | | + + + + + + + + | Specimen | + + | | + + + +---------+ + + | Performing | Address | City/State/Zipcode | Phone Number | | Organization | | | | + +---------+ + + | [facility] | | | | | RADIOLOGY | | | | + +---------+ + + SURGICAL PATHOLOGY (08/15/1998) + + + + + + | Component | Value | Ref Range | Performed | Pathologist | | | | | At | Signature | + + + + + + | SURGICAL | SOURCE OF SPECIMEN: SEE | | [facility] | | | PATHOLOGY | RESULTS | | DEPARTMENT | | | | Preliminary | | OF | | | | History:CLINICAL HISTORY | | PATHOLOGY | | | | Patient Age: 27 | | | | | | year old 1, | | | | | | para 0 female. | | | | | | Patient History: | | | | | | Intrauterine | | | | | | with | | | | | | preexistinghypertension, | | | | | | nephrotic syndrome and | | | | | | preeclampsia. Patient | | | | | | desiressterilization | | | | | | secondary to maternal | | | | | | health risks. | | | | | | GROSS DESCRIPTION | | | | | | Specimens received: 1 | | | | | | fresh and 2 in formalin. | | | | | | #1 PLACENTA: | | | | | | Received fresh in | | | | | | several red hazard bags | | | | | | is a 270 gram,16.0 x | | | | | | 15.5 x 2.0 cm placenta | | | | | | with an eccentric, 10.5 | | | | | | x 1.2 cm umbilicalcord | | | | | | located 2.5 cm from the | | | | | | nearest placental | | | | | | margin. | | | | | | Sectioningreveals | | | | | | three vessels. No | | | | | | areas of excessive | | | | | | helical twisting | | | | | | orsuspicious hemorrhage | | | | | | are noted. The | | | | | | membranes are torn but | | | | | | arecomplete and are | | | | | | translucent, barakat to | | | | | | focally cloudy, pale | | | | | | yellow. Thefetal | | | | | | surface is glistening, | | | | | | slight arizmendi to purple | | | | | | with focalsubamnionic | | | | | | hemorrhage. The | | | | | | trapped blood is liquid | | | | | | and unremarkable. | | | | | | The maternal aspect is | | | | | | focally torn with | | | | | | numerous rents | | | | | | comprisingapproximately | | | | | | 25% of the area, | | | | | | measuring up to 7.0 cm | | | | | | in length. | | | | | | Thecotyledons appear | | | | | | complete with no | | | | | | adherent blood clot or | | | | | | suspiciousflattened | | | | | | areas. Pale yellow, | | | | | | predominantly peripheral | | | | | | yellow areas | | | | | | ofdiscoloration are | | | | | | noted overlying 10% of | | | | | | the cotyledons. | | | | | | Sectioning reveals the | | | | | | pale yellow areas to | | | | | | correspond to | | | | | | possibleretroplacental | | | | | | infarcts measuring up to | | | | | | 3.0 x 2.5 x 1.0 cm. | | | | | | Also notedis a | | | | | | peripheral, | | | | | | retroplacental, dark | | | | | | purple, hemorrhagic | | | | | | lesionconsistent with a | | | | | | thrombus, measuring 1.5 | | | | | | x 1.5 x 1.0 cm. The | | | | | | remainingparenchyma is | | | | | | spongy, dark purple. | | | | | | #2 RIGHT FALLOPIAN | | | | | | TUBE: The specimen | | | | | | consists of a barakat to | | | | | | pink,serosal-lined, | | | | | | cylindrical segment of | | | | | | soft tissue with lumina | | | | | | at bothends which | | | | | | measures 1.5 cm in | | | | | | length x 0.5? cm in | | | | | | diameter. #3 | | | | | | LEFT FALLOPIAN TUBE: | | | | | | The specimen consists of | | | | | | a barakat to | | | | | | pink,serosal-lined, | | | | | | cylindrical segment of | | | | | | soft tissue with lumina | | | | | | at bothends which | | | | | | measures 1.5 cm in | | | | | | length x 0.5 cm in | | | | | | diameter. | | | | | | The left tube is inked | | | | | | black for identification | | | | | | purposes. | | | | | | Representativesections | | | | | | of each tube are | | | | | | submitted in a single | | | | | | cassette. CASSETTE | | | | | | INDEX:#1 PLACENTA:1A | | | | | | cord and membrane, | | | | | | RS.1B peripheral | | | | | | placenta with infarct, | | | | | | RS.1C central | | | | | | placenta, RS.1D | | | | | | infarcts and thrombus, | | | | | | RS.#2 RIGHT FALLOPIAN | | | | | | TUBE:2 RS.#3 LEFT | | | | | | FALLOPIAN TUBE:3 RS. | | | | | | All tissue | | | | | | sections taken are | | | | | | submitted for | | | | | | microscopic | | | | | | evaluation.JK:AA:TH:tm | | | | | | FINAL DIAGNOSIS#1 | | | | | | PLACENTA: SNOWDEN | | | | | | PLACENTA - SMALL DISC | | | | | | (270 G AT 33 WEEKS | | | | | | GESTATION) - VILLOUS | | | | | | MATURATION CONSISTENT | | | | | | WITH GESTATIONAL AGE OF | | | | | | 33 WEEKS - VILLOUS | | | | | | INFARCT, SMALL (1.5% OF | | | | | | PARENCHYMA) - | | | | | | INTERVILLOUS THROMBOSIS | | | | | | - THREE-VESSEL | | | | | | UMBILICAL CORD AND | | | | | | MEMBRANES WITHIN NORMAL | | | | | | LIMITS#2 RIGHT | | | | | | FALLOPIAN TUBE: | | | | | | COMPLETE CROSS | | | | | | SECTIONS WITH NO | | | | | | DIAGNOSTIC ABNORMALITY#3 | | | | | | LEFT FALLOPIAN TUBE: | | | | | | COMPLETE CROSS | | | | | | SECTIONS WITH NO | | | | | | DIAGNOSTIC ABNORMALITY | | | | | | Case reviewed by: | | | | | | Silvana Herrera M.D.Case | | | | | | staffed by: Rupesh Millard, | | | | | | M.D. /f | | | | | | My electronic signature | | | | | | indicates that I have | | | | | | personally reviewed | | | | | | alldiagnostic slides, | | | | | | the gross and/or | | | | | | microscopic portion of | | | | | | thisreport and | | | | | | formulated the final | | | | | | diagnosis. | | | | + + + + + + + + | Specimen | + + | Other | + + + + + + + | Performing | Address | City/State/Zipcode | Phone Number | | Organization | | | | + + + + + | [facility] | [address] | [place] [address] | | | PATHOLOGY | [address] | | | + + + + + documented in this encounter Visit Diagnoses Not on filedocumented in this encounter"
--- OUTSIDE RECORDS SUMMARY | ~2019-06-14 | XMS | Encounter Summary ---
Demographics + + + | Address | [address] | | | [place] [address] | + + + | Home Phone | | + + + | Preferred Language | Unknown | + + + | Marital Status | Single | + + + | Anabaptist Affiliation | NRP | + + + [...] Team Providers + +------+ + | Care Line Service Technician Name | Role | Phone [...] | | | | | | [facility] [address] | | | | | | | [address] | | | | | | | Mailcode: | | | | | | | [place] for | | | | | | | Health and | | | | | | | Healing, | | | | | | | [address] | | | | | | | [place], [place] | | | | | | | [address] | | | | | | | Phone: | | | | | | | [phone] | | | | | | | Fax: | | | | | | | [phone] | +--------+--------+ + + + + Encounter Details +--------+---------+ + + + | Date | Type | Department | Care Team | Description | +--------+---------+ + + + | 07/09/ | Office | Digestive Health | [address] | Morbid obesity with | | 2019 | Visit | Center at [facility] [address] | [address] | BMI of 60.0-69.9, | | | | [address] | [address] [place], | adult (HCC) (Primary | | | | Mailcode: Center | [place] [address] | Dx); S/P | | | | for Health and | | laparoscopic sleeve | | | | Healing, [address] | | gastrectomy; | | | | [place], [place] | | Diabetes mellitus | | | | [address] | | type 2, | | | | [phone] | | diet-controlled | | | | [...] (395 lb 8 | 07/09/2018 1:05 PM | | | | oz) | PST | | + + + + + | Height | - | - | | + + + + + | Body Mass Index | 70.06 | 02/26/2018 1:01 PM | | | | | PDT | | + + + + + documented in this encounter Progress Notes Margot Contreras, JAYJAY - 07/09/2018 1:00 PM PST Nutrition Counseling: Post-op Bariatric Surgery Follow-Up Patient referred by: DO Jamie Tay S Jessy BACON [facility] [place] [address] Documented time of visit: 1:04 to 1:29 (25 minutes [id number] with patient) Surgery: Sleeve Gastrectomy Date of [...] echo and chest xray findings. Followed by production maintenance mechanic in [place]. Shortness of breath Thyroid disease Food logs: no Food choices: B: [place] Island[place] yogurt ([employer]ik[employer]) and a cup of coffee with Splenda L: Goes to [employer] ([employer]) & has lunch at the [employer] - "whatever they have to off er" [...] - will need to follow up via [facility] with dates and instructions Continue to increase physical activity. Follow up as needed. Margot Contreras RD, [facility], LD [facility] Bariatrics [phone] documented in this enco unter Plan of Treatment Not on filedocumented as of this encounter Procedures + +--------+ + + + | Procedure Name | Priori | Date/Time | Associated Diagnosis | Comments | | | ty | | | | + +--------+ + + + | [facility] MNT RE-ASSESSMNT | Routin | 07/09/2018 | Morbid obesity | | | X15MIN | e | 3:26 PM | with BMI of | | | | | PST | 60.0-69.9, adult | | | | | | ([facility]) S/P | | | | | | laparoscopic sleeve | | | | | | gastrectomy | | | | | | Diabetes mellitus | | | | | | type 2, | | | | | | diet-controlled | | | | | | ([facility]) | | + +--------+ + + + documented in this encounter Visit Diagnoses + + | Diagnosis | + + | Morbid obesity with BMI of 60.0-69.9, adult ([facility]) - Primary | + + | S/P laparoscopic sleeve gastrectomy | + + | Diabetes mellitus type 2, diet-controlled (HCC) Type II or unspecified type diabetes | | mellitus without mention of complication, not stated as uncontrolled | + + documented in this encounter
--- OUTSIDE RECORDS SUMMARY | ~2019-06-14 | XMS | Encounter Summary ---
Demographics + + + | Address | [address] | | | [place] [address] | + + + | Home Phone | | + + + | Preferred Language | Unknown | + + + | Marital Status | Single | + + + | Restorationist Affiliation | NRP | + + + | Race | White | + + + | Ethnic Group | Not or | + + + Author + + + | Author | [facility] | + + + | Organization | [facility] | + + + | [...] | + + +---------+ + | Lana Clothier | ECON | Unknown | | + + +---------+ + Care Team Providers + +------+ + | Care Parking Supervisor Name | Role | Phone | + +------+ + | Bassam Ross DO | PCP | | + +------+ + Encounter Details +--------+ + + + + | Date | Type | Department | Care Team | Description | +--------+ + + + + | 04/10/ | Abstract | Digestive Health | Tilgner, Thania F, | | | 2013 | | Center at [facility] [address] | ACNP [address] | | | | | [address] | [address] [place], [place] | | | | | Mailcode: [place] | [address] | | | | | for Health and | | | | | | [address] [address] | | | | | | [place], [place] | | | | | | [address] | | | | | | | [...]
--- OUTSIDE RECORDS SUMMARY | ~2019-06-14 | XMS | Encounter Summary ---
Demographics + + + | Address | [address] | | | [place] [address] | + + + | Home Phone | | + + + | Preferred Language | Unknown | + + + | Marital Status | Single | + + + | Congregation Affiliation | Unknown | + + + | Race | Unknown | + + + | Ethnic Group | Unknown | + + + Author + + + | Author | [facility] | | | and [place] | + + + | Organization | [facility] | | [...] Team Providers + +------+ + | Care Nuclear Waste Management Engineer Name | Role | Phone | + +------+ + | Iqra Peralta MD | PCP | | + +------+ + Reason for Visit + + + | Reason | Comments | + + + | CPAP Follow Up | | + + + Evaluate & Treat (Routine) +--------+--------+ + + + + | Status | Reason | Specialty | Diagnoses / | Referred By | Referred To | | | | | Procedures | Contact | Contact | +--------+--------+ + + + + | Closed | | Internal | Diagnoses | Fabian, | Gurinder, | | | | Medicine - | Obstructive | Iqra Malcolm MD | Jermaine Byrd | | | | Sleep | sleep apnea | [address] | MD [address] | | | | Medicine / | (adult) | Andrew Vallecillo | Ran Arenas | | | | Sleep | (pediatric) | [place], | [facility] | | | | Medicine | [address] | [place] [address] | [place], [place] | | | | | EQUIP | Phone: | [phone] Phone: | | | | | Procedures | [phone] | [phone] | | | | | OFFICE VISIT | Fax: | Fax: | | | | | EXTENDED | [phone] | [phone] | +--------+--------+ + + + + Encounter Details +--------+---------+ + + + | Date | Type | Department | Care Team | Description | +--------+---------+ + + + | 01/18/ | Office | [facility] | Jermaine Fairchild | ANNABEL (obstructive | | 2019 | Visit | SLEEP DISORDER [address] | MD [address] | sleep apnea) | | | | [address] [place] | [address] [place] | (Primary Dx); | | | | [place] [address] | [place] [address] | Obesity | | | | [phone] | [phone] | hypoventilation | | | | | [...] this encounter Last Filed Vital Signs + +---------+ + + | Vital Sign | Reading | Time Taken | Comments | + +---------+ + + | Blood Pressure | 114/80 | 01/18/2019 10:49 AM | | | | | PDT | | + +---------+ + + | Pulse | 82 | 01/18/2019 10:49 AM | | | | | PDT | | + +---------+ + + | Temperature | - | - | | + +---------+ + + | Respiratory Rate | 16 | 01/18/2019 10:49 AM | | | | | PDT | | + +---------+ + + | Oxygen Saturation | 93% | 01/18/2019 10:49 AM | | | | | PDT | | + +---------+ + + | Inhaled Oxygen | - | - | | | Concentration | | | | + +---------+ + + | Weight | - | - | | + +---------+ + + | Height | - | - | | + +---------+ + + | Body Mass Index | - | - | | + +---------+ + + documented in this encounter Progress Notes Jermaine Fairchild Jr., MD - 01/18/2019 10:45 AM PDTFormatting of this note might be differen t from the original. I first saw this patient in consultation on March 16, 2003 because of possible obstructi ve apnea, restless leg syndrome, probable Central alveolar hypoventilation of obesity. At t hat time she weighed in excess of 500 pounds. Diagnostic nocturnal polysomnography lauren byrd in February 20, 2003 demonstrated a latency to sleep onset was prolonged at 33 minutes. The patient slept for 5.7 hours out of 7.3 hours of study time. The sleep efficiency was lo w at 71.3%. All stages of sleep were noted. The latency to rapid eye movement sleep was pr olonged at 266.5 minutes. Sleep was very fragmented. The arousal index was 47.1. The hear t rate was rapid between 92 and 113 (sinus tachycardia). The Apnea Hypopnea Index was eleva laurel at 22.8. Oxygen desaturation was noted with a stephanie saturation of 70.2%. The periodic limb movement arousal index was also elevated at 22. The patient was suspected of having ob structive sleep apnea, alveolar hypoventilation of obesity, and periodic limb movements of s leep. On March 21, 2003 bilevel positive very pressure titration study was performed. Th e patient was titrated to bilevel positive airway pressure of 16/11 which resulted in an Product Manager Medical Device ea Hypopnea Index index of less than 5. Mild oxygen desaturation (80-90%) was noted. The p eriodic limb movement arousal index was normal at 1.3. The patient was treated with CPAP 16 cm and it was suggested that she consider bariatric surgery for her morbid obesity. The viraj saucedo was very adherent with CPAP therapy. Gastric banding surgery was done which resulted in a weight loss in excess of 200 pounds. She felt that CPAP was too strong and discontinue d it. I reevaluated her in 2007. Diagnostic nocturnal polysomnography performed in August [id number] after 220 weight loss demonstrated a latency to sleep onset was normal at 11 minutes . The sleep efficiency was normal at 92%. All stages of sleep were noted and the latency t o rapid eye movement sleep was normal at 129 minutes. Sleep was quite fragmented with an ar ousal index of 51.6. The Apnea Hypopnea Index was elevated at 29.1. Oxygen desaturation to 77% was noted and the patient spent 30.5 minutes with an oxygen saturation of less than 90% . Periodic limb movement arousal index was also elevated at 17.9. On September 20, 2007 polyso mnographically guided CPAP titration was performed. This indicated that CPAP in the 7-9 cm range would likely control obstructive breathing. Periodic limb movements of sleep were not ed and they do fragmented sleep. CPAP was prescribed at 8 cm. Pramipexole was also prescri bed and the patient did relatively well. By [...] band was removed and she was b eidana considered for gastric bypass surgery. On February [...] 371 pounds. She was recently seen at [facility] in [place] where she was told that no further bariatric surgery could be done. Repeat PSG guided PAP titration was performed on 09/21/2017. This revealed that she required iVAPS: Target Va 4.5, Tgt UT 20; EPAP 11; Max PS 16cm; Min PS 6cm; TiMin 0.8; Rise Time 40 0; Trigger M, Cycle M with oxygen 5 l/min is advised to control ANNABEL and Obesity Hypoventilat ion which was prescribed. It was also suggested that she re-explore the possibility of furth bariatric surgery. She states she now has a new primary care physician Dr. Peralta has arr anged for bariatric consultation to [facility] in [place]. She has worn her Resmed VPAPST-A(iVAPS) for 169 out of the last 179 days. This is set at E PAP of 11 cm, pressure support minimum 6 cm, pressure support maximum 16 cm, and alveolar ve ntilation 4.5 L/minute. She is averaging 5 hours and 48 minutes of use per day. The calcul ated Apnea Hypopnea Index index is 2.8. She wore her other CPAP unit on the 11 days that she didn't wear the iVAPS. She was scheduled to see surgeons at [facility] for bariatric surgery in August but she fell and h ad a severe fracture of her right femur and she was transferred to [facility] for surgery. She hi l has had to cancel the bariatric surgery visit until her leg heals. She next sees her ortho pedic surgeon in another month or so. Past Medical History: has a past medical history of Acid reflux disease, Allergic rhinitis due to pollen, Anemia, Asthma, Asthma, Atrial fibrillation ([facility]), Central alveolar hypovent ilation syndrome, Chronic kidney disease, COPD (chronic obstructive pulmonary disease) ([facility]) , COPD (chronic obstructive pulmonary disease) ([facility]), Cyst of ovary, Depression with anxiety , Diabetes mellitus type 2, diet-controlled ([facility]) (02/15/2015), GROSSMAN (dyspnea on exertion), En dometriosis, Fracture, humeral (2012), Hyperlipidemia, Hypertension, Hypertensive disorder, Hypothyroidism, Insomnia, Joint pain, Lymphedema, Methicillin resistant Staphylococcus aureu s infection, Morbid obesity ([facility]), MRSA (methicillin resistant Staphylococcus aureus) septic emia ([facility]), Murmur, Nephrotic syndrome, Neuromyopathy ([facility]), Obesity, ANNABEL (obstructive sleep apnea) (~2003), Osteoarthritis, Other chronic pain, Periodic limb movement disorder ([facility]), Sleep apnea, Thyroid disease, Type 2 diabetes mellitus ([facility]), Unspecified visual disturbanc e, and Vitamin D deficiency. has a past surgical history that includes section, classic; Tonsillectomy and arcadio noidectomy (1995); gastric banding (2003); take down of gastric banding (2008); Hysterectomy , total abdominal (12/2009); hernia repair (2008); knee surgery (1996); Gallbladder surgery (2007); gastric sleeve (2014); Hysterectomy; Cholecystectomy; Colonoscopy; section; Lap Band; Foot surgery (Left); Tonsillectomy and adenoidectomy; Tubal ligation; other surgi jeannette history (Bilateral); other surgical history (Right); other surgical history (2003); and Dental surgery (03/10/2018). Allergies Allergen Reactions Amoxicillin Hives Clarithromycin Hives and Rash Fluticasone-Salmeterol Hives Gabapentin Hives Phendimetrazine Tartrate Palpitations Other reaction(s): Irregular heart rate Sulfa Antibiotics Rash Sulfamethoxazole-Trimethoprim Hives Other reaction(s): Respiratory distress Phendimetrazine Other (See Comments) Hydrocodone Itching Oxycodone Itching Current Outpatient Medications Medication Sig Dispense Refill albuterol (VENTOLIN HFA) 90 mcg/puff inhaler Inhale 2 puffs into the lungs every 4 hour s as needed for Shortness of Breath. amitriptyline (ELAVIL) 25 mg tablet amitriptyline 25 mg tablet Take 2 tablets every day by oral route at bedtime. amoxicillin-clavulanate (AUGMENTIN) 875-125 mg per tablet take 1 tablet by mouth twice a day for 10 days 0 atorvaSTATin (LIPITOR) 10 mg tablet Take 40 mg by mouth every morning. atorvaSTATin (LIPITOR) 10 mg tablet Take 10 mg by mouth Daily. 1 atorvaSTATin (LIPITOR) 20 mg tablet atorvaSTATin (LIPITOR) 40 mg tablet beclomethasone HFA (QVAR REDIHALER) 80 mcg/puff inhaler Inhale 2 puffs into the lungs 2 times daily. 1 Inhaler 11 Blood Glucose Monitoring Suppl (FREESTYLE LITE) KATERIN 0 buPROPion (WELLBUTRIN XL) 150 mg 24 hr tablet bupropion HCl XL 150 mg 24 hr tablet, ext ended release take 1 tablet by mouth once daily WITH THE WELLBUTRIN XL 300 MG TABLET buPROPion (WELLBUTRIN XL) 150 mg 24 hr tablet take 1 tablet by mouth once daily WITH 30 0 MG TABLET 0 buPROPion (WELLBUTRIN XL) 300 mg 24 hr tablet take 1 tablet by mouth once daily 0 cefadroxil (DURICEF) 500 mg capsule Take 500 mg by mouth Daily. cephalexin (KEFLEX) 250 mg capsule take 1 capsule by mouth every 6 hours 0 cephalexin (KEFLEX) 500 mg capsule take 1 capsule by mouth three times a day START ON 0 diclofenac (VOLTAREN) 1% GEL apply 2 to 4 grams to affected area OF KNEE FOR PAIN four times a day if needed 0 dilTIAZem (TIAZAC) 360 MG 24 hr capsule take 1 capsule by mouth at bedtime 0 doxycycline (ADOXA) 100 MG tablet take 1 tablet by mouth twice a day 0 doxycycline (MONODOX) 100 mg capsule take 1 capsule by mouth twice a day for 10 days 0 empagliflozin (JARDIANCE) 25 mg tablet Take 25 mg by mouth Daily. enoxaparin (LOVENOX) 60 mg/0.6 mL injection ergocalciferol (VITAMIN D-2) 50,000 units capsule Take 50,000 Units by mouth Three time s a week. FEROSUL 325 (65 Fe) MG tablet Take 325 mg by mouth Twice Daily. fluconazole (DIFLUCAN) 100 mg tablet take 1 tablet by mouth once daily 0 fluconazole (DIFLUCAN) 150 mg tablet take 1 tablet by mouth daily 0 FREESTYLE LANCETS MISC 0 FREESTYLE TEST STRIPS strip 0 furosemide (LASIX) 40 mg tablet Take 40 mg by mouth Twice daily as needed for Edema. gabapentin (NEURONTIN) 100 mg capsule Take 100 mg by mouth 3 times daily. HYDROcodone-acetaminophen (NORCO) 5-325 mg per tablet Take 1 tablet by mouth Twice Dilip y. 0 levoFLOXacin (LEVAQUIN) 750 MG tablet levothyroxine (SYNTHROID) 88 mcg tablet Take 88 mcg by mouth Daily. LORazepam (ATIVAN) 0.5 mg tablet Take 0.5 mg by mouth Daily as needed. losartan (COZAAR) 25 mg tablet Take 1 tablet by mouth 2 (two) times daily. losartan (COZAAR) 25 mg tablet Take 25 mg by mouth Daily. 1 metFORMIN (GLUCOPHAGE) 1000 MG tablet take 1 tablet by mouth twice a day 0 metoprolol succinate (TOPROL-XL) 25 mg 24 hr tablet Take 25 mg by mouth daily. NARCAN 4 MG/0.1ML nitrofurantoin (MACROBID) 100 mg capsule NYSTATIN 655744 UNIT/GM powder apply topically to affected area twice a day 0 omeprazole (PRILOSEC) 20 mg capsule Take 20 mg by mouth every morning (before breakfast ). Take one capsule daily 1 ondansetron (ZOFRAN) 4 mg tablet oxyCODONE (ROXICODONE) 5 mg tablet take 1 tablet by mouth every 6 hours if needed 0 pramipexole (MIRAPEX) 1.5 MG tablet Take 1.5 mg by mouth 2 times daily. ULTICARE MICRO PEN NEEDLES 32G X 4 MM [facility] Uncoded Medication Lifelong-99;Obstuctie Sleep Apnea 1 Device 0 UNCODED MEDICATION Convert CPAP to purchase for ANNABEL (327.23) 1 Device 0 UNCODED MEDICATION Wear when sleeping. 1 Device 0 UNCODED MEDICATION Diagnosis: Obstructive Sleep Apnea ICD-9: 327.23 Length of Need: 99 Months 1 Device 0 valACYclovir (VALTREX) 1 g tablet Take 1 g by mouth Daily. VENTOLIN HFA 108 (90 BASE) MCG/ACT inhaler Inhale 2 puffs into the lungs every 4 hours as needed for Wheezing. VICTOZA 18 MG/3ML injection warfarin (COUMADIN) 10 mg tablet warfarin (COUMADIN) 5 mg tablet warfarin 5 mg tablet take 2 tablets by mouth once daily warfarin (COUMADIN) 5 mg tablet 10 mg. Take 7.5mg three days per week and 5mg four days per week or as directed No current facility-administered medications for this visit. Past Surgical History: Procedure Laterality Date SECTION SECTION, CLASSIC CHOLECYSTECTOMY COLONOSCOPY DENTAL SURGERY 03/10/2018 Procedure: DENTAL - EXTRACTIONS - TEETH; Surgeon: Yonatan Gonzalez DDS; Location: [facility] OR; Service: Oral/Maxillofacial; Laterality: N/A; FOOT SURGERY Left GALLBLADDER SURGERY 2007 gastric banding 2003 gastric sleeve 2014 HERNIA REPAIR 2008 HYSTERECTOMY HYSTERECTOMY, TOTAL ABDOMINAL 12/2009 KNEE SURGERY 1996 LAP BAND 2003 OTHER SURGICAL HISTORY Bilateral OOPHORECTOMY OTHER SURGICAL HISTORY Right UNLISTED PROCEDURE ARTHROSCOPY - CLEAN UP KNEE OTHER SURGICAL HISTORY 2003 ABDOMINOPLASTY take down of gastric banding 2008 TONSILLECTOMY AND ADENOIDECTOMY 1995 TONSILLECTOMY AND ADENOIDECTOMY TUBAL LIGATION Immunization History Administered Date(s) Administered INFLUENZA PF 18 Y OR >,TRIVALENT RECOMBINANT 02/21/2013, 03/01/2015 INFLUENZA PF QUAD(PED/ADOL/ADULT),PSKT or VIAL 02/28/2016, 02/19/2017, 03/16/2017 INFLUENZA PF TRIVALENT(PED/ADOL/ADULT), PSKT 03/10/2016, 02/16/2018 INFLUENZA QUADR W/PRES (PED/ADOL/ADULT) MULTIDOSE 02/28/2016 INFLUENZA TRIV W/PRES(PED/ADOL/ADULT),MULTIDOSE 03/20/2008, 02/19/2009, 02/20/2011, , 03/16/2014, 03/06/2015 INFLUENZA, UNSPECIFIED FORMULATION 03/20/2008, 02/19/2009, 02/20/2011, 02/21/2013, 03/01, 03/06/2015 Influenza, Whole 03/08/2001, 03/30/2002 MMR, 2 DOSE (PED/ADULT) 11/25/1996 PNEUMOCOCCAL CONJUGATE 13-VALENT (PCV13) 01/30/2013 PNEUMOCOCCAL POLYSACCHARIDE 23-VALENT (PPSV23) 07/02/2013, 11/18/2013, 02/16/2018 TD PF (2 LF TETANUS) (ADOL/ADULT) 11/25/1996 BP 114/80 | Pulse 82 | Resp 16 | SpO2 93% A: ANNABEL + Obesity Hypoventilation: She is doing well at the present time on iVAPS therapy. As soon as her femur fracture heals and she undergoes physical therapy she will be reevaluat ed by the bariatric surgery department at [facility]. Of course weight loss is the primary treatment for her sleep-related breathing issues. In the meantim e she is to continue on IVAPS therapy as prescribed. P: No change in current positive airway pressure therapy. Follow-up in 1 year. Like to se e her sooner if significant weight loss occurs. Today, 15 minutes was spent face to face with the patient; the majority of time was spent c sharla regarding sleep issues. documented in th is encounter Plan of Treatment +--------+---------+ + + + | Date | Type | Specialty | Care Team | Description | +--------+---------+ + + + | 06/14/ | Office | Pulmonology | Adolfo Zazueta, | | 2019 | Visit | | MD Jac ARENAS | | | | | | [place] | | | | | | [id number] | | | | | | | | +--------+---------+ + + + | 01/18/ | Office | Sleep Medicine | Jermaine Fairchild | | 2019 | Visit | | MD Jac [address] | | | | | | [address] [place] | | | | | | [place] [address] | | | | | | [phone] | | | | | | | | +--------+---------+ + + + documented as of this encounter Visit Diagnoses + + | Diagnosis | + + | ANNABEL (obstructive sleep apnea) - Primary Obstructive sleep apnea (adult) (pediatric) | + + | Obesity hypoventilation syndrome (HCC) Obesity hypoventilation syndrome | + + documented in this encounter"
--- OUTSIDE RECORDS SUMMARY | ~2019-06-14 | XMS | Encounter Summary ---
Demographics + + + | Address | [address] | | | [place] [address] | + + + | Home Phone | | + + + | Preferred Language | Unknown | + + + | Marital Status | Single | + + + | Scientology Affiliation | Unknown | + + + | Race | Unknown | + + + | Ethnic Group | Unknown | + + + Author + + + | Author | [facility] | | | and [place] | + + + | Organization | [facility] | | | [...] Team Providers + +------+ + | Care Molded Rubber Goods Cutter Name | Role | Phone | + +------+ + PCP | Unavailable | + +------+ + Encounter Details +--------+ + + + + | Date | Type | Department | Care Team | Description | +--------+ + + + + | 10/19/ | [facility] | [facility] | Jermaine Fairchild | | | 2011 | Encounter | MED CTR SLEEP | MD Lars [address] | | | | | CENTER [address] | [address] [place] | | | | | [place] | [place] [address] | | | | | [address] | [phone] | | | | | [phone] | | | +--------+ + + + [...] [place] | | | | | | [address] | | | | | | | | +--------+---------+ + + + | 01/18/ | Office | Sleep Medicine | Jermaine Fairchild | | | 2020 | Visit | | MD Lars [address] | | | | | | [place] | | | | | | [place] [address] | | | | | | [phone] | | | | | | | | +--------+---------+ + + + documented as of this encounter Visit Diagnoses Not on filedocumented in this encounter"
--- OUTSIDE RECORDS SUMMARY | ~2019-06-14 | XMS | Encounter Summary ---
Demographics + + + | Address | [address] | | | [place] [address] | + + + | Home Phone [...] + + + | Author | [facility] | + + + | Organization | [facility] | + + + | Address | [...] | + + +---------+ + | [place] | ECON | Unknown | | + + +---------+ + Care Team Providers + +------+ + | Care Dental Practitioner Name | Role | Phone | + +------+ + | Bassam Ross DO | PCP | | + +------+ + Reason for Visit Diagnostic Testing (Routine) +--------+--------+ + + + + | Status | Reason | Specialty | Diagnoses / | Referred By | Referred To | | | | | Procedures | Contact | Contact | +--------+--------+ + + + + | Closed | | Cardiology | Diagnoses | Loya, | Car Echo | | | | | GROSSMAN | Ana, | [facility] [address] | | | | | (dyspnea on | PA-C [address] | | | | | exertion) | [address] | Mailcode: | | | | | Preop | [place], | [id number] [facility] | | | | | cardiovascul | [place] | [facility] | | | | | ar exam | [address] | Building | | | | | Procedures | Phone: | [place], [place] | | | | | STRESS | [phone] | [address] | | | | | DOBUTAMINE | Fax: | Phone: | | | | | ECHOCARDIOGR | [phone] | [phone] | | | | | AM, ADULT | | | +--------+--------+ + + + + Encounter Details +--------+ + + + + | Date | Type | Department | Care Team | Description | +--------+ + + + + | 08/07/ | Hospital | Cardiology - | | | | 2014 | Encounter | Non-Invasive Testing | | | | | | in [facility] | | | | | | [facility] at | | | | | | [place] [address] | | | [address] | | | | | | [place] | | | | | | [address] | | | | | | [phone] | | | +--------+ + + + [...] + + + + | Weight | 190.1 kg (419 lb) | 08/07/2014 11:15 AM | | | | | PDT | | + + + + + | Height | 154.9 cm (5' 1") | 08/07/2014 11:15 AM | | | | | PDT | | + + + + + | Body Mass Index | 79.17 | 08/07/2014 11:15 AM | | | | | PDT | | + + + + + documented in this encounter Progress Notes Ismael Pendleton RN - 08/07/2014 2:38 PM PDTDobutamine stress echocardiogram completed, r eport to follow. IV removed, catheter intact. Patient released from echo lab at 1307(enter time). Ang Urena - 08/07/2014 1:04 PM PDTDobutamine stress echocardiogram completed. Final report to juanpablo carias. documented in this enc ounter Plan of Treatment Not on filedocumented as of this encounter Procedures + +--------+ + + + | Procedure Name | Priori | Date/Time | Associated Diagnosis | Comments | | | ty | | | | + +--------+ + + + | STRESS DOBUTAMINE | Routin | 08/07/2014 | GROSSMAN (dyspnea on | Results for this | | ECHOCARDIOGRAM, | e | 12:00 AM | exertion) Preop | procedure are in the | | ADULT | | PDT | cardiovascular exam | results section. | + +--------+ + + + documented in this encounter Visit Diagnoses + + | Diagnosis | + + | GROSSMAN (dyspnea on exertion) - Primary Other dyspnea and respiratory abnormality | + + | Preop cardiovascular exam Pre-operative cardiovascular examination | + + documented in this encounter Administered Medications + +---------+ + +---------+------+ | Medication Order | MAR | Action | Dose | Rate | Site | | | Action | Date | | | | + +---------+ + +---------+------+ | DOBUTamine in D5W 250 mg/250 mL | New Bag | 08/08/19 | 10 | 114.06 | | | (1 mg/mL) IV infusion 5- | | 15 12:53 | mcg/kg/m | mL/hr | | | mcg/kg/min | | PM PDT | in | | | | 190.1 kg (rounded to | | | | | | | 57.03-524.68 mL/hr), intravenous, | | | | | | | INTRAPROCEDURE CONTINUOUS PRN, | | | | | | | Starting Thu08/07/14 at 1427, | | | | | | | Until Thu08/07/14 at 1626, per | | | | | | | dobutamine stress echo protocol | | | | | | + +---------+ + +---------+------+ +---------+ + +--------+---+ | New Bag | 08/08/19 | 5 | 57.03 | | | | 15 12:50 | mcg/kg/m | mL/hr | | | | PM PDT | in | | | +---------+ + +--------+---+ +---+---+ | | | +---+---+ + +---------+ +-------+---+---+ | esmolol (BREVIBLOC) injection | New Bag | 08/08/19 | 20 mg | | | | 10-30 mg 10-30 mg, intravenous, | | 15 12:57 | | | | | INTRAPROCEDURE PRN, Starting Mon | | PM PDT | | | | | 08/07/14 at 1427, Until 08/07/14 | | | | | | | at 1626, per dobutamine stress | | | | | | | echo protocol | | | | | | + +---------+ +-------+---+---+ +---+---+ | | | +---+---+ + +---------+ +--------+---+---+ | perflutren lipid microspheres | New Bag | 08/08/19 | 1.5 mL | | | | (DEFINITY) injection 1.5 mL 1.5 | | 15 1:05 | | | | | mL, intravenous, PROCEDURE ONCE, | | PM PDT | | | | | 1 dose, 08/07/14 at 1315 | | | | | | + +---------+ +--------+---+---+ +---+---+ | | | +---+---+ documented in this encounter
--- OUTSIDE RECORDS SUMMARY | ~2019-06-14 | XMS | Encounter Summary ---
Demographics + + + | Address | [address] | | | [place] [address] | + + + | Home Phone [...] + + + | Author | [facility] | + + + | Organization | [facility] | + + + | Address [...] Team Providers + +------+ + | Care E Marketing Specialist Name | Role | Phone | + +------+ + | Iqra Peralta MD | PCP | | + +------+ + Encounter Details +--------+ + + + + | Date | Type | Department | Care Team | Description | +--------+ + + + + | 12/09/ | MyChart | [facility] | | bariatric follow up | | 2019 | Encounter | [place] [facility] [address] | | | | | | [address] | | | | | | Mailcode: [place] | | | | | | [facility] | | | | | | [facility], [address] | | | | | | [place], [place] | | | | | | [address] | | | | | | [phone] | | | +--------+ + + + [...]
--- OUTSIDE RECORDS SUMMARY | ~2019-06-14 | XMS | Encounter Summary ---
Demographics + + + | Address | [address] | | | [place] [address] | + + + | Home Phone [...] | + + +---------+ + | Lana [place] | ECON | Unknown | | + + +---------+ + Care Team Providers + +------+ + | Care Pole Peeling Machine Operator Helper Name | Role | Phone | + +------+ + | Bassam Ross DO | PCP | | + +------+ + Encounter Details +--------+ + + + + | Date | Type | Department | Care Team | Description | +--------+ + + + + | 03/10/ | MyChart | Cardiology | Sheila Loya | Tests | | 2015 | Encounter | Preventive at [facility] | JULIETA Figueroa [address] | | | | | [address] | [place], | | | | | Mailcode: CH9A | [place] [address] | | | | | [facility] | [phone] | | | | | and Healing, | | | | | | [address] | | | | | | [place], [place] | | | | | | [address] | | | | | | [phone] | | | +--------+ + + + [...]
--- OUTSIDE RECORDS SUMMARY | ~2019-06-14 | XMS | Encounter Summary ---
Demographics + + + | Address | [address] | | | [place] [address] | + + + | Home Phone | | + + + | Preferred Language | Unknown | + + + | Marital Status | Single | + + + | Hindu Affiliation | Unknown | + + + | Race | Unknown | + + + | Ethnic Group | Unknown | + + + Author + + + | Author | [facility] | | | and [place] | + + + | Organization | [facility] | | [...] Team Providers + +------+ + | Care Motor Lodge Clerk Name | Role | Phone | + +------+ + PCP | Unavailable | + +------+ + Encounter Details +--------+ + + + + | Date | Type | Department | Care Team | Description | +--------+ + + + + | 01/11/ | Hospital | [facility] | Ortolano, | Unspecified Symptom | | 2009 - | Encounter | [facility] [address] | Stan Herrera MD [address] | Associated with | | | | [address] | [address] | Female Genital | | 01/13/ | | [place], [place] | [place] [address] | Organs | | 2009 | | [address] | [phone] | | | | | [phone] | | | +--------+ + + + [...] [place] | | | | | | [address] | | | | | | | | +--------+---------+ + + + | 01/18/ | Office | Sleep Medicine | Jermaine Fairchild | | | 2019 | Visit | | MD Jac Sous[address] [place] | | | | | | [place] | | | | | | [place] [address] | | | | | | [phone] | | | | | | | | +--------+---------+ + + + documented as of this encounter Visit Diagnoses + + | Diagnosis | + + | Unspecified symptom associated with female genital organs | + + documented in this encounter"
--- OUTSIDE RECORDS SUMMARY | ~2019-06-14 | XMS | Encounter Summary ---
Demographics + + + | Address | [address] | | | [place] [address] | + + + | Home Phone [...] | + + +---------+ + | Lana [place] | ECON | Unknown | | + + +---------+ + Care Team Providers + +------+ + | Care Special Education Bus Driver Name | Role | Phone | + +------+ + | Bassam Ross DO | PCP | | + +------+ + Encounter Details +--------+ + + + + | Date | Type | Department | Care Team | Description | +--------+ + + + + | 03/28/ | Abstract | Digestive Health | Tilgner, Thania F, | | | 2013 | | Center at [facility] [address] | | | | | [address] | [place], [place] | | | | | Mailcode: [place] | [address] | | | | | for Health and | | | | | | [facility] [address] | | | | | | [place], [place] | | | | | | [address] | | | | | | | [...]
--- OUTSIDE RECORDS SUMMARY | ~2019-06-14 | XMS | Encounter Summary ---
Demographics + + + | Address | [address] | | | [place] [address] | + + + | Home Phone | | + + + | Preferred Language | Unknown | + + + | Marital Status | Single | + + + | Yazidism Affiliation | NRP | + + + | Race | White | + + + | Ethnic Group | Not or | + + + Author + + + | Author | [facility] | + + + | Organization | [facility] | + + [...] | + + +---------+ + | Lana [place] | ECON | Unknown | | + + +---------+ + Care Team Providers + +------+ + | Care Manager Law Name | Role | Phone | + [...] | +--------+ + + + + | 11/15/ | Telephone | Digestive Health | Dori Reed, | Follow-up encounter | | 2014 | | Center at [facility] [address] | | | | | | [address] | | | | | | Mailcode: [place] | | | | | | for Health and | | | | | | [facility] [address] | | | | | | [place], [place] | | | | | | [address] | | | | | | [phone] | | | +--------+ + + + [...]
--- OUTSIDE RECORDS SUMMARY | ~2019-06-14 | XMS | Encounter Summary ---
Demographics + + + | Address | [address] | | | [place] [address] | + + + | Home Phone [...] + + + | Author | [facility] | | | and [place] | + + + | Organization | [facility] | | [...] Team Providers + +------+ + | Care Racing Car Driver Name | Role | Phone | + +------+ + PCP | Unavailable | + +------+ + Encounter Details +--------+ + + + + | Date | Type | Department | Care Team | Description | +--------+ + + + + | 06/01/ | [facility] | [facility] | Isabel Lu | | | 1997 - | Encounter | MED CTR GENERIC OP | M, DO [address] | | | | | CONV DEPT [address] | [address] | | | 12/19/ | | [place], | [place] | | | 1999 | | [place] [address] | [address] | | | | | [phone] | | | +--------+ + + + [...] [place] | | | | | | [address] | | | | | | | | +--------+---------+ + + + | 01/18/ | Office | Sleep Medicine | Jermaine Fairchild | | | 2020 | Visit | | MD Lars [address] [place] [address] | | | | | | [place] | | | | | | [place] [address] | | | | | | [phone] | | | | | | | | +--------+---------+ + + + documented as of this encounter Visit Diagnoses Not on filedocumented in this encounter"
--- OUTSIDE RECORDS SUMMARY | ~2019-06-14 | XMS | Encounter Summary ---
Demographics + + + | Address | [address] | | | [place] [address] | + + + | Home Phone | | + + + | Preferred Language | Unknown | + + + | Marital Status | Single | + + + | Yazdanism Affiliation | NRP | + + + [...] | + + +---------+ + | Lana [place] | ECON | Unknown | | + + +---------+ + Care Team Providers + +------+ + | Care Mobile Nurse Name | Role | Phone | + +------+ + | Bassam Rsos DO | PCP | | + +------+ + Encounter Details +--------+ + + + + | Date | Type | Department | Care Team | Description | +--------+ + + + + | 01/03/ | Hospital | Radiology/Imaging | | | | 2013 | Encounter | Lab at [facility] [address] | | | | | | [place] Mailcode: | | | | | | [address] [facility] | | | | | | Health and Healing, | | | | | | [place] [address], [facility] | | | | | | Floor [place], [place] | | | | | | [address] | | | | | | [phone] | | | +--------+ + + + [...] +--------+ + + + | X-RAY CHEST 2 VIEW | Routin | 01/03/2014 | GROSSMAN (dyspnea on | Results for this | | | e | 3:59 PM | exertion) | procedure are in the | | | | PDT | | results section. | + +--------+ + + + documented in this encounter Results X-RAY CHEST 2 VIEW (01/03/2014 3:59 PM PDT) + + + + + + | Component | Value | Ref Range | Performed | Pathologist | | | | | At | Signature | + + + + + + | CHEST, 2 | EXAM: CHEST 2 VIEWS | | | | | VIEWS [place] | 01/03/14 15:59:00 | | | | | STEREO | HISTORY: Dyspnea on | | | | | | exertion COMPARISON: | | | | | | None available FINDINGS: | | | | | | The lungs are clear | | | | | | without suspect | | | | | | pulmonary nodules. There | | | | | | is no | | | | | | vascularindistinctness, | | | | | | although the pulmonary | | | | | | arteries are enlarged | | | | | | and characteristicfor | | | | | | hypertension. There is | | | | | | no pneumothorax or | | | | | | pleural effusion | | | | | | identified. Theheart | | | | | | size approaches the | | | | | | upper limits of normal. | | | | | | No acute | | | | | | osseousabnormalities. | | | | | | IMPRESSION: Findings | | | | | | characteristic for | | | | | | pulmonary hypertension. | | | | | | Lungs are clear. | | | | | | Attending Radiologists: | | | | | | ROSSY VASQUEZ, | | | | | | MDAuthor: NAY | | | | | | MD RUTHANN I have | | | | | | personally viewed this | | | | | | procedure/exam, reviewed | | | | | | this report, and | | | | | | madechanges to it where | | | | | | appropriate. | | | | | | Final/Electronically | | | | | | signed / ROSSY Malcolm | | | | | | CHRISTINA 01/03/2014 | | | | | | 17:21 PM | | | | + + [...] + + | GROSSMAN (dyspnea on exertion) Other dyspnea and respiratory abnormality | + + documented in this encounter"
--- OUTSIDE RECORDS SUMMARY | ~2019-06-14 | XMS | Encounter Summary ---
Demographics + + + | Address | [address] | | | [place] [address] | + + + | Home Phone | | + + + | Preferred Language | Unknown | + + + | Marital Status | Single | + + + | Adventism Affiliation | NRP | + + + | Race | White | + + + | Ethnic Group | Not or | + + + Author + + + | Author | [facility] | + + + | Organization | [facility] | + + + | Address [...] | + + +---------+ + | [place] | ECON | Unknown | | + + +---------+ + Care Team Providers + +------+ + | Care Filter Tender Jelly Name | Role | Phone | + +------+ + | Bassam Ross DO | PCP | | + +------+ + Reason for Visit AUTH/CERT +--------+--------+ + + + + | Status | Reason | Specialty | Diagnoses / | Referred By | Referred To | | | | | Procedures | Contact | Contact | +--------+--------+ + + + + | Closed | | | | | | +--------+--------+ + + + + Encounter Details +--------+---------+ + + + | Date | Type | Department | Care Team | Description | +--------+---------+ + + + | 02/07/ | Surgery | 6A Intra Op [id number] | Dori Fajardo, | LAPAROSCOPIC SLEEVE | | 2014 | | [address] | | GASTRECTOMY | | | | [facility] | | Specimen to | | | | Hospital Admitting | | Pathology x 1 (TY) | | | | Desk Located on the | | | | | | 9th floor | | | | | | [place], [place] | | | | | | [address] | | | +--------+---------+ + + + [...] + + + | Blood Pressure | 119/58 | 02/08/2015 9:08 AM | | | | | PDT | | + + + + + | Pulse | 77 | 02/08/2015 9:08 AM | | | | | PDT | | + + + + + | Temperature | 36.7 C (98.1 F) | 02/08/2015 9:08 AM | | | | | PDT | | + + + + + | Respiratory Rate | 16 | 02/08/2015 9:08 AM | | | | | PDT | | + + + + + | Oxygen Saturation | 95% | 02/08/2015 9:08 AM | | | | | PDT | | + + + + + | Inhaled Oxygen | - | - | | | Concentration | | | | + + + + + | Weight | - | - | | + + + + + | Height | - | - | | + + + + + | Body Mass Index | - | - | | + + + + + documented in this encounter Discharge Summaries Danica Shane ACNP - 02/08/2015 9:20 AM PDT [facility] INPATIENT DISCHARGE SUMMARY Author: RENETTA HERNANDEZ Attending Physician: Dori Fajardo MD PCP: Bassam Ross DO Admission Date: 02/07/2015 Discharge Date: 08 Feb 2015 Diagnoses Principal Final Diagnosis: 1. Morbid Obesity Additional Diagnoses:sleep apnea, asthma, insulin resistance, obesity related hypoventilati on syndrome, osteoarthritis, intertrigenous skin infections, stress urinary incontinence and hypertension Procedure Lap sleeve gastrectomy Brief Hospital Course Ms. Darden is a 44 year old female with a history of morbid obesity and associated sleep apne a, asthma, insulin resistance, obesity related hypoventilation syndrome, osteoarthritis, int ertrigenous skin infections, stress urinary incontinence and hypertension . She was taken to the OR on 02/07/2015 for the noted procedure. She tolerated the procedure well with no operat phuong complications. She recovered briefly in the PACU before being transferred to the iglesias fo r observation. Postoperatively, she was placed on a bariatric clear liquid diet. She was gi ryley the bariatric oral intake log to record her hourly intakes. Overnight she was able to to lerate clear liquids well. On postoperative day 1, she was tolerating bariatric clear liquid s well, thus she was advanced to a bariatric full liquid diets. Our bariatric dietitian was consulted and they discussed her postoperative diet instructions. On day of discharge, her v ital signs were stable, tolerating full liquid diet, pain was well controlled with oral pain medications, incision sites were clean, dry and intact, and was ambulating and voiding with out difficulty. Thus, she was deemed stable for discharge. Discharge instructions have been reviewed with the patient and all questions have been answered. We will have her follow up w [facility] Bariatric Nurse Practitioner in 1 week, her surgeon, Dr. Fajardo in 4 weeks. Additionally, she was noted to have blood glucoses into the 200's while hospitalized, which were treated with slididing scale insulin coverage. She was instructed to follow up with he r PCP in 1 week to follow up her glucose and discuss further intervention as necessary. Medications: Current Discharge Medication List START taking these medications Details HYDROmorphone 4 mg oral tablet Take 0.5-1 tablets by mouth every four hours as needed for s evere pain. Qty: 75 tablet, Refills: 0 CONTINUE these medications which have NOT CHANGED Details acetaminophen 325 mg oral tablet Take 2 tablets by mouth every six hours as needed for pain . Cut tablet into small pieces. Do not crush. Qty: 100 tablet, Refills: 0 albuterol 90 mcg/actuation inhalation HFA aerosol inhaler Inhale every four hours as needed . ALPRAZolam 0.5 mg oral tablet Take by mouth. CARVEDILOL ORAL Take 50 mg by mouth two times daily. cloNIDine (CATAPRES) 0.1 mg oral tablet Take 0.3 mg by mouth two times daily. cyclobenzaprine 10 mg oral tablet Take 10 mg by mouth three times daily as needed. Do not u se longer than 2-3 weeks. glycerin, ADULT, rectal suppository Insert 1 suppository rectally once daily as needed (for constipation). Qty: 5 suppository, Refills: 2 omeprazole 20 mg oral capsule,delayed release(DR/EC) Take 1 capsule by mouth once daily in the morning for 90 days. Open the capsule and mix into sugar-free liquid or yogurt. Qty: 90 capsule, Refills: 0 ondansetron ODT 4 mg oral tablet,disintegrating Place 1 tablet on tongue and let it dissolv e every 6 hours as needed for nausea/vomiting. Qty: 30 tablet, Refills: 1 polyethylene glycol 17 gram/dose oral powder Dissolve 17g (1 capful) into 4 ounces of liqui d and drink once daily as needed for constipation. Qty: 255 g, Refills: 0 Pramipexole (MIRAPEX) 0.75 mg oral tablet Take 0.75 mg by mouth two times daily. simethicone chew 80 mg oral tablet,chewable Take 1 tablet by mouth four times daily as need ed for gas/ bloating. Qty: 30 tablet, Refills: 0 thyroid (ARMOUR THYROID) 60 mg oral tablet tablet Take 60 mg by mouth once daily. STOP taking these medications cholecalciferol 50,000 unit oral capsule Comments: Reason for Stopping: furosemide 40 mg oral tablet Comments: Reason for Stopping: Bariatric Diet a. You will be on FULL liquid diet. Try to take 48-64 ounces daily. Liquids should be of a thin consistency and liquids should be able to be poured from cup to cup. b. Aim for 60-80 grams of protein per day from list of foods on page 55 or the handout pro vided by your dietitian prior to discharge. You will remain on this diet for 2-3 weeks. Do not advance your diet until you are seen in clinic. c. Patient may take medication tablets < or = to 1.30 cm (0.5 inch, approximately the size of a regular M&M). Otherwise, break the pill into that size. If medication is a capsule, op en capsule. Full Liquid Diet Continue your Full Liquid Diet at home. This includes protein drinks, cream of wheat, yogu rt without fruit and clear liquids. Activity a. Do not do any strenuous exercise until your provider has given you permission to do so. No heavy lifting greater than 10 pounds for 4 weeks. b. Walking will be your main form of physical activity. It is important to move frequently throughout the day, increasing your activity level and walking often. It is important to st art slow, but increase your activity each day. c. Do not drive while on narcotic medications. d. Follow abdominal precautions. Wound Care Keep incision clean and dry. No dressings are needed. You may shower. Please pat incisional area dry. Do not rub the incisions; allow for crust to fall off on its own. No baths, hot tubs or swimming for 2 weeks if laparoscopic and 4 weeks if open surgery. Dehydration Dehydration: It is extremely important for you to stay hydrated. You should be taking in 64 ounces of fluid daily. You should also be urinating at least four times a day. Please monit or and record your daily fluid intake, and report to us immediately if you are not urinating at least four times a day or are experiencing pain with urination. Medication Instructions Medication Instructions: Please cut pills with pill cutter into particles the size of a M&M. Take particles with sma ll amount of sugar-free liquid, pudding or yogurt. If unable to cut, please crush pills. If any of your medications come in capsule form, please open capsule and empty contents into sm all amount of sugar-free liquid or yogurt. Take entire contents via mouth. Vitamins Vitamins: You will begin taking your vitamins after your first 1 week post operative visit with the Nurse Practitioner. If your insurance does not cover vitamins, they are available over the counter at most [facility] stores. Nausea/Vomiting/Difficulty Swallowing Nausea/Vomiting/Difficulty swallowing: Could be from not ingesting appropriate food/drink, eating too much or too fast. Do not drink with meals, leave at least 30 minutes between eati ng and drinking to decrease overfilling of the stomach. Take nausea medication provided to y ou if you feel nauseated. It is important that you meet your goal of fluid intake (64 ounces /day) Malaise (Feeling tired) Malaise (Feeling tired): It is very normal to feel tired after surgery for the first two we eks. It is important to be active, and you should feel a little bit better each day. Primary Care Provider Follow Up Primary Care Provider Follow Up: a) Primary care follow up is extremely important. You need to make a follow up appointment with your Primary Care Provider in 2 weeks. It is especially important to do so if you are on medications for your blood pressure or for diabetes. At this appointment your provider wi ll review your medications and make the necessary changes--if needed. b Constipation Prevention It is very important to avoid constipation and straining while trying to have a bowel movem ent. It is common to experience constipation after your operation and when taking narcotics. Please use laxative medications such Polyethylene glycol (Miralax) or glycerin suppositorie s to assist you with having regular bowel movements. Please work towards having a bowel mov ement every 1-2 days. A hot drink each morning will also help the sphincter to work in pushi ng the stool forward. It is important to stay hydrated, about 45-60 fluid ounces daily, and this will help your bowel function. Pain Instructions It is expected that you will experience pain after your operation, and it is important to h ave you manage your pain to increase your activity, sleep and overall healing. You will have a prescription for pain relief. This should be taken every 3-6 hours per your instructions. Some medications, like [place], have Tylenol in it. Make sure you do not take more than 4,000 mg of Tylenol or acetaminophen in 24 hours. Pain Tapering Instructions Your pain should slowly and steadily diminish as you heal. If your pain level at the surger y site increases, you should call us. It is normal for increased pain if you are overly acti ve or you decrease your pain medication, but a significant and unexplained increase in pain should be discussed with your surgeon. Pain medication is usually necessary for only 4-5 day s postoperatively. It is important to have a plan for tapering off of pain medication. Con sult your pharmacist to construct a proper tapering schedule. Clinic staff is able to help you develop a tapering schedule as well. Please be aware that if you have chronic pain issue s, or you require pain medication for an extended period of time, you will likely be given i nstructions to follow up with your PCP or a pain management provider. Refill Instructions: Your pain medications should be taken as needed, as prescribed by your healthcare provider. You should plan to taper down your dosing within the first 2-3 days postop. Refills are n ot available outside of clinic hours or on weekends or holidays. Narcotic pain medications require a written prescription and must be signed by a provider and mailed to you or picked up. If you need ongoing pain medication beyond the usual recovery period, you will be direc laurel to follow up with your primary care provider (PCP) as this clinic does not provide [facility] chronic pain management services. When to Call the Doctor When to Call the Doctor - If your incision becomes red, swollen, or has any bloody or pus-like drainage. - If you have a fever of 101.5 F or greater or if you have chills. - If you have increased pain, unrelieved by your pain medications. - If you have persistent nausea, vomiting, diarrhea, or no bowel movement for more than 2 d ays after discharge from the hospital. - If you develop any unusual signs or symptoms, including chest pain, shortness of breath, pulmonary embolism, leg swelling, pain or redness that is abnormal for you, and other sympto ms of concern. - If you have any questions or concerns. How to Call the Doctor - You may contact your doctor Thursday through Thursday during the daytime hours by calling the surgery office at [phone]. - After hours, weekends and holidays, you may call the hospital purification operator at [phone] an d have the commanding officer traffic division Red Surgery Team paged. Destination Home Condition Stable Vitals on discharge: BP 109/51, Pulse 67, Temperature 36.5 C (97.7 F), RR 16, SpO2 91%. Outstanding labs/studies: None Physical Exam General: Alert, oriented, NAD Respiratory: Breathing comfortably Cardiovascular: RRR Abdomen: soft, appropriately tender, non distended, lap incisions sites are without drainag e, surrounding erythema or induration. Extremities: warm, well perfused, no edema noted Schedule the following appointment(s) when you get home [facility] with [facility] [address] [facility]. Go in 1 week. Specialty: Surgery Why: 1 week Post Op Visit with Nurse Practitioner Contact information [address] Mailcode: [address] [facility] [address] [address] Follow up with DORI FAJARDO MD. Go in 4 weeks. Specialty: General Surgery Why: 4 week Post Op Visit Contact information [address] [facility] [phone] Follow up with BASSAM ROSS DO. Schedule an appointment as soon as possible for a visit in 2 weeks. Specialty: Family Medicine Why: Follow up recent bariatric surgery, follow up chronic conditions and home medication management Contact information [address] [facility] [address] Future Appointments Provider Department Dept Phone Center 02/15/2015 1:00 PM [facility] [address] [facility] [phone] FOOD AND NUT 02/15/2015 3:00 PM Thania Lamas [facility] at [facility] [address] [facility] [phone] [facility] 03/08/2015 11:30 AM Dori Fajardo [facility] 6th Floor [phone] Di g Health 03/08/2015 1:00 PM [facility] 6th Floor [phone] FOOD AND NUT Discharging Physician: RENETTA HERNANDEZ Attending Physician: Dori Fajardo MD [facility] Red Surgery Pager# [phone] 9:20 AM 02/08/2015 documented in this enco unter Discharge Instructions Instructions Agustina Mathis RN - 02/08/2015Patient Education Materials: Home care after surgery, abdominal precautions Additional Instructions: When to call your MD, incisions become red swollen, bloody or barakat colored drainage. Fever of 101.5, pain unresolved with prescribed pain medications. Nausea , vomiting or no bowel movement 2 days after discharging from the hospital. Any concerns yo u have. During day time hours call [phone] and on weekends and after hours call [phone] and ask for the Red Resident commanding officer traffic division. Discharge Nurse: Agustina Mathis Date: 02/08/2015 Discharge Time: 11:04 AM documented in this encounter Medications at Time of Discharge + + + +---------+ + + | Medication | Sig | Dispensed | Refills | Start | End Date | | | | | | Date | | + + + +---------+ + + | omeprazole 20 mg | Take 1 capsule by | 90 | 0 | 01/26/20 | | | oral capsule,delayed | mouth once daily in | capsule | | 15 | 5 | | release(DR/EC) | the morning for 90 | | | | | | | days. Open the | | | | | | | capsule and mix into | | | | | | | sugar-free liquid | | | | | | | or yogurt. | | | | | + + + +---------+ + + documented as of this encounter Progress Notes Juju Alcantar MD - 02/07/2015 9:19 AM PDTBRIEF OPERATIVE NOTE Procedure Date: 02/07/2015 Author: JUJU ALCANTAR MD Attending Physician: Brianna Assistants: Ortiz Preoperative Diagnosis: Morbid Obesity, Fatty Liver Postoperative Diagnosis: same Procedure Performed: laparoscopic sleeve gastrectomy Findings: challenging anatomy due to massive hepatomegaly and many intraabdominal adhesions Complications: none immediate Fluids: crystalloid: 1800 Specimens: greater curve gastrectomy specimen Drains: none Disposition: PACU then acute care Calderon: Never placed Diet: bariatric clears per protocol Antibiotic Plan: None Glycemic control: SQ sliding scale Dressing care: No wound care required Activity restrictions: Up ad darwin Initial surgical contact: Ortiz at pager [phone] TERYoJuju rivas MD - 01/2015 6:20 AM PDTI have examined the patient and reviewed the History and Physical and mcgowan ve confirmed that it is accurate and current. JUJU ALCANTAR MD documente d in this encounter Plan of Treatment Not on filedocumented as of this encounter Procedures + +--------+ + + + | Procedure Name | Priori | Date/Time | Associated Diagnosis | Comments | | | ty | | | | + +--------+ + + + | LAPAROSCOPIC | Routin | 07/05/2015 | | Results for this | | GASTRECTOMY, SLEEVE | e | 12:33 PM | | procedure are in the | | | | PST | | results section. | + +--------+ + + + | PROCEDURE NOTE | Routin | 07/05/2015 | | Results for this | | | e | 12:30 PM | | procedure are in the | | | | PST | | results section. | + +--------+ + + + | CAPILLARY BLOOD | Routin | 02/08/2015 | Morbid obesity | Results for this | | GLUCOSE (NO CHG), | e | 6:45 AM | with BMI of 70 and | procedure are in the | | POC | | PDT | over, adult (HCC) | results section. | + +--------+ + + + | BASIC METABOLIC SET | Urgent | 02/08/2015 | | Results for this | | (NA, K, CL, TCO2, | | 5:03 AM | | procedure are in the | | BUN, CR, GLU, CA) | | PDT | | results section. | + +--------+ + + + | CBC (HEMOGRAM) ONLY | Urgent | 02/08/2015 | | Results for this | | | | 5:02 AM | | procedure are in the | | | | PDT | | results section. | + +--------+ + + + | CBC ONLY | Urgent | 02/08/2015 | | Results for this | | | | 5:02 AM | | procedure are in the | | | | PDT | | results section. | + +--------+ + + + | LAPAROSCOPIC SLEEVE | Electi | 02/07/2015 | Morbid obesity | | | GASTRECTOMY | ve | 7:28 AM | (HCC) | | | | Surgic | PDT | | | | | al | | | | + +--------+ + + + | CARDIOLOGY | | 02/07/2015 | | Results for this | | | | 12:00 AM | | procedure are in the | | | | PDT | | results section. | + +--------+ + + + | SURGICAL PATHOLOGY | Routin | 02/07/2015 | | Results for this | | | e | | | procedure are in the | | | | | | results section. | + +--------+ + + + documented in this encounter Results LAPAROSCOPIC GASTRECTOMY, SLEEVE (07/05/2015 12:33 PM PST)PROCEDURE NOTE (07/05/2015 12:30 PM PST)CAPILLARY BLOOD GLUCOSE (NO CHG), POC (02/08/2015 6:45 AM PDT) + +---------+ + + + | Component | Value | Ref Range | Performed | Pathologist | | | | | At | Signature | + +---------+ + + + | BLOOD | 241 (H) | 60 - 99 mg/dL | [...] | [facility] | [address] | [place], [place] | | | [facility] | [address] | [address] | | | TESTS | | | | + + + + + BASIC METABOLIC SET (NA, K, CL, TCO2, BUN, CR, GLU, CA) (02/08/2015 5:03 AM PDT) + +---------+ + + + | Component | Value | Ref Range | Performed | Pathologist | | | | | At | Signature | + +---------+ + + + | GLUCOSE, | 271 (H) | 60 - 99 mg/dL | [...] +---------+ + + + | CREATININE | 0.68 | 0.60 - 1.10 | [facility] | | | PLASMA | | mg/dL | LABORATORY | | | (LAB) | | | SERVICES, | | | | | | CORE | | + +---------+ + + + | EGFR | >60 | >60 mL/min | [facility] | | | - | | | LABORATORY | | | CHILEAN | | | SERVICES, | | | | | | CORE | | + +---------+ + + + | EGFR NON | >60 | >60 mL/min | [facility] | | | -ALIZA | | | LABORATORY | | | RICAN | | | SERVICES, | | | | | | CORE | | + +---------+ + + + | SODIUM, | 132 (L) | 136 - 145 | [facility] | | | PLASMA | | mmol/L | LABORATORY | | | (LAB) | | | SERVICES, | | | | | | CORE | | + +---------+ + + + | POTASSIUM, | 3.8 | 3.4 - 5.0 | [facility] | | | PLASMA | | mmol/L | LABORATORY | | | (LAB) | | | SERVICES, | | | | | | CORE | | + +---------+ + + + | CHLORIDE, | 95 (L) | 97 - 108 mmol/L | [facility] | | | PLASMA | | | LABORATORY | | | (LAB) | | | SERVICES, | | | | | | CORE | | + +---------+ + + + | TOTAL CO2, | 25 | 21 - 32 mmol/L | [facility] | | | PLASMA | | | LABORATORY | | | (LAB) | | | SERVICES, | | | | | | CORE | | + +---------+ + + + | CALCIUM, | 8.7 | 8.6 - 10.2 | [facility] | | | PLASMA | | mg/dL | LABORATORY | | | (LAB) | | | SERVICES, | | | | | | CORE | | + +---------+ + + + | ANION GAP | 12 | mmol/L | [facility] | | | [...] | + + + + + | [facility] | [address] [facility] | [place] [address] | | | SERVICES, CORE | [address] | | | + + + + + CBC (HEMOGRAM) ONLY (02/08/2015 5:02 AM PDT) + + + + + + | Component | Value | Ref Range | Performed | Pathologist | | | | | At | Signature | + + + + + + | WHITE CELL | 12.64 (H) | 4.40 - 11.00 | [facility] | | | COUNT | | K/cu mm | LABORATORY | | | | | | SERVICES, | | | | | | CORE | | + + + + + + | RED CELL | 4.27 | 4.00 - 5.20 | [facility] | | | COUNT | | M/cu mm | LABORATORY | | | | | | SERVICES, | | | | | | CORE | | + + + + + + | HEMOGLOBIN | 13.8 | 12.0 - 16.0 | [facility] | | | | | g/dL | LABORATORY | | | | | | SERVICES, | | | | | | CORE | | + + + + + + | HEMATOCRIT | 39.8 | 36.0 - 46.0 % | [facility] | | | | | | LABORATORY | | | | | | SERVICES, | | | | | | CORE | | + + + + + + | MCV | 93.2 | 80.0 - 96.0 fL | [facility] | | | | | | LABORATORY | | | | | | SERVICES, | | | | | | CORE | | + + + + + + | MCHC | 34.7 | 33.0 - 35.5 | [facility] | | | | | g/dL | LABORATORY | | | | | | SERVICES, | | | | | | CORE | | + + + + + + | RDW SD | 44.8 | 35.1 - 46.3 fL | [facility] | | | | | | LABORATORY | | | | | | SERVICES, | | | | | | CORE | | + + + + + + | PLATELET | 280 | 150 - 400 K/cu | [facility] | | | COUNT | | mm | LABORATORY | | | | | | SERVICES, | | | | | | CORE | | + + + + + + | MPV | 11.0 | 9.7 - 12.3 fL | [facility] [...] | + + + + + | [facility] | [address] | [place] [address] | | | SERVICES, CORE | [address] | | | + + + + + SURGICAL PATHOLOGY (02/07/2015) + + + + + + | Component | Value | Ref Range | Performed | Pathologist | | | | | At | Signature | + + + + + + | SURGICAL | SOURCE OF SPECIMEN:A | | [facility] | | | PATHOLOGY | Lateral stomach | | DEPARTMENT | | | | Final Pathologic | | OF | | | | Diagnosis:Lateral | | PATHOLOGY | | | | stomach, laparoscopic | | | | | | sleeve gastrectomy: | | | | | | - Portion of stomach | | | | | | with no diagnostic | | | | | | abnormality Case | | | | | | seen by:Marifer French, | | | | | | M.DMahendra / Surgical | | | | | | Pathology FellowB[facility] | | | | | | Renato Barksdale/Pathologist | | | | | | Clinical | | | | | | History:The patient is a | | | | | | 44-year-old female with | | | | | | morbid obesity, | | | | | | laparoscopicsleeve | | | | | | gastrectomy. Gross | | | | | | Description:Received is | | | | | | 1 specimen fresh in a | | | | | | container labeled with | | | | | | the patient's | | | | | | name(initials TH) and | | | | | | "lateral stomach." | | | | | | Received is a portion | | | | | | of stomachmeasuring 14 x | | | | | | 4.5 x 3 cm. A 16-cm | | | | | | staple line is noted | | | | | | around the edge ofthe | | | | | | specimen. The | | | | | | adventitial surface is | | | | | | barakat-red, smooth, and | | | | | | glistening.Opening of | | | | | | the specimen reveals the | | | | | | lumen to be filled with | | | | | | bloody fluid.The mucosa | | | | | | is barakat-red and exhibits | | | | | | normal rugal folding. | | | | | | No discretemasses or | | | | | | lesions are identified. | | | | | | Computer Information Systems Professor | | | | | | sections are submitted. | | | | | | Cassette | | | | | | Index:[id number] My | | | | | | electronic signature | | | | | [...] | | diagnosis. | | | | | | Rendering Diagnostician: | | | | | | Eugenio Barksdale | | | | | | Tabby | | | | | | miles Signed 02/08/2015 | | | | | | 6:59PM | | | | + + + [...] | + + + + + | [facility] | [address] | [place] [address] | | | PATHOLOGY | [address] | | | + + + + + CARDIOLOGY (02/07/2015 12:00 AM PDT) + + + | Narrative | Performed At | + + + | | | + + + documented in this encounter Visit Diagnoses + + | Diagnosis | + + | Morbid obesity (HCC) Morbid obesity | + + documented in this encounter Administered Medications + +--------+ +-------+------+---------+ | Medication Order | MAR | Action | Dose | Rate | Site | | | Action | Date | | | | + +--------+ +-------+------+---------+ | bupivacaine (PF) | Given | 02/08/20 | 12 mL | | Abdomen | | (MARCAINE,SENSORCAINE-MPF) | | 15 8:34 | | | | | injection INTRAPROCEDURE PRN, | | AM PDT | | | | | Starting Thu02/07/15 at 0834, | | | | | | | Until Thu02/07/15 at 0933 | | | | | | + +--------+ +-------+------+---------+ +---+---+ | | | +---+---+ documented in this encounter
--- OUTSIDE RECORDS SUMMARY | ~2019-06-14 | XMS | Encounter Summary ---
Demographics + + + | Address | [address] | | | [place] [address] | + + + | Home Phone | | + + + | Preferred Language | Unknown | + + + | Marital Status | Single | + + + | Zoroastrianism Affiliation | NRP | + + + [...] | + + +---------+ + | Lana Goshen | ECON | Unknown | | + + +---------+ + Care Team Providers + +------+ + | Care Telephone Services Sales Representative Name | Role | Phone [...] | | 2019 | | Preventive at [facility] | [address] | Request (Victoza ) | | | | [address] | [place], [place] | | | | | Mailcode: ARASH | [address] | | | | | [facility] | [phone] | | | | | and [place], | | | | | | [address] | | | | | | [place], [place] | | | | | | [address] | | | | | | [phone] | | | +--------+ + + + [...]
--- OUTSIDE RECORDS SUMMARY | ~2019-06-14 | XMS | Encounter Summary ---
Demographics + + + | Address | [address] | | | [place] [address] | + + + | Home Phone | | + + + | Preferred Language | Unknown | + + + | Marital Status | Single | + + + | Christianity Affiliation | NRP | + + + [...] Team Providers + +------+ + | Care Lawn And Tree Service Spray Supervisor Name | Role | Phone | + +------+ + | Bassam Ross DO | PCP | | + +------+ + Encounter Details +--------+ + + + + | Date | Type | Department | Care Team | Description | +--------+ + + + + | 11/20/ | MyChart | Digestive Health | Margot Contreras, RD | RE: Aspen darden | | 2016 | Encounter | Center at [facility] [address] | [address] | letter | | | | [address] | [place], | | | | | Mailcode: [place] | [place] [address] | | | | | for Health and | | | | | | Healing, [facility] [address] | | | | | | [place], [place] | | | | | | [address] | | | | | | [phone] | | | +--------+ + + + [...]
--- OUTSIDE RECORDS SUMMARY | ~2019-06-14 | XMS | Encounter Summary ---
Demographics + + + | Address | [address] | | | [place] [address] | + + + | Home Phone | | + + + | Preferred Language | Unknown | + + + | Marital Status | Single | + + + | Gnosticist Affiliation | NRP | + + + | Race | White | + + + | Ethnic Group | Not or | + + + Author + + + | Author | [facility] | + + + | Organization | [facility] | + + + | [...] Team Providers + +------+ + | Care Signals Intelligence Superintendent Name | Role | Phone | [...] 09/04/ | Office | Digestive Health | | Morbid obesity with | | 2014 | Visit | Center at [facility] [address] | | BMI of 70 and over, | | | | [address] | | adult (HCC) (Primary | | | | Mailcode: Center | | Dx) | | | | for Health and | | | | | | Healing, [address] | | | | | | [place], [place] | | | | | | [address] | | | | | | [phone] | | | +--------+---------+ + + + [...] encounter Progress Notes Margot Contreras, RD - 09/04/2014 4:32 PM PDT Referring Provider: Bassam Ross DO [facility], Pre-Bariatric Surgery Class Pre-Surgery Class #2 prior to having Sleeve Gastrectomy. Pt needs to attend class 1. Documented Time of Class: 3:00 until 4:00 (60 minutes [id number] with patient) OBJECTIVE: Height: Ht Readings from Last 1 Encounters: 09/04/14 1.6 m (5' 3") Ht Readings from Last 1 Encounters: 09/04/14 1.6 m (5' 3") Wt Readings from Last 2 Encounters: 09/04/14 192.325 kg (424 lb) 09/04/14 192.37 kg (424 lb 1.6 oz) Nutrition Diagnosis: Morbid Obesity as evidenced by BMI of 75.1. Teaching Methods: PowerPoint and verbal presentation with additional written materials. Class content included: 1. Review of rutledge points. -Eat within one hour of waking, then every 3 to 4 waking hours (usually 3 meals and 2-3 sna cks daily)Include protein at meals (2-3 ounces) and at snacks (~1 ounce). -Goal is 60-80grams of protein/day -At least 64 ounces of fluids throughout the day (no calories, caffeine, or carbonation) -Separate fluids from meals nothing to drink 30 minutes before, during, and [address] eating -Practice mindful eating eat slowly (30 minutes for meals) without distractions such as T V, computer, phone -Choose foods with < 14 grams of sugar and < 5 grams of fat per serving -30-60 minutes of physical activity most days -Taking vitamins and minerals every day 2. Fluids 3. Exercise 4. Vitamins and Minerals & lab work. 5. Liver Reduction Diet 6. Post surgical diet progression Assessment: Pt remained attentive throughout the class and/or participated by asking questi ons or sharing information. Yes Margot Contreras RD, [facility], LD Pager# [phone] documented in this enco unter Plan of Treatment Not on filedocumented as of this encounter Visit Diagnoses + + | Diagnosis | + + | Morbid obesity with BMI of 70 and over, adult (HCC) - Primary | + + documented in this encounter
--- OUTSIDE RECORDS SUMMARY | ~2019-06-14 | XMS | Encounter Summary ---
Demographics + + + | Address | [address] | | | [place] [address] | + + + | Home Phone [...] Author + + + | Author | [facility] | | | and [place] | + + + | Organization | [facility] | | | [...] Team Providers + +------+ + | Care Steel Rod Buster Name | Role | Phone | + +------+ + | Iqra Peralta MD | PCP | | + +------+ + Encounter Details +--------+ + + + + | Date | Type | Department | Care Team | Description | +--------+ + + + + | 01/19/ | Hospital | [facility] | Conversion | | | 2018 | Encounter | CENTER [facility] | Transaction, | | | | | CLINIC [address] | Provider Unknown | | | | | [place], [place] | [phone] | | | | | [address] | | | | | | [phone] | | | +--------+ + + + [...] | Blood Pressure | 158/76 | 01/19/2018 5:50 PM | | | | | PDT | | + + + + + | Pulse | 102 | 01/19/2018 5:50 PM | | | [...] | Weight | 188 kg (414 lb 7.5 | 01/19/2018 5:50 PM | | | | oz) | PDT | | + + + + + | Height | 157.5 cm (5' 2") | 01/19/2018 5:50 PM | | | | | PDT | | + + + + + | Body Mass Index | 75.81 | 01/19/2018 5:50 PM | | | [...] [place] | | | | | | [address] | | | | | | | | +--------+---------+ + + + | 01/18/ | Office | Sleep Medicine | Jermaine Fairchild | | 2019 | Visit | | MD Jac Sousa | | | | | | [place] | | | | | | [place] [address] | | | | | | [phone] | | | | | | | | +--------+---------+ + + + documented as of this encounter Procedures + +--------+ + + + | Procedure Name | Priori | Date/Time | Associated Diagnosis | Comments | | | ty | | | | + +--------+ + + + | ECG 12 LEAD | Routin | 01/19/2018 | | Results for this | | | e | 5:59 PM | | procedure are in the | | | | PDT | | results section. | + +--------+ + + + | MRSA NAAT | Timed | 01/19/2018 | | Results for this | | | | 5:50 PM | | procedure are in the | | | | PDT | | results section. | + +--------+ + + + documented in this encounter Results ECG 12 lead (01/19/2018 5:59 PM PDT) + + + + + + | Component | Value | Ref Range | Performed | Pathologist | | | | | At | Signature | + + + + + + | DIAGNOSIS: | Atrial fibrillation with | | EXTERNAL | | | | rapid ventricular | | LAB | | | | responseAbnormal ECGWhen | | | | | | compared with ECG of | | | | | | 18-NOV-2013 06:48,Atrial | | | | | | fibrillation has | | | | | | replaced Sinus | | | | | | rhythmVent. rate has | | | | | | increased BY 44 BPMQT | | | | | | has lengthenedConfirmed | | | | | | by Prabhu Hairston MD | | | | | | (69) on 01/19/2018 | | | | | | 9:32:06 PM | | | | + + + + + + + + | Specimen | + + | | + + + + + | Narrative | Performed At | + + + | [facility] | EXTERNAL LAB | + + + + +---------+ + + | Performing | Address | City/State/Zipcode | Phone Number | | Organization | | | | + +---------+ + + | EXTERNAL LAB | | | | + +---------+ + + MRSA NAAT (01/19/2018 5:50 PM PDT) + + | Specimen | + + | | + + + + + | Narrative | Performed At | + + + | SOURCE NARES(NOSE) MRSA | EXTERNAL LAB | | PCR NEGATIVE Testing | | | performed at [facility];[address] [place] [address];[place] [address] | | + + + + +---------+ + + | Performing | Address | City/State/Zipcode | Phone Number | | Organization | | | | + +---------+ + + | EXTERNAL LAB | | | | + +---------+ + + documented in this encounter Visit Diagnoses Not on filedocumented in this encounter
--- OUTSIDE RECORDS SUMMARY | ~2019-06-14 | XMS | Encounter Summary ---
Demographics + + + | Address | [address] | | | [place] [address] | + + + | Home Phone | | + + + | Preferred Language | Unknown | + + + | Marital Status | Single | + + + | Nondenominational Affiliation | Unknown | + + + | Race | Unknown | + + + | Ethnic Group | Unknown | + + + Author + + + | Author | [facility] | | | and [place] | + + + | Organization | [facility] | | | [...] Team Providers + +------+ + | Care Silverware Washer Name | Role | Phone | + +------+ + | Iqra Peralta MD | PCP | | + +------+ + Encounter Details +--------+ + + + + | Date | Type | Department | Care Team | Description | +--------+ + + + + | 04/13/ | Abstract | [facility] [place] | Vibhathalgeno, | | | 2017 | | NEPHROLOGY [address] | [address] | | | | | [address] | [address], [place] | | | | | [place] | [address] [place] | | | | | [address] | [address] | | | | | [phone] | | | +--------+ + + + [...] [place] | | | | | | [address] | | | | | | | | +--------+---------+ + + + | 01/18/ | Office | Sleep Medicine | Jermaine Fairchild | | | 2019 | Visit | | MD [address] | | | | | | [place] | | | | | | [place] [address] | | | | | | [phone] | | | | | | | | +--------+---------+ + + + documented as of this encounter Procedures + +--------+ + + + | Procedure Name | Priori | Date/Time | Associated Diagnosis | Comments | | | ty | | | | + +--------+ + + + | EXTERNAL LAB: HORTENCIA | Routin | 04/12/2018 | | Results for this | | | e | | | procedure are in the | | | | | | results section. | + +--------+ + + + | EXTERNAL LAB: | Routin | 04/12/2018 | | Results for this | | GLUCOSE | e | | | procedure are in the | | | | | | results section. | + +--------+ + + + | EXTERNAL LAB: | Routin | 04/12/2018 | | Results for this | | ALBUMIN | e | | | procedure are in the | | | | | | results section. | + +--------+ + + + | EXTERNAL LAB: | Routin | 04/12/2018 | | Results for this | | PHOSPHORUS | e | | | procedure are in the | | | | | | results section. | + +--------+ + + + | EXTERNAL LAB: | Routin | 04/12/2018 | | Results for this | | CALCIUM | e | | | procedure are in the | | | | | | results section. | + +--------+ + + + | EXTERNAL LAB: CARBON | Routin | 04/12/2018 | | Results for this | | DIOXIDE | e | | | procedure are in the | | | | | | results section. | + +--------+ + + + | EXTERNAL LAB: | Routin | 04/12/2018 | | Results for this | | CHLORIDE | e | | | procedure are in the | | | | | | results section. | + +--------+ + + + | EXTERNAL LAB: | Routin | 04/12/2018 | | Results for this | | POTASSIUM | e | | | procedure are in the | | | | | | results section. | + +--------+ + + + | EXTERNAL LAB: SODIUM | Routin | 04/12/2018 | | Results for this | | | e | | | procedure are in the | | | | | | results section. | + +--------+ + + + | EXTERNAL LAB: | Routin | 04/12/2018 | | Results for this | | VITAMIN D, | e | | | procedure are in the | | 25-HYDROXY | | | | results section. | + +--------+ + + + | EXTERNAL LAB: | Routin | 04/12/2018 | | Results for this | | URINALYSIS | e | | | procedure are in the | | | | | | results section. | + +--------+ + + + | EXTERNAL LAB: PTH, | Routin | 04/12/2018 | | Results for this | | INTACT | e | | | procedure are in the | | | | | | results section. | + +--------+ + + + | EXTERNAL LAB: | Routin | 04/12/2018 | | Results for this | | PROTEIN/CREATININE | e | | | procedure are in the | | RATIO | | | | results section. | + +--------+ + + + | EXTERNAL LAB: CBC | Routin | 04/12/2018 | | Results for this | | | e | | | procedure are in the | | | | | | results section. | + +--------+ + + + | EXTERNAL LAB: EGFR | Routin | 04/12/2018 | | Results for this | | | e | | | procedure are in the | | | | | | results section. | + +--------+ + + + | EXTERNAL LAB: | Routin | 04/12/2018 | | Results for this | | CREATININE | e | | | procedure are in the | | | | | | results section. | + +--------+ + + + | URINALYSIS WITH | Routin | 04/12/2018 | | Results for this | | MICROSCOPIC | e | | | procedure are in the | | | | | | results section. | + +--------+ + + + documented in this encounter Results External Lab: Urinalysis (04/12/2018) + + + + + + | Component | Value | Ref Range | Performed | Pathologist | | | | | At | Signature | + + + + + + | UA Blood, | negative | | EXTERNAL | | | External | | | LAB | | + + + + + + | UA Glucose, | large | | EXTERNAL | | | External | | | LAB | | + + + + + + | UA Ketones, | negative | | EXTERNAL | | | External | | | LAB | | + + + + + + | UA Ph, | 5 | | EXTERNAL | | | External | | | LAB | | + + + + + + | UA | >300 | | EXTERNAL | | | Proteins, | | | LAB | | | External | | | | | + + + + + + | UA RBC, | 2 | | EXTERNAL | | | External | | | LAB | | + + + + + + | UA Specific | 1.026 | | EXTERNAL | | | [place], | | | LAB | | | External | | | | | + + + + + + | UA | negative | | EXTERNAL | | | Leukocyte | | | LAB | | | Esterase, | | | | | | External | | | | | + + + + + + + +---------+ + + | Performing | Address | City/State/Zipcode | Phone Number | | Organization | | | | + +---------+ + + | EXTERNAL LAB | | | | + +---------+ + + External Lab: Protein/Creatinine Ratio (04/12/2018) + + + + + + | Component | Value | Ref Range | Performed | Pathologist | | | | | At | Signature | + + + + + + | Protein/Cre | 3.572 (A) | 0.2 | | | | atinine | | | | | | Ratio, | | | | | | External | | | | | + + + + + + + + | Specimen | + + | | + + External Lab: PTH, Intact (04/12/2018) + +-------+ + + + | Component | Value | Ref Range | Performed | Pathologist | | | | | At | Signature | + +-------+ + + + | PTH Intact, | 43.22 | | | | | External | | | | | + +-------+ + + + + + | Specimen | + + | | + + Urinalysis With Microscopic (04/12/2018) + + + + + + | Component | Value | Ref Range | Performed | Pathologist | | | | | At | Signature | + + + + + + | WBC UA | 15 | /HPF | | | + + + + + + | Color, | Yellow | Light Yellow, | | | | Urine | | Yellow | | | + + + + + + | Clarity | Cloudy | | | | + + + + + + | BACTERIA UA | Negative | Negative /HPF | | | + + + + + + | Nitrite, | Negative | Negative | | | | Urine | | | | | + + + + + + | SQUAMOUS | 4 | /HPF | | | | EPITHELIAL | | | | | | UA | | | | | + + + + + + + + | Specimen | + + | Urine | + + External Lab: BUN (04/12/2018) + +-------+ + + + | Component | Value | Ref Range | Performed | Pathologist | | | | | At | Signature | + +-------+ + + + | BUN, | 18 | | EXTERNAL | | | External | | | LAB | | + +-------+ + + + + +---------+ + + | Performing | Address | City/State/Zipcode | Phone Number | | Organization | | | | + +---------+ + + | EXTERNAL LAB | | | | + +---------+ + + External Lab: Glucose (04/12/2018) + +-------+ + + + | Component | Value | Ref Range | Performed | Pathologist | | | | | At | Signature | + +-------+ + + + | Glucose, | 177 | | EXTERNAL | | | External | | | LAB | | + +-------+ + + + + +---------+ + + | Performing | Address | City/State/Zipcode | Phone Number | | Organization | | | | + +---------+ + + | EXTERNAL LAB | | | | + +---------+ + + External Lab: Albumin (04/12/2018) + +-------+ + + + | Component | Value | Ref Range | Performed | Pathologist | | | | | At | Signature | + +-------+ + + + | Albumin, | 3.6 | | EXTERNAL | | | External | | | LAB | | + +-------+ + + + + +---------+ + + | Performing | Address | City/State/Zipcode | Phone Number | | Organization | | | | + +---------+ + + | EXTERNAL LAB | | | | + +---------+ + + External Lab: Phosphorus (04/12/2018) + +-------+ + + + | Component | Value | Ref Range | Performed | Pathologist | | | | | At | Signature | + +-------+ + + + | Phosphorus, | 3.6 | | EXTERNAL | | | External | | | LAB | | + +-------+ + + + + +---------+ + + | Performing | Address | City/State/Zipcode | Phone Number | | Organization | | | | + +---------+ + + | EXTERNAL LAB | | | | + +---------+ + + External Lab: Calcium (04/12/2018) + +-------+ + + + | Component | Value | Ref Range | Performed | Pathologist | | | | | At | Signature | + +-------+ + + + | Calcium, | 9.6 | | EXTERNAL | | | External | | | LAB | | + +-------+ + + + + +---------+ + + | Performing | Address | City/State/Zipcode | Phone Number | | Organization | | | | + +---------+ + + | EXTERNAL LAB | | | | + +---------+ + + External Lab: Carbon Dioxide (04/12/2018) + +-------+ + + + | Component | Value | Ref Range | Performed | Pathologist | | | | | At | Signature | + +-------+ + + + | Carbon | 25 | | EXTERNAL | | | Dioxide, | | | LAB | | | External | | | | | + +-------+ + + + + +---------+ + + | Performing | Address | City/State/Zipcode | Phone Number | | Organization | | | | + +---------+ + + | EXTERNAL LAB | | | | + +---------+ + + External Lab: Chloride (04/12/2018) + +-------+ + + + | Component | Value | Ref Range | Performed | Pathologist | | | | | At | Signature | + +-------+ + + + | Chloride, | 102 | | EXTERNAL | | | External | | | LAB | | + +-------+ + + + + +---------+ + + | Performing | Address | City/State/Zipcode | Phone Number | | Organization | | | | + +---------+ + + | EXTERNAL LAB | | | | + +---------+ + + External Lab: Potassium (04/12/2018) + +-------+ + + + | Component | Value | Ref Range | Performed | Pathologist | | | | | At | Signature | + +-------+ + + + | Potassium, | 4.3 | | EXTERNAL | | | External | | | LAB | | + +-------+ + + + + +---------+ + + | Performing | Address | City/State/Zipcode | Phone Number | | Organization | | | | + +---------+ + + | EXTERNAL LAB | | | | + +---------+ + + External Lab: Sodium (04/12/2018) + +-------+ + + + | Component | Value | Ref Range | Performed | Pathologist | | | | | At | Signature | + +-------+ + + + | Sodium, | 142 | | EXTERNAL | | | External | | | LAB | | + +-------+ + + + + +---------+ + + | Performing | Address | City/State/Zipcode | Phone Number | | Organization | | | | + +---------+ + + | EXTERNAL LAB | | | | + +---------+ + + External Lab: Vitamin D, 25-Hydroxy (04/12/2018) + +-------+ + + + | Component | Value | Ref Range | Performed | Pathologist | | | | | At | Signature | + +-------+ + + + | Vitamin D, | 39 | | EXTERNAL | | | 25-Hydroxy, | | | LAB | | | External | | | | | + +-------+ + + + + + | Specimen | + + | Blood | + + + +---------+ + + | Performing | Address | City/State/Zipcode | Phone Number | | Organization | | | | + +---------+ + + | EXTERNAL LAB | | | | + +---------+ + + External Lab: CBC (04/12/2018) + +-------+ + + + | Component | Value | Ref Range | Performed | Pathologist | | | | | At | Signature | + +-------+ + + + | WBC, | 11 | | EXTERNAL | | | External | | | LAB | | + +-------+ + + + | HGB, | 16.1 | | EXTERNAL | | | External | | | LAB | | + +-------+ + + + | HCT, | 47.7 | | EXTERNAL | | | External | | | LAB | | + +-------+ + + + | PLT, | 279 | | EXTERNAL | | | External | | | LAB | | + +-------+ + + + | RBC, | 4.84 | | EXTERNAL | | | External | | | LAB | | + +-------+ + + + | MCV, | 99 | | EXTERNAL | | | External | | | LAB | | + +-------+ + + + | RDW, | 17 | | EXTERNAL | | | External | | | LAB | | + +-------+ + + + + +---------+ + + | Performing | Address | City/State/Zipcode | Phone Number | | Organization | | | | + +---------+ + + | EXTERNAL LAB | | | | + +---------+ + + External Lab: eGFR (04/12/2018) + +-------+ + + + | Component | Value | Ref Range | Performed | Pathologist | | | | | At | Signature | + +-------+ + + + | eGFR, | 104 | | EXTERNAL | | | External | | | LAB | | + +-------+ + + + + + | Specimen | + + | Blood | + + + +---------+ + + | Performing | Address | City/State/Zipcode | Phone Number | | Organization | | | | + +---------+ + + | EXTERNAL LAB | | | | + +---------+ + + External Lab: Creatinine (04/12/2018) + +-------+ + + + | Component | Value | Ref Range | Performed | Pathologist | | | | | At | Signature | + +-------+ + + + | Creatinine, | 0.61 | | EXTERNAL | | | External | | | LAB | | + +-------+ + + + + + | Specimen | + + | Blood | + + + +---------+ + + | Performing | Address | City/State/Zipcode | Phone Number | | Organization | | | | + +---------+ + + | EXTERNAL LAB | | | | + +---------+ + + documented in this encounter Visit Diagnoses Not on filedocumented in this encounter"
--- OUTSIDE RECORDS SUMMARY | ~2019-06-14 | XMS | Encounter Summary ---
Demographics + + + | Address | [address] | | | [place] [address] | + + + | Home Phone | | + + + | Preferred Language | Unknown | + + + | Marital Status | Single | + + + | Taoist Affiliation | Unknown | + + + | Race | Unknown | + + + | Ethnic Group | Unknown | + + + Author + + + | Author | [facility] | | | and [place] | + + + | Organization | [facility] | | [...] Team Providers + +------+ + | Care Transmission Builder Name | Role | Phone | + [...] Description | +--------+--------+ + + + | 10/28/ | Refill | [facility] [place] | Adolfo Zazueta, | Medication Refill | | 2016 | | PULMONARY [address] | MD [address] | | | | | [place], | [place], [place] | | | | | [place] [address] | [address] | | | | | [phone] | | | +--------+--------+ + + + [...] | Visit | | MD [address] | | | | | | [place] | | | | | | [address] | | | | | | | | +--------+---------+ + + + | 01/18/ | Office | Sleep Medicine | Jermaine Fairchild | | | 2019 | Visit | | MD Lars [address] | | | | | | [place] [facility] | | | | | | [place] [address] | | | | | | [phone] | | | | | | | | +--------+---------+ + + + documented as of this encounter Visit Diagnoses + + | Diagnosis | + + | Mild persistent asthma without complication Unspecified asthma | + + documented in this encounter"
--- OUTSIDE RECORDS SUMMARY | ~2019-06-14 | XMS | Encounter Summary ---
Demographics + + + | Address | [address] | | | [place] [address] | + + + | Home Phone | | + + + | Preferred Language | Unknown | + + + | Marital Status | Single | + + + | Islam Affiliation | Unknown | + + + | Race | Unknown | + + + | Ethnic Group | Unknown | + + + Author + + + | Author | [facility] | | | and [place] | + + + | Organization | [facility] | | | [...] Team Providers + +------+ + | Care Bench Inspector Name | Role | Phone | [...] Description | +--------+---------+ + + + | 10/22/ | Office | [facility] | Jermaine Fairchild | ANNABEL (obstructive | | 2017 | Visit | SLEEP DISORDER [address] | MD [address] | sleep apnea) | | | | [address] [place] | [address] [place] | (Primary Dx); | | | | [place] [address] | [place] [address] | Obesity | | | | [phone] | [phone] | hypoventilation | | | | | [...] + | Blood Pressure | 140/80 | 10/22/2017 2:11 PM | | | | | PDT | | + + + + + | Pulse | 99 | 10/22/2017 2:11 PM | | | | | PDT | | + + + + + | Temperature | - | - | | + + + + + | Respiratory Rate | 20 | 10/22/2017 2:11 PM | | | | | PDT | | + + + + + | Oxygen Saturation | 99% | 10/22/2017 2:11 PM | | | | | PDT | | + + + + + | Inhaled Oxygen | - | - | | | Concentration | | | | + + + + + | Weight | 188.4 kg (415 lb 5.6 | 10/22/2017 2:11 PM | | | | oz) | PDT | | + + + + + | Height | - | - | | + + + + + | Body Mass Index | 75.97 | 07/10/2017 2:50 PM | | | | | PST | | + + + + + documented in this encounter Progress Notes Jermaine Fairchild Jr., MD - 10/22/2017 1:45 PM PDT I first saw this patient [...] between 92 and 113) sinus tachycardia). Obstructive apneas, no central apneas, no mixed apneas. There were 114 obst ructive hypopneas. The Apnea Hypopnea Index test was elevated at 22.8. Oxygen desaturation was noted with a stephanie saturation of 70.2%. The periodic limb movement arousal index was a lso elevated at 22. The patient was suspected of having obstructive sleep apnea, alveolar h ypoventilation of obesity, and periodic limb movements of sleep. On March 21, 2003 bileve l positive very pressure titration study was performed. The patient was titrated to bilevel positive airway pressure of 16/11 which resulted in an Apnea Hypopnea Index index of less t palacios 5. Mild oxygen desaturation (80-90%) was noted. The periodic limb movement arousal ind ex was normal at 1.3. The patient was treated with CPAP 16 cm and it was suggested that she consider bariatric surgery for her morbid obesity. The patient was very adherent with CPAP therapy. Gastric banding surgery. Which resulted in a weight loss in excess of 200 pounds . She felt that CPAP was too strong and discontinued it. I reevaluated her in 2007. Diagn ostic nocturnal polysomnography performed in September 19, 2007 after 220 weight loss demonstrat ed a latency to sleep onset was normal at 11 minutes. The sleep efficiency was normal at 92 %. All stages of sleep were noted and the latency to rapid eye movement sleep was normal at 129 minutes. Sleep was quite fragmented with an arousal index of 51.6. The Apnea Hypopnea Index was elevated at 29.1. Oxygen desaturation to 77% was noted and the patient spent 30. 5 minutes with an oxygen saturation of less than 90%. Periodic limb movement arousal index was also elevated at 17.9. On September 20, 2007 polysomnographically guided CPAP titration was performed. This indicated that CPAP in the 7-9 cm range would likely control obstructive b reathing. Periodic limb movements of sleep were noted and they do fragmented sleep. CPAP w as prescribed at 8 cm. Pramipexole was also [...] being considered for gastric bypass surgery. On S 2011 a ResMed S9 auto titrating CPAP [...] pressure adherence clinic on October 01, 2016. e was on a ResMed S9 auto titrating [...] 371 pounds. She was recently seen at [facility] in [place] where she was told that no further bariatric surgery could be done. Repeat PSG guided PAP titration was performed on 09/21/2017. This revealed that she required iVAPS: Target Va 4.5, Tgt TN 20; EPAP 11; Max PS 16cm; Min PS 6cm; TiMin 0.8; Rise Time 40 0; Trigger M, Cycle M with oxygen 5 l/min is advised to control ANNABEL and Obesity Hypoventilat ion. This was prescribed and she has been using this for the last month. It was also sugges laurel that she re-explore the possibility of further bariatric surgery. She states she now mcgowan s a new primary care physician Dr. Peralta has arranged for bariatric consultation to [facility] in [place]. She has worn her Resmed VPAPST-A(iVAPS) for 27 out of the last 27 days. This is set at EPA P of 11 cm, pressure support minimum 6 cm, pressure support maximum 16 cm, and alveolar vent ilation 4.5 L/minute. She is averaging 6 hours and 12 minutes of use per day. The [facility] ed Apnea Hypopnea Index index is 0.8. She also reports on her other CPAP unit and she watch es TV in case she should all asleep. BP 140/80 | Pulse 99 | Resp 20 | Wt (!) 188.4 kg (415 lb 5.6 oz) | SpO2 99% | BMI 75.9 7 kg/m A: Obstructive sleep apnea and obesity hypoventilation: The patient appears to be doing rat her well at the present time. I've encouraged her to continue using iVAPS but I have encour aged her to try to get an hour or 2 more sleep at night. She will try to do this. I have a lso told her that I would support bariatric surgery and would be willing to write any letter s that would help her in this regard. P: No change in positive airway pressure therapy. She is to try to get 2 hours of sleep mo re per night. Follow-up in 2 months. Today, 15 minutes was spent face to face with the patient; the majority of time was spent c sharla regarding sleep+breathing issues. documented in th is encounter Plan of Treatment +--------+---------+ + + + | Date | Type | Specialty | Care Team | Description | +--------+---------+ + + + | 06/14/ | Office | Pulmonology | Adolfo Zazueta, | | | 2019 | Visit | | MD Jac JOHNSON | | | | | | [place] | | | | | | [id number] | | | | | | | | +--------+---------+ + + + | 01/18/ | Office | Sleep Medicine | Jermaine Fairchild | | | 2019 | Visit | | MD Jac [place] | | | | | | [place] | | | | | | [place] [address] | | | | | | [phone] | | | | | | | | +--------+---------+ + + + documented as of this encounter Visit Diagnoses + + | Diagnosis | + + | ANNABEL (obstructive sleep apnea) - Primary Obstructive sleep apnea (adult) (pediatric) | + + | Obesity hypoventilation syndrome (HCC) Obesity hypoventilation syndrome | + + documented in this encounter"
--- OUTSIDE RECORDS SUMMARY | ~2019-06-14 | XMS | Encounter Summary ---
Demographics + + + | Address | [address] | | | [place] [address] | + + + | Home Phone | | + + + | Preferred Language | Unknown | + + + | Marital Status | Single | + + + | Sikh Affiliation | NRP | + + + | Race | White | + + + | Ethnic Group | Not or | + + + Author + + + | Author | [facility] | + + + | Organization | [facility] | + + + [...] Team Providers + +------+ + | Care Assembler Truck Trailer Name | Role | Phone | + +------+ + | Iqra Peralta MD | PCP | | + +------+ + Encounter Details +--------+ + + + + | Date | Type | Department | Care Team | Description | +--------+ + + + + | 07/16/ | Abstract | Cardiology in | Kath Boyle | | | 2019 | | [facility] | [address]A [address] | | | | | [place] at | [address] [place], | | | | | [place] [address] [address] | [place] [address] | | | | | [address] | [phone] | | | | | [place], [place] | | | | | | [address] | | | | | | [phone] | | | +--------+ + + + [...]
--- OUTSIDE RECORDS SUMMARY | ~2019-06-14 | XMS | Encounter Summary ---
Demographics + + + | Address | [address] | | | [place] [address] | + + + | Home Phone | | + + + | Preferred Language | Unknown | + + + | Marital Status | Single | + + + | Temple Affiliation | NRP | + + + [...] Team Providers + +------+ + | Care Development Architect Name | Role | Phone | [...] | | | | | | | [facility] | | [facility] | [facility] | | | | | | | [facility], | | | | | | | [address] | | | | | | | [place], [place] | | | | | | | [address] | | | | | | | Phone: | | | | | | | [phone] | | | | | | | Fax: | | | | | | | [phone] | +--------+--------+ + + + + Encounter Details +--------+---------+ + + + | Date | Type | Department | Care Team | Description | +--------+---------+ + + + | 11/03/ | Office | Digestive Health | Angy Pelletier, | Morbid obesity with | | 2013 | Visit | [facility] [address] | BMI of 70 and over, | | | | [address] | [address] | adult (HCC) (Primary | | | | Mailcode: Center | [place], [place] | Dx); Hx of | | | | for Health and | [id number] | laparoscopic gastric | | | | Healing, [address] | | banding | | | | [place], [place] | | | | | | [address] | | | | | | [phone] | | | +--------+---------+ + + + [...] + + + + | Weight | 195.5 kg (431 lb) | 11/03/2013 11:36 AM | | | | | PDT | | + + + + + | Height | 160 cm (5' 3") | 11/03/2013 11:36 AM | | | | | PDT | | + + + + + | Body Mass Index | 76.35 | 11/03/2013 11:36 AM | | | | | PDT | | + + + + + documented in this encounter Progress Notes Angy Pelletier, RD - 11/03/2013 11:40 AM PDTFormatting of this note might be different fro m the original. Referring Provider: Bassam Ross DO [facility], Pre-Bariatric Surgery Visit Follow-up diet consult prior to having gastric sleeve (revision from lap-band - 05/13/2004; removed in 2011). Documented Time of Visit: 11:38 to 12:00 (22 minutes afla-dp-hpub with patient) SUBJECTIVE: Brought in notebook; has questions. Has eliminated soda (was drinking up to 88 oz/d of regu lar soda). Has been eating frozen entrees w/ ~350 kcal & 17 g pro. Has cut back on coffee - only has latte once a week but it's decaf & SF. Bought flintstone's, citracal petites, & sub lingual vit B12. Goal is 22 lb total wt loss pre-surgery per MEMORIAL DESIGNER note. Has been fl uids from meals (never started drinking w/ meals after 1st lap band). Started eating Tristanian y ogurt & really likes it. Has not been eating in front of computer or TV; is eating meals w/ 15yo daughter. Is practicing mindful eating. Diet recall (yesterday): B: banana & Tristanian yogurt S: string cheese L: turkey wrap (fat-free tortilla wrap w/ low-fat cream cheese & turkey) D: Lean Cuisine lasagna (often w/ salad) S: popcorn (fat-free microwave) - at a hotel (was in town for appts today) Fluids: water (> 64 oz/d), diet vitamin water (16 oz yesterday); diluted apple juice (today ; this is rare), occ diet flavored water (not carbonated); no soda; latte (SF, nonfat, decaf , 1/wk) Food Allergies: No Current Physical Activity: Has started chair aerobics w/ bible study group - 3x/week OBJECTIVE: Height: Ht Readings from Last 1 Encounters: 11/03/13 1.6 m (5' 3") Weight: Wt Readings from Last 2 Encounters: 11/03/13 195.5 kg (431 lb) 09/21/13 203.257 kg (448 lb 1.6 oz) Body mass index is 76.37 kg/(m^2). Weight change since last nutrition appointment: 17 lb wt loss in past ~6 weeks Past Medical History: Past Medical History Diagnosis Date Essential hypertension, benign Shortness of breath Asthma Cough ANNABEL (obstructive sleep apnea) CPAP/BiPAP dependence Murmur Leaking of urine Abnormal ThinPrep Pap test of vagina Anxiety Depression Bipolar disorder OCD (obsessive compulsive disorder) Thyroid disease Hx of laparoscopic gastric banding 09/22/2013 Morbid obesity with BMI of 70 and over, adult 09/22/2013 Medications: See list in Epic snap shot Medications for Diabetes: n/a Dietary Supplements: Multivitamin, Calcium, vit D, B12 Labs: see Results Review for current labs (if available). Nutrition Diagnosis: Obesity as evidenced by BMI of 76.3. Pre-Surgery Diet: Provided written diet suggestions to help patient lose weight before surgery. -Eat within one hour of waking, then every 3-4 waking hours -Include protein with all meals & snacks -Use healthy plate model or frozen entree (~300 calories, < 600 mg sodium) at lunch & dinn er -Begin keeping daily food logs if struggling to meet weight loss goal -Choose foods & beverages with < 14 g sugar & < 5 g fat per serving -Continue to avoid liquid calories, carbonation, & caffeine Discussed behavior changes to practice before surgery to prepare for surgery. -Continue fluids from meals by 30 minutes before and after -Continue to sip fluids throughout the day, aim for 64 oz/day (non-caloric, non-caffeinate d, non-carbonated) -Continue practicing mindful eating Written Education Provided/Reviewed: Reviewed the bariatric surgery notebook with the patient, including post-surgery diet progr ession, sample menus, food items, and vitamin and mineral supplements needed after surgery. Emphasized the importance of a regular physical activity program of 30-60 minutes per day to maintain weight loss post-surgery. Patient's Comprehension: The patient is: Receptive Stage of change: Action Barrier(s) to education: No Learning style: Patient is a Visual learner/Verbal learner Expected Outcome: I think the patient will do moderately if following all lifestyle and be havioral changes discussed today. Pt has been making many positive changes, such as increasi ng physical activity, eliminating carbonation & liquid calories, eating more mindfully, & fo llowing the recommended meal plan. She has had excellent weight loss in the past month & is close to her 5% pre-surgery goal. Praised her for her progress. Answered her questions re: v it/min supplements post-surgery; reviewed guidelines in notebook. Anticipate continued good compliance. GOAL: The patient's goal is to have weight loss surgery to maintain weight loss and improve other health conditions. 1. Continue to practice behavioral changes to prepare for surgery. 2. Increase physical activity. 3. Review all information provided for post-surgery diet progression. 4. Call dietitian with any questions. 5. Follow up with dietitian in 4 weeks 6. Contact information was provided. Angy Pelletier RD, LD Pager [phone] documented in this en counter Plan of Treatment Not on filedocumented as of this encounter Procedures + +--------+ + + + | Procedure Name | Priori | Date/Time | Associated Diagnosis | Comments | | | ty | | | | + +--------+ + + + | [facility] MNT RE-ASSESSMNT | Routin | 11/03/2013 | Morbid obesity | | | X15MIN | e | 12:22 PM | with BMI of 70 and | | | | | PDT | over, adult (HCC) | | | | | | Hx of laparoscopic | | | | | | gastric banding | | + +--------+ + + + documented in this encounter Visit Diagnoses + + | Diagnosis | + + | Morbid obesity with BMI of 70 and over, adult ([facility]) - Primary | + + | Hx of laparoscopic gastric banding Bariatric surgery status | + + documented in this encounter
--- OUTSIDE RECORDS SUMMARY | ~2019-06-14 | XMS | Encounter Summary ---
Demographics + + + | Address | [address] | | | [place] [address] | + + + | Home Phone | | + + + | Preferred Language | Unknown | + + + | Marital Status | Single | + + + | Voodoo Affiliation | NRP | + + + [...] | + + +---------+ + | Lana Woodhull | ECON | Unknown | | + + +---------+ + Care Team Providers + +------+ + | Care Septic Tank Cleaner Name | Role | Phone | + +------+ + | Iqra Peralta MD | PCP | | + +------+ + Encounter Details +--------+ + + + + | Date | Type | Department | Care Team | Description | +--------+ + + + + | 09/16/ | Procedure | [id number] | | | | 2019 | Pass | [address] | | | | | | Rd [facility] | | | | | | Hospital Admitting | | | | | | Desk Located on the | | | | | | 9th floor | | | | | | [place], [place] | | | | | | [address] | | | +--------+ + + + [...]
--- OUTSIDE RECORDS SUMMARY | ~2019-06-14 | XMS | Encounter Summary ---
Demographics + + + | Address | [address] | | | [place] [address] | + + + | Home Phone | | + + + | Preferred Language | Unknown | + + + | Marital Status | Single | + + + | Mandaeism Affiliation | NRP | + + + [...] | + + +---------+ + | Lana Marissa | ECON | Unknown | | + + +---------+ + Care Team Providers + +------+ + | Care Director Of Creative Services Name | Role | Phone | + [...] + + + + | 02/07/ | Anesthesia | 6A Intra Op [id number] | Karuna Rinaldi, | | | 2015 | Event | [facility] | [address] | | | | | [place] [facility] | [address] | | | | | Hospital Admitting | [facility] [place] | | | | | Desk Located on the | [address] | | | | | 9th floor | [phone] | | | | | [place], [place] | | | | | | [address] | Radha Chan, | | | | | | ,PhD [address] | | | | | | [address] | | | | | | [place], [place] | | | | | | [address] | | | | | | [phone] | | | | | | | | +--------+ + + + + Anesthesia Record + + + + + | Procedure Name | Responsible | Anesthesia Start | Anesthesia Stop Time | | | Anesthesiologist | Time | | + + + + + | LAPAROSCOPIC SLEEVE | Karuna Rinaldi MD | 02/07/15 0723 | 02/07/15 0940 | | GASTRECTOMY | | | | | Specimen to | | | | | Pathology x 1 (TY) | | | | | (N/A Abdomen) | | | | + + + + + +----+---+ + + | Da | T | Event | Comment | | te | i | | | | | m | | | | | e | | | +----+---+ + + | 09 | 0 | An Start | | | /0 | 7 | | | | 9/ | 2 | | | | 20 | 3 | | | | 15 | | | | +----+---+ + + | | 0 | An Start | | | | 7 | Data | | | | 2 | | | | | 9 | | | +----+---+ + + | | 0 | Vitals | Monitors applied Vital signs checked Patient ready for anesthesia | | | 7 | Checked | | | | 3 | | | | | 0 | | | +----+---+ + + | | 0 | Std. Airway | | | | 7 | Mgt. | | | | 3 | | | | | 5 | | | +----+---+ + + | | 0 | Ready | | | | 7 | | | | | 4 | | | | | 6 | | | +----+---+ + + | | 0 | Abx held | Antibiotics not indicated for procedure | | | 8 | Not Ordered | | | | 0 | | | | | 5 | | | +----+---+ + + | | 0 | Incision | | | | 8 | | | | | 1 | | | | | 2 | | | +----+---+ + + | | 0 | Quick Note | Esophageal bougie removed per surgeon request. Bed leveled. | | | 9 | | | | | 0 | | | | | 6 | | | +----+---+ + + | | 0 | An Extubate | Neuromuscular function Intact. Pharynx suctioned. Patient obeys | | | 9 | | commands. Adequate pulmonary mechanics. | | | 2 | | | | | 6 | | | +----+---+ + + | | 0 | an stop | | | | 9 | data | | | | 3 | | | | | 1 | | | +----+---+ + + | | 0 | Anesthesia | | | | 9 | End | | | | 4 | | | | | 0 | | | +----+---+ + + +------+ | Meds | +------+ + + + | Name | Total | + + + | rocuronium | 80 mg | + + + | fentaNYL | 250 mcg | + + + | propofol | 200 mg | + + + | succinylcholine | 180 mg | + + + | PHENYLEPHrine | 100 mcg | + + + | dexamethasone | 4 mg | + + + | acetaminophen PO | 650 mg | + + + | ondansetron | 4 mg | + + + | neostigmine | 5 mg | + + + | glycopyrrolate | 0.8 mg | + + + | ketorolac | 30 mg | + + + | LR | 400 mL | + + + | lactated ringers IV | 1,000 mL | + + + + + | Name | + + | O2 FR Avance (Total Liters) | + + | Air FR Avance (l/min) | + + | Insp Sevo | + + | Et Sevo | + + | EtN2O % | + + | Insp N2O % | + + + + | No blood administrations on file. | + + +--------+ + + + | Type | Details | Placement | Removal | +--------+ + + + | RETIRE | 08/23/14; 1100; 03/19/17 | 08/23/14 1100 by | 03/19/17 1622 by | | D - | (Automatic cleanup per RA | Astrid Berrios, | Discontinued After | | Periph | 3006--contact admin for | CLIENT EXPERIENCE MANAGER | Discharge | | eral | questions.); 1622 (Automatic | | | | Line | cleanup per RA 3006--contact | | | | | admin for questions.); No; 20; | | | | | Right; Wrist; None; No; Positive; | | | | | 2 | | | +--------+ + + + | RETIRE | 08/23/14; 1126; Trocar incision | 08/23/14 1126 by | 03/19/17 1622 by | | D - | sites x 6; No; Bilateral:; | Tan Shearer RN | Discontinued After | | Incisi | abdomen; 03/19/17 (Automatic | | Discharge | | on | cleanup per RA 3006--contact | | | | | admin for questions.); 1622 | | | | | (Automatic cleanup per RA | | | | | 3006--contact admin for | | | | | questions.) | | | +--------+ + + + | Incisi | 02/07/15; Left; Lateral; abdomen; | 02/07/15 0000 by Melinda | 03/20/17 0659 by | | on | 03/20/17 (Automatic cleanup per | H KIM Wong | Discontinued After | | | RA 3006--contact admin for | | Discharge | | | questions.); 0659 (Automatic | | | | | cleanup per RA 3006--contact | | | | | admin for questions.) | | | +--------+ + + + | Incisi | 02/07/15; Midline; abdomen; | 02/07/15 0000 by Melinda | 03/20/17 0659 by | | on | 03/20/17 (Automatic cleanup per | H Marvin, RN | Discontinued After | | | RA 3006--contact admin for | | Discharge | | | questions.); 0659 (Automatic | | | | | cleanup per RA 3006--contact | | | | | admin for questions.) | | | +--------+ + + + | Incisi | 02/07/15; Right; Medial; abdomen; | 02/07/15 0000 by Melinda | 03/20/17 0659 by | | on | 03/20/17 (Automatic cleanup per | H KIM Wong | Discontinued After | | | RA 3006--contact admin for | | Discharge | | | questions.); 0659 (Automatic | | | | | cleanup per RA 3006--contact | | | | | admin for questions.) | | | +--------+ + + + | Incisi | 02/07/15; Right; Lateral; | 02/07/15 0000 by Melinda | 03/20/17 0659 by | | on | abdomen; 03/20/17 (Automatic | H KIM Wong | Discontinued After | | | cleanup per RA 3006--contact | | Discharge | | | admin for questions.); 0659 | | | | | (Automatic cleanup per RA | | | | | 3006--contact admin for | | | | | questions.) | | | +--------+ + + + | Incisi | 02/07/15; Midline, Upper; | 02/07/15 0000 by Melinda | 03/20/17 0659 by | | on | abdomen; 03/20/17 (Automatic | Rashaad Wong RN | Discontinued After | | | cleanup per RA 3006--contact | | Discharge | | | admin for questions.); 0659 | | | | | (Automatic cleanup per RA | | | | | 3006--contact admin for | | | | | questions.) | | | +--------+ + + + | Naso/O | 02/07/15; (present on PACU | 02/07/15 0000 by | 02/07/15 1500 by | | ro | admit); anesthesia ; Left Nare; | Crystal Harrell RN | Leda Pham, | | Tube | 02/07/15; 1500 | | RN | +--------+ + + + | Periph | 02/07/15; 0649; Kalpana Mcclendon | 02/07/15 0649 by | 02/08/15 1156 by | | kyle | RY ALVAREZ, PICC/ IV Therapy; Right; | Olivia Irwin | Agustina Mathis RN | | IV | Hand; 22 g; Lidocaine; No; | KIM Mcclendon | | | | Positive; 02/08/15; 1156 | | | +--------+ + + + | Periph | Radha Chan; Left; Hand; 20 g; | 02/07/1514 by | 02/07/15 1614 by | | eral | 02/07/15; 1614 | | Leda Pham, | | IV | | | RN | +--------+ + + + documented in this encounter Social [...] Diagnoses Not on filedocumented in this encounter Administered Medications + +--------+ +--------+------+------+ | Medication Order | MAR | Action | Dose | Rate | Site | | | Action | Date | | | | + +--------+ +--------+------+------+ | acetaminophen (TYLENOL) tablet | Given | 02/08/20 | 650 mg | | | | INTRAPROCEDURE PRN, Starting Thu | | 15 7:15 | | | | | 02/07/15 at 0715, Until Thu02/07/15 | | AM PDT | | | | | at 0932 | | | | | | + +--------+ +--------+------+------+ +---+---+ | | | +---+---+ + +-------+ +------+---+---+ | dexamethasone (DECADRON) | Given | 02/08/20 | 4 mg | | | | injection INTRAPROCEDURE PRN, | | 15 8:12 | | | | | Starting Thu02/07/15 at 0812, | | AM PDT | | | | | Until Thu02/07/15 at 0932 | | | | | | + +-------+ +------+---+---+ +---+---+ | | | +---+---+ + +-------+ +--------+---+---+ | fentaNYL citrate (PF) | Given | 02/08/20 | 50 mcg | | | | (SUBLIMAZE) injection | | 15 8:15 | | | | | INTRAPROCEDURE PRN, Starting Thu | | AM PDT | | | | | 02/07/15 at 0731, Until Thu02/07/15 | | | | | | | at 0932, sedation | | | | | | + +-------+ +--------+---+---+ +-------+ +---------+---+---+ | Given | 02/08/20 | 200 mcg | | | | | 15 7:31 | | | | | | AM PDT | | | | +-------+ +---------+---+---+ +---+---+ | | | +---+---+ + +-------+ +--------+---+---+ | glycopyrrolate (JENNIFER) | Given | 02/08/20 | 0.8 mg | | | | injection INTRAPROCEDURE PRN, | | 15 9:11 | | | | | Starting Thu02/07/15 at 0911, | | AM PDT | | | | | Until Thu02/07/15 at 0932 | | | | | | + +-------+ +--------+---+---+ +---+---+ | | | +---+---+ + +-------+ +-------+---+---+ | ketorolac (TORADOL) injection | Given | 02/08/20 | 30 mg | | | | INTRAPROCEDURE PRN, Starting Wed | | 15 9:13 | | | | | 02/07/15 at 0913, Until Thu02/07/15 | | AM PDT | | | | | at 0932, moderate pain | | | | | | + +-------+ +-------+---+---+ +---+---+ | | | +---+---+ + +---------+ +---+---+---+ | lactated ringers IV 10 mL/hr, | New Bag | 02/08/20 | | | | | intravenous, PROCEDURE | | 15 8:08 | | | | | CONTINUOUS, Starting 02/07/15 | | AM PDT | | | | | at 0630, Until Thu02/07/15 at 1514 | | | | | | + +---------+ +---+---+---+ + + +---+---+---+ | given by anesthesiology | 02/08/20 | | | | | | 15 8:07 | | | | | | AM PDT | | | | + + +---+---+---+ | New Bag | 02/08/20 | | | | | | 15 7:22 | | | | | | AM PDT | | | | + + +---+---+---+ +---+---+ | | | +---+---+ + +---------+ +---+---+---+ | lactated ringers IV | New Bag | 02/08/20 | | | | | INTRAPROCEDURE CONTINUOUS PRN, | | 15 7:46 | | | | | Starting Thu02/07/15 at 0746, | | AM PDT | | | | | Until Thu02/07/15 at 0932 | | | | | | + +---------+ +---+---+---+ +---+---+ | | | +---+---+ + +-------+ +------+---+---+ | neostigmine (PROSTIGMIN) | Given | 02/08/20 | 5 mg | | | | injection intravenous, | | 15 9:11 | | | | | INTRAPROCEDURE PRN, Starting Wed | | AM PDT | | | | | 02/07/15 at 0911, Until 02/07/15 | | | | | | | at 0932 | | | | | | + +-------+ +------+---+---+ +---+---+ | | | +---+---+ + +-------+ +------+---+---+ | ondansetron (ZOFRAN) injection | Given | 02/08/20 | 4 mg | | | | INTRAPROCEDURE PRN, Starting Wed | | 15 9:08 | | | | | 02/07/15 at 0908, Until Thu02/07/15 | | AM PDT | | | | | at 0932 | | | | | | + +-------+ +------+---+---+ +---+---+ | | | +---+---+ + +-------+ +---------+---+---+ | PHENYLEPHrine 100 mcg/mL IV | Given | 02/08/20 | 100 mcg | | | | syringe INTRAPROCEDURE PRN, | | 15 7:55 | | | | | Starting Thu02/07/15 at 0755, | | AM PDT | | | | | Until Thu02/07/15 at 0932 | | | | | | + +-------+ +---------+---+---+ +---+---+ | | | +---+---+ + +-------+ +--------+---+---+ | propofol INTRAPROCEDURE PRN, | Given | 02/08/20 | 200 mg | | | | Starting Thu02/07/15 at 0732, | | 15 7:32 | | | | | Until Thu02/07/15 at 0932 | | AM PDT | | | | + +-------+ +--------+---+---+ +---+---+ | | | +---+---+ + +-------+ +-------+---+---+ | rocuronium (ZEMURON) injection | Given | 02/08/20 | 20 mg | | | | INTRAPROCEDURE PRN, Starting Thu | | 15 8:56 | | | | | 02/07/15 at 0748, Until Thu02/07/15 | | AM PDT | | | | | at 0932, Neuromuscular block | | | | | | + +-------+ +-------+---+---+ +-------+ +-------+---+---+ | Given | 02/08/20 | 60 mg | | | | | 15 7:48 | | | | | | AM PDT | | | | +-------+ +-------+---+---+ +---+---+ | | | +---+---+ + +-------+ +--------+---+---+ | SUCCINYLCHOLINE CHLORIDE 20 | Given | 02/08/20 | 180 mg | | | | MG/ML INJ (PROSED/RSI) | | 15 7:34 | | | | | INTRAPROCEDURE PRN, Starting Wed | | AM PDT | | | | | 02/07/15 at 0734, Until Thu02/07/15 | | | | | | | at 0932, Neuromuscular block | | | | | | + +-------+ +--------+---+---+ +---+---+ | | | +---+---+ documented in this encounter"
--- OUTSIDE RECORDS SUMMARY | ~2019-06-14 | XMS | Encounter Summary ---
Demographics + + + | Address | [address] | | | [place] [address] | + + + | Home Phone | | + + + | Preferred Language | Unknown | + + + | Marital Status | Single | + + + | Catholic Affiliation | Unknown | + + + | Race | Unknown | + + + | Ethnic Group | Unknown | + + + Author + + + | Author | [facility] | | | and [place] | + + + | Organization | [facility] | | | [...] Providers + +------+ + | Care Fire Prevention Inspector Name | Role | Phone | + +------+ + | Bassam Ross DO | PCP | | + +------+ + Encounter Details +--------+ + + + + | Date | Type | Department | Care Team | Description | +--------+ + + + + | 09/20/ | [facility] | [facility] | Adolfo Zazueta, | Restrictive lung | | 2016 | Encounter | MED CTR PULMON[facility] | MD [address] | disease secondary to | | | | FUNCTION [address] | [place], [place] | obesity | | | | [place], | [address] | | | | | [place] [address] | | | | | | [phone] | | | +--------+ + + + [...] + + + +---------+ + + | acetaminophen | Take 650 mg by mouth | | 0 | | | | (TYLENOL) 325 mg | every 6 hours as | | | | 8 | | tablet | needed for Pain. | | | | | + + [...] + + + +---------+ + + | benzonatate | Take 100 mg by mouth | | 0 | | | | (TESSALON) 100 mg | 3 times daily as | | | | 8 | | capsule | needed for Cough. | | | | | + + + +---------+ + + | carvedilol (COREG) | Take 50 mg by mouth | | 0 | | | | 25 mg tablet | 2 times daily (with | | | | 8 | | | breakfast & dinner). | [...] + +---------+ + + | | Take 1 tablet by | | 0 | | | | [id number] | mouth Daily. | | | | 8 | | 6-B2 (CEREFOLIN) | | | | | | | 6-1-50-5 MG TABS | | | | | | + [...] + + | VENTOLIN HFA 108 | inhale 2 puffs by | 18 g | 1 | 10/25/19 | | | (90 BASE) MCG/ACT | mouth every 4 hours | | | 15 | 6 | | inhaler | if needed | | | | | + [...] [place] | | | | | | [id number] | | | | | | | | +--------+---------+ + + + | 01/18/ | Office | Sleep Medicine | Jermaine Fairchild | | 2019 | Visit | | MD Jac Sousa | | | | | | [place] | | | | | | [place] [address] | | | | | | [phone] | | | | | | | | +--------+---------+ + + + documented as of this encounter Procedures + +--------+ + + + | Procedure Name | Priori | Date/Time | Associated Diagnosis | Comments | | | ty | | | | + +--------+ + + + | PFT PULMONARY | LUIS ENRIQUE | 09/21/2015 | Restrictive lung | | | FUNCTION TESTING | | 12:09 PM | disease secondary to | | | ORDERS | | PDT | obesity | | + +--------+ + + + | DIAGNOSTIC REPORT - | | 09/21/2015 | | Results for this | | EXTERNAL SCAN | | 12:00 AM | | procedure are in the | | | | PDT | | results section. | + +--------+ + + + documented in this encounter Results DIAGNOSTIC REPORT - EXTERNAL SCAN (09/21/2015 12:00 AM PDT) + + + | Narrative | Performed At | + + + | Ordered by an | | | unspecified provider. | | + + + documented in this encounter Visit Diagnoses + + | Diagnosis | + + | Restrictive lung disease secondary to obesity Other diseases of lung, not elsewhere | | classified | + + documented in this encounter"
--- OUTSIDE RECORDS SUMMARY | ~2019-06-14 | XMS | Encounter Summary ---
Demographics + + + | Address | [address] | | | [place] [address] | + + + | Home Phone | | + + + | Preferred Language | Unknown | + + + | Marital Status | Single | + + + | Congregation Affiliation | NRP | + + + | Race | White | + + + | Ethnic Group | Not or | + + + Author + + + | Author | [facility] | + + + | Organization | [facility] | + + + | [...] | | + + +---------+ + | Alna Firestone | ECON | Unknown | | + + +---------+ + Care Team Providers + +------+ + | Care Floor Scrubber Name | Role | Phone | + +------+ + | Bassam Ross DO | PCP | | + +------+ + Encounter Details +--------+------+ + + + | Date | Type | Department | Care Team | Description | +--------+------+ + + + | 06/16/ | Lab | Laboratory at [facility] | | Essential | | 2018 | | [address] | | hypertension, | | | | [place], [place] | | benign; Sleep apnea, | | | | [address] | | unspecified type; | | | | [phone] | | Gastroesophageal | | | | [...] | | | | | | adult ([facility]); | | | | | | Diabetes mellitus | | | | | | type 2, | | | | | | diet-controlled | | | | | | ([facility]) | +--------+------+ + + + Social History [...] | CBC (HEMOGRAM) ONLY | Routin | 06/16/2017 | Essential | Results for this | | | e | 4:22 PM | hypertension, benign | procedure are in the | | | | PST | Sleep apnea, | results section. | | | | | unspecified type | | | | | | Gastroesophageal | | | | | | reflux disease, | | | | | | esophagitis presence | | | | | | not specified | | | | | | Vitamin D deficiency | | | | | | disease S/P | | | | | | laparoscopic sleeve | | | | | | gastrectomy Vitamin | | | | | | B 12 deficiency Hx | | | | | | of laparoscopic | | | | | | gastric banding | | | | | | Morbid obesity with | | | | | | BMI of 60.0-69.9, | | | | | | adult ([facility]) | | | | | | Diabetes mellitus | | | | | | type 2, | | | | | | diet-controlled | | | | | | (HCC) | | + +--------+ + + + | VITAMIN B1, WHOLE | Routin | 06/16/2017 | Essential | Results for this | | BLOOD | e | 4:22 PM | hypertension, benign | procedure are in the | | | | PST | Sleep apnea, | results section. | | | | | unspecified type | | | | | | Gastroesophageal | | | | | | reflux disease, | | | | | | esophagitis presence | | | | | | not specified | | | | | | Vitamin D deficiency | | | | | | disease S/P | | | | | | laparoscopic sleeve | | | | | | gastrectomy Vitamin | | | | | | B 12 deficiency Hx | | | | | | of laparoscopic | | | | | | gastric banding | | | | | | Morbid obesity with | | | | | | BMI of 60.0-69.9, | | | | | | adult (HCC) | | | | | | Diabetes mellitus | | | | | | type 2, | | | | | | diet-controlled | | | | | | (HCC) | | + +--------+ + + + | VITAMIN D, | Routin | 06/16/2017 | Essential | Results for this | | 25-HYDROXY, SERUM | e | 4:22 PM | hypertension, benign | procedure are in the | | | | PST | Sleep apnea, | results section. | | | | | unspecified type | | | | | | Gastroesophageal | | | | | | reflux disease, | | | | | | esophagitis presence | | | | | | not specified | | | | | | Vitamin D deficiency | | | | | | disease S/P | | | | | | laparoscopic sleeve | | | | | | gastrectomy Vitamin | | | | | | B 12 deficiency Hx | | | | | | of laparoscopic | | | | | | gastric banding | | | | | | Morbid obesity with | | | | | | BMI of 60.0-69.9, | | | | | | adult (HCC) | | | | | | Diabetes mellitus | | | | | | type 2, | | | | | | diet-controlled | | | | | | (HCC) | | + +--------+ + + + | BASIC METABOLIC SET | Routin | 06/16/2017 | Essential | Results for this | | (NA, K, CL, TCO2, | e | 4:22 PM | hypertension, benign | procedure are in the | | BUN, CR, GLU, CA) | | PST | Sleep apnea, | results section. | | | | | unspecified type | | | | | | Gastroesophageal | | | | | | reflux disease, | | | | | | esophagitis presence | | | | | | not specified | | | | | | Vitamin D deficiency | | | | | | disease S/P | | | | | | laparoscopic sleeve | | | | | | gastrectomy Vitamin | | | | | | B 12 deficiency Hx | | | | | | of laparoscopic | | | | | | gastric banding | | | | | | Morbid obesity with | | | | | | BMI of 60.0-69.9, | | | | | | adult ([facility]) | | | | | | Diabetes mellitus | | | | | | type 2, | | | | | | diet-controlled | | | | | | (HCC) | | + +--------+ + + + | CBC ONLY | Routin | 06/16/2017 | Essential | Results for this | | | e | 4:22 PM | hypertension, benign | procedure are in the | | | | PST | Sleep apnea, | results section. | | | | | unspecified type | | | | | | Gastroesophageal | | | | | | reflux disease, | | | | | | esophagitis presence | | | | | | not specified | | | | | | Vitamin D deficiency | | | | | | disease S/P | | | | | | laparoscopic sleeve | | | | | | gastrectomy Vitamin | | | | | | B 12 deficiency Hx | | | | | | of laparoscopic | | | | | | gastric banding | | | | | | Morbid obesity with | | | | | | BMI of 60.0-69.9, | | | | | | adult (HCC) | | | | | | Diabetes mellitus | | | | | | type 2, | | | | | | diet-controlled | | | | | | (HCC) | | + +--------+ + + + | FERRITIN | Routin | 06/16/2017 | Essential | Results for this | | | e | 4:22 PM | hypertension, benign | procedure are in the | | | | PST | Sleep apnea, | results section. | | | | | unspecified type | | | | | | Gastroesophageal | | | | | | reflux disease, | | | | | | esophagitis presence | | | | | | not specified | | | | | | Vitamin D deficiency | | | | | | disease S/P | | | | | | laparoscopic sleeve | | | | | | gastrectomy Vitamin | | | | | | B 12 deficiency Hx | | | | | | of laparoscopic | | | | | | gastric banding | | | | | | Morbid obesity with | | | | | | BMI of 60.0-69.9, | | | | | | adult (HCC) | | | | | | Diabetes mellitus | | | | | | type 2, | | | | | | diet-controlled | | | | | | (HCC) | | + +--------+ + + + | PTH, SERUM | Routin | 06/16/2017 | Essential | Results for this | | | e | 4:22 PM | hypertension, benign | procedure are in the | | | | PST | Sleep apnea, | results section. | | | | | unspecified type | | | | | | Gastroesophageal | | | | | | reflux disease, | | | | | | esophagitis presence | | | | | | not specified | | | | | | Vitamin D deficiency | | | | | | disease S/P | | | | | | laparoscopic sleeve | | | | | | gastrectomy Vitamin | | | | | | B 12 deficiency Hx | | | | | | of laparoscopic | | | | | | gastric banding | | | | | | Morbid obesity with | | | | | | BMI of 60.0-69.9, | | | | | | adult (HCC) | | | | | | Diabetes mellitus | | | | | | type 2, | | | | | | diet-controlled | | | | | | (HCC) | | + +--------+ + + + | TSH | Routin | 06/16/2017 | Essential | Results for this | | | e | 4:22 PM | hypertension, benign | procedure are in the | | | | PST | Sleep apnea, | results section. | | | | | unspecified type | | | | | | Gastroesophageal | | | | | | reflux disease, | | | | | | esophagitis presence | | | | | | not specified | | | | | | Vitamin D deficiency | | | | | | disease S/P | | | | | | laparoscopic sleeve | | | | | | gastrectomy Vitamin | | | | | | B 12 deficiency Hx | | | | | | of laparoscopic | | | | | | gastric banding | | | | | | Morbid obesity with | | | | | | BMI of 60.0-69.9, | | | | | | adult ([facility]) | | | | | | Diabetes mellitus | | | | | | type 2, | | | | | | diet-controlled | | | | | | (HCC) | | + +--------+ + + + | VITAMIN B-12 | Routin | 06/16/2017 | Essential | Results for this | | | e | 4:22 PM | hypertension, benign | procedure are in the | | | | PST | Sleep apnea, | results section. | | | | | unspecified type | | | | | | Gastroesophageal | | | | | | reflux disease, | | | | | | esophagitis presence | | | | | | not specified | | | | | | Vitamin D deficiency | | | | | | disease S/P | | | | | | laparoscopic sleeve | | | | | | gastrectomy Vitamin | | | | | | B 12 deficiency Hx | | | | | | of laparoscopic | | | | | | gastric banding | | | | | | Morbid obesity with | | | | | | BMI of 60.0-69.9, | | | | | | adult ([facility]) | | | | | | Diabetes mellitus | | | | | | type 2, | | | | | | diet-controlled | | | | | | (HCC) | | + +--------+ + + + | HEMOGLOBIN A1C, | Routin | 06/16/2017 | Essential | Results for this | | BLOOD | e | 4:22 PM | hypertension, benign | procedure are in the | | | | PST | Sleep apnea, | results section. | | | | | unspecified type | | | | | | Gastroesophageal | | | | | | reflux disease, | | | | | | esophagitis presence | | | | | | not specified | | | | | | Vitamin D deficiency | | | | | | disease S/P | | | | | | laparoscopic sleeve | | | | | | gastrectomy Vitamin | | | | | | B 12 deficiency Hx | | | | | | of laparoscopic | | | | | | gastric banding | | | | | | Morbid obesity with | | | | | | BMI of 60.0-69.9, | | | | | | adult (HCC) | | | | | | Diabetes mellitus | | | | | | type 2, | | | | | | diet-controlled | | | | | | (HCC) | | + +--------+ + + + documented in this encounter Results CBC (HEMOGRAM) ONLY (06/16/2017 4:22 PM PST) + + + + + + | Component | Value | Ref Range | Performed | Pathologist | | | | | At | Signature | + + + + + + | WHITE CELL | 12.04 (H) | 3.50 - 10.80 | [facility] | | | COUNT | | K/cu mm | LABORATORY | | | | | | SERVICES, | | | | | | CORE | | + + + + + + | RED CELL | 5.30 (H) | 4.00 - 5.20 | [facility] | | | COUNT | | M/cu mm | LABORATORY | | | | | | SERVICES, | | | | | | CORE | | + + + + + + | HEMOGLOBIN | 15.2 | 12.0 - 16.0 | [facility] | [...] 90.9 | 80.0 - 96.0 fL | [facility] | | | | | | LABORATORY | | | | | | SERVICES, | | | | | | CORE | | + + + + + + | MCHC | 31.5 | 33.0 - 35.5 | [facility] | [...] + + + + | PLATELET | 399 | 150 - 400 K/cu | [facility] [...] | + + + + + | [facility] | [address] | [place] [address] | | | SERVICES, CORE | [address] | | | + + + + + HEMOGLOBIN A1C, BLOOD (06/16/2017 4:22 PM PST) + + + + + + | Component | Value | Ref Range | Performed | Pathologist | | | | | At | Signature | + + + + + + | HEMOGLOBIN | 6.6 (H)Comment: Hgb A1C | <5.7 % | [...] | [facility] | | considered for monitoring buttermaker glycemic control in patients with: | LABORATORY [...] | + + + + + | [facility] | [address] | [place] [address] | | | SERVICES, SPECIAL | [address] | | | | IMM + COAG | | | | + + + + + TSH (06/16/2017 4:22 PM PST) + +-------+ + + + | Component | Value | Ref Range | Performed | Pathologist | | | | | At | Signature | + +-------+ + + + | TSH | 3.04 | 0.44 - 4.75 | [facility] | [...] | + + + + + | [facility] | [address] | [place] [address] | | | SERVICES, CORE | [address] | | | + + + + + FERRITIN (06/16/2017 4:22 PM PST) + + + + + + | Component | Value | Ref Range | Performed | Pathologist | | | | | At | Signature | + + + + + + | FERRITIN | 18 (L)Comment: Male and | 50 - 200 ng/mL [...] LABORATORY | [address] | [place] [address] | | | SERVICES, CORE | [address] | | | + + + + + BASIC METABOLIC SET (NA, K, CL, TCO2, BUN, CR, GLU, CA) (06/16/2017 4:22 PM PST) + + + + + + | Component | Value | Ref Range | Performed | Pathologist | | | | | At | Signature | + + + + + + | GLUCOSE, | 112 (H) | 70 - 99 [...] + + + + | CREATININE | 0.56 (L) | 0.60 - 1.10 | [facility] | | | PLASMA | | mg/dL | LABORATORY | | | (LAB) | | | SERVICES, | | | | | | CORE | | + + + + + + | EGFR | >60 | >60 mL/min | [facility] | | | - | | | LABORATORY | | | ISRAELI | | | SERVICES, | | | | | | CORE | | + + + + + + | EGFR NON | >60 | >60 mL/min | [facility] | | | -ALIZA | | | LABORATORY | | | RICAN | | | SERVICES, | | | | | | CORE | | + + + + + + | SODIUM, | 135 (L) | 136 - 145 | [facility] | | | PLASMA | | mmol/L | LABORATORY | | | (LAB) | | | SERVICES, | | | | | | CORE | | + + + + + + | POTASSIUM, | 4.6 | 3.4 - 5.0 | [facility] | [...] + + + | TOTAL CO2, | 30 | 21 - 32 mmol/L | [facility] | | | PLASMA | | | LABORATORY | | | (LAB) | | | SERVICES, | | | | | | CORE | | + + + + + + | CALCIUM, | 10.1 | 8.6 - 10.2 | [...] Performed At | + + + | Adult glucose reference range change effective 7-12-17. GFR is | [facility] | | estimated using the MDRD equation recommended by the National Kidney | LABORATORY | | Disease Education Program. Estimated GFR Interpretive Information: | SERVICES, CORE | | <60 mL/min/1.73 sq m Chronic Kidney Disease | | | <15 mL/min/1.73 sq m Kidney Failure Estimated | | | GFR greater that 60 mL/min/1.73 sq m is of limited clinical value. | | | The MDRD equation is not valid in the following situations: - | | | Patients under 18 years of age - Severe malnutrition or obesity - | | | Vegetarian diet - Rapidly changing kidney function | | + + + + + + + + | Performing | Address | City/State/Zipcode | Phone Number | | Organization | | | | + + + + + | [facility] | [address] | [place] [address] | | | TAV[place]ES, MIR | [address] | | | + + + + + VITAMIN B1, WHOLE BLOOD (06/16/2017 4:22 PM PST) + + + + + + | Component | Value | Ref Range | Performed | Pathologist | | | | | At | Signature | + + + + + + | VITAMIN B1, | 134Comment: INTERPRETIVE | 70 - 180 nmol/L | [...] | | | | | determined by [facility] | | | | | | Laboratories. See | | | | | | Compliance Statement B: | | | | | | [email or web address] | | | | | | by [employer],[address] | | | | | | [address],[place] | | | | | | [address] | | | | | | [phone]. | | | | | | lifepoint hospitalsIker MD, | | | | | | [...] [facility] | [address] | [place], [place] | | | [facility] | | [address] | | + + + + + VITAMIN D, 25-HYDROXY, SERUM (06/16/2017 4:22 PM PST) + +-------+ + + + | Component | Value | Ref Range | Performed | Pathologist | | | | | At | Signature | + +-------+ + + + | VITAMIN D | 44.8 | 30 - 80 ng/mL | [facility] [...] LABORATORY | [address] | [place] [address] | | | SERVICES, CORE | [address] | | | + + + + + VITAMIN B-12 (06/16/2017 4:22 PM PST) + +-------+ + + + | Component | Value | Ref Range | Performed | Pathologist | | | | | At | Signature | + +-------+ + + + | VITAMIN B12 | 602 | 193 - 986 pg/mL | [facility] [...] LABORATORY | [address] | [place] [address] | | | MIR [place] | [address] | | | + + + + + PTH, SERUM (06/16/2017 4:22 PM PST) + +-------+ + + + | Component | Value | Ref Range | Performed | Pathologist | | | | | At | Signature | + +-------+ + + + | PTH, SERUM | 52 | 18 - 88 pg/mL | [facility] [...] At | + + + | New Reference Range effective 17. | [facility] | | | LABORATORY | | | [address] | + + + + + + + + | Performing | Address | City/State/Zipcode | Phone Number | | Organization | | | | + + + + + | [facility] | [address] | [place] [address] | | | MIR [place] | [address] | | | + + + + + documented in this encounter Visit Diagnoses + + | Diagnosis | + + | Essential hypertension, benign | + + | Sleep apnea, unspecified type | + + | Gastroesophageal reflux disease, esophagitis presence not specified | + + | Vitamin D deficiency disease Unspecified vitamin D deficiency | + + | S/P laparoscopic sleeve gastrectomy | + + | Vitamin B 12 deficiency Other B-complex deficiencies | + + | Hx of laparoscopic gastric banding Bariatric surgery status | + + | Morbid obesity with BMI of 60.0-69.9, adult (HCC) | + + | Diabetes mellitus type 2, diet-controlled (HCC) Type II or unspecified type diabetes | | mellitus without mention of complication, not stated as uncontrolled | + + documented in this encounter"
--- OUTSIDE RECORDS SUMMARY | ~2019-06-14 | XMS | Encounter Summary ---
Demographics + + + | Address | [address] | | | [place] [address] | + + + | Home Phone [...] Providers + +------+ + | Care Music Assistant Name | Role | Phone | + +------+ + | Iqra Peralta MD | PCP | | + +------+ + Encounter Details +--------+ + + + + | Date | Type | Department | Care Team | Description | +--------+ + + + + | 07/20/ | Nursing Consultant | Cardiology in | Kath Boyel | | | 2019 | | [facility] | JULIETA Jim[address] | | | | | [place] at | [address] [place], | | | | | [place] [address] [address] | [place] [address] | | | | | [address] | [phone] | | | | | [place], [place] | | | | | | [address] | | | | | | [phone] | | | +--------+ + + + [...]
--- OUTSIDE RECORDS SUMMARY | ~2019-06-14 | XMS | Encounter Summary ---
Demographics + + + | Address | [address] | | | [place] [address] | + + + | Home Phone | | + + + | Preferred Language | Unknown | + + + | Marital Status | Single | + + + | Gnosticism Affiliation | NRP | + + + | Race | White | + + + | Ethnic Group | Not or | + + + Author + + + | Author | [facility] | + + + | Organization | [facility] | + + + | [...] Team Providers + +------+ + | Care Laundry Tub Maker Name | Role | Phone | + +------+ + | Bassam Ross DO | PCP | | + +------+ + Encounter Details +--------+ + + + + | Date | Type | Department | Care Team | Description | +--------+ + + + + | 10/06/ | MyChart | Dig[facility]ive [facility] | Thania Cardenas, | Recent Lab Results | | 2017 | Encounter | [facility] at [facility] [address] | [facility] [address] | | | | | [address] | [address] [place], [place] | | | | | Mailcode: [place] | [address] | | | | | for Health and | [phone] | | | | | [facility], [place] [address] | | | | | | [place], [place] | | | | | | [address] | | | | | | [phone] | | | +--------+ + + + [...]
--- OUTSIDE RECORDS SUMMARY | ~2019-06-14 | XMS | Encounter Summary ---
Demographics + + + | Address | [address] | | | [place] [address] | + + + | Home Phone | | + + + | Preferred Language | Unknown | + + + | Marital Status | Single | + + + | Druze Affiliation | NRP | + + + | Race | White | + + + | Ethnic Group | Not or | + + + Author + + + | Author | [facility] | + + + | Organization | [facility] | + + + | Address [...] | + + +---------+ + | Lana Leicester | ECON | Unknown | | + + +---------+ + Care Team Providers + +------+ + | Care Watch Supervisor Name | Role | Phone | + +------+ + | Iqra Peralta MD | PCP | | + +------+ + Encounter Details +--------+ + + + + | Date | Type | Department | Care Team | Description | +--------+ + + + + | 09/20/ | Pharmacy | Outpatient Retail | | | | 2019 | Visit | [facility] | | | | | | [address] | | | | | | [address] [place], [place] | | | | | | [address] | | | | | | [phone] | | | +--------+ + + + [...]
--- OUTSIDE RECORDS SUMMARY | ~2019-06-14 | XMS | Encounter Summary ---
Demographics + + + | Address | [address] | | | [place] [address] | + + + | Home Phone | | + + + | Preferred Language | Unknown | + + + | Marital Status | Single | + + + | Mu-Ism Affiliation | NRP | + + + | Race | White | + + + | Ethnic Group | Not or | + + + Author + + + | Author | [facility] | + + + | Organization | [facility] | + + + | Address [...] | + + +---------+ + | Lana [place] | ECON | Unknown | | + + +---------+ + Care Team Providers + +------+ + | Care Mine Geologist Name | Role | Phone | + +------+ + | Bassam Ross DO | PCP | | + +------+ + Reason for Referral Physical Therapy (Routine) +--------+--------+ + + + + | Status | Reason | Specialty | Diagnoses / | Referred By | Referred To | | | | | Procedures | Contact | Contact | +--------+--------+ + + + + | Closed | | Physical | Diagnoses | Conser, | | | | | Therapy | S/P | Traci Herrera, [facility] | | | | | | laparoscopic | [address] | | | | | | sleeve | [address], | | | | | | gastrectomy | [address] | | | | | | Morbid | [place], [place] | | | | | | obesity, | [address] | | | | | | unspecified | Phone: | | | | | | obesity type | [phone] | | | | | | (HCC) | Fax: | | | | | | Physical | [phone] | | | | | | deconditioni | | | | | | | ng | | | | | | | Procedures | | | | | | | PHYSICAL | | | | | | | THERAPY | | | | | | | REFERRAL | | | +--------+--------+ + + + + Encounter Details +--------+ + + + + | Date | Type | Department | Care Team | Description | +--------+ + + + + | 11/14/ | [facility] | [facility] | Traci Do, | S/P laparoscopic | | 2016 | | [facility] [address] | [facility] [address] | sleeve gastrectomy | | | | [address] | [address] | (Primary Dx); Morbid | | | | Mailcode: Center | [place], [place] | obesity, | | | | for Health and | [address] | unspecified obesity | | | | Healing, [address] | [phone] | type (HCC); Physical | | | | [place], [place] | | deconditioning | | | | [address] | | | | | | [phone] | | | +--------+ + + + [...] obesity type (HCC) | + + | Physical deconditioning Debility, unspecified | + + documented in this encounter"
--- OUTSIDE RECORDS SUMMARY | ~2019-06-14 | XMS | Encounter Summary ---
Demographics + + + | Address | [address] | | | [place] [address] | + + + | Home Phone | | + + + | Preferred Language | Unknown | + + + | Marital Status | Single | + + + | Shinto Affiliation | NRP | + + + [...] | + + +---------+ + | Lana Drake | ECON | Unknown | | + + +---------+ + Care Team Providers + +------+ + | Care Silk Screen Frame Assembler Name | Role | Phone | + +------+ + | Bassam Ross DO | PCP | | + +------+ + Encounter Details +--------+ + + + + | Date | Type | Department | Care Team | Description | +--------+ + + + + | 07/01/ | Abstract | Dig[facility] Health | Mily Todd MD | | | 2013 | | Center at [facility] [address] | [address] | | | | | [address] | [place], | | | | | Mailcode: [place] | [place] [address] | | | | | for Health and | [phone] | | | | | [place] [address] | | | | | | [place], [place] | | | | | | [address] | | | | | | [phone] | | | +--------+ + + + [...]
--- OUTSIDE RECORDS SUMMARY | ~2019-06-14 | XMS | Encounter Summary ---
Demographics + + + | Address | [address] | | | [place] [address] | + + + | Home Phone | | + + + | Preferred Language | Unknown | + + + | Marital Status | Single | + + + | Anglican Affiliation | NRP | + + + | Race | White | + + + | Ethnic Group | Not or | + + + Author + + + | Author | [facility] | + + + | Organization | [facility] | + + + | Address [...] | + + +---------+ + | Lana Le [place] | ECON | Unknown | | + + +---------+ + Care Team Providers + +------+ + | Care Pilot Control Operator Helper Name | Role | Phone | + +------+ + | Bassam Ross DO | PCP | | + +------+ + Encounter Details +--------+ + + + + | Date | Type | Department | Care Team | Description | +--------+ + + + + | 05/07/ | MyChart | Dig[facility] | Thania Cardenas, | RE: med change | | 2014 | Encounter | [facility] [address] | [facility] [address] | | | | | [address] | [address] [place], [place] | | | | | Mailcode: [place] | [address] | | | | | for Health and | | | | | | [facility] [address] | | | | | | [place], [place] | | | | | | [address] | | | | | | [phone] | | | +--------+ + + + [...]
--- OUTSIDE RECORDS SUMMARY | ~2019-06-14 | XMS | Encounter Summary ---
Demographics + + + | Address | [address] | | | [place] [address] | + + + | Home Phone [...] Team Providers + +------+ + | Care Asphalt Heater Tender Name | Role | Phone | [...] | | | | | | | [facility] | | | | | | [facility] and | | | | | | | Healing, | | | | | | | [address] | | | | | | | [place], [place] | | | | | | | [address] | | | | | | | Phone: | | | | | | | [phone] | | | | | | | Fax: | | | | | | | [phone] | +--------+--------+ + + + + Encounter Details +--------+---------+ + + + | Date | Type | Department | Care Team | Description | +--------+---------+ + + + | 06/26/ | Office | Digestive Health | Margot Contreras RD | Morbid obesity (HCC) | | 2016 | Visit | Center at [facility] [address] | [address] | (Primary Dx); S/P | | | | [address] | Jana Winston [facility], | laparoscopic sleeve | | | | Mailcode: [facility] | [place] [address] | gastrectomy; | | | | for Health and | | Diabetes mellitus | | | | Healing, [address] | | type 2, | | | | [place], [place] | | diet-controlled | | | | [address] | | (HCC) | | | | [phone] | | | +--------+---------+ + + + [...] encounter Progress Notes Margot Contreras, RD - 06/26/2015 10:59 AM PST Nutrition Counseling: Post-op Bariatric Surgery Follow-Up Patient referred [place]: [place] [address] Documented time of visit: 11:00 to 11:23 (23 minutes [id number]-[id number] with patient) Surgery: Sleeve Gastrectomy Date of Surgery: 02/07/15 Subjective: Overall happy with progress. Wishes she was losing weight more quickly. Discuss es that she does not feel like she has a lot of restriction & some days is hungry all of the time. Any reported changes: denies n/v/c/d Tolerating Bariatric Diet: yes, except ice cream and candy Current Physical Activity: walking w/o walker & using the [employer] Joined support group in [place] Changes in Diabetes Medications since surgery: no Testing blood glucose: no Objective: Ht Readings from Last 1 Encounters: 06/26/15 1.626 m (5' 4") Wt Readings from Last 2 Encounters: 06/26/15 163.885 kg (361 lb 4.8 oz) 03/08/15 174.091 kg (383 lb 12.8 oz) 01/22/15 188.696 kg (416 lb) No weight in Epic on day of surgery pt reports weight ~414lbs BMI: 62 Weight change since surgery: lost 55lbs PMHx: Past Medical History Diagnosis Date Essential [...] echo and chest xray findings. Followed by clerical administrator in [place]. Poor intravenous access Liver enlargement 01/2015 intraop Food logs: No Food choices: AM: Premier shake or yogurt 10:30-11 - cheese L: Tuna or egg salad (~1/2 cup) with crackers D: chicken strips and mashed potatoes + salad. Eating ~3oz chicken. Fluid choices: water and diet cranberry juice Supplementation: multivitamin - Bariatric Advantage, calcium with vitamin D and vitamin B12 + addition vit D (50, 0000 2x/week) + Biotin. Labs to be drawn today. Assessment: Following Bariatric Diet Protocol: Appears to be Meeting protein goals: Yes - estimates 87g/day Meeting fluid goals: Yes Fluids from meals: Yes Plan: Reviewed nutrition goals after bariatric surgery. Aim for 64 ounces of fluid and 60-80 grams of protein per day. Discussed eating solid food for breakfast (eggs, cottage cheese) to see if hunger improves. Continue to follow post-surgery bariatric diet progression: Continue stage 4 according to b ariatric diet guidelines -Provided written & verbal education/review of stage 4 guidelines -Continue to eat protein foods first; stop eating as soon as you begin to feel full. Incre ase intake of non-starchy vegetables to help promote satiety. -Choose foods with < 14 g sugar [...] to increase physical activity. Follow up in ~2 months - has appointment scheduled. Margot Contreras RD, [facility], LD [facility] Bariatrics [phone] documented in this enco unter Plan of Treatment Not on filedocumented as of this encounter Procedures + +--------+ + + + | Procedure Name | Priori | Date/Time | Associated Diagnosis | Comments | | | ty | | | | + +--------+ + + + | IN MNT RE-ASSESSMNT | Routin | 06/26/2015 | Morbid obesity | | | X15MIN | e | 11:33 AM | ([facility]) S/P | | | | | PST | laparoscopic sleeve | | | | [...] Primary Morbid obesity | + + | S/P laparoscopic sleeve gastrectomy | + + | Diabetes mellitus type 2, diet-controlled (HCC) Type II or unspecified type diabetes | | mellitus without mention of complication, not stated as uncontrolled | + + documented in this encounter
--- OUTSIDE RECORDS SUMMARY | ~2019-06-14 | XMS | Encounter Summary ---
Demographics + + + | Address | [address] | | | [place] [address] | + + + | Home Phone [...] Author + + + | Author | [facility] | + + + | Organization | [facility] | + + + | Address [...] Team Providers + +------+ + | Care Vmware Systems Administrator Name | Role | Phone | [...] + + + + | 08/15/ | Abstract | Digestive Health | Thania Cardenas, | Medical Records | | 2016 | | Center at [facility] | [facility] [address] | Review | | | | [address] | [place], [place] | | | | | Mailcode: [place] | [address] | | | | | [facility] Health and | [phone] | | | | | [place] [address] | | | | | | [place], [place] | | | | | | [address] | | | | | | [phone] | | | +--------+ + + + [...]
--- OUTSIDE RECORDS SUMMARY | ~2019-06-14 | XMS | Encounter Summary ---
Demographics + + + | Address | [address] | | | [place] [address] | + + + | Home Phone [...] | + + +---------+ + | Lana Clare | ECON | Unknown | | + + +---------+ + Care Team Providers + +------+ + | Care Prepress Technician Name | Role | Phone | [...] Closed | | Physical | Diagnoses | Tilgner, | [facility] | | | | Therapy | S/P | Thania F, ACNP | [address] | | | | | laparoscopic | [address] | | | | | sleeve | [address] | Mailcode: | | | | | gastrectomy | [place], [place] | [address] | | | | | Procedures | [phone] | for Health | | | | | PHYSICAL | Phone: | and Healing, | | | | | THERAPY | | Building [address], | | | | | REFERRAL | Fax: | [address] | | | | | | [phone] | [place], [place] | | | | | | | [address] | | | | | | | Phone: | | | | | | | [phone] | | | | | | | Fax: | | | | | | | [phone] | +--------+--------+ + + + + Reason for Visit + + + | Reason | Comments | + + + | Postoperative visit | | + + + Benefits Check [...] | | | | | | | [facility] for | | | | | | | Health and | | | | | | | Healing, | | | | | | | [address] | | | | | | | [place], [place] | | | | | | | [address] | | | | | | | Phone: | | | | | | | [phone] | | | | | | | Fax: | | | | | | | [phone] | +--------+--------+ + + + + Encounter Details +--------+---------+ + + + | Date | Type | Department | Care Team | Description | +--------+---------+ + + + | 06/26/ | Office | Digestive Health | Thania Cardenas, | S/P laparoscopic | | 2016 | Visit | Center at [facility] [address] | ACNP [address] | sleeve gastrectomy | | | | [address] | Ave [place], [place] | (Primary Dx); | | | | Mailcode: Center | [address] | Physical | | | | for Health and | [phone] | deconditioning; ANNABEL | | | | Healing, Building [address] | | (obstructive sleep | | | | [place], [place] | | apnea); Chronic | | | | [address] | | pain; Morbid obesity | | | | [phone] | | ([facility]) | +--------+---------+ + + [...] + + + | Blood Pressure | 160/70 | 06/26/2015 10:30 AM | | | | | PST | | + + + + + | Pulse | 88 | 06/26/2015 10:30 AM | | | | | PST | | + + + + + | Temperature | 37.2 C (98.9 F) | 06/26/2015 10:30 AM | | | | | PST | | + + + + + | Respiratory Rate | 18 | 06/26/2015 10:30 AM | | | | | PST | | + + + + + | Oxygen Saturation | 100% | 06/26/2015 10:30 AM | | | | | PST | | + + + + + | Inhaled Oxygen | - | - | | | Concentration | | | | + + + + + | Weight | 163.9 kg (361 lb 4.8 | 06/26/2015 10:30 AM | | | | oz) | PST | | + + + + + | Height | 162.6 cm (5' 4") | 06/26/2015 10:30 AM | | | | | PST | | + + + + + | Body Mass Index | 62.02 | 06/26/2015 10:30 AM | | | | | PST | | + + + + + documented in this encounter Patient Instructions Patient Instructions Thania Lamas ACNP - 06/26/2015 10:43 AM PSTFor the omeprazole: start taking it every other day, for a week then every 3rd day Hair Loss Massage your scalp as you wash your hair. The more you exercise especially to the point of sweating, improves circulation To your scalp and improves hair growth. Protein: 80-100 grams per day for women Close to 100 grams per day for men Biotin: 2.5mg/day Flaxseed Oil: 15ml per day (1 Tbs) Linseed oil or olive oil may be considered Iron tablets: 65mg elemental iron per day or 325 mg per day for ferrous fumarate or glucona te. (2 hours separate from any calcium, dairy or acid reducers) this is the routine Amount in your multi vit. Regular daily supplements should be continued: Chewable multivitamin with iron, twice the adult dose daily (2 hours separate from any jeannette cium, dairy or acid reducers) Calcium citrate 1125-3252 mg per day with vitamin D 1000 IU per day (2 hrs separate from i niki) Vitamin B12 500 mcg per day sub-lingual or once per month shot 1000mcg dose documented in this encounter Progress Notes Thania Lamas ACNP - 06/26/2015 10:26 AM PSTFormatting of this note might be different fro m the original. BARIATRIC FOLLOW-UP Aspen Darden is a 44 y.o. patient who underwent a sleeve gastrectomy 01/2015. She has a history of lap bands (required revisions) prior to having her sleeve gastrectomy. She is 4 months post op. She was last seen March 2015. She cancelled appointments in [facility], as well as upcoming Appointments in July. Walking 1 mile every day : For about a month Dose the dance on the [employer]. Not employed Describes some nausea discomfort with ice cream and chocolate. Appointment with submarine cable equipment technician following mine [phone] Last office visit reviewed. Op-report reviewed. Labs reviewed. Weight 407 pre op --> 361 (total 46 lb weight loss) Started the program at 448 Blood pressure 160/70, pulse 88, temperature 37.2 C (98.9 F), temperature source Oral, resp. rate 18, height 1.626 m (5' 4"), weight 163.885 kg (361 lb 4.8 oz), SpO2 100 %. ALLERGIES: Allergies Allergen Reactions Advair Diskus [Fluticasone-Salmeterol] [...] longer than 2-3 weeks., Disp: , Rfl: fluconazole (DIFLUCAN) 200 mg oral tablet, Take 1 tablet by mouth once daily., Disp: 1 tabl et, Rfl: 0 glycerin, ADULT, rectal suppository, Insert 1 suppository rectally once daily as needed (fo r constipation)., Disp: 5 suppository, Rfl: 2 HYDROmorphone (DILAUDID) 4 mg oral tablet, Take 1 tablet by mouth every four hours as neede d for severe pain., Disp: 50 tablet, Rfl: 0 HYDROmorphone 4 mg oral tablet, Take 0.5-1 tablets by mouth every four hours as needed for severe pain., Disp: 75 tablet, Rfl: 0 ondansetron ODT 4 mg oral [...] echo and chest xray findings. Followed by acupressurist in [place]. Poor intravenous access Liver enlargement 01/2015 intraop Past Surgical History Procedure Laterality Date C section 1998 Tonsillectomy 1996 Knee surgery 1996 Gastric banding 2004, 2006, 2010 Skin and subcutaneous tissue surgery 2006 Foot surgery 2009 - 2010 3x Hysterectomies, vaginal 2009 Appendectomy for ruptured appendix with abscess 2012 Gallbladder surgery 2008 Laparotomy 07/2014 [facility] Social [facility] Marital Status: Single Spouse [...] sinus rhythm. Normal ECG Records reviewed from [facility] (see media tab): Echocardiogram 11/18/2013: 1. Sinus [...] There is no pericardial effusion.21. No mass [id number]. Po or visualization. Definity was used to opacify the left ventricular chamber and improve deli neation of the endocardial border. Family History Problem Relation Diabetes Father Hypertension Mother Obesity Mother Hypertension Father Heart Disease Father [place] 78 Bariatric Medications: MVI with iron twice daily: yes Calcium citrate 1500mg daily: yes Vitamin D 1000 mg daily : yes 50,000 twice a week B12 500mcg SL daily or monthly shot: yes H2RB/PPI daily: yes Symptoms: Nausea: None Dysphagia: None Vomiting: None Heartburn: None Abd Pain: None Constipation: None Diarrhea: None Exam General- Alert and oriented x4, WD, WN, NAD, Obese, well appearing Well hydrated: moist mucous membranes Lungs: regular and even excursion, no audible wheezes Card/Circ: no LE edema Abd - Soft, NT, NR, NG Abd Wounds healed Assessment/Plan: 1. S/P sleeve gastrectomy, Doing well No symptoms. She states she can eat up to a cup of f ood at one Time, feels she doesn't have much restriction (although that is significant restriction fro m before). She is walking 1 mile a day that she just started in the last month. She is not swimming as she can't affo rd it. She describes eating ice cream and chocolate. Not clear that she is sticking to our diet re commendations. Plan: referral to PT in her local area for assessment and intervention and swim referral if able Increase her activity level to the level of sweating. 2. Labs today: CBC, CMP, B12, PTH, vit D, ferritin will notify of results 3.Take acid pollution control chemist (omeprazole) for first 3 mos, then wean off over 2 wks. This is to pre vent ulcers. Take this medication even if you have NO symptoms. Instructions are provided today for weaning. 5Continue with supps as directed, watch protein [...] and calcium absorption are not opti mized. Encouraged pt to F/u at 6 month post op. 5. ANNABEL: still using cpp 6. GERD: not her diagnosis 7. Hyperlipidemia: not her diagnosis 8. HTN: continues on carvediolol 9. Diabetes: borderline diabetes. (no change) lab is pending today See PCM for adjusting any other medications. Call if any abd pain, n/v/d or other issues. Pt agrees to POC and will call or send Kite message if any issues. Start time 1030 , end time 1100. I spent a total of 30 minutes face to face with this uday ent. Over 50% of visit was in counseling. Thania Lamas DNP, ACNP, TELECOMMUNICATIONS OFFICER Nurse Practitioner for Bariatric Surgery [facility] | [address] | [place] | [address] | documented in this en counter Plan of Treatment Not on filedocumented as of this encounter Results TSH (06/26/2015 11:38 AM PST) + +-------+ + + + | Component | Value | Ref Range | Performed | Pathologist | | | | | At | Signature | + +-------+ + + + | TSH | 2.43 | 0.44 - 4.75 | [facility] | | | | | mIU/L | LABORATORY | | | | | | SERVICES, | | | | | | CORE | | + +-------+ + + + | TSH | | uIU/mL | [facility] | | | | | [...] | + + + + + | [facility] | [address] | [place] [address] | | | [facility] | [address] | | | + + + + + HEMOGLOBIN A1C, BLOOD (06/26/2015 11:38 AM PST) + + + + + + | Component | Value | Ref Range | Performed | Pathologist | | | | | At | Signature | + + + + + + | HEMOGLOBIN | 6.1 (H)Comment: Hbg A1c | <5.7 % | [facility] | | | A1C | Interpretive | [...] + + + + + | [facility] | [address] | [place] [address] | | | SERVICES, SPECIAL | [address] | | | | IMM + COAG | | | | + + + + + FERRITIN (06/26/2015 11:38 AM PST) + + + + + + | Component | Value | Ref Range | Performed | Pathologist | | | | | At | Signature | + + + + + + | FERRITIN | 150Comment: Male and | 50 - 200 ng/mL [...] LABORATORY | [address] | [place] [address] | | | SERVICES, CORE | [address] | | | + + + + + PTH, SERUM (06/26/2015 11:38 AM PST) + +-------+ + + + | Component | Value | Ref Range | Performed | Pathologist | | | | | At | Signature | + +-------+ + + + | PTH, SERUM | 72 | 12 - 77 pg/mL | [facility] [...] | 12/20/14. | LABORATORY | | | SERVICES, CORE | + + + + + + + + | Performing | Address | City/State/Zipcode | Phone Number | | Organization | | | | + + + + + | [facility] | [address] | [place] [address] | | | SERVICES, CORE | [address] | | | + + + + + VITAMIN B-12, SERUM (06/26/2015 11:38 AM PST) + +-------+ + + + | Component | Value | Ref Range | Performed | Pathologist | | | | | At | Signature | + +-------+ + + + | VITAMIN B12 | 589 | 190 - 910 pg/ml | [facility] | | | | | | LABORATORY | | | | | | SERVICES, | | | | | | SPECIAL IMM | | | | | | + COAG | | + +-------+ + + + + + | Specimen | + + | Blood - Blood | | (substance) | + + + + + + + | Performing | Address | City/State/Zipcode | Phone Number | | Organization | | | | + + + + + | [facility] | [address] | [place] [address] | | | SERVICES, SPECIAL | [address] | | | | IMM + COAG | | | | + + + + + VITAMIN D, 25-HYDROXY, SERUM (06/26/2015 11:38 AM PST) + + + + + + | Component | Value | Ref Range | Performed | Pathologist | | | | | At | Signature | + + + + + + | VITAMIN D | 28.3 (L) | 30 - 80 ng/mL | [...] 81-150 ng/ml Toxic: >150 ng/mL | | | New method and performing lab effective 06/21/15. | | + + + + + + + + | Performing | Address | City/State/Zipcode | Phone Number | | Organization | | | | + + + + + | [facility] | [address] [facility] | [place] [address] | | | SERVICES, MIR | [address] | | | + + + + + COMPLETE METABOLIC SET (NA,K,CL,CO2,BUN,CREAT,GLUC,CA,AST,ALT,BILI TOTAL,ALK PHOS,ALB,PROT TOTAL) (06/26/2015 11:38 AM PST) + +---------+ + + + | Component | Value | Ref Range | Performed | Pathologist | | | | | At | Signature | + +---------+ + + + | GLUCOSE, | 122 (H) | 60 - 99 mg/dL | [facility] | | | PLASMA | | | LABORATORY | | | (LAB) | | | SERVICES, | | | | | | CORE | | + +---------+ + + + | BUN, PLASMA | 13 | 6 - 20 mg/dL | [facility] | | | (LAB) | | | LABORATORY | | | | | | SERVICES, | | | | | | CORE | | + +---------+ + + + | CREATININE | 0.70 | 0.60 - 1.10 | [facility] | | | PLASMA | | mg/dL | LABORATORY | | | (LAB) | | | SERVICES, | | | | | | CORE | | + +---------+ + + + | EGFR | >60 | >60 mL/min | [facility] | | | - | | | LABORATORY | | | EMIRATI | | | SERVICES, | | | [...] +---------+ + + + | POTASSIUM, | 4.2 | 3.4 - 5.0 | [facility] | | | PLASMA | | mmol/L | LABORATORY | | | (LAB) | | | SERVICES, | | | | | | CORE | | + +---------+ + + + | CHLORIDE, | 104 | 97 - 108 mmol/L | [facility] [...] +---------+ + + + | BILIRUBIN | 0.6 | 0.3 - 1.2 mg/dL | [facility] | | | TOTAL | | | LABORATORY | | | | | | SERVICES, | | | | | | CORE | | + +---------+ + + + | TOTAL | 7.8 | 6.4 - 8.2 g/dL | [facility] | | | PROTEIN, | | | LABORATORY | | | PLASMA | | | SERVICES, | | | (LAB) | | | CORE | | + +---------+ + + + | ALBUMIN, | 3.5 | 3.5 - 4.7 g/dL | [facility] | | | PLASMA | | | LABORATORY | | | (LAB) | | | SERVICES, | | | | | | CORE | | + +---------+ + + + | ALK PHOS | 117 (H) | 42 - 98 U/L | [facility] | | | | | | LABORATORY | | | | | | SERVICES, | | | | | | CORE | | + +---------+ + + + | AST(SGOT) | 24 | <=41 U/L | [facility] | | | | | | LABORATORY | | | | | | SERVICES, | | | | | | CORE | | + +---------+ + + + | ALT (SGPT) | 31 | <=60 U/L | [facility] | | | | | | LABORATORY | | | | | | SERVICES, | | | | | | CORE | | + +---------+ + + + | ANION | 7 [...] | + + + + + | [facility] | [address] | [place] [address] | | | SERVICES, CORE | [address] | | | + + + + + documented in this encounter Visit Diagnoses + + | Diagnosis | + + | S/P laparoscopic sleeve gastrectomy - Primary | + + | Physical deconditioning Debility, unspecified | + + | ANNABEL (obstructive sleep apnea) Obstructive sleep apnea (adult) (pediatric) | + + | Chronic pain Other chronic pain | + + | Morbid obesity (HCC) Morbid obesity | + + documented in this encounter
--- OUTSIDE RECORDS SUMMARY | ~2019-06-14 | XMS | Encounter Summary ---
Demographics + + + | Address | [address] | | | [place] [address] | + + + | Home Phone | | + + + | Preferred Language | Unknown | + + + | Marital Status | Single | + + + | Church Affiliation | NRP | + + + [...] | + + +---------+ + | [place] | ECON | Unknown | | + + +---------+ + Care Team Providers + +------+ + | Care Proof Technician Name | Role | Phone | + +------+ + | Bassam Ross DO | PCP | | + +------+ + Encounter Details +--------+ + + + + | Date | Type | Department | Care Team | Description | +--------+ + + + + | 03/22/ | Abstract | Digestive Health | Tilgner, Thania F, | | | 2013 | | Center at [facility] [address] | [address] | | | | [address] | [place], [place] | | | | | Mailcode: [place] | [address] | | | | | for Health and | | | | | | [facility] | | | | | | [place], [place] | | | | | | [address] | | | | | | | [...]
--- OUTSIDE RECORDS SUMMARY | ~2019-06-14 | XMS | Encounter Summary ---
Demographics + + + | Address | [address] | | | [place] [address] | + + + | Home Phone [...] Team Providers + +------+ + | Care Loom Repairer Name | Role | Phone | + [...] Description | +--------+---------+ + + + | 11/10/ | Office | Digestive Health | | Morbid obesity with | | 2014 | Visit | Center at [facility] [address] | | BMI of 70 and over, | | | | [address] | | adult (HCC) (Primary | | | | Mailcode: Center | | Dx) | | | | for Health and | | | | | | Healing, [address] | | | | | | [place], [place] | | | | | | [address] | | | | | | [phone] | | | +--------+---------+ + + + [...] + + + + | Weight | 190.5 kg (420 lb) | 11/10/2014 2:13 PM | | | | | PDT | | + + + + + | Height | - | - | | + + + + + | Body Mass Index | 74.4 | 09/04/2014 2:42 PM | | | | | PDT | | + + + + + documented in this encounter Progress Notes Margot Hunt, RD - 11/10/2014 3:00 PM PDT Referring Provider: Bassam Ross DO [facility], Pre-Bariatric Surgery Class Pre-Surgery Class #1 prior to having Siva-En-Y gastric bypass surgery or Sleeve Gastrectomy . Documented Time of Class: 2:00 until 3:00 (60 minutes zoct-tl-ylol with patient) OBJECTIVE: Height: Ht Readings from Last 1 Encounters: 09/04/14 1.6 m (5' 3") Ht Readings from Last 1 Encounters: 09/04/14 1.6 m (5' 3") Wt Readings from Last 2 Encounters: 11/10/14 190.511 kg (420 lb) 09/04/14 192.325 kg (424 lb) BMI: Body mass index is 74.42 kg/(m^2). Teaching Methods: PowerPoint and verbal presentation with [...] -Taking vitamins and minerals every day 2. Mindful eating, emotional eating 3. Pre-surgery diet (plate method, label reading, keeping food logs) Assessment: Pt remained attentive throughout the class and/or participated by asking questi ons or sharing information. Yes Margot Hunt RD SKIN CARE CONSULTANT LD Outpatient Adult Dietitian documented in this enc ounter Plan of Treatment Not on filedocumented as of this encounter Visit Diagnoses + + | Diagnosis | + + | Morbid obesity with BMI of 70 and over, adult (HCC) - Primary | + + documented in this encounter
--- OUTSIDE RECORDS SUMMARY | ~2019-06-14 | XMS | Encounter Summary ---
Demographics + + + | Address | [address] | | | [place] [address] | + + + | Home Phone [...] | + + +---------+ + | Lana Sodus | ECON | Unknown | | + + +---------+ + Care Team Providers + +------+ + | Care Dye Box Operator Name | Role | Phone | [...] | +--------+ + + + + | 02/09/ | Abstract | Digestive Health | Clinic, Surgery | Medical Records | | 2019 | | [place] [facility] [address] | | Review | | | | [address] | | | | | | Mailcode: [place] | | | | | | [facility] and | | | | | | [facility] [address] | | | | | | [place], [place] | | | | | | [address] | | | | | | [phone] | | | +--------+ + + + [...]
--- OUTSIDE RECORDS SUMMARY | ~2019-06-14 | XMS | Encounter Summary ---
Demographics + + + | Address | [address] | | | [place] [address] | + + + | Home Phone | | + + + | Preferred Language | Unknown | + + + | Marital Status | Single | + + + | Yarsanism Affiliation | Unknown | + + + | Race | Unknown | + + + | Ethnic Group | Unknown | + + + Author + + + | Author | [facility] | | | and [place] | + + + | Organization | [facility] | [...] Team Providers + +------+ + | Care Home Designer Name | Role | Phone | + [...] Description | +--------+--------+ + + + | 06/12/ | Refill | [facility] | Adolfo Zazueta, | Medication Refill | | 2017 | | PULMONARY [address] | MD [address] | | | | | [place], | [place], [place] | | | | | [place] [address] | [address] | | | | | [phone] | | | +--------+--------+ + + + [...] [place] | | | | | | [address] | | | | | | | | +--------+---------+ + + + | 01/18/ | Office | Sleep Medicine | Jermaine Fairchild | | | 2019 | Visit | | MD Lars [address] | | | | | | [place] | | | | | | [place] [address] | | | | | | [phone] | | | | | | | | +--------+---------+ + + + documented as of this encounter Visit Diagnoses Not on filedocumented in this encounter"
--- OUTSIDE RECORDS SUMMARY | ~2019-06-14 | XMS | Encounter Summary ---
Demographics + + + | Address | [address] | | | [place] [address] | + + + | Home Phone | | + + + | Preferred Language | Unknown | + + + | Marital Status | Single | + + + | Latter Day Affiliation | NRP | + + + | Race | White | + + + | Ethnic Group | Not or | + + + Author + + + | Author | [facility] | + + + | Organization | [facility] | + + + | [...] Team Providers + +------+ + | Care Paralegal Secretary Name | Role | Phone | + +------+ + | Bassam Ross DO | PCP | | + +------+ + Reason for Visit + + + | Reason | Comments | + + + | Home Health orders | | + + + Encounter Details +--------+ + + + + | Date | Type | Department | Care Team | Description | +--------+ + + + + | 01/28/ | Telephone | [facility] | Traci Do, | Home Health orders | | 2015 | | Center at [facility] [address] | [place] [address] | | | | | [address] | [facility] [address] | | | | | Mailcode: Center | [place], [place] | | | | | for Health and | [address] | | | | | [place] [address] | [phone] | | | | | [place], [place] | | | | | | [address] | | | | | | [phone] | | | +--------+ + + + [...]
--- OUTSIDE RECORDS SUMMARY | ~2019-06-14 | XMS | Encounter Summary ---
Demographics + + + | Address | [address] | | | [place] [address] | + + + | Home Phone | | + + + | Preferred Language | Unknown | + + + | Marital Status | Single | + + + | Druze Affiliation | Unknown | + + + | Race | Unknown | + + + | Ethnic Group | Unknown | + + + Author + + + | Author | [facility] | | | and [place] | + + + | Organization | [facility] | | [...] Team Providers + +------+ + | Care News Production Supervisor Name | Role | Phone | + +------+ + PCP | Unavailable | + +------+ + Encounter Details +--------+ + + + + | Date | Type | Department | Care Team | Description | +--------+ + + + + | 02/20/ | [facility] | [facility] | Jermaine Fairchild | | | 2002 | Encounter | [facility] SLEEP | MD [address] | | | | | CENTER [address] | [address] | | | | | [place] | [place] [address] | | | | | [address] | [phone] | | | | | [phone] | | | +--------+ + + + [...] [place] | | | | | | [address] | | | | | | | | +--------+---------+ + + + | 01/18/ | Office | Sleep Medicine | Jermaine Fairchild | | | 2019 | Visit | | MD [address] | | | | | | [place] | | | | | | [place] [address] | | | | | | [phone] | | | | | | | | +--------+---------+ + + + documented as of this encounter Visit Diagnoses Not on filedocumented in this encounter"
--- OUTSIDE RECORDS SUMMARY | ~2019-06-14 | XMS | Encounter Summary ---
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 and insight appropriat e in context of visit, apparently normal recent and remote memory and oriented to time, pl el and person Laboratory/Diagnostics: Per chart review: Lab Results Component Value Date HB 15.7 11/03/2013 HCT 48.1 11/03/2013 PLT 317 11/03/2013 BUN 15 11/03/2013 CR 0.59 11/03/2013 GLU 103 11/03/2013 A1C 5.2 11/03/2013 CHOL 217 11/03/2013 LDL 121 11/03/2013 HDL 66 11/03/2013 TRI 152 11/03/2013 TSH 4.38 11/03/2013 CV Tests - reviewed today: ECG ([facility]) 01/12/2012 - Normal sinus rhythm. Normal ECG Records reviewed from [facility] (see media tab): Echocardiogram 11/18/2013: ECG 11/18/2013 - Sinus bradycardia, VR 59 bpm. Otherwise normal ECG Cardiac Risk Stratification Revised Cardiac Risk Index (RCRI) (1 point for each risk) Known ischemic heart disease: unknown - GROSSMAN, poor functional tolerance Congestive Heart Failure: 0 Cerebrovascular disease: 0 Renal insufficiency (creatinine level > 2): 0 DM (requiring insulin): 0 Surgery Specific Risk (intraperitoneal; intrathoracic; suprainguinal vascular): 0 Rate of cardiac , non fatal VA, non fatal cardiac arrest 0 risk factors - 0.4% (very low) 1 risk factors - 0.9% (low) 2 risk factors - 6.6%, (moderate) 3 or >risk factors - 11% (high) ACC/AHA Perioperative Guidelines: 1. Need for emergency noncardiac surgery? b. No -> Proceed to next step 2. Active Cardiac Conditions? These conditions mandate further investigation and manageme nt. A. Acute VA within 7 days: no B. Unstable angina/Recent VA (7- 30 days): no C. Decompensated CHF: no D. Significant arrhythmia: None E. Severe valvular disease: NONE 3. Low risk surgery? b. No -> proceed with next step Surgery Specific Risk 4. Good functional capacity? (> 4 METS)b. No -> proceed with next step Functional METs 5. Assess Clinical Risk Factors? A. Ischemic heart disease: unknown - GROSSMAN, poor functional tolerance B. Compensated / prior heart failure: no C. Diabetes mellitus (requiring Insulin): no D. Renal insufficiency (Cr > 2): no E. Cerebrovascular disease: no Surgery Risk: Intermediate Assessment/Plan:: Preoperative Evaluation: Aspen Darden is a 43 y.o. female with history of HTN, HLD, Asthma/COPD, ANNABEL on CPAP, Morbid Obesity who is referred by Thania JACKSON for cardiac evaluation and risk as sessment for bariatric surgery. she is undergoing Intermediate risk surgery, with an exerci se tolerance of < 4 METs with symptoms of dyspnea on exertion. LVSF is normal. Unfortunatel y at her current weight and body habitus, it is unlikely to get a meaningful interpretation of stress imaging to assist us in risk stratification. In addition at this weight, it is eas y to miss true disease on imaging. It is likely she may have some degree of mild atheroscler osis, which in and of itself is not a contraindication for surgery, although hHer age, and l ack of other hard CV risk factors make it less likely she has significant CAD. There are ris ks associated with pharmacologic stress imaging, and the results are not likely to be adequa te. At her weight she falls outside the populations tested in the current guidelines. We are unable to adequately risk stratify her further given their current weight. I believe that h er main perioperative risks will be related to her pulmonary disease. That said, the weight loss resulting from bariatric surgery will give her the most benefit in reduction of future risk. I discussed all this with patient, explaining the limitations of stress imaging and th e restrictions her weight places on interpretation, as well as potential perioperative risks . She is working with [employer] to try to lose some weight before surgery. She lives in [facility] (225 miles away), and transportation is an issue for her so bariatric aquatic PT classe s not an option for her. I will give her a low-moderate intensity water exercise plan she ca n do at home, which should pose no added risk. Instructed to do 5-10 minute intervals with r ests in between Chest xray today on 3rd floor Exercise Rx as below - Patient was advised to continue all blood pressure medications perioperatively, as preve nting significant increases in double product or cardiac workload is rutledge in preventing perio perative cardiac complications. Exercise Instructions: Follow the N.E.A.T Principle (Non Exercise Activity Thermogenesis): You burn more calories when you are NOT sitting! And you live longer the more you move! Research shows the longer y ou spend sitting, the higher your risk for early . This can easily be accomplished by incorporating movement into your daily activities: - Park farther away and walk - Walk or ride a bike for errands - Take the stairs instead of the elevator - Pace while talking on the phone rather than sitting - Decrease TV time to less than 2 hours per day - Exercise while watching TV instead of sitting on the couch (No equipment? Walk in place!) - Play Wii rather than a video game - Take a 5-10 minute walk several times a day - it adds up! AEROBICS: Water Walking - chest high water; or water aerobics, as tolerated Where: Gym Frequency (How often): 2 days per week Duration (How long): 5-10 minutes to start Intensity (How hard): Low-moderate intensity. Remember "Talk Test" Progression: Gradually increase exercise to 30-60 minutes, 5 days per week, in 5-10 minute intervals with rests in between. Exercise as tolerated, with rests as needed. If you experience chest pain, shortness of marco a ath or dizziness, stop and get help immediately. Always drink plenty of water while exercising. Always check your feet after exercise to inspect for redness or blisters. Exercise indoors when it is excessively hot or cold outside, or poor air quality. It is strongly recommended to purchase a medical I.D. Bracelet and wear at all times. I discussed the implications of the preoperative evaluation with the patient including risk stratification. Patient verbalized understanding of plan of care and instructions as tressa pillai. A report of this preoperative evaluation will be sent to PCP Bassam Ross DO and referring provider/surgeon Thania Lamas [facility] - PREVENTIVE [id number] Mailcode: [id number] [facility] [id number] documented in t his encounter Plan of Treatment Not on filedocumented as of this encounter Results X-RAY CHEST 2 VIEW [...] | | + +---------+ + + | [place] DEPARTMENT OF | | | | | RADIOLOGY | | | | + +---------+ + + documented in this encounter Visit Diagnoses + + | Diagnosis | + + | Preop cardiovascular exam - Primary Pre-operative cardiovascular examination | + + | GROSSMAN (dyspnea on exertion) Other dyspnea and respiratory abnormality | + + | Murmur, cardiac Undiagnosed cardiac murmurs | + + documented in this encounter
--- OUTSIDE RECORDS SUMMARY | ~2019-06-14 | XMS | Encounter Summary ---
Demographics + + + | Address | [address] | | | [place] [address] | + + + | Home Phone | | + + + | Preferred Language | Unknown | + + + | Marital Status | Single | + + + | Tenriism Affiliation | NRP | + + + [...] + + +---------+ + | Lana [place] | ECON | Unknown | | + + +---------+ + Care Team Providers + +------+ + | Care Payment Specialist Name | Role | Phone | + +------+ + | Bassam Ross DO | PCP | | + +------+ + Encounter Details +--------+ + + + + | Date | Type | Department | Care Team | Description | +--------+ + + + + | 09/23/ | Abstract | [facility] | Traci Do, | | | 2013 | | [facility] [address] | [employer] [address] | | | | | [address] | [place] [address] | | | | | Mailcode: [place] | [place], [place] | | | | | [facility] and | [address] | | | | | [place] [address] | [phone] | | | | | [place], [place] | | | | | | [address] | | | | | | [phone] | | | +--------+ + + + [...]
--- OUTSIDE RECORDS SUMMARY | ~2019-06-14 | XMS | Encounter Summary ---
Demographics + + + | Address | [address] | | | [place] [address] | + + + | Home Phone | | + + + | Preferred Language | Unknown | + + + | Marital Status | Single | + + + | Islam Affiliation | NRP | + + + | Race | White | + + + | Ethnic Group | Not or | + + + Author + + + | Author | [facility] | + + + | Organization | [facility] | + + + | [...] | + + +---------+ + | [place] | ECON | Unknown | | + + +---------+ + Care Team Providers + +------+ + | Care Concrete Inspector Name | Role | Phone | [...] Description | +--------+---------+ + + + | 08/23/ | Surgery | 6A Intra Op 3181 | Dori Reed, | LAPAROSCOPY SLEEVE | | 2014 | | [address] | | [facility] NOT | | | | [address]IE [address] | | PERFORMED | | | | Hospital Admitting | | | | | | Desk Located on the | | | | | | 9th floor | | | | | | [place], [place] | | | | | | [address] | | | +--------+---------+ + + + [...] + + + | Blood Pressure | 118/69 | 08/23/2014 2:45 PM | | | | | PDT | | + + + + + | Pulse | 78 | 08/23/2014 3:15 PM | | | | | PDT | | + + + + + | Temperature | 36.7 C (98 F) | 08/23/2014 2:56 PM | | | | | PDT | | + + + + + | Respiratory Rate | 22 | 08/23/2014 3:15 PM | | | | | PDT | | + + + + + | Oxygen Saturation | 94% | 08/23/2014 3:15 PM | | | | | PDT | | + + + + + | Inhaled Oxygen | - | - | | | Concentration | | | | + + + + + | Weight | 194 kg (427 lb 11.1 | 08/23/2014 8:30 AM | | | | oz) | PDT | | + + + + + | Height | 160 cm (5' 2.99") | 08/23/2014 8:30 AM | | | | | PDT | | + + + + + | Body Mass Index | 75.78 | 08/23/2014 8:30 AM | | | | | PDT | | + + + + + documented in this encounter Discharge Instructions Instructions Maria Antonia Valdivia RN - 08/23/2014 General Discharge Instructions for Same-Day Procedure Patients: Remember that you are under the influence of medications. Do not stay alone. A responsible person should be with you. Do not drive, drink alcohol or make important personal or business decisions for 24 hour s. Resume normal activity and return to work when advised by your Doctor. Pain Management: Your last oral pain medication was given at: Please follow your Doctor s instructions on the medication bottle. Do not take pain medication on an empty stomach, as this may cause nausea and vomiting. Do not drive or drink alcohol while on narcotic pain medication. If you received a Peripheral Nerve Block, please take pain medication when numbing begins to wear off or when you go to bed. This will allow for pain coverage when your nerve block wears off during the night. If pain is not relieved or increases despite following these instructions, please call yo ur Doctor. Diet: If you do not experience nausea or vomiting resume your regular diet. Eat lightly and av oid large, high fat or highly spiced meals for 24-48 hours. Constipation can be a side effect of narcotic pain medication. Take stool softeners, inc rease dietary fiber and drink plenty of water to prevent this. Wound/Dressing/Drain Care: Call your Doctor if there is excessive bleeding, redness, swelling or drainage at the ope rative site. Urination: Please contact your Doctor or proceed to the nearest Emergency Room if you have not urina laurel/voided in 8 hours after discharge. IV Site Care Instructions: Monitor IV site for pain, redness, swelling and/or drainage. If present, call your Docto r immediately. Minor redness and/or tenderness may be treated with warm, moist compresses for 24-48 hour s. If the area is still red and/or tender after this, notify your Doctor. Call your Doctor if you experience: Persistent nausea or vomiting. Fever ?101F or chills. Increased or uncontrolled pain despite taking pain medications. Call 911 if you experience difficulty breathing or unusual shortness of breath. Additional Home Care Instructions: Follow-up Appointment: As scheduled After arriving home you may receive a patient satisfaction survey from "Sadia Avalos". We raven girard appreciate your feedback on the survey to help us provide excellent service to you and your family. Sleep Apnea: After Your Visit Your Care Instructions Sleep apnea means that you frequently stop breathing for 10 seconds or longer during sleep. It can be mild to severe, based on the number of times an hour that you stop breathing or h ave slowed breathing. Blocked or narrowed airways in your nose, mouth, or throat can cause sleep apnea. Your airw ay can become blocked when your throat muscles and tongue relax during sleep. You can treat sleep apnea at home by making lifestyle changes. You also can use a CPAP bita thing machine that keeps tissues in the throat from blocking your airway. Or your doctor may suggest that you use a breathing device while you sleep. It helps keep your airway open. Th is could be a device that you put in your mouth. Other examples include strips or disks that you use on your nose. In some cases, surgery may be needed to remove enlarged tissues in th e throat. Follow-up care is a rutledge part of your treatment and safety. Be sure to make and go to all ap pointments, and call your doctor if you are having problems. It's also a good idea to know y our test results and keep a list of the medicines you take. How can you care for yourself at home? Lose weight, if needed. It may reduce the number of times you stop breathing or have slowed breathing. Sleep on your side. It may stop mild apnea. If you tend to roll onto your back, sew a pocke t in the back of your pajaTypekit top. Put a tennis ball into the pocket, and stitch the pocket s hut. This will help keep you from sleeping on your back. Avoid alcohol and medicines such as sleeping pills and sedatives before bed. Do not smoke. Smoking can make sleep apnea worse. If you need help quitting, talk to your d octor about stop-smoking programs and medicines. These can increase your chances of quitting for good. Prop up the head of your bed 4 to 6 inches by putting bricks under the legs of the bed. Treat breathing problems, such as a stuffy nose, caused by a cold or allergies. Try a continuous positive airway pressure (CPAP) breathing machine if your doctor recommend s it. The machine keeps your airway open when you sleep. If CPAP does not work for you, ask your doctor if you can try other breathing machines. A b ilevel positive airway pressure machine uses one type of air pressure for breathing in and a nother type for breathing out. Another device raises or lowers air pressure as needed while you breathe. Talk to your doctor if: Your nose feels dry or bleeds when you use one of these machines. You may need to increase moisture in the air. A humidifier may help. Your nose is runny or stuffy from using a breathing machine. Decongestants or a corticoster oid nasal spray may help. You are sleepy during the day and it gets in the way of the normal things you do. Do not dr baca when you are drowsy. When should you call for help? Watch closely for changes in your health, and be sure to contact your doctor if: You still have sleep apnea even though you have made lifestyle changes. You are thinking of trying a device such as CPAP. You are having problems using a CPAP or similar machine. Where can you learn more? To learn more about "Sleep Apnea: After Your Visit", log into your [employer] account at http: [email or web address]. You can enter J936 in the [employer] Library" search box. Not on [employer]? Review the [employer] section of your After Visit Summary for directions on lisa carbajal to sign up. [id number] [employer]. Care instructions adapted under license by [facility] [employer] [place]. This care instruction is for use with your licensed healthcar e professional. If you have questions about a medical condition or this instruction, always ask your healthcare professional. [employer] disclaims any warranty or liabili ty for your use of this information. Content Version: 10.3.453466; Current as of: February 07, 2014 General Discharge Instructions for Same-Day Procedure Patients: Remember that you are under the influence of medications. Do not stay alone. A responsible person should be with you. Do not drive, drink alcohol or make important personal or business decisions for 24 hour s. Resume normal activity and return to work when advised by your Doctor. Pain Management: Your last oral pain medication was given at: Please follow your Doctor s instructions on the medication bottle. Do not take pain medication on an empty stomach, as this may cause nausea and vomiting. Do not drive or drink alcohol while on narcotic pain medication. If you received a Peripheral Nerve Block, please take pain medication when numbing begins to wear off or when you go to bed. This will allow for pain coverage when your nerve block wears off during the night. If pain is not relieved or increases despite following these instructions, please call yo ur Doctor. Diet: If you do not experience nausea or vomiting resume your regular diet. Eat lightly and av oid large, high fat or highly spiced meals for 24-48 hours. Constipation can be a side effect of narcotic pain medication. Take stool softeners, inc rease dietary fiber and drink plenty of water to prevent this. Wound/Dressing/Drain Care: Call your Doctor if there is excessive bleeding, redness, swelling or drainage at the ope rative site. Urination: Please contact your Doctor or proceed to the nearest Emergency Room if you have not urina laurel/voided in 8 hours after discharge. IV Site Care Instructions: Monitor IV site for pain, redness, swelling and/or drainage. If present, call your Docto r immediately. Minor redness and/or tenderness may be treated with warm, moist compresses for 24-48 hour s. If the area is still red and/or tender after this, notify your Doctor. Call your Doctor if you experience: Persistent nausea or vomiting. Fever ?101F or chills. Increased or uncontrolled pain despite taking pain medications. Call 911 if you experience difficulty breathing or unusual shortness of breath. Additional Home Care Instructions: As instructed Follow-up Appointment: As scheduled After arriving home you may receive a patient satisfaction survey from "Sadia Avalos". Mayur girard appreciate your feedback on the survey to help us provide excellent service to you and your family. AttachmentsThe following attachments cannot be sent through Care Everywhere.SLEEP APNEA (IWONA SIMON)documented in this encounter Plan of Treatment Not on filedocumented as of this encounter Procedures + +--------+ + + + | Procedure Name | Priori | Date/Time | Associated Diagnosis | Comments | | | ty | | | | + +--------+ + + + | PROCEDURE NOTE | Routin | 07/05/2015 | | Results for this | | | e | 3:10 PM | | procedure are in the | | | | PST | | results section. | + +--------+ + + + | OPERATION RECORD | | 08/24/2014 | | Results for this | | | | 9:51 AM | | procedure are in the | | | | PDT | | results section. | + +--------+ + + + | LAPAROSCOPIC SLEEVE | Electi | 08/23/2014 | Morbid obesity | | | GASTRECTOMY | ve | 10:39 AM | ([facility]) | | | | Surgic | PDT | | | | | al | | | | + +--------+ + + + documented in this encounter Results PROCEDURE NOTE (07/05/2015 3:10 PM PST)OPERATION RECORD (08/24/2014 9:51 AM PDT) + + | Transcriptions | + + | Dori Reed MD - 08/23/2014 2:10 PM PDT Date of Service: 08/23/2014 | | Attending Surgeon:Dori Reed MD Scrap Crane Operator(s):Raffi Soria | | MD Moses Preoperative Diagnosis: Morbid obesity with a BMI of 76 | | and comorbidities that include obstructive sleep apnea, hypertension and | | asthma.Postoperative Diagnosis: Hepatomegaly and morbid obesity with a BMI of 76 and | | comorbidities that include obstructive sleep apnea, hypertension and asthma.Procedures | | Performed: 1.Diagnostic laparoscopy.2.Lysis of adhesions.3.Aborted laparoscopic sleeve | | gastrectomy.Indications: This 43-year-old female came to our weight loss clinic with a | | history of morbid obesity and the above-mentioned comorbidities, as she has undergone 2 | | prior laparoscopic adjustable gastric band placements, both of which had not provided | | the desired effect. She had been in our program and was thought, after a | | multidisciplinary evaluation, to be a good candidate for the above operation.Procedure | | In Detail: The patient was brought into the operating room where she was placed supine | | on the table. She received general endotracheal anesthesia, and the abdomen was prepped | | and draped in the usual sterile fashion. A time-out was taken to confirm the identity | | of the patient, the nature of the operation at hand, and that all necessary resources | | were available. A stab incision was made in the left upper quadrant through which a | | Veress needle was advanced and carbon dioxide was insufflated to achieve a | | pneumoperitoneum of 20 mmHg because she had a very heavy abdominal wall. The Veress | | needle was replaced with a 5 mm trocar through which a 5 mm angle laparoscope was | | advanced. Initial inspection of the abdominal contents revealed widespread adhesions in | | the upper abdomen, and a rather small working space. We also noted that her liver was | | extremely large, extending almost across both gutters and detention down the distance to | | her mid abdomen. It should be noted also that the patient had a prior history of | | abdominoplasty, which further caused a tightening of her abdominal wall and contributed | | to the reduction in intraabdominal space. Additional trocars were placed as follows: A | | 5 mm trocar was placed in the right lower quadrant, and this was used to introduce | | instruments for taking down some of the omental adhesions, and clearing up enough | | abdominal wall for the introduction of the remaining trocars which were as follows: A 5 | | mm trocar was placed in the left paramedian area in the mid abdominal section, there | | was no umbilicus to use as a landmark. A 5 mm trocar was also placed in the right upper | | quadrant, and a 15 mm trocar was placed in the right paramedian area. The patient was | | then placed in reverse Trendelenburg position and a Lesa retractor was advanced | | through a subxiphoid stab incision to lift up the left lobe of the liver. It should be | | mentioned that the liver appeared to be markedly infiltrated with fat and had a very | | large blunted and rounded edge, and was extremely heavy. It took considerable force to | | lift up the lobe of the liver and expose the anterior surface of the stomach. As we | | were doing this, we encountered numerous adhesions between the anterior surface of the | | stomach and the edge of the liver which were taken down with the LigaSure. Once we | | placed a retractor in position, it was attached to a table-mounted arm. We then noted | | that the proximal portion of the stomach was embedded in dense omental adhesions, | | clearly as a result of her prior gastric band procedures. We then proceeded to take | | down a lot of these adhesions, but found that the liver was still overhanging and | | occluding adequate view of the proximal stomach, and that it would prove nearly | | impossible to get a good view of the angle of His, and also the most farthest area of | | the fundus in order to dissect it free off the splenic hilum. At this point, I realized | | that this operation represented a degree of risk that was above and beyond that which is | | acceptable for an elective operation, mostly due to the hepatomegaly. I therefore | | decided that the prudent thing would be to abort and stop this operation at this time, | | and then request that my team work with the patient as to achieve a more significant | | weight loss, probably in the form of 20 or 30 additional pounds, which would surely | | decrease the size of the liver by at least 10% and provide more exposure and safety. | | Additionally, we were having severe difficulty with the thickness of the abdominal wall, | | which was causing an increased amount of torque and limitation of movements. We | | therefore removed the liver retractor, evacuated all the carbon dioxide and closed all | | trocar sites with 4-0 Vicryl after placing a #1 Vicryl suture across the fascial level | | of the 15 mm trocar site. The patient was then extubated and transferred to PACU in | | good condition.Dori Reed, [facility]: 08/23/2014 12:45:20DT: 08/23/2014 | | 14:10:20Job #: [id number] | + + documented in this encounter Visit Diagnoses + + | Diagnosis | + + | Morbid obesity (HCC) Morbid obesity | + + documented in this encounter Administered Medications + +--------+ +-------+------+ + | Medication Order | MAR | Action | Dose | Rate | Site | | | Action | Date | | | | + +--------+ +-------+------+ + | bupivacaine (PF) | Given | 08/24/19 | 24 mL | | Surgical | | (MARCAINE,SENSORCAINE-MPF) | | 15 11:37 | | | Site | | injection INTRAPROCEDURE PRN, | | AM PDT | | | | | Starting Thu08/23/14 at 1137, | | | | | | | Until Thu08/23/14 at 1236 | | | | | | + +--------+ +-------+------+ + +---+---+ | | | +---+---+ documented in this encounter
--- OUTSIDE RECORDS SUMMARY | ~2019-06-14 | XMS | Encounter Summary ---
Demographics + + + | Address | [address] | | | [place] [address] | + + + | Home Phone [...] | + + +---------+ + | [place] | ECON | Unknown | | + + +---------+ + Care Team Providers + +------+ + | Care Sport Shoe Spike Assembler Name | Role | Phone | [...] | | | | | | | [place], [place] | | | | | | | [address] | | | | | | | Phone: | | | | | | | [phone] | | | | | | | Fax: | | | | | | | [phone] | +--------+--------+ + + + + Encounter Details +--------+---------+ + + + | Date | Type | Department | Care Team | Description | +--------+---------+ + + + | 03/08/ | Office | [facility]ive [facility] | Margot Contreras RD | Morbid obesity (HCC) | | 2014 | Visit | Center at [address] | [address] | (Primary Dx); S/P | | | | [address] | [facility], | laparoscopic sleeve | | | | Mailcode: [place] | [place] [address] | gastrectomy; | | | | for Health and | | Diabetes mellitus | | | | Healing, [address] | | type 2, | | | | [place], [place] | | diet-controlled | | | | [address] | | ([facility]) | | | | [phone] | | | +--------+---------+ + + + [...] encounter Progress Notes Margot Contreras, RD - 03/08/2015 3:00 PM PDT Nutrition Counseling: Post-op Bariatric Surgery Follow-Up Patient referred by: [place] [address] Documented time of visit: 12:47 to 1:15 (28 minutes [id number] with patient) Surgery: Sleeve Gastrectomy Date of Surgery: 02/07/15 Subjective: Happy, says she is in a good place Any reported changes: no n/v/c/d Tolerating Bariatric Diet: Yes Current Physical Activity: walking Changes in Diabetes Medications since surgery: no Testing blood glucose: no Objective: Ht Readings from Last 1 Encounters: 03/08/15 1.6 m (5' 3") Wt Readings from Last 2 Encounters: 03/08/15 174.091 kg (383 lb 12.8 oz) 02/15/15 184.977 kg (407 lb 12.8 oz) 01/22/15 188.696 kg (416 lb) No weight in Epic on day of surgery pt reports weight ~414lbs BMI: 68 Weight change since surgery: lost 31lbs PMHx: Past Medical History Diagnosis Date Essential [...] echo and chest xray findings. Followed by area field person in [place]. Poor intravenous access Liver enlargement 01/2015 intraop Food logs: Yes Food choices: Premier, Isopure (Max 1 each/day), yogurt, cottage cheese, tuna, chicken dipp ed in ranch, chili beans, eggs, oatmeal, chicken and egg flower soup. Fluid choices: water and vitamin water zero Supplementation: multivitamin, calcium with vitamin D and vitamin B12. Dislikes taste of cu rrent MVI, discussed alternatives, should be chewable for the first 6 months. Assessment: Doing well. Discussed incorporating cooked vegetables and soft fruit. Discussed weaning off protein drinks as she is able to eat more solid food. Following Bariatric Diet Protocol: Yes Meeting protein goals: Yes Meeting fluid goals: Yes Fluids from meals: Yes Plan: Reviewed nutrition goals after bariatric surgery. Aim for 64 ounces of fluid and 60-80 grams of protein per day. Continue to follow post-surgery bariatric diet progression: Continue stage 3 according to b ariatric diet guidelines -Provided written & verbal education/review on stage 3 guidelines, including grocery list of stage 3 foods -Continue introducing soft/ground/moist protein foods -Once meeting protein goal consistently, gradually add up to 1/2 cup per meal of soft/cook ed fruits, vegetables, or starches -Continue to eat protein foods first; stop eating as soon as you begin to feel full -Add new foods one at a time -Avoid red meats, hard/crunchy foods, breads, rice, and pasta until 3 months post-surgery -Choose foods with < 14 g sugar [...] Continue to increase physical activity. Follow up ~3 months post-op. Margot Contreras RD, [facility], LD Pager# [phone] documented in this enco unter Plan of Treatment Not on filedocumented as of this encounter Procedures + +--------+ + + + | Procedure Name | Priori | Date/Time | Associated Diagnosis | Comments | | | ty | | | | + +--------+ + + + | [place] MNT RE-ASSESSMNT | Routin | 03/09/2015 | Morbid obesity | | | X15MIN | e | 7:09 AM | ([facility]) S/P | | | | | PDT | laparoscopic sleeve | | | | | | gastrectomy | | | | | | Diabetes mellitus | | | | | | type 2, | | | | | | diet-controlled | | | | | | ([facility]) | | + +--------+ + + + [...]
--- OUTSIDE RECORDS SUMMARY | ~2019-06-14 | XMS | Encounter Summary ---
Demographics + + + | Address | [address] | | | [place] [address] | + + + | Home Phone [...] | + + +---------+ + | [place] | ECON | Unknown | | + + +---------+ + Care Team Providers + +------+ + | Care Folder Operator Name | Role | Phone | + +------+ + | Bassam Ross DO | PCP | | + +------+ + Encounter Details +--------+ + + + + | Date | Type | Department | Care Team | Description | +--------+ + + + + | 07/05/ | Abstract | Digestive Health | Tilgner, Thania F, | | | 2013 | | Center at [facility] [address] | AC[address] | | | | | [address] | [place], [place] | | | | | Mailcode: [place] | [address] | | | | | for Health and | | | | | | [facility] [address] | | | | | | [place], [place] | | | | | | [address] | | | | | | | [...]
--- OUTSIDE RECORDS SUMMARY | ~2019-06-14 | XMS | Encounter Summary ---
Demographics + + + | Address | [address] | | | [place] [address] | + + + | Home Phone | | + + + | Preferred Language | Unknown | + + + | Marital Status | Single | + + + | Synagogue Affiliation | NRP | + + + [...] | + + +---------+ + | Lana Dell | ECON | Unknown | | + + +---------+ + Care Team Providers + +------+ + | Care Calender Operator Helper Name | Role | Phone [...] | | | | Essential | Hansa W, | MD Juan Antonio | | | | | hypertension | AGACNP [address] | [address] | | | | | , benign | [address] | Ave | | | | | Sleep apnea, | [place], | [place], [place] | | | | | unspecified | [place] | [address] | | | | | type | [address] | Phone: | | | | | Gastroesopha | Phone: | [phone] | | | | | geal reflux | [phone] | Fax: | | | | | disease, | Fax: | [phone] | | | | | esophagitis | [phone] | | | | | | presence [...] | | +--------+--------+ + + + + Consultation (Routine) + [...] | Essential | Hansa W, | [address] | | | | Metabolism | hypertension | AGACNP [address] | [facility] | | | | | , benign | [address] | Loop | | | | | Sleep apnea, | [place], | Physician's | | | | | unspecified | [place] | Pavilion | | | | | type | [address] | Physician's | | | | | Gastroesopha | Phone: | Pavilion | | | | | geal reflux | | [place], [place] | | | | | disease, | Fax: | [phone] | | | | | esophagitis | [phone] | Phone: | | | | | presence not | | [phone] | | | | | specified | | Fax: | | | | | Vitamin D | | [phone] | | | | | deficiency | [...] | | | | | | | [address] | | | | | | | Mailcode: | | | | | | | [place] [facility] | | | | | | | [facility] and | | | | | | | Healing, | | | | | | | [address] | | | | | | | [place], [place] | | | | | | | [address] | | | | | | | Phone: | | | | | | | [phone] | | | | | | | Fax: | | | | | | | [phone] | +--------+--------+ + + + + Encounter Details +--------+---------+ + + + | Date | Type | Department | Care Team | Description | +--------+---------+ + + + | 06/16/ | Office | Digestive Health | Hansa Hawkins, | S/P laparoscopic | | 2018 | Visit | Center at [facility] [address] | AGACNP [address] | sleeve gastrectomy | | | | [address] | Ave [place], [place] | (Primary Dx); | | | | Mailcode: Center | [address] | Essential | | | | for Health and | | hypertension, | | | | Healing, [address] | | benign; Sleep apnea, | | | | [place], [place] | | unspecified type; | | | | [address] | | Gastroesophageal | | | | [...] | | | | adult ([facility]); | | | | | | Diabetes [...] Pressure | 124/84 | 06/16/2017 3:22 PM | | | | | PST | | + + + + + | Pulse | 84 | 06/16/2017 3:22 PM | | | | | PST | | + + + + + | Temperature | 36.9 C (98.5 F) | 06/16/2017 3:22 PM | | | | | PST [...] kg (406 lb | 06/16/2017 3:22 PM | | | | 12.8 oz) | PST | | + + + + + | Height | 160 cm (5' 3") | 06/16/2017 3:22 PM | | | | | PST | | + + + + + | Body Mass Index | 72.06 | 06/16/2017 3:22 PM | | | | | PST | | + + + + + documented in this encounter Patient Instructions Patient Instructions Hansa Hawkins AGACNP - 06/16/2017 3:05 PM PST-start journaling fo od intake again, download [employer] samuel. -make appt with Mihaela for nutritional support -make appt with Dr. Mclaughlin's office for medical management of weight loss. -I will send you a mychart in the next week, if you dont hear from me please send me a mess age. -return to clinic next month to meet with alysa Chairez. documented in this encounter Progress Notes Hansa Hawkins AGACNP - 06/16/2017 3:05 PM PSTFormatting of this note might be differen t from the original. BARIATRIC SURGERY FOLLOW-UP ID: [...] a "partial sleeve". Activity: Walking daily, with christianity friends. Fluids: getting 64 oz fluid daily. [...] echo and chest xray findings. Followed by underwriting service representative in [place]. Shortness of breath Thyroid disease Past Surgical History Procedure Laterality Date C section 1998 Tonsillectomy 1996 Knee surgery 1997 Gastric banding 2004, 2007, 2011 Skin and subcutaneous tissue surgery 2006 Foot surgery 2010 - 2011 3x Hysterectomies, vaginal 2009 Appendectomy for ruptured appendix with abscess 2012 Gallbladder surgery 2008 Laparotomy 07/2014 Laparoscopic sleeve gastrectomy 02/07/2015 [facility] Brianna Social History Social History Marital [...] sinus rhythm. Normal ECG Records reviewed from [employer] (see media tab): Echocardiogram 11/18/2013: 1. Sinus [...] There is no pericardial effusion.21. No mass [id number]. Po or visualization. Definity was used to opacify the left ventricular chamber and improve deli neation of the endocardial border. Family History Problem Relation Diabetes Father Hypertension Mother Obesity Mother Hypertension Father Heart Disease Father [place] 78 Allergies Allergies Allergen Reactions Advair Diskus [...] is having daily. -I suggested making another fugitive detective appt for next month to discuss possible [...] to plan and will call and/or send [employer] message if any issues. Start time 0315, end time 0350. I spent a total of 35 minutes face to face with this patie nt. Over 50% of visit was in counseling. ORLY Rodriguez Bariatric Surgery Nurse Practitioner [facility] | [address] | [place], [place] | [address] | documented in th is encounter Plan of Treatment Not on filedocumented as of this encounter Results HEMOGLOBIN A1C, BLOOD (06/16/2017 4:22 PM PST) [...] | [facility] | | considered for monitoring assisted glycemic control in patients with: | LABORATORY [...] LABORATORY | [address] | [place] [address] | | | SERVICES, SPECIAL | PARK [...] LABORATORY | [address] | [place] [address] | | | SERVICES, CORE | PARK [...] and | 50 - 200 ng/mL | [facility] | | | | Female >18 years: [...] | + + + + + | [place] | [address] | [place] [address] | | | SERVICES, MIR | NANCY [...] | | | LABORATORY | | | CHADIAN | | | SERVICES, | | | [...] | + + + + + | [facility] | [address] | [place] [address] | | | SERVICES, MIR | NANCY [...] | | | | | determined by [facility] | | | | | | Laboratories. See | | | | | | Compliance Statement B: | | | | | | memory lane syndications.Kimengi/CSPerformed | | | | | | by [employer],[address] | | | | | | [facility] [place] | | | | | | [address] | | | | | | [phone].memory lane syndications. | | | | | | comIker MD, | | | | | | [...] [facility] | [address] | [place], [place] | | | [facility] | | [address] | | + + + + + [...] | + + + + + | [facility] | [address] | [place] [address] | | | SERVICES, CORE | NANCY [...] | + + + + + | [place] | [address] | [place] [address] | | | SERVICES, CORE | NANCY [...] | New Reference Range effective 17. | [facility] | | | LABORATORY | | | SERVICES, CORE | + + + + + + + + | Performing | Address | City/State/Zipcode | Phone Number | | Organization | | | | + + + + + | [facility] | [address] | [place] [address] | | | SERVICES, CORE | NANCY [...] deficiencies | + + | Physical deconditioning Debility, unspecified | + + | Hx [...]
--- OUTSIDE RECORDS SUMMARY | ~2019-06-14 | XMS | Encounter Summary ---
Demographics + + + | Address | [address] | | | [place] [address] | + + + | Home Phone [...] | Author | [facility] | | | and [place] | + + + | Organization | [facility] | | [...] Team Providers + +------+ + | Care Stem Shaper Name | Role | Phone | + [...] Telephone | [facility] [place] | Anita Lu W, | Nephrology | | 2018 | | NEPHROLOGY [address] | MD [address] | Appointment | | | | [address] | [address] [place] | | | | | [place], [place] | [place] [address] | | | | | [address] | [phone] | | | | | [phone] | | | +--------+ + + + [...] | 2019 | Visit | | [address] | | | | | | [place] | | | | | | [address] | | | | | | | | +--------+---------+ + + + | 01/18/ | Office | Sleep Medicine | Jermaine Fairchild | | | 2019 | Visit | | MD Lars [address] | | | | | | [place] | | | | | | [place] [address] | | | | | | [phone] | | | | | | | | +--------+---------+ + + + documented as of this encounter Visit Diagnoses Not on filedocumented in this encounter"
--- OUTSIDE RECORDS SUMMARY | ~2019-06-14 | XMS | Encounter Summary ---
Demographics + + + | Address | [address] | | | [place] [address] | + + + | Home Phone [...] | + + +---------+ + | Lana Eufaula | ECON | Unknown | | + + +---------+ + Care Team Providers + +------+ + | Care Payment Poster Name | Role | Phone | + +------+ + | Bassam Ross DO | PCP | | + +------+ + Encounter Details +--------+ + + + + | Date | Type | Department | Care Team | Description | +--------+ + + + + | 05/29/ | MyChart | [facility] Comprehensive | Gera Bowers, | RE: requirements | | 2013 | Encounter | Pain Center at | PhD [address] | | | | | [facility] | [address] [facility] [place] | | | | | [address] | [address] | | | | | Mailcode: [facility] | [phone] | | | | | [facility] | | | | | | and Healing, | | | | | | Building | | | | | | Floor [place], [place] | | | | | | [address] | | | | | | [phone] | | | +--------+ + + + [...]
--- OUTSIDE RECORDS SUMMARY | ~2019-06-14 | XMS | Encounter Summary ---
Demographics + + + | Address | [address] | | | [place] [address] | + + + | Home Phone | | + + + | Preferred Language | Unknown | + + + | Marital Status | Single | + + + | Yarsani Affiliation | Unknown | + + + | Race | Unknown | + + + | Ethnic Group | Unknown | + + + Author + + + | Author | [facility] | | | and [place] | + + + | Organization | [facility] | | | and [...] Team Providers + +------+ + | Care Hearing Aid Specialist Name | Role | Phone | + +------+ + | Bassam Ross DO | PCP | | + +------+ + Reason for Visit +--------+ + | Reason | Comments | +--------+ + | Asthma | 1 mo follow up | +--------+ + Evaluate & Treat (Routine) +--------+--------+ + + + + | Status | Reason | Specialty | Diagnoses / | Referred By | Referred To | | | | | Procedures | Contact | Contact | +--------+--------+ + + + + | Closed | | Pulmonary | Diagnoses | Walker, | [place], | | | | Disease / | Chronic | Bassam Mattson DO | MD Adolfo | | | | Pulmonology | obstructive | [address] | [address] | | | | | pulmonary | [address] | [place], | | | | | disease, | [address] | [place] [address] | | | | | unspecified | [address] | Phone: | | | | | (HCC) | [place] | [phone] | | | | | Obstructive | [address] | Fax: | | | | | sleep apnea | Phone: | [phone] | | | | | (adult) | [phone] | | | | | | (pediatric) | | | | | | | Procedures | | | | | | | F/U | | | +--------+--------+ + + + + Encounter Details +--------+---------+ + + + | Date | Type | Department | Care Team | Description | +--------+---------+ + + + | 11/14/ | Office | [facility] | Adolfo Zazueta, | Mild persistent | | 2016 | Visit | PULMONARY [address] | MD [address] | asthma without | | | | [place], | [place], [place] | complication | | | | [place] [address] | [address] | (Primary Dx) | | | | [phone] | | | +--------+---------+ + + + [...] + + + | Blood Pressure | 130/84 | 11/15/2015 9:56 AM | | | | | PDT | | + + + + + | Pulse | 76 | 11/15/2015 9:56 AM | | | | | PDT | | + + + + + | Temperature | - | - | | + + + + + | Respiratory Rate | - | - | | + + + + + | Oxygen Saturation | 95% | 11/15/2015 9:56 AM | | | | | PDT | | + + + + + | Inhaled Oxygen | - | - | | | Concentration | | | | + + + + + | Weight | 168.4 kg (371 lb 4.8 | 11/15/2015 9:56 AM | | | | oz) | PDT | | + + + + + | Height | 157.5 cm (5' 2") | 11/15/2015 9:56 AM | | | | | PDT | | + + + + + | Body Mass Index | 67.91 | 11/15/2015 9:56 AM | | | | | PDT | | + + + + + documented in this encounter Patient Instructions Patient Instructions Adolfo Zazueta MD - 11/15/2015 9:45 AM PDT Asthma (Adult) Asthma is a disease where [...] more than every 4 hours, contact your [facility] provider or seek immediate medical [...] not already have one, talk to your [facility] provider about developing a personalized "Asthma Action [...] Lips or fingernails turning arizmendi or blue 3430-0139 [employer]. [address] [place] [address], [place] [address]. All righ ts reserved. This information is not intended as a substitute for professional medical care. Always follow your healthcare professional's instructions. documented in this encounter Progress Notes Adolfo Zazueta MD - 11/15/2015 9:40 AM PDTFormatting of this note might be different f rom the original. Pulmonary Follow Up 11/15/2015 HPI Aspen Darden is a 45 y.o. female patient of Bassam Ross DO here today for follow up of a [facility]. The patient's last visit was on 10/11/15. Since the last visit she feels like their asthma has been decreasing. At the time of our last clinic appointment Qvar 2 puffs twice a day w as initiated. They have not had any acute illnesses resulting in worsening asthma symptoms. They have not required a burst of prednisone since our last appointment. Specifically 0 tapers of prednisone have occurred over the interval. Lastly Aspen notes 0 ED visits and 0 h ospitalizations for asthma have occurred since the last appointment. Their controller medication regimen currently consists of Qvar. They do feel like this med ication regimen is effective at controlling their symptoms. Currently Aspen is using their rescue albuterol, Ventolin, 2 times a month. Triggers of their asthma include URIs. She does not have nocturnal symptoms of wheezing, c hest tightness or cough. She does not measure their peak flow. The patient notes less in t he way of wheezing. Currently Aspen reports being able to walk 2 blocks at their own pace on level ground befor e becoming symptomatic. They are exercising regularly by walking. She does not cough chronically, and does not produce mucous. She does not report symptoms of heartburn or acid reflux. They have not had recent symptoms of nasal congestion, runny nose or post nasal drip. Past Medical History Past Medical History Diagnosis Date Obesity Central alveolar hypoventilation syndrome ANNABEL (obstructive sleep apnea) ~2003 Wears CPAP, sees Dr. Fairchild Periodic limb movement disorder (PLMD) Depression with anxiety Nephrotic syndrome Previous. Resloved per pt. resport. COPD (chronic obstructive pulmonary disease) ([facility]) patent denies Osteoarthritis Hypothyroidism Vitamin D deficiency Anemia patent denies Insomnia Hypertensive disorder Lymphedema Allergic rhinitis due to pollen Cyst of ovary Endometriosis s/p GLENN BSO Asthma adult diagnosis MRSA (methicillin resistant Staphylococcus aureus) septicemia ([facility]) left foot source Fracture, humeral 2012 [...] Twice daily as needed., Disp: , Rfl: beclomethasone (QVAR) 80 mcg/puff inhaler, Inhale 2 puffs into the lungs 2 times daily ., Disp: 1 Inhaler, Rfl: 0 benzonatate (TESSALON) 100 mg capsule, Take 100 [...] t imes a week., Disp: , Rfl: furosemide (LASIX) 40 mg tablet, 40 mg as needed., Disp: , Rfl: HYDROcodone-acetaminophen (NORCO) 5-325 mg per tablet, take one - two tablets by mouth every six hours if needed for pain, Disp: , Rfl: G-Jwqfbjrmhpos-[id number]-B2 (CEREFOLIN) 6-1-50-5 MG TABS, Take by mouth., Disp: , Rfl: levothyroxine (SYNTHROID, LEVOTHROID) 75 MCG tablet, Take one tablet daily, Disp: , Rf l: 1 PARoxetine (PAXIL) 10 mg tablet, 40 mg every morning., Disp: , Rfl: 0 pramipexole (MIRAPEX) 1.5 MG tablet, Take 75 [...] Date(s) Administered INFLUENZA, TRIVALENT PRESERVATIVE FREE (PED/ADOL/ADULT) 02/21/2013, 03/01/2015 PNEUMOCOCCAL POLYSACCHARIDE 23-VALENT (PPSV23) 07/02/2013 Review of Systems Constitutional: Denies fever, chills, sweats, fatigue/weakness, and unexpected weight luna ge. Sleep: Denies trouble sleeping, excessive snoring, and daytime sleepiness. Eyes: Denies vision change, and eye irritation. ENT: Denies earache, tinnitus, decreased hearing, nosebleeds, sore throat, and hoarseness. Resp: See HPI. CV: Denies neck/chest/jaw pain with exertion, palpitations, lightheadedness, syncope, dysp frances on exertion, orthopnea, PND, peripheral edema, and claudication. GI: Denies trouble swallowing, nausea, vomiting, abdominal pain, diarrhea,melena, and hem atochezia. Neurologic: Denies frequent headaches, seizures, tremors, numbness or tingling in hands or feet, vertigo, and falls in the past 6 months. Allergy Denies urticaria, allergic rash, hay fever. Objective BP 130/84 mmHg | Pulse 76 | Ht 1.575 m (5' 2") | Wt 168.421 kg (371 lb 4.8 oz) | BMI 67.89 kg/m2 | SpO2 95% | ? No Appearance: Alert, cooperative, no [...] gallop. Extremities: Extremities normal, atraumatic, no cyanosis, clubbing, or edema. Skin: Warm and dry. Lymph nodes: Cervical and supraclavicular nodes normal. Neurologic: Gait normal. Data: None Assessment 1. Asthma mild persistent. Subjective improvement of symptoms with the initiation of Qv ar. The patient chews of Ventolin has likewise decreased. Ms. Darden is willing to use inhaled steroids long-term. 2. Restrictive lung disease most likely secondary to obesity. Improvement in PFT abnorm alities with weight loss. 3. Obstructive sleep apnea using CPAP. Not addressed during this clinic appointment. Plan 1. Continue Qvar 80 g per puff 2 puffs twice daily. 2. Seasonal influenza vaccination March 2016. CC: Bassam Ross DO documented in this [...] [place] | | | | | | [address] | | | | | | | | +--------+---------+ + + + | 01/18/ | Office | Sleep Medicine | Jermaine Fairchild | | | 2019 | Visit | | MD [address] | | | | | | [place] | | | | | | [place] [address] | | | | | | [phone] | | | | | | | | +--------+---------+ + + + documented as of this encounter Visit Diagnoses + + | Diagnosis | + + | Mild persistent asthma without complication - Primary Unspecified asthma | + + documented in this encounter
--- OUTSIDE RECORDS SUMMARY | ~2019-06-14 | XMS | Encounter Summary ---
Demographics + + + | Address | [address] | | | [place] [address] | + + + | Home Phone | | + + + | Preferred Language | Unknown | + + + | Marital Status | Single | + + + | Anabaptist Affiliation | Unknown | + + + | Race | Unknown | + + + | Ethnic Group | Unknown | + + + Author + + + | Author | [facility] | | | and [place] | + + + | Organization | [facility] | | [...] Team Providers + +------+ + | Care Fabrication Machine Operator Name | Role | Phone [...] Description | +--------+--------+ + + + | 10/23/ | Refill | [facility] [place] | Adolfo Zazueta, | Medication Refill | | 2014 | | PULMONARY [address] | MD [address] | | | | | [place], | [place], [place] | | | | | [place] [address] | [address] | | | | | [phone] | | | +--------+--------+ + + + [...] [place] | | | | | | [address] | | | | | | | | +--------+---------+ + + + | 01/18/ | Office | Sleep Medicine | Jermaine Fairchild | | 2019 | Visit | | MD [address] | | | | | | [address] | | | | | | [place] [address] | | | | | | [phone] | | | | | | | | +--------+---------+ + + + documented as of this encounter Visit Diagnoses Not on filedocumented in this encounter"
--- OUTSIDE RECORDS SUMMARY | ~2019-06-14 | XMS | Encounter Summary ---
Demographics + + + | Address | [address] | | | [place] [address] | + + + | Home Phone | | + + + | Preferred Language | Unknown | + + + | Marital Status | Single | + + + | Sabianism Affiliation | NRP | + + + [...] | + + +---------+ + | [place] | ECON | Unknown | | + + +---------+ + Care Team Providers + +------+ + | Care Sample Patternmaker Name | Role | Phone | + [...] Pharmacy | | | | | | [address] | | | | | | [place], [place] | | | | | | [address] | | | | | | [phone] | | | +--------+ + + + [...]
--- OUTSIDE RECORDS SUMMARY | ~2019-06-14 | XMS | Encounter Summary ---
Demographics + + + | Address | [address] | | | [place] [address] | + + + | Home Phone [...] Author | [facility] | + + + | Organization | [facility] | + + + | Address | [...] | + + +---------+ + | Lana Corning | ECON | Unknown | | + + +---------+ + Care Team Providers + +------+ + | Care Remote Operations Producer Name | Role | Phone | + +------+ + PCP | Unavailable | + +------+ + Encounter Details +--------+ + + + + | Date | Type | Department | Care Team | Description | +--------+ + + + + | 08/31/ | Office | [facility] | Note, Outpatient | Progress Note | | 1998 | Visit-Trans | MEDICINE | Clinic | | | | cribed | | | | +--------+ + + [...] documented as of this encounter Progress Notes Interface, Soa Integration Architect In - 05/24/2006 3:06 AM PSTCLINIC DATE: 08/31/1998 [facility] SUBJECTIVE: The patient is a 27-year-old G1, P1 who presented to the clinic for two-week visit. The patient was admitted to the hospital on August 14 at [facility] for superimposed preeclampsia and chronic hypertension with intrauterine growth retardation and hydramnios. The patient received a classical section with a vertical skin excision and bilateral tubal ligation on August 15. The patient was discharged home on August 20. She has been receiving care with Dr. Nye at [facility]. The patient noted wound infection the first week visit with Dr. Nye and has been taking antibiotics, Keflex, four times a day. Her wound care has been mainly performed by her father. Per her father the wound has been improved with light discharge, mostly clear. Her father also mentioned her wound is now healing up. The patient denies episodes of fever or chills. She has no abdominal cramping or foul vaginal discharge, no heavy vaginal bleeding. She has no dysuria. Her bowel movements have been regular. She has no coughing, no shortness of breath. She has been breast pumping because the baby has been kept in the intensive care unit at [facility] for prematurity. Her baby was discharged home yesterday. The patient drove to [place] to package pick up her baby and wants to be seen in the clinic today. She says everything is going well with her and she has no blues or depression. OBJECTIVE: Blood pressure is 126/76. In general, the patient is morbidly obese and very pleasant. Lungs are clear. Heart has regular rate and rhythm. Her vertical skin incision is mostly healed. There is an area about 2 cm that is packed with gauze. The discharge is clear. There is no surrounding redness or induration. She has no abdominal tenderness. Extremities: no edema. ASSESSMENT: This is a two-week visit. The patient in general has no problems. She is doing well. Her wound infection has greatly resolved and the wound is healing. She also has a history of polycystic ovarian disease. PLAN: 1. The patient will return to Dr. Nye for her six-week visit. Regarding her history of polycystic ovarian disease she will restart Provera to regulate her periods. 2. The patient was told she does not need to take control pills because she already received a tubal ligation and she has a risk of clotting with morbid obesity and her relatively sedentary lifestyle. 3. The patient declined counseling stating she has been consulted by a treatment specialist at [facility]. Renato Huffman/safia cc: Jermaine Nye M.D. [facility] signed by Interface, Soa Integration Architect In at 05/24/2006 3:06 AM PSTInterface, Soa Integration Architect In - 05/24/2006 3:06 AM PSTCLINIC DATE: 08/31/1998 [facility] SUBJECTIVE: The patient is a 27-year-old G1, P1 who presented to the clinic for two-week visit. The patient was admitted to the hospital on August 14 at [facility] for superimposed preeclampsia and chronic hypertension with intrauterine growth retardation and hydramnios. The patient received a classical section with a vertical skin excision and bilateral tubal ligation on August 15. The patient was discharged home on August 20. She has been receiving care with Dr. Nye at [facility]. The patient noted wound infection the first week visit with Dr. Nye and has been taking antibiotics, Keflex, four times a day. Her wound care has been mainly performed by her father. Per her father the wound has been improved with light discharge, mostly clear. Her father also mentioned her wound is now healing up. The patient denies episodes of fever or chills. She has no abdominal cramping or foul vaginal discharge, no heavy vaginal bleeding. She has no dysuria. Her bowel movements have been regular. She has no coughing, no shortness of breath. She has been breast pumping because the baby has been kept in the intensive care unit at [facility] for prematurity. Her baby was discharged home yesterday. The patient drove to [place] to package pick up her baby and wants to be seen in the clinic today. She says everything is going well with her and she has no blues or depression. OBJECTIVE: Blood pressure is 126/76. In general, the patient is morbidly obese and very pleasant. Lungs are clear. Heart has regular rate and rhythm. Her vertical skin incision is mostly healed. There is an area about 2 cm that is packed with gauze. The discharge is clear. There is no surrounding redness or induration. She has no abdominal tenderness. Extremities: no edema. ASSESSMENT: This is a two-week visit. The patient in general has no problems. She is doing well. Her wound infection has greatly resolved and the wound is healing. She also has a history of polycystic ovarian disease. PLAN: 1. The patient will return to Dr. Nye for her six-week visit. Regarding her history of polycystic ovarian disease she will restart Provera to regulate her periods. 2. The patient was told she does not need to take control pills because she already received a tubal ligation and she has a risk of clotting with morbid obesity and her relatively sedentary lifestyle. 3. The patient declined counseling stating she has been consulted by a treatment specialist at [facility]. Renato Huffman/safia cc: Jermaine Nye M.D. [place] documented in this encounter Plan of Treatment Not on filedocumented as of this encounter Visit Diagnoses Not on filedocumented in this encounter"
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
--- OUTSIDE RECORDS SUMMARY | ~2019-06-14 | XMS | Encounter Summary ---
Demographics + + + | Address | [address] | | | [place] [address] | + + + | Home Phone [...] | + + +---------+ + | Lana [place] | ECON | Unknown | | + + +---------+ + Care Team Providers + +------+ + | Care Transportation Solutions Manager Name | Role | Phone | + +------+ + | Bassam Ross DO | PCP | | + +------+ + Encounter Details +--------+ + + + + | Date | Type | Department | Care Team | Description | +--------+ + + + + | 02/14/ | Abstract | [facility] | Clinic, Surgery | | | 2016 | | [facility] [address] | | | | | | [address] | | | | | | Mailcode: [place] | | | | | | [facility] and | | | | | | Healing, [address] | | | | | | [place], [place] | | | | | | [address] | | | | | | [phone] | | | +--------+ + + + [...]
--- OUTSIDE RECORDS SUMMARY | ~2019-06-14 | XMS | Encounter Summary ---
Demographics + + + | Address | [address] | | | [place] [address] | + + + | Home Phone [...] | + + +---------+ + | [place] | ECON | Unknown | | + + +---------+ + Care Team Providers + +------+ + | Care Research Consultant Name | Role | Phone | + +------+ + | Iqra Peralta MD | PCP | | + +------+ + Encounter Details +--------+ + + + + | Date | Type | Department | Care Team | Description | +--------+ + + + + | 02/08/ | Pharmacy | Outpatient Retail | | | | 2014 | Visit | [facility] | | | | | | [address] | | | | | | [address] [place], [place] | | | | | | [address] | | | | | | [phone] | | | +--------+ + + + [...]
--- OUTSIDE RECORDS SUMMARY | ~2019-06-14 | XMS | Encounter Summary ---
Demographics + + + | Address | [address] | | | [place] [address] | + + + | Home Phone | | + + + | Preferred Language | Unknown | + + + | Marital Status | Single | + + + | Episcopalian Affiliation | Unknown | + + + | Race | Unknown | + + + | Ethnic Group | Unknown | + + + Author + + + | Author | [facility] | | | and [place] | + + + | Organization | [facility] | | | and [place] | + [...] Team Providers + +------+ + | Care Public Policy Mediator Name | Role | Phone | + +------+ + | Iqra Peralta MD | PCP | | + +------+ + Encounter Details +--------+ + + + + | Date | Type | Department | Care Team | Description | +--------+ + + + + | 02/19/ | Orders Only | [facility] | Iqra Peralta V, | | | 2016 | | CONVERSION [address] | [address] | | | | | [place] | [place] | | | | | [place], [place] | [address] | | | | | [address] | | | | | | [phone] | | | +--------+ + + + [...] [place] | | | | | | [address] | | | | | | | | +--------+---------+ + + + | 01/18/ | Office | Sleep Medicine | Jermaine Fairchild | | 2019 | Visit | | MD Jac Sousa | | | | | | [address] | | | | | | [place] [address] | | | | | | [phone] | | | | | | | | +--------+---------+ + + + documented as of this encounter Procedures + +--------+ + + + | Procedure Name | Priori | Date/Time | Associated Diagnosis | Comments | | | ty | | | | + +--------+ + + + | ECHO INTERPRETATION | Routin | 02/19/2017 | | Results for this | | OF OUTSIDE FILMS | e | 2:29 PM | | procedure are in the | | | | PDT | | results section. | + +--------+ + + + documented in this encounter Results ECHO Interpretation of Outside Films (02/19/2017 2:29 PM PDT) + + | Specimen | + + | | + + + + + | Impressions | Performed At | + + + | 1. This was a technically difficult study with suboptimal views due | | | to patient's body habitus. 2. The left ventricle appears normal in | | | size, mild concentric hypertrophy and normal systolic function EF | | | 60-65%. 3. The right ventricle appears mildly enlarged with normal | | | systolic function. 4. There is no pericardial effusion. | | + + + + + + | Narrative | Performed At | + + + | Patient Name: DEANN JOSÉ Date of : 1970 | | | Performing Physician: Bassam Hernandez | | | | | | INDICATIONS STAT INPATIENT: SOB CONCLUSIONS | | | 1. This was a technically difficult study with suboptimal | | | views due to patient's body habitus. 2. The left ventricle appears | | | normal in size, mild concentric hypertrophy and normal systolic | | | function EF 60-65%. 3. The right ventricle appears mildly enlarged | | | with normal systolic function. 4. There is no pericardial effusion. | | | FINDINGS -------- ECG rhythm: Atrial fibrillation. Study: A | | | 2-dimensional transthoracic echocardiogram with m-mode, spectral and | | | color flow Doppler was perfomed. Study: This was a technically | | | difficult study with suboptimal views. Left Ventricle: Overall left | | | ventricular systolic function is normal with, an EF between 65 - 70 %. | | | Left Ventricle: The left ventricle cavity size is normal. Left | | | Ventricle: There is moderate concentric left ventricular hypertrophy. | | | Left Ventricle: No obvious regional wall motion abnormalities. Right | | | Ventricle: The right ventricle is mildly enlarged. Right Ventricle: | | | The right ventricular systolic function is normal. Left Atrium: The | | | left atrium is mildly dilated. Right Atrium: The right atrium is | | | mildly enlarged. Aortic Valve: The aortic valve was not well | | | visualized. Aortic Valve: There is no evidence of aortic | | | regurgitation. Aortic Valve: There is no evidence of aortic stenosis. | | | Mitral Valve: There is trace mitral regurgitation. Mitral Valve: | | | Mild mitral annular calcification present. Tricuspid Valve: The | | | tricuspid valve was not well visualized. Tricuspid Valve: Trace | | | tricuspid regurgitation present. Tricuspid Valve: There is no | | | evidence of pulmonary hypertension. Tricuspid Valve: The right | | | ventricular systolic pressure (pulmonary artery systolic pressure), as | | | measured by Doppler, is 33.03mmHg. Pulmonic Valve: The pulmonic | | | valve was not well visualized. Pericardium: There is no pericardial | | | effusion. Pericardium: No pleural effusion seen. IVC/Hepatic Veins: | | | The IVC is dilated (>2.5cm) and collapses <50% with sniff, consistent | | | with central venous pressures of 15-20mmHg. Aorta: Arch not seen. | | | MEASUREMENTS RA Area: 26.50 cm2 Ao asc: 2.89 | | | cm Ao Diam: 3.[address] junct: 2.70 cm IVC: 3.13 cm LA | | | Diam: 4.49 cm LA Major: 5.63 cm EDV(Teich): 118.43 ml | | | IVSd: 1.40 cm LVIDd: 5.00 cm LVPWd: 1.39 cm LVOT Area: | | | 3.67 cm2 LVOT Diam: 2.16 cm %FS: 43.94 % EF(Teich): 74.94 | | | % ESV(Teich): 29.66 ml LVIDs: 2.80 cm SV(Teich): 88.76 ml | | | RA Major: 5.95 cm RV Major: 6.67 cm RVIDd: 3.25 cm LVEF | | | MOD A2C: 64.06 % SV MOD A2C: 45.92 ml LVEF MOD A4C: 66.51 % | | | SV MOD A4C: 68.85 ml EF Biplane: 62.83 % LVEDV MOD BP: | | | 89.54 ml LVESV MOD BP: 33.27 ml LVEDV MOD A2C: 71.67 ml LVLd | | | A2C: 7.29 cm LVEDV MOD A4C: 103.51 ml LVLd A4C: 7.44 cm | | | LVESV MOD A2C: 25.75 ml LVLs A2C: 6.19 cm LVESV MOD A4C: | | | 34.65 ml LVLs A4C: 6.46 cm LAESV(A-L): 102.24 ml LAESV Index | | | (A-L): 39.32 ml/m2 LAAs A2C: 25.74 cm2 LAESV A-L A2C: 96.43 | | | ml LAESV MOD A2C: 87.85 ml LALs A2C: 5.83 cm LAAs A4C: | | | 27.29 cm2 LAESV A-L A4C: 97.19 ml LAESV MOD A4C: 92.98 ml | | | LALs A4C: 6.50 cm RAAs: 21.15 cm2 RAESV A-L: 63.42 ml | | | RAESV MOD: 61.37 ml RALs: 5.98 cm TAPSE: 1.97 cm AV maxPG: | | | 8.17 mmHg AV meanP.58 mmHg AV Vmax: 1.42 m/s AV | | | Vmean: 1.00 m/s AV VTI: 30.07 cm MIKHAIL Vmax: 2.99 cm2 MIKHAIL | | | (VTI): 2.79 cm2 AVAI Vmax: 0.00 cm2/m2 AVAI (VTI): 0.00 | | | cm2/m2 LVOT maxP.41 mmHg LVOT meanP.99 mmHg LVSI | | | Dopp: 32.37 ml/m2 LVSV Dopp: 84.17 ml LVOT Vmax: 1.16 m/s | | | LVOT Vmean: 0.81 m/s LVOT VTI: 22.87 cm MV A Gregg: 0.02 m/s | | | MV DecT: 193.42 ms MV E Gregg: 1.45 m/s MV E/A Ratio: 72.22 | | | MV PHT: 53.67 ms MVA By PHT: 4.09 cm2 Septal e': 0.06 m/s | | | Septal E/e': 21.80 Lateral e': 0.08 m/s Lateral E/e': | | | 18.12 RAP: 20 mmHg RV S': 0.13 m/s RVSP: 33.03 mmHg TR | | | maxP.03 mmHg TR Vmax: 1.80 m/s Loss Prevention Officer: NORMAN | | | Authenticated by: Bassam Hernandez Report Date/Time: 02-19-2017 | | | 22:25:33 | | + + + + + | Procedure Note | + + | Tommy Gloria Conversion - 01/20/2019 6:05 PM PDT Patient Name: Jade JOSÉ of | | : 1970 Performing Physician: Bassam | | Mary INDICATIONS------ | | -----STAT INPATIENT: SOB CONCLUSIONS 1. This was a technically difficult | | study with suboptimal views due to patient's body habitus.2. The left ventricle appears | | normal in size, mild concentric hypertrophy and normal systolic function EF 60-65%.3. | | The right ventricle appears mildly enlarged with normal systolic function.4. There is no | | pericardial effusion. FINDINGS--------ECG rhythm: Atrial fibrillation.Study: A | | 2-dimensional transthoracic echocardiogram with m-mode, spectral and color flow Doppler | | was perfomed.Study: This was a technically difficult study with suboptimal views.Left | | Ventricle: Overall left ventricular systolic function is normal with, an EF between 65 - | | 70 %.Left Ventricle: The left ventricle cavity size is normal.Left Ventricle: There is | | moderate concentric left ventricular hypertrophy.Left Ventricle: No obvious regional | | wall motion abnormalities.Right Ventricle: The right ventricle is mildly enlarged.Right | | Ventricle: The right ventricular systolic function is normal.Left Atrium: The left | | atrium is mildly dilated.Right Atrium: The right atrium is mildly enlarged.Aortic Valve: | | The aortic valve was not well visualized.Aortic Valve: There is no evidence of aortic | | regurgitation.Aortic Valve: There is no evidence of aortic stenosis.Mitral Valve: There | | is trace mitral regurgitation.Mitral Valve: Mild mitral annular calcification | | present.Tricuspid Valve: The tricuspid valve was not well visualized.Tricuspid Valve: | | Trace tricuspid regurgitation present.Tricuspid Valve: There is no evidence of pulmonary | | hypertension.Tricuspid Valve: The right ventricular systolic pressure (pulmonary artery | | systolic pressure), as measured by Doppler, is 33.03mmHg.Pulmonic Valve: The pulmonic | | valve was not well visualized.Pericardium: There is no pericardial effusion.Pericardium: | | No pleural effusion seen.IVC/Hepatic Veins: The IVC is dilated (>2.5cm) and collapses | | <50% with sniff, consistent with central venous pressures of 15-20mmHg.Aorta: Arch not | | seen. MEASUREMENTS RA Area: 26.50 cm2Ao asc: 2.89 cmAo Diam: 3.41 cmAo | | st junct: 2.70 cmIVC: 3.13 cmLA Diam: 4.49 cmLA Major: 5.63 cmEDV(Teich): | | 118.43 mlIVSd: 1.40 cmLVIDd: 5.00 cmLVPWd: 1.39 cmLVOT Area: 3.67 [id number] Diam: | | 2.16 cm%FS: 43.94 %EF(Teich): 74.94 %ESV(Teich): 29.66 mlLVIDs: 2.80 | | cmSV(Teich): 88.76 mlRA Major: 5.95 cmRV Major: 6.67 cmRVIDd: 3.25 cmLVEF MOD | | A2C: 64.06 %SV MOD A2C: 45.92 mlLVEF MOD A4C: 66.51 %SV MOD A4C: 68.85 mlEF | | Biplane: 62.83 %LVEDV MOD BP: 89.54 mlLVESV MOD BP: 33.27 mlLVEDV MOD A2C: 71.67 | | mlLVLd A2C: 7.29 cmLVEDV MOD A4C: 103.51 mlLVLd A4C: 7.44 cmLVESV MOD A2C: | | 25.75 mlLVLs A2C: 6.19 cmLVESV MOD A4C: 34.65 mlLVLs A4C: 6.46 cmLAESV(A-L): | | 102.24 mlLAESV Index (A-L): 39.32 ml/m2LAAs A2C: 25.74 [id number] A-L A2C: 96.43 | | mlLAESV MOD A2C: 87.85 mlLALs A2C: 5.83 cmLAAs A4C: 27.29 [id number] A-L A4C: | | 97.19 mlLAESV MOD A4C: 92.98 mlLALs A4C: 6.50 cmRAAs: 21.15 [id number] A-L: 63.42 | | mlRAESV MOD: 61.37 mlRALs: 5.98 cmTAPSE: 1.97 cmAV maxP.17 mmHgAV meanPG: | | 4.58 mmHgAV Vmax: 1.42 m/Edwin Vmean: 1.00 m/Edwin VTI: 30.07 cmAVA Vmax: 2.99 | | cm2AVA (VTI): 2.79 [id number] Vmax: 0.00 cm2/m2AVAI (VTI): 0.00 cm2/m2LVOT maxPG: | | 5.41 mmHgLVOT meanP.99 mmHgLVSI Dopp: 32.37 ml/m2LVSV Dopp: 84.17 mlLVOT Vmax: | | 1.16 m/sLVOT Vmean: 0.81 m/sLVOT VTI: 22.87 cmMV A Gregg: 0.02 m/sMV DecT: | | 193.42 msMV E Gregg: 1.45 m/sMV E/A Ratio: 72.22MV PHT: 53.67 msMVA By PHT: 4.09 | | [id number] e': 0.06 m/sSeptal E/e': 21.80Lateral e': 0.08 m/sLateral E/e': | | 18.12RAP: 20 mmHgRV S': 0.13 m/sRVSP: 33.03 mmHgTR maxP.03 mmHgTR Vmax: | | 1.80 m/s Loss Prevention Officer: Elenaticated by: Bassam Dickson Date/Time: 02-19-2017 | | 22:25:33 IMPRESSION: 1. This was a technically difficult study with suboptimal views due | | to patient's body habitus.2. The left ventricle appears normal in size, mild concentric | | hypertrophy and normal systolic function EF 60-65%.3. The right ventricle appears | | mildly enlarged with normal systolic function.4. There is no pericardial effusion. | |Ao Diam: 3.41 cm | |Ao st junct: 2.70 cm | |IVC: 3.13 cm | |LA Diam: 4.49 cm | |LA Major: 5.63 cm | |EDV(Teich): 118.43 ml | |IVSd: 1.40 cm | |LVIDd: 5.00 cm | |LVPWd: 1.39 cm | |LVOT Area: 3.67 cm2 | |LVOT Diam: 2.16 cm | |%FS: 43.94 % | |EF(Teich): 74.94 % | |ESV(Teich): 29.66 ml | |LVIDs: 2.80 cm | |SV(Teich): 88.76 ml | |RA Major: 5.95 cm | |RV Major: 6.67 cm | |RVIDd: 3.25 cm | |LVEF MOD A2C: 64.06 % | |SV MOD A2C: 45.92 ml | |LVEF MOD A4C: 66.51 % | |SV MOD A4C: 68.85 ml | |EF Biplane: 62.83 % | |LVEDV MOD BP: 89.54 ml | |LVESV MOD BP: 33.27 ml | |LVEDV MOD A2C: 71.67 ml | |LVLd A2C: 7.29 cm | |LVEDV MOD A4C: 103.51 ml | |LVLd A4C: 7.44 cm | |LVESV MOD A2C: 25.75 ml | |LVLs A2C: 6.19 cm | |LVESV MOD A4C: 34.65 ml | |LVLs A4C: 6.46 cm | |LAESV(A-L): 102.24 ml | |LAESV Index (A-L): 39.32 ml/m2 | |LAAs A2C: 25.74 cm2 | |LAESV A-L A2C: 96.43 ml | |LAESV MOD A2C: 87.85 ml | |LALs A2C: 5.83 cm | |LAAs A4C: 27.29 cm2 | |LAESV A-L A4C: 97.19 ml | |LAESV MOD A4C: 92.98 ml | |LALs A4C: 6.50 cm | |RAAs: 21.15 cm2 | |RAESV A-L: 63.42 ml | |RAESV MOD: 61.37 ml | |RALs: 5.98 cm | |TAPSE: 1.97 cm | |AV maxP.17 mmHg | |AV meanP.58 mmHg | |AV Vmax: 1.42 m/s | |AV Vmean: 1.00 m/s | |AV VTI: 30.07 cm | |MIKHAIL Vmax: 2.99 cm2 | |MIKHAIL (VTI): 2.79 cm2 | |AVAI Vmax: 0.00 cm2/m2 | |AVAI (VTI): 0.00 cm2/m2 | |LVOT maxP.41 mmHg | |LVOT meanP.99 mmHg | |LVSI Dopp: 32.37 ml/m2 | |LVSV Dopp: 84.17 ml | |LVOT Vmax: 1.16 m/s | |LVOT Vmean: 0.81 m/s | |LVOT VTI: 22.87 cm | |MV A Gregg: 0.02 m/s | |MV DecT: 193.42 ms | |MV E Gregg: 1.45 m/s | |MV E/A Ratio: 72.22 | |MV PHT: 53.67 ms | |MVA By PHT: 4.09 cm2 | |Septal e': 0.06 m/s | |Septal E/e': 21.80 | |Lateral e': 0.08 m/s | |Lateral E/e': 18.12 | |RAP: 20 mmHg | |RV S': 0.13 m/s | |RVSP: 33.03 mmHg | |TR maxP.03 mmHg | |TR Vmax: 1.80 m/s | | | |Loss Prevention Officer: DBS | |Authenticated by: Bassam Hernandez | |Report Date/Time: 02-19-2017 22:25:33 | | | |IMPRESSION: | |1. This was a technically difficult study with suboptimal views due to patient's body habit us. | |2. The left ventricle appears normal in size, mild concentric hypertrophy and normal systol ic function EF 60-65%. | |3. The right ventricle appears mildly enlarged with normal systolic function. | |4. There is no pericardial effusion. | + + documented in this encounter Visit Diagnoses Not on filedocumented in this encounter"
--- OUTSIDE RECORDS SUMMARY | ~2019-06-14 | XMS | Encounter Summary ---
Demographics + + + | Address | [address] | | | [place] [address] | + + + | Home Phone | | + + + | Preferred Language | Unknown | + + + | Marital Status | Single | + + + | Religion Affiliation | NRP | + + + [...] Providers + +------+ + | Care Computer Repair Engineer Name | Role | Phone | [...] | | | | | | | [facility] | | | | | | [facility] and | | | | | | | [facility]aling, | | | | | | | [address] | | | | | | | [place], [place] | | | | | | | [address] | | | | | | | Phone: | | | | | | | [phone] | | | | | | | Fax: | | | | | | | [phone] | +--------+--------+ + + + + Encounter Details +--------+---------+ + + + | Date | Type | Department | Care Team | Description | +--------+---------+ + + + | 02/15/ | Office | Digestive Health | Margot Contreras RD | Morbid obesity (HCC) | | 2015 | Visit | Center at [address] | [address] | (Primary Dx); S/P | | | | [address] | [place], | laparoscopic sleeve | | | | Mailcode: [place] | [place] [address] | gastrectomy; | | | | for Health and | | Diabetes mellitus | | | | Healing, [address] | | type 2, | | | | [place], [place] | | diet-controlled | | | | [address] | | (HCC) | | | | [phone] | | | +--------+---------+ + + + [...] + + + + | Weight | 184.8 kg (407 lb 6.4 | 02/15/2015 12:56 PM | | | | oz) | PDT | | + + + + + | Height | - | - | | + + + + + | Body Mass Index | 69.93 | 01/22/2015 3:06 PM | | | | | PDT | | + + + + + documented in this encounter Progress Notes Margot Contreras, JAYJAY - 02/15/2015 1:01 PM PDT Nutrition Counseling: Post-op Bariatric Surgery Follow-Up Patient referred by: [place] [address] Documented time of visit: 1:00 to 1:21 (21 minutes [id number] with patient) Surgery: Sleeve Gastrectomy Date of Surgery: 02/07/15 Subjective: sore, but feeling ok. Any reported changes: none Tolerating Bariatric Diet: Yes Current Physical Activity: walking Changes in Diabetes Medications since surgery: none prior to surgery (recent dx) Testing blood glucose: none Objective: Ht Readings from Last 1 Encounters: 01/22/15 1.626 m (5' 4") Wt Readings from Last 2 Encounters: 02/15/15 184.795 kg (407 lb 6.4 oz) 01/22/15 188.696 kg (416 lb) No weight in Epic on day of surgery Body mass index is 69.9 kg/(m^2). Weight change since surgery: lost 9lbs since 01/22 PMHx: Past Medical History Diagnosis Date Essential hypertension, benign Shortness of breath Asthma Cough ANNABEL (obstructive sleep apnea) CPAP/BiPAP dependence Murmur Leaking of urine Abnormal ThinPrep Pap test of vagina Anxiety Depression Bipolar disorder (HCC) OCD (obsessive compulsive disorder) Thyroid disease Hx of laparoscopic gastric banding 09/22/2013 Morbid obesity with BMI of 70 and over, adult ([facility]) 09/22/2013 Pulmonary hypertension (HCC) Mild. By echo and chest xray findings. Followed by international affairs vice president in [place]. Poor intravenous access Food logs: Yes Food choices: Premier Protein, New Whey, Yogurt Fluid choices: water Supplementation: Purchased but has not started: multivitamin, calcium with vitamin D and vi tamin B12 Assessment: Doing well. Can include other foods such as cream of wheat and low fat cream so ups since meeting protein goal with shakes. Following Bariatric Diet Protocol: Yes Meeting protein goals: Yes >80g/day. Meeting fluid goals: Yes Fluids from meals: Yes Plan: Reviewed nutrition goals after bariatric surgery. Aim for 64 ounces of fluid and 60-80 grams of protein per day. Continue to follow post-surgery bariatric diet progression: Continue stage 2 full liquid di et for now. On 02/21/15, begin stage 3 according to bariatric diet guidelines: -Provided written & verbal education/review on stage 3 guidelines, including grocery list of stage 3 foods and sample menus. -Begin introducing soft/ground/moist protein foods -Once meeting protein [...] meals by 30 minutes before & after Begin vitamin & mineral supplementation per post-bariatric surgery guidelines -complete multivitamin & mineral (with iron) supplement, 2/day -500 mcg/day sublingual B12 supplement (or monthly injections) -500 mg calcium citrate with vitamin D TID (not within 2 hours of multivitamin or iron sup plement) (if not chewable or liquid, begin 2 weeks post-surgery) Continued to reinforce importance of mindful eating. Continue to increase physical activity. Follow up on 03/08 for 1 month post-op visit. Margot Contreras RD, [facility], LD Pager# [phone] documented in this enco unter Plan of Treatment Not on filedocumented as of this encounter Procedures + +--------+ + + + | Procedure Name | Priori | Date/Time | Associated Diagnosis | Comments | | | ty | | | | + +--------+ + + + | TN MNT RE-ASSESSMNT | Routin | 02/15/2015 | Morbid obesity | | | X15MIN | e | 1:25 PM | ([facility]) S/P | | | | | PDT [...]
--- OUTSIDE RECORDS SUMMARY | ~2019-06-14 | XMS | Encounter Summary ---
Demographics + + + | Address | [address] | | | [place] [address] | + + + | Home Phone [...] Author + + + | Author | [facility] | | | and [place] | + + + | Organization | [facility] | | [...] Team Providers + +------+ + | Care Systems Checkout Mechanic Name | Role | Phone | + +------+ + PCP | Unavailable | + +------+ + Encounter Details +--------+ + + + + | Date | Type | Department | Care Team | Description | +--------+ + + + + | 11/03/ | Hospital | [facility] | Jermaine Fairchild | | | 2011 | Encounter | MED CTR SLEEP | MD [address] | | | | | CENTER [address] | [address] [place] | | | | | [place] | [place] [address] | | | | | [address] | [phone] | | | | | [phone] | | | +--------+ + + + [...] [place] | | | | | | [address] | | | | | | | | +--------+---------+ + + + | 01/18/ | Office | Sleep Medicine | Jermaine Fairchild | | | 2020 | Visit | | MD [address] | | | | | | [address] | | | | | | [place] [address] | | | | | | [phone] | | | | | | | | +--------+---------+ + + + documented as of this encounter Visit Diagnoses Not on filedocumented in this encounter"
--- OUTSIDE RECORDS SUMMARY | ~2019-06-14 | XMS | Encounter Summary ---
Demographics + + + | Address | [address] | | | [place] [address] | + + + | Home Phone [...] | + + +---------+ + | Lana Copeland | ECON | Unknown | | + + +---------+ + Care Team Providers + +------+ + | Care [employer] Name | Role | Phone | + +------+ + | Bassam Ross DO | PCP | | + +------+ + Reason for Visit + + + | Reason | Comments | + + + | Outside Records | | | Received | | + + + Encounter Details +--------+ + + + + | Date | Type | Department | Care Team | Description | +--------+ + + + + | 04/12/ | Abstract | Digestive Health | Yaritza Venegas, | Outside Records | | 2018 | | Center at [facility] [address] | MD [address] | Received | | | | [address] | [place], [place] | | | | | Mailcode: [place] | [address] | | | | | for Health and | [phone] | | | | | [place] [address] | | | | | | [place], [place] | | | | | | [address] | | | | | | [phone] | | | +--------+ + + + [...]
--- OUTSIDE RECORDS SUMMARY | ~2019-06-14 | XMS | Encounter Summary ---
Demographics + + + | Address | [address] | | | [place] [address] | + + + | Home Phone [...] Author + + + | Author | [facility] | + + + | Organization | [facility] | + + + | Address [...] Providers + +------+ + | Care District Home Economics Agent Name | Role | Phone | + [...] | | | | | | | [place] [facility] | | | | | | | Health and | | | | | | | Healing, | | | | | | | [address] | | | | | | | [place], [place] | | | | | | | [address] | | | | | | | Phone: | | | | | | | [phone] | | | | | | | Fax: | | | | | | | [phone] | +--------+--------+ + + + + Encounter Details +--------+---------+ + + + | Date | Type | Department | Care Team | Description | +--------+---------+ + + + | 06/16/ | Office | Digestive Health | Mihaela Villa, | S/P laparoscopic | | 2018 | Visit | Center at [facility] [address] | [address] | sleeve gastrectomy | | | | [address] | [address] | (Primary Dx) | | | | Mailcode: Center | [place], [place] | | | | | for Health and | [address] | | | | | [facility] [address] | | | | | | [place], [place] | | | | | | [address] | | | | | | [phone] | | | +--------+---------+ + + + [...] kg (406 lb | 06/16/2017 2:35 PM | | | | 14.4 oz) | PST | | + + + + + | Height | - | - | | + + + + + | Body Mass Index | 72.08 | 02/25/2016 3:17 PM | | | | | PDT | | + + + + + documented in this encounter Progress Notes Mihaela Villa RD - 06/16/2017 2:30 PM PSTFormatting of this note might be different fro m the original. Nutrition Counseling: Post-op Bariatric Surgery Follow-Up Patient referred by: [place] [address] Documented time of visit: 2:33 to 3:03 (30 minutes [id number] with patient) Surgery: Sleeve Gastrectomy Date of Surgery: 02/07/15 Subjective: Continues to have an infection in leg. Lost her dad last ANTONIO. Went to the [employer] loss conference [place] year. Wanting some options in regards [...] Physical Activity: walking at the gym at [employer] with some friends 2x/wk 60 Changes in [...] echo and chest xray findings. Followed by material analyst in [place]. Shortness of breath Thyroid disease Food logs: [...] multivitamin & mineral (with iron) supplement, 2/day -6983-1606 mg calcium citrate with vitamin D/day (take in divided doses, not within 2 hour s of multivitamin or iron supplement) -500 mcg/day sublingual B12 supplement (or monthly injections) Continued to reinforce importance of mindful eating. Continue to increase physical activity. Follow up Mihaela cooper RD,[place] Pager# [phone] Phone: [phone] documented in this en counter Plan of Treatment Not on filedocumented as of this encounter Procedures + +--------+ + + + | Procedure Name | Priori | Date/Time | Associated Diagnosis | Comments | | | ty | | | | + +--------+ + + + | [place] MNT RE-ASSESSMNT | Routin | 06/17/2017 | S/P laparoscopic | | | X15MIN | e | 8:57 AM | sleeve gastrectomy | | | | | PST | | | + +--------+ + + + documented in this encounter Visit Diagnoses + + | Diagnosis | + + | S/P laparoscopic sleeve gastrectomy - Primary | + + documented in this encounter
--- OUTSIDE RECORDS SUMMARY | ~2019-06-14 | XMS | Encounter Summary ---
Demographics + + + | Address | [address] | | | [place] [address] | + + + | Home Phone | | + + + | Preferred Language | Unknown | + + + | Marital Status | Single | + + + | Sikhism Affiliation | Unknown | + + + | Race | Unknown | + + + | Ethnic Group | Unknown | + + + Author + + + | Author | [facility] | | | and [place] | + + + | Organization | [facility] | | | [...] Team Providers + +------+ + | Care Hand Tier Name | Role | Phone | + +------+ + | Bassam Ross DO | PCP | | + +------+ + Encounter Details +--------+ + + + + | Date | Type | Department | Care Team | Description | +--------+ + + + + | 01/02/ | Orders Only | [facility] | Adolfo Zazueta, | Dyspnea (Primary | | 2014 | | PULMONARY [address] | MD [address] | Dx); COPD (chronic | | | | [place], | [place], [place] | obstructive | | | | [place] [address] | [address] | pulmonary disease) | | | | [phone] | | (HCC) | +--------+ + + + + Social [...] | | | | | [place] [address] | | | | | | [phone] | | | | | | | | +--------+---------+ + + + + +---------+--------+ + + | Name | Type | Priori | Associated Diagnoses | Order Schedule | | | | ty | | | + +---------+--------+ + + | XR Chest PA and | Imaging | Routin | Dyspnea COPD | Expected: | | Lateral | | e | (chronic obstructive | 01/02/2014, Expires: | | | | | pulmonary disease) | 01/02/2015 | | | | | (HCC) | | + +---------+--------+ + + documented as of this encounter Visit Diagnoses + + | Diagnosis | + + | Dyspnea - Primary Other dyspnea and respiratory abnormality | + + | COPD (chronic obstructive pulmonary disease) (HCC) Chronic airway obstruction, not | | elsewhere classified | + + documented in this encounter"
--- OUTSIDE RECORDS SUMMARY | ~2019-06-14 | XMS | Encounter Summary ---
Demographics + + + | Address | [address] | | | [place] [address] | + + + | Home Phone [...] Team Providers + +------+ + | Care Sql Programmer Name | Role | Phone | + [...] | | | | | | | [facility] | [facility] | [facility] | | | | | | | [facility], | | | | | | | [address] | | | | | | | [place], [place] | | | | | | | [address] | | | | | | | Phone: | | | | | | | [phone] | | | | | | | Fax: | | | | | | | [phone] | +--------+--------+ + + + + Encounter Details +--------+---------+ + + + | Date | Type | Department | Care Team | Description | +--------+---------+ + + + | 02/24/ | Office | [facility] | Thania Cardenas, | S/P laparoscopic | | 2016 | Visit | [facility] [address] | ACNP [address] | sleeve gastrectomy | | | | [address] | [address] [place], [place] | (Primary Dx); | | | | Mailcode: Center | [phone] | Vitamin D deficiency | | | | for Health and | [phone] | disease; Morbid | | | | Healing, [address] | | obesity with BMI of | | | | [place], [place] | | 60.0-69.9, adult | | | | [address] | | ([facility]) | | | | [phone] | | | +--------+---------+ + + + [...] + + + | Blood Pressure | 141/83 | 02/25/2016 3:17 PM | | | | | PDT | | + + + + + | Pulse | 119 | 02/25/2016 3:17 PM | | | | | PDT | | + + + + + | Temperature | 36.8 C (98.2 F) | 02/25/2016 3:17 PM | | | | | PDT | | + + + + + | Respiratory Rate | 20 | 02/25/2016 3:17 PM | | | | | PDT | | + + + + + | Oxygen Saturation | - | - | | + + + + + | Inhaled Oxygen | - | - | | | Concentration | | | | + + + + + | Weight | 174.4 kg (384 lb 6.4 | 02/25/2016 3:17 PM | | | | oz) | PDT | | + + + + + | Height | 160 cm (5' 3") | 02/25/2016 3:17 PM | | | | | PDT | | + + + + + | Body Mass Index | 68.09 | 02/25/2016 3:17 PM | | | | | PDT | | + + + + + documented in this encounter Patient Instructions Patient Instructions Thania Lamas ACNP - 02/25/2016 3:36 PM PDTPlease come see us every year. B positive blood type documented in this encounter Progress Notes Thania Lamas ACNP - 02/25/2016 2:54 PM PDTFormatting of this note might be different fro m the original. BARIATRIC FOLLOW-UP Aspen Darden is a 45 y.o. patient who underwent a sleeve gastrectomy 02/07/2015 She was last seen in clinic 10/2015. She saw the backup administrator prior to my appointment. She has been visiting friends in [place]. She states she was eating ribs in November and got one stuck that had to be removed under anest hesia. She had 3 prior lap bands prior to the sleeve being placed. She has multiple medical Co morbidities including pulmonary HTN for which she is followed by a electrician third. She has recently had a episode of cellulitis Her fundus was left larger than normal because of the adhesions encountered intra op. Just approved for water therapy, three times a Week. Feeling much better. She would like weight removed from her legs . Last office visit reviewed. Op-report reviewed. Labs reviewed. Weight 403--> 384 (total 19 lb weight loss) Blood pressure 141/83, pulse 119, temperature 36.8 C (98.2 F), temperature source Oral, resp. rate 20, height 1.6 m (5' 3"), weight 174.363 kg (384 lb 6.4 oz). ALLERGIES: Allergies Allergen Reactions Advair Diskus [Fluticasone-Salmeterol] [...] echo and chest xray findings. Followed by electrician third in [place]. Poor intravenous access Liver enlargement 01/2015 intraop Past Surgical History Procedure Laterality Date C section 1998 Tonsillectomy 1996 Knee surgery 1996 Gastric banding 2004, 2006, 2010 Skin and subcutaneous tissue surgery 2006 Foot surgery 2009 - 2010 3x Hysterectomies, vaginal 2009 Appendectomy for ruptured appendix with abscess 2012 Gallbladder surgery 2008 Laparotomy 07/2014 Laparoscopic sleeve gastrectomy 02/07/2015 [facility] [place] Social History Social History Marital Status: Single Spouse [...] sinus rhythm. Normal ECG Records reviewed from [facility] (see media tab): Echocardiogram 11/18/2013: 1. Sinus [...] There is no pericardial effusion.21. No mass [id number]. Po or visualization. Definity was used to opacify the left ventricular chamber and improve deli neation of the endocardial border. Family History Problem Relation Diabetes Father Hypertension Mother Obesity Mother Hypertension Father Heart Disease Father [place] 78 Bariatric Medications: MVI with iron twice daily: yes Calcium citrate 1500mg daily: yes Vitamin D 1000 mg daily : no Taking high dose three times B12 500mcg SL daily or monthly shot: yes Symptoms: Nausea: None Dysphagia: None Vomiting: None Heartburn: <1 time per week Abd Pain: None Constipation: None Diarrhea: None Exam General- Alert and oriented x4, WD, WN, NAD, Obese, well appearing Well hydrated: moist mucous membranes Card/Circ: no LE edema Abd - Soft, NT, NR, NG Abd Wounds healed Assessment/Plan: Walking un assisted today she states she was using a walker when first se en and this has improved. On review Of my notes, I do not see mention of a walker. 1. S/P sleeve gastrectomy, a larger fundus was left related to scaring from her lap bands. Today she is requesting: surgery to remove weight from her legs: I did not recommend this s trategy, as her weight loss has been minimal Panniculectomy: she had these procedure prior to her sleeve Phentermine: she is requesting I prescribe this medication to her. With her multiple co mor bidities I am not willing to prescribe to her, as she is Also 4 hours away. Surgery: she asked if Dr. Reed would go back in and make her stomach smaller. With the am ount of scar tissues encountered, I expressed I didn't think he would. I offered her a appointment to discuss with him, she has declined. Vit D: states she is taking high dose three times a week. 2. Labs today: none Encouraged pt to F/u at every year post op. No change in her medication / ANNABEL treatment 5. ANNABEL: 6. GERD: 7. Hyperlipidemia: 8. HTN: 9. Diabetes: See PCM for adjusting any other medications. Call if any abd pain, n/v/d or other issues. Pt agrees to POC and will call or send [email or web address] message if any issues. Start time 1530 , end time 1550. I spent a total of 20 minutes face to face with this uday ent. Over 50% of visit was in counseling. Thania Lamas DNP, DORAP, CHILD AND FAMILY THERAPIST Nurse Practitioner for Bariatric Surgery [facility] | [address] | [place], [place] | [address] | Display Progress Note in Agolo: No documented in this en counter Plan of Treatment Not on filedocumented as of this encounter Visit Diagnoses + + | Diagnosis | + + | S/P laparoscopic sleeve gastrectomy - Primary | + + | Vitamin D deficiency disease Unspecified vitamin D deficiency | + + | Morbid obesity with BMI of 60.0-69.9, adult (HCC) | + + documented in this encounter
--- OUTSIDE RECORDS SUMMARY | ~2019-06-14 | XMS | Encounter Summary ---
Demographics + + + | Address | [address] | | | [place] [address] | + + + | Home Phone [...] Author + + + | Author | [facility] | + + + | Organization | [facility] | + + + | Address [...] Team Providers + +------+ + | Care Internet Sales Director Name | Role | Phone | + +------+ + | Iqra Peralta MD | PCP | | + +------+ + Encounter Details +--------+ + + + + | Date | Type | Department | Care Team | Description | +--------+ + + + + | 09/03/ | MyChart | [facility] | Ramona Sunshine | RE:Recommendations | | 2019 | Encounter | [facility] | W, PhD [address] | | | | | [facility] | [address] [place], [place] | | | | | [address] | [address] | | | | | Mailcode: [facility] | [phone] | | | | | [facility] | | | | | | and Healing, | | | | | | | | | | | | Floor [place], [place] | | | | | | [address] | | | | | | [phone] | | | +--------+ + + + [...]
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
--- OUTSIDE RECORDS SUMMARY | ~2019-06-14 | XMS | Encounter Summary ---
Demographics + + + | Address | [address] | | | [place] [address] | + + + | Home Phone [...] Author + + + | Author | [facility] | + + + | Organization | [facility] | + + + | [...] | + + +---------+ + | Lana Hammon | ECON | Unknown | | + + +---------+ + Care Team Providers + +------+ + | Care Clinical Study Manager Name | Role | Phone | + +------+ + | Bassam Ross DO | PCP | | + +------+ + Reason for Referral Diagnostic Testing (Routine) +--------+--------+ + + + + | Status | Reason | Specialty | Diagnoses / | Referred By | Referred To | | | | | Procedures | Contact | Contact | +--------+--------+ + + + + | Closed | | Cardiology | Diagnoses | Shalini, | Car Echo | | | | | GROSSMAN | Sheila Figueroa, | [facility] [address] | | | | | (dyspnea on | PA-C [address] | | | | | exertion) | [address] | Mailcode: | | | | | Preop | [place], | [id number] | | | | | cardiovascul | [place] | [facility] | | | | | ar exam | [address] | Building | | | | | Procedures | Phone: | [place], [place] | | | | | STRESS | [phone] | [address] | | | | | DOBUTAMINE | Fax: | Phone: | | | | | ECHOCARDIOGR | [phone] | [phone] | | | | | AM, ADULT | | | +--------+--------+ + + + + Reason for Visit Consultation (Routine) +--------+--------+ [...] | | obesity | [address] | [address] | | | | | ([facility]) | [address] | [address] | | | | | Procedures | [place], [place] | [place], [place] | | | | | CONSULT TO | [address] | [address] | | | | | CARDIOLOGY | Phone: | Phone: | | | | | | [phone] | [phone] | | | | | | Fax: | Fax: | | | | | | [phone] | [phone] | +--------+--------+ + + + + Encounter Details +--------+---------+ + + + | Date | Type | Department | Care Team | Description | +--------+---------+ + + + | 07/27/ | Office | Cardiology | Sheila Loya | Preop cardiovascular | | 2015 | Visit | Preventive at [facility] | J[address] Fig[address] | exam (Primary Dx); | | | | [address] | [address] [place], | GROSSMAN (dyspnea on | | | | Mailcode: [facility] | [place] [address] | [facility]) | | | | [facility] | [phone] | | | | | and Healing, | | | | | | Building [address] | | | | | | [place], [place] | | | | | | [address] | | | | | | [phone] | | | +--------+---------+ + + + [...] + + + | Blood Pressure | 136/80 | 07/27/2014 2:47 PM | | | | | PST | | + + + + + | Pulse | 113 | 07/27/2014 2:47 PM | | | | | PST | | + + + + + | Temperature | - | - | | + + + + + | Respiratory Rate | - | - | | + + + + + | Oxygen Saturation | 98% | 07/27/2014 2:47 PM | | | | | PST | | + + + + + | Inhaled Oxygen | - | - | | | Concentration | | | | + + + + + | Weight | 190.1 kg (419 lb) | 07/27/2014 2:47 PM | | | | | PST | | + + + + + | Height | 154.9 cm (5' 1") | 07/27/2014 2:47 PM | | | | | PST | | + + + + + | Body Mass Index | 79.17 | 07/27/2014 2:47 PM | | | | | PST | | + + + + + documented in this encounter Patient Instructions Patient Instructions Sheila Loya PA-C - 07/27/2014 3:06 PM PSTSchedule Dobutamine Echocardiogram (Do NOT take your Carvedilol for 2 days prior to the test, then restart afte r the test is completed) 3:0 6 PM PST documented in this encounter Progress Notes Sheila Loya PA-C - 08/08/2014 10:42 AM PDTReviewed results of recent CV Tests: Dobutamine Echocardiogram 08/07/2014 - Final Impressions: 1. At rest there is normal left ventricular systolic function. 2. EKG negative for ischemia. 3. Echo negative for ischemia. Low risk stress echo in a patient who achieved >85% MAPHR and no inducible ischemia MEDICAL DECISION MAKIN ACC/AHA Perioperative Cardiac Risk Stratification (assumes non-emergent, non-cardiac p rocedure) Are active cardiac conditions present? No Calculate the combined surgical and patient-specific risk: RCRI risk calculator (one point for each "yes" answer) A. Elevated risk surgery?: yes B. Ischemic heart disease: no C. Compensated / prior heart failure: no D. Diabetes mellitus (treated with insulin): no E. Renal insufficiency (Cr>2): no F. Cerebrovascular disease: no Risk of MACE 0 risk factors - 0.4% 1 risk factor - 0.9% 2 risk factors - 6.6% 3 risk factors - 11% The risk of major adverse cardiac event (MACE) is: less than 1%. No further risk stratific ation for coronary disease is indicated. Surgery Specific Risk Final Preoperative Recommendations: No evidence of inducible ischemia with normal LVSF. No further risk stratification indicate d prior to surgery. Per Revised Cardiac Risk Index, predicted risk of perioperative cardiac morbidity/mortality is approximately <1%. Evidence of mild pulmonary hypertension both by echo and chest xray. She is followed by pul fee clerk in [place] and would recommend pulmonary getting input and recommendations prior to ortiz rgery Anna Braun DO - 07/28/2014 11:21 AM PSTI reviewed the history, physical examination, assessment, a nd plan in the note written by JW Guido and agree with the documented findings and p luz elena of care. Selena Santoyo M A - 07/27/2014 2:54 PM PSTWaist circumference 69.75 inches Sheila Huynh PA-C - 07/27/2014 2:41 PM PSTForm atting of this note might be different from the original. CARDIOLOGY ENCOUNTER NOTE Reason for Visit: This is a scheduled visit for cardiac evaluation and risk assessment History: Per chart review: Aspen Darden is a 43 y.o. female with history of HTN, HLD, As thma/COPD, ANNABEL on CPAP, Morbid Obesity who is referred by Thania JACKSON for cardiac eval uation and risk assessment for bariatric surgery. Per referral notes "this patient was previ ously seen at my request for evaluation of risk prior to bariatric surgery. She has now lost sufficient weigh that Hopefully further testing can be done to assess her risk for bariatri c surgery" Aspen was originally seen by me for preoperative evaluation on 01/03/2014. At that visit, she was above the weight limit for stress testing. She was given an exercise prescription and t old that if she lost enough weight, to return and we may be able to further risk stratify wi th stress testing. She wears oxygen "only when I need it" - also at night with CPAP machine. Reports she has been on home O2 since about October 2013. She reports she sees a doctor in [place] (pulmono logist). Today, patient denies history of coronary artery disease; denies history of myocardial infa rction. Patient denies history of congestive heart failure. denies history of DVT/PE Patient denies palpitations, tachycardia, exertional chest pain or pressure, paroxysmal noc turnal dyspnea, orthopnea, dizziness, syncope. Reports pedal edema for which she takes Furos emide prn. Lymphedema/cellulitis in left leg. History of Endocarditis or need for Endocarditis Prophylaxis? no History of Phen-Fen exposure? no Exercise History: Walks with father during his physical therapy, with walker mostly. Able to walk 1/2 block t hen GROSSMAN. Limited secondary to "bad knees" - walks with walker MET ASSESSMENT: < 4 METS [...] echo and chest xray findings. 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 Current Outpatient Prescriptions Medication Sig ALPRAZolam 0.5 mg oral tablet Take by mouth. CARVEDILOL ORAL Take 50 mg by mouth two times daily. cholecalciferol 50,000 unit oral capsule Take by mouth three times weekly (on Thu, Thu , and Thu). cloNIDine (CATAPRES) 0.1 mg oral tablet Take 0.1 mg by mouth once daily at bedtime. furosemide 40 mg oral tablet as needed. Pramipexole (MIRAPEX) 0.75 mg oral tablet Take 0.75 mg by mouth two times daily. thyroid (ARMOUR THYROID) 60 mg oral tablet tablet Take 60 mg by mouth once daily. No current facility-administered medications for this visit. Family History Problem Relation Diabetes Father Hypertension Mother Obesity Mother Hypertension Father Heart Disease Father [place] 78 History Substance Use Topics Smoking status: [...] pharyngitis and vertigo . Respiratory: Denies cough, wheezing. Reports "Stress Asthma" Musculoskeletal: Reports knee pain from osteoarthritis. Denies gout, history of fibromyalg ia or muscular weakness. Cardiovascular: See HPI. Gastrointestinal: Denies GERD symptoms, abdominal pain, nausea and vomiting. Neurologic: Denies migraine headache, restless legs, tremor, history of TIA and history of CVA. Skin: Denies rash and skin infection. Psychological: Reports occasional anxiety (xanax as needed),. Denies depression, insomnia Heme/Lymphatic: Denies bleeding disorder, clotting disorder, abnormal bruising and abnorma l bleeding. Endocrine: Denies involuntary weight loss, involuntary weight gain, heat intolerance, col d intolerance or history of diabetes mellitus All other systems negative. Physical Exam: Vitals reviewed and noted as: BP 136/80 | Pulse 113 | Ht 1.549 m (5' 1") | Wt 190.057 kg (419 lb) | SpO2 98% | BMI 79.21 kg/(m^2) Body mass index is 79.21 kg/(m^2). Vital signs reviewed. General: comfortable, alert, cooperative and morbidly obese HEENT: normal conjunctivae and anicteric sclerae, PERRLA, EOMI, oropharynx clear without l esion or exudates; unable to visualize fundi fully, positive red reflex bilaterally Neck: supple without restricted range of motion, trachea midline, no carotid bruits and un able to apprecate JVD Heart and Lung: chest is clear without rales or wheezing and respiratory effort is unlabor ed, S1, S2 normal, no S3 or S4, no murmur, click, or rub , regular rate and rhythm and unab le to palpate PMI and 2 + pedal edema present bilaterally up to below knee; unable to apprec iate femoral bruits; unable to appreciate abdominal aortic bruits; aortic pulsations: unable to appreciate due to body habitus Abdomen/rectal: abdomen is soft, no tenderness, rebound tenderness or guarding and bowel s ounds normal; unable to appreciate masses, organomegaly or bruits due to body habitus Extremities: extremities normal without deformity, no clubbing or cyanosis and utilizing walker Neuro: normal gait and station, reflexes normal and symmetric, cranial nerves 2-12 intact and motor 5/5 strength globally with normal tone Psych: bright affect, not apparently anxious or depressed, judgment and insight appropriat e in context of visit, apparently normal recent and remote memory and oriented to time, pl el and person Laboratory/Diagnostics: Per chart review, reviewed today and summarized below: Lab Results Component Value Date HB 15.7 11/03/2013 HCT 48.1 11/03/2013 PLT 317 11/03/2013 BUN 15 11/03/2013 CR 0.59 11/03/2013 GLU 103 11/03/2013 A1C 5.2 11/03/2013 CHOL 217 11/03/2013 LDL 121 11/03/2013 HDL 66 11/03/2013 TRI 152 11/03/2013 TSH 4.38 11/03/2013 Chest xray 2 view 01/03/2014 - IMPRESSION: Findings characteristic for pulmonary hypertension . Lungs are clear. [facility] reviewed from [facility] (see media tab): Echocardiogram 11/18/2013: 1. Sinus [...] There is no pericardial effusion.21. No mass [id number]. Poo r visualization. Definity was used to opacify the left ventricular chamber and improve delin eation of the endocardial border. Cardiac Risk Stratification (based on 2014 ACC/AHA Guideline on Perioperative Cardiovascula r Evaluation and Management of Patients Undergoing Noncardiac Surgery): 1. Need for emergency noncardiac surgery? b. No -> Proceed to next step 2. ACS? - no. If yes, then manage according to the UA/NSTEMI and STEMI clinical practice g uidelines. If no, proceed to next step 3. Perioperative Clinical Risk for major adverse cardiac event Revised Cardiac Risk Index for Pre-Operative Risk Known ischemic heart disease: unknown, with GROSSMAN and CV risks Congestive Heart Failure: 0 Cerebrovascular disease: 0 Renal insufficiency (creatinine level > 2): 0 DM (requiring insulin): 0 Surgery Specific Risk (intraperitoneal; intrathoracic; suprainguinal vascular): 1 Rate of cardiac , non fatal PR, non fatal cardiac arrest 0 risk factors - 0.4% (very low) 1 risk factors - 0.9% (low) 2 risk factors - 6.6%, (moderate) 3 or >risk factors - 11% (high) 4. Low risk surgery? b. No -> proceed with next step Surgery Specific Risk 5. Good functional capacity? (>4 METS)b. No -> proceed with next step DASI Online Calculator 6. If poor (< 4 METs) or unknown functional capacity, will further testing will impact pat ient decision making or perioperative care - yes Assessment/Plan:: Preoperative Evaluation: Aspen Darden is a 43 y.o. female with history of HTN, HLD, Asthma/COPD, ANNABEL on CPAP, Morbid Obesity who is referred by Thania JACKSON for cardiac evaluation and risk as sessment for bariatric surgery. she is undergoing intermediate risk surgery, with an exercis e tolerance of < 4 METs with symptoms of GROSSMAN which may be suggestive of ischemia. LVSF is no rmal. Per AHA Science Advisory on Cardiovascular Evaluation and Management of Severely Obese Patients Undergoing Surgery (Circulation. 2009;120:86-95): Obesity cardiomyopathy, diabetic cardiomyopathy, or chronic long-standing significant myocardial ischemia (hibernating myoca rdium) may lead to heart failure in severely obese patients and should be identified before surgery. Per ACC/AHA guidelines, further risk stratification is indicated prior to surgery Schedule Dobutamine Echocardiogram (Do NOT take your Carvedilol for 2 days prior to the william t, then restart after the test is completed) Evidence of mild pulmonary hypertension both by echo and chest xray. She is followed by pul fee clerk in [place] and would recommend pulmonary getting input and recommendations prior to ortiz rgery I will addend note when test results back to give final preoperative recommendations - Recommend patient continue all blood pressure medications perioperatively, as preventing significant increases in double product or cardiac workload is rutledge in preventing perioperat phuong cardiac complications. Would recommend stopping Estrogen prior to surgery, to reduce ris k of thromboembolism, can restart when ambulatory, at surgeon's discretion I discussed the implications of the preoperative evaluation with the patient including risk stratification. Patient verbalized understanding of plan of care and instructions as outlin ed. A report of this preoperative evaluation will be sent to PCP Bassam Ross DO and referring provider/surgeon Thania Lamas [facility] CARDIOLOGY - PREVENTIVE [address] [place] Mailcode: [id number] [facility] [id number] documented in t his encounter Plan of [...] + + documented in this encounter Results STRESS DOBUTAMINE ECHOCARDIOGRAM, ADULT (08/07/2014 12:00 AM PDT) + + + | Narrative | Performed At | + + + | | | | | | + + + + + | Procedure Note | + + | Daniel Tejada - 08/07/2014 3:43 PM PDT | + + documented in this encounter Visit Diagnoses + + | Diagnosis | + + | Preop cardiovascular exam - Primary Pre-operative cardiovascular examination | + + | GROSSMAN (dyspnea on exertion) Other dyspnea and respiratory abnormality | + + documented in this encounter
--- OUTSIDE RECORDS SUMMARY | ~2019-06-14 | XMS | Encounter Summary ---
Demographics + + + | Address | [address] | | | [place] [address] | + + + | Home Phone | | + + + | Preferred Language | Unknown | + + + | Marital Status | Single | + + + | Sabianist Affiliation | Unknown | + + + [...] Team Providers + +------+ + | Care Document Preparation Specialist Name | Role | Phone | + +------+ + PCP | Unavailable | + +------+ + Encounter Details +--------+ + + + + | Date | Type | Department | Care Team | Description | +--------+ + + + + | 09/19/ | [facility] | [facility] | Jermaine Fairchild | | | 2007 | Encounter | MED CTR SLEEP | MD Lars [address] | | | | | CENTER [address] [place] | | | | | [place] | [place] [address] | | | | | [address] | [phone] | | | | | [phone] | | | +--------+ + + + [...] [place] | | | | | | [address] | | | | | | | | +--------+---------+ + + + | 01/18/ | Office | Sleep Medicine | Jermaine Fairchild | | | 2019 | Visit | | MD Lars [address] | | | | | | [place] | | | | | | [place] [address] | | | | | | [phone] | | | | | | | | +--------+---------+ + + + documented as of this encounter Visit Diagnoses Not on filedocumented in this encounter"
--- OUTSIDE RECORDS SUMMARY | ~2019-06-14 | XMS | Encounter Summary ---
Demographics + + + | Address | [address] | | | [place] [address] | + + + | Home Phone [...] | + + +---------+ + | [place] | ECON | Unknown | | + [...] | Pain | Diagnoses | Rubi, | Dijustynao | | | | Management | Morbid | Yaritza Soria MD | Kate, | | | | | obesity | [address] | Kofi Moya, PhD | | | | | ([facility]) | [address] | [address] | | | | | Procedures | [place], [place] | [address] | | | | | CONSULT TO | [address] | [place], [place] | | | | | PAIN | Phone: | [phone] | | | | | MANAGEMENT | [phone] | Phone: | | | | | | Fax: | [phone] | | | | | | [phone] | Fax: | | | | | | | [phone] | +--------+---------+ + + + + Encounter Details +--------+---------+ + + + | Date | Type | Department | Care Team | Description | +--------+---------+ + + + | 08/30/ | Office | Pain Center at [facility] | Ramona Landry | Morbid obesity with | | 2018 | Visit | Floor [address] | W, PhD [address] | BMI of 60.0-69.9, | | | | [address] Mailcode: | Arleen [place], [place] | adult (HCC) (Primary | | | | [facility] Center for | [address] | Dx); S/P | | | | Health and Healing, | [phone] | laparoscopic sleeve | | | | | | gastrectomy; | | | | Floor [place], [place] | | Depression, | | | | [address] | | controlled; History | | | | [phone] | | of posttraumatic | | | [...] documented as of this encounter Progress Notes Ramona Landry, PhD - 08/30/2018 3:00 PM PDT PROGRESS NOTE: PSYCHOLOGICAL EVALUATION FOR BARIATRIC SURGERY IDENTIFYING INFORMATION: Aspen Darden is a 47 y.o. female Date of : 1970 Consulting Psychologist: RAMONA LANDRY, PHD Referring Provider: Yaritza Venegas Chief Complaint: morbid obesity Date of service: 08/30/2018 BMI: . 67.4 kg/m (08/30/2018) (380.7 lbs), Ht: 5'3 Weighed today at [facility] clinic 70.06 kg/m 07/09/18 (395 lb 8 oz) Weighed at [facility] visit Proposed Surgery: possible revision from Sleeve to Bypass History of two prior surgeries, gastric banding- revised x1, removed 2011; and, sleeve marcus rectomy-02/07/2015 (See Dr. Venegas's note for more details 02/26/2018) Identifying Information: Aspen Darden is a 47 y.o. female who lives alone in [place]. She was referred for psychological evaluation prior [...] a typical day involves going to the [employer], and she reports getting out of the house (even in snow) to go and this has improved her mood and well-being. 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 She [...] and adequate social supp ort. The [employer] [place] appears to be very instrumental to her [...] after daniella fall. Education and Profession: receives [employer]. 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 She stopped working in this setting when her daughter was born very premature and she did not feel she could leave her. 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 3. She should continue to follow the core carrier's recommendations. 4. She is urged to establish a clear routine for physical activity that she can begin now and continue after surgery. 5. She is urged to participate in a Bariatric Surgery Support Group. 6. She needs to increase her water intake. 7. She needs to follow-up with me via [employer] in 4 weeks to update progress on the above re commendations. Total time I spent with the patient was approximately 60 minutes [id number] with the uday ent, and approximately 15 minutes of administering testing and 1 hour and 40 minutes of non- [id number] interpreting and synthesizing results. Ramona Landry, PhD PAIN CENTER AT [facility] [address] Mail Code: [id number] [place] [address] documented in thi s encounter Plan of Treatment Not on filedocumented as of this encounter Procedures + +--------+ + + + | Procedure Name | Priori | Date/Time | Associated Diagnosis | Comments | | | ty | | | | + +--------+ + + + | HI | Routin | 09/03/2018 | Morbid obesity [...] + +--------+ + + + | HI PSYCHOLOGICAL | Routin | 09/03/2018 | Morbid [...] + +--------+ + + + | HI PSYCHOLOGICAL | Routin | 09/03/2018 | Morbid [...] posttraumatic stress disorder (PTSD) | + + documented in this encounter
--- OUTSIDE RECORDS SUMMARY | ~2019-06-14 | XMS | Encounter Summary ---
Demographics + + + | Address | [address] | | | [place] [address] | + + + | Home Phone [...] + + | Author | [facility] | + + + | Organization | [facility] | + + + | [...] | + + +---------+ + | [place] | ECON | Unknown | | + + +---------+ + Care Team Providers + +------+ + | Care Assembler Carbon Brushes Name | Role | Phone | + +------+ + | Bassam Ross DO | PCP | | + +------+ + Encounter Details +--------+ + + + + | Date | Type | Department | Care Team | Description | +--------+ + + + + | 01/09/ | [facility] | [facility] | Dori Reed, | | | 2014 | | [place] [facility] [address] | | | | | | [address] | | | | | | Mailcode: [place] | | | | | | for Health and | | | | | | [facility] [place] [address] | | | | | | [place], [place] | | | | | | [address] | | | | | | [phone] | | | +--------+ + + + [...]
--- OUTSIDE RECORDS SUMMARY | ~2019-06-14 | XMS | Encounter Summary ---
Demographics + + + | Address | [address] | | | [place] [address] | + + + | Home Phone | | + + + | Preferred Language | Unknown | + + + | Marital Status | Single | + + + | Hinduism Affiliation | NRP | + + + [...] | + + +---------+ + | [place] | ECON | Unknown | | + + +---------+ + Care Team Providers + +------+ + | Care Risk Control Manager Name | Role | Phone | + +------+ + | Bassam Ross DO | PCP | | + +------+ + Reason for Visit Benefits Check (Routine) +--------+--------+ + + + [...] | | | | | | | [place], [place] | | | | | | | [address] | | | | | | | Phone: | | | | | | | [phone] | | | | | | | Fax: | | | | | | | [phone] | +--------+--------+ + + + + Encounter Details +--------+---------+ + + + | Date | Type | Department | Care Team | Description | +--------+---------+ + + + | 08/07/ | Office | [facility] | Margot Contreras RD | S/P laparoscopic | | 2016 | Visit | [facility] [address] | [address] | sleeve gastrectomy | | | | [address] | [place], | (Primary Dx); Morbid | | | | Mailcode: [place] | [place] [address] | obesity, | | | | for Health and | | unspecified obesity | | | | Healing, [address] | | type ([facility]); Diabetes | | | | [place], [place] | | mellitus type 2, | | | | [address] | | diet-controlled | | | | [phone] | | (HCC) | +--------+---------+ + + [...] + + + + | Weight | 162.5 kg (358 lb 4.8 | 08/08/2015 1:32 PM | | | | oz) | PST | | + + + + + | Height | - | - | | + + + + + | Body Mass Index | 61.5 | 06/26/2015 10:30 AM | | | | | PST | | + + + + + documented in this encounter Progress Notes Margot Contreras, RD - 08/08/2015 1:35 PM PST Nutrition Counseling: Post-op Bariatric Surgery Follow-Up Patient referred by: [place] [address] Documented time of visit: 1:31 to 1:53 (22 minutes qinm-jb-zdqa with patient) Surgery: Sleeve Gastrectomy Date of Surgery: 02/07/15 Subjective: Any reported changes: none Tolerating Bariatric Diet: Yes Current Physical Activity: walking Changes in Diabetes Medications since surgery: no meds Testing blood glucose: no Lab Results Component Value Date A1C 6.1* 06/26/2015 Objective: Ht Readings from Last 1 Encounters: 06/26/15 1.626 m (5' 4") Wt Readings from Last 2 Encounters: 08/08/15 162.524 kg (358 lb 4.8 oz) 06/26/15 163.885 kg (361 lb 4.8 oz) 03/08/15 174.091 kg (383 lb 12.8 oz) 01/22/15 188.696 kg (416 lb) No weight in Epic on day of surgery pt reports weight ~414lbs Body mass index is 61.47 kg/(m^2). Weight change since surgery: lost 56lbs PMHx: Past Medical History Diagnosis Date Essential [...] echo and chest xray findings. Followed by [facility] in [place]. Poor intravenous access Liver enlargement 01/2015 intraop Food logs: No Food choices: Egg + turkey collazo + cheese or yogurt + string cheese Tuna/chicken salad + salad + bread and fruit Hamburger mely + salad + green beans May also include Isopure Fluid choices: water, tea (peppermint, brisk, Snapple) and Vitamin water. Drinking 20oz pj ck hazelnut flavored coffee with Splenda Supplementation: no changes since last visit. Still taking Vit D Rx Assessment: Appears to be doing well based on diet recall. Asking if she should go on a liq uid diet to help with plateau. Encouraged increased exercise instead & to resume keeping javier d journal. Following Bariatric Diet Protocol: Yes per diet recall Meeting protein goals: Yes Meeting fluid goals: Yes Fluids from meals: Yes Plan: Reviewed nutrition goals after bariatric surgery. Aim for 64 ounces of fluid and 60-80 grams of protein per day. Encouraged her to decrease c affeine intake. Continue to follow post-surgery bariatric diet progression: Begin stage 4 according to david atric diet guidelines -Provided written & verbal education/review of stage 4 guidelines -Can begin gradually adding lean red meats, raw/crunchy foods, bread, rice, & pasta -Continue to eat protein foods first; stop [...] mindful eating. Continue to increase physical activity. Discussed increasing intensity of exercise and timoteo ng strength training to help push through plateau. Asked her to bring a food journal to the next visit. Follow up in [address], [facility], LD [facility] Bariatrics [phone] documented in this enco unter Plan of Treatment Not on filedocumented as of this encounter Procedures + +--------+ + + + | Procedure Name | Priori | Date/Time | Associated Diagnosis | Comments | | | ty | | | | + +--------+ + + + | AR MNT RE-ASSESSMNT | Routin | 08/08/2015 | S/P laparoscopic | | | X15MIN | e | 4:34 PM | sleeve gastrectomy | | | | | PST | Morbid obesity, | | | | [...]
--- OUTSIDE RECORDS SUMMARY | ~2019-06-14 | XMS | Encounter Summary ---
Demographics + + + | Address | [address] | | | [place] [address] | + + + | Home Phone | | + + + | Preferred Language | Unknown | + + + | Marital Status | Single | + + + | Taoist Affiliation | NRP | + + + [...] Team Providers + +------+ + | Care Horse Race Starter Name | Role | Phone | + +------+ + | Iqra Peralta MD | PCP | | + +------+ + Encounter Details +--------+--------+ + + + | Date | Type | Department | Care Team | Description | +--------+--------+ + + + | 09/14/ | Intake | Transfer Center | | N/A | | 2019 | | [address] | | | | | | [place], | | | | | | [place] [address] | | | +--------+--------+ + + + [...]
--- OUTSIDE RECORDS SUMMARY | ~2019-06-14 | XMS | Encounter Summary ---
Demographics + + + | Address | [address] | | | [place] [address] | + + + | Home Phone [...] | + + +---------+ + | [place] | ECON | Unknown | | + + +---------+ + Care Team Providers + +------+ + | Care Cuprous Chloride Operator Name | Role | Phone | [...] | +--------+ + + + + | 08/23/ | Anesthesia | [address] Intra Op [address] | Nixon Nichole, | | | 2014 | Event | [address] | ,PhD [address] | | | | | [facility] | [address] | | | | | Hospital Admitting | [place], [place] | | | | | Desk Located on the | [address] | | | | | 9th floor | [phone] | | | | | [place], [place] | | | | | | [address] | Astrid Berrios | | | | | | SIOBHAN Jiménez | | +--------+ + + + + Anesthesia Record + + + + + | Procedure Name | Responsible | Anesthesia Start | Anesthesia Stop Time | | | Anesthesiologist | Time | | + + + + + | LAPAROSCOPY SLEEVE | Per Estella Nichole, | 08/23/14 1025 | 08/23/14 1242 | | GASTRECTOMY NOT | PhD CHAPINCITO | | | | PERFORMED (N/A | | | | | Abdomen) | | | | + + + + + +----+---+ + + | Da | T | Event | Comment | | te | i | | | | | m | | | | | e | | | +----+---+ + + | 03 | 1 | | | | /2 | 0 | | | | 5/ | 2 | | | | 20 | 1 | | | | 15 | | | | +----+---+ + + | | 1 | Pt. Check | Prior to anesthesia start, pt. Identified, examined, chart | | | 0 | | reviewed, PARQ held, anesthetic plan made or approved by | | | 2 | | attending anesthesiologist. NPO status confirmed as appropriate | | | 1 | | for procedure Preoperative evaluation: unchanged | +----+---+ + + | | 1 | Eq Check | Anesthesia machine checked Equipment verified | | | 0 | | | | | 2 | | | | | 2 | | | +----+---+ + + | | 1 | An Start | | | | 0 | | | | | 2 | | | | | 5 | | | +----+---+ + + | | 1 | Eq Check | Anesthesia machine checked Equipment verified | | | 0 | | | | | 4 | | | | | 2 | | | +----+---+ + + | | 1 | An Start | | | | 0 | Data | | | | 4 | | | | | 2 | | | +----+---+ + + | | 1 | Vitals | Monitors applied Vital signs checked Patient ready for anesthesia | | | 0 | Checked | | | | 4 | | | | | 6 | | | +----+---+ + + | | 1 | Std. Airway | | | | 0 | Mgt. | | | | 5 | | | | | 0 | | | +----+---+ + + | | 1 | Ready | | | | 1 | | | | | 0 | | | | | 0 | | | +----+---+ + + | | 1 | Abx held | | | | 1 | Not Ordered | | | | 0 | | | | | 5 | | | +----+---+ + + | | 1 | Timeout | | | | 1 | | | | | 0 | | | | | 7 | | | +----+---+ + + | | 1 | Local | | | | 1 | Anesthetic | | | | 0 | by Surgeon | | | | 8 | | | +----+---+ + + | | 1 | Incision | | | | 1 | | | | | 0 | | | | | 9 | | | +----+---+ + + | | 1 | Quick Note | Surgeon has decided to abort the case because of enlarged liver. | | | 1 | | Surgeon made aware of recent paralytic dosage. | | | 5 | | | | | 6 | | | +----+---+ + + | | 1 | Surgery end | | | | 2 | | | | | 1 | | | | | 4 | | | +----+---+ + + | | 1 | An Extubate | Neuromuscular function Intact. Pharynx suctioned. Patient obeys | | | 2 | | commands. Adequate pulmonary mechanics. | | | 3 | | | | | 0 | | | +----+---+ + + | | 1 | an lm now | | | | 2 | | | | | 3 | | | | | 3 | | | +----+---+ + + | | 1 | an stop | | | | 2 | data | | | | 3 | | | | | 3 | | | +----+---+ + + | | 1 | Anesthesia | | | | 2 | End | | | | 4 | | | | | 2 | | | +----+---+ + + +------+ | Meds | +------+ + + + | Name | Total | + + + | midazolam | 1 mg | + + + | fentaNYL | 200 mcg | + + + | lidocaine 2% | 80 mg | + + + | propofol | 180 mg | + + + | rocuronium | 100 mg | + + + | neostigmine | 5 mg | + + + | glycopyrrolate | 1 mg | + + + | dexamethasone | 4 mg | + + + | metoclopramide | 10 mg | + + + | ondansetron | 4 mg | + + + | lactated ringers IV | 1,900 mL | + + + + + | Name | + + | O2 FR Avance (Total Liters) | + + | Air FR Avance (l/min) | + + | Insp Salo | + + | Et Salo | + + | Insp N2O % | + + + + | No blood administrations on file. | + + +--------+ + + + | Type | Details | Placement | Removal | +--------+ + + + | RETIRE | 08/23/14; 0930; 08/23/14; 1318; | 08/23/14 0930 by | 08/23/14 1318 by | | D - | No; #22 G; 22; Left; Wrist; | Salazar Hobson, | Maria Antonia Valdivia RN | | Periph | Lidocaine; Positive; 1; Other | RN | | | eral | (Comment) (positional) | | | | Line | | | | +--------+ + + + | RETIRE | 08/23/14; 1100; 03/19/17 | 08/23/14 1100 by | 03/19/17 1622 by | | D - | (Automatic cleanup per RA | Astrid Berrios, | Discontinued After | | Periph | 3006--contact admin for | DATA ENTRY SPECIALIST | Discharge | | eral | questions.); [...] | | | +--------+ + + + documented in this encounter Social History + +-------+ +--------+ + | [...] in this encounter Administered Medications + +--------+ +------+------+------+ | Medication Order | MAR | Action | Dose | Rate | Site | | | Action | Date | | | | + +--------+ +------+------+------+ | dexamethasone (DECADRON) | Given | 08/24/19 | 4 mg | | | | injection intravenous, | | 15 11:19 | | | | | INTRAPROCEDURE PRN, Starting Wed | | AM PDT | | | | | 08/23/14 at 1119, Until Wed | | | | | | | 08/23/14 at 1233 | | | | | | + +--------+ +------+------+------+ +---+---+ | | | +---+---+ + +-------+ +---------+---+---+ | fentaNYL citrate (PF) | Given | 08/24/19 | 100 mcg | | | | (SUBLIMAZE) injection | | 15 11:26 | | | | | INTRAPROCEDURE PRN, Starting Wed | | AM PDT | | | | | 08/23/14 at 1048, Until Wed | | | | | | | 08/23/14 at 1233, sedation | | | | | | + +-------+ +---------+---+---+ +-------+ +---------+---+---+ | Given | 08/24/19 | 100 mcg | | | | | 15 10:48 | | | | | | AM PDT | | | | +-------+ +---------+---+---+ +---+---+ | | | +---+---+ + +-------+ +------+---+---+ | glycopyrrolate (JENNIFER) | Given | 08/24/19 | 1 mg | | | | injection INTRAPROCEDURE PRN, | | 15 12:09 | | | | | Starting Thu08/23/14 at 1209, | | PM PDT | | | | | Until Thu08/23/14 at 1233 | | | | | | + +-------+ +------+---+---+ +---+---+ | | | +---+---+ + +---------+ +---+---+---+ | lactated ringers IV 10 mL/hr, | New Bag | 08/24/19 | | | | | intravenous, PROCEDURE | | 15 10:45 | | | | | CONTINUOUS, Starting Thu08/23/14 | | AM PDT | | | | | at 0845, Until Thu08/23/14 at | | | | | | | 2206 | | | | | | + +---------+ +---+---+---+ + + +---+---+---+ | given by anesthesiology | 08/24/19 | | | | | | 15 10:22 | | | | | | AM PDT | | | | + + +---+---+---+ | New Bag | 08/24/19 | | | | | | 15 9:47 | | | | | | AM PDT | | | | + + +---+---+---+ +---+---+ | | | +---+---+ + +-------+ +-------+---+---+ | lidocaine PF (XYLOCAINE MPF) 20 | Given | 08/24/19 | 80 mg | | | | mg/mL (2 %) injection | | 15 10:48 | | | | | INTRAPROCEDURE PRN, Starting Wed | | AM PDT | | | | | 08/23/14 at 1048, Until Wed | | | | | | | 08/23/14 at 1233 | | | | | | + +-------+ +-------+---+---+ +---+---+ | | | +---+---+ + +-------+ +-------+---+---+ | metoclopramide HCl (REGLAN) | Given | 08/24/19 | 10 mg | | | | injection intravenous, | | 15 11:19 | | | | | INTRAPROCEDURE PRN, Starting Wed | | AM PDT | | | | | 08/23/14 at 1119, Until Wed | | | | | | | 08/23/14 at 1233, nausea/vomiting | | | | | | + +-------+ +-------+---+---+ +---+---+ | | | +---+---+ + +-------+ +------+---+---+ | midazolam (VERSED) injection | Given | 08/24/19 | 1 mg | | | | INTRAPROCEDURE PRN, Starting Wed | | 15 10:42 | | | | | 08/23/14 at 1042, Until Wed | | AM PDT | | | | | 08/23/14 at 1233, sedation | | | | | | + +-------+ +------+---+---+ +---+---+ | | | +---+---+ + +-------+ +------+---+---+ | neostigmine (PROSTIGMIN) | Given | 08/24/19 | 5 mg | | | | injection intravenous, | | 15 12:09 | | | | | INTRAPROCEDURE PRN, Starting Wed | | PM PDT | | | | | 08/23/14 at 1209, Until Wed | | | | | | | 08/23/14 at 1233 | | | | | | + +-------+ +------+---+---+ +---+---+ | | | +---+---+ + +-------+ +------+---+---+ | ondansetron (ZOFRAN) injection | Given | 08/24/19 | 4 mg | | | | INTRAPROCEDURE PRN, Starting Wed | | 15 12:02 | | | | | 08/23/14 at 1202, Until Wed | | PM PDT | | | | | 08/23/14 at 1233 | | | | | | + +-------+ +------+---+---+ +---+---+ | | | +---+---+ + +-------+ +--------+---+---+ | propofol INTRAPROCEDURE PRN, | Given | 08/24/19 | 180 mg | | | | Starting 08/23/14 at 1050, | | 15 10:50 | | | | | Until 08/23/14 at 1233 | | AM PDT | | | | + +-------+ +--------+---+---+ +---+---+ | | | +---+---+ + +-------+ +-------+---+---+ | rocuronium (ZEMURON) injection | Given | 08/24/19 | 20 mg | | | | INTRAPROCEDURE PRN, Starting Wed | | 15 11:52 | | | | | 08/23/14 at 1049, Until Wed | | AM PDT | | | | | 08/23/14 at 1233, Neuromuscular | | | | | | | block | | | | | | + +-------+ +-------+---+---+ +-------+ +-------+---+---+ | Given | 08/24/19 | 20 mg | | | | | 15 11:23 | | | | | | AM PDT | | | | +-------+ +-------+---+---+ | Given | 08/23/ | 50 mg | | | | | 15 10:50 | | | | | | AM PDT | | | | +-------+ +-------+---+---+ +---+---+ | | | +---+---+ documented in this encounter"
--- OUTSIDE RECORDS SUMMARY | ~2019-06-14 | XMS | Encounter Summary ---
Demographics + + + | Address | [address] | | | [place] [address] | + + + | Home Phone | | + + + | Preferred Language | Unknown | + + + | Marital Status | Single | + + + | Rastafarian Affiliation | Unknown | + + + | Race | Unknown | + + + | Ethnic Group | Unknown | + + + Author + + + | Author | [facility] | | | and [place] | + + + | Organization | [facility] | | | [...] Team Providers + +------+ + | Care Abrading Machine Tender Name | Role | Phone | + +------+ + | Bassam Ross DO | PCP | | + +------+ + Reason for Visit +--------+ + | Reason | Comments | +--------+ + | Asthma | 6 mo follow up | +--------+ + Evaluate [...] | | | | Disease / | Obstructive | Bassam Mattson DO | MD Adolfo | | | | Pulmonology | sleep apnea | [id number] | [address] | | | | | (adult) | [address] | [place], | | | | | (pediatric) | [address] | [place] [address] | | | | | Dyspnea, | [address] | Phone: | | | | | unspecified | [place] | [phone] | | | | | Procedures | [address] | Fax: | | | | | F/U | Phone: | [phone] | | | | | | [phone] | | +--------+--------+ + + + + Encounter Details +--------+---------+ + + + | Date | Type | Department | Care Team | Description | +--------+---------+ + + + | 06/23/ | Office | [facility] | Adolfo Zazueta, | Mild persistent | | 2017 | Visit | PULMONARY [address] | MD [address] | asthma without | | | | [place], | [place], [place] | complication | | | | [place] [address] | [address] | (Primary Dx); | | | | [phone] | | Obstructive sleep | | | | | | apnea; Restrictive | | | | | | lung disease | | | | | | secondary to obesity | +--------+---------+ + + + Social History [...] + + + | Blood Pressure | 120/90 | 06/23/2016 1:48 PM | | | | | PST | | + + + + + | Pulse | 108 | 06/23/2016 1:48 PM | | | | | PST | | + + + + + | Temperature | - | - | | + + + + + | Respiratory Rate | - | - | | + + + + + | Oxygen Saturation | 93% | 06/23/2016 1:48 PM | | | | | PST | | + + + + + | Inhaled Oxygen | - | - | | | Concentration | | | | + + + + + | Weight | 173.6 kg (382 lb | 06/23/2016 1:48 PM | | | | 11.2 oz) | PST | | + + + + + | Height | 157.5 cm (5' 2") | 06/23/2016 1:48 PM | | | | | PST | | + + + + + | Body Mass Index | 70 | 06/23/2016 1:48 PM | | | | | PST | | + + + + + documented in this encounter Patient Instructions Patient Instructions Adolfo Zazueta MD - 06/23/2016 2:10 PM PST Exercise: Adding Intensity You have been exercising for 30 minutes most days of the week. Now you can move on to the n ext stage: increasingthe intensity. This means doing your activity in one or more of these ways: Longer. Exercise for 30 minutes or more without a break. Faster. Hike, run, or skate fast enough to raise your heart rate moderately as if you had walked fast to catch a bus. More often. Doyour activity 4 to 6 times a week instead of 1 to 3 times. Not just gym class Be creative.You can reach your health and fitness goals in many ways. Try some of these a ctivities: Team sports, like basketball or soccer Social or recreational activities, like hiking or dancing Individual exercise, like cycling, swimming, or skating Group fitness classes, like aerobic classes or weight training Safety first Whatever activity you choose, think about safety: Wear the right safety gear and shoes for your activity. Drink plenty of water during and after workouts. Wear light-colored clothing if you re out when it s dark. Make time to warm up before you exercise and cool down after. Carry ID (identification) with you if you re out alone. And be sure someone knows wher e you re going. If you re on foot, travel against traffic (except on blind corners). If you re on a bike, go with traffic. Obey the rules of the road. Tips for sticking with it Find a workout partner or sports club. If you know someone is expecting you, you ll be less likely to skip your workout. Pack a workout bag with everything you need. Then it s ready when you are. Choose a few different activities so you ll stay interested. Make it fun! What will help you to stick with it? 1. 2. 3. Date Last Reviewed: 01/11/201519998998-5514 [employer] [place] [address]. All righ ts reserved. This information is not intended as a substitute for professional medical care. Always follow your healthcare professional's instructions. documented in this encounter Progress Notes Adolfo Zazueta MD - 06/23/2016 2:01 PM PSTFormatting of this note might be different f rom the original. Pulmonary Follow Up 06/23/2016 HPI Aspen Darden is a 45 y.o. female patient of Bassam Ross, here today for follow up of a sthma, obstructive sleep apnea and restrictive lung disease secondary to obesity. The patient's last visit was on 11/15/15. Since the last visit she feels like their asthma has been stable. They have not had any acute illnesses resulting in worsening asthma sympt oms. They have not required a burst of prednisone since our last appointment. Specificall y 0 tapers of prednisone have occurred over the interval. Lastly Aspen notes 0 ED visits and 0 hospitalizations for asthma have occurred since the last appointment. Their controller medication regimen currently consists of Qvar. They do feel like this med ication regimen is effective at controlling their symptoms. Currently Aspen is using their rescue albuterol, Ventolin, 3-4 times a week. They have duoneb for use in a nebulizer and u se it 0 times a day. Triggers of their asthma include colds. She does not have nocturnal symptoms of wheezing, chest tightness or cough. She does not measure their peak flow. Currently Aspen reports being able to walk ~2 blocks at their own pace on level ground befo re becoming symptomatic. They are exercising regularly. Current exercise consists of water aerobics 2x per week. She does not cough chronically, and does [...] up to date with thei r Pneumovax . The patient uses CPAP nightly. She is going to bed at approximately 11 PM and awakening in the morning feeling rested at approximately 8 AM. CPAP is on for the entire time that she sleeps. No significant daytime fatigue. The patient's weight appears up 11 pounds and 6 ounces since our last clinic appointment. Past Medical History Past Medical History Diagnosis Date Obesity Central alveolar hypoventilation syndrome ANNABEL (obstructive sleep apnea) ~2003 Wears CPAP, sees Dr. Fairchild Periodic limb movement disorder (PLMD) Depression with anxiety Nephrotic syndrome Previous. Resloved per pt. resport. COPD (chronic obstructive pulmonary disease) ([facility]) patent denies Osteoarthritis Hypothyroidism Vitamin D deficiency Anemia patent denies Insomnia Hypertensive disorder Lymphedema Allergic rhinitis due to pollen Cyst of ovary Endometriosis s/p GLENN BSO Asthma adult diagnosis MRSA (methicillin resistant Staphylococcus aureus) septicemia ([facility]) left foot source Fracture, humeral 2013 Acid reflux disease GROSSMAN (dyspnea on exertion) Allergies: Allergies Allergen Reactions Clarithromycin Fluticasone-Salmeterol Gabapentin [...] times daily ., Disp: 1 Inhaler, Rfl: 11 benzonatate (TESSALON) 100 mg capsule, Take 100 [...] if needed for pain, Disp: , Rfl: X-Tbcvbzywirzd-[id number]-B2 (CEREFOLIN) 6-1-50-5 MG TABS, Take 1 tablet by mouth Daily., Disp: , Rfl: levothyroxine (SYNTHROID, LEVOTHROID) 75 MCG tablet, Take one tablet daily, Disp: , Rf l: 1 omeprazole (PRILOSEC) 20 mg capsule, Take one capsule daily, Disp: , Rfl: 1 PARoxetine (PAXIL) 40 MG tablet, Take one tablet daily, Disp: , Rfl: 0 pramipexole (MIRAPEX) 1.5 MG tablet, Take 75 mg by mouth 2 times daily., Disp: , Rfl: prazosin (MINIPRESS) 1 mg capsule, Take one capsule daily, Disp: , Rfl: 0 Uncoded Medication, Lifelong-99;Obstuctie Sleep Apnea, Disp: 1 [...] as needed for Wheezing., Disp: , Rfl: Immunizations: Immunization History Administered Date(s) Administered INFLUENZA PF 18 Y OR >,TRIVALENT RECOMBINANT 02/21/2013, 03/01/2015 INFLUENZA PF TRIVALENT(PED/ADOL/ADULT), PSKT 03/10/2016 PNEUMOCOCCAL POLYSACCHARIDE 23-VALENT (PPSV23) 11/18/2013 Review of Systems Constitutional: Denies fever, chills, [...] urticaria, allergic rash, hay fever. Objective BP 120/90 mmHg | Pulse 108 | Ht 1.575 m (5' 2") | Wt 173.592 kg (382 lb 11.2 oz) | BMI 69.9 8 kg/m2 | SpO2 93% | ? No Appearance: Alert, cooperative, no [...] Extremities normal, atraumatic, no cyanosis, clubbing. Trace edema. some disco loration of the lower extremities without increased warmth is appreciated. Skin: Warm and dry. Lymph nodes: Cervical and supraclavicular nodes normal. Neurologic: Gait normal. Data: None Assessment 1. Asthma mild persistent. Currently treated with Qvar 80 g per puff, 2 puffs twice d aily. No significant asthma exacerbations over the last 7 months. Today we discussed stepping down the dose of Qvar but ultimately decided to maintain medica tion at its current dose for the next 12 months. 2. Obstructive sleep apnea symptoms well controlled with nightly CPAP. No issues identi fied. 3. Restrictive lung disease secondary to obesity. Unfortunately it appears that Ms. ortega s weight has increased since our last appointment. Today we discussed the benefits of regular scheduled exercise and increasing exercise inten sity if tolerated. Weight loss efforts were encouraged. Plan 1. No change in the patient's Qvar at this time. 2. Given stability of symptoms the interval between pulmonary clinic follow-up appointment s will be lengthened to 12 months. 3. Seasonal influenza vaccination March 2017. CC: Bassam Ross DO documented in this [...] | Visit | | MD Jac Sousa [place] | | | | | | [address] | | | | | | [place] [address] | | | | | | [phone] | | | | | | | | +--------+---------+ + + + documented as of this encounter Visit Diagnoses + + | Diagnosis | + + | Mild persistent asthma without complication - Primary Unspecified asthma | + + | Obstructive sleep apnea Obstructive sleep apnea (adult) (pediatric) | + + | Restrictive lung disease secondary to obesity Other diseases of lung, not elsewhere | | classified | + + documented in this encounter
--- OUTSIDE RECORDS SUMMARY | ~2019-06-14 | XMS | Encounter Summary ---
Demographics + + + | Address | [address] | | | [place] [address] | + + + | Home Phone | | + + + | Preferred Language | Unknown | + + + | Marital Status | Single | + + + | Yazidism Affiliation | Unknown | + + + | Race | Unknown | + + + | Ethnic Group | Unknown | + + + Author + + + | Author | [facility] | | | and [place] | + + + | Organization | [facility] | | | [...] Team Providers + +------+ + | Care Boiler Shop Supervisor Name | Role | Phone | [...] Description | +--------+---------+ + + + | 10/01/ | Office | [facility] | Magdiel Stern PA | ANNABEL on CPAP (Primary | | 2017 | Visit | SLEEP DISORDER [address] | [address] | Dx) | | | | [address] [place] | [place] | | | | | [place] [address] | [address] | | | | | [phone] | | | +--------+---------+ + + + [...] + + + | Blood Pressure | 132/90 | 10/01/2016 2:33 PM | | | | | PDT | | + + + + + | Pulse | 104 | 10/01/2016 2:33 PM | | | | | PDT | | + + + + + | Temperature | - | - | | + + + + + | Respiratory Rate | 16 | 10/01/2016 2:33 PM | | | | | PDT | | + + + + + | Oxygen Saturation | 90% | 10/01/2016 2:33 PM | | | | | PDT | | + + + + + | Inhaled Oxygen | - | - | | | Concentration | | | | + + + + + | Weight | 184.3 kg (406 lb 4.8 | 10/01/2016 2:33 PM | | | | oz) | PDT | | + + + + + | Height | - | - | | + + + + + | Body Mass Index | 74.31 | 06/23/2016 1:48 PM | | | | | PST | | + + + + + documented in this encounter Progress Notes Marli Escobar, Claim Clerk - 10/01/2016 2:46 PM PDT 10/01/16 1400 Ernandez Depression Inventory-II Depression Score 30 - Severe depression Insomnia Severity Index Insomnia Severity Index 13 Thompsons Sleepiness Scale Sitting and reading 3 Watching TV 3 Sitting, inactive in a public place (e.g. a theatre or a meeting) 2 As a passenger in a car for an hour without a break 3 Lying down to rest in the afternoon when circumstances permit 3 Sitting and talking to someone 1 Sitting quietly after a lunch without alcohol 3 In a car, while stopped for a few minutes in traffic 0 Total score 18 SF-36v2 Score PF 28.83 RP 43.68 BP 30.55 GH 33.22 VT 43.69 SF 32.27 RE 35.28 MH 37.79 PCS 33.92 MCS 39.23 oram, JW Gallego - 07/2016 2:01 PM PDT Subjective: Patient ID: Aspen Darden is a 46 y.o. female. HPI last office visit: 07/16/2015 date of polysomnography: 10/20/2011 AHI: 29 RDI: 29.3 O2%: 62% Machine type: ResMed S9 Mask type: nasal pillows DME: [facility] [place] pressure: 10-20 cm (lowered from 14-20 due to weight loss) Median: 11.2 cm 95%: 14.0 cm maxium: 15.2 cm Nights using CPAP: 345/365 282/365 % of nights >4 hours: 93% 71% average usage (all nights): 8:44 5:10 average usage (nights used): 9:15 6:42 AHI: 0.6 Aspen comes in for CPAP compliance. She has a history of excellent compliance. She has no t done as well during the last few months, mostly because of her father passing away on 2016. She also says her daughter moved in with her dad and Aspen often falls asle ep on her couch without her CPAP while watching television. She does not sleep nearly as we ll without her CPAP. She plans to return to using her CPAP nightly. She does not have any questions or concerns. I have discussed the download and results of the paperwork in detail. The download shows t hat her sleep apnea is controlled, with an AHI of 0.6. It also shows that her leaks are con trolled. She has been concerned about her weight and had gastric sleeve surgery in January,. She had lost over 80 pounds at her appointment last year, but has gained much of this weigh t back. Her plans were to get to her target weight of 199 pounds. BP 132/90 mmHg | Pulse 104 | Resp 16 | Wt 184.296 kg (406 lb 4.8 oz) | SpO2 90% Review of Systems Objective: Physical Exam Assessment: Problem #1: OBSTRUCTIVE SLEEP APNEA ([id number]) This is controlled with CPAP at her current pressure range of 10-20 cm. Her CPAP complianc e is going well. Plan: 1. She is to continue with CPAP indefinitely. 2. Touch base with medical supplier twice per year to ensure that all equipment is satisfa ctory. I will follow up again in 1 year, sooner prn. At that time we will reassess with all appro piate paperwork. Fifteen minutes were spent [id number], with the majority of time spent i n counseling. Magdiel Stern PA-C cc: Bassam Ross DO documented in this enco unter Plan of Treatment +--------+---------+ + + + | Date | Type | Specialty | Care Team | Description | +--------+---------+ + + + | 06/14/ | Office | Pulmonology | Adolfo Zazueta, | | 2019 | Visit | | MD Jac [address] | | | | | | [place] | | | | | | [phone] | | | | | | | | +--------+---------+ + + + | 08/20/ | Office | Sleep Medicine | Jermaine Fairchild | | | 2019 | Visit | | MD Lars [address] | | | | | | [facility] | | | | | | [place] [address] | | | | | | [phone] | | | | | | | | +--------+---------+ + + + documented as of this encounter Visit Diagnoses + + | Diagnosis | + + | ANNABEL on CPAP - Primary Obstructive sleep apnea (adult) (pediatric) | + + documented in this encounter"
--- OUTSIDE RECORDS SUMMARY | ~2019-06-14 | XMS | Encounter Summary ---
Demographics + + + | Address | [address] | | | [place] [address] | + + + | Home Phone [...] + + + | Author | [facility] | + + + | Organization | [facility] | + + + [...] | + + +---------+ + | [place] | ECON | Unknown | | + + +---------+ + Care Team Providers + +------+ + | Care Rcis Name | Role | Phone | + +------+ + | Bassam Ross DO | PCP | | + +------+ + Encounter Details +--------+ + + + + | Date | Type | Department | Care Team | Description | +--------+ + + + + | 05/16/ | Abstract | Digestive Health | Tilgner, Thania F, | | | 2012 | | Center at [facility] [address] | [address] | | | | | [address] | [place], [place] | | | | | Mailcode: [place] | [address] | | | | | for Health and | | | | | | [place] [address] | | | | | | [place], [place] | | | | | | [address] | | | | | | | [...]
--- OUTSIDE RECORDS SUMMARY | ~2019-06-14 | XMS | Encounter Summary ---
Demographics + + + | Address | [address] | | | [place] [address] | + + + | Home Phone | | + + + | Preferred Language | Unknown | + + + | Marital Status | Single | + + + | Anabaptism Affiliation | NRP | + + + [...] | + + +---------+ + | [place] | ECON | Unknown | | + + +---------+ + Care Team Providers + +------+ + | Care Apple Picker Name | Role | Phone | + +------+ + | Bassam Ross DO | PCP | | + +------+ + Encounter Details +--------+ + + + + | Date | Type | Department | Care Team | Description | +--------+ + + + + | 06/07/ | Abstract | Digestive Health | Tilgner, Thania F, | | | 2014 | | Center at [facility] [address] | [address] | | | | | [address] | [place], [place] | | | | | Mailcode: [place] | [address] | | | | | for Health and | | | | | | [facility] [address] | | | | | | [place], [place] | | | | | | [address] | | | | | | | [...]
--- OUTSIDE RECORDS SUMMARY | ~2019-06-14 | XMS | Encounter Summary ---
Demographics + + + | Address | [address] | | | [place] [address] | + + + | Home Phone [...] Team Providers + +------+ + | Care Php Architect Name | Role | Phone | [...] + + + + | 12/22/ | Telephone | Digestive Health | [address] | Bariatric Nutrition | | 2014 | | Center at [facility] [address] | [address] | | | | | [address] | [place], | | | | | Mailcode: [place] | [place] [address] | | | | | for Health and | | | | | | [facility], [place] [address] | | | | | | [place], [place] | | | | | | [address] | | | | | | [phone] | | | +--------+ + + + [...]
--- OUTSIDE RECORDS SUMMARY | ~2019-06-14 | XMS | Encounter Summary ---
Demographics + + + | Address | [address] | | | [place] [address] | + + + | Home Phone [...] | + + +---------+ + | [place] | ECON | Unknown | | + + +---------+ + Care Team Providers + +------+ + | Care Lead Architect Name | Role | Phone | + +------+ + | Iqra Peralta MD | PCP | | + +------+ + Encounter Details +--------+ + + + + | Date | Type | Department | Care Team | Description | +--------+ + + + + | 01/09/ | Pharmacy | Outpatient Retail | | | | 2014 | Visit | [facility] | | | | | | [address] | | | | | | [address] [place], [place] | | | | | | [address] | | | | | | [phone] | | | +--------+ + + + [...]
--- OUTSIDE RECORDS SUMMARY | ~2019-06-14 | XMS | Encounter Summary ---
Demographics + + + | Address | [address] | | | [place] [address] | + + + | Home Phone | | + + + | Preferred Language | Unknown | + + + | Marital Status | Single | + + + | Latter Day Affiliation | Unknown | + + + | Race | Unknown | + + + | Ethnic Group | Unknown | + + + Author + + + | Author | [facility] | | | and [place] | + + + | Organization | [facility] | | | [...] Team Providers + +------+ + | Care Analog Ic Design Engineer Name | Role | Phone | + +------+ + | Bassam Ross DO | PCP | | + +------+ + Encounter Details +--------+ + + + + | Date | Type | Department | Care Team | Description | +--------+ + + + + | 08/29/ | Orders Only | [facility] [place] | Shellie Enriquez, | Restrictive lung | | 2016 | | PULMONARY [address] | RN | disease secondary to | | | | [place], | | obesity | | | | [place] [address] | | | | | | [phone] | | | +--------+ + + + [...] [place] | | | | | | [address] | | | | | | | | +--------+---------+ + + + | 01/18/ | Office | Sleep Medicine | Jermaine Fairchild | | 2019 | Visit | | MD Jac Sous[address] [place] | | | | | | [place] | | | | | | [place] [address] | | | | | | [phone] | | | | | | | | +--------+---------+ + + + documented as of this encounter Visit Diagnoses + + | Diagnosis | + + | Restrictive lung disease secondary to obesity Other diseases of lung, not elsewhere | | classified | + + documented in this encounter"
--- OUTSIDE RECORDS SUMMARY | ~2019-06-14 | XMS | Encounter Summary ---
Demographics + + + | Address | [address] | | | [place] [address] | + + + | Home Phone | | + + + | Preferred Language | Unknown | + + + | Marital Status | Single | + + + | Episcopalian Affiliation | Unknown | + + + | Race | Unknown | + + + | Ethnic Group | Unknown | + + + Author + + + | Author | [facility] | | | and [place] | + + + | Organization | [facility] | | [...] Team Providers + +------+ + | Care Conference Planning Manager Name | Role | Phone | [...] | +--------+ + + + + | 05/08/ | Telephone | [facility] | Magdiel Stern PA | Other | | 2014 | | SLEEP DISORDER [address] | [address] | | | | | [address] [place] | [place], [place] | | | | | [place] [address] | [address] | | | | | [phone] | | | +--------+ + + + [...] [place] | | | | | | [place] | | | | | | [address] | | | | | | | | +--------+---------+ + + + | 01/18/ | Office | Sleep Medicine | Jermaine Fairchild | | 2019 | Visit | | MD Jac Sousa | | | | | | [address] | | | | | | [place] [address] | | | | | | [phone] | | | | | | | | +--------+---------+ + + + documented as of this encounter Visit Diagnoses Not on filedocumented in this encounter"
--- OUTSIDE RECORDS SUMMARY | ~2019-06-14 | XMS | Encounter Summary ---
Demographics + + + | Address | [address] | | | [place] [address] | + + + | Home Phone | | + + + | Preferred Language | Unknown | + + + | Marital Status | Single | + + + | Orthodoxy Affiliation | Unknown | + + + | Race | Unknown | + + + | Ethnic Group | Unknown | + + + Author + + + | Author | [facility] | | | and [place] | + + + | Organization | [facility] | | | and [...] Team Providers + +------+ + | Care Cost Recorder Name | Role | Phone | + +------+ + | Bassam Ross DO | PCP | | + +------+ + Reason for Visit + + + | Reason | Comments | + + + | Pulmonary Disease | 2 week follow up - RLD | | Appointment | | + + [...] | | | Pulmonology | obstructive | [address] | [address] | | | | | pulmonary | [address] | [place], | | | | | disease, | [address] | [place] [address] | | | | | unspecified | [address] | Phone: | | | | | (HCC) | [place] | [phone] | | | | | Obstructive | [address] | Fax: | | | | | sleep apnea | Phone: | [phone] | | | | | (adult) | [phone] | | | | | | (pediatric) | | | | | | | Procedures | | | | | | | F/U | | | +--------+--------+ + + + + Encounter Details +--------+---------+ + + + | Date | Type | Department | Care Team | Description | +--------+---------+ + + + | 10/10/ | Office | [facility] | Adolfo Zazueta, | Mild persistent | | 2016 | Visit | PULMONARY [address] | MD [address] | asthma without | | | | [place], | [place], [place] | complication; | | | | [place] [address] | [id number] | Obstructive sleep | | | | [phone] | | apnea | +--------+---------+ + + + Social History [...] + + + | Blood Pressure | 134/76 | 10/11/2015 11:14 AM | | | | | PDT | | + + + + + | Pulse | 86 | 10/11/2015 11:14 AM | | | | | PDT | | + + + + + | Temperature | - | - | | + + + + + | Respiratory Rate | - | - | | + + + + + | Oxygen Saturation | 97% | 10/11/2015 11:14 AM | | | | | PDT | | + + + + + | Inhaled Oxygen | - | - | | | Concentration | | | | + + + + + | Weight | 164.7 kg (363 lb) | 10/11/2015 11:14 AM | | | | | PDT | | + + + + + | Height | 157.5 cm (5' 2") | 10/11/2015 11:14 AM | | | | | PDT | | + + + + + | Body Mass Index | 66.39 | 10/11/2015 11:14 AM | | | | | PDT | | + + + + + documented in this encounter Patient Instructions Patient Instructions Adolfo Zazueta MD - 10/11/2015 11:48 AM PDT Asthma Medication Get used to using your inhaled corticosteroid medication before you brush your teeth. That way you will always rinse your mouth afterward. Medications play a rutledge role in controlling asthma. Some help control asthma symptoms and pr event flare-ups. Others are used to treat symptoms when they occur. Always take your medicat ion as prescribed. Know the names of your medication and how and when to use them. if you mcgowan ve any questions about your medications, talk with your health care provider or pharmacist. Quick-Relief Medication Quick-relief (also called rescue ) medications work by relaxing the muscles around the airways. This helps ease symptoms such as coughing, wheezing, and shortness of breath. Keep your quick-relief inhaler with you at all times. Quick-relief medications: Are inhaled when needed. Use your quick-relief medication when you first notice your ast hma is getting worse. Start to open the airways within a few minutes after you use them. Can help stop a flare-up once it has begun. May be used beforeexercise. Long-Term Control Medication Long-term control (also called maintenance or controller) medications help reduce swe lling and inflammation of the airways. This makes the airways less sensitive to triggers and less likely to flare up. Long-term control medications: Are taken on a schedule for most people, every day. They are taken even when you feel fine. Help keep asthma under control so you re less likely to have symptoms. Will NOT stop a flare-up once it has begun. Inhaled Corticosteroids Inhaled corticosteroids are safe for long-term use. They are not the steroids that yo u hear about athletes abusing. They usually do not cause serious side effects. That s elizabeth use they re inhaled directly into the lungs. The chance of minorside effects can be lowe red even more if you: Use a spacerwith your inhaler. Ask your health care provider or pharmacist about using a spacer if you don't currently use one. Rinse your mouth, gargle, and spit out the water after using your inhaled corticosteroid medication. Follow all instructions for cleaning inhalers and spacers. Work with your health care provider to find the lowest dose that controls your asthma. Tips for Taking Medication Remembering to take medication each day can be hard for anyone. It can be even harder to re member when you don t have symptoms. Try these tips: Develop a routine. For example, take long-term controllers as part of getting ready for bed. Make sure you understand what long-term controllers do and don t do. Refill your prescriptions on time, or even ahead of time, so you don t run out. Carry your quick-relief medication with you. If you can, keep a spare quick-relief inhal er at work, at school, or in your gym bag. When you travel, make sure you have enough medication to last for your entire trip. When traveling by air, keep your medications with you, not packed in your luggage. Make sure you know how to tell if your inhaler is empty. Ask yourprovider or pharmacis t, or check the instructions that comewith yourinhaler. Working with Your Health Care Provider By working with your health care provider, you can get the most benefit from your medicatio n. Talkwith your health care provider about: Getting the right dose.Over time, your health care provider may raise or lower the dos e of yourcontroller medication. The goal is to find the amount of medication to keep asthm a in control, without taking more than is needed. Finding the right medications for you.Each person is unique. It may take a few tries t o find the right medication or combination of medications for you. If one medication doesn t work well for you, another may work better. Minimizing side effects.If you have side effects, don t just stop taking your medica tion. Instead, call your health care provider. A new medication or change in the amount of m edication may solve the problem. [id number] [employer]. [address] [place] [address]. All righ ts reserved. This information is not intended as a substitute for professional medical care. Always follow your healthcare professional's instructions. documented in this encounter Progress Notes Adolfo Zazueta MD - 10/11/2015 11:37 AM PDTFormatting of this note might be different f rom the original. Pulmonary Follow Up 10/11/2015 HPI Aspen Darden is a 45 y.o. female patient of Bassam Ross DO here today for follow up of p ossible asthma and obstructive sleep apnea. The patient's last visit was on 09/21/15. Since the last visit she feels like [...] Their controller medication regimen currently consists of prn albuterol. They do feel like this medication regimen is effective at controlling their sympoms. Currently Aspen is in g their rescue albuterol, Ventolin, 2 times a day. They have an albuterol/iprt nebulizer an d use it 0 times a day. Triggers of their asthma include cottonwood and cigarrettes. She does not have nocturnal s ymptoms of wheezing, chest tightness or cough. She does not measure their peak flow. Currently Aspen reports being able to walk 1 block at their own pace on level ground before becoming symptomatic. They are exercising regularly. She continues to walk for approximat john one hour on a daily basis. She does not cough chronically. She does not report symptoms of heartburn or acid reflux. They have not had recent symptoms of nasal congestion, runny nose or post nasal drip. New triggers since the last appointment include none. The patient continues to wear CPAP at night. No issues with hypersomnolence are noted. Pearson pplemental oxygen is at 2 L/m through CPAP. Past Medical History Past Medical History Diagnosis Date Obesity Central alveolar hypoventilation syndrome ANNABEL (obstructive sleep apnea) ~2003 Wears CPAP, sees Dr. Fairchild Periodic limb movement disorder (PLMD) Depression with anxiety Nephrotic syndrome Previous. Resloved per pt. resport. COPD (chronic obstructive pulmonary disease) ([facility]) patent denies Osteoarthritis Hypothyroidism Vitamin D deficiency Anemia patent denies Insomnia Hypertensive disorder Lymphedema Allergic rhinitis due to pollen Cyst of ovary Endometriosis s/p GLENN BSO Asthma adult diagnosis MRSA (methicillin resistant Staphylococcus aureus) septicemia ([facility]) left foot source Fracture, humeral 2013 Allergies: Allergies Allergen Reactions Clarithromycin Fluticasone-Salmeterol Gabapentin [...] if needed for pain, Disp: , Rfl: [id number] (CEREFOLIN) 6-1-50-5 MG TABS, Take by mouth., [...] urticaria, allergic rash, hay fever. Objective BP 134/76 mmHg | Pulse 86 | Ht 1.575 m (5' 2") | Wt 164.656 kg (363 lb) | BMI 66.38 kg/m2 | SpO2 97% | ? No [...] supraclavicular nodes normal. Neurologic: Gait normal. Data: Pulmonary function tests were performed on 10/11/15 and were reviewed and interpreted in cli marie today. The PFTs show FVC of 2.73, 88% of predicted, the FEV1/FVC is 78%. The total susan g capacity is 4.55, 96% of predicted with an uncorrected DLCO 23.2, 93% of predicted. Nocturnal oximetry on CPAP without supplemental oxygen. The patient's O2 saturation was 88 % or below for only 3.7 minutes. Assessment 1. Possible asthma though the patient's pulmonary function tests do not show airflow obs truction she does report significant improvement of her shortness of breath with Ventolin. It is reasonable to initiate a trial of inhaled corticosteroid. 2. Query restrictive lung disease in the past Ms. Darden has been noted to have moderate r estrictive changes based on pulmonary function tests from December 2013. She subsequently und erwent bariatric surgery and has lost a significant amount weight. Her restrictive pulmonar y function tests appear to have resolved. 3. Obstructive sleep apnea currently well-controlled with nocturnal CPAP. No issues sari ntified. 4. Nocturnal hypoxemia thought to be secondary to alveolar hypoventilation-related to ob esity. Recently nocturnal oximetry shows that the patient is no longer significantly desatu rating at night while sleeping with CPAP alone. Plan 1. Discontinue supplemental oxygen through CPAP at night. 2. Trial of Qvar 80 g per puff, 2 puffs twice daily. 3. Pulmonary clinic follow-up appointment to assess the status of the patient's symptoms i n approximately 4 weeks' time. CC: Bassam Ross DO documented in this [...] | | | | | [place] [address] | | | | | | [phone] | | | | | | | | +--------+---------+ + + + documented as of this encounter Procedures + +--------+ + + + | Procedure Name | Priori | Date/Time | Associated Diagnosis | Comments | | | ty | | | | + +--------+ + + + | DIAGNOSTIC REPORT - | | 09/27/2015 | | Results for this | | EXTERNAL SCAN | | 12:00 AM | | procedure are in the | | | | PDT | | results section. | + +--------+ + + + documented in this encounter Results DIAGNOSTIC REPORT - EXTERNAL SCAN (09/27/2015 12:00 AM PDT) + + + | Narrative | Performed At | + + + | Ordered by an | | | unspecified provider. | | + + + documented in this encounter Visit Diagnoses + + | Diagnosis | + + | Mild persistent asthma without complication Unspecified asthma | + + | Obstructive sleep apnea Obstructive sleep apnea (adult) (pediatric) | + + documented in this encounter
--- OUTSIDE RECORDS SUMMARY | ~2019-06-14 | XMS | Encounter Summary ---
Demographics + + + | Address | [address] | | | [place] [address] | + + + | Home Phone [...] Team Providers + +------+ + | Care Traveling Nurse Name | Role | Phone | + +------+ + PCP | Unavailable | + +------+ + Encounter Details +--------+ + + + + | Date | Type | Department | Care Team | Description | +--------+ + + + + | 04/25/ | [facility] | Isabel Lu | | | 1998 - | Encounter | MED CTR GENERIC OP | M, DO [address] | | | | | CONV DEPT [address] | [address] | | | 05/31/ | | [place], | [place] | | | 1998 | | [place] [address] | [address] | | | | | [phone] | | | +--------+ + + + [...] [place] | | | | | | [address] | | | | | | | | +--------+---------+ + + + | 01/18/ | Office | Sleep Medicine | Jermaine Fairchild | | | 2020 | Visit | | MD Lars [address] [place] [address] | | | | | | [place] | | | | | | [place] [address] | | | | | | [phone] | | | | | | | | +--------+---------+ + + + documented as of this encounter Visit Diagnoses Not on filedocumented in this encounter"
--- OUTSIDE RECORDS SUMMARY | ~2019-06-14 | XMS | Encounter Summary ---
Demographics + + + | Address | [address] | | | [place] [address] | + + + | Home Phone [...] Providers + +------+ + | Care Billet Worker Name | Role | Phone | + +------+ + | Bassam Ross DO | PCP | | + +------+ + Reason for Visit Evaluate & Treat (Routine) +--------+ + + [...] | hypoventilat | MD [address] | [place] | | | | | ion syndrome | [place] | [place], | | | | | (HCC) ANNABEL | [facility] | [place] [address] | | | | | (obstructive | [facility], [place] | Phone: | | | | | sleep | [address] | [phone] | | | | | apnea) | Phone: | Fax: | | | | | Procedures | [phone] | [phone] | | | | | MS POLYSOM | Fax: | | | | | | 6/>YRS SLEEP | [phone] | | | | | | W/CPAP 4/> | | | | | | | ADDL BECKY | | | | | | | ATTND MS | | | | | | | [...] | +--------+ + + + + + Encounter Details +--------+ + + + + | Date | Type | Department | Care Team | Description | +--------+ + + + + | 09/21/ | Hospital | [facility] | Gurinder Jermaine Jennifer | Obesity | | 2018 - | Encounter | [facility] SLE[facility] | MD [address] | hypoventilation | | | | [place] [address] | [address] | syndrome (HCC); ANNABEL | | 09/22/ | | [place], [place] | [place] [address] | (obstructive sleep | | 2018 | | [address] | [phone] | apnea) | | | | [phone] | | | +--------+ + + + [...] | Lifelong-99;Obstucti | 1 | 0 | 04/16/20 | | | MedicationIndication | e Sleep [...] + + +---------+ + + | beclomethasone HFA | Inhale 2 puffs into | 1 | 3 | 08/14/19 | | | (QVAR REDIHALER) 80 | the lungs 2 times | Inhaler | | 18 | 8 | | mcg/puff inhaler | daily. | | | | | + + + +---------+ + + | desvenlafaxine | Take one tablet | | 0 | 06/02/19 | | | (PRISTIQ) 50 mg ER | daily | | | 18 | 8 | | tablet | | [...] | 06/14/ | Office | Pulmonology | ZazuetaAdolfo, | | | 2019 | Visit | | MD Jac ARENAS | | | | | | [place] | | | | | | [address] | | | | | | | | +--------+---------+ + + + | 01/18/ | Office | Sleep Medicine | Jermaine Fairchild | | | 2019 | Visit | | MD Jac S[address] [place] | | | | | | [place] | | | | | | [place] [address] | | | | | | [phone] | | | | | | | | +--------+---------+ + + + documented as of this encounter Procedures + +--------+ + + + | Procedure Name | Priori | Date/Time | Associated Diagnosis | Comments | | | ty | | | | + +--------+ + + + | SLEEP STUDY PAP | Routin | 09/22/2017 | | Results for this | | TITRATION | e | 10:16 AM | | procedure are in the | | | | PDT | | results section. | + +--------+ + + + | SLEEP STUDY PAP | Routin | 09/22/2017 | | Results for this | | TITRATION | e | 10:16 AM | | procedure are in the | | | | PDT | | results section. | + +--------+ + + + | POC BLOOD GASES | Routin | 09/22/2017 | | Results for this | | | e | 7:58 AM | | procedure are in the | | | | PDT | | results section. | + +--------+ + + + | POC BLOOD GASES | Routin | 09/22/2017 | | Results for this | | | e | 12:45 AM | | procedure are in the | | | | PDT | | results section. | + +--------+ + + + documented in this encounter Results Sleep study PAP titration (09/22/2017 10:16 AM PDT) + + + | Narrative | Performed At | + + + | [facility] | | | Gurinder Sousa MD 09/22/2017 11:05 [facility] | | | [place] [address] | | | Positive Airway Pressure Titration Report on Aspen Darden performed | | | on September 21, 2017. Clinical Information: Aspen Darden is a 47 y.o. | | | female who underwent polysomnographically guided PAP on September 21, | | | 2018. The patient has a long-standing history of obstructive sleep | | | apnea as well as obesity hypoventilation syndrome. Recently she has | | | been hospitalized in [place] with pneumonia and in addition to CPAP | | | requires oxygen 2 L a minute. She is brought into the laboratory to | | | present time for repeat positive airway pressure titration and oxygen | | | titration. Technical Information: Please see technical data which is | | | attached. Definitions (The AASM Manual for the Scoring of Sleep and | | | Associated Events, Version 2.4; 2017): Apnea: There is a drop in the | | | peak signal excursion by 90% or greater of pre-event baseline using an | | | oronasal thermal sensor (diagnostic study), PAP device flow | | | (titration study), or an alternative apnea sensor (diagnostic study); | | | the duration of the 90% or greater drop in sensor signal is 10 seconds | | | or longer. Obstructive Apnea: Event associated with continued or | | | increased inspiratory effort throughout the entire period of absent | | | airflow. Central Apnea: Event associated with absent inspiratory | | | effort throughout the entire period of absent airflow. Mixed Apnea: | | | Event associated with absent inspiratory effort in the initial portion | | | of the event followed by resumption of inspiratory effort during the | | | second portion of the event. Hypopnea: The peak signal excursions drop | | | by greater than or equal to 30% of pre-event baseline using a | | | recommended or alternative airflow sensor and the duration of the >= | | | 30% drop in signal excursion is greater than or equal to 10 seconds | | | and there is a greater than or equal to a 4% oxygen desaturation from | | | pre-event baseline. Respiratory Event Related Arousal: A sequence of | | | breaths lasting 10 seconds or longer characterized by increasing | | | respiratory effort or by flattening of the inspiratory portion of the | | | nasal pressure (diagnostic study) or PAP device flow (titration study) | | | waveform leading to arousal from sleep when the sequence of breaths | | | does not meet criteria for an apnea or hypopnea. Sleep Architecture: | | | Lights out was recorded at 2319 hundred hours on September 21, 2017 and | | | lights on was recorded at 0802 hundred hours on September 22, 2017. The | | | latency to sleep onset was normal at 12 minutes. The patient slept for | | | 392 minutes out of 522.5 minutes of study time resulting an a sleep | | | efficiency that was low at 75 %. The amount of N1 sleep was mildly | | | elevated at 11.1 % of the Total Sleep Time; the amount of N2 sleep was | | | normal at 64.2 % of the Total Sleep Time; the amount of N3 sleep was | | | normal at 10.7 % of the Total Sleep Time; the amount of REM sleep was | | | mildly decreased at 14 % of the Total Sleep Time and the latency to | | | REM sleep was mildly prolonged at 158 minutes. Sleep was recorded in | | | the following positions: left lateral decubitus 0.5%, right lateral | | | decubitus 25.1%, supine 74.4%, prone 0%. Sleep was significantly | | | fragmented; the Arousal Index was 32.4. Cardiopulmonary Monitoring: | | | The heart rate averaged in the 80s beats per minute. Mild rate | | | variability was noted. The rhythm was atrial fibrillation. In the | | | course of the evening the patient started at CPAP of 10 cm with oxygen | | | 2 L/minute. This was increased to CPAP of 12 cm because of oxygen | | | desaturation as well as end-tidal CO2 levels in the low 60s. At this | | | level of support arterial blood gases were obtained which revealed a | | | pH of 7.383, PCO2 62.9, PaO2 69.2. Because of hypoventilation the | | | patient was switched to iVAPS therapy. Oxygen was also gradually | | | increased to maintain saturations in the 90% range. The patient | | | finished the evening on oxygen 5 L/m,Target Va 4.5, Tgt MS 20; EPAP | | | 11; Max PS 16cm; Min PS 6cm; TiMin 0.8; Rise Time 400; Trigger M, | | | Cycle M. at this level of support oxygen saturation appeared much | | | improved and normal. End-tidal CO2 levels however remained elevated. | | | At the end of the study arterial blood gases were repeated which | | | revealed at this level of support (at 0758 hours) a PVC O2 of 62.3, | | | PO2 84.2, pH 7.392. Limb Movement Monitoring: There were 17 Periodic | | | Limb Movements (PLMS Index 2.6) of which 6 were associated with | | | arousals; the PLMS Arousal Index was normal at 0.9. Interpretation: | | | This is a satisfactory PAP and oxygen titration study. 1. The | | | patient has obstructive sleep apnea as well as severe obesity related | | | hypoventilation which appears to be controlled with iVAPS: Target Va | | | 4.5, Tgt MS 20; EPAP 11; Max PS 16cm; Min PS 6cm; TiMin 0.8; Rise Time | | | 400; Trigger M, Cycle M with oxygen 5 l/min. Suggestions:1. The | | | principles of Sleep Hygiene should be reviewed with the patient.2. | | | iVAPS: Target Va 4.5, Tgt MS 20; EPAP 11; Max PS 16cm; Min PS 6cm; | | | TiMin 0.8; Rise Time 400; Trigger M, Cycle M with oxygen 5 l/min is | | | advised. Jermaine Fairchild Jr., MD, [facility]PITALMedical DirectorKatconemaugh nason medical center | | | [facility] Sleep Disorders [facility] | | | [facility] Hospitaljohnathon ARClinical Energy Sales Broker of | | | [place] | | |therapy. Oxygen was also gradually increased to maintain | | |saturations in the 90% range. The patient finished the evening | | |on oxygen 5 L/m,Target Va 4.5, Tgt MS 20; EPAP 11; Max PS 16cm; | | |Min PS 6cm; TiMin 0.8; Rise Time 400; Trigger M, Cycle M. at this | | |level of support oxygen saturation appeared much improved and | | |normal. End-tidal CO2 levels however remained elevated. At the | | |end of the study arterial blood gases were repeated which | | |revealed at this level of support (at 0758 hours) a PVC O2 of | | |62.3, PO2 84.2, pH 7.392. | | | | | |Limb Movement Monitoring: There were 17 Periodic Limb Movements | | |(PLMS Index 2.6) of which 6 were associated with arousals; the | | |PLMS Arousal Index was normal at 0.9. | | | | | |Interpretation: This is a satisfactory PAP and oxygen titration | | |study. | | | | | |1. The patient has obstructive sleep apnea as well as severe | | |obesity related hypoventilation which appears to be controlled | | |with iVAPS: Target Va 4.5, Tgt MS 20; EPAP 11; Max PS 16cm; Min | | |PS 6cm; TiMin 0.8; Rise Time 400; Trigger M, Cycle M with oxygen | | |5 l/min. | | | | | |Suggestions: | | |1. The principles of Sleep Hygiene should be reviewed with the | | |patient. | | |2. iVAPS: Target Va 4.5, Tgt MS 20; EPAP 11; Max PS 16cm; Min PS | | |6cm; TiMin 0.8; Rise Time 400; Trigger M, Cycle M with oxygen 5 | | |l/min is advised. | | | | | |Jermaine Fairchild Jr., MD, [facility] | | |Loading And Unloading Supervisor | | |[facility] | | |[facility] | | |[place] | | |Clinical bone process operator | | |[facility] | | |[place], [place] | | + + + + + | Procedure Note | + + | Jermaine Fairchild Jr., MD - 09/22/2017 10:16 AM PDT [facility] | | Disorders [place], [place] [id number] Airway Pressure | | Titration Report on Aspen Darden performed on September 21, 2017.Clinical Information: | | Aspen Darden is a 47 y.o. female who underwent polysomnographically guided PAP on | | September 21, 2017. The patient has a long-standing history of obstructive sleep apnea as | | well as obesity hypoventilation syndrome. Recently she has been hospitalized in | | [place] with pneumonia and in addition to CPAP requires oxygen 2 L a minute. She is | | brought into the laboratory to present time for repeat positive airway pressure | | titration and oxygen titration.Technical Information: Please see technical data which is | | attached.Definitions (The AASM Manual for the Scoring of Sleep and Associated Events, | | Version 2.4; 2017): Apnea: There is a drop in the peak signal excursion by 90% or | | greater of pre-event baseline using an oronasal thermal sensor (diagnostic study), PAP | | device flow (titration study), or an alternative apnea sensor (diagnostic study); the | | duration of the 90% or greater drop in sensor signal is 10 seconds or longer. | | Obstructive Apnea: Event associated with continued or increased inspiratory effort | | throughout the entire period of absent airflow. Central Apnea: Event associated with | | absent inspiratory effort throughout the entire period of absent airflow. Mixed Apnea: | | Event associated with absent inspiratory effort in the initial portion of the event | | followed by resumption of inspiratory effort during the second portion of the event. | | Hypopnea: The peak signal excursions drop by greater than or equal to 30% of pre-event | | baseline using a recommended or alternative airflow sensor and the duration of the >= | | 30% drop in signal excursion is greater than or equal to 10 seconds and there is a | | greater than or equal to a 4% oxygen desaturation from pre-event baseline. Respiratory | | Event Related Arousal: A sequence of breaths lasting 10 seconds or longer characterized | | by increasing respiratory effort or by flattening of the inspiratory portion of the | | nasal pressure (diagnostic study) or PAP device flow (titration study) waveform leading | | to arousal from sleep when the sequence of breaths does not meet criteria for an apnea | | or hypopnea.Sleep Architecture: Lights out was recorded at 2319 hundred hours on August | | 2017 and lights on was recorded at 0802 hundred hours on September 22, 2017. The latency | | to sleep onset was normal at 12 minutes. The patient slept for 392 minutes out of | | 522.5 minutes of study time resulting an a sleep efficiency that was low at 75 %. The | | amount of N1 sleep was mildly elevated at 11.1 % of the Total Sleep Time; the amount of | | N2 sleep was normal at 64.2 % of the Total Sleep Time; the amount of N3 sleep was normal | | at 10.7 % of the Total Sleep Time; the amount of REM sleep was mildly decreased at 14 | | % of the Total Sleep Time and the latency to REM sleep was mildly prolonged at 158 | | minutes.Sleep was recorded in the following positions: left lateral decubitus 0.5%, | | right lateral decubitus 25.1%, supine 74.4%, prone 0%.Sleep was significantly | | fragmented; the Arousal Index was 32.4.Cardiopulmonary Monitoring: The heart rate | | averaged in the 80s beats per minute. Mild rate variability was noted. The rhythm was | | atrial fibrillation.In the course of the evening the patient started at CPAP of 10 cm | | with oxygen 2 L/minute. This was increased to CPAP of 12 cm because of oxygen | | desaturation as well as end-tidal CO2 levels in the low 60s. At this level of support | | arterial blood gases were obtained which revealed a pH of 7.383, PCO2 62.9, PaO2 69.2. | | Because of hypoventilation the patient was switched to iVAPS therapy. Oxygen was also | | gradually increased to maintain saturations in the 90% range. The patient finished the | | evening on oxygen 5 L/m,Target Va 4.5, Tgt MS 20; EPAP 11; Max PS 16cm; Min PS 6cm; | | TiMin 0.8; Rise Time 400; Trigger M, Cycle M. at this level of support oxygen saturation | | appeared much improved and normal. End-tidal CO2 levels however remained elevated. At | | the end of the study arterial blood gases were repeated which revealed at this level of | | support (at 0758 hours) a PVC O2 of 62.3, PO2 84.2, pH 7.392.Limb Movement Monitoring: | | There were 17 Periodic Limb Movements (PLMS Index 2.6) of which 6 were associated with | | arousals; the PLMS Arousal Index was normal at 0.9.Interpretation: This is a | | satisfactory PAP and oxygen titration study.1. The patient has obstructive sleep apnea | | as well as severe obesity related hypoventilation which appears to be controlled with | | iVAPS: Target Va 4.5, Tgt MS 20; EPAP 11; Max PS 16cm; Min PS 6cm; TiMin 0.8; Rise Time | | 400; Trigger M, Cycle M with oxygen 5 l/min.Suggestions:1. The principles of Sleep | | Hygiene should be reviewed with the patient.2. iVAPS: Target Va 4.5, Tgt MS 20; EPAP 11; | | Max PS 16cm; Min PS 6cm; TiMin 0.8; Rise Time 400; Trigger M, Cycle M with oxygen 5 | | l/min is advised.Jermaine Fairchild Jr., MD, [facility]ITALSMMedical DirectorMercy Emergency Department | | Sleep Disorders CenterProKindred [facility] | | Energy Sales Broker [place] | + + POC Blood Gases (09/22/2017 7:58 AM PDT) + + + + + + | Component | Value | Ref Range | Performed | Pathologist | | | | | At | Signature | + + + + + + | Specimen | Artery | | [facility] | | | Source | | | [facility] | | | | | | [facility] | | | | | | CENTER - | | | | | | LABORATORY | | + + + + + + | pH, POC | 7.392 | 7.3 - 7.45 | [facility] | | | | | | [facility] | | | | | | [facility] | | | | | | CENTER - | | | | | | LABORATORY | | + + + + + + | HCO3, POC | 37.9 (H) | 21.0 - 28.0 | [facility] | | | | | mmol/L | [facility] | | | | | | MEDICAL | | | | | | CENTER - | | | | | | LABORATORY | | + + + + + + | TCO2, POC | 39.8 (H) | 22.0 - 29.0 | [facility] | | | | | mmol/L | [facility] | | | | | | MEDICAL | | | | | | CENTER - | | | | | | LABORATORY | | + + + + + + | Base | 10.6 (H) | -2.0 - 3.0 | [facility] | | | Excess, POC | | mmol/L | [facility] | | | | | | MEDICAL | | | | | | CENTER - | | | | | | LABORATORY | | + + + + + + | Base | 13.0 (H) | -2.0 - 3.0 | [facility] | | | Excess, | | mmol/L | [facility] | | | Extracellul | | | MEDICAL | | | ar fluid, | | | CENTER - | | | POC | | | LABORATORY | | + + + + + + | O2 Sat, POC | 96 | 90 - 100 % | [facility] | | | | | | [facility] | | | | | | MEDICAL | | | | | | CENTER - | | | | | | LABORATORY | | + + + + + + | PCO2, POC | 62.3 (H) | 35.0 - 45 mmHg | [facility] | | | | | | [facility] | | | | | | MEDICAL | | | | | | CENTER - | | | | | | LABORATORY | | + + + + + + | pO2, POC | 84.7 | 60 - 750.0 mmHg | [facility] | | | | | | [facility] | | | | | | MEDICAL | | | | | | CENTER - | | | | | | LABORATORY | | + + + + + + + + | Specimen | + + | | + + + + + + + | Performing | Address | City/State/Zipcode | Phone Number | | Organization | | | | + + + + + | [facility] | [address] | [place] | [phone] | | [facility] | | [address] | | | - LABORATORY | | | | + + + + + POC Blood Gases (09/22/2017 12:45 AM PDT) + + + + + + | Component | Value | Ref Range | Performed | Pathologist | | | | | At | Signature | + + + + + + | Specimen | Artery | | [facility] | | | Source | | | [facility] | | | | | | MEDICAL | | | | | | CENTER - | | | | | | LABORATORY | | + + + + + + | pH, POC | 7.383 | 7.3 - 7.45 | [facility] | | | | | | [facility] | | | | | | MEDICAL | | | | | | CENTER - | | | | | | LABORATORY | | + + + + + + | HCO3, POC | 37.5 (H) | 21.0 - 28.0 | [facility] | | | | | mmol/L | [facility] | | | | | | MEDICAL | | | | | | CENTER - | | | | | | LABORATORY | | + + + + + + | TCO2, POC | 39.4 (H) | 22.0 - 29.0 | [facility] | | | | | mmol/L | [facility] | | | | | | MEDICAL | | | | | | CENTER - | | | | | | LABORATORY | | + + + + + + | Base | 10.1 (H) | -2.0 - 3.0 | [facility] | | | Excess, POC | | mmol/L | [facility] | | | | | | MEDICAL | | | | | | CENTER - | | | | | | LABORATORY | | + + + + + + | Base | 12.4 (H) | -2.0 - 3.0 | [facility] | | | Excess, | | mmol/L | [facility] | | | Extracellul | | | MEDICAL | | | ar fluid, | | | CENTER - | | | POC | | | LABORATORY | | + + + + + + | O2 Sat, POC | 92 | 90 - 100 % | [facility] | | | | | | [facility] | | | | | | MEDICAL | | | | | | CENTER - | | | | | | LABORATORY | | + + + + + + | PCO2, POC | 62.9 (H) | 35.0 - 45 mmHg | [facility] | | | | | | [facility] | | | | | | MEDICAL | | | | | | CENTER - | | | | | | LABORATORY | | + + + + + + | pO2, POC | 69.2 | 60 - 750.0 mmHg | [facility] | | | | | | [facility] | | | | | | MEDICAL | | | | | | CENTER - | | | | | | LABORATORY | | + + + + + + + + | Specimen | + + | | + + + + + + + | Performing | Address | City/State/Zipcode | Phone Number | | Organization | | | | + + + + + | [facility] | [address] | [place] | [phone] | | [facility] | | [address] | | | - LABORATORY | | | | + + + + + documented in this encounter Visit Diagnoses + + | Diagnosis | + + | Obesity hypoventilation syndrome (HCC) Obesity hypoventilation syndrome | + + | ANNABEL (obstructive sleep apnea) Obstructive sleep apnea (adult) (pediatric) | + + documented in this encounter"
--- OUTSIDE RECORDS SUMMARY | ~2019-06-14 | XMS | Encounter Summary ---
Demographics + + + | Address | [address] | | | [place] [address] | + + + | Home Phone [...] | + + +---------+ + | [place] | ECON | Unknown | | + + +---------+ + Care Team Providers + +------+ + | Care Tap Builder Name | Role | Phone | + +------+ + | Bassam Ross DO | PCP | | + +------+ + Encounter Details +--------+ + + + + | Date | Type | Department | Care Team | Description | +--------+ + + + + | 08// | MyChart | Cardiology in | [place] Mclaughlinhan, | RE: Lab work | | 2018 | Encounter | Digestive Health | [address] | | | | | Center at [facility] [address] | [address] [facility] [place] | | | | | [address] | [address] | | | | | Mailcode: Center | [phone] | | | | | for Health and | | | | | | Healing, [address] | | | | | | [facility] [place] | | | | | | [address] | | | | | | [phone] | | | +--------+ + + + [...]
--- OUTSIDE RECORDS SUMMARY | ~2019-06-14 | XMS | Encounter Summary ---
Demographics + + + | Address | [address] | | | [place] [address] | + + + | Home Phone [...] | + + +---------+ + | [place] | ECON | Unknown | | + + +---------+ + Care Team Providers + +------+ + | Care Scalper Operator Name | Role | Phone | + +------+ + | Bassam Ross DO | PCP | | + +------+ + Encounter Details +--------+ + + + + | Date | Type | Department | Care Team | Description | +--------+ + + + + | 01/20/ | Abstract | Cardiology | Juan Antonio Mclaughlin, | | | 2018 | | Preventive at [facility] | MD [address] | | | | | [address] | [place], [place] | | | | | Mailcode: CH9A | [address] | | | | | [facility] | [phone] | | | | | and Healing, | | | | | | [address] | | | | | | [place], [place] | | | | | | [address] | | | | | | [phone] | | | +--------+ + + + [...]
--- OUTSIDE RECORDS SUMMARY | ~2019-06-14 | XMS | Encounter Summary ---
Demographics + + + | Address | [address] | | | [place] [address] | + + + | Home Phone [...] + + + | Author | [facility] | + + + | Organization | [facility] | + + + | [...] | + + +---------+ + | [place] | ECON | Unknown | | + + +---------+ + Care Team Providers + +------+ + | Care Material Stockkeeper Yard Name | Role | Phone | + +------+ + | Bassam Ross DO | PCP | | + +------+ + Encounter Details +--------+ + + + + | Date | Type | Department | Care Team | Description | +--------+ + + + + | 08/22/ | Abstract | Digestive Health | Clinic, Surgery | | | 2016 | | [facility] [address] | | | | | | [address] | | | | | | Mailcode: [place] | | | | | | [facility] and | | | | | | Healing, [address] | | | | | | [place], [place] | | | | | | [address] | | | | | | [phone] | | | +--------+ + + + [...]
--- OUTSIDE RECORDS SUMMARY | ~2019-06-14 | XMS | Encounter Summary ---
Demographics + + + | Address | [address] | | | [place] [address] | + + + | Home Phone [...] | + + +---------+ + | An Carlni | ECON | Unknown | | + + +---------+ + | Miley Aguirre | ECON | Unknown | | + + +---------+ + | [place] | ECON | Unknown | | + + +---------+ + Care Team Providers + +------+ + | Care Doormaker Name | Role | Phone | + +------+ + | Iqra Peralta MD | PCP | | + +------+ + Encounter Details +--------+ + + + + | Date | Type | Department | Care Team | Description | +--------+ + + + + | 09/02/ | MyChart | [facility] | JongShayyna | RE:Question | | 2019 | Encounter | Pain Center at | W, PhD [address] | | | | | [facility] | Ave [place], [place] | | | | | [address] | [address] | | | | | Mailcode: [facility] | [phone] | | | | | [facility] | | | | | | and Healing, | | | | | | Building | | | | | | Floor [place], [place] | | | | | | [address] | | | | | | [phone] | | | +--------+ + + + [...]
--- OUTSIDE RECORDS SUMMARY | ~2019-06-14 | XMS | Encounter Summary ---
Demographics + + + | Address | [address] | | | [place] [address] | + + + | Home Phone | | + + + | Preferred Language | Unknown | + + + | Marital Status | Single | + + + | Yarsanism Affiliation | Unknown | + + + | Race | Unknown | + + + | Ethnic Group | Unknown | + + + Author + + + | Author | [facility] | | | and [place] | + + + | Organization | [facility] | | | and [...] Team Providers + +------+ + | Care Installation Drafter Name | Role | Phone | + [...] Description | +--------+---------+ + + + | 07/16/ | Office | [facility] | Magdiel Stern PA | ANNABEL on CPAP (Primary | | 2016 | Visit | SLEEP DISORDER [address] | [address] | Dx); Morbid | | | | [address] [place] | [place] | obesity, unspecified | | | | [place] [address] | [id number] | obesity type (HCC) | | | | [phone] | | | +--------+---------+ + + + [...] + + + | Blood Pressure | 112/78 | 07/16/2015 3:07 PM | | | | | PST | | + + + + + | Pulse | 81 | 07/16/2015 3:07 PM | | | | | PST | | + + + + + | Temperature | - | - | | + + + + + | Respiratory Rate | 14 | 07/16/2015 3:07 PM | | | | | PST | | + + + + + | Oxygen Saturation | 95% | 07/16/2015 3:07 PM | | | | | PST | | + + + + + | Inhaled Oxygen | - | - | | | Concentration | | | | + + + + + | Weight | 166.2 kg (366 lb 8 | 07/16/2015 3:07 PM | | | | oz) | PST | | + + + + + | Height | - | - | | + + + + + | Body Mass Index | 64.94 | 12/22/2014 9:08 PM | | | | | PDT | | + + + + + documented in this encounter Progress Notes Shira Krause CMA - 07/16/2015 3:21 PM PST 07/16/15 1500 Ernandez Depression Inventory-II Depression Score 2 - Minimal depression Insomnia Severity Index Insomnia Severity Index 10 [place] Sleepiness Scale Sitting and reading 2 Watching TV 3 Sitting, inactive in a public place (e.g. a theatre or a meeting) 1 As a passenger in a car for an hour without a break 3 Lying down to rest in the afternoon when circumstances permit 3 Sitting and talking to someone 1 Sitting quietly after a lunch without alcohol 2 In a car, while stopped for a few minutes in traffic 0 Total score 15 SF-36v2 Score PF 32.66 RP 39.19 BP 42.24 GH 41.3 VT 49.63 SF 52.33 RE 49.2 MH 43.02 PCS 35.88 MCS 53.01 Magdiel Haines PA - 2:43 PM PST Subjective: Patient ID: Aspen Darden is a 44 y.o. female. HPI last office visit was: 07/19/2013 date of polysomnography: 10/20/2011 AHI: 29 RDI: 29.3 O2%: 62% Machine type: ResMed S9 with nasal pillows obtained from: [facility] in [place] pressure: 14-20 cm Median: 14.2 cm 95%: 15.5 cm maxium: 16.7 cm Nights using CPAP: 345/365 % of nights >4 hours: 93% average usage (all nights): 8:44 average usage (nights used): 9:15 AHI: 0.7 Aspen comes in for CPAP compliance. She is doing very well with the ResMed S9. She wears her CPAP nightly for the duration of her sleep. She does not consider sleeping without it. Her only concern is with her pressure range. She is losing weight and wants to make sure sh e is not getting too much pressure. I have discussed the download and results of the paperwork in detail. The download shows t hat her sleep apnea is well controlled, with an AHI of 0.7. It also shows that her leaks ar e well controlled. She has been concerned about her weight and had gastric sleeve surgery in January,. She has lost over 80 pounds and plans to lose 170 more pounds to reach her target weight of 199 pounds. Review of Systems Objective: Physical Exam Assessment: Problem #1: OBSTRUCTIVE SLEEP APNEA (ZOK64-Z79.33) This is well controlled with CPAP. His CPAP compliance is going well. She is in the proce ss of losing weight and may need a lower pressure range before her next appointment. Problem #2: MORBID OBESITY (ICD 10-E66.01) She had gastric sleeve surgery in January,. Plan: 1. She is to continue with CPAP indefinitely. We have faxed a prescription to [facility] in [place] to convert her ResMed S9 to purchase. I have recommended that she touch base with them twice per year to ensure that her equipment is satisfactory. 2. She has a target weight of 199 pounds (currently at 366 pounds). 3. I lowered her pressure range from 14-20 cm to 10-20 cm. We will lower it further if ne cessary. I will follow up again in 2 years, sooner prn. At that time we will reassess with all appr opiate paperwork. Fifteen minutes were spent [id number], with the majority of time spent in counseling. Magdiel Stern PA-C cc: Bassam Ross [...] | Visit | | MD Jac Sousa Gays | | | | | | [place] | | | | | | [place] [address] | | | | | | [phone] | | | | | | | | +--------+---------+ + + + documented as of this encounter Visit Diagnoses + + | Diagnosis | + + | ANNABEL on CPAP - Primary Obstructive sleep apnea (adult) (pediatric) | + + | Morbid obesity, unspecified obesity type (HCC) | + + documented in this encounter"
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
--- OUTSIDE RECORDS SUMMARY | ~2019-06-14 | XMS | Encounter Summary ---
Demographics + + + | Address | [address] | | | [place] [address] | + + + | Home Phone [...] | + + +---------+ + | [place] | ECON | Unknown | | + + +---------+ + Care Team Providers + +------+ + | Care Fish Technologist Name | Role | Phone | [...] + + + + | 09/16/ | Anesthesia | 6A Intra Op 3181 | Oskar Delgado, | | | 2019 | Event | [facility] | [address] | | | | | [facility] | [facility] | | | | | Hospital Admitting | [place], [place] | | | | | Desk Located on the | [address] | | | | | 9th floor | [phone] | | | | | [place], [place] | | | | | | [address] | | | +--------+ + + + + Anesthesia Record + + + + + | Procedure Name | Responsible | Anesthesia Start | Anesthesia Stop Time | | | Anesthesiologist | Time | | + + + + + | RIGHT DISTAL FEMUR | Oskar Delgado MD | 09/16/18 1052 | 09/16/18 1425 | | OPEN REDUCTION | | | | | INTERNAL FIXATION | | | | | (Right Leg) | | | | + + + + + +----+---+ + + | Da | T | Event | Comment | | te | i | | | | | m | | | | | e | | | +----+---+ + + | 04 | 1 | Eq Check | Anesthesia machine checked Equipment verified | | /1 | 0 | | | | 8/ | 2 | | | | 20 | 0 | | | | 19 | | | | +----+---+ + + | | 1 | | | | | 0 | | | | | 3 | | | | | 8 | | | +----+---+ + + | | 1 | Pt. Check | Prior to anesthesia start, pt. Identified, examined, chart | | | 0 | | reviewed, PARQ held, anesthetic plan made or approved by | | | 3 | | attending anesthesiologist. NPO status confirmed as appropriate | | | 8 | | for procedure Preoperative evaluation: unchanged | +----+---+ + + | | 1 | An Start | | | | 0 | | | | | 5 | | | | | 2 | | | +----+---+ + + | | 1 | An Start | | | | 0 | Data | | | | 5 | | | | | 5 | | | +----+---+ + + | | 1 | Vitals | Monitors applied Vital signs checked Patient ready for anesthesia | | | 0 | Checked | | | | 5 | | | | | 5 | | | +----+---+ + + | | 1 | ETT | | | | 1 | | | | | 0 | | | | | 4 | | | +----+---+ + + | | 1 | Ready | | | | 1 | | | | | 1 | | | | | 0 | | | +----+---+ + + | | 1 | Abx | | | | 1 | Administere | | | | 3 | d | | | | 0 | | | +----+---+ + + | | 1 | Timeout | | | | 1 | | | | | 3 | | | | | 9 | | | +----+---+ + + | | 1 | Incision | | | | 1 | | | | | 5 | | | | | 2 | | | +----+---+ + + | | 1 | Surgery end | | | | 4 | | | | | 0 | | | | | 6 | | | +----+---+ + + | | 1 | An Extubate | Neuromuscular function Intact. Pharynx suctioned. Patient obeys | | | 4 | | commands. Adequate pulmonary mechanics. | | | 1 | | | | | 4 | | | +----+---+ + + | | 1 | an stop | | | | 4 | data | | | | 1 | | | | | 4 | | | +----+---+ + + | | 1 | PACU Rpt | | | | 4 | Given | | | | 2 | | | | | 5 | | | +----+---+ + + | | 1 | Anesthesia | | | | 4 | End | | | | 2 | | | | | 5 | | | +----+---+ + + | | 1 | Post-Op | | | | 6 | Page | | | | 1 | | | | | 5 | | | +----+---+ + + +------+ | Meds | +------+ + + + | Name | Total | + + + | fentaNYL | 400 mcg | + + + | lidocaine 2% | 100 mg | + + + | propofol | 200 mg | + + + | ketamine | 50 mg | + + + | rocuronium | 250 mg | + + + | ceFAZolin | 3,000 mg | + + + | succinylcholine | 140 mg | + + + | albuterol inhaler | 8 puff | + + + | labetalol | 20 mg | + + + | ondansetron | 8 mg | + + + | sugammadex | 400 mg | + + + | LR | 1,000 mL | + + + | LR | 0 mL | + + + + + | Name | + + | O2 FR Avance (Total Liters) | + + | Air FR Avance (l/min) | + + | Insp Sevo | + + | Et Sevo | + + + + | No blood administrations on file. | + + +--------+ + + + | Type | Details | Placement | Removal | +--------+ + + + | Incisi | 09/16/18; Right; Anterior, Lower; | 09/16/18 0000 by | | | on | leg | Radha Blakely RN | | +--------+ + + + | Incisi | 09/16/18; Right; Lateral; knee | 09/16/18 0000 by | | | on | | Radha Blakely RN | | +--------+ + + + | Incisi | 09/16/18; Right; Medial; knee | 09/16/18 0000 by | | | on | | Radha Blakely RN | | +--------+ + + + | Urethr | 09/14/18; 0134 (unknown); Other | 09/14/18 0134 by | 09/19/18 0600 by | | al | hospital; 10 mL; 09/19/18; 0600; | Sugey Zhang RN | Vivian Coy RN | | Cathet | Per protocol | | | | er | | | | +--------+ + + + | Periph | 09/15/18; 0951; Estella Griffith RN | 09/15/18 09 by | 09/17/18 0851 by | | eral | VAT; Right; Medial, Distal; | Otto Griffith RN | Kira Lewis RN | | IV | Forearm; 22 g; None; No; | | | | | Positive; 09/17/18; 0851 | | | +--------+ + + + | ETT | 09/16/18; 1104 (created via | 09/16/18 1104 by | 09/16/18 1414 by | | | procedure documentation); 7.5; | Gayla Reyna CRNA | Gayla Reyna CRNA | | | Oral; Cuffed; 09/16/18; 1414 | | | +--------+ + + + | Periph | 09/16/18; 1110; Oskar Delgado MD; | 09/16/18 1110 by | 09/21/18 1030 by | | eral | Left; Dorsal; Hand; 20 g; No; | Gayla Reyna CRNA | Sis Dumont | | IV | None; No; Positive; 09/21/18; | | [place] | | | 1030; Discharge | | | +--------+ + + + [...] | + +--------+ + + + | ANGELA LÓPEZT | Routin | 2018 | | Results for this | | | e | 11:49 AM | | procedure are in the | | | | PDT | | results section. | + +--------+ + + + documented in this encounter Results ANGELA LÓPEZT (2018 11:49 AM PDT) + + + | Narrative | Performed At | + + + | Gayla Reyna CRNA 2018 11:50 AM AIRW[employer] MANAGEMENT - | | | ETT Time of Intubation: 2018 11:04 AM Intubation Reason: For | | | surgical procedure Positioning: Supine and Sniffing OXYGENATION | | | Patient was preoxygenated No apneic oxygenation Grade: Grade 1 - | | | Ventilated by mask Induction:Routine INTUBATION ATTEMPT 1 | | | Blade Type: Maricarmen Blade #: 3 Laryngoscopic View: Grade I | | | Surgical Airway: no Surgical Airway ETT DETAILS ETT | | | Type:Standard, Hi-Lo Cuffed Intubation Type: Oral Cuff Status: | | | Cuffed Size: 7.5 ETT secured with adhesive tape Depth at Lip: 20 | | | cm CONFIRMATION Number of Attempts: 1 Atraumatic Laryngoscopy | | | Positive for EtCO2:Waveform capnography Breath Sounds: Bilateral and | | | equal NARRATIVE Attending physically present Authorized by MIKE, | | | OSKAR Flores Performed by GAYLA REYNA | | + + + documented in this encounter Visit Diagnoses Not on filedocumented in this encounter Administered Medications + +--------+ +---------+------+------+ | Medication Order | MAR | Action | Dose | Rate | Site | | | Action | Date | | | | + +--------+ +---------+------+------+ | albuterol (PROVENTIL, VENTOLIN) | Given | 09/17/19 | 4 puffs | | | | 90 mcg/actuation inhaler | | 19 12:27 | | | | | INTRAPROCEDURE PRN, Starting Park | | PM PDT | | | | | 09/16/18 at 1100, Until Park | | | | | | | 09/16/18 at 1414 | | | | | | + +--------+ +---------+------+------+ +-------+ +---------+---+---+ | Given | 09/17/19 | 4 puffs | | | | | 19 11:00 | | | | | | AM PDT | | | | +-------+ +---------+---+---+ +---+---+ | | | +---+---+ + +-------+ + +---+---+ | ceFAZolin (ANCEF) injection | Given | 09/17/19 | 3,000 mg | | | | intravenous, INTRAPROCEDURE PRN, | | 19 11:30 | | | | | Starting Park 09/16/18 at 1129, | | AM PDT | | | | | Until Park 09/16/18 at 1414 | | | | | | + +-------+ + +---+---+ +---+---+ | | | +---+---+ + +-------+ +---------+---+---+ | fentaNYL (SUBLIMAZE) injection | Given | 09/17/19 | 150 mcg | | | | intravenous, INTRAPROCEDURE PRN, | | 19 2:25 | | | | | Starting Park 09/16/18 at 1100, | | PM PDT | | | | | Until Park 09/16/18 at 1414 | | | | | | + +-------+ +---------+---+---+ +-------+ +---------+---+---+ | Given | 09/17/19 | 100 mcg | | | | | 19 12:19 | | | | | | PM PDT | | | | +-------+ +---------+---+---+ | Given | 09/17/19 | 150 mcg | | | | | 19 11:00 | | | | | | AM PDT | | | | +-------+ +---------+---+---+ +---+---+ | | | +---+---+ + +-------+ +-------+---+---+ | ketamine (KETALAR) injection | Given | 09/17/19 | 50 mg | | | | intravenous, INTRAPROCEDURE PRN, | | 19 11:35 | | | | | Starting Park 09/16/18 at 1135, | | AM PDT | | | | | Until Park 09/16/18 at 1414 | | | | | | + +-------+ +-------+---+---+ +---+---+ | | | +---+---+ + +-------+ +-------+---+---+ | labetalol (TRANDATE) IV | Given | 09/17/19 | 10 mg | | | | injection intravenous, | | 19 1:53 | | | | | INTRAPROCEDURE PRN, Starting Park | | PM PDT | | | | | 09/16/18 at 1347, Until Park | | | | | | | 09/16/18 at 1414 | | | | | | + +-------+ +-------+---+---+ +-------+ +-------+---+---+ | Given | 09/17/19 | 10 mg | | | | | 19 1:47 | | | | | | PM PDT | | | | +-------+ +-------+---+---+ +---+---+ | | | +---+---+ + + + +---+---+---+ | lactated ringers IV | given by | 09/17/19 | | | | | INTRAPROCEDURE CONTINUOUS PRN, | | 19 1:58 | | | | | Starting Park 09/16/18 at 1052, | anesthes | PM PDT | | | | | Until Park 09/16/18 at 1414 | iology | | | | | + + + +---+---+---+ +---------+ +---+---+---+ | New Bag | 09/17/19 | | | | | | 19 10:52 | | | | | | AM PDT | | | | +---------+ +---+---+---+ +---+---+ | | | +---+---+ + +---------+ +---+---+---+ | lactated ringers IV | New Bag | 09/17/19 | | | | | INTRAPROCEDURE CONTINUOUS PRN, | | 19 11:10 | | | | | Starting Park 09/16/18 at 1110, | | AM PDT | | | | | Until Park 09/16/18 at 1414 | | | | | | + +---------+ +---+---+---+ +---+---+ | | | +---+---+ + +-------+ +--------+---+---+ | lidocaine (XYLOCAINE MPF) 2 % | Given | 09/17/19 | 100 mg | | | | (20 mg/mL) injection | | 19 11:02 | | | | | intravenous, INTRAPROCEDURE PRN, | | AM PDT | | | | | Starting Park 09/16/18 at 1102, | | | | | | | Until Park 09/16/18 at 1414 | | | | | | + +-------+ +--------+---+---+ +---+---+ | | | +---+---+ + +-------+ +------+---+---+ | ondansetron (ZOFRAN) injection | Given | 09/17/19 | 8 mg | | | | INTRAPROCEDURE PRN, Starting Park | | 19 2:03 | | | | | 09/16/18 at 1403, Until Park | | PM PDT | | | | | 09/16/18 at 1414 | | | | | | + +-------+ +------+---+---+ +---+---+ | | | +---+---+ + +-------+ +--------+---+---+ | propofol (DIPRIVAN) injection | Given | 09/17/19 | 100 mg | | | | intravenous, INTRAPROCEDURE PRN, | | 19 11:03 | | | | | Starting Park 09/16/18 at 1102, | | AM PDT | | | | | Until Park 09/16/18 at 1414 | | | | | | + +-------+ +--------+---+---+ +-------+ +--------+---+---+ | Given | 09/17/19 | 100 mg | | | | | 19 11:02 | | | | | | AM PDT | | | | +-------+ +--------+---+---+ +---+---+ | | | +---+---+ + +-------+ +--------+---+---+ | rocuronium (ZEMURON) injection | Given | 09/17/19 | 100 mg | | | | intravenous, INTRAPROCEDURE PRN, | | 19 12:10 | | | | | Starting Park 09/16/18 at 1142, | | PM PDT | | | | | Until Park 09/16/18 at 1414 | | | | | | + +-------+ +--------+---+---+ +-------+ +--------+---+---+ | Given | 09/17/19 | 50 mg | | | | | 19 11:42 | | | | | | AM PDT | | | | +-------+ +--------+---+---+ | Given | 20 | 100 mg | | | | | 19 11:08 | | | | | | AM PDT | | | | +-------+ +--------+---+---+ +---+---+ | | | +---+---+ + +-------+ +--------+---+---+ | succinylcholine (ANECTINE) | Given | 09/17/19 | 140 mg | | | | injection INTRAPROCEDURE PRN, | | 19 11:03 | | | | | Starting Park 09/16/18 at 1103, | | AM PDT | | | | | Until Park 09/16/18 at 1414 | | | | | | + +-------+ +--------+---+---+ +---+---+ | | | +---+---+ + +-------+ +--------+---+---+ | sugammadex (BRIDION) IV | Given | 09/17/19 | 400 mg | | | | INTRAPROCEDURE PRN, Starting Park | | 19 2:06 | | | | | 09/16/18 at 1406, Until Park | | PM PDT | | | | | 09/16/18 at 1414 | | | | | | + +-------+ +--------+---+---+ +---+---+ | | | +---+---+ documented in this encounter"
--- OUTSIDE RECORDS SUMMARY | ~2019-06-14 | XMS | Encounter Summary ---
Demographics + + + | Address | [address] | | | [place] [address] | + + + | Home Phone [...] + + + | Author | [facility] | + + + | Organization | [facility] | + + + | [...] | + + +---------+ + | [place] | ECON | Unknown | | + + +---------+ + Care Team Providers + +------+ + | Care Hand Spray Operator Name | Role | Phone | + +------+ + | Iqra Peralta MD | PCP | | + +------+ + Encounter Details +--------+ + + + + | Date | Type | Department | Care Team | Description | +--------+ + + + + | 08/23/ | Pharmacy | Outpatient Retail | | | | 2014 | Visit | [facility] | | | | | | [address] | | | | | | [address] [place], [place] | | | | | | [address] | | | | | | [phone] | | | +--------+ + + + [...]
--- OUTSIDE RECORDS SUMMARY | ~2019-06-14 | XMS | Encounter Summary ---
Demographics + + + | Address | [address] | | | [place] [address] | + + + | Home Phone [...] | + + +---------+ + | Lana [place] | ECON | Unknown | | + + +---------+ + Care Team Providers + +------+ + | Care Power Supply Engineer Name | Role | Phone | + +------+ + | Iqra Peralta MD | PCP | | + +------+ + Encounter Details +--------+ + + + + | Date | Type | Department | Care Team | Description | +--------+ + + + + | 08/27/ | Pharmacy | Outpatient Retail | | | | 2014 | Visit | Clinic [facility]acy | | | | | | [address] | | | | | | [address] [place], [place] | | | | | | [address] | | | | | | [phone] | | | +--------+ + + + [...]
--- OUTSIDE RECORDS SUMMARY | ~2019-06-14 | XMS | Encounter Summary ---
Demographics + + + | Address | [address] | | | [place] [address] | + + + | Home Phone [...] | Author | [facility] | | | and [place] | + + + | Organization | [facility] | | | and [...] Providers + +------+ + | Care Education And Training Coordinator Name | Role | Phone | + +------+ + PCP | Unavailable | + +------+ + Encounter Details +--------+ + + + + | Date | Type | Department | Care Team | Description | +--------+ + + + + | 10/02/ | Hospital | [facility] | | | | 2003 | Encounter | [facility] | | | | | | [address] | | | | | | [place] | | | | | | [address] | | | | | | [phone] | | | +--------+ + + + [...] [place] | | | | | | [id number] | | | | | | | | +--------+---------+ + + + | 01/18/ | Office | Sleep Medicine | Jermaine Fairchild | | | 2019 | Visit | | MD Lars [address] | | | | | | [place] | | | | | | [place] [address] | | | | | | [phone] | | | | | | | | +--------+---------+ + + + documented as of this encounter Visit Diagnoses Not on filedocumented in this encounter"
--- OUTSIDE RECORDS SUMMARY | ~2019-06-14 | XMS | Encounter Summary ---
Demographics + + + | Address | [address] | | | [place] [address] | + + + | Home Phone [...] Team Providers + +------+ + | Care Migratory Game Bird Biologist Name | Role | Phone | + +------+ + | Iqra Peralta MD | PCP | | + +------+ + Encounter Details +--------+ + + + + | Date | Type | Department | Care Team | Description | +--------+ + + + + | 01/08/ | Orders Only | [facility] | Provider, | Proteinuria, | | 2018 | | NEPHROLOGY [address] | [address] | unspecified type | | | | [address] | [address] | (Primary Dx) | | | | [place], [place] | [place] [address] | | | | | [address] | | | | | | [phone] | | | +--------+ + + + [...] documented as of this encounter Progress Notes Mackenzie Saldana RN - 01/08/2018 2:23 PM PDTLabs for nephrology appt on 03/15/18 sent to Nathalie resendez. Renal Ultrasound to be ordered by Dr. Peralta. documented in this en counter Plan of Treatment +--------+---------+ + + + [...] | Visit | | MD [address] | | | | | | [address] [facility] | | | | | | [place] [address] | | | | | | [phone] | | | | | | | | +--------+---------+ + + + documented as of this encounter Visit Diagnoses + + | Diagnosis | + + | Proteinuria, unspecified type - Primary | + + documented in this encounter"
--- OUTSIDE RECORDS SUMMARY | ~2019-06-14 | XMS | Encounter Summary ---
Demographics + + + | Address | [address] | | | [place] [address] | + + + | Home Phone | | + + + | Preferred Language | Unknown | + + + | Marital Status | Single | + + + | Lutheran Affiliation | NRP | + + + [...] Team Providers + +------+ + | Care Print Press Operator Name | Role | Phone | + +------+ + PCP | Unavailable | + +------+ + Encounter Details +--------+ + + + + | Date | Type | Department | Care Team | Description | +--------+ + + + + | 08/14/ | [facility] | [facility] Mamadou Paul MD | | | 1998 | Only | [facility] | [address] | | | | | Risk OB [address] [place], | | | | | [place] | [place] [address] | | | | | Mailcode: [id number] | [phone] | | | | | Outpatient Clinic | | | | | | Building [place], | | | | | | [place] [address] | | | | | | [phone] | | | +--------+ + + + [...] | + +--------+ + + + | ECHOGRAM, PREG | Urgent | 08/14/1998 | | Results for this | | AGE ROUT. | | 6:53 PM | | procedure are in the | | | | PST | | results section. | + +--------+ + + + | DOPPLER OB | Routin | 08/14/1998 | | Results for this | | ADDITIONAL | e | 6:53 PM | | procedure are in the | | | | PST | | results section. | + +--------+ + + + documented in this encounter Results DOPPLER OB ADDITIONAL (08/14/1998 6:53 PM PST) + + + + + + | Component | Value | Ref Range | Performed | Pathologist | | | | | At | Signature | + + + + + + | DOPPLER OB | Radiologist 1: BRADLY, | | | | | ADDITIONAL | Kareen ORTIZ, | | | | | | M.D.-Radiologist 2: | | | | | | VIKTORIA-UDAY TRAVIS | | | | | | M.D.ROUTINE ULTRASOUND | | | | | | FOR AGE AND OB | | | | | | DOPPLER: 08/14/98 at | | | | | | 1853hours. Dictated: | | | | | | 08/15/98 COMPARISON: | | | | | | There are no prior | | | | | | studies available for | | | | | | comparison. HISTORY: | | | | | | This is a 27-year-old, | | | | | | extremely obese female | | | | | | to be evaluatedfor | | | | | | cervical competence and | | | | | | age. TECHNIQUE AND | | | | | | FINDINGS: The | | | | | | transabdominal | | | | | | evaluation was | | | | | | extremelylimited, | | | | | | necessitating | | | | | | transvaginal exam of the | | | | | | fetus and | | | | | | cervix.Evaluation of the | | | | | | uterine arteries was | | | | | | performed with | | | | | | Dopplerultrasound to | | | | | | measure the systolic | | | | | | divided by diastolic | | | | | | ratio. FINDINGS: There | | | | | | is a single | | | | | | intrauterine fetus | | | | | | present in | | | | | | vertexposition. | | | | | | MEASUREMENTS: | | | | | | MEASUREMENT GEST | | | | | | AGE RANGE | | | | | | | | | | | | (cm) | | | | | | (wks) (wks) | | | | | | | | | | | | | | | | | | | | | | | | Biparietal diameter | | | | | | 7.6 30.5 | | | | | | (28.5 - 32.5) | | | | | | Femur length | | | | | | 5.6 | | | | | | 29.5 (27.5 - 31.4) | | | | | | Head circumference | | | | | | 27.8 | | | | | | 30.4 (28.4 - 32.4) | | | | | | Abd. circumference | | | | | | 23.9 | | | | | | 28.2 (26.3 - 30.1) | | | | | | GESTATIONAL AGE: From | | | | | | today's | | | | | | measurements ---- 29.6 | | | | | | wks (29w4d); BRUCE | | | | | | - WEIGHT: | | | | | | From AC & BPD | | | | | | (Bravo) | | | | | | 1350 (1180 - 1530) | | | | | | grams. From AC, BPD, | | | | | | FL (Hadlock)-------- | | | | | | 1320 (1190 - 1450) | | | | | | grams. INDICES: | | | | | | FL/BPD ratio | | | | | | | | | | | | 0.74 (0.71 - 0.87) | | | | | | FL/AC ratio | | | | | | | | | | | | 0.23 (0.20 - 0.24) | | | | | | HC/AC ratio | | | | | | | | | | | | 1.16 (0.97 - 1.17) | | | | | | Cephalic index | | | | | | 0.76 | | | | | | (0.71 - 0.87) | | | | | | ANATOMY:There is | | | | | | heart motion.The | | | | | | placenta is anterior.The | | | | | | amniotic fluid volume | | | | | | is decreased.The | | | | | | following structures | | | | | | were seen and appeared | | | | | | grossly normal:stomach, | | | | | | three vessel cord, | | | | | | bladder, nose and | | | | | | lips.Structures not | | | | | | mentioned are not | | | | | | optimally seen. | | | | | | COMMENTS: There is no | | | | | | evidence for placenta | | | | | | previa. The cervix | | | | | | measures 3.4 cm.S/D | | | | | | ratios in umbilical | | | | | | arteries are 4.29 and | | | | | | 2.41. IMPRESSION: | | | | | | age estimation at 29.6 | | | | | | weeks by anatomic | | | | | | measurements, | | | | | | intechnically limited | | | | | | exam. The majority of | | | | | | the placenta is | | | | | | anterior, however, the | | | | | | borders | | | | | | arepoorly-defined | | | | | | secondary to technical | | | | | | limitations as | | | | | | described. Cervical | | | | | | length of 3.4 cm, which | | | | | | is within normal limits | | | | | | for theestimated | | | | | | gestational age. END | | | | | | OF IMPRESSION: | | | | + [...] | | | + +---------+ + + ECHOGRAM, PREG AGE ROUT. (08/14/1998 6:53 PM PST) + + + + + + | Component | Value | Ref Range | Performed | Pathologist | | | | | At | Signature | + + + + + + | ECHOGRAM, | Radiologist 1: BRADLY, | | | | | PREG | Kareen ORTIZ, | | | | | AGE ROUT. | M.D.-Radiologist 2: | | | | | | VIKTORIA-UDAY TRAVIS, | | | | | | M.D.ROUTINE ULTRASOUND | | | | | | FOR AGE AND OB | | | | | | DOPPLER: 08/14/98 at | | | | | | 1853hours. Dictated: | | | | | | 08/15/98 COMPARISON: | | | | | | There are no prior | | | | | | studies available for | | | | | | comparison. HISTORY: | | | | | | This is a 27-year-old, | | | | | | extremely obese female | | | | | | to be evaluatedfor | | | | | | cervical competence and | | | | | | age. TECHNIQUE AND | | | | | | FINDINGS: The | | | | | | transabdominal | | | | | | evaluation was | | | | | | extremelylimited, | | | | | | necessitating | | | | | | transvaginal exam of the | | | | | | fetus and | | | | | | cervix.Evaluation of the | | | | | | uterine arteries was | | | | | | performed with | | | | | | Dopplerultrasound to | | | | | | measure the systolic | | | | | | divided by diastolic | | | | | | ratio. FINDINGS: There | | | | | | is a single | | | | | | intrauterine fetus | | | | | | present in | | | | | | vertexposition. | | | | | | MEASUREMENTS: | | | | | | MEASUREMENT GEST | | | | | | AGE RANGE | | | | | | | | | | | | (cm) | | | | | | (wks) (wks) | | | | | | | | | | | | | | | | | | | | | | | | Biparietal diameter | | | | | | 7.6 30.5 | | | | | | (28.5 - 32.5) | | | | | | Femur length | | | | | | 5.6 | | | | | | 29.5 (27.5 - 31.4) | | | | | | Head circumference | | | | | | 27.8 | | | | | | 30.4 (28.4 - 32.4) | | | | | | Abd. circumference | | | | | | 23.9 | | | | | | 28.2 (26.3 - 30.1) | | | | | | GESTATIONAL AGE: From | | | | | | today's | | | | | | measurements ---- 29.6 | | | | | | wks ([id number]); BRUCE | | | | | | 10[birth year] WEIGHT: | | | | | | From AC & BPD | | | | | | ([place]ravo) | | | | | | 1350 (1180 - 1530) | | | | | | grams. From AC, BPD, | | | | | | FL ([place])-------- | | | | | | 1320 (1190 - 1450) | | | | | | grams. INDICES: | | | | | | FL/BPD ratio | | | | | | | | | | | | 0.74 (0.71 - 0.87) | | | | | | FL/AC ratio | | | | | | | | | | | | 0.23 (0.20 - 0.24) | | | | | | HC/AC ratio | | | | | | | | | | | | 1.16 (0.97 - 1.17) | | | | | | Cephalic index | | | | | | 0.76 | | | | | | (0.71 - 0.87) | | | | | | ANATOMY:There is | | | | | | heart motion.The | | | | | | placenta is anterior.The | | | | | | amniotic fluid volume | | | | | | is decreased.The | | | | | | following structures | | | | | | were seen and appeared | | | | | | grossly normal:stomach, | | | | | | three vessel cord, | | | | | | bladder, nose and | | | | | | lips.Structures not | | | | | | mentioned are not | | | | | | optimally seen. | | | | | | COMMENTS: There is no | | | | | | evidence for placenta | | | | | | previa. The cervix | | | | | | measures 3.4 cm.S/D | | | | | | ratios in umbilical | | | | | | arteries are 4.29 and | | | | | | 2.41. IMPRESSION: | | | | | | age estimation at 29.6 | | | | | | weeks by anatomic | | | | | | measurements, | | | | | | intechnically limited | | | | | | exam. The majority of | | | | | | the placenta is | | | | | | anterior, however, the | | | | | | borders | | | | | | arepoorly-defined | | | | | | secondary to technical | | | | | | limitations as | | | | | | described. Cervical | | | | | | length of 3.4 cm, which | | | | | | is within normal limits | | | | | | for theestimated | | | | | | gestational age. END | | | | | | OF IMPRESSION: | | | | + [...]
--- OUTSIDE RECORDS SUMMARY | ~2019-06-14 | XMS | Encounter Summary ---
Demographics + + + | Address | [address] | | | [place] [address] | + + + | Home Phone | | + + + | Preferred Language | Unknown | + + + | Marital Status | Single | + + + | Rastafari Affiliation | NRP | + + + [...] Team Providers + +------+ + | Care Honest John Rocket Crew Member Name | Role | Phone | [...] | | | | | | [address] | | | | | | | [address] | | | | | | | Mailcode: | | | | | | | [facility] | | | | | | | Health and | | | | | | | Healing, | | | | | | | Building [address] | | | | | | | [place], [place] | | | | | | | [address] | | | | | | | Phone: | | | | | | | [phone] | | | | | | | Fax: | | | | | | | [phone] | +--------+--------+ + + + + Encounter Details +--------+---------+ + + + | Date | Type | Department | Care Team | Description | +--------+---------+ + + + | 02/24/ | Office | Digestive Health | Mihaela Villa, | S/P laparoscopic | | 2016 | Visit | [facility] [address] | sleeve gastrectomy | | | | [address] | [address] | (Primary Dx) | | | | Mailcode: Center | [place], [place] | | | | | for Health and | [address] | | | | | [facility], [facility] 2 | | | | | | [place], [place] | | | | | | [address] | | | | | | [phone] | | | +--------+---------+ + + + [...] + + + + | Weight | 174.3 kg (384 lb 4.8 | 02/25/2016 2:04 PM | | | | oz) | PDT | | + + + + + | Height | - | - | | + + + + + | Body Mass Index | 68.08 | 11/14/2015 1:24 PM | | | | | PDT | | + + + + + documented in this encounter Progress Notes Mihaela Villa RD - 02/25/2016 2:04 PM PDTFormatting of this note might be different fro m the original. Nutrition Counseling: Post-op Bariatric Surgery Follow-Up Patient referred by: DO Jamie [place] [id number] Documented time of visit: 2:00 to 25 (25 minutes [id number] with patient) Surgery: Sleeve Gastrectomy Date of Surgery: 02/07/15 Subjective: Pt is retaining lots of fluids. Had an infection in her leg, is on lasix (80 mg ). 2 week ago weighed 396 lbs at MDs office. Any reported changes: None Tolerating Bariatric Diet: No Current Physical Activity: Water aerobics 3x/wk-60 (had to put it on pause with open wound on leg). Changes in Diabetes Medications since surgery: no Testing blood glucose: no Objective: Ht Readings from Last 1 Encounters: 11/14/15 1.6 m (5' 3") Wt Readings from Last 2 Encounters: 02/25/16 174.317 kg (384 lb 4.8 oz) 11/14/15 166.289 kg (366 lb 9.6 oz) 08/08/15 162.433 kg (358 lb 1.6 oz) 06/26/15 163.885 kg (361 lb 4.8 oz) 03/08/15 174.091 kg (383 lb 12.8 oz) 01/22/15 188.696 kg (416 lb) Day of surgery ~414# Body mass index is 68.09 kg/(m^2). Weight change since surgery: lost a total of 56 lbs, gained back 26 lbs PMHx: Past Medical History Diagnosis Date Essential [...] echo and chest xray findings. 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 Poor intravenous access Liver enlargement 01/2015 intraop Food logs: No Food choices: B: Oikos triple zero L: Chicken deli meat 2-3 slices + cheese 2 string + cottage cheese 1/2 cup S: fruit-1/2 cup D: Piece of meat + tomatoes, cucumbers (from garden), trys to avoid potatoes Fluid choices: water + 2 cups coffee, iced tea- with lemon Supplementation: Citracal petites 2 per day, B12, Multivitamin w/iron 1 per day, vitamin D, biotin Assessment: Pt is following dietary recommendations. She should be increasing her physical activity on non-water aerobics day. She is struggling with fluid retention that is affecting her weight. She continues to attend support group, marco umana. Following Bariatric Diet Protocol: Yes Meeting protein goals: No Meeting fluid goals: No Fluids from meals: Yes Plan: Increase MVI to meet 200% daily value, increase Citracal to 2 tablets TID Reviewed nutrition goals after bariatric surgery. Aim [...] to increase physical activity. Follow up in [address],[place] Pager# [phone] Phone: [phone] documented in this en counter Plan of Treatment Not on filedocumented as of this encounter Procedures + +--------+ + + + | Procedure Name | Priori | Date/Time | Associated Diagnosis | Comments | | | ty | | | | + +--------+ + + + | NC MNT RE-ASSESSMNT | Routin | 02/25/2016 | S/P laparoscopic | | | X15MIN | e | 2:27 PM | sleeve gastrectomy | | | | | PDT | | | + +--------+ + + + documented in this encounter Visit Diagnoses + + | Diagnosis | + + | S/P laparoscopic sleeve gastrectomy - Primary | + + documented in this encounter
--- OUTSIDE RECORDS SUMMARY | ~2019-06-14 | XMS | Encounter Summary ---
Demographics + + + | Address | [address] | | | [place] [address] | + + + | Home Phone [...] + + | Author | [facility] | + + + | Organization | [facility] | + + + | [...] | + + +---------+ + | Lana [place] | ECON | Unknown | | + + +---------+ + Care Team Providers + +------+ + | Care Career Manager Name | Role | Phone | + +------+ + | Bassam Ross DO | PCP | | + +------+ + Encounter Details +--------+ + + + + | Date | Type | Department | Care Team | Description | +--------+ + + + + | 11/08/ | MyChart | Digestive Health | Thania Cardenas, | re Labs | | 2014 | Encounter | [facility] at [facility] [address] | AC[address] | | | | | [address] | [place], [place] | | | | | Mailcode: [place] | [address] | | | | | for Health and | | | | | | [facility] | | | | | | [place], [place] | | | | | | [address] | | | | | | | [...]
--- OUTSIDE RECORDS SUMMARY | ~2019-06-14 | XMS | Encounter Summary ---
[...] | + + +---------+ + | Lana [place] | ECON | Unknown | | + + +---------+ + Care Team Providers + +------+ + | Care Internal Wholesaler Name | Role | Phone | + +------+ + | Bassam Ross DO | PCP | | + +------+ + Encounter Details +--------+ + + + + | Date | Type | Department | Care Team | Description | +--------+ + + + + | 06/23/ | Abstract | Digestive Health | Tilgner, Thania F, | | | 2013 | | Center at [facility] [address] | [address] | | | | | [address] | [place], [place] | | | | | Mailcode: [place] | [address] | | | | | for Health and | | | | | | [facility] 2 | | | | | | [place], [place] | | | | | | [address] | | | | | | | [...]
--- OUTSIDE RECORDS SUMMARY | ~2019-06-14 | XMS | Encounter Summary ---
Demographics + + + | Address | [address] | | | [place] [address] | + + + | Home Phone [...] | + + +---------+ + | Lana [place] | ECON | Unknown | | + + +---------+ + Care Team Providers + +------+ + | Care Medical Art Therapist Name | Role | Phone | + +------+ + | Iqra Peralta MD | PCP | | + +------+ + Reason for Visit +--------+ + | Reason | Comments | +--------+ + | Pain | | +--------+ + Encounter Details +--------+ + + + + | Date | Type | Department | Care Team | Description | +--------+ + + + + | 12/03/ | Telephone | Digestive Health | Thania Cardenas, | Pain | | 2016 | | Center at [facility] [address] | AC[address] | | | | | [address] | [place], [place] | | | | | Mailcode: [place] | [address] | | | | | [facility] and | [phone] | | | | | [place] [address] | | | | | | [place], [place] | | | | | | [address] | | | | | | [phone] | | | +--------+ + + + [...]
--- OUTSIDE RECORDS SUMMARY | ~2019-06-14 | XMS | Encounter Summary ---
Demographics + + + | Address | [address] | | | [place] [address] | + + + | Home Phone | | + + + | Preferred Language | Unknown | + + + | Marital Status | Single | + + + | Judaism Affiliation | NRP | + + + [...] | + + +---------+ + | Lana [place] | ECON | Unknown | | + + +---------+ + Care Team Providers + +------+ + | Care Shale Planer Operator Helper Name | Role | Phone | + +------+ + | Bassam Ross DO | PCP | | + +------+ + Encounter Details +--------+ + + + + | Date | Type | Department | Care Team | Description | +--------+ + + + + | 02/09/ | Telephone | Digestive Health | Dori Reed, | | | 2014 | | [place] at [facility] [address] | | | | | | [address] | | | | | | Mailcode: [place] | | | | | | for Health and | | | | | | [facility], [place] [address] | | | | | | [place], [place] | | | | | | [address] | | | | | | [phone] | | | +--------+ + + + [...]
--- OUTSIDE RECORDS SUMMARY | ~2019-06-14 | XMS | Encounter Summary ---
Demographics + + + | Address | [address] | | | [place] [address] | + + + | Home Phone | | + + + | Preferred Language | Unknown | + + + | Marital Status | Single | + + + | Congregational Affiliation | NRP | + + + [...] | + + +---------+ + | Lana [place] | ECON | Unknown | | + + +---------+ + Care Team Providers + +------+ + | Care English Professor Name | Role | Phone | + +------+ + | Bassam Ross DO | PCP | | + +------+ + Reason for Referral Consult to [place] (Routine) +--------+--------+ + + + + | Status | Reason | Specialty | Diagnoses / | Referred By | Referred To | | | | | Procedures | Contact | Contact | +--------+--------+ + + + + | Closed | | Surgery | Diagnoses | Lopes, | Bar | | | | | Morbid | Raffi Soria MD | [facility] | | | | | obesity | [address] | [address] | | | | | (HCC) | [address] | [address] | | | | | Procedures | [place] | Mailcode: | | | | | REQUEST TO | [place], [place] | [facility] | | | | | SURGERY | [address] | Health and | | | | | TRANSPORTATION EQUIPMENT PAINTER | Phone: | Healing, | | | | | | [phone] | Building [address] | | | | | | Fax: | [place], [place] | | | | | | [phone] | [address] | | | | | | | Phone: | | | | | | | [phone] | | | | | | | Fax: | | | | | | | [phone] | +--------+--------+ + + + + Reason for Visit + + + | Reason | Comments | + + + | Pre-Admission | | + + + Encounter Details +--------+ + + + + | Date | Type | Department | Care Team | Description | +--------+ + + + + | 08/14/ | PreAdmit | Digestive Health | Raffi Lopes, | Pre-Admission | | 2015 | Orders | [place] at [facility] [address] | [address] | | | | | [address] | [facility] | | | | | Mailcode: [place] | [place], [place] | | | | | [facility] and | [address] | | | | | [place] [address] | [phone] | | | | | [place], [place] | | | | | | [address] | | | | | | [phone] | | | +--------+ + + + [...] as of this encounter Plan of Treatment + +------+--------+ + + | Name | Type | Priori | Associated Diagnoses | Order Schedule | | | | ty | | | + +------+--------+ + + | 12 LEAD ECG | ECG | Routin | Morbid obesity | Expected: 08/14/2014 | | | | e | (HCC) | | + +------+--------+ + + documented as of this encounter Visit Diagnoses + + | Diagnosis | + + | Morbid obesity (HCC) - Primary Morbid obesity | + + documented in this encounter"
--- OUTSIDE RECORDS SUMMARY | ~2019-06-14 | XMS | Encounter Summary ---
Demographics + + + | Address | [address] | | | [place] [address] | + + + | Home Phone | | + + + | Preferred Language | Unknown | + + + | Marital Status | Single | + + + | Mosque Affiliation | Unknown | + + + | Race | Unknown | + + + | Ethnic Group | Unknown | + + + Author + + + | Author | [facility] | | | and [place] | + + + | Organization | [facility] | | | [...] Providers + +------+ + | Care Machine Stripper Cutter Name | Role | Phone | + +------+ + PCP | Unavailable | + +------+ + Encounter Details +--------+ + + + + | Date | Type | Department | Care Team | Description | +--------+ + + + + | 10/24/ | Hospital | [facility] | | | | 2003 | Encounter | MED CTR LABORATORY | | | | | | [address] | | | | | | [place] | | | | | | [address] | | | | | | [phone] | | | +--------+ + + + [...] [place] | | | | | | [address] | | | | | | | | +--------+---------+ + + + | 01/18/ | Office | Sleep Medicine | Jermaine Fairchild | | | 2019 | Visit | | MD Lars [address] | | | | | | [address] | | | | | | [place] [address] | | | | | | [phone] | | | | | | | | +--------+---------+ + + + documented as of this encounter Visit Diagnoses Not on filedocumented in this encounter"
--- OUTSIDE RECORDS SUMMARY | ~2019-06-14 | XMS | Encounter Summary ---
Demographics + + + | Address | [address] | | | [place] [address] | + + + | Home Phone [...] + + + | Author | [facility] | + + + | Organization | [facility] | + + + | [...] | + + +---------+ + | Lana [place] | ECON | Unknown | | + + +---------+ + Care Team Providers + +------+ + | Care Mica Plate Layer Name | Role | Phone | + +------+ + | Bassam Ross DO | PCP | | + +------+ + Encounter Details +--------+------+ + + + | Date | Type | Department | Care Team | Description | +--------+------+ + + + | 06/26/ | Lab | Laboratory at [facility] | | S/P laparoscopic | | 2015 | | [address] | | sleeve gastrectomy | | | | [place], [place] | | | | | | [address] | | | | | | [phone] | | | +--------+------+ + + + [...] | CBC (HEMOGRAM) ONLY | Routin | 06/26/2015 | S/P laparoscopic | Results for this | | | e | 11:38 AM | sleeve gastrectomy | procedure are in the | | | | PST | | results section. | + +--------+ + + + | VITAMIN D, | Routin | 06/26/2015 | S/P laparoscopic | Results for this | | 25-HYDROXY, SERUM | e | 11:38 AM | sleeve gastrectomy | procedure are in the | | | | PST | | results section. | + +--------+ + + + | COMPLETE METABOLIC | Routin | 06/26/2015 | S/P laparoscopic | Results for this | | SET | e | 11:38 AM | sleeve gastrectomy | procedure are in the | | (NA,K,CL,CO2,BUN,CRE | | PST | | results section. | | AT,GLUC,CA,AST,ALT,B | | | | | | JAYCEE TOTAL,ALK | | | | | | PHOS,ALB,PROT TOTAL) | | | | | + +--------+ + + + | CBC ONLY | Routin | 06/26/2015 | S/P laparoscopic | Results for this | | | e | 11:38 AM | sleeve gastrectomy | procedure are in the | | | | PST | | results section. | + +--------+ + + + | FERRITIN | Routin | 06/26/2015 | S/P laparoscopic | Results for this | | | e | 11:38 AM | sleeve gastrectomy | procedure are in the | | | | PST | | results section. | + +--------+ + + + | PTH, SERUM | Routin | 06/26/2015 | S/P laparoscopic | Results for this | | | e | 11:38 AM | sleeve gastrectomy | procedure are in the | | | | PST | | results section. | + +--------+ + + + | TSH | Routin | 06/26/2015 | S/P laparoscopic | Results for this | | | e | 11:38 AM | sleeve gastrectomy | procedure are in the | | | | PST | | results section. | + +--------+ + + + | VITAMIN B-12 | Routin | 06/26/2015 | S/P laparoscopic | Results for this | | | e | 11:38 AM | sleeve gastrectomy | procedure are in the | | | | PST | | results section. | + +--------+ + + + | HEMOGLOBIN A1C, | Routin | 06/26/2015 | S/P laparoscopic | Results for this | | BLOOD | e | 11:38 AM | sleeve gastrectomy | procedure are in the | | | | PST | | results section. | + +--------+ + + + documented in this encounter Results CBC (HEMOGRAM) ONLY (06/26/2015 11:38 AM PST) + + + + + + | Component | Value | Ref Range | Performed | Pathologist | | | | | At | Signature | + + + + + + | WHITE CELL | 11.13 (H) | 4.40 - 11.00 | [facility] | | | COUNT | | K/cu mm | LABORATORY | | | | | | SERVICES, | | | | | | [facility] + | | | | | | [facility]ALING | | + + + + + + | RED CELL | 5.04 | 4.00 - 5.20 | [facility] | [...] + + + + | HEMATOCRIT | 47.6 (H) | 36.0 - 46.0 % | [facility] | | | | | | LABORATORY | | | | | | SERVICES, | | | | | | [facility] | | [facility] + | | | | | | HEALING | | + + + + + + | MCV | 94.4 | 80.0 - 96.0 fL | [facility] | | | | | | LABORATORY | | | | | | SERVICES, | | | | | | [facility] | [facility] + | | | | | | HEALING | | + + + + + + | MCHC | 33.8 | 33.0 - 35.5 | [facility] | | | | | g/dL | LABORATORY | | | | | | SERVICES, | | | | | | [facility] | [facility] + | | | | | | HEALING | | + + + + + + | RDW SD | 48.5 (H) | 35.1 - 46.3 fL | [facility] | | | | | | LABORATORY | | | | | | SERVICES, | | | | | | [facility] | [facility] | | [facility] + | | | | | | HEALING | | + + + + + + | PLATELET | 304 | 150 - 400 K/cu | [facility] [...] + + + | [facility] | [address] | [place] [address] | | | SERVICES, [facility] | | | | | HEALTH + HEALING | | | | + + + + + TSH (06/26/2015 11:38 AM PST) + +-------+ [...] | + + + + + | [facility] | [address] | [place] [address] | | | MIR CHAPIN | NANCY [...] (H)Comment: Hbg A1c | <5.7 % | [facility] | | | A1C | Interpretive | [...] + | [facility] | [address] | [place] [address] | | | SERVICES, SPECIAL | NANCY [...] + + | [facility] | [address] | [place] [address] | | | SERVICES, CORE | PARK [...] LABORATORY | [address] | [place] [address] | | | SERVICES, CORE | PARK [...] | + + + + + | [facility] | [address] | [place] [address] | | | SERVICES, SPECIAL | NANCY [...] + | [facility] | [address] | [place] [address] | | | SERVICES, MIR | NANCY [...] | | | LABORATORY | | | SYRIAN | | | SERVICES, | | | [...] | + + + + + | [facility] | [address] | [place] [address] | | | SERVICES, CORE | [address] | | | + + + + + documented in this encounter Visit Diagnoses + + | Diagnosis | + + | S/P laparoscopic sleeve gastrectomy | + + documented in this encounter"
--- OUTSIDE RECORDS SUMMARY | ~2019-06-14 | XMS | Encounter Summary ---
Demographics + + + | Address | [address] | | | [place] [address] | + + + | Home Phone [...] | + + +---------+ + | Lana [place] | ECON | Unknown | | + + +---------+ + Care Team Providers + +------+ + | Care Account Retention Representative Name | Role | Phone | + +------+ + | Bassam Ross DO | PCP | | + +------+ + Reason for Visit + + + | Reason | Comments | + + + | Test Results | outside test results | + + + Encounter Details +--------+ + + + + | Date | Type | Department | Care Team | Description | +--------+ + + + + | 11/18/ | MyChart | Cardiology | Sheila Loya | RE: appointment | | 2013 | Encounter | Preventive at [facility] | [address]UL[address]A [address] | tests | | | | [address] | [address] [place], | | | | | Mailcode: [facility] | [place] [address] | | | | | [facility] | [phone] | | | | | and [place], | | | | | | [address] | | | | | | [place], [place] | | | | | | [address] | | | | | | [phone] | | | +--------+ + + + [...]
--- OUTSIDE RECORDS SUMMARY | ~2019-06-14 | XMS | Encounter Summary ---
Demographics + + + | Address | [address] | | | [place] [address] | + + + | Home Phone [...] Providers + +------+ + | Care Senior Manufacturing Supervisor Name | Role | Phone | + +------+ + | Iqra Peralta MD | PCP | | + +------+ + Encounter Details +--------+ + + + + | Date | Type | Department | Care Team | Description | +--------+ + + + + | 03/28/ | Abstract | Digestive Health | Clinic, Surgery | | | 2019 | | [place] [facility] [place] [address] | | | | | | [address] | | | | | | Mailcode: [place] | | | | | | for Health and | | | | | | [facility], [facility] 2 | | | | | | [place], [place] | | | | | | [address] | | | | | | [phone] | | | +--------+ + + + [...]
--- OUTSIDE RECORDS SUMMARY | ~2019-06-14 | XMS | Encounter Summary ---
Demographics + + + | Address | [address] | | | [place] [address] | + + + | Home Phone [...] | + + +---------+ + | Lana [place] | ECON | Unknown | | + + +---------+ + Care Team Providers + +------+ + | Care Housing Liaison Name | Role | Phone | + [...] | | | | | Morbid | Thania Mckenzie, RENETTA | Sheila Figueroa, | | | | | obesity | [address] | PA-C [address] | | | | | (HCC) | [address] | [address] | | | | | Procedures | [place], [place] | [place], [place] | | | | | CONSULT TO | [address] | [address] | | | | | CARDIOLOGY | Phone: | Phone: | | | | | | [phone] | [phone] | | | | | | Fax: | Fax: | | | | | | [phone] | [phone] | +--------+--------+ + + + + Encounter Details +--------+ + + + + | Date | Type | Department | Care Team | Description | +--------+ + + + + | 07/26/ | Drafter Landscape | Digestive Health | Thania Cardenas, | Morbid obesity (HCC) | | 2014 | | [place] at [facility] [address] | ACNP [address] | (Primary Dx) | | | | [address] | [place], [place] | | | | | Mailcode: [place] | [address] | | | | | [facility] Health and | | | | | | [facility] [place] [address] | | | | | | [facility] [place] | | | | | | [address] | | | | | | | [...]
--- OUTSIDE RECORDS SUMMARY | ~2019-06-14 | XMS | Encounter Summary ---
Demographics + + + | Address | [address] | | | [place] [address] | + + + | Home Phone | | + + + | Preferred Language | Unknown | + + + | Marital Status | Single | + + + | Confucianism Affiliation | Unknown | + + + | Race | Unknown | + + + | Ethnic Group | Unknown | + + + Author + + + | Author | [facility] | | | and [place] | + + + | Organization | [facility] | | | [...] Providers + +------+ + | Care Medical Records Administrator Name | Role | Phone | [...] Telephone | [facility] [place] | Lexii Chris, | Other | | 2017 | | PULMONARY [address] | Convalescent Sitter | | | | | [place], | | | | | | [place] [address] | | | | | | [phone] | | | +--------+ + + + [...] 2019 | Visit | | [address] | | | | | | [place] | | | | | | [address] | | | | | | | | +--------+---------+ + + + | 01/18/ | Office | Sleep Medicine | Jermaine Fairchild | | | 2019 | Visit | | MD Lars [address] | | | | | | [address] | | | | | | [place] [address] | | | | | | [phone] | | | | | | | | +--------+---------+ + + + documented as of this encounter Visit Diagnoses Not on filedocumented in this encounter"
--- OUTSIDE RECORDS SUMMARY | ~2019-06-14 | XMS | Encounter Summary ---
Demographics + + + | Address | [address] | | | [place] [address] | + + + | Home Phone [...] | + + +---------+ + | Lana [place] | ECON | Unknown | | + + +---------+ + Care Team Providers + +------+ + | Care Supervisory Training Specialist Name | Role | Phone | + +------+ + | Bassam Ross DO | PCP | | + +------+ + Encounter Details +--------+ + + + + | Date | Type | Department | Care Team | Description | +--------+ + + + + | 01/06/ | Telephone | Digestive Health | Traci Do, | | | 2015 | | Center at [facility] [address] | MARGIN ANALYST [address] | | | | | [address] | [facility] [address] | | | | | Mailcode: Center | [place], [place] | | | | | for Health and | [address] | | | | | [place] [address] | [phone] | | | | | [place], [place] | | | | | | [address] | | | | | | [phone] | | | +--------+ + + + [...]
--- OUTSIDE RECORDS SUMMARY | ~2019-06-14 | XMS | Encounter Summary ---
Demographics + + + | Address | [address] | | | [place] [address] | + + + | Home Phone [...] + | Author | [facility] | | | and [place] | + + + | Organization | [facility] | | | and [...] Team Providers + +------+ + | Care Mental Health Case Manager Name | Role | Phone | + +------+ + | Bassam Ross DO | PCP | | + +------+ + Reason for Visit +--------+ + | Reason | Comments | +--------+ + | Apnea | | +--------+ + Encounter Details +--------+---------+ + + + | Date | Type | Department | Care Team | Description | +--------+---------+ + + + | 07/19/ | Office | [facility] | Magdiel Stern PA | ANNABEL on CPAP (Primary | | 2013 | Visit | SLEEP DISORDER 401 | [address] | Dx); Morbid obesity | | | | [address] | [place] | ([facility]) | | | | [place] [address] | [address] | | | | | [phone] | | | +--------+---------+ + + + [...] + | Blood Pressure | 134/80 | 07/19/2013 1:07 PM | | | | | PST | | + + + + + | Pulse | 80 | 07/19/2013 1:07 PM | | | | | PST | | + + + + + | Temperature | - | - | | + + + + + | Respiratory Rate | 18 | 07/19/2013 1:07 PM | | | | | PST | | + + + + + | Oxygen Saturation | 91% | 07/19/2013 1:07 PM | | | | | PST | | + + + + + | Inhaled Oxygen | - | - | | | Concentration | | | | + + + + + | Weight | 199.3 kg (439 lb 4.8 | 07/19/2013 1:07 PM | | | | oz) | PST | | + + + + + | Height | - | - | | + + + + + | Body Mass Index | 80.35 | 10/02/2011 12:00 AM | | | | | PDT | | + + + + + documented in this encounter Progress Notes Magdiel Stern PA - 07/19/2013 1:10 PM PST Subjective: Patient ID: Aspen Darden is a 42 y.o. female. HPI last office visit was: 05/12/2013 date of polysomnography: 10/20/2011 AHI: 29 RDI: 29.3 O2%: 62% Machine type: ResMed S9 with nasal pillows obtained from: [facility] in [place] pressure: 14-20 cm 95%: 14.9 cm maxium: 16.0 cm Nights using CPAP: average usage (all nights): 11:14 average usage (nights used): 11:37 AHI: 0.8 Aspen comes in for CPAP compliance. She is doing very well with the ResMed S9. She feels that she is sleeping better and more comfortably. She is excited to continue with it. Her only question about the S9 is regarding the settings. She is more comfortable with air that is cooler and more dry. She is unsure how to adjust the settings. We went through each of the settings on the CPAP, to ensure that there is a good understand ing of how to make changes to temperature, humidity and/or the ramp. I lowered her temperat ure from 72 degrees to 65 degrees because she prefers cool air. I also lowered her humidity from 2.5 to 2.0 because she used to having lower humidity. She is now comfortable making a djustments to the settings, if necessary. I have discussed the download in detail. This shows that his sleep apnea is well controlle d, with an AHI of 0.8. It also shows that his leaks are well controlled. It shows that she is wearing her CPAP >4 hours for 96% of the nights during the last 32 nights. She is also interested in having gastric bypass surgery. She weighs 439 pounds and is conc erned about her health. At an appointment in 2008, she weighed 202 pounds. She has gained weight consistently since that visit. She has significant apnea with an AHI of 29 and oxyge n desaturation to 62% as tested in 2011. Review of Systems Objective: Physical Exam Assessment: Problem #1: OBSTRUCTIVE SLEEP APNEA (327.23) This is well controlled with CPAP. His CPAP compliance is going well. It shows that she i s wearing her CPAP >4 hours for 96% of the nights during the last 32 nights. Problem #2: MORBID OBESITY (278.01) She continues to gain weight and is unable to lose weight. Plan: 1. She is to continue with CPAP indefinitely. We have faxed a prescription to [facility] [place] to convert her ResMed S9 to purchase. I have recommended that she touch base with them twice per year to ensure that her equipment is satisfactory. 2. She is working toward having gastric bypass surgery. I will follow up again in 2 years, sooner prn. At that time we will reassess with all appr opiate paperwork. Thirty minutes were spent [id number], with the majority of time spent i n counseling. Magdiel Stern PA-C cc: Dr. Bassam Ross documented in this enco unter Plan of Treatment +--------+---------+ + + + | Date | Type | Specialty | Care Team | Description | +--------+---------+ + + + | 06/14/ | Office | Pulmonology | Adolfo Zazueta, | | | 2019 | Visit | | MD Jac JOHNSON | | | | | | [place] | | | | | | [phone] | | | | | | | | +--------+---------+ + + + | 01/18/ | Office | Sleep Medicine | Jermaine Fairchild | | | 2019 | Visit | | MD Lars [address] | | | | | | [facility] | | | | | | [place] [address] | | | | | | [phone] | | | | | | | | +--------+---------+ + + + documented as of this encounter Visit Diagnoses + + | Diagnosis | + + | ANNABEL on CPAP - Primary Obstructive sleep apnea (adult) (pediatric) | + + | Morbid obesity (HCC) Morbid obesity | + + documented in this encounter"
--- OUTSIDE RECORDS SUMMARY | ~2019-06-14 | XMS | Encounter Summary ---
Demographics + + + | Address | [address] | | | [place] [address] | + + + | Home Phone [...] + + + | Author | [facility] | | | and [place] | + + + | Organization | [facility] | | | [...] Team Providers + +------+ + | Care Brine Plant Operator Name | Role | Phone | + +------+ + | Bassam Ross DO | PCP | | + +------+ + Encounter Details +--------+ + + + + | Date | Type | Department | Care Team | Description | +--------+ + + + + | 05/11/ | [facility] | [facility] | Jermaine Fairchild | | | 2012 | Encounter | MED CTR SLEEP | MD Lars [address] | | | | | MIR[place] [address] | [place] | | | | | [place] | [place] [address] | | | | | [address] | [phone] | | | | | [phone] | | | +--------+ + + + [...] | | | | | [place] [address] | | | | | | [phone] | | | | | | | | +--------+---------+ + + + documented as of this encounter Visit Diagnoses Not on filedocumented in this encounter"
--- OUTSIDE RECORDS SUMMARY | ~2019-06-14 | XMS | Encounter Summary ---
Demographics + + + | Address | [address] | | | [place] [address] | + + + | Home Phone [...] | + + +---------+ + | [place] | ECON | Unknown | | + + +---------+ + Care Team Providers + +------+ + | Care Wind Field Service Manager Name | Role | Phone [...] + + + + | 02/07/ | Hospital | [facility] [address] | Dori Fajardo, | | | 2014 - | Encounter | [address] | | | | | | [place], [place] | | | | 02/08/ | | [address] | | | | 2014 | | [phone] | | | +--------+ + + + [...] Shane ACNP - 02/08/2015 9:20 AM PDT [facility] INPATIENT DISCHARGE SUMMARY Author: RENETTA HERNANDEZ [...] We will have her follow up w ith Bariatric Nurse Practitioner in 1 week, her [...] are available over the counter at most [facility] stores. Nausea/Vomiting/Difficulty Swallowing Nausea/Vomiting/Difficulty swallowing: Could [...] hours per your instructions. Some medications, like [place], have Tylenol in it. Make sure you [...] (PCP) as this clinic does not provide [facility] chronic pain management services. When to Call [...] hours by calling the surgery office at [phone]. - After hours, weekends and holidays, you may call the hospital hydrotreater operator at [phone] an d have the diamond grader Red Surgery Team paged. Destination Home Condition [...] Follow up with [facility]. Go in 1 week. Specialty: Surgery Why: 1 week Post Op Visit with Nurse Practitioner Contact information [address] Mailcode: [address] [address] Follow up with DORI FAJARDO MD. Go in 4 weeks. Specialty: General Surgery Why: 4 week Post Op Visit Contact information [address] [facility] [address] Follow up with BASSAM ROSS DO. Schedule an appointment as soon as possible for a visit in 2 weeks. Specialty: Family Medicine Why: Follow up recent bariatric surgery, follow up chronic conditions and home medication management Contact information [address] [facility] [place] [address] Future Appointments Provider Department Dept Phone Center 02/15/2015 1:00 PM [facility] 6th Floor [phone] FOOD AND NUT 02/15/2015 3:00 PM Thania Lamas [facility] 6th Floor [phone] Dig H ealt 03/08/2015 11:30 AM Dori Fajardo [facility] 6th Floor [phone] Di g Health 03/08/2015 1:00 PM [facility] 6th Floor [phone] FOOD AND NUT Discharging Physician: RENETTA HERNANDEZ Attending Physician: Dori Fajardo MD [facility] Red Surgery Pager# [phone] 9:20 AM 02/08/2015 documented in this enco [...] u have. During day time hours call [phone] and on weekends and after hours call [phone] and ask for the Red Resident diamond grader. Discharge Nurse: Agustina Mathis Date: 02/08/2015 Discharge [...] darwin Initial surgical contact: Ortiz at pager [phone] [email or web address] MD - 01/2015 6:20 AM PDTI have [...] | [facility] | [address] | [place], [place] | | | [facility] | [address] | [address] | | | TESTS | | | [...] | | | LABORATORY | | | ALBANIAN | | | SERVICES, | | | [...] | + + + + + | [facility] | [address] | [place] [address] | | | SERVICES, CORE | [address]ARK [...] | + + + + + | [facility] | [address] | [place] [address] | | | SERVICES, CORE | NANCY [...] French, | | | | | | MDiana / Surgical | | | | | | Pathology FellowEugenio Parker | | | | | Dianelys Barksdale M.D./Pathologist | | | | | | Clinical [...] identified. | | | | | | Agricultural Research Technician | | | | | | sections [...] | + + + + + | [facility] | [address] | [place] [address] | | | PATHOLOGY | [address] [...] (HCC) - Primary | + + | Asthma | + + | Chronic pain Other chronic pain | + + | Major depressive disorder, recurrent episode, moderate (HCC) Major depressive | | disorder, recurrent episode, moderate | + + | CPAP/BiPAP dependence Dependence on other enabling machine | + + | Posttraumatic stress disorder | + + | Essential hypertension, benign | + + | Hx of laparoscopic gastric banding Bariatric surgery status | + + documented in this encounter Administered Medications + +--------+ +--------+------+------+ | Medication Order | MAR | Action | Dose | Rate | Site | | | Action | Date | | | | + +--------+ +--------+------+------+ | acetaminophen (TYLENOL) tablet | Given | 02/09/20 | 650 mg | | | | 650 mg 650 mg, oral, EVERY 8 | | 15 12:35 | | | | | HOURS, 3 doses, First dose on Thu | | AM PDT | | | | | 02/07/15 at 1100, Last dose on Thu | | | | | | | 02/08/15 at 0000 | | | | | | + +--------+ +--------+------+------+ +-------+ +--------+---+---+ | Given | 02/08/20 | 650 mg | | | | | 15 4:29 | | | | | | PM PDT | | | | +-------+ +--------+---+---+ +---+---+ | | | +---+---+ + +-------+ +-------+---+---+ | aprepitant (EMEND) capsule 40 | Given | 02/08/20 | 40 mg | | | | mg 40 mg, oral, PREPROCEDURE | | 15 7:09 | | | | | ONCE (DISPENSE), 1 dose, Starting | | AM PDT | | | | | Thu02/07/15 at 0616, Until Wed | | | | | | | 02/07/15 at 0709 | | | | | | + +-------+ +-------+---+---+ +---+---+ | | | +---+---+ + +-------+ +-------+---+---+ | carvedilol (COREG) tablet 50 mg | Given | 02/09/20 | 50 mg | | | | 50 mg, oral, TWICE DAILY, First | | 15 9:01 | | | | | dose on Thu02/07/15 at 1115, | | AM PDT | | | | | Until Discontinued | | | | | | + +-------+ +-------+---+---+ +-------+ +-------+---+---+ | Given | 02/08/20 | 50 mg | | | | | 15 8:08 | | | | | | PM PDT | | | | +-------+ +-------+---+---+ +---+---+ | | | +---+---+ + +-------+ +--------+---+---+ | cloNIDine HCl (CATAPRES) tablet | Given | 02/09/20 | 0.3 mg | | | | 0.3 mg 0.3 mg, oral, TWICE | | 15 8:58 | | | | | DAILY, First dose on Thu02/07/15 | | AM PDT | | | | | at 1115, Until Discontinued | | | | | | + +-------+ +--------+---+---+ +-------+ +--------+---+---+ | Given | 02/08/20 | 0.3 mg | | | | | 15 8:08 | | | | | | PM PDT | | | | +-------+ +--------+---+---+ +---+---+ | | | +---+---+ + +-------+ +--------+---+---+ | cyanocobalamin (VITAMIN B-12) | Given | 02/09/20 | 1,000 | | | | injection 1,000 mcg 1,000 mcg, | | 15 8:59 | mcg | | | | subcutaneous, DAILY, 1 dose, | | AM PDT | | | | | First dose on 02/08/15 at 0900 | | | | | | + +-------+ +--------+---+---+ +---+---+ | | | +---+---+ + +---------+ +-------+-------+---+ | dextrose 5%-NaCl 0.45%-KCl 20 | New Bag | 02/08/20 | 150 | 150 | | | mEq/L IV infusion 150 mL/hr, | | 15 9:35 | mL/hr | mL/hr | | | intravenous, CONTINUOUS, Starting | | PM PDT | | | | | 02/07/15 at 1000, Until Park | | | | | | | 02/08/15 at 1822 | | | | | | + +---------+ +-------+-------+---+ +---------+ +-------+-------+---+ | New Bag | 02/08/20 | 150 | 150 | | | | 15 5:35 | mL/hr | mL/hr | | | | PM PDT | | | | +---------+ +-------+-------+---+ | New Bag | 02/08/20 | 150 | 150 | | | | 15 10:24 | mL/hr | mL/hr | | | | AM PDT | | | | +---------+ +-------+-------+---+ +---+---+ | | | +---+---+ + +-------+ +-------+---+---+ | enoxaparin (LOVENOX) injection | Given | 02/09/20 | 30 mg | | | | 30 mg 30 mg, subcutaneous, EVERY | | 15 8:59 | | | | | 12 HOURS, First dose on Thu | | AM PDT | | | | | 02/07/15 at 2100, Until | | | | | | | Discontinued | | | | | | + +-------+ +-------+---+---+ +-------+ +-------+---+---+ | Given | 02/08/20 | 30 mg | | | | | 15 8:08 | | | | | | PM PDT | | | | +-------+ +-------+---+---+ +---+---+ | | | +---+---+ + +---------+ +--------+---+---+ | fentaNYL citrate (PF) | New Bag | 02/08/20 | 25 mcg | | | | (SUBLIMAZE) injection 25 mcg 25 | | 15 10:08 | | | | | mcg, intravenous, POSTPROCEDURE | | AM PDT | | | | | PRN, 8 doses, Starting Thu02/07/15 | | | | | | | at 0821, Until Thu02/07/15 at | | | | | | | 1514, severe pain | | | | | | + +---------+ +--------+---+---+ +---------+ +--------+---+---+ | New Bag | 02/08/20 | 25 mcg | | | | | 15 10:06 | | | | | | AM PDT | | | | +---------+ +--------+---+---+ | New Bag | 02/08/20 | 25 mcg | | | | | 15 9:54 | | | | | | AM PDT | | | | +---------+ +--------+---+---+ + +---+ | | | + +---+ | fentaNYL citrate (PF) | | | (SUBLIMAZE) injection 1 dose, | | | Starting Thu02/07/15 at 0952, | | | Until Thu02/07/15 at 0952 | | + +---+ | | | + +---+ + +---------+ +--------+---+---+ | HYDROmorphone (DILAUDID) | New Bag | 02/08/20 | 0.5 mg | | | | injection 0.2-0.5 mg 0.2-0.5 mg, | | 15 10:35 | | | | | intravenous, POSTPROCEDURE PRN, | | AM PDT | | | | | Starting Thu02/07/15 at 0821, | | | | | | | Until Thu02/07/15 at 1514, | | | | | | | moderate pain | | | | | | + +---------+ +--------+---+---+ +---------+ +--------+---+---+ | New Bag | 02/08/20 | 0.5 mg | | | | | 15 10:20 | | | | | | AM PDT | | | | +---------+ +--------+---+---+ | New Bag | 02/08/20 | 0.5 mg | | | | | 15 10:10 | | | | | | AM PDT | | | | +---------+ +--------+---+---+ + +---+ | | | + +---+ | HYDROmorphone (DILAUDID) | | | injection 1 dose, Starting Wed | | | 02/07/15 at 0952, Until 02/07/15 | | | at 0956 | | + +---+ | | | + +---+ + +-------+ +------+---+---+ | HYDROmorphone (DILAUDID) tablet | Given | 02/09/20 | 4 mg | | | | 2-4 mg 2-4 mg, oral, EVERY 3 | | 15 11:32 | | | | | HOURS NEEDED, Starting Wed | | AM PDT | | | | | 02/07/15 at 1058, Until Park 02/08/15 | | | | | | | at 1822, moderate pain | | | | | | + +-------+ +------+---+---+ +-------+ +------+---+---+ | Given | 02/09/20 | 4 mg | | | | | 15 6:10 | | | | | | AM PDT | | | | +-------+ +------+---+---+ | Given | 02/09/20 | 4 mg | | | | | 15 2:39 | | | | | | AM PDT | | | | +-------+ +------+---+---+ + +---+ | | | + +---+ | HYDROmorphone (DILAUDID) tablet | | | 1 dose, Starting Thu02/07/15 at | | | 1100, Until Thu02/07/15 at 1104 | | + +---+ | | | + +---+ + +-------+ +---------+---+---+ | insulin lispro (HUMALOG) | Given | 02/09/20 | 4 Units | | | | injection subcutaneous, FOUR | | 15 7:05 | | | | | TIMES DAILY, First dose on Park | | AM PDT | | | | | 02/08/15 at 0630, Until | | | | | | | Discontinued | | | | | | + +-------+ +---------+---+---+ +---+---+ | | | +---+---+ + +---------+ [...] | | +---+---+ + +---------+ +-------+---+---+ | metoclopramide HCl (REGLAN) | New Bag | 02/09/20 | 10 mg | | | | injection 10 mg 10 mg, | | 15 8:58 | | | | | intravenous, EVERY 6 HOURS, 4 | | AM PDT | | | | | doses, First dose on Thu02/07/15 | | | | | | | at 1600, Last dose on Thu02/08/15 | | | | | | | at 1000 | | | | | | + +---------+ +-------+---+---+ +---------+ +-------+---+---+ | New Bag | 02/09/20 | 10 mg | | | | | 15 4:23 | | | | | | AM PDT | | | | +---------+ +-------+---+---+ | New Bag | 02/08/20 | 10 mg | | | | | 15 9:35 | | | | | | PM PDT | | | | +---------+ +-------+---+---+ +---+---+ | | | +---+---+ + +---------+ +-------+---+---+ | metoclopramide HCl (REGLAN) | New Bag | 02/08/20 | 10 mg | | | | injection 10 mg 10 mg, | | 15 10:16 | | | | | intravenous, ONCE, 1 dose, Wed | | AM PDT | | | | | 02/07/15 at 1015 | | | | | | + +---------+ +-------+---+---+ + +---+ | | | + +---+ | metoclopramide HCl (REGLAN) | | | injection 1 dose, Starting Wed | | | 02/07/15 at 1015, Until 02/07/15 | | | at 1016 | | + +---+ | | | + +---+ + +-------+ +-------+---+---+ | omeprazole (PRILOSEC) capsule | Given | 02/09/20 | 20 mg | | | | 20 mg 20 mg, oral, EVERY | | 15 8:59 | | | | | MORNING, First dose on Thu02/07/15 | | AM PDT | | | | | at 1115, Until Discontinued | | | | | | + +-------+ +-------+---+---+ +---+---+ | | | +---+---+ + +---------+ +------+---+---+ | ondansetron (ZOFRAN) injection | New Bag | 02/09/20 | 4 mg | | | | 4 mg 4 mg, intravenous, EVERY 12 | | 15 6:10 | | | | | HOURS, 4 doses, First dose on | | AM PDT | | | | | Thu02/07/15 at 1800, Last dose on | | | | | | | 02/09/15 at 0600 | | | | | | + +---------+ +------+---+---+ +---------+ +------+---+---+ | New Bag | 02/08/20 | 4 mg | | | | | 15 6:32 | | | | | | PM PDT | | | | +---------+ +------+---+---+ +---+---+ | | | +---+---+ + +-------+ +---------+---+---+ | phenol (CEPASTAT) lozenge 14.5 | Given | 02/09/20 | 14.5 mg | | | | mg 14.5 mg (1 lozenge), oral, | | 15 11:31 | | | | | NEEDED, Starting Thu02/08/15 at | | AM PDT | | | | | 1004, Until Thu02/08/15 at 1822, | | | | | | | sore throat | | | | | | + +-------+ +---------+---+---+ +---+---+ | | | +---+---+ + +-------+ +------+---+---+ | polyethylene glycol (MIRALAX) | Given | 02/09/20 | 17 g | | | | powder 17 g 17 g, oral, DAILY, | | 15 8:59 | | | | | First dose on Thu02/07/15 at 1115, | | AM PDT | | | | | Until Discontinued | | | | | | + +-------+ +------+---+---+ +---+---+ | | | +---+---+ + +-------+ + +---+---+ | pramipexole (MIRAPEX) tablet | Given | 02/09/20 | 0.375 mg | | | | 0.375 mg 0.375 mg, oral, TWICE | | 15 8:58 | | | | | DAILY, First dose on Thu02/07/15 | | AM PDT | | | | | at 2100, Until Discontinued | | | | | | + +-------+ + +---+---+ +-------+ + +---+---+ | Given | 02/08/20 | 0.375 mg | | | | | 15 8:08 | | | | | | PM PDT | | | | +-------+ + +---+---+ +---+---+ | | | +---+---+ + +---------+ +--------+---+---+ | thiamine (VITAMIN B-1) IV 100 | New Bag | 02/09/20 | 100 mg | | | | mg 100 mg, intravenous, DAILY, 1 | | 15 8:59 | | | | | dose, First dose on [facility] 02/08/15 | | AM PDT | | | | | at 0900 | | | | | | + +---------+ +--------+---+---+ +---+---+ | | | +---+---+ documented in this encounter
--- OUTSIDE RECORDS SUMMARY | ~2019-06-14 | XMS | Encounter Summary ---
Demographics + + + | Address | [address] | | | [place] [address] | + + + | Home Phone [...] Team Providers + +------+ + | Care Chief Controller Center Name | Role | Phone | + [...] 03/08/ | Office | Digestive Health | Dori Fajardo, | Morbid obesity (HCC) | | 2015 | Visit | Center at [facility] [address] | MD | (Primary Dx) | | | | [address] | | | | | | Mailcode: Center | | | | | | for Health and | | | | | | [facility], [facility] [address] | | | | | | [place], [place] | | | | | | [address] | | | | | | [phone] | | | +--------+---------+ + + + [...] + + + | Blood Pressure | 155/97 | 03/08/2015 11:49 AM | | | | | PDT | | + + + + + | Pulse | 91 | 03/08/2015 11:49 AM | | | | | PDT | | + + + + + | Temperature | 36.6 C (97.9 F) | 03/08/2015 11:49 AM | | | | | PDT | | + + + + + | Respiratory Rate | 18 | 03/08/2015 11:49 AM | | | | | PDT | | + + + + + | Oxygen Saturation | 97% | 03/08/2015 11:49 AM | | | | | PDT | | + + + + + | Inhaled Oxygen | - | - | | | Concentration | | | | + + + + + | Weight | 174.1 kg (383 lb | 03/08/2015 11:49 AM | | | | 12.8 oz) | PDT | | + + + + + | Height | 160 cm (5' 3") | 03/08/2015 11:49 AM | | | | | PDT | | + + + + + | Body Mass Index | 67.99 | 03/08/2015 11:49 AM | | | | | PDT | | + + + + + documented in this encounter Progress Notes Dori Fajardo MD - 03/08/2015 12:33 PM PDTI saw and evaluated the patient and agree with the findings and plan as documented in the resident s note. I spent 15 minutes with the patient of which >50% of this time was in counseling and coordination of care. We discusse d Strategies for maximizing benefits of recent sleeve gastrectomy. DORI FAJARDO MD CHIEF, BARIATRIC SERVICES [facility] 6TH FLOOR [address] Mailcode: [place] [id number] Yakov Benitez MD - 03/08/2015 12:25 PM PDT 03/08/2015 BARIATRIC FOLLOW-UP Aspen Darden is a 44 y.o. female with a history of ANNABEL on CPAP, DMII, HTN, and morbid obe sity s/p lap band procedure in 2013 with removal who underwent a laparoscopic sleeve gastrec tobin on 02/07/2015. Preoperatively she weighed 416 lbs and has lost 33 lbs in the past month and now weighs 383 lbs. She is tolerating a regular diet, eating every 3-4 hours, separatin g liquids from solids. She is getting 60 gm protein and 64 oz water daily and denies s/s of dehydration. She is having regular bowel movements daily and denies diarrhea or constipati on. She has cut out sugar from her diet as she is not tolerating it. She is taking her vit amins as instructed. She denies dysphagia, nausea, vomiting, regurgitation or heartburn. S he is exercising daily by walking 2-3x per day for 30 minutes at a time. She is not lifting weights but is interested in joining a local facility for water arobics. She is very pleas ed with her results thus far and does not have concerns at this time. Medications: MVI: yes Calcium supplement: yes Vit D: yes B12: yes Actigall: no H2 stacey or PPI : yes Narcotics: no Symptoms: Nausea: None Dysphagia: None Vomiting: None Heartburn: None Abd Pain: None Constipation: None Diarrhea: None Physical exam: Wt Readings from Last 1 Encounters: 03/08/15 174.091 kg (383 lb 12.8 oz) Body mass index is 68 kg/(m^2). General appearance: pleasant, conversant, NAD, alert and oriented, father and daughter at s sari Lungs: CTAB, unlabored breathing on room air Cardiac: RRR, no appreciable m/g/r Abdomen: obese, soft, nontender, nondistended, well healed laparoscopic incisions with mini mal scabbing, no erythema or sign of infection Impression: Aspen Darden is a 44 y.o. female with a history of ANNABEL on CPAP, DMII, HTN, an d morbid obesity s/p lap band procedure in 2013 with subsequent removal who underwent a lapa roscopic sleeve gastrectomy on 02/07/2015 and is doing very well at one month postoperatively. Plan: -Continue supplements as instructed - See miller head today - Continue regular diet with 60 gm protein and 64 oz water daily - Encouraged to increase activity level and include anaerobic exercise with light weights - Return to clinic in 2 months to be seen by COMMERCIAL APPRAISER - Return to clinic in 5 months for 6 mo follow up with Dr. Brianna Forrest MD [facility] 6TH FLOOR [address] Mailcode: [place] [phone] documented in this encounter Plan of Treatment Not on filedocumented as of this encounter Visit Diagnoses + + | Diagnosis | + + | Morbid obesity (HCC) - Primary Morbid obesity | + + documented in this encounter
--- OUTSIDE RECORDS SUMMARY | ~2019-06-14 | XMS | Encounter Summary ---
Demographics + + + | Address | [address] | | | [place] [address] | + + + | Home Phone [...] Providers + +------+ + | Care Receiving Checker Name | Role | Phone | + +------+ + | Bassam Ross DO | PCP | | + +------+ + Encounter Details +--------+ + + + + | Date | Type | Department | Care Team | Description | +--------+ + + + + | 01/22/ | Anesthesia | Preoperative | Dulce Romero | | | 2015 | Event | [facility] at | J, DIRECTOR LEARNING | | | | | [address] 4th Floor [address] | | | | | | [address] | | | | | | Mailcode: [facility] | | | | | | [facility] | | | | | | and Healing, | | | | | | Building 1,4th Floor | | | | | | [place], [place] | | | | | | [address] | | | | | | [phone] | | | +--------+ + + + [...]
--- OUTSIDE RECORDS SUMMARY | ~2019-06-14 | XMS | Encounter Summary ---
Demographics + + + | Address | [address] | | | [place] [address] | + + + | Home Phone [...] Team Providers + +------+ + | Care Temperature Regulator Pyrometer Name | Role | Phone | + +------+ + PCP | Unavailable | + +------+ + Encounter Details +--------+ + + + + | Date | Type | Department | Care Team | Description | +--------+ + + + + | 10/16/ | Hospital | [facility] | | | | 2003 | Encounter | [facility] | | | | | | [address] | | | | | | [place] | | | | | | [address] | | | | | | [phone] | | | +--------+ + + + [...] [place] | | | | | | [id number] | | | | | | | | +--------+---------+ + + + | 01/18/ | Office | Sleep Medicine | Jermaine Fairchild | | | 2019 | Visit | | MD Lars [address] | | | | | | [address] [address] | | | | | | [place] [address] | | | | | | [phone] | | | | | | | | +--------+---------+ + + + documented as of this encounter Visit Diagnoses Not on filedocumented in this encounter"
--- OUTSIDE RECORDS SUMMARY | ~2019-06-14 | XMS | Encounter Summary ---
Demographics + + + | Address | [address] | | | [place] [address] | + + + | Home Phone | | + + + | Preferred Language | Unknown | + + + | Marital Status | Single | + + + | Caodaism Affiliation | Unknown | + + + | Race | Unknown | + + + | Ethnic Group | Unknown | + + + Author + + + | Author | [facility] | | | and [place] | + + + | Organization | [facility] | | [...] Team Providers + +------+ + | Care Ion Exchange Operator Name | Role | Phone | + +------+ + | Bassam Ross DO | PCP | | + +------+ + Encounter Details +--------+ + + + + | Date | Type | Department | Care Team | Description | +--------+ + + + + | 12/13/ | Abstract | [facility] [place] | Adolfo Zazueta, | COPD (chronic | | 2014 | | PULMONARY [address] | MD [address] | obstructive | | | | [place], | [place], [place] | pulmonary disease) | | | | [place] [address] | [address] | (HCC) (Primary Dx) | | | | [phone] | | | +--------+ + + + [...] [place] | | | | | | [phone] | | | | | | | | +--------+---------+ + + + | 01/18/ | Office | Sleep Medicine | Jermaine Fairchild | | | 2019 | Visit | | MD Jac [address] | | | | | | [address] | | | | | | [place] [address] | | | | | | [phone] | | | | | | | | +--------+---------+ + + + documented as of this encounter Visit Diagnoses + + | Diagnosis | + + | COPD (chronic obstructive pulmonary disease) (HCC) - Primary Chronic airway | | obstruction, not elsewhere classified | + + documented in this encounter"
--- OUTSIDE RECORDS SUMMARY | ~2019-06-14 | XMS | Encounter Summary ---
Demographics + + + | Address | [address] | | | [place] [address] | + + + | Home Phone [...] + + + | Author | [facility] | | | and [place] | + + + | Organization | [facility] | | | [...] Team Providers + +------+ + | Care Ophthalmic Technologist Name | Role | Phone | + +------+ + | Bassam Ross DO | PCP | | + +------+ + Reason for Visit + + + | Reason | Comments | + + + | Appointment | | + + + Encounter Details +--------+ + + + + | Date | Type | Department | Care Team | Description | +--------+ + + + + | 09/27/ | Telephone | [facility] [place] | Adolfo Zazueta, | Appointment | | 2014 | | PULMONARY [address] | MD [address] | | | | | [place], | [place], [place] | | | | | [place] [address] | [address] | | | | | [phone] | | | +--------+ + + + [...] [place] | | | | | | [id number] | | | | | | | | +--------+---------+ + + + | 01/18/ | Office | Sleep Medicine | Jermaine Fairchild | | 2019 | Visit | | MD Jac Sousa | | | | | | [address] | | | | | | [place] [address] | | | | | | [phone] | | | | | | | | +--------+---------+ + + + documented as of this encounter Visit Diagnoses Not on filedocumented in this encounter"
--- OUTSIDE RECORDS SUMMARY | ~2019-06-14 | XMS | Encounter Summary ---
Demographics + + + | Address | [address] | | | [place] [address] | + + + | Home Phone [...] Author + + + | Author | [facility] | + + + | Organization | [facility] | + + + | [...] Team Providers + +------+ + | Care Head Of Art Name | Role | Phone | + [...] | | | | | | | [facility] for | | | | | | | Health and | | | | | | | Healing, | | | | | | | Building [address] | | | | | | | [place], [place] | | | | | | | [address] | | | | | | | Phone: | | | | | | | [phone] | | | | | | | Fax: | | | | | | | [phone] | +--------+--------+ + + + + Encounter Details +--------+---------+ + + + | Date | Type | Department | Care Team | Description | +--------+---------+ + + + | 04/05/ | Office | Digestive Health | Margot Contreras RD | Morbid obesity with | | 2013 | Visit | Center at [facility] [address] | [address] | BMI of 70 and over, | | | | [address] | [place], | adult (HCC) (Primary | | | | Mailcode: Mobile | [place] [address] | Dx) | | | | for Health and | | | | | | Healing, [address] | | | | | | [place], [place] | | | | | | [address] | | | | | | [phone] | | | +--------+---------+ + + + [...] + + + + | Weight | 193.7 kg (427 lb) | 04/05/2014 2:13 PM | | | | | PST | | + + + + + | Height | - | - | | + + + + + | Body Mass Index | 80.68 | 01/03/2014 2:22 PM | | | | | PDT | | + + + + + documented in this encounter Progress Notes Margot Contreras, RD - 04/05/2014 2:14 PM PST Referring Provider: Bassam Ross DO [facility], Pre-Bariatric Surgery Visit Follow-up diet consult prior to having gastric sleeve (revision from lap-band - 05/13/2004; removed in 2011). Documented Time of Visit: 2:12 to 2:40 (28 minutes [id number] with patient) SUBJECTIVE: Arrives with her friend. Asked how she lost weight from last visit, Says dad is living with her and he is diabetic & now following a cardiac diet so she has to be more c areful about what she prepares & therefore eats. Feels she was more unstable in the past but is finding ways to be strong to deal with life. She says she was an only child and her dad was her rock. Now she has to be his rock. She re ports working with a counselor (who commented Aspen has grown up a lot). Food Allergies: No Current Physical Activity: Exercising with her dad, walking 7 days/week (unable to say dur ation) sometimes taking him to doctor appointments. OBJECTIVE: Height: Ht Readings from Last 1 Encounters: 01/03/14 1.549 m (5' 1") Weight: Wt Readings from Last 2 Encounters: 04/05/14 193.686 kg (427 lb) 01/04/14 197.859 kg (436 lb 3.2 oz) 09/21/13 203.438 kg (448 lb 8 oz) BMI: Body mass index is 80.72 kg/(m^2). Weight change since last nutrition appointment: Lost 9lbs Past Medical History: Past Medical History Diagnosis [...] echo and chest xray findings. Followed by varnishing machine operator in [place]. Medications: See list in Epic snap shot Medications for Diabetes: n/a Dietary Supplements: Calcium plus Vitamin D (Citracal Petites), B-12, Flinstones. Labs: see Results Review for current labs (if available). Nutrition Diagnosis: Obesity as evidenced by BMI of 80.7. Pre-Surgery Diet: Breakfast - cup of decaf coffee with Splenda, 1 egg + sting cheese Lunch: Tuna SW - wheat bread 1/2 SW + banana Dinner: Taco salad (80/20meat, rinsed and drained) + cheese (LF), + olives Drinking: water, Crystal Light, hot tea (decaf), decaf coffee - says she is getting her 64o z in Reviewed written diet suggestions to help patient lose weight before surgery. -Eat within one hour of waking, then every 3-4 waking hours -Include lean protein with all meals & snacks (suggested ground turkey or chicken rather t palacios beef) -Use healthy plate model or frozen entree (~300 calories, < 600 mg sodium) at lunch & dinn er -Keeping daily food logs -Choose foods & beverages with < 14 g sugar & < 5 g fat per serving -Eliminate liquid calories and carbonation; limit caffeine to 16 oz/day Reviewed behavior changes to practice before surgery to prepare for surgery. - fluids from meals by 30 minutes before and after -Sip fluids throughout the day, aim for 64 oz/day (non-caloric, non-caffeinated, non-carbo nated) -Practicing mindful eating Written Education Provided/Reviewed: Reviewed the [...] No Learning style: Patient is a Visual learner Verbal learner Expected Outcome: I think the patient will do moderately if following all lifestyle and be havioral changes discussed today. Discussed the importance of continuing addresses the relat ionship between her weight and her emotions & that it is essential for mcc success. GOAL: The patient's goal is to have weight loss surgery to maintain weight loss and improve other health conditions. 1. Continue to practice behavioral changes to prepare for surgery. 2. Increase physical activity. 3. Review all information provided for post-surgery diet progression. 4. Call or send Sketch[employer] message to dietitian with any questions. Contact information was provided. Follow up with dietitian in 1-2 weeks after surgery. Margot Contreras RD, [facility], [place] Pager# [phone] documented in this enco unter Plan of Treatment Not on filedocumented as of this encounter Procedures + +--------+ + + + | Procedure Name | Priori | Date/Time | Associated Diagnosis | Comments | | | ty | | | | + +--------+ + + + | ME MNT RE-ASSESSMNT | Routin | 04/05/2014 | Morbid obesity | | | X15MIN | e | 2:53 PM | with BMI of 70 and | | | | | PST | over, adult (HCC) | | + +--------+ + + + documented in this encounter Visit Diagnoses + + | Diagnosis | + + | Morbid obesity with BMI of 70 and over, adult (HCC) - Primary | + + documented in this encounter
--- OUTSIDE RECORDS SUMMARY | ~2019-06-14 | XMS | Encounter Summary ---
Demographics + + + | Address | [address] | | | [place] [address] | + + + | Home Phone | | + + + | Preferred Language | Unknown | + + + | Marital Status | Single | + + + | Shinto Affiliation | Unknown | + + + | Race | Unknown | + + + | Ethnic Group | Unknown | + + + Author + + + | Author | [facility] | | | and [place] | + + + | Organization | [facility] | | [...] Team Providers + +------+ + | Care Poultry Farmer Egg Name | Role | Phone | + +------+ + | Iqra Peralta MD | PCP | | + +------+ + Encounter Details +--------+ + + + + | Date | Type | Department | Care Team | Description | +--------+ + + + + | 11/04/ | Orders Only | [facility] | Iqra Peralta V, | | | 2018 | | [address] | [address] | | | | | [place] | [place] | | | | | [place], [place] | [address] | | | | | [address] | | | | | | [phone] | | | +--------+ + + + [...] [place] | | | | | | [address] | | | | | | | | +--------+---------+ + + + | 01/18/ | Office | Sleep Medicine | Jermaine Fairchild | | 2019 | Visit | | MD Jac Sousa | | | | | | [address] | | | | | | [place] [address] | | | | | | [phone] | | | | | | | | +--------+---------+ + + + documented as of this encounter Procedures + +--------+ + + + | Procedure Name | Priori | Date/Time | Associated Diagnosis | Comments | | | ty | | | | + +--------+ + + + | ECHO INTERPRETATION | Routin | 11/04/2017 | | Results for this | | OF OUTSIDE FILMS | e | 1:17 PM | | procedure are in the | | | | PDT | | results section. | + +--------+ + + + documented in this encounter Results ECHO Interpretation of Outside Films (11/04/2017 1:17 PM PDT) + + | Specimen | [...] | | | | | | INDICATIONS Edema [...] no evidence of | | | aortic regurgitation. Aortic Valve: There is no evidence of aortic | | | stenosis. Mitral Valve: The mitral valve was not well visualized. | | | Mitral Valve: There is trace mitral regurgitation. Tricuspid Valve: | | | The tricuspid valve was not well visualized. Tricuspid Valve: Trace | | | tricuspid regurgitation present. Tricuspid Valve: There is no | | | evidence of pulmonary hypertension. Pulmonic Valve: The pulmonic | | | valve was not well visualized. Pericardium: There is no pericardial | | | effusion. Pericardium: No pleural effusion seen. IVC/Hepatic Veins: | | | The IVC was not well visualized. Aorta: Aorta not well seen. General | | | comments: Please consider Definity for better evaluation of left | | | ventricular function. MEASUREMENTS Ao asc: 3.33 | | | cm Ao Diam: 3.27 cm LA Diam: 3.85 cm LA Major: 5.21 cm | | | EDV(Teich): 75.96 ml IVSd: 1.39 cm LVIDd: 4.14 cm LVPWd: | | | 1.18 cm LVOT Area: 3.16 cm2 LVOT Diam: 2.00 cm %FS: | | | 26.85 % EF(Teich): 52.85 % ESV(Teich): 35.81 ml LVIDs: | | | 3.02 cm SV(Teich): 40.14 ml RA Major: 5.45 cm RV Major: | | | 7.36 cm RVIDd: 2.99 cm LVEF MOD A2C: 70.15 % SV MOD A2C: | | | 72.22 ml LVEF MOD A4C: 62.38 % SV MOD A4C: 61.69 ml EF | | | Biplane: 66.75 % LVEDV MOD BP: 105.61 ml LVESV MOD BP: | | | 35.10 ml LVEDV MOD A2C: 102.96 ml LVLd A2C: 7.04 cm LVEDV MOD | | | A4C: 98.89 ml LVLd A4C: 7.77 cm LVESV MOD A2C: 30.73 ml | | | LVLs A2C: 5.53 cm LVESV MOD A4C: 37.19 ml LVLs A4C: 5.99 cm | | | LAESV(A-L): 84.95 ml LAESV Index (A-L): 32.42 ml/m2 LAAs | | | A2C: 21.37 cm2 LAESV A-L A2C: 73.73 ml LALs A2C: 5.26 cm | | | LAAs A4C: 24.63 cm2 LAESV A-L A4C: 95.79 ml LALs A4C: 5.37 | | | cm RAAs: 21.57 cm2 RAESV A-L: 68.54 ml RAESV MOD: 63.21 ml | | | RALs: 5.76 cm TAPSE: 1.68 cm AV maxP.68 mmHg AV | | | meanP.98 mmHg AV Vmax: 1.19 m/s AV Vmean: 0.83 m/s AV | | | VTI: 23.45 cm MIKHAIL Vmax: 2.32 cm2 MIKHAIL (VTI): 2.48 cm2 AVAI | | | Vmax: 0.00 cm2/m2 AVAI (VTI): 0.00 cm2/m2 LVOT maxP.06 | | | mmHg LVOT meanP.76 mmHg LVSI Dopp: 22.26 ml/m2 LVSV Dopp: | | | 58.32 ml LVOT Vmax: 0.87 m/s LVOT Vmean: 0.63 m/s LVOT | | | VTI: 18.40 cm MV A Gregg: 0.03 m/s MV DecT: 185.80 ms MV E | | | Gregg: 1.40 m/s MV E/A Ratio: 37.8 MV PHT: 53.88 ms MVA By | | | PHT: 4.08 cm2 MV maxP.71 mmHg MV meanP.22 mmHg MV | | | Vmax: 1.78 m/s MV Vmean: 1.02 m/s MV VTI: 26.10 cm MVA | | | (VTI): 2.23 cm2 Septal e': 0.08 m/s Septal E/e': 17.11 | | | Lateral e': 0.08 m/s Lateral E/e': 17.11 RAP: 5 mmHg RVSP: | | | 22.03 mmHg TR maxP.03 mmHg TR Vmax: 2.06 m/s | | | Public Health Clinical Nurse Specialist: Authenticated by: Bassam Hernandez Report Date/Time: | | | 11-13-2017 16:25:37 | | + + + + ----+ | Procedure Note | + ----+ | Tommy Gloria Conversion - 01/20/2019 3:34 PM PDT Patient Name: Jade JOSÉ of | | : 1970 Performing Physician: Bassam | | Mary INDICATIONS------ | | -----Edema CONCLUSIONS 1. This was a technically difficult study with | | suboptimal views due to patient's body habitus.2. Grossly normal LV size and systolic | | function. Unable to comment on regional wall motion.3. There is no pericardial effusion. | | FINDINGS--------ECG rhythm: Atrial fibrillation.Study: A 2-dimensional transthoracic | | echocardiogram with m-mode, spectral and color flow Doppler was perfomed.Study: This was | | a technically difficult study with suboptimal views.Left Ventricle: Grossly normal LV | | size and systolic function. Unable to comment on regional wall motion.Right Ventricle: | | The RV was not well visualized.Left Atrium: The left atrium is mildly dilated.Right | | Atrium: The right atrium is mildly enlarged.Aortic Valve: The aortic valve was not well | | visualized.Aortic Valve: There is no evidence of aortic regurgitation.Aortic Valve: | | There is no evidence of aortic stenosis.Mitral Valve: The mitral valve was not well | | visualized.Mitral Valve: There is trace mitral regurgitation.Tricuspid Valve: The | | tricuspid valve was not well visualized.Tricuspid Valve: Trace tricuspid regurgitation | | present.Tricuspid Valve: There is no evidence of pulmonary hypertension.Pulmonic Valve: | | The pulmonic valve was not well visualized.Pericardium: There is no pericardial | | effusion.Pericardium: No pleural effusion seen.IVC/Hepatic Veins: The IVC was not well | | visualized.Aorta: Aorta not well seen.General comments: Please consider Definity for | | better evaluation of left ventricular function. MEASUREMENTS Ao asc: 3.33 | | cmAo Diam: 3.27 cmLA Diam: 3.85 cmLA Major: 5.21 cmEDV(Teich): 75.96 mlIVSd: | | 1.39 cmLVIDd: 4.14 cmLVPWd: 1.18 cmLVOT Area: 3.16 aq5LAMM Diam: 2.00 cm%FS: | | 26.85 %EF(Teich): 52.85 %ESV(Teich): 35.81 mlLVIDs: 3.02 cmSV(Teich): 40.14 mlRA | | Major: 5.45 cmRV Major: 7.36 cmRVIDd: 2.99 cmLVEF MOD A2C: 70.15 %SV MOD A2C: | | 72.22 mlLVEF MOD A4C: 62.38 %SV MOD A4C: 61.69 mlEF Biplane: 66.75 %LVEDV MOD BP: | | 105.61 mlLVESV MOD BP: 35.10 mlLVEDV MOD A2C: 102.96 mlLVLd A2C: 7.04 cmLVEDV | | MOD A4C: 98.89 mlLVLd A4C: 7.77 cmLVESV MOD A2C: 30.73 mlLVLs A2C: 5.53 cmLVESV | | MOD A4C: 37.19 mlLVLs A4C: 5.99 cmLAESV(A-L): 84.95 mlLAESV Index (A-L): 32.42 | | ml/m2LAAs A2C: 21.37 [id number] A-L A2C: 73.73 mlLALs A2C: 5.26 cmLAAs A4C: 24.63 | | [id number] A-L A4C: 95.79 mlLALs A4C: 5.37 cmRAAs: 21.57 [id number] A-L: 68.54 | | mlRAESV MOD: 63.21 mlRALs: 5.76 cmTAPSE: 1.68 cmAV maxP.68 mmHgAV meanPG: | | 2.98 mmHgAV Vmax: 1.19 m/Edwin Vmean: 0.83 m/Edwin VTI: 23.45 cmAVA Vmax: 2.32 | | cm2AVA (VTI): 2.48 ul7OSRM Vmax: 0.00 cm2/m2AVAI (VTI): 0.00 cm2/m2LVOT maxPG: | | 3.06 mmHgLVOT meanP.76 mmHgLVSI Dopp: 22.26 ml/m2LVSV Dopp: 58.32 mlLVOT Vmax: | | 0.87 m/sLVOT Vmean: 0.63 m/sLVOT VTI: 18.40 cmMV A Gregg: 0.03 m/sMV DecT: | | 185.80 msMV E Gregg: 1.40 m/sMV E/A Ratio: 37.8MV PHT: 53.88 msMVA By PHT: 4.08 | | cm2MV maxP.71 mmHgMV meanP.22 mmHgMV Vmax: 1.78 m/sMV Vmean: 1.02 m/sMV | | VTI: 26.10 cmMVA (VTI): 2.23 sh2Ecskxm e': 0.08 m/sSeptal E/e': 17.11Lateral | | e': 0.08 m/sLateral E/e': 17.11RAP: 5 mmHgRVSP: 22.03 mmHgTR maxP.03 | | mmHgTR Vmax: 2.06 m/s Public Health Clinical Nurse Specialist:Authenticated by: Bassam Dickson Date/Time: | | 11-13-2017 16:25:37 IMPRESSION: 1. This was a technically difficult study with suboptimal | | views due to patient's body habitus.2. Grossly normal LV size and systolic function. | | Unable to comment on regional wall motion.3. There is no pericardial effusion. | |Ao asc: 3.33 cm | |Ao Diam: 3.27 cm | |LA [...] |TR Vmax: 2.06 m/s | | | |Public Health Clinical Nurse Specialist: | |Authenticated by: Bassam Hernandez | |Report Date/Time: 11-13-2017 16:25:37 | | | |IMPRESSION: | |1. This was a technically difficult study with suboptimal views due to patient's body habit us. | |2. Grossly normal LV size and systolic function. Unable to comment on regional wall motion. | |3. There is no pericardial effusion. | + ----+ documented in this encounter Visit Diagnoses Not on filedocumented in this encounter"
--- OUTSIDE RECORDS SUMMARY | ~2019-06-14 | XMS | Encounter Summary ---
Demographics + + + | Address | [address] | | | [place] [address] | + + + | Home Phone [...] + + + | Author | [facility] | | | and [place] | + + + | Organization | [facility] | | [...] Team Providers + +------+ + | Care Ginning Operator Name | Role | Phone | + +------+ + | Iqra Peralta MD | PCP | | + +------+ + Encounter Details +--------+ + + + + | Date | Type | Department | Care Team | Description | +--------+ + + + + | 10/21/ | Orders Only | [facility] | Conversion | | | 2017 | | NEPHROLOGY JAMES | Transaction, | | | | | [address] | Provider Unknown | | | | | [address] [place] | [phone] | | | | | [address] | | | | | | [phone] | | | +--------+ + + + [...] [place] | | | | | | [address] | | | | | | | | +--------+---------+ + + + | 01/18/ | Office | Sleep Medicine | Jermaine Fairchild | | 2019 | Visit | | MD Jac Sousa [place] | | | | | | [address] | | | | | | [place] [address] | | | | | | [phone] | | | | | | | | +--------+---------+ + + + documented as of this encounter Procedures + +--------+ + + + | Procedure Name | Priori | Date/Time | Associated Diagnosis | Comments | | | ty | | | | + +--------+ + + + | VITAMIN D, | Routin | 01/20/2018 | | Results for this | | DEFICIENCY SCREEN | e | 12:00 AM | | procedure are in the | | (25-HYDROXY) | | PDT | | results section. | + +--------+ + + + | URINALYSIS, | Routin | 01/20/2018 | | Results for this | | MICROSCOPIC ONLY | e | 12:00 AM | | procedure are in the | | | | PDT | | results section. | + +--------+ + + + | PROTEIN/CREATININE | Routin | 01/20/2018 | | Results for this | | RATIO, URINE | e | 12:00 AM | | procedure are in the | | | | PDT | | results section. | + +--------+ + + + | CBC NO DIFFERENTIAL | Routin | 01/20/2018 | | Results for this | | | e | 12:00 AM | | procedure are in the | | | | PDT | | results section. | + +--------+ + + + | RENAL FUNCTION PANEL | Routin | 01/20/2018 | | Results for this | | | e | 12:00 AM | | procedure are in the | | | | PDT | | results section. | + +--------+ + + + | IRON AND IRON | Routin | 10/21/2017 | | Results for this | | BINDING CAPACITY | e | 12:00 AM | | procedure are in the | | | | PDT | | results section. | + +--------+ + + + | LIPID PANEL | Routin | 10/21/2017 | | Results for this | | | e | 12:00 AM | | procedure are in the | | | | PDT | | results section. | + +--------+ + + + | MICROALBUMIN/CREATIN | Routin | 10/21/2017 | | Results for this | | INE RATIO, URINE | e | 12:00 AM | | procedure are in the | | TEST | | PDT | | results section. | + +--------+ + + + | CBC NO DIFFERENTIAL | Routin | 10/21/2017 | | Results for this | | | e | 12:00 AM | | procedure are in the | | | | PDT | | results section. | + +--------+ + + + | T4, FREE | Routin | 10/21/2017 | | Results for this | | | e | 12:00 AM | | procedure are in the | | | | PDT | | results section. | + +--------+ + + + | FERRITIN | Routin | 10/21/2017 | | Results for this | | | e | 12:00 AM | | procedure are in the | | | | PDT | | results section. | + +--------+ + + + documented in this encounter Results CBC no Differential (01/20/2018 12:00 AM PDT) + + + + + + | Component | Value | Ref Range | Performed | Pathologist | | | | | At | Signature | + + + + + + | WBC | 9.5 | 4.5 - 11 10 | EXTERNAL | | | | | | LAB | | + + + + + + | RED CELL | 4.72 | 3.8 - 5.1 10 | EXTERNAL | | | COUNT | | | LAB | | + + + + + + | Hgb | 14.4 | 12 - 16 g/dL | EXTERNAL | | | | | | LAB | | + + + + + + | Hematocrit, | 43.1 | 35 - 45 % | EXTERNAL | | | POC | | | LAB | | + + + + + + | MCV | 91.4 | 81 - 99 fL | EXTERNAL | | | | | | LAB | | + + + + + + | MCH | 31 | 27 - 33 pg | EXTERNAL | | | | | | LAB | | + + + + + + | MCHC | 33 | 30 - 36 g/dL | EXTERNAL | | | | | | LAB | | + + + + + + | RDW-CV | 17.5 (A) | 10.5 - 15 % | EXTERNAL | | | | | | LAB | | + + + + + + | Platelet | 308 | 140 - 440 K/ L | EXTERNAL | | | Count | | | LAB | | | Plasma | | | | | + + + + + + | MPV | | fL | EXTERNAL | | | | | | LAB | | + + + + + + + + | Specimen | + + | | + + + +---------+ + + | Performing | Address | City/State/Zipcode | Phone Number | | Organization | | | | + +---------+ + + | EXTERNAL LAB | | | | + +---------+ + + Protein/Creatinine Ratio, Urine (01/20/2018 12:00 AM PDT) + + + + + + | Component | Value | Ref Range | Performed | Pathologist | | | | | At | Signature | + + + + + + | Protein/Cre | 3227.6 (A) | 0 - 150 | EXTERNAL | | | at Ratio | | | LAB | | [...] | | | + +---------+ + + Vitamin D, Deficiency Screen (25-Hydroxy) (01/20/2018 12:00 AM PDT) + +-------+ + + + | Component | Value | Ref Range | Performed | Pathologist | | | | | At | Signature | + +-------+ + + + | Vit D, | 45 | 30 - 100 | EXTERNAL | | | 25-Hydroxy | | | LAB | | + +-------+ + + + + + | Specimen | + + | Blood specimen | | (specimen) | + + + +---------+ + + | Performing | Address | City/State/Zipcode | Phone Number | | Organization | | | | + +---------+ + + | EXTERNAL LAB | | | | + +---------+ + + Urinalysis, Microscopic Only (01/20/2018 12:00 AM PDT) + + + + + + | Component | Value | Ref Range | Performed | Pathologist | | | | | At | Signature | + + + + + + | Color | Yellow | | EXTERNAL | | | | | | LAB | | + + + + + + | Clarity | Slightly Cloudy | | EXTERNAL | | | | | | LAB | | + + + + + + | Specific | 1.018 | 1.005 - 1.030 | EXTERNAL | | | [place] | | | LAB | | + + + + + + | Leukocyte | Comment: small | | EXTERNAL | | | Esterase, | | | LAB | | | Urine | | | | | + + + + + + | Nitrite, | Negative | | EXTERNAL | | | Urine | | | LAB | | + + + + + + | Urobilinoge | Normal | | EXTERNAL | | | n, Urine | | | LAB | | + + + + + + | Protein, | 3+ | | EXTERNAL | | | Urine | | | LAB | | + + + + + + | pH, Urine | 6 | 5 - 9 | EXTERNAL | | | | | | LAB | | + + + + + + | Blood, | Negative | | EXTERNAL | | | Urine | | | LAB | | + + + + + + | Ketones | negative | | EXTERNAL | | | | | | LAB | | + + + + + + | Bilirubin, | Negative | | EXTERNAL | | | Urine | | | LAB | | + + + + + + | Glucose, | Negative | | EXTERNAL | | | Urine | | | LAB | | + + + + + + + + | Specimen | + + | Urine specimen | | (specimen) | + + + +---------+ + + | Performing | Address | City/State/Zipcode | Phone Number | | Organization | | | | + +---------+ + + | EXTERNAL LAB | | | | + +---------+ + + Renal Function Panel (01/20/2018 12:00 AM PDT) + +---------+ + + + | Component | Value | Ref Range | Performed | Pathologist | | | | | At | Signature | + +---------+ + + + | Glucose, | 122 (A) | 70 - 100 mg/dL | EXTERNAL | | | Fasting | | | LAB | | + +---------+ + + + | BUN | 15 | 6 - 23 mg/dL | EXTERNAL | | | | | | LAB | | + +---------+ + + + | Creatinine | 0.65 | 0.60 - 1.35 | EXTERNAL | | | | | mg/dL | LAB | | + +---------+ + + + | PHOSPHORUS | 3.6 | 2.5 - 5.0 mg/dL | EXTERNAL | | | | | | LAB | | + +---------+ + + + | Albumin | 3.7 | 3.5 - 5.0 | EXTERNAL | | | | | | LAB | | + +---------+ + + + | Na | 141 | 132 - 143 | EXTERNAL | | | | | mmol/L | LAB | | + +---------+ + + + | K | 4.4 | 3.6 - 5.1 | EXTERNAL | | | | | mmol/L | LAB | | + +---------+ + + + | Cl | 99 | 95 - 112 mmol/L | EXTERNAL | | | | | | LAB | | + +---------+ + + + | CO2 | 28 | 19 - 31 mmol/L | EXTERNAL | | | | | | LAB | | + +---------+ + + + | Anion Gap | 18.4 | 7 - 21 mmol/L | EXTERNAL | | | | | | LAB | | + +---------+ + + + | eGFR if not | | | EXTERNAL | | | | | | LAB | | | FRENCH | | | | | + +---------+ + + + | Phosphorus, | | | EXTERNAL | | | Inorganic | | | LAB | | + +---------+ + + + | BUN/Creatin | 23.1 | 6 - 28.6 | EXTERNAL | | | ine Ratio | | | LAB | | + +---------+ + + + | Calcium | 9.5 | 8.5 - 10.3 | EXTERNAL | | | | | mg/dL | LAB | | + +---------+ + + + | Estimated | 97 | mg/dL | EXTERNAL | | | GFR | | | LAB | | + +---------+ + + + + + | Specimen | + + | Blood specimen | | (specimen) | + + + +---------+ + + | Performing | Address | City/State/Zipcode | Phone Number | | Organization | | | | + +---------+ + + | EXTERNAL LAB | | | | + +---------+ + + CBC no Differential (10/21/2017 12:00 AM PDT) + + + + + + | Component | Value | Ref Range | Performed | Pathologist | | | | | At | Signature | + + + + + + | WBC | 9.6 | 4.5 - 11 10 | EXTERNAL | | | | | | LAB | | + + + + + + | RED CELL | 4.33 | 3.8 - 5.1 10 | EXTERNAL | | | COUNT | | | LAB | | + + + + + + | Hgb | 13.1 | 12 - 16 g/dL | EXTERNAL | | | | | | LAB | | + + + + + + | Hematocrit, | 39.1 | 35 - 45 % | EXTERNAL | | | POC | | | LAB | | + + + + + + | MCV | 90.4 | 81 - 99 fL | EXTERNAL | | | | | | LAB | | + + + + + + | MCH | 30 | 27 - 33 pg | EXTERNAL | | | | | | LAB | | + + + + + + | MCHC | 34 | 30 - 36 g/dL | EXTERNAL | | | | | | LAB | | + + + + + + | RDW-CV | 15.8 (A) | 10.5 - 15 % | EXTERNAL | | | | | | LAB | | + + + + + + | Platelet | 394 | 140 - 440 K/ L | EXTERNAL | | | Count | | | LAB | | | Plasma | | | | | + + + + + + | MPV | | fL | EXTERNAL | | | | | | LAB | | + + + + + + + + | Specimen | + + | | + + + +---------+ + + | Performing | Address | City/State/Zipcode | Phone Number | | Organization | | | | + +---------+ + + | EXTERNAL LAB | | | | + +---------+ + + Iron and Iron Binding Capacity (10/21/2017 12:00 AM PDT) + + + + + + | Component | Value | Ref Range | Performed | Pathologist | | | | | At | Signature | + + + + + + | Iron | 36.52 (A) | 37 - 160 | EXTERNAL | | | | | | LAB | | + + + + + + | Iron | 80 (A) | 20 - 55 | EXTERNAL | | | Saturation | | | LAB | | + + + + + + | TIBC | 455 (A) | 245 - 400 | EXTERNAL | | | | | [...] | | | + +---------+ + + Microalbumin/Creatinine Ratio, Urine (10/21/2017 12:00 AM PDT) + + + + + + | Component | Value | Ref Range | Performed | Pathologist | | | | | At | Signature | + + + + + + | ALBUMIN/CRE | 1696.1 (A) | 0 - 30 | EXTERNAL | | | ATININE | | | LAB | | | RATIO.URINE | | | | | | .ORD.MG/G | | | | | | (KATIE) | | | | | | | [...] | | | + +---------+ + + T4, Free (10/21/2017 12:00 AM PDT) + +-------+ + + + | Component | Value | Ref Range | Performed | Pathologist | | | | | At | Signature | + +-------+ + + + | FREE T4 | 3.41 | 0.270 - 4.20 | EXTERNAL | | | (REF) | | | LAB | | + +-------+ + + + + + | Specimen | + + | Blood specimen | | (specimen) | + + + +---------+ + + | Performing | Address | City/State/Zipcode | Phone Number | | Organization | | | | + +---------+ + + | EXTERNAL LAB | | | | + +---------+ + + Ferritin (10/21/2017 12:00 AM PDT) + +-------+ + + + | Component | Value | Ref Range | Performed | Pathologist | | | | | At | Signature | + +-------+ + + + | Ferritin, | 54.59 | 13 - 150 ng/mL | EXTERNAL | | | External | [...] | | | + +---------+ + + Lipid Panel (10/21/2017 12:00 AM PDT) + +-------+ + + + | Component | Value | Ref Range | Performed | Pathologist | | | | | At | Signature | + +-------+ + + + | Cholesterol | 157 | mg/dL | EXTERNAL | | | | | | LAB | | + +-------+ + + + | Triglycerid | 127 | 30 - 150 mg/dL | EXTERNAL | | | es | | | LAB | | + +-------+ + + + | HDL | 55 | mg/dl | EXTERNAL | | | | | | LAB | | + +-------+ + + + | LDL | 77 | mg/dL | EXTERNAL | | | Cholesterol | | | LAB | | | , | | | | | | Calculated, | | | | | | External | | | | | + +-------+ + + + | LDl/HDL | | | EXTERNAL | | | Ratio | | | LAB | | + +-------+ + + + | Chol/HDL | 2.9 | | EXTERNAL | | | Ratio | | | LAB | | + +-------+ + + + | VLDL | 25 | 4 - 40 mg/dL | EXTERNAL | | | | | | LAB | | + +-------+ + + + | Non HDL | 102 | | EXTERNAL | | | Chol. | | | LAB | | | (LDL+VLDL) | | | | | + +-------+ [...]
--- OUTSIDE RECORDS SUMMARY | ~2019-06-14 | XMS | Encounter Summary ---
Demographics + + + | Address | [address] | | | [place] [address] | + + + | Home Phone [...] | | + + +---------+ + | Laan Newton | ECON | Unknown | | + + +---------+ + Care Team Providers + +------+ + | Care Industrial Relations Director Name | Role | Phone | + +------+ + PCP | Unavailable | + +------+ + Encounter Details +--------+ + + + + | Date | Type | Department | Care Team | Description | +--------+ + + + + | 05/02/ | Abstract | Digestive Health | Thania Cardenas, | | | 2012 | | [place] [facility] [address] | [facility] [address] | | | | | [address] | Ave [place], [place] | | | | | Mailcode: [place] | [address] | | | | | [facility] Health and | | | | | | [facility] [address] | | | | | | [facility] [place] | | | | | | [address] | | | | | | | [...]
--- OUTSIDE RECORDS SUMMARY | ~2019-06-14 | XMS | Encounter Summary ---
Demographics + + + | Address | [address] | | | [place] [address] | + + + | Home Phone | | + + + | Preferred Language | Unknown | + + + | Marital Status | Single | + + + | Sikhism Affiliation | NRP | + + + | Race | White | + + + | Ethnic Group | Not or | + + + Author + + + | Author | [facility] | + + + | Organization | [facility] | + + + | Address | [...] | + + +---------+ + | Lana Fombell | ECON | Unknown | | + + +---------+ + Care Team Providers + +------+ + | Care Trash Man Name | Role | Phone | + +------+ + | Bassam Ross DO | PCP | | + +------+ + Reason for Visit + + + | Reason | Comments | + + + | Follow-up visit | | + + + Benefits [...] | | | | | | | [facility] | | | | | | | Health and | | | | | | | Healing, | | | | | | | [address] | | | | | | | [place], [place] | | | | | | | [address] | | | | | | | Phone: | | | | | | | [phone] | | | | | | | Fax: | | | | | | | [phone] | +--------+--------+ + + + + Encounter Details +--------+---------+ + + + | Date | Type | Department | Care Team | Description | +--------+---------+ + + + | 01/04/ | Office | Digestive Health | Dori Fajardo, | Morbid obesity with | | 2014 | Visit | Center at [facility] [address] | MD | BMI of 60.0-69.9, | | | | [address] | | adult (HCC) (Primary | | | | Mailcode: Center | | Dx) | | | | for Health and | | | | | | Healing, [address] | | | | | | [place], [place] | | | | | | [address] | | | | | | [phone] | | | +--------+---------+ + + + [...] + + + | Blood Pressure | 135/84 | 01/04/2015 12:02 PM | | | | | PDT | | + + + + + | Pulse | 110 | 01/04/2015 12:02 PM | | | | | PDT | | + + + + + | Temperature | 36.8 C (98.2 F) | 01/04/2015 12:02 PM | | | | | PDT | | + + + + + | Respiratory Rate | 16 | 01/04/2015 12:02 PM | | | | | PDT | | + + + + + | Oxygen Saturation | 100% | 01/04/2015 12:02 PM | | | | | PDT | | + + + + + | Inhaled Oxygen | - | - | | | Concentration | | | | + + + + + | Weight | 183.1 kg (403 lb | 01/04/2015 12:02 PM | | | | 11.2 oz) | PDT | | + + + + + | Height | 162.6 cm (5' 4") | 01/04/2015 12:02 PM | | | | | PDT | | + + + + + | Body Mass Index | 69.29 | 01/04/2015 12:02 PM | | | | | PDT | | + + + + + documented in this encounter Progress Notes Dori Fajardo MD - 01/05/2015 7:45 AM PDTI saw and evaluated the patient and agree with the findings and plan as documented in the resident s note. I spent 20 minutes with the patient of which >50% of this time was in counseling and coordination of care. We discusse d her satisfactory weight loss thus far and preparations for her upcoming sleeve gastrectomy . DORI FAJARDO MD CHIEF, BARIATRIC SERVICES [facility] 6TH FLOOR [address] Mailcode: [place] [id number] akov Hill MD - 01/04/2015 1:28 PM PDT BARIATRIC SURGERY OFFICE VISIT DATE [...] atty liver disease obscuring safe dissection planes. It was determined that she needs to los e 25lbs to shrink her liver small enough to operate safely. Subjective: - 800 Calorie liquid diet with a small meal in the evening as per salon customer experience specialist instruction - 20 lb weight loss since last visit one month ago. 40 lb weight loss over the last year. - States she is retaining fluid despite 80mg of lasix daily - Frustrated with the dietary restriction, but determined to do whatever is necessary to go through with the operation. - Exercises 3x week walking 45 min. Helps her Dad with PT as well. Past Medical History Past Medical History Diagnosis Date Essential hypertension, [...] echo and chest xray findings. Followed by orthopedic surgeon in [place]. Poor intravenous access Past Surgical History Past Surgical History Procedure Laterality Date C section 1998 Tonsillectomy 1996 Knee surgery 1997 Gastric banding 2004, 2007, 2011 Skin and subcutaneous tissue surgery 2006 Foot surgery 2009 - 2011 3x Hysterectomies, vaginal 2009 Appendectomy for ruptured appendix with abscess 2012 Gallbladder surgery 2007 PHYSICAL EXAMINATION: BP 135/84 | Pulse 110 | Temp (Src) 36.8 C (98.2 F) (Oral) | RR 16 | Ht 1.626 m (5' 4") | Wt 183.117 kg (403 lb 11.2 oz) | SpO2 100% | BMI 69.26 kg/(m^2) GENERAL: sitting in chair, appears upset, intermittently tearful, nontoxic, NAD HEENT: NC, MMM SKIN: Evidence of venous stasis on BLE over medial malleolus. CHEST: Respirations even and unlabored. CARDIOVASCULAR: Extremities warm and well perfused. ABDOMEN: Obese, soft, non tender, well healed surgical scar EXTREMITIES: chronic venous stasis changes bilat LE NEUROLOGIC: Moves all extremities spontaneously. No apparent neurologic deficits. IMPRESSION: Aspen Darden is a 43 yo woman with MO, ANNABEL, and HTN s/p aborted laparoscopic sleeve gastrectomy on 08/24/14. She has met her weight loss goal and lost 20 lbs over the las t month with strict dietary changes and moderate exercise. Given her weight loss, we feel th at her hepatomegaly should be reduced making her a good candidate for sleeve gastrectomy daniella fall. We will schedule surgery for next month and I have encouraged the pt to remain strict to the dietitians guideline. All questions were answers and concerns addressed. PLAN: Schedule surgery Remain on VLCD lq diet for the next 30 days leading up to surgery. Maximo Enciso MA - 12:02 PM PDT Wt Readings from Last 3 Encounters: 01/04/15 183.117 kg (403 lb 11.2 oz) 12/04/14 190.738 kg (420 lb 8 oz) 11/10/14 190.511 kg (420 lb) documented in this enco unter Plan of Treatment Not on filedocumented as of this encounter Visit Diagnoses + + | Diagnosis | + + | Morbid obesity with BMI of 60.0-69.9, adult (HCC) - Primary | + + documented in this encounter
--- OUTSIDE RECORDS SUMMARY | ~2019-06-14 | XMS | Encounter Summary ---
Demographics + + + | Address | [address] | | | [place] [address] | + + + | Home Phone [...] Author + + + | Author | [facility] | + + + | Organization | [facility] | + + + | Address | [...] Team Providers + +------+ + | Care Wage And Hour Investigator Name | Role | Phone | + +------+ + | Bassam Ross DO | PCP | | + +------+ + Reason for Visit + + + | Reason | Comments | + + + | Car Gen Record | GEN Checklist | | Review | | + + + Encounter Details +--------+ + + + + | Date | Type | Department | Care Team | Description | +--------+ + + + + | 04/20/ | Abstract | Cardiology General | Unknown . | Car Gen Record | | 2018 | | at [facility] [address] | | Review (GEN | | | | [address] Mailcode: | | Checklist ) | | | | [address] | | | | | | Health and Healing, | | | | | | [address] | | | | | | Floor [place], [place] | | | | | | [address] | | | | | | [phone] | | | +--------+ + + + [...] documented as of this encounter Progress Notes Randi Rivera - 04/20/2018 12:06 PM PSTFormatting of this note might be different from [place]. General Cardiology New Patient Record Check List Procedure Where/Date Date requested Report received? Y/N, Where? Imaging received? CD/ IMPAX/Not Available Comments Referring Provider notes N/A Internal Referral Last EKG (REPORT ONLY) Note: Tracings needed if being seen for abnormal ECG [facility] N/A Last Echo images and report TTE [facility] Last Stress Test images and report Stress Echocardiogram [facility] Last Cardiac Catheterization images and report No Last Holter or Event monitor report only No N/A Labs (BMP, Lipids, TSH, Hemoglobin A1C in last 6 months) [facility] / [facility] N/A Last Device Check (schedule device check if due) No N/A Last Cardiac MRI report and images if available No Cardiac CTA report and images if available No Patient Preferred Lab [facility] N/A N/A N/A Additional Comments: documented in this encoun ter Plan of Treatment Not on filedocumented as of this encounter Visit Diagnoses Not on filedocumented in this encounter"
--- OUTSIDE RECORDS SUMMARY | ~2019-06-14 | XMS | Encounter Summary ---
Demographics + + + | Address | [address] | | | [place] [address] | + + + | Home Phone | | + + + | Preferred Language | Unknown | + + + | Marital Status | Single | + + + | Pentecostalism Affiliation | Unknown | + + + | Race | Unknown | + + + | Ethnic Group | Unknown | + + + Author + + + | Author | [facility] | | | and [place] | + + + | Organization | [facility] | | | [...] Team Providers + +------+ + | Care Anaesthetic Technician Name | Role | Phone | + +------+ + PCP | Unavailable | + +------+ + Encounter Details +--------+ + + + + | Date | Type | Department | Care Team | Description | +--------+ + + + + | 06/20/ | Hospital | [facility] | Isabel Lu | | | 1999 - | Encounter | [facility] | M, DO [address] | | | | | [facility] [address] | [address] | | | 06/21/ | | [place], | [place] | | | 1999 | | [place] [address] | [address] | | | | | [phone] | | | +--------+ + + + [...] [place] | | | | | | [address] | | | | | | | | +--------+---------+ + + + | 01/18/ | Office | Sleep Medicine | Jermaine Fairchild | | | 2020 | Visit | | MD Lars [address] [place] [address] | | | | | | [place] | | | | | | [place] [address] | | | | | | [phone] | | | | | | | | +--------+---------+ + + + documented as of this encounter Visit Diagnoses Not on filedocumented in this encounter"
--- OUTSIDE RECORDS SUMMARY | ~2019-06-14 | XMS | Encounter Summary ---
Demographics + + + | Address | [address] | | | [place] [address] | + + + | Home Phone [...] Team Providers + +------+ + | Care Marble Cutter Name | Role | Phone | [...] | Cardiology | Diagnoses | Rubi, | Montnaa, | | | | | Morbid | Yaritza Soria MD | Kath Jiménez, | | | | | obesity | [address] | PA-C [address] | | | | | (HCC) | [address] | [address] | | | | | Atrial | [place], [place] | [facility], [place] | | | | | fibrillation | [address] | [address] | | | | | , | Phone: | Phone: | | | | | unspecified | [phone] | [phone] | | | | | type (HCC) | Fax: | Fax: | | | | | Abnormal ECG | [phone] | [phone] | | | | | | | [...] | | 2019 | Visit | at [facility] [address] | EJULIETA [address] | (Primary Dx); | | | | [address] Mailcode: | [place] [facility], | Persistent atrial | | | | [facility] | [place] [address] | fibrillation ([facility]); | | | | Health and Healing, | [phone] | Essential | | | | [place] [address] [facility] | | hypertension; | | | | Floor [place], [place] | | Diabetes mellitus | | | | [address] | | type 2 in obese | | | | [phone] | | ([facility]); Pre-operative | | | | | [...] Pressure | 135/77 | 07/09/2018 1:47 PM | | | | | PST | | + + + + + | Pulse | 91 | 07/09/2018 1:47 PM | | | | | PST | | + + + + + | Temperature | 36.6 C (97.9 F) | 07/09/2018 1:47 PM | | | | | PST | | + + + + + | Respiratory Rate | - | - | | + + + + + | Oxygen Saturation | 91% | 07/09/2018 1:47 PM | | | | | PST | | + + + + + | Inhaled Oxygen | - | - | | | Concentration | | | | + + + + + | Weight | 180 kg (396 lb 14.4 | 07/09/2018 1:47 PM | | | | oz) | PST | | + + + + + | Height | 160 cm (5' 3") | 07/09/2018 1:47 PM | | | | | PST | | + + + + + | Body Mass Index | 70.31 | 07/09/2018 1:47 PM | | | | | PST | | + + + + + documented in this encounter Patient Instructions Patient Instructions Kath Malik PA-C - 07/09/2018 1:40 PM PST1. Your Cardiovasc ular risk is low. You are at risk for heart failure and your heart rate is under good contro l with diltiazem T documented in this encounter Progress Notes Kath Malik PA-C [...] 11%. KATH MALIK PA-C CARDIOLOGY GENERAL AT [facility] [address] Mailcode: [address] [place] [address] ischSavi tadeo PA-C - 07/09/2018 1:40 PM PSTFormatting of this note might be different from the or iginal. CARDIOLOGY ENCOUNTER NOTE Reason for Visit: This [...] DVT/PE Aspen reports a cardiac evaluation at [facility] in [place] for dental extrac tions. She had a [...] echo and chest xray findings. 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 Shortness of breath Thyroid disease Current Outpatient [...] Diabetes Father Hypertension Father Heart Disease Father [place] 78 Hypertension Mother Obesity Mother Social History [...] and no inducible ischemia Records reviewed from [facility] (see media tab and CareEverywhere): Echo 11/04/17: [...] There is no pericardial effusion.21. No mass [id number]. Poo r visualization. Definity was used to [...] calculator (one point for each "yes" answer) http://www.mdcalc.com/bgmedkl-rryimrh-pxjt-okcvi-qex-zbbtfjiyg-risk/ A. Elevated risk surgery?: yes B. Ischemic [...] sent to PCP Iqra Peralta MD and rhonda cortez provider/surgeon Yaritza Venegas MD CARDIOLOGY - PREVENTIVE [address] Mailcode: [facility] [address] documented in this encounter Plan of Treatment [...] + + documented in this encounter Results 12 LEAD ECG (07/09/2018 1:57 PM PST) + + + + + + | Component | Value | Ref Range | Performed | Pathologist | | | | | At | Signature | + + + + + + | VENTRICULAR | 99 | bpm | [facility] | | | RATE | | | OF | | | | | | CARDIOLOGY | | + + + + + + | ATRIAL RATE | 224 | ms | [facility] | | | | | | OF | | | | | | CARDIOLOGY | | + + + + + + | P-R | | ms | [facility] | | | INTERVAL | | | OF | | | | | | CARDIOLOGY | | + + + + + + | P AXIS | | deg | [facility] | | | | | | OF | | | | | | CARDIOLOGY | | + + + + + + | QRS | 95 | ms | [facility] | | | DURATION | | | OF | | | | | | CARDIOLOGY | | + + + + + + | QT | 362 | ms | [facility] | | | | | | OF | | | | | | CARDIOLOGY | | + + + + + + | QTC-AAMIR | 465 | ms | [facility] | | | | | | OF | | | | | | CARDIOLOGY | | + + + + + + | R AXIS | -54 | deg | [facility] | | | | | | OF | | | | | | CARDIOLOGY | | + + + + + + | T AXIS | 50 | deg | [facility] | | | | | | OF | | | | | | CARDIOLOGY | | + + + + + + | ECG | Atrial fibrillation | | [facility] | | | IMPRESSION | | | OF | | | | | | CARDIOLOGY | | + + + + + + | ECG | Paired ventricular | | [facility] | | | IMPRESSION | premature complexes- | | OF | | | | ABNORMAL ECG - | | CARDIOLOGY | | + + + + + + | ECG | Electronically signed | | [facility] | | | IMPRESSION | by: VANESSA RODRIGUEZ | | OF | | | | 07-09-2018 17:15:47 | | CARDIOLOGY | | + + [...] + + | SHERIE GARLANDT OF | [address] | [place], [place] | | | CARDIOLOGY | [address] | [address] | | + + + + + documented in this encounter Visit Diagnoses + + | Diagnosis | + + | Chest pain at rest - Primary Chest pain, unspecified | + + | Persistent atrial fibrillation Atrial fibrillation | + + | Essential hypertension | + + | Diabetes mellitus type 2 in obese (HCC) Type II or unspecified type diabetes mellitus | | without mention of complication, not stated as uncontrolled | + + | Pre-operative cardiovascular examination | + + documented in this encounter
--- OUTSIDE RECORDS SUMMARY | ~2019-06-14 | XMS | Encounter Summary ---
Demographics + + + | Address | [address] | | | [place] [address] | + + + | Home Phone [...] + | Author | [facility] | | | and [place] | + + + | Organization | [facility] | | [...] Team Providers + +------+ + | Care Boating Safety Officer Name | Role | Phone | + +------+ + | Bassam Ross DO | PCP | | + +------+ + Encounter Details +--------+ + + + + | Date | Type | Department | Care Team | Description | +--------+ + + + + | 10/10/ | [facility] | [facility] | Adolfo Zazueta, | Restrictive lung | | 2016 | Encounter | MED CTR PULMONARY | MD [address] | disease secondary to | | | | FUNCTION [address] | [place], [place] | obesity; Hypoxemia | | | | [place], | [address] | | | | | [place] [address] | | | | | | [phone] | | | +--------+ + + + [...] +---------+ + + | beclomethasone | Inhale 2 puffs into | 1 | 0 | 10/11/19 | | | (QVAR) 80 mcg/puff | the lungs 2 times | Inhaler | | 16 | 6 | | inhalerIndications: | daily. | | | | | | Mild persistent | | | | | | | asthma without | | | | | | | complication | | | | | | + [...] | | 0 | | | | T-Jaoslfrbxgdr-M02-B | mouth Daily. | | | | [...] + + + +---------+ + + | PARoxetine (PAXIL) | 40 mg every morning. | | 0 | 10/07/19 | | | 10 mg tablet | | | | 16 | 7 | + + + +---------+ + + [...] [place] | | | | | | [address] | | | | | | | | +--------+---------+ + + + | 01/18/ | Office | Sleep Medicine | Jermaine Fairchild | | | 2019 | Visit | | MD Jac Sousa Newton | | | | | | [address] | | | | | | [place] [address] | | | | | | [phone] | | | | | | | | +--------+---------+ + + + documented as of this encounter Procedures + +--------+ + + + | Procedure Name | Priori | Date/Time | Associated Diagnosis | Comments | | | ty | | | | + +--------+ + + + | DIAGNOSTIC REPORT - | | 10/10/2105 | | Results for this | | EXTERNAL SCAN | | 12:00 AM | | procedure are in the | | | | PST | | results section. | + +--------+ + + + | PFT PULMONARY | LUIS ENRIQUE | 10/11/2015 | Restrictive lung | Results for this | | FUNCTION TESTING | | 2:35 PM | disease secondary to | procedure are in the | | ORDERS | | PDT | obesity Hypoxemia | results section. | + +--------+ + + + documented in this encounter Results DIAGNOSTIC REPORT - EXTERNAL SCAN (10/10/2105 12:00 AM PST) + + + | Narrative | Performed At | + + + | Ordered by an | | | unspecified provider. | | + + + PFT PULMONARY FUNCTION TESTING ORDERS Full PFT (Cecil w/BD, lung volumes, diffusion)?: Yes (10/11/2015 2:35 PM PDT) + + + | Narrative | Performed At | + + + | Adolfo Zazueta MD 10/11/2015 14:35 PULMONARY FUNCTION | | | TESTING SPIROMETRY: The FVC was 2.73 L or 88 % of predicted. The | | | FEV1 was 2.14 L or 83 % of predicted. FEV1/FVC ratio was 78 %. | | | LUNG VOLUMES: The total lung capacity was 4.55 L or 96 % of | | | predicted. The residual volume was 1.70 L or 105 % of predicted. | | | RV/TLC ratio was 110 % of predicted. DIFFUSION CAPACITY: The | | | diffusion capacity was 23.2 mL/mmHg per minute or 93 % of predicted. | | | IMPRESSION: Spirometry is consistent with normal physiology. | | | Lung volume testing is consistent with normal physiology. Diffusion | | | capacity is within normal limits and is not corrected for measured | | | hemoglobin. The patient's previously appreciated moderate | | | restrictive changes (prebronchodilator forced vital capacity 1.85, | | | 59% of predicted and total lung capacity 3.60, 76% of predicted) | | | appears to have resolved with weight loss of approximately 90 | | | pounds. Test performed: 10/11/15 Electronically signed by: | | | Adolfo Zazueta MD 10/11/2015 14:33 [facility] | | | [facility] | | + + + documented in this encounter Visit Diagnoses + + | Diagnosis | + + | Restrictive lung disease secondary to obesity Other diseases of lung, not elsewhere | | classified | + + | Hypoxemia | + + documented in this encounter"
--- OUTSIDE RECORDS SUMMARY | ~2019-06-14 | XMS | Encounter Summary ---
Demographics + + + | Address | [address] | | | [place] [address] | + + + | Home Phone | | + + + | Preferred Language | Unknown | + + + | Marital Status | Single | + + + | Advent Affiliation | NRP | + + + [...] | + + +---------+ + | Lana [place] | ECON | Unknown | | + + +---------+ + Care Team Providers + +------+ + | Care Camera Person Name | Role | Phone | [...] | Cardiology | Diagnoses | Theresa, | Loya, | | | | | Morbid | RENETTA Kebede | Sheila Figueroa, | | | | | obesity with | [address] | PA-C [address] | | | | | BMI of [address] | [address] | | | | | and over, | [place], [place] | [place], [place] | | | | | adult (HCC) | [address] | [address] | | | | | Procedures | Phone: | Phone: | | | | | CONSULT TO | [phone] | [phone] | | | | | CARDIOLOGY | Fax: | Fax: | | | | | | [phone] | [phone] | +--------+--------+ + + + + Consultation (Routine) +--------+--------+ + + + + | Status | Reason | Specialty | Diagnoses / | Referred By | Referred To | | | | | Procedures | Contact | Contact | +--------+--------+ + + + + | Closed | | Pain | Diagnoses | Tilgner, | Splash Line Operator Psych | | | | Management | Morbid | RENETTA Kebede | [facility] [address] | | | | | obesity with | [address] | [address] | | | | | BMI of [address] | Mailcode: | | | | | and over, | [place], [place] | [address] | | | | | adult ([facility]) | [address] | for Health | | | | | Procedures | Phone: | and Healing, | | | | | CONSULT TO | [phone] | Building 1, | | | | | PAIN CENTER | Fax: | 15th Floor | | | | | | [phone] | [place], [place] | | | | | | | [address] | | | | | | | Phone: | | | | | | | [phone] | | | | | | | Fax: | | | | | | | [phone] | +--------+--------+ + + + + Encounter Details +--------+ + + + + | Date | Type | Department | Care Team | Description | +--------+ + + + + | 09/27/ | Trucking Manager | Digestive Health | Thania Cardenas, | Morbid obesity with | | 2013 | | Center at [facility] [address] | ACNP [address] | BMI of 70 and over, | | | | [address] | [facility] [place] | adult (HCC) (Primary | | | | Mailcode: [place] | [address] | Dx) | | | | for Health and | | | | | | [facility] | | | | | | [facility] [place] | | | | | | [address] | | | | | | | [...]
--- OUTSIDE RECORDS SUMMARY | ~2019-06-14 | XMS | Encounter Summary ---
Demographics + + + | Address | [address] | | | [place] [address] | + + + | Home Phone [...] Team Providers + +------+ + | Care Composition Roofer Name | Role | Phone | + +------+ + | Iqra Peralta MD | PCP | | + +------+ + Encounter Details +--------+ + + + + | Date | Type | Department | Care Team | Description | +--------+ + + + + | 02/16/ | Orders Only | [facility] | Sangeetha, | Nephrotic syndrome | | 2018 | | NEPHROLOGY [address] | [address] | (Primary Dx); | | | | [address] [address] | [address], [place] | Hypertension, | | | | [place], [place] | [address] [place], [place] | unspecified type | | | | [address] | [address] | | | | | [phone] | | | +--------+ + + + [...] documented as of this encounter Progress Notes Nettie Herrera RN - 02/16/2018 10:39 AM [facility] for upcoming nephrology appointment sent to: [facility] documented in this encounter Plan of Treatment +--------+---------+ + + + | Date | Type | Specialty | Care Team | Description | +--------+---------+ + + + | 06/14/ | Office | Pulmonology | Adolfo Zazueta, | | | 2019 | Visit | | MD Jac JOHNSON | | | | | | [place] | | | | | | [address] | | | | | | | | +--------+---------+ + + + | 01/18/ | Office | Sleep Medicine | Jermaine Fairchild | | | 2019 | Visit | | MD Lars [address] | | | | | | [place] [facility] | | | | | | [place] [address] | | | | | | [phone] | | | | | | | | +--------+---------+ + + + documented as of this encounter Visit Diagnoses + + | Diagnosis | + + | Nephrotic syndrome - Primary Nephrotic syndrome with unspecified pathological lesion | | in kidney | + + | Hypertension, unspecified type | + + documented in this encounter"
--- OUTSIDE RECORDS SUMMARY | ~2019-06-14 | XMS | Encounter Summary ---
Demographics + + + | Address | [address] | | | [place] [address] | + + + | Home Phone | | + + + | Preferred Language | Unknown | + + + | Marital Status | Single | + + + | Sabianist Affiliation | Unknown | + + + | Race | Unknown | + + + | Ethnic Group | Unknown | + + + Author + + + | Author | [facility] | | | and [place] | + + + | Organization | [facility] | | [...] Team Providers + +------+ + | Care Neurological Surgery Teacher Name | Role | Phone | + +------+ + | Iqra Peralta MD | PCP | | + +------+ + Encounter Details +--------+ + + + + | Date | Type | Department | Care Team | Description | +--------+ + + + + | 03/10/ | [facility] | [facility] | Yonatan Gonzalez | | | 2018 | Encounter | [facility] | [place] [address] | | | | | [address] | [address] | | | | | [place], [place] | [place] [address] | | | | | [address] | [phone] | | | | | [phone] | | | +--------+ + + + [...] + + +---------+ + + | [place] [id number] | apply topically to | | 0 [...] Progress Notes Conversion Transaction, Provider Unknown - 03/10/2018 6:18 PM PDTFormatting of this note m ight be different from the original. Progress Notes by Anny Milner RPH at 03/10/181817 Author: Anny Milner RPH Service: Pharmacy Author Type: Pharmacist Filed: 03/10/181817 Date of Service: 03/10/181817 Status: Signed Language Arts Teacher: Anny Milner RPH (Pharmacist) Renal Dosing Monitoring: Aspen Darden 47 y.o. female Pharmacy dosing for renal function per Dr. Gonzalez Crcl~123.7ml/min Plan per protocol: Medication / Dose: no medications need renal adjustments at this time. Pharmacy will continue monitoring patient for appropriate dosing per renal function. 03/10/2018 6:17 PM Pharmacist: Anny Milner docume nted in this encounter Plan of Treatment +--------+---------+ + + + | Date | Type | Specialty | Care Team | Description | +--------+---------+ + + + | 06/14/ | Office | Pulmonology | Adolfo Zazueta, | | | 2019 | Visit | | MD Jac JOHNSON | | | | | | [place] | | | | | | [address] | | | | | | | | +--------+---------+ + + + | 01/18/ | Office | Sleep Medicine | Jermaine Fairchild | | | 2019 | Visit | | MD Lars [address] | | | | | | [address] | | | | | | [place] [address] | | | | | | [phone] | | | | | | | | +--------+---------+ + + + documented as of this encounter Procedures + +--------+ + + + | Procedure Name | Priori | Date/Time | Associated Diagnosis | Comments | | | ty | | | | + +--------+ + + + | POC GLUCOSE | Routin | 03/10/2018 | | Results for this | | | e | 1:28 PM | | procedure are in the | | | | PDT | | results section. | + +--------+ + + + documented in this encounter Results POC Glucose (03/10/2018 1:28 PM PDT) + + + + + + | Component | Value | Ref Range | Performed | Pathologist | | | | | At | Signature | + + + + + + | Glucose, | 134 (H)Comment: Testing | 65 - 99 mg/dL | EXTERNAL | | | Fingerstick | performed at [facility] | | LAB | | | | [address];[place], [place] | | | | | | [address] | | | | + + + [...]
--- OUTSIDE RECORDS SUMMARY | ~2019-06-14 | XMS | Encounter Summary ---
Demographics + + + | Address | [address] | | | [place] [address] | + + + | Home Phone [...] | + + +---------+ + | Lana [place] | ECON | Unknown | | + + +---------+ + Care Team Providers + +------+ + | Care Manager Biostatistics Name | Role | Phone | + [...] 12/26/ | Telephone | Digestive Health | Dori Reed, | Follow-up encounter | | 2014 | | Center at [facility] [address] | | | | | | [address] | | | | | | Mailcode: [place] | | | | | | for Health and | | | | | | [facility] | | | | | | [place], [place] | | | | | | [address] | | | | | | [phone] | | | +--------+ + + + [...]
--- OUTSIDE RECORDS SUMMARY | ~2019-06-14 | XMS | Encounter Summary ---
Demographics + + + | Address | [address] | | | [place] [address] | + + + | Home Phone [...] | + + +---------+ + | Lana Mcallen | ECON | Unknown | | + + +---------+ + Care Team Providers + +------+ + | Care Cap And Stud Machine Operator Name | Role | Phone | + +------+ + | Bassam Ross DO | PCP | | + +------+ + Encounter Details +--------+ + + + + | Date | Type | Department | Care Team | Description | +--------+ + + + + | 07/28/ | Abstract | Digestive Health | Mattar, Samer G, | | | 2014 | | [place] [facility] [address] | | | | | | [address] | | | | | | Mailcode: [place] | | | | | | for Health and | | | | | | Healing, Building [address] | | | | | | [place], [place] | | | | | | [address] | | | | | | [phone] | | | +--------+ + + + [...]
--- OUTSIDE RECORDS SUMMARY | ~2019-06-14 | XMS | Encounter Summary ---
Demographics + + + | Address | [address] | | | [place] [address] | + + + | Home Phone [...] Providers + +------+ + | Care Manager Pathology Name | Role | Phone | + [...] | +--------+ + + + + | 03/08/ | Telephone | [facility] [place] | [place], | Nephrology | | 2018 | | NEPHROLOGY [address] | [address] | Appointment | | | | [address] | [address], [place] | | | | | [place], [place] | [address] [place], [place] | | | | | [address] | [address] | | | | | [phone] | | | +--------+ + + + [...] | | 2020 | Visit | | [address] | | | | | | [place] | | | | | | [address] | | | | | | | | +--------+---------+ + + + | 01/18/ | Office | Sleep Medicine | Jermaine Fairchild | | | 2020 | Visit | | MD Lars [address] | | | | | | [address] | | | | | | [place] [address] | | | | | | [phone] | | | | | | | | +--------+---------+ + + + documented as of this encounter Visit Diagnoses Not on filedocumented in this encounter"
--- OUTSIDE RECORDS SUMMARY | ~2019-06-14 | XMS | Encounter Summary ---
Demographics + + + | Address | [address] | | | [place] [address] | + + + | Home Phone | | + + + | Preferred Language | Unknown | + + + | Marital Status | Single | + + + | Pentecostal Affiliation | Unknown | + + + | Race | Unknown | + + + | Ethnic Group | Unknown | + + + Author + + + | Author | [facility] | | | and [place] | + + + | Organization | [facility] | | | and [...] Team Providers + +------+ + | Care Bead Wire Insulator Name | Role | Phone | + [...] | | | Pulmonology | obstructive | [address] | [address] | | | | | pulmonary | [address] | [place], | | | | | disease, | [address] | [place] [address] | | | | | unspecified | 3-106 | Phone: | | | | | (HCC) | [place] | [phone] | | | | | Obstructive | [address] | Fax: | | | | | sleep apnea | Phone: | [phone] | | | | | (adult) | [phone] | | | | | | (pediatric) | | | | | | | Procedures | | | | | | | F/U | | | +--------+--------+ + + + + Encounter Details +--------+---------+ + + + | Date | Type | Department | Care Team | Description | +--------+---------+ + + + | 09/20/ | Office | [facility] | Adolfo Zazueta, | Restrictive lung | | 2016 | Visit | PULMONARY [address] | MD [address] | disease secondary to | | | | [place], | [place], [place] | obesity (Primary | | | | [place] [address] | [address] | Dx); Obstructive | | | | [phone] | | sleep apnea; | | | | | | Hypoxemia; Mild | | | | | | intermittent asthma | | | | | | [...] + + + | Blood Pressure | 118/80 | 09/21/2015 12:46 PM | | | | | PDT | | + + + + + | Pulse | 96 | 09/21/2015 12:46 PM | | | | | PDT | | + + + + + | Temperature | - | - | | + + + + + | Respiratory Rate | - | - | | + + + + + | Oxygen Saturation | 97% | 09/21/2015 12:46 PM | | | | | PDT | | + + + + + | Inhaled Oxygen | - | - | | | Concentration | | | | + + + + + | Weight | 164.9 kg (363 lb 9.6 | 09/21/2015 12:46 PM | | | | oz) | PDT | | + + + + + | Height | 157.5 cm (5' 2") | 09/21/2015 12:46 PM | | | | | PDT | | + + + + + | Body Mass Index | 66.5 | 09/21/2015 12:46 PM | | | | | PDT | | + + + + + documented in this encounter Patient Instructions Patient Instructions Adolfo Zazueta MD - 09/21/2015 1:10 PM PDT Please increase Ventolin use till follow up in 2 weeks. Controlling Your Asthma You can do a lot to manage your asthma and improve your quality of life.[facility] to develop a plan. But it s up to you to put this pl an into action. Why You Need to Take Control You need to control the inflammation in your lungs. You also need torelieve symptoms when you have them. These arelong-term tasks. But the more you stay in control, the better you ll feel. If you don t stay in control: Asthma symptomsmay cause you tomiss school, work, or activities that you enjoy. Asthma flare-ups can be dangerous, even deadly. Uncontrolled asthma makes it more likely that you will need emergency department and in- hospital care. Uncontrolled asthma may cause permanent damage to your lungs. Peak flow monitoring helps measure how open your airways are. Taking medication helps you control your asthma and relieve symptoms when they occur. Usingan Asthma Action Planwill help you keep track of and respond to asthma symptoms. Avoiding triggers the things that inflame your airways will help prevent symptoms and f lare-ups. Your Action Plan Your health care provider will help you prepare, and when needed, update and Asthma Action Plan. Your plan tells you what to do based on your current symptoms. If you don't have an As thma Action Plan, or if yours isn't up-to-date, make sure you talk with your health care pro vider. [id number] [employer]. [address] [place] [address], [place] [address]. All righ ts reserved. This information is not intended as a substitute for professional medical care. Always follow your healthcare professional's instructions. documented in this encounter Progress Notes Adolfo Zazueta MD - 09/21/2015 12:56 PM PDTFormatting of this note might be different f rom the original. Pulmonary Clinic Follow Up 09/21/2015 BRISEIDA Anthonybreana Gonsalez Adelso is a 45 y.o. female patient of Bassam Ross, DO here today for follow up of s hortness of breath, restrictive lung disease and obstructive sleep apnea. It has been 3 weeks since our last clinic appointment. At their last visit, we established a plan to perform nocturnal oximetry on CPAP alone and walking oximetry. Since the last visit she feels like their symptoms are stable. They have have not had any recent episodes of "bronchitis-like" symptoms. To treat their asthma they are currently on a regimen of as needed Ventolin. They do feel like this medication regimen is working for them. They do not report the presence of side ef fects from these medication(s). The patient is using Ventolin once every 2 3 days. She i s not using her DuoNeb. Currently Aspen Darden is able to walk 1 block at their own pace on level ground before d eveloping symptoms. They are exercising regularly. Their typical exercise consists of walkin g one hour per day. They are not enrolled in cardiac/pulmonary rehabilitation. She does not cough chronically, and does not produce mucous. They have not had hemoptysis s faisal our last appointment. She has been evaluated for nocturnal oxygen and does qualify for use. They are currently on CPAP plus oxygen at 2 LPM at night. They report oxygen use 8 or so hrs. per day. She does not had symptoms of heartburn or reflux. They have not had symptoms of nasal conge stion or post nasal drip. The patient's weight is up nearly 6 pounds since our last clinic appointment. Past Medical [...] diagnosis MRSA (methicillin resistant Staphylococcus aureus) septicemia ([facility]) left foot source Fracture, humeral 2012 Allergies: [...] if needed for pain, Disp: , Rfl: H-Tpyaoeaeyozr-[id number] (CEREFOLIN) 6-1-50-5 MG TABS, Take by mouth., Disp: , Rfl: levothyroxine (SYNTHROID, LEVOTHROID) 75 MCG tablet, Take one tablet daily, Disp: , Rf l: 1 pramipexole (MIRAPEX) 1.5 MG tablet, Take 75 [...] Denies urticaria or allergic rashes. Objective BP 118/80 mmHg | Pulse 96 | Ht 1.575 m (5' 2") | Wt 164.928 kg (363 lb 9.6 oz) | BMI 66.49 kg/m2 | SpO2 97% | ? No [...] Extremities: Extremities normal, atraumatic, no cyanosis, clubbing. none edema Skin: Warm and dry Lymph nodes: Cervical and supraclavicular nodes normal Neurologic: Gait normal Data: Exertional oximetry performed . The patient walked approximately 650 feet o ella 6 minutes. With walking and talking she desaturated to a low of 87%. Next category B nocturnal oximetry nocturnal oximetry performed on CPAP and room air provid ed a mixed picture. For a significant portion of the night the patient's O2 saturation was above 90%. They're short periods of time in which it is at or slightly below 90% and period s of time in which is markedly low (as low as 50%). The patient denies that the apparatus b ecame dislodged or that she has had significant leakage of her CPAP mask. Assessment 1. Restrictive lung disease poor function tests from late December 2013 (prior to bariatri c surgery) showed moderate restrictive changes with a normal diffusion capacity. No signifi cant oxygen desaturation was noted with exertion at that time. Today exertional oximetry (and talking) shows desaturation down to 87%. The patient's weig ht is significantly lower status post bariatric surgery by 85 pounds. I would expect her re strictive changes and its impact on ventilation to have improved. This raises the possibili ty of another process causing the desaturation. 2. Query asthma despite the patient's subjective response to albuterol it seems less lik john that significant asthma is contributing to oxygen desaturation. I have asked Ms. Darden to increase her use of Ventolin between now and her follow-up appoint ment. It'll be interesting to see if this significantly improves the patient symptoms. 3. Obstructive sleep apnea excellent compliance with CPAP. No excessive daytime fatigue . Plan 1. Repeat nocturnal oximetry on CPAP alone (room air). 2. Repeat spirometry, lung volumes and diffusion capacity. 3. Increase use of albuterol as described above. 4. Pulmonary clinic follow-up appointment to review the above-noted response to therapy in test results in 2 weeks' time. CC: Bassam Ross DO documented [...] | | | | | [place] [address] | | | | | | [phone] | | | | | | | [...] | e | disease secondary to | 09/21/2015, Expires: | | | | | obesity Hypoxemia | 09/20/2016 | + + +--------+ + + documented as of this encounter Results PFT PULMONARY FUNCTION TESTING ORDERS Full PFT (Central w/BD, lung volumes, diffusion)?: Yes (10/11/2015 2:35 [...] | | Adolfo Zazueta MD 10/11/2015 14:33 [facility] | | | [facility] | | + + + documented in this encounter Visit Diagnoses + + | Diagnosis | + + | Restrictive lung disease secondary to obesity - Primary Other diseases of lung, not | | elsewhere classified | + + | Obstructive sleep apnea Obstructive sleep apnea (adult) (pediatric) | + + | Hypoxemia | + + | Mild intermittent asthma without complication Unspecified asthma | + + documented in this encounter
--- OUTSIDE RECORDS SUMMARY | ~2019-06-14 | XMS | Encounter Summary ---
Demographics + + + | Address | [address] | | | [place] [address] | + + + | Home Phone [...] | + + +---------+ + | [place] | ECON | Unknown | | + + +---------+ + Care Team Providers + +------+ + | Care Studio Camera Operator Name | Role | Phone | + +------+ + | Bassam Ross DO | PCP | | + +------+ + Encounter Details +--------+ + + + + | Date | Type | Department | Care Team | Description | +--------+ + + + + | 03/20/ | MyChart | [facility] | Gera Bowers, | next step | | 2013 | Encounter | [facility] at | PhD [address] | | | | | [facility] | [facility] [place] | | | | | [address] | [address] | | | | | Mailcode: [id number] | [phone] | | | | | [facility] | | | | | | and Healing, | | | | | | Building | | | | | | Floor [place], [place] | | | | | | [address] | | | | | | [phone] | | | +--------+ + + + [...]
--- OUTSIDE RECORDS SUMMARY | ~2019-06-14 | XMS | Encounter Summary ---
Demographics + + + | Address | [address] | | | [place] [address] | + + + | Home Phone [...] Team Providers + +------+ + | Care Behavioral Science Chair Name | Role | Phone | + +------+ + | Bassam Ross DO | PCP | | + +------+ + Reason for Visit + + + | Reason | Comments | + + + | Lab Results | | + + + Encounter Details +--------+ + + + + | Date | Type | Department | Care Team | Description | +--------+ + + + + | 01/25/ | Abstract | Cardiology | Juan Antonio Mclaughlin, | Lab Results | | 2018 | | [facility]ive at [facility] | [address] | | | | | [address] | [place], [place] | | | | | Mailcode: [facility] | [address] | | | | | [facility] | [phone] | | | | | and [place], | | | | | | [address] | | | | | | [place], [place] | | | | | | [address] | | | | | | [phone] | | | +--------+ + + + [...] + +--------+ + + + | HEMOGLOBIN | Routin | 01/20/2018 | | Results for this | | | e | | | procedure are in the | | | | | | results section. | + +--------+ + + + | COMPLETE METABOLIC | Routin | 01/20/2018 | | Results for this | | SET | e | | | procedure are in the | | (NA,K,CL,CO2,BUN,CRE | | | | results section. | | AT,GLUC,CA,AST,ALT,B | | | | | | JAYCEE TOTAL,ALK | | | | | | PHOS,ALB,PROT TOTAL) | | | | | + +--------+ + + + | LIPID SET (TRIG, T | Routin | 01/20/2018 | | Results for this | | CHOL, HDL, CALC LDL) | e | | | procedure are in the | | | | | | results section. | + +--------+ + + + documented in this encounter Results HEMOGLOBIN (01/20/2018) + +-------+ + + + | Component | Value | Ref Range | Performed | Pathologist | | | | | At | Signature | + +-------+ + + + | HEMOGLOBIN | 6.0 | % | [facility] | | | A1C | | | LAB - | | | | | | [place] | | + +-------+ + + + | ESTIMATED | 126 | mg/dL | [facility] | | | AVERAGE | | | LAB - | | | GLUCOSE | | | [place] | | + +-------+ + + + + + | Specimen | + + | Blood - Blood | | (substance) | + + + + + + + | Performing | Address | City/State/Zipcode | Phone Number | | Organization | | | | + + + + + | [facility] - | [address] | [place] [address] | [phone] | | [place] | [address] | | | + + + + + COMPLETE METABOLIC SET (NA,K,CL,CO2,BUN,CREAT,GLUC,CA,AST,ALT,BILI TOTAL,ALK PHOS,ALB,PROT TOTAL) (01/20/2018) + +---------+ + + + | Component | Value | Ref Range | Performed | Pathologist | | | | | At | Signature | + +---------+ + + + | GLUCOSE, | 122 (A) | 70 - 100 mg/dL | [facility] | | | PLASMA | | | LAB - | | | (LAB) | | | [place] | | + +---------+ + + + | BUN, PLASMA | 15 | mg/dL | [facility] | | | (LAB) | | | LAB - | | | | | | [place] | | + +---------+ + + + | CREATININE | 0.65 | mg/dL | [facility] | | | PLASMA | | | LAB - | | | (LAB) | | | [place] | | + +---------+ + + + | TOTAL | 6.3 | g/dL | [facility] | | | PROTEIN, | | | LAB - | | | PLASMA | | | [place] | | | (LAB) | | | | | + +---------+ + + + | ALBUMIN, | 3.9 | g/dL | [facility] | | | PLASMA | | | LAB - | | | (LAB) | | | [place] | | + +---------+ + + + | CALCIUM, | 9.5 | mg/dL | [facility] | | | PLASMA | | | LAB - | | | (LAB) | | | [place] | | + +---------+ + + + | BILIRUBIN | 0.6 | Transcutaneous | [facility] | | | TOTAL | | Bilirubinometer | LAB - | | | | | | [place] | | + +---------+ + + + | ALK PHOS | 94 | U/L | [facility] | | | | | | LAB - | | | | | | [place] | | + +---------+ + + + | AST(SGOT) | 16 | U/L | [facility] | | | | | | LAB - | | | | | | [place] | | + +---------+ + + + | SODIUM, | 141 | mmol/L | [facility] | | | PLASMA | | | LAB - | | | (LAB) | | | [place] | | + +---------+ + + + | POTASSIUM, | 4.4 | mmol/L | [facility] | | | PLASMA | | | LAB - | | | (LAB) | | | [place] | | + +---------+ + + + | CHLORIDE, | 99 | mmol/L | [facility] | | | PLASMA | | | LAB - | | | (LAB) | | | [place] | | + +---------+ + + + | TOTAL CO2, | 28 | mmol/L | [facility] | | | PLASMA | | | LAB - | | | (LAB) | | | [place] | | + +---------+ + + + | ALT (SGPT) | 19 | U/L | [facility] | | | | | | LAB - | | | | | | [place] | | + +---------+ + + + | ANION GAP | 18.4 | | [facility] | | | | | | LAB - | | | | | | [place] | | + +---------+ + + + | ESTIMATED | 97 | | [facility] | | | GFR | | | LAB - | | | | | | [place] | | + +---------+ + + + | GLOBULIN | 2.4 | | [facility] | | | | | | LAB - | | | | | | [place] | | + +---------+ + + + [...] | + + + + + | [facility] - | [address] | [place] [address] | [phone] | | [place] | [address] | | | + + + + + LIPID SET (TRIG, T CHOL, HDL, CALC LDL) (01/20/2018) + +---------+ + + + | Component | Value | Ref Range | Performed | Pathologist | | | | | At | Signature | + +---------+ + + + | CHOLESTEROL | 209 (A) | 200 mg/dL | [facility] | | | (LAB) | | | LAB - | | | | | | [place] | | + +---------+ + + + | TRIGLYCERID | 87 | | [facility] | | | ES | | | LAB - | | | | | | [place] | | + +---------+ + + + | HDL | 89.2 | mg/dL | [facility] | | | CHOLESTEROL | | | LAB - | | | | | | [place] | | + +---------+ + + + | LDL | 102 (A) | 100 mg/dL | [facility] | | | CHOLESTEROL | | | LAB - | | | , | | | [place] | | | CALCULATED | | | | | + +---------+ + + + | VLDL | 17 | 30 mg/dL | [facility] | | | CHOLESTEROL | | | LAB - | | | | | | [place] | | + +---------+ + + + + + | Specimen | + + | Blood - Blood | | (substance) | + + + + + + + | Performing | Address | City/State/Zipcode | Phone Number | | Organization | | | | + + + + + | [facility] - | [address] | [place] [address] | [phone] | | [place] | [address] | | | + + + + + documented in this encounter Visit Diagnoses Not on filedocumented in this encounter"
--- OUTSIDE RECORDS SUMMARY | ~2019-06-14 | XMS | Encounter Summary ---
Demographics + + + | Address | [address] | | | [place] [address] | + + + | Home Phone [...] Team Providers + +------+ + | Care Fur Coat Sewer Name | Role | Phone | + +------+ + | Iqra Peralta MD | PCP | | + +------+ + Encounter Details +--------+ + + + + | Date | Type | Department | Care Team | Description | +--------+ + + + + | 04/12/ | Orders Only | [facility] | Conversion | | | 2018 | | NEPRHOLOGY [place] | Transaction, | | | | | [address] | Provider Unknown | | | | | [address] [place], [place] | [phone] | | | | | [address] | | | | | | [phone] | | | +--------+ + + + [...] [place] | | | | | | [address] | | | | | | | | +--------+---------+ + + + | 01/18/ | Office | Sleep Medicine | Jermaine Fairchild | | 2019 | Visit | | MD Jac Sousa | | | | | | [address] [place] | | | | | | [place] [address] | | | | | | [phone] | | | | | | | | +--------+---------+ + + + documented as of this encounter Procedures + +--------+ + + + | Procedure Name | Priori | Date/Time | Associated Diagnosis | Comments | | | ty | | | | + +--------+ + + + | RENAL FUNCTION PANEL | Routin | 04/12/2018 | | Results for this | | | e | 12:00 AM | | procedure are in the | | | | PST | | results section. | + +--------+ + + + documented in this encounter Results Renal Function Panel (04/12/2018 12:00 AM PST) + + + + + + | Component | Value | Ref Range | Performed | Pathologist | | | | | At | Signature | + + + + + + | Glucose, | 177 (A) | 70 - 100 mg/dL | [facility]TERNAL | | | Fasting | | | LAB | | + + + + + + | BUN | 18 | 6 - 23 mg/dL | EXTERNAL | | | | | | LAB | | + + + + + + | Creatinine | 0.61 | 0.60 - 1.35 | EXTERNAL | | | | | mg/dL | LAB | | + + + + + + | PHOSPHORUS | 3.6 | 2.5 - 5.0 mg/dL | EXTERNAL | | | | | | LAB | | + + + + + + | Albumin | 3.6 | 3.5 - 5.0 | EXTERNAL | | | | | | LAB | | + + + + + + | Na | 142 | 132 - 143 | EXTERNAL | | | | | mmol/L | LAB | | + + + + + + | K | 4.3 | 3.6 - 5.1 | EXTERNAL | | | | | mmol/L | LAB | | + + + + + + | Cl | 102 | 95 - 112 mmol/L | EXTERNAL | | | | | | LAB | | + + + + + + | CO2 | 25 | 19 - 31 mmol/L | EXTERNAL | | | | | | LAB | | + + + + + + | Anion Gap | 19.3 | 7 - 21 mmol/L | EXTERNAL | | | | | | LAB | | + + + + + + | eGFR if not | | | EXTERNAL | | | | | | LAB | | | CUBAN | | | | | + + + + + + | Phosphorus, | | | EXTERNAL | | | Inorganic | | | LAB | | + + + + + + | BUN/Creatin | 29.5 (A) | 6 - 28.6 | EXTERNAL | | | ine Ratio | | | LAB | | + + + + + + | Calcium | 9.6 | 8.5 - 10.3 | EXTERNAL | | | | | mg/dL | LAB | | + + + + + + | Estimated | 104 | mg/dL | EXTERNAL | | | [...]
--- OUTSIDE RECORDS SUMMARY | ~2019-06-14 | XMS | Encounter Summary ---
Demographics + + + | Address | [address] | | | [place] [address] | + + + | Home Phone [...] | + + +---------+ + | [place] | ECON | Unknown | | + + +---------+ + Care Team Providers + +------+ + | Care Investment Specialist Name | Role | Phone | + +------+ + | Iqra Peralta MD | PCP | | + +------+ + Encounter Details +--------+ + + + + | Date | Type | Department | Care Team | Description | +--------+ + + + + | 04/23/ | Pharmacy | Outpatient Retail | | | | 2019 | Visit | [facility] | | | | | | [address] | | | | | | [place], [place] | | | | | | [address] | | | | | | [phone] | | | +--------+ + + + [...]
--- OUTSIDE RECORDS SUMMARY | ~2019-06-14 | XMS | Encounter Summary ---
Demographics + + + | Address | [address] | | | [place] [address] | + + + | Home Phone [...] Team Providers + +------+ + | Care Supervisor Hard Candy Name | Role | Phone | + +------+ + | Bassam Ross DO | PCP | | + +------+ + Reason for Visit + + + | Reason | Comments | + + + | Blood Test Results | | + + + Encounter Details +--------+ + + + + | Date | Type | Department | Care Team | Description | +--------+ + + + + | 10/03/ | Abstract | Digestive Health | Clinic, Surgery | Blood Test Results | | 2017 | | [place] [facility] [address] | | | | | | [address] | | | | | | Mailcode: [place] | | | | | | and | | | | | | [facility], [place] [address] | | | | | | [place], [place] | | | | | | [address] | | | | | | [phone] | | | +--------+ + + + [...]
--- OUTSIDE RECORDS SUMMARY | ~2019-06-14 | XMS | Encounter Summary ---
Demographics + + + | Address | [address] | | | [place] [address] | + + + | Home Phone | | + + + | Preferred Language | Unknown | + + + | Marital Status | Single | + + + | Catholic Affiliation | NRP | + + [...] Team Providers + +------+ + | Care Utility Sales And Service Manager Name | Role | Phone | + +------+ + PCP | Unavailable | + +------+ + Encounter Details +--------+ + + + + | Date | Type | Department | Care Team | Description | +--------+ + + + + | 08/14/ | Results | Registration [id number] | | | | 1998 | Only | [address] | | | | | | [address] Mailcode: [id number] | | | | | | [place], [place] | | | | | | [address] | | | | | | [phone] | | | +--------+ + + + [...] + +--------+ + + + | CBC TESTS 2 | Routin | 08/16/1998 | | Results for this | | | e | 8:40 AM | | procedure are in the | | | | PST | | results section. | + +--------+ + + + | CBC TESTS 2 | Routin | 08/16/1998 | | Results for this | | | e | 6:00 AM | | procedure are in the | | | | PST | | results section. | + +--------+ + + + | CBC TESTS 2 | Routin | 08/16/1998 | | Results for this | | | e | 5:00 AM | | procedure are in the | | | | PST | | results section. | + +--------+ + + + | CBC TESTS 2 | Routin | 08/15/1998 | | Results for this | | | e | 10:45 PM | | procedure are in the | | | | PST | | results section. | + +--------+ + + + | CHEMISTRY TESTS 4 | Routin | 08/15/1998 | | Results for this | | | e | 3:20 PM | | procedure are in the | | | | PST | | results section. | + +--------+ + + + | CBC TESTS 2 | Routin | 08/15/1998 | | Results for this | | | e | 3:20 PM | | procedure are in the | | | | PST | | results section. | + +--------+ + + + | TRANSFUSION MEDICINE | Routin | 08/15/1998 | | Results for this | | TESTS | e | 2:55 PM | | procedure are in the | | | | PST | | results section. | + +--------+ + + + | CHEMISTRY TESTS 4 | Routin | 08/15/1998 | | Results for this | | | e | 7:15 AM | | procedure are in the | | | | PST | | results section. | + +--------+ + + + | CBC TESTS 2 | Routin | 08/15/1998 | | Results for this | | | e | 7:15 AM | | procedure are in the | | | | PST | | results section. | + +--------+ + + + | IMMUNOLOGY TESTS 1 | Routin | 08/14/1998 | | Results for this | | | e | 9:20 PM | | procedure are in the | | | | PST | | results section. | + +--------+ + + + | CHEMISTRY TESTS 4 | Routin | 08/14/1998 | | Results for this | | | e | 5:20 PM | | procedure are in the | | | | PST | | results section. | + +--------+ + + + | CBC TESTS 2 | Routin | 08/14/1998 | | Results for this | | | e | 5:20 PM | | procedure are in the | | | | PST | | results section. | + +--------+ + + + documented in this encounter Results CBC TESTS 2 (08/16/1998 8:40 AM PST) + + + + + + | Component | Value | Ref Range | Performed | Pathologist | | | | | At | Signature | + + + + + + | WHITE CELL | 20.3 (H) | K/CU MM | | | | COUNT | | | | | + + + + + + | RED CELL | 3.95 | M/CU MM | | | | COUNT | | | | | + + + + + + | HEMOGLOBIN | 12.8 | GM/DL | | | + + + + + + | HEMATOCRIT | 36.6 (L) | % | | | + + + + + + | MCV | 92.8 | [place] | | | + + + + + + | MCH | 32.3 (H) | PG | | | + + + + + + | MCHC | 34.8 (H) | GM/DL | | | + + + + + + | RDW | 13.8 | % | | | + + + + + + | PLATELET | 145. (L) | K/CU MM | | | | COUNT | | | | | + + + + + + | MPV | 9.4 | [place] | | | + + + + + + + + | Specimen | + + | | + + + + + + + | Performing | Address | City/State/Zipcode | Phone Number | | Organization | | | | + + + + + | [facility] | [address] | [place] [address] | | | PATHOLOGY | [address] | | | + + + + + CBC TESTS 2 (08/16/1998 6:00 AM PST) + + + + + + | Component | Value | Ref Range | Performed | Pathologist | | | | | At | Signature | + + + + + + | CBC ONLY - | STAFF OR DIALYSIS DRAW | | | | | HEADER | REQUIRED | | | | + + + + + + + + | Specimen | + + | | + + + + + + + | Performing | Address | City/State/Zipcode | Phone Number | | Organization | | | | + + + + + | [facility] | [address] | [place] [address] | | | PATHOLOGY | [address] | | | + + + + + CBC TESTS 2 (08/16/1998 5:00 AM PST) + + + + + + | Component | Value | Ref Range | Performed | Pathologist | | | | | At | Signature | + + + + + + | WHITE CELL | 23.1 (H) | K/CU MM | | | | COUNT | | | | | + + + + + + | RED CELL | 4.08 | M/CU MM | | | | COUNT | | | | | + + + + + + | HEMOGLOBIN | 13.4 | GM/DL | | | + + + + + + | HEMATOCRIT | 38. | % | | | + + + + + + | MCV | 92.9 | [place] | | | + + + + + + | MCH | 32.8 (H) | PG | | | + + + + + + | MCHC | 35.3 (H) | GM/DL | | | + + + + + + | RDW | 13.7 | % | | | + + + + + + | PLATELET | 154. | K/CU MM | | | | COUNT | | | | | + + + + + + | MPV | 9.7 | [place] | | | + + + + + + + + | Specimen | + + | | + + + + + + + | Performing | Address | City/State/Zipcode | Phone Number | | Organization | | | | + + + + + | [facility] | [address] | [place] [address] | | | PATHOLOGY | [address] | | | + + + + + CBC TESTS 2 (08/15/1998 10:45 PM PST) + + + + + + | Component | Value | Ref Range | Performed | Pathologist | | | | | At | Signature | + + + + + + | WHITE CELL | 23.9 (H) | K/CU MM | | | | COUNT | | | | | + + + + + + | RED CELL | 4.16 | M/CU MM | | | | COUNT | | | | | + + + + + + | HEMOGLOBIN | 13.5 | GM/DL | | | + + + + + + | HEMATOCRIT | 39.1 | % | | | + + + + + + | MCV | 93.8 | [place] | | | + + + + + + | MCH | 32.4 (H) | PG | | | + + + + + + | MCHC | 34.5 (H) | GM/DL | | | + + + + + + | RDW | 13.8 | % | | | + + + + + + | PLATELET | 148. (L) | K/CU MM | | | | COUNT | | | | | + + + + + + | MPV | 10. | [place] | | | + + + + + + + + | Specimen | + + | | + + + + + + + | Performing | Address | City/State/Zipcode | Phone Number | | Organization | | | | + + + + + | [facility] | [address] | [place], [place] [address] | | | PATHOLOGY | [address] | | | + + + + + CBC TESTS 2 (08/15/1998 3:20 PM PST) + + + + + + | Component | Value | Ref Range | Performed | Pathologist | | | | | At | Signature | + + + + + + | WHITE CELL | 15.7 (H) | K/CU MM | | | | COUNT | | | | | + + + + + + | RED CELL | 4.6 | M/CU MM | | | | COUNT | | | | | + + + + + + | HEMOGLOBIN | 14.8 | GM/DL | | | + + + + + + | HEMATOCRIT | 42.6 | % | | | + + + + + + | MCV | 92.6 | [place] | | | + + + + + + | MCH | 32.3 (H) | PG | | | + + + + + + | MCHC | 34.8 (H) | GM/DL | | | + + + + + + | RDW | 13.7 | % | | | + + + + + + | PLATELET | 123. (L) | K/CU MM | | | | COUNT | | | | | + + + + + + | MPV | 11.1 (H) | [place] | | | + + + + + + + + | Specimen | + + | | + + + + + + + | Performing | Address | City/State/Zipcode | Phone Number | | Organization | | | | + + + + + | [facility] | [address] | [place] [address] | | | PATHOLOGY | [address] | | | + + + + + CHEMISTRY TESTS 4 (08/15/1998 3:20 PM PST) + + + + + + | Component | Value | Ref Range | Performed | Pathologist | | | | | At | Signature | + + + + + + | BUN, PLASMA | 16. | mg/dL | | | | (LAB) | | | | | + + + + + + | CREATININE | 0.7 | mg/dL | | | | PLASMA | | | | | | (LAB) | | | | | + + + + + + | URIC ACID, | 7.5 (H) | mg/dL | | | | PLASMA | | | | | | (LAB) | | | | | + + + + + + | AST(SGOT) | 40. (H) | U/L | | | + + + + + + + + | Specimen | + + | | + + + + + + + | Performing | Address | City/State/Zipcode | Phone Number | | Organization | | | | + + + + + | [facility] | [address] | [place] [address] | | | PATHOLOGY | [address] | | | + + + + + TRANSFUSION MEDICINE TESTS (08/15/1998 2:55 PM PST) + + + + + + | Component | Value | Ref Range | Performed | Pathologist | | | | | At | Signature | + + + + + + | ABO GROUP | B | | | | + + + + + + | RH TYPE | POS | | | | + + + + + + | ANTIBODY | NEGATIVE | | | | | SCREEN | | | | | + + + + + + + + | Specimen | + + | | + + + + + + + | Performing | Address | City/State/Zipcode | Phone Number | | Organization | | | | + + + + + | [facility] | [address] | [place] [address] | | | PATHOLOGY | [address] | | | + + + + + CBC TESTS 2 (08/15/1998 7:15 AM PST) + + + + + + | Component | Value | Ref Range | Performed | Pathologist | | | | | At | Signature | + + + + + + | WHITE CELL | 12.6 (H) | K/CU MM | | | | COUNT | | | | | + + + + + + | RED CELL | 4.47 | M/CU MM | | | | COUNT | | | | | + + + + + + | HEMOGLOBIN | 14.3 | GM/DL | | | + + + + + + | HEMATOCRIT | 41.4 | % | | | + + + + + + | MCV | 92.6 | [place] | | | + + + + + + | MCH | 32. | PG | | | + + + + + + | MCHC | 34.6 (H) | GM/DL | | | + + + + + + | RDW | 13.6 | % | | | + + + + + + | PLATELET | 96. (L) | K/CU MM | | | | COUNT | | | | | + + + + + + | MPV | 9.4 | [place] | | | + + + + + + + + | Specimen | + + | | + + + + + + + | Performing | Address | City/State/Zipcode | Phone Number | | Organization | | | | + + + + + | [facility] | [address] | [place] [address] | | | PATHOLOGY | [address] | | | + + + + + CHEMISTRY TESTS 4 (08/15/1998 7:15 AM PST) + + + + + + | Component | Value | Ref Range | Performed | Pathologist | | | | | At | Signature | + + + + + + | BUN, PLASMA | 14. | mg/dL | | | | (LAB) | | | | | + + + + + + | CREATININE | 0.7 | mg/dL | | | | PLASMA | | | | | | (LAB) | | | | | + + + + + + | URIC ACID, | 7.3 (H) | mg/dL | | | | PLASMA | | | | | | (LAB) | | | | | + + + + + + | AST(SGOT) | 56. (H) | U/L | | | + + + + + + + + | Specimen | + + | | + + + + + + + | Performing | Address | City/State/Zipcode | Phone Number | | Organization | | | | + + + + + | [facility] | [address] | [place] [address] | | | PATHOLOGY | [address] | | | + + + + + IMMUNOLOGY TESTS 1 (08/14/1998 9:20 PM PST) + + + + + + | Component | Value | Ref Range | Performed | Pathologist | | | | | At | Signature | + + + + + + | CARINA SCREEN | POSITIVE | | | | | ON HEP | | | | | | 2,SERUM | | | | | + + + + + + | CARINA PATTERN | HOMOGENEOUS | | | | + + + + + + | CARINA TITER | 1:40 | DIL. | | | | ON HEP2 | | | | | + + + + + + + + | Specimen | + + | | + + + + + + + | Performing | Address | City/State/Zipcode | Phone Number | | Organization | | | | + + + + + | [facility] | [address] | [place] [address] | | | PATHOLOGY | [address] | | | + + + + + CBC TESTS 2 (08/14/1998 5:20 PM PST) + + + + + + | Component | Value | Ref Range | Performed | Pathologist | | | | | At | Signature | + + + + + + | WHITE CELL | 13.1 (H) | K/CU MM | | | | COUNT | | | | | + + + + + + | RED CELL | 4.31 | M/CU MM | | | | COUNT | | | | | + + + + + + | HEMOGLOBIN | 13.9 | GM/DL | | | + + + + + + | HEMATOCRIT | 40.1 | % | | | + + + + + + | MCV | 93.1 | [place] | | | + + + + + + | MCH | 32.2 (H) | PG | | | + + + + + + | MCHC | 34.6 (H) | GM/DL | | | + + + + + + | RDW | 13.8 | % | | | + + + + + + | PLATELET | 105. (L) | K/CU MM | | | | COUNT | | | | | + + + + + + | MPV | 8.8 | [place] | | | + + + + + + + + | Specimen | + + | | + + + + + + + | Performing | Address | City/State/Zipcode | Phone Number | | Organization | | | | + + + + + | [facility] | [address] | [place] [address] | | | PATHOLOGY | [address] | | | + + + + + CHEMISTRY TESTS 4 (08/14/1998 5:20 PM PST) + + + + + + | Component | Value | Ref Range | Performed | Pathologist | | | | | At | Signature | + + + + + + | BUN, PLASMA | 13. | mg/dL | | | | (LAB) | | | | | + + + + + + | CREATININE | 0.7 | mg/dL | | | | PLASMA | | | | | | (LAB) | | | | | + + + + + + | URIC ACID, | 6.9 (H) | mg/dL | | | | PLASMA | | | | | | (LAB) | | | | | + + + + + + | AST(SGOT) | 108. (H) | U/L | | | + + + + + + + + | Specimen | + + | | + + + + + + + | Performing | Address | City/State/Zipcode | Phone Number | | Organization | | | | + + + + + | [facility] | [address] | [place] [address] | | | PATHOLOGY | [address] | | | + + + + + documented in this encounter Visit Diagnoses Not on filedocumented in this encounter"
--- OUTSIDE RECORDS SUMMARY | ~2019-06-14 | XMS | Encounter Summary ---
Demographics + + + | Address | [address] | | | [place] [address] | + + + | Home Phone [...] Team Providers + +------+ + | Care Dog Beautician Name | Role | Phone | + [...] | | | | | | | [facility] | | | | | | [facility] | | | | | | | [facility], | | | | | | | [address] | | | | | | | [place], [place] | | | | | | | [address] | | | | | | | Phone: | | | | | | | [phone] | | | | | | | Fax: | | | | | | | [phone] | +--------+--------+ + + + + Encounter Details +--------+---------+ + + + | Date | Type | Department | Care Team | Description | +--------+---------+ + + + | 09/04/ | Office | Dig[facility]ive Health | [address] | Morbid obesity with | | 2014 | Visit | Center at [facility] [address] | [address] | BMI of 70 and over, | | | | [address] | Jana Winston [place], | adult (HCC) (Primary | | | | Mailcode: [facility] | [place] [address] | Dx) | | | | for Health and | | | | | | Healing, [address] | | | | | | [place], [place] | | | | | | [address] | | | | | | [phone] | | | +--------+---------+ + + + [...] + + + + | Weight | 192.4 kg (424 lb 1.6 | 09/04/2014 1:41 PM | | | | oz) | PDT | | + + + + + | Height | - | - | | + + + + + | Body Mass Index | 75.15 | 08/23/2014 8:30 AM | | | | | PDT | | + + + + + documented in this encounter Progress Notes Margot Contreras, RD - 09/04/2014 1:41 PM PDT Referring Provider: Bassam Ross DO [facility], Pre-Bariatric Surgery Visit Follow-up diet consult prior to having gastric sleeve (revision from lap-band - 05/13/2004; removed in 2011). Documented Time of Visit: 1:55 to 2:14 (19 minutes [id number] with patient) SUBJECTIVE: Here to learn about liver reduction diet. 08/23/14 Procedure had to be aborted: Per Dr. Reed note: "At this point, I realized that t his operation represented a degree of risk that was above and beyond that which is acceptabl e for an elective operation, mostly due to the hepatomegaly" Food Allergies: No OBJECTIVE: Height: Ht Readings from Last 1 Encounters: 08/23/14 1.6 m (5' 2.99") Weight: Wt Readings from Last 2 Encounters: 09/04/14 192.37 kg (424 lb 1.6 oz) 08/23/14 194 kg (427 lb 11.1 oz) BMI: Body mass index is 75.14 kg/(m^2). Weight change since last nutrition appointment: lost 3lbs Pt is asked to lose 25 more. Past Medical History: Past Medical History Diagnosis [...] echo and chest xray findings. Followed by oil well logger in [place]. Poor intravenous access Medications: See list in Epic snap shot Pt states she was just diagnosed with DM Dietary Supplements: No changes Labs: see Results Review for current labs (if available). Nutrition Diagnosis: Morbid Obesity as evidenced by BMI of 75.1. Pre-Surgery Diet: Provided written diet suggestions to help patient lose weight before surgery. -Reviewed liver reduction diet Patient's Comprehension: The patient is: Receptive Stage of change: Preparation (regarding Liver Reduction diet), had been actively losi ng weight prior to surgery. Barrier(s) to education: No Learning style: Patient is a Visual learner, Verbal learner Expected Outcome: I think the patient will do moderately if following all lifestyle and be havioral changes discussed today. Upset by procedure being aborted but she understood why it was necessary. Willing to move forward and try to lose the recommended weight. GOAL: The patient's goal is to have weight loss surgery to maintain weight loss and improve other health conditions. 1. Continue to practice behavioral changes to prepare for surgery. 2. Increase physical activity. 3. Review all information provided for post-surgery diet progression. 4. Call or send [facility] message to dietitian with any questions. Contact information was provided. Follow up with dietitian in 1-[address], [facility], Pager# [phone] documented in this enco unter Plan of Treatment Not on filedocumented as of this encounter Procedures + +--------+ + + + | Procedure Name | Priori | Date/Time | Associated Diagnosis | Comments | | | ty | | | | + +--------+ + + + | [place] MNT RE-ASSESSMNT | Routin | 09/04/2014 | Morbid obesity | | | X15MIN | e | 4:57 PM | with BMI of 70 and [...]
--- OUTSIDE RECORDS SUMMARY | ~2019-06-14 | XMS | Encounter Summary ---
Demographics + + + | Address | [address] | | | [place] [address] | + + + | Home Phone [...] | + + +---------+ + | Lana Radcliffe | ECON | Unknown | | + + +---------+ + Care Team Providers + +------+ + | Care Underwriting Assistant Name | Role | Phone | [...] Abstract | Cardiology in | Juan Antonio cMlaughlin, | Manage medication | | 2018 | | [facility] | [address] | treatment | | | | Center at [facility] [address] [place], [place] | (Medication list) | | | | [address] | [address] | | | | | Mailcode: Center | [phone] | | | | | for Health and | | | | | | [place] [address] | | | | | | [place], [place] | | | | | | [address] | | | | | | [phone] | | | +--------+ + + + [...]
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
--- OUTSIDE RECORDS SUMMARY | ~2019-06-14 | XMS | Encounter Summary ---
Demographics + + + | Address | [address] | | | [place] [address] | + + + | Home Phone [...] | + + +---------+ + | [place] | ECON | Unknown | | + + +---------+ + Care Team Providers + +------+ + | Care Licensed Psychologist Name | Role | Phone | + +------+ + | Bassam Ross DO | PCP | | + +------+ + Reason for Visit + + + | Reason | Comments | + + + | Diet counseling | | + + + Encounter Details +--------+ + + + + | Date | Type | Department | Care Team | Description | +--------+ + + + + | 02/09/ | Telephone | Digestive Health | Dori Reed, | Diet counseling | | 2014 | | [place] [facility] [address] | [place] | | | | | [address] | | | | | | Mailcode: [place] | | | | | | [facility] and | | | | | | [facility], [place] [address] | | | | | | [place], [place] | | | | | | [address] | | | | | | [phone] | | | +--------+ + + + [...]
--- OUTSIDE RECORDS SUMMARY | ~2019-06-14 | XMS | Encounter Summary ---
Demographics + + + | Address | [address] | | | [place] [address] | + + + | Home Phone [...] | + + +---------+ + | [place] | [place] | , [place] | | + + +---------+ + Care Team Providers + +------+ + | Care Online Content Developer Name | Role | Phone | + +------+ + | Bassam Ross DO | PCP | | + +------+ + Reason for Visit + + + | Reason | Comments | + + + | Leg Swelling | | + + + | Leg Pain | | + + + Encounter Details +--------+ + + + + | Date | Type | Department | Care Team | Description | +--------+ + + + + | 12/22/ | Emergency | [facility] | Ravi Tinoco | Pedal edema (Primary | | 2015 - | | [facility] | Feliciano Aquino MD | Dx); Cellulitis of | | | | CENTER [address] | [address] | pretibial region | | 12/23/ | | [place] | | | 2014 | | [address] | [address] | | | | | [phone] | | | +--------+ + + + [...] + + + | Blood Pressure | 149/109 | 12/22/2014 11:53 PM | | | | | PDT | | + + + + + | Pulse | 108 | 12/22/2014 11:53 PM | | | | | PDT | | + + + + + | Temperature | 36.9 C (98.4 F) | 12/22/2014 11:53 PM | | | | | PDT | | + + + + + | Respiratory Rate | 20 | 12/22/2014 11:53 PM | | | | | PDT | | + + + + + | Oxygen Saturation | 94% | 12/22/2014 11:53 PM | | | | | PDT | | + + + + + | Inhaled Oxygen | - | - | | | Concentration | | | | + + + + + | Weight | 194.1 kg (428 lb) | 12/22/2014 9:08 PM | | | | | PDT | | + + + + + | Height | 160 cm (5' 2.99") | 12/22/2014 9:08 PM | | | | | PDT | | + + + + + | Body Mass Index | 75.84 | 12/22/2014 9:08 PM | | | | | PDT | | + + + + + documented in this encounter Discharge Instructions Instructions Ravi Tinoco MD - 12/22/2014Take Lasix as follows. Take 80 mg in the morning and 40 mg in the afternoon. Start Augmentin and take complete course. Retu rn for severe worsening pain swelling or other worsening symptoms. [facility]. documented in this encounter Medications at Time [...] | | Take 1 tablet by | 14 | 0 | 12/23/19 | | | amoxicillin-clavulan | mouth 2 times daily | tablet | | 15 | 5 | | ate (AUGMENTIN) | for 7 days. | | | | | | 875-125 mg per | | | | | | | tablet | | | | | | + + + +---------+ + + | | Take 1 tablet by | 14 | 0 | 12/23/19 | | | amoxicillin-clavulan | mouth 2 times daily | tablet | | 15 | 5 | | ate (AUGMENTIN) | for 7 days. | | | | | | 875-125 mg per [...] + + | furosemide (LASIX) | Take 1 tablet by | 30 | 1 | 12/23/19 | | | 80 mg tablet | mouth Daily. | tablet | | 15 | 6 | + + + +---------+ + + | furosemide (LASIX) | Take 1 tablet by | 30 | 0 | 12/23/19 | | | 80 mg tablet | mouth Daily. | tablet | | 15 | 6 | + + + +---------+ + + [...] + + + +---------+ + + | HYDROmorphone | Take 2 mg by mouth | | 0 | | | | (DILAUDID) 2 mg | every 6 hours as | | | | 6 | | tablet | needed for Pain. [...] | | Take 1 tablet by | 30 | 0 | 12/22/20 | 08/29/201 | | oxyCODONE-acetaminop | mouth every 6 hours | tablet | | 15 | 6 | | hen (PERCOCET) 5-325 | as needed for Pain. | | | | | | mg per tablet | | | | | | + + + +---------+ + + | | Take 1 tablet by | 30 | 0 | 12/22/20 | 201 | | oxyCODONE-acetaminop | mouth every 6 hours | tablet | | 15 | 6 | | hen (PERCOCET) 5-325 | as needed for Pain. | | | | | | mg [...] tablet | Daily. | | | | 6 | + + + +---------+ + + [...] | | | | | | [place] | | | | | | [id number] | | | | | | | | +--------+---------+ + + + | 01/18/ | Office | Sleep Medicine | Jermaine Fairchild | | 2019 | Visit | | MD Jac Sousa [place] | | | | | | [place] | | | | | | [place] [address] | | | | | | [phone] | | | | | | | | +--------+---------+ + + + documented as of this encounter Procedures + +--------+ + + + | Procedure Name | Priori | Date/Time | Associated Diagnosis | Comments | | | ty | | | | + +--------+ + + + | EXTRA GOLD TOP TUBE | Routin | 12/22/2014 | | Results for this | | | e | 9:52 PM | | procedure are in the | | | | PDT | | results section. | + +--------+ + + + | EXTRA BLUE TOP TUBE | Routin | 12/22/2014 | | Results for this | | | e | 9:52 PM | | procedure are in the | | | | PDT | | results section. | + +--------+ + + + | SEDIMENTATION RATE | STAT | 12/22/2014 | | Results for this | | | | 9:51 PM | | procedure are in the | | | | PDT | | results section. | + +--------+ + + + | CBC WITH | STAT | 12/22/2014 | | Results for this | | DIFFERENTIAL | | 9:51 PM | | procedure are in the | | | | PDT | | results section. | + +--------+ + + + | C-REACTIVE PROTEIN, | STAT | 12/22/2014 | | Results for this | | HIGH SENSITIVITY | | 9:51 PM | | procedure are in the | | | | PDT | | results section. | + +--------+ + + + | B TYPE NATRIURETIC | Add-On | 12/22/2014 | | Results for this | | PEPTIDE | | 9:51 PM | | procedure are in the | | | | PDT | | results section. | + +--------+ + + + | LIPASE | STAT | 12/22/2014 | | Results for this | | | | 9:51 PM | | procedure are in the | | | | PDT | | results section. | + +--------+ + + + | COMPREHENSIVE | STAT | 12/22/2014 | | Results for this | | METABOLIC PANEL | | 9:51 PM | | procedure are in the | | | | PDT | | results section. | + +--------+ + + + documented in this encounter Results EXTRA GOLD TOP TUBE (12/22/2014 9:52 PM PDT) + +-------+ + + + | Component | Value | Ref Range | Performed | Pathologist | | | | | At | Signature | + +-------+ + + + | Extra Gold | Done | | [facility] | | | Top Tube | | | [facility] | | | | | | [facility] | | | | | | CENTER - | | | | | | LABORATORY | | + +-------+ + + + + + | Specimen | + + | Blood | + + + + + + + | Performing | Address | City/State/Zipcode | Phone Number | | Organization | | | | + + + + + | [facility] | [address] | [place] | [phone] | | [facility] | | [address] | | | - LABORATORY | | | | + + + + + EXTRA BLUE TOP TUBE (12/22/2014 9:52 PM PDT) + +-------+ + + + | Component | Value | Ref Range | Performed | Pathologist | | | | | At | Signature | + +-------+ + + + | Extra Blue | Done | | [facility] | | | Top Tube | | | [facility] | | | | | | [facility] | | | | | | CENTER - | | | | | | LABORATORY | | + +-------+ + + + + + | Specimen | + + | Blood | + + + + + + + | Performing | Address | City/State/Zipcode | Phone Number | | Organization | | | | + + + + + | [facility] | [address] | [place] | [phone] | | [facility] | | [address] | | | - LABORATORY | | | | + + + + + B Type Natriuretic Peptide (12/22/2014 9:51 PM PDT) + +-------+ + + + | Component | Value | Ref Range | Performed | Pathologist | | | | | At | Signature | + +-------+ + + + | BNP | 68 | <100 pg/mL | [facility] | | | | | | [facility] | | | | | | MEDICAL | | | | | | CENTER - | | | | | | LABORATORY | | + +-------+ + + + + + | Specimen | + + | Blood | + + + + + + + | Performing | Address | City/State/Zipcode | Phone Number | | Organization | | | | + + + + + | [facility] | [address] | [place] | [phone] | | [facility] | | [address] | | | - LABORATORY | | | | + + + + + C-Reactive Protein, High Sensitivity (12/22/2014 9:51 PM PDT) + + + + + + | Component | Value | Ref Range | Performed | Pathologist | | | | | At | Signature | + + + + + + | CRP, High | 46.60 (H) | <=3.00 mg/L | [facility] | | | Sensitive | | | [facility] | | | | | | [...] | + + + + + | [facility] | [address] | [place] | [phone] | | [facility] | | [address] | | | - LABORATORY | | | | + + + + + Sedimentation Rate (12/22/2014 9:51 PM PDT) + +--------+ + + + | Component | Value | Ref Range | Performed | Pathologist | | | | | At | Signature | + +--------+ + + + | ESR | 49 (H) | <20 mm/hr | [facility] | | | | | | [facility] | | | | | | MEDICAL | | | | | | CENTER - | | | | | | LABORATORY | | + +--------+ + + + + + | Specimen | + + | Blood | + + + + + + + | Performing | Address | City/State/Zipcode | Phone Number | | Organization | | | | + + + + + | [facility] | [address] | [place] | [phone] | | [facility] | | [address] | | | - LABORATORY | | | | + + + + + Lipase (12/22/2014 9:51 PM PDT) + +-------+ + + + | Component | Value | Ref Range | Performed | Pathologist | | | | | At | Signature | + +-------+ + + + | Lipase | 29 | 0 - 60 U/L | [facility] | | | | | | [facility] | | | | | | MEDICAL | | | | | | [place] - | | | | | | LABORATORY | | + +-------+ + + + + + | Specimen | + + | Blood | + + + + + + + | Performing | Address | City/State/Zipcode | Phone Number | | Organization | | | | + + + + + | [facility] | [address] | [place] | [phone] | | [facility] | | [address] | | | - LABORATORY | | | | + + + + + Comprehensive Metabolic Panel (12/22/2014 9:51 PM PDT) + + + + + + | Component | Value | Ref Range | Performed | Pathologist | | | | | At | Signature | + + + + + + | Na | 138 | 136 - 149 | [facility] | | | | | mmol/L | [facility] | | | | | | MEDICAL | | | | | | CENTER - | | | | | | LABORATORY | | + + + + + + | K | 4.2 | 3.5 - 5.1 | [facility] | | | | | mmol/L | [facility] | | | | | | MEDICAL | | | | | | CENTER - | | | | | | LABORATORY | | + + + + + + | Cl | 100 | 98 - 109 mmol/L | [facility] | | | | | | [facility] | | | | | | MEDICAL | | | | | | CENTER - | | | | | | LABORATORY | | + + + + + + | CO2 | 30 | 24 - 31 mmol/L | [facility] | | | | | | [facility] | | | | | | MEDICAL | | | | | | CENTER - | | | | | | LABORATORY | | + + + + + + | Anion Gap | 8 | 3 - 16 mmol/L | [facility] | | | | | | [facility] | | | | | | MEDICAL | | | | | | CENTER - | | | | | | LABORATORY | | + + + + + + | Glucose | 212 (H) | 70 - 109 mg/dL | [facility] | | | | | | [facility] | | | | | | MEDICAL | | | | | | CENTER - | | | | | | LABORATORY | | + + + + + + | BUN | 16 | 7 - 18 mg/dL | [facility] | | | | | | [facility] | | | | | | MEDICAL | | | | | | CENTER - | | | | | | LABORATORY | | + + + + + + | Creatinine | 0.70 | 0.60 - 1.30 | [facility] | | | | | mg/dL | [facility] | | | | | | MEDICAL | | | | | | CENTER - | | | | | | LABORATORY | | + + + + + + | eGFR if not | >60Comment: GLOMERULAR | >=60 | [facility] | | | | FILTRATION | mL/min/1.73m2 | [facility] | | | [facility] | RATE,ESTIMATED | | MEDICAL | | | | mL/min/1.62q3Qubb than | | CENTER - | | | | 60 Chronic kidney | | LABORATORY | | | | disease,if found over a | | | | | | 3-month period.Less than | | | | | | 15 Kidney failureFor | | | | | | | | | | | | Americans,multiply the | | | | | | calculated GFR by 1.21. | | | | | | | | | | + + + + + + | Calcium | 9.5 | 8.3 - 10.5 | [facility] | | | | | mg/dL | [facility] | | | | | | [facility] | | | | | | C[facility] - | | | | | | LABORATORY | | + + + + + + | Albumin | 3.2 | 3.2 - 5.0 g/dL | [facility] | | | | | | [facility] | | | | | | [facility] | | | | | | [facility] - | | | | | | LABORATORY | | + + + + + + | Bilirubin | 0.7 | 0.1 - 1.5 mg/dL | [facility] | | | Total | | | [facility] | | | | | | MEDICAL | | | | | | CENTER - | | | | | | LABORATORY | | + + + + + + | Total | 6.7 | 6.0 - 7.8 g/dL | [facility] | | | Protein | | | [facility] | | | | | | MEDICAL | | | | | | CENTER - | | | | | | LABORATORY | | + + + + + + | AST | 62 (H) | 10 - 42 U/L | [facility] | | | | | | [facility] | | | | | | MEDICAL | | | | | | CENTER - | | | | | | LABORATORY | | + + + + + + | ALT | 37 | 6 - 45 U/L | [facility] | | | | | | [facility] | | | | | | MEDICAL | | | | | | CENTER - | | | | | | LABORATORY | | + + + + + + | Alkaline | 94 | 40 - 110 U/L | [facility] | | | Phosphatase | | | [facility] | | | | | | MEDICAL | | | | | | CENTER - | | | | | | LABORATORY | | + + + + + + | Globulin | 3.5 | g/dL | [facility] | | | | | | [facility] | | | | | | MEDICAL | | | | | | CENTER - | | | | | | LABORATORY | | + + + + + + | Albumin/Jazmyn | 0.9 | | [facility] | | | bulin Ratio | | | [facility] | | | | | | [facility]ICAL | | | | | | CENTER - | | | | | | LABORATORY | | + + + + + + | BUN/Creatin | 22.9 | | [facility] | | | ine Ratio | | | [facility] | | [...] | + + + + + | [facility] | [address] | [place], [place] | [phone] | | [facility] | | [address] | | | - LABORATORY | | | | + + + + + CBC with Differential (12/22/2014 9:51 PM PDT) + +---------+ + + + | Component | Value | Ref Range | Performed | Pathologist | | | | | At | Signature | + +---------+ + + + | WBC | 10.3 | 4.0 - 11.0 K/uL | [facility] | | | | | | [facility] | | | | | | [facility] | | | | | | CENTER - | | | | | | LABORATORY | | + +---------+ + + + | RBC | 4.35 | 3.70 - 5.20 | [facility] | | | | | M/uL | [facility] | | | | | | [facility] | | | | | | CENTER - | | | | | | LABORATORY | | + +---------+ + + + | Hemoglobin | 14.2 | 11.5 - 16.0 | [facility] | | | | | g/dL | [facility] | | | | | | MEDICAL | | | | | | CENTER - | | | | | | LABORATORY | | + +---------+ + + + | Hematocrit | 42.3 | 34.0 - 47.0 % | [facility] | | | | | | [facility] | | | | | | [facility] | | | | | | CENTER - | | | | | | LABORATORY | | + +---------+ + + + | MCV | 97.2 | 83.0 - 101.0 fL | [facility] | | | | | | [facility] | | | | | | [facility]ICAL | | | | | | CENTER - | | | | | | LABORATORY | | + +---------+ + + + | MCH | 32.6 | 28.0 - 35.0 pg | [facility] | | | | | | [facility] | | | | | | [facility] | | | | | | CENTER - | | | | | | LABORATORY | | + +---------+ + + + | MCHC | 33.6 | 32.0 - 36.0 | [facility] | | | | | g/dL | [facility] | | | | | | MEDICAL | | | | | | CENTER - | | | | | | LABORATORY | | + +---------+ + + + | RDW-CV | 14.4 | <15.0 % | [facility] | | | | | | [facility] | | | | | | [facility] | | | | | | CENTER - | | | | | | LABORATORY | | + +---------+ + + + | Platelet | 285 | 140 - 440 K/uL | [facility] | | | Count | | | [facility] | | | | | | [facility] | | | | | | CENTER - | | | | | | LABORATORY | | + +---------+ + + + | MPV | 8.6 | fL | [facility] | | | | | | [facility] | | | | | | [facility] | | | | | | CENTER - | | | | | | LABORATORY | | + +---------+ + + + | % | 64.8 | 45.0 - 82.0 % | [facility] | | | Neutrophils | | | [facility] | | | | | | MEDICAL | | | | | | CENTER - | | | | | | LABORATORY | | + +---------+ + + + | % | 23.5 | 20.0 - 45.0 % | [facility] | | | Lymphocytes | | | [facility] | | | | | | MEDICAL | | | | | | CENTER - | | | | | | LABORATORY | | + +---------+ + + + | % Monocytes | 8.0 | 4.0 - 12.0 % | [facility] | | | | | | [facility] | | | | | | [facility] | | | | | | CENTER - | | | | | | LABORATORY | | + +---------+ + + + | % | 2.5 | 0.0 - 5.0 % | [facility] | | | Eosinophils | | | [facility] | | | | | | MEDICAL | | | | | | CENTER - | | | | | | LABORATORY | | + +---------+ + + + | % Basophils | 1.2 (H) | 0.0 - 1.0 % | [facility] | | | | | | [facility] | | | | | | [facility] | | | | | | CENTER - | | | | | | LABORATORY | | + +---------+ + + + | Absolute | 6.70 | 1.80 - 8.50 | [facility] | | | Neutrophils | | K/uL | [facility] | | | | | | MEDICAL | | | | | | CENTER - | | | | | | LABORATORY | | + +---------+ + + + | Absolute | 2.40 | 0.60 - 3.20 | [facility] | | | Lymphocytes | | K/uL | [facility] | | | | | | [facility] | | | | | | CENTER - | | | | | | LABORATORY | | + +---------+ + + + | Absolute | 0.80 | 0.00 - 1.00 | [facility] | | | Monocytes | | K/uL | [facility] | | | | | | [facility] | | | | | | CENTER - | | | | | | LABORATORY | | + +---------+ + + + | Absolute | 0.30 | 0.00 - 0.40 | [facility] | | | Eosinophils | | K/uL | [facility] | | | | | | [facility] | | | | | | CENTER - | | | | | | LABORATORY | | + +---------+ + + + | Absolute | 0.10 | 0.00 - 0.10 | [facility] | | | Basophils | | K/uL | [facility] | | | | | | [facility] | | | | | | CENTER - | | | | | | LABORATORY | | + +---------+ + + + + + | Specimen | + + | Blood | + + + + + + + | Performing | Address | City/State/Zipcode | Phone Number | | Organization | | | | + + + + + | [facility] | [address] | [place] | [phone] | | [facility] | | [address] | | | - LABORATORY | | | | + + + + + documented in this encounter Visit Diagnoses + + | Diagnosis | + + | Pedal edema - Primary Edema | + + | Cellulitis of pretibial region Cellulitis and abscess of leg, except foot | + + documented in this encounter Administered Medications + +--------+ + +------+------+ | Medication Order | MAR | Action | Dose | Rate | Site | | | Action | Date | | | | + +--------+ + +------+------+ | amoxicillin-clavulanate | Given | 12/23/19 | 1 tablet | | | | (AUGMENTIN) 875-125 mg per tablet | | 15 11:46 | | | | | 1 tablet 1 tablet, Oral, ONCE, | | PM PDT | | | | | 12/23/14 at 0000, For 1 dose | | | | | | + +--------+ + +------+------+ +---+---+ | | | +---+---+ + +-------+ +--------+---+---+ | furosemide (LASIX) injection | Given | 12/23/19 | 100 mg | | | | 100 mg 100 mg, Intravenous, | | 15 10:02 | | | | | ONCE, 12/22/14 at 2200, For 1 | | PM PDT | | | | | dose | | | | | | + +-------+ +--------+---+---+ +---+---+ | | | +---+---+ + + + + +---+---+ | oxyCODONE-acetaminophen | Dispense | 12/23/19 | 1 tablet | | | | (PERCOCET) 5-325 mg per tablet | to Home | 15 11:47 | | | | | (ED prepack) 1-2 tablet 1-2 | | PM PDT | | | | | tablet, Oral, ONCE, 12/23/14 | | | | | | | at 0000, For 1 dose, 1-2 | | | | | | | tablet(s) every 6 hours prn pain | | | | | | | Dispense for home use., | | | | | | + + + + +---+---+ +---+---+ | | | +---+---+ documented in this encounter
--- OUTSIDE RECORDS SUMMARY | ~2019-06-14 | XMS | Encounter Summary ---
Demographics + + + | Address | [address] | | | [place] [address] | + + + | Home Phone [...] | + + +---------+ + | Lana Cortland | ECON | Unknown | | + + +---------+ + Care Team Providers + +------+ + | Care Painter Airbrush Name | Role | Phone | + [...] | Physical | Diagnoses | Tilgner, | | | | | Therapy | S/P | RENETTA Kebede | | | | | | laparoscopic | [address] | | | | | | delio | [address] | | | | | | gastrectomy | [place], [place] | | | | | | Procedures | [address] | | | | | | PHYSICAL | Phone: | | | | | | THERAPY | | | | | | | REFERRAL | Fax: | | | | | | | [phone] | | +--------+--------+ + + + + [...] | | | | | | | [place], [place] | | | | | | | [address] | | | | | | | Phone: | | | | | | | [phone] | | | | | | | Fax: | | | | | | | [phone] | +--------+--------+ + + + + Encounter Details +--------+---------+ + + + | Date | Type | Department | Care Team | Description | +--------+---------+ + + + | 08/07/ | Office | Digestive Health | Thania Cardenas, | S/P laparoscopic | | 2016 | Visit | Center at [facility] [address] | ACNP [address] | sleeve gastrectomy | | | | [address] | Ave [place], [place] | (Primary Dx); ANNABEL on | | | | Mailcode: Center | [phone] | CPAP; Essential | | | | for Health and | | hypertension; Type 2 | | | | [facility] | | diabetes mellitus | | | | [place], [place] | | without complication | | | | [address] | | ([facility]); Morbid | | | | | | obesity, unspecified | | | | | | obesity type ([facility]); | | | | | | Other chronic pain; | | | | | | Vitamin D | | | | | | deficiency disease; | | | | | | Vitamin B 12 | | | | | | deficiency; Physical | | | | | | deconditioning | +--------+---------+ + + + Social History [...] + + + | Blood Pressure | 132/89 | 08/08/2015 3:01 PM | | | | | PST | | + + + + + | Pulse | 119 | 08/08/2015 3:01 PM | | | | | PST | | + + + + + | Temperature | 36.8 C (98.2 F) | 08/08/2015 3:01 PM | | | | | PST | | + + + + + | Respiratory Rate | 18 | 08/08/2015 3:01 PM | | | | | PST | | + + + + + | Oxygen Saturation | - | - | | + + + + + | Inhaled Oxygen | - | - | | | Concentration | | | | + + + + + | Weight | 162.4 kg (358 lb 1.6 | 08/08/2015 3:01 PM | | | | oz) | PST | | + + + + + | Height | 160 cm (5' 3") | 08/08/2015 3:01 PM | | | | | PST | | + + + + + | Body Mass Index | 63.43 | 08/08/2015 3:01 PM | | | | | PST | | + + + + + documented in this encounter Patient Instructions Patient Instructions Thania Lamas ACNP - 08/08/2015 3:14 PM PSTDehydration: Because of the surgery, you cannot gulp water when you are getting dry. Know that you are a lways a little dehydrated. The first sign is nausea. So if you feel nausea, think DRINK. This is especially important in higher temperatures. If you are nauseated then drink small amounts often (for example a shot glass of Water every 15 minutes) Meet your protein and water targets every day... Dance til you sweat :) documented in this encounter Progress Notes Thania Lamas ACNP - 08/08/2015 2:42 PM PSTFormatting of this note might be different fro m the original. BARIATRIC FOLLOW-UP Aspen Darden is a 44 y.o. patient who underwent a sleeve gastrectomy 01/2015 She is 6 months post op. She saw the construction executive prior to this appointment. She has a history of lap band x2 s/p removal.. No GI symptoms Walking a little. . Last office visit reviewed. Op-report reviewed. Labs reviewed. Weight 436--> 358 (total 78 lb weight loss) Blood pressure 132/89, pulse 119, temperature 36.8 C (98.2 F), temperature source Oral, resp. rate 18, height 1.6 m (5' 3"), weight 162.433 kg (358 lb 1.6 oz). ALLERGIES: Allergies Allergen Reactions Advair Diskus [...] echo and chest xray findings. Followed by concrete handler in [place]. Poor intravenous access Liver enlargement 01/2015 intraop Past Surgical History Procedure Laterality Date C section 1998 Tonsillectomy 1996 Knee surgery 1996 Gastric banding 2004, 2007, 2010 Skin and subcutaneous tissue surgery 2006 Foot surgery 2009 - 2010 3x Hysterectomies, vaginal 2009 Appendectomy for ruptured appendix with abscess 2012 Gallbladder surgery 2008 Laparotomy 07/2014 Laparoscopic sleeve gastrectomy 02/07/2015 [facility] [place] History Social History Marital Status: Single [...] sinus rhythm. Normal ECG [facility] reviewed [facility] [employer] (see media tab): Echocardiogram 11/18/2013: 1. Sinus [...] There is no pericardial effusion.21. No mass [id number]. Po or visualization. Definity was used to opacify the left ventricular chamber and improve deli neation of the endocardial border. Family History Problem Relation Diabetes Father Hypertension Mother Obesity Mother Hypertension Father Heart Disease Father [place] 78 Bariatric Medications: MVI with iron twice daily: yes Calcium citrate 1500mg daily: no Vitamin D 1000 mg daily : yes B12 500mcg SL daily or monthly shot: yes H2RB/PPI daily: no Narcotics: Yes for her chronic pain Symptoms: Nausea: None Dysphagia: None Vomiting: None Heartburn: None Abd Pain: None Constipation: None Diarrhea: None Exam General- Alert and oriented x4, WD, WN, NAD, Obese, well appearing Well hydrated: moist mucous membranes Lungs: regular and even excursion, no audible wheezes Card/Circ: no LE edema Abd - Soft, NT, NR, NG Abd Wounds healed Assessment/Plan: 1. S/P sleeve gastrectomy, Doing well Met with the construction executive prior to my appointment 2. Labs today: none 3. Mobility: I have completed a PT eval again, requesting water therapy for strengthening a nd increase conditioning. Discussed with her the need to continue to increase her activity. 5Continue with supps as directed, watch protein [...] opti mized. Encouraged pt to F/u at every year post op. 5. ANNABEL: 6. GERD: not her diagnosis 7. Hyperlipidemia: not her diagnosis 8. HTN: continues on medication 9. Diabetes: not her diagnosis See PCM for adjusting any other medications. Call if any abd pain, n/v/d or other issues. Pt agrees to POC and will call or send [employer] message if any issues. Start time 1505 , end time 1525. I spent a total of 20 minutes face to face with this yumiko patterson. Over 50% of visit was in counseling. Thania Lamas DNP, ACNP, LANDSCAPE NURSERYMAN Nurse Practitioner for Bariatric Surgery [facility] | [address] | [place], [place] | [address] | documented in this en counter Plan of Treatment Not on filedocumented as of this encounter Visit Diagnoses + + | Diagnosis | + + | S/P laparoscopic sleeve gastrectomy - Primary | + + | ANNABEL on CPAP Obstructive sleep apnea (adult) (pediatric) | + + | Essential hypertension | + + | Type 2 diabetes mellitus without complication (HCC) | + + | Morbid obesity, unspecified obesity type (HCC) | + + | Other chronic pain | + + | Vitamin D deficiency disease Unspecified vitamin D deficiency | + + | Vitamin B 12 deficiency Other B-complex deficiencies | + + | Physical deconditioning Debility, unspecified | + + documented in this encounter
--- OUTSIDE RECORDS SUMMARY | ~2019-06-14 | XMS | Encounter Summary ---
Demographics + + + | Address | [address] | | | [place] [address] | + + + | Home Phone | | + + + | Preferred Language | Unknown | + + + | Marital Status | Single | + + + | Uatsdin Affiliation | NRP | + + + [...] | + + +---------+ + | Lana Secondcreek | ECON | Unknown | | + + +---------+ + Care Team Providers + +------+ + | Care Personnel Research Psychologist Name | Role | Phone | + +------+ + | Iqra Peralta MD | PCP | | + +------+ + Reason for Visit + + + | Reason | Comments | + + + | Refill Request | JARDIANCE 25 mg | + + + Encounter Details +--------+--------+ + + + | Date | Type | Department | Care Team | Description | +--------+--------+ + + + | 01/11/ | Refill | Cardiology in | Juan Antonio Mclaughlin, | Refill Request | | 2019 | | Dig[facility]ive Health | [address] | (JARDIANCE 25 mg) | | | | Center at [facility] [address] | [place], [place] | | | | | [address] | [address] | | | | | Mailcode: Center | [phone] | | | | | for Health and | | | | | | [place], [facility] | | | | | | [place], [place] | | | | | | [address] | | | | | | [phone] | | | +--------+--------+ + + + [...]
--- OUTSIDE RECORDS SUMMARY | ~2019-06-14 | XMS | Encounter Summary ---
Demographics + + + | Address | [address] | | | [place] [address] | + + + | Home Phone [...] | + + +---------+ + | Lana Fertile | ECON | Unknown | | + + +---------+ + Care Team Providers + +------+ + | Care Sales Planning Coordinator Name | Role | Phone | [...] + + + + | 08/23/ | Hospital | [facility] [address] | Dori [place], | | | 2014 | Encounter | [address] | | | | | | [id number] | | | | | | [place], | | | | | | [place] [address] | | | | | | [phone] | | | +--------+ + + + [...] pocke t in the back of your [employer] top. Put a tennis ball into the [...] Apnea: After Your Visit", log into your [employer] account at [email or web address]: [email or web address]. You can enter [id number] in the [employer] Library" search box. Not on [employer])? Review the MyChart section of your After Visit Summary for directions on lias w to sign up. [phone] [email or web address]. Care instructions adapted under license by [facility]. This care instruction is for use with your licensed healthcar e professional. If you have questions about a medical condition or this instruction, always ask your healthcare professional. [employer] disclaims any warranty or liabili ty for your use of this information. Content Version: 10.3.005719; Current as of: February 07, 2014 General [...] cannot be sent through Care Everywhere.SLEEP APNEA (EN GLISH)documented in this encounter Plan of Treatment Not [...] ve | 10:39 AM | ([facility]) | | | | Surgic [...] 08/23/2014 | | Attending Surgeon:Dori Reed MD Strip Mill Operator(s):Raffi Soria | | MD Moses Preoperative [...] large, extending almost across both gutters and senior care down the distance to | | her [...] to PACU in | | good condition.Dori Reed [facility]: 08/23/2014 12:45:20DT: 08/23/2014 | | 14:10:20Job #: [id number] | + + documented in this encounter Visit Diagnoses + + | Diagnosis | + + | Morbid obesity (HCC) - Primary Morbid obesity | + + documented in this encounter Administered Medications + +--------+ +-------+------+------+ | Medication Order | MAR | Action | Dose | Rate | Site | | | Action | Date | | | | + +--------+ +-------+------+------+ | aprepitant (EMEND) capsule 40 | Given | 03/25/20 | 40 mg | | | | mg 40 mg, oral, PREPROCEDURE | | 15 9:14 | | | | | ONCE (DISPENSE), 1 dose, Starting | | AM PDT | | | | | Thu08/23/14 at 0838, Until Wed | | | | | | | 08/23/14 at 0914 | | | | | | + +--------+ +-------+------+------+ +---+---+ | | | +---+---+ + +---------+ +--------+---+---+ | fentaNYL citrate (PF) | New Bag | 08/24/19 | 50 mcg | | | | (SUBLIMAZE) injection 50 mcg 50 | | 15 1:24 | | | | | mcg, intravenous, POSTPROCEDURE | | PM PDT | | | | | PRN, Starting Thu08/23/14 at | | | | | | | 1118, Until Thu08/23/14 at 2206, | | | | | | | moderate pain | | | | | | + +---------+ +--------+---+---+ +---------+ +--------+---+---+ | New Bag | 08/24/19 | 50 mcg | | | | | 15 1:03 | | | | | | PM PDT | | | | +---------+ +--------+---+---+ + +---+ | | | + +---+ | fentaNYL citrate (PF) | | | (SUBLIMAZE) injection 1 dose, | | | Starting 08/23/14 at 1302, | | | Until Thu08/23/14 at 1303 | | + +---+ | | | + +---+ + +---------+ + +---+ + | lactated ringers IV 1,000 mL, | New Bag | 08/24/19 | 1,000 mL | | Left Arm | | intravenous, ONCE, 1 dose, Thu | | 15 9:30 | | | | | 08/23/14 at 0845 | | AM PDT | | | | + +---------+ + +---+ + +---+---+ | | | +---+---+ + +-------+ +---------+---+ + | lidocaine (XYLOCAINE) 10 mg/mL | Given | 08/24/19 | 0.25 mg | | Left Arm | | (1 %) injection subcutaneous, | | 15 9:30 | | | | | PREPROCEDURE PRN, Starting Wed | | AM PDT | | | | | 08/23/14 at 0838, Until Wed | | | | | | | 08/23/14 at 2206, IV start | | | | | | + +-------+ +---------+---+ + +---+---+ | | | +---+---+ documented in this encounter
--- OUTSIDE RECORDS SUMMARY | ~2019-06-14 | XMS | Encounter Summary ---
Demographics + + + | Address | [address] | | | [place] [address] | + + + | Home Phone [...] | Author | [facility] | | | and [place] | + + + | Organization | [facility] [...] + +------+ + | Care Director Of Food And Nutrition Name | Role | Phone | + +------+ + | Bassam Ross DO | PCP | | + +------+ + Reason for Visit +--------+ + | Reason | Comments | +--------+ + | Apnea | | +--------+ + Encounter Details +--------+---------+ + + + | Date | Type | Department | Care Team | Description | +--------+---------+ + + + | 05/12/ | Office | [facility] | Jermaine Fairchild | ANNABEL (obstructive | | 2012 | Visit | SLEEP DISORDER [address] | MD [address] | sleep apnea) | | | | [address] [place] | [address] [place] | (Primary Dx) | | | | [place] [address] | [place] [address] | | | | | [phone] | [phone] | | | | | | | [...] + + + | Blood Pressure | 136/86 | 05/12/2013 9:58 AM | | | | | PST | | + + + + + | Pulse | 90 | 05/12/2013 9:58 AM | | | | | PST | | + + + + + | Temperature | - | - | | + + + + + | Respiratory Rate | 18 | 05/12/2013 9:58 AM | | | | | PST | | + + + + + | Oxygen Saturation | - | - | | + + + + + | Inhaled Oxygen | - | - | | | Concentration | | | | + + + + + | Weight | 197.8 kg (436 lb) | 05/12/2013 9:58 AM | | | | | PST | | + + + + + | Height | - | - | | + + + + + | Body Mass Index | 79.75 | 10/02/2011 12:00 AM | | | | | PDT | | + + + + + documented in this encounter Progress Notes Jermaine Fairchild Jr., MD - 05/12/2013 10:28 AM PSTThe patient underwent PSG guided PAP Titr ation last night where it appears that CPAP 14cm or higher will be required for control of O SA and oxygen desaturation. A: ANNABEL with probably CAHO. I've reviewed this with the patient. Treatment with CPAP is disc ussed. I've also told her that weight loss is the best treatment and that I would do whateve r I could to help her become a candidate for bariatric surgery. The mechanisms of action of CPAP in treating ANNABEL were discussed in detail with the patient. I've discussed desensitizati on techniques as well as some imagery techniques that can be helpful. I've discussed the use of heated humidity. And I've discussed our PAP Compliance Clinic. P: ACPAP 14-20cm F/U in PAP Compliance CLinic in 1 week. documented in this encounter Plan of Treatment +--------+---------+ + + + | Date | Type | Specialty | Care Team | Description | +--------+---------+ + + + | 06/14/ | Office | Pulmonology | Adolfo Zazueta, | | | 2019 | Visit | | MD Jac JOHNSON | | | | | | [place] | | | | | | [phone] | | | | | | | | +--------+---------+ + + + | 01/18/ | Office | Sleep Medicine | Jermaine Fairchild | | 2019 | Visit | | MD Jac [place] | | | | | | [place] | | | | | | [place] [address] | | | | | | [phone] | | | | | | | | +--------+---------+ + + + documented as of this encounter Visit Diagnoses + + | Diagnosis | + + | ANNABEL (obstructive sleep apnea) - Primary Obstructive sleep apnea (adult) (pediatric) | + + documented in this encounter"
--- OUTSIDE RECORDS SUMMARY | ~2019-06-14 | XMS | Encounter Summary ---
Demographics + + + | Address | [address] | | | [place] [address] | + + + | Home Phone [...] | + + +---------+ + | Lana Easton | ECON | Unknown | | + + +---------+ + Care Team Providers + +------+ + | Care Case Management Social Worker Name | Role | Phone | + +------+ + | Bassam Ross DO | PCP | | + +------+ + Reason for Visit + + + | Reason | Comments | + + + | Prior Authorization | Britance | | Request | | + + + Encounter Details +--------+ + + + + | Date | Type | Department | Care Team | Description | +--------+ + + + + | 01/11/ | Telephone | Cardiology | Sheila Loya | Prior Authorization | | 2018 | | [facility] at [facility] | [address]UL[address] | Request (Jardiance) | | | | [address] | [address] [place], | | | | | Mailcode: [facility] | [place] [address] | | | | | [facility] | [phone] | | | | | and [facility], | | | | | | [address] | | | | | | [place], [place] | | | | | | [address] | | | | | | [phone] | | | +--------+ + + + [...]
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
--- OUTSIDE RECORDS SUMMARY | ~2019-06-14 | XMS | Encounter Summary ---
Demographics + + + | Address | [address] | | | [place] [address] | + + + | Home Phone | | + + + | Preferred Language | Unknown | + + + | Marital Status | Single | + + + | Buddhism Affiliation | Unknown | + + + | Race | Unknown | + + + | Ethnic Group | Unknown | + + + Author + + + | Author | [facility] | | | and [place] | + + + | Organization | [facility] | | [...] Providers + +------+ + | Care Dental Hygiene Professor Name | Role | Phone | + +------+ + | Iqra Peralta MD | PCP | | + +------+ + Encounter Details +--------+ + + + + | Date | Type | Department | Care Team | Description | +--------+ + + + + | 01/27/ | Abstract | [facility] [place] | Isabel Lu | | | 2017 | | NEPHROLOGY [address] | M, DO [address] | | | | | [address] | [address] | | | | | [place] | [place] | | | | | [address] | [address] | | | | | [phone] | | | +--------+ + + + [...] [place] | | | | | | [place] | | | | | | [address] | | | | | | | | +--------+---------+ + + + | 01/18/ | Office | Sleep Medicine | Jermaine Fairchild | | 2019 | Visit | | MD [address] | | | | | | [place] | | | | | | [place] [address] | | | | | | [phone] | | | | | | | | +--------+---------+ + + + documented as of this encounter Procedures + +--------+ + + + | Procedure Name | Priori | Date/Time | Associated Diagnosis | Comments | | | ty | | | | + +--------+ + + + | EXTERNAL LAB: HORTENCIA | Routin | 01/20/2018 | | Results for this | | | e | | | procedure are in the | | | | | | results section. | + +--------+ + + + | EXTERNAL LAB: | Routin | 01/20/2018 | | Results for this | | GLUCOSE | e | | | procedure are in the | | | | | | results section. | + +--------+ + + + | EXTERNAL LAB: | Routin | 01/20/2018 | | Results for this | | ALBUMIN | e | | | procedure are in the | | | | | | results section. | + +--------+ + + + | EXTERNAL LAB: | Routin | 01/20/2018 | | Results for this | | PHOSPHORUS | e | | | procedure are in the | | | | | | results section. | + +--------+ + + + | EXTERNAL LAB: | Routin | 01/20/2018 | | Results for this | | CALCIUM | e | | | procedure are in the | | | | | | results section. | + +--------+ + + + | EXTERNAL LAB: CARBON | Routin | 01/20/2018 | | Results for this | | DIOXIDE | e | | | procedure are in the | | | | | | results section. | + +--------+ + + + | EXTERNAL LAB: | Routin | 01/20/2018 | | Results for this | | CHLORIDE | e | | | procedure are in the | | | | | | results section. | + +--------+ + + + | EXTERNAL LAB: | Routin | 01/20/2018 | | Results for this | | POTASSIUM | e | | | procedure are in the | | | | | | results section. | + +--------+ + + + | EXTERNAL LAB: SODIUM | Routin | 01/20/2018 | | Results for this | | | e | | | procedure are in the | | | | | | results section. | + +--------+ + + + | EXTERNAL LAB: | Routin | 01/20/2018 | | Results for this | | VITAMIN D, | e | | | procedure are in the | | 25-HYDROXY | | | | results section. | + +--------+ + + + | EXTERNAL LAB: | Routin | 01/20/2018 | | Results for this | | URINALYSIS | e | | | procedure are in the | | | | | | results section. | + +--------+ + + + | EXTERNAL LAB: | Routin | 01/20/2018 | | Results for this | | PROTEIN/CREATININE | e | | | procedure are in the | | RATIO | | | | results section. | + +--------+ + + + | EXTERNAL LAB: CBC | Routin | 01/20/2018 | | Results for this | | | e | | | procedure are in the | | | | | | results section. | + +--------+ + + + | EXTERNAL LAB: EGFR | Routin | 01/20/2018 | | Results for this | | | e | | | procedure are in the | | | | | | results section. | + +--------+ + + + | EXTERNAL LAB: | Routin | 01/20/2018 | | Results for this | | CREATININE | e | | | procedure are in the | | | | | | results section. | + +--------+ + + + | URINALYSIS WITH | Routin | 01/20/2018 | | Results for this | | MICROSCOPIC | e | | | procedure are in the | | | | | | results section. | + +--------+ + + + documented in this encounter Results External Lab: Urinalysis (01/20/2018) + + + + + + | Component | Value | Ref Range | Performed | Pathologist | | | | | At | Signature | + + + + + + | UA Blood, | negative | | EXTERNAL | | | External | | | LAB | | + + + + + + | UA Glucose, | normal | | EXTERNAL | | | External | | | LAB | | + + + + + + | UA Ketones, | negative | | EXTERNAL | | | External | | | LAB | | + + + + + + | UA Ph, | 6 | | EXTERNAL | | | External | | | LAB | | + + + + + + | UA | >300 | | EXTERNAL | | | Proteins, | | | LAB | | | External | | | | | + + + + + + | UA RBC, | 5 | | EXTERNAL | | | External | | | LAB | | + + + + + + | UA Specific | 1.018 | | EXTERNAL | | | [place], | | | LAB | | | External | | | | | + + + + + + | UA | small | | EXTERNAL | | | Leukocyte [...] | | | + +---------+ + + Urinalysis With Microscopic (01/20/2018) + + + + + + | Component | Value | Ref Range | Performed | Pathologist | | | | | At | Signature | + + + + + + | WBC UA | 50 | /HPF | | | + + + + + + | Clarity | Slightly Cloudy | | | | + + + + + + | Color, | Yellow | Light Yellow, | | | | Urine | | Yellow | | | + + + + + + | BACTERIA UA | 1+ (A) | Negative /HPF | | | + [...] | Urine | + + External Lab: Protein/Creatinine Ratio (01/20/2018) + + + + + + | Component | Value | Ref Range | Performed | Pathologist | | | | | At | Signature | + + + + + + | Protein/Cre | 3.227 (A) | 0.2 | | | | atinine | | | | | | Ratio, | | | | | | External | | | | | + + + + + + + + | Specimen | + + | | + + External Lab: HORTENCIA (01/20/2018) + +-------+ + + + | Component | Value | Ref Range | Performed | Pathologist | | | | | At | Signature | + +-------+ + + + | BUN, | 15 | 6 - 23 | EXTERNAL | | | External | | | LAB | | + +-------+ + + + + +---------+ + + | Performing | Address | City/State/Zipcode | Phone Number | | Organization | | | | + +---------+ + + | EXTERNAL LAB | | | | + +---------+ + + External Lab: Glucose (01/20/2018) + +---------+ + + + | Component | Value | Ref Range | Performed | Pathologist | | | | | At | Signature | + +---------+ + + + | Glucose, | 122 (A) | 70 - 100 | EXTERNAL | | | External | | | LAB | | + +---------+ + + + + +---------+ + + | Performing | Address | City/State/Zipcode | Phone Number | | Organization | | | | + +---------+ + + | EXTERNAL LAB | | | | + +---------+ + + External Lab: Albumin (01/20/2018) + +-------+ + + + | Component | Value | Ref Range | Performed | Pathologist | | | | | At | Signature | + +-------+ + + + | Albumin, | 3.7 | 3.5 - 5 | EXTERNAL | | | External | | | LAB | | + +-------+ + + + + +---------+ + + | Performing | Address | City/State/Zipcode | Phone Number | | Organization | | | | + +---------+ + + | EXTERNAL LAB | | | | + +---------+ + + External Lab: Phosphorus (01/20/2018) + +-------+ + + + | Component | Value | Ref Range | Performed | Pathologist | | | | | At | Signature | + +-------+ + + + | Phosphorus, | 3.6 | 2.5 - 5 | EXTERNAL | | | External | | | LAB | | + +-------+ + + + + +---------+ + + | Performing | Address | City/State/Zipcode | Phone Number | | Organization | | | | + +---------+ + + | EXTERNAL LAB | | | | + +---------+ + + External Lab: Calcium (01/20/2018) + +-------+ + + + | Component | Value | Ref Range | Performed | Pathologist | | | | | At | Signature | + +-------+ + + + | Calcium, | 9.5 | 8.4 - 10.2 | EXTERNAL | | | External | | | LAB | | + +-------+ + + + + +---------+ + + | Performing | Address | City/State/Zipcode | Phone Number | | Organization | | | | + +---------+ + + | EXTERNAL LAB | | | | + +---------+ + + External Lab: Carbon Dioxide (01/20/2018) + +-------+ + + + | Component | Value | Ref Range | Performed | Pathologist | | | | | At | Signature | + +-------+ + + + | Carbon | 28 | 23 - 32 | EXTERNAL | | | Dioxide, | | | LAB | | | External | | | | | + +-------+ + + + + +---------+ + + | Performing | Address | City/State/Zipcode | Phone Number | | Organization | | | | + +---------+ + + | EXTERNAL LAB | | | | + +---------+ + + External Lab: Chloride (01/20/2018) + +-------+ + + + | Component | Value | Ref Range | Performed | Pathologist | | | | | At | Signature | + +-------+ + + + | Chloride, | 99 | 99 - 110 | EXTERNAL | | | External | | | LAB | | + +-------+ + + + + +---------+ + + | Performing | Address | City/State/Zipcode | Phone Number | | Organization | | | | + +---------+ + + | EXTERNAL LAB | | | | + +---------+ + + External Lab: Potassium (01/20/2018) + +-------+ + + + | Component | Value | Ref Range | Performed | Pathologist | | | | | At | Signature | + +-------+ + + + | Potassium, | 4.4 | 3.5 - 5.1 | EXTERNAL | | | External | | | LAB | | + +-------+ + + + + +---------+ + + | Performing | Address | City/State/Zipcode | Phone Number | | Organization | | | | + +---------+ + + | EXTERNAL LAB | | | | + +---------+ + + External Lab: Sodium (01/20/2018) + +-------+ + + + | Component | Value | Ref Range | Performed | Pathologist | | | | | At | Signature | + +-------+ + + + | Sodium, | 141 | 135 - 145 | EXTERNAL | | | External | | | LAB | | + +-------+ + + + + +---------+ + + | Performing | Address | City/State/Zipcode | Phone Number | | Organization | | | | + +---------+ + + | EXTERNAL LAB | | | | + +---------+ + + External Lab: Vitamin D, 25-Hydroxy (01/20/2018) + +-------+ + + + | Component | Value | Ref Range | Performed | Pathologist | | | | | At | Signature | + +-------+ + + + | Vitamin D, | 45 | 30 - 100 | EXTERNAL | | | 25-Hydroxy, | [...] + +---------+ + + External Lab: CBC (01/20/2018) + + + + + + | Component | Value | Ref Range | Performed | Pathologist | | | | | At | Signature | + + + + + + | WBC, | 9.5 | 4 - 11 | EXTERNAL | | | External | | | LAB | | + + + + + + | HGB, | 14.4 | 12 - 16 | EXTERNAL | | | External | | | LAB | | + + + + + + | HCT, | 43.1 | 35 - 45 | EXTERNAL | | | External | | | LAB | | + + + + + + | PLT, | 308 | 140 - 440 | EXTERNAL | | | External | | | LAB | | + + + + + + | RBC, | 4.72 | 4 - 6 | EXTERNAL | | | External | | | LAB | | + + + + + + | MCV, | 94 (A) | 35 - 45 | EXTERNAL | | | External | | | LAB | | + + + + + + | RDW, | 17.5 (A) | 10.5 - 15 | EXTERNAL | | | External | | | LAB | | + + + + + + + +---------+ + + | Performing | Address | City/State/Zipcode | Phone Number | | Organization | | | | + +---------+ + + | EXTERNAL LAB | | | | + +---------+ + + External Lab: eGFR (01/20/2018) + +-------+ + + + | Component | Value | Ref Range | Performed | Pathologist | | | | | At | Signature | + +-------+ + + + | eGFR, | 97 | 60 | EXTERNAL | | | External | [...] + +---------+ + + External Lab: Creatinine (01/20/2018) + +-------+ + + + | Component | Value | Ref Range | Performed | Pathologist | | | | | At | Signature | + +-------+ + + + | Creatinine, | 0.65 | 0.6 - 1.3 | EXTERNAL | | | External | [...]
--- OUTSIDE RECORDS SUMMARY | ~2019-06-14 | XMS | Encounter Summary ---
Demographics + + + | Address | [address] | | | [place] [address] | + + + | Home Phone | | + + + | Preferred Language | Unknown | + + + | Marital Status | Single | + + + | Confucianism Affiliation | NRP | + + + [...] | + + +---------+ + | Lana Leland | ECON | Unknown | | + + +---------+ + Care Team Providers + +------+ + | Care Ring Striker Name | Role | Phone | + +------+ + | Iqra Peralta MD | PCP | | + +------+ + Encounter Details +--------+------+ + + + | Date | Type | Department | Care Team | Description | +--------+------+ + + + | 02// | Lab | [facility] at [facility] | | Impaired intestinal | | 2019 | | [address] | | absorption; H/O | | | | [place], [place] | | bariatric surgery; | | | | [address] | | Diabetes mellitus | | | | [phone] | | type 2, | | | [...] encounter Results CBC (HEMOGRAM) ONLY (07/09/2018 4:20 PM PST) + + + + + + | Component | Value | Ref Range | Performed | Pathologist | | | | | At | Signature | + + + + + + | WHITE CELL | 10.53 | 3.50 - 10.80 | [facility] | | | COUNT | | K/cu mm | LABORATORY | | | | | | SERVICES, | | | | | | CORE | | + + + + + + | RED CELL | 4.85 | 4.00 - 5.20 | [facility] | | | COUNT | | M/cu mm | LABORATORY | | | | | | SERVICES, | | | | | | CORE | | + + + + + + | HEMOGLOBIN | 15.1 | 12.0 - 16.0 | [facility] | [...] + + + + | PLATELET | 407 (H) | 150 - 400 K/cu | [facility] | [address] | [place] [address] | | | SERVICES, CORE | [address] | | | + + + + + HEMOGLOBIN A1C, BLOOD (07/09/2018 4:20 PM PST) [...] | [facility] | | considered for monitoring correction glycemic control in patients with: | LABORATORY [...] | + + + + + | [facility] | [address] | [place] [address] | | | SERVICES, SPECIAL | [address] | | | | IMM + COAG | | | | + + + + + VITAMIN D, 25-HYDROXY, SERUM (07/09/2018 4:20 PM [...] | + + + + + | [facility] | [address] | [place] [address] | | | SERVICES, CORE | [address] [...] LABORATORY | [address] | [place] [address] | | | SERVICES, CORE | [address] [...] B: | | | | | | [employer]/CSPerformed | | | | | | by [employer],[address] | | | | | | [address] [facility] | | | | | | [address] | | | | | | [phone].[employer]. | | | | | | com[employer]ker [...] [facility] | [address] | [place], [place] | | | [address] | | [address] | | + + + + + [...] | + + + + + | [facility] | [address] | [place] [address] | | | SERVICES, CORE | [address] [...] [facility] | | | | | | [employer]. See | | | | | | Compliance Statement B: | | | | | | [employer]/CSPerformed | | | | | | by [employer],[address] | | | | | | [address], [facility] [place] | | | | | | [address] | | | | | | [phone].[employer]. | | | | | | [facility], Iker Angelo MD, | | | | | | [...] [facility] | [address] | [place], [place] | | | [address] | | [address] | | + + + + + [...] | + + + + + | [facility] | [address] | [place] [address] | | | TAVARES, CORE | [address] | | | [...] LABORATORY | [address] | [place] [address] | | | SERVICES, SPECIAL | [address] [...] and | 50 - 200 ng/mL | [facility] | | | | Female >18 years: [...] | + + + + + | [facility] | [address] | [place] [address] | | | MIR CHAPIN | [address] [...] | | | LABORATORY | | | T[facility] | | | SERVICES, | | | [...] [facility] | [address] | [place] [address] | | | SERVICES, CORE | [address] | | | + + + + + documented in this encounter Visit Diagnoses + + | Diagnosis | + + | Impaired intestinal absorption Unspecified intestinal malabsorption | + + | H/O bariatric surgery Bariatric surgery status | + + | Diabetes mellitus type 2, diet-controlled (HCC) Type II or unspecified type diabetes | | mellitus without mention of complication, not stated as uncontrolled | + + documented in this encounter"
--- OUTSIDE RECORDS SUMMARY | ~2019-06-14 | XMS | Encounter Summary ---
Demographics + + + | Address | [address] | | | [place] [address] | + + + | Home Phone [...] Team Providers + +------+ + | Care Psychologist Industrial Organizational Name | Role | Phone | + +------+ + | Bassam Ross DO | PCP | | + +------+ + Reason for Visit + + + | Reason | Comments | + + + | Pre-operative | | | evaluation | | + + + Encounter Details +--------+---------+ + + + | Date | Type | Department | Care Team | Description | +--------+---------+ + + + | 08/22/ | Office | Preoperative | Piper Avila | Preop examination | | 2015 | Visit | Medicine Clinic at | F, BIAS BINDING CUTTER | (Primary Dx); Morbid | | | | [facility] 4th Floor [address] | | obesity (HCC); | | | | [facility] | | Other specified | | | | Mailcode: CH4S | | pre-operative | | | | [facility] | | examination | | | | and Healing, | | | | | | Building 1,4th Floor | | | | | | [place], [place] | | | | | | [address] | | | | | | [phone] | | | +--------+---------+ + + + Anesthesia Record + + + + + | Procedure Name | Responsible | Anesthesia Start | Anesthesia Stop Time | | | Anesthesiologist | Time | | + + + + + | LAPAROSCOPY SLEEVE | Nixon Nichole, | 08/23/14 1025 | 08/23/14 1242 | | GASTRECTOMY NOT | MD,PhD | | | | PERFORMED (N/A | [...] | Periph | [phone]--contact admin for | MORTGAGE OPERATIONS MANAGER | Discharge | | eral | [...] + + + | Blood Pressure | 148/92 | 08/22/2014 4:28 PM | | | | | PDT | | + + + + + | Pulse | 106 | 08/22/2014 4:24 PM | | | | | PDT | | + + + + + | Temperature | 37 C (98.6 F) | 08/22/2014 4:24 PM | | | | | PDT | | + + + + + | Respiratory Rate | 14 | 08/22/2014 4:24 PM | | | | | PDT | | + + + + + | Oxygen Saturation | 95% | 08/22/2014 4:24 PM | | | | | PDT | | + + + + + | Inhaled Oxygen | - | - | | | Concentration | | | | + + + + + | Weight | 193.7 kg (427 lb) | 08/22/2014 4:24 PM | | | | | PDT | | + + + + + | Height | 160 cm (5' 3") | 08/22/2014 4:24 PM | neck 48 cm | | | | PDT | | + + + + + | Body Mass Index | 75.64 | 08/22/2014 4:24 PM | | | | | PDT | | + + + + + documented in this encounter Patient Instructions Patient Instructions Piper Avila, BI[employer] BINDING CUTTER - 08/22/2014 4:46 PM PDT PREOPERATIVE INSTRUCTIONS Empty stomach before [...] of water on the morning of surgery: Alprazolam, carvedilol, armour thyroid Do NOT take the following medications on the morning of surgery: furosemide Other medications not specifically mentioned are at your discretion as to taking or not taking on the morning of surgery. ALPRAZolam 0.5 mg oral tablet, Take by mouth. CARVEDILOL ORAL, Take 50 mg by mouth two times daily. cholecalciferol 50,000 unit oral capsule, Take by mouth three times weekly (on Thu, Thu, a thu). cloNIDine (CATAPRES) 0.1 mg oral tablet, Take 0.1 mg by mouth once daily at bedtime. furosemide 40 mg oral tablet, as needed. Pramipexole (MIRAPEX) 0.75 mg oral tablet, Take 0.75 mg by mouth two times daily. thyroid (ARMOUR THYROID) 60 mg oral tablet tablet, Take 60 mg by mouth once daily. Unless otherwise directed by your surgeon, do not take any Aspirin, vitamin E or non-shayla roidal anti-inflammatory (NSAIDs i.e. Advil, Aleve, Ibuprofen) or herbal supplements 7-14 da ys prior to your surgery. These drugs may interfere with normal blood clotting and may cause excessive bleeding and bruising during or after the surgery. If you are taking Coumadin (warfarin), Plavix or any other blood thinners please let you r surgical team know as medication changes may be necessary. If you need a pain medication for general purposes, use Tylenol as directed. OK to take it even on the morning of surgery, if needed. If you are in doubt about any medications that you are taking, please contact our office . Special Reminders for patients undergoing Bariatric Surgery: CHG wipe packet and instructions on proper skin cleaning Please be sure to follow the se manning instructions regarding proper skin preparation before surgery. Other Important Guidelines Do not shave the surgical area Do not smoke, drink alcohol or use recreational drugs for 24 hours before your surgery Watch for any change in your health condition. Let your surgeon know right away if you do not feel well. Do not wear makeup, perfume, lotions, deodorant, powder or hairspray. Do not wear any jewelry to the hospital. Wear loose, comfortable clothing. Leave all your valuables at home. Allow enough travel time so you re not late for your check in for surgery. Take a bath or shower and remember [...] or walk. Surgery check-in location: Admitting - [facility], [facility] main campus medical center Surgery Check in Time: The Preoperative Medicine Clinic is not in the position to give you accurate information regarding surgical check in time. We refer you back to your surgical office regarding this important information. Going Home Your surgical team will decide when you are medically ready to go home. If you are released to go home on the same day as your procedure/surgery please note the following: You will not be able to drive. You will be required to have a competent person drive you or accompany you by taxi or pu blic transportation on the day of discharge. It is also required that you have a competent person assist you and look after you on th e first night after you have undergone regional blocks (72 hours for patients going home wit h regional block pump), deep sedation, and/or general anesthesia. If you stayed in the hospital after surgery, please arrange for your ride to come for yo u around 9AM on the day your doctor says you can go home. If you have questions or concerns after you go home, call your doctor s office. If it is after office hours, call the [facility] skein mercerizing machine operator at [phone] and ask them to page him or h er. documented in this encounter Progress Notes Jarod Emmanuel MA - 08/22/2014 6:11 PM PDT Venipuncture performed in clinic, blood sample obtained from Left hand site Hemoglobin A1C POCT performed during clinic visit. Blood sample obtained from venipuncture performed to obt ain other lab tests. hPiper thayer FNP - 08/22/2014 4:48 PM PDTFormatting of this note might be different from the kimberlyn lMahendra PREOPERATIVE CONSULT NOTE Author: JULIET WILKINSON Referring Physician: Dori Reed MD Primary Care Provider: Bassam Ross DO Reason for Consult: Preoperative evaluation and risk assessment Proposed Procedure/Date: LAPAROSCOPIC POSSIBLE OPEN SLEEVE GASTRECTOMYDate: 08/23/2014[facility] 6A HISTORY OF PRESENT ILLNESS: Aspen Darden is a 43 y.o. female here for preoperative evalua tion for above procedure. Pt has dx of Morbid obesity. Sy . She had lap band surgery x 2 ( 05/2004) (2005) lap band laparoscopic removal in 2010. She has failed lap band surgery and m edical weight loss. She has a BMI of 75 (427 lbs) Pertinent medical history: HTN: Stable/controlled/compensated. Pt has been treated for hype rtension for about 18 hours on two agent therapy. She is only taking furosemide prn for lowe r extremity swelling. She reports usual bp as diastolic 90-78 with systolic 150-126. 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 She den ies dialysis or rx at that time. She denies diabetes or chronic kidney disease, or kidney st ones Perioperative cardiac risks: None Functional Capacity: Low (1-4 mets), limited by bilateral knee pain, using wheeled walker Prior complications of anesthesia: takes longer to come out of anesthesia . She is using a cpap using 2 liters of oxygen at hs ROS: Pertinent HPI: Pulmonary: Smoked 3 cig day for 16 years. Quit about 3 years ago Asthma aggravated by stress. No hosp or ER. She uses albuterol, ventolin rarely. She uses l ess <2x week Oxygen 2 liters at hs with a cpap no cough no shortness of breath no wheezing Pt. Has asthm a Classification: Frequency: very infrequent ER Visits: none Hospital Visits: none Dx of sleep apnea Uses BiPap/CPAP Cardiovascular: History of heart murmur Pulm htn Using wheeled walker for osteoarthritis of bilateral knees Functional Capacity: Low - chest pressure and syncope no CAD no CHF hypertension well controlled no pacemaker GI/Hepatic: H/o laparoscopic gastric banding 08/2013 no GI Bleed no GERD No liver disease no hepatitis : Within Defined Limits except as noted below Endo: BMI 70 Thyroid:+ hypothyroid Neurological: Treatments: Treated w/medications no seizures no HX CORTICOSTEROID psychiatri c problem bipolar disorder and depression no dementia pain In chronic pain: Yes Current Pain Level: Current pain level: 3 MS: Within Defined Limits except as noted below no arthritis Heme/Onc: Within Defined Limits except as noted below Pt. has: no active bleeding no Bleedi ng diathesis / thrombotic bleeding Malignancy: no cancer, Location: Metastasis: Skin: Within Defined Limits except as noted below No open wounds or sores No hx MRSA/VRE/Ac tive skin infection Physical Exam General: Patients general appearance: Alert, Cooperative, Age appropriate, Moderate distres s and Flushed Head & Neck/Airway: NC/AT; PERRL; EOMI; nl appearing ears and nose. Neck ROM: full Neck Cir cumference: 48 cm. TM Distance:Normal Dentition: dental implants, bridges or caps present and missing teeth Be jeanne: No Mallampati: III Mouth Opening: > = 3 cm C-Spine: normal Neck Anatomy: Thick, obese a nd Thyroid cartilage not visible Jaw Protrusion: Normal, lower incisors can protrude past up per incisors Lung Exam: No respiratory distress. Normal breathing pattern. breath sounds normal Cardiac: No murmurs, gallops or rubs. Rhythm: regular Rate: normal Abdominal: General Findings: no abdominal tenderness and Nondistended obesity Bowel Sounds: bowel sounds are normal Musculoskeletal: Findings: tone normal Neuro/Psych: No focal neuro deficits; Alert and appropriate; nl affect. alert Findings: Hazardous Substances Scientist nial nerves 2-12 intact, Motor 5/5 strength globally with normal tone, No tremor, Alert, gini ented to person, place, time and Normal affect Integument: No open rashes or lesions noted. - lesion, rash and open wounds Color: lower extremity mottling pink Texture: coarse Turgor: turgor normal Implants: Comments: BMI 75 Current medications reviewed / updated Current Medication List Name Sig ALPRAZOLAM 0.5 [...] echo and chest xray findings. Followed by sampler and test preparer in [place]. Past surgery reviewed and updated Past Surgical History Procedure Date C section 1998 Tonsillectomy 1996 Knee surgery 1997 Gastric banding 2004, 2007, 2011 Skin and subcutaneous tissue surgery 2006 Foot surgery 2009 - 2011 3x Hysterectomies, vaginal 2009 Appendectomy for ruptured appendix with abscess 2012 Gallbladder surgery 2008 Family history reviewed / updated Family History Problem Relation Diabetes Father Hypertension Mother Obesity Mother Hypertension Father Heart Disease Father CA 78 Social history reviewed / updated History Substance Use Topics Smoking status: Former Smoker Quit date: 01/03/1999 Smokeless tobacco: Never Used Comment: quit 12 years ago Alcohol Use: Yes Comment: social drinks (2-3 times per year) PHYSICAL EXAM: Last Vitals: BP 148/92 | Pulse 106 | Temp (Src) 37 C (98.6 F) (Oral) | RR 14 | Ht 1.6 m (5' 3") | Wt 193.686 kg (427 lb) | SpO2 95% | BMI 75.66 kg/(m^2) Body mass index is 75.66 k g/(m^2). LABS & DATA REVIEWED/ORDERED cmp, cbc, type screen, a1c , tsh Lab Results Component Value Date WBC 11.88 11/03/2013 HB 15.7 11/03/2013 HCT 48.1 11/03/2013 PLT 317 11/03/2013 MCV 97.6 11/03/2013 RDW 53.7 11/03/2013 Lab Results Component Value Date NA 140 11/03/2013 K 4.3 11/03/2013 CL 100 11/03/2013 BICARB 31 11/03/2013 BUN 15 11/03/2013 CR 0.59 11/03/2013 GLU 103 11/03/2013 CA 10.4 11/03/2013 AST 20 11/03/2013 ALT 27 11/03/2013 AP 89 11/03/2013 TBILI 0.5 11/03/2013 TP 7.4 11/03/2013 ALB 3.6 11/03/2013 Lab Results Component Value Date ABO B 08/15/1998 RH POS 08/15/1998 Lab Results Component Value Date A1C 5.2 11/03/2013 EKG: Personally reviewed. sinus tachycardia, rate 105. probable left abnormality. borderli ne Left axis 07/2014 dobutamine stress ECHO negative for ischemia, ekg negative for ischemia Sinus bradycardia 10/2013 Otherwise normal ECG When compared with ECG of 07-JAN-2010 15:37, Nonspecific T wave abnormality no longer evident in Anterior leads Confirmed by ALTAF DAO ([id number]) on 11/18/2013 6:41:11 PM Component Name transthoracic ECHO 10/2013 Value Range LV EF 65 50-70 % Result Impression 1. Sinus rhythm. 2. A 2-dimensional transthoracic echocardiogram with m-mode, spectral and color flow Dopple r was perfomed. 3. This was a technically difficult study with suboptimal views. 4. Overall left ventricular systolic function is normal with, an EF between 60 - 65 %. 5. Left Ventricle ejection fraction by m-mode measures . 6. No regional wall motion abnormalities. 7. The diastolic filling pattern is normal for the age of the patient. 8. The RV was not well visualized. 9. The left atrial size is normal. 10. , and the LA measures 3.9cm. 11. The right atrium was not well visualized. 12. The aortic valve is trileaflet and appears structurally normal. 13. There is no evidence of aortic regurgitation. 14. The mitral valve is normal. 15. The tricuspid valve appears structurally normal. 16. Mild tricuspid regurgitation present. 17. There is mild pulmonary hypertension. 18. The right ventricular systolic pressure (pulmonary artery systolic pressure), as measur ed by Doppler, is 37 + 10 = 47mmHg. 19. The pulmonic valve was not well visualized. 20. There is no pericardial effusion. 21. No mass visualized 22. Poor visualization. Definity was used to opacify the left ventricular chamber and impro ve delineation of the endocardial border. PULMONARY FUNCTION TESTING SPIROMETRY: The prebronchodilator FVC was 1.85 L or 59 % of predicted. The prebronchodilator FEV1 was 1.19 L or 45 % of predicted. FEV1/FVC ratio was 64 %. Following inhalation of albuterol patient's FEV1 walker to 1.38, 52% of predicted. This represents 190 mL improvement or 16%. LUNG VOLUMES: The total lung capacity was 3.60 L or 76 % of predicted. The residual volume was 1.63 L or 104 % of predicted. RV/TLC ratio was 137 % of predicted. DIFFUSION CAPACITY: The diffusion capacity was 18.9 mL/mmHg per minute or 74 % of predicted. IMPRESSION: Spirometry is consistent with primarily moderate restrictive physiology. The shape of the patient's flow volume loop and her response to albuterol as raised question regarding the presence of airflow obstruction. Lung volume testing is consistent with mild restrictive physiology. Diffusion capacity is borderline abnormal and is not corrected for measured hemoglobin. Given these pulmonary function values and physical characteristics the use findings seem primarily consistent with those noted with morbid obesity MEDICAL DECISION MAKIN ACC/AHA Perioperative Cardiac Risk [...] is: less than 1%. No further risk strati fication for coronary disease is indicated. ASSESSMENT and RECOMMENDATIONS: Surgical/anesthesia risk assessment: Aspen Darden is a 43 y.o. female with diagnosis of morbid obesity, scheduled for above. According to ACC/AHA guidelines, the patient does n ot meet criteria for additional testing. Has had pharm stress echo 07/2014, negative for isc hemia Medication management recommendations: The patient was advised to continue all usual med ications except as noted in Patient Instructions (After Visit Summary given to pt) Pre-procedure antibiotic recommendation: per surgeon Pt reported clear liquid diet, reviewed with patient HTN, borderline reading today. Take carvedilol dos History of lower extrem edema,without heart failure. HOld lasix dos Anxiety with bipolar and depression. Take alprazolam dos BMI 75 , 427 lbs with sleep apnea and oxygen at hs. To bring cpap tomorrow am Restrictive lung disease, per recent spirometry. Responsive to Bronchodilator. Can take ventolin in am Asthma, per patient, aggravated only by emotions. Infrequent use of ventolin Hypothyroidism, appears patient has stopped armour thyroid on her own, has not taken in awhile Difficult iv access The patient is stable / optimized for surgery. Additional testing/optimization is not nee ded. Thank you for the opportunity to contribute to this patient's care. JULIET WILKINSON [facility] PREOPERATIVE MEDICINE CLINIC AT [facility] 4TH FLOOR [address] [place] [address] I spent time (30 minutes, >50% of the visit) counseling the pt regarding perioperative risk (cardiac/bleeding/ DVT/ respiratory failure/ infection, etc) and methods to mitigate risk. I advised the patient regarding NPO requirements, hydration before surgery, showering, gen eral body hygiene. All pre-procedure instructions given to the patient (after-visit summary ). All of patient's questions were addressed. The patient verbalized understanding of the instructions given. documented in t his encounter Plan of Treatment + + +--------+ + + | Name | Type | Priori | Associated Diagnoses | Order Schedule | | | | ty | | | + + +--------+ + + | COMMUNICATION TO [facility] | Procedures | Routin | Preop examination | Ordered: 08/22/2014 | | LAB DRAW | | e | | | + + +--------+ + + | COMMUNICATION TO [facility] | Procedures | Routin | Morbid obesity | Ordered: 08/22/2014 | | LAB DRAW | | e | ([facility]) Preop | | | | | | examination | | + + +--------+ + + documented as of this encounter Procedures + +--------+ + + + | Procedure Name | Priori | Date/Time | Associated Diagnosis | Comments | | | ty | | | | + +--------+ + + + | AK COLLECTION VENOUS | Routin | 08/22/2014 | Other specified | | | BLOOD,VENIPUNCTURE | e | 6:11 PM | pre-operative | | | | | PDT | examination | | + +--------+ + + + | HEMOGLOBIN A1C, POC | Routin | 08/22/2014 | Morbid obesity | Results for this | | | e | 6:03 PM | ([facility]) Preop | procedure are in the | | | | PDT | examination | results section. | + +--------+ + + + | TSH | Routin | 08/22/2014 | Preop examination | Results for this | | | e | 5:32 PM | Morbid obesity | procedure are in the | | | | PDT | ([facility]) Other | results section. | | | | | specified | | | | | | pre-operative | | | | | | examination | | + +--------+ + + + | CBC (HEMOGRAM) ONLY | Routin | 08/22/2014 | Morbid obesity | Results for this | | | e | 5:30 PM | (HCC) Preop | procedure are in the | | | | PDT | examination | results section. | + +--------+ + + + | COMPLETE METABOLIC | Routin | 08/22/2014 | Morbid obesity | Results for this | | SET | e | 5:30 PM | (HCC) Preop | procedure are in the | | (NA,K,CL,CO2,BUN,CRE | | PDT | examination | results section. | | AT,GLUC,CA,AST,ALT,B | | | | | | JAYCEE TOTAL,ALK | | | | | | PHOS,ALB,PROT TOTAL) | | | | | + +--------+ + + + | CBC ONLY | Routin | 08/22/2014 | Morbid obesity | Results for this | | | e | 5:30 PM | (HCC) Preop | procedure are in the | | | | PDT | examination | results section. | + +--------+ + + + | ANTIBODY SCREEN | Routin | 08/22/2014 | Morbid obesity | Results for this | | | e | 5:30 PM | (HCC) Preop | procedure are in the | | | | PDT | examination | results section. | + +--------+ + + + | TYPE AND SCREEN | Routin | 08/22/2014 | Morbid obesity | Results for this | | | e | 5:30 PM | (HCC) Preop | procedure are in the | | | | PDT | examination | results section. | + +--------+ + + + | ABO & RH TYPE | Routin | 08/22/2014 | Morbid obesity | Results for this | | | e | 5:30 PM | (HCC) Preop | procedure are in the | | | | PDT | examination | results section. | + +--------+ + + + | 12 LEAD ECG | Routin | 08/22/2014 | Preop examination | Results for this | | | e | 3:28 PM | | procedure are in the | | | | PDT | | results section. | + +--------+ + + + documented in this encounter Results HEMOGLOBIN A1C,POC (08/22/2014 6:03 PM PDT) + +---------+ + + + | Component | Value | Ref Range | Performed | Pathologist | | | | | At | Signature | + +---------+ + + + | HEMOGLOBIN | 6.5 (A) | 4.0 - 5.7 % | [facility], | | | A1C,POC | | | [...] [facility] | [address] | [place] [address] | | | OF CARE TESTS | | | | + + + + + TSH (08/22/2014 5:32 PM PDT) + + + + + + | Component | Value | Ref Range | Performed | Pathologist | | | | | At | Signature | + + + + + + | TSH | 6.81 (H) | 0.44 - 4.75 | [facility] | [...] LABORATORY | [address] | [place] [address] | | | SERVICES, CORE | [address] | | | + + + + + CBC (HEMOGRAM) ONLY (08/22/2014 5:30 PM PDT) + + + + + + | Component | Value | Ref Range | Performed | Pathologist | | | | | At | Signature | + + + + + + | WHITE CELL | 11.65 (H) | 4.40 - 11.00 | [facility] [...] + + + + | HEMOGLOBIN | 16.5 (H) | 12.0 - 16.0 | [facility] | | | | | g/dL | LABORATORY | | | | | | SERVICES, | | | | | | CORE | | + + + + + + | HEMATOCRIT | 49.4 (H) | 36.0 - 46.0 % | [...] + + + + | MCHC | 33.4 | 33.0 - 35.5 | [facility] | | | | | g/dL | LABORATORY | | | | | | SERVICES, | | | | | | CORE | | + + + + + + | RDW SD | 48.7 (H) | 35.1 - 46.3 fL | [facility] | | | | | | LABORATORY | | | | | | SERVICES, | | | | | | CORE | | + + + + + + | PLATELET | 229 | 150 - 400 K/cu | [facility] | | | COUNT | | mm | LABORATORY | | | | | | SERVICES, | | | | | | CORE | | + + + + + + | MPV | 13.2 (H) | 9.7 - 12.3 fL | [facility] [...] LABORATORY | [address] | [place] [address] | | | SERVICES, CORE | [address] | | | + + + + + ANTIBODY SCREEN (08/22/2014 5:30 PM PDT) + + + + + [...] LABORATORY | [address] | [place] [address] | | | SERVICES, | [address] | | | | TRANSFUSION MEDICINE | | | | + + + + + ABO & RH TYPE (08/22/2014 5:30 PM PDT) + + + + + [...] LABORATORY | [address] | [place] [address] | | | SERVICES, | [address] | | | | TRANSFUSION MEDICINE | | | | + + + + + COMPLETE METABOLIC SET (NA,K,CL,CO2,BUN,CREAT,GLUC,CA,AST,ALT,BILI TOTAL,ALK PHOS,ALB,PROT TOTAL) (08/22/2014 5:30 PM PDT) + + + + + + | Component | Value | Ref Range | Performed | Pathologist | | | | | At | Signature | + + + + + + | GLUCOSE, | 104 (H) | 60 - 99 mg/dL | [...] | | | LABORATORY | | | [place] | | | SERVICES, | | | [...] + + + + | POTASSIUM, | 3.3 (L) | 3.4 - 5.0 | [facility] | | | PLASMA | | mmol/L | LABORATORY | | | (LAB) | | | SERVICES, | | | | | | CORE | | + + + + + + | CHLORIDE, | 98 | 97 - 108 mmol/L | [facility] | | | PLASMA | | | LABORATORY | | | (LAB) | | | SERVICES, | | | | | | CORE | | + + + + + + | TOTAL CO2, | 29 | 21 - 32 mmol/L | [facility] | | | PLASMA | | | LABORATORY | | | (LAB) | | | SERVICES, | | | | | | CORE | | + + + + + + | CALCIUM, | 9.5 | 8.6 - 10.2 | [...] + + + + | TOTAL | 8.2 | 6.4 - 8.2 g/dL | [facility] | | | PROTEIN, | | | LABORATORY | | | PLASMA | | | SERVICES, | | | (LAB) | | | CORE | | + + + + + + | ALBUMIN, | 3.9 | 3.5 - 4.7 g/dL | [facility] [...] + + + + | AST(SGOT) | 64 (H) | <=41 U/L | [facility] | [...] + + + + | ANION | 8 | 4 - 11 mmol/L | [facility] [...] + + + | ANION GAP | 8 | mmol/L | [facility] | | | | | | LABORATORY [...] | + + + + + | [facility] | [address] | [place] [address] | | | MIR [place] | [address] | | | + + + + + 12 LEAD ECG (08/22/2014 3:28 PM PDT) + + + + + + | Component | Value | Ref Range | Performed | Pathologist | | | | | At | Signature | + + + + + + | VENTRICULAR | 105 | bpm | [facility] | | | RATE | | | OF | | | | | | CARDIOLOGY | | + + + + + + | ATRIAL RATE | 105 | bpm | [facility] | | | | | | OF | | | | | | CARDIOLOGY | | + + + + + + | P-R | 188 | ms | [facility] | | [...] + + + + | QT | 336 | ms | [facility] | | | | | | OF | | | | | | CARDIOLOGY | | + + + + + + | QTC-AAMIR | 445 | ms | [facility] | | | | | | OF | | | | | | CARDIOLOGY | | + + + + + + | R AXIS | -78 | deg | [facility] | | | | | | OF | | | | | | CARDIOLOGY | | + + + + + + | T AXIS | 43 | deg | [facility] | | | | | | OF | | | | | | CARDIOLOGY | | + + + + + + | ECG | SINUS | | [facility] | | | IMPRESSION | TACHYCARDIAPROBABLE LEFT | | OF | | | | ATRIAL ABNORMALITY- | | CARDIOLOGY | | | | BORDERLINE ECG | | | | | | -Electronically signed | | | | | | by: JANAY CAPONE | | | | | | 08-22-2014 16:40:29 | | | | + + + + + + + + | Specimen | + + | | + + + + + | Narrative | Performed At | + + + | | [facility] | | | CARDIOLOGY | + + + + + | Procedure Note | + + | Daniel Tejada - 08/22/2014 5:00 PM PDT | + + + + + + + | Performing | Address | City/State/Zipcode | Phone Number | | Organization | | | | + + + + + | [facility] | [address] | [place], [place] | | | CARDIOLOGY | [address] | [address] | | + + + + + documented in this encounter Visit Diagnoses + + | Diagnosis | + + | Preop examination - Primary Preoperative examination, unspecified | + + | Morbid obesity (HCC) Morbid obesity | + + | Other specified pre-operative examination | + + documented in this encounter
--- OUTSIDE RECORDS SUMMARY | ~2019-06-14 | XMS | Encounter Summary ---
Demographics + + + | Address | [address] | | | [place] [address] | + + + | Home Phone [...] Team Providers + +------+ + | Care Electronic Parts Salesperson Name | Role | Phone | + +------+ + | Bassam Ross DO | PCP | | + +------+ + Reason for Visit +--------+ + | Reason | Comments | +--------+ + | Apnea | | +--------+ + Evaluate & Treat (Routine) +--------+--------+ + + + + | Status | Reason | Specialty | Diagnoses / | Referred By | Referred To | | | | | Procedures | Contact | Contact | +--------+--------+ + + + + | Closed | | Sleep | Diagnoses | [place], | Gurinder, | | | | Medicine | Obstructive | Bassam Mattson DO | Jermaine Rodriguez | | | | | sleep apnea | [address] | MD Jac Sousa | | | | | (adult) | [address] | [place] | | | | | (pediatric) | [address] | [facility] | | | | | Procedures | [address] | [place], [place] | | | | | [place] OFFICE | [place], [place] | [address] Phone: | | | | | OUTPATIENT | [address] | [phone] | | | | | NEW 45 | Phone: | Fax: | | | | | MINUTES | [phone] | [phone] | +--------+--------+ + + + + Encounter Details +--------+---------+ + + + | Date | Type | Department | Care Team | Description | +--------+---------+ + + + | 04/18/ | Office | [facility] | Jermaine Fairchild | ANNABEL (obstructive | | 2012 | Visit | SLEEP DISORDER [address] | MD Lars [address] | sleep apnea) | | | | [address] [place] | [address] [place] | (Primary Dx); | | | | [place] [address] | [place] [address] | Central alveolar | | | | [phone] | [phone] | hypoventilation | | | | | | syndrome; Obesity; | | | | | | Periodic limb | | | | | | movement disorder | | | | | | (PLMD); Depression | | | | | | with anxiety; | | | | | | Nephrotic syndrome | +--------+---------+ + + + Social History [...] + + + | Blood Pressure | 142/78 | 04/18/2013 11:10 AM | | | | | PST | | + + + + + | Pulse | 94 | 04/18/2013 11:10 AM | | | | | PST | | + + + + + | Temperature | - | - | | + + + + + | Respiratory Rate | 18 | 04/18/2013 11:10 AM | | | | | PST | | + + + + + | Oxygen Saturation | - | - | | + + + + + | Inhaled Oxygen | - | - | | | Concentration | | | | + + + + + | Weight | 198.7 kg (438 lb) | 04/18/2013 11:10 AM | | | | | PST | | + + + + + | Height | - | - | | + + + + + | Body Mass Index | 80.11 | 10/02/2011 12:00 AM | | | | | PDT | | + + + + + documented in this encounter Progress Notes Jermaine Fairchild Jr., MD - 04/18/2013 12:15 PM PSTFormatting of this note might be differen t from the original. Since last being seen over a year ago the patient has continued to be very compliant with C PAP. She did use a friend's machine for the month of March (we have no details about this) but it broke and she is back to using her old REMstar Pro with C-Flex which is set at 16cm of CPAP. She averages 8 hours and 54 minutes of use a day. She is not longer seeing Dr. Marina bowling for obesity surgery/. She had gastric banding surgery performed several years ago but had to have it removed 3 years ago. Prior to the surgery she weighed in excess of 500 pounds . By 10/03/08 her weight had fallen to 202.4 pounds. But it had risen to 387.7 pounds at our l ast visit. She is now up to 438 pounds and is being seen at [facility] for consideration of furthe r bariatric surgery. At our visit last year I advised an autotitrating CPAP which she was u nolale to get. I first saw this Patient on 03/16/2013 because of PSG ordered by Dr. Owusu which demonstr ated ANNABEL, CAHO and PLMS. Her weight at that time was 538.9 pounds. PSG performed on 3 demonstrated a prolonged latency to sleep onset of 33 minutes and a low sleep efficiency o f 71.3%. The amount of REM sleep was reduced to 1.6% of the evening. The AHI was 22.8. Oxyge n desaturation to 70.2% was noted and over 300 minutes was spent with an oxygen saturation o f less than 90% c/w Central Alveolar Hypoventilation of Obesity. PAP titration was performed on 03/21/2003 which revealed a marked increase in REM sleep in response to PAP. CPAP of 16c m was prescribed and weight loss was recommended. She was next seen on 09/14/2007 after under going gastric banding surgery in 2003. At this visit her weight was 317.4 pounds. PSG perfor [facility] on 09/19/2007 demonstrated an AHI of 29.1 with oxygen desaturation to 77.5%/ CPAP of 8cm was prescribed based on titration study of 09/20/2007. Weight loss continued and by 10/03/2008 was 202.4 pounds. PSG on 09/24/2008 demonstrated mild ANNABEL with an RDI of 6.6 and an AHI of on ly 5. Oxygen desaturation to 80% was noted but the patient spent only 20.3 minutes with an o xygen saturation of less than 88%. She was next seen in April of 2009 after her lap band was removed and she had gained 50 pounds. She was then lost to f/u until 10/02/2011. PSG on 10/20/2011 (pvuheq048.5 lbs) demonstrated an AHI of 29 and oxygen desaturation to 62% (69.1 minutes with an oxygen saturation of less th an 88%). On 11/04/2011 she was titrated to CPAP of 11cm with normal oxygen saturation. Autotit rating CPAP 11-20cm was prescribed by the patient was unable to get it. She comes in now for f/u. Past Medical History Diagnosis Date Obesity Central alveolar hypoventilation syndrome ANNABEL (obstructive sleep apnea) Periodic limb movement disorder (PLMD) Depression with anxiety Nephrotic syndrome Past Surgical History Procedure Date section, classic Tonsillectomy and adenoidectomy Gastric banding 2003 Take down of gastric banding 2008 Allergies Allergen Reactions Advair Hfa Clarithromycin Hydrocodone Sulfa Antibiotics Current Outpatient Prescriptions on File Prior to Visit Medication Sig Dispense Refill albuterol (VENTOLIN HFA) 90 mcg/puff inhaler inhale two puffs by mouth four times a day HYDROcodone-acetaminophen (NORCO) 5-325 mg per tablet take one - two tablets by mouth e very six hours if needed for pain lorazepam (ATIVAN) 2 MG tablet Take 2 mg by mouth Daily. UNCODED MEDICATION Diagnosis: Obstructive Sleep Apnea ICD-9: 327.23 Length of Need: 99 Months 1 Device 0 BP 142/78 | Pulse 94 | Resp 18 | Wt 198.675 kg (438 lb) HEENT: Normocephalic, atraumatic. Very shallow and narrow posterior oropharynx. Tonsillar g rade 0. Mallampati 4. Neck supple. Lungs: Clear to A and P. Card: S1, S2 wnl, No S3,S4,murmurs Abdoment: Morbidly obese. Normal BS Ext: No C,C,E Neuro: Grossly normal. A: ANNABEL and CAHO: PSG guided PAP titrations is warranted in view of massive recent weight ga in. I've discussed this with the patient. Morbid Obesity: She is seeking further bariatric surgery at [facility] which I strongly sup port. P: PSG guided PAP Titration with f/u thereafter. Today, 45 minutes was spent face to face with the patient; the majority of time was spent c ounseling. CC: Dr. Katherin Ross imon, Jermaine Rodriguez Jr., MD - 04/18/2013 10:46 AM PSTFormatting of this note might be different from the origin al. 04/18/13 1000 [address]andez Depression Inventory-II Depression Score 12 - Minimal depression Insomnia Severity Index Insomnia Severity Index 8 [place] Sleepiness Scale Sitting and reading 2 Watching TV 2 Sitting, inactive in a public place (e.g. a theatre or a meeting) 1 As a passenger in a car for an hour without a break 3 Lying down to rest in the afternoon when circumstances permit 3 Sitting and talking to someone 1 Sitting quietly after a lunch without alcohol 1 In a car, while stopped for a few minutes in traffic 0 Total score 13 SF-36v2 Score PF 21.26 RP 32.36 BP 32.96 GH 28.15 VT 42.72 SF 29.58 RE 24.78 MH 35.93 PCS 28.65 MCS 35.8 documented in t his encounter Plan of Treatment +--------+---------+ + + + | Date | Type | Specialty | Care Team | Description | +--------+---------+ + + + | 06/14/ | Office | Pulmonology | Adolfo Zazueta, | | | 2019 | Visit | | MD Jac JOHNSON | | | | | | [place] | | | | | | [address] | | | | | | | | +--------+---------+ + + + | 01/18/ | Office | Sleep Medicine | Jermaine Fairchild | | | 2019 | Visit | | MD Lars [address] | | | | | | [place] | | | | | | [place] [address] | | | | | | [phone] | | | | | | | | +--------+---------+ + + + documented as of this encounter Visit Diagnoses + + | Diagnosis | + + | ANNABEL (obstructive sleep apnea) - Primary Obstructive sleep apnea (adult) (pediatric) | + + | Central alveolar hypoventilation syndrome Congenital central alveolar hypoventilation | | syndrome | + + | Obesity Obesity, unspecified | + + | Periodic limb movement disorder (PLMD) Periodic limb movement disorder | + + | Depression with anxiety Dysthymic disorder | + + | Nephrotic syndrome Nephrotic syndrome with unspecified pathological lesion in kidney | + + documented in this encounter"
--- OUTSIDE RECORDS SUMMARY | ~2019-06-14 | XMS | Encounter Summary ---
Demographics + + + | Address | [address] | | | [place] [address] | + + + | Home Phone | | + + + | Preferred Language | Unknown | + + + | Marital Status | Single | + + + | Jewish Affiliation | NRP | + + + [...] | | + + +---------+ + | Miely Aguirre | ECON | Unknown | | + + +---------+ + | Lana Nisha | ECON | Unknown | | + + +---------+ + Care Team Providers + +------+ + | Care Press Leader Name | Role | Phone | + +------+ + | Iqra Peralta MD | PCP | | + +------+ + Encounter Details +--------+ + + + + | Date | Type | Department | Care Team | Description | +--------+ + + + + | 07/22/ | Abstract | Cardiology | Juan Antonio Mclaughlin, | | | 2019 | | Preventive at [facility] | MD [address] | | | | | [address] | [place], [place] | | | | | Mailcode: [id number] | [address] | | | | | [facility] | [phone] | | | | | and [place], | | | | | | [address] | | | | | | [facility] [place] | | | | | | [address] | | | | | | [phone] | | | +--------+ + + + [...]
--- OUTSIDE RECORDS SUMMARY | ~2019-06-14 | XMS | Encounter Summary ---
Demographics + + + | Address | [address] | | | [place] [address] | + + + | Home Phone | | + + + | Preferred Language | Unknown | + + + | Marital Status | Single | + + + | Alevism Affiliation | Unknown | + + + [...] Team Providers + +------+ + | Care Beer Still Runner Compounder Name | Role | Phone | + +------+ + | Bassam Ross DO | PCP | | + +------+ + Reason for Visit +--------+ + | Reason | Comments | +--------+ + | Asthma | Yearly | +--------+ + Evaluate & Treat (Routine) [...] | | | Pulmonology | persistent | [id number] | [address] | | | | | asthma, | [address] | [place], | | | | | uncomplicate | [address] | [place] [address] | | | | | d | [address] | Phone: | | | | | Obstructive | [place], [place] | [phone] | | | | | sleep apnea | [phone] | Fax: | | | | | (adult) | Phone: | [phone] | | | | | (pediatric) | [phone] | | | | | | Procedures | | | | | | | F/U APPT | | | | | | | [facility] | | | | | | | 06/23/17 | | | +--------+--------+ + + + + Encounter Details +--------+---------+ + + + | Date | Type | Department | Care Team | Description | +--------+---------+ + + + | 06/05/ | Office | [facility] [place] | Adolfo Zazueta, | Atrial fibrillation | | 2018 | Visit | PULMONARY [address] | MD [address] | with rapid | | | | [place], | [place], [place] | ventricular response | | | | [place] [address] | [id number] | ([facility]) (Primary Dx); | | | | [phone] | | Shortness of | | | | | | breath; Tachycardia; | | | | | | Obstructive sleep | | | | | | apnea; Mild | | | | | [...] + + + | Blood Pressure | 130/76 | 06/05/2017 2:04 PM | | | | | PST | | + + + + + | Pulse | 130 | 06/05/2017 2:04 PM | | | | | PST | | + + + + + | Temperature | - | - | | + + + + + | Respiratory Rate | - | - | | + + + + + | Oxygen Saturation | 95% | 06/05/2017 2:04 PM | 3 L/M | | | | PST | | + + + + + | Inhaled Oxygen | - | - | | | Concentration | | | | + + + + + | Weight | 189.2 kg (417 lb 1.8 | 06/05/2017 2:04 PM | | | | oz) | PST | | + + + + + | Height | 157.5 cm (5' 2") | 06/05/2017 2:04 PM | | | | | PST | | + + + + + | Body Mass Index | 76.29 | 06/05/2017 2:04 PM | | | | | PST | | + + + + + documented in this encounter Patient Instructions Patient Instructions Adolfo Zazueta MD - 06/05/2017 2:30 PM PST Understanding Atrial Fibrillation An arrhythmia is any problem with the speed or pattern of the heartbeat. Atrial fibrillatio n (AFib) is a common type of arrhythmia. It causes fast, chaotic electrical signals in the a tria. This leads to poor functioning of the heart. It also affects how much blood your heart can pump out to the body. Afib may occur once in a while and go away on its own. Or it may continue for longer period s and need treatment. AFib can lead to serious problems, such as stroke. Your healthcare provider will need to mo nitor and manage it. What happens during atrial fibrillation? The heart has an electrical system that sends signals to control the heartbeat. As signals move through the heart, they tell the heart s upper chambers (atria) and lower chambers (v entricles) when to squeeze (contract) and relax. This lets blood move through the heart and out to the body and lungs. With AFib, the atria receive abnormal signals. This causes them to contract in a fast and i rregular way, and out of sync with the ventricles. When this happens, the atria also have a harder time moving blood into the ventricles. Blood may then pool in the atria, which increa ses the risk for blood clots and stroke. The ventricles also may contract too quickly and ir regularly. As a result, they may not pump blood to the body and lungs as well as they should . This can weaken the heart muscle over time and cause heart failure. What causes atrial fibrillation? AFib is more common in older adults. It has many possible causes including: Coronary artery disease Heart valve disease Heart attack Heart surgery High blood pressure Thyroid disease Diabetes Lung disease Sleep apnea Heavy alcohol use In some cases of AFib, doctors do not know the cause. What are the symptoms of atrial fibrillation? AFib may or may not cause symptoms. If symptoms do occur, they may include: A fast, pounding, irregular heartbeat Shortness of breath Tiredness Dizziness or fainting Chest pain How is atrial fibrillation treated? Treatments for AFib can include any of the options below. Medicines. You may be prescribed: Heart rate medicines to help slow down the heartbeat Heart rhythm medicines to help the heart beat more regularly Anti-clotting medicines to help reduce the risk for blood clots and stroke Electrical cardioversion. Your healthcare provider uses special pads or paddles to send one or more brief electrical shocks to the heart. This can help reset the heartbeat to tony l. Ablation. Long, thin tubes called catheters are threaded through a blood vessel to the h eart. There, the catheters send out hot or cold energy to the areas causing the abnormal sig nals. This energy destroys the problem tissue or cells. This improves the chances that your heart will stay in normal rhythm without using medicines. If your heart rate and rhythm can t be controlled, you may need ablation and a pacemaker. These will help control the heart rate and regularity of the heartbeat. Surgery. During surgery, your healthcare provider may use different methods to create sc ar tissue in the areas of the heart causing the abnormal signals. The scar tissue disrupts t he abnormal signals and may stop AFib from occurring. What are the complications of atrial fibrillation? These can include: Blood clots Stroke Heart failure. This problem occurs when the heart muscle weakens so much that it can no longer pump blood well. When should I call my healthcare provider? Call your healthcare provider right away if you have any of these: Symptoms that don t get better with treatment, or get worse New symptoms Date Last Reviewed: 09/30/201519999597-9533 [employer]. [address] [place] [address], [place] [address]. All righ ts reserved. This information is not intended as a substitute for professional medical care. Always follow your healthcare professional's instructions. documented in this encounter Progress Notes Adolfo Zazueta MD - 06/05/2017 2:30 PM PSTFormatting of this note might be different f rom the original. Pulmonary Follow Up 06/05/2017 HPI Aspen Darden is a 46 y.o. female patient of Bassam Ross, here today for follow up of a sthma, obstructive sleep apnea and restrictive lung disease secondary to morbid obesity. The patient presents as part of her routine annual follow-up. Apparently since time is last clinic appointment she was admitted to [facility] i n August presumably related to a flare of her asthma. She was discharged on supplemental oxy gen at 2 L/m. Patient improved and ultimately oxygen was discontinued. Aspen developed wor sening symptoms in April and was again hospitalized. This time diltiazem 240 mg a day wa s initiated. The patient was also treated with Coumadin. She does not know the actual diag nosis. The patient's last visit was on 06/26/16. Since the last visit she feels like their asthma has been increasing. They have had any acute illnesses resulting in worsening asthma symptoms. They have not re quired a burst of prednisone since our last appointment. Specifically 0 tapers of predniso ne have occurred over the interval. Lastly Aspen notes 0 ED visits and 2 hospitalizations fo r asthma have occurred since the last appointment. Last week Ms. Darden began to notice worsening lower extremity edema, a fast heart rate and i ncrease shortness of breath. Their controller medication regimen currently consists of Qvar 2 puffs BID. They do not fe el like this medication regimen is effective at controlling their symptoms. Currently Aspen is using their rescue albuterol, Ventolin, 3 times a day over the last 2 weeks. They have albuterol/ipratropium for use in a nebulizer and use it 3-4 times a day for the last month. Triggers of their asthma include upper respiratory tract infections. She does have nocturn al symptoms of wheezing, chest tightness or cough. She does not measure their peak flow. Currently Aspen reports being able to walk several 100 feet at their own pace on [facility] before becoming symptomatic. They are not exercising regularly. Current exercise consis ts of walking some. She does cough chronically, and does produce mucous. The mucous is clear in color. Aspen does not report symptoms of heartburn or acid reflux. They have not had recent sympto ms of nasal congestion, runny nose or post nasal drip. New triggers since the last appointment include none. Aspen Darden is not smoking cigarettes. The patient have received this year's influenza vaccination. They are up to date with thei r Pneumovax. Some drainage of fluid involving the patient's lower extremities are noted. There is no history of chest pain. Supplemental oxygen at 3 L/m with exertion and 2 L/m through CPAP. Past Medical History Past Medical History: Diagnosis [...] deficiency Allergies: Allergies Allergen Reactions Amoxicillin Hives Sulfa Antibiotics Rash Clarithromycin Fluticasone-Salmeterol Gabapentin Hydrocodone Oxycodone Phendimetrazine Tartrate Medications: Current Outpatient Prescriptions: albuterol-ipratropium (DUONEB) 2.5-0.5 mg/3 mL SOLN, Take 3 mLs by nebulization every 4 hours as needed., Disp: 360 mL, Rfl: 1 atorvaSTATin (LIPITOR) 10 mg tablet, Take 10 mg by mouth Daily., Disp: , Rfl: 1 CARTIA XT 240 MG 24 hr capsule, Take 240 mg by mouth Daily., Disp: , Rfl: 1 desvenlafaxine (PRISTIQ) 50 mg ER tablet, Take one tablet daily, Disp: , Rfl: 0 ergocalciferol (VITAMIN D-2) 50,000 units capsule, Take 50,000 Units by mouth Three ti mes a week., Disp: , Rfl: furosemide (LASIX) 40 mg tablet, Take 40 mg by mouth as needed., Disp: , Rfl: HYDROcodone-acetaminophen (NORCO) [...] daily, Disp: , Rf l: 1 metFORMIN (GLUCOPHAGE-XR) 500 mg 24 hr tablet, Take 500 mg by mouth 2 times daily., Di sp: , Rfl: 1 omeprazole (PRILOSEC) 20 mg capsule, Take one capsule daily, Disp: , Rfl: 1 pioglitazone (ACTOS) 15 mg tablet, Take 15 mg by mouth Daily., Disp: , Rfl: 1 pramipexole (MIRAPEX) 1.5 MG tablet, Take 1.5 mg by mouth 2 times daily., Disp: , Rfl: prazosin (MINIPRESS) 1 mg capsule, Take 2 mg by mouth nightly., Disp: , Rfl: 0 QVAR 80 MCG/ACT inhaler, inhale 2 puffs by mouth twice a day, Disp: 1 Inhaler, Rfl: 3 RA ASPIRIN ADULT LOW STRENGTH 81 MG chewable tablet, chew 2 tablets by mouth once frandy y, Disp: , Rfl: 0 Uncoded Medication, Lifelong-99;Obstuctie [...] as needed for Wheezing., Disp: , Rfl: VYVANSE 60 MG capsule, take 1 capsule by mouth once daily, Disp: , Rfl: 0 Immunizations: Immunization History Administered Date(s) Administered INFLUENZA PF 18 Y OR >,TRIVALENT RECOMBINANT 02/21/2013, 03/01/2015 INFLUENZA PF QUAD(PED/ADOL/ADULT),PSKT or VIAL 03/16/2017 INFLUENZA PF TRIVALENT(PED/ADOL/ADULT), PSKT 03/10/2016 PNEUMOCOCCAL POLYSACCHARIDE 23-VALENT (PPSV23) 11/18/2013 Objective BP 130/76 | Pulse 130 | Ht 1.575 m (5' 2") | Wt (!) 189.2 kg (417 lb 1.8 oz) | SpO2 95% Comment: 3 L/M | ? No | BMI 76.29 kg/m Appearance: Alert, cooperative, no distress, appears [...] Extremities: Extremities normal, atraumatic, no cyanosis, clubbing. 3+ edema to the upper c assisted bilaterally. Skin: Warm and dry. Lymph nodes: Cervical and supraclavicular nodes normal. Neurologic: Gait normal. Data: EKG dated 06/05/17 shows atrial fibrillation with a ventricular rate of approximately 120. Assessment 1. Atrial fibrillation with rapid ventricular response the patient's description of init iating diltiazem plus anticoagulation is highly suggestive of recent development of atrial f ibrillation. The patient describes anticoagulation for a finite period of time and it sound s as if she had an echocardiogram performed. Results are echocardiogram are not available a t the time of this documentation. It appears that despite diltiazem at 240 mg a day that the patient is still experiencing si gnificant tachycardia resulting in worsening lower extremity edema and dyspnea. I have suggested to Mrs. Darden that we increase her dose of diltiazem. We discussed anticoa gulation. Ms. Darden is not interested in anticoagulation at this time. Rather she hopes to discuss the point further with Dr. Ross. If the patient's symptoms were to worsen over the weekend she will present to the emergency department in [place] for further evaluation. At this point in time given that her blood pressure is within normal limits, the atrial fibrillation is likely not new and Ms. Darden is not significantly hypoxic it does not appear that immediate hospitalization is needed. 2. Asthma mild intermittent. Previously treated with inhaled Qvar. The patient is up-to-date with respect to her Pneumovax and seasonal influenza vaccination. I do not appreciate findings consistent with worsening asthma. 3. Restrictive lung disease secondary to morbid obesity. Aspen's is weight is up and michael jaeger has worsening lower extremity edema. I suspect that these changes are primarily related t o her underlying atrial fibrillation. 4. Obstructive sleep apnea patient reports good compliance with CPAP. She is currently wearing supplemental oxygen at 2 L/m through her CPAP. Plan 1. Increase diltiazem to 300 mg once daily. 2. The patient will contact Dr. Ross's office early next week regarding a follow-up appo intment. A copy of this documentation in the patient's EKG will be forwarded to Dr. Ross. 3. Will not initiate anticoagulation per patient wishes. 4. No change in medicine months asthma medication at this time. 5. Pulmonary clinic follow-up appointment in 4 weeks' time to reassess the status of time his symptoms. CC: Bassam Ross, DO documented in this encounter Plan of Treatment +--------+---------+ + + + | Date | Type | Specialty | Care Team | Description | +--------+---------+ + + + | 06/14/ | Office | Pulmonology | Adolfo Zazueta, | | | 2019 | Visit | | MD Jac JOHNSON | | | | | | [place] | | | | | | [phone] | | | | | | | | +--------+---------+ + + + | 01/18/ | Office | Sleep Medicine | Jermaine Fairchild | | 2019 | Visit | | MD Jac Sousa | | | | | | [place] | | | | | | [place] [address] | | | | | | [phone] | | | | | | | | +--------+---------+ + + + documented as of this encounter Procedures + +--------+ + + + | Procedure Name | Priori | Date/Time | Associated Diagnosis | Comments | | | ty | | | | + +--------+ + + + | ECG 12 LEAD | Routin | 06/05/2017 | Shortness of | Results for this | | | e | 3:03 PM | breath Tachycardia | procedure are in the | | | | PST | | results section. | + +--------+ + + + documented in this encounter Results ECG 12 lead (06/05/2017 3:03 PM PST) + + + + + + | Component | Value | Ref Range | Performed | Pathologist | | | | | At | Signature | + + + + + + | VENTRICULAR | 113 | BPM | [facility] | | | RATE EKG | | | | | + + + + + + | QRS | 70 | ms | [facility] | | | DURATION | | | | | + + + + + + | Q-T | 324 | ms | [facility] | | | INTERVAL | | | | | + + + + + + | Q-T | 444 | ms | [facility] | | | INTERVAL | | | | | | (CORRECTED) | | | | | + + + + + + | QRS AXIS | -18 | degrees | [facility] | | + + + + + + | T AXIS | 20 | degrees | [facility] | | + + + + + + | INTERPRETAT | Atrial fibrillation with | | [facility] | | | ION TEXT | rapid ventricular | | | | | | responseLow voltage | | | | | | QRSAbnormal ECGNo | | | | | | previous ECGs | | | | | | availableConfirmed by | | | | | | TIFFANY ENRIQUEZ MD ([id number]) | | | | | | on 06/10/2017 7:11:28 AM | | | | + + + + + + + + | Specimen | + + | | + + + + + | Narrative | Performed At | + + + | | | + + + + +---------+ + + | Performing | Address | City/State/Zipcode | Phone Number | | Organization | | | | + +---------+ + + | [facility] | | | | + +---------+ + + documented in this encounter Visit Diagnoses + + | Diagnosis | + + | Atrial fibrillation with rapid ventricular response (HCC) - Primary Atrial | | fibrillation | + + | Shortness of breath | + + | Tachycardia Tachycardia, unspecified | + + | Obstructive sleep apnea Obstructive sleep apnea (adult) (pediatric) | + + | Mild persistent asthma without complication Unspecified asthma | + + documented in this encounter
--- OUTSIDE RECORDS SUMMARY | ~2019-06-14 | XMS | Encounter Summary ---
Demographics + + + | Address | [address] | | | [place] [address] | + + + | Home Phone [...] | + + +---------+ + | [place] | ECON | Unknown | | + + +---------+ + Care Team Providers + +------+ + | Care Mobile Application Architect Name | Role | Phone | [...] Description | +--------+---------+ + + + | 09/16/ | Surgery | 6A Intra Op 3[address] | Shyam Mortensen, | RIGHT DISTAL FEMUR | | 2019 | | [address] | MD [address] | OPEN REDUCTION | | | | Catrachito Perez | [address] | INTERNAL FIXATION | | | | Hospital Admitting | [place], [place] | | | | | Desk Located on the | [address] | | | | | 9th floor | [phone] | | | | | [place], [place] | | | | | | [address] | | | +--------+---------+ + + + [...] Hyman MD - 09/21/2018 7:58 AM PDT [facility] Discharge Summary Discharging Provider: ROBBY [...] 10 mg daily // and 7.5 mg Sun/Tues/Thurs/S at at home but was placed on [...] She was medically stable for discharge to [facility] on 09/21/18. Pertinent Findings: Labs: AST 20, [...] daily for 5 days. naloxone 4 mg/actuation [place] Instill 1 spray in nose as needed [...] Selected Specialties Address Phone Number Fax Number [facility] Selected [facility] [address], [place] [address] Home Care Medical No service has been selected for the patient. Social Care Services No service has been selected for the patient. Follow Up: Future Appointments Provider Department Dept Phone Center 10/01/2018 10:15 AM Adrienne Johnson [facility] Orthopaedics & Rehabilitation [phone] Orthopedi cs Contact information for other follow-up providers IQRA STARKEY MD. Specialty: Internal Medicine Contact information [facility] [address] [place] [address] JULIET Miller On 10/01/2018. Specialties: Nurse Practitioner Family, Orthopedic Surgery Why: 9:55AM. Contact information [address] [place] [address] Contact information for after-discharge care Discharge Destination [facility] . Specialty: [facility] Contact information [address] [place] [id number] Discharge Physical Exam: Last 24 hour min/max [...] no c/c/e ROBBY HYMAN MD Pager - [phone] commercial drafter Division of Hospital Medicine I spent more than 60 minutes [id number] with the patient of which greater than [...] 1 tablet by | | 0 | //20 | | | mg oral tablet | [...] mL under | 30 | 1 | 04//20 | | | mg/0.6 mL | the [...] if | | | | | | (HCC) | no or minimal | | | [...] packet and | 30 | 0 | 09/21/19 | | | glycol 17 gram oral [...] | | | | | | encounter ([facility]) | | | | | | + [...] | | | | | | encounter ([facility]) | to 7 days. | | | [...] inhaler 1 puff, 1 puff, inhalation, Q4H NH N beclomethasone (QVAR) 80 mcg/actuation inhaler 2 [...] Dispo: SNF likely Thursday. Isi Peres MD Clinic Office Assistantfixing machine operator Clinical Hospitalist Division of Hospital Medicine [facility] Pager [phone] I spent 30 minutes in the care of this patient. Greater than 50% of the time was spent cou nseling and coordination of care with orthopedics. ijose luis, MD Tadeo - 09/21/19 8:16 AM PDT Orthopaedic Surgery Progress Note Patient: /Age: MRN: CSN: Date: Admission Date: Hospital Day: Orthopaedic Attending: Aspen Darden 1970 48 y.o. [id number] 09/20/2018 09/14/2018 6 Shyam Mortensen MD Diagnosis(es): [...] [facility] [address] Mortensen, [...] Tadeo Aguila MD Orthopaedic Surgery, PGY-1 Pager: [phone] signed by Tadeo Aguila MD at 09/20/2018 1:07 PM PDTWHannah crook MD - 09/19/2018 12:01 PM PDT Orthopaedic Surgery Progress Note Patient: /Age: MRN: CSN: Date: Admission Date: Hospital Day: Orthopaedic Attending: Aspen Darden 1970 48 y.o. [id number] 09/19/2018 09/14/2018 5 Shyam Mortensen MD Diagnosis(es): [...] to [facility] a [facility] [address]. Mortensen, [...] flexion & extension, finger abduction & adduction, donor floor technician. Sensation intact to li ght touch over axillary, median, ulnar, and radial nerve distributions, palpable radial puls e, fingers pink and warm LUE - . Motor intact to shoulder abduction, elbow flexion & extension, wrist flexion & exte nsion, thumb flexion & extension, finger abduction & adduction, donor floor technician. Sensation intact to li ght touch over [...] pink and war m. Clif Bain MD [facility] Department of Orthopaedics & Rehabilitation [address] [place] [address] Mail Code: OP31 [facility] [address] Isi Trinidad MD - 019 9:00 AM PDT HOSPITALIST INPATIENT [...] inhaler 1 puff, 1 puff, inhalation, Q4H NH N beclomethasone (QVAR) 80 mcg/actuation inhaler 2 [...] are new for her. LFTs continue to lvey ntrend this morning, and etiology is still [...] Dispo: SNF likely Thursday. Isi Peres MD Clinic Office Assistantfixing machine operator Clinical Hospitalist Division of Hospital Medicine [facility] Pager [phone] I spent 30 minutes in the care of this patient. Greater than 50% of the time was spent cou nseling and coordination of care with orthopedics. Clif Rizvi MD - 019 1:07 PM PDT Orthopaedic Surgery Progress Note Patient: /Age: MRN: CSN: Date: Admission Date: Hospital Day: Orthopaedic Attending: Aspen Darden 1970 48 y.o. [id number] 09/18/2018 09/14/2018 4 Shyam Mortensen MD Diagnosis(es): [...] to make a follow up appointment in approxi mately [address] Mortensen, [...] flexion & extension, finger abduction & adduction, donor floor technician. Sensation intact to li ght touch over axillary, median, ulnar, and radial nerve distributions, palpable radial puls e, fingers pink and warm LUE - . Motor intact to shoulder abduction, elbow flexion & extension, wrist flexion & exte nsion, thumb flexion & extension, finger abduction & adduction, donor floor technician. Sensation intact to li ght touch over [...] pink and war m. Clif Bain MD [facility] Department of Orthopaedics & Rehabilitation [address] [place] [address] Mail Code: OP31 [place] [address] Isi Trinidad MD - 019 8:48 AM PDT HOSPITALIST INPATIENT [...] inhaler 1 puff, 1 puff, inhalation, Q4H NH N beclomethasone (QVAR) 80 mcg/actuation inhaler 2 [...] replete lytes Code status: FULL code Dispo: [facility] Isi Peres MD Clinic Office Assistantfixing machine operator Clinical Hospitalist Division of [facility] Medicine [facility] Pager [phone] I spent 30 minutes in the care of this patient. Greater than 50% of the time was spent cou nseling and coordination of care with orthopedics. Clif Rizvi MD - 019 11:35 AM PDT Orthopaedic Surgery Progress Note Patient: /Age: MRN: CSN: Date: Admission Date: Hospital Day: Orthopaedic Attending: Aspen Darden 1970 48 y.o. [id number] 09/17/2018 09/14/2018 3 Shyam Mortensen MD Diagnosis(es): [...] to [facility] a [facility] [address] Mortensen, [...] flexion & extension, finger abduction & adduction, donor floor technician. Sensation intact to li ght touch over axillary, median, ulnar, and radial nerve distributions, palpable radial puls e, fingers pink and warm LUE - . Motor intact to shoulder abduction, elbow flexion & extension, wrist flexion & exte nsion, thumb flexion & extension, finger abduction & adduction, donor floor technician. Sensation intact to li ght touch over [...] pink and war m. Clif Bain MD [facility] Department of Orthopaedics & Rehabilitation [address] [place] [address] Mail Code: 31 [facility] [address] Isi Trinidad MD - 019 8:31 AM [...] % Intake/Output Summary (Last 24 hours) at 09/17/18830 Last data filed at 09/17/18827 Gross per 24 hour Intake 2410 ml [...] inhaler 1 puff, 1 puff, inhalation, Q4H NH N beclomethasone (QVAR) 80 mcg/actuation inhaler 2 [...] replete lytes Code status: FULL code Dispo: [facility] Isi Peres MD Clinic Office Assistantfixing machine operator Clinical Hospitalist Division of Hospital Medicine [facility] Pager [phone] I spent 30 minutes in the care [...] inhaler 1 puff, 1 puff, inhalation, Q4H NH N beclomethasone (QVAR) 80 mcg/actuation inhaler 2 [...] replete lytes Code status: FULL code Dispo: [facility] Isi Peres MD Clinic Office Assistantfixing machine operator Clinical Hospitalist Division of Hospital Medicine [facility] Pager [phone] I spent 30 minutes in the care of this patient. Greater than 50% of the time was spent cou nseling and coordination of care with orthopedics. Isi Trinidad MD - 09/15/2018 1:46 PM PDT HOSPITALIST [...] inhaler 1 puff, 1 puff, inhalation, Q4H NH N beclomethasone (QVAR) 80 mcg/actuation inhaler 2 [...] 0 Rate of cardiac , non fatal MO, non fatal cardiac arrest 0 risk factors - 0.4% (very low) 1 risk factors - 0.9% (low) 2 risk factors - 6.6%, (moderate) 3 or >risk factors - 11% (high) ACC/AHA Perioperative Guidelines: 1. Need for emergency noncardiac surgery? b. No -> Proceed to next step 2. Active Cardiac Conditions? These conditions mandate further investigation and manageme nt. A. Acute MO within 7 days: no B. Unstable angina/Recent MO (7- 30 days): no C. Decompensated CHF: [...] replete lytes Code status: FULL code Dispo: [facility] Isi Peres MD Clinic Office Assistantfixing machine operator Clinical Hospitalist Division of Hospital Medicine [facility] Pager [phone] I spent 60 minutes in the care of this patient. Greater than 50% of the time was spent cou nseling and coordination of care with orthopedics, completing preoperative risk stratificati on. Anita Witt AGACNP - 09/15/2018 7:04 AM PDT Orthopaedic Surgery Progress Note Date: 09/15/2018 Hospital Day: 1 Orthopaedic Attending: Ang Betancourt MD Diagnosis(es): 1. Right distal femur fracture Orthopaedic Procedure(s) & Date(s): NTD Assessment & Plan: Aspen Darden is a 47 y.o.F with the orthopaedic diagnoses and procedur es listed above. 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 | [place], [place] | | | [facility] OF CARE | [address] | [address] | | | TESTS | | | [...] | + + + + + | [facility] | [address] | [place] [address] | | | SERVICES, CORE | NANCY [...] | + + + + + | [facility] | [address] | [place] [address] | | | SERVICES, CORE | NANCY [...] | | | LABORATORY | | | BENINESE | | | SERVICES, | | | [...] | + + + + + | [facility] | [address] | [place] [address] | | | MIR CHAPIN | NANCY [...] (H) | 60 - 99 mg/dL | [facility] - | | | GLUCOSE, | [...] | [facility] | [address] | [place], [place] | | | [facility] CARE | [address] | [address] | | | TESTS | | | [...] (H) | 60 - 99 mg/dL | [facility] - | | | GLUCOSE, | [...] + | [facility] | [address] | [place], [place] | | | [facility]INT OF CARE | [address] | [address] | | | TESTS | | | [...] | + + + + + | [facility] | [address] | [place] [address] | | | MIR CHAPIN | NANCY [...] (H) | 60 - 99 mg/dL | [facility] - | | | GLUCOSE, | [...] | [address] | [place], [place] | | | [facility] POINT OF [facility] | [address] | [address] | | | TESTS | | | [...] + | [facility] | [address] | [place], [place] | | | [facility] | [facility] | [address] | | | TESTS | | | [...] | + + + + + | [facility] | [address] | [place] [address] | | | SERVICES, CORE | NANCY [...] | + + + + + | [facility] | [address] | [place] [address] | | | SERVICES, CORE | [address]ARK [...] | | | LABORATORY | | | BENINESE | | | SERVICES, | | | [...] the MDRD equation recommended by the | [facility] | | National Kidney Disease Education Program. [...] | + + + + + | [facility] | [address] | [place] [address] | | | SERVICES, CORE | NANCY [...] | [address] | [place], [place] | | | [facility] CARE | [address] | [address] | | | TESTS | | | [...] + | [facility] | [address] | [place], [place] | | | [facility] OF CARE | [address] | [address] | | | TESTS | | | [...] (H) | 60 - 99 mg/dL | [facility] - | | | GLUCOSE, | [...] + | [facility] | [address] | [place], [place] | | | [facility] [place]ENN | [address] | [address] | | | TESTS | | | [...] | | | POC | | | HAR[place]DO POINT | | | | | | [...] | [address] | [place], [place] | | | [facility] POINT OF CARE | [address] | [address] | | | TESTS | | | [...] | + + + + + | [facility] | [address] | [place] [address] | | | SERVICES, CORE | [address] | | | + [...] | + + + + + | [facility] | [address] | [place] [address] | | | SERVICES, CORE | NANCY [...] | | | LABORATORY | | | BENINESE | | | SERVICES, | | | [...] | + + + + + | [facility] | [address] | [place] [address] | | | MIR CHAPIN | [address]ARK [...] | [address] | [place], [place] | | | [facility] CARE | [facility] | [address] | | | TESTS | | | [...] (H) | 60 - 99 mg/dL | [facility] - | | | GLUCOSE, | [...] + | [facility] | [address] | [place], [place] | | | [facility]CO OF CARE | [facility] | [address] | | | TESTS | | | [...] | [address] | [place], [place] | | | [facility] OF [place]ENN | [address] | [address] | | | TESTS | | | [...] + | [facility] | [address] | [place], [place] | | | [facility] POINT OF CARE | [facility] | [address] | | | TESTS | | | [...] LABORATORY | [address] | [place] [address] | | | SERVICES, CORE | NANCY [...] mech. valves (2.5 - 3.5) INR | [facility] | + + + + + + + + | Performing | Address | City/State/Zipcode | Phone Number | | Organization | | | | + + + + + | [facility] | [address] | [place] [address] | | | MIR CHAPIN | NANCY [...] | | | LABORATORY | | | BENINESE | | | SERVICES, | | | [...] the MDRD equation recommended by the | [facility] | | National Kidney Disease Education [...] | + + + + + | [facility] | [address] | [place] [address] | | | MIR CHAPIN | NANCY [...] + | [facility] | [address] | [place], [place] | | | [facility] POINT OF CARE | [address] | [address] | | | TESTS | | | [...] | | | POC | | | HAR[place]DO POINT | | | | | | [...] + + + | [facility] | [address] | [place], [place] | | | [facility] POINT OF CARE | [address] | [address] | | | TESTS | | | [...] | [address] | [place], [place] | | | [facility] POINT OF CARE | [address] | [address] | | | TESTS | | | [...] + | [facility] | [address] | [place], [place] | | | [facility] POINT OF CARE | [address] | [address] | | | TESTS | | | [...] LABORATORY | [address] | [place] [address] | | | SERVICES, CORE | [address] | | | + + + + + INR (09/17/2018 6:37 AM PDT) + +-------+ + + + | Component | Value | Ref Range | Performed | Pathologist | | | | | At | Signature | + +-------+ + + + | INR | 1.19 | 0.90 - 1.20 INR | [facility] | | | | | | LABORATORY [...] mech. valves (2.5 - 3.5) INR | MIR CHAPIN | + + + + + + + + | Performing | Address | City/State/Zipcode | Phone Number | | Organization | | | | + + + + + | [facility] | [address] | [place] [address] | | | SERVICES, CORE | PARK [...] | | | LABORATORY | | | BENINESE | | | SERVICES, | | | [...] | + + + + + | [facility] | [address] | [place] [address] | | | MIR CHAPIN | NANCY [...] (H) | 60 - 99 mg/dL | [facility] | | | GLUCOSE, | | [...] + | [facility] | [address] | [place], [place] | | | MAR[facility]A ZARCO OF CARE | [address] | [address] | | | TESTS | | | [...] + | [facility] | [address] | [place], [place] | | | MARTHA ZARCO OF JENN | [facility] | [address] | | | TESTS | | | [...] | [address] | [place], [place] | | | [facility] [facility] OF [facility] | [address] | [address] | | | TESTS | | | | + + + + + PROCEDURE NOTE (2018 1:15 PM PDT) + + + | Narrative | Performed At | + + + | Shyam Mortensen MD 2018 1:17 PM Date: 2018 | | | Attending Surgeon: Shyam Mortensen M.D. Fire Protection Fabricator(s): Luis Enrique | | | Nic Gross, Clif Bain M.D. Preoperative Diagnosis(es): | | | Right [...] 11.5 mm Tsai and | | | Ne[address]ine [address] Mobile retrograde femoral nail was then impacted into place down the | | | length of the femur crossing over the fracture site. Three | | | interlock screws were placed using the targeting guide. Proximally | | | then, two screws were placed through the nail using perfect lytton | | | technique. Final fluoroscopic films [...] | [address] | [place], [place] | | | MAR[facility]CO OF CARE | [address] | [address] | | | TESTS | | | [...] + | [facility] | [address] | [place], [place] | | | [place] | [address] | [address] | | | TESTS | | | [...] | + + + + + | [facility] | [address] | [place] [address] | | | SERVICES, CORE | [address]ARK [...] mech. valves (2.5 - 3.5) INR | MIR CHAPIN | + + + + + + + + | Performing | Address | City/State/Zipcode | Phone Number | | Organization | | | | + + + + + | [facility] | [address] | [place] [address] | | | MIR CHAPIN | NANCY [...] | | | LABORATORY | | | BENINESE | | | SERVICES, | | | [...] | + + + + + | [facility] | [address] | [place] [address] | | | MIR CHAPIN | NANCY [...] + + | [facility] | [address] | [place], [place] | | | MAR[facility]A ZARCO OF CARE | [address] | [address] | | | TESTS | | | [...] | [address] | [place], [place] | | | [facility] [facility] | [facility] | [address] | | | TESTS | | | [...] | + + + + + | [employer] [facility] | [address] | [place] [address] | | | SERVICES, CORE | NANCY [...] LABORATORY | [address] | [place] [address] | | | SERVICES, CORE | PARK [...] | + + + + + | [facility] | [address] | [place] [address] | | | SERVICES, CORE | NANCY [...] + | [facility] - | [address] | [place] [address] | | | [facility] | | | | + + + [...] + | [facility] | [address] | [place] [address] | | | [place] | | | | + + + [...] now | | | presented. Final signature: Marvin Ashley MD 2018 | | | 9:56 AM Preliminary: Marvin Ashley MD Dictation | | | initiated: Marvin Ashley MD 2018 8:48 AM | | + + + + + | Procedure Note | + + | Service Account, Radiant Res In Interface - 2018 9:57 AM [...] is identified. Severe tricompartmental osteoarthrosis at the [facility]. | | | |I have personally reviewed [...] | | + +---------+ + + | [facility] | | | | | VOICE [...] + + | [facility] | [address] | [place], [place] | | | [facility]CO OF [facility] | [address] | [address] | | | TESTS | | | [...] Account, Radiant Res In Interface - 09/15/2018 11:36 AM [...] | | | LABORATORY | | | BENINESE | | | SERVICES, | | | [...] LABORATORY | [address] | [place] [address] | | | SERVICES, CORE | PARK [...] | + + + + + | [facility] | [address] | [place] [address] | | | SERVICES, [facility] | [address] | | | + + + + + CAPILLARY BLOOD GLUCOSE (NO CHG), POC (09/15/2018 6:26 AM PDT) + +---------+ + + + | Component | Value | Ref Range | Performed | Pathologist | | | | | At | Signature | + +---------+ + + + | BLOOD | 130 (H) | 60 - 99 mg/dL | [facility] - | | | GLUCOSE, | [...] + | [facility] | [address] | [place], [place] | | | [facility]CO OF CARE | [facility] | [address] | | | TESTS | | | [...] + + + + | PRODUCT | [id number] | | [facility] | | | UNIT [...] + + + + | EXPIRATION | [id number] | | [facility] | | | DATE [...] + + + + | BLOOD | [id number] | | [facility] | | | PRODUCT [...] | + + + + + | [facility] | [address] | [place] [address] | | | SERVICES, | [address] [...] + + + + | PRODUCT | [id number] | | [facility] | | | UNIT [...] + + + + | EXPIRATION | [id number] | | [facility] | | | DATE [...] + + + + | BLOOD | [id number] | | [facility] | | | PRODUCT [...] | + + + + + | [facility] | [address] | [place] [address] | | | SERVICES, | [address] | | | | TRANSFUSION MEDICINE [...] | + + + + + | [facility] | [address] | [place] [address] | | | SERVICES, CORE | NANCY [...] LABORATORY | [address] | [place] [address] | | | SERVICES, | [address] [...] | + + + + + | [facility] | [address] | [place] [address] | | | SERVICES, | [address] [...] LABORATORY | [address] | [place] [address] | | | SERVICES, CORE | PARK [...] | + + + + + | [facility] | [address] | [place] [address] | | | SERVICES, CORE | NANCY [...] | | | LABORATORY | | | BENINESE | | | SERVICES, | | | [...] the MDRD equation recommended by the | [facility] | | National Kidney Disease Education [...] | + + + + + | [facility] | [address] | [place] [address] | | | SERVICES, CORE | PARK [...] | + + + + + | [facility] | [address] | [place] [address] | | | SERVICES, [facility] | [address] | | | + + + + + CAPILLARY BLOOD GLUCOSE (NO CHG), POC (09/14/2018 11:54 PM PDT) + +---------+ + + + | Component | Value | Ref Range | Performed | Pathologist | | | | | At | Signature | + +---------+ + + + | BLOOD | 141 (H) | 60 - 99 mg/dL | [facility] - | | | GLUCOSE, | [...] + | [facility] | [address] | [place], [place] | | | [facility] | [facility] | [address] | | | TESTS | | | [...] +--------+ +--------+------+------+ +-------+ +--------+---+---+ | Given | 09/22/19 | [...] | | | Thu09/15/18 at 1417, Until Tue | | | 09/21/18 at 1850, CBG less than 70 | | | mg/dL per Adult Hypoglycemia | | | Protocol | | + +---+ | | | + +---+ + +-------+ +---------+---+ + | insulin lispro [...] | | | | | | on Tu09/21/18 at 0815, Last dose | | | [...] | | | | | 1437, Until Tu09/21/18 at 1850, | | | | | [...] | | +---+---+ + +-------+ +---------+---+---+ | naloxone (NARCAN) injection | Given | 09/16/19 | 0.04 mg | | | | intravenous, NEEDED, Starting | | 19 12:30 | | | | | 09/15/18 at 0103, Until Tue | | AM PDT | | | [...] +-------+ +-------+---+---+ +-------+ +-------+---+---+ | Given | 09/20/20 | 20 mg | | | | [...]
--- OUTSIDE RECORDS SUMMARY | ~2019-06-14 | XMS | Encounter Summary ---
Demographics + + + | Address | [address] | | | [place] [address] | + + + | Home Phone [...] + | Author | [facility] | | | and [place] | + + + | Organization | [facility] | | | [...] Team Providers + +------+ + | Care Primary Counselor Name | Role | Phone | + +------+ + PCP | Unavailable | + +------+ + Encounter Details +--------+ + + + + | Date | Type | Department | Care Team | Description | +--------+ + + + + | 03/09/ | Hospital | [facility] | Unknown, | | | 1997 | Encounter | [facility] LAB[facility] | MD Pancho | | | | | [address] | | | | | | [place] | (Fax) | | | | | [address] | | | | | | [phone] | | | +--------+ + + + [...] [place] | | | | | | [address] | | | | | | | | +--------+---------+ + + + | 01/18/ | Office | Sleep Medicine | Jermaine Fairchild | | | 2019 | Visit | | MD Lars [address] | | | | | | [place] | | | | | | [place] [address] | | | | | | [phone] | | | | | | | | +--------+---------+ + + + documented as of this encounter Visit Diagnoses Not on filedocumented in this encounter"
--- OUTSIDE RECORDS SUMMARY | ~2019-06-14 | XMS | Encounter Summary ---
Demographics + + + | Address | [address] | | | [place] [address] | + + + | Home Phone | | + + + | Preferred Language | Unknown | + + + | Marital Status | Single | + + + | Jewish Affiliation | Unknown | + + + | Race | Unknown | + + + | Ethnic Group | Unknown | + + + Author + + + | Author | [facility] | | | and [place] | + + + | Organization | [facility] | | | [...] Team Providers + +------+ + | Care Film Sorter Name | Role | Phone | + +------+ + PCP | Unavailable | + +------+ + Encounter Details +--------+ + + + + | Date | Type | Department | Care Team | Description | +--------+ + + + + | 03/21/ | Hospital | [facility] | | | | 2002 | Encounter | MED CTR SLEEP | | | | | | [address] | | | | | | [place] | | | | | | [address] | | | | | | [phone] | | | +--------+ + + + [...] [place] | | | | | | [address] | | | | | | | | +--------+---------+ + + + | 01/18/ | Office | Sleep Medicine | Jermaine Fairchild | | | 2019 | Visit | | MD Lars [address] | | | | | | [place] | | | | | | [place] [address] | | | | | | [phone] | | | | | | | | +--------+---------+ + + + documented as of this encounter Visit Diagnoses Not on filedocumented in this encounter"
--- OUTSIDE RECORDS SUMMARY | ~2019-06-14 | XMS | Encounter Summary ---
Demographics + + + | Address | [address] | | | [place] [address] | + + + | Home Phone | | + + + | Preferred Language | Unknown | + + + | Marital Status | Single | + + + | Amish Affiliation | Unknown | + + + | Race | Unknown | + + + | Ethnic Group | Unknown | + + + Author + + + | Author | [facility] | | | and [place] | + + + | Organization | [facility] | | | [...] Team Providers + +------+ + | Care .Net Developer Name | Role | Phone | + +------+ + | Bassam Ross DO | PCP | | + +------+ + Reason for Visit +--------+ + | Reason | Comments | +--------+ + | Other | on O2 again | +--------+ + Encounter Details +--------+ + + + + | Date | Type | Department | Care Team | Description | +--------+ + + + + | 09/09/ | Telephone | [facility] | Adolfo Zazueta, | Other (on O2 again) | | 2017 | | PULMONARY [address] | MD [address] | | | | | [place], | [place], [place] | | | | | [place] [address] | [address] | | | | | [phone] | | | +--------+ + + + [...] 2020 | Visit | | [address] | | | | | | [place] | | | | | | [address] | | | | | | | | +--------+---------+ + + + | 01/18/ | Office | Sleep Medicine | Jermaine Fairchild | | | 2019 | Visit | | MD Lars [address] | | | | | | [place] [address] | | | | | | [place] [address] | | | | | | [phone] | | | | | | | | +--------+---------+ + + + documented as of this encounter Visit Diagnoses Not on filedocumented in this encounter"
--- OUTSIDE RECORDS SUMMARY | ~2019-06-14 | XMS | Encounter Summary ---
Demographics + + + | Address | [address] | | | [place] [address] | + + + | Home Phone | | + + + | Preferred Language | Unknown | + + + | Marital Status | Single | + + + | Mandaen Affiliation | NRP | + + + [...] | + + +---------+ + | Lana [place] | ECON | Unknown | | + + +---------+ + Care Team Providers + +------+ + | Care Microsoft Developer Name | Role | Phone | + +------+ + | Bassam Ross DO | PCP | | + +------+ + Encounter Details +--------+ + + + + | Date | Type | Department | Care Team | Description | +--------+ + + + + | 01/18/ | Abstract | Digestive Health | Clinic, Surgery | | | 2018 | | [facility] [address] | | | | | | [address] | | | | | | Mailcode: [place] | | | | | | [facility] and | | | | | | Healing, [address] | | | | | | [place], [place] | | | | | | [address] | | | | | | [phone] | | | +--------+ + + + [...]
--- OUTSIDE RECORDS SUMMARY | ~2019-06-14 | XMS | Encounter Summary ---
Demographics + + + | Address | [address] | | | [place] [address] | + + + | Home Phone | | + + + | Preferred Language | Unknown | + + + | Marital Status | Single | + + + | Religion Affiliation | Unknown | + + + | Race | Unknown | + + + | Ethnic Group | Unknown | + + + Author + + + | Author | [facility] | | | and [place] | + + + | Organization | [facility] | | | [...] Team Providers + +------+ + | Care Hydrogen Power Plant Manager Name | Role | Phone | + +------+ + | Bassam Ross DO | PCP | | + +------+ + Reason for Visit + + + | Reason | Comments | + + + | Follow-up | | + + + Evaluate & Treat (Routine) +--------+--------+ + + + + | Status | Reason | Specialty | Diagnoses / | Referred By | Referred To | | | | | Procedures | Contact | Contact | +--------+--------+ + + + + | Closed | | Pulmonology | Diagnoses | Cody, | Marbin, | | | | | Chronic | Bassam Mattson DO | MD Adolfo | | | | | airway | [address] | [address] | | | | | obstruction, | [address] | [place], | | | | | not | [address] | [place] [address] | | | | | elsewhere | [address] | Phone: | | | | | classified | [place], [place] | [phone] | | | | | Procedures | [address] | Fax: | | | | | EVAL & | Phone: | [phone] | | | | | TREAT/CONSUL | [phone] | | | | | | T | | | +--------+--------+ + + + + Encounter Details +--------+---------+ + + + | Date | Type | Department | Care Team | Description | +--------+---------+ + + + | 01/26/ | Office | [facility] | Zazueta, Adolfo, | Restrictive lung | | 2013 | Visit | PULMONARY [address] | MD [address] | disease secondary to | | | | [place], | [place], [place] | obesity (Primary | | | | [place] [address] | [address] | Dx); Hypoxemia; | | | | [phone] | | Dyspnea; COPD | | | | | | (chronic obstructive | | | | | | pulmonary disease) | | | | | | ([facility]) | +--------+---------+ + + + Social History [...] + + + | Blood Pressure | 144/82 | 01/26/2014 2:22 PM | | | | | PDT | | + + + + + | Pulse | 74 | 01/26/2014 2:22 PM | | | | | PDT | | + + + + + | Temperature | - | - | | + + + + + | Respiratory Rate | - | - | | + + + + + | Oxygen Saturation | 96% | 01/26/2014 2:22 PM | On 2LPM | | | | PDT | | + + + + + | Inhaled Oxygen | - | - | | | Concentration | | | | + + + + + | Weight | 204.1 kg (450 lb) | 01/26/2014 2:22 PM | | | | | PDT | | + + + + + | Height | 157.5 cm (5' 2") | 01/26/2014 2:22 PM | | | | | PDT | | + + + + + | Body Mass Index | 82.31 | 01/26/2014 2:22 PM | | | | | PDT | | + + + + + documented in this encounter Patient Instructions Patient Instructions Adolfo Zazueta MD - 01/26/2014 3:04 PM PDT Flu Shots for People 50 or Older The flu (influenza) is caused by a virus that is easily spread. It can be a lot more seriou s than you think, especially for people 50 or older. A flu shot protects you and othersfro m the flu. It s best to get a flu shot each fall, before flu season starts. You can get it at your doctor s office or a health clinic. Drugstores, senior centers, and workplaces of [facility] offer flu shots, too. If you have questions, ask your healthcare provider. And remember: A flu shot could save your life! Flu Facts The flu shot will not give you the flu. The flu can be dangerous even life-threatening. Every year, about 36,000 people of complications from the flu. The flu is caused by a virus. It can t be treated with antibiotics. Influenza is not the same as stomach flu, the 24-hour bug that causes vomiting and diarrhea. This is most likely due to a GI (gastrointestinal) infection not the flu. You need to get a flu shot each year. Last year s shot will not protect you from this year s flu. Flu Symptoms Flu symptoms tend to come on quickly. Fever, headache, fatigue, cough, sore throat, runny n ose, and muscle aches are symptoms of the flu. Upset stomach and vomiting are not common for adults. Some symptoms, such as fatigue and cough, may last a few weeks. How a Flu Shot Protects You There are many strains (types) of flu viruses. Medical experts predict which 3 strains are most likely to make people sick each year. Flu shots are made from these strains. When you g et a flu shot, inactivated ( killed ) flu viruses are injected into your body. These can not give you the flu. But they do prompt your body to make antibodies to fight these flu str ains. If you re exposed to the same strains later in the flu season, the antibodies will f ight off the germs. People 50 or Older Should Get Flu Shots If you re 50 or older, you should get a flu shot, especially if you re in any of these high-risk groups: People with chronic health problems (such as diabetes, chronic lung disease, asthma, hea rt failure, or kidney failure) People undergoing certain medical treatments People who live in nursing homes or other long-term care facilities Caregivers and household contacts of babies younger than 6 months Healthcare workers Who Can t Get a Flu Shot? People severely allergic to eggs People who have had bad reactions to flu vaccination (including Guillain-Brownlee syndrome ) A person who has a high fever (the shot can be given after the fever goes away) Types of Flu Vaccines Three types of flu shots are available for persons 50 years and older. Talk with your docto r about which shot is right for you. The regular flu shot is injected with a needle into the muscle of your upper arm. The high dose shot is only for persons 65 years and older. This vaccine has four times t he amount of killed viruses than the regular flu shot. This helps the body produce more anti bodies, which is important for older persons whose immune systems are weaker. The intradermal shot is injected into the skin with a much smaller needle than for the r egular flu shot. This vaccine has 40% less the amount of killed viruses than the regular flu shot. But it is just as effective as the regular flu shot in prompting the body to produce antibodies. What About the Nasal Vaccine? You may have heard about a flu vaccine that s sprayed into the nose. This nasal vaccine i s only for healthy people ages 5 to 49. So it may be an option for others in your family, bu t not for you. 2639-5858 [facility], [address] [place] [address], [place] [address]. All rights reserve d. This information is not intended as a substitute for professional medical care. Always fo llow your healthcare professional's instructions. documented in this encounter Progress Notes Adolfo Zazueta MD - 01/26/2014 2:44 PM PDTFormatting of this note might be different f rom the original. Pulmonary Clinic Follow Up 01/26/2014 HPI Aspen Darden is a 43 y.o. female patient of Bassam Ross DO here today for follow up o f dyspnea/hypoxemia. It has been 1 month since our last clinic appointment. At their last visit, we established a plan to perform PFTs and oximetry. Since the last visit she feels like their symptoms are stable. They have have not had any recent episodes of "bronchitis-like" symptoms. To treat their possible COPD they are currently on a regimen of prn Duoneb and albuterol. They do feel like this medication (Duoneb the most) regimen is working for them. They do not report the presence of side effects from these medication(s). Currently Aspen Darden is able to walk 75 feet at their own pace on level ground before d eveloping symptoms. They are not exercising regularly. Limited by knee issues. They are no t enrolled in cardiac/pulmonary rehabilitation. She does cough chronically, and does produce mucous. More throat clearing than coughing. T he mucous is clear in color and scant. They have not had hemoptysis since our last appointme nt. She has been evaluated for nocturnal oxygen and does qualify for use. They are currently on 2 LPM at night plus CPAP. They report oxygen use with exertion at 2 LPM. She does not had symptoms of heartburn or reflux. They have not had symptoms of nasal conge stion or post nasal drip. The patient is pursuing bariatric surgery at [facility]. Past Medical History Past Medical History Diagnosis Date Obesity Central alveolar hypoventilation syndrome ANNABEL (obstructive sleep apnea) ~2003 Wears CPAP, sees Dr. Fairchild Periodic limb movement disorder (PLMD) Depression with anxiety Nephrotic syndrome (HCC) Previous. Resloved per pt. resport. COPD (chronic obstructive pulmonary disease) (HCC) patent denies Osteoarthritis Hypothyroidism Vitamin D deficiency Anemia patent denies Insomnia Hypertensive disorder Lymphedema Allergic rhinitis due to pollen Cyst of ovary Endometriosis s/p GLENN BSO Asthma adult diagnosis MRSA (methicillin resistant Staphylococcus aureus) septicemia ([facility]) left foot source Fracture, humeral 2012 Allergies: Allergies Allergen Reactions Advair Hfa Bontril [...] daily (with breakfast)., Disp: , Rfl : No current facility-administered medications for this visit. Facility-Administered Medications Ordered in Other Visits: [COMPLETED] albuterol 2.5 mg/3 m L nebulizer solution 2.5 mg, 2.5 mg, Nebulization, RT Once, Adolfo Zazueta MD, 2.5 mg at 01/26/14 1335 Immunizations: Immunization History Administered Date(s) Administered INFLUENZA, [...] Denies urticaria or allergic rashes. Objective BP 144/82 | Pulse 74 | Ht 1.575 m (5' 2") | Wt 204.119 kg (450 lb) | BMI 82.29 kg/m2 | SpO2 96% Appearance: Alert, cooperative, no distress, appears stated [...] Extremities: Extremities normal, atraumatic, no cyanosis, clubbing. 1+ edema to the midcal f bilaterally Skin: Warm and dry Lymph nodes: Cervical and supraclavicular nodes normal Neurologic: Gait normal Data: Chest x-ray(s) were done on 11/16/13 and 01/03/14. They were reviewed and interpreted in clin ic today with the patient . They show normal pulmonary parenchyma. There is a question of e nlarged pulmonary arteries. Pulmonary function tests show a postbronchodilator FEV1 of 1.38, 52% of pre dicted. The FEV1 increases by 190 mL or 16% with the inhalation of albuterol. The postbron chodilator FVC is 1.89, 60% of predicted. Total lung capacity 3.60, 76% of predicted the un corrected DLCO was 18.9, 74% of predicted. Exertional oximetry: Patient walked 150 feet. Her resting O2 saturation on supplemental ox ygen appears appropriate. She desaturated minimally (down to 91%) on supplemental oxygen at 2 L per minute. Record review the records from [facility] reference a COPD exacerbation treated with bronchodilators and systemic corticosteroids. We also have records from the patient's cardiology evaluation at [facility]. Assessment 1. Dyspnea-etiology of this patient's shortness of breath is likely multifactorial. She h as moderate restrictive changes secondary to morbid obesity. No significant diffusion abnor mality is present. My overall suspicion of significant underlying pulmonary hypertension is not high. The patient does appear to respond to bronchodilators suggesting a component of obstructive lung disease. The differential diagnosis would include COPD versus asthma. One could consider the use of an inhaled corticosteroid. Ms. Darden is using short acting bronchodilators as needed. Her chest x-ray does not suggest the presence of interstitial lung disease. Likewise inter stitial lung disease is not supported by the pulmonary function tests. 2. Hypoxemia-supplemental oxygen at 2 L per minute appears appropriate. I suggested to e patient that she wear supplemental oxygen at this level 22/12. This would include suppleme ntal oxygen through CPAP at night while sleeping. This patient's shortness of breath and hypoxemia altered likely significantly improve with significant weight loss. I do not see a contraindication to performing bariatric surgery in this patient. Total duration the patient's clinic appointment was in excess of 30 minutes. [facility] spent in counseling related to the impact of morbid obesity and deconditioning on the patient shortness of breath. Plan 1. Continue with DuoNeb via nebulizer or albuterol via metered-dose inhaler up to every 4 hours as needed for shortness of breath. 2. Consider trial of an inhaled corticosteroid if worsening symptoms of airflow junction w ere noted. 3. Supplemental oxygen changes as described above. 4. A copy this documentation will be forwarded to the patient's primary care provider and bariatric surgeon. 5. Pulmonary clinic followup appointment after her bariatric surgery. CC: Bassam Ross documented in this encounter Plan of Treatment +--------+---------+ + + + | Date | Type | Specialty | Care Team | Description | +--------+---------+ + + + | 06/14/ | Office | Pulmonology | Adolfo Zazueta, | | | 2019 | Visit | | MD Jac JOHNSON | | | | | | [place] | | | | | | [phone] | | | | | | | | +--------+---------+ + + + | 01/18/ | Office | Sleep Medicine | Jermaine Fairchild | | | 2019 | Visit | | MD Jac Sousa [address]cd[address] | | | | | | [address] | | | | | | [place] [address] | | | | | | [phone] | | | | | | | | +--------+---------+ + + + documented as of this encounter Visit Diagnoses + + | Diagnosis | + + | Restrictive lung disease secondary to obesity - Primary Other diseases of lung, not | | elsewhere classified | + + | Hypoxemia | + + | Dyspnea Other dyspnea and respiratory abnormality | + + | COPD (chronic obstructive pulmonary disease) (HCC) Chronic airway obstruction, not | | elsewhere classified | + + documented in this encounter
--- OUTSIDE RECORDS SUMMARY | ~2019-06-14 | XMS | Encounter Summary ---
Demographics + + + | Address | [address] | | | [place] [address] | + + + | Home Phone | | + + + | Preferred Language | Unknown | + + + | Marital Status | Single | + + + | Moravian Affiliation | NRP | + + + [...] | + + +---------+ + | Lana [place] | ECON | Unknown | | + + +---------+ + Care Team Providers + +------+ + | Care Strategic Development Manager Name | Role | Phone | + +------+ + | Bassam Ross DO | PCP | | + +------+ + Encounter Details +--------+ + + + + | Date | Type | Department | Care Team | Description | +--------+ + + + + | 11/04/ | MyChart | Cardiology | Sheila Loya | RE: results | | 2013 | Encounter | [facility]ive at [facility] | JULIETA Figu[address]a [address] | | | | | [address] | [address] [place], | | | | | Mailcode: [address] | [place] [address] | | | | | [facility] | [phone] | | | | | and Healing, | | | | | | [address] | | | | | | [place], [place] | | | | | | [address] | | | | | | [phone] | | | +--------+ + + + [...]
--- OUTSIDE RECORDS SUMMARY | ~2019-06-14 | XMS | Encounter Summary ---
Demographics + + + | Address | [address] | | | [place] [address] | + + + | Home Phone [...] | + + +---------+ + | Lana [place] | ECON | Unknown | | + + +---------+ + Care Team Providers + +------+ + | Care Instrument Repair Supervisor Name | Role | Phone | + +------+ + PCP | Unavailable | + +------+ + Encounter Details +--------+ + + + + | Date | Type | Department | Care Team | Description | +--------+ + + + + | 05/06/ | Documentati | Digestive Health | Thania Cardenas, | | | 2012 | on | [facility] [address] | AC[facility] [address] | | | | | [address] | [address] [place], [place] | | | | | Mailcode: [place] | [address] | | | | | for Health and | | | | | | [facility] [address] | | | | | | [facility] [place] | | | | | | [address] | | | | | | | [...]
--- OUTSIDE RECORDS SUMMARY | ~2019-06-14 | XMS | Encounter Summary ---
Demographics + + + | Address | [address] | | | [place] [address] | + + + | Home Phone [...] + + + | Author | [facility] | | | and [place] | + + + | Organization | [facility] | | [...] Team Providers + +------+ + | Care Donation Worker Name | Role | Phone | [...] | | | Pulmonology | persistent | [address] | [address] | | | | | asthma, | [address] | [place], | | | | | uncomplicate | [address] [place] | [place] [address] | | | | | d | [phone] | Phone: | | | | | Obstructive | [place], [place] | [phone] | | | | | sleep apnea | [address] | Fax: | | | | | (adult) | Phone: | [phone] | | | | | (pediatric) | [phone] | | | | | | Procedures | | | | | | | F/U JIAN LIMON | | | | | | | MARBIN | | | | | | | 06/23/17 | | | +--------+--------+ + + + + Encounter Details +--------+---------+ + + + | Date | Type | Department | Care Team | Description | +--------+---------+ + + + | 07/10/ | Office | [facility] | Adolfo Zazueta, | Restrictive lung | | 2018 | Visit | PULMONARY [address] | MD [address] | disease secondary to | | | | [place], | [place], [place] | obesity (Primary | | | | [place] [address] | [address] | Dx); Obstructive | | | | [phone] | | sleep apnea; Mild | | [...] + | Pulse | 108 | 07/10/2017 2:50 PM | Atrial Fibrillation | | | | PST | | + + + + + | Temperature | - | - | | + + + + + | Respiratory Rate | - | - | | + + + + + | Oxygen Saturation | 95% | 07/10/2017 2:50 PM | 2 L/M | | | | PST | | + + + + + | Inhaled Oxygen | - | - | | | Concentration | | | | + + + + + | Weight | 190.6 kg (420 lb 3.2 | 07/10/2017 2:50 PM | | | | oz) | PST | | + + + + + | Height | 157.5 cm (5' 2") | 07/10/2017 2:50 PM | | | | | PST | | + + + + + | Body Mass Index | 76.86 | 07/10/2017 2:50 PM | | | | | PST | | + + + + + documented in this encounter Patient Instructions Patient Instructions Adolfo Zazueta MD - 07/10/2017 3:00 PM PST Asthma (Adult) Asthma is a [...] more than every 4 hours, contact your [facility] provider or seek immediate medical attention. If [...] not already have one, talk to your [facility] provider about developing a personalized "Asthma Action [...] turning arizmendi or blue Date Last Reviewed: 05/02/201519992364-7771 [employer]. [address] [place] [address]. All righ ts reserved. This information is not intended as a substitute for professional medical care. Always follow your healthcare professional's instructions. documented in this encounter Progress Notes Adolfo Zazueta MD - 07/10/2017 3:00 PM PSTFormatting of this note might be different f rom the original. Pulmonary Follow Up 07/10/2017 HPI Aspen Gonsalez Adelso is a 46 y.o. female patient of Bassam Ross DO here today for [facility] a [facility]. The patient's last visit was on 06/05/16. [...] palpitations apparently worsened necessi tating evaluation at [facility]. She was admitted on 06/06/17 and treated [...] up to date with thei r Pneumovax. Past Medical History Past Medical History: Diagnosis Date Acid reflux disease Allergic rhinitis due to pollen Anemia patent denies Asthma adult diagnosis Central alveolar hypoventilation syndrome COPD (chronic obstructive pulmonary disease) (HCC) patent denies Cyst of ovary Depression with anxiety GROSSMAN (dyspnea on exertion) Endometriosis s/p GLENN BSO Fracture, humeral 2012 Hypertensive disorder Hypothyroidism Insomnia Lymphedema MRSA (methicillin resistant Staphylococcus aureus) septicemia ([facility]) left foot source Nephrotic [...] Neurologic: Gait normal. Data: Discharge summary from [facility] dated 06/07/15 was reviewed. Assessment 1. Asthma [...] be lengthened to 6 mo nths. CC: Bassam Ross, DO documented in this [...] | Visit | | MD [address] [place] | | | | | [place] | | | | | | [place] [address] | | | | | | [phone] | | | | | | | [...] | e | disease secondary to | 07/10/2017, Expires: | | | | | obesity | 07/10/2018 | + + +--------+ + + documented [...]
--- OUTSIDE RECORDS SUMMARY | ~2019-06-14 | XMS | Encounter Summary ---
Demographics + + + | Address | [address] | | | [place] [address] | + + + | Home Phone | | + + + | Preferred Language | Unknown | + + + | Marital Status | Single | + + + | Sabianism Affiliation | Unknown | + + + [...] Providers + +------+ + | Care Print Color Operator Name | Role | Phone | + +------+ + PCP | Unavailable | + +------+ + Encounter Details +--------+ + + + + | Date | Type | Department | Care Team | Description | +--------+ + + + + | 09/24/ | [facility] | [facility] | Jermaine Fairchild | | | 2008 | Encounter | MED CTR SLEEP | MD Lars [address] | | | | | CENTER [address] | [address] [place] | | | | | [place] | [place] [address] | | | | | [address] | [phone] | | | | | [phone] | | | +--------+ + + + [...] [place] | | | | | | [address] | | | | | | | | +--------+---------+ + + + | 01/18/ | Office | Sleep Medicine | Jermaine Fairchild | | | 2019 | Visit | | MD Lars [address] | | | | | | [place] | | | | | | [place] [address] | | | | | | [phone] | | | | | | | | +--------+---------+ + + + documented as of this encounter Visit Diagnoses Not on filedocumented in this encounter"
--- OUTSIDE RECORDS SUMMARY | ~2019-06-14 | XMS | Encounter Summary ---
Demographics + + + | Address | [address] | | | [place] [address] | + + + | Home Phone [...] + + + | Author | [facility] | | | and [place] | + + + | Organization | [facility] | | [...] Providers + +------+ + | Care Medical Secretary Receptionist Name | Role | Phone | [...] + + | 09/22/ | Office | [facility] | Jermaine Fairchild | Obesity | | 2017 | Visit | SLEEP DISORDER [address] | MD Lars [address] | hypoventilation | | | | [address] [place] | [address] [place] | syndrome (HCC) | | | | [place] [address] | [place] [address] | (Primary Dx); ANNABEL | | | | [phone] | [phone] | (obstructive sleep | | | | [...] + | Blood Pressure | 140/90 | 09/22/2017 10:02 AM | | | | | PDT | | + + + + + | Pulse | 106 | 09/22/2017 10:02 AM | | | | | PDT | | + + + + + | Temperature | - | - | | + + + + + | Respiratory Rate | 20 | 09/22/2017 10:02 AM | | | | | PDT | | + + + + + | Oxygen Saturation | 90% | 09/22/2017 10:02 AM | | | | | PDT | | + + + + + | Inhaled Oxygen | - | - | | | Concentration | | | | + + + + + | Weight | 190.4 kg (419 lb | 09/22/2017 10:02 AM | | | | 12.1 oz) | PDT | | + + + + + | Height | - | - | | + + + + + | Body Mass Index | 76.77 | 07/10/2017 2:50 PM | | | | | PST | | + + + + + documented in this encounter Progress Notes Jermaine Fairchild Jr., MD - 09/22/2017 10:00 AM PDTThe patient comes in for follow-up after undergoing polysomnographically guided positive airway pressure titration. My interpretation of the patient's sleep study, which I have reviewed with the patient, is as follows: Positive Airway Pressure Titration Report on Aspen Darden performed on September 21, 2017. Clinical Information: Aspen Darden is a 47 y.o. female who underwent polysomnographicall y guided PAP on September 21, 2017. The patient has a long-standing history of obstructive slee p apnea as well as obesity hypoventilation syndrome. Recently she has been hospitalized in [place] with pneumonia and in addition to CPAP requires oxygen 2 L a minute. She is broug ht into the laboratory to present time for repeat positive airway pressure titration and oxy gen titration. Technical Information: Please see technical data which is attached. Definitions (The AASM Manual for the Scoring of Sleep and Associated Events, Version 2.4; 2 017): Apnea: There is a drop in the peak signal excursion by 90% or greater of pre-rei nt baseline using an oronasal thermal sensor (diagnostic study), PAP device flow (titration study), or an alternative apnea sensor (diagnostic study); the duration of the 90% or greate r drop in sensor signal is 10 seconds or longer. Obstructive Apnea: Event associated with continued or increased inspi ratory effort throughout the entire period of absent airflow. Central Apnea: Event associated with absent inspiratory effort throug hout the entire period of absent airflow. Mixed Apnea: Event associated with absent inspiratory effort in the i nitial portion of the event followed by resumption of inspiratory effort during the second p ortion of the event. Hypopnea: The peak signal excursions drop by greater than or equal to 30% of pre -event baseline using a recommended or alternative airflow sensor and the duration of the >= 30% drop in signal excursion is greater than or equal to 10 seconds and there is a greater than or equal to a 4% oxygen desaturation from pre-event baseline. Respiratory Event Related Arousal: A sequence of breaths lasting 10 seconds or l onger characterized by increasing respiratory effort or by flattening of the inspiratory por tion of the nasal pressure (diagnostic study) or PAP device flow (titration study) waveform leading to arousal from sleep when the sequence of breaths does not meet criteria for an company secretary ea or hypopnea. Sleep Architecture: Lights out was recorded at 2319 hundred hours on September 21, 2017 and li ghts on was recorded at 0802 hundred hours on September 22, 2017. The latency to sleep onset was normal at 12 minutes. The patient slept for 392 minutes out of 522.5 minutes of study time resulting an a sleep efficiency that was low at 75 %. The amount of N1 sleep was mildly bryson vated at 11.1 % of the Total Sleep Time; the amount of N2 sleep was normal at 64.2 % of the Total Sleep Time; the amount of N3 sleep was normal at 10.7 % of the Total Sleep Time; the a mount of REM sleep was mildly decreased at 14 % of the Total Sleep Time and the latency to REM sleep was mildly prolonged at 158 minutes. Sleep was recorded in the following positions: left lateral decubitus 0.5%, right lateral d ecubitus 25.1%, supine 74.4%, prone 0%. Sleep was significantly fragmented; the Arousal Index was 32.4. Cardiopulmonary Monitoring: The heart rate averaged in the 80s beats per minute. Mild rate variability was noted. The rhythm was sinus. In the course of the evening the patient started at CPAP of 10 cm with oxygen 2 L/minute. This was increased to CPAP of 12 cm because of oxygen desaturation as well as end-tidal CO2 levels in the low 60s. At this level of support arterial blood gases were obtained which re vealed a pH of 7.383, PCO2 62.9, PaO2 69.2. Because of hypoventilation the patient was swit ched to iVAPS therapy. Oxygen was also gradually increased to maintain saturations in the 9 0% range. The patient finished the evening on oxygen 5 L/m,Target Va 4.5, Tgt NJ 20; EPAP 1 1; Max PS 16cm; Min PS 6cm; TiMin 0.8; Rise Time 400; Trigger M, Cycle M. at this level of s upport oxygen saturation appeared much improved and normal. End-tidal CO2 levels however re mained elevated. At the end of the study arterial blood gases were repeated which revealed at this level of support (at 0758 hours) a PVC O2 of 62.3, PO2 84.2, pH 7.392. Limb Movement Monitoring: There were 17 Periodic Limb Movements (PLMS Index 2.6) of which 6 were associated with arousals; the PLMS Arousal Index was normal at 0.9. Interpretation: This is a satisfactory PAP and oxygen titration study. 1. The patient has obstructive sleep apnea as well as severe obesity related hypoventilati on which appears to be controlled with iVAPS: Target Va 4.5, Tgt NJ 20; EPAP 11; Max PS 16cm ; Min PS 6cm; TiMin 0.8; Rise Time 400; Trigger M, Cycle M with oxygen 5 l/min. Suggestions: 1. The principles of Sleep Hygiene should be reviewed with the patient. 2. iVAPS: Target Va 4.5, Tgt NJ 20; EPAP 11; Max PS 16cm; Min PS 6cm; TiMin 0.8; Rise Time 400; Trigger M, Cycle M with oxygen 5 l/min is advised. BP 140/90 | Pulse 106 | Resp 20 | Wt (!) 190.4 kg (419 lb 12.1 oz) | SpO2 90% | BMI 76 .77 kg/m A: Obesity Hypoventilation Syndrome and ANNABEL: I think this is required iVAPS as described ab lucien with oxygen 5 l/min. I've discussed this with her in detail. I think that weight loss h owever is the best option. I think reconsultation at [facility] is w arranted to see if they wouldn't reconsider gastric bypass surgery. The non-invasive control of her hypoventilation with iVAPS while asleep is appropriate but I do not think she has an y reserve and even the slightest pulmonary illness is likely to overwhelm are noninvasive ap proach. Weight loss, however, could dramatically help this patient. Morbid Obesity: See above. P: iVAPS: . iVAPS: Target Va 4.5, Tgt NJ 20; EPAP 11; Max PS 16cm; Min PS 6cm; TiMin 0.8; R ise Time 400; Trigger M, Cycle M with oxygen 5 l/min is prescribed. Will ask Dr. Ross to consider re-referring her to [facility] for reconsideration of Gastric Bypass Surgery. Today, 15 minutes was spent face to face with the patient; the majority of time was spent c charitynseling regarding obesity hypoventilation syndrome. documented in th is encounter Plan of Treatment +--------+---------+ + + + | Date | Type | Specialty | Care Team | Description | +--------+---------+ + + + | 06/14/ | Office | Pulmonology | Adolfo Zazueta, | | | 2019 | Visit | | MD [address] | | | | | | [place] | | | | | | [address] | | | | | | | | +--------+---------+ + + + | 01/18/ | Office | Sleep Medicine | Jermaine Fairchild | | | 2019 | Visit | | MD [address] | | | | | | [address] [place] | | | | | | [place] [address] | | | | | | [phone] | | | | | | | | +--------+---------+ + + + documented as of this encounter Procedures + +--------+ + + + | Procedure Name | Priori | Date/Time | Associated Diagnosis | Comments | | | ty | | | | + +--------+ + + + | LABS - EXTERNAL SCAN | | 08/20/2017 | | Results for this | | | | 12:00 AM | | procedure are in the | | | | PDT | | results section. | + +--------+ + + + documented in this encounter Results LABS - EXTERNAL SCAN (08/20/2017 12:00 AM PDT) + + + | [...]
--- OUTSIDE RECORDS SUMMARY | ~2019-06-14 | XMS | Encounter Summary ---
Demographics + + + | Address | [address] | | | [place] [address] | + + + | Home Phone | | + + + | Preferred Language | Unknown | + + + | Marital Status | Single | + + + | Judaism Affiliation | Unknown | + + + | Race | Unknown | + + + | Ethnic Group | Unknown | + + + Author + + + | Author | [facility] | | | and [place] | + + + | Organization | [facility] | | [...] Team Providers + +------+ + | Care Insurance Law Specialist Name | Role | Phone | + +------+ + PCP | Unavailable | + +------+ + Encounter Details +--------+ + + + + | Date | Type | Department | Care Team | Description | +--------+ + + + + | 09/18/ | [facility] | [facility] | Jermaine Fairchild | | | 2007 | Encounter | MED CTR SLEEP | MD Lars [address] | | | | | CENTER [address] | [address] [place] | | | | | [place] | [place] [address] | | | | | [address] | [phone] | | | | | [phone] | | | +--------+ + + + [...] [place] | | | | | | [address] | | | | | | | | +--------+---------+ + + + | 01/18/ | Office | Sleep Medicine | Jermaine Fairchild | | | 2019 | Visit | | MD Lars [address] | | | | | | [place] | | | | | | [place] [address] | | | | | | [phone] | | | | | | | | +--------+---------+ + + + documented as of this encounter Visit Diagnoses Not on filedocumented in this encounter"
--- OUTSIDE RECORDS SUMMARY | ~2019-06-14 | XMS | Encounter Summary ---
Demographics + + + | Address | [address] | | | [place] [address] | + + + | Home Phone [...] Providers + +------+ + | Care Wood Scaler Name | Role | Phone | + [...] | +--------+ + + + + | 12/18/ | Abstract | Digestive Health | Thania Cardenas, | Medical Records | | 2016 | | Center at [facility] [address] | [facility] [address] | Review | | | | [address] | [place], [place] | | | | | Mailcode: [place] | [address] | | | | | [facility] and | [phone] | | | | | [place] [address] | | | | | | [place], [place] | | | | | | [address] | | | | | | [phone] | | | +--------+ + + + [...]
--- OUTSIDE RECORDS SUMMARY | ~2019-06-14 | XMS | Encounter Summary ---
Demographics + + + | Address | [address] | | | [place] [address] | + + + | Home Phone [...] | + + +---------+ + | Lana [place] | ECON | Unknown | | + + +---------+ + Care Team Providers + +------+ + | Care Marine Underwriter Name | Role | Phone | + +------+ + | Bassam Ross DO | PCP | | + +------+ + Encounter Details +--------+ + + + + | Date | Type | Department | Care Team | Description | +--------+ + + + + | 06/27/ | [facility] | Digestive Health | Thania Cardenas, | | | 2015 | | Center at [facility] [address] | [facility] [address] | | | | | [address] | [place], [place] | | | | | Mailcode: [place] | [address] | | | | | for Health and | | | | | | [facility] [address] | | | | | | [place], [place] | | | | | | [address] | | | | | | | [...]
--- OUTSIDE RECORDS SUMMARY | ~2019-06-14 | XMS | Encounter Summary ---
Demographics + + + | Address | [address] | | | [place] [address] | + + + | Home Phone [...] Providers + +------+ + | Care Camera Tuning Engineer Name | Role | Phone | + +------+ + | Iqra Peralta MD | PCP | | + +------+ + Encounter Details +--------+ + + + + | Date | Type | Department | Care Team | Description | +--------+ + + + + | 04/16/ | Documentati | Digestive Health | Clinic, Surgery | | | 2018 | on | Center at [facility] [address] | | | | | | [address] | | | | | | Mailcode: [place] | | | | | | for Health and | | | | | | [facility] [address] | | | | | | [place], [place] | | | | | | [address] | | | | | | [phone] | | | +--------+ + + + [...]
--- OUTSIDE RECORDS SUMMARY | ~2019-06-14 | XMS | Encounter Summary ---
Demographics + + + | Address | [address] | | | [place] [address] | + + + | Home Phone [...] | + + +---------+ + | [place] | ECON | , [place] | | + + +---------+ + Care Team Providers + +------+ + | Care Director Of Estate Name | Role | Phone | + +------+ + PCP | Unavailable | + +------+ + Encounter Details +--------+ + + + + | Date | Type | Department | Care Team | Description | +--------+ + + + + | 02/04/ | Hospital | [facility] | | | | 2002 | Encounter | MED CTR EMERGENCY | | | | | | [address] | | | | | | [place] | | | | | | [address] | | | | | | [phone] | | | +--------+ + + + [...] [place] | | | | | | [id number] | | | | | | | | +--------+---------+ + + + | 01/18/ | Office | Sleep Medicine | Jermaine Fairchild | | | 2019 | Visit | | MD Lars [address] | | | | | | [place] | | | | | | [place] [address] | | | | | | [phone] | | | | | | | | +--------+---------+ + + + documented as of this encounter Visit Diagnoses Not on filedocumented in this encounter"
--- OUTSIDE RECORDS SUMMARY | ~2019-06-14 | XMS | Encounter Summary ---
Demographics + + + | Address | [address] | | | [place] [address] | + + + | Home Phone [...] Team Providers + +------+ + | Care Wrecking Car Driver Name | Role | Phone [...] + + + + | 12/26/ | Abstract | Digestive Health | Traci Do, | Medical Records | | 2016 | | Center at [facility] [address] | PHLEBOTOMIST SUPERVISOR/INSTRUCTOR [address] | Review | | | | [address] | [facility] [address] | | | | | Mailcode: [place] | [place], [place] | | | | | [facility] and | [address] | | | | | [place] [address] | [phone] | | | | | [place], [place] | | | | | | [address] | | | | | | [phone] | | | +--------+ + + + [...]
--- OUTSIDE RECORDS SUMMARY | ~2019-06-14 | XMS | Encounter Summary ---
Demographics + + + | Address | [address] | | | [place] [address] | + + + | Home Phone [...] + + + | Author | [facility] | | | and [place] | + + + | Organization | [facility] | | [...] Team Providers + +------+ + | Care Movers Name | Role | Phone | + +------+ + | Iqra Peralta MD | PCP | | + +------+ + Encounter Details +--------+ + + + + | Date | Type | Department | Care Team | Description | +--------+ + + + + | 07/22/ | Orders Only | [facility] | Conversion | | | 2019 | | NEPHROLOGY JAMES | Transaction, | | | | | [address] | Provider Unknown | | | | | [address] [place] | [phone] | | | | | [address] | | | | | | [phone] | | | +--------+ + + + [...] [place] | | | | | | [address] | | | | | | | | +--------+---------+ + + + | 01/18/ | Office | Sleep Medicine | Jermaine Fairchild | | 2019 | Visit | | MD Jac [address] | | | | | | [address] | | | | | | [place] [address] | | | | | | [phone] | | | | | | | | +--------+---------+ + + + documented as of this encounter Procedures + +--------+ + + + | Procedure Name | Priori | Date/Time | Associated Diagnosis | Comments | | | ty | | | | + +--------+ + + + | EXTERNAL LAB: CBC | Routin | 07/22/2018 | | Results for this | | | e | 10:09 AM | | procedure are in the | | | | PST | | results section. | + +--------+ + + + | URINALYSIS, | Routin | 07/22/2018 | | Results for this | | MICROSCOPIC ONLY | e | 10:09 AM | | procedure are in the | | | | PST | | results section. | + +--------+ + + + | PROTEIN/CREATININE | Routin | 07/22/2018 | | Results [...] + + documented in this encounter Results Protein/Creatinine Ratio, Urine (07/22/2018 10:09 AM PST) + + + + + + | Component | Value | Ref Range | Performed | Pathologist | | | | | At | Signature | + + + + + + | Protein/Cre | 3723.4 (A) | 0 - 150 | EXTERNAL [...] + +---------+ + + Urinalysis, Microscopic Only (07/22/2018 10:09 AM PST) + + + + + [...] + + + + | Specific | 1.035 (A) | 1.005 - 1.030 | EXTERNAL | | | [place] | | | LAB | | + + + + + + | Leukocyte | Trace | | EXTERNAL | | | Esterase, [...] + + + + | Protein, | TraceComment: 300 | | EXTERNAL | | | Urine | | | LAB | | + + + + + + | pH, Urine | 5 | 5 - 9 | EXTERNAL | | | | | | LAB | | + + + + + + | Blood, | Negative | | EXTERNAL | | | Urine | | | LAB | | + + + + + + | Ketones | Negative | | EXTERNAL | | | | | | LAB | | + + + + + + | Bilirubin, | Negative | | EXTERNAL | | | Urine | | | LAB | | + + + + + + | Glucose, | Trace | | EXTERNAL | | | Urine [...] + +---------+ + + External Lab: CBC (07/22/2018 10:09 AM PST) + + + + + + | Component | Value | Ref Range | Performed | Pathologist | | | | | At | Signature | + + + + + + | WBC | 9.0 | 4.5 - 11.0 10 | EXTERNAL | | | | | | LAB | | + + + + + + | RED CELL | 4.70 | 3.8 - 5.1 10 | EXTERNAL | | | COUNT | | | LAB | | + + + + + + | Hgb | 14.8 | 12.0 - 16.0 | EXTERNAL | | | | | g/dL | LAB | | + + + + + + | Hematocrit, | 45.7 (A) | 35 - 45 % | EXTERNAL | | | POC | | | LAB | | + + + + + + | MCV | 97.2 | 81 - 99 fL | EXTERNAL | | | | | | LAB | | + + + + + + | MCH | 31 | 27 - 33 pg | EXTERNAL | | | | | | LAB | | + + + + + + | MCHC | 32 | 30 - 36 g/dL | EXTERNAL | | | | | | LAB | | + + + + + + | Platelet | 313 | 140 - 440 K/ L | EXTERNAL | | | Count | | | LAB | | | Plasma | | | | | + + + + + + | RDW-CV | 16.6 (A) | 10.5 - 15.0 % | EXTERNAL | | | | | | LAB | | + + + + + + | MPV | | fL | EXTERNAL | | | | | | LAB | | + + + + + + | Differentia | | | EXTERNAL | | | l Type | | | LAB | | + + + + + + | % Segmented | 71.3 | 39 - 80 % | EXTERNAL | | | | | | LAB | | | Neutrophils | | | | | + + + + + + | % | 16.4 (A) | 24 - 44 % | EXTERNAL | | | Lymphocytes | | | LAB | | + + + + + + | % Monocytes | 7.5 | 0 - 12 % | EXTERNAL | | | | | | LAB | | + + + + + + | % | 4.2 | 0 - 6 % | EXTERNAL | | | Eosinophils | | | LAB | | + + + + + + | % Basophils | 0.6 | 0 - 2 % | EXTERNAL | | | | | | LAB | | + + + + + + | Absolute | | / L | EXTERNAL | | | Segmented | | | LAB | | | Neutrophils | | | | | + + + + + + | Absolute | | / L | EXTERNAL | | | Lymphocytes | | | LAB | | + + + + + + | Absolute | | / L | EXTERNAL | | | Monocytes | | | LAB | | + + + + + + | Absolute | | / L | EXTERNAL | | | Eosinophils | | | LAB | | + + + + + + | Absolute | | / L | EXTERNAL | | | Basophils | | | LAB | | + + + + + + + + | Specimen | + + | Blood specimen | | (specimen) | + + + +---------+ + + | Performing | Address | City/State/Zipcode | Phone Number | | Organization | | | | + +---------+ + + | EXTERNAL LAB | | | | + +---------+ + + Uric Acid (07/22/2018 10:09 AM PST) + +-------+ + + + | Component | Value | Ref Range | Performed | Pathologist | | | | | At | Signature | + +-------+ + + + | Uric Acid | 4.8 | 2.3 - 6.6 | EXTERNAL | | | | | [...] + +---------+ + + Basic Metabolic Panel (07/22/2018 10:09 AM PST) + +---------+ + + + | Component | Value | Ref Range | Performed | Pathologist | | | | | At | Signature | + +---------+ + + + | Glucose, | 172 (A) | 70 - 100 mg/dL | EXTERNAL | | | Fasting | | | LAB | | + +---------+ + + + | BUN | 14 | 6 - 23 mg/dL | EXTERNAL | | | | | | LAB | | + +---------+ + + + | Creatinine | 0.68 | 0.60 - 1.35 | EXTERNAL | | | | | mg/dL | LAB | | + +---------+ + + + | BUN/Creatin | 20.6 | 6.0 - 28.6 | EXTERNAL | | | ine Ratio | | | LAB | | + +---------+ + + + | Calcium | 10.1 | 8.5 - 10.3 | EXTERNAL | | | | | mg/dL | LAB | | + +---------+ + + + | Na | 142 | 132 - 143 | EXTERNAL | | | | | mmol/L | LAB | | + +---------+ + + + | K | 4.0 | 3.6 - 5.1 | EXTERNAL | | | | | mmol/L | LAB | | + +---------+ + + + | Cl | 97 | 95 - 112 mmol/L | EXTERNAL | | | | | | LAB | | + +---------+ + + + | CO2 | 28 | 19 - 31 mmol/L | EXTERNAL | | | | | | LAB | | + +---------+ + + + | Anion Gap | 21.0 | 7 - 21 mmol/L | EXTERNAL | | | | | | LAB | | + +---------+ + + + | Estimated | 92 | 60 - 140 mg/dL | EXTERNAL | | | GFR [...]
--- OUTSIDE RECORDS SUMMARY | ~2019-06-14 | XMS | Clinical Summary ---
Demographics + + + | Address | [address] | | | [place] [address] | + + + | Home Phone [...] Providers + +------+ + | Care Band Splicer Name | Role | Phone | + +------+ + | Iqra Peralta MD | PCP | | + +------+ + Source Comments [facility] Allergies + + + + + [...] | + + + +---------+------+------+-------+ | omeprazole 20 mg | Take 1 [...] | + + + +---------+------+------+-------+ | metFORMIN 1,000 mg | Take 1,000 mg by | | 0 | | | Activ | | oral tablet | mouth two times | | | | | e | | | daily. | | | | | | + + + +---------+------+------+-------+ | ergocalciferol | Take 50,000 Units by | | 0 | | | Activ | | 50,000 unit oral | mouth three times | | | | | e | | capsule | weekly. | | | | | | + + + +---------+------+------+-------+ | buPROPion XL 150 | take 1 tablet by | | 0 | 05/2 | | Activ | | mg oral tablet | mouth once daily | | | 1/20 | | e | | extended release 24 | WITH 300 MG TABLET | | | 18 | | | | hr | to equal 450 mg | | | | | | | | daily | | | | | | + + + +---------+------+------+-------+ | buPROPion XL 300 | Take 300 mg by mouth | | 0 | | | Activ | | mg oral tablet | once daily. Take | | | | | e | | extended release 24 | with 150 mg tablet | | | | | | | hr | to equal 450 mg | | | | | | | | daily | | | | | | + + + +---------+------+------+-------+ | pramipexole 1.5 mg | Take 1.5 mg by mouth | | 0 | | | Activ | | oral tablet | two times daily. | | | | | e | + + + +---------+------+------+-------+ | ferrous sulfate | Take 1 tablet by | | 0 | | | Activ | | 325 mg (65 mg iron) | mouth two times | | | | | e | | oral tablet | daily. | | | | | | + + + +---------+------+------+-------+ | dilTIAZem SR 24 | Take 1 capsule by | | 0 | | | Activ | | hour release 360 mg | mouth once daily at | | | | | e | | oral | bedtime. | | | | | | | capsule,extended | | | | | | | | release 24 hr | | | | | | | + + + +---------+------+------+-------+ | liraglutide 0.6 | Inject 0.6 mg [...] + + +---------+------+------+-------+ | metoprolol | Take 1 tablet by | 90 | 0 | 02/1 | | Activ | | succinate 25 mg oral | mouth once daily at | tablet | | 02/18 | | e | | tablet extended | bedtime. | | | 19 | | | | release 24 | Indications: | | | | | | | hrIndications: | hypertension, | | | | | | | hypertension, | Ventricular Rate | | | | | | | ventricular rate | Control in Atrial | | | | | | | control in atrial | Fibrillation | | | | | | | fibrillation | | | | | | | + + + +---------+------+------+-------+ | beclomethasone 80 | Inhale 2 puffs by | | 0 | | | Activ | | mcg/actuation | mouth two times | | | | | e | | inhalation HFA | daily. | | | | | | | aerosol breath | | | | | | | | activated | | | | | | | + + + +---------+------+------+-------+ | levothyroxine 88 | Take 88 mcg by mouth | | 0 | | | Activ | | mcg oral tablet | before breakfast. | | | | | e | + + + +---------+------+------+-------+ | enoxaparin 60 | Inject 0.6 mL under | 30 | 1 | 04/2 | | Activ | | mg/0.6 mL | the skin (SUBC) | Syringe | | 2/20 | | e | | subcutaneous | every twelve hours. | | | 19 | | | | syringeIndications: | Indications: Deep | | | | | | | Deep Vein Thrombosis | Vein Thrombosis | | | | | | | Prevention | Prevention | | | | | | + + + +---------+------+------+-------+ | naloxone 4 | Instill 1 spray in | 2 each | 0 | 04/2 | | Activ | | mg/actuation nasal | nose as needed for | | | 2/20 | | e | | spray,non-aerosolInd | suspected opioid | | | 19 | | | | ications: Closed | overdose. Repeat | | | | | | | bicondylar fracture | with second device | | | | | | | of right femur, | into other nostril | | | | | | | initial encounter | after 2-3 minutes if | | | | | | | ([facility]) | no or minimal | | | | | | | | response. | | | | | | + + + +---------+------+------+-------+ | nystatin 100,000 | Apply to affected | 15 g | 0 | 04/2 | | Activ | | unit/gram topical | area two times | | | 2/20 | | e | | powderIndications: | daily. Apply to | | | 19 | | | | soft tissue | candidal lesions | | | | | | | infection | until lesions have | | | | | | | | healed. Indications: | | | | | | | | skin infection | | | | | | + + + +---------+------+------+-------+ | polyethylene | Mix 1 packet and | 30 | 0 | 04/2 | | Activ | | glycol 17 gram oral | take orally once | packet | | 2/20 | | e | | powder in | daily. | | | 19 | | | | packetIndications: | | | | | | | | Closed bicondylar | | | | | | | | fracture of right | | | | | | | | femur, initial | | | | | | | | encounter (HCC) | | | | | | | + + + +---------+------+------+-------+ | senna-docusate | Take 1 tablet by | 60 | 0 | 04/2 | | Activ | | 8.6-50 mg oral | mouth two times | tablet | | 07/21 | | e | | tabletIndications: | daily. | | | 19 | | | | Closed bicondylar | | | | | | | | fracture of right | | | | | | | | femur, initial | | | | | | | | encounter (HCC) | | | | | | | + + + +---------+------+------+-------+ | warfarin 5 mg oral | Take 10 mg by mouth | 30 | 1 | 04/2 | | Activ | | tablet | daily until INR | tablet | | 08/18 | | e | | | therapeutic. Then, | | | 19 | | | | | take 10 [...] PCP Office | | | | | | + + + +---------+------+------+-------+ | albuterol 90 | Inhale 1-2 puffs by | 18 g | 0 | 04/2 | | Activ | | mcg/actuation | mouth every four | | | 3/20 | | e | | inhalation HFA | hours as needed | | | 19 | | | | aerosol inhaler | (wheezing/SOB). | | | | | | + + + +---------+------+------+-------+ | JARDIANCE 25 mg | TAKE 1 TABLET BY | 90 | 3 | 08/ | | Activ | | oral tablet | MOUTH DAILY | tablet | | 20 | | e | | | | | | 19 | | | + + + +---------+------+------+-------+ Active Problems + + + | Problem | Noted Date | + + + | Fracture of distal end of right femur | 09/15/2018 | + + + | Obesity with alveolar hypoventilation | 09/15/2018 | + + + | Atrial fibrillation | 09/15/2018 | + + + | Diabetic nephropathy associated with type 2 diabetes mellitus | 09/15/2018 | + + + | MRSA cellulitis | 09/15/2018 | + + + + + | Overview: Hx leg cellulitis | + + + + + | Hypothyroid | 09/15/2018 | + + + | Morbid obesity with BMI of 60.0-69.9, adult | 02/25/2016 | + + + + [...] + + + + | Overview: 02/07/2015 initial weight 427 lbs | + + + + + | CPAP/BiPAP dependence | 02/07/2015 | + + + | Essential hypertension, benign | 02/07/2015 | + + + | Posttraumatic stress disorder | 10/11/2013 | + + + | Major depressive disorder, recurrent episode, moderate | 10/11/2013 | + + + | Sleep apnea | 09/22/2013 | + + + | Asthma | 09/22/2013 | + + + | Nephrotic syndrome | 09/22/2013 | + + + Resolved Problems + + + + | Problem | Noted | Resolved | | | Date | Date | + + + + | Physical deconditioning | 01/26/20 | | | | 16 | 8 [...] + + | 03/28/ | Abstract | Surgery | Clinic, Surgery | | | 2019 | | | | | +--------+ + + + + from Last 3 Months Family History + + +------+ + | Medical History | Relation | Name | Comments | + + +------+ + | Diabetes | Father | | | + + +------+ + | Heart Disease | Father | | CA 78 | + + +------+ + | [...] | + + + + + | Monofilament foot | | | | | exam | 9 | | | + + + + + | Diabetic eye exam | | | | | | 9 | | | + + + + + | Hemoglobin A1c | | 07/09/2018, 01/20/2018, | | | | 9 | 06/16/2017, Additional history | | | | | exists | | + + + + + | Influenza (Flu) | | 02/16/2018, 03/16/2017, | | | vaccination (#1) | 9 | 02/19/2017, Additional history | | | | | exists | | + + + + + | Diabetes | | 07/09/2018, 03/10/2018, | | | self-management | 0 | 06/17/2017, Additional history | | | education | | exists | | + + + + + | Medical attention | | 08/02/2018 | | | for nephropathy | 0 | | | + + + + + | Creatinine | | 09/21/2018, 09/20/2018, | | | | 0 | 09/19/2018, Additional history | | | | | exists | | + + + + + | Cholesterol | | 02/04/2019, 01/20/2018, | | | screening | 4 | 10/21/2017, Additional history | | | | | exists | | + + + + + | Pneumococcal | Completed | 02/16/2018, 11/18/2013, | | | vaccination | | 07/02/2013, Additional history | | | | | exists | | + + + + + Implants + +------+--------+ +--------+--------+--------+ | Implanted | Type | Area | Manufacture | Device | Shelf | Model | | | | | r | | Expira | / | | | | | | Identi | tion | Serial | | | | | | fier | Date | / Lot | + +------+--------+ +--------+--------+--------+ | Dion Seamguard Implanted: | | N/A: | | | 09/28/ | [id number] | | Qty: 4 on 02/07/2015 by | | Abdome | | | 2017 | [id number] / | | Dori Reed MD at [facility] | | n | | | | | | INPATIENT REV LOC | | | | | | /[id number] | | | | | | | | 329 | + +------+--------+ +--------+--------+--------+ | Dion SolaresguardImplanted: Qty: | | N/A: | | | 08/29/ | [id number] | | 2 on 02/07/2015 by Brianna | Dianelys De Leon | | | 2017 | [id number] / | | Dori Ferris MD at [facility] INPATIENT | | n | | | | | | REV LOC | | | | | | /[id number] | | | | | | | | 327 | + +------+--------+ +--------+--------+--------+ | Nail 11.5mm 34cm Femur | | | RIOS & | | 10/19/ | [id number] | | Clarkia-Nail Intramedullary | | | NEPHEW | | 2025 | 34 / | | Retrograde Titanium - | | | | | | /[id number] | | [id number]: Qty: 1 on | | | | | | [id number] | | 2018 by Shyam Mortensen | | | | | | | | MD Timo at [facility] INPATIENT REV | | | | | | | | LOC | | | | | | | + +------+--------+ +--------+--------+--------+ | Screw Bone 5mm 85mm Trigen | | | GABRIEL & | | 08/29/ | [id number] | | Femur Low Profile - | | | NEPHEW | | 2024 | 85 / | | [id number]: Qty: 1 on | | | | | | /[id number] | | 2018 by Shyam Mortensen | | | | | | 4549 | | MD Timo at [facility] INPATIENT REV | | | | | | | | LOC | | | | | | | + +------+--------+ +--------+--------+--------+ | Screw Bone 5mm 90mm Trigen | | | GABRIEL & | | 08/07/ | [id number] | | Femur Low Profile - | | | NEPHEW | | 2025 | 90 / | | [id number]: Qty: 1 on | | | | | | /[id number] | | 2018 by Shyam Mortensen | | | | | | 6278 | | MD Timo at [facility] INPATIENT REV | | | | | | | | LOC | | | | | | | + +------+--------+ +--------+--------+--------+ | Screw Bone 5mm 67mm Trigen | | | RIOS & | | 03/31/ | [id number] | | Femur Low Profile - | | | NEPHEW | | 2022 | 67 / | | [id number]: Qty: 1 on | | | | | | /[id number] | | 2018 by Shyam Mortensen | | | | | | 2512 | | MD Timo at [facility] REV | | | | | | | | LOC | | | | | | | + +------+--------+ +--------+--------+--------+ | Screw Bone 5mm 32.5mm Trigen | | | GABRIEL & | | | [id number] | | Femur Low Profile - | | | NEPHEW | | 2028 | 32 / | | [id number]: Qty: 1 on | | | | | | /[id number] | | 2018 by Shyam Mortensen | | | | | | 1220 | | MD Timo at [facility] INPATIENT REV | | | | | | | | LOC | | | | | | | + +------+--------+ +--------+--------+--------+ | Screw Bone 5mm 32.5mm Trigen | | | GABRIEL & | | | [id number] | | Femur Low Profile - | | | NEPHEW | | 2028 | 32 / | | [id number]: Qty: 1 on | | | | | | /[id number] | | 2018 by Shyam Mortensen | | | | | | 5722 | | MD Timo at [facility] INPATIENT REV | | | | | | | | LOC | | | | | | | + +------+--------+ +--------+--------+--------+ | Nail Cap Set ScrewImplanted: | | | RIOS & | | 06/06/ | [id number] | | Qty: 1 on 2018 by | | | NUVIA | | 9 | 00 / | | Shyam Mortensen MD at [facility] | | | | | | /[id number] | | INPATIENT REV LOC | | | | | | 6643 | + +------+--------+ +--------+--------+--------+ Results Not on filefrom Last 3 Months Insurance + +--------+ +--------+-------+---------+--------+ | Payer | Benefi | Subscriber | Effect | Phone | Address | Type | | | t Plan | ID | phuong | | | | | | / | | Dates | | | | | | Group | | | | | | + +--------+ +--------+-------+---------+--------+ | FIREBOAT OPERATOR MEDICAID | FIREBOAT OPERATOR | xxxxxxxx | 06/07/19 | | | Medica | | | [place] | | 13-Pre | | | id | | | [place] | | sent | | | | + +--------+ +--------+-------+---------+--------+ | MEDICAID OHP | OHP | xxxxxxxx | 06/01/19 | | | Medica | | | GREATE | | 14-Pre | | | id | | | R | | sent | | | | | | [place] | | | | | | | | [facility]HAV | | | | | | | | HLTH | | | | | | + +--------+ +--------+-------+---------+--------+ + +--------+ +--------+ + + | Guarantor Name | Accoun | Relation to | Date | Phone | Billing Address | | | t Type | Patient | of | | | | | | | | | | + +--------+ +--------+ + + | Aspen Darden | Person | Self | [birth year] | | | | al/Fam | | 1971 | [phone] | [place] [address] | | | kevin | | | 4 (Home) | | + +--------+ +--------+ + + | Aspen Darden | Behavi | Self | [birth year] | | 8th | | | oral | | 1970 | [phone] | [place] [address] | | | Health | | | 4 (Home) | | + +--------+ +--------+ + + Advance Directives + + + + + | Code Status | Date | Date | Comments | | | Activated | Inactivated | | + + + + + | Full Code | 09/15/2018 | 09/21/2018 | | | | 1:05 AM | 6:50 PM | | + + + + + + + + +---+ | | | | | + + + +---+ | Full Code | 02/07/2015 | 02/08/2015 | | | | 3:18 PM | 6:22 PM | | + + + +---+ + + + +---+ | | | | | + + + +---+ | Full Code | 02/07/2015 | 02/07/2015 | | | | 6:21 AM | 3:18 PM | | + + + +---+ + + + +---+ | | | | | + + + +---+ | Full Code | 02/07/2015 | 02/07/2015 | | | | 6:17 AM | 6:21 AM | | + + + +---+ + + + +---+ | | | | | + + + +---+ | Full Code | 08/23/2014 | 08/23/2014 | | | | 8:38 AM | 10:07 PM | | + + + +---+
[~2019-06-14 02:00] MED LIST changes: +AMOX TR-K CLV1 EAC1 PO; +DOXYCYCLINE MO100 MG PO; +OXYCODONE HCL5 MG PO
--- OUTSIDE RECORDS SUMMARY | 2019-06-14 02:58 | XMS ---
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 10/26/2018-Current PHONE: [phone] CAMERON STARKEY Internal Medicine 01/25/2018-Current BARBARA PHONE: [phone] Phuong De Dios Primary Care 10/26/2018-Current PHONE: [phone] DR NATALIA DOMINGUEZ Primary Care 07/30/2016-Current PHONE: [phone] Guidelines [facility] Date: 06/03/2019 Care Coordination: Currently engaged in mental health services, therapy and case management, with [facility].\T\nbsp; Please contact [facility] with mental health concerns.\T\nbsp; [facility]: [phone]\T\nbsp;\T\nbsp; Care History Medical/Surgical 12/27/2018 [facility] - PATIENT HAS AN APT WITH DR STARKEY ON 12/27/18 @ 3:45PM. 04/16/2018 [facility] - Patient is currently established with [facility]. If patient is seen in the ED during business hours. Please contact [facility] at [facility]. Care Recommendation: This patient has had [...] providing care. E.D. VISIT COUNT (12 MO.) 2 Nino Baez 4 [facility]. TOTAL 6 NOTE: Visits indicate total known visits. ED/UCC VISIT TRACKING (12 MO.) 06/14/2019 02:00 NEV[facility]LE Car TYPE: Emergency 06/02/2019 20:06 Nino CLINE TYPE: Emergency COMPLAINT: - L LEG PAIN 05/30/2019 20:00 Nino CLINE TYPE: Emergency COMPLAINT: - LT LEG WOUNDS - UNS OPEN WOUND LT LOWER LEG SEQUELA DIAGNOSES: 0. Unspecified open wound, left lower leg, sequela 1. Unspecified open wound, left lower leg, sequela 3. Cellulitis of left lower limb 4. Methicillin suscep staph infct causing dis classd elswhr 5. Klebsiella pneumoniae as the cause of diseases classd elswhr 6. Lymphedema, not elsewhere classified 7. 1 Type 2 diabetes mellitus without complications 8. Other chronic pain 12/25/2018 14:03 NEVILLE Smith [place] TYPE: Emergency COMPLAINT: - R LEG ISSUES DIAGNOSES: - Personal history of nicotine dependence - halfway (current) use of anticoagulants - Pain in right knee - Unspecified asthma, uncomplicated - Other retirement (current) drug therapy - Allergy status to penicillin - Personal history of pneumonia (recurrent) - Allergy status to sulfonamides status - Lymphedema, not elsewhere classified - Anxiety disorder, unspecified 09/14/2018 12:44 NEVILLE Smith [place] TYPE: Emergency COMPLAINT: - R LEG PAIN DIAGNOSES: - Personal history of nicotine dependence - Unspecified asthma, uncomplicated - Pain in right leg - Morbid (severe) obesity due to excess calories - Slip/trip w/o falling due to step into hole or opening, init - Anxiety disorder, unspecified - Hypothyroidism, unspecified - halfway (current) use of anticoagulants - Other retirement (current) drug therapy - halfway (current) use of opiate analgesic - Allergy status to sulfonamides status - Allergy status to penicillin - Unsp fracture of lower end of right femur, init for clos fx 08/12/2018 11:57 NEVILLE Car TYPE: Emergency COMPLAINT: - L LEG PAIN INPATIENT VISIT TRACKING (12 MO.) 06/02/2019 23:29 Nino CLINE TYPE: Medical Surgical COMPLAINT: - LLE CELLULITIS LYMPHEDEMA DIAGNOSES: 0. Pain in leg, unspecified 1. Cellulitis of left lower limb 2. Chronic atrial fibrillation, unspecified 3. Body mass index (BMI) 60.0-69.9, adult 4. Lymphedema, not elsewhere classified 5. Klebsiella pneumoniae as the cause of diseases classd elswhr 6. Methicillin suscep staph infct causing dis classd elswhr 7. Essential (primary) hypertension 8. Hyperlipidemia, unspecified 9. Gastro-esophageal reflux disease without esophagitis 10. Anxiety disorder, unspecified 11. Major depressive disorder, single episode, unspecified 12. 1 Type 2 diabetes mellitus with hyperglycemia 13. Hypothyroidism, unspecified 14. Obstructive sleep apnea (adult) (pediatric) 15. Morbid (severe) obesity due to excess calories 16. Do not resuscitate 17. halfway (current) use of anticoagulants 09/14/2018 23:27 [facility] TYPE: Internal Medicine DIAGNOSES: [id number]. fall, right distal femur frac closed, bariatric . Disp fx of medial condyle of right femur, [place] [id number]. Unsp fracture of lower end of right femur, [place] fx [id number]. 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 - halfway (current) use of inhaled steroids - Unspecified asthma, uncomplicated - Cellulitis of left lower limb - halfway (current) use of oral hypoglycemic drugs - Bariatric surgery status - Abnormal coagulation profile - Sleep apnea, unspecified - Chronic atrial fibrillation - Major depressive disorder, single episode, unspecified - Morbid (severe) obesity due to excess calories - 1 Type 2 diabetes mellitus without complications - Venous insufficiency (chronic) (peripheral) - Personal history of pneumonia (recurrent) - Essential (primary) hypertension - Hypothyroidism, unspecified - Allergy status to penicillin - Unsp Escherichia coli as the cause of diseases classd elswhr - 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
[2019-06-14] MEDS ORDERED: NYSTATIN15 GM TOP (03:29)
[2019-06-14] MEDS ORDERED: ANCEF IV (04:19)
== END 2019-06-14 05:20 | disposition home or self-care (01) ==
LOC: ED 02:00
DX: T82.594A Other mechanical complication of infusion catheter, initial encounter (principal); J45.909 Unspecified asthma, uncomplicated; F41.0 Panic disorder [episodic paroxysmal anxiety]; F32.9 Major depressive disorder, single episode, unspecified; G47.30 Sleep apnea, unspecified; Z87.891 Personal history of nicotine dependence; Z88.0 Allergy status to penicillin; Z88.2 Allergy status to sulfonamides; Z79.899 Other long term (current) drug therapy; Z79.01 Long term (current) use of anticoagulants
CPT/HCPCS: 99283

== ENCOUNTER 2022-09-27 12:03 | Emergency (ER) | payer OTHER ==
[~2022-09-27] VITALS: Ht 160 cm; Wt 159.2 kg
[~2022-09-27 12:03] MED LIST changes: +ANCEF IV; +NYSTATIN15 GM TOP
--- OUTSIDE RECORDS SUMMARY | 2022-09-27 12:06 | XMS ---
PreManage Notification: DEANN JOSÉ Security Help Aid Events No recent Security Events currently on file CRITERIA MET - Group Notification - PDMP CARE PROVIDERS -Az DMD Dentist: Data Management Analyst Current PHONE: [phone] CAMERON STARKEY Internal Medicine 01/25/2018-Current PHONE: Unknown Care Guidelines exist for the following facilities: [facility] ( 06/03/2019 ) Care History Medical/Surgical 06/14/2019 [facility] - PATIENT HAS AN APT WITH DR STARKEY ON 06/22/18 FOR FOLLOW UP APT TO ED VISIT. 12/27/2018 [facility] - PATIENT HAS AN APT WITH DR STARKEY ON 12/27/18 @ 3:45PM. 04/16/2018 [facility] - Patient is currently established with [facility]. If patient is seen in the ED during business hours. Please contact CHWs at [facility]. Care Recommendation: This patient has had [...] providing care. E.D. VISIT COUNT (12 MO.) 1 [facility]. TOTAL 1 NOTE: Visits indicate total known visits. ED/UCC VISIT TRACKING (12 MO.) 09/27/2022:04 [facility] [place] TYPE: Emergency COMPLAINT: - LEGS BURNING AND HURTING REFERRAL FROM URGENT CARE INPATIENT VISIT TRACKING (12 MO.) No inpatient visits to display in this time frame [email or web address]
[2022-09-27 21:00] VITALS: BP 158/98
== END 2022-09-27 21:00 | disposition home or self-care (01) ==
LOC: ED 12:03
DX: L03.116 Cellulitis of left lower limb (principal); L03.115 Cellulitis of right lower limb; I10 Essential (primary) hypertension; E03.9 Hypothyroidism, unspecified; J45.909 Unspecified asthma, uncomplicated; E66.01 Morbid (severe) obesity due to excess calories; Z68.44 Body mass index [BMI] 60.0-69.9, adult; Z87.891 Personal history of nicotine dependence; Z88.0 Allergy status to penicillin; Z88.2 Allergy status to sulfonamides; Z79.899 Other long term (current) drug therapy; Z79.84 Long term (current) use of oral hypoglycemic drugs; Z79.01 Long term (current) use of anticoagulants
CPT/HCPCS: 36415; 80053; 83605; 85025; J0878

== ENCOUNTER 2023-12-03 11:57 | Inpatient (IN) | payer OTHER ==
[~2023-12-03] VITALS: Ht 160 cm; Wt 158.3 kg
[~2023-12-03 11:57] MED LIST changes: +VITAMIN D21250 MCG PO; -VITAMIN D250000 UNIT PO
[2023-12-03] MEDS ORDERED: ALBUTEROL SULFATE 0.083% 3 ML VIAL ONE (12:12)
[2023-12-03 12:14] LABS: BASOPHILS 0.6 % (0-2); EOSINOPHILS 0.1 % (0-6); HEMATOCRIT 41.5 % (35.0-50.0); HEMOGLOBIN 13.1 g/dL (12.0-18.0); LYMPHOCYTES 6.9 % (24-44); MCH 28.4 (27-36); MCHC 31.5 g/dl (30-36); MCV 90.1 fl (81-99); MONOCYTES 7.9 % (0-12); NEUTROPHILS 84.5 % (39-80); PLATELET COUNT 372 K/uL (140-440); RBC 4.61 M/ul (4.3-5.7); RDW 17.3 (10.5-15.0)
[2023-12-03] MEDS ORDERED: ALBUTEROL SULFATE 0.083% 3 ML VIAL INH ONE (12:15)
[2023-12-03] MEDS ORDERED: methylPREDNISolone SOD SUCC 125 MG/2 ML VIAL IV ONE (12:15)
[2023-12-03 12:34] LABS: ALBUMIN 3.2 g/dL (3.4-5.0); ALBUMIN/GLOBULIN RATIO 0.74 (1.1-2.4); BILIRUBIN, TOTAL 1.3 ng/dL (0.2-1.0); BUN/CREATININE RATIO 12.35 (6.0-28.6); CALCIUM 8.4 mg/dL (8.5-10.1); CREATININE, SERUM 1.7 mg/dL (0.55-1.02); PROTEIN, TOTAL 7.5 g/dL (6.4-8.2)
[2023-12-03] MEDS ORDERED: FUROSEMIDE 100 MG/10 ML VIAL IV ONE (13:00)
[2023-12-03 13:02] LABS: INFLUENZA B NAA NEGATIVE (NEGATIVE); RESPIRATORY SYNCYTIAL VIR NAA NEGATIVE (NEGATIVE)
[2023-12-03 13:19] LABS: HCO3, BLOOD GAS 30.6 mmol/L (22-26); O2 SATURATION, BLOOD GAS 95.7 % (95.0-100.0); OXYGEN RECEIVED, BLOOD GAS 60%; PH, BLOOD GAS 7.28 (7.35-7.45); PO2, BLOOD GAS 76 mmHg (80-100); TOTAL CO2, BLOOD GAS 32.6
[2023-12-03] MEDS ORDERED: AZITHROMYCIN 500 MG in DEXTROSE 5% 250 ML IV SCH (15:08)
[2023-12-03 15:23] LABS: BASE EXCESS, BLOOD GAS 3.2 mmol/L (-2-2); HCO3, BLOOD GAS 30.9 mmol/L (22-26); O2 SATURATION, BLOOD GAS 92.1 % (95.0-100.0); OXYGEN RECEIVED, BLOOD GAS 6LPM; PCO2, BLOOD GAS 59.2 mmHg (35-45); PH, BLOOD GAS 7.33 (7.35-7.45); PO2, BLOOD GAS 66 mmHg (80-100); TOTAL CO2, BLOOD GAS 32.7
[2023-12-03 15:43] VITALS: BP 118/77
--- NOTE | 2023-12-03 15:45 | NUR ---
Patient arrives to CCU via stretcher, hovermat used to transfer to hospital bed. Patient A+O, VSS, on 6L NC at this time with spo2 varying from 85-95% via NC. Lung sounds noted to have rales present scattered. HR 90's, Afib rhythm, patient states uses eliquis at home. GI/ WNL, patient wishes to use purewick d/t limited mobility at this time and frequent falls at home (3 in past week). patient states takes 3 norco tablets a day d/t chronic knee pain. Pedro Pablo scaling red skin noted on bilat legs, and redness under pannus and breasts. Patient states pain to L AC IV, flushed well, IV ABX infusion switched to R AC IV. Cory pharmacist in room for med rec.
[2023-12-03] MEDS ORDERED: CYCLOBENZAPRINE10 MG PO (15:57)
[2023-12-03] MEDS ORDERED: TRULICITY1.5 MG/0.5 SUB-Q (15:59)
[2023-12-03] MEDS ORDERED: POTASSIUM CHLO10 MEQ PO (15:59)
[2023-12-03] MEDS ORDERED: ALBUTEROL/IPRATROPIUM 3 ML NEB INH SCH (16:00)
[2023-12-03] MEDS ORDERED: HYDROCODON-ACE1 EA11 PO (16:00)
[2023-12-03] MEDS ORDERED: DESVENLAFAXINE100 M3 PO (16:00)
[2023-12-03] MEDS ORDERED: QVAR REDIHALE10.6 G1 INH (16:01)
[2023-12-03] MEDS ORDERED: ELIQUIS5 MG PO (16:01)
[2023-12-03] MEDS ORDERED: ATORVASTATIN CA80 MG PO (16:03)
[2023-12-03] MEDS ORDERED: FERROUS SULFAT325 M2 PO (16:04)
[2023-12-03] MEDS ORDERED: LOSARTAN POTASS25 MG PO (16:05)
--- NOTE | 2023-12-03 16:45 | NUR ---
Patient refuses bipap at this time due to family being present "only for 5 minutes and then I'll put it back on" this RN and RT encourage patient to use bipap and oxygen and patient states no at this time. Will continue to encourage use. SPO2 93% on 6L NC at this time. Roll changed and linens changed, new purewick in place. Skin assessed with Elsa ALVAREZ. New gown and blankets provided. Large incontinent urine noted- charted. Call light in reach, on telemetry monitoring and visible from RN station
--- NOTE | 2023-12-03 17:00 | NUR ---
Patient agreeable to returning to Bipap use. Assisted with application. Patient states no needs at this time, closes eyes. Even and unlabored respirations. Purewick in place. Family at bedside. Call light in reach.
--- NOTE | 2023-12-03 17:30 | NUR ---
RN IN ROOM TO CHECK CBG PRN PT IS DIABETIC AND DINNER TRAY DELIVERED. PT ON BIPAP RESTING IN BED, WAKES MINIMALLY FOR FINGER STICK, NOT HOLDING UP HAND TO ASSIST. DINNER HELD R/T LETHARGY AND BIPAP USE AT THIS TIME. PRIMARY RN MADE AWARE.
--- NOTE | 2023-12-03 18:29 | NUR ---
Dr Andres called to get orders for SS insulin, BMP now, RBVO to clarify and this RN entered orders.
[2023-12-03] MEDS ORDERED: IBLOOD GLUCOSE TEST STRIP 1 EA TEST XX PRN (18:30)
[2023-12-03] MEDS ORDERED: GLUCAGON,HUMAN RECOMBINANT 1 MG/ML VIAL SUB-Q PRN (18:30)
[2023-12-03] MEDS ORDERED: DEXTROSE 50% 50 ML SYR IV PRN ×2 (18:30)
[2023-12-03] MEDS ORDERED: DEXTROSE 5% 1,000 ML IV PRN (18:30)
--- NOTE | 2023-12-03 18:50 | NUR ---
This RN in to assist lab with draw, patient tolerates well
[2023-12-03 19:05] LABS: ANION GAP 9.8 (7-21); BUN/CREATININE RATIO 16.66 (6.0-28.6); CALCIUM 8.4 mg/dL (8.5-10.1); CREATININE, SERUM 1.26 mg/dL (0.55-1.02); POTASSIUM 5.8 mmol/L (3.5-5.1)
[2023-12-03 20:03] VITALS: BP 114/83
--- NOTE | 2023-12-03 20:11 | NUR ---
HANDOFF REPORT RECEIVED FROM DAY SHIFT RN. IN PT ROOM FOR ASSESSMENT. PT IS LAYING AWAKE IN BED ON PHONE. PT FRIEND AT BEDSIDE. PT IS ON 3L NC, SAT IS 93%. PT DENIES FEELING ANY SOB. PT DENIES ANY PAIN. PT BP IS 120/82, HR 104, SPO2 93%, AND RR 21. PT STATES SHE IN HUNGRY AND REQUESTING A CUP OF ICE. NO FUTHER NEEDS AT THIS TIME.
[2023-12-03] MEDS ORDERED: INSULIN LISPRO 100 UNIT/ML ML SUB-Q SCH (21:00)
[2023-12-03] MEDS ORDERED: IBLOOD GLUCOSE TEST STRIP 1 EA TEST VI SCH (21:00)
[2023-12-03 21:30] VITALS: BP 149/90
[2023-12-03] MEDS ORDERED: methylPREDNISolone SOD SUCC 40 MG/ML VIAL IV SCH (22:00)
--- NOTE | 2023-12-03 22:00 | NUR ---
PT REQUESTING TO GET OUT OF BED. PT PROVIDED WITH WALKER, AND ONE PERSON ASSIST. PT BEDDING CHANGED. PT ON 3L NC, SATURATION IN HIGH 90'S, PT DOES NOT DESAT UPON EXCERTION, PT TOLERATES WELL. NEW PUREWICK PLACED. PT PROVIDED WITH EXTRA PILLOWS AND WARM BLANKET. NO FURTHER NEEDS AT THIS TIME. CALL LIGHT WITHIN REACH.
--- NOTE | 2023-12-03 22:30 | NUR ---
PT COMPLAINS OF HAVING PAIN. PT ALSO STATES SHE WILL NOT BE ABLE TO SLEEP WITHOUT HER MUSCLE RELAXER. THIS RN DISCUSSED WITH DR ABOUT PT HOME MEDICATIONS. RECEIVED VERBAL ORDER FOR MEDS, PLEASE SEE EMAR.
[2023-12-03 23:00] VITALS: BP 130/85
[2023-12-03] MEDS ORDERED: CYCLOBENZAPRINE HCL 10 MG TAB PO SCH (23:35)
[2023-12-03] MEDS ORDERED: PRAMIPEXOLE DIHYDROCHLORIDE 1 MG TAB PO SCH (23:45)
[2023-12-03] MEDS ORDERED: HYDROCODONE/ACETA 7.5/325 TAB PO SCH (23:45)
[2023-12-04] VITALS (11 sets, daily range): BP systolic 115–138; BP diastolic 71–91
--- NOTE | 2023-12-04 00:30 | NUR ---
PT ASSISTED TO BATHROOM WITH FWW AND ONE PERSON ASSIST. PT ON 3L NC, DENIES FEELING ANY SOB, TOLERATS ACTIVITY WELL WITH NO DESATURATIONS. PT BEDDING CHANGED, NEW PURWICK PLACED. RT IN ROOM TO PLACE BIPAP. BIPAP SETTING 20/5, AT A RATE OF 16. PT SPO2 LEVEL IS 96%. NO FURTHER NEEDS AT THIS TIME. CALL LIGHT WITHIN REACH.
--- NOTE | 2023-12-04 02:43 | NUR ---
PT RESTING IN BED WITH EYES CLOSED. PT BIPAP IS ON; SETTINGS 20/5. PT SPO2 IS 94%, PULSE 96, RR 17. CALL LIGHT WITHIN REACH. NO NEEDS AT THIS TIME.
--- NOTE | 2023-12-04 04:19 | NUR ---
RT IN PT ROOM TO ADJUST BIPAP AND NEB TREATMENT PER EMAR. DISCUSSED WITH RT IF VBG WAS NECCESARY FOR AM. AFTER DISCUSSION A VBG ORDER WAS PLACED. RT ADJUSTED PT BIPAP SETTINGS TO 18/7. PT SPO2 IS 96%.
[2023-12-04 05:19] LABS: PH, VENOUS 7.409 (7.31-7.41)
[2023-12-04 05:23] LABS: HEMATOCRIT 39.4 % (35.0-50.0); HEMOGLOBIN 13.1 g/dL (12.0-18.0); MCH 29.1 (27-36); MCHC 33.1 g/dl (30-36); MCV 87.9 fl (81-99); PLATELET COUNT 279 K/uL (140-440); RBC 4.48 M/ul (4.3-5.7)
[2023-12-04 05:36] LABS: ANION GAP 11.8 (7-21); CALCIUM 8.3 mg/dL (8.5-10.1); POTASSIUM 4.8 mmol/L (3.5-5.1)
[2023-12-04 05:38] LABS: BANDS, MANUAL DIFF 10; LYMPHOCYTES, MANUAL DIFF 7; MONOCYTES, MANUAL DIFF 2; NEUTROPHILS, MANUAL DIFF 81
--- NOTE | 2023-12-04 06:39 | NUR ---
PT TAKEN OFF BIPAP, NOW ON 4L NC. VSS, TOLERATING WELL. PT REQUESTING TO USE RESTROOM AND THEN GET INTO CHAIR. PT ASSISTED WITH BOTH. PT HAS NO EPISODES OF DESATURATION AND DENIES ANY SOB. PT HAS NO FURTHER NEEDS AT THIS TIME. CALL LIGHT WITHIN REACH.
--- NOTE | 2023-12-04 07:35 | EKG ---
[facility] [address] [place], [place] [address] Signed Atrial fibrillation Possible Anterior infarct , age undetermined Abnormal ECG When compared with ECG of 01-FEB-2020 15:13, QRS axis shifted right Confirmed by Donovan Márquez MD ([id number]) on 12/04/2023 7:35:47 AM Electronically Signed By: DONOVAN MÁRQUEZ 12/04/23 0735 PATIENT NAME: ANDREE JOSÉLUPILLO RUELAS Electrocardiogram DATE OF : 66 PHYSICIAN: DONOVAN MÁRQUEZ REPORT #: [id number] REPORT IS CONFIDENTIAL AND NOT TO BE RELEASED WITHOUT AUTHORIZATION
--- NOTE | 2023-12-04 07:45 | NUR ---
REPORT RECIEVED FROM FITNESS CONSULTANT RN. PATIENT CURRENTLY SITTING UP IN THE CHAIR RESTING ON 4L NC. PATIENT CALLS APPROPRIATELY. NO NEEDS AT THIS TIME.
[2023-12-04] MEDS ORDERED: LOSARTAN POTASSIUM 25 MG TAB PO SCH (09:00)
[2023-12-04] MEDS ORDERED: FUROSEMIDE 40 MG/4 ML VIAL IV SCH (09:00)
[2023-12-04] MEDS ORDERED: dilTIAZem HCL 180 MG CAPCR PO SCH ×2 (09:00→21:00)
[2023-12-04] MEDS ORDERED: APIXABAN 5 MG TAB PO SCH (09:00)
[2023-12-04] MEDS ORDERED: METOPROLOL SUCCINATE 25 MG TABCR PO SCH (09:00)
--- NOTE | 2023-12-04 09:50 | NUR ---
PATIENT UP TO THE BATHROOM WITH RN ASSIST. PATIENT HAD A MEDIUM BM. PATIENT IS STABLE ON HER FEET AND REPORTS HER NORMAL LEVEL OF STRENGTH AND WALKING. PATIENT BACK TO THE CHAIR AND TOLERATED WELL. VITALS DONE AND MEDICATIONS ADMINISTERED. PATIENT ON 4L NC AT THSI TIME. WILL TRY TO TITRATE PATIENTS OXYGEN NEEDED. PATIENT POSITIONED WITH PILLOW SUPPORT. MD IN THE AM TO DISCUSS PLAN OF CARE. PATIENT IS FORGETFUL AT TIMES AND THOUGHT SHE WAS IN THE HOSPITAL FOR HER HEART. RE-EDUCATED PATIENT ON SITUATION AND COPD EXACERBATION. NO OTHER QUESTIONS AT THIS TIME. CALL LIGHT IN REACH.
--- NOTE | 2023-12-04 09:53 | NUR ---
PATIENT IS SITTING IN THE RECLINER. PATIENT IS TEARY EYED BECAUSE OF THE DISCUSSION SHE HAD WITH THE MD. PATIENT FEELS SHE MAY NEEDS A HIGHER LEVEL OF CARE. THE RIVETING MACHINE OPERATOR AUTOMATIC ASSURED THE PATIENT SHE IS GETTING EXCELLENT CARE HERE AT THE HOSPITAL AND STAFF ARE MONITORING THE PATIENT CLOSELY. PATIENT HAS FRIENDS AND FAMILY THAT ARE AVAILABLE NEEDED. PATIENTS DEMOGRAPHICS ARE CORRECT. PATIENT CAN AFFORD HOUSING AND FOOD. PATIENT IS ABLE TO HER ADLS WITH LITTLE HELP. PATIENT IS STILL ABLE TO DRIVE HER CAR TO GET AROUND TOWN. PATIENT USES DME,WALKER WHEELCHAIR,CPAP,AMD COMMODE. PATIENT IS ON OXYGEN HERE, BUT NORMALLY DOES NOT USE O2 AT HOME. PATIENT DOES NOT WANT PLACEMENT AT THIS TIME AND HOPES TO GO TO THE PATIENT'S HOME ON DISCHARGE.
--- NOTE | 2023-12-04 11:15 | NUR ---
UR CLINICAL REVIEW: SERA, MEETS FOR INPATIENT COPD EOCMARTHA/NAILA INPT 12/03/23 @ 1507 ORDER MATCHES STATUS AUTH PENDING CLINICAL REVIEW, CLINICALS FAXED TO [facility] THIS AM. PLAN TO RETURN TO HOME AT DC. 12/07/23
--- NOTE | 2023-12-04 11:39 | NUR ---
PATIENT ASSISTED UP TO THE BATHROOM WITH RN ASSIST. PATIENT IN WITH NO ISSUES. PATIENT DENIES SOB WITH EXERTION. PATIENT NOW SITTING BACK IN CHAIR AT THIS TIME. PATIENTS FAMILY ARRIVED AND VISITING WITH THE,. RT IN TO DO NEB TREATMENT. SCDS WERE APPLIED PER MD AND PATIENT REQUEST. CALL LIGHT IN REACH.
[2023-12-04] MEDS ORDERED: PHARMACY RENAL DOSE ADJUSTMENT 1 DOSE MISC PO SCH (12:00)
--- NOTE | 2023-12-04 12:45 | NUR ---
PATIENT ASSSISTED BACK TO BED. PATIENTS FAMILY LEFT AND WILL BE BACK LATER. RT CALLED TO COME ASSIST PATIENT WITH BIPAP SETTINGS/FIT. PATIENT HAS SCDS IN PLACE. PATIENT DENIES ANY OTHER NEEDS AT THIS TIME. CALL LIGHT IN REACH.
--- NOTE | 2023-12-04 15:56 | NUR ---
PATIENT WOKE FROM HER NAP AND UP TO THE BATHROOM WITH STAND-BY FOR CORD ASSISTANCE. PATIENT NOW RESTING IN THE CHAIR. AFTERNOON MEDICATIONS ADMINISTERED. PATIENTS FRIENDS AT THE BEDSIDE. SCDS IN PLACE. PATIENT HAS HER PHONE ON LAP AND CALL LIGHT IN REACH. PATIENT DENIES ANY NEEDS AT THIS TIME.
--- NOTE | 2023-12-04 18:18 | NUR ---
PATIENT SITTING IN THE CHAIR. GOWN CHANGED PER REQUEST. PATIENT INSULIN GIVEN. PATIENT EATING SNACK AT THIS TIME AND WAITING FOR DINNER FROM FRIEND. PATIENT DENIES ANY OTHER NEEDS AT THIS TIME. CALL LIGHT IN REACH.
--- NOTE | 2023-12-04 19:45 | NUR ---
PATIENT UP TO BATHROOM TO VOID, NOTED STOOL SMEAR ON WHITE CHUCKS, CHANGED, PATIENT STANDBY ASSIST WITH HER FOUR WHEEL WALKER. PATIENT HAS UNSTEADY GAIT, GOOD STRENGTH. BACK TO RECLINER NOTED OXYGEN SATURATION 98%, TITRATED OXYGEN TO 3L FROM 3.5L PER N.C.
--- NOTE | 2023-12-04 21:22 | NUR ---
PATIENT UP TO BATHROOM STANDBY ASSIST FOR LINE MANAGEMENT, PATIENT GAIT MORE STEADY NOW. PATIENTS FRIEND IN ROOM TO VISIT AND SPEND THE NIGHT, BLANKETS AND PILLOW PROVIDED. DISCUSSED WEARING BIPAP TONIGHT, SHE SAID "I KNOW"
--- NOTE | 2023-12-04 23:13 | NUR ---
PATIENT UPTO BATHROOM ONE PERSON ASSIST VOIDED, PATIENT THEN ASSISTED TO BED ADJUSTED BED TO HER PREFERENCE, BLANKETS, BLINDS, SIDE TABLE, PATIENT REQUESTED ALL BED RAILS UP, CALL LIGHT IN REACH, PATIENTS FRIEND IS RESTING ON THE ROOM COUCH. PATIENT SAID WHEN EVER R.T. IS READY, SHE IS READY TO TRY THE BIPAP FOR AWHILE. CALL LIGHT IN REACH, NO OTHER REQUESTS OR CONCERNS AT THIS TIME. PATIENT IS ALERT AND ORIENTED. ASSESSMENT COMPLETE.
--- NOTE | 2023-12-05 02:55 | NUR ---
PATIENT CALLED NURSES STATION, SHE APPEARED ANXIOUS AND TEARFUL RESTING IN BED, SHE SAID, "I WANT TO GET UP AND WALK, IF THATS OK?" THIS RN SAID "SURE" PATIENT OFF BIPAP, UP TO AMBULATE IN ROOM ON ROOM AIR OXYGEN DESATURATED TO 84% WITH ACTIVITY. PATIENT AT REST WITH COUGH AND DEEP BREATHING ABLE TO MAINTAIN 90% AND GREATER OXYGEN SATURATION. PATIENT PLACED BACK TO 2L OXYGEN N.C. TO AMBULATE INTO BATHROOM TO VOID. SHE THEN ASKED TO SIT UP IN RECLINER FOR NOW. CALL LIGHT IN REACH, NO OTHER CONCERNS.
[2023-12-05 02:58] VITALS: BP 117/77
--- NOTE | 2023-12-05 04:29 | NUR ---
PATIENT CALLED NURSES STATION TO REQUEST TO AMBULATE IN HALLS, PATIENT PLACED TO PORTABLE OXYGEN TANK AT 2L OXYGEN SHE HAS BEEN ON AT REST. WHILE AMBULATING IN HALLS PATIENT DESATURATED TO 85% OXYGEN, OXYGEN TITRATED UP TO 3L PER N.C., PATIENT MAINTAINED 89-92% OXYGEN SATURATION WITH AMBULATION, SHE AMBULATED THE LENGTH OF CCU 4 TIMES, THEN [facility] PATIENT NOTED TO REQUIRE TWO REST BREAKS DURING ACTIVITY, PATIENT AMBULATED WITH HER OWN FOUR WHEEL WALKER FROM HOME WITH LINE MANAGEMENT ASSIST.
[2023-12-05 05:52] VITALS: BP 125/74
--- NOTE | 2023-12-05 07:40 | NUR ---
PATIENT SHIFT REPORT RECIEVED FROM SENIOR TREASURY CONSULTANT RN. PATIENT ALERT AND ORIENTED AND SITTING IN THE CHAIR WATCHING TV AT THIS TIME. PATIENT HAS CALL LIGHT IN REACH AND CALLS APPROPRIATELY.
--- NOTE | 2023-12-05 09:30 | NUR ---
PATIENT EATING BREAKFAST. PATIENT HAS FAMILY AT THE BEDSIDE. PATIENT REPORTS FEELING BACK TO HER NORMAL AND WOULD REALLY LIKE TO GO HOME TODAY. PATIENT REPORTS SHE HAS HAD HOME OXYGEN BEFORE AND CURRENTLY USES [facility] FOR HER CPAP. PO CARDIAC MEDICATIONS GIVEN WAITING FOR MEDICATIONS TO BE IN EFFECT AND THEN WILL GET PATIENT UP AND WALK THE HALLWAYS AND MONITOR PATIENTS VITALS AND HOW PATIENT FEELS. PATIENT AGREEABLE TO PLAN OF CARE. PATIENT UP TO BATHROOM AND TOELRATED WELL. PATIENT BACK IN CHAIR AND FRESH WATER PROVIDED. ROLA TORRESIGHT IN REACH. NO OTHER NEEDS AT THIS TIME.
--- NOTE | 2023-12-05 12:00 | NUR ---
PATIENT WALKED UP AND DOWN THE HALLWAY 4 TIMES AND TOLERATED WELL. PATIENTS HR 105-116 WITH ACTIVITY. PATIENTS HR HIT 120 1 TIME. PATIENT ASYMPTOMATIC. PATIENT SPO2 91% ON 3L. PATIENT STATES "THIS FEELS LIKE MY NORMAL, IM NOT SHORT OF BREATH WITH WALKING, BUT I TAKE A BREAK JUST I WOULD AT HOME IF NEEDED". PATIENT BACK TO ROOM AND SITTING IN THE CHAIR. PATIENTS HR 80-90'S AT REST. RT IN THE ROOM TO DO NEB TREATMENT AND DO OXYGEN QUALIFIER. UPDATED MD AND PER MD HE WILL DISCHARGE PATIENT. PATIENT REALLY WANTS TO GO HOME TODAY. PATIENT UPDATED ON PLAN OF CARE. NO OTHER NEEDS AT THIS TIME.
[2023-12-05] MEDS ORDERED: PREDNISONE20 MG PO (12:26)
[2023-12-05] MEDS ORDERED: LASIX40 MG PO (12:27)
[2023-12-05 13:15] VITALS: BP 124/76
--- NOTE | 2023-12-05 13:30 | NUR ---
PATIENT ATE LUNCH AND VISITING WITH A FRIEND AT THE BEDSIDE. PATIENT READY TO DISCHARGE HOME. STAFF WORKING ON GETTING HOME OXYGEN FOR DISCHARGE. PATIENT UPDATED ON PLAN OF CARE. NO OTHER NEEDS AT THIS TIME.
--- NOTE | 2023-12-05 14:00 | NUR ---
PATIENT UP TO BATHROOM TO GET DRESSED. IVS DCD AND PATIENT TOLERATED WELL. PATIENT BELONGIGNS GATHERED AND PATIENT AWAITING RIDE.
--- NOTE | 2023-12-05 14:45 | NUR ---
PATIENT BELONGIGNS SENT WITH PATIENT AND FRIEND. PATIENT WHEELED TO FRONT BY THIS RN AND PATIENT SENT HOME WITH [facility] OXYGEN TANK. PATIENT DENIES ANY FURTHER QUESTIONS. PATIENT ON 3L FOR ACTIVITY. [facility] WILL BE TO HOUSE APPROX. 3PM. FAMILY AT THE HOUSE TO MEET THEM THERE TO SETUP EQUIPMENT.
== END 2023-12-05 14:28 | disposition home or self-care (01) | DRG 291 ==
LOC: ED 11:57 → CCU 15:08
PROVIDERS: Emergency Medicine; ADMIT Internal Medicine; ATTEND Internal Medicine
DX: I11.0 Hypertensive heart disease with heart failure (principal); J96.21 Acute and chronic respiratory failure with hypoxia; J44.1 Chronic obstructive pulmonary disease with (acute) exacerbation; Z68.44 Body mass index [BMI] 60.0-69.9, adult; I50.9 Heart failure, unspecified; F17.210 Nicotine dependence, cigarettes, uncomplicated; G47.30 Sleep apnea, unspecified; J45.909 Unspecified asthma, uncomplicated; E66.9 Obesity, unspecified; F41.0 Panic disorder [episodic paroxysmal anxiety]; F32.A Depression, unspecified; E11.9 Type 2 diabetes mellitus without complications; E87.5 Hyperkalemia; I48.91 Unspecified atrial fibrillation; E03.9 Hypothyroidism, unspecified; Z87.01 Personal history of pneumonia (recurrent); Z98.890 Other specified postprocedural states; Z88.2 Allergy status to sulfonamides; Z88.0 Allergy status to penicillin; Z79.84 Long term (current) use of oral hypoglycemic drugs; Z79.899 Other long term (current) drug therapy; Z79.01 Long term (current) use of anticoagulants; Z79.890 Hormone replacement therapy
CPT/HCPCS: 36415; 36600; 71045; 80048; 80053; 82800; 82803; 83880; 84484; 85025; 87502; 93005; 93010; 94640; 94660; 94761; A9270; J0456; J1815; J1940; J2919; J7060; U0002

== ENCOUNTER 2024-07-18 17:33 | Emergency (ER) | payer OTHER ==
[~2024-07-18] VITALS: Ht 160 cm; Wt 137.9 kg
[~2024-07-18 17:33] MED LIST changes: +ATORVASTATIN CA80 MG PO; +DESVENLAFAXINE100 M3 PO; +ELIQUIS5 MG PO; +FERROUS SULFAT325 M2 PO; +HYDROCODON-ACE1 EA11 PO; +QVAR REDIHALE10.6 G1 INH; +TRULICITY1.5 MG/0.5 SUB-Q
[2024-07-18] MEDS ORDERED: DAPAGLIFLOZIN5 MG PO (17:54)
[2024-07-18] MEDS ORDERED: PRAMIPEXOLE DI1.5 MG PO (17:54)
[2024-07-18] MEDS ORDERED: CALCITONIN-SAL3.7 ML NAS (17:54)
[2024-07-18] MEDS ORDERED: OXYCODONE-ACET1 EAC1 PO (17:56)
[2024-07-18 18:33] LABS: BILIRUBIN, URINE NEGATIVE (negative); BLOOD/HGB, URINE NEGATIVE (Negative); KETONE, URINE NEGATIVE (Negative); LEUK ESTERASE, URINE NEGATIVE (negative); NITRITE, URINE NEGATIVE (negative)
[2024-07-18 18:45] LABS: BACTERIA, URINE 2+ /hpf (negative); CASTS, URINE NONE SEEN \\lpf; COLLECTION TYPE, URINE CLEAN CATCH; CRYSTALS, URINE NONE SEEN (0-1+); EPITHELIAL CELLS, URINE SQUAMOUS 1+ /lpf (0-1+); REFLEX CULTURE, URINE Yes (No)
[2024-07-18] MEDS ORDERED: PERCOCET 5-3251 EACH PO (20:39)
[2024-07-18] MEDS ORDERED: CEFDINIR300 MG PO (20:41)
[2024-07-18] MEDS ORDERED: OXYCODONE/ACETAMINOPHEN 1 TAB HOME.PACK PO ONE (20:45)
[2024-07-18] MEDS ORDERED: CEFDINIR 300 MG HOME.PACK PO ONE (20:45)
[2024-07-18 21:01] VITALS: BP 145/89
== END 2024-07-18 21:04 | disposition home or self-care (01) ==
LOC: ED 17:33
PROVIDERS: Emergency Medicine
DX: S22.051A Stable burst fracture of T5-T6 vertebra, initial encounter for closed fracture (principal); W19.XXXA Unspecified fall, initial encounter; J45.909 Unspecified asthma, uncomplicated; E66.9 Obesity, unspecified; Z87.891 Personal history of nicotine dependence; Z88.0 Allergy status to penicillin; Z88.2 Allergy status to sulfonamides; Z79.899 Other long term (current) drug therapy; Z79.01 Long term (current) use of anticoagulants; Z79.890 Hormone replacement therapy
CPT/HCPCS: 72128; 81001; 87088; 99284-25